=== PATIENT | female | born 1940 | race African-American/Black ===

== ENCOUNTER 2017-06-12 12:07 | Observation (INO) | payer OTHER ==
--- NOTE | 2017-06-12 12:40 | RAD REPORT ---
EXAM DESCRIPTION: RAD - Chest Single View - 06/12/2017 12:35 pm CLINICAL HISTORY: Difficulty breathing, shortness of breath COMPARISON: February 2017 TECHNIQUE: AP portable chest image was obtained 1224 hours . FINDINGS: Lung volumes are normal for portable imaging. Cardiac silhouette is enlarged since the bienvenido or study. Vasculature and lung markings have increased in prominence even when adjusting for differen kamaljit between AP and PA technique. Trachea is midline. No measurable pleural effusion and no pneumothor ax. No gross bony abnormality seen. No acute aortic findings suspected. IMPRESSION: Mild failure/ volume overload pattern.
[2017-06-12] MEDS ORDERED: FUROSEMIDE 40 MG/4 ML VIAL ONE (12:56)
[2017-06-12 12:57] LABS: Absolute Lymphocytes (CBC) 1.3 K/uL (0.7-4.9); Absolute Monocytes 1.2 K/uL (0.1-1.3); Absolute Neutrophil 6.7 K/uL (1.8-8.0); Basophils % 0.4 % (0-1.3); Eosinophils % 2.5 % (0-4.4); Hematocrit 31.5 % (36.0-45.0); Lymphocytes % 13.9 % (15.3-44.8); MCH 24.8 pg (27.0-35.0); MCV 80.3 fL (80-100); MPV 8.1 fL (7.6-11.3); Monocytes % 12.3 % (3.3-12.3); RBC Red Blood Cell Count 3.92 M/uL (3.86-4.86)
[2017-06-12 13:07] LABS: Protime INR 1.15
[2017-06-12 13:11] LABS: Potassium 4.2 mEq/L (3.6-5.0)
[2017-06-12 13:17] LABS: Albumin 3.6 g/dL (3.2-5.5); Bilirubin Direct 0.2 mg/dL (0-0.2); Bilirubin Total 0.5 mg/dL (0.3-1.2); Protein, Total 7.8 g/dL (6.0-8.3)
[2017-06-12 13:46] LABS: Urine Blood NEGATIVE (NEG); Urine Glucose NEGATIVE (NEG); Urine Protein NEGATIVE (NEG)
--- NOTE | 2017-06-12 14:50 | ER ---
Nurse's Notes [facility] Name: Gloria Longoria Age: 76 yrs Sex: Female : 1940 Arrival Date: 06/12/2017 Time: 12:10 Bed 4 Private MD: Diagnosis: Systolic (congestive) heart failure;Non-ST elevation (NSTEMI) myocardial infarction Presentation: 06/12 12:03 Presenting complaint: EMS states: dyspnea that started today. Diminished lung sounds to sv lower lobes. 93% RA, pt given A\T\A treatment, O2 sat up to 100%. waveform capnography-40. BP 149/70 HR 70s, RR-16 they were 20 on arrival. EKG-1st AVB. BS-159. 12:12 Transition of care: patient was not received from another setting of care. Onset of sv symptoms was June 12, 2017. Care prior to arrival: 1 IV attempted by EMS but unsuccessful. 12:12 Method Of Arrival: EMS: [facility] sv 12:12 Acuity: MALAIKA 2 sv Historical: - Allergies: 12:14 Sulfa (Sulfonamide Antibiotics); sv - PMHx: 12:14 CHF; colon cancer; Diabetes - IDDM; Hypertension; Pneumonia; sv - PSHx: 12:14 eye sx; Cholecystectomy; removed colon due to cancer; R eye; Hysterectomy; Appendectomy;sv - Immunization history:: Adult Immunizations up to date. - Social history:: The patient lives at home, Smoking status: Patient/guardian denies using tobacco. Screenin:15 Abuse screen: Denies threats or abuse. Denies injuries from another. Nutritional hb screening: No deficits noted. Tuberculosis screening: No symptoms or risk factors identified. Fall Risk Total Tinsley Fall Scale indicates Low Risk Score (25-44 pts). Fall prevention measures have been instituted. Side Rails Up X 2 Frequent Obs/Assesments occuring Family Present and informed to notify staff if they need to leave bedside As available Patient and Family Educated on Fall Prevention Program and strategies. Assessment: 12:10 General: Appears in no apparent distress. distressed, Behavior is cooperative, anxious. hb Pain: Denies pain. Neuro: Level of Consciousness is awake, alert, obeys commands, Oriented to person, place, time, situation. Cardiovascular: Heart tones S1 S2 present Capillary refill < 3 seconds Patient's skin is warm and dry. Rhythm is regular. Respiratory: Airway is patent Trachea midline Respiratory effort is even, labored, Respiratory pattern is regular, symmetrical, Breath sounds with crackles bilaterally. GI: No signs and/or symptoms were reported involving the gastrointestinal system. : No signs and/or symptoms were reported regarding the genitourinary system. EENT: No signs and/or symptoms were reported regarding the EENT system. Derm: No signs and/or symptoms reported regarding the dermatologic system. Skin is intact, is healthy with good turgor, Skin is pink, warm \T\ dry. Musculoskeletal: No signs and/or symptoms reported regarding the musculoskeletal system. 13:00 Reassessment: Patient appears in no apparent distress at this time. Patient and/or hb family updated on plan of care and expected duration. Pain level reassessed. Patient is alert, oriented x 3, equal unlabored respirations, skin warm/dry/pink. Patient denies pain at this time. Patient states symptoms have improved. 13:45 Reassessment: trop 0.77, Dr. Barry notified. Pt resting comfortably, denies pain. hb Family at bedside. 14:40 Reassessment: Patient appears in no apparent distress at this time. Patient and/or hb family updated on plan of care and expected duration. Pain level reassessed. Patient is alert, oriented x 3, equal unlabored respirations, skin warm/dry/pink. Patient denies pain at this time. 15:00 Reassessment: Patient appears in no apparent distress at this time. Patient and/or sv family updated on plan of care and expected duration. Pain level reassessed. Patient is alert, oriented x 3, equal unlabored respirations, skin warm/dry/pink. Pt up to the bedside commode. 15:21 Reassessment: Patient appears in no apparent distress at this time. Patient and/or sv family updated on plan of care and expected duration. Pain level reassessed. Patient is alert, oriented x 3, equal unlabored respirations, skin warm/dry/pink. Vital Signs: 12:14 BP 145 / 66; Pulse 75; Resp 20; Temp 98.7; Pulse Ox 87% on R/A; sv 13:00 BP 146 / 64; Pulse 72; Resp 19; Pulse Ox 96% on 2 lpm NC; hb 13:52 BP 149 / 61; Pulse 69; Resp 15; Pulse Ox 98% on 2 lpm NC; hb 14:41 BP 133 / 92; Pulse 72; Resp 17; Pulse Ox 96% on 2 lpm NC; hb 15:00 BP 134 / 51; Pulse 71; Resp 16; Pulse Ox 100% on 2 lpm NC; sv 12:14 Pt placed on O2 \T\ 2L per NC. O2 sat up to 94%. sv ED Course: 12:10 Patient arrived in ED. sv 12:10 Adan Barry MD is Attending Physician. gs 12:10 Esperanza Saenz, TEAGAN is Primary Nurse. sv 12:13 Triage completed. sv 12:15 Patient has correct armband on for positive identification. Placed in gown. Bed in low sv position. Call light in reach. Side rails up X2. piper helper on. Pulse ox on. NIBP on. Door closed. Head of bed elevated. 12:15 Arm band placed on right wrist. hb 12:16 Initial lab(s) drawn, by ED staff, sent to lab. Inserted saline lock: 20 gauge in left sv antecubital area, using aseptic technique. Blood collected. 12:34 X-ray completed. Portable x-ray completed in exam room. Patient tolerated procedure kp1 well. 13:33 Urine Dipstick--Ancillary (enter results) Sent. hb 14:25 Basic Metabolic Panel Sent. sv 14:25 BNP Sent. sv 14:25 CBC with Diff Sent. sv 14:25 LFT's Sent. sv 14:25 Magnesium Sent. sv 14:25 PT-INR Sent. sv 14:25 Troponin (emerg Dept Use Only) Sent. sv 14:25 XRAY Chest (1 view) Sent. sv 14:49 Rosas Singleton DO is Hospitalizing Provider. gs 15:35 No provider procedures requiring assistance completed. Patient admitted, IV remains in sv place. intact. 15:39 EKG done, by ED staff, reviewed by Adan Barry MD. ag Administered Medications: 12:40 Drug: Lasix 40 mg Route: IVP; Site: left antecubital; hb 14:25 Follow up: Response: No adverse reaction sv Point of Care Testing: Blood Glucose: 12:15 Blood Glucose: 141 mg/dL; sv Ranges: Output: 13:00 Urine: 1000ml (Voided); Total: 1000ml. sv Outcome: 14:50 Decision to Hospitalize by Provider. gs 15:38 Admitted to Tele accompanied by tech, family with patient, via stretcher, room 211, sv with oxygen, with chart, Report called to Margo CANDELARIA 15:38 Condition: stable 15:38 Instructed on the need for admit. 15:50 Patient left the ED. sv Signatures: Esperanza Saenz RN RN sv Maria Elena Harper Heather, RN RN Mireya Bates 1 Adan Barry MD MD gs Corrections: (The following items were deleted from the chart) 12:13 12:03 Presenting complaint: EMS states: dyspnea that started today. Diminished lung sv sounds to lower lobes. 93% RA, pt given A\T\A treatment, O2 sat up to 100%. waveform capnography-40. BP 149/70 HR 70s, RR-16 sv 12:16 12:03 Presenting complaint: EMS states: dyspnea that started today. Diminished lung sv sounds to lower lobes. 93% RA, pt given A\T\A treatment, O2 sat up to 100%. waveform capnography-40. BP 149/70 HR 70s, RR-16 they were 20 on arrival. EKG-1st AVB. sv
--- NOTE | 2017-06-12 14:50 | EDPHYS ---
Physician Documentation [facility] Name: Gloria Longoria Age: 76 yrs Sex: Female : 1940 Arrival Date: 06/12/2017 Time: 12:10 Bed 4 Private MD: ED Physician Adan Barry HPI: 06/12 14:41 This 76 yrs old Black Female presents to ER via EMS with complaints of Breathing gs Difficulty. 14:41 The patient has shortness of breath at rest. Onset: The symptoms/episode began/occurred gs yesterday, and became worse and became persistent. Duration: The symptoms are continuous. The patient's shortness of breath is aggravated by exertion. Associated signs and symptoms: Pertinent negatives: chest pain. Severity of symptoms: At their worst the symptoms were moderate in the emergency department the symptoms are unchanged. The patient has experienced similar episodes in the past, a few times. The patient has not recently seen a physician. Historical: - Allergies: 12:14 Sulfa (Sulfonamide Antibiotics); sv - PMHx: 12:14 CHF; colon cancer; Diabetes - IDDM; Hypertension; Pneumonia; sv - PSHx: 12:14 eye sx; Cholecystectomy; removed colon due to cancer; R eye; Hysterectomy; Appendectomy;sv - Immunization history:: Adult Immunizations up to date. - Social history:: The patient lives at home, Smoking status: Patient/guardian denies using tobacco. ROS: 14:41 All other systems are negative. gs Exam: 14:41 Head/Face: Normocephalic, atraumatic. Eyes: Pupils equal round and reactive to light, gs extra-ocular motions intact. Lids and lashes normal. Conjunctiva and sclera are non-icteric and not injected. Cornea within normal limits. Periorbital areas with no swelling, redness, or edema. ENT: Nares patent. No nasal discharge, no septal abnormalities noted. Tympanic membranes are normal and external auditory canals are clear. Oropharynx with no redness, swelling, or masses, exudates, or evidence of obstruction, uvula midline. Mucous membranes moist. Neck: Trachea midline, no thyromegaly or masses palpated, and no cervical lymphadenopathy. Supple, full range of motion without nuchal rigidity, or vertebral point tenderness. No Meningismus. Chest/axilla: Normal chest wall appearance and motion. Nontender with no deformity. No lesions are appreciated. 14:41 Abdomen/GI: Soft, non-tender, with normal bowel sounds. No distension or tympany. No guarding or rebound. No evidence of tenderness throughout. Back: No spinal tenderness. No costovertebral tenderness. Full range of motion. Skin: Warm, dry with normal turgor. Normal color with no rashes, no lesions, and no evidence of cellulitis. 14:41 Constitutional: The patient appears alert, awake. 14:41 Cardiovascular: Rate: normal, Rhythm: regular, Pulses: no pulse deficits are appreciated. 14:41 ECG was reviewed by the Attending Physician. 14:41 Respiratory: moderate respiratory distress is noted, Respirations: labored breathing, Breath sounds: rales, are located in both bases, decreased breath sounds, are located in both bases. 14:41 Musculoskeletal/extremity: Circulation is intact in all extremities. Edema, 1+ to the left midcalf and right midcalf is noted. 14:41 Skin: Exam negative for acute changes. 14:41 Neuro: Exam negative for acute changes, focal neuro deficits, motor deficits, sensory deficits. Vital Signs: 12:14 BP 145 / 66; Pulse 75; Resp 20; Temp 98.7; Pulse Ox 87% on R/A; sv 13:00 BP 146 / 64; Pulse 72; Resp 19; Pulse Ox 96% on 2 lpm NC; hb 13:52 BP 149 / 61; Pulse 69; Resp 15; Pulse Ox 98% on 2 lpm NC; hb 14:41 BP 133 / 92; Pulse 72; Resp 17; Pulse Ox 96% on 2 lpm NC; hb 15:00 BP 134 / 51; Pulse 71; Resp 16; Pulse Ox 100% on 2 lpm NC; sv 12:14 Pt placed on O2 \T\ 2L per NC. O2 sat up to 94%. sv MDM: 12:21 Patient medically screened. 14:41 Differential diagnosis: CHF exacerbation, Chronic Obstructive Pulmonary Disease gs Myocardial Infarction pneumonia. Data reviewed: vital signs, nurses notes, and as a result, I will admit patient. 14:53 ED course: prezas wants obs. 06/12 12:19 Order name: Glucose, Ancillary Testing; Complete Time: 12:20 EDAR 06/12 12:21 Order name: Basic Metabolic Panel 06/12 12:21 Order name: BNP 06/12 12:21 Order name: CBC with Diff 06/12 12:21 Order name: LFT's 06/12 12:21 Order name: Magnesium 06/12 12:21 Order name: PT-INR 06/12 12:21 Order name: Troponin (emerg Dept Use Only) 06/12 12:59 Order name: CBC with Automated Diff; Complete Time: 13:06 EDMS 06/12 13:11 Order name: Basic Metabolic Panel; Complete Time: 14:02 EDMS 06/12 13:14 Order name: Protime (+INR); Complete Time: 14:02 EDMS 06/12 13:17 Order name: Liver (Hepatic) Function; Complete Time: 14:02 EDMS 06/12 13:17 Order name: Magnesium; Complete Time: 14:02 EDMS 06/12 13:22 Order name: Urine Dipstick--Ancillary (enter results) 06/12 12:21 Order name: XRAY Chest (1 view) 06/12 12:21 Order name: EKG; Complete Time: 12:22 06/12 12:21 Order name: Cardiac monitoring; Complete Time: 12:27 06/12 12:21 Order name: EKG - Nurse/Tech; Complete Time: 13:33 06/12 12:21 Order name: IV Saline Lock; Complete Time: 12:27 06/12 12:21 Order name: Labs collected and sent; Complete Time: 12:27 06/12 12:21 Order name: O2 Per Protocol; Complete Time: 12:27 06/12 12:21 Order name: O2 Sat Monitoring; Complete Time: 12:27 06/12 12:21 Order name: Urine Dipstick-Ancillary (obtain specimen); Complete Time: 13:33 06/12 12:41 Order name: RAD; Complete Time: 13:06 EDAR 06/12 13:25 Order name: BNP B-Type Natriuretic Peptide; Complete Time: 14:02 EDAR 06/12 13:36 Order name: Troponin (Emerg Dept Use Only); Complete Time: 14:02 EDMS 06/12 13:46 Order name: Urine Dipstick-Ancillary; Complete Time: 14:02 EDMS EC:41 Rate is 75 beats/min. Rhythm is regular. MT interval is prolonged. QRS interval is gs normal. T waves are Normal. No ST changes noted. Clinical impression: NSR w/ Non-specific ST/T Changes. Interpreted by me. Administered Medications: 12:40 Drug: Lasix 40 mg Route: IVP; Site: left antecubital; 14:25 Follow up: Response: No adverse reaction sv Point of Care Testing: Blood Glucose: 12:15 Blood Glucose: 141 mg/dL; sv Ranges: Critical Glucose Levels:Adult <50 mg/dl or >400 mg/dl <40 mg/dl or >180 mg/dl Disposition: 14:41 Critical Care:. gs Disposition: 06/12/17 14:50 Hospitalization ordered by Rosas Singleton for Observation. Preliminary diagnosis are Systolic (congestive) heart failure, Non-ST elevation (NSTEMI) myocardial infarction. - Bed requested for Telemetry/MedSurg (observation). - Status is Observation. sv - Condition is Stable. - Problem is an acute exacerbation. - Symptoms have improved. UTI on Admission? No Critical care time excluding procedures: :41 Critical care time: Bedside Care: 10 minutes, Consultation: 10 minutes, Family gs Intervention: 10 minutes. Total time: 30 minutes Signatures: Dispatcher [employer] EDPaola Mireles Stephanie, RN RN sv Page, Corey, PA PA cp Baxter, Heather, TEAGAN CANDELARIA Adan Barry MD MD
[2017-06-12] MEDS ORDERED: D50W 25 GM/50 ML SYRINGE IV PRN (14:55)
[2017-06-12] MEDS ORDERED: ONDANSETRON 4 MG/2 ML VIAL IV PRN (14:55)
[2017-06-12] MEDS ORDERED: GLUCAGON 1 MG/VIAL IM PRN (14:55)
--- NOTE | 2017-06-12 15:09 | P.HP ---
Certification for Inpatient Patient admitted to: Observation With expected LOS: <2 Midnights Patient will require the following post-hospital care: Home Health Services Practitioner: I am a practitioner with admitting privileges, knowledge of patient current condition, hospital course, and medical plan of care. Services: Services provided to patient in accordance with Admission requirements found in Title 42 Section 412.3 of the Code of Federal Regulations Patient History Date of Service: 06/12/17 Primary Care Provider: Dr. Chaudhari; Cardiology-Dr. Murphy Reason for admission: Shortness of breath History of Present Illness: 76-year-old female presented with shortness of breath. Patient with past medical history of CHF, diastolic dysfunction, diabetes, hypertension, hyperlipidemia, and depression. Patient presented to the ER with shortness of breath. This started early this morning. She reported a mild cough with this. The shortness of breath persisted. Her daughter left to go to [employer]. When she got up to go to the bathroom her shortness of breath worsened. She denied any significant chest pain. No headaches, dizziness or syncope noted. Patient reports that she is taking her diuretic therapy. She is not on a fluid restriction at home. Patient came to the ER for further evaluation. In the ER the patient was evaluated. Blood pressure stable. She was slightly tachypneic. Room-air saturations were about 87%. On lab white count 9.5, hemoglobin 9.7. Sodium 140, potassium 4.2, creatinine 0.9 with a GFR 72. Magnesium 2.0. Initial troponin was elevated at 0.77. BNP slightly elevated at 239. Chest x-ray showed mild to moderate pulmonary edema. Previous lab and radiology reviewed. Her last echocardiogram done January showed his ejection fraction of 61%. She was treated for diastolic CHF at that time. In July of 2016 she had a stress test which showed no stress-induced ischemia. Due and findings the patient was admitted for further evaluation and treatment. When I saw the patient in the ER, she was resting comfortably. She denied any significant shortness of breath or chest pain at that time. She was on a nasal cannula. She does not smoke or drink. Allergies Sulfa (Sulfonamide Antibiotics) Allergy (Intermediate, Verified 11/21/15 00:47) Shortness of breath Home medications list reviewed: Yes Home Medications: Bimatoprost [Lumigan] 1 gtt LEFT EYE BID 12/29/12 Brimonidine Tartrate/Timolol [Combigan 0.2%-0.5% Eye Drops] 1 gtt LEFT EYE DAILY 12/29/12 Carvedilol 25 mg PO BID 12/29/12 Fluoxetine HCl [Prozac] 40 mg PO BEDTIME 12/29/12 Gabapentin [Neurontin*] 400 mg PO TID 12/29/12 Insulin Detemir [Levemir] 66 units SQ BEDTIME 12/29/12 Magnesium Oxide [Magnesium] 400 mg PO DAILY 12/29/12 Metformin HCl [Glucophage*] 1,000 mg PO BID 12/29/12 Omeprazole [Prilosec] 20 mg PO BID 12/29/12 Potassium Chloride [Micro-K] 10 meq PO Q12H 12/29/12 Simvastatin 20 mg PO BEDTIME 12/29/12 traMADol HCL [Ultram*] 50 mg PO TID PRN #90 tab 07/26/16 Aspirin [Aspirin EC 81 MG] 81 mg PO DAILY #30 tablet.dr 02/18/17 Furosemide [Lasix] 40 mg PO BIDL #60 tab 02/18/17 Guaifenesin [Mucinex] 600 mg PO BIDP PRN #20 tablet.er 02/18/17 Losartan Potassium 50 mg PO DAILY #30 tablet 02/18/17 - Past Medical/Surgical History Diabetic: Yes -: Glaucoma -: CHF, diastolic dysfunction -: HTN -: GERD -: DM Neuropathy -: History of Colon CA -: Diabetes mellitus type 2 -: Fatty liver with Morbid Obesity -: Cholecystectomy -: Colon resection -: Appendectomy -: Hysterectomy -: Right Rotator Cuff Repair -: Colectomy Psychosocial/ Personal History: She lives at home. Her daughter helps her at home. - Family History Mother -: Cancer Notes: colon - Social History Smoking Status: Never smoker Alcohol use: No CD- Drugs: No Caffeine use: Yes Place of Residence: Home Review of Systems General: Weakness, As per HPI Eyes: Unremarkable ENT: Unremarkable Respiratory: Shortness of Breath, SOB with Excertion, As per HPI Cardiovascular: Edema, Unremarkable Gastrointestinal: Unremarkable Genitourinary: Unremarkable Musculoskeletal: Unremarkable Integumentary: As per HPI Neurological: Weakness, As per HPI Lymphatics: Unremarkable Physical Examination - Physical Exam General: Alert, In no apparent distress, Oriented x3, Cooperative HEENT: Atraumatic, Normocephalic, Mucous membr. 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) Neck: Supple, No Thyromegaly Respiratory: Crackles/rales (To the bases bilateral) Cardiovascular: Normal pulses, Regular rate/rhythm Gastrointestinal: Normal bowel sounds, Soft and benign, Non-distended, No tenderness, No masses, No rebound, No guarding Musculoskeletal: No contractures, No erythema, No tenderness, No warmth Integumentary: No erythema, No warmth, No cyanosis, Tenderness/swelling (1+ pitting edema to the lower extremities bilateral below the knees) Neurological: Normal speech, Normal strength at 5/5 x4 extr, Normal tone, Normal affect Lymphatics: No axilla or inguinal lymphadenopathy - Studies Laboratory Data (last 24 hrs) 06/12/17 12:12: PT 13.6 H, INR 1.15 06/12/17 12:12: WBC 9.5, Hgb 9.7 L, Hct 31.5 L, Plt Count 292 06/12/17 12:12: B-Natriuretic Peptide 239 H 06/12/17 12:12: Sodium 140, Potassium 4.2, BUN 21 H, Creatinine 0.92, Glucose 144 H, Magnesium 2.0, Total Bilirubin 0.5, AST 27, ALT 20, Alkaline Phosphatase 124 H Assessment and Plan - Problems (Diagnosis) (1) CHF (congestive heart failure) Current Visit: Yes Status: Acute Plan: Acute on chronic diastolic CHF exacerbation noted. Previous echocardiogram done January showed ejection fraction of 61%. Pulmonary edema noted on chest x -ray. Will continue with Lasix and fluid restriction. Education on fluid restriction will be provided. Will recheck echocardiogram. Troponin elevated, suspect non ST wave MD. Cardiology has been consulted to further address. Will start Lovenox at 1 milligram/kilograms subcu twice daily. Will continue with aspirin. Will continue with her other medications for hypertension, diabetes, GERD and diabetic neuropathy. Will keep the patient NPO after midnight as cardiology may want to have in evaluation. I will turn the service over to Dr. Ojeda tomorrow. I will go over the plan of care with him. Qualifiers: Heart failure type: diastolic Heart failure chronicity: acute on chronic Qualified Code(s): I50.33 - Acute on chronic diastolic (congestive) heart failure (2) Elevated troponin Current Visit: Yes Status: Acute Plan: Will start Lovenox at 1 milligram/kilogram subcu twice daily. Will continue with aspirin. Will provide medication for blood pressure. Will monitor closely. Cardiology has been consulted. Will continue to monitor cardiac enzymes. Echo pending. (3) NSTEMI (non-ST elevated myocardial infarction) Current Visit: Yes Status: Suspected Plan: Troponin elevated. Cardiology consulted. Will continue with above plan of care. Patient medically stable at this time. (4) SOB (shortness of breath) Onset Date: 07/26/16 Current Visit: No Status: Acute Plan: Continue with above plan of care. (5) Anemia Current Visit: No Status: Chronic Plan: This is likely chronic disease. Will monitor closely. Qualifiers: Anemia type: other cause Other causes of anemia: chronic disease, other Qualified Code(s): D63.8 - Anemia in other chronic diseases classified elsewhere (6) Depression Current Visit: No Status: Chronic Plan: Will need to review and restart home medication Qualifiers: Depression Type: unspecified (7) Diabetes mellitus Current Visit: No Status: Chronic Plan: Will continue with basal insulin. Sliding scale started. Qualifiers: Diabetes mellitus type: type 2 Diabetes mellitus shelter insulin use: with ripsaw grader use Diabetes mellitus complication status: with other specified complication Qualified Code(s): E11.69 - Type 2 diabetes mellitus with other specified complication; Z79.4 - custodial (current) use of insulin; Z79.4 - doctor of veterinary medicine (current) use of insulin; Z79.4 - doctor of veterinary medicine (current) use of insulin; Z79.4 - custodial (current) use of insulin (8) Diabetic neuropathy Current Visit: No Status: Chronic Plan: Will continue with her medication Qualifiers: Diabetes mellitus type: type 2 Diabetes mellitus complication detail: diabetic polyneuropathy Qualified Code(s): E11.42 - Type 2 diabetes mellitus with diabetic polyneuropathy (9) GERD (gastroesophageal reflux disease) Current Visit: No Status: Chronic Plan: Will provide PPI. Qualifiers: (10) HTN (hypertension) Onset Date: 02/18/17 Current Visit: No Status: Chronic Plan: Will continue with carvedilol and losartan. Will monitor closely. Medications may need to be adjusted Qualifiers: Hypertension type: essential hypertension (11) Hyperlipidemia Current Visit: No Status: Chronic Plan: Will check fasting lipid panel. Will continue with statin medication Qualifiers: Hyperlipidemia type: unspecified Discharge Plan: Home Plan to discharge in: 48 Hours - Advance Directives Does patient have a Living Will: No Does patient have a Durable POA for Healthcare: No - Code Status/Comfort Care Code Status Assessed: Yes Time Spent Managing Pts Care (In Minutes): 55
[2017-06-12] MEDS ORDERED: MORPHINE 4 MG/ML SYR IV PRN (16:01)
[2017-06-12] MEDS ORDERED: NITROGLYCERIN 0.4 MG/TAB SL PRN (16:01)
[2017-06-12] MEDS ORDERED: HYDRALAZINE HCL 20 MG/ML VIAL IV PRN (16:23)
[2017-06-12] MEDS: INSULIN -REGULAR HUMAN 50 UNIT/0.5 ML ML SQ SCH ×2 (16:30→20:28)
[2017-06-12 17:20] VITALS: BMI 45.8
[2017-06-12] MEDS: CARVEDILOL 25 MG TAB PO SCH (17:33)
[2017-06-12] MEDS: FUROSEMIDE 40 MG/4 ML VIAL IV SCH (17:34)
[2017-06-12] MEDS: LOSARTAN POTASSIUM 50 MG TABLET PO SCH ×2 (17:34→20:19)
[2017-06-12] MEDS ORDERED: TRAMADOL HCL 50 MG TAB PO PRN (20:00)
[2017-06-12 20:08] LABS: CKMB Creatine Kinase MB 5.1 ng/ml (0.3-4.0)
[2017-06-12] MEDS: GABAPENTIN 300 MG CAP PO SCH (20:16)
[2017-06-12] MEDS: INSULIN DETEMIR 100 UNIT/1 ML INSULIN SQ SCH (20:18)
[2017-06-12] MEDS: ACETAMINOPHEN 500 MG TAB PO PRN (20:24)
[2017-06-12] MEDS: HOME MED 1 EA UNK (Fluticasone/Salmeterol [Advair 250-50 Diskus] 1 EACH) IH SCH (20:30)
[2017-06-12] MEDS: FLUOXETINE 20 MG CAP PO SCH (20:33)
[2017-06-12] MEDS ORDERED: GABAPENTIN 300 MG CAP PO SCH (21:00)
[2017-06-12] MEDS ORDERED: HOME MED 1 EA UNK (Potassium Chloride [Micro-K] 10 MEQ) PO SCH (21:00)
[2017-06-12] MEDS ORDERED: PNEUMOCOCCAL VACCINE 0.5 ML IMVAC ONE (21:00)
[2017-06-12] MEDS ORDERED: ATORVASTATIN 10 MG TAB PO SCH (21:00)
[2017-06-12] MEDS ORDERED: ATORVASTATIN 40 MG TAB PO SCH (21:00)
[2017-06-12] MEDS ORDERED: Enoxaparin 120 MG/0.8 ML SYR SQ SCH (21:00)
[2017-06-12] MEDS ORDERED: CARVEDILOL 25 MG TAB PO SCH (21:00)
--- NOTE | 2017-06-12 21:01 | CON ---
Chief Complaint: Tightness, pressure in the chest, shortness of breath. Reason For Cardiology Consult: Acute coronary syndrome. History Of Present Illness: Ms. Longoria is 76. She has obesity, hypertension, diabetes, dyslipidemi a. She does not use tobacco. She has had normal stress tests in the past. Never had a cardiac cath or coronary intervention or bypass surgery. She was coughing all night and this morning she suddenl y felt extremely weak, tired, heavy in the chest, very out of breath. It resolved after about 30 min utes. Came to the emergency room and since being here, has been found to have anemia with normal MCV , elevated troponins, blood sugars are 144 and 141, creatinine is 0.92. Ms. Longoria has all the risk factors for CAD except smoking. Many of her family members including her son have had coronary hear t disease with interventions. Medications: Outpatient medications are insulin, Prozac, metformin, gabapentin, carvedilol, potassiu m chloride, omeprazole, magnesium, oxide, simvastatin, tramadol, furosemide, losartan, Victoza, sever al different forms of insulin, Advair, Zetia, Flonase, flexeril, cetirizine, Tessalon Perles, azelast ine, amlodipine, albuterol, and promethazine. Allergies: SHE REPORTS DRUG INTOLERANCE TO SULFA ANTIBIOTICS. Social History: She uses no tobacco, no alcohol, no illegal drugs. Physical Examination: Vital Signs: Blood pressure is 187/85, pulse 78, temperature 97.2. Lungs: Clear. Heart: Reveals distant heart tones. No significant murmur. No rub. General: She is 5 feet 2 inches, 250 pounds. Extremities: Reveal palpable distal pulses. She has a normal Evgeny's test on both wrists. Diagnostic Data: Her electrocardiogram from today is not available for viewing. Old EKGs show an ol d anterolateral infarct, nonspecific ST abnormality. Impression: The patient has an unstable acute coronary syndrome. I have recommended cardiac cath to her. We will do that tomorrow. She will be n.p.o. We will withhold metformin, make sure we get he r blood pressure better before doing the test. She seems to understand the procedure, potential bene fits, indications, and risks, and agrees to proceed. EVELYN Voice ID: [id number] Report ID: [id number]
[2017-06-13 00:15] LABS: CKMB Creatine Kinase MB 2.6 ng/ml (0.3-4.0)
[2017-06-13 05:12] LABS: Absolute Lymphocytes (CBC) 1.3 K/uL (0.7-4.9); Absolute Monocytes 1.5 K/uL (0.1-1.3); Absolute Neutrophil 6.9 K/uL (1.8-8.0); Basophils % 0.4 % (0-1.3); Eosinophils % 1.8 % (0-4.4); Hematocrit 29.1 % (36.0-45.0); Lymphocytes % 13.6 % (15.3-44.8); MCH 24.9 pg (27.0-35.0); MCV 79.6 fL (80-100); MPV 8.2 fL (7.6-11.3); Monocytes % 14.8 % (3.3-12.3); RBC Red Blood Cell Count 3.65 M/uL (3.86-4.86)
[2017-06-13] MEDS: CARVEDILOL 25 MG TAB PO SCH ×2 (05:17→17:05)
[2017-06-13 05:42] LABS: Magnesium 1.9 mg/dL (1.8-2.5)
[2017-06-13] MEDS ORDERED: NA CHLORIDE 0.9% 1,000 ML ONE (05:46)
[2017-06-13] MEDS: PANTOPRAZOLE 40MG TABLET PO SCH (07:30)
[2017-06-13] MEDS: INSULIN -REGULAR HUMAN 50 UNIT/0.5 ML ML SQ SCH ×4 (08:37→20:17)
[2017-06-13] MEDS: LOSARTAN POTASSIUM 50 MG TABLET PO SCH ×2 (08:42→20:15)
[2017-06-13] MEDS: ASPIRIN EC 81 MG TAB PO SCH (08:42)
[2017-06-13] MEDS: HOME MED 1 EA UNK (Fluticasone/Salmeterol [Advair 250-50 Diskus] 1 EACH) IH SCH ×2 (08:42→20:24)
[2017-06-13] MEDS: FUROSEMIDE 40 MG TABLET PO SCH ×2 (08:43→17:17)
[2017-06-13] MEDS: POTASSIUM CL SA 10 MEQ TAB PO SCH ×2 (08:43→20:13)
[2017-06-13] MEDS: FUROSEMIDE 40 MG/4 ML VIAL IV SCH (08:43)
[2017-06-13] MEDS: AMLODIPINE 5 MG TAB PO SCH (08:44)
[2017-06-13] MEDS: HOME MED 1 EA UNK (Liraglutide [Victoza 2-Pak] 1.8 MG) SQ SCH (08:44)
[2017-06-13] MEDS: EZETIMIBE 10 MG TAB PO SCH (08:44)
[2017-06-13] MEDS: MAGNESIUM OXIDE 400 MG TAB PO SCH (08:44)
[2017-06-13] MEDS: GABAPENTIN 300 MG CAP PO SCH ×2 (08:44→20:14)
[2017-06-13] MEDS ORDERED: LOSARTAN POTASSIUM 50 MG TABLET PO SCH ×2 (09:00)
[2017-06-13] MEDS ORDERED: HEPARIN 5000 UNIT/ML 1 ML VIAL ONE (09:21)
[2017-06-13] MEDS ORDERED: MIDAZOLAM HCL 2 MG/2 ML INJ ONE (09:21)
[2017-06-13] MEDS ORDERED: NITROGLYCERIN/D5W 25 MG/250 ML BTL IV ONE (09:22)
[2017-06-13] MEDS ORDERED: NA CHLORIDE 0.9% 50 ML ONE (09:22)
[2017-06-13] MEDS ORDERED: NICARDIPINE HCL 25 MG/10 ML IV ONE (09:22)
[2017-06-13] MEDS ORDERED: ATROPINE SULF 1 MG/10 ML SYR IV ONE (09:22)
[2017-06-13] MEDS ORDERED: FENTANYL CITR 100 MCG/2 ML ONE (09:22)
[2017-06-13] MEDS ORDERED: NA CHLORIDE 0.9% 500 ML ONE (09:41)
[2017-06-13] MEDS ORDERED: PRASUGREL (EFFIENT) 10 MG TAB ONE (10:53)
--- NOTE | 2017-06-13 11:11 | EKG ---
Test Date: 2017-06-12 Test Time: 14:08:44 Vp Scientific Affairs: ESTEPHANIA MEASUREMENT RESULTS: Intervals: Rate: 75 NV: 208 QRSD: 78 QT: 418 QTc: 466 [place]: P: 35 NV: 208 QRS: 13 T: 143 INTERPRETIVE STATEMENTS: Normal sinus rhythm ST & T wave abnormality, consider lateral ischemia Abnormal ECG Compared to ECG 02/17/2017 19:35:52 ST (T wave) deviation now present Possible ischemia now present Myocardial infarct finding no longer present T-wave abnormality no longer present Electronically Signed On 06-13-17 11:10:11 CDT by Antonio Murphy
[2017-06-13] MEDS ORDERED: INSULIN -REGULAR HUMAN 50 UNIT/0.5 ML ML ONE (12:44)
[2017-06-13] MEDS: ACETAMINOPHEN 500 MG TAB PO PRN (13:43)
--- NOTE | 2017-06-13 14:52 | P.PN ---
Subjective Date of Service: 06/13/17 Primary Care Provider: Dr. Chaudhari; Cardiology-Dr. Murphy Chief Complaint: Shortness of breath The patient underwent a stent placement without complication and she is free from chest pain today Physical Examination - Vital Signs Temperature: 98.4 F Blood Pressure: 143/65 Pulse: 69 Respirations: 22 Pulse Ox (%): 97 - Physical Exam General: Alert, In no apparent distress HEENT: Atraumatic, PERRLA, EOMI Neck: Supple, JVD not distended Respiratory: Clear to auscultation bilaterally, Normal air movement Cardiovascular: Regular rate/rhythm, Normal S1 S2 Gastrointestinal: Normal bowel sounds, No tenderness Musculoskeletal: No tenderness Integumentary: No rashes Neurological: Normal speech, Normal tone, Normal affect Lymphatics: No axilla or inguinal lymphadenopathy - Studies Medications List Reviewed: Yes Assessment And Plan - Current Problems (Diagnosis) (1) NSTEMI (non-ST elevated myocardial infarction) Onset Date: 06/13/17 Current Visit: Yes Status: Acute (2) CHF (congestive heart failure) Onset Date: 06/13/17 Current Visit: Yes Status: Acute Qualifiers: Heart failure type: diastolic Heart failure chronicity: acute on chronic Qualified Code(s): I50.33 - Acute on chronic diastolic (congestive) heart failure (3) SOB (shortness of breath) Onset Date: 06/13/17 Current Visit: Yes Status: Acute (4) Anemia Onset Date: 06/13/17 Current Visit: Yes Status: Chronic Qualifiers: Anemia type: other cause Other causes of anemia: chronic disease, other Qualified Code(s): D63.8 - Anemia in other chronic diseases classified elsewhere (5) Depression Onset Date: 06/13/17 Current Visit: Yes Status: Chronic Qualifiers: Depression Type: unspecified (6) Diabetes mellitus Onset Date: 06/13/17 Current Visit: Yes Status: Chronic Qualifiers: Diabetes mellitus type: type 2 Diabetes mellitus [facility] insulin use: with intermodal dispatcher use Diabetes mellitus complication status: with other specified complication Qualified Code(s): E11.69 - Type 2 diabetes mellitus with other specified complication; Z79.4 - watermaster (current) use of insulin; Z79.4 - watermaster (current) use of insulin; Z79.4 - watermaster (current) use of insulin; Z79.4 - watermaster (current) use of insulin (7) Diabetic neuropathy Onset Date: 06/13/17 Current Visit: Yes Status: Chronic Qualifiers: Diabetes mellitus type: type 2 Diabetes mellitus complication detail: diabetic polyneuropathy Qualified Code(s): E11.42 - Type 2 diabetes mellitus with diabetic polyneuropathy (8) GERD (gastroesophageal reflux disease) Onset Date: 06/13/17 Current Visit: Yes Status: Chronic Qualifiers: (9) HTN (hypertension) Onset Date: 02/18/17 Current Visit: Yes Status: Chronic Qualifiers: Hypertension type: essential hypertension (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
[2017-06-13] MEDS: FLUOXETINE 20 MG CAP PO SCH (20:14)
[2017-06-13] MEDS: INSULIN DETEMIR 100 UNIT/1 ML INSULIN SQ SCH (20:17)
[2017-06-13] MEDS ORDERED: ATORVASTATIN 80 MG TAB PO SCH (21:00)
[2017-06-13 21:14] VITALS: O2SAT 98
--- NOTE | 2017-06-13 21:25 | OP ---
Surgeon: Antonio Murphy MD Procedures: Left heart catheterization, coronary left ventricular angiography, and percutaneous john nary intervention. The stent placed in the mid LAD. Successful stenting for unstable angina. Findings: The patient has normal ejection fraction, mildly elevated left ventricular end-diastolic p ressure. She has a 70-80% mid RCA lesion. The circumflex is free of any significant disease. The L AD has mild diffuse distal disease, but a mid 99% stenosis. Left ventricular end-diastolic pressure 15. After we stented, the 99% stenosis had no residual stenosis, with ZAINA grade 3 flow, successful PCI, and our plan is to administer high dose statin with Lipitor 80 mg and Zetia, 81 mg of aspirin an d 10 mg of Effient daily along with losartan and beta blockers. We will do a stress test before we d ecide to initiate a stent on the right coronary lesion and that is an option for the future. Procedure In Detail: The patient had a non-ST elevation ND. Troponins went up almost to 1. I think the highest was 0.77. Her EKG showed no ST elevation. Diffuse repolarization changes that were nons pecific. She was brought to the cardiac hatchery laborer in a fasting state, sedated with Versed and fentany l. Right radial approach was used. She was prepared and draped in the usual sterile fashion. Right radial artery area was anesthetized with 1% lidocaine. The artery was entered using a 21-gauge need le. We used a needle to advance a 0.021 inch radial guidewire. We used a guidewire to place a 6-[facility] Terumo radial sheath in place. As soon as it was in place, we flushed the sheath and gave the ra dial cocktail containing nicardipine, heparin, and nitroglycerin. We were able to use a TIG catheter , guided to the ascending aorta using a Glidewire with a short radius J-tip. We angiogram left ventr icle, right coronary, left coronary with this catheter. Decision was made to angioplasty the mid LAD, so we took the TIG catheter out over an exchange length J-wire. We administered Angiomax, demonstra clemente an adequate activated clotting time, was out of range. We used the exchange length J-wire to hel p guide a Ikari left 4.0 with side holes into the ascending aorta, engaged the left main. We used e Anish coronary guidewire to cross the lesion. We pre-dilated the lesion with a 2.5 x 15 emerge ba lloon up to 6 atmospheres. We then placed a 2.75 x 16 Synergy stent, inflated to 10 atmospheres, deep throating was required at the guide to get adequate support. At the end of the procedure, angiogram s were excellent, ZAINA grade 3 flow, 0% residual stenosis. The guide catheter was removed over a J-w chris. A TR band was flushed and removed and as for the sheath was flushed and removed and the arterio kristal was closed with a TR band. Estimated Blood Loss: 10 cc. Complications: None. DONTE/MODStephen Voice ID: [id number] Report ID: [id number]
[2017-06-14] MEDS: ACETAMINOPHEN 500 MG TAB PO PRN (04:13)
[2017-06-14 05:16] LABS: Absolute Lymphocytes (CBC) 1.2 K/uL (0.7-4.9); Absolute Monocytes 1.2 K/uL (0.1-1.3); Absolute Neutrophil 5.6 K/uL (1.8-8.0); Basophils % 0.4 % (0-1.3); Eosinophils % 2.4 % (0-4.4); Hematocrit 27.8 % (36.0-45.0); Lymphocytes % 14.8 % (15.3-44.8); MCH 25.4 pg (27.0-35.0); MCV 79.5 fL (80-100); Monocytes % 14.9 % (3.3-12.3); RBC Red Blood Cell Count 3.49 M/uL (3.86-4.86)
[2017-06-14] MEDS: CARVEDILOL 25 MG TAB PO SCH (05:44)
[2017-06-14 06:01] LABS: Magnesium 1.9 mg/dL (1.8-2.5); Potassium 4.3 mEq/L (3.6-5.0); Protein, Total 6.3 g/dL (6.0-8.3)
[2017-06-14] MEDS: HOME MED 1 EA UNK (Fluticasone/Salmeterol [Advair 250-50 Diskus] 1 EACH) IH SCH (08:22)
[2017-06-14] MEDS: HOME MED 1 EA UNK (Liraglutide [Victoza 2-Pak] 1.8 MG) SQ SCH (08:23)
[2017-06-14] MEDS: LOSARTAN POTASSIUM 50 MG TABLET PO SCH (09:00)
[2017-06-14] MEDS ORDERED: PRASUGREL (EFFIENT) 10 MG TAB PO SCH (09:00)
[2017-06-14] MEDS: POTASSIUM CL SA 10 MEQ TAB PO SCH (09:09)
[2017-06-14] MEDS: PANTOPRAZOLE 40MG TABLET PO SCH (09:10)
[2017-06-14] MEDS: MAGNESIUM OXIDE 400 MG TAB PO SCH (09:10)
[2017-06-14] MEDS: GABAPENTIN 300 MG CAP PO SCH (09:10)
[2017-06-14] MEDS: ASPIRIN EC 81 MG TAB PO SCH (09:10)
[2017-06-14] MEDS: EZETIMIBE 10 MG TAB PO SCH (09:10)
[2017-06-14] MEDS: AMLODIPINE 5 MG TAB PO SCH (09:10)
[2017-06-14] MEDS: FUROSEMIDE 40 MG TABLET PO SCH (09:11)
[2017-06-14] MEDS: INSULIN -REGULAR HUMAN 50 UNIT/0.5 ML ML SQ SCH ×2 (09:11→11:29)
[2017-06-14 12:12] VITALS: BP 136/63; TEMP 99.1
--- NOTE | 2017-06-14 15:21 | P.DS ---
Admission Date: 06/14/17 Discharge Date: 06/14/17 Primary Care Provider: Dr. Chaudhari; Cardiology-Dr. Murphy Disposition: ROUTINE DISCHARGE Discharge Condition: FAIR Reason for Admission: Shortness of breath - Problems (1) NSTEMI (non-ST elevated myocardial infarction) Onset Date: 06/13/17 Current Visit: Yes Status: Acute (2) CHF (congestive heart failure) Onset Date: 06/13/17 Current Visit: Yes Status: Acute Qualifiers: Heart failure type: diastolic Heart failure chronicity: acute on chronic Qualified Code(s): I50.33 - Acute on chronic diastolic (congestive) heart failure (3) SOB (shortness of breath) Onset Date: 06/13/17 Current Visit: Yes Status: Acute (4) Anemia Onset Date: 06/13/17 Current Visit: Yes Status: Chronic Qualifiers: Anemia type: other cause Other causes of anemia: chronic disease, other Qualified Code(s): D63.8 - Anemia in other chronic diseases classified elsewhere (5) Depression Onset Date: 06/13/17 Current Visit: Yes Status: Chronic Qualifiers: Depression Type: unspecified (6) Diabetes mellitus Onset Date: 06/13/17 Current Visit: Yes Status: Chronic Qualifiers: Diabetes mellitus type: type 2 Diabetes mellitus regulatory compliance specialist insulin use: with regulatory compliance specialist use Diabetes mellitus complication status: with other specified complication Qualified Code(s): E11.69 - Type 2 diabetes mellitus with other specified complication; Z79.4 - solar business developer (current) use of insulin; Z79.4 - residential (current) use of insulin; Z79.4 - residential (current) use of insulin; Z79.4 - solar business developer (current) use of insulin (7) Diabetic neuropathy Onset Date: 06/13/17 Current Visit: Yes Status: Chronic Qualifiers: Diabetes mellitus type: type 2 Diabetes mellitus complication detail: diabetic polyneuropathy Qualified Code(s): E11.42 - Type 2 diabetes mellitus with diabetic polyneuropathy (8) GERD (gastroesophageal reflux disease) Onset Date: 06/13/17 Current Visit: Yes Status: Chronic Qualifiers: (9) HTN (hypertension) Onset Date: 02/18/17 Current Visit: Yes Status: Chronic Qualifiers: Hypertension type: essential hypertension (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 Patient with past medical history of CHF, diastolic dysfunction, diabetes, hypertension, hyperlipidemia, and depression. Patient presented to the ER with shortness of breath. This started early this morning. She reported a mild cough with this. The shortness of breath persisted. Her daughter left to go to rastafarian. When she got up to go to the bathroom her shortness of breath worsened. She denied any significant chest pain. No headaches, dizziness or syncope noted. Patient reports that she is taking her diuretic therapy. She is not on a fluid restriction at home. Patient came to the ER for further evaluation. In the ER the patient was evaluated. Blood pressure stable. She was slightly tachypneic. Room-air saturations were about 87%. On lab white count 9.5, hemoglobin 9.7. Sodium 140, potassium 4.2, creatinine 0.9 with a GFR 72. Magnesium 2.0. Initial troponin was elevated at 0.77. BNP slightly elevated at 239. Chest x-ray showed mild to moderate pulmonary edema. Previous lab and radiology reviewed. Her last echocardiogram done January showed his ejection fraction of 61%. She was treated for diastolic CHF at that time. In July of 2016 she had a stress test which showed no stress-induced ischemia. Due and findings the patient was admitted for further evaluation and treatment. When I saw the patient in the ER, she was resting comfortably. She denied any significant shortness of breath or chest pain at that time. She was on a nasal cannula. She does not smoke or drink. Hospital Course: The patient with admitted hospital and she underwent cardiac catheterization which demonstrate coronary artery disease and she underwent stent placement without complication. She had no more chest pain after procedure and she is discharged home in stable condition Vital Signs/Physical Exam: Temp Pulse Resp BP Pulse Ox 99.1 F 77 18 136/63 95 06/14/17 12:00 06/14/17 12:06/14/17 12:06/14/17 12:00 06/14/17 12:00 General: Alert, In no apparent distress HEENT: Atraumatic, PERRLA, EOMI Neck: Supple, JVD not distended Respiratory: Clear to auscultation bilaterally, Normal air movement Cardiovascular: Regular rate/rhythm, Normal S1 S2 Gastrointestinal: Normal bowel sounds, No tenderness Musculoskeletal: No tenderness Integumentary: No rashes Neurological: Normal speech, Normal tone, Normal affect Lymphatics: No axilla or inguinal lymphadenopathy Laboratory Data at Discharge: WBC 8.4 K/uL (4.3-10.9) D 06/14/17 04:43 Hgb 8.9 g/dL (12.0-15.0) L 06/14/17 04:43 Hct 27.8 % (36.0-45.0) L 06/14/17 04:43 Plt Count 254 K/uL (152-406) 06/14/17 04:43 PT 13.6 SECONDS (9.5-12.5) H 06/12/17 12:12 INR 1.15 06/12/17 12:12 Sodium 136 mEq/L (135-145) 06/14/17 04:43 Potassium 4.3 mEq/L (3.6-5.0) 06/14/17 04:43 BUN 17 mg/dL (6-20) 06/14/17 04:43 Creatinine 0.93 mg/dL (0.44-1.00) 06/14/17 04:43 Glucose 271 mg/dL (65-120) H 06/14/17 04:43 Magnesium 1.9 mg/dL (1.8-2.5) 06/14/17 04:43 Total Bilirubin 1.0 mg/dL (0.3-1.2) 06/14/17 04:43 AST 16 IU/L (10-42) 06/14/17 04:43 ALT 14 IU/L (10-60) 06/14/17 04:43 Alkaline Phosphatase 117 IU/L (42-121) 06/14/17 04:43 Troponin I 0.45 ng/mL (<0.03) H* 06/13/17 04:43 B-Natriuretic Peptide 239 pg/ml (<=100) H 06/12/17 12:12 Triglycerides 154 mg/dL (35-160) 06/13/17 04:43 Cholesterol 77 mg/dL (<200) 06/13/17 04:43 HDL Cholesterol 22 mg/dL (29-89) L 06/13/17 04:43 Cholesterol/HDL Ratio 3.50 06/13/17 04:43 Home Medications: Carvedilol 25 mg PO BID 12/29/12 Fluoxetine HCl [Prozac] 40 mg PO BEDTIME 12/29/12 Gabapentin [Neurontin*] 600 mg PO TID 12/29/12 Insulin Detemir [Levemir] 66 units SQ BEDTIME 12/29/12 Magnesium Oxide [Magnesium] 400 mg PO DAILY 12/29/12 Metformin HCl [Glucophage*] 1,000 mg PO BID 12/29/12 Potassium Chloride [Micro-K] 10 meq PO BID 12/29/12 Simvastatin 20 mg PO BEDTIME 12/29/12 traMADol HCL [Ultram*] 50 mg PO TID PRN #90 tab 07/26/16 Furosemide [Lasix*] 40 mg PO BIDL #60 tab 02/18/17 Albuterol Sulfate [Proair Respiclick] 90 mcg IH Q4H PRN 06/12/17 Amlodipine Besylate [Norvasc] 5 mg PO DAILY 06/12/17 Azelastine [Astelin 137MCG/Metered [place]*] 2 sprays NS BID 06/12/17 Benzonatate [Tessalon Perle*] 200 mg PO TID 06/12/17 Cetirizine HCl [Zyrtec*] 10 mg PO DAILY 06/12/17 Cyclobenzaprine [Flexeril*] 5 mg PO TID PRN 06/12/17 Ezetimibe [Zetia*] 10 mg PO DAILY 06/12/17 Fluticasone [Flonase 50MCG Nasal [place]*] 2 sprays NS DAILY 06/12/17 Fluticasone/Salmeterol [Advair 250-50 Diskus] 1 each IH BID 06/12/17 Insulin Aspart Protam & Aspart [Novolog Mix 70-30 Flexpen Syrn] 50 unit SQ DAILY AT SUPPER 06/12/17 Insulin Aspart Protam & Aspart [Novolog Mix 70-30 Flexpen Syrn] 80 unit SQ BREAKFAST 06/12/17 Liraglutide [Victoza 2-Ken] 1.8 mg SQ DAILY 06/12/17 Promethazine HCl 12.5 mg PO Q8H PRN 06/12/17 Bimatoprost [Lumigan] 0.01 drop LEFT EYE BID 06/14/17 Brimonidine Tartrate/Timolol [Combigan 0.2%-0.5% Eye Drops] 5 drop LEFT EYE DAILY 06/14/17 Carvedilol [Coreg] 25 mg PO BID 6AM 6PM #60 tablet 06/14/17 Losartan Potassium [Cozaar] 50 mg PO BID #60 tablet 06/14/17 Nitroglycerin 0.4 mg SL PRN #60 tab.subl 06/14/17 Pantoprazole [Protonix Tab*] 40 mg PO ACB #30 tab 06/14/17 Prasugrel Hydrochloride [Effient] 10 mg PO DAILY #30 tab 06/14/17 New Medications: Carvedilol [Coreg] 25 mg PO BID 6AM 6PM #60 tablet Losartan Potassium [Cozaar] 50 mg PO BID #60 tablet Nitroglycerin 0.4 mg SL PRN #60 tab.subl Pantoprazole [Protonix Tab*] 40 mg PO ACB #30 tab Prasugrel Hydrochloride [Effient] 10 mg PO DAILY #30 tab Activity: Ad emma Followup: Antonio Murphy MD [ACTIVE - CAN ADMIT] - 1 Week (Call for appointment) Time spent managing pt's care (in minutes): 35
--- NOTE | 2017-06-14 22:03 | PN ---
Date of Progress Note: 06/14/2017 Subjective: The patient was seen in followup on 06/14/2017. The patient is status post LAD stent by Dr. Murphy on 06/13/2017 with right wrist access. The patient has no issues with the right wrist. No hematoma. Good distal pulses in the radial artery. Has no complaint overnight. Objective: Vital Signs: Stable. She was afebrile. She had normal sinus rhythm on telemetry. Assessment And Plan: She can go home on her home medications to include Effient 10 mg daily and Lipi tor 80 mg daily. She will see Dr. Murphy in the office in 2 weeks. ALYSHA/GEORGETTE Voice ID: [id number] Report ID: [id number]
== END 2017-06-14 15:44 | disposition home or self-care (01) ==
LOC: ER 12:07 → ERHOLD 14:55 → 2ND 15:39 → INTOOBSV 06-14 08:11 → OBSVTOIN 06-14 08:11
PROVIDERS: ADMIT Family Medicine; ATTEND Family Medicine
PROC: 4A023N7 Measurement of Cardiac Sampling and Pressure, Left Heart, Percutaneous Approach (ICD-10-PCS; principal; 2017-06-13)
PROC: B201YZZ Plain Radiography of Multiple Coronary Arteries using Other Contrast (ICD-10-PCS; 2017-06-13)
PROC: B205YZZ Plain Radiography of Left Heart using Other Contrast (ICD-10-PCS; 2017-06-13)
PROC: 027034Z Dilation of Coronary Artery, One Artery with Drug-eluting Intraluminal Device, Percutaneous Approach (ICD-10-PCS; 2017-06-13)
DX: I21.4 Non-ST elevation (NSTEMI) myocardial infarction (principal); I25.110 Atherosclerotic heart disease of native coronary artery with unstable angina pectoris; I11.0 Hypertensive heart disease with heart failure; I50.33 Acute on chronic diastolic (congestive) heart failure; K21.9 Gastro-esophageal reflux disease without esophagitis; H44.519 Absolute glaucoma, unspecified eye; Z79.4 Long term (current) use of insulin; E11.42 Type 2 diabetes mellitus with diabetic polyneuropathy; F32.9 Major depressive disorder, single episode, unspecified; D64.9 Anemia, unspecified; J96.11 Chronic respiratory failure with hypoxia; Z88.2 Allergy status to sulfonamides
CPT/HCPCS: 36415 ×2; 71045; 80048 ×2; 80053; 80061; 80076; 81003; 82550 ×3; 82553 ×3; 82962 ×9; 83735 ×3; 83880; 84484 ×4; 85025 ×3; 85347; 85610; 93005; 93458; 96374; 99285; C1725; C1893; C9600; G0378 ×2; J0583; J1644; J1650; J2250; J3010; J7030

== ENCOUNTER 2017-06-15 13:22 | Observation (INO) | payer OTHER ==
[2017-06-15 15:13] LABS: Absolute Lymphocytes (CBC) 1.2 K/uL (0.7-4.9); Absolute Monocytes 1.3 K/uL (0.1-1.3); Absolute Neutrophil 6.6 K/uL (1.8-8.0); Basophils % 0.4 % (0-1.3); Eosinophils % 2.3 % (0-4.4); Hematocrit 29.1 % (36.0-45.0); MCH 24.2 pg (27.0-35.0); MPV 8.1 fL (7.6-11.3); RBC Red Blood Cell Count 3.64 M/uL (3.86-4.86)
[2017-06-15] MEDS ORDERED: NA CHLORIDE 0.9% 1,000 ML ONE (15:20)
--- NOTE | 2017-06-15 15:21 | EKG ---
Test Date: 2017-06-15 Test Time: 14:30:07 Administrative Assistant Receptionist: KAN MEASUREMENT RESULTS: Intervals: Rate: 69 MA: 224 QRSD: 84 QT: 422 QTc: 452 [place]: P: 47 MA: 224 QRS: 14 T: 159 INTERPRETIVE STATEMENTS: Sinus rhythm with 1st degree AV block T wave abnormality, consider lateral ischemia Abnormal ECG Compared to ECG 06/12/2017 14:08:44 no significant change from previous ECG Electronically Signed On 06-15-17 15:20:28 CDT by Antonio Murphy
[2017-06-15 15:26] LABS: Protime INR 1.17
[2017-06-15 15:30] LABS: Potassium 4.4 mEq/L (3.6-5.0)
[2017-06-15 15:38] LABS: Albumin 3.3 g/dL (3.2-5.5); Bilirubin Direct 0.2 mg/dL (0-0.2); Bilirubin Total 0.6 mg/dL (0.3-1.2); Magnesium 2.1 mg/dL (1.8-2.5); Protein, Total 7.4 g/dL (6.0-8.3)
[2017-06-15 15:41] LABS: CKMB Creatine Kinase MB 1.4 ng/ml (0.3-4.0)
--- NOTE | 2017-06-15 16:26 | ER ---
Nurse's Notes [facility] Name: Gloria Longoria Age: 76 yrs Sex: Female : 1940 Arrival Date: 06/15/2017 Time: 13:22 Bed 16 Private MD: Diagnosis: Other chest pain;Essential (primary) hypertension;Type 1 diabetes mellitus;Anemia, unspecified;Obesity, unspecified;Unspecified combined systolic (congestive) and diastolic (congestive) heart failure Presentation: 06/15 13:28 Presenting complaint: EMS states: Pt called for breathing difficulty, pt recently ph placed on home oxygen at 2L and EMS found that tank was out of oxygen, Spo2 94% RA., pt requested to come to ED because she was afraid to go all weekend w/out o2. Fingerstick BGL 564, pt hx of cardiac stent placement on Tuesday for 99% blockage. Transition of care: patient was not received from another setting of care. Onset of symptoms was June 15, 2017. Care prior to arrival: Glucose check: 564 Oxygen administered. via nasal cannula. 13:28 Method Of Arrival: EMS: [facility] ph 13:28 Acuity: MALAIKA 3 ph Historical: - Allergies: 13:37 Sulfa (Sulfonamide Antibiotics); ph - Home Meds: 13:37 amlodipine 5 mg tab 1 tab once daily [Active]; azelastine 137 mcg (0.1 %) nasal spra ph [Active]; carvedilol 25 mg Oral tab [Active]; Combigan 0.2-0.5 % ophthalmic drop [Active]; ezetimibe Oral [Active]; fluoxetine 40 mg Oral cap [Active]; furosemide 40 mg Oral tab [Active]; gabapentin Oral [Active]; Klor-Con 10 Oral [Active]; Levemir FlexTouch 100 unit/mL (3 mL) subcutaneous inpn [Active]; losartan-hydrochlorothiazide 100-12.5 mg Oral tab [Active]; Lumigan 0.01 % ophthalmic drop [Active]; metformin 1,000 mg Oral tab [Active]; Novolog Sub-Q [Active]; omeprazole 40 mg Oral cpDR 1 cap once daily [Active]; Simvastatin Oral [Active]; tramadol 50 mg Oral tab [Active]; - PMHx: 13:37 CHF; colon cancer; Diabetes - IDDM; Hypertension; Pneumonia; ph - PSHx: 13:37 eye sx; Cholecystectomy; removed colon due to cancer; R eye; Hysterectomy; ph Appendectomy; cardiac stent; - Immunization history:: Adult Immunizations up to date. - Social history:: Smoking status: Patient/guardian denies using tobacco. - Family history:: not pertinent. Screenin:37 Abuse screen: Denies threats or abuse. Denies injuries from another. Nutritional ph screening: No deficits noted. Tuberculosis screening: No symptoms or risk factors identified. Fall Risk No fall in past 12 months (0 pts). No secondary diagnosis (0 pts). IV access (20 points). Ambulatory Aid- None/Bed Rest/Nurse Assist (0 pts). Gait- Normal/Bed Rest/Wheelchair (0 pts) Mental Status- Oriented to own ability (0 pts). Total Tinsley Fall Scale indicates No Risk (0-24 pts). Assessment: 13:30 General: Appears in no apparent distress. comfortable, obese, well groomed, Behavior is ph calm, cooperative, appropriate for age, Denies fever. Pain: Denies pain. Neuro: Level of Consciousness is awake, alert, obeys commands, Oriented to person, place, time, situation. Cardiovascular: Reports shortness of breath, since [employer] Denies chest pain, nausea, palpitations, vomiting, Capillary refill < 3 seconds Patient's skin is warm and dry. Respiratory: Reports shortness of breath [employer], reports that oxygen tank was empty Airway is patent Respiratory effort is even, unlabored, Respiratory pattern is regular, symmetrical, Breath sounds are clear bilaterally. GI: No signs and/or symptoms were reported involving the gastrointestinal system. Derm: Skin is healthy with good turgor, Skin is pink, warm \\T\\ dry. Musculoskeletal: Circulation, motion, and sensation intact. Range of motion: intact in all extremities. 15:19 Reassessment: Patient appears in no apparent distress at this time. Patient and/or ph family updated on plan of care and expected duration. Pain level reassessed. Patient is alert, oriented x 3, equal unlabored respirations, skin warm/dry/pink. Pt resting quietly, awaiting lab results, family at bedside. 16:30 Reassessment: Patient appears in no apparent distress at this time. Patient and/or ph family updated on plan of care and expected duration. Pain level reassessed. Patient is alert, oriented x 3, equal unlabored respirations, skin warm/dry/pink. Pt resting quietly, denies pain at this time, awaiting room assignment. 17:06 Reassessment: Patient appears in no apparent distress at this time. Patient and/or ph family updated on plan of care and expected duration. Pain level reassessed. Patient is alert, oriented x 3, equal unlabored respirations, skin warm/dry/pink. Pt up to bedside commode to urinate, pt refused Valle, explained to pt that she would be up and down frequently to urinate because she would be receiving a diuretic, pt states," I had that same medicine last time I was here and I just got up to the bedside commode down here and then I used the restroom in my room when I went upstairs." Urine sample obtained, pt resting quietly at this time, awaiting room assignment, family at bedside. 18:00 Reassessment: Patient appears in no apparent distress at this time. Patient and/or ph family updated on plan of care and expected duration. Pain level reassessed. Patient is alert, oriented x 3, equal unlabored respirations, skin warm/dry/pink. Report called to TEAGAN Mckenzie, pt waiting to be taken to inpatient room. Vital Signs: 13:32 BP 140 / 56; Pulse 69; Resp 20; Temp 97.7(TE); Pulse Ox 94% on 2 lpm NC; Weight 106.59 ph kg; Height 5 ft. 2 in. (157.48 cm); Pain 0/10; 15:15 BP 131 / 53; Pulse 68; Resp 18; Pulse Ox 99% on 2 lpm NC; ph 16:49 BP 145 / 70; Pulse 64; Resp 18; Pulse Ox 98% on 2 lpm NC; Pain 0/10; ph 17:44 BP 147 / 64; Pulse 67; Resp 18; Temp 97.8(TE); Pulse Ox 98% on 2 lpm NC; Pain 0/10; ph 13:32 Body Mass Index 42.98 (106.59 kg, 157.48 cm) ph ED Course: 13:22 Patient arrived in ED. ph 13:22 Dionne Barnett, TEAGAN is Primary Nurse. ph 13:32 Triage completed. ph 13:33 Arm band placed on. ph 13:38 Patient has correct armband on for positive identification. Bed in low position. Call ph light in reach. Side rails up X 1. Pulse ox on. NIBP on. Warm blanket given. 14:24 Initial lab(s) drawn, by me, held in ED. Inserted saline lock: 22 gauge in right mh5 antecubital area, using aseptic technique. Blood collected. 14:26 infiltrated line d"cd. mh5 14:29 Harris Black MD is Attending Physician. gino 14:35 EKG done, by heating and cooling technician. reviewed by Harris Black MD. vh 15:16 Missed attempt(s): 22 gauge in left antecubital area. Bleeding controlled, band aid ph applied, catheter tip intact. 15:34 Notified ED physician of a critical lab result(s). Glucose 409. ss 16:15 X-ray completed. Portable x-ray completed in exam room. Patient tolerated procedure kc2 well. 16:16 XRAY Chest (1 view) In Process Unspecified. EDMS 16:20 Inserted saline lock: 24 gauge in right upper arm, using aseptic technique. ph 16:24 Harvey Ojeda MD is Hospitalizing Provider. gino 16:35 First set of blood cultures drawn Second set of blood cultures drawn by me. [facility] 16:45 Inserted saline lock: 22 gauge in right antecubital area, using aseptic technique. ph 17:09 No provider procedures requiring assistance completed. Patient admitted, IV remains in ph place. 17:18 Urine collected: clean catch specimen, clear. [facility] 17:19 Blood Culture Adult (2) Sent. 5 Administered Medications: 16:36 Not Given (Duplicate Order): NS 0.9% 1000 ml IV at 75 ml/hr continuous gino 16:47 Drug: Insulin Regular Human 10 units {Co-Signature: [email or web address] (Kandy Huerta RN).} Route: ph IVP; Site: left antecubital; 17:30 Follow up: Response: No adverse reaction; Blood sugar is lowered ph 16:48 Drug: Insulin Regular Human 10 units {Co-Signature: aj1 (Kandy Huerta RN).} Route: ph Sub-Q; Site: left upper arm; 17:30 Follow up: Response: No adverse reaction; Blood sugar is lowered ph 17:32 Drug: Lasix 40 mg Route: IVP; Site: left antecubital; ph 17:45 Follow up: Response: No adverse reaction ph Point of Care Testing: Blood Glucose: 14:25 Blood Glucose: 401 mg/dL; mh5 15:15 Blood Glucose: 361 mg/dL; ph Ranges: Outcome: 16:26 Decision to Hospitalize by Provider. gino 18:25 Admitted to Tele accompanied by tech, family with patient, via stretcher, with oxygen, ph with chart. 18:25 Condition: stable 18:25 Instructed on the need for admit. 18:49 Patient left the ED. ph Signatures: Dispatcher [employer] Harris Nelson MD MD cha Smirch, Shelby, RN RN Kim Day Patricia, RN RN ph Carr, Kelsie kc2 Martinez, Maria [facility] Kandy Huerta RN aj1
--- NOTE | 2017-06-15 16:26 | EDPHYS ---
Physician Documentation [facility] Name: Gloria Longoria Age: 76 yrs Sex: Female : 1940 Arrival Date: 06/15/2017 Time: 13:22 Bed 16 Private MD: ED Physician Harris Black HPI: 06/15 16:04 This 76 yrs old Black Female presents to ER via EMS with complaints of sob and out of gino oxygen at home. 16:04 The patient has shortness of breath at rest. Onset: The symptoms/episode began/occurred gino today. Duration: The symptoms are continuous, and are unchanged since they started. The patient's shortness of breath has no apparent modifying factors. on home o2. Associated signs and symptoms: The patient has no apparent associated signs or symptoms. Severity of symptoms: At their worst the symptoms were mild in the emergency department the symptoms are unchanged. The patient has experienced similar episodes in the past, a few times. Historical: - Allergies: 13:37 Sulfa (Sulfonamide Antibiotics); ph - Home Meds: 13:37 amlodipine 5 mg tab 1 tab once daily [Active]; azelastine 137 mcg (0.1 %) nasal spra ph [Active]; carvedilol 25 mg Oral tab [Active]; Combigan 0.2-0.5 % ophthalmic drop [Active]; ezetimibe Oral [Active]; fluoxetine 40 mg Oral cap [Active]; furosemide 40 mg Oral tab [Active]; gabapentin Oral [Active]; Klor-Con 10 Oral [Active]; Levemir FlexTouch 100 unit/mL (3 mL) subcutaneous inpn [Active]; losartan-hydrochlorothiazide 100-12.5 mg Oral tab [Active]; Lumigan 0.01 % ophthalmic drop [Active]; metformin 1,000 mg Oral tab [Active]; Novolog Sub-Q [Active]; omeprazole 40 mg Oral cpDR 1 cap once daily [Active]; Simvastatin Oral [Active]; tramadol 50 mg Oral tab [Active]; - PMHx: 13:37 CHF; colon cancer; Diabetes - IDDM; Hypertension; Pneumonia; ph - PSHx: 13:37 eye sx; Cholecystectomy; removed colon due to cancer; R eye; Hysterectomy; ph Appendectomy; cardiac stent; - Immunization history:: Adult Immunizations up to date. - Social history:: Smoking status: Patient/guardian denies using tobacco. - Family history:: not pertinent. ROS: 16:04 Constitutional: Negative for fever, chills, and weight loss, Eyes: Negative for injury, gino pain, redness, and discharge, ENT: Negative for injury, pain, and discharge, Neck: Negative for injury, pain, and swelling, Cardiovascular: Negative for chest pain, palpitations, and edema, Abdomen/GI: Negative for abdominal pain, nausea, vomiting, diarrhea, and constipation, Back: Negative for injury and pain, : Negative for injury, bleeding, discharge, and swelling, MS/Extremity: Negative for injury and deformity, Skin: Negative for injury, rash, and discoloration, Neuro: Negative for headache, weakness, numbness, tingling, and seizure, Psych: Negative for depression, anxiety, suicide ideation, homicidal ideation, and hallucinations, Allergy/Immunology: Negative for hives, rash, and allergies, Endocrine: Negative for neck swelling, polydipsia, polyuria, polyphagia, and marked weight changes, Hematologic/Lymphatic: Negative for swollen nodes, abnormal bleeding, and unusual bruising. 16:04 Respiratory: Positive for cough, with no reported sputum. Exam: 16:04 Constitutional: This is a well developed, well nourished patient who is awake, alert, gino and in no acute distress. Head/Face: Normocephalic, atraumatic. Eyes: Pupils equal round and reactive to light, extra-ocular motions intact. Lids and lashes normal. Conjunctiva and sclera are non-icteric and not injected. Cornea within normal limits. Periorbital areas with no swelling, redness, or edema. ENT: Nares patent. No nasal discharge, no septal abnormalities noted. Tympanic membranes are normal and external auditory canals are clear. Oropharynx with no redness, swelling, or masses, exudates, or evidence of obstruction, uvula midline. Mucous membranes moist. Neck: Trachea midline, no thyromegaly or masses palpated, and no cervical lymphadenopathy. Supple, full range of motion without nuchal rigidity, or vertebral point tenderness. No Meningismus. Chest/axilla: Normal chest wall appearance and motion. Nontender with no deformity. No lesions are appreciated. Cardiovascular: Regular rate and rhythm with a normal S1 and S2. No gallops, murmurs, or rubs. Normal PMI, no JVD. No pulse deficits. Abdomen/GI: Soft, non-tender, with normal bowel sounds. No distension or tympany. No guarding or rebound. No evidence of tenderness throughout. Back: No spinal tenderness. No costovertebral tenderness. Full range of motion. Female : Normal external genitalia. Skin: Warm, dry with normal turgor. Normal color with no rashes, no lesions, and no evidence of cellulitis. MS/ Extremity: Pulses equal, no cyanosis. Neurovascular intact. Full, normal range of motion. Neuro: Awake and alert, GCS 15, oriented to person, place, time, and situation. Cranial nerves II-XII grossly intact. Motor strength 5/5 in all extremities. Sensory grossly intact. Cerebellar exam normal. Normal gait. Psych: Awake, alert, with orientation to person, place and time. Behavior, mood, and affect are within normal limits. 16:04 Respiratory: mild respiratory distress is noted, Respirations: normal, Breath sounds: are clear throughout, no bronchial sounds, no decreased breath sounds, no rales, rhonchi, no stridor, no wheezing. Vital Signs: 13:32 BP 140 / 56; Pulse 69; Resp 20; Temp 97.7(TE); Pulse Ox 94% on 2 lpm NC; Weight 106.59 ph kg; Height 5 ft. 2 in. (157.48 cm); Pain 0/10; 15:15 BP 131 / 53; Pulse 68; Resp 18; Pulse Ox 99% on 2 lpm NC; ph 16:49 BP 145 / 70; Pulse 64; Resp 18; Pulse Ox 98% on 2 lpm NC; Pain 0/10; ph 17:44 BP 147 / 64; Pulse 67; Resp 18; Temp 97.8(TE); Pulse Ox 98% on 2 lpm NC; Pain 0/10; ph 13:32 Body Mass Index 42.98 (106.59 kg, 157.48 cm) ph MDM: 14:29 Patient medically screened. [facility] 16:27 Data reviewed: vital signs, nurses notes, lab test result(s), EKG, radiologic studies, gino plain films. 06/15 14:31 Order name: Basic Metabolic Panel; Complete Time: 16:08 [facility]TN 06/15 14:31 Order name: BNP B-Type Natriuretic Peptide; Complete Time: 16:08 [facility] 06/15 14:31 Order name: CBC with Automated Diff; Complete Time: 16:08 [facility] 06/15 14:31 Order name: CKMB Creatine Kinase MB; Complete Time: 16:08 [facility] 06/15 14:31 Order name: Creatine Phosphokinase; Complete Time: 16:08 [facility] 06/15 14:31 Order name: Liver (Hepatic) Function; Complete Time: 16:08 [facility] 06/15 14:31 Order name: Magnesium; Complete Time: 16:08 [facility] 06/15 14:31 Order name: Protime (+INR); Complete Time: 16:08 [facility] 06/15 14:31 Order name: PTT, Activated Partial Thromb; Complete Time: 16:08 [facility] 06/15 14:31 Order name: Troponin (Emerg Dept Use Only); Complete Time: 16:08 [facility] 06/15 14:35 Order name: Blood Culture Adult (2) [facility] 06/15 14:35 Order name: Urine Culture [facility] 06/15 14:55 Order name: XRAY Chest (1 view); Complete Time: 16:35 ph 06/15 16:13 Order name: Type And Screen [facility] 06/15 17:39 Order name: Urine Dipstick--Ancillary (enter results) 06/15 17:45 Order name: Urine Dipstick-Ancillary [facility] 06/15 14:19 Order name: EKG; Complete Time: 16:04 ph 06/15 14:19 Order name: Cardiac monitoring; Complete Time: 14:47 ph 06/15 14:19 Order name: IV Saline Lock; Complete Time: 16:46 ph 06/15 14:19 Order name: Labs collected and sent; Complete Time: 14:55 ph 06/15 14:19 Order name: O2 Per Protocol; Complete Time: 14:47 ph 06/15 14:19 Order name: O2 Sat Monitoring; Complete Time: 14:47 ph 06/15 14:31 Order name: EKG Electrocardiogram [facility] 06/15 14:55 Order name: EKG - Nurse/Tech; Complete Time: 16:48 ph 06/15 16:36 Order name: CONS Physician Consult [facility] 06/15 17:05 Order name: Labs - recollect needed; Complete Time: 17:32 bd Administered Medications: 16:36 Not Given (Duplicate Order): NS 0.9% 1000 ml IV at 75 ml/hr continuous gino 16:47 Drug: Insulin Regular Human 10 units {Co-Signature: [email or web address] (Kandy Huerta RN).} Route: ph IVP; Site: left antecubital; 17:30 Follow up: Response: No adverse reaction; Blood sugar is lowered ph 16:48 Drug: Insulin Regular Human 10 units {Co-Signature: aj1 (Kandy Huerta RN).} Route: ph Sub-Q; Site: left upper arm; 17:30 Follow up: Response: No adverse reaction; Blood sugar is lowered ph 17:32 Drug: Lasix 40 mg Route: IVP; Site: left antecubital; ph 17:45 Follow up: Response: No adverse reaction ph Point of Care Testing: Blood Glucose: 14:25 Blood Glucose: 401 mg/dL; mh5 15:15 Blood Glucose: 361 mg/dL; ph Ranges: Critical Glucose Levels:Adult <50 mg/dl or >400 mg/dl <40 mg/dl or >180 mg/dl Disposition: 06/15/17 16:26 Hospitalization ordered by Harvey Ojeda for Inpatient Admission. Preliminary diagnosis are Other chest pain, Essential (primary) hypertension, Type 1 diabetes mellitus, Anemia, unspecified, Obesity, unspecified, Unspecified combined systolic (congestive) and diastolic (congestive) heart failure. - Bed requested for Telemetry/MedSurg (Inpatient). - Status is Inpatient Admission. ph - Condition is Fair. - Problem is new. - Symptoms have improved. UTI on Admission? No Signatures: Dispatcher [employer] EDPaola Mireles Diana, RN RN dw Anderson, Corey, MD MD cha Hall, Patricia, RN RN Kandy Huerta RN aj1 Corrections: (The following items were deleted from the chart) 16:15 16:04 PROTIME (+INR)+COAG.LAB.BRZ ordered. EDMS EDMS 16:15 16:04 PTT, ACTIVATED+COAG.LAB.BRZ ordered. EDMS EDMS 16:15 16:04 TROPONIN (EMERG DEPT USE ONLY)+C.LAB.BRZ ordered. EDMS EDMS 16:16 16:04 BASIC METABOLIC PANEL+C.LAB.BRZ ordered. EDMS EDMS 16:16 16:04 CBC+H.LAB.BRZ ordered. EDMS EDMS 16:16 16:04 CKMB+C.LAB.BRZ ordered. EDMS EDMS 16:16 16:04 CREATINE PHOSPHOKINASE+C.LAB.BRZ ordered. EDMS EDMS 16:16 16:04 HEPATIC FUNCTION+C.LAB.BRZ ordered. EDMS EDMS 16:16 16:04 MAGNESIUM+C.LAB.BRZ ordered. EDMS EDMS 16:16 16:04 LIPASE+C.LAB.BRZ ordered. EDMS EDMS 16:17 16:04 BNP+C.LAB.BRZ ordered. EDMS EDMS
--- NOTE | 2017-06-15 16:30 | RAD REPORT ---
EXAM DESCRIPTION: RAD - Chest Single View - 06/15/2017 4:17 pm CLINICAL HISTORY: Difficulty breathing. COMPARISON: 06/12/2017, 02/18/2017 FINDINGS: Portable technique limits examination quality. Moderate bilateral pulmonary opacities are present likely representing pulmonary edema or less likely pneumonia. The heart is mildly enlarged size. No displaced fractures. IMPRESSION: Moderate CHF/ volume overload pattern is suspected.
[2017-06-15] MEDS ORDERED: SODIUM CHLORIDE 0.9% 10ML INJ IV PRN (16:31)
[2017-06-15] MEDS ORDERED: GLUCAGON 1 MG/VIAL IM PRN ×2 (16:34)
[2017-06-15] MEDS ORDERED: D50W 25 GM/50 ML SYRINGE IV PRN ×2 (16:34)
[2017-06-15] MEDS ORDERED: INSULIN -REGULAR HUMAN 50 UNIT/0.5 ML ML ONE (16:55)
[2017-06-15] MEDS ORDERED: NA CHLORIDE 0.9% 1,000 ML IV SCH (17:00)
[2017-06-15] MEDS ORDERED: FUROSEMIDE 40 MG/4 ML VIAL ONE (17:21)
[2017-06-15 17:45] LABS: Urine Blood NEGATIVE (NEG); Urine Glucose 2+ (NEG); Urine Protein 1+ (NEG); Urine Specific Gravity 1.015 (1.005-1.030); Urine pH 5.5 (5.0-7.0)
[2017-06-15] MEDS ORDERED: FUROSEMIDE 20 MG/ 2ML VIAL ONE (17:59)
--- NOTE | 2017-06-15 18:17 | P.HP ---
Certification for Inpatient Patient admitted to: Observation With expected LOS: <2 Midnights Patient will require the following post-hospital care: None Practitioner: I am a practitioner with admitting privileges, knowledge of patient current condition, hospital course, and medical plan of care. Services: Services provided to patient in accordance with Admission requirements found in Title 42 Section 412.3 of the Code of Federal Regulations Patient History Date of Service: 06/15/17 Reason for admission: SOB History of Present Illness: 76 y/o female with HTN CHF diastolic and CDA s/p stent placement 4 days ago and she was discharged yesterday in stable condition. However she developed more SOB and went back to ER. She has no chest pain. No fever. Allergies Sulfa (Sulfonamide Antibiotics) Allergy (Intermediate, Verified 11/21/15 00:47) Shortness of breath Home Medications: Gabapentin [Neurontin*] 600 mg PO TID 12/29/12 Insulin Detemir [Levemir] 66 units SQ BEDTIME 12/29/12 Magnesium Oxide [Magnesium] 400 mg PO DAILY 12/29/12 Metformin HCl [Glucophage*] 1,000 mg PO BID 12/29/12 Potassium Chloride [Micro-K] 10 meq PO BID 12/29/12 Simvastatin 20 mg PO BEDTIME 12/29/12 traMADol HCL [Ultram*] 50 mg PO TID PRN #90 tab 07/26/16 Furosemide [Lasix*] 40 mg PO BIDL #60 tab 02/18/17 Albuterol Sulfate [Proair Respiclick] 90 mcg IH Q4H PRN 06/12/17 Amlodipine Besylate [Norvasc] 5 mg PO DAILY 06/12/17 Azelastine [Astelin 137MCG/Metered [place]*] 2 sprays NS BID 06/12/17 Benzonatate [Tessalon Perle*] 200 mg PO TID 06/12/17 Cetirizine HCl [Zyrtec*] 10 mg PO DAILY 06/12/17 Cyclobenzaprine [Flexeril*] 5 mg PO TID PRN 06/12/17 Ezetimibe [Zetia*] 10 mg PO DAILY 06/12/17 Fluticasone [Flonase 50MCG Nasal [place]*] 1 sprays NS BID 06/12/17 Fluticasone/Salmeterol [Advair 250-50 Diskus] 1 each IH BID 06/12/17 Insulin Aspart Protam & Aspart [Novolog Mix 70-30 Flexpen Syrn] 50 unit SQ DAILY AT SUPPER 06/12/17 Insulin Aspart Protam & Aspart [Novolog Mix 70-30 Flexpen Syrn] 80 unit SQ BREAKFAST 06/12/17 Liraglutide [Victoza 2-Ken] 1.8 mg SQ DAILY 06/12/17 Promethazine HCl 12.5 mg PO Q8H PRN 06/12/17 Bimatoprost [Lumigan] 0.01 drop LEFT EYE BID 06/14/17 Brimonidine Tartrate/Timolol [Combigan 0.2%-0.5% Eye Drops] 5 drop LEFT EYE DAILY 06/14/17 Carvedilol [Coreg] 25 mg PO BID 6AM 6PM #60 tablet 06/14/17 Losartan Potassium [Cozaar] 50 mg PO BID #60 tablet 06/14/17 Nitroglycerin 0.4 mg SL PRN #60 tab.subl 06/14/17 Pantoprazole [Protonix Tab*] 40 mg PO ACB #30 tab 06/14/17 Prasugrel Hydrochloride [Effient] 10 mg PO DAILY #30 tab 06/14/17 Fluoxetine HCl [Prozac] 1 tab PO BEDTIME 06/15/17 - Past Medical/Surgical History Diabetic: Yes -: Glaucoma -: CHF, diastolic dysfunction -: HTN -: GERD -: DM Neuropathy -: History of Colon CA -: Diabetes mellitus type 2 -: Fatty liver with Morbid Obesity -: Cholecystectomy -: Colon resection -: Appendectomy -: Hysterectomy -: Right Rotator Cuff Repair -: Colectomy Psychosocial/ Personal History: She lives at home. Her daughter helps her at home. - Family History Mother -: Cancer Notes: colon Brother -: Hypertension Sister -: Hypertension - Social History Alcohol use: No CD- Drugs: No Caffeine use: Yes Review of Systems 10-point ROS is otherwise unremarkable Physical Examination - Physical Exam General: Alert, In no apparent distress HEENT: Atraumatic, PERRLA, Mucous membr. moist/pink, EOMI, Sclerae nonicteric Neck: Supple, 2+ carotid pulse no bruit, No LAD, Without JVD or thyroid abnormality Respiratory: Clear to auscultation bilaterally, Normal air movement Cardiovascular: Regular rate/rhythm, Normal S1 S2 Gastrointestinal: Normal bowel sounds, No tenderness Musculoskeletal: No tenderness Integumentary: No rashes Neurological: Normal gait, Normal speech, Normal strength at 5/5 x4 extr, Normal tone, Normal affect Lymphatics: No axilla or inguinal lymphadenopathy - Studies Laboratory Data (last 24 hrs) 06/15/17 14:19: PT Cancelled, INR Cancelled, APTT Cancelled 06/15/17 14:19: WBC Cancelled, Hgb Cancelled, Hct Cancelled, Plt Count Cancelled 06/15/17 14:19: B-Natriuretic Peptide Cancelled 06/15/17 14:19: Sodium Cancelled, Potassium Cancelled, BUN Cancelled, Creatinine Cancelled, Glucose Cancelled, Magnesium Cancelled, Total Bilirubin Cancelled, AST Cancelled, ALT Cancelled, Alkaline Phosphatase Cancelled, Lipase Cancelled 06/15/17 14:15: B-Natriuretic Peptide 395 H 06/15/17 14:15: Sodium 133 L, Potassium 4.4, BUN 20, Creatinine 1.13 H, Glucose 409 H* 06/15/17 14:15: Magnesium 2.1, Total Bilirubin 0.6, AST 22, ALT 16, Alkaline Phosphatase 122 H 06/15/17 14:15: PT 13.8 H, INR 1.17, APTT 25.1 06/15/17 14:15: WBC 9.4, Hgb 8.8 L, Hct 29.1 L, Plt Count 293 Assessment and Plan - Problems (Diagnosis) (1) Acute on chronic diastolic (congestive) heart failure Onset Date: 02/18/17 Current Visit: No Status: Acute (2) CHF (congestive heart failure) Onset Date: 06/13/17 Current Visit: No Status: Acute Qualifiers: (3) Diabetes Current Visit: No Status: Acute Qualifiers: Diabetes mellitus type: type 2 Diabetes mellitus watermaster insulin use: with watermaster use Diabetes mellitus complication status: with ophthalmic complications Diabetes mellitus complication detail: with diabetic retinopathy Diabetic retinopathy severity: with mild nonproliferative retinopathy Diabetes mellitus macular edema: with macular edema Laterality: bilateral Qualified Code(s): 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, bilateral; Z79.4 - long-term (current) use of insulin; Z79.4 - assistant terminal manager (current) use of insulin; Z79.4 - long-term (current) use of insulin; Z79.4 - long-term (current) use of insulin (4) Elevated troponin Onset Date: 06/13/17 Current Visit: Yes Status: Chronic (5) SOB (shortness of breath) Onset Date: 07/26/16 Current Visit: Yes Status: Acute (6) GERD (gastroesophageal reflux disease) Onset Date: 06/13/17 Current Visit: Yes Status: Chronic Qualifiers: (7) HTN (hypertension) Onset Date: 02/18/17 Current Visit: Yes Status: Chronic Qualifiers: Hypertension type: essential hypertension (8) Hyperlipidemia Onset Date: 06/13/17 Current Visit: Yes Status: Chronic Qualifiers: Hyperlipidemia type: unspecified (9) COPD (chronic obstructive pulmonary disease) Current Visit: Yes Status: Chronic Qualifiers: COPD type: unspecified COPD Qualified Code(s): J44.9 - Chronic obstructive pulmonary disease, unspecified - Plan --Nebs --IV Lasix --Resume Home meds --O2 - Advance Directives Does patient have a Living Will: No Does patient have a Durable POA for Healthcare: No
[2017-06-15 18:48] VITALS: BMI 43.9
[2017-06-15] MEDS: ENOXAPARIN 40 MG/0.4 ML SQ SCH (19:30)
[2017-06-15] MEDS: CARVEDILOL 25 MG TAB PO SCH (19:30)
[2017-06-15] MEDS: ALBUTEROL 2.5 MG/3 ML NEB SOL NEB SCH (19:47)
[2017-06-15] MEDS: IPRATROPIUM BROM 0.5MG/2.5ML NEB SCH (19:47)
[2017-06-15] MEDS: POTASSIUM CL SA 10 MEQ TAB PO SCH (20:45)
[2017-06-15] MEDS: INSULIN -REGULAR HUMAN 50 UNIT/0.5 ML ML SQ SCH ×2 (20:52→21:44)
[2017-06-15] MEDS: FUROSEMIDE 20 MG/ 2ML VIAL IV SCH (21:45)
[2017-06-15] MEDS: GABAPENTIN 300 MG CAP PO SCH (23:20)
[2017-06-16] MEDS: IPRATROPIUM BROM 0.5MG/2.5ML NEB SCH ×4 (01:31→20:44)
[2017-06-16] MEDS: ALBUTEROL 2.5 MG/3 ML NEB SOL NEB SCH ×4 (01:31→20:44)
[2017-06-16] MEDS: CARVEDILOL 25 MG TAB PO SCH ×2 (05:08→17:30)
[2017-06-16] MEDS ORDERED: PNEUMOCOCCAL VACCINE 0.5 ML IMVAC ONE (08:00)
[2017-06-16] MEDS: INSULIN -REGULAR HUMAN 50 UNIT/0.5 ML ML SQ SCH ×4 (08:22→21:06)
[2017-06-16] MEDS: INSULIN DETEMIR 100 UNIT/1 ML INSULIN SQ SCH (08:23)
[2017-06-16] MEDS: POTASSIUM CL SA 10 MEQ TAB PO SCH ×2 (08:24→21:03)
[2017-06-16] MEDS: PANTOPRAZOLE 40 MG INJ IVP SCH (08:25)
[2017-06-16] MEDS: FUROSEMIDE 20 MG/ 2ML VIAL IV SCH ×3 (08:25→21:05)
[2017-06-16] MEDS: ENOXAPARIN 40 MG/0.4 ML SQ SCH (08:25)
[2017-06-16] MEDS: ASPIRIN 81 MG CHEWABLE TABLET PO SCH (08:25)
--- NOTE | 2017-06-16 11:46 | CON ---
Date of Consultation: 06/16/2017 Reason For Consultation: Congestive heart failure. History Of Present Illness: Ms. Longoria is a 76-year-old black woman. She was just discharged the d ay before for recent episode of CHF, CAD status post LAD stent by Dr. Murphy. She comes back with sh ortness of breath. No chest pain. Denied any nausea or vomiting or diaphoresis, but had PND orthopn ea and some mild pedal edema. Chest x-ray showed congestive heart failure. She was admitted for fur ther evaluation and treatment. The patient was supposed to go home on oxygen according to her, but s he does not have any home oxygen. She has a history of severe COPD. Past Medical History: Also includes history of hypertension, diabetes, dyslipidemia, colon cancer, p revious pneumonia as well as chronic diastolic congestive heart failure. Allergies: SHE IS ALLERGIC TO SULFA. Review of Systems: Negative. Social History: Negative. Family History: Negative. Medications At Home: Include Norvasc, Coreg, Zetia, Effient, Lasix, insulin, Zocor, and metformin. Physical Examination: General: When I saw her, she was in no acute distress. She has diuresed significantly since I saw h er. She is obese. HEENT: Negative. Neck: Supple without any lymphadenopathy, JVD, or thyromegaly. Chest: Reveals rales bilateral bilaterally. Cardiac: Reveals a regular rhythm and rate with an S4 gallop, but no murmurs or rubs. Abdomen: Obese, but benign. Extremities: Revealed 1+ edema. Diagnostic Data: Chest x-ray shows congestive heart failure. EKG showed nonspecific changes. Echoc ardiogram recently showed normal ejection fraction with decreased left ventricular compliance. Her h emoglobin was 8.8, creatinine is 1.13,. Glucose was 409. Impression: 1.Acute exacerbation of chronic diastolic congestive heart failure. 2.Chronic obstructive pulmonary disease. 3.Recent coronary artery disease, status post left anterior descending artery stent. 4.Diabetes, poorly controlled. 5.Hypertension, poorly controlled. 6.Dyslipidemia. 7.History of colon cancer, cured. 8.History of pneumonia. 9.Renal insufficiency. 10.Mild anemia. Plan: I think the patient needs to have aggressive diuresis,, aggressive blood pressure control, and aggressive diabetes control. She does not need to have any repeat cardiac testing. This is not rel ated to her coronary artery disease. I think it is mostly her pulmonary status or diastolic dysfunct ion, may be some noncompliance with her regimen. She should definitely be able to go home in the nex t day or two after aggressive blood pressure and sugar control as well as diuresis. She is definitel y on appropriate therapy with Norvasc, Coreg, and Lasix from a cardiovascular standpoint. She is als o on aspirin and Effient. We may have to send her home on a higher dose of Lasix. Considering her r enal insufficiency, we should avoid HIRA inhibitors and ARBs as well as Aldactone, especially consider ing she has diastolic dysfunction. ALYSHA/GEORGETTE Voice ID: [id number] Report ID: [id number]
[2017-06-16] MEDS: PRASUGREL (EFFIENT) 10 MG TAB PO SCH (12:04)
[2017-06-16] MEDS: GUAIFENESIN/DM 5 ML UCUP PO PRN (13:50)
--- NOTE | 2017-06-16 17:32 | P.PN ---
Subjective Date of Service: 06/16/17 Chief Complaint: SOB The patient feel better today and with better breathing and no chest pain Physical Examination - Vital Signs Temperature: 97.6 F Blood Pressure: 132/55 Pulse: 71 Respirations: 18 Pulse Ox (%): 99 - Physical Exam General: Alert, In no apparent distress HEENT: Atraumatic, PERRLA, EOMI Neck: Supple, JVD not distended Respiratory: Clear to auscultation bilaterally, Normal air movement Cardiovascular: Regular rate/rhythm, Normal S1 S2 Gastrointestinal: Normal bowel sounds, No tenderness Musculoskeletal: No tenderness Integumentary: No rashes Neurological: Normal speech, Normal tone, Normal affect Lymphatics: No axilla or inguinal lymphadenopathy - Studies Medications List Reviewed: Yes Assessment And Plan - Current Problems (Diagnosis) (1) Acute on chronic diastolic (congestive) heart failure Onset Date: 02/18/17 Current Visit: No Status: Acute (2) CHF (congestive heart failure) Onset Date: 06/13/17 Current Visit: Yes Status: Acute Qualifiers: (3) Diabetes Current Visit: No Status: Acute Qualifiers: Diabetes mellitus type: type 2 Diabetes mellitus care home insulin use: with oysterman use Diabetes mellitus complication status: with ophthalmic complications Diabetes mellitus complication detail: with diabetic retinopathy Diabetic retinopathy severity: with mild nonproliferative retinopathy Diabetes mellitus macular edema: with macular edema Laterality: bilateral Qualified Code(s): 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, bilateral; Z79.4 - custodial (current) use of insulin; Z79.4 - ad terminal makeup operator (current) use of insulin; Z79.4 - ad terminal makeup operator (current) use of insulin; Z79.4 - custodial (current) use of insulin (4) Elevated troponin Onset Date: 06/13/17 Current Visit: Yes Status: Chronic (5) SOB (shortness of breath) Onset Date: 07/26/16 Current Visit: Yes Status: Acute (6) GERD (gastroesophageal reflux disease) Onset Date: 06/13/17 Current Visit: Yes Status: Chronic Qualifiers: (7) HTN (hypertension) Onset Date: 02/18/17 Current Visit: Yes Status: Chronic Qualifiers: Hypertension type: essential hypertension (8) Hyperlipidemia Onset Date: 06/13/17 Current Visit: Yes Status: Chronic Qualifiers: Hyperlipidemia type: unspecified (9) COPD (chronic obstructive pulmonary disease) Onset Date: 06/16/17 Current Visit: Yes Status: Chronic Qualifiers: COPD type: unspecified COPD Qualified Code(s): J44.9 - Chronic obstructive pulmonary disease, unspecified - Plan --continue Nebs --continue IV Lasix --Resume Home meds --O2 --discharge patient home tomorrow
[2017-06-16] MEDS: GABAPENTIN 300 MG CAP PO SCH (22:20)
[2017-06-17] MEDS: IPRATROPIUM BROM 0.5MG/2.5ML NEB SCH ×2 (01:51→07:41)
[2017-06-17] MEDS: ALBUTEROL 2.5 MG/3 ML NEB SOL NEB SCH ×2 (01:51→07:41)
[2017-06-17] MEDS: CARVEDILOL 25 MG TAB PO SCH (05:13)
[2017-06-17] MEDS: GUAIFENESIN/DM 5 ML UCUP PO PRN ×2 (05:13→11:13)
[2017-06-17] MEDS: INSULIN -REGULAR HUMAN 50 UNIT/0.5 ML ML SQ SCH ×2 (08:44→13:25)
[2017-06-17] MEDS: INSULIN DETEMIR 100 UNIT/1 ML INSULIN SQ SCH (08:46)
[2017-06-17 08:55] VITALS: O2SAT 93
[2017-06-17 09:30] VITALS: BP 131/58; TEMP 97.5
[2017-06-17] MEDS: ENOXAPARIN 40 MG/0.4 ML SQ SCH (11:03)
[2017-06-17] MEDS: PANTOPRAZOLE 40 MG INJ IVP SCH (11:03)
[2017-06-17] MEDS: GABAPENTIN 300 MG CAP PO SCH ×2 (11:04→13:27)
[2017-06-17] MEDS: FUROSEMIDE 20 MG/ 2ML VIAL IV SCH ×2 (11:04→13:27)
[2017-06-17] MEDS: POTASSIUM CL SA 10 MEQ TAB PO SCH (11:04)
[2017-06-17] MEDS: PRASUGREL (EFFIENT) 10 MG TAB PO SCH (11:04)
[2017-06-17] MEDS: ASPIRIN 81 MG CHEWABLE TABLET PO SCH (11:05)
--- NOTE | 2017-06-17 18:11 | P.DS ---
Admission Date: 06/15/17 Discharge Date: 06/17/17 Disposition: ROUTINE DISCHARGE Discharge Condition: FAIR Reason for Admission: SOB - Problems (1) Acute on chronic diastolic (congestive) heart failure Onset Date: 02/18/17 Status: Acute (2) CHF (congestive heart failure) Onset Date: 06/13/17 Status: Acute Qualifiers: (3) Diabetes Status: Acute Qualifiers: Diabetes mellitus type: type 2 Diabetes mellitus adjunct faculty for medical terminology insulin use: with usp use Diabetes mellitus complication status: with ophthalmic complications Diabetes mellitus complication detail: with diabetic retinopathy Diabetic retinopathy severity: with mild nonproliferative retinopathy Diabetes mellitus macular edema: with macular edema Laterality: bilateral Qualified Code(s): 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, bilateral; Z79.4 - superintendent marine oil terminal (current) use of insulin; Z79.4 - nursing home (current) use of insulin; Z79.4 - nursing home (current) use of insulin; Z79.4 - nursing home (current) use of insulin (4) Elevated troponin Onset Date: 06/13/17 Status: Chronic (5) SOB (shortness of breath) Onset Date: 07/26/16 Status: Acute (6) GERD (gastroesophageal reflux disease) Onset Date: 06/13/17 Status: Chronic Qualifiers: (7) HTN (hypertension) Onset Date: 02/18/17 Status: Chronic Qualifiers: Hypertension type: essential hypertension (8) Hyperlipidemia Onset Date: 06/13/17 Status: Chronic Qualifiers: Hyperlipidemia type: unspecified (9) COPD (chronic obstructive pulmonary disease) Onset Date: 06/16/17 Status: Chronic Qualifiers: COPD type: unspecified COPD Qualified Code(s): J44.9 - Chronic obstructive pulmonary disease, unspecified Brief History of Present Illness: 76 y/o female with HTN CHF diastolic and CDA s/p stent placement 4 days ago and she was discharged yesterday in stable condition. However she developed more SOB and went back to ER. She has no chest pain. No fever. Hospital Course: The patient admitted hospital because of desaturation and increasing short-of- breath. She was treated with the intravenous Lasix with clinical improvement. Urinalysis shows a urine tract infection sensitive to Bactrim. The patient overall condition has been improved. Home oxygen has been set up. The patient is discharged home today in stable condition on aspirin and Efficient. She has a follow with Cardiology in an clinic. The patient developed no complication during this hospitalization here Vital Signs/Physical Exam: Temp Pulse Resp BP Pulse Ox 97.5 F 63 18 131/58 L 97 06/17/17 08:00 06/17/17 13:27 06/17/17 08:00 06/17/17 13:27 06/17/17 08:00 General: Alert, In no apparent distress HEENT: Atraumatic, PERRLA, EOMI Neck: Supple, JVD not distended Respiratory: Clear to auscultation bilaterally, Normal air movement Cardiovascular: Regular rate/rhythm, Normal S1 S2 Gastrointestinal: Normal bowel sounds, No tenderness Musculoskeletal: No tenderness Integumentary: No rashes Neurological: Normal speech, Normal tone, Normal affect Lymphatics: No axilla or inguinal lymphadenopathy Laboratory Data at Discharge: WBC 9.4 K/uL (4.3-10.9) 06/15/17 14:15 Hgb 8.8 g/dL (12.0-15.0) L 06/15/17 14:15 Hct 29.1 % (36.0-45.0) L 06/15/17 14:15 Plt Count 293 K/uL (152-406) 06/15/17 14:15 PT 13.8 SECONDS (9.5-12.5) H 06/15/17 14:15 INR 1.17 06/15/17 14:15 APTT 25.1 SECONDS (24.3-36.9) 06/15/17 14:15 Sodium 133 mEq/L (135-145) L 06/15/17 14:15 Potassium 4.4 mEq/L (3.6-5.0) 06/15/17 14:15 BUN 20 mg/dL (6-20) 06/15/17 14:15 Creatinine 1.13 mg/dL (0.44-1.00) H 06/15/17 14:15 Glucose 409 mg/dL (65-120) H* 06/15/17 14:15 Magnesium 2.1 mg/dL (1.8-2.5) 06/15/17 14:15 Total Bilirubin 0.6 mg/dL (0.3-1.2) 06/15/17 14:15 AST 22 IU/L (10-42) 06/15/17 14:15 ALT 16 IU/L (10-60) 06/15/17 14:15 Alkaline Phosphatase 122 IU/L (42-121) H 06/15/17 14:15 B-Natriuretic Peptide 395 pg/ml (<=100) H 06/15/17 14:15 Lipase Cancelled 06/15/17 14:19 Home Medications: Gabapentin [Neurontin*] 600 mg PO TID 12/29/12 Insulin Detemir [Levemir] 66 units SQ BEDTIME 12/29/12 Magnesium Oxide [Magnesium] 400 mg PO DAILY 12/29/12 Metformin HCl [Glucophage*] 1,000 mg PO BID 12/29/12 Simvastatin 20 mg PO BEDTIME 12/29/12 traMADol HCL [Ultram*] 50 mg PO TID PRN #90 tab 07/26/16 Albuterol Sulfate [Proair Respiclick] 90 mcg IH Q4H PRN 06/12/17 Azelastine [Astelin 137MCG/Metered [place]*] 2 sprays NS BID 06/12/17 Benzonatate [Tessalon Perle*] 200 mg PO TID 06/12/17 Fluticasone [Flonase 50MCG Nasal [place]*] 1 sprays NS BID 06/12/17 Fluticasone/Salmeterol [Advair 250-50 Diskus] 1 each IH BID 06/12/17 Insulin Aspart Protam & Aspart [Novolog Mix 70-30 Flexpen Syrn] 50 unit SQ DAILY AT SUPPER 06/12/17 Insulin Aspart Protam & Aspart [Novolog Mix 70-30 Flexpen Syrn] 80 unit SQ BREAKFAST 06/12/17 Liraglutide [Victoza 2-Ken] 1.8 mg SQ DAILY 06/12/17 Promethazine HCl 12.5 mg PO Q8H PRN 06/12/17 Bimatoprost [Lumigan] 0.01 drop LEFT EYE BID 06/14/17 Brimonidine Tartrate/Timolol [Combigan 0.2%-0.5% Eye Drops] 5 drop LEFT EYE DAILY 06/14/17 Nitroglycerin 0.4 mg SL PRN #60 tab.subl 06/14/17 Pantoprazole [Protonix Tab*] 40 mg PO ACB #30 tab 06/14/17 Prasugrel Hydrochloride [Effient*] 10 mg PO DAILY #30 tab 06/14/17 Fluoxetine HCl [Prozac] 1 tab PO BEDTIME 06/15/17 Aspirin Chewable [Aspirin Chewable*] 162 mg PO DAILY #30 tab.chew 06/17/17 Carvedilol [Coreg*] 25 mg PO BID 6AM 6PM #60 tab 06/17/17 Furosemide [Lasix*] 40 mg PO BIDL #60 tab 06/17/17 Insulin Detemir [Levemir*] 40 units SQ DAILY WITH BREAKFAST #10 ml 06/17/17 Potassium Oral Tab [Klor-Con 10 mEq Tab*] 20 meq PO BID #60 tab 06/17/17 Prasugrel Hydrochloride [Effient*] 10 mg PO DAILY #30 tab 06/17/17 Smz./Tmp. [Bactrim Ds 800 MG/160 MG*] 1 tab PO BID #14 tab 06/17/17 Thiamine Mononitrate [Vitamin B-1] 100 mg PO DAILY #30 tablet 06/17/17 New Medications: Aspirin Chewable [Aspirin Chewable*] 162 mg PO DAILY #30 tab.chew Carvedilol [Coreg*] 25 mg PO BID 6AM 6PM #60 tab Furosemide [Lasix*] 40 mg PO BIDL #60 tab Insulin Detemir [Levemir*] 40 units SQ DAILY WITH BREAKFAST #10 ml Potassium Oral Tab [Klor-Con 10 mEq Tab*] 20 meq PO BID #60 tab Prasugrel Hydrochloride [Effient*] 10 mg PO DAILY #30 tab Smz./Tmp. [Bactrim Ds 800 MG/160 MG*] 1 tab PO BID #14 tab Thiamine Mononitrate [Vitamin B-1] 100 mg PO DAILY #30 tablet Activity: Ad emma Followup: Alex Manuel MD [ACTIVE - CAN ADMIT] - Time spent managing pt's care (in minutes): 15
[2017-06-17] MEDS ORDERED: GABAPENTIN 300 MG CAP PO ONE (22:06)
--- NOTE | 2017-06-18 07:22 | PN ---
Date of Progress Note: 06/17/2017 Ms. Longoria had a stent of her LAD on Tuesday of this week, went home on Tuesday, came back Tuesday for congestive heart failure, had been diuresing well since then. She has a history of severe COPD. She is on home oxygen. This is being arranged. Apparently at her last discharge when she went home , she did not have any oxygen which caused her to come back to the hospital. She is to continue her aspirin, Effient, Lipitor 80 mg, beta-blockers, HIRA inhibitors, Lasix, and she can go home whenever i t is okay with Dr. Ojeda. We will see her in the office as an outpatient very soon. ALYSHA/GEORGETTE Voice ID: [id number] Report ID: [id number]
== END 2017-06-17 14:02 | disposition home or self-care (01) ==
LOC: ER 13:22 → ERHOLD 16:28 → 4TH 18:02
PROVIDERS: ADMIT Internal Medicine Hematology & Oncology; ATTEND Internal Medicine Hematology & Oncology
DX: I11.0 Hypertensive heart disease with heart failure (principal); I50.33 Acute on chronic diastolic (congestive) heart failure; N39.0 Urinary tract infection, site not specified; E11.3213 Type 2 diabetes mellitus with mild nonproliferative diabetic retinopathy with macular edema, bilateral; Z79.4 Long term (current) use of insulin; R79.89 Other specified abnormal findings of blood chemistry; K21.9 Gastro-esophageal reflux disease without esophagitis; E78.5 Hyperlipidemia, unspecified; J44.9 Chronic obstructive pulmonary disease, unspecified; I25.10 Atherosclerotic heart disease of native coronary artery without angina pectoris; Z95.5 Presence of coronary angioplasty implant and graft; Z88.2 Allergy status to sulfonamides; Z85.038 Personal history of other malignant neoplasm of large intestine; E66.9 Obesity, unspecified; Z68.41 Body mass index [BMI] 40.0-44.9, adult
CPT/HCPCS: 36415; 71045; 80048; 80076; 81003; 82550; 82553; 82962 ×10; 83735; 83880; 84484; 85025; 85610; 85730; 86850; 86900; 86901; 87040 ×2; 87077; 87086; 87088; 87186; 93005; 94640 ×2; 96372; 96374; 96375; 99285; C9113 ×2; G0378 ×2; J1650 ×3; J1940 ×7; J7030

== ENCOUNTER 2018-01-12 18:10 | Observation (INO) | payer OTHER ==
[2018-01-12] MEDS ORDERED: ASPIRIN 81 MG CHEWABLE TABLET ONE (19:50)
[2018-01-12] MEDS ORDERED: FAMOTIDINE 20 MG/2 ML VIAL IV ONE (19:50)
[2018-01-12 19:55] LABS: Absolute Lymphocytes (CBC) 1.8 K/uL (0.7-4.9); Absolute Monocytes 1.3 K/uL (0.1-1.3); Absolute Neutrophil 4.9 K/uL (1.8-8.0); Basophils % 0.5 % (0-1.3); Hematocrit 33.5 % (36.0-45.0); Lymphocytes % 21.5 % (15.3-44.8); MCH 26.9 pg (27.0-35.0); MCV 83.3 fL (80-100); MPV 8.7 fL (7.6-11.3); Monocytes % 15.8 % (3.3-12.3); RBC Red Blood Cell Count 4.03 M/uL (3.86-4.86)
[2018-01-12 19:57] LABS: Protime INR 1.04
[2018-01-12 20:11] LABS: ALT/SGPT 26 U/L (12-78); AST/SGOT 24 U/L (15-37); Albumin 2.9 g/dL (3.4-5.0); Alkaline Phosphatase 146 U/L (45-117); BUN Blood Urea Nitrogen 16 mg/dL (7-18); Bicarbonate 29 mmol/L (21-32); Bilirubin Direct 0.1 mg/dL (0-0.2); Bilirubin Total 0.3 mg/dL (0.2-1.0); Glucose Level 167 mg/dL (74-106); Lipase 172 U/L (73-393); Magnesium 1.9 mg/dL (1.8-2.4); NT PRO-BNP 598 pg/mL (<450); Protein, Total 7.6 g/dL (6.4-8.2); Sodium Level 140 mmol/L (136-145); Troponin (Emerg Dept Use Only) < 0.02 ng/mL (0.0-0.045)
[2018-01-12 20:24] LABS: Urine Blood TRACE (NEG); Urine Glucose NEGATIVE (NEG); Urine Protein 2+ (NEG); Urine Specific Gravity 1.015 (1.005-1.030)
[2018-01-12 20:44] LABS: Blood Morphology Comment NOT SEEN (NOT SEEN); Platelet Estimate ADEQ; Urine White Blood Cell Casts OK
--- NOTE | 2018-01-12 20:45 | ER ---
Nurse's Notes [facility] Name: Gloria Longoria Age: 77 yrs Sex: Female : 1940 Arrival Date: 01/12/2018 Time: 18:12 Bed 16 Private MD: Babar Wang Diagnosis: Chest pain, unspecified;Unspecified combined systolic (congestive) and diastolic (congestive) heart failure;Type 2 diabetes mellitus;Anemia, unspecified Presentation: 01/12 18:36 Presenting complaint: Patient states: "I'm coughing a lot and I'm having some pains in aj1 my chest." Reports productive coug for the past 2 days. Denies chills. Transition of care: patient was not received from another setting of care. Resp Distress? No respiratory distress is noted at this time. Onset of symptoms was January 10, 2018. Risk Assessment: Do you want to hurt yourself or someone else? Patient reports no desire to harm self or others. Initial Sepsis Screen: Does the patient meet any 2 criteria? No. Patient's initial sepsis screen is negative. Does the patient have a suspected source of infection? Yes: Productive cough/pneumonia. Care prior to arrival: None. 18:36 Method Of Arrival: Wheelchair aj1 18:36 Acuity: MALAIKA 3 aj1 Triage Assessment: 18:40 General: Appears in no apparent distress. comfortable, Behavior is calm, cooperative, aj1 appropriate for age. Pain: Complains of pain in mid-sternal area Pain currently is 8 out of 10 on a pain scale. Neuro: Level of Consciousness is awake, alert, obeys commands. Cardiovascular: Patient's skin is warm and dry. Respiratory: Airway is patent Respiratory effort is even, unlabored, Respiratory pattern is regular, symmetrical. Historical: - Allergies: 18:40 Sulfa (Sulfonamide Antibiotics); aj1 - Home Meds: 18:40 Klor-Con 10 Oral [Active]; gabapentin Oral [Active]; Magnesium Oxide Oral [Active]; aj1 atorvastatin oral oral [Active]; metformin 1,000 mg Oral tab [Active]; fluoxetine 40 mg Oral cap [Active]; nitroglycerine [Active]; losartan-hydrochlorothiazide 100-12.5 mg Oral tab [Active]; pantoprazole oral oral [Active]; Novolog Sub-Q [Active]; Levemir FlexTouch 100 unit/mL (3 mL) subcutaneous inpn [Active]; - PMHx: 18:40 CHF; colon cancer; Diabetes - IDDM; Hypertension; Pneumonia; aj1 - Immunization history:: Flu vaccine is up to date. - Social history:: Smoking status: Patient/guardian denies using tobacco. - Ebola Screening: : Patient denies travel to an Ebola-affected area in the 21 days before illness onset. - Family history:: not pertinent. Screenin:30 Abuse screen: Denies threats or abuse. Nutritional screening: No deficits noted. jb4 Tuberculosis screening: No symptoms or risk factors identified. Fall Risk None identified. Assessment: 19:30 General: Appears in no apparent distress. uncomfortable, Behavior is calm, cooperative, jb4 appropriate for age. Pain: Complains of pain in chest Pain does not radiate. Pain currently is 4 out of 10 on a pain scale. at worst was 8 out of 10 on a pain scale. Neuro: Level of Consciousness is awake, alert, obeys commands, Oriented to person, place, time, situation. Cardiovascular: Heart tones S1 S2 Patient's skin is warm and dry. Respiratory: Airway is patent Respiratory effort is even, unlabored, Respiratory pattern is regular, symmetrical, Breath sounds are clear bilaterally. GI: No signs and/or symptoms were reported involving the gastrointestinal system. : No signs and/or symptoms were reported regarding the genitourinary system. EENT: No signs and/or symptoms were reported regarding the EENT system. Derm: Skin is intact, Skin is dry, Skin is normal, Skin temperature is warm. Musculoskeletal: Circulation, motion, and sensation intact. 20:30 Reassessment: Patient appears in no apparent distress at this time. Patient and/or lp1 family updated on plan of care and expected duration. Pain level reassessed. Patient is alert, oriented x 3, equal unlabored respirations, skin warm/dry/pink. 21:30 Reassessment: Patient appears in no apparent distress at this time. Patient and/or lp1 family updated on plan of care and expected duration. Pain level reassessed. Patient is alert, oriented x 3, equal unlabored respirations, skin warm/dry/pink. 22:30 Reassessment: Patient appears in no apparent distress at this time. Patient and/or lp1 family updated on plan of care and expected duration. Pain level reassessed. Patient is alert, oriented x 3, equal unlabored respirations, skin warm/dry/pink. Vital Signs: 18:40 BP 135 / 43; Pulse 79; Resp 20; Temp 97.2; Pulse Ox 96% on R/A; Weight 108.86 kg (R); aj1 Height 5 ft. 2 in. (157.48 cm); Pain 8/10; 20:00 BP 146 / 85; Pulse 78; Resp 20; Pulse Ox 97% on R/A; lp1 22:00 BP 163 / 71; Pulse 75; Resp 18; Pulse Ox 95% on R/A; lp1 18:40 Body Mass Index 43.90 (108.86 kg, 157.48 cm) aj1 ED Course: 18:12 Patient arrived in ED. as 18:12 Babar Wang MD is Private Physician. as 18:38 Triage completed. aj1 18:40 Arm band placed on Patient placed in an exam room. aj1 18:46 Hraris Black MD is Attending Physician. gino 19:13 Zia Rodrigues RN is Primary Nurse. jb4 19:30 Patient has correct armband on for positive identification. Bed in low position. Call jb4 light in reach. Side rails up X 1. threat monitoring analyst on. Pulse ox on. NIBP on. 19:59 Urine Culture Sent. ds4 20:02 X-ray completed. Portable x-ray completed in exam room. Patient tolerated procedure sg4 well. 20:25 XRAY Chest (1 view) In Process Unspecified. EDMS 20:25 Missed attempt(s): 22 gauge in right forearm. Inserted saline lock: 22 gauge in left lp1 forearm, using aseptic technique. 20:42 Thea Ga MD is Hospitalizing Provider. gino 22:25 No provider procedures requiring assistance completed. Patient admitted, IV remains in lp1 place. Administered Medications: 20:27 Drug: Aspirin 162 mg Route: PO; jb4 21:00 Follow up: Response: No adverse reaction jb4 20:32 Drug: Pepcid 20 mg Route: IVP; Site: left forearm; jb4 21:00 Follow up: Response: No adverse reaction jb4 21:53 Drug: Lasix 20 mg Route: IVP; Site: left forearm; jb4 22:30 Follow up: Response: No adverse reaction jb4 21:53 Drug: Lovenox 100 mg Route: Sub-Q; Site: left lower abdomen; jb4 01/13 03:00 Follow up: Response: No adverse reaction jb4 Outcome: 01/12 20:45 Decision to Hospitalize by Provider. gino 22:27 Admitted to Med/surg via wheelchair, room 205, with chart, Report called to Marci Romero RN 22:27 Condition: stable 22:27 Instructed on the need for admit. 22:45 Patient left the ED. [email or web address] Signatures: Dispatcher [employer] EDKandy Palumbo RN RN Harris Mays MD MD cha Martinez, Amelia as Pena, Laura, RN RN lp1 Laurent Drummond ds4 Zia Rodrigues RN RN jb4 Iliana Tobin sg4
--- NOTE | 2018-01-12 20:46 | EDPHYS ---
Physician Documentation [facility] Name: Gloria Longoria Age: 77 yrs Sex: Female : 1940 Arrival Date: 01/12/2018 Time: 18:12 Bed 16 Private MD: Babar Wang ED Physician Harris Black HPI: 01/12 19:11 This 77 yrs old Black Female presents to ER via Wheelchair with complaints of Cough, gino Congestion. 19:11 The patient or guardian reports cough. gino 19:12 The patient or guardian reports chest pain that is located primarily in the anterior gino chest wall, bilaterally. Onset: 2 day(s) ago. The pain does not radiate. Onset: The symptoms/episode began/occurred 2 day(s) ago. Severity of symptoms: At their worst the symptoms were mild, moderate, in the emergency department the symptoms have improved, moderately. Modifying factors: The symptoms are alleviated by nothing, the symptoms are aggravated by animal dander. Associated signs and symptoms: The patient has no apparent associated signs or symptoms. Historical: - Allergies: 18:40 Sulfa (Sulfonamide Antibiotics); aj1 - Home Meds: 18:40 Klor-Con 10 Oral [Active]; gabapentin Oral [Active]; Magnesium Oxide Oral [Active]; aj1 atorvastatin oral oral [Active]; metformin 1,000 mg Oral tab [Active]; fluoxetine 40 mg Oral cap [Active]; nitroglycerine [Active]; losartan-hydrochlorothiazide 100-12.5 mg Oral tab [Active]; pantoprazole oral oral [Active]; Novolog Sub-Q [Active]; Levemir FlexTouch 100 unit/mL (3 mL) subcutaneous inpn [Active]; - PMHx: 18:40 CHF; colon cancer; Diabetes - IDDM; Hypertension; Pneumonia; aj1 - Immunization history:: Flu vaccine is up to date. - Social history:: Smoking status: Patient/guardian denies using tobacco. - Ebola Screening: : Patient denies travel to an Ebola-affected area in the 21 days before illness onset. - Family history:: not pertinent. ROS: 19:12 Constitutional: Negative for fever, chills, and weight loss, Eyes: Negative for injury, gino pain, redness, and discharge, ENT: Negative for injury, pain, and discharge, Neck: Negative for injury, pain, and swelling, Abdomen/GI: Negative for abdominal pain, nausea, vomiting, diarrhea, and constipation, Back: Negative for injury and pain, : Negative for injury, bleeding, discharge, and swelling, MS/Extremity: Negative for injury and deformity, Skin: Negative for injury, rash, and discoloration, Neuro: Negative for headache, weakness, numbness, tingling, and seizure, Psych: Negative for depression, anxiety, suicide ideation, homicidal ideation, and hallucinations, Allergy/Immunology: Negative for hives, rash, and allergies, Endocrine: Negative for neck swelling, polydipsia, polyuria, polyphagia, and marked weight changes, Hematologic/Lymphatic: Negative for swollen nodes, abnormal bleeding, and unusual bruising. 19:12 Cardiovascular: Positive for chest pain. 19:12 Respiratory: Positive for cough, shortness of breath. Exam: 19:12 Constitutional: This is a well developed, well nourished patient who is awake, alert, gino and in no acute distress. Head/Face: Normocephalic, atraumatic. Eyes: Pupils equal round and reactive to light, extra-ocular motions intact. Lids and lashes normal. Conjunctiva and sclera are non-icteric and not injected. Cornea within normal limits. Periorbital areas with no swelling, redness, or edema. ENT: Nares patent. No nasal discharge, no septal abnormalities noted. Tympanic membranes are normal and external auditory canals are clear. Oropharynx with no redness, swelling, or masses, exudates, or evidence of obstruction, uvula midline. Mucous membranes moist. Neck: Trachea midline, no thyromegaly or masses palpated, and no cervical lymphadenopathy. Supple, full range of motion without nuchal rigidity, or vertebral point tenderness. No Meningismus. Chest/axilla: Normal chest wall appearance and motion. Nontender with no deformity. No lesions are appreciated. Cardiovascular: Regular rate and rhythm with a normal S1 and S2. No gallops, murmurs, or rubs. Normal PMI, no JVD. No pulse deficits. Respiratory: Lungs have equal breath sounds bilaterally, clear to auscultation and percussion. No rales, rhonchi or wheezes noted. No increased work of breathing, no retractions or nasal flaring. Abdomen/GI: Soft, non-tender, with normal bowel sounds. No distension or tympany. No guarding or rebound. No evidence of tenderness throughout. Back: No spinal tenderness. No costovertebral tenderness. Full range of motion. Skin: Warm, dry with normal turgor. Normal color with no rashes, no lesions, and no evidence of cellulitis. MS/ Extremity: Pulses equal, no cyanosis. Neurovascular intact. Full, normal range of motion. Neuro: Awake and alert, GCS 15, oriented to person, place, time, and situation. Cranial nerves II-XII grossly intact. Motor strength 5/5 in all extremities. Sensory grossly intact. Cerebellar exam normal. Normal gait. Psych: Awake, alert, with orientation to person, place and time. Behavior, mood, and affect are within normal limits. 19:12 Musculoskeletal/extremity: DVT Exam: No signs of deep vein thrombosis. no pain, no swelling, no tenderness, negative Homans' sign noted on exam, no appreciated bluish discoloration, no erythema, no increased warmth. Vital Signs: 18:40 BP 135 / 43; Pulse 79; Resp 20; Temp 97.2; Pulse Ox 96% on R/A; Weight 108.86 kg (R); aj1 Height 5 ft. 2 in. (157.48 cm); Pain 8/10; 20:00 BP 146 / 85; Pulse 78; Resp 20; Pulse Ox 97% on R/A; lp1 22:00 BP 163 / 71; Pulse 75; Resp 18; Pulse Ox 95% on R/A; lp1 18:40 Body Mass Index 43.90 (108.86 kg, 157.48 cm) aj1 MDM: 18:46 Patient medically screened. [facility] 19:14 Data reviewed: vital signs, nurses notes, lab test result(s), EKG, radiologic studies, [facility] plain films. 01/12 19:11 Order name: Basic Metabolic Panel [facility] 01/12 19:11 Order name: CBC with Diff [facility] 01/12 19:11 Order name: LFT's [facility] 01/12 19:11 Order name: Magnesium; Complete Time: 20:40 [facility] 01/12 19:11 Order name: NT PRO-BNP; Complete Time: 20:40 [facility] 01/12 19:11 Order name: PT-INR; Complete Time: 20:40 [facility] 01/12 19:11 Order name: Troponin (emerg Dept Use Only); Complete Time: 20:40 [facility] 01/12 19:11 Order name: Lipase; Complete Time: 20:40 [facility] 01/12 19:11 Order name: Urine Culture [facility] 01/12 19:12 Order name: Basic Metabolic Panel; Complete Time: 20:40 [facility] 01/12 19:12 Order name: CBC with Automated Diff [facility] 01/12 19:12 Order name: Liver (Hepatic) Function; Complete Time: 20:40 [facility] 01/12 20:00 Order name: Urine Dipstick--Ancillary (enter results) [facility] 01/12 20:01 Order name: Urine Dipstick-Ancillary; Complete Time: 20:40 [facility] 01/12 19:11 Order name: XRAY Chest (1 view) [facility] 01/12 19:11 Order name: EKG; Complete Time: 19:13 [facility] 01/12 19:11 Order name: Cardiac monitoring; Complete Time: 19:29 [facility] 01/12 19:11 Order name: EKG - Nurse/Tech; Complete Time: 19:29 [facility] 01/12 19:11 Order name: IV Saline Lock; Complete Time: 19:30 [facility] 01/12 19:11 Order name: Labs collected and sent; Complete Time: 19:29 [facility] 01/12 19:11 Order name: O2 Per Protocol; Complete Time: 19:30 [facility] 01/12 19:11 Order name: O2 Sat Monitoring; Complete Time: 19:30 [facility] 01/12 19:11 Order name: Urine Dipstick-Ancillary (obtain specimen); Complete Time: 21:08 [facility] 01/12 20:45 Order name: CBC Smear Scan [facility] 01/12 20:50 Order name: CONS Physician Consult [facility] 01/12 20:50 Order name: Echo with Doppler EDND Administered Medications: 20:27 Drug: Aspirin 162 mg Route: PO; jb4 21:00 Follow up: Response: No adverse reaction jb4 20:32 Drug: Pepcid 20 mg Route: IVP; Site: left forearm; jb4 21:00 Follow up: Response: No adverse reaction jb4 21:53 Drug: Lasix 20 mg Route: IVP; Site: left forearm; jb4 22:30 Follow up: Response: No adverse reaction jb4 21:53 Drug: Lovenox 100 mg Route: Sub-Q; Site: left lower abdomen; jb4 01/13 03:00 Follow up: Response: No adverse reaction jb4 Disposition: 01/12/18 20:45 Hospitalization ordered by Thea Ga for Observation. Preliminary diagnosis are Chest pain, unspecified, Unspecified combined systolic (congestive) and diastolic (congestive) heart failure, Type 2 diabetes mellitus, Anemia, unspecified. - Bed requested for Telemetry/MedSurg (observation). - Status is Observation. lp1 - Condition is Fair. - Problem is new. - Symptoms have improved. UTI on Admission? No Signatures: Dispatcher [employer] EDMS Kandy Huerta, RN RN aj1 Harris Black MD MD cha Pena, Laura RN RN lp1 Zia Rodrigues RN RN jb4 Giselle Samaniego mw2 Corrections: (The following items were deleted from the chart) 01/12 21:22 20:45 Hospitalization Ordered by Thea Ga MD for Observation. Preliminary mw2 diagnosis is Chest pain, unspecified; Unspecified combined systolic (congestive) and diastolic (congestive) heart failure; Type 2 diabetes mellitus; Anemia, unspecified. Bed requested for Telemetry/MedSurg (observation). Status is Observation. Condition is Fair. Problem is new. Symptoms have improved. UTI on Admission? No. [facility] 22:45 21:22 01/12/2018 20:45 Hospitalization Ordered by Thea Ga MD for Observation. lp1 Preliminary diagnosis is Chest pain, unspecified; Unspecified combined systolic (congestive) and diastolic (congestive) heart failure; Type 2 diabetes mellitus; Anemia, unspecified. Bed requested for Telemetry/MedSurg (observation). Status is Observation. Condition is Fair. Problem is new. Symptoms have improved. UTI on Admission? No. mw2
--- NOTE | 2018-01-12 21:19 | RAD REPORT ---
EXAM DESCRIPTION: RAD - Chest Single View - 01/12/2018 8:25 pm CLINICAL HISTORY: Chest pain;Cough COMPARISON: June 15 TECHNIQUE: AP portable chest image was obtained 1959 hours . FINDINGS: No peripheral mass or consolidation. Heart size is upper normal. Vasculature normal as wel l. Lung markings are mildly prominent but diminished compared to the May study. No measurable pleur al effusion and no pneumothorax. No acute bony abnormality seen. No acute aortic findings suspected. IMPRESSION: No focal mass or consolidation. Heart, vasculature and lung markings have diminished in prominence from the moderate appearing failure pattern seen in May. Patient likely has a minimal failure or volume overload.
--- NOTE | 2018-01-12 22:23 | P.HP ---
Certification for Inpatient Patient admitted to: Observation With expected LOS: <2 Midnights Practitioner: I am a practitioner with admitting privileges, knowledge of patient current condition, hospital course, and medical plan of care. Services: Services provided to patient in accordance with Admission requirements found in Title 42 Section 412.3 of the Code of Federal Regulations Patient History Date of Service: 01/12/18 Reason for admission: Chest pain History of Present Illness: Ms Longoria is a 77-year-old woman with history of insulin-dependent diabetes mellitus, hypertension, CHF on p.r.n. oxygen at home, obesity, who about 3 or 4 days ago she received flu vaccine. After that she gravelly start feeling more weak, having dry cough, associated with on and off chest pain. She described the pain substernal, without radiation, and getting worse with movements or coughing, without nausea, vomiting, or shortness of breath associated. Lab work shows normal WBC count, troponin I normal, EKG without acute changes. Allergies Sulfa (Sulfonamide Antibiotics) Allergy (Intermediate, Verified 11/21/15 00:47) Shortness of breath Home Medications: Gabapentin [Neurontin*] 600 mg PO TID 12/29/12 Insulin Detemir [Levemir] 66 units SQ BEDTIME 12/29/12 Magnesium Oxide [Magnesium] 400 mg PO DAILY 12/29/12 Metformin HCl [Glucophage*] 1,000 mg PO BID 12/29/12 Simvastatin 20 mg PO BEDTIME 12/29/12 traMADol HCL [Ultram*] 50 mg PO TID PRN #90 tab 07/26/16 Albuterol Sulfate [Proair Respiclick] 90 mcg IH Q4H PRN 06/12/17 Azelastine [Astelin 137MCG/Metered [place]*] 2 sprays NS BID 06/12/17 Benzonatate [Tessalon Perle*] 200 mg PO TID 06/12/17 Fluticasone [Flonase 50MCG Nasal [place]*] 1 sprays NS BID 06/12/17 Fluticasone/Salmeterol [Advair 250-50 Diskus] 1 each IH BID 06/12/17 Insulin Aspart Protam & Aspart [Novolog Mix 70-30 Flexpen Syrn] 50 unit SQ DAILY AT SUPPER 06/12/17 Insulin Aspart Protam & Aspart [Novolog Mix 70-30 Flexpen Syrn] 80 unit SQ BREAKFAST 06/12/17 Liraglutide [Victoza 2-Ken] 1.8 mg SQ DAILY 06/12/17 Promethazine HCl 12.5 mg PO Q8H PRN 06/12/17 Bimatoprost [Lumigan] 0.01 drop LEFT EYE BID 06/14/17 Brimonidine Tartrate/Timolol [Combigan 0.2%-0.5% Eye Drops] 5 drop LEFT EYE DAILY 06/14/17 Nitroglycerin 0.4 mg SL PRN #60 tab.subl 06/14/17 Pantoprazole [Protonix Tab*] 40 mg PO ACB #30 tab 06/14/17 Prasugrel Hydrochloride [Effient*] 10 mg PO DAILY #30 tab 06/14/17 Fluoxetine HCl [Prozac] 1 tab PO BEDTIME 06/15/17 Aspirin Chewable [Aspirin Chewable*] 162 mg PO DAILY #30 tab.chew 06/17/17 Carvedilol [Coreg*] 25 mg PO BID 6AM 6PM #60 tab 06/17/17 Furosemide [Lasix*] 40 mg PO BIDL #60 tab 06/17/17 Insulin Detemir [Levemir*] 40 units SQ DAILY WITH BREAKFAST #10 ml 06/17/17 Potassium Oral Tab [Klor-Con 10 mEq Tab*] 20 meq PO BID #60 tab 06/17/17 Prasugrel Hydrochloride [Effient*] 10 mg PO DAILY #30 tab 06/17/17 Smz./Tmp. [Bactrim Ds 800 MG/160 MG*] 1 tab PO BID #14 tab 06/17/17 Thiamine Mononitrate [Vitamin B-1] 100 mg PO DAILY #30 tablet 06/17/17 - Past Medical/Surgical History Diabetic: Yes -: Glaucoma -: CHF, diastolic dysfunction -: HTN -: GERD -: DM Neuropathy -: History of Colon CA -: Diabetes mellitus type 2 -: Fatty liver with Morbid Obesity -: Cholecystectomy -: Colon resection -: Appendectomy -: Hysterectomy -: Right Rotator Cuff Repair -: Colectomy Psychosocial/ Personal History: She lives at home. Her daughter helps her at home. - Family History Family History: Reviewed- Non-Contributory - Family History Mother -: Cancer Notes: colon Brother -: Hypertension Sister -: Hypertension - Social History Smoking Status: Never smoker Alcohol use: No CD- Drugs: No Caffeine use: Yes Place of Residence: Home Review of Systems 10-point ROS is otherwise unremarkable Physical Examination - Physical Exam General: Alert, In no apparent distress HEENT: Atraumatic, PERRLA, Mucous membr. moist/pink, EOMI, Sclerae nonicteric Neck: Supple, 2+ carotid pulse no bruit, No LAD, Without JVD or thyroid abnormality Respiratory: Normal air movement, Crackles/rales (Bibasilar rales) Cardiovascular: Regular rate/rhythm, Normal S1 S2 Gastrointestinal: Normal bowel sounds, No tenderness Musculoskeletal: No tenderness Integumentary: No rashes Neurological: Normal speech, Normal strength at 5/5 x4 extr, Normal tone, Normal affect Lymphatics: No axilla or inguinal lymphadenopathy - Studies Laboratory Data (last 24 hrs) 01/12/18 19:25: PT 12.3, INR 1.04 01/12/18 19:25: WBC 8.5, Hgb 10.8 L, Hct 33.5 L, Plt Count 265 01/12/18 19:25: Sodium 140, Potassium 4.0, BUN 16, Creatinine 1.10, Glucose 167 H, Magnesium 1.9, Total Bilirubin 0.3, AST 24, ALT 26, Alkaline Phosphatase 146 H, Lipase 172 Assessment and Plan - Problems (Diagnosis) (1) Cough Current Visit: No Status: Active (2) Acute on chronic diastolic (congestive) heart failure Onset Date: 02/18/17 Current Visit: No Status: Acute (3) Chest pain Onset Date: 07/26/16 Current Visit: No Status: Acute Qualifiers: Chest pain type: chest pain on breathing Qualified Code(s): R07.1 - Chest pain on breathing; R07.81 - Pleurodynia (4) Diabetes mellitus Onset Date: 06/13/17 Current Visit: No Status: Chronic Qualifiers: Diabetes mellitus type: type 2 Diabetes mellitus half-way insulin use: with support service tech use Diabetes mellitus complication status: with unspecified complications Qualified Code(s): E11.8 - Type 2 diabetes mellitus with unspecified complications; 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 Will admit the patient for observation, will order serial cardiac enzymes and EKG. Consult plate inspector, order echocardiogram. - Advance Directives Does patient have a Living Will: No Does patient have a Durable POA for Healthcare: No - Code Status/Comfort Care Code Status Assessed: Yes Code Status: Full Code
[2018-01-12] MEDS ORDERED: GLUCAGON 1 MG/VIAL IM PRN (22:44)
[2018-01-12] MEDS ORDERED: ONDANSETRON 4 MG/2 ML VIAL IV PRN (22:44)
[2018-01-12] MEDS ORDERED: D50W 25 GM/50 ML SYRINGE IV PRN (22:44)
[2018-01-13] MEDS ORDERED: guaiFENesin 100 MG/5 ML UCUP PO PRN (00:59)
[2018-01-13] MEDS: ACETAMINOPHEN 500 MG TAB PO PRN ×2 (02:11→13:35)
[2018-01-13 06:41] LABS: Absolute Monocytes 1.3 K/uL (0.1-1.3); Absolute Neutrophil 5.2 K/uL (1.8-8.0); Basophils % 0.4 % (0-1.3); Eosinophils % 4.1 % (0-4.4); Hematocrit 31.7 % (36.0-45.0); Lymphocytes % 22.3 % (15.3-44.8); MCH 26.8 pg (27.0-35.0); MCV 82.1 fL (80-100); MPV 8.9 fL (7.6-11.3); Monocytes % 14.6 % (3.3-12.3); RBC Red Blood Cell Count 3.86 M/uL (3.86-4.86)
--- NOTE | 2018-01-13 07:29 | EKG ---
Test Date: 2018-01-12 Test Time: 19:24:13 Rubber Heel And Sole Press Tender: SHENG MEASUREMENT RESULTS: Intervals: Rate: 79 GA: 212 QRSD: 80 QT: 386 QTc: 442 [place]: P: 46 GA: 212 QRS: 37 T: 254 INTERPRETIVE STATEMENTS: Sinus rhythm with 1st degree AV block Cannot rule out Inferior infarct, age undetermined Cannot rule out Anterior infarct, age undetermined Abnormal ECG Compared to ECG 06/15/2017 14:30:07 Myocardial infarct finding now present T-wave abnormality no longer present Possible ischemia no longer present Electronically Signed On 01-13-18 07:27:37 CDT by Alex Manuel
[2018-01-13] MEDS: INSULIN -REGULAR HUMAN 50 UNIT/0.5 ML ML SQ SCH ×4 (07:30→22:03)
[2018-01-13] MEDS ORDERED: NITROGLYCERIN 0.4 MG/TAB SL PRN (12:16)
[2018-01-13] MEDS: GABAPENTIN 300 MG CAP PO SCH ×2 (13:04→22:04)
--- NOTE | 2018-01-13 13:33 | P.PN ---
Subjective Date of Service: 01/13/18 Chief Complaint: Chest pain Patient seen and examined at bedside with RN. Chart reviewed. Case discussed with cardiology at this time. Patient continues to have intermittent chest pain at this time. Denies having any shortness of breath or any other associated symptoms. Does state that she feels better than before Review of Systems 10-point ROS is otherwise unremarkable Physical Examination - Vital Signs Temperature: 97.5 F Blood Pressure: 152/70 Pulse: 77 Respirations: 18 Pulse Ox (%): 93 - Physical Exam General: Alert, In no apparent distress HEENT: Atraumatic, PERRLA, EOMI Neck: Supple, JVD not distended Respiratory: Clear to auscultation bilaterally, Normal air movement Cardiovascular: Regular rate/rhythm, Normal S1 S2 Gastrointestinal: Normal bowel sounds, No tenderness Musculoskeletal: No tenderness Integumentary: No rashes Neurological: Normal speech, Normal tone, Normal affect Lymphatics: No axilla or inguinal lymphadenopathy - Studies Laboratory Data (last 24 hrs) 01/12/18 19:25: PT 12.3, INR 1.04 01/12/18 19:25: WBC 8.5, Hgb 10.8 L, Hct 33.5 L, Plt Count 265 01/12/18 19:25: Sodium 140, Potassium 4.0, BUN 16, Creatinine 1.10, Glucose 167 H, Magnesium 1.9, Total Bilirubin 0.3, AST 24, ALT 26, Alkaline Phosphatase 146 H, Lipase 172 Medications List Reviewed: Yes Assessment And Plan - Current Problems (Diagnosis) (1) Chest pain Onset Date: 01/13/18 Current Visit: Yes Status: Acute Plan: Most likely atypical chest pain. Patient had a stent placement in her LAD in 2018. -troponin x2 negative here in the hospital. EKG is negative as well. -cardiology consulted at this time. Appreciated recommendations at this time -echocardiogram is pending at this time -cardiology recommends patient be increased on her Lasix dose. Will increase it to 60 mg daily. Also recommended to put patient on a beta-josy. Patient started on metoprolol 12.5 mg b.i.d. at this time. -will monitor patient for 24 hr with a new changes if there is no chest pain, will consider discharge at this time Qualifiers: Chest pain type: other chest pain Qualified Code(s): R07.89 - Other chest pain; R07.8 - Other chest pain (2) CHF (congestive heart failure) Onset Date: 06/13/17 Current Visit: No Status: Chronic Qualifiers: Heart failure type: diastolic Heart failure chronicity: chronic Qualified Code(s): I50.32 - Chronic diastolic (congestive) heart failure (3) Diabetes Current Visit: No Status: Chronic Qualifiers: Diabetes mellitus type: type 2 Diabetes mellitus carton and can supply supervisor insulin use: with care home use Diabetes mellitus complication status: with ophthalmic complications Diabetes mellitus complication detail: with diabetic retinopathy Diabetic retinopathy severity: with mild nonproliferative retinopathy Diabetes mellitus macular edema: with macular edema Laterality: bilateral Qualified Code(s): 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, bilateral; Z79.4 - relief pharmacist (current) use of insulin; Z79.4 - retirement (current) use of insulin; Z79.4 - retirement (current) use of insulin; Z79.4 - retirement (current) use of insulin (4) COPD (chronic obstructive pulmonary disease) Onset Date: 06/16/17 Current Visit: No Status: Chronic Qualifiers: COPD type: unspecified COPD Qualified Code(s): J44.9 - Chronic obstructive pulmonary disease, unspecified (5) Depression Onset Date: 06/13/17 Current Visit: No Status: Chronic Qualifiers: Depression Type: unspecified (6) GERD (gastroesophageal reflux disease) Onset Date: 06/13/17 Current Visit: No Status: Chronic Qualifiers: Esophagitis presence: without esophagitis Qualified Code(s): K21.9 - Gastro -esophageal reflux disease without esophagitis (7) HTN (hypertension) Onset Date: 02/18/17 Current Visit: No Status: Chronic Plan: Uncontrolled high blood pressure. -will make changes to her Lasix and metoprolol as mentioned in 1. Qualifiers: Hypertension type: essential hypertension Qualified Code(s): I10 - Essential (primary) hypertension (8) Hyperlipidemia Onset Date: 06/13/17 Current Visit: No Status: Chronic Qualifiers: Hyperlipidemia type: unspecified Qualified Code(s): E78.5 - Hyperlipidemia , unspecified Discharge Plan: Home Plan to discharge in: 48 Hours - Code Status/Comfort Care Code Status Assessed: Yes Critical Care: No
[2018-01-13] MEDS: METOPROLOL TAR 25 MG TAB PO SCH (17:05)
[2018-01-13] MEDS ORDERED: GLUCERNA SHAKE 237 ML CAN PO SCH (18:00)
[2018-01-13] MEDS ORDERED: ATORVASTATIN 80 MG TAB PO SCH (21:00)
[2018-01-13] MEDS ORDERED: FLUOXETINE 20 MG CAP PO SCH (21:00)
[2018-01-14] MEDS: METOPROLOL TAR 25 MG TAB PO SCH (06:26)
[2018-01-14] MEDS ORDERED: PANTOPRAZOLE 40MG TABLET PO SCH (07:30)
[2018-01-14 07:33] VITALS: BMI 46.2
[2018-01-14] MEDS: INSULIN -REGULAR HUMAN 50 UNIT/0.5 ML ML SQ SCH ×2 (08:30→11:52)
[2018-01-14] MEDS ORDERED: THIAMINE HCL 100 MG TABLET PO SCH (09:00)
[2018-01-14] MEDS ORDERED: MULTIVITAMIN TAB PO SCH (09:00)
[2018-01-14] MEDS ORDERED: LOSARTAN POTASSIUM 50 MG TABLET PO SCH (09:00)
[2018-01-14] MEDS ORDERED: FUROSEMIDE 40 MG TABLET PO SCH (09:00)
[2018-01-14] MEDS ORDERED: ASPIRIN 81 MG CHEWABLE TABLET PO SCH (09:00)
[2018-01-14] MEDS: GABAPENTIN 300 MG CAP PO SCH (09:34)
[2018-01-14 11:00] VITALS: BP 135/63; TEMP 97.7
[2018-01-14] MEDS: ACETAMINOPHEN 500 MG TAB PO PRN (12:03)
[2018-01-14 12:44] VITALS: O2SAT 97
--- NOTE | 2018-01-14 12:53 | P.SSS ---
Patient History Date of Service: 01/14/18 Reason for admission: Chest pain History of Present Illness: Ms Longoria is a 77-year-old woman with history of insulin-dependent diabetes mellitus, hypertension, CHF on p.r.n. oxygen at home, obesity, who about 3 or 4 days ago she received flu vaccine. After that she gravelly start feeling more weak, having dry cough, associated with on and off chest pain. She described the pain substernal, without radiation, and getting worse with movements or coughing, without nausea, vomiting, or shortness of breath associated. Lab work shows normal WBC count, troponin I normal, EKG without acute changes. Allergies Sulfa (Sulfonamide Antibiotics) Allergy (Intermediate, Verified 01/13/18 00:08) Shortness of breath Home Medications: Gabapentin [Neurontin*] 600 mg PO TID 12/29/12 Insulin Detemir [Levemir] 66 units SQ BEDTIME 12/29/12 Magnesium Oxide [Magnesium] 400 mg PO DAILY 12/29/12 Metformin HCl [Glucophage*] 1,000 mg PO BID 12/29/12 Insulin Aspart Protam & Aspart [Novolog Mix 70-30 Flexpen Syrn] 50 unit SQ DAILY AT SUPPER 06/12/17 Bimatoprost [Lumigan] 0.01 drop LEFT EYE BID 06/14/17 Brimonidine Tartrate/Timolol [Combigan 0.2%-0.5% Eye Drops] 5 drop LEFT EYE BEDTIME 06/14/17 Pantoprazole [Protonix Tab*] 40 mg PO ACB #30 tab 06/14/17 Thiamine Mononitrate [Vitamin B-1] 100 mg PO DAILY #30 tablet 06/17/17 Aspirin Chewable [Aspirin Chewable*] 81 mg PO DAILY 01/13/18 Atorvastatin Calcium [Lipitor] 80 mg PO BEDTIME 01/13/18 Fluoxetine HCl [Prozac] 40 mg PO BEDTIME 01/13/18 Losartan Potassium 50 mg PO DAILY 01/13/18 Multivits,Ca,Minerals/Iron/FA [One Daily Women's Health Tab] 1 tab PO DAILY Nitroglycerin 0.4 mg SL PRN PRN 01/13/18 Potassium Chloride 20 meq PO BID 01/13/18 Furosemide [Lasix*] 60 mg PO DAILY #30 tab 10/27/18 Metoprolol Tartrate [Lopressor*] 12.5 mg PO BID 6AM 6PM #60 tab 01/14/18 - Past Medical/Surgical History Has patient received pneumonia vaccine in the past: Yes Diabetic: Yes -: Glaucoma -: CHF, diastolic dysfunction -: HTN -: GERD -: DM Neuropathy -: History of Colon CA -: Diabetes mellitus type 2 -: Fatty liver with Morbid Obesity -: Cholecystectomy -: Colon resection -: Appendectomy -: Hysterectomy -: Right Rotator Cuff Repair -: Colectomy Psychosocial/ Personal History: She lives at home. Her daughter helps her at home. - Family History Family History: Reviewed- Non-Contributory - Family History Mother -: Cancer Notes: colon Brother -: Hypertension Sister -: Hypertension - Social History Smoking Status: Never smoker Alcohol use: No CD- Drugs: No Caffeine use: Yes Place of Residence: Home Review of Systems 10-point ROS is otherwise unremarkable Physical Examination - Vital Signs Temperature: 97.7 F Blood Pressure: 135/63 Pulse: 68 Respirations: 16 Pulse Ox (%): 97 - Physical Exam General: Alert, In no apparent distress HEENT: Atraumatic, PERRLA, Mucous membr. moist/pink, EOMI, Sclerae nonicteric Neck: Supple, 2+ carotid pulse no bruit, No LAD, Without JVD or thyroid abnormality Respiratory: Clear to auscultation bilaterally, Normal air movement Cardiovascular: Regular rate/rhythm, Normal S1 S2 Gastrointestinal: Normal bowel sounds, No tenderness Musculoskeletal: No tenderness Integumentary: No rashes Neurological: Normal gait, Normal speech, Normal strength at 5/5 x4 extr, Normal tone, Normal affect Lymphatics: No axilla or inguinal lymphadenopathy - Diagnosis (Problem(s)) (1) Chest pain Onset Date: 01/13/18 Current Visit: Yes Status: Acute Plan: Resolved. -cardiology had been consulted. Recommendation appreciated at this time -echocardiogram within normal limits -increase Lasix and added metoprolol to the medication regimen -no further workup needed. -outpatient follow up in 2 weeks with cardiology Qualifiers: Chest pain type: other chest pain Qualified Code(s): R07.89 - Other chest pain; R07.8 - Other chest pain (2) CHF (congestive heart failure) Onset Date: 06/13/17 Current Visit: No Status: Chronic Qualifiers: Heart failure type: diastolic Heart failure chronicity: chronic Qualified Code(s): I50.32 - Chronic diastolic (congestive) heart failure (3) Diabetes Current Visit: No Status: Chronic Qualifiers: Diabetes mellitus type: type 2 Diabetes mellitus long term care pharmacist insulin use: with halfway use Diabetes mellitus complication status: with ophthalmic complications Diabetes mellitus complication detail: with diabetic retinopathy Diabetic retinopathy severity: with mild nonproliferative retinopathy Diabetes mellitus macular edema: with macular edema Laterality: bilateral Qualified Code(s): 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, bilateral; Z79.4 - buttermaker helper (current) use of insulin; Z79.4 - detention (current) use of insulin; Z79.4 - detention (current) use of insulin; Z79.4 - buttermaker helper (current) use of insulin (4) COPD (chronic obstructive pulmonary disease) Onset Date: 06/16/17 Current Visit: No Status: Chronic Qualifiers: COPD type: unspecified COPD Qualified Code(s): J44.9 - Chronic obstructive pulmonary disease, unspecified (5) Depression Onset Date: 06/13/17 Current Visit: No Status: Chronic Qualifiers: Depression Type: unspecified (6) GERD (gastroesophageal reflux disease) Onset Date: 06/13/17 Current Visit: No Status: Chronic Qualifiers: Esophagitis presence: without esophagitis Qualified Code(s): K21.9 - Gastro -esophageal reflux disease without esophagitis (7) HTN (hypertension) Onset Date: 02/18/17 Current Visit: No Status: Chronic Qualifiers: Hypertension type: essential hypertension Qualified Code(s): I10 - Essential (primary) hypertension (8) Hyperlipidemia Onset Date: 06/13/17 Current Visit: No Status: Chronic Qualifiers: Hyperlipidemia type: unspecified Qualified Code(s): E78.5 - Hyperlipidemia , unspecified Treatment Summary: Overall and remained stable while here in the hospital Admitted for chest pain. Was consulted to be seen by cardiology. Cardiology recommended to increase the Lasix and added metoprolol to the home medication regimen. Basic increase to 60 mg daily along with metoprolol 12.5 b.i.d.. Echocardiogram with no acute abnormalities. Follow up with cardiology outpatient about 1-2 weeks. Chest pain did resolve while here in the hospital - Disposition Disposition: ROUTINE DISCHARGE Condition: GOOD Patient Discharge Instructions: Please f.u with Dr Manuel in 1 to 2 week post discharge. New medication. Metoprolol 12.5mg BID. Increase Lasix to 60mg Daily Diet: Regular Activity: Ad emma
--- NOTE | 2018-01-16 02:19 | PN ---
Date of Progress Note: 01/14/2018 Ms. Longoria had come in with chest pain. I saw her on 01/13/2018. She was admitted to Dr. Kothari. She had come in with atypical chest pain, cough and congestion, mild congestive heart failure. [place], she is asymptomatic, remains in sinus rhythm. Echocardiogram which was done was normal without a ny wall motion abnormalities. I think she can go home on her home medication, but she needs a higher dose of Lasix. She has had a stent in May of 2017, and because of her chest pain, I will do an an outpatient stress test on her in the near future and see her in the office. ALYSHA/GEORGETTE Voice ID: [id number] Report ID: [id number]
--- NOTE | 2018-01-16 02:35 | CON ---
Date of Consultation: 01/13/2018 The patient admitted on 01/12/[address] Kothari's service, I saw the patient on 01/13/2018. Reason For Consultation: CHF and chest pain. History Of Present Illness: Ms. Longoria is a 77-year-old black woman has a history of coronary arter y disease status post LAD stent in May of 2017. At that time, she had a normal echocardiogram. Sh e basically really came in with cough, congestion, pleuritic chest pain. Chest x-ray showed mild CHF . Denied any PND, orthopnea, pedal edema, palpitations, or syncope. Denied any fever or chills. He r cough was nonproductive. She was pain free this morning. Her troponin was negative. Allergies: INCLUDE SULFA. Review of Systems: Negative. Social History: Negative. Family History: Negative. Medications: At home include Aspirin, Lipitor, multiple inhalers, Lasix, insulin, Neurontin, losarta n, magnesium, metformin, Protonix and potassium. Physical Examination: Vital signs: She weighed 250 pounds. Blood pressure is 197/98. HEENT: Negative. Neck: Supple with no bruit. Chest: Chest reveals some rales at the bases. Cardiac: Revealed a regular rhythm and rate with an S4 gallops. Abdomen: Benign. Extremities: Revealed no clubbing, cyanosis, or edema. Diagnostic Data: Her hemoglobin was 10.8, BNP was 598. The rest of it was normal. Impression And Plan: 1.Atypical chest pain, I think it is pleuritic secondary to bronchitis. She is having cough and con gestion. 2.Mild congestive heart failure on chest x-ray being treated with Lasix. The patient is clear of ra les this morning and having no shortness of breath. 3.History of coronary artery disease, status post stent in May of 2017. I think I can make arrang ements for her to have an outpatient stress test in the near future. There is an another echocardiog moose pending. Her other problems include COPD, diabetes, neuropathy, hypertension, and gastroesophage al reflux, as well as dyslipidemia. All of those are stable at this point. Her blood pressure defin itely is better controlled and I would probably increase the dose of losartan when she goes home and consider calcium channel josy in addition as well. ALYSHA/KALLIL Voice ID: [id number] Report ID: [id number]
--- NOTE | 2018-01-16 08:15 | ECHO ---
HEIGHT: 5 ft 2 in WEIGHT: 252 lb 12.8 oz DATE OF STUDY: 01/13/[address]: 2-DIMENSIONAL: YES M.MODE: YES DOPPLER: YES COLOR FLOW: YES TDS: NO PORTABLE: NO DEFINITY: NO BUBBLE STUDY: NO DIAGNOSIS: CHEST PAIN, CONGESTIVE HEART FAILURE CARDIAC HISTORY: CATHERIZATION: YES SURGERY: NO PROSTHETIC VALVE: NO PACEMAKER: NO MEASUREMENTS (cm) DIASTOLIC (NORMALS) SYSTOLIC (NORMALS) IVSd 1.0 (0.6-1.2) LA Diam 4.3 (1.9-4.0) LVEF 57% LVIDd 4.3 (3.5-5.7) LVIDs 3.0 (2.0-3.5) %FS 30% LVPWd 1.0 (0.6-1.2) Ao Diam 2.4 (2.0-3.7) 2 DIMENSIONAL ASSESSMENT: RIGHT ATRIUM: NORMAL LEFT ATRIUM: DILATED RIGHT VENTRICLE: NORMAL LEFT VENTRICLE: NORMAL TRICUSPID VALVE: NORMAL MITRAL VALVE: MITRAL ANNULAR CALCIFICATION PULMONIC VALVE: NORMAL AORTIC VALVE: SCLEROTIC PERICARDIAL EFFUSION: NONE AORTIC ROOT: NORMAL LEFT VENTRICULAR WALL MOTION: NORMAL DOPPLER/COLOR FLOW: MILD TRICUSPID REGURGITATION. COMMENTS: MILD TRICUSPID REGURGITATION. SEVERE PULMONARY HYPERTENSION. RIGHT VENTRICULAR SYSTOLIC PRESSURE 62 MMHG. NORMAL LEFT VENTRICULAR SIZE AND FUNCTION. MITRAL ANNULAR CALCIFICATION. AORTIC SCLEROSIS. TECHNOLOGIST: MICHAEL JEONG
== END 2018-01-14 13:46 | disposition home or self-care (01) ==
LOC: ER 18:10 → ERHOLD 20:46 → 2ND 22:30
PROVIDERS: ADMIT Internal Medicine; ATTEND Internal Medicine
DX: I11.0 Hypertensive heart disease with heart failure (principal); I50.33 Acute on chronic diastolic (congestive) heart failure; E11.9 Type 2 diabetes mellitus without complications; E78.5 Hyperlipidemia, unspecified; E66.9 Obesity, unspecified; Z68.42 Body mass index [BMI] 45.0-49.9, adult; J44.9 Chronic obstructive pulmonary disease, unspecified; F32.9 Major depressive disorder, single episode, unspecified; I25.10 Atherosclerotic heart disease of native coronary artery without angina pectoris; Z95.5 Presence of coronary angioplasty implant and graft; Z85.038 Personal history of other malignant neoplasm of large intestine; Z88.2 Allergy status to sulfonamides
CPT/HCPCS: 36415; 71045; 80048 ×2; 80076; 81003; 82962 ×6; 83690; 83735; 83880; 84484 ×4; 85025 ×2; 85610; 87086; 87088; 93005; 93306; 96372; 96374; 96375; 99285; J2405; G0378

== ENCOUNTER 2019-02-19 18:24 | Inpatient (IN) | payer OTHER ==
[2019-02-19 19:52] LABS: Basophils % 0.6 % (0-1.3); Lymphocytes % 19.9 % (15.3-44.8); MPV 8.8 fL (7.6-11.3); RBC Red Blood Cell Count 3.97 M/uL (3.86-4.86)
[2019-02-19 19:53] LABS: Protime INR 1.04
--- NOTE | 2019-02-19 19:53 | RAD REPORT ---
EXAM DESCRIPTION: RAD - Chest Single View - 02/19/2019 7:21 pm CLINICAL HISTORY: CHEST PAIN Chest pain. COMPARISON: Chest Single View dated 01/12/2018; Chest Single View dated 06/15/2017; Chest Single View dated 06/12/2017; Chest Pa And Lat (2 Views) dated 02/18/2017 FINDINGS: Portable technique limits examination quality. The lungs are grossly clear. The heart is mildly enlarged in size. No displaced fractures. IMPRESSION: No acute intrathoracic process suspected.
[2019-02-19 20:07] LABS: ALT/SGPT 25 U/L (12-78); AST/SGOT 20 U/L (15-37); Albumin 3.2 g/dL (3.4-5.0); Alkaline Phosphatase 139 U/L (45-117); BUN Blood Urea Nitrogen 11 mg/dL (7-18); Bicarbonate 27 mmol/L (21-32); Bilirubin Direct 0.1 mg/dL (0-0.2); Bilirubin Total 0.3 mg/dL (0.2-1.0); Glucose Level 146 mg/dL (74-106); Magnesium 1.8 mg/dL (1.8-2.4); NT PRO-BNP 420 pg/mL (<450); Potassium 3.7 mmol/L (3.5-5.1); Protein, Total 7.7 g/dL (6.4-8.2); Sodium Level 139 mmol/L (136-145); Troponin (Emerg Dept Use Only) < 0.02 ng/mL (0.0-0.045)
--- NOTE | 2019-02-19 21:32 | EDPHYS ---
Physician Documentation [facility] Name: Gloria Longoria Age: 78 yrs Sex: Female : 1940 Arrival Date: 02/19/2019 Time: 18:26 Bed 26 Private MD: Babar Wang ED Physician Tony Horta HPI: 02/20 03:19 This 78 yrs old Black Female presents to ER via Wheelchair with complaints of Chest tw4 Pain, High Blood Pressure. 03:19 The patient or guardian reports chest pain that is located primarily in the anterior tw4 chest wall, left. Onset: today. The pain does not radiate. Associated signs and symptoms: The patient has no apparent associated signs or symptoms. The chest pain is described as dull. Duration: The patient or guardian reports a single episode. Modifying factors: The symptoms are alleviated by nothing. the symptoms are aggravated by nothing. Severity of pain: At its worst the pain was moderate in the emergency department the pain is unchanged. The patient has not experienced similar symptoms in the past. Historical: - Allergies: 02/19 18:35 Sulfa (Sulfonamide Antibiotics); aa5 - PMHx: 18:35 CHF; colon cancer; Diabetes - IDDM; Hypertension; Pneumonia; aa5 - Immunization history:: Flu vaccine is not up to date. - Social history:: Smoking status: Patient/guardian denies using tobacco. - Ebola Screening: : No symptoms or risks identified at this time. ROS: 02/20 03:19 Constitutional: Negative for fever, chills, and weight loss, Eyes: Negative for injury, tw4 pain, redness, and discharge. Respiratory: Negative for shortness of breath, cough, wheezing, and pleuritic chest pain, Abdomen/GI: Negative for abdominal pain, nausea, vomiting, diarrhea, and constipation, Back: Negative for injury and pain, MS/Extremity: Negative for injury and deformity, Skin: Negative for injury, rash, and discoloration, Neuro: Negative for headache, weakness, numbness, tingling, and seizure. Cardiovascular: Positive for chest pain, Negative for edema, orthopnea. Exam: 03:17 Constitutional: This is a well developed, well nourished patient who is awake, alert, tw4 and in no acute distress. Head/Face: Normocephalic, atraumatic. Chest/axilla: Normal chest wall appearance and motion. Nontender with no deformity. No lesions are appreciated. Cardiovascular: Regular rate and rhythm with a normal S1 and S2. No gallops, murmurs, or rubs. Normal PMI, no JVD. No pulse deficits. Respiratory: Lungs have equal breath sounds bilaterally, clear to auscultation and percussion. No rales, rhonchi or wheezes noted. No increased work of breathing, no retractions or nasal flaring. Abdomen/GI: Soft, non-tender, with normal bowel sounds. No distension or tympany. No guarding or rebound. No evidence of tenderness throughout. Back: No spinal tenderness. No costovertebral tenderness. Full range of motion. MS/ Extremity: Pulses equal, no cyanosis. Neurovascular intact. Full, normal range of motion. Neuro: Awake and alert, GCS 15, oriented to person, place, time, and situation. Cranial nerves II-XII grossly intact. Motor strength 5/5 in all extremities. Sensory grossly intact. Cerebellar exam normal. Normal gait. Vital Signs: 02/19 18:35 BP 159 / 57; Pulse 73; Resp 16 S; Temp 97.9(TE); Pulse Ox 97% on R/A; Weight 104.33 kg aa5 (R); Height 5 ft. 2 in. (157.48 cm) (R); Pain 7/10; 19:30 BP 167 / 89; Pulse 81; Resp 22 S; Temp 97.8(O); Pulse Ox 97% on R/A; cc3 20:15 BP 175 / 80; Pulse 73; Resp 20 S; Pulse Ox 98% on R/A; cc3 21:30 BP 169 / 68; Pulse 75; Resp 19 S; Pulse Ox 97% on R/A; cc3 22:00 BP 175 / 81; Pulse 72; Resp 19 S; Pulse Ox 97% on R/A; cc3 18:35 Body Mass Index 42.07 (104.33 kg, 157.48 cm) aa5 MDM: 18:40 Patient medically screened. tw4 02/20 03:19 Differential diagnosis: cholecystitis, Cholelithiasis costochondritis, esophagitis, tw4 gastritis, pulmonary embolus, stable angina, thoracic aortic disection. Data reviewed: vital signs, nurses notes. Data interpreted: Pulse oximetry: Interpretation: normal. Test interpretation: by ED physician or midlevel provider: ECG. Counseling: I had a detailed discussion with the patient and/or guardian regarding: the historical points, exam findings, and any diagnostic results supporting the discharge/admit diagnosis. Physician consultation: Ramiro Hicks MD regarding admission, to the telemetry unit. patient's condition, and will see patient in ED. Special discussion: I discussed with the patient/guardian in detail that at this point there is no indication for admission to the hospital. It is understood, however, that if the symptoms persist or worsen the patient needs to return immediately for re-evaluation. 02/19 18:39 Order name: Basic Metabolic Panel; Complete Time: 21:18 tw4 02/19 21:21 Interpretation: Normal except: GLUC 146; GFR 75. tw4 02/19 18:39 Order name: CBC with Diff; Complete Time: 21:19 tw4 02/19 21:21 Interpretation: Normal except: HGB 11.3; HCT 34.0; RDW 17.0. tw4 02/19 18:39 Order name: LFT's; Complete Time: 21:19 tw4 02/19 21:21 Interpretation: Normal except: ALB 3.2; GLOB 4.5; A/G 0.7; ALK 139. tw4 02/19 18:39 Order name: Magnesium; Complete Time: 21:19 tw4 02/19 21:21 Interpretation: Within normal limits: MG 1.8. tw4 02/19 18:39 Order name: NT PRO-BNP; Complete Time: 21:19 tw4 02/19 21:21 Interpretation: Within normal limits: NT PRO-BNP 420. tw4 02/19 18:39 Order name: PT-INR; Complete Time: 21:20 tw4 02/19 21:22 Interpretation: Within normal limits: PT 12.3. tw4 02/19 18:39 Order name: Troponin (emerg Dept Use Only); Complete Time: 21:20 tw4 02/19 21:22 Interpretation: Within normal limits: TROPED < 0.02. tw4 02/19 21:51 Order name: CBC with Automated Diff EDMS 02/19 21:51 Order name: CBC with Automated Diff EDMS 02/19 21:51 Order name: Lipid Profile EDMS 02/19 21:51 Order name: Lipid Profile EDIN 02/19 21:51 Order name: Troponin I EDIN 02/19 21:51 Order name: Troponin I EDIN 02/19 21:51 Order name: Troponin I EDIN 02/19 18:39 Order name: XRAY Chest (1 view); Complete Time: 21:20 tw4 02/19 21:22 Interpretation: No acute disease. tw4 02/19 18:39 Order name: EKG; Complete Time: 18:42 tw4 02/19 18:39 Order name: Cardiac monitoring; Complete Time: 19:05 tw4 02/19 18:39 Order name: EKG - Nurse/Tech; Complete Time: 19:37 tw4 02/19 18:39 Order name: IV Saline Lock; Complete Time: 01:10 tw4 02/19 18:39 Order name: Labs collected and sent; Complete Time: 19:37 tw4 02/19 18:39 Order name: O2 Per Protocol; Complete Time: 19:06 tw4 02/19 18:39 Order name: O2 Sat Monitoring; Complete Time: 19:06 tw4 02/19 21:51 Order name: CONS Physician Consult EDIN 02/19 21:51 Order name: Echo with Doppler EDIN 02/19 21:51 Order name: EKG Electrocardiogram EDIN 02/19 21:51 Order name: EKG Electrocardiogram EDIN EC:17 Rate is 76 beats/min. Rhythm is regular, 1st Degree Block with No ectopy. QRS [place] is tw4 Normal. CA interval is prolonged. QRS interval is normal. QT interval is normal. No Q waves. T waves are Normal. No ST changes noted. Clinical impression: NSR w/ Non-specific ST/T Changes and 1st degree heart block. Interpreted by me. Reviewed by me. Administered Medications: No medications were administered Disposition: 02/19/19 21:31 Hospitalization ordered by Ramiro Hicks for Inpatient Admission. Preliminary diagnosis is Chest pain, unspecified. - Bed requested for Telemetry/MedSurg (Inpatient). - Status is Inpatient Admission. aa5 - Condition is Stable. - Problem is new. - Symptoms have improved. UTI on Admission? No Signatures: Dispatcher [employer] [facility] Jessica Roche RN RN aa5 Vandana Tobin RN RN Tony Horta MD MD tw4 Corrections: (The following items were deleted from the chart) 02/19 21:59 21:31 Hospitalization Ordered by Ramiro Hicks MD for Inpatient Admission. Preliminary cg diagnosis is Chest pain, unspecified. Bed requested for Telemetry/MedSurg (Inpatient). Status is Inpatient Admission. Condition is Stable. Problem is new. Symptoms have improved. UTI on Admission? No. tw4 02/20 05:23 12 21:59 02/19/2019 21:31 Hospitalization Ordered by Ramiro Hicks MD for Inpatient cg Admission. Preliminary diagnosis is Chest pain, unspecified. Bed requested for [facility] ER HOLD. Status is Inpatient Admission. Condition is Stable. Problem is new. Symptoms have improved. UTI on Admission? No. cg 02/20 06:09 05:23 02/19/2019 21:31 Hospitalization Ordered by Ramiro Hicks MD for Inpatient cg Admission. Preliminary diagnosis is Chest pain, unspecified. Bed requested for Telemetry/MedSurg (Inpatient). Status is Inpatient Admission. Condition is Stable. Problem is new. Symptoms have improved. UTI on Admission? No. cg 08:24 06:09 02/19/2019 21:31 Hospitalization Ordered by Ramiro Hicks MD for Inpatient aa5 Admission. Preliminary diagnosis is Chest pain, unspecified. Bed requested for Telemetry/MedSurg (Inpatient). Status is Inpatient Admission. Condition is Stable. Problem is new. Symptoms have improved. UTI on Admission? No. cg
--- NOTE | 2019-02-19 21:32 | ER ---
Nurse's Notes [facility] Name: Gloria Longoria Age: 78 yrs Sex: Female : 1940 Arrival Date: 02/19/2019 Time: 18:26 Bed 26 Private MD: Babar Wang Diagnosis: Chest pain, unspecified Presentation: 02/19 18:34 Presenting complaint: Patient states: chest pain/left scapular pain and productive aa5 cough. Pt states "it's been going on for a while now". Transition of care: patient was not received from another setting of care. Onset of symptoms was 2018. Risk Assessment: Do you want to hurt yourself or someone else? Patient reports no desire to harm self or others. Care prior to arrival: None. 18:34 Acuity: MALAIKA 3 aa5 18:34 Method Of Arrival: Wheelchair aa5 18:45 Initial Sepsis Screen: Does the patient meet any 2 criteria? No. Patient's initial ca1 sepsis screen is negative. Does the patient have a suspected source of infection? No. Patient's initial sepsis screen is negative. Historical: - Allergies: 18:35 Sulfa (Sulfonamide Antibiotics); aa5 - PMHx: 18:35 CHF; colon cancer; Diabetes - IDDM; Hypertension; Pneumonia; aa5 - Immunization history:: Flu vaccine is not up to date. - Social history:: Smoking status: Patient/guardian denies using tobacco. - Ebola Screening: : No symptoms or risks identified at this time. Screenin:40 Abuse screen: Denies threats or abuse. Denies injuries from another. Nutritional ca1 screening: No deficits noted. Tuberculosis screening: No symptoms or risk factors identified. Fall Risk IV access (20 points). Gait- Impaired (20 pts.). Total Tinsley Fall Scale indicates Low Risk Score (25-44 pts). Fall prevention measures have been instituted. Side Rails Up X 2 Frequent Obs/Assesments occuring Family Present and informed to notify staff if they need to leave bedside As available Patient and Family Educated on Fall Prevention Program and strategies. Assessment: 19:30 General: Appears in no apparent distress. comfortable, Behavior is calm, cooperative, cc3 appropriate for age. Pain: Complains of pain in chest Pain does not radiate. Pain began 1 day ago. Neuro: Level of Consciousness is awake, alert, obeys commands, Oriented to person, place, time, situation, Appropriate for age. Cardiovascular: Heart tones S1 S2 present Capillary refill < 3 seconds in bilateral fingers Patient's skin is warm and dry. Respiratory: Airway is patent Respiratory effort is even, unlabored, Respiratory pattern is regular, symmetrical, Breath sounds are clear bilaterally. GI: Abdomen is round obese, Bowel sounds present X 4 quads. : No signs and/or symptoms were reported regarding the genitourinary system. 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 Derm: Skin is fragile, is thin, Skin is normal, black. Musculoskeletal: Circulation, motion, and sensation intact. Range of motion: intact in all extremities. 20:18 Reassessment: Patient appears in no apparent distress at this time. Patient and/or cc3 family updated on plan of care and expected duration. Pain level reassessed. Patient is alert, oriented x 3, equal unlabored respirations, skin warm/dry/pink. 21:41 Reassessment: Patient appears in no apparent distress at this time. Patient and/or cc3 family updated on plan of care and expected duration. Pain level reassessed. Patient is alert, oriented x 3, equal unlabored respirations, skin warm/dry/pink. 22:00 Reassessment: Patient appears in no apparent distress at this time. Patient and/or cc3 family updated on plan of care and expected duration. Pain level reassessed. Patient is alert, oriented x 3, equal unlabored respirations, skin warm/dry/pink. Patient is ER Hold, charting continued in [facility]. Patient denies pain at this time. Vital Signs: 18:35 BP 159 / 57; Pulse 73; Resp 16 S; Temp 97.9(TE); Pulse Ox 97% on R/A; Weight 104.33 kg aa5 (R); Height 5 ft. 2 in. (157.48 cm) (R); Pain 7/10; 19:30 BP 167 / 89; Pulse 81; Resp 22 S; Temp 97.8(O); Pulse Ox 97% on R/A; cc3 20:15 BP 175 / 80; Pulse 73; Resp 20 S; Pulse Ox 98% on R/A; cc3 21:30 BP 169 / 68; Pulse 75; Resp 19 S; Pulse Ox 97% on R/A; cc3 22:00 BP 175 / 81; Pulse 72; Resp 19 S; Pulse Ox 97% on R/A; cc3 18:35 Body Mass Index 42.07 (104.33 kg, 157.48 cm) aa5 ED Course: 18:26 Patient arrived in ED. rg4 18:26 Babar Wang MD is Private Physician. rg4 18:34 Arm band placed on. aa5 18:35 Triage completed. aa5 18:40 Tony Horta MD is Attending Physician. tw4 18:40 Shala Clancy RN is Primary Nurse. ca1 18:40 Patient has correct armband on for positive identification. Bed in low position. Call ca1 light in reach. Side rails up X2. director foundation on. Pulse ox on. NIBP on. Warm blanket given. 18:40 EKG done, by ED staff, reviewed by Tony Horta MD. ca1 18:50 Missed attempt(s): 22 gauge in right antecubital area. Bleeding controlled, band aid ca1 applied, catheter tip intact. Patient maintains SpO2 saturation greater than 95% on room air. 19:00 Missed attempt(s): 22 gauge in left antecubital area. Bleeding controlled, band aid ca1 applied, catheter tip intact. 19:21 XRAY Chest (1 view) In Process Unspecified. EDMS 19:30 Missed attempt(s): 22 gauge in right hand. Bleeding controlled, band aid applied, cc3 catheter tip intact. 21:23 Francy Miller is Primary Nurse. cc3 21:31 Ramiro Hicks MD is Hospitalizing Provider. tw4 22:00 No provider procedures requiring assistance completed. Patient admitted, IV remains in cc3 place. 02/20 01:10 Inserted saline lock: 22 gauge in right hand, using aseptic technique. rr5 08:23 EKG done, by environmental test technician. at1 Administered Medications: No medications were administered Outcome: 12 21:31 Decision to Hospitalize by Provider. tw4 22:00 Admitted to ER Hold. [facility] for further documentation. cc3 22:00 Condition: stable 22:00 Instructed on the need for admit, Demonstrated understanding of instructions. 02/20 08:10 Admitted to Tele accompanied by tech, via stretcher, with chart, Report called to aa5 Sonia, RN Condition: stable 08:24 Patient left the ED. aa5 Signatures: Dispatcher [employer] EDMS Jessica Roche, RN RN aa5 Suzanne Monet, certified fraud examiner EKG Tat1 Imani Tobin rg4 Tony Horta MD MD tw4 Francy Miller cc3 Quoc Chavez RN RN rr5 Shala Clancy RN RN ca1 Corrections: (The following items were deleted from the chart) 02/19 18:37 18:34 Presenting complaint: Patient states: chest pain and productive cough. Pt states aa5 "it's been going on for a while now" aa5
[2019-02-19] MEDS ORDERED: ALPRAZOLAM 0.25 MG TABLET PO PRN (21:47)
[2019-02-20] MEDS ORDERED: ACETAMINOPHEN 500 MG TAB ONE (01:17)
[2019-02-20] MEDS: ACETAMINOPHEN 500 MG TAB PO PRN (01:25)
[2019-02-20 05:45] LABS: Absolute Lymphocytes (CBC) 1.7 K/uL (0.7-4.9); Basophils % 0.2 % (0-1.3); Hematocrit 30.7 % (36.0-45.0); Lymphocytes % 19.3 % (15.3-44.8); MPV 8.7 fL (7.6-11.3); RBC Red Blood Cell Count 3.63 M/uL (3.86-4.86)
[2019-02-20] MEDS: PANTOPRAZOLE 40MG TABLET PO SCH (07:30)
[2019-02-20] MEDS ORDERED: PANTOPRAZOLE 40MG TABLET PO ONE (07:42)
--- NOTE | 2019-02-20 08:02 | EKG ---
Test Date: 2019-02-19 Test Time: 18:51:51 Sex Offender Treatment Professional: FLOR MEASUREMENT RESULTS: Intervals: Rate: 76 KS: 216 QRSD: 80 QT: 420 QTc: 472 [place]: P: 37 KS: 216 QRS: 0 T: 103 INTERPRETIVE STATEMENTS: Sinus rhythm with 1st degree AV block Possible Anterior infarct, age undetermined Abnormal ECG Compared to ECG 01/12/2018 19:24:13 No significant changes Electronically Signed On 02-20-19 08:01:20 COMMERCIAL DEVELOPMENT MANAGER by Antonio Murphy
[2019-02-20] MEDS ORDERED: ENOXAPARIN 40 MG/0.4 ML SQ SCH (09:00)
[2019-02-20] MEDS ORDERED: REGADENOSON 0.4 MG/5 ML SYR IV ONE (09:00)
[2019-02-20] MEDS: METOPROLOL TAR 50 MG TAB PO SCH ×2 (09:00→21:28)
[2019-02-20] MEDS ORDERED: BIMATOPROST LEFT EYE SCH (09:00)
--- NOTE | 2019-02-20 10:04 | P.HP ---
Certification for Inpatient Patient admitted to: Observation With expected LOS: <2 Midnights Patient will require the following post-hospital care: None Practitioner: I am a practitioner with admitting privileges, knowledge of patient current condition, hospital course, and medical plan of care. Services: Services provided to patient in accordance with Admission requirements found in Title 42 Section 412.3 of the Code of Federal Regulations Patient History Date of Service: 02/19/19 Reason for admission: CHEST PAIN RULE OUT ACUTE CORONARY SYNDROME History of Present Illness: PATIENT IS A 78-YEAR-OLD FEMALE CAME TO THE HOSPITAL WITH CHEST DISCOMFORT. PAIN WAS MAINLY IN THE STERNAL REGION. IT RADIATED DOWN HER LEFT ARM. SHE SAYS SHE WAS FEELING WEAK AND LIGHTHEADED. SHE HAS HAD A RECENT CARDIAC CATHETERIZATION WITH LAD STENTING. SHE ALSO HAD A RIGHT CORONARY ARTERY LESION. PATIENT HAS BEEN ON MEDICAL THERAPY AND HAS BEEN TAKING HER MEDICATION PRESCRIBED. SHE DENIES ANY OTHER COMPLAINTS. SHE IS FEELING BETTER. NO NAUSEA NO SHORTNESS OF BREATH. PATIENT WILL BE ADMITTED TO THE HOSPITAL FOR FURTHER CARDIAC WORKUP. PATIENT WILL GET AN ECHOCARDIOGRAM WITH SERIAL TROPONINS WELL ANOTHER EKG. PATIENT WILL BE ADMITTED TO THE HOSPITAL TO BE RULED OUT FOR ACUTE CORONARY SYNDROME. Allergies Sulfa (Sulfonamide Antibiotics) Allergy (Intermediate, Verified 01/13/18 00:08) Shortness of breath Home Medications: Gabapentin [Neurontin*] 600 mg PO TID 12/29/12 Insulin Detemir [Levemir] 66 units SQ BEDTIME 12/29/12 Magnesium Oxide [Magnesium] 400 mg PO DAILY 12/29/12 Metformin HCl [Glucophage*] 1,000 mg PO BID 12/29/12 Insulin Aspart Protam & Aspart [Novolog Mix 70-30 Flexpen Syrn] 50 unit SQ DAILY AT SUPPER 06/12/17 Bimatoprost [Lumigan] 0.01 drop LEFT EYE BID 06/14/17 Brimonidine Tartrate/Timolol [Combigan 0.2%-0.5% Eye Drops] 5 drop LEFT EYE BEDTIME 06/14/17 Pantoprazole [Protonix Tab*] 40 mg PO ACB #30 tab 06/14/17 Thiamine Mononitrate (Vit B1) [Vitamin B-1] 100 mg PO DAILY #30 tablet 06/17/17 Aspirin Chewable [Aspirin Chewable*] 81 mg PO DAILY 01/13/18 Atorvastatin Calcium [Lipitor] 80 mg PO BEDTIME 01/13/18 Fluoxetine HCl [Prozac] 40 mg PO BEDTIME 01/13/18 Losartan Potassium 50 mg PO DAILY 01/13/18 Multivit,Calc,Mins/Iron/Folic [One Daily Women's Health Tab] 1 tab PO DAILY Nitroglycerin 0.4 mg SL PRN PRN 01/13/18 Potassium Chloride 20 meq PO BID 01/13/18 Furosemide [Lasix*] 60 mg PO DAILY #30 tab 01/14/18 Metoprolol Tartrate [Lopressor*] 12.5 mg PO BID 6AM 6PM #60 tab 01/14/18 - Past Medical/Surgical History Has patient received pneumonia vaccine in the past: Yes Diabetic: Yes -: Glaucoma -: CHF, diastolic dysfunction -: HTN -: GERD -: DM Neuropathy -: History of Colon CA -: Diabetes mellitus type 2 -: Fatty liver with Morbid Obesity -: Cholecystectomy -: Colon resection -: Appendectomy -: Hysterectomy -: Right Rotator Cuff Repair -: Colectomy Psychosocial/ Personal History: She lives at home. Her daughter helps her at home. - Family History Mother Medical History: Cancer Notes: colon Brother Medical History: Hypertension Sister Medical History: Heart disease, Hypertension, Lung disease, Cancer - Social History Smoking Status: Never smoker Alcohol use: No CD- Drugs: No Caffeine use: Yes Place of Residence: Home Review of Systems 10-point ROS is otherwise unremarkable Physical Examination - Vital Signs Temperature: 97.9 F Blood Pressure: 172/74 Pulse: 80 Respirations: 16 Pulse Ox (%): 95 - Physical Exam General: Alert, In no apparent distress, Oriented x3 HEENT: Atraumatic, PERRLA, Mucous membr. moist/pink, EOMI, Sclerae nonicteric Neck: Supple, 2+ carotid pulse no bruit, No LAD, Without JVD or thyroid abnormality Respiratory: Clear to auscultation bilaterally, Normal air movement Cardiovascular: Regular rate/rhythm, Normal S1 S2, Systolic murmur Capillary refill: <2 Seconds Gastrointestinal: Normal bowel sounds, Soft and benign, Non-distended, No tenderness Musculoskeletal: No clubbing, No swelling, No tenderness Integumentary: No rashes Neurological: Normal gait, Normal speech, Normal strength at 5/5 x4 extr, Normal tone, Sensation intact, Cranial nerves 3-12 intact, Normal affect Lymphatics: No axilla or inguinal lymphadenopathy - Studies Laboratory Data (last 24 hrs) 02/19/19 19:30: PT 12.3, INR 1.04 02/19/19 19:30: WBC 10.1, Hgb 11.3 L, Hct 34.0 L, Plt Count 274 02/19/19 19:30: Sodium 139, Potassium 3.7, BUN 11, Creatinine 0.89, Glucose 146 H, Magnesium 1.8, Total Bilirubin 0.3, AST 20, ALT 25, Alkaline Phosphatase 139 H Assessment & Plan - Problems (Diagnosis) (1) Chest pain Onset Date: 07/26/16 Current Visit: No Status: Acute Qualifiers: Chest pain type: chest pain on breathing Qualified Code(s): R07.1 - Chest pain on breathing; R07.81 - Pleurodynia (2) CHF (congestive heart failure) Onset Date: 06/13/17 Current Visit: No Status: Chronic Qualifiers: Heart failure type: diastolic Heart failure chronicity: chronic Qualified Code(s): I50.32 - Chronic diastolic (congestive) heart failure (3) COPD (chronic obstructive pulmonary disease) Onset Date: 06/16/17 Current Visit: No Status: Chronic Qualifiers: COPD type: unspecified COPD Qualified Code(s): J44.9 - Chronic obstructive pulmonary disease, unspecified (4) Depression Onset Date: 06/13/17 Current Visit: No Status: Chronic Qualifiers: Depression Type: unspecified (5) Diabetes mellitus Onset Date: 06/13/17 Current Visit: No Status: Chronic Qualifiers: Diabetes mellitus type: type 2 Diabetes mellitus nursing home insulin use: with exterminator termite use Diabetes mellitus complication status: with unspecified complications (6) Diabetic neuropathy Onset Date: 06/13/17 Current Visit: No Status: Chronic Qualifiers: Diabetes mellitus type: type 2 Diabetes mellitus complication detail: diabetic polyneuropathy Qualified Code(s): E11.42 - Type 2 diabetes mellitus with diabetic polyneuropathy (7) GERD (gastroesophageal reflux disease) Onset Date: 06/13/17 Current Visit: No Status: Chronic Qualifiers: Esophagitis presence: without esophagitis Qualified Code(s): K21.9 - Gastro -esophageal reflux disease without esophagitis (8) Hyperlipidemia Onset Date: 06/13/17 Current Visit: No Status: Chronic Qualifiers: Hyperlipidemia type: unspecified Qualified Code(s): E78.5 - Hyperlipidemia , unspecified - Plan 1. SERIAL TROPONINS AND EKG 2. CARDIOLOGY CONSULTATION 3. ECHOCARDIOGRAM AND INPATIENT STRESS TEST(PENDING CARDIOLOGY EVALUATION) 4. ANTI-PLATELET THERAPY, ANTI COAGULATION, BETA-ACE, STATIN, AND O2 NEEDED 5. IV MORPHINE FOR PAIN 6. NITRO P.R.N. Discharge Plan: Home Plan to discharge in: 24 Hours - Advance Directives Does patient have a Living Will: No Does patient have a Durable POA for Healthcare: No - Code Status/Comfort Care Code Status Assessed: Yes Code Status: Full Code Critical Care: No Time Spent Managing PTS Care (In Minutes): 45
[2019-02-20] MEDS: ASPIRIN EC 81 MG TAB PO SCH (10:27)
[2019-02-20] MEDS: GABAPENTIN 300 MG CAP PO SCH ×3 (10:27→21:28)
[2019-02-20] MEDS: MAGNESIUM OXIDE 400 MG TAB PO SCH (10:27)
[2019-02-20] MEDS: LOSARTAN POTASSIUM 50 MG TABLET PO SCH (10:28)
[2019-02-20] MEDS: FUROSEMIDE 40 MG TABLET PO SCH (10:28)
[2019-02-20] MEDS: POTASSIUM CL SA 10 MEQ TAB PO SCH ×2 (10:28→21:29)
[2019-02-20 10:36] LABS: Urine Appearance CLEAR; Urine Bilirubin NEGATIVE (NEG); Urine Blood NEGATIVE (NEG); Urine Color YELLOW; Urine Glucose NEGATIVE (NEG); Urine Protein 3+ (NEG); Urine Specific Gravity 1.015 (1.005-1.030)
[2019-02-20 10:38] LABS: Urine Microscopic Reflex ORDER UMIC
[2019-02-20 10:48] LABS: Urine Bacteria >50 /HPF (<20); Urine Culture Reflex Order REFLEXED; Urine RBC <5 /HPF (NONE SEEN)
--- NOTE | 2019-02-20 11:01 | CON ---
History Of Present Illness: Mrs. Longoria came in the hospital with chest pain. She has a history of a stent in her mid LAD in May 2017. Since then, she has had a normal stress test. The pain she h as is pleuritic, occurs mostly with cough, not so much with a deep breath. Since she has been here i n the hospital, she has had electrocardiogram that does not show infarction, injury, or ischemia. 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 The patient has a very low cholesterol. She has underlying diabetes, hypertension, dy slipidemia. Outpatient Medications: Insulin, metformin, gabapentin, Lumigan eye drops, Combigan eye drops, Ana nix, thiamine, losartan, nitroglycerin, potassium chloride, Prozac, atorvastatin 80, aspirin 81, furo semide 60, metoprolol 12.5 b.i.d. Impression: This is probably not unstable angina. She certainly has coronary artery disease. May h ave progressed and have restenosed in her stents. So, we should do a stress test. DONTE/GEORGETTE Voice ID: [id number] Report ID: [id number]
--- NOTE | 2019-02-20 11:30 | EKG ---
Test Date: 2019-02-20 Test Time: 08:15:09 [employer]: HILARY MEASUREMENT RESULTS: Intervals: Rate: 84 SD: 196 QRSD: 82 QT: 406 QTc: 479 [place]: P: 80 SD: 196 QRS: 21 T: 102 INTERPRETIVE STATEMENTS: Sinus rhythm with occasional premature supraventricular complexes Cannot rule out Anterior infarct, age undetermined Abnormal ECG Compared to ECG 02/19/2019 18:51:51 supraventricular premature complex(es) now present First degree AV block no longer present Myocardial infarct finding still present Electronically Signed On 02-20-19 11:29:36 NEUROLOGICAL SURGEON by Antonoi Murphy
--- NOTE | 2019-02-20 11:46 | ECHO ---
HEIGHT: 5 ft 2 in WEIGHT: 104 lb 0 oz DATE OF STUDY: 02/20/[address]: Ramiro Hicks MD 2-DIMENSIONAL: YES M.MODE: YES DOPPLER: YES COLOR FLOW: YES TDS: NO PORTABLE: NO DEFINITY: NO BUBBLE STUDY: NO DIAGNOSIS: CHEST PAIN CARDIAC HISTORY: CATHERIZATION: YES SURGERY: NO PROSTHETIC VALVE: NO PACEMAKER: NO MEASUREMENTS (cm) DIASTOLIC (NORMALS) SYSTOLIC (NORMALS) IVSd 1.0 (0.6-1.2) LA Diam 3.9 (1.9-4.0) LVEF 68% LVIDd 4.2 (3.5-5.7) LVIDs 2.6 (2.0-3.5) %FS 37% LVPWd 1.1 (0.6-1.2) Ao Diam 2.6 (2.0-3.7) 2 DIMENSIONAL ASSESSMENT: RIGHT ATRIUM: NORMAL LEFT ATRIUM: NORMAL RIGHT VENTRICLE: NORMAL LEFT VENTRICLE: NORMAL TRICUSPID VALVE: NORMAL MITRAL VALVE: MITRAL ANNULAR CALCIFICATION PULMONIC VALVE: NORMAL AORTIC VALVE: NORMAL PERICARDIAL EFFUSION: NONE AORTIC ROOT: NORMAL LEFT VENTRICULAR WALL MOTION: NORMAL. DOPPLER/COLOR FLOW: INADEQUATE TRICUSPID REGURGITATION JET TO MEASURE RIGHT VENTRICULAR SYSTOLIC PRESSURE. NORMAL STUDY. COMMENTS: NORMAL LEFT VENTRCICULAR EJECTION FRACTION. MITRAL ANNULAR CALCIFICATION TECHNOLOGIST: MICHAEL JEONG
--- NOTE | 2019-02-20 12:39 | TREADPHA ---
DX: CHEST PAIN Date of Study: 02/20/19 Ht: 5 2 Wt: 104 lb 0 oz Consulting Physician: TACO MEDICATIONS: TYLENOL, ASPIRIN, LIPITOR, PROZAC, LOVENOX, COZAAR, LOPRESSOR, KLOR-CON HISTORY: 78 YEAR OLD FEMALE WITH COMPLAINTS OF CHEST PAIN. MEDICAL HISTORY OF DIABETES MELLITUS, HYPERTENSION, DYSLIPIDEMIA, CONGESTIVE HEART FAILURE PHYSICIAL EXAMINATION: RESTING B.P.: 182/87 RESTING H.R.: 83 RESTING EKG: SINUS, FIRST DEGREE AV BLOCK, LONG QT PROTOCOL: LEXISCAN EXERCISE TIME: 3:30 B.P. AT PEAK STRESS: 162/72 IMPRESSION: LEXISCAN INJECTED, CARDIOLITE INJECTED PER PROTOCOL, SEE NUCLEAR MEDICINE REPORT. NO SUPRA VENTRICULAR TACHYCARDIA, NO VENTRICULAR TACHYCARDIA, ONE PREMATURE VENTRICULAR COMPLEX POST, DENIED CHEST PAIN. NON DIAGNOSTIC EKG WITH LEXISCAN STRESS.
--- NOTE | 2019-02-20 12:52 | RAD REPORT ---
EXAM DESCRIPTION: NM - Rest Stress Cardiac Imaging - 02/20/2019 12:35 pm CLINICAL HISTORY: CP Chest pain. COMPARISON: Rest Stress Cardiac Imaging dated 07/26/2016 TECHNIQUE: The patient was administered approximately 10mCi of Tc 99m Sestamibi prior to resting SPE CT imaging of the heart. The patient was then administered approximately 30 mCi of Tc 99m Sestamibi f ollowing exercise or pharmacologic stress. Multiplanar SPECT images were reviewed. FINDINGS: Mild diminished radiopharmaceutical accumulation is noted in the LV apex and inferior wall with stress. No fixed defect is seen to suggest hibernating myocardium or scarred myocardium. The end diastolic volume is 92 ml, the end systolic volume is 40 ml, and the ejection fraction is 57 %. IMPRESSION: Mild stress-induced ischemia suspected involving the LV apex and inferior wall.
--- NOTE | 2019-02-20 14:42 | P.SSS ---
Patient History Date of Service: 02/20/19 Reason for admission: CHEST PAIN RULE OUT ACUTE CORONARY SYNDROME History of Present Illness: PATIENT IS A 78-YEAR-OLD FEMALE CAME TO THE HOSPITAL WITH CHEST DISCOMFORT. PAIN WAS MAINLY IN THE STERNAL REGION. IT RADIATED DOWN HER LEFT ARM. SHE SAYS SHE WAS FEELING WEAK AND LIGHTHEADED. SHE HAS HAD A RECENT CARDIAC CATHETERIZATION WITH LAD STENTING. SHE ALSO HAD A RIGHT CORONARY ARTERY LESION. PATIENT HAS BEEN ON MEDICAL THERAPY AND HAS BEEN TAKING HER MEDICATION PRESCRIBED. SHE DENIES ANY OTHER COMPLAINTS. SHE IS FEELING BETTER. NO NAUSEA NO SHORTNESS OF BREATH. PATIENT WILL BE ADMITTED TO THE HOSPITAL FOR FURTHER CARDIAC WORKUP. PATIENT WILL GET AN ECHOCARDIOGRAM WITH SERIAL TROPONINS WELL ANOTHER EKG. PATIENT WILL BE ADMITTED TO THE HOSPITAL TO BE RULED OUT FOR ACUTE CORONARY SYNDROME. Allergies Sulfa (Sulfonamide Antibiotics) Allergy (Intermediate, Verified 01/13/18 00:08) Shortness of breath Home Medications: Gabapentin [Neurontin*] 600 mg PO TID 12/29/12 Insulin Detemir [Levemir] 66 units SQ BEDTIME 12/29/12 Magnesium Oxide [Magnesium] 400 mg PO DAILY 12/29/12 Metformin HCl [Glucophage*] 1,000 mg PO BID 12/29/12 Insulin Aspart Protam & Aspart [Novolog Mix 70-30 Flexpen Syrn] 50 unit SQ DAILY AT SUPPER 06/12/17 Bimatoprost [Lumigan] 0.01 drop LEFT EYE BID 06/14/17 Brimonidine Tartrate/Timolol [Combigan 0.2%-0.5% Eye Drops] 5 drop LEFT EYE BEDTIME 06/14/17 Pantoprazole [Protonix Tab*] 40 mg PO ACB #30 tab 06/14/17 Thiamine Mononitrate (Vit B1) [Vitamin B-1] 100 mg PO DAILY #30 tablet 06/17/17 Aspirin Chewable [Aspirin Chewable*] 81 mg PO DAILY 01/13/18 Atorvastatin Calcium [Lipitor] 80 mg PO BEDTIME 01/13/18 Fluoxetine HCl [Prozac*] 40 mg PO BEDTIME 01/13/18 Losartan Potassium 50 mg PO DAILY 01/13/18 Multivit,Calc,Mins/Iron/Folic [One Daily Women's Health Tab] 1 tab PO DAILY Nitroglycerin 0.4 mg SL PRN PRN 01/13/18 Potassium Chloride 20 meq PO BID 01/13/18 Furosemide [Lasix*] 60 mg PO DAILY #30 tab 01/14/18 Metoprolol Tartrate [Lopressor*] 12.5 mg PO BID 6AM 6PM #60 tab 01/14/18 - Past Medical/Surgical History Has patient received pneumonia vaccine in the past: Yes Diabetic: Yes -: Glaucoma -: CHF, diastolic dysfunction -: HTN -: GERD -: DM Neuropathy -: History of Colon CA -: Diabetes mellitus type 2 -: Fatty liver with Morbid Obesity -: Cholecystectomy -: Colon resection -: Appendectomy -: Hysterectomy -: Right Rotator Cuff Repair -: Colectomy Psychosocial/ Personal History: She lives at home. Her daughter helps her at home. - Family History Mother -: Cancer Notes: colon Brother -: Hypertension Sister -: Heart disease, Hypertension, Lung disease, Cancer - Social History Smoking Status: Never smoker Alcohol use: No CD- Drugs: No Caffeine use: Yes Place of Residence: Home Review of Systems 10-point ROS is otherwise unremarkable Physical Examination - Vital Signs Temperature: 97.0 F Blood Pressure: 168/79 Pulse: 89 Respirations: 19 Pulse Ox (%): 96 - Physical Exam General: Alert, In no apparent distress HEENT: Atraumatic, PERRLA, Mucous membr. moist/pink, EOMI, Sclerae nonicteric Neck: Supple, 2+ carotid pulse no bruit, No LAD, Without JVD or thyroid abnormality Respiratory: Clear to auscultation bilaterally, Normal air movement Cardiovascular: Regular rate/rhythm, Normal S1 S2 Gastrointestinal: Normal bowel sounds, No tenderness Musculoskeletal: No tenderness Integumentary: No rashes Neurological: Normal gait, Normal speech, Normal strength at 5/5 x4 extr, Normal tone, Normal affect Lymphatics: No axilla or inguinal lymphadenopathy - Studies Laboratory Data (last 24 hrs) 02/19/19 19:30: PT 12.3, INR 1.04 02/19/19 19:30: WBC 10.1, Hgb 11.3 L, Hct 34.0 L, Plt Count 274 02/19/19 19:30: Sodium 139, Potassium 3.7, BUN 11, Creatinine 0.89, Glucose 146 H, Magnesium 1.8, Total Bilirubin 0.3, AST 20, ALT 25, Alkaline Phosphatase 139 H - Diagnosis (Problem(s)) (1) Chest pain Onset Date: 07/26/16 Current Visit: No Status: Acute Qualifiers: Chest pain type: chest pain on breathing Qualified Code(s): R07.1 - Chest pain on breathing; R07.81 - Pleurodynia (2) CHF (congestive heart failure) Onset Date: 06/13/17 Current Visit: No Status: Chronic Qualifiers: Heart failure type: diastolic Heart failure chronicity: chronic Qualified Code(s): I50.32 - Chronic diastolic (congestive) heart failure (3) COPD (chronic obstructive pulmonary disease) Onset Date: 06/16/17 Current Visit: No Status: Chronic Qualifiers: COPD type: unspecified COPD Qualified Code(s): J44.9 - Chronic obstructive pulmonary disease, unspecified (4) Depression Onset Date: 06/13/17 Current Visit: No Status: Chronic Qualifiers: Depression Type: unspecified (5) Diabetes mellitus Onset Date: 06/13/17 Current Visit: No Status: Chronic Qualifiers: Diabetes mellitus type: type 2 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: with highway maintenance technician use Diabetes mellitus complication status: with unspecified complications (6) GERD (gastroesophageal reflux disease) Onset Date: 06/13/17 Current Visit: No Status: Chronic Qualifiers: Esophagitis presence: without esophagitis Qualified Code(s): K21.9 - Gastro -esophageal reflux disease without esophagitis (7) HTN (hypertension) Onset Date: 02/18/17 Current Visit: No Status: Chronic Qualifiers: Hypertension type: essential hypertension Qualified Code(s): I10 - Essential (primary) hypertension (8) Hyperlipidemia Onset Date: 06/13/17 Current Visit: No Status: Chronic Qualifiers: Hyperlipidemia type: unspecified Qualified Code(s): E78.5 - Hyperlipidemia , unspecified Treatment Summary: Overall during the hospital stay patient remained stable Patient was initially admitted to the hospital for chest pain ACS rule out cardiology was consulted. Patient had echocardiogram and stress test done here in the hospital. Echocardiogram and stress test was negative for any acute abnormality. Patient at that time was discharged home under stable condition was asked to resume all her home medication as prescribed by primary care provider. Patient demonstrate understanding and thus was discharged home under stable condition - Disposition Disposition: ROUTINE DISCHARGE Condition: GOOD Diet: Regular Activity: Ad emma
[2019-02-20] MEDS: [UNRECOGNIZED DRUG - OTHER] SQ SCH (17:00)
[2019-02-20] MEDS: ASPART SQ SCH (17:00)
[2019-02-20] MEDS: INSULIN ASPART PROTAM SQ SCH (17:00)
[2019-02-20 18:47] VITALS: BMI 44.6
[2019-02-20] MEDS: INSULIN GLARGINE 100 UNITS/ML SQ SCH (21:00)
[2019-02-20] MEDS ORDERED: TIMOLOL LEFT EYE SCH (21:00)
[2019-02-20] MEDS ORDERED: BRIMONIDINE TARTRATE LEFT EYE SCH (21:00)
[2019-02-20] MEDS: ATORVASTATIN 80 MG TAB PO SCH (21:28)
[2019-02-20] MEDS: FLUOXETINE 10 MG CAP PO SCH (21:29)
[2019-02-21] MEDS ORDERED: ENOXAPARIN 40 MG/0.4 ML SQ ONE (07:26)
[2019-02-21] MEDS: PANTOPRAZOLE 40MG TABLET PO SCH (08:43)
[2019-02-21] MEDS: GABAPENTIN 300 MG CAP PO SCH ×3 (08:44→21:25)
[2019-02-21] MEDS: POTASSIUM CL SA 10 MEQ TAB PO SCH ×2 (08:44→21:25)
[2019-02-21] MEDS: LOSARTAN POTASSIUM 50 MG TABLET PO SCH (08:44)
[2019-02-21] MEDS: FUROSEMIDE 40 MG TABLET PO SCH (08:44)
[2019-02-21] MEDS: ASPIRIN EC 81 MG TAB PO SCH (08:44)
[2019-02-21] MEDS: METOPROLOL TAR 50 MG TAB PO SCH ×2 (08:45→21:24)
[2019-02-21] MEDS: MAGNESIUM OXIDE 400 MG TAB PO SCH (08:49)
--- NOTE | 2019-02-21 11:00 | PN ---
Mrs. Longoria is not having chest pain now. Our plan is to do a cardiac cath on February 22, 2019. Th e patient seems to understand the procedure, potential benefits, indications, risks, and agrees to pr oceed. DONTE/GEORGETTE Voice ID: [id number] Report ID: [id number]
[2019-02-21] MEDS: [UNRECOGNIZED DRUG - OTHER] SQ SCH (17:00)
[2019-02-21] MEDS: ASPART SQ SCH (17:00)
[2019-02-21] MEDS: INSULIN ASPART PROTAM SQ SCH (17:00)
--- NOTE | 2019-02-21 17:14 | P.PN ---
Subjective Date of Service: 02/21/19 Patient had a positive stress test. We for cardiac catheterization in the morning. Clinically doing better with no chest pain at this time. Continue with cardiac meds Review of Systems 10-point ROS is otherwise unremarkable Physical Examination - Vital Signs Temperature: 97.0 F Blood Pressure: 145/62 Pulse: 75 Respirations: 18 Pulse Ox (%): 92 - Physical Exam General: Alert, In no apparent distress, Oriented x3 Respiratory: Clear to auscultation bilaterally, Normal air movement Cardiovascular: Regular rate/rhythm, Normal S1 S2 Gastrointestinal: Normal bowel sounds, Soft and benign, Non-distended, No tenderness Musculoskeletal: No clubbing, No swelling, No tenderness Neurological: Normal speech, Normal tone, Sensation intact, Cranial nerves 3-12 intact, Normal affect - Studies Medications List Reviewed: Yes Assessment & Plan - Problems (Diagnosis) (1) Unstable angina Current Visit: Yes Status: Acute (2) Chest pain Onset Date: 07/26/16 Current Visit: No Status: Acute Qualifiers: Chest pain type: chest pain on breathing Qualified Code(s): R07.1 - Chest pain on breathing; R07.81 - Pleurodynia (3) CHF (congestive heart failure) Onset Date: 06/13/17 Current Visit: No Status: Chronic Qualifiers: Heart failure type: diastolic Heart failure chronicity: chronic Qualified Code(s): I50.32 - Chronic diastolic (congestive) heart failure (4) COPD (chronic obstructive pulmonary disease) Onset Date: 06/16/17 Current Visit: No Status: Chronic Qualifiers: COPD type: unspecified COPD Qualified Code(s): J44.9 - Chronic obstructive pulmonary disease, unspecified (5) Depression Onset Date: 06/13/17 Current Visit: No Status: Chronic Qualifiers: Depression Type: unspecified (6) Diabetes mellitus Onset Date: 06/13/17 Current Visit: No Status: Chronic Qualifiers: Diabetes mellitus type: type 2 Diabetes mellitus 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 terminal 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 insulin use: with fdc use Diabetes mellitus complication status: with unspecified complications (7) Diabetic neuropathy Onset Date: 06/13/17 Current Visit: No Status: Chronic Qualifiers: Diabetes mellitus type: type 2 Diabetes mellitus complication detail: diabetic polyneuropathy Qualified Code(s): E11.42 - Type 2 diabetes mellitus with diabetic polyneuropathy (8) GERD (gastroesophageal reflux disease) Onset Date: 06/13/17 Current Visit: No Status: Chronic Qualifiers: Esophagitis presence: without esophagitis Qualified Code(s): K21.9 - Gastro -esophageal reflux disease without esophagitis (9) Hyperlipidemia Onset Date: 06/13/17 Current Visit: No Status: Chronic Qualifiers: Hyperlipidemia type: unspecified Qualified Code(s): E78.5 - Hyperlipidemia , unspecified - Plan Plan: 1. Cardiac catheterization in the morning 2. Continue with cardiac meds including anti-platelet therapy, statin therapy, beta-josy therapy, anti coagulation 3. Strict blood pressure and blood sugar control 4. Pain control as needed 5. GI and DVT prophylax - Advance Directives Does patient have a Living Will: No Does patient have a Durable POA for Healthcare: No - Code Status/Comfort Care Code Status: Full Code
[2019-02-21] MEDS: ACETAMINOPHEN 500 MG TAB PO PRN (21:23)
[2019-02-21] MEDS: INSULIN GLARGINE 100 UNITS/ML SQ SCH (21:25)
[2019-02-21] MEDS: ATORVASTATIN 80 MG TAB PO SCH (21:25)
[2019-02-21] MEDS: FLUOXETINE 10 MG CAP PO SCH (21:30)
[2019-02-22] MEDS: LOSARTAN POTASSIUM 50 MG TABLET PO SCH (05:41)
[2019-02-22] MEDS: ACETAMINOPHEN 500 MG TAB PO PRN ×2 (05:41→22:14)
[2019-02-22] MEDS: ASPIRIN EC 81 MG TAB PO SCH (05:42)
[2019-02-22] MEDS: METOPROLOL TAR 50 MG TAB PO SCH ×2 (05:42→22:13)
[2019-02-22] MEDS ORDERED: HEPA 1000U/500MLS 2,000 UNIT/1,000 ML BAG IV ONE (06:03)
[2019-02-22] MEDS ORDERED: LIDOCAINE 1% 20 ML MDV ONE (06:03)
[2019-02-22] MEDS ORDERED: HEPARIN 5000 UNIT/ML 1 ML VIAL ONE (06:08)
[2019-02-22] MEDS ORDERED: NA CHLORIDE 0.9% 100 ML IV ONE (06:09)
[2019-02-22] MEDS ORDERED: FENTANYL CITR 100 MCG/2 ML ONE (06:09)
[2019-02-22] MEDS ORDERED: NICARDIPINE HCL 25 MG/10 ML IV ONE (06:09)
[2019-02-22] MEDS ORDERED: ATROPINE SULF 1 MG/10 ML SYR IV ONE (06:09)
[2019-02-22] MEDS ORDERED: MIDAZOLAM HCL 2 MG/2 ML INJ ONE ×2 (06:09→07:00)
[2019-02-22] MEDS ORDERED: NA CHLORIDE 0.9% 500 ML ONE (06:40)
[2019-02-22] MEDS: PANTOPRAZOLE 40MG TABLET PO SCH ×2 (07:30→22:13)
[2019-02-22] MEDS ORDERED: HYDRALAZINE HCL 20 MG/ML VIAL ONE (07:34)
[2019-02-22] MEDS ORDERED: PRASUGREL (EFFIENT) 10 MG TAB ONE (07:49)
[2019-02-22] MEDS ORDERED: FENTANYL CITR 100 MCG/2 ML IV ONE (08:42)
[2019-02-22] MEDS: FUROSEMIDE 40 MG TABLET PO SCH (09:00)
[2019-02-22] MEDS: MAGNESIUM OXIDE 400 MG TAB PO SCH (09:00)
[2019-02-22] MEDS: CLOPIDOGREL 75 MG TABLET PO SCH (09:00)
[2019-02-22] MEDS: POTASSIUM CL SA 10 MEQ TAB PO SCH ×2 (09:00→22:12)
[2019-02-22] MEDS: GABAPENTIN 300 MG CAP PO SCH ×3 (09:00→22:13)
[2019-02-22] MEDS ORDERED: NITROGLYCERIN 0.4 MG/TAB SL PRN (13:47)
[2019-02-22] MEDS ORDERED: [UNRECOGNIZED DRUG - OTHER] SQ SCH (17:00)
[2019-02-22] MEDS ORDERED: INSULIN ASPART PROTAMINE SQ SCH (17:00)
--- NOTE | 2019-02-22 19:28 | OP ---
Surgeon: Antonio Murphy MD Identification: 78-year-old woman. Procedure: Left heart catheterization, coronary left ventricular angiography, percutaneous coronary intervention of the right coronary artery, 99% long tubular stenosis in the mid RCA was treated with a 3.0 x 16 Synergy stent and post-stent stenosis was 0% ZAINA-3 flow. Procedure Findings: Patient had a 99% RCA stenosis, 70% OM stenosis. Her LAD was diffusely plaqued. There was a mid LAD stent, that had a 50% in-stent stenosis in its proximal portion, was not felt t o be flow limiting and 99% RCA stenosis was stented successfully. Her left ventricular ejection frac tion was normal. The left ventricular end-diastolic pressure was 19 mmHg, slightly elevated. Procedure In Detail: The patient was brought to the cardiac mason tender restoration labor in a fasting state. She had gi luke informed consent. She was sedated with Versed and fentanyl. Prepared and draped in usual steril e fashion. Right radial approach was used. Right radial artery was entered using a 21-gauge needle, cannulated with a 0.021 inch diameter guidewire. A 6-Armenian Terumo sheath was placed using the rosendo fied Seldinger technique, flushed, and a radial cocktail was given consisting of nicardipine, heparin , and nitroglycerin. We guided the TIG catheter into the ascending aorta using fluoroscopy and a tonja rt radius J-tip glidewire. We were able to angiogram right and left coronaries, left ventricle using the TIG. Decision was then made to do a stent on the right coronary. Angiomax was given a bolus an d a drip. Activated clotting time was demonstrated to be more than 400 seconds. The TIG catheter wa s taken out over an exchange with J-wire. The same J-wire was used to place a [facility] coronary guide ca theter with side holes into the ascending aorta. It engaged the right coronary artery and gave adequ ate support. The lesion was crossed with a [place] 0.014 inch diameter coronary guidewire. We then p re-dilated the lesion with a 2.5 x 20 Emerge balloon up to 12 atmospheres. The balloon was withdrawn and taken off the wire and a 3.0 x 16 Synergy monorail type stent was advanced across the lesion inf lated to 14 atmospheres after deflation removal of the balloon part of the stent device. The stent r emained well in position and an angiogram showed excellent results. No residual stenosis and ZAINA gr jas 3 flow. Orthogonal pictures were taken after removal of the guidewire and then the coronary guid e catheter was removed over a wire. The sheath was flushed, removed, and the arteriotomy closed with a TR band. DONTE/GEORGETTE Voice ID: [id number] Report ID: [id number]
[2019-02-22] MEDS ORDERED: FLUOXETINE 20 MG CAP PO SCH (21:00)
[2019-02-22] MEDS: INSULIN GLARGINE 100 UNITS/ML SQ SCH (21:00)
[2019-02-22] MEDS: ATORVASTATIN 80 MG TAB PO SCH (22:14)
[2019-02-23 05:17] LABS: Hematocrit 30.1 % (36.0-45.0); MPV 8.5 fL (7.6-11.3); RBC Red Blood Cell Count 3.51 M/uL (3.86-4.86)
[2019-02-23 05:30] LABS: BUN Blood Urea Nitrogen 14 mg/dL (7-18); Bicarbonate 28 mmol/L (21-32); Glucose Level 157 mg/dL (74-106); Potassium 4.2 mmol/L (3.5-5.1); Sodium Level 142 mmol/L (136-145)
--- NOTE | 2019-02-23 06:57 | P.PN ---
Subjective Date of Service: 02/22/19 patient evaluated after cardiac catheterization. She is doing well with no new complaints. Chest pain is resolved. Will advance diet and possible discharge tomorrow pending Cardiology recommendations Review of Systems 10-point ROS is otherwise unremarkable Physical Examination - Vital Signs Temperature: 98.1 F Blood Pressure: 162/74 Pulse: 60 Respirations: 18 Pulse Ox (%): 95 - Physical Exam General: Alert, In no apparent distress, Oriented x3 Respiratory: Clear to auscultation bilaterally, Normal air movement Cardiovascular: Regular rate/rhythm, Normal S1 S2, No murmurs Gastrointestinal: Normal bowel sounds, Soft and benign, Non-distended Musculoskeletal: No clubbing, No swelling Neurological: Cranial nerves 3-12 intact - Studies Microbiology Data (last 24 hrs): 02/20/19 09:56 Clean Catch Urine [place] Count - Final >100,000 CFU/ML. 02/20/19 09:56 Clean Catch Urine - Final MIXED SANDY. Medications List Reviewed: Yes Assessment & Plan - Problems (Diagnosis) (1) Unstable angina Current Visit: Yes Status: Acute (2) Chest pain Onset Date: 07/26/16 Current Visit: No Status: Acute Qualifiers: Chest pain type: chest pain on breathing Qualified Code(s): R07.1 - Chest pain on breathing; R07.81 - Pleurodynia (3) CHF (congestive heart failure) Onset Date: 06/13/17 Current Visit: No Status: Chronic Qualifiers: Heart failure type: diastolic Heart failure chronicity: chronic Qualified Code(s): I50.32 - Chronic diastolic (congestive) heart failure (4) COPD (chronic obstructive pulmonary disease) Onset Date: 06/16/17 Current Visit: No Status: Chronic Qualifiers: COPD type: unspecified COPD Qualified Code(s): J44.9 - Chronic obstructive pulmonary disease, unspecified (5) Depression Onset Date: 06/13/17 Current Visit: No Status: Chronic Qualifiers: Depression Type: unspecified (6) Diabetes mellitus Onset Date: 06/13/17 Current Visit: No Status: Chronic Qualifiers: Diabetes mellitus type: type 2 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 mellitus 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 terminal 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 insulin use: with joint terminal 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 use Diabetes mellitus complication status: with unspecified complications (7) Diabetic neuropathy Onset Date: 06/13/17 Current Visit: No Status: Chronic Qualifiers: Diabetes mellitus type: type 2 Diabetes mellitus complication detail: diabetic polyneuropathy Qualified Code(s): E11.42 - Type 2 diabetes mellitus with diabetic polyneuropathy (8) GERD (gastroesophageal reflux disease) Onset Date: 06/13/17 Current Visit: No Status: Chronic Qualifiers: Esophagitis presence: without esophagitis Qualified Code(s): K21.9 - Gastro -esophageal reflux disease without esophagitis (9) Hyperlipidemia Onset Date: 06/13/17 Current Visit: No Status: Chronic Qualifiers: Hyperlipidemia type: unspecified Qualified Code(s): E78.5 - Hyperlipidemia , unspecified - Plan Plan: 1. Cardiac catheterization reveals stenosis of the right coronary artery. This was stented. Evaluate overnight and possible discharge tomorrow pending Cardiology recommendations 2. Continue with cardiac meds including anti-platelet therapy, statin therapy, beta-josy therapy, anti coagulation 3. Strict blood pressure and blood sugar control 4. Pain control as needed 5. GI and DVT prophylax Discharge Plan: Home Plan to discharge in: 48 Hours - Advance Directives Does patient have a Living Will: No Does patient have a Durable POA for Healthcare: No - Code Status/Comfort Care Code Status: Full Code Critical Care: No Time Spent Managing PTS Care (In Minutes): 30
[2019-02-23] MEDS: PANTOPRAZOLE 40MG TABLET PO SCH (07:56)
[2019-02-23] MEDS: ASPIRIN EC 81 MG TAB PO SCH (08:00)
[2019-02-23] MEDS: MAGNESIUM OXIDE 400 MG TAB PO SCH (08:00)
[2019-02-23] MEDS: POTASSIUM CL SA 10 MEQ TAB PO SCH (08:00)
[2019-02-23] MEDS: CLOPIDOGREL 75 MG TABLET PO SCH (08:00)
[2019-02-23] MEDS: GABAPENTIN 300 MG CAP PO SCH (08:00)
[2019-02-23] MEDS: METOPROLOL TAR 50 MG TAB PO SCH (08:01)
[2019-02-23] MEDS: FUROSEMIDE 40 MG TABLET PO SCH (08:01)
[2019-02-23 08:04] VITALS: BP 149/69
[2019-02-23 08:24] VITALS: TEMP 97.7
[2019-02-23] MEDS ORDERED: VALSARTAN 160 MG TAB PO SCH (09:00)
--- NOTE | 2019-02-23 09:58 | P.DS ---
Admission Date: 02/21/19 Discharge Date: 02/23/19 Disposition: ROUTINE DISCHARGE Discharge Condition: GOOD Reason for Admission: CHEST PAIN RULE OUT ACUTE CORONARY SYNDROME Consultations: cardiology - Dr MURPHY Brief History of Present Illness: patient with hx of HTN , DM , CAD admitted for chest pain in setting of uncontrolled HTN Hospital Course: patient underwent cardiac cath after cardiology consult with debbie angioplasty and stent placement in th RCA . Post procedure , she remained chest pain free . Her BP was controlled with added meds . She will be discharge home to continue on asa and plavix combo for now . She will follow with Dr Murphy in 1 month Vital Signs/Physical Exam: Temp Pulse Resp BP Pulse Ox 97.7 F 64 17 149/69 H 93 02/23/19 08:00 02/23/19 08:01 02/23/19 08:00 02/23/19 08:01 02/23/19 08:00 General: Alert, In no apparent distress HEENT: Atraumatic, Normocephalic, Other (poor vision , legally blind) Neck: Supple, 2+ carotid pulse no bruit Respiratory: Clear to auscultation bilaterally, Normal air movement Cardiovascular: No edema, Normal pulses, Regular rate/rhythm, Normal S1 S2 Gastrointestinal: Normal bowel sounds, No tenderness Musculoskeletal: No clubbing, No contractures, Swelling (trace b/l ) Neurological: Normal gait, Normal speech Laboratory Data at Discharge: WBC 8.4 K/uL (4.3-10.9) 02/23/19 04:41 Hgb 9.9 g/dL (12.0-15.0) L 02/23/19 04:41 Hct 30.1 % (36.0-45.0) L 02/23/19 04:41 Plt Count 231 K/uL (152-406) 02/23/19 04:41 PT 12.3 SECONDS (9.5-12.5) 02/19/19 19:30 INR 1.04 02/19/19 19:30 Sodium 142 mmol/L (136-145) 02/23/19 04:41 Potassium 4.2 mmol/L (3.5-5.1) 02/23/19 04:41 BUN 14 mg/dL (7-18) 02/23/19 04:41 Creatinine 0.75 mg/dL (0.55-1.3) 02/23/19 04:41 Glucose 157 mg/dL (74-106) H 02/23/19 04:41 Magnesium 1.8 mg/dL (1.8-2.4) 02/19/19 19:30 Total Bilirubin 0.3 mg/dL (0.2-1.0) 02/19/19 19:30 AST 20 U/L (15-37) 02/19/19 19:30 ALT 25 U/L (12-78) 02/19/19 19:30 Alkaline Phosphatase 139 U/L (45-117) H 02/19/19 19:30 Troponin I < 0.02 ng/mL (0.0-0.045) 02/20/19 05:20 Triglycerides 148 mg/dL (<150) 02/20/19 05:20 Cholesterol 122 mg/dL (<200) 02/20/19 05:20 HDL Cholesterol 40 mg/dL (40-60) 02/20/19 05:20 Cholesterol/HDL Ratio 3.05 02/20/19 05:20 Home Medications: Gabapentin [Neurontin*] 600 mg PO TID 12/29/12 Insulin Detemir [Levemir] 66 units SQ BEDTIME 12/29/12 Magnesium Oxide [Magnesium] 400 mg PO DAILY 12/29/12 Metformin HCl [Glucophage*] 1,000 mg PO BID 12/29/12 Insulin Aspart Protam & Aspart [Novolog Mix 70-30 Flexpen Syrn] 50 unit SQ DAILY AT SUPPER 06/12/17 Bimatoprost [Lumigan] 0.01 drop LEFT EYE BID 06/14/17 Brimonidine Tartrate/Timolol [Combigan 0.2%-0.5% Eye Drops] 5 drop LEFT EYE BEDTIME 06/14/17 Pantoprazole [Protonix Tab*] 40 mg PO ACB #30 tab 06/14/17 Thiamine Mononitrate (Vit B1) [Vitamin B-1] 100 mg PO DAILY #30 tablet 06/17/17 Aspirin Chewable [Aspirin Chewable*] 81 mg PO DAILY 01/13/18 Atorvastatin Calcium [Lipitor] 80 mg PO BEDTIME 01/13/18 Fluoxetine HCl [Prozac*] 40 mg PO BEDTIME 01/13/18 Multivit,Calc,Mins/Iron/Folic [One Daily Women's Health Tab] 1 tab PO DAILY Nitroglycerin 0.4 mg SL PRN PRN 01/13/18 Potassium Chloride 20 meq PO BID 01/13/18 Furosemide [Lasix*] 60 mg PO DAILY #30 tab 01/14/18 ALPRAZolam [Xanax*] 0.25 mg PO TID PRN tab 02/23/19 Clopidogrel Bisulfate [Plavix*] 75 mg PO DAILY #30 tablet 02/23/19 Metoprolol Tartrate [Lopressor*] 50 mg PO BID #60 tab 02/23/19 Valsartan [Diovan*] 160 mg PO DAILY #30 tab 02/23/19 New Medications: Clopidogrel Bisulfate [Plavix*] 75 mg PO DAILY #30 tablet Metoprolol Tartrate [Lopressor*] 50 mg PO BID #60 tab Valsartan [Diovan*] 160 mg PO DAILY #30 tab Diet: ADA Activity: Ad emma Followup: Babar Wang MD [Primary Care Provider] - 1 Week Time spent managing pt's care (in minutes): 35
[2019-02-23 11:55] VITALS: O2SAT 93
== END 2019-02-23 12:12 | disposition home or self-care (01) | DRG 247 ==
LOC: ER 18:24 → ERHOLD 21:47 → 4TH 02-20 07:20 → OBSVTOIN 02-21 15:17
PROVIDERS: ADMIT Hospitalist; ATTEND Hospitalist
PROC: 4A023N7 Measurement of Cardiac Sampling and Pressure, Left Heart, Percutaneous Approach (ICD-10-PCS; principal; 2019-02-22)
PROC: 027034Z Dilation of Coronary Artery, One Artery with Drug-eluting Intraluminal Device, Percutaneous Approach (ICD-10-PCS; 2019-02-22)
PROC: B211YZZ Fluoroscopy of Multiple Coronary Arteries using Other Contrast (ICD-10-PCS; 2019-02-22)
DX: I24.9 Acute ischemic heart disease, unspecified (principal); I50.32 Chronic diastolic (congestive) heart failure; I25.10 Atherosclerotic heart disease of native coronary artery without angina pectoris; I11.0 Hypertensive heart disease with heart failure; J44.9 Chronic obstructive pulmonary disease, unspecified; E11.40 Type 2 diabetes mellitus with diabetic neuropathy, unspecified; K21.9 Gastro-esophageal reflux disease without esophagitis; E78.5 Hyperlipidemia, unspecified; F32.9 Major depressive disorder, single episode, unspecified; Z79.4 Long term (current) use of insulin
CPT/HCPCS: 36415; 71045; 78452; 80048; 80061; 80076; 81003; 81015; 82947; 83735; 83880; 84484; 85025; 85027; 85610; 87086; 87088; 93005; 93017; 93306; 93458; 99285; A9500; C1725; C1893; C9600; G0378; J0360; J0583; J1644; J1650; J1815; J2250; J2785; J3010; J7040

== ENCOUNTER 2019-05-19 15:48 | Inpatient (IN) | payer OTHER ==
--- OUTSIDE RECORDS SUMMARY | 2019-05-19 15:51 | XMS REPORT ---
:1940 Author Organization [facility] Address [address] [place] [address] [address]. [address] [place] [address] Care Team Providers Name Role Phone Unavailable Unavailable Unavailable Payers Payer Name Policy Type Policy Number Effective Date Expiration Date Problems This patient has no known problems. Allergies, Adverse Reactions, Alerts Allergy Allergy Status Severity Reaction(s) Onset Inactive Treating Comments Name Type Date Date Clinician Skip MAC Active MO 2018-09 (Sulfonami -25 de 00:00:0 Antibiotic 0 s) Medications This patient has no known medications. Results Test Description Test Time Test Comments Text Results Atomic Results Result Comments SURG 2018-10-19 RUN DATE: 16:34:00 10/19/18 [facility] - LAB *LIVE* PAGE 1 RUN TIME: 1634 Specimen Inquiry RUN USER: INTERFACE PATIENT: MEGHNA BIRD LOC: MAGGIE U #: [id number] AGE/SX: 77/F ROOM: FLAKITA RE10/12/18REG DR: Alfredo Cantu MD : 41 BED: 1 DIS: 10/13/18 STATUS: DIS Marcela TLOC: SPEC #: [id number] RECD: 10/16/18 STATUS: SOUT REQ # : [id number] JNENA: 10/13/[address]: Alfredo Cantu MD ENTERED: 10/16/18 SP TYPE: SURG OTHR DR: Thao Crooks MD, Nizam Mohammad MD [place], Frank E MDORDERED: AB/PAS MAUREEN, SURG PATH LVL 4, PATH STAIN GROU COPIES TO: Thao Crooks MD [address] [place] [address] [place] [phone] [address] Baldemar Simeon MD [address] [place] [address] [phone] Babar Wang MD [address] [address] HISTOLOGY: TISSUE ID BLK PCS ALFREDO LEV PROCEDURE DISPOSITION ____ ____ __ ___ ___ ___ STOMACH, NOS A 1 1 AB/PAS MAUREEN STOMACH, NOS A 1 2 PATH STAIN GROU PROCEDURES: ALBLUE (10/16/18-1303) PAS (10/16/18) SURG PATH LVL 4 (10/16/18) PATH STAIN GROU (10/16/18 ) TISSUES: A. STOMACH, NOS - GASTRIC POLYP ADENO MASS CONTINUED ON NEXT PAGE RUN DATE: 10/19/18 [facility] - LAB *LIVE* PAGE 2 RUN TIME: 1634 Specimen Inquiry RUN USER: INTERFACE SPEC #: [id number] PATIENT: MARGEMEGHNA Wylie #[id number] (Continued) CLINICAL HISTORY HX CA LG INTESTINE -Z85.038; DYSPEPSIA -K30; PAIN -R10.9 CPT CODES CPT CODE(S): 45037 , 42828 , 34158 , , , , FINAL DIAGNOSIS Stomach, polypectomy: CHRONIC GASTRITIS WITH INTESTINAL METAPLASIA NEGATIVE FOR DYSPLASIA OR MALIGNANCY NEGATIVE FOR HELICOBACTER PYLORI ORGANISMS GROSS DESCRIPTION Gastric polyp. Received in formalin are two mendiola tissue fragments, 0.2 cm each, all as A. ba/nr Grossing performed at [facility] Pathology, [address], [address], [place], [place] [address]. Processing Tech: Carlos Sargent M.D. MICROSCOPIC DESCRIPTION Gastric polyp. Sections demonstrate gastric mucosa with chronic inflammation. No dysplasia or malignancy is seen. Alcian blue-PAS confirms the presence of focal intestinal metaplasia. No dysplasia or malignancy is identified. The Diff Quik stain demonstrates no evidence of Helicobacter pylori organisms. Signed SIGNATURE ON FILE Nain Lott 1634 END OF REPORT GLUCOSE BEDSIDE TESTING 2018-10-13 16:38:00 Test Item Value Reference Range Comments GLUCOSE BEDSIDE TESTING (test code=GLUBED) 174 mg/dL 70-110 GLUCOSE BEDSIDE [id number] 15:01:00 Test Item Value Reference Range Comments GLUCOSE BEDSIDE TESTING (test code=GLUBED) 193 mg/dL 70-110 GLUCOSE BEDSIDE [id number] 12:01:00 Test Item Value Reference Range Comments GLUCOSE BEDSIDE TESTING (test code=GLUBED) 178 mg/dL 70-110 GLUCOSE BEDSIDE [id number] 07:56:00 Test Item Value Reference Range Comments GLUCOSE BEDSIDE TESTING (test code=GLUBED) 191 mg/dL 70-110 BASIC METABOLIC [id number] 03:36:00 Test Item Value Reference Range Comments SODIUM (test code=NA) 140 mmol/L 134-147 POTASSIUM (test code=K) 3.4 mmol/L 3.4-5.0 CHLORIDE (test code=CL) 106 mmol/L 100-108 CARBON DIOXIDE (test code=CO2) 27 mmol/L 21-32 ANION GAP (test code=GAP) 7.0 GAP calc 4.0-15.0 GLUCOSE (test code=GLU) 187 MG/DL 70-110 BLOOD UREA NITROGEN (test code=BUN) 7 MG/DL 7-18 GLOMERULAR FILTRATION RATE (test >=60 max estimate estGFR >60 code=GFR) CREATININE (test code=CREAT) 0.6 MG/DL 0.6-1.0 CALCIUM (test code=CA) 8.5 MG/DL 8.5-10.1 CBC W/AUTO [id number] 03:27:00 Test Item Value Reference Range Comments WHITE BLOOD CELL (test code=WBC) 8.4 K/mm3 3.5-11.0 RED BLOOD CELL (test code=RBC) 3.56 M/mm3 4.70-6.10 HEMOGLOBIN (test code=HGB) 10.1 G/DL 10.4-14.9 HEMATOCRIT (test code=HCT) 31.2 % 31.5-44.1 MEAN CELL VOLUME (test code=MCV) 87.6 Fl 84.5-98.6 MEAN CELL HGB (test code=MCH) 28.4 pg 27.0-34.2 MEAN CELL HGB CONCETRATION (test code=MCHC) 32.4 G/DL 31.5-34.0 RED CELL DISTRIBUTION WIDTH (test code=RDW) 16.3 SD 11.5-14.5 PLATELET COUNT (test code=PLT) 275.0 K/mm3 150-450 MEAN PLATELET VOLUME (test code=MPV) 10.00 fL 7.0-10.5 NEUTROPHIL % (test code=NT%) 60.5 % 40-76 LYMPHOCYTE % (test code=LY%) 21.6 % 20.5-51.1 MONOCYTE % (test code=MO%) 15.8 % 1.7-9.3 EOSINOPHIL % (test code=EO%) 1.7 % 0.0-6.0 BASOPHIL % (test code=BA%) 0.4 % 0.0-2.0 NEUTROPHIL # (test code=NT#) 5.06 K/mm3 1.8-7.6 LYMPHOCYTE # (test code=LY#) 1.8 K/mm3 0.6-3.2 MONOCYTE # (test code=MO#) 1.3 K/mm3 0.3-1.1 EOSINOPHIL # (test code=EO#) 0.1 K/mm3 0.0-0.4 BASOPHIL # (test code=BA#) 0.0 K/mm3 0.0-0.1 MANUAL DIFF REQUIRED (test code=MDIFF) NO DIFF/SCN CRITERIA GLUCOSE BEDSIDE [id number] 21:07:00 Test Item Value Reference Range Comments GLUCOSE BEDSIDE TESTING (test code=GLUBED) 186 mg/dL 70-110 GLYCOSYLATED HEMOGLOBIN [id number] 17:49:00 Test Item Value Reference Range Comments GLYCOSYLATED HEMOGLOBIN (HA1C) (test 8.2 % A1C 4.2-6.3 code=GLYHGB) ESTIMATED AVERAGE GLUCOSE (test code=EAG) 189 MG/DLest COMPREHENSIVE METABOLIC [id number] 17:45:00 Test Item Value Reference Range Comments SODIUM (test code=NA) 139 mmol/L 134-147 POTASSIUM (test code=K) 3.3 mmol/L 3.4-5.0 CHLORIDE (test code=CL) 104 mmol/L 100-108 CARBON DIOXIDE (test code=CO2) 28 mmol/L 21-32 ANION GAP (test code=GAP) 7.0 GAP calc 4.0-15.0 GLUCOSE (test code=GLU) 146 MG/DL 70-110 BLOOD UREA NITROGEN (test code=BUN) 10 MG/DL 7-18 GLOMERULAR FILTRATION RATE (test >=60 max estimate estGFR >60 code=GFR) CREATININE (test code=CREAT) 0.8 MG/DL 0.6-1.0 TOTAL PROTEIN (test code=PROT) 7.3 G/DL 6.4-8.2 ALBUMIN (test code=ALB) 3.1 G/DL 3.4-5.0 GLOBULIN (test code=GLOB) 4.2 GM/dL ALBUMIN/GLOBULIN RATIO (test 0.7 RATIO 1.2-2.2 code=A/G) CALCIUM (test code=CA) 8.5 MG/DL 8.5-10.1 BILIRUBIN TOTAL (test code=BILT) 0.60 MG/DL 0.2-1.2 SGOT/AST (test code=AST) 20 Unit/L 15-37 SGPT/ALT (test code=ALT) 18 Unit/L 12-78 ALKALINE PHOSPHATASE TOTAL (test 137 Unit/L 45-117 code=ALKP) LIPID PROFILE (CORONARY RISK)2018-10-12 17:45:00 Test Item Value Reference Range Comments TRIGLYCERIDES (test code=TRIG) 153 MG/DL 0-150 CHOLESTEROL (test code=CHOL) 104 MG/DL 133-200 CHOLESTEROL/HDL RATIO (test code=CHOLHDL) 3.06 RATIO >0 HDL CHOLESTEROL (test code=HDL) 34 MG/DL 40-59 NON-HDL CHOLESTEROL (test code=NHDL) 70 mg/dL <130 LIPOPROTEIN LDL (test code=LDL) 55 MG/DL 0-129 LDL/HDL (test code=LDL/HDL) 1.61 Ratio 1.48-3.22 Avg [id number] 17:45:00 Test Item Value Reference Range Comments PHOSPHOROUS (test code=PHOS) 2.7 MG/DL 2.5-4.9 RULE OUT KS [id number] 17:45:00 Test Item Value Reference Range Comments CREATINE KINASE (CK) 175 Unit/L 26-192 (test code=CK) TROPONIN-I (test < 0.015 NG/ML 0.000-0.045 Negative: </=0.045 Positive: code=TROPI) >/=0.046 Correlation with serial results, other cardiac markers, and clinical findings is necessary to determine the clinical significance of this result. Quantitative results using different methodologies should not be compared to one another as numerical results may varyby method. [id number] 17:45:00 Test Item Value Reference Range Comments MAGNESIUM (test code=MAG) 2.0 MG/DL 1.8-2.4 THROMBOPLASTIN TIME [id number] 17:37:00 Test Item Value Reference Range Comments THROMBOPLASTIN TIME PARTIAL (test code=PTT) 30.9 SECONDS 26-35 PROTHROMBIN [id number] 17:36:00 Test Item Value Reference Range Comments PT PATIENT (test code=PTP) 13.3 SECONDS 9.3-12.9 INTERNATIONAL NORMAL RATIO (test code=INR) 1.15 INR Unit 0.8-1.2 CBC W/AUTO [id number] 17:34:00 Test Item Value Reference Range Comments WHITE BLOOD CELL (test code=WBC) 9.0 K/mm3 3.5-11.0 RED BLOOD CELL (test code=RBC) 3.98 M/mm3 4.70-6.10 HEMOGLOBIN (test code=HGB) 11.2 G/DL 10.4-14.9 HEMATOCRIT (test code=HCT) 34.6 % 31.5-44.1 MEAN CELL VOLUME (test code=MCV) 86.9 Fl 84.5-98.6 MEAN CELL HGB (test code=MCH) 28.1 pg 27.0-34.2 MEAN CELL HGB CONCETRATION (test code=MCHC) 32.4 G/DL 31.5-34.0 RED CELL DISTRIBUTION WIDTH (test code=RDW) 16.4 SD 11.5-14.5 PLATELET COUNT (test code=PLT) 293.0 K/mm3 150-450 MEAN PLATELET VOLUME (test code=MPV) 10.10 fL 7.0-10.5 NEUTROPHIL % (test code=NT%) 64.1 % 40-76 LYMPHOCYTE % (test code=LY%) 21.7 % 20.5-51.1 MONOCYTE % (test code=MO%) 12.9 % 1.7-9.3 EOSINOPHIL % (test code=EO%) 1.1 % 0.0-6.0 BASOPHIL % (test code=BA%) 0.2 % 0.0-2.0 NEUTROPHIL # (test code=NT#) 5.78 K/mm3 1.8-7.6 LYMPHOCYTE # (test code=LY#) 2.0 K/mm3 0.6-3.2 MONOCYTE # (test code=MO#) 1.2 K/mm3 0.3-1.1 EOSINOPHIL # (test code=EO#) 0.1 K/mm3 0.0-0.4 BASOPHIL # (test code=BA#) 0.0 K/mm3 0.0-0.1 MANUAL DIFF REQUIRED (test code=MDIFF) NO DIFF/SCN CRITERIA - XR CHEST 1 [id number] 17:02:00 Name: MEGHNA BIRD [place] : 1940 Age/S: 77 / F [address] Unit #: [id number] Loc: [place] [address] Phys: Alfredo Cantu MD Acct: [id number] Dis Date: Status: ADM IN PHONE #: [phone] Exam Date: 10/12/2018 1640 FAX #: Reason: CAD EXAMS: CPT: [id number] XR CHEST 1 V 45246 Fluoro Time: DAP (Gy m2): Air Kerma (mGy): EXAMINATION: - XR CHEST 1 V. LOCATION: S 17. HISTORY: CAD. COMPARISON: None. TECHNIQUE: Single AP view of the chest was obtained. FINDINGS: The heart is normal in size.There is mild blunting of the right costophrenic angle. The left lung is clear. No acute osseous abnormality is identified. IMPRESSION: Small right pleural effusion and/or atelectasis. at 1702 * * Reported and signed by: Jorge Rosenberg M.D. CC: Alana Cantu MD; Baldemar Simeon MD; Babar Wang MD PAGE 1 Signed Report Name: MEGHNA BIRD [place] : [birth year] Age/S:77 / F [address] Unit #: [id number] Loc: [place] [address] Phys: Alfredo Cantu MD Acct: [id number] Dis Date : Status: ADM IN PHONE #: [phone] Exam Date: 10/12/2018 1640 FAX #: Reason: CAD EXAMS: CPT: [id number] XR CHEST 1 V 96466 Fluoro Time: DAP (Gy m2): Air Kerma (mGy): <Continued> Technologist: Harsha Carr RT(R) (CT)(MRI) Trnscb Date/Time: 10/12/2018 (1702) [id number] Orig Print D/T: S: 10/12/2018 (9036) PAGE 2 Signed ReportGLUCOSE BEDSIDE [id number] 15:59:00 Test Item Value Reference Range Comments GLUCOSE BEDSIDE TESTING (test code=GLUBED) 114 mg/dL 70-110
[2019-05-19] MEDS ORDERED: METHYLPREDNISOLONE 125 MG INJ ONE (16:28)
[2019-05-19] MEDS ORDERED: IPRATROPIUM BROM 0.5MG/2.5ML ONE (16:28)
[2019-05-19] MEDS ORDERED: FAMOTIDINE 20 MG/2 ML VIAL IV ONE (16:29)
[2019-05-19] MEDS ORDERED: ALBUTEROL 2.5 MG/3 ML NEB SOL ONE (16:29)
--- NOTE | 2019-05-19 16:34 | RAD REPORT ---
EXAM DESCRIPTION: RAD - Chest Single View - 05/19/2019 4:28 pm CLINICAL HISTORY: Cough;COPD Chest pain. COMPARISON: Chest Single View dated 02/19/2019; Chest Single View dated 01/12/2018; Chest Single View dated 06/15/2017; Chest Single View dated 06/12/2017 FINDINGS: Portable technique limits examination quality. Mild pulmonary edema is seen. The heart is moderately enlarged. No displaced fractures. IMPRESSION: Mild CHF.
[2019-05-19 16:47] LABS: Arterial Blood Carboxyhemoglob 1.6 % (0-1.5); Blood O2 Saturation 92.2 % (92-98.5)
--- NOTE | 2019-05-19 16:58 | EDPHYS ---
Physician Documentation [facility] Name: Gloria Longoria Age: 78 yrs Sex: Female : 1940 Arrival Date: 05/19/2019 Time: 15:52 Bed 4 Private MD: ED Physician Harris Black HPI: 16:04 This 78 yrs old Black Female presents to ER via Unassigned with complaints of Low O2. gino 16:04 The patient has shortness of breath at rest, with light activity. Onset: The gino symptoms/episode began/occurred 2 day(s) ago. Duration: The symptoms are continuous, and are steadily getting worse. The patient's shortness of breath is aggravated by nothing, is alleviated by nothing. Associated signs and symptoms: The patient has no apparent associated signs or symptoms. Severity of symptoms: At their worst the symptoms were. Historical: - Allergies: 16:20 Sulfa (Sulfonamide Antibiotics); iw - PMHx: 16:20 CHF; colon cancer; Diabetes - IDDM; Hypertension; Pneumonia; ADD/ADHD; iw - Immunization history:: Adult Immunizations up to date. - Social history:: Smoking status: Patient denies any tobacco usage or history of. - Family history:: not pertinent. ROS: 16:04 Constitutional: Negative for fever, chills, and weight loss, Eyes: Negative for injury, gino pain, redness, and discharge, ENT: Negative for injury, pain, and discharge, Neck: Negative for injury, pain, and swelling, Cardiovascular: Negative for chest pain, palpitations, and edema, Abdomen/GI: Negative for abdominal pain, nausea, vomiting, diarrhea, and constipation, Back: Negative for injury and pain, : Negative for injury, bleeding, discharge, and swelling, MS/Extremity: Negative for injury and deformity, Skin: Negative for injury, rash, and discoloration, Neuro: Negative for headache, weakness, numbness, tingling, and seizure, Psych: Negative for depression, anxiety, suicide ideation, homicidal ideation, and hallucinations, Allergy/Immunology: Negative for hives, rash, and allergies, Endocrine: Negative for neck swelling, polydipsia, polyuria, polyphagia, and marked weight changes, Hematologic/Lymphatic: Negative for swollen nodes, abnormal bleeding, and unusual bruising. 16:04 Respiratory: Positive for cough, shortness of breath. Exam: 16:04 Constitutional: This is a well developed, well nourished patient who is awake, alert, gino and in no acute distress. Head/Face: Normocephalic, atraumatic. Eyes: Pupils equal round and reactive to light, extra-ocular motions intact. Lids and lashes normal. Conjunctiva and sclera are non-icteric and not injected. Cornea within normal limits. Periorbital areas with no swelling, redness, or edema. ENT: Nares patent. No nasal discharge, no septal abnormalities noted. Tympanic membranes are normal and external auditory canals are clear. Oropharynx with no redness, swelling, or masses, exudates, or evidence of obstruction, uvula midline. Mucous membranes moist. Neck: Trachea midline, no thyromegaly or masses palpated, and no cervical lymphadenopathy. Supple, full range of motion without nuchal rigidity, or vertebral point tenderness. No Meningismus. Chest/axilla: Normal chest wall appearance and motion. Nontender with no deformity. No lesions are appreciated. Cardiovascular: Regular rate and rhythm with a normal S1 and S2. No gallops, murmurs, or rubs. Normal PMI, no JVD. No pulse deficits. Abdomen/GI: Soft, non-tender, with normal bowel sounds. No distension or tympany. No guarding or rebound. No evidence of tenderness throughout. Back: No spinal tenderness. No costovertebral tenderness. Full range of motion. Female : Normal external genitalia. Skin: Warm, dry with normal turgor. Normal color with no rashes, no lesions, and no evidence of cellulitis. MS/ Extremity: Pulses equal, no cyanosis. Neurovascular intact. Full, normal range of motion. Neuro: Awake and alert, GCS 15, oriented to person, place, time, and situation. Cranial nerves II-XII grossly intact. Motor strength 5/5 in all extremities. Sensory grossly intact. Cerebellar exam normal. Normal gait. Psych: Awake, alert, with orientation to person, place and time. Behavior, mood, and affect are within normal limits. 16:04 Respiratory: the patient does not display signs of respiratory distress, Respirations: normal, Breath sounds: decreased breath sounds, rhonchi. Vital Signs: 16:20 BP 159 / 62; Pulse 76; Resp 20 S; Temp 98.7(O); Pulse Ox 94% on R/A; Pain 5/10; aa5 17:30 BP 166 / 66; Pulse 77; Resp 18 S; Pulse Ox 99% on 2 lpm NC; aa5 18:00 BP 160 / 68; Pulse 78; Resp 18 S; Temp 98.8(O); Pulse Ox 100% on 2 lpm NC; aa5 MDM: 15:[address] [facility] 16:55 Data reviewed: vital signs, nurses notes, lab test result(s), EKG, radiologic studies, gino plain films. 16:04 Order name: Basic Metabolic Panel; Complete Time: 17:[address] [facility] 16:04 Order name: CBC with Diff; Complete Time: 17:[address] [facility] 16:04 Order name: LFT's; Complete Time: 17:[address] [facility] 16:04 Order name: Magnesium; Complete Time: 17:[address] [facility] 16:04 Order name: NT PRO-BNP; Complete Time: 17:[address] [facility] 16:04 Order name: PT-INR; Complete Time: 17:[address] [facility] 16:04 Order name: Troponin (emerg Dept Use Only); Complete Time: 17:[address] [facility] 16:04 Order name: Lipase; Complete Time: 17:[address] [facility] 16:04 Order name: Blood Culture Adult (2) [facility] 16:04 Order name: Urine Culture [facility] 16:04 Order name: ABG; Complete Time: 17:[address] [facility] 17:25 Order name: Urine Dipstick--Ancillary (enter results) [facility] 17:49 Order name: Influenza Screen (A [facility] 17:57 Order name: Urinalysis [facility] 16:04 Order name: XRAY Chest (1 view); Complete Time: 17:[address] [facility] 17:57 Order name: CBC with Automated Diff [facility] 17:58 Order name: CBC with Automated Diff [facility] 17:58 Order name: CKMB Creatine Kinase MB [facility] 17:58 Order name: CKMB Creatine Kinase MB [facility] 17:58 Order name: CKMB Creatine Kinase MB [facility] 17:58 Order name: CKMB Creatine Kinase MB [facility] 17:58 Order name: Comprehensive Metabolic Panel [facility] 17:58 Order name: Comprehensive Metabolic Panel [facility] 17:58 Order name: Troponin I [facility] 17:58 Order name: Troponin I [facility] 17:58 Order name: Troponin I [facility] 17:58 Order name: Troponin I [facility] 18:17 Order name: Type And Screen [facility] 16:04 Order name: EKG; Complete Time: 16:[address] [facility] 16:04 Order name: Cardiac monitoring; Complete Time: 16:[address] [facility] 16:04 Order name: EKG - Nurse/Tech; Complete Time: 18:[address] [facility] 16:04 Order name: IV Saline Lock; Complete Time: 18:[address] [facility] 16:04 Order name: Labs collected and sent; Complete Time: 18:[address] [facility] 16:04 Order name: O2 Per Protocol; Complete Time: 16:[address] [facility] 16:04 Order name: O2 Sat Monitoring; Complete Time: 16:[address] [facility] 16:04 Order name: Urine Dipstick-Ancillary (obtain specimen); Complete Time: 17:[address] [facility] 17:41 Order name: Straight Cath - Urine: VO received at 1700; Complete Time: 17:41 [facility] 17:57 Order name: Consistent Carb (ADA) [address] [facility] Administered Medications: 16:52 Drug: Albuterol - atroVENT (3:1) (2.5 mg - 0.5 mg) 3 ml Route: Nebulizer; aa5 17:05 Follow up: Response: No adverse reaction aa5 17:00 Drug: Pepcid 20 mg Route: IVP; Site: right upper arm; aa5 17:10 Follow up: Response: No adverse reaction aa5 17:01 Drug: SOLU-Medrol 125 mg Route: IVP; Site: right upper arm; aa5 17:10 Follow up: Response: No adverse reaction aa5 18:32 Drug: Lasix 40 mg Route: IVP; Site: right upper arm; aa5 18:45 Follow up: Response: No adverse reaction aa5 Point of Care Testing: Guaiac: 18:30 Stool Guaiac: Negative; Stool Hemoccult Control: Pass; aa5 18:[address] Black aa5 Disposition: 05/19/19 16:57 Hospitalization ordered by Everardo Cantu for Inpatient Admission. Preliminary diagnosis are Hypoxemia, Unspecified combined systolic (congestive) and diastolic (congestive) heart failure, Chronic obstructive pulmonary disease, unspecified, Obesity, unspecified, Type 1 diabetes mellitus, Anemia, unspecified, Elevated white blood cell count. - Bed requested for Telemetry/MedSurg (Inpatient). - Status is Inpatient Admission. aa5 - Condition is Fair. - Problem is new. - Symptoms have improved. Signatures: Dispatcher [employer] EDLA Harris Black MD MD cha Williams, Irene, RN RN Jessica Roche RN RN aa5 Aguilar, Jose, RN RN ja1 Corrections: (The following items were deleted from the chart) 18:10 16:57 Hospitalization Ordered by Everardo Cantu MD for Inpatient Admission. Preliminary ja1 diagnosis is Hypoxemia; Unspecified combined systolic (congestive) and diastolic (congestive) heart failure; Chronic obstructive pulmonary disease, unspecified; Obesity, unspecified. Bed requested for Telemetry/MedSurg (Inpatient). Status is Inpatient Admission. Condition is Fair. Problem is new. Symptoms have improved. gino 18:18 18:10 05/19/2019 16:57 Hospitalization Ordered by Everardo Cantu MD for Inpatient gino Admission. Preliminary diagnosis is Hypoxemia; Unspecified combined systolic (congestive) and diastolic (congestive) heart failure; Chronic obstructive pulmonary disease, unspecified; Obesity, unspecified. Bed requested for Telemetry/MedSurg (Inpatient). Status is Inpatient Admission. Condition is Fair. Problem is new. Symptoms have improved. ja1 18:46 18:18 05/19/2019 16:57 Hospitalization Ordered by Everardo Cantu MD for Inpatient aa5 Admission. Preliminary diagnosis is Hypoxemia; Unspecified combined systolic (congestive) and diastolic (congestive) heart failure; Chronic obstructive pulmonary disease, unspecified; Obesity, unspecified; Type 1 diabetes mellitus; Anemia, unspecified; Elevated white blood cell count. Bed requested for Telemetry/MedSurg (Inpatient). Status is Inpatient Admission. Condition is Fair. Problem is new. Symptoms have improved. gino
--- NOTE | 2019-05-19 16:58 | ER ---
Nurse's Notes [facility] Name: Gloria Longoria Age: 78 yrs Sex: Female : 1940 Arrival Date: 05/19/2019 Time: 15:52 Bed 4 Private MD: Diagnosis: Hypoxemia;Unspecified combined systolic (congestive) and diastolic (congestive) heart failure;Chronic obstructive pulmonary disease, unspecified;Obesity, unspecified;Type 1 diabetes mellitus;Anemia, unspecified;Elevated white blood cell count Presentation: 16:18 Chief complaint: Patient states: has been light headed and having light chest pains all iw day, had a fall yesterday , uses home O2 as needed, noticed her O2 was fluctuating today. Coronavirus screen: The patient has NOT traveled to [place] in the past 14 days. Proceed with normal triage procedures. Ebola Screen: Patient negative for fever greater than or equal to 101.5 degrees Fahrenheit, and additional compatible Ebola Virus Disease symptoms Patient denies exposure to infectious person. Patient denies travel to an Ebola-affected area in the 21 days before illness onset. No symptoms or risks identified at this time. Initial Sepsis Screen: Does the patient meet any 2 criteria? No. Patient's initial sepsis screen is negative. Does the patient have a suspected source of infection? No. Patient's initial sepsis screen is negative. Risk Assessment: Do you want to hurt yourself or someone else? Patient reports no desire to harm self or others. 16:18 Method Of Arrival: Wheelchair iw 16:18 Acuity: MALAIKA 2 iw Historical: - Allergies: 16:20 Sulfa (Sulfonamide Antibiotics); iw - PMHx: 16:20 CHF; colon cancer; Diabetes - IDDM; Hypertension; Pneumonia; ADD/ADHD; iw - Immunization history:: Adult Immunizations up to date. - Social history:: Smoking status: Patient denies any tobacco usage or history of. - Family history:: not pertinent. Screenin:00 Abuse screen: Denies threats or abuse. Nutritional screening: No deficits noted. aa5 Tuberculosis screening: No symptoms or risk factors identified. Fall Risk Fall in past 12 months (25 points). Secondary diagnosis (15 points) Blind . IV access (20 points). Total Tinsley Fall Scale indicates High Risk Score (45 or more points). Fall prevention measures have been instituted. Side Rails Up X 2 Placed Close to Nursing Station Family Present and informed to notify staff if the need to leave the bedside. Assessment: 16:20 General: Appears comfortable, Behavior is calm, cooperative. Pain: Complains of pain in aa5 mid-sternal area Pain does not radiate. Pain currently is 5 out of 10 on a pain scale. Quality of pain is described as aching, Pain began today Is intermittent, lasting a few seconds. Neuro: Level of Consciousness is awake, alert, obeys commands, Oriented to person, place, time, situation. Cardiovascular: Heart tones S1 S2 present Rhythm is regular. Respiratory: Reports shortness of breath Airway is patent Respiratory effort is even, unlabored, Respiratory pattern is regular, symmetrical, Breath sounds are diminished bilaterally. GI: Abdomen is round non-distended, Bowel sounds present X 4 quads. Abd is soft and non tender X 4 quads. Patient currently denies nausea, vomiting. : No signs and/or symptoms were reported regarding the genitourinary system. EENT: Pt is blind . Derm: Skin is dry, Skin is pale, Skin temperature is warm. Musculoskeletal: Range of motion: intact in all extremities. 16:40 Reassessment: RT having difficulty obtaining ABG's . aa5 16:49 Reassessment: ABG obtained by RT . aa5 17:30 Neuro: Level of Consciousness is awake, alert, obeys commands, Oriented to person, aa5 place, time, situation. Respiratory: Airway is patent Respiratory effort is even, unlabored, Respiratory pattern is regular, symmetrical. Derm: Skin is dry, Skin is pale, Skin temperature is warm. 17:30 Reassessment: Patient denies pain at this time. aa5 18:45 Neuro: Level of Consciousness is awake, alert, obeys commands, Oriented to person, aa5 place, time, situation. Respiratory: Airway is patent Respiratory effort is even, unlabored, Respiratory pattern is regular, symmetrical. Derm: Skin is dry, Skin is pale, Skin temperature is warm. Vital Signs: 16:20 BP 159 / 62; Pulse 76; Resp 20 S; Temp 98.7(O); Pulse Ox 94% on R/A; Pain 5/10; aa5 17:30 BP 166 / 66; Pulse 77; Resp 18 S; Pulse Ox 99% on 2 lpm NC; aa5 18:00 BP 160 / 68; Pulse 78; Resp 18 S; Temp 98.8(O); Pulse Ox 100% on 2 lpm NC; aa5 ED Course: 15:52 Patient arrived in ED. mr 15:57 Harris Black MD is Attending Physician. [facility] 16:19 Triage completed. iw 16:20 Patient has correct armband on for positive identification. Placed in gown. Bed in low aa5 position. Call light in reach. Side rails up X2. Adult w/ patient. laboratory monitor on. Pulse ox on. NIBP on. 16:20 Arm band placed on. aa5 16:21 Jessica Roche, TEAGAN is Primary Nurse. aa5 16:33 XRAY Chest (1 view) In Process Unspecified. EDMS 16:49 Missed attempt(s): 22 gauge in left upper arm. Bleeding controlled, band aid applied, aa5 catheter tip intact. 16:49 First set of blood cultures drawn by me. aa5 16:49 Initial lab(s) drawn, by oh, sent to lab. aa5 16:57 Everardo Cantu MD is Hospitalizing Provider. [facility] 17:00 Inserted saline lock: 20 gauge in right upper arm, using aseptic technique. Blood aa5 collected. 17:00 Second set of blood cultures drawn by me. aa5 18:45 No provider procedures requiring assistance completed. Patient admitted, IV remains in aa5 place. Administered Medications: 16:52 Drug: Albuterol - atroVENT (3:1) (2.5 mg - 0.5 mg) 3 ml Route: Nebulizer; aa5 17:05 Follow up: Response: No adverse reaction aa5 17:00 Drug: Pepcid 20 mg Route: IVP; Site: right upper arm; aa5 17:10 Follow up: Response: No adverse reaction aa5 17:01 Drug: SOLU-Medrol 125 mg Route: IVP; Site: right upper arm; aa5 17:10 Follow up: Response: No adverse reaction aa5 18:32 Drug: Lasix 40 mg Route: IVP; Site: right upper arm; aa5 18:45 Follow up: Response: No adverse reaction aa5 Point of Care Testing: Guaiac: 18:30 Stool Guaiac: Negative; Stool Hemoccult Control: Pass; aa5 18:[address] Black aa5 Outcome: 16:57 Decision to Hospitalize by Provider. gino 18:45 Admitted to Tele accompanied by tech, family with patient, via stretcher, with oxygen, aa5 with chart, Report called to TEAGAN Campoverde 18:45 Condition: stable aa5 18:45 Discharge instructions given to patient, family, Instructed on the need for admit, Demonstrated understanding of instructions. 18:46 Patient left the ED. aa5 Signatures: Dispatcher [employer] Harris Nelson MD MD cha Rivera, Jeniffer Harris, RN Jessica Hernandes RN RN aa5 Corrections: (The following items were deleted from the chart) 17:43 16:00 BP 159 / 62; Pulse 76bpm; Resp 20bpm; Spontaneous; Pulse Ox 94% RA; Temp 98.7F aa5 Oral; Pain 5/10; aa5 18:48 18:00 BP 160 / 68; Pulse 78bpm; Resp 18bpm; Spontaneous; Pulse Ox 100% 2 lpm Nasal aa5 Cannula; aa5
[2019-05-19 17:09] LABS: Protime INR 1.21
[2019-05-19 17:12] LABS: Absolute Lymphocytes (CBC) 1.6 K/uL (0.7-4.9); Basophils % 0.2 % (0-1.3); Hematocrit 27.2 % (36.0-45.0); Lymphocytes % 10.9 % (15.3-44.8); RBC Red Blood Cell Count 3.23 M/uL (3.86-4.86)
[2019-05-19 17:34] LABS: ALT/SGPT 22 U/L (12-78); AST/SGOT 15 U/L (15-37); Albumin 2.5 g/dL (3.4-5.0); Alkaline Phosphatase 163 U/L (45-117); BUN Blood Urea Nitrogen 14 mg/dL (7-18); Bicarbonate 29 mmol/L (21-32); Bilirubin Direct 0.2 mg/dL (0-0.2); Bilirubin Total 0.5 mg/dL (0.2-1.0); Glucose Level 127 mg/dL (74-106); Lipase 77 U/L (73-393); Magnesium 1.9 mg/dL (1.8-2.4); NT PRO-BNP 1173 pg/mL (<450); Potassium 4.3 mmol/L (3.5-5.1); Protein, Total 7.2 g/dL (6.4-8.2); Sodium Level 142 mmol/L (136-145); Troponin (Emerg Dept Use Only) < 0.02 ng/mL (0.0-0.045)
[2019-05-19] MEDS ORDERED: ONDANSETRON 4 MG/2 ML VIAL IV PRN (17:53)
--- NOTE | 2019-05-19 17:53 | P.HP ---
Certification for Inpatient Patient admitted to: Inpatient With expected LOS: >2 Midnights Practitioner: I am a practitioner with admitting privileges, knowledge of patient current condition, hospital course, and medical plan of care. Services: Services provided to patient in accordance with Admission requirements found in Title 42 Section 412.3 of the Code of Federal Regulations Patient History Date of Service: 05/19/19 Reason for admission: Shortness of breath History of Present Illness: 78 yrs old Female with past medical history of diabetes mellitus, hypertension , COPD, hyperlipidemia, CAD, history of diastolic heart failure, admitted with shortness of breath which has been going on for the last 2 days and was progressively worsening . she was also found to be hypoxic on minimal ambulation Denies any chest pain. No sick contacts. has cough without any production. Shortness of breath worsens with ambulation. No fever no chills no nausea vomiting or diarrhea Patient was tough seen in the ER and workup was consistent with hypoxic hypercapnic respiratory failure and CHF exacerbation The patient is being admitted for further management of the same Allergies Sulfa (Sulfonamide Antibiotics) Allergy (Intermediate, Verified 01/13/18 00:08) Shortness of breath Home medications list reviewed: Yes Home Medications: Gabapentin [Neurontin*] 600 mg PO TID 12/29/12 Insulin Detemir [Levemir] 66 units SQ BEDTIME 12/29/12 Magnesium Oxide [Magnesium] 400 mg PO DAILY 12/29/12 Metformin HCl [Glucophage*] 1,000 mg PO BID 12/29/12 Insulin Aspart Prot/Insuln Asp [Novolog Mix 70-30 Flexpen] 50 unit SQ DAILY AT SUPPER 06/12/17 Bimatoprost [Lumigan] 0.01 drop LEFT EYE BID 06/14/17 Brimonidine Tartrate/Timolol [Combigan 0.2%-0.5% Eye Drops] 5 drop LEFT EYE BEDTIME 06/14/17 Pantoprazole [Protonix Tab*] 40 mg PO ACB #30 tab 06/14/17 Thiamine Mononitrate (Vit B1) [Vitamin B-1] 100 mg PO DAILY #30 tablet 06/17/17 Aspirin Chewable [Aspirin Chewable*] 81 mg PO DAILY 01/13/18 Atorvastatin Calcium [Lipitor] 80 mg PO BEDTIME 01/13/18 Fluoxetine HCl [Prozac*] 40 mg PO BEDTIME 01/13/18 Multivit,Calc,Mins/Iron/Folic [One Daily Women's Health Tab] 1 tab PO DAILY Nitroglycerin 0.4 mg SL PRN PRN 01/13/18 Potassium Chloride 20 meq PO BID 01/13/18 Furosemide [Lasix*] 60 mg PO DAILY #30 tab 01/14/18 ALPRAZolam [Xanax*] 0.25 mg PO TID PRN tab 02/23/19 Aspirin 81 mg PO DAILY #30 tab.chew 02/23/19 Clopidogrel Bisulfate [Plavix*] 75 mg PO DAILY #30 tablet 02/23/19 Metoprolol Tartrate [Lopressor*] 50 mg PO BID #60 tab 02/23/19 Valsartan [Diovan*] 160 mg PO DAILY #30 tab 02/23/19 - Past Medical/Surgical History Diabetic: Yes Past Medical History: Reviewed- Non-Contributory -: Glaucoma -: CHF, diastolic dysfunction -: HTN -: GERD -: DM Neuropathy -: History of Colon CA -: Diabetes mellitus type 2 -: Fatty liver with Morbid Obesity Past Surgical History: Reviewed- Non-Contributory -: Cholecystectomy -: Colon resection -: Appendectomy -: Hysterectomy -: Right Rotator Cuff Repair -: Colectomy Psychosocial/ Personal History: She lives at home. Her daughter helps her at home. - Family History Family History: Reviewed- Non-Contributory - Family History Mother -: Cancer Notes: colon Brother -: Hypertension Sister -: Heart disease, Hypertension, Lung disease, Cancer - Social History Smoking Status: Never smoker Alcohol use: No CD- Drugs: No Caffeine use: Yes Review of Systems 10-point ROS is otherwise unremarkable Physical Examination - Vital Signs Temperature: 96.2 F Blood Pressure: 148/94 Pulse: 84 Respirations: 20 - Physical Exam General: Alert, In no apparent distress, Obese HEENT: Atraumatic, Normocephalic Neck: Supple Respiratory: Diminished, Crackles/rales, Expiratory wheezes Cardiovascular: Normal pulses, Regular rate/rhythm, Edema Capillary refill: <2 Seconds Gastrointestinal: Soft and benign, W/out hepatosplenomegaly Musculoskeletal: No clubbing, Swelling Integumentary: No rashes Neurological: Normal speech, Normal strength at 5/5 x4 extr Lymphatics: No axilla or inguinal lymphadenopathy External genitalia: Deferred Rectal: Deferred - Studies Laboratory Data (last 24 hrs) 05/19/19 17:01: WBC 14.7 H, Hgb 8.6 L, Hct 27.2 L, Plt Count 317 05/19/19 16:49: PT 14.2 H, INR 1.21 05/19/19 16:49: Sodium 142, Potassium 4.3, BUN 14, Creatinine 0.93, Glucose 127 H, Magnesium 1.9, Total Bilirubin 0.5, AST 15, ALT 22, Alkaline Phosphatase 163 H, Lipase 77 Laboratory Last Values WBC 14.7 K/uL (4.3-10.9) H 05/19/19 17:01 RBC 3.23 M/uL (3.86-4.86) L 05/19/19 17:01 Hgb 8.6 g/dL (12.0-15.0) L 05/19/19 17:01 Hct 27.2 % (36.0-45.0) L 05/19/19 17:01 MCV 84.2 fL (80-100) 05/19/19 17:01 MCH 26.6 pg (27.0-35.0) L 05/19/19 17:01 MCHC 31.6 g/dL (32.0-36.0) L 05/19/19 17:01 RDW 16.4 % (12.1-15.2) H 05/19/19 17:01 Plt Count 317 K/uL (152-406) 05/19/19 17:01 MPV 8.0 fL (7.6-11.3) 05/19/19 17:01 Neutrophils % 75.6 % (41.7-73.7) H 05/19/19 17:01 Lymphocytes % 10.9 % (15.3-44.8) L 05/19/19 17:01 Monocytes % 11.3 % (3.3-12.3) 05/19/19 17:01 Eosinophils % 2.0 % (0-4.4) 05/19/19 17:01 Basophils % 0.2 % (0-1.3) 05/19/19 17:01 Absolute Neutrophils 11.1 K/uL (1.8-8.0) H 05/19/19 17:01 Absolute Lymphocytes 1.6 K/uL (0.7-4.9) 05/19/19 17:01 Absolute Monocytes 1.7 K/uL (0.1-1.3) H 05/19/19 17:01 Absolute Eosinophils 0.3 K/uL (0-0.5) 05/19/19 17:01 Absolute Basophils 0.0 K/uL (0-0.5) 05/19/19 17:01 PT 14.2 SECONDS (9.5-12.5) H 05/19/19 16:49 INR 1.21 05/19/19 16:49 pH 7.41 (7.35-7.45) 05/19/19 16:40 pCO2 48.0 mmHG (35-45) H 05/19/19 16:40 pO2 68.8 mmHG (75-100) L 05/19/19 16:40 HCO3 29.7 mmol/L (22-28) H 05/19/19 16:40 Base Excess 5.2 mmol/L 05/19/19 16:40 Oxyhemoglobin 90.0 % (94-97) L 05/19/19 16:40 ABG O2 Sat (Measured) 92.2 % (92-98.5) 05/19/19 16:40 ABG Carboxyhemoglobin 1.6 % (0-1.5) H 05/19/19 16:40 ABG Methemoglobin 0.8 % (0-1.5) 05/19/19 16:40 Other Total Hgb 8.8 g/dl (12-18) L 05/19/19 16:40 Inspired O2 28.0 % 05/19/19 16:40 Sodium 142 mmol/L (136-145) 05/19/19 16:49 Potassium 4.3 mmol/L (3.5-5.1) 05/19/19 16:49 Chloride 104 mmol/L (98-107) 05/19/19 16:49 Carbon Dioxide 29 mmol/L (21-32) 05/19/19 16:49 BUN 14 mg/dL (7-18) 05/19/19 16:49 Creatinine 0.93 mg/dL (0.55-1.3) 05/19/19 16:49 Estimated GFR 71 mL/min (=/>90) L 05/19/19 16:49 Glucose 127 mg/dL (74-106) H 05/19/19 16:49 Calcium 8.8 mg/dL (8.5-10.1) 05/19/19 16:49 Magnesium 1.9 mg/dL (1.8-2.4) 05/19/19 16:49 Total Bilirubin 0.5 mg/dL (0.2-1.0) 05/19/19 16:49 Direct Bilirubin 0.2 mg/dL (0-0.2) 05/19/19 16:49 AST 15 U/L (15-37) 05/19/19 16:49 ALT 22 U/L (12-78) 05/19/19 16:49 Alkaline Phosphatase 163 U/L (45-117) H 05/19/19 16:49 Rapid Troponin I < 0.02 ng/mL (0.0-0.045) 05/19/19 16:49 NT-Pro-B Natriuret Pep 1173 pg/mL (<450) H 05/19/19 16:49 Serum Total Protein 7.2 g/dL (6.4-8.2) 05/19/19 16:49 Albumin 2.5 g/dL (3.4-5.0) L 05/19/19 16:49 Globulin 4.7 g/dL (2.3-3.5) H 05/19/19 16:49 Albumin/Globulin Ratio 0.5 (1.1-1.8) L 05/19/19 16:49 Lipase 77 U/L (73-393) 05/19/19 16:49 Assessment and Plan - Problems (Diagnosis) (1) Acute on chronic diastolic (congestive) heart failure Onset Date: 02/18/17 Current Visit: No Status: Acute (2) Acute respiratory failure with hypoxia Onset Date: 11/21/15 Current Visit: No Status: Acute (3) Respiratory failure with hypoxia and hypercapnia Current Visit: No Status: Acute Qualifiers: (4) Anemia Onset Date: 06/13/17 Current Visit: No Status: Chronic Qualifiers: (5) COPD (chronic obstructive pulmonary disease) Onset Date: 06/16/17 Current Visit: No Status: Chronic Qualifiers: (6) Depression Onset Date: 06/13/17 Current Visit: No Status: Chronic Qualifiers: (7) Diabetes Current Visit: No Status: Chronic Qualifiers: (8) GERD (gastroesophageal reflux disease) Onset Date: 06/13/17 Current Visit: No Status: Chronic Qualifiers: (9) HTN (hypertension) Onset Date: 02/18/17 Current Visit: No Status: Chronic Qualifiers: (10) Hyperlipidemia Onset Date: 06/13/17 Current Visit: No Status: Chronic Qualifiers: - Plan Acute on chronic and diastolic CHF Acute respiratory failure combined hypoxic/hypercapnic Diabetes hypertension Hyperlipidemia Depression COPD with mild exacerbation Plan Monitor under telemetry Trend cardiac enzymes Aggressive diuresis bronchodilators Insulin sliding scale and basal insulin continue home medications and titrate as needed antihypertensives titrated Monitor renal parameters GI/DVT prophylaxis - Advance Directives Does patient have a Living Will: No Does patient have a Durable POA for Healthcare: No Time Spent Managing Pts Care (In Minutes): 46
[2019-05-19] MEDS ORDERED: ALPRAZOLAM 0.25 MG TABLET PO PRN (17:56)
[2019-05-19 18:20] LABS: Urine Blood NEGATIVE (NEG); Urine Glucose NEGATIVE (NEG); Urine Protein 3+ (NEG)
[2019-05-19] MEDS ORDERED: FUROSEMIDE 40 MG/4 ML VIAL ONE (18:29)
[2019-05-19] MEDS: INSULIN -REGULAR HUMAN 50 UNIT/0.5 ML ML SQ SCH (20:15)
[2019-05-19] MEDS: ENOXAPARIN 40 MG/0.4 ML SQ SCH (20:16)
[2019-05-19] MEDS: GABAPENTIN 300 MG CAP PO SCH (20:16)
[2019-05-19] MEDS: METOPROLOL TAR 50 MG TAB PO SCH (20:17)
[2019-05-19] MEDS: ACETAMINOPHEN 500 MG TAB PO PRN (20:17)
[2019-05-19] MEDS: ALBUTEROL 2.5 MG/3 ML NEB SOL NEB SCH (20:20)
[2019-05-19] MEDS: IPRATROPIUM BROM 0.5MG/2.5ML NEB SCH (20:20)
[2019-05-19 20:54] LABS: CKMB Creatine Kinase MB 1.4 ng/mL (0.3-3.6); Troponin I < 0.02 ng/mL (0.0-0.045)
[2019-05-19] MEDS: FLUOXETINE 20 MG CAP PO SCH (21:00)
[2019-05-19] MEDS: BRIMONIDINE TARTRATE LEFT EYE SCH (21:00)
[2019-05-19] MEDS: TIMOLOL LEFT EYE SCH (21:00)
[2019-05-19] MEDS ORDERED: FLUOXETINE 10 MG CAP PO SCH (21:00)
[2019-05-19] MEDS ORDERED: ATORVASTATIN 80 MG TAB PO SCH (21:00)
[2019-05-19] MEDS ORDERED: INSULIN DETEMIR SQ SCH (21:00)
[2019-05-19] MEDS ORDERED: INSULIN GLARGINE 100 UNITS/ML SQ SCH (21:00)
[2019-05-20] MEDS: FUROSEMIDE 40 MG/4 ML VIAL IV SCH ×3 (01:30→22:06)
[2019-05-20] MEDS: ALBUTEROL 2.5 MG/3 ML NEB SOL NEB SCH ×4 (02:18→19:35)
[2019-05-20] MEDS: IPRATROPIUM BROM 0.5MG/2.5ML NEB SCH ×4 (02:18→19:35)
[2019-05-20 02:40] LABS: CKMB Creatine Kinase MB 1.5 ng/mL (0.3-3.6); Troponin I < 0.02 ng/mL (0.0-0.045)
[2019-05-20 05:57] LABS: Basophils % 0.2 % (0-1.3); Hematocrit 27.6 % (36.0-45.0); Lymphocytes % 6.7 % (15.3-44.8); MPV 8.1 fL (7.6-11.3); RBC Red Blood Cell Count 3.29 M/uL (3.86-4.86)
[2019-05-20 06:15] LABS: Albumin 2.6 g/dL (3.4-5.0); Bilirubin Total 0.6 mg/dL (0.2-1.0); Protein, Total 7.3 g/dL (6.4-8.2)
[2019-05-20] MEDS ORDERED: PANTOPRAZOLE 40MG TABLET PO SCH (07:30)
[2019-05-20] MEDS: GABAPENTIN 300 MG CAP PO SCH ×6 (08:08→22:04)
[2019-05-20] MEDS: INSULIN -REGULAR HUMAN 50 UNIT/0.5 ML ML SQ SCH ×4 (08:08→22:09)
[2019-05-20] MEDS: THIAMINE HCL 100 MG TABLET PO SCH (08:09)
[2019-05-20] MEDS: MULTIVIT W/ MINERAL TAB PO SCH (08:09)
[2019-05-20] MEDS: CLOPIDOGREL 75 MG TABLET PO SCH (08:09)
[2019-05-20] MEDS: VALSARTAN 160 MG TAB PO SCH (08:09)
[2019-05-20] MEDS: MAGNESIUM OXIDE 400 MG TAB PO SCH (08:10)
[2019-05-20] MEDS: METOPROLOL TAR 50 MG TAB PO SCH ×2 (08:10→22:04)
[2019-05-20] MEDS: ENOXAPARIN 40 MG/0.4 ML SQ SCH (08:11)
[2019-05-20] MEDS: ASPIRIN 81 MG CHEWABLE TABLET PO SCH (08:11)
[2019-05-20 08:39] LABS: Blood Morphology Comment NOT SEEN (NOT SEEN); Platelet Estimate ADEQ
[2019-05-20] MEDS ORDERED: NITROGLYCERIN 0.4 MG/TAB SL PRN (08:39)
[2019-05-20] MEDS ORDERED: TRAMADOL HCL 50 MG TAB PO PRN (08:39)
[2019-05-20] MEDS ORDERED: IRON PO SCH (09:00)
[2019-05-20] MEDS ORDERED: HOME MED 1 EA UNK (Magnesium Oxide [Magnesium] 400 MG) PO SCH (09:00)
[2019-05-20] MEDS ORDERED: HOME MED 1 EA UNK (Gabapentin [Gabapentin] 600 MG) PO SCH (09:00)
[2019-05-20] MEDS ORDERED: MULTIVIT CALC MINS PO SCH (09:00)
[2019-05-20] MEDS ORDERED: HOME MED 1 EA UNK (Buspirone Hcl [Buspar] 10 MG) PO SCH (09:00)
[2019-05-20] MEDS ORDERED: THIAMINE MONONITRATE 100 MG PO SCH (09:00)
[2019-05-20] MEDS ORDERED: FOLIC PO SCH (09:00)
[2019-05-20] MEDS: BUSPIRONE HCL 5 MG TABLET PO SCH ×2 (10:11→22:02)
[2019-05-20] MEDS: POTASSIUM CL SA 10 MEQ TAB PO SCH ×2 (10:11→22:02)
[2019-05-20] MEDS: SERTRALINE HCL 50 MG TAB PO SCH (10:11)
[2019-05-20] MEDS: ACETAMINOPHEN 500 MG TAB PO PRN (10:21)
[2019-05-20 11:09] LABS: CKMB Creatine Kinase MB 1.7 ng/mL (0.3-3.6); Troponin I < 0.02 ng/mL (0.0-0.045)
--- NOTE | 2019-05-20 12:12 | P.PN ---
Subjective Date of Service: 05/20/19 Chief Complaint: Shortness of breath Patient states he feels much better today and wants to go home. She is complaining of headache. No recorded fever. 1 blood culture bottle is growing Gram positive cocci in clusters. Physical Examination - Vital Signs Temperature: 97.3 F Blood Pressure: 186/74 Pulse: 79 Respirations: 16 Pulse Ox (%): 92 - Physical Exam General: Alert, In no apparent distress HEENT: Mucous membr. moist/pink, Sclerae nonicteric Neck: Supple, JVD not distended Respiratory: Clear to auscultation bilaterally, Normal air movement Cardiovascular: Regular rate/rhythm, Normal S1 S2, Edema (Lower extremities) Capillary refill: <2 Seconds Gastrointestinal: Normal bowel sounds, Soft and benign, Non-distended, No tenderness Musculoskeletal: No erythema Integumentary: No rashes Neurological: Normal strength at 5/5 x4 extr - Studies Laboratory Data (last 24 hrs) 05/19/19 17:01: WBC 14.7 H, Hgb 8.6 L, Hct 27.2 L, Plt Count 317 05/19/19 16:49: PT 14.2 H, INR 1.21 05/19/19 16:49: Sodium 142, Potassium 4.3, BUN 14, Creatinine 0.93, Glucose 127 H, Magnesium 1.9, Total Bilirubin 0.5, AST 15, ALT 22, Alkaline Phosphatase 163 H, Lipase 77 Microbiology Data (last 24 hrs): 05/19/19 17:01 Blood - Blood Gram Stain - Final 05/19/19 16:49 Blood - Blood Anaerobic Blood Culture - Final Assessment And Plan - Current Problems (Diagnosis) (1) Acute on chronic diastolic (congestive) heart failure Onset Date: 02/18/17 Current Visit: No Status: Acute (2) Acute respiratory failure with hypoxia Onset Date: 11/21/15 Current Visit: No Status: Acute (3) Respiratory failure with hypoxia and hypercapnia Current Visit: No Status: Acute Qualifiers: (4) COPD (chronic obstructive pulmonary disease) Onset Date: 06/16/17 Current Visit: No Status: Chronic Qualifiers: (5) Diabetes mellitus Onset Date: 06/13/17 Current Visit: No Status: Chronic Qualifiers: Diabetes mellitus type: type 2 Diabetes mellitus mcc insulin use: with supervisor intermediates use Diabetes mellitus complication status: with unspecified complications - Plan Patient overall has improved clinically. She states her respiratory condition is back to baseline. She states she uses 2 L of oxygen at home. Will continue current treatment. Continue bronchodilators. Reduce IV Lasix dose to 40 mg b.i.d. for 1 more day. Start IV vancomycin Repeat blood cultures. Titrate oxygen Increase activity as tolerated.
[2019-05-20] MEDS ORDERED: VANCOMYCIN 1 GM in NA CHLORIDE 0.9% 250 ML IVPB SCH (13:00)
[2019-05-20] MEDS ORDERED: D50W 25 GM/50 ML SYRINGE/VIAL IV PRN (13:44)
[2019-05-20] MEDS ORDERED: GLUCAGON 1 MG/VIAL IM PRN (13:44)
[2019-05-20] MEDS: VANCOMYCIN 2 GM in NA CHLORIDE 0.9% 500 ML IVPB SCH (13:51)
[2019-05-20] MEDS ORDERED: INSULIN GLARGINE 100 UNITS/ML SQ ONE (15:00)
[2019-05-20] MEDS ORDERED: INSULIN DETEMIR SQ SCH (21:00)
[2019-05-20] MEDS: TIMOLOL LEFT EYE SCH (21:00)
[2019-05-20] MEDS: BRIMONIDINE TARTRATE LEFT EYE SCH (21:00)
[2019-05-20] MEDS: ATORVASTATIN 80 MG TAB PO SCH (22:01)
[2019-05-20] MEDS: FLUOXETINE 20 MG CAP PO SCH (22:03)
[2019-05-20] MEDS: INSULIN GLARGINE 100 UNITS/ML SQ SCH (22:07)
[2019-05-21] MEDS: ALBUTEROL 2.5 MG/3 ML NEB SOL NEB SCH ×4 (01:55→20:00)
[2019-05-21] MEDS: IPRATROPIUM BROM 0.5MG/2.5ML NEB SCH ×4 (01:55→20:00)
[2019-05-21 05:59] VITALS: BMI 45.5
[2019-05-21 06:25] LABS: Phosphorus 3.1 mg/dL (2.5-4.9)
[2019-05-21 06:28] LABS: Absolute Lymphocytes (CBC) 1.7 K/uL (0.7-4.9); Basophils % 0.2 % (0-1.3); Hematocrit 27.4 % (36.0-45.0); Lymphocytes % 11.3 % (15.3-44.8); MPV 7.9 fL (7.6-11.3); RBC Red Blood Cell Count 3.26 M/uL (3.86-4.86)
[2019-05-21] MEDS: FUROSEMIDE 40 MG/4 ML VIAL IV SCH ×2 (08:35→21:26)
[2019-05-21] MEDS: POTASSIUM CL SA 10 MEQ TAB PO SCH ×2 (08:35→21:23)
[2019-05-21] MEDS: ENOXAPARIN 40 MG/0.4 ML SQ SCH (08:36)
[2019-05-21] MEDS: BUSPIRONE HCL 5 MG TABLET PO SCH ×2 (08:36→21:24)
[2019-05-21] MEDS: ASPIRIN 81 MG CHEWABLE TABLET PO SCH (08:36)
[2019-05-21] MEDS: PANTOPRAZOLE 40MG TABLET PO SCH (08:36)
[2019-05-21] MEDS: MAGNESIUM OXIDE 400 MG TAB PO SCH (08:36)
[2019-05-21] MEDS: MULTIVIT W/ MINERAL TAB PO SCH (08:36)
[2019-05-21] MEDS: THIAMINE HCL 100 MG TABLET PO SCH (08:36)
[2019-05-21] MEDS: METOPROLOL TAR 50 MG TAB PO SCH ×2 (08:36→21:24)
[2019-05-21] MEDS: SERTRALINE HCL 50 MG TAB PO SCH (08:36)
[2019-05-21] MEDS: CLOPIDOGREL 75 MG TABLET PO SCH (08:36)
[2019-05-21] MEDS: GABAPENTIN 300 MG CAP PO SCH ×3 (08:36→21:24)
[2019-05-21] MEDS: VALSARTAN 160 MG TAB PO SCH (08:36)
[2019-05-21] MEDS: INSULIN -REGULAR HUMAN 50 UNIT/0.5 ML ML SQ SCH ×4 (08:37→21:25)
--- NOTE | 2019-05-21 15:38 | EKG ---
Test Date: 2019-05-19 Test Time: 16:03:15 Power Builder Developer: FRIDA MEASUREMENT RESULTS: Intervals: Rate: 79 ID: [id number] QRSD: 80 QT: 416 QTc: 477 [place]: P: 48 ID: [id number] QRS: 23 T: 69 INTERPRETIVE STATEMENTS: Normal sinus rhythm Cannot rule out Anterior infarct, age undetermined T wave abnormality, consider lateral ischemia Abnormal ECG Compared to ECG 02/20/2019 08:15:09 T-wave abnormality now present Possible ischemia now present Atrial premature complex(es) no longer present Myocardial infarct finding still present Electronically Signed On 05-21-19 15:38:03 BROACHING MACHINE OPERATOR by Antonio Murphy
--- NOTE | 2019-05-21 16:41 | PN ---
Date of Progress Note: 05/21/2019 Subjective: Patient seen and examined. Chart reviewed and case discussed with RN. Patient denies a ny specific complaints. No acute events overnight. Blood sugar levels have been running on the high side. Medications: List reviewed. Code Status: Full. Physical Examination: Vital Signs: Temperature 97.6, heart rate 85, blood pressure 151/66, respirations 18, O2 sat 97% on 2 L via nasal cannula. General: Awake, alert, oriented x3. Elderly female, morbidly obese, somewhat ill-appearing. CV: S1, S2. Regular rate and rhythm. Peripheral pulses present. Respiratory: Moving air well bilaterally. No wheezing or stridor. Gastrointestinal: Abdomen is soft, nontender, nondistended. Positive bowel sounds. Extremities: No clubbing, cyanosis. Patient has minimal pedal edema. Neuro: No focal neurological deficit. Patient is blind in both eyes. Laboratory Data: WBC 14.7, H and H 9.3 and 27.4, platelets 326, neutrophils 74%. Sodium 140, potass ium 4, chloride 103, CO2 of 28, BUN 20, creatinine 1.14, glucose 271, calcium 8.8, phosphorus 3.1. B lood cultures, no growth to date, 1 bottle showing gram-positive cocci in clusters. Urine culture gr eater than 100,000 colony-forming units of mixed beka. Influenza screen is negative. Assessment And Plan: 1.Acute on chronic diastolic heart failure. We will continue with congestive heart failure guidelin es. Continue diuretics. Monitor I's and O's, daily weights. 2.Acute respiratory failure with hypoxia, improving. Patient is on 2 L via nasal cannula and 95% sa turation. We will continue to wean off as tolerated. 3.Hypercapnia. 4.Chronic obstructive pulmonary disease, chronic bronchitis. Continue nebulizer treatments as neede d. 5.Diabetes mellitus type 2 with long-term use of insulin with hyperglycemia, uncontrolled. Check he moglobin A1c. Insulin dose has been adjusted. Continue sliding scale insulin. Monitor blood glucos e levels closely. 6.Morbid obesity. BMI of 45. 7.Blindness. 8.Glaucoma. 9.Gastroesophageal reflux disease. Continue with proton pump inhibitor. 10.History of colon cancer, stable. 11.Deep venous thrombosis prophylaxis with Lovenox. 12.Disposition: Continue IV antibiotics. Patient is on vancomycin for possible bacteremia. Follow up on blood cultures likely contaminant and is as it is 1 bottle out of 4. Adjust insulin dose as n ecessary, currently on moderate scale, we will switch to aggressive. 13.Likely discharge once cultures have returned negative and clinically improved with her heart fail ure. SA/MODL Voice ID: [id number] Report ID: [id number]
[2019-05-21] MEDS: BRIMONIDINE TARTRATE LEFT EYE SCH (21:00)
[2019-05-21] MEDS: FLUOXETINE 20 MG CAP PO SCH (21:00)
[2019-05-21] MEDS: TIMOLOL LEFT EYE SCH (21:00)
[2019-05-21] MEDS: ATORVASTATIN 80 MG TAB PO SCH (21:24)
[2019-05-21] MEDS: INSULIN GLARGINE 100 UNITS/ML SQ SCH (21:25)
[2019-05-22] MEDS: ALBUTEROL 2.5 MG/3 ML NEB SOL NEB SCH ×2 (01:15→09:25)
[2019-05-22] MEDS: IPRATROPIUM BROM 0.5MG/2.5ML NEB SCH ×2 (01:15→09:25)
[2019-05-22] MEDS: VANCOMYCIN 2 GM in NA CHLORIDE 0.9% 500 ML IVPB SCH (01:22)
[2019-05-22 05:26] LABS: Absolute Lymphocytes (CBC) 1.5 K/uL (0.7-4.9); Basophils % 0.3 % (0-1.3); Hematocrit 26.8 % (36.0-45.0); Lymphocytes % 15.2 % (15.3-44.8); MPV 7.7 fL (7.6-11.3); RBC Red Blood Cell Count 3.18 M/uL (3.86-4.86)
[2019-05-22 05:44] LABS: Albumin 2.6 g/dL (3.4-5.0); Bilirubin Total 0.4 mg/dL (0.2-1.0); Potassium 4.1 mmol/L (3.5-5.1); Protein, Total 6.8 g/dL (6.4-8.2)
[2019-05-22] MEDS: INSULIN -REGULAR HUMAN 50 UNIT/0.5 ML ML SQ SCH ×2 (08:59→11:54)
[2019-05-22] MEDS: MAGNESIUM OXIDE 400 MG TAB PO SCH (09:00)
[2019-05-22] MEDS: ASPIRIN 81 MG CHEWABLE TABLET PO SCH (09:04)
[2019-05-22] MEDS: CLOPIDOGREL 75 MG TABLET PO SCH (09:04)
[2019-05-22] MEDS: BUSPIRONE HCL 5 MG TABLET PO SCH (09:05)
[2019-05-22] MEDS: SERTRALINE HCL 50 MG TAB PO SCH (09:05)
[2019-05-22] MEDS: GABAPENTIN 300 MG CAP PO SCH (09:05)
[2019-05-22] MEDS: METOPROLOL TAR 50 MG TAB PO SCH (09:05)
[2019-05-22] MEDS: POTASSIUM CL SA 10 MEQ TAB PO SCH (09:06)
[2019-05-22] MEDS: FUROSEMIDE 40 MG/4 ML VIAL IV SCH (09:06)
[2019-05-22] MEDS: THIAMINE HCL 100 MG TABLET PO SCH (09:06)
[2019-05-22] MEDS: MULTIVIT W/ MINERAL TAB PO SCH (09:07)
[2019-05-22] MEDS: PANTOPRAZOLE 40MG TABLET PO SCH (09:07)
[2019-05-22] MEDS: ENOXAPARIN 40 MG/0.4 ML SQ SCH (09:07)
[2019-05-22] MEDS: VALSARTAN 160 MG TAB PO SCH (09:07)
[2019-05-22 10:53] VITALS: O2SAT 95
[2019-05-22 12:26] VITALS: BP 158/68; TEMP 97.6
--- NOTE | 2019-05-23 03:42 | DS ---
Date of Discharge: 05/22/2019 Consultants: None. Admitting Diagnoses: 1.Acute on chronic diastolic heart failure. 2.Acute respiratory failure with hypoxia and hypercapnia. 3.Anemia. 4.Chronic obstructive pulmonary disease, chronic bronchitis. 5.Major depressive disorder, in remission. 6.Diabetes mellitus type 2 with hyperglycemia insulin requiring. 7.Gastroesophageal reflux disease without esophagitis. 8.Essential hypertension. 9.Mixed hyperlipidemia. Discharge Diagnoses: 1.Acute respiratory failure with hypoxia and hypercapnia, improved. 2.Acute on chronic diastolic heart failure, improving. 3.Chronic obstructive pulmonary disease, chronic bronchitis. 4.Diabetes mellitus type 2 with hyperglycemia, insulin requiring. 5.Morbid obesity, BMI 45. 6.Blindness. 7.Glaucoma. 8.Gastroesophageal reflux disease without esophagitis. 9.History of colon cancer. 10.Essential hypertension. 11.Mixed hyperlipidemia. 12.Fatty liver disease. Hospital Course: Patient is a 78-year-old female with complicated past medical history including bli ndness from a glaucoma, diabetes, hypertension, COPD, hyperlipidemia, heart disease, diastolic heart failure, who was on 2 L of oxygen at home, comes in with shortness of breath. Patient did not have a ny signs of pneumonia. Workup revealed hypoxic hypercapnic respiratory failure due to congestive hea rt failure. Patient was started on diuretics, she was on supplemental oxygen. Patient improved. He r O2 saturations improved, her breathing remained stable. She did have uncontrolled blood glucose le vels in the 400, which improved with her home dose of insulin. Patient's white blood cell count also improved. Her ABG showed hypoxia and hypercapnia. Patient was then back to her baseline. Her flui d balance was negative. She was counseled regarding her fluid restriction and sodium restriction reg arding her CHF. She voiced understanding. She lives with her daughter. She is not interested in go ing to rehab. She is doing well, ambulating. Patient was then discharged home in a stable condition . Activity: Fall precautions. Medications: As per medication reconciliation list. Diet: Diabetic, low-sodium, free-fluid restricted diet. Followup: Follow up with primary care physician in 2-3 days. Return to ER for worsening condition. Follow up with primary television cameraman in 2-4 weeks. Physical Examination: General: Awake, alert, and oriented x3. Elderly female, morbidly obese. CV: S1, S2. Respiratory: Aeration is improved. No wheezing or stridor. Gastrointestinal: Abdomen is soft. Nontender, nondistended. Positive bowel sounds. Extremities: No clubbing, cyanosis. Minimal pedal edema. Neuro: No focal neurological deficit. Total time spent discharging patient was 38 minutes. /MODStephen Voice ID: [id number] Report ID: [id number]
== END 2019-05-22 12:57 | disposition home or self-care (01) | DRG 291 ==
LOC: ER 15:48 → ERHOLD 17:54 → 2ND 18:33
PROVIDERS: ADMIT Family Medicine; ATTEND Family Medicine
DX: I11.0 Hypertensive heart disease with heart failure (principal); J96.22 Acute and chronic respiratory failure with hypercapnia; J96.21 Acute and chronic respiratory failure with hypoxia; Z68.42 Body mass index [BMI] 45.0-49.9, adult; I50.33 Acute on chronic diastolic (congestive) heart failure; Z99.81 Dependence on supplemental oxygen; J44.9 Chronic obstructive pulmonary disease, unspecified; E11.65 Type 2 diabetes mellitus with hyperglycemia; E66.01 Morbid (severe) obesity due to excess calories; H54.7 Unspecified visual loss; H40.9 Unspecified glaucoma; K21.9 Gastro-esophageal reflux disease without esophagitis; Z85.038 Personal history of other malignant neoplasm of large intestine; E78.2 Mixed hyperlipidemia; K76.0 Fatty (change of) liver, not elsewhere classified; I25.10 Atherosclerotic heart disease of native coronary artery without angina pectoris; Z88.2 Allergy status to sulfonamides
CPT/HCPCS: 36415; 71045; 80048; 80053; 80076; 80202; 81003; 82553; 82805; 82947; 83690; 83735; 83880; 84100; 84484; 85025; 85610; 86850; 86900; 86901; 87040; 87077; 87086; 87088; 87186; 87205; 87804; 93005; 94640; 94760; 96374; 96375; 99285; J1650; J1815; J1940; J2930; J7040

== ENCOUNTER 2019-08-20 14:26 | Inpatient (IN) | payer OTHER ==
[2019-08-20] MEDS ORDERED: ASPIRIN EC 81 MG TAB PO ONE (15:33)
[2019-08-20] MEDS ORDERED: ASPIRIN 81 MG CHEWABLE TABLET ONE (15:35)
--- NOTE | 2019-08-20 15:41 | RAD REPORT ---
EXAM DESCRIPTION: RAD - Chest Single View - 08/20/2019 3:31 pm CLINICAL HISTORY: CHEST PAIN Chest pain. COMPARISON: Chest Single View dated 05/19/2019; Chest Single View dated 02/19/2019; Chest Single View dated 01/12/2018; Chest Single View dated 06/15/2017 FINDINGS: Portable technique limits examination quality. Mild to moderate bilateral pulmonary opacities are present suggesting pulmonary edema. The heart is e nlarged in size. Prominent degenerative changes right shoulder. IMPRESSION: Mild to moderate CHF.
[2019-08-20 16:11] LABS: Absolute Lymphocytes (CBC) 1.1 K/uL (0.7-4.9); Basophils % 0.4 % (0-1.3); Hematocrit 27.6 % (36.0-45.0); Lymphocytes % 7.1 % (15.3-44.8); MPV 8.1 fL (7.6-11.3); RBC Red Blood Cell Count 3.41 M/uL (3.86-4.86)
[2019-08-20] MEDS ORDERED: IPRATROPIUM BROM 0.5MG/2.5ML ONE (16:11)
[2019-08-20] MEDS ORDERED: ALBUTEROL 2.5 MG/3 ML NEB SOL ONE ×2 (16:12→18:17)
[2019-08-20 16:47] LABS: Protime INR 1.23
[2019-08-20 16:49] LABS: ALT/SGPT 23 U/L (12-78); AST/SGOT 24 U/L (15-37); Alkaline Phosphatase 188 U/L (45-117); BUN Blood Urea Nitrogen 31 mg/dL (7-18); Bicarbonate 22 mmol/L (21-32); Bilirubin Direct 0.4 mg/dL (0-0.2); Bilirubin Total 0.8 mg/dL (0.2-1.0); Glucose Level 246 mg/dL (74-106); Magnesium 2.7 mg/dL (1.8-2.4); NT PRO-BNP 1802 pg/mL (<450); Sodium Level 138 mmol/L (136-145); Troponin (Emerg Dept Use Only) < 0.02 ng/mL (0.0-0.045)
[2019-08-20 16:51] LABS: Potassium 6.1 mmol/L (3.5-5.1)
--- OUTSIDE RECORDS SUMMARY | 2019-08-20 17:31 | XMS REPORT | Continuity of Care Document ---
:1940 Author Organization [facility] t Address [address] [place] [address] Care Team Providers Name Role Phone Unavailable Unavailable Unavailable Payers Payer Name Policy Type Policy Number Effective Date Expiration Date S ource Problems Condition Condition Condition Status Onset Resolution Last Treating Co mments Source Name Details Category Date Date Treatment Clinician Date Current Current Problem Active [facility] mild mild [facility] - episode of episode of Me moria major major l depressive depressive Ou tpati disorder, disorder, ent unspecifie unspecifie Cl inics d whether d whether recurrent recurrent 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 Clinics failure failure Glaucoma Glaucoma Problem Active [facility] of both of both [facility] - eyes, eyes, Memoria unspecifie unspecifie l d glaucoma d glaucoma Ou tpati type type ent Clinics Mixed Mixed Diagnosis Active [facility] hyperlipid hyperlipid Susu kes - emia emia Memoria l Outpati ent Clinics Type 2 Type [address] [facility] diabetes diabetes [facility] - mellitus mellitus Memori a without without l complicati complicati Ou tpati ons ons ent Clinics Essential Essential Diagnosis Active [facility] hypertensi hypertensi Susu kes - on on Memoria l Outpati ent Clinics Chronic Chronic Diagnosis Active [facility] bronchitis bronchitis Susu kes - , , Memoria unspecifie unspecifie l d chronic d chronic Outp ati bronchitis bronchitis en t type type Clinics Diabetic Diabetic Diagnosis Active [facility] autonomic autonomic Luke s - neuropathy neuropathy Me moria associated associated l with type with type Outp ati 2 diabetes 2 diabetes en t mellitus mellitus Clinic s custodial intermediate card tender Problem Active [facility] (current) (current) Luke s - use of use of Memoria insulin insulin l [facility] ent Clinics Gastroesop Gastroesop Problem Active [facility] hageal hageal Lukes - reflux reflux Memoria disease, disease, l esophagiti esophagiti Ou tpati s presence s presence en t not not Clinics specified specified 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 tribe [place] tribe [facility]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 Clinics without without angina angina pectoris pectoris Dysuria Dysuria Diagnosis Active [facility] - Memoria l [facility] ent Clinics On On Diagnosis Active [facility] supplement supplement Susu kes - al oxygen al oxygen Lance jeff by nasal by nasal l cannula cannula [facility] ent Clinics Bilateral Bilateral Diagnosis Active [facility] - extremity extremity Lance jeff edema edema l [facility] ent [facility] Allergies, Adverse Reactions, Alerts Allergy Allergy Status Severity Reaction(s) Onset Inactive Treating Comm ents Source Name Type Date Date Clinician Sulfa DA Active [facility] (Sulfona 7-25 [place] mide 00:00: d Antibiot 00 Medical ics) [facility] Medications Ordered Filled Start Stop Current Ordering Indication Dosage Frequency Signature Comments Components Source Medication Medication Date Date Medication? Clinician (SIG) Name Name Furosemide Furosemide Yes Na Cormier [address] [facility] - Memoria l [facility] ent Clinics Pantoprazol Pantoprazol Yes Na Cormier [address] [facility] e Sodium e Sodium [facility] - Memoria l [facility] ent [facility] Magnesium Magnesium Yes Na Cormier [address] [facility] with a [facility]ukes - meal Memoria l [facility] ent Clinics Combmisael Combmisael Yes Na Cormier [address] [facility] - affected Memoria eye l [facility] ent Clinics Amlodipine Amlodipine Yes Na Cormier [address] [facility] [address] Besylate Besylate kes - [facility] l [facility] ent Clinics Gabapentin Gabapentin Yes Na Cormier [address] [facility] - Memoria l [facility] ent [facility] Clopidogrel Clopidogrel Yes Na Cormier [address] [facility] [address] Bisulfate Bisulfate [facility] - [facility] Lummisael Lummisael Yes Na Cormier [address] [facility] into [facility] - affected Memoria eye in the l evening [facility] ent Clinics Valsartan Valsartan Yes Na Cormier [address] [facility] - [facility]oria l [facility] Potassium Potassium Yes Na Cormier [address] Chloride Chloride [facility] Clinics Trazodone Trazodone Yes Na Cormier [address] [facility] [address] HCl HCl at bedtime [facility] - as needed [facility] Metformin Metformin Yes Na Cormier [address] HCl HCl with a Lukes - meal [facility] ent [facility] Aspirin Aspirin Yes Na Cormier [address] [facility] l [facility] ent Clinics Levemir Levemir Yes Na Cormier as [facility] FlexTouch FlexTouch directed L [facility] ent Clinics BusPIRone BusPIRone Yes Na Cormier [address] HCl HCl [facility] Clinics Sertraline Sertraline Yes Na Cormier [address] HCl HCl [facility] NovoLog Mix NovoLog Mix Yes Na Cormier as [facility] 70/30 70/30 directed [facility] - Flexpen Flexpen [facility] ent Clinics Tramadol Tramadol Yes Na Cormier [address] [facility] [address] HCl HCl as needed [facility]ics Atorvastati Atorvastati Yes Na Cormier [address] [facility] n Calcium n Calcium [facility] ent [facility] Metoprolol Metoprolol Yes Na Cormier [address] Tartrate Tartrate with food Susu [facility] ent [facility] Nitroglycer Nitroglycer Yes Na Cormier as [facility] in in directed [facility] ent Clinics Procedures This patient has no known procedures. Encounters Start End Encounter Admission Attending Care Care Encounter Source Date/Time Date/Time Type Type Clinicians Facility Department ID 2019-08-07 2019-08-07 Outpatient Tereza Olvera [id number] [address] 09:40:00 09:40:00 [employer] [facility] 2019-07-24 2019-07-24 Outpatient Tereza Olvera [id number] 16:54:00 16:54:00 t [employer] [facility] 2019-07-17 2019-07-17 Outpatient Tereza Starkst [id number] 16:20:00 16:20:00 [address] [employer] [facility] 2019-07-13 2019-07-13 Outpatient Rosalindatrish Rosalindatrishsydni [id number] [facility] 09:00:00 09:00:00 t [employer] [facility] Results Test Description Test Time Test Comments Results Result Comments Source SURG 2018-10-19 16:34:00 RUN DATE: 10/19/18 [facility] - LAB *LIVE* PAGE 1 RUN TIME: 1634 Specimen Inquiry RUN USER: INTERFACE PATIENT: MEGHNA BIRD Dejan LOC: MAGGIE U #: [id number] AGE/SX: 77/F ROOM: FLAKITA RE10/12/18DIOGO DR: Alfredo Cantu MD : 41 BED: 1 DIS: 10/13/18 STATUS: DIS Marcela TLOC: SPEC #: [id number] RECD: 10/16/18 STATUS: GARDENIA LONGORIA #: [id number] JENNA: 10/13/[address]: Alfredo Cantu MD ENTERED: 10/16/18 SP TYPE: SURG OTHR DR: Thao Crooks MD, Nizam Mohammad MD [place], Frank E MDORDERED: AB/PAS MAUREEN, SURG PATH LVL 4, PATH STAIN GROU COPIES TO: Thao Crooks MD [address] [place] [address] [place] [address] [place] [address] [email or web address] Baldemar Simeon MD [address] [place], [place] [id number] Babar Wang MD [address] [address] HISTOLOGY: TISSUE ID BLK PCS ALFREDO LEV PROCEDURE DISPOSITION ____ ___ ___ ___ STOMACH, NOS A 1 1 AB/PAS MAUREEN STOMACH, NOS A 1 2 PATH STAIN GROU PROCEDURES: ALBLUE (10/16/18) PAS (10/16/18) SURG PATH LVL 4 (10/16/18) PATH STAIN GROU (10/16/18) TISSUES: A. STOMACH, NOS - GASTRIC POLYP ADENO MASS CONTINUED ON NEXT PAGE RUN DATE: 10/19/18 [facility] - LAB *LIVE* PAGE 2 RUN TIME: 1634 Specimen Inquiry RUN USER: INTERFACE SPEC #: [facility]:[id number] PATIENT: MEGHNA BIRD #[id number] (Continued)--------- --- CLINICAL HISTORY HX CA LG INTESTINE -Z85.038; DYSPEPSIA -K30; PAIN -R10.9 CPT CODES CPT CODE(S): 16733 , 52283 , 67959 , , , , FINAL DIAGNOSIS Stomach, polypectomy: CHRONIC GASTRITIS WITH INTESTINAL METAPLASIA NEGATIVE FOR DYSPLASIA OR MALIGNANCY NEGATIVE FOR HELICOBACTER PYLORI ORGANISMS GROSS DESCRIPTION Gastric polyp. Received in formalin are two mendiola tissue fragments, 0.2 cm each, all as A. ba/nr Grossing performed at [facility] Pathology, [facility], [address], [place] [address]. Solid Plasterer: Carlos Sargent M.D. MICROSCOPIC DESCRIPTION Gastric polyp. Sections demonstrate gastric mucosa with chronic inflammation. No dysplasia or malignancy is seen. Alcian blue-PAS confirms the presence of focal intestinal metaplasia. No dysplasia or malignancy is identified. The Diff Quik stain demonstrates no evidence of Helicobacter pylori organisms. -- Signed SIGNATURE ON FILE Nain Lott 10/19/18 1634 END OF REPORT GLUCOSE BEDSIDE TESTING 2018-10-13 16:38:00 Test Item Value Reference Range Interpretation Comme nts GLUCOSE BEDSIDE TESTING (test code = GLUBED) 174 mg/dL 70-110 H GLUCOSE BEDSIDE [id number] 15:01:00 Test Item Value Reference Range Interpretation Comments GLUCOSE BEDSIDE TESTING (test code 193 mg/dL 70-110 H = GLUBED) GLUCOSE BEDSIDE [id number] 12:01:00 Test Item Value Reference Range Interpretation Comments GLUCOSE BEDSIDE TESTING (test code 178 mg/dL 70-110 H = GLUBED) GLUCOSE BEDSIDE [id number] 07:56:00 Test Item Value Reference Range Interpretation Comments GLUCOSE BEDSIDE TESTING (test code 191 mg/dL 70-110 H = GLUBED) BASIC METABOLIC [id number] 03:36:00 Test Item Value Reference Range Interpretation Comments SODIUM (test code = NA) 140 mmol/L 134-147 N POTASSIUM (test code = 3.4 mmol/L 3.4-5.0 N K) CHLORIDE (test code = 106 mmol/L 100-108 N CL) CARBON DIOXIDE (test 27 mmol/L 21-32 N code = CO2) ANION GAP (test code = 7.0 GAP calc 4.0-15.0 N GAP) GLUCOSE (test code = 187 MG/DL 70-110 H GLU) BLOOD UREA NITROGEN 7 MG/DL 7-18 N (test code = BUN) GLOMERULAR FILTRATION >=60 max estimate >60 RATE (test code = GFR) estGFR CREATININE (test code = 0.6 MG/DL 0.6-1.0 N CREAT) CALCIUM (test code = CA) 8.5 MG/DL 8.5-10.1 N CBC W/AUTO [id number] 03:27:00 Test Item Value Reference Range Interpretation Comments WHITE BLOOD CELL (test code = 8.4 K/mm3 3.5-11.0 N WBC) RED BLOOD CELL (test code = RBC) 3.56 M/mm3 4.70-6.10 L HEMOGLOBIN (test code = HGB) 10.1 G/DL 10.4-14.9 L HEMATOCRIT (test code = HCT) 31.2 % 31.5-44.1 L MEAN CELL VOLUME (test code = 87.6 Fl 84.5-98.6 N MCV) MEAN CELL HGB (test code = MCH) 28.4 pg 27.0-34.2 N MEAN CELL HGB CONCETRATION (test 32.4 G/DL 31.5-34.0 N code = MCHC) RED CELL DISTRIBUTION WIDTH (test 16.3 SD 11.5-14.5 H code = RDW) PLATELET COUNT (test code = PLT) 275.0 K/mm3 150-450 N MEAN PLATELET VOLUME (test code = 10.00 fL 7.0-10.5 N MPV) NEUTROPHIL % (test code = NT%) 60.5 % 40-76 N LYMPHOCYTE % (test code = LY%) 21.6 % 20.5-51.1 N MONOCYTE % (test code = MO%) 15.8 % 1.7-9.3 H EOSINOPHIL % (test code = EO%) 1.7 % 0.0-6.0 N BASOPHIL % (test code = BA%) 0.4 % 0.0-2.0 N NEUTROPHIL # (test code = NT#) 5.06 K/mm3 1.8-7.6 N LYMPHOCYTE # (test code = LY#) 1.8 K/mm3 0.6-3.2 N MONOCYTE # (test code = MO#) 1.3 K/mm3 0.3-1.1 H EOSINOPHIL # (test code = EO#) 0.1 K/mm3 0.0-0.4 N BASOPHIL # (test code = BA#) 0.0 K/mm3 0.0-0.1 N MANUAL DIFF REQUIRED (test code = NO DIFF/SCN CRITERIA MDIFF) GLUCOSE BEDSIDE [id number] 21:07:00 Test Item Value Reference Range Interpretation Comments GLUCOSE BEDSIDE TESTING (test code 186 mg/dL 70-110 H = GLUBED) GLYCOSYLATED HEMOGLOBIN [id number] 17:49:00 Test Item Value Reference Range Interpretation Comments GLYCOSYLATED HEMOGLOBIN (HA1C) 8.2 % A1C 4.2-6.3 H (test code = GLYHGB) ESTIMATED AVERAGE GLUCOSE (test 189 MG/DLest code = EAG) COMPREHENSIVE METABOLIC [id number] 17:45:00 Test Item Value Reference Range Interpretation Comments SODIUM (test code = NA) 139 mmol/L 134-147 N POTASSIUM (test code = 3.3 mmol/L 3.4-5.0 L K) CHLORIDE (test code = 104 mmol/L 100-108 N CL) CARBON DIOXIDE (test 28 mmol/L 21-32 N code = CO2) ANION GAP (test code = 7.0 GAP calc 4.0-15.0 N GAP) GLUCOSE (test code = 146 MG/DL 70-110 H GLU) BLOOD UREA NITROGEN 10 MG/DL 7-18 N (test code = BUN) GLOMERULAR FILTRATION >=60 max estimate >60 RATE (test code = GFR) estGFR CREATININE (test code = 0.8 MG/DL 0.6-1.0 N CREAT) TOTAL PROTEIN (test code 7.3 G/DL 6.4-8.2 N = PROT) ALBUMIN (test code = 3.1 G/DL 3.4-5.0 L ALB) GLOBULIN (test code = 4.2 GM/dL GLOB) ALBUMIN/GLOBULIN RATIO 0.7 RATIO 1.2-2.2 L (test code = A/G) CALCIUM (test code = CA) 8.5 MG/DL 8.5-10.1 N BILIRUBIN TOTAL (test 0.60 MG/DL 0.2-1.2 N code = BILT) SGOT/AST (test code = 20 Unit/L 15-37 N AST) SGPT/ALT (test code = 18 Unit/L 12-78 N ALT) ALKALINE PHOSPHATASE 137 Unit/L 45-117 H TOTAL (test code = ALKP) LIPID PROFILE (CORONARY RISK)2018-10-12 17:45:00 Test Item Value Reference Range Interpretation Comments TRIGLYCERIDES (test code = TRIG) 153 MG/DL 0-150 H CHOLESTEROL (test code = CHOL) 104 MG/DL 133-200 L CHOLESTEROL/HDL RATIO (test code = 3.06 RATIO >0 CHOLHDL) HDL CHOLESTEROL (test code = HDL) 34 MG/DL 40-59 L NON-HDL CHOLESTEROL (test code = 70 mg/dL <130 NHDL) LIPOPROTEIN LDL (test code = LDL) 55 MG/DL 0-129 N LDL/HDL (test code = LDL/HDL) 1.61 Ratio 1.48-3.22 Avg N [id number] 17:45:00 Test Item Value Reference Range Interpretation Comments PHOSPHOROUS (test code = PHOS) 2.7 MG/DL 2.5-4.9 N RULE OUT IN [id number] 17:45:00 Test Item Value Reference Range Interpretation Comments CREATINE KINASE 175 Unit/L 26-192 N (CK) (test code = CK) TROPONIN-I (test < 0.015 NG/ML 0.000-0.045 N Negative: </= 0.045 code = TROPI) Positive: >/= 0.046 Correlation wit h serial results, other cardiac markers , and clinical findin gs is necessary to de termine the clinical significance of this result. Quantit ative results using different methodologies s hould not be compared to one another as nume rical results may timothy yby method. [id number] 17:45:00 Test Item Value Reference Range Interpretation Comments MAGNESIUM (test code = MAG) 2.0 MG/DL 1.8-2.4 N THROMBOPLASTIN TIME [id number] 17:37:00 Test Item Value Reference Range Interpretation Comments THROMBOPLASTIN TIME PARTIAL 30.9 SECONDS 26-35 N (test code = PTT) PROTHROMBIN [id number] 17:36:00 Test Item Value Reference Range Interpretation Comments PT PATIENT (test code = PTP) 13.3 SECONDS 9.3-12.9 H INTERNATIONAL NORMAL RATIO 1.15 INR Unit 0.8-1.2 N (test code = INR) CBC W/AUTO [id number] 17:34:00 Test Item Value Reference Range Interpretation Comments WHITE BLOOD CELL (test code = 9.0 K/mm3 3.5-11.0 N WBC) RED BLOOD CELL (test code = RBC) 3.98 M/mm3 4.70-6.10 L HEMOGLOBIN (test code = HGB) 11.2 G/DL 10.4-14.9 N HEMATOCRIT (test code = HCT) 34.6 % 31.5-44.1 N MEAN CELL VOLUME (test code = 86.9 Fl 84.5-98.6 N MCV) MEAN CELL HGB (test code = MCH) 28.1 pg 27.0-34.2 N MEAN CELL HGB CONCETRATION (test 32.4 G/DL 31.5-34.0 N code = MCHC) RED CELL DISTRIBUTION WIDTH (test 16.4 SD 11.5-14.5 H code = RDW) PLATELET COUNT (test code = PLT) 293.0 K/mm3 150-450 N MEAN PLATELET VOLUME (test code = 10.10 fL 7.0-10.5 N MPV) NEUTROPHIL % (test code = NT%) 64.1 % 40-76 N LYMPHOCYTE % (test code = LY%) 21.7 % 20.5-51.1 N MONOCYTE % (test code = MO%) 12.9 % 1.7-9.3 H EOSINOPHIL % (test code = EO%) 1.1 % 0.0-6.0 N BASOPHIL % (test code = BA%) 0.2 % 0.0-2.0 N NEUTROPHIL # (test code = NT#) 5.78 K/mm3 1.8-7.6 N LYMPHOCYTE # (test code = LY#) 2.0 K/mm3 0.6-3.2 N MONOCYTE # (test code = MO#) 1.2 K/mm3 0.3-1.1 H EOSINOPHIL # (test code = EO#) 0.1 K/mm3 0.0-0.4 N BASOPHIL # (test code = BA#) 0.0 K/mm3 0.0-0.1 N MANUAL DIFF REQUIRED (test code = NO DIFF/SCN CRITERIA MDIFF) - XR CHEST 1 [id number] 17:02:00 Name: MEGHNA BIRD [facility] : 1940 Age/S: 77 / F [id number] [address] [place] Unit #: [id number] Loc: [place] [address] Phys: Alfredo Cantu MD Acct: [id number] Dis Date: Status: ADM IN PHONE #: [phone] Exam Date: 10/12/2018 1640 FAX #: Reason: CAD EXAMS: CPT: [id number] XR CHEST 1 V 61984 Fluoro Time: DAP (Gy m2): Air Kerma [...] right pleural effusion and/or atelectasis. at 1702 Reported and signed by: Jorge Rosenberg M.D. CC: Alana Cantu MD; Baldemar Simeon MD; Babar Wang MD PAGE 1 Signed Report Name: MEGHNA BIRD : 1940 Age/S:77 / F [id number] [address] [place] Unit #: [id number] Loc: [place] [address] Phys: Alfredo Cantu MD Acct: [id number] Dis Date: Status: ADM IN PHONE #: [phone] Exam Date: 10/12/2018 1640 FAX #: Reason: CAD EXAMS: CPT: [id number] XR CHEST 1 V 22389 Fluoro Time: DAP (Gy m2): Air Kerma (mGy): <Continued> Technologist: Harsha Carr RT(R)(CT)(MRI) Trncab Date/Time: 10/12/2018 (1702) [email or web address] Orig Print D/T: S: 10/12/2018 (3327) PAGE 2 Signed Report GLUCOSE BEDSIDE [id number] 15:59:00 Test Item Value Reference Range Interpretation Comments GLUCOSE BEDSIDE TESTING (test code 114 mg/dL 70-110 H = GLUBED)
--- OUTSIDE RECORDS SUMMARY | 2019-08-20 17:31 | XMS REPORT ---
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 Problem Glaucoma of both eyes, unspecified H40.9 Active glaucoma type Problem Mixed hyperlipidemia E78.2 Active Problem Type 2 diabetes mellitus without E11.9 Active complications Problem Essential hypertension I10 Activ e Problem Chronic bronchitis, unspecified J42 Active chronic bronchitis type Problem 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
--- OUTSIDE RECORDS SUMMARY | 2019-08-20 17:31 | XMS REPORT ---
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 Problem 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, unspecified whether recurrent Problem Mixed hyperlipidemia E78.2 Active Problem Type 2 diabetes mellitus without E11.9 Active complications Problem Essential hypertension I10 Activ e Problem Gastroesophageal reflux disease, K21.9 Active esophagitis presence not specified Problem Chronic bronchitis, unspecified J42 Active chronic bronchitis type Problem Atherosclerotic heart disease of I25.10 Active [place] coronary artery without angina pectoris Problem alf (current) use of insulin Z79.4 Active Medications Medication Code System Code Instructions Start Date End Date Status Dosage Furosemide [facility] [id number] 40 MG Orally Once Active 1 tablet a day Results No Known Results Summary Purpose [employer]ClinicalWorks Submission
--- OUTSIDE RECORDS SUMMARY | 2019-08-20 17:31 | XMS REPORT ---
:1940 Author Organization eClinicalWorks Care Team Providers Name Role Phone Cormier, Addie Provider Role Unavailable Allergies, Adverse Reactions, Alerts Substance Reaction Event Type N.K.D.A. 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 Problem Mixed hyperlipidemia E78.2 Active Assessment 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, unspecified whether recurrent Problem Type 2 diabetes mellitus without E11.9 Active complications Assessment Glaucoma of both eyes, unspecified H40.9 Active glaucoma type Assessment Atherosclerotic heart disease of I25.10 Active [place] coronary artery without angina pectoris Problem Essential hypertension I10 Activ e Problem Gastroesophageal reflux disease, K21.9 Active esophagitis presence not specified Problem Chronic bronchitis, unspecified J42 Active chronic bronchitis type Problem Atherosclerotic heart disease of I25.10 Active [place] coronary artery without angina pectoris Problem intermediate card tender (current) use of insulin Z79.4 Active Assessment Gastroesophageal reflux disease, K21.9 Active esophagitis presence not specified Assessment skilled nursing (current) use of insulin Z79.4 Active Assessment On supplemental oxygen by nasal Z78.9 Active cannula Assessment Chronic bronchitis, unspecified J42 Active chronic bronchitis type Assessment Essential hypertension I10 Activ e Assessment Diabetic autonomic neuropathy E11.43 Active associated with type 2 diabetes mellitus Assessment 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 Assessment 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 implant and graft Assessment Mixed hyperlipidemia E78.2 Active Problem 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, unspecified whether recurrent Medications Medication Code Code Instructions Start End Status Dosage System Date Date Pantoprazole [facility] 06963346647 40 MG Orally Active 1 tablet Sodium Once a day Levemir ND 74870856927 100 UNIT/ML Active as FlexTouch Subcutaneous directed NovoLog Mix [facility] 06371473936 (70-30) 100 Active as 70/30 Flexpen UNIT/ML directed Subcutaneous Gabapentin [facility] 60900133142 600 MG Orally Active 1 t ablet three times a day Valsartan [facility] 54636415860 160 MG Orally Active 1 ta blet Once a day Furosemide ND 53250049780 40 MG Orally Active 1 ta blet Once a day Sertraline HCl [facility] 83560966387 50 MG Orally Active 1 tablet Once a day Clopidogrel ND 82483244951 75 MG Orally Active 1 t ablet Bisulfate Once a day Trazodone HCl [facility] 10914786127 50 MG Orally Active 1 tablet Once a day at bedtime as needed BusPIRone HCl [facility] 00180794548 10 MG Orally Active 1 tablet Twice a day Atorvastatin [facility] 46545817495 80 MG Orally Active 1 tablet Calcium Once a day Metoprolol [facility] 17749540163 50 MG Orally Active 1 ta blet Tartrate once a day with food Magnesium [facility] [address]-31 400 MG Orally Active 1 capsule Once a day with a meal Combigan [facility] 29056215275 0.2-0.5 % Active 1 drop Ophthalmic into Twice a day affected eye Nitroglycerin [facility] 30377487527 0.4 MG Active as Sublingual directed Potassium [facility] 73892428414 20 MEQ Orally Active 1 ca psule Chloride Twice a day Tramadol HCl [facility] 90288002370 50 MG Orally Active 1 tablet Once a day as needed Amlodipine [facility] 67763128453 10 MG Orally Active 1 ta blet Besylate Once a day Metformin HCl [facility] 50619406558 500 MG Orally Active 2 tablet twice a day with a meal Aspirin [facility] 09099148931 81 MG Orally Active 1 table t Once a day Lumigan [facility] 78233202021 0.01 % Active 1 drop Ophthalmic Once into a day affected eye in the evening Results No Known Results Summary Purpose eClinicalWorks Submission
--- OUTSIDE RECORDS SUMMARY | 2019-08-20 17:32 | XMS REPORT ---
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 Problem Essential hypertension I10 Activ e Problem Gastroesophageal reflux disease, K21.9 Active esophagitis presence not specified Problem Chronic bronchitis, unspecified J42 Active chronic bronchitis type Problem Atherosclerotic heart disease of I25.10 Active [place] coronary artery without angina pectoris Problem 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 Assessment Dysuria R30.0 Active Assessment Mixed hyperlipidemia E78.2 Active Assessment On supplemental oxygen by nasal Z78.9 Active cannula Assessment Chronic bronchitis, unspecified J42 Active chronic bronchitis type Assessment Essential hypertension I10 Activ e Assessment Bilateral lower extremity edema R60.0 Active Assessment 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 Assessment Diabetic autonomic neuropathy E11.43 Active associated with type 2 diabetes mellitus Problem 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, unspecified whether recurrent Medications Medication Code Code Instructions Start End Status Dosage System Date Date Pantoprazole ND 45757089673 40 MG Orally Active 1 tablet Sodium Once a day Magnesium [facility] [address]-79 400 MG Orally Active 1 capsule Once a day with a meal Combigan [facility] 57403227095 0.2-0.5 % Active 1 drop Ophthalmic into Twice a day affected eye Amlodipine ND 53153817485 5 MG Orally Active 1 tab let Besylate Once a day Furosemide ND 34040422858 40 MG Orally Active 1 ta blet Once a day Gabapentin [facility] 46310889192 800 MG Orally Active 1 t ablet three times a day Clopidogrel [facility] 25205919407 75 MG Orally Active 1 t ablet Bisulfate Once a day Lumigan [facility] 71882071694 0.01 % Active 1 drop Ophthalmic Once into a day affected eye in the evening Valsartan [facility] 04878389373 160 MG Orally Active 1 ta blet Once a day Potassium [facility] 32566726394 20 MEQ Orally Active 1 ca psule Chloride Twice a day Trazodone HCl [facility] 36621690567 50 MG Orally Active 1 tablet Once a day at bedtime as needed Metformin HCl [facility] 86966396039 500 MG Orally Active 2 tablet twice a day with a meal Aspirin [facility] 00059616123 81 MG Orally Active 1 table t Once a day Levemir [facility] 86291940243 100 UNIT/ML Active as FlexTouch Subcutaneous directed BusPIRone HCl [facility] 36263831667 10 MG Orally Active 1 tablet Twice a day Sertraline HCl [facility] 97429816982 50 MG Orally Active 1 tablet Once a day NovoLog Mix [facility] 76927208448 (70-30) 100 Active as 70/30 Flexpen UNIT/ML directed Subcutaneous Tramadol HCl [facility] 74346856471 50 MG Orally Active 1 tablet Once a day as needed Atorvastatin [facility] 93558049156 80 MG Orally Active 1 tablet Calcium Once a day Metoprolol [facility] 77949898137 100 MG Orally Active 1 t ablet Tartrate Twice a day with food Nitroglycerin [facility] 52905120355 0.4 MG Active as Sublingual directed Results No Known Results Summary Purpose eClinicalWorks Submission
[2019-08-20] MEDS ORDERED: FUROSEMIDE 40 MG/4 ML VIAL ONE (18:17)
[2019-08-20] MEDS ORDERED: INSULIN -REGULAR HUMAN 50 UNIT/0.5 ML ML ONE (18:18)
[2019-08-20] MEDS ORDERED: SOD POLYSTYREN SUL 15 GM/60 ML UCUP ONE (18:19)
[2019-08-20] MEDS ORDERED: ONDANSETRON 4 MG/2 ML VIAL IV PRN (19:37)
--- NOTE | 2019-08-20 20:21 | ER ---
Nurse's Notes [facility] Name: Gloria Longoria Age: 78 yrs Sex: Female : 1940 Arrival Date: 08/20/2019 Time: 14:31 Bed 17 Private MD: Diagnosis: Hyperkalemia;Unspecified combined systolic (congestive) and diastolic (congestive) heart failure Presentation: 08/19 14:33 Chief complaint: Patient states: SOB for 1 week, wears O2 2L NC at home. No known ll1 fever. Chest pain started today, took 1 nitro at home then called EMS. EMS states: Gave 2 nitro's en route. O2 4L NC en route. Coronavirus screen: Patient reports a cough. Patient reports shortness of breath or difficulty breathing. Patient denies measured and/or subjective temperature greater than 100.4F prior to today's visit. Patient denies travel on a cruise ship or to a country the [facility] currently lists as an affected area. Patient denies contact with known and/or suspected case of COVID-19. Ebola Screen: Patient denies travel to an Ebola-affected area in the 21 days before illness onset. Initial Sepsis Screen: Does the patient meet any 2 criteria? No. Patient's initial sepsis screen is negative. Does the patient have a suspected source of infection? Yes: Productive cough/pneumonia. Risk Assessment: Do you want to hurt yourself or someone else? Patient reports no desire to harm self or others. Onset of symptoms was August 12, 2019. 14:33 Method Of Arrival: EMS ll1 14:33 Acuity: MALAIKA 3 ll1 Historical: - Allergies: 14:38 Sulfa (Sulfonamide Antibiotics); ll1 - PMHx: 14:38 Pneumonia; Diabetes - IDDM; colon cancer; CHF; ADD/ADHD; Hypertension; ll1 - Immunization history:: Adult Immunizations up to date. - Social history:: Patient/guardian denies using street drugs. Screenin:15 Abuse screen: Denies threats or abuse. Nutritional screening: No deficits noted. Tuberculosis screening: No symptoms or risk factors identified. Fall Risk None identified. Assessment: 15:00 General: Appears in no apparent distress. Behavior is cooperative. Pain: Denies pain. Neuro: Level of Consciousness is awake, alert, Oriented to person, place, time. Cardiovascular: Denies chest pain, Heart tones S1 S2 present Capillary refill < 3 seconds Rhythm is sinus rhythm. Respiratory: Reports shortness of breath at rest Airway is patent Respiratory effort is even, labored, Respiratory pattern is regular, symmetrical, Breath sounds with wheezes bilaterally. the patient has moderate shortness of breath Denies cough. GI: Bowel sounds present X 4 quads. : No signs and/or symptoms were reported regarding the genitourinary system. Derm: Skin is intact, is healthy with good turgor. 16:00 Reassessment: Patient and/or family updated on plan of care and expected duration. Pain ah level reassessed. 16:20 Reassessment: Breathing treatment given at this time. No other needs voiced at this ah time. 17:20 Reassessment: Pt tolerated neb treatment well. Pt with resp even and unlabored at this ah time on O2 via NC. No needs vocied. 18:25 Reassessment: Patient and/or family updated on plan of care and expected duration. Pain ah level reassessed. Medications given as ordered. Pt tolerated well. No other needs voiced at this time. Resp even and unlabored on 2.5LPM via NC. 19:30 Reassessment: Patient and/or family updated on plan of care and expected duration. Pain ah level reassessed. No needs voiced. 20:30 Reassessment: No BM noted at this time. Pt with no needs voiced. 21:00 Reassessment: Pt eating sandwich at this time. No other needs voiced at this time. 21:55 Reassessment: Report called to TEAGAN Daniel. Vital Signs: 14:33 BP 145 / 53; Pulse 73; Resp 20; Temp 99.5; Pulse Ox 94% 4 lpm ; Pain 7/10; ll1 17:00 BP 125 / 62; Pulse 73; Resp 21; Pulse Ox 90% 3 lpm ; ah 17:45 BP 145 / 68; Pulse 70; Resp 20; Pulse Ox 93% 3 lpm ; ah 18:30 BP 141 / 70; Pulse 71; Resp 18; Pulse Ox 95% 2.5 lpm ; ah 19:15 BP 153 / 69; Pulse 73; Resp 18; Pulse Ox 95% 3 lpm ; ah 20:00 BP 134 / 66; Pulse 73; Resp 16; Pulse Ox 96% 3 lpm ; ah 21:25 BP 157 / 75; Pulse 76; Resp 20; Pulse Ox 92% on 2.5 lpm NC; ED Course: 14:31 Patient arrived in ED. ll1 14:36 Triage completed. ll1 14:39 Arm band placed on Patient placed in an exam room, on a stretcher. ll1 14:49 Magaly Murphy, RN is Primary Nurse. 14:57 Harris Ramsey PA is PHCP. cp 14:57 Harris Black MD is Attending Physician. cp 15:32 XRAY Chest (1 view) In Process Unspecified. EDMS 16:51 Notified Nurse Practitioner and/or Physician Traffic Administrator of a critical lab result(s), ss Potassium 6.1, reported to Pepe PEGUERO. 18:24 Rosas Singleton DO is Hospitalizing Provider. cp 22:16 Patient has correct armband on for positive identification. youth nutritional monitor on. Pulse ah ox on. NIBP on. 22:16 No provider procedures requiring assistance completed. Maintain EMS IV. Dressing ah intact. Good blood return noted. Site clean \T\ dry. Gauge \T\ site: 20g LFA. Patient admitted, IV remains in place. Administered Medications: 15:59 Drug: Aspirin Chewable Tablet 324 mg Route: PO; ah 19:46 Follow up: Response: No adverse reaction ah 16:20 Drug: Albuterol 2.5 mg Route: Inhalation; ah 16:20 Drug: AtroVENT Aerosol 0.5 mg Route: Inhalation; ah 18:25 Drug: Lasix 40 mg Route: IVP; Site: left femoral; ah 21:36 Follow up: Response: No adverse reaction ah 18:27 Drug: Insulin Regular Human 5 units {Co-Signature: vc (Princess Biggs RN).} Route: ah IVP; Site: left forearm; 21:16 Follow up: Response: No adverse reaction ah 18:27 Drug: Albuterol 2.5 mg Route: Inhalation; ah 19:01 Drug: Albuterol 2.5 mg Route: Inhalation; ah 19:30 Drug: Kayexalate 30 grams Route: PO; ah 21:36 Follow up: Response: No adverse reaction 19:30 Drug: Albuterol 2.5 mg Route: Inhalation; Outcome: 18:25 Decision to Hospitalize by Provider. cp 22:16 Admitted to Med/surg accompanied by tech, via stretcher, room 404, with chart, Report called to TEAGAN Daniel 22:16 Condition: stable 22:16 Instructed on the need for admit. 22:39 Patient left the ED. mg2 Signatures: Dispatcher [employer] EDMS Nayla Song RN RN Harris Ramsey PA PA cp Franck Bettencourt RN RN mg2 Magaly Murphy RN RN ah Lewis, Lynsay, RN RN ll1 Princess Biggs RN
--- NOTE | 2019-08-20 20:21 | EDPHYS ---
Physician Documentation [facility] Name: Gloria Longoria Age: 78 yrs Sex: Female : 1940 Arrival Date: 08/20/2019 Time: 14:31 Bed 17 Private MD: ED Physician Harris Black HPI: 08/19 15:20 This 78 yrs old Black Female presents to ER via EMS with complaints of Shortness Of cp Breath. 15:20 The patient has shortness of breath at rest. cp Historical: - Allergies: 14:38 Sulfa (Sulfonamide Antibiotics); ll1 - PMHx: 14:38 Pneumonia; Diabetes - IDDM; colon cancer; CHF; ADD/ADHD; Hypertension; ll1 - Immunization history:: Adult Immunizations up to date. - Social history:: Patient/guardian denies using street drugs. ROS: 15:25 Constitutional: Negative for body aches, chills, fever, poor PO intake. cp 15:25 Eyes: Negative for injury, pain, redness, and discharge. cp Exam: 15:26 ECG was reviewed by the Attending Physician. cp 15:30 Constitutional: The patient appears in no acute distress, alert, awake, cp non-diaphoretic, non-toxic, well developed, well nourished, obese. 15:30 Head/Face: Normocephalic, atraumatic. cp 15:30 Eyes: Periorbital structures: appear normal. 15:30 ENT: External ear(s): are unremarkable, Ear canal(s): are normal, clear, TM's: bulging, is not appreciated, bilaterally, dullness, bilaterally, erythema, is not appreciated, bilaterally, Nose: is normal, Mouth: Lips: moist, Oral mucosa: pink and intact, moist, Posterior pharynx: Airway: no evidence of obstruction, patent, Tonsils: no enlargement, no exudate, swelling, is not appreciated, erythema, is not appreciated, exudate, is not appreciated. 15:30 Neck: ROM/movement: is normal, is supple, without pain, no range of motions limitations. 15:30 Chest/axilla: Inspection: normal, Palpation: is normal, no crepitus, no tenderness. 15:30 Cardiovascular: Rate: normal, Rhythm: regular, Edema: ankle edema, that is mild, JVD: is not appreciated. 15:30 Respiratory: mild respiratory distress is noted, Respirations: labored breathing, that is mild, intercostal retractions, are absent, Breath sounds: stridor, is not appreciated, wheezing: is not appreciated. 15:30 Abdomen/GI: Inspection: obese Palpation: abdomen is soft and non-tender, in all quadrants, rebound tenderness, is not appreciated, voluntary guarding, is not appreciated, involuntary guarding, is not appreciated. 15:30 Back: pain, is absent. 15:30 Skin: no rash present. 15:30 Neuro: Orientation: to person, place \T\ time. Mentation: is normal. Vital Signs: 14:33 BP 145 / 53; Pulse 73; Resp 20; Temp 99.5; Pulse Ox 94% 4 lpm ; Pain 7/10; ll1 17:00 BP 125 / 62; Pulse 73; Resp 21; Pulse Ox 90% 3 lpm ; ah 17:45 BP 145 / 68; Pulse 70; Resp 20; Pulse Ox 93% 3 lpm ; ah 18:30 BP 141 / 70; Pulse 71; Resp 18; Pulse Ox 95% 2.5 lpm ; ah 19:15 BP 153 / 69; Pulse 73; Resp 18; Pulse Ox 95% 3 lpm ; ah 20:00 BP 134 / 66; Pulse 73; Resp 16; Pulse Ox 96% 3 lpm ; ah 21:25 BP 157 / 75; Pulse 76; Resp 20; Pulse Ox 92% on 2.5 lpm NC; ah MDM: 14:58 Patient medically screened. [facility] 18:35 Data reviewed: vital signs, nurses notes, lab test result(s), EKG, radiologic studies, cp plain films. 18:35 Antibiotic administration: Not indicated, the patient does not have an appreciated cp infiltrate. Test interpretation: by ED physician or midlevel provider: ECG. Physician consultation: Rosas Singleton DO was called at 18:30, was contacted at 18:30, regarding admission, to the telemetry unit. patient's condition. 08/19 14:58 Order name: Basic Metabolic Panel; Complete Time: 17:53 cp 08/19 17:53 Interpretation: Abnormal: K 6.1; CL 112; GLUC 246; BUN 31; CRE 1.41; GFR 44. cp 08/19 14:58 Order name: CBC with Diff cp 08/19 16:51 Interpretation: Normal except: WBC 15.2; RBC 3.41; HGB 8.1; HCT 27.6; MCV 80.9; MCH cp 23.7; MCHC 29.3; RDW 20.7; ALBERTINA% 79.9; LYM% 7.1; NEUT A 12.1; MNA 1.7. 08/19 14:58 Order name: LFT's; Complete Time: 17:53 cp / 17:53 Interpretation: Normal except: ALK 188; BILID 0.4; ALB 3.0; GLOB 5.0; A/G 0.6. cp 08/19 14:58 Order name: Magnesium; Complete Time: 17:53 cp 08/19 17:53 Interpretation: Abnormal: MG 2.7. cp 08/19 14:58 Order name: NT PRO-BNP; Complete Time: 17:53 cp 08/19 17:53 Interpretation: Abnormal: NT PRO-BNP 1802. cp 08/19 14:58 Order name: PT-INR; Complete Time: 17:53 cp 08/19 14:58 Order name: Troponin (emerg Dept Use Only); Complete Time: 17:53 cp / 15:06 Order name: Influenza Screen (a \T\ B); Complete Time: 16:51 cp 08/19 15:06 Order name: Strep; Complete Time: 16:51 cp 08/19 16:18 Order name: CBC Smear Scan EDAZ 08/19 16:38 Order name: Throat Culture EDAZ 08/19 18:15 Order name: Glucose, Ancillary Testing EDAZ 08/19 19:41 Order name: Basic Metabolic Panel EDAZ 08/19 19:41 Order name: Comprehensive Metabolic Panel EDAZ 08/19 14:58 Order name: XRAY Chest (1 view) 08/19 19:41 Order name: Comprehensive Metabolic Panel EDAZ 08/19 19:41 Order name: Creatine Phosphokinase EDAZ 08/19 19:41 Order name: Creatine Phosphokinase EDAZ 08/19 19:41 Order name: Lipid Profile EDAZ 08/19 19:41 Order name: Lipid Profile EDAZ 08/19 19:41 Order name: Magnesium EDAZ 08/19 19:41 Order name: Magnesium EDAZ 08/19 19:41 Order name: NT PRO-BNP EDAZ 08/19 19:41 Order name: NT PRO-BNP EDAZ 08/19 19:41 Order name: Phosphorus EDAZ 08/19 19:41 Order name: Phosphorus EDAZ 08/19 19:41 Order name: Troponin I EDAZ 08/19 19:41 Order name: Troponin I EDAZ 08/19 19:43 Order name: Echo with Doppler EDAZ 08/19 14:58 Order name: EKG; Complete Time: 14:59 cp 08/19 14:58 Order name: Cardiac monitoring; Complete Time: 22:06 cp 08/19 14:58 Order name: EKG - Nurse/Tech; Complete Time: 22:06 cp 08/19 14:58 Order name: IV Saline Lock; Complete Time: 22:06 cp 08/19 14:58 Order name: Labs collected and sent; Complete Time: 22:06 cp 08/19 14:58 Order name: O2 Per Protocol; Complete Time: 22:06 cp 08/19 14:58 Order name: O2 Sat Monitoring; Complete Time: 22:06 cp 08/19 15:29 Order name: Accucheck Blood Glucose; Complete Time: 19:46 cp 08/19 18:14 Order name: Diet Renal; Complete Time: 18:14 08/19 19:43 Order name: CONS Physician Consult EDAZ 08/19 19:43 Order name: EKG Electrocardiogram EDAZ 08/19 19:43 Order name: EKG Electrocardiogram EDAZ EC:26 Rate is 70 beats/min. Rhythm is regular. MA interval is prolonged at 220 msec. QRS cp interval is normal. QT interval is normal. T waves are Flattened in lead aVL. Interpreted by me. Reviewed by me. Administered Medications: 15:59 Drug: Aspirin Chewable Tablet 324 mg Route: PO; ah 19:46 Follow up: Response: No adverse reaction 16:20 Drug: Albuterol 2.5 mg Route: Inhalation; ah 16:20 Drug: AtroVENT Aerosol 0.5 mg Route: Inhalation; ah 18:25 Drug: Lasix 40 mg Route: IVP; Site: left femoral; ah 21:36 Follow up: Response: No adverse reaction 18:27 Drug: Insulin Regular Human 5 units {Co-Signature: vc (Princess Biggs RN).} Route: ah IVP; Site: left forearm; 21:16 Follow up: Response: No adverse reaction 18:27 Drug: Albuterol 2.5 mg Route: Inhalation; 19:01 Drug: Albuterol 2.5 mg Route: Inhalation; 19:30 Drug: Kayexalate 30 grams Route: PO; 21:36 Follow up: Response: No adverse reaction 19:30 Drug: Albuterol 2.5 mg Route: Inhalation; Disposition: 08/20 12:55 Co-signature as Attending Physician, Harris Black MD I agree with the assessment and [facility] plan of care. Disposition: 08/20/19 18:25 Hospitalization ordered by Rosas Singleton for Observation. Preliminary diagnosis are Hyperkalemia, Unspecified combined systolic (congestive) and diastolic (congestive) heart failure. - Bed requested for Telemetry/MedSurg (observation). - Status is Observation. mg2 - Condition is Stable. - Problem is an acute exacerbation. - Symptoms have improved. Signatures: Dispatcher [employer] EDMS Harris Black MD MD cha Page, Corey, PA PA cp Thompson, Rosana nm Franck Bettencourt RN RN mg2 Magaly Murphy RN RN Colten Aleman RN RN [facility] Princess Biggs RN Corrections: (The following items were deleted from the chart) 08/19 20:27 18:25 Hospitalization Ordered by Rosas Singleton DO for Observation. Preliminary mt diagnosis is Hyperkalemia; Unspecified combined systolic (congestive) and diastolic (congestive) heart failure. Bed requested for Telemetry/MedSurg (observation). Status is Observation. Condition is Stable. Problem is an acute exacerbation. Symptoms have improved. cp 22:39 20:27 08/20/2019 18:25 Hospitalization Ordered by Rosas Singleton DO for Observation. mg2 Preliminary diagnosis is Hyperkalemia; Unspecified combined systolic (congestive) and diastolic (congestive) heart failure. Bed requested for Telemetry/MedSurg (observation). Status is Observation. Condition is Stable. Problem is an acute exacerbation. Symptoms have improved. mt
[2019-08-20 20:37] LABS: Blood Morphology Comment NOTED (NOT SEEN); Platelet Estimate ADEQ; Poikilocytosis 2+; Urine White Blood Cell Casts OK
[2019-08-21 00:47] LABS: Potassium 6.2 mmol/L (3.5-5.1)
[2019-08-21] MEDS: FUROSEMIDE 40 MG/4 ML VIAL IV SCH ×3 (01:13→16:26)
[2019-08-21] MEDS ORDERED: GLUCAGON 1 MG/VIAL IM PRN ×2 (04:52→07:53)
[2019-08-21] MEDS ORDERED: D50W 25 GM/50 ML SYRINGE/VIAL IV ONE (04:52)
[2019-08-21] MEDS ORDERED: D50W 25 GM/50 ML SYRINGE/VIAL IV PRN ×2 (04:52→07:53)
[2019-08-21] MEDS ORDERED: FUROSEMIDE 40 MG/4 ML VIAL IV ONE (04:52)
[2019-08-21] MEDS ORDERED: INSULIN -REGULAR HUMAN 50 UNIT/0.5 ML ML IV ONE (04:53)
[2019-08-21] MEDS ORDERED: SODIUM BICARB 50 MEQ/50ML VIAL ONE (05:39)
[2019-08-21 06:48] LABS: Absolute Lymphocytes (CBC) 0.8 K/uL (0.7-4.9); Basophils % 0.5 % (0-1.3); Hematocrit 24.1 % (36.0-45.0); Lymphocytes % 8.5 % (15.3-44.8); MPV 8.1 fL (7.6-11.3); RBC Red Blood Cell Count 3.01 M/uL (3.86-4.86)
[2019-08-21 06:49] LABS: Urine Appearance CLOUDY; Urine Bilirubin NEGATIVE (NEG); Urine Blood TRACE (NEG); Urine Color YELLOW; Urine Glucose TRACE (NEG); Urine Protein NEGATIVE (NEG); Urine pH 6.5 (5.0-7.0)
[2019-08-21 07:06] LABS: Urine Microscopic Reflex ORDER UMIC
[2019-08-21 07:07] LABS: Urine Bacteria >50 /HPF (<20); Urine Culture Reflex Order REFLEXED
[2019-08-21 07:09] LABS: ALT/SGPT 19 U/L (12-78); AST/SGOT 15 U/L (15-37); Albumin 2.7 g/dL (3.4-5.0); Alkaline Phosphatase 171 U/L (45-117); BUN Blood Urea Nitrogen 30 mg/dL (7-18); Bicarbonate 28 mmol/L (21-32); Bilirubin Total 0.7 mg/dL (0.2-1.0); Creatine Phosphokinase 64 U/L (26-192); Glucose Level 353 mg/dL (74-106); HDL Cholesterol 27 mg/dL (40-60); LDL Cholesterol, Calculated 26 (<130); Magnesium 2.4 mg/dL (1.8-2.4); NT PRO-BNP 1786 pg/mL (<450); Phosphorus 3.8 mg/dL (2.5-4.9); Potassium 5.1 mmol/L (3.5-5.1); Protein, Total 7.4 g/dL (6.4-8.2); Sodium Level 141 mmol/L (136-145); Troponin I < 0.02 ng/mL (0.0-0.045)
[2019-08-21] MEDS: ENOXAPARIN 40 MG/0.4 ML SQ SCH (08:23)
[2019-08-21] MEDS: INSULIN -REGULAR HUMAN 50 UNIT/0.5 ML ML SQ SCH ×4 (08:24→20:21)
[2019-08-21] MEDS: ACETAMINOPHEN 500 MG TAB PO PRN ×2 (08:31→20:24)
[2019-08-21] MEDS ORDERED: TRAMADOL HCL 50 MG TAB PO PRN (08:50)
[2019-08-21] MEDS ORDERED: HOME MED 1 EA UNK (Bimatoprost [Lumigan Opthalmic Drops*] 1 DROP) EACH EYE SCH (09:00)
[2019-08-21] MEDS ORDERED: POTASSIUM CL SA 10 MEQ TAB PO SCH (09:00)
[2019-08-21] MEDS: ALBUTEROL 2.5 MG/3 ML NEB SOL NEB SCH ×3 (09:14→19:48)
[2019-08-21] MEDS: IPRATROPIUM BROM 0.5MG/2.5ML NEB SCH ×3 (09:14→19:48)
[2019-08-21] MEDS: METOPROLOL TAR 50 MG TAB PO SCH ×2 (09:42→20:21)
[2019-08-21] MEDS: BUSPIRONE HCL 5 MG TABLET PO SCH ×2 (09:42→20:21)
[2019-08-21] MEDS: GABAPENTIN 400 MG CAP PO SCH ×3 (09:42→20:20)
[2019-08-21] MEDS: CLOPIDOGREL 75 MG TABLET PO SCH (09:42)
[2019-08-21] MEDS: PANTOPRAZOLE 40MG TABLET PO SCH (09:42)
[2019-08-21] MEDS: METHYLPREDNISOLONE 40 MG INJ IV SCH ×2 (09:42→16:27)
[2019-08-21] MEDS: ASPIRIN 81 MG CHEWABLE TABLET PO SCH (09:42)
[2019-08-21] MEDS: SERTRALINE HCL 50 MG TAB PO SCH (09:42)
[2019-08-21 11:09] LABS: Absolute Lymphocytes (CBC) 1.1 K/uL (0.7-4.9); Basophils % 0.4 % (0-1.3); Hematocrit 24.7 % (36.0-45.0); Lymphocytes % 8.6 % (15.3-44.8); MPV 8.1 fL (7.6-11.3); RBC Red Blood Cell Count 3.08 M/uL (3.86-4.86)
--- NOTE | 2019-08-21 14:51 | RAD REPORT ---
EXAM DESCRIPTION: US - Renal Ultrasound-Complete - 08/21/2019 11:49 am CLINICAL HISTORY: LONG/CHF Flank pain COMPARISON: No comparisons FINDINGS: Body habitus limits quality of the study. Both kidneys are normal in size, shape and echot exture. The right kidney measures 11.1 x 5.4 x 4.9 cm. No hydronephrosis, focal mass or perinephric fluid. The left kidney measures 11.4 x 5.6 x 3.5 cm. No hydronephrosis, focal mass or perinephric fluid. The urinary bladder is incompletely distended without gross abnormality seen. IMPRESSION: Unremarkable renal sonogram.
[2019-08-21] MEDS ORDERED: INSULN ASP SQ SCH (17:00)
[2019-08-21] MEDS ORDERED: INSULIN ASPART PROT SQ SCH (17:00)
[2019-08-21] MEDS: HUMALOG MIX 75/25 100 UNITS/ML SQ SCH (17:28)
[2019-08-21] MEDS: ENSURE HIGH PROTEIN 237 ML CAN PO SCH (17:31)
--- NOTE | 2019-08-21 18:58 | P.HP ---
Certification for Inpatient Patient admitted to: Inpatient With expected LOS: >2 Midnights Patient will require the following post-hospital care: None Practitioner: I am a practitioner with admitting privileges, knowledge of patient current condition, hospital course, and medical plan of care. Services: Services provided to patient in accordance with Admission requirements found in Title 42 Section 412.3 of the Code of Federal Regulations Patient History Date of Service: 08/20/19 Reason for admission: Shortness of breath/acute renal insufficiency History of Present Illness: Patient is a 78-year-old female who came the hospital with difficulty breathing. Patient has also had some lower extremity edema. Patient has history of COPD and she would get nebulizer and adult home oxygen. She came into the emergency room for further evaluation. In the emergency room she was started on nebs, steroids, and given diuresing. Chest x-ray revealed pulmonary edema. She will be admitted to the hospital for further evaluation. Allergies Sulfa (Sulfonamide Antibiotics) Allergy (Intermediate, Verified 05/19/19 19:37) Shortness of breath Home Medications: Aspirin 81 mg PO DAILY 05/19/19 Atorvastatin Calcium [Lipitor] 80 mg PO BEDTIME 05/19/19 Buspirone HCl [Buspar] 10 mg PO BID 05/19/19 Furosemide 40 mg PO DAILY 05/19/19 Gabapentin 800 mg PO TID 05/19/19 Insulin Aspart Prot/Insuln Asp [Novolog Mix 70-30 Flexpen] 50 units SQ DAILY AT SUPPER 05/19/19 Insulin Aspart Protam & Aspart [Novolog Mix 70-30 Vial] 80 units SQ BREAKFAST 05/19/19 Insulin Detemir [Levemir] 66 units SQ BEDTIME 05/19/19 Metformin HCl [Glucophage Xr] 500 mg PO BID 05/19/19 Nitroglycerin [Nitrostat*] 0.4 mg PO PRN PRN MDD 3 tab 05/19/19 Pantoprazole [Protonix Tab*] 40 mg PO DAILY 05/19/19 Potassium Chloride 20 meq PO BID 05/19/19 Sertraline HCl 50 mg PO DAILY 05/19/19 Tramadol HCl [Ultram] 50 mg PO TID PRN 05/19/19 Trazodone [Desyrel*] 50 mg PO BEDTIME 05/19/19 Brimonidine Tartrate/Timolol [Combigan 0.2%-0.5% Eye Drops] 5 drop LEFT EYE BEDTIME 05/22/19 Clopidogrel Bisulfate [Plavix*] 75 mg PO DAILY tablet 05/22/19 Fluticasone/Salmeterol [Advair 250-50 Diskus] 1 each IH Q12HR #60 blst.w.dev 05/22/19 Metoprolol Tartrate [Lopressor*] 50 mg PO BID #60 tab 05/22/19 Valsartan [Diovan*] 160 mg PO DAILY #30 tab 05/22/19 Amlodipine [Norvasc*] 5 mg PO DAILY 08/21/19 Bimatoprost [Lumigan Opthalmic Drops*] 1 drop EACH EYE BID 08/21/19 - Past Medical/Surgical History Has patient received pneumonia vaccine in the past: Yes Diabetic: Yes -: Glaucoma -: CHF, diastolic dysfunction -: HTN -: GERD -: DM Neuropathy -: History of Colon CA -: Diabetes mellitus type 2 -: Fatty liver with Morbid Obesity -: Heart Attack -: Cholecystectomy -: Colon resection -: Appendectomy -: Hysterectomy -: Right Rotator Cuff Repair -: Colectomy Psychosocial/ Personal History: She lives at home. Her daughter helps her at home. - Family History Mother Medical History: Cancer Notes: colon Brother Medical History: Hypertension Sister Medical History: Heart disease, Hypertension, Lung disease, Cancer - Social History Smoking Status: Never smoker Alcohol use: No CD- Drugs: No Caffeine use: Yes Place of Residence: Home Review of Systems 10-point ROS is otherwise unremarkable Physical Examination - Vital Signs Temperature: 98.0 F Blood Pressure: 139/62 Pulse: 81 Respirations: 20 Pulse Ox (%): 97 - Physical Exam General: Alert, In no apparent distress, Oriented x3 HEENT: Atraumatic, PERRLA, Mucous membr. moist/pink, EOMI, Sclerae nonicteric Neck: Supple, 2+ carotid pulse no bruit, No LAD, Without JVD or thyroid abnormality Respiratory: Diminished, Crackles/rales Cardiovascular: Regular rate/rhythm, Normal S1 S2, Systolic murmur Gastrointestinal: Normal bowel sounds, Soft and benign, Non-distended, No t enderness Musculoskeletal: No clubbing, Swelling, Warmth Integumentary: No rashes Neurological: Normal gait, Normal speech, Normal strength at 5/5 x4 extr, Normal tone, Sensation intact, Cranial nerves 3-12 intact, Normal affect Lymphatics: No axilla or inguinal lymphadenopathy - Studies Microbiology Data (last 24 hrs): 08/20/19 15:43 Nasopharnyx Influenza Type A Antigen Screen - Final 08/20/19 15:43 Nasopharnyx Influenza Type B Antigen Screen - Final 08/20/19 15:43 Throat Group A Streptococcus Rapid Screen - Final Assessment & Plan - Problems (Diagnosis) (1) Acute exacerbation of COPD with asthma Current Visit: Yes Status: Acute (2) Acute on chronic diastolic (congestive) heart failure Onset Date: 02/18/17 Current Visit: No Status: Acute (3) Acute respiratory failure with hypoxia Onset Date: 11/21/15 Current Visit: No Status: Acute (4) Diabetes mellitus Onset Date: 06/13/17 Current Visit: No Status: Chronic Qualifiers: Diabetes mellitus type: type 2 Diabetes mellitus 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 Echocardiogram 2. Continue with nebs, steroids, and antibiotics 3. Continue with Beta josy 4. Cardiology consultation 5. Aggressive diuresis 6. Strict I's and O's 7. Repeat CXR 8. Daily weights 9. Physical therapy evaluation 10. Education regarding diet and treatment of congestive heart failure Discharge Plan: Home Plan to discharge in: Greater than 2 days - Advance Directives Does patient have a Living Will: No Does patient have a Durable POA for Healthcare: No - Code Status/Comfort Care Code Status Assessed: Yes Code Status: Full Code Critical Care: No Time Spent Managing PTS Care (In Minutes): 40
--- NOTE | 2019-08-21 19:25 | EKG ---
Test Date: 2019-08-21 Test Time: 08:13:57 Break Off Worker: HILARY MEASUREMENT RESULTS: Intervals: Rate: 88 TX: 194 QRSD: 80 QT: 362 QTc: 438 [place]: P: 43 TX: 194 QRS: -3 T: 115 INTERPRETIVE STATEMENTS: Normal sinus rhythm Anterolateral infarct, age undetermined Abnormal ECG Compared to ECG 08/20/2019 15:20:18 Sinus arrhythmia no longer present First degree AV block no longer present Myocardial infarct finding still present Electronically Signed On 08-21-19 19:23:58 CDT by Alex Manuel
--- NOTE | 2019-08-21 19:28 | EKG ---
Test Date: 2019-08-20 Test Time: 15:20:18 Dietary Aide Cook: JAIDA MEASUREMENT RESULTS: Intervals: Rate: 70 AR: 220 QRSD: 68 QT: 396 QTc: 427 [place]: P: 68 AR: 220 QRS: 38 T: 47 INTERPRETIVE STATEMENTS: Sinus rhythm with sinus arrhythmia with 1st degree AV block Possible Anterior infarct, age undetermined Abnormal ECG Compared to ECG 05/19/2019 16:03:15 First degree AV block now present T-wave abnormality no longer present Possible ischemia no longer present Myocardial infarct finding still present Electronically Signed On 08-21-19 19:24:22 CDT by Alex Manuel
[2019-08-21] MEDS: TRAZODONE 50 MG TABLET PO SCH (20:20)
[2019-08-21] MEDS: ATORVASTATIN 80 MG TAB PO SCH (20:21)
[2019-08-21] MEDS: INSULIN GLARGINE 100 UNITS/ML SQ SCH (20:22)
[2019-08-21] MEDS ORDERED: BRIMONIDINE TARTRATE LEFT EYE SCH (21:00)
[2019-08-21] MEDS ORDERED: TIMOLOL LEFT EYE SCH (21:00)
[2019-08-21] MEDS ORDERED: INSULIN DETEMIR SQ SCH (21:00)
--- NOTE | 2019-08-22 | CON ---
History Of Present Illness: Ms. Longoria is a 78-year-old black woman. She was admitted on 0 with acute congestive heart failure and hypertension. She does have a history of congestive heart failure in the past, has a history of diabetes, attention deficit disorder, pneumonia, hypertension, dyslipidemia, colon cancer, gastroesophageal reflux disease, and COPD. She denied any chest pain, bu t came in with PND, orthopnea, pedal edema, and shortness of breath. She has already diuresed well, but needs more aggressive diuresis. In February 2019, she underwent an RCA stent. She had a 50% LAD then. Allergies: SHE IS ALLERGIC TO SULFA. Review of Systems: Negative. Social History: Negative. Family History: Noncontributory. Medications: At home include, aspirin, Plavix, Lipitor, Norvasc, inhalers, insulin, Neurontin, Lasix , potassium, metformin, metoprolol, Protonix, Diovan, and sertraline. Physical Examination: General: She was in no acute distress. She was breathing better. She was in sinus rhythm. Vital Signs: Stable. She was afebrile. HEENT: Negative. Neck: Supple without any bruit, lymphadenopathy, JVD, or thyromegaly. Chest: Revealed rales both bases. Cardiac: Revealed a regular rhythm and rate with an S4 gallops. No murmurs or rubs. Abdomen: Obese, but benign. Extremities: Revealed 2+ edema to the knee. Skin: Dry and intact. Neurological: She was nonfocal. Pulses were present distally bilaterally. Diagnostic Data: EKG showed LVH, creatinine of 1.41. White count was 15,000, hemoglobin is 8.1. Ch est x-ray showed CHF. Potassium was 6.2. Her glucose was 282. Her BNP was 1802. Impression And Plan: 1.Acute on chronic diastolic congestive heart failure. Echocardiogram pending. She needs much more aggressive diuresis with higher doses of IV Lasix. 2.Diabetes, well controlled. 3.History of pneumonia. 4.Hypertension, well controlled. 5.Dyslipidemia. 6.History of colon cancer. 7.Chronic obstructive pulmonary disease. 8.Gastroesophageal reflux disease. 9.Hyperkalemia. 10.Anemia. 11.Elevated white count. 12.Renal insufficiency. 13.History of coronary artery disease status post stent of the right coronary artery with 50% left a nterior descending in February 2019. We will see what the echocardiogram shows. Continue diuresis. Watch her I's and O's, weight, and creatinine. She needs her potassium elevation treated. We will keep an eye on that. Nephrology should be involved in her case. I will continue to follow. ALYSHA/GEORGETTE Voice ID: [id number] Report ID: [id number]
[2019-08-22] MEDS: ALBUTEROL 2.5 MG/3 ML NEB SOL NEB SCH ×4 (00:40→19:43)
[2019-08-22] MEDS: IPRATROPIUM BROM 0.5MG/2.5ML NEB SCH ×4 (00:40→19:43)
[2019-08-22] MEDS: METHYLPREDNISOLONE 40 MG INJ IV SCH ×2 (01:29→07:55)
[2019-08-22] MEDS: FUROSEMIDE 40 MG/4 ML VIAL IV SCH ×3 (01:30→17:45)
--- NOTE | 2019-08-22 03:44 | P.PN ---
Subjective Date of Service: 08/21/19 Patient is improving. Lower extremity edema has improved. Will start again patient work with physical therapy. Continue with current plan of care as mentioned below. Review of Systems 10-point ROS is otherwise unremarkable Physical Examination - Vital Signs Temperature: 98.4 F Blood Pressure: 158/73 Pulse: 76 Respirations: 17 Pulse Ox (%): 100 - Physical Exam General: Alert, In no apparent distress, Oriented x3 Respiratory: Diminished, Crackles/rales Cardiovascular: Regular rate/rhythm, Normal S1 S2, Systolic murmur Gastrointestinal: Normal bowel sounds, Soft and benign, Non-distended, No ten derness Musculoskeletal: No clubbing, No tenderness, Swelling Integumentary: No rashes Neurological: Normal speech, Normal tone, Sensation intact, Cranial nerves 3-12 intact, Abnormal strength - Studies Medications List Reviewed: Yes Assessment & Plan - Problems (Diagnosis) (1) Acute exacerbation of COPD with asthma Current Visit: Yes Status: Acute (2) Acute on chronic diastolic (congestive) heart failure Onset Date: 02/18/17 Current Visit: No Status: Acute (3) Acute respiratory failure with hypoxia Onset Date: 11/21/15 Current Visit: No Status: Acute (4) Chest pain Onset Date: 07/26/16 Current Visit: No Status: Acute Qualifiers: Chest pain type: chest pain on breathing Qualified Code(s): R07.1 - Chest pain on breathing; R07.81 - Pleurodynia (5) SOB (shortness of breath) Onset Date: 07/26/16 Current Visit: No Status: Acute (6) CHF (congestive heart failure) Onset Date: 06/13/17 Current Visit: No Status: Chronic Qualifiers: Heart failure type: diastolic Heart failure chronicity: chronic Qualified Code(s): I50.32 - Chronic diastolic (congestive) heart failure (7) Depression Onset Date: 06/13/17 Current Visit: No Status: Chronic Qualifiers: (8) Diabetes mellitus Onset Date: 06/13/17 Current Visit: No Status: Chronic Qualifiers: Diabetes mellitus type: type 2 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 Echocardiogram a few months ago showed diastolic dysfunction; continue with diuresing 2. Continue with nebs, steroids, and antibiotics; wean off of IV steroids 3. Continue with cardiac medications 4. Cardiology consultation appreciated 5. Gentle diuresing monitor renal function 6. Strict I's and O's 7. Repeat CXR 8. Daily weights 9. Physical therapy evaluation 10. Education regarding diet and treatment of congestive heart failure Discharge Plan: Home Plan to discharge in: 48 Hours - Advance Directives Does patient have a Living Will: No Does patient have a Durable POA for Healthcare: No - Code Status/Comfort Care Code Status Assessed: Yes Code Status: Full Code Critical Care: No Time Spent Managing PTS Care (In Minutes): 30
[2019-08-22 05:41] LABS: Absolute Lymphocytes (CBC) 0.6 K/uL (0.7-4.9); Hematocrit 23.5 % (36.0-45.0); Lymphocytes % 6.8 % (15.3-44.8); MPV 8.2 fL (7.6-11.3); RBC Red Blood Cell Count 2.92 M/uL (3.86-4.86)
[2019-08-22] MEDS ORDERED: NA CHLORIDE 0.9% 250 ML ONE (07:39)
[2019-08-22] MEDS: CLOPIDOGREL 75 MG TABLET PO SCH (07:56)
[2019-08-22] MEDS: SERTRALINE HCL 50 MG TAB PO SCH (07:59)
[2019-08-22] MEDS: METOPROLOL TAR 50 MG TAB PO SCH ×2 (07:59→20:35)
[2019-08-22] MEDS: GABAPENTIN 400 MG CAP PO SCH ×3 (07:59→20:35)
[2019-08-22] MEDS ORDERED: ASPART SQ SCH (08:00)
[2019-08-22] MEDS: BUSPIRONE HCL 5 MG TABLET PO SCH ×2 (08:00→20:34)
[2019-08-22] MEDS: PANTOPRAZOLE 40MG TABLET PO SCH (08:00)
[2019-08-22] MEDS ORDERED: INSULIN ASPART PROTAM SQ SCH (08:00)
[2019-08-22] MEDS: ENOXAPARIN 40 MG/0.4 ML SQ SCH (08:00)
[2019-08-22] MEDS: INSULIN -REGULAR HUMAN 50 UNIT/0.5 ML ML SQ SCH ×5 (08:00→20:48)
[2019-08-22] MEDS: ASPIRIN 81 MG CHEWABLE TABLET PO SCH (08:00)
[2019-08-22] MEDS: HUMALOG MIX 75/25 100 UNITS/ML SQ SCH ×2 (08:00→17:00)
[2019-08-22] MEDS: ENSURE HIGH PROTEIN 237 ML CAN PO SCH (09:00)
--- NOTE | 2019-08-22 09:22 | RAD REPORT ---
EXAM DESCRIPTION: Maria Esther Single View08/22/2019 6:08 am CLINICAL HISTORY: Shortness of breath COMPARISON: August 20, 2019 FINDINGS: No change in mild bilateral pulmonary opacities. The heart remains enlarged IMPRESSION: No change in mild bilateral pulmonary opacities which may represent pulmonary edema
--- NOTE | 2019-08-22 09:50 | P.PN ---
Subjective Date of Service: 08/22/19 Patient doing well. Worked with physical therapy. Recommending outpatient home health. Review of Systems 10-point ROS is otherwise unremarkable Physical Examination - Vital Signs Temperature: 97.4 F Blood Pressure: 155/66 Pulse: 85 Respirations: 20 Pulse Ox (%): 96 - Physical Exam General: Alert, In no apparent distress, Oriented x3 Respiratory: Diminished, Crackles/rales Cardiovascular: Regular rate/rhythm, Normal S1 S2, Systolic murmur Gastrointestinal: Normal bowel sounds, Soft and benign, Non-distended, No tenderness Musculoskeletal: No clubbing, Swelling Neurological: Sensation intact, Cranial nerves 3-12 intact - Studies Microbiology Data (last 24 hrs): 08/20/19 15:43 Throat Culture & Sensitivity - Final NORMAL UPPER RESPIRATORY SANDY GROWN. Medications List Reviewed: Yes Assessment & Plan - Problems (Diagnosis) (1) Acute exacerbation of COPD with asthma Status: Acute (2) Acute on chronic diastolic (congestive) heart failure Onset Date: 02/18/17 Status: Acute (3) Acute respiratory failure with hypoxia Onset Date: 11/21/15 Status: Acute (4) Depression Onset Date: 06/13/17 Status: Chronic Qualifiers: (5) Diabetes mellitus Onset Date: 06/13/17 Status: Chronic Qualifiers: Diabetes mellitus type: type 2 Diabetes mellitus exterminator insulin use: with exterminator use Diabetes mellitus complication status: with unspecified complications (6) HTN (hypertension) Onset Date: 02/18/17 Status: Chronic Qualifiers: (7) Hyperlipidemia Onset Date: 06/13/17 Status: Chronic Qualifiers: - Plan Plan: 1. Continue with nebs, steroids, and antibiotics 2. Continue with diuresing 3. Physical therapy 4. Monitor labs closely 5. Arrange for outpatient home health 6. GI and DVT prophylaxis Discharge Plan: Home Plan to discharge in: 24 Hours - Advance Directives Does patient have a Living Will: No Does patient have a Durable POA for Healthcare: No - Code Status/Comfort Care Code Status Assessed: Yes Code Status: Full Code Critical Care: No Time Spent Managing PTS Care (In Minutes): 30
[2019-08-22 09:54] LABS: Folic Acid, (Folate) 17.5 ng/mL (3.1-17.5); Magnesium 2.3 mg/dL (1.8-2.4); Potassium 5.2 mmol/L (3.5-5.1)
[2019-08-22] MEDS ORDERED: D50W 25 GM/50 ML SYRINGE/VIAL IV PRN (11:54)
[2019-08-22] MEDS ORDERED: GLUCAGON 1 MG/VIAL IM PRN (11:54)
[2019-08-22] MEDS ORDERED: FUROSEMIDE 20 MG/ 2ML VIAL IV ONE (12:32)
[2019-08-22 15:03] LABS: Hematocrit 27.3 % (36.0-45.0)
--- NOTE | 2019-08-22 18:07 | PN ---
Date of Progress Note: 08/22/2019 Subjective: Ms. Longoria has been followed for acute congestive heart failure, hypertension, diabetes , dyslipidemia, coronary artery disease status post stent of the RCA in February 2019 with 50% LAD. She has diuresed very well. She has been here today. She has no complaint. She is in sinus rhythm. Objective: Chest: Clear. Cardiac: Revealed a regular rhythm and rate without any murmurs, gallops, or rubs. Abdomen: Benign. Extremities: Revealed trace edema. Laboratory Data: Blood work was still pending this morning including hemoglobin, creatinine, and pot assium. Assessment And Plan: I think Ms. Longoria can go home whenever it is okay with primary care physician . It would be nice to have her ambulate before we decide on discharge. When she goes home because o f her new onset of CHF, I think an outpatient Lexiscan may be reasonable considering her CAD, but I w ill make arrangements for that as an outpatient. ALYSHA/GEORGETTE Voice ID: [id number] Report ID: [id number]
[2019-08-22] MEDS: ATORVASTATIN 80 MG TAB PO SCH (20:33)
[2019-08-22] MEDS: TRAZODONE 50 MG TABLET PO SCH (20:35)
[2019-08-22] MEDS: INSULIN GLARGINE 100 UNITS/ML SQ SCH (20:49)
[2019-08-22] MEDS ORDERED: BISACODYL E.C. 5 MG TAB PO ONE (20:56)
[2019-08-22] MEDS ORDERED: predniSONE 10 MG TAB PO SCH (21:00)
[2019-08-23 00:21] VITALS: O2SAT 100
[2019-08-23] MEDS: FUROSEMIDE 40 MG/4 ML VIAL IV SCH (00:43)
[2019-08-23] MEDS: IPRATROPIUM BROM 0.5MG/2.5ML NEB SCH ×3 (01:04→13:42)
[2019-08-23] MEDS: ALBUTEROL 2.5 MG/3 ML NEB SOL NEB SCH ×3 (01:04→13:42)
[2019-08-23 05:02] VITALS: BMI 47.9
[2019-08-23 05:51] LABS: Absolute Lymphocytes (CBC) 0.8 K/uL (0.7-4.9); Basophils % 0.1 % (0-1.3); Hematocrit 26.4 % (36.0-45.0); Lymphocytes % 6.5 % (15.3-44.8); MPV 8.2 fL (7.6-11.3); Potassium 4.6 mmol/L (3.5-5.1); RBC Red Blood Cell Count 3.32 M/uL (3.86-4.86)
[2019-08-23 05:52] LABS: Magnesium 2.3 mg/dL (1.8-2.4)
[2019-08-23] MEDS: INSULIN -REGULAR HUMAN 50 UNIT/0.5 ML ML SQ SCH ×2 (07:30→12:39)
[2019-08-23] MEDS ORDERED: SOD FERRIC GLUC COMPLX/SUCROSE 125 MG in NA CHLORIDE 0.9% 100 ML IV ONE (07:30)
[2019-08-23] MEDS ORDERED: ALBUMIN HUMAN 25% 50 ML IV ONE (07:30)
[2019-08-23] MEDS ORDERED: FUROSEMIDE 40 MG/4 ML VIAL IV ONE (08:00)
[2019-08-23] MEDS: HUMALOG MIX 75/25 100 UNITS/ML SQ SCH (08:00)
[2019-08-23] MEDS: ENSURE HIGH PROTEIN 237 ML CAN PO SCH (08:28)
[2019-08-23] MEDS: CLOPIDOGREL 75 MG TABLET PO SCH (08:30)
[2019-08-23] MEDS: PANTOPRAZOLE 40MG TABLET PO SCH (08:30)
[2019-08-23] MEDS: ASPIRIN 81 MG CHEWABLE TABLET PO SCH (08:30)
[2019-08-23] MEDS: SERTRALINE HCL 50 MG TAB PO SCH (08:30)
[2019-08-23] MEDS: BUSPIRONE HCL 5 MG TABLET PO SCH (08:30)
[2019-08-23] MEDS: METOPROLOL TAR 50 MG TAB PO SCH (08:30)
[2019-08-23] MEDS: ENOXAPARIN 40 MG/0.4 ML SQ SCH (08:31)
[2019-08-23] MEDS: GABAPENTIN 400 MG CAP PO SCH ×2 (08:31→14:00)
--- NOTE | 2019-08-23 08:57 | ECHO ---
HEIGHT: 5 ft 2 in WEIGHT: 262 lb 3.2 oz DATE OF STUDY: 08/22/[address]: Ramiro Hicks MD 2-DIMENSIONAL: YES M.MODE: YES DOPPLER: YES COLOR FLOW: YES TDS: YES PORTABLE: NO DEFINITY: NO BUBBLE STUDY: NO DIAGNOSIS: CONGESTIVE HEART FAILURE CARDIAC HISTORY: CATHERIZATION: YES SURGERY: NO PROSTHETIC VALVE: NO PACEMAKER: NO MEASUREMENTS (cm) DIASTOLIC (NORMALS) SYSTOLIC (NORMALS) IVSd 0.9 (0.6-1.2) LA Diam 2.7 (1.9-4.0) LVEF 63% LVIDd 3.4 (3.5-5.7) LVIDs 2.3 (2.0-3.5) %FS 33% LVPWd 1.0 (0.6-1.2) Ao Diam 2.4 (2.0-3.7) 2 DIMENSIONAL ASSESSMENT: RIGHT ATRIUM: NORMAL LEFT ATRIUM: NORMAL RIGHT VENTRICLE: NORMAL LEFT VENTRICLE: NORMAL TRICUSPID VALVE: NORMAL MITRAL VALVE: MITRAL ANNULAR CALCIFICATION PULMONIC VALVE: NORMAL AORTIC VALVE: SCLEROSIS PERICARDIAL EFFUSION: NONE AORTIC ROOT: NORMAL LEFT VENTRICULAR WALL MOTION: NORMAL DOPPLER/COLOR FLOW: NORMAL COMMENTS: TECHNICALLY DIFFICULT STUDY. GROSSLY NORMAL LEFT VENTRICULAR SIZE AND FUNCTION. MITRAL ANNULAR CALCIFICATION. AORTIC SCLEROSIS. TECHNOLOGIST: Janes JEONG
[2019-08-23] MEDS ORDERED: predniSONE 10 MG TAB PO SCH (09:00)
--- NOTE | 2019-08-23 15:43 | PN ---
Date of Progress Note: 08/23/2019 Ms. Longoria is being seen today on 08/23/2019 for acute on chronic diastolic congestive heart failure . She has diuresed and improved significantly from that standpoint. Her glucose remains poorly cont rolled at 420, hemoglobin of 7.2, creatinine 1.3. She remains in the hospital because of the above. She has diabetes, hypertension, and dyslipidemia. Her diabetes is poorly controlled. She has renal insufficiency that is stable. She has COPD. She has a history of coronary artery disease, status p ost RCA stent with a 50% LAD in February 2019. Renal Doppler is negative. Echocardiogram that was d one yesterday showed normal ejection fraction with decreased left ventricular compliance. Patient is on aspirin, Lipitor, Lasix, Plavix, Lovenox, insulin, Protonix, and steroid. I agree with the prese nt regimen. I will sign off her case. I will be available for questions if the need arise. She can go home whenever it is okay with Dr. Singleton. ALYSHA/GEORGETTE Voice ID: [id number] Report ID: [id number]
--- NOTE | 2019-08-24 03:09 | P.DS ---
Discharge Date: 08/23/19 Disposition: ROUTINE DISCHARGE Discharge Condition: GOOD Reason for Admission: Shortness of breath/acute renal insufficiency Consultations: Cardiology Nephrology Brief History of Present Illness: Patient is a 78-year-old female who came the hospital with difficulty breathing. Patient has also had some lower extremity edema. Patient has history of COPD and she would get nebulizer and adult home oxygen. She came into the emergency room for further evaluation. In the emergency room she was started on nebs, steroids, and given diuresing. Chest x-ray revealed pulmonary edema. She will be admitted to the hospital for further evaluation. Hospital Course: Patient doing well. Patient was diuresed and her respiratory status is improving. Continue with nebs as an outpatient. Wean off the steroids. Monitor renal function closely. Outpatient follow with Pulmonary and Cardiology. Also follow with Nephrology as an outpatient. Arrange for outpatient home health with physical therapy and nursing care. Vital Signs/Physical Exam: Temp Pulse Resp BP Pulse Ox 97.5 F 71 20 149/74 H 99 08/23/19 12:00 08/23/19 12:00 08/23/19 12:00 08/23/19 12:00 08/23/19 12:00 General: Alert, In no apparent distress, Oriented x3 Laboratory Data at Discharge: WBC 11.8 K/uL (4.3-10.9) H D 08/23/19 05:23 Hgb 8.3 g/dL (12.0-15.0) L 08/23/19 05:23 Hct 26.4 % (36.0-45.0) L 08/23/19 05:23 Plt Count 310 K/uL (152-406) 08/23/19 05:23 PT 14.5 SECONDS (9.5-12.5) H 08/20/19 15:38 INR 1.23 08/20/19 15:38 Sodium 142 mmol/L (136-145) 08/23/19 05:23 Potassium 4.6 mmol/L (3.5-5.1) 08/23/19 05:23 BUN 31 mg/dL (7-18) H 08/23/19 05:23 Creatinine 1.21 mg/dL (0.55-1.3) 08/23/19 05:23 Glucose 148 mg/dL (74-106) H 08/23/19 05:23 Phosphorus 3.8 mg/dL (2.5-4.9) 08/21/19 06:07 Magnesium 2.3 mg/dL (1.8-2.4) 08/23/19 05:23 Total Bilirubin 0.7 mg/dL (0.2-1.0) 08/21/19 06:07 AST 15 U/L (15-37) 08/21/19 06:07 ALT 19 U/L (12-78) 08/21/19 06:07 Alkaline Phosphatase 171 U/L (45-117) H 08/21/19 06:07 Troponin I < 0.02 ng/mL (0.0-0.045) 08/21/19 06:07 Triglycerides 120 mg/dL (<150) 08/21/19 06:07 Cholesterol 77 mg/dL (<200) 08/21/19 06:07 HDL Cholesterol 27 mg/dL (40-60) L 08/21/19 06:07 Cholesterol/HDL Ratio 2.85 08/21/19 06:07 Home Medications: Aspirin 81 mg PO DAILY 05/19/19 Atorvastatin Calcium [Lipitor] 80 mg PO BEDTIME 05/19/19 Buspirone HCl [Buspar] 10 mg PO BID 05/19/19 Furosemide 40 mg PO DAILY 05/19/19 Gabapentin 800 mg PO TID 05/19/19 Insulin Aspart Prot/Insuln Asp [Novolog Mix 70-30 Flexpen] 50 units SQ DAILY AT SUPPER 05/19/19 Insulin Aspart Protam & Aspart [Novolog Mix 70-30 Vial] 80 units SQ BREAKFAST 05/19/19 Insulin Detemir [Levemir] 66 units SQ BEDTIME 05/19/19 Metformin HCl [Glucophage Xr] 500 mg PO BID 05/19/19 Nitroglycerin [Nitrostat*] 0.4 mg PO PRN PRN MDD 3 tab 05/19/19 Pantoprazole [Protonix Tab*] 40 mg PO DAILY 05/19/19 Sertraline HCl 50 mg PO DAILY 05/19/19 Tramadol HCl [Ultram] 50 mg PO TID PRN 05/19/19 Trazodone [Desyrel*] 50 mg PO BEDTIME 05/19/19 Brimonidine Tartrate/Timolol [Combigan 0.2%-0.5% Eye Drops] 5 drop LEFT EYE BEDTIME 05/22/19 Clopidogrel Bisulfate [Plavix*] 75 mg PO DAILY tablet 05/22/19 Fluticasone/Salmeterol [Advair 250-50 Diskus] 1 each IH Q12HR #60 blst.w.dev 05/22/19 Metoprolol Tartrate [Lopressor*] 50 mg PO BID #60 tab 05/22/19 Amlodipine [Norvasc*] 5 mg PO DAILY 08/21/19 Bimatoprost [Lumigan Opthalmic Drops*] 1 drop EACH EYE BID 08/21/19 Cefdinir [Omnicef] 300 mg PO BID #14 capsule 08/23/19 Ferrous Fumarate [Hemocyte] 324 mg PO DAILY #30 tablet 08/23/19 Potassium Chloride 10 meq PO DAILY #30 tablet.er 08/23/19 predniSONE [Deltasone*] 10 mg PO DAILY #7 tab 08/23/19 New Medications: predniSONE [Deltasone*] 10 mg PO DAILY #7 tab Ferrous Fumarate [Hemocyte] 324 mg PO DAILY #30 tablet Cefdinir [Omnicef] 300 mg PO BID #14 capsule Potassium Chloride 10 meq PO DAILY #30 tablet.er Patient Discharge Instructions: OK TO DC IV AND DC HOME. FOLLOW-UP WITH PRIMARY CARE PROVIDER IN 1-2 WEEKS. FOLLOW-UP WITH CARDIOLOGY IN 1-2 WEEKS. FOLLOW-UP WITH NEPHROLOGY IN 1-2 WEEK. FOLLOW-UP WITH PULMONARY IN 1-2 WEEK. RETURN TO THE ER IF SYMPTOMS WORSEN. PLEASE MAKE SURE PATIENT HAS HOME HEALTH ARRANGE WITH PHYSICAL THERAPY AND NURSING CARE PRIOR TO DISCHARGE. CALL or TEXT DR. MENARD AT [phone] IF ANY QUESTIONS REGARDING HOSPITAL STAY. PLEASE CALL THE FLOOR AT [phone] IF ANY MEDICATION OR NURSING QUESTIONS. Diet: AHA Activity: Fall precautions Followup: Alex Manuel MD [ACTIVE - CAN ADMIT] - (call to schedule appointment) Addie Cormier DO [Primary Care Provider] - (call to schedule appointment) Time spent managing pt's care (in minutes): 25
[2019-08-24 03:11] VITALS: BP 155/66; TEMP 97.4
== END 2019-08-23 15:54 | disposition home health service (06) | DRG 291 ==
LOC: ER 14:26 → ERHOLD 19:37 → 4TH 21:56
PROVIDERS: ADMIT Hospitalist; ATTEND Hospitalist
PROC: 30233N1 Transfusion of Nonautologous Red Blood Cells into Peripheral Vein, Percutaneous Approach (ICD-10-PCS; principal; 2019-08-22)
DX: I11.0 Hypertensive heart disease with heart failure (principal); J96.01 Acute respiratory failure with hypoxia; J44.1 Chronic obstructive pulmonary disease with (acute) exacerbation; E11.40 Type 2 diabetes mellitus with diabetic neuropathy, unspecified; I50.33 Acute on chronic diastolic (congestive) heart failure; Z88.1 Allergy status to other antibiotic agents; Z79.82 Long term (current) use of aspirin; Z79.4 Long term (current) use of insulin; Z79.02 Long term (current) use of antithrombotics/antiplatelets; Z79.899 Other long term (current) drug therapy; K21.9 Gastro-esophageal reflux disease without esophagitis; Z85.038 Personal history of other malignant neoplasm of large intestine; Z90.49 Acquired absence of other specified parts of digestive tract; Z90.710 Acquired absence of both cervix and uterus; E78.5 Hyperlipidemia, unspecified; Z95.5 Presence of coronary angioplasty implant and graft; E87.5 Hyperkalemia; D64.9 Anemia, unspecified; D72.829 Elevated white blood cell count, unspecified; F32.9 Major depressive disorder, single episode, unspecified; N28.9 Disorder of kidney and ureter, unspecified; Z79.52 Long term (current) use of systemic steroids
CPT/HCPCS: 36415; 71045; 76770; 80048; 80053; 80061; 80076; 81003; 81015; 82550; 82607; 82746; 82947; 83540; 83605; 83735; 83880; 84100; 84145; 84484; 85014; 85018; 85025; 85044; 85610; 86850; 86900; 86901; 87070; 87077; 87081; 87086; 87088; 87186; 87804; 93005; 93306; 94640; 97116; 97161; 97530; 99285; J1650; J1815; J1940; J2916; J2920; J7030; J7512; P9016; P9047

== ENCOUNTER 2020-07-03 10:21 | Day surgery (SDC) | payer OTHER ==
[2020-06-30 16:01] LABS: Absolute Lymphocytes (CBC) 1.3 K/uL (0.7-4.9); Basophils % 0.4 % (0-1.3); Hematocrit 30.9 % (36.0-45.0); Lymphocytes % 16.8 % (15.3-44.8); MPV 8.4 fL (7.6-11.3); RBC Red Blood Cell Count 3.65 M/uL (3.86-4.86)
[2020-06-30 16:10] LABS: Protime INR 1.02
[2020-06-30 16:17] LABS: Potassium 4.1 mmol/L (3.5-5.1)
--- NOTE | 2020-06-30 16:29 | RAD REPORT ---
EXAM DESCRIPTION: RAD - Chest Pa And Lat (2 Views) - 06/30/2020 3:57 pm CLINICAL HISTORY: preoppending cardiac catheterization COMPARISON: Portable August 2000 TECHNIQUE: Frontal and lateral views of the chest were obtained. FINDINGS: The lungs are fibrotic but clear of an acute lung parenchymal process. Prominence of each suprahilar region is similar to comparison. No acute failure or volume overload. Heart size is upper normal, diminished from comparison. No pleural effusion or pneumothorax seen. No acute bony finding noted. No aortic abnormality. IMPRESSION: No acute cardiopulmonary process.
[2020-07-03] MEDS ORDERED: NA CHLORIDE 0.9% 500 ML ONE (10:57)
[2020-07-03] MEDS ORDERED: LIDOCAINE 1% 20 ML MDV ONE (11:03)
[2020-07-03] MEDS ORDERED: HEPA 1000U/500MLS 2,000 UNIT/1,000 ML BAG IV ONE (11:04)
[2020-07-03] MEDS ORDERED: MIDAZOLAM HCL 2 MG/2 ML INJ ONE (11:52)
[2020-07-03] MEDS ORDERED: HEPARIN 5000 UNIT/ML 1 ML VIAL ONE (11:52)
[2020-07-03] MEDS ORDERED: HEPARIN 10,000 UNIT/10 ML VIAL IV ONE (11:53)
[2020-07-03] MEDS ORDERED: NITROGLYCERIN 100 MCG/ML SYR (for cath lab use only) IV ONE (11:53)
[2020-07-03] MEDS ORDERED: VERAPAMIL HCL 10 MG/4 ML VIAL IV ONE (11:53)
[2020-07-03] MEDS ORDERED: ATROPINE SULF 1 MG/10 ML SYR IV ONE (11:53)
[2020-07-03] MEDS ORDERED: FENTANYL CITR 100 MCG/2 ML ONE (11:53)
[2020-07-03] MEDS ORDERED: NITROGLYCERIN/D5W 25 MG/250 ML BTL IV ONE (11:54)
--- NOTE | 2020-07-03 13:20 | OP ---
Date of Procedure: 07/03/2020 Surgeon: IGOR FORREST Procedure Performed: Selective coronary angiogram. Access: Right radial artery 6-Swazi closed with TR band. Indication: Unstable angina with no coronary artery disease. Description Of Procedure: After risks, benefits, and alternatives were explained, the patient agreed to the procedure and signed for consent. The patient was brought into the cardiac catheterization l aboratory, prepped and draped in usual sterile fashion. Then, we accessed right radial artery using pediatric micropuncture kit and placed a 6-Swazi slender sheath and then we took a 5-Swazi Gut[place] 4, 0 catheter into the aortic root over a J-wire, engaged the left main and right coronary artery, and t ook standard views. Then, we removed the catheter and the sheath and placed TR band. Findings: 1.Left main; large, distal 30% stenosis. 2.LAD; mid LAD stent has 80% ISR and then distal to the stent 80% to 90% stenosis and distal LAD has 60% stenosis. 3.Left circumflex; the OM 1 branch has severe long proximal 90% in the proximal portion. 4.RCA; large vessel, dominant circulation. There is 80% stenosis before the stent and the mid RCA s tent has 90% to 95% ISR. Conclusion: Severe multivessel disease as outlined above with recurrent restenosis requiring interve ntion. Recommendations: Transfer for CABG evaluation. If the patient is not a candidate for surgery, then multivessel PCI will be done. SR/MODL Voice ID: [id number] Report ID: [id number]
[2020-07-03 14:39] VITALS: O2SAT 96
[2020-07-03 16:27] VITALS: BP 170/72; TEMP 97
== END 2020-07-03 13:35 | disposition short-term general hospital (02) ==
LOC: CCL 10:21
PROVIDERS: ATTEND Internal Medicine
DX: I25.110 Atherosclerotic heart disease of native coronary artery with unstable angina pectoris (principal); T82.855A Stenosis of coronary artery stent, initial encounter; I11.0 Hypertensive heart disease with heart failure; I50.33 Acute on chronic diastolic (congestive) heart failure; E78.2 Mixed hyperlipidemia; E11.9 Type 2 diabetes mellitus without complications; G62.9 Polyneuropathy, unspecified; J44.1 Chronic obstructive pulmonary disease with (acute) exacerbation; K21.9 Gastro-esophageal reflux disease without esophagitis; H54.7 Unspecified visual loss; E66.9 Obesity, unspecified; Z68.41 Body mass index [BMI] 40.0-44.9, adult; Z95.5 Presence of coronary angioplasty implant and graft; Z88.2 Allergy status to sulfonamides; Z20.822 Contact with and (suspected) exposure to COVID-19
CPT/HCPCS: 93005; 85025; 80048; 36415; 85610; 82947; 85730; 71046; 93454; U0003; C1893; J1644 ×2; J2250; J3010; J7040

== ENCOUNTER 2020-12-04 12:41 | Day surgery (SDC) | payer OTHER ==
[2020-12-01 17:07] LABS: Absolute Lymphocytes (CBC) 1.6 K/uL (0.7-4.9); Basophils % 0.4 % (0-1.3); Hematocrit 32.3 % (36.0-45.0); Lymphocytes % 19.7 % (15.3-44.8); MPV 7.7 fL (7.6-11.3); RBC Red Blood Cell Count 3.89 M/uL (3.86-4.86)
[2020-12-01 17:11] LABS: Protime INR 0.99
[2020-12-01 17:34] LABS: Potassium 4.1 mmol/L (3.5-5.1)
--- NOTE | 2020-12-02 10:06 | EKG ---
Test Date: 2020-12-01 Test Time: 15:40:14 Angle Shear Set Up Operator: GILES MEASUREMENT RESULTS: Intervals: Rate: 73 [place]: 284 QRSD: 82 QT: 398 QTc: 438 [place]: P: 87 [place]: 284 QRS: -6 T: 108 INTERPRETIVE STATEMENTS: Sinus rhythm with 1st degree AV block Cannot rule out Anterior infarct, age undetermined Abnormal ECG Compared to ECG 07/03/2020 12:18:25 No significant changes Electronically Signed On 12-02-20 10:04:45 CDT by Alex Manuel
[2020-12-04] MEDS ORDERED: NA CHLORIDE 0.9% 500 ML ONE (13:45)
[2020-12-04] MEDS ORDERED: FENTANYL CITR 100 MCG/2 ML ONE (14:45)
[2020-12-04] MEDS ORDERED: VERAPAMIL HCL 10 MG/4 ML VIAL IV ONE (14:45)
[2020-12-04] MEDS ORDERED: MIDAZOLAM HCL 2 MG/2 ML INJ ONE (14:45)
[2020-12-04] MEDS ORDERED: ATROPINE SULF 1 MG/10 ML SYR IV ONE (14:46)
[2020-12-04] MEDS ORDERED: CLOPIDOGREL 75 MG TABLET ONE (15:06)
[2020-12-04] MEDS ORDERED: HEPARIN 5000 UNIT/ML 1 ML VIAL ONE (16:31)
[2020-12-04] MEDS ORDERED: HEPA 1000U/500MLS 2,000 UNIT/1,000 ML BAG IV ONE (16:31)
[2020-12-04 17:09] VITALS: TEMP 98
[2020-12-04 20:29] VITALS: BP 145/73; O2SAT 93
--- NOTE | 2020-12-05 00:16 | OP ---
Date of Procedure: 12/04/2020 Surgeon: IGOR FORREST Procedures Performed: 1.Selective coronary angiogram. 2.PCI of severe mid LAD stenosis using 2.5 x 60 mm in the distal portion and then 3.0 x 60 mm in the proximal portion of the LAD. 3.IVUS of left main LAD, luminal area of the area of stenosis, left main is 6.2 sq mm. Access: Right radial artery 6-Egyptian closed with TR band. Indication: Unstable angina. Complications: None. Bleeding: Less than 10 mL. Description Of Procedure: After risks, benefits, and alternatives were explained, the patient agreed to the procedure and signed informed consent. The patient was brought into cardiac catheterization laboratory, prepped and draped in usual sterile fashion. Then, I accessed right radial artery using pediatric micropuncture kit, placed 6-Egyptian slender sheath and took a 5-Egyptian [place] 4.0 catheter in to the aortic root, engaged the left main and right coronary, took standard views and then exchanged for 6-Egyptian EBU 3.5 guide into the aortic root, engaged the left main. We gave systemic heparin to assure level above 250 and then took run-through wire into the left middle and the LAD and placed a w chris distally and then we did IVUS, determined the need for intervention on the LAD. In the distal le saige of the mid and deep segment and then placed a 2.5 x 60 mm Synergy drug-eluting stent overlapped with the previous stent and then approximately also there was significant stenosis proximal to the st ent. We used a cutting balloon 2.75 x 10 mm and then 3.0 x 50 mm NC balloon to high pressure and the n placed a 3.0 x 60 mm Synergy drug-eluting stent with good expansion. ZAINA-3 flow. Then repeated I VUS showed a significant improvement and we removed the catheter and wires and sheath was removed. P laced TR band with good hemostasis. Findings: 1.Left main, distal 40% with luminal area of 6.2 sq mm per IVUS. 2.LAD: Proximal LAD is diffusely calcified about 20% to 30% stenosis, but with normal luminal area per IVUS. 3.Mid LAD, severe 80% to 90% heavily calcified status post cutting balloon angioplasty and PCI using 3.0 x 60 mm Synergy drug-eluting stent and patent mid LAD stent and distal to the stent there is 90% stenosis, calcified status post PCI using 2.5 x 60 mm Synergy drug-eluting stent. 4.Left circumflex has ostial 30% stenosis and the mid left circumflex stent is patent with no ISR. 5.RCA: Proximal to mid RCA stents were patent. The ely shoshone RCA is with luminal irregularities. Tot al amount of contrast used was 35 cc. Conclusion: 1.Severe mid LAD stenosis at 2 different locations status post successful PCI as above. 2.Moderate left main stenosis by IVUS to be monitored and if the patient continues to be symptomatic , we might consider to do elective CSI atherectomy plus PCI in the near future. SR/MODL Voice ID: [id number] Report ID: [id number]
== END 2020-12-04 20:34 | disposition home or self-care (01) ==
LOC: PRE 12:41 → CCL 20:34
PROVIDERS: ATTEND Internal Medicine
DX: I25.110 Atherosclerotic heart disease of native coronary artery with unstable angina pectoris (principal); I11.0 Hypertensive heart disease with heart failure; I50.33 Acute on chronic diastolic (congestive) heart failure; E78.5 Hyperlipidemia, unspecified; H54.7 Unspecified visual loss; Z95.5 Presence of coronary angioplasty implant and graft; Z88.2 Allergy status to sulfonamides; Z20.822 Contact with and (suspected) exposure to COVID-19
CPT/HCPCS: 93005; 85025; 80048; 36415; 85610; 82947; 85347; 85730; 92928; 92978; 93454; U0003; C1893; C1725; J1644 ×2; J2250; J3010; J7040

== ENCOUNTER 2021-09-22 13:01 | Observation (INO) | payer MEDICARE ==
--- NOTE | 2021-09-22 13:47 | RAD REPORT ---
EXAM DESCRIPTION: RAD - Chest Single View - 09/22/2021 1:39 pm CLINICAL HISTORY: CHEST PAIN Chest pain. COMPARISON: Chest Pa And Lat (2 Views) dated 06/30/2020; Chest Single View dated 08/22/2019; Chest Sing le View dated 08/20/2019; Chest Single View dated 05/19/2019; Chest Pa And Lat (2 Views) dated 07/25/2016 FINDINGS: Portable technique limits examination quality. Mild interstitial pulmonary edema. The heart is upper limit normal size. No displaced fractures. IMPRESSION: Mild CHF.
[2021-09-22 14:00] LABS: Absolute Lymphocytes (CBC) 1.4 K/uL (0.7-4.9); Hematocrit 36.4 % (36.0-45.0); Lymphocytes % 13.7 % (15.3-44.8); MCV 87.4 fL (80-100); MPV 8.7 fL (7.6-11.3); RBC Red Blood Cell Count 4.16 M/uL (3.86-4.86)
[2021-09-22 14:01] LABS: Protime INR 1.08
[2021-09-22 14:32] LABS: Potassium 4.5 mmol/L (3.5-5.1)
[2021-09-22 14:33] LABS: Troponin High Sensitivity 9.4 pg/mL (<58.9)
--- NOTE | 2021-09-22 16:00 | EDPHYS ---
Physician Documentation [facility] Name: Gloria Longoria Age: 80 yrs Sex: Female : 1940 Arrival Date: 09/22/2021 Time: 13:02 Bed 2 Private MD: ED Physician Jonatan Jacinto HPI: 09/22 17:25 This 80 yrs old Black Female presents to ER via Wheelchair with complaints of Chest kb Pain. 17:25 The patient or guardian reports chest pain that is located primarily in the substernal kb area, anterior chest wall, left. Onset: 3 day(s) ago. The pain does not radiate. Associated signs and symptoms: Pertinent positives: nausea, shortness of breath. The chest pain is described as aching. Duration: The patient or guardian reports multiple episodes, that are intermittent, with no pattern. Modifying factors: The symptoms are alleviated by nothing. the symptoms are aggravated by nothing. Severity of pain: At its worst the pain was moderate in the emergency department the pain is unchanged. The patient has not experienced similar symptoms in the past. The patient has not recently seen a physician. Historical: - Allergies: 13:17 Sulfa (Sulfonamide Antibiotics); ld1 13:17 Sulfa (Sulfonamide Antibiotics); ld1 - PMHx: 13:17 ADD/ADHD; CHF; Pneumonia; Hypertension; Diabetes - IDDM; colon cancer; ADD/ADHD; CHF; ld1 Pneumonia; Hypertension; Diabetes - IDDM; colon cancer; - Immunization history:: Adult Immunizations up to date, Client reports receiving the 2nd dose of the Covid vaccine. - Social history:: Smoking status: Patient denies any tobacco usage or history of. Patient/guardian denies using alcohol. ROS: 17:24 Constitutional: Negative for fever, chills, and weight loss. kb 17:24 Cardiovascular: Positive for chest pain, Negative for edema, orthopnea, palpitations, paroxysmal nocturnal dyspnea. 17:24 Respiratory: Positive for dyspnea on exertion, shortness of breath, Negative for cough, hemoptysis, orthopnea, pleurisy, sputum production, wheezing. 17:24 All other systems are negative. Exam: 13:14 ECG was reviewed by the Attending Physician. ms3 17:24 Constitutional: This is a well developed, well nourished patient who is awake, alert, kb and in no acute distress. Head/Face: Normocephalic, atraumatic. ENT: Moist Mucous membranes Cardiovascular: Regular rate and rhythm with a normal S1 and S2. No gallops, murmurs, or rubs. No pulse deficits. Respiratory: Respirations even and unlabored. No increased work of breathing. Talking in full sentences Abdomen/GI: Soft, non-tender. No distention Skin: Warm, dry with normal turgor. Normal color. MS/ Extremity: Pulses equal, no cyanosis. Neurovascular intact. Full, normal range of motion. Neuro: Awake and alert, GCS 15, oriented to person, place, time, and situation. Moves all extremities. Normal gait. Psych: Awake, alert, with orientation to person, place and time. Behavior, mood, and affect are within normal limits. Vital Signs: 13:15 Pulse 82; Resp 18; Temp 98.3(TE); Pulse Ox 100% on R/A; Weight 101.6 kg; Height 5 ft. 3 ld1 in. (160.02 cm); Pain 6/10; 14:57 BP 115 / 62; Pulse 81; Resp 25; Pulse Ox 96% ; bp 17:52 BP 138 / 61; Pulse 74; Resp 21 S; Pulse Ox 97% on R/A; iw 18:31 BP 135 / 54; Pulse 75; Resp 16 S; aa9 20:01 BP 138 / 61; Pulse 75; Resp 16; Pulse Ox 98% on R/A; Pain 0/10; kl 13:15 Body Mass Index 39.68 (101.60 kg, 160.02 cm) ld1 MDM: 13:19 Patient medically screened. 17:24 Data reviewed: vital signs, nurses notes. Data interpreted: Pulse oximetry: on room air kb is 96 %. Interpretation: normal. Counseling: I had a detailed discussion with the patient and/or guardian regarding: the historical points, exam findings, and any diagnostic results supporting the discharge/admit diagnosis, lab results, radiology results, the need for further work-up and treatment in the hospital. 17:24 Physician consultation: Kristopher Ayon MD was contacted at 16:00, regarding admission, to the telemetry unit. 09/22 13:11 Order name: Basic Metabolic Panel; Complete Time: 14:38 bp 09/22 13:11 Order name: CBC with Diff; Complete Time: 14:27 bp 09/22 13:11 Order name: NT PRO-BNP; Complete Time: 14:38 bp 09/22 13:11 Order name: PT-INR; Complete Time: 14:27 bp 05 13:11 Order name: Troponin HS; Complete Time: 14:38 bp 05 13:15 Order name: SARS-COV-2 RT PCR (Document "Date of Onset" if Symptomatic); Complete Time: eb 14:54 07/05 13:11 Order name: XRAY Chest (1 view); Complete Time: 13:51 bp 05 13:11 Order name: EKG; Complete Time: 13:12 bp 09/22 13:11 Order name: Cardiac monitoring; Complete Time: 13:12 bp 09/22 13:11 Order name: EKG - Nurse/Tech; Complete Time: 13:12 bp 05 18:28 Order name: Diet Heart Healthy; Complete Time: 18:29 bp 05 13:11 Order name: IV Saline Lock; Complete Time: 13:25 bp 09/22 13:11 Order name: Labs collected and sent; Complete Time: 13:24 bp 05 13:11 Order name: O2 Per Protocol; Complete Time: 13:12 bp 09/22 13:11 Order name: O2 Sat Monitoring; Complete Time: 13:12 bp EC:14 Rate is 89 beats/min. Rhythm is regular. QRS [place] is Normal. MA interval is prolonged. ms3 Clinical impression: 1st degree heart block. Administered Medications: 16:21 Drug: ProTONIX (pantoprazole) 40 mg Route: IVP; Site: right forearm; iw 20:41 Follow up: Response: No adverse reaction as6 Disposition: 22:42 Co-signature as Attending Physician, Jonatan AQUINO was immediately available on-site ms3 in the Emergency Department for consultation in the care of the patient. . Disposition Summary: 09/22/21 15:59 Hospitalization Ordered Hospitalization Status: Observation kb Provider: Kristopher Ayon Location: Telemetry/MedSurg (observation) kb Condition: Stable kb Problem: new kb Symptoms: are unchanged kb Bed/Room Type: Standard Room Assignment: 210(09/22/21 19:35) Diagnosis - Chest pain, unspecified kb Forms: - Medication Reconciliation Form kb - SBAR form kb Signatures: Dispatcher [employer] EDMS Rosa M Thurman, SONALI-C LEGAL RECEPTIONIST-Ginger Fuchs RN RN Jeniffer Xie RN Chaz Gore RN RN bp Sims, Marcus, DO MERCEDES ms3 Miley Vera RN RN ld1 Brian Dewitt RN as6 Corrections: (The following items were deleted from the chart) 19:35 15:59 kb kimo
--- NOTE | 2021-09-22 16:00 | ER ---
Nurse's Notes [facility] Name: Gloria Longoria Age: 80 yrs Sex: Female : 1940 Arrival Date: 09/22/2021 Time: 13:02 Bed 2 Private MD: Diagnosis: Chest pain, unspecified Presentation: 09/22 13:15 Chief complaint: Patient states: Intermittent chest pain for 1 week. Coronavirus ld1 screen: At this time, the client does not indicate any symptoms associated with coronavirus-19. Ebola Screen: No symptoms or risks identified at this time. Initial Sepsis Screen: Does the patient meet any 2 criteria? No. Patient's initial sepsis screen is negative. Does the patient have a suspected source of infection? No. Patient's initial sepsis screen is negative. Risk Assessment: Do you want to hurt yourself or someone else? Patient reports no desire to harm self or others. Onset of symptoms was September 22, 2021. 13:15 Method Of Arrival: Wheelchair ld1 13:15 Acuity: MALAIKA 3 ld1 Triage Assessment: 13:17 General: Appears in no apparent distress. comfortable, Behavior is calm, cooperative, ld1 appropriate for age. Pain: Complains of pain in left breast Pain does not radiate. Pain currently is 6 out of 10 on a pain scale. EENT: No signs and/or symptoms were reported regarding the EENT system. Neuro: Level of Consciousness is awake, alert, obeys commands, Oriented to person, place, time, situation. Cardiovascular: Capillary refill < 3 seconds Patient's skin is warm and dry. Respiratory: Airway is patent Respiratory effort is even, unlabored. GI: Abdomen is flat, non-distended. : No signs and/or symptoms were reported regarding the genitourinary system. Derm: No signs and/or symptoms reported regarding the dermatologic system. Musculoskeletal: No signs and/or symptoms reported regarding the musculoskeletal system. Historical: - Allergies: 13:17 Sulfa (Sulfonamide Antibiotics); ld1 13:17 Sulfa (Sulfonamide Antibiotics); ld1 - PMHx: 13:17 ADD/ADHD; CHF; Pneumonia; Hypertension; Diabetes - IDDM; colon cancer; ADD/ADHD; CHF; ld1 Pneumonia; Hypertension; Diabetes - IDDM; colon cancer; - Immunization history:: Adult Immunizations up to date, Client reports receiving the 2nd dose of the Covid vaccine. - Social history:: Smoking status: Patient denies any tobacco usage or history of. Patient/guardian denies using alcohol. Screenin:15 Abuse screen: Denies threats or abuse. Denies injuries from another. Nutritional bp screening: No deficits noted. Tuberculosis screening: No symptoms or risk factors identified. Fall Risk None identified. Assessment: 13:15 General: SEE TRIAGE NOTE. bp 14:58 Reassessment: No changes from previously documented assessment. Patient and/or family bp updated on plan of care and expected duration. Pain level reassessed. 18:27 Reassessment: ADRIANA Hall Hospitalist at bedside assessing pt and discussing POC. jl7 20:02 Pain: Pain began off and on x 1 week. kl Vital Signs: 13:15 Pulse 82; Resp 18; Temp 98.3(TE); Pulse Ox 100% on R/A; Weight 101.6 kg; Height 5 ft. 3 ld1 in. (160.02 cm); Pain 6/10; 14:57 BP 115 / 62; Pulse 81; Resp 25; Pulse Ox 96% ; bp 17:52 BP 138 / 61; Pulse 74; Resp 21 S; Pulse Ox 97% on R/A; iw 18:31 BP 135 / 54; Pulse 75; Resp 16 S; aa9 20:01 BP 138 / 61; Pulse 75; Resp 16; Pulse Ox 98% on R/A; Pain 0/10; kl 13:15 Body Mass Index 39.68 (101.60 kg, 160.02 cm) ld1 ED Course: 13:02 Patient arrived in ED. rg4 13:05 Chaz Grant, RN is Primary Nurse. bp 13:15 Patient has correct armband on for positive identification. Bed in low position. Call bp light in reach. Side rails up X2. Adult w/ patient. Client placed on continuous cardiac and pulse oximetry monitoring. NIBP monitoring applied. 13:17 Triage completed. ld1 13:17 Arm band placed on right wrist. ld1 13:19 Rosa M Thurman FNP-C [facility]. kb 13:19 Jonatan Jacinto DO is Attending Physician. kb 13:25 Inserted saline lock: 22 gauge in right forearm, using aseptic technique. Blood bp collected. 13:41 XRAY Chest (1 view) In Process Unspecified. EDMS 15:59 Kristopher Ayon MD is Hospitalizing Provider. kb 19:24 Primary Nurse role handed off by Chaz Grant, RN mw2 20:01 No provider procedures requiring assistance completed. Patient admitted, IV remains in kl place. Patient maintains SpO2 saturation greater than 95% on room air. Administered Medications: 16:21 Drug: ProTONIX (pantoprazole) 40 mg Route: IVP; Site: right forearm; iw 20:41 Follow up: Response: No adverse reaction as6 Medication: 20:02 VIS not applicable for this client. Outcome: 15:59 Decision to Hospitalize by Provider. kb 20:01 Admitted to Med/surg accompanied by nurse, room 210, with chart, Report called to sarina Briones RN 20:01 Condition: stable 20:01 Instructed on the need for admit, Demonstrated understanding of instructions. 20:41 Patient left the ED. as6 Signatures: Dispatcher [employer] EDMO Rosa M Thurman, CAREER TECHNICAL SUPERVISOR-C CAREER TECHNICAL SUPERVISOR-Ckb Cherie Aleman, RN Jeniffer Meneses, RN Imani Martin rg4 Lavell Luis RN RN jl7 Chaz Grant, RN RN Giselle Solis mw2 Miley Vera RN RN ld1 Brian Dewitt RN RN as6 Hallie Lucero, RN RN aa9 Corrections: (The following items were deleted from the chart) 17:52 17:52 BP 138 / 61; Pulse 74bpm; Resp 16bpm; Pulse Ox 97% RA; iw iw
[2021-09-22] MEDS ORDERED: PANTOPRAZOLE 40 MG INJ ONE (16:15)
[2021-09-22] MEDS ORDERED: ONDANSETRON 4 MG/2 ML VIAL IV PRN (20:00)
[2021-09-22] MEDS ORDERED: SODIUM CHLORIDE 0.9% 10ML INJ IV PRN (20:00)
--- NOTE | 2021-09-22 20:52 | P.HP ---
Certification for Inpatient Patient admitted to: Observation With expected LOS: <2 Midnights Patient will require the following post-hospital care: None Practitioner: I am a practitioner with admitting privileges, knowledge of patient current condition, hospital course, and medical plan of care. Services: Services provided to patient in accordance with Admission requirements found in Title 42 Section 412.3 of the Code of Federal Regulations Patient History Date of Service: 09/22/21 Reason for admission: Chest pain History of Present Illness: 80-year-old female with history of chronic diastolic congestive heart failure, CAD, insulin-dependent diabetes, hypertension and COPD presents the emergency department for chest pain. She reports intermittent chest/epigastric pain over the course of the last 1 week or so. She describes the pain primarily as burning/aching nonradiating. She was evaluated in the emergency department her labs were significant for mild worsening of CKD 3 initial troponin high- sensitivity negative EKG without ST elevations chest x-ray was significant for mild CHF pattern. On exam she has very mild lower extremity edema she reports about her normal level. She had a heart catheterization on 12/05/2020 with severe mid LAD stenosis at 2 different locations status post PCI, moderate left main stenosis by IVUS to be monitored with consideration for elective CSI atherectomy plus PCI in the future. Her most recent echocardiogram 08/21/2019 with grossly normal left ventricular size and function. ED provider wishes to admit under observation for ACS rule out. Allergies Sulfa (Sulfonamide Antibiotics) Allergy (Intermediate, Verified 12/01/20 16:18) Rash Home Medications: Aspirin 81 mg PO DAILY 05/19/19 Atorvastatin Calcium [Lipitor] 80 mg PO BEDTIME 05/19/19 Buspirone HCl [Buspar] 10 mg PO BID 05/19/19 Furosemide 40 mg PO DAILY 05/19/19 Gabapentin 800 mg PO TID 05/19/19 Insulin Aspart Prot/Insuln Asp [Novolog Mix 70-30 Flexpen] 50 units SQ DAILY AT SUPPER 05/19/19 Insulin Aspart Protam & Aspart [Novolog Mix 70-30 Vial] 80 units SQ BREAKFAST 05/19/19 Insulin Detemir [Levemir] 66 units SQ BEDTIME 05/19/19 Metformin HCl [Glucophage Xr] 500 mg PO BID 05/19/19 Nitroglycerin [Nitrostat*] 0.4 mg PO PRN PRN MDD 3 tab 05/19/19 Pantoprazole [Protonix Tab*] 40 mg PO DAILY 05/19/19 Sertraline HCl 50 mg PO DAILY 05/19/19 Tramadol HCl [Ultram] 50 mg PO TID PRN 05/19/19 Trazodone [Desyrel*] 50 mg PO BEDTIME 05/19/19 Brimonidine Tartrate/Timolol [Combigan 0.2%-0.5% Eye Drops] 5 drop LEFT EYE BEDTIME 05/22/19 Clopidogrel Bisulfate [Plavix*] 75 mg PO DAILY tablet 05/22/19 Fluticasone/Salmeterol [Advair 250-50 Diskus] 1 each IH Q12HR #60 blst.w.dev 05/22/19 Metoprolol Tartrate [Lopressor*] 50 mg PO BID #60 tab 05/22/19 Amlodipine [Norvasc*] 5 mg PO DAILY 08/21/19 Bimatoprost [Lumigan Opthalmic Drops*] 1 drop EACH EYE BID 08/21/19 Cefdinir [Omnicef] 300 mg PO BID #14 capsule 08/23/19 Ferrous Fumarate [Hemocyte] 324 mg PO DAILY #30 tablet 08/23/19 Potassium Chloride 10 meq PO DAILY #30 tablet.er 08/23/19 predniSONE [Deltasone*] 10 mg PO DAILY #7 tab 08/23/19 - Past Medical/Surgical History Diabetic: Yes -: Glaucoma -: CHF, diastolic dysfunction -: HTN -: GERD -: DM Neuropathy -: History of Colon CA -: Diabetes mellitus type 2 -: Fatty liver with Morbid Obesity -: CAD -: Cholecystectomy -: Colon resection -: Appendectomy -: Hysterectomy -: Right Rotator Cuff Repair -: Colectomy Psychosocial/ Personal History: She lives at home. Her daughter helps her at home. - Family History Mother -: Cancer Notes: colon Brother -: Hypertension Sister -: Heart disease, Hypertension, Lung disease, Cancer - Social History Smoking Status: Never smoker Alcohol use: No CD- Drugs: No Caffeine use: Yes Place of Residence: Home Review of Systems 10-point ROS is otherwise unremarkable Respiratory: SOB with Excertion Cardiovascular: Chest Pain Gastrointestinal: Abdominal Pain (Epigastric pain) Physical Examination - Physical Exam General: Alert, In no apparent distress, Oriented x3, Obese HEENT: Atraumatic, PERRLA, Mucous membr. moist/pink, EOMI, Sclerae nonicteric Neck: Supple, 2+ carotid pulse no bruit, No LAD, Without JVD or thyroid abnormality Respiratory: Clear to auscultation bilaterally, Normal air movement Cardiovascular: Regular rate/rhythm, Normal S1 S2 Gastrointestinal: Normal bowel sounds, Tenderness (Mild left upper quadrant/epigastric tenderness) Musculoskeletal: No tenderness Integumentary: No rashes Neurological: Normal speech, Normal strength at 5/5 x4 extr, Normal tone, Normal affect - Studies Laboratory Data (last 24 hrs) 09/22/21 13:25: PT 11.9, INR 1.08 09/22/21 13:25: WBC 10.0, Hgb 11.6 L, Hct 36.4, Plt Count 236 09/22/21 13:25: Sodium 135 L, Potassium 4.5, BUN 23 H, Creatinine 1.48 H, Glucose 221 H Assessment and Plan - Plan Assessment: Chest pain rule out ACS history CAD Chronic diastolic congestive heart failure Diabetes type 2insulin-dependent Hypertension CKD 3 COPD Plan: Chest pain rule out ACS history CAD: Monitor on telemetry, trend troponins, cardiology consult in place. Patient unsure of her medications but is for sure taking aspirin, Plavix these medications have been continued. Continue other medications as appropriate. Appreciate further input from cardiology. Pain possibly related to GERD she reports she does take medication at home but is unsure what it is we will treat with daily Protonix for the time being. Chronic diastolic congestive heart failure: Continue patient's home dose of Lasix at this time does not appear to be significantly overloaded. Appreciate further input from cardiology. Diabetes type 2insulin-dependent: Patient reports that she takes Levemir between 75 and 80 units in the morning will provide with long-acting insulin daily start at 50 units increase as necessary with sliding scale. Await med rec. Hypertension: Obtain and continue home medications as appropriate CKD 3: Mild worsening in GFR, baseline GFR appears to be between 45 and 50 currently 36. Will monitor with daily labs consult nephrology for worsening. Otherwise patient need to follow-up outpatient with her PCP/nephrology. COPD: As needed inhaler. DVT PPX: Lovenox Code status: Full Discharge Plan: Home Plan to discharge in: 24 Hours - Advance Directives Does patient have a Living Will: No Does patient have a Durable POA for Healthcare: No - Code Status/Comfort Care Code Status Assessed: Yes (Full code) Critical Care: No Time Spent Managing Pts Care (In Minutes): 70
[2021-09-22 21:56] VITALS: BMI 39.6
[2021-09-22] MEDS: INSULIN -REGULAR HUMAN 50 UNIT/0.5 ML ML SQ SCH (22:02)
[2021-09-23 01:16] VITALS: O2SAT 93
[2021-09-23] MEDS ORDERED: NITROGLYCERIN 0.4 MG/TAB SL PRN (04:24)
[2021-09-23] MEDS ORDERED: TRAMADOL HCL 50 MG TAB PO PRN (04:24)
[2021-09-23 05:50] LABS: Absolute Lymphocytes (CBC) 1.4 K/uL (0.7-4.9); MCV 85.4 fL (80-100); MPV 8.1 fL (7.6-11.3); RBC Red Blood Cell Count 3.87 M/uL (3.86-4.86)
[2021-09-23 06:11] LABS: Albumin 2.8 g/dL (3.4-5.0); Bilirubin Total 0.4 mg/dL (0.2-1.0); Protein, Total 6.8 g/dL (6.4-8.2); Troponin High Sensitivity 12.6 pg/mL (<58.9)
[2021-09-23] MEDS ORDERED: PANTOPRAZOLE 40MG TABLET PO SCH (06:30)
[2021-09-23] MEDS: INSULIN -REGULAR HUMAN 50 UNIT/0.5 ML ML SQ SCH ×2 (07:30→11:30)
[2021-09-23] MEDS ORDERED: ASPIRIN EC 81 MG TAB PO SCH (09:00)
[2021-09-23] MEDS ORDERED: GABAPENTIN 400 MG CAP PO SCH (09:00)
[2021-09-23] MEDS ORDERED: SPIRONOLACTONE 25 MG TABLET PO SCH (09:00)
[2021-09-23] MEDS ORDERED: INSULIN GLARGINE 100 UNIT/ML SQ SCH (09:00)
[2021-09-23] MEDS ORDERED: CLOPIDOGREL 75 MG TABLET PO SCH (09:00)
[2021-09-23] MEDS ORDERED: ENOXAPARIN 30 MG/0.3 ML SQ SCH (09:00)
[2021-09-23] MEDS ORDERED: FUROSEMIDE 40 MG TABLET PO SCH (09:00)
[2021-09-23] MEDS ORDERED: BIMATOPROST OPHTH DROPS/2.5 ML BTL OPTH SCH (09:00)
[2021-09-23] MEDS ORDERED: SERTRALINE HCL 50 MG TAB PO SCH (09:00)
[2021-09-23] MEDS ORDERED: PANTOPRAZOLE 40 MG INJ IVP SCH (09:00)
--- NOTE | 2021-09-23 11:09 | EKG ---
Test Date: 2021-09-22 Test Time: 13:14:27 Chainer: MITCHEL MEASUREMENT RESULTS: Intervals: Rate: 89 [place]: 258 QRSD: 94 QT: 370 QTc: 450 [place]: P: 12 [place]: 258 QRS: 23 T: 15 INTERPRETIVE STATEMENTS: Sinus rhythm with 1st degree AV block Nonspecific ST and T wave abnormality Abnormal ECG Compared to ECG 12/01/2020 15:40:14 ST (T wave) deviation now present Myocardial infarct finding no longer present Electronically Signed On 09-23-21 11:06:45 CDT by Ean Beavers
--- NOTE | 2021-09-23 12:09 | ECHO ---
HEIGHT: 5 ft 3 in WEIGHT: 223 lb 15.834 oz DATE OF STUDY: 09/23/[address]: Kristopher Ayon 2-DIMENSIONAL: YES M.MODE: YES DOPPLER: YES COLOR FLOW: YES TDS: NO PORTABLE: YES DEFINITY: NO BUBBLE STUDY: NO DIAGNOSIS: CONGESTIVE HEART FAILURE CARDIAC HISTORY: CATHERIZATION: YES SURGERY: NO PROSTHETIC VALVE: NO PACEMAKER: NO MEASUREMENTS (cm) DIASTOLIC (NORMALS) SYSTOLIC (NORMALS) IVSd 1.0 (0.6-1.2) LA Diam 3.2 (1.9-4.0) LVEF 57% LVIDd 3.0 (3.5-5.7) LVIDs 2.1 (2.0-3.5) %FS 29% LVPWd 1.1 (0.6-1.2) Ao Diam 2.2 (2.0-3.7) 2 DIMENSIONAL ASSESSMENT: RIGHT ATRIUM: NORMAL LEFT ATRIUM: NORMAL RIGHT VENTRICLE: NORMAL LEFT VENTRICLE: NORMAL TRICUSPID VALVE: NORMAL MITRAL VALVE: MILD MITRAL REGURGITATION PULMONIC VALVE: NORMAL AORTIC VALVE: NORMAL PERICARDIAL EFFUSION: NONE AORTIC ROOT: NORMAL LEFT VENTRICULAR WALL MOTION: NORMAL. DOPPLER/COLOR FLOW: MILD MITRAL REGURGITATION. COMMENTS: NORMAL LEFT VENTRICULAR EJECTION FRACTION 55-60%. NORMAL WALL MOTION. MODERATE DIASTOLIC DYSFUNCTION. TECHNOLOGIST: MICHAEL FELDER
[2021-09-23 13:12] VITALS: BP 135/50; TEMP 97.3
--- NOTE | 2021-09-23 13:30 | P.DS ---
Admission Date: 09/22/21 Discharge Date: 09/23/21 Primary Care Provider: Dr. Cormier Disposition: ROUTINE DISCHARGE Discharge Condition: GOOD Reason for Admission: Chest pain Consultations: 1. Cardiology - Problems (1) Acute on chronic diastolic (congestive) heart failure Onset Date: 02/18/17 Current Visit: No Status: Acute (2) Chest pain Onset Date: 07/26/16 Current Visit: No Status: Acute Qualifiers: Chest pain type: chest pain on breathing Qualified Code(s): R07.1 - Chest pain on breathing; R07.81 - Pleurodynia (3) COPD (chronic obstructive pulmonary disease) Onset Date: 06/16/17 Current Visit: No Status: Chronic Qualifiers: (4) Depression Onset Date: 06/13/17 Current Visit: No Status: Chronic Qualifiers: (5) Diabetes mellitus Onset Date: 06/13/17 Current Visit: No Status: Chronic Qualifiers: Diabetes mellitus type: type 2 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 Gloria Longoria is a pleasant 80 year old female with a past medical history significant for chronic diastolic congestive heart failure, coronary artery d isease, insulin-dependent diabetes, hypertension and chronic obstructive pulmonary disease who was admitted to the [facility] on 09/22/2021 for chest pain. Upon further evaluation, her vital signs were stable. Her HS troponin trend was 9.4 -> 10.8 -> 12.6. EKG revealed, nonspecific ST and T wave abnormality. Her chest x-ray revealed, "mild interstitial pulmonary edema." Her transthoracic echocardiogram revealed, "normal left ventricular ejection fraction 55-60%. Normal wall motion. Moderate diastolic dysfunction." Cardiology was consulted and Dr. Beavers (her outpatient butcher chicken and fish) saw her and cleared her for discharge with an outpatient stress test. She is currently chest pain free and is in agreement with this plan. On 09/23/2021, she was seen on morning rounds and deemed medically stable for discharge. She was discharged with instructions to schedule follow-up appointments with her PCP in 3-5 days and with Cardiology (Dr. Beavers) in 5-7 days. She and her family members were given the opportunity to ask questions and reported no further questions. Furthermore, all questions were answered to the best of my ability. Today, I personally spent 25 minutes with Ms. Longoria, of which greater than 50% of the time was spent in patient education, counseling, and coordination of care as described above. Vital Signs/Physical Exam: Temp Pulse Resp BP Pulse Ox 97.3 F 81 18 135/50 L 97 09/23/21 12:00 09/23/21 12:00 09/23/21 12:00 09/23/21 12:00 09/23/21 12:00 General: Alert, In no apparent distress, Oriented x3 HEENT: Atraumatic, Mucous membr. moist/pink Neck: Supple, Without JVD or thyroid abnormality Respiratory: Clear to auscultation bilaterally, Normal air movement Cardiovascular: Regular rate/rhythm, Normal S1 S2, No gallops, No rubs, No murmurs, Edema (trace-1+) Gastrointestinal: Normal bowel sounds, Soft and benign, No tenderness, No rebound, No guarding Musculoskeletal: No clubbing, No swelling Integumentary: No rashes Neurological: Normal speech, Normal tone, Normal affect Laboratory Data at Discharge: WBC 8.1 K/uL (4.3-10.9) D 09/23/21 05:41 Hgb 10.9 g/dL (12.0-15.0) L 09/23/21 05:41 Hct 33.0 % (36.0-45.0) L 09/23/21 05:41 Plt Count 209 K/uL (152-406) 09/23/21 05:41 PT 11.9 SECONDS (9.5-12.5) 09/22/21 13:25 INR 1.08 09/22/21 13:25 Sodium 139 mmol/L (136-145) 09/23/21 05:41 Potassium 4.0 mmol/L (3.5-5.1) 09/23/21 05:41 BUN 19 mg/dL (7-18) H 09/23/21 05:41 Creatinine 1.15 mg/dL (0.55-1.3) 09/23/21 05:41 Glucose 192 mg/dL (74-106) H 09/23/21 05:41 Total Bilirubin 0.4 mg/dL (0.2-1.0) 09/23/21 05:41 AST 13 U/L (15-37) L 09/23/21 05:41 ALT 15 U/L (12-78) 09/23/21 05:41 Alkaline Phosphatase 99 U/L (45-117) 09/23/21 05:41 Home Medications: Aspirin 81 mg PO DAILY 05/19/19 Furosemide 40 mg PO DAILY 05/19/19 Gabapentin 800 mg PO BID 05/19/19 Insulin Aspart Prot/Insuln Asp [Novolog Mix 70-30 Flexpen] 50 units SQ DAILY AT SUPPER 05/19/19 Insulin Aspart Protam & Aspart [Novolog Mix 70-30 Vial] 80 units SQ BREAKFAST 05/19/19 Insulin Detemir [Levemir] 66 units SQ BEDTIME 05/19/19 Metformin HCl [Glucophage Xr] 500 mg PO BID 05/19/19 Nitroglycerin [Nitrostat*] 0.4 mg SL PRN PRN MDD 3 tab 05/19/19 Pantoprazole [Protonix Tab*] 40 mg PO DAILY 05/19/19 Sertraline HCl 50 mg PO DAILY 05/19/19 Tramadol HCl [Ultram] 50 mg PO BID PRN 05/19/19 Trazodone [Desyrel*] 50 mg PO BEDTIME 05/19/19 Fluticasone/Salmeterol [Advair 250-50 Diskus] 1 each IH Q12HR #60 blst.w.dev 05/22/19 Amlodipine [Norvasc*] 5 mg PO BEDTIME 08/21/19 Bimatoprost [Lumigan Opthalmic Drops*] 1 drop EACH EYE BID 08/21/19 Ferrous Fumarate [Hemocyte] 324 mg PO DAILY #30 tablet 08/23/19 Magnesium Oxide 400 mg PO DAILY 09/22/21 Rosuvastatin Calcium [Crestor] 40 mg PO BEDTIME 09/22/21 Spironolactone [Aldactone] 25 mg PO BID 09/22/21 Diet: Low sodium Activity: Ad emma Followup: Addie Cormier DO [Primary Care Provider] - Ean Beavers MD [ACTIVE - CAN ADMIT] -
--- NOTE | 2021-09-23 16:02 | CON ---
Date of Consultation: 09/23/2021 Reason For Consultation: Chest pain. History Of Present Illness: A 80-year-old with history of diastolic heart failure, coronary artery d isease, diabetes, COPD, presented to the emergency room with chest pain and epigastric pain on and of f for the past week. Pain is aching and burning in sensation, not radiating, and not related to exer tion. The patient since hospitalization has been chest pain free. She apparently is status post PCI of mid LAD back in November 2020. At the present time, she is chest pain free. Past Medical History: As outlined above in the HPI. Medications: Refer to reconciliation sheet for detailed sheet. Allergies: SULFA. Family History: No premature coronary artery disease or cancer. Social History: She does not smoke or drink. Does not use any drugs. Review of Systems: All systems reviewed and they were negative except for what mentioned in HPI. Physical Examination: Vital Signs: Reviewed. Head and Neck: Pupils are equal, reactive to light. Intact eye movements. No JVD. No cervical lym phadenopathy. Neck is supple. Thyroid is not enlarged. Lungs: Clear to auscultation bilaterally. No rhonchi, wheezing, or crackles. No accessory muscle u se. Heart: Regular rate and rhythm. No extra sounds. Abdomen: Soft, nontender. Bowel sounds positive. No organomegaly. No masses or hernia. No rigidi ty or rebound. Extremities: No clubbing or cyanosis. Intact pulses. Skin: No rash. Neurologic: Alert, awake, oriented x3. No acute focal deficits appreciated. Investigations: Hemoglobin is 10.2, white blood cell count is 8.1. Troponins x3 are negative and cr eatinine is 1.15. Assessment And Recommendations: 1.Chest pain, atypical pain. Cardiac enzymes are negative. She has been chest pain free. From Car diovascular standpoint, okay to discharge the patient and I will set her up for an exercise nuclear s tress test early next week and we will obtain echocardiogram as well both as an outpatient. 2.Coronary artery disease, well known. Plan for outpatient stress test and echocardiogram as outlin ed above. /GEORGETTE Voice ID: [id number] Report ID: [id number]
[2021-09-23] MEDS ORDERED: TRAZODONE 50 MG TABLET PO SCH (21:00)
[2021-09-23] MEDS ORDERED: AMLODIPINE 5 MG TAB PO SCH (21:00)
[2021-09-23] MEDS ORDERED: ROSUVASTATIN 10 MG TAB PO SCH (21:00)
[2021-09-24] MEDS ORDERED: ENOXAPARIN 40 MG/0.4 ML SQ SCH (09:00)
== END 2021-09-23 14:20 | disposition home or self-care (01) ==
LOC: ER 13:01 → ERHOLD 18:36 → 2ND 19:43
PROVIDERS: ADMIT Internal Medicine; ATTEND Internal Medicine
DX: R07.89 Other chest pain (principal); I25.10 Atherosclerotic heart disease of native coronary artery without angina pectoris; I13.0 Hypertensive heart and chronic kidney disease with heart failure and stage 1 through stage 4 chronic kidney disease, or unspecified chronic kidney disease; I50.32 Chronic diastolic (congestive) heart failure; N18.30 Chronic kidney disease, stage 3 unspecified; E11.22 Type 2 diabetes mellitus with diabetic chronic kidney disease; J44.9 Chronic obstructive pulmonary disease, unspecified; E11.40 Type 2 diabetes mellitus with diabetic neuropathy, unspecified; K21.9 Gastro-esophageal reflux disease without esophagitis; H40.9 Unspecified glaucoma; K76.0 Fatty (change of) liver, not elsewhere classified; F32.A Depression, unspecified; E66.01 Morbid (severe) obesity due to excess calories; Z68.39 Body mass index [BMI] 39.0-39.9, adult; Z98.61 Coronary angioplasty status; Z79.4 Long term (current) use of insulin; Z79.84 Long term (current) use of oral hypoglycemic drugs; Z79.82 Long term (current) use of aspirin; Z79.899 Other long term (current) drug therapy; Z88.2 Allergy status to sulfonamides; Z90.49 Acquired absence of other specified parts of digestive tract; Z90.710 Acquired absence of both cervix and uterus; Z85.038 Personal history of other malignant neoplasm of large intestine; Z20.822 Contact with and (suspected) exposure to COVID-19; Z82.49 Family history of ischemic heart disease and other diseases of the circulatory system; Z80.0 Family history of malignant neoplasm of digestive organs
CPT/HCPCS: 93005; 93306; 85025 ×2; 80048; 36415; 85610; 82947 ×3; 84484 ×3; 80053; 83880; 71045; U0003; J1815 ×2; C9113; J1650; G0378 ×3; 96374; 99285

== ENCOUNTER 2022-01-05 10:52 | Observation (INO) | payer MEDICARE, OTHER ==
--- OUTSIDE RECORDS SUMMARY | 2022-01-05 10:59 | XMS REPORT | Continuity of Care Document ---
:1940 Author Organization [facility] t Address [address] [place] [address] Care Team Providers Name Role Phone Addie Cormier Attending Clinician Unavailable ASTRID WOODY Attending Clinician Unavailable Miller_S_AH Attending Clinician Unavailable Curly-Mbayo_A_AH Attending Clinician Unavailable ASTRID WOODY Admitting Clinician Unavailable Miller_S_AH Admitting Clinician Unavailable Gypsyayo_A_AH Admitting Clinician Unavailable Payers Payer Name Policy Type Policy Number Effective Date Expiration Date [facility] [id number] 2020 00:00:00 [facility] 53 [id number] 2021 [facility] ADVANTAGE 00:00:00 - 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 coronary and graft [facility] angioplast Center y [id number] Need for Problem Comm on assistance Spirit due to - [facility] unsteady [facility] [id number] Constipati Problem Com mon on, Spirit unspecifie - [facility] d [facility] constipati [facility] on [facility] [id number] Chronic Problem Common bronchitis Spirit , - [facility] unspecifie [facility] chronic [facility] bronchitis Medica l type Center [id number] Gastroesop Problem Co mmon hageal [facility] reflux [facility], [facility] Medica l not Center specified [id number] Essential Problem Comm on hypertensi Spirit on - [facility] [id number] Mixed Problem Common hyperlipid Spirit emia - [facility] [id number] Lymphedema Problem C ommon [id number] of both Spirit lower - [facility] extremitie [facility] [id number] Iron Problem Common deficiency Spirit anemia, - [facility] unspecifie [facility] iron 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 [id number] Severe Problem Common major [facility] depression - [facility] [id number] Depression Problem Co mmon with Spirit anxiety - [facility] [id number] Anxiety Problem Common [facility] [id number] Primary Problem Commo n osteoarthr Spirit itis of - [facility] both knees [facility] [id number] Obstructiv Problem Com mon e sleep [facility] apnea - [facility] syndrome [facility] [id number] Hypokalemi Problem Com mon a [facility] [id number] 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 insulin [facility] [id number] Type 2 Problem Common diabetes [facility] mellitus [facility] [id number] History of Problem Co mmon glaucoma [facility] Allergies, Adverse Reactions, Alerts Allergy Allergy Status Severity Reaction(s) Onset Inactive Treating Comm ents Source Name Type Date Date Clinician Sulfa DA Active [facility] (Sulfona 7-25 [place] mide 00:00: d Antibiot 00 Medical ics) Center NO KNOWN Allergy Active [facility] Social History Social Habit Start Date Stop Date Quantity Comments Source History of Tobacco Use Co mmon [facility] Sex Assigned At Com mon [facility] Smoking Status Start Date Stop Date Source Never Smoker Common [facility] Medications Ordered Filled Start Stop Current Ordering Indication Dosage Frequency Signature Comments Components Source Medication Medication Date Date Medication? Clinician (SIG) Name Name Novojudy Novofine No Novofine Pen Needle Pen Needle 9-22 Pen Needle 32G X 6 MM 32G X 6 MM 00:00: 32G X 6 MM 00 Pregabalin Pregabalin No 1{capsu BID Pregabalin 75 MG 75 MG 12-10 le} 75 MG 00:00: 00 Novofine Novofine 0 No Novofine Pen Needle Pen Needle 9-22 Pen Needle 32G X 6 MM 32G X 6 MM 00:00: 32G X 6 MM 00 Pregabalin Pregabalin No 1{capsu BID Pregabalin 75 MG 75 MG 12-10 le} 75 MG 00:00: 00 Novofine Novofine 0 No Novofine Pen Needle Pen Needle 9-22 Pen Needle 32G X 6 MM 32G X 6 MM 00:00: 32G X 6 MM 00 Pregabalin Pregabalin 0 No 1{capsu BID Pregabalin 75 MG 75 MG 12-10 le} 75 MG 00:00: 00 HumaLOG HumaLOG 2022-0 No HumaLOG KwikPen 200 KwikPen 200 2-04 KwikPen UNIT/ML UNIT/ML 00:00: 200 00 UNIT/ML HumaLOG HumaLOG 2022-0 No HumaLOG KwikPen 200 KwikPen 200 2-04 KwikPen UNIT/ML UNIT/ML 00:00: 200 00 UNIT/ML HumaLOG HumaLOG 2022-0 No HumaLOG KwikPen 200 KwikPen 200 2-04 KwikPen UNIT/ML UNIT/ML 00:00: 200 00 UNIT/ML HumaLOG HumaLOG 2022-0 No HumaLOG KwikPen 200 KwikPen 200 2-04 KwikPen UNIT/ML UNIT/ML 00:00: 200 00 UNIT/ML HumaLOG HumaLOG 2022-0 No HumaLOG KwikPen 200 KwikPen 200 2-04 KwikPen UNIT/ML UNIT/ML 00:00: 200 00 UNIT/ML HumaLOG HumaLOG 2022-0 No HumaLOG KwikPen 200 KwikPen 200 2-04 KwikPen UNIT/ML UNIT/ML 00:00: 200 00 UNIT/ML HumaLOG HumaLOG 2022-0 No HumaLOG KwikPen 200 KwikPen 200 2-04 KwikPen UNIT/ML UNIT/ML 00:00: 200 00 UNIT/ML HumaLOG HumaLOG 2022-0 No HumaLOG KwikPen 200 KwikPen 200 2-04 KwikPen UNIT/ML UNIT/ML 00:00: 200 00 UNIT/ML HumaLOG HumaLOG 2022-0 No HumaLOG KwikPen 200 KwikPen 200 2-04 KwikPen UNIT/ML UNIT/ML 00:00: 200 00 UNIT/ML HumaLOG HumaLOG 2022-0 No HumaLOG KwikPen 200 KwikPen 200 2-04 KwikPen UNIT/ML UNIT/ML 00:00: 200 00 UNIT/ML HumaLOG HumaLOG 2022-0 No HumaLOG KwikPen 200 KwikPen 200 2-04 KwikPen UNIT/ML UNIT/ML 00:00: 200 00 UNIT/ML HumaLOG HumaLOG 2022-0 No HumaLOG KwikPen 200 KwikPen 200 2-04 KwikPen UNIT/ML UNIT/ML 00:00: 200 00 UNIT/ML HumaLOG HumaLOG 2022-0 No HumaLOG KwikPen 200 KwikPen 200 2-04 KwikPen UNIT/ML UNIT/ML 00:00: 200 00 UNIT/ML NovoFine NovoFine 2020- No 6xD NovoFine Plus Pen Plus Pen 0-01 Plus Pen Needle 32G Needle 32G 00:00: Needle 32G X 4 MM X 4 MM 00 X 4 MM guaiFENesin guaiFENesin 2020-03 No 5{ml} QID guaiFENesi -Codeine -Codeine 0-01 n-Codeine 100-10 100-10 00:00: 100-10 MG/5ML MG/5ML 00 MG/5ML guaiFENesin guaiFENesin 2020- No 5{ml} QID guaiFENesi -Codeine -Codeine 0-01 n-Codeine 100-10 100-10 00:00: 100-10 MG/5ML MG/5ML 00 MG/5ML guaiFENesin guaiFENesin 2020- No 5{ml} QID guaiFENesi -Codeine -Codeine 0-01 n-Codeine 100-10 100-10 00:00: 100-10 MG/5ML MG/5ML 00 MG/5ML guaiFENesin guaiFENesin 2020- No 5{ml} QID guaiFENesi -Codeine -Codeine 0-01 n-Codeine 100-10 100-10 00:00: 100-10 MG/5ML MG/5ML 00 MG/5ML guaiFENesin guaiFENesin 2020- No 5{ml} QID guaiFENesi -Codeine -Codeine 0-01 n-Codeine 100-10 100-10 00:00: 100-10 MG/5ML MG/5ML 00 MG/5ML guaiFENesin guaiFENesin 2020-1 No 5{ml} QID guaiFENesi -Codeine -Codeine 0-01 n-Codeine 100-10 100-10 00:00: 100-10 MG/5ML MG/5ML 00 MG/5ML Lidocaine 5 Lidocaine 5 2020-0 No BID Lidocaine % % 7-09 5 % 00:00: 00 Lidocaine 5 Lidocaine 5 2020-0 No BID Lidocaine % % 7-09 5 % 00:00: 00 Lidocaine 5 Lidocaine 5 2020-0 No BID Lidocaine % % 7-09 5 % 00:00: 00 Lidocaine 5 Lidocaine 5 2020-0 No BID Lidocaine % % 7-09 5 % 00:00: 00 Lidocaine 5 Lidocaine 5 2020-0 No BID Lidocaine % % 7-09 5 % 00:00: 00 Lidocaine 5 Lidocaine 5 2020-0 No BID Lidocaine % % 7-09 5 % 00:00: 00 Combigan Combigan No Combigan 0.2-0.5 % 0.2-0.5 % 0.2-0.5 % Clopidogrel Clopidogrel No 1{table QD Clopidogre Bisulfate Bisulfate t} l 75 MG 75 MG Bisulfate 75 MG Metoclopram Metoclopram No 1{table TID Metoclopra mateus HCl 5 mateus HCl 5 t_befor mide HCl 5 MG MG e_meals MG } Nitroglycer Nitroglycer No Nitroglyce in 0.4 MG in 0.4 MG rin 0.4 MG Pantoprazol Pantoprazol No Pantoprazo e Sodium 40 e Sodium 40 le Sodium MG MG 40 MG Lumigan Lumigan No 1{drop_ QD Lumigan 0.01 % 0.01 % into_af 0.01 % fected_ eye_in_ the_eve daron} NovoFine NovoFine No 6xD NovoFine Plus Pen Plus Pen Plus Pen Needle 32G Needle 32G Needle 32G X 4 MM X 4 MM X 4 MM Spironolact Spironolact No 1{table BID Spironolac one 25 MG one 25 MG t} tone 25 MG Advair Advair No 1{puff} BID Advair Diskus Diskus Diskus 250-50 250-50 250-50 MCG/DOSE MCG/DOSE MCG/DOSE Levemir Levemir No Levemir FlexTouch FlexTouch FlexTouch 100 unit/mL 100 unit/mL 100 unit/mL Magnesium Magnesium No 1{capsu QD Magnesium 400 MG 400 MG le_with 400 MG _a_meal } amLODIPine amLODIPine No 1{table QD amLODIPine Besylate 10 Besylate 10 t} Besylate MG MG 10 MG Aspirin 81 Aspirin 81 No 1{table QD Aspirin 81 MG MG t} MG Gabapentin Gabapentin No 1{table TID Gabapentin 600 MG 600 MG t} 600 MG Furosemide Furosemide No 1{table QD Furosemide 40 MG 40 MG t} 40 MG Rosuvastati Rosuvastati No 1{table QD Rosuvastat n Calcium n Calcium t} in Calcium 40 MG 40 MG 40 MG Sertraline Sertraline No 1{table QD Sertraline HCl 100 MG HCl 100 MG t} HCl 100 MG Carvedilol Carvedilol No 1{table BID Carvedilol 25 MG 25 MG t_with_ 25 MG food} Sertraline Sertraline No 1{table QD Sertraline HCl 100 MG HCl 100 MG t} HCl 100 MG Levemir Levemir No Levemir FlexTouch FlexTouch FlexTouch 100 unit/mL 100 unit/mL 100 unit/mL Magnesium Magnesium No 1{capsu QD Magnesium 400 MG 400 MG le_with 400 MG _a_meal } Combigan Combigan No Combigan 0.2-0.5 % 0.2-0.5 % 0.2-0.5 % Pantoprazol Pantoprazol No Pantoprazo e Sodium 40 e Sodium 40 le Sodium MG MG 40 MG Metoclopram Metoclopram No 1{table TID Metoclopra mateus HCl 5 mateus HCl 5 t_befor mide HCl 5 MG MG e_meals MG } Nitroglycer Nitroglycer No Nitroglyce in 0.4 MG in 0.4 MG rin 0.4 MG traZODone traZODone No traZODone HCl 50 MG HCl 50 MG HCl 50 MG NovoFine NovoFine No 6xD NovoFine Plus Pen Plus Pen Plus Pen Needle 32G Needle 32G Needle 32G X 4 MM X 4 MM X 4 MM traMADol traMADol No 1{table traMADol HCl 50 MG HCl 50 MG t_as_ne HCl 50 MG eded} Clopidogrel Clopidogrel No 1{table QD Clopidogre Bisulfate Bisulfate t} l 75 MG 75 MG Bisulfate 75 MG amLODIPine amLODIPine No 1{table QD amLODIPine Besylate 10 Besylate 10 t} Besylate MG MG 10 MG Gabapentin Gabapentin No 1{table TID Gabapentin 600 MG 600 MG t} 600 MG Rosuvastati Rosuvastati No 1{table QD Rosuvastat n Calcium n Calcium t} in Calcium 40 MG 40 MG 40 MG Lumigan Lumigan No 1{drop_ QD Lumigan 0.01 % 0.01 % into_af 0.01 % fected_ eye_in_ the_eve daron} Aspirin 81 Aspirin 81 No 1{table QD Aspirin 81 MG MG t} MG metFORMIN metFORMIN No 2{table BID metFORMIN HCl 500 MG HCl 500 MG t_with_ HCl 500 MG a_meal} Furosemide Furosemide No 1{table QD Furosemide 40 MG 40 MG t} 40 MG Spironolact Spironolact No 1{table BID Spironolac one 25 MG one 25 MG t} tone 25 MG Advair Advair No 1{puff} BID Advair Diskus Diskus Diskus 250-50 250-50 250-50 MCG/DOSE MCG/DOSE MCG/DOSE Combigan Combigan No Combigan 0.2-0.5 % 0.2-0.5 % 0.2-0.5 % Carvedilol Carvedilol No 1{table BID Carvedilol 25 MG 25 MG t_with_ 25 MG food} Levemir Levemir No Levemir FlexTouch FlexTouch FlexTouch 100 unit/mL 100 unit/mL 100 unit/mL traMADol traMADol No 1{table traMADol HCl 50 MG HCl 50 MG t_as_ne HCl 50 MG eded} Spironolact Spironolact No Spironolac one 25 MG one 25 MG tone 25 MG Pantoprazol Pantoprazol No Pantoprazo e Sodium 40 e Sodium 40 le Sodium MG MG 40 MG Metoclopram Metoclopram No 1{table TID Metoclopra mateus HCl 5 mateus HCl 5 t_befor mide HCl 5 MG MG e_meals MG } Nitroglycer Nitroglycer No Nitroglyce in 0.4 MG in 0.4 MG rin 0.4 MG traZODone traZODone No traZODone HCl 50 MG HCl 50 MG HCl 50 MG Lumigan Lumigan No 1{drop_ QD Lumigan 0.01 % 0.01 % into_af 0.01 % fected_ eye_in_ the_eve daron} NovoFine NovoFine No 6xD NovoFine Plus Pen Plus Pen Plus Pen Needle 32G Needle 32G Needle 32G X 4 MM X 4 MM X 4 MM Clopidogrel Clopidogrel No 1{table QD Clopidogre Bisulfate Bisulfate t} l 75 MG 75 MG Bisulfate 75 MG Advair Advair No 1{puff} BID Advair Diskus Diskus Diskus 250-50 250-50 250-50 MCG/DOSE MCG/DOSE MCG/DOSE Gabapentin Gabapentin No 1{table TID Gabapentin 600 MG 600 MG t} 600 MG Magnesium Magnesium No 1{capsu QD Magnesium 400 MG 400 MG le_with 400 MG _a_meal } amLODIPine amLODIPine No 1{table QD amLODIPine Besylate 10 Besylate 10 t} Besylate MG MG 10 MG Aspirin 81 Aspirin 81 No 1{table QD Aspirin 81 MG MG t} MG metFORMIN metFORMIN No 2{table BID metFORMIN HCl 500 MG HCl 500 MG t_with_ HCl 500 MG a_meal} Furosemide Furosemide No 1{table QD Furosemide 40 MG 40 MG t} 40 MG Rosuvastati Rosuvastati No 1{table QD Rosuvastat n Calcium n Calcium t} in Calcium 40 MG 40 MG 40 MG Sertraline Sertraline No 1{table QD Sertraline HCl 100 MG HCl 100 MG t} HCl 100 MG Combigan Combigan No Combigan 0.2-0.5 % 0.2-0.5 % 0.2-0.5 % amLODIPine amLODIPine No 1{table QD amLODIPine Besylate 10 Besylate 10 t} Besylate MG MG 10 MG Magnesium Magnesium No 1{capsu QD Magnesium 400 MG 400 MG le_with 400 MG _a_meal } traZODone traZODone No 1{table QD traZODone HCl 50 MG HCl 50 MG t_at_be HCl 50 MG dtime_a s_neede d} Pantoprazol Pantoprazol No Pantoprazo e Sodium 40 e Sodium 40 le Sodium MG MG 40 MG Furosemide Furosemide No 1{table QD Furosemide 40 MG 40 MG t} 40 MG Levemir Levemir No Levemir FlexTouch FlexTouch FlexTouch 100 unit/mL 100 unit/mL 100 unit/mL Aspirin 81 Aspirin 81 No 1{table QD Aspirin 81 MG MG t} MG Spironolact Spironolact No Spironolac one 25 MG one 25 MG tone 25 MG Lumigan Lumigan No 1{drop_ QD Lumigan 0.01 % 0.01 % into_af 0.01 % fected_ eye_in_ the_eve daron} metFORMIN metFORMIN No 2{table BID metFORMIN HCl 500 MG HCl 500 MG t_with_ HCl 500 MG a_meal} traZODone traZODone No traZODone HCl 50 MG HCl 50 MG HCl 50 MG Advair Advair No 1{puff} BID Advair Diskus Diskus Diskus 250-50 250-50 250-50 MCG/DOSE MCG/DOSE MCG/DOSE Carvedilol Carvedilol No 1{table BID Carvedilol 25 MG 25 MG t_with_ 25 MG food} Levemir Levemir No BID Levemir FlexTouch FlexTouch FlexTouch 100 UNIT/ML 100 UNIT/ML 100 UNIT/ML Sertraline Sertraline No 1{table QD Sertraline HCl 100 MG HCl 100 MG t} HCl 100 MG Gabapentin Gabapentin No 1{table TID Gabapentin 600 MG 600 MG t} 600 MG Clopidogrel Clopidogrel No 1{table QD Clopidogre Bisulfate Bisulfate t} l 75 MG 75 MG Bisulfate 75 MG traMADol traMADol No 1{table traMADol HCl 50 MG HCl 50 MG t_as_ne HCl 50 MG eded} Nitroglycer Nitroglycer No Nitroglyce in 0.4 MG in 0.4 MG rin 0.4 MG Metoclopram Metoclopram No 1{table TID Metoclopra mateus HCl 5 mateus HCl 5 t_befor mide HCl 5 MG MG e_meals MG } Rosuvastati Rosuvastati No 1{table QD Rosuvastat n Calcium n Calcium t} in Calcium 40 MG 40 MG 40 MG Furosemide Furosemide No 1{table QD Furosemide 40 MG 40 MG t} 40 MG Pantoprazol Pantoprazol No Pantoprazo e Sodium 40 e Sodium 40 le Sodium MG MG 40 MG Magnesium Magnesium No 1{capsu QD Magnesium 400 MG 400 MG le_with 400 MG _a_meal } Lumigan Lumigan No 1{drop_ QD Lumigan 0.01 % 0.01 % into_af 0.01 % fected_ eye_in_ the_eve daron} Spironolact Spironolact No Spironolac one 25 MG one 25 MG tone 25 MG Advair Advair No 1{puff} BID Advair Diskus Diskus Diskus 250-50 250-50 250-50 MCG/DOSE MCG/DOSE MCG/DOSE metFORMIN metFORMIN No 2{table BID metFORMIN HCl 500 MG HCl 500 MG t_with_ HCl 500 MG a_meal} Metoclopram Metoclopram No 1{table TID Metoclopra mateus HCl 5 mateus HCl 5 t_befor mide HCl 5 MG MG e_meals MG } Aspirin 81 Aspirin 81 No 1{table QD Aspirin 81 MG MG t} MG Levemir Levemir No BID Levemir FlexTouch FlexTouch FlexTouch 100 UNIT/ML 100 UNIT/ML 100 UNIT/ML Clopidogrel Clopidogrel No 1{table QD Clopidogre Bisulfate Bisulfate t} l 75 MG 75 MG Bisulfate 75 MG amLODIPine amLODIPine No 1{table QD amLODIPine Besylate 10 Besylate 10 t} Besylate MG MG 10 MG Sertraline Sertraline No 1{table QD Sertraline HCl 100 MG HCl 100 MG t} HCl 100 MG Levemir Levemir No Levemir FlexTouch FlexTouch FlexTouch 100 unit/mL 100 unit/mL 100 unit/mL Combigan Combigan No Combigan 0.2-0.5 % 0.2-0.5 % 0.2-0.5 % traMADol traMADol No 1{table traMADol HCl 50 MG HCl 50 MG t_as_ne HCl 50 MG eded} traZODone traZODone No traZODone HCl 50 MG HCl 50 MG HCl 50 MG Rosuvastati Rosuvastati No 1{table QD Rosuvastat n Calcium n Calcium t} in Calcium 40 MG 40 MG 40 MG Carvedilol Carvedilol No 1{table BID Carvedilol 25 MG 25 MG t_with_ 25 MG food} Nitroglycer Nitroglycer No Nitroglyce in 0.4 MG in 0.4 MG rin 0.4 MG traZODone traZODone No 1{table QD traZODone HCl 50 MG HCl 50 MG t_at_be HCl 50 MG dtime_a s_neede d} Levemir Levemir Yes Na Cormier inject 66 C ommon FlexTouch FlexTouch units Spir it every - [facility] night as [facility] Combigan Combigan No Combigan 0.2-0.5 % 0.2-0.5 % 0.2-0.5 % amLODIPine amLODIPine No 1{table QD amLODIPine Besylate 10 Besylate 10 t} Besylate MG MG 10 MG Magnesium Magnesium No 1{capsu QD Magnesium 400 MG 400 MG le_with 400 MG _a_meal } traZODone traZODone No 1{table QD traZODone HCl 50 MG HCl 50 MG t_at_be HCl 50 MG dtime_a s_neede d} Pantoprazol Pantoprazol No Pantoprazo e Sodium 40 e Sodium 40 le Sodium MG MG 40 MG Furosemide Furosemide No 1{table QD Furosemide 40 MG 40 MG t} 40 MG Levemir Levemir No Levemir FlexTouch FlexTouch FlexTouch 100 unit/mL 100 unit/mL 100 unit/mL Aspirin 81 Aspirin 81 No 1{table QD Aspirin 81 MG MG t} MG Spironolact Spironolact No Spironolac one 25 MG one 25 MG tone 25 MG Lumigan Lumigan No 1{drop_ QD Lumigan 0.01 % 0.01 % into_af 0.01 % fected_ eye_in_ the_eve daron} metFORMIN metFORMIN No 2{table BID metFORMIN HCl 500 MG HCl 500 MG t_with_ HCl 500 MG a_meal} traZODone traZODone No traZODone HCl 50 MG HCl 50 MG HCl 50 MG Advair Advair No 1{puff} BID Advair Diskus Diskus Diskus 250-50 250-50 250-50 MCG/DOSE MCG/DOSE MCG/DOSE Carvedilol Carvedilol No 1{table BID Carvedilol 25 MG 25 MG t_with_ 25 MG food} Levemir Levemir No BID Levemir FlexTouch FlexTouch FlexTouch 100 UNIT/ML 100 UNIT/ML 100 UNIT/ML Sertraline Sertraline No 1{table QD Sertraline HCl 100 MG HCl 100 MG t} HCl 100 MG Gabapentin Gabapentin No 1{table TID Gabapentin 600 MG 600 MG t} 600 MG Clopidogrel Clopidogrel No 1{table QD Clopidogre Bisulfate Bisulfate t} l 75 MG 75 MG Bisulfate 75 MG traMADol traMADol No 1{table traMADol HCl 50 MG HCl 50 MG t_as_ne HCl 50 MG eded} Nitroglycer Nitroglycer No Nitroglyce in 0.4 MG in 0.4 MG rin 0.4 MG Metoclopram Metoclopram No 1{table TID Metoclopra mateus HCl 5 mateus HCl 5 t_befor mide HCl 5 MG MG e_meals MG } Rosuvastati Rosuvastati No 1{table QD Rosuvastat n Calcium n Calcium t} in Calcium 40 MG 40 MG 40 MG Magnesium Magnesium No 1{capsu QD Magnesium 400 MG 400 MG le_with 400 MG _a_meal } Sertraline Sertraline No Sertraline HCl 100 MG HCl 100 MG HCl 100 MG Levemir Levemir No BID Levemir FlexTouch FlexTouch FlexTouch 100 UNIT/ML 100 UNIT/ML 100 UNIT/ML Levemir Levemir No Levemir FlexTouch FlexTouch FlexTouch 100 UNIT/ML 100 UNIT/ML 100 UNIT/ML Metoprolol Metoprolol No Metoprolol Tartrate Tartrate Tartrate 100 MG 100 MG 100 MG Sertraline Sertraline No Sertraline HCl 100 MG HCl 100 MG HCl 100 MG Spironolact Spironolact No Spironolac one 25 MG one 25 MG tone 25 MG Gabapentin Gabapentin No 1{table TID Gabapentin 600 MG 600 MG t} 600 MG Pantoprazol Pantoprazol No Pantoprazo e Sodium 40 e Sodium 40 le Sodium MG MG 40 MG Fluticasone Fluticasone No 1{puff} BID Fluticason -Salmeterol -Salmeterol e-Salmeter 250-50 250-50 ol 250-50 MCG/DOSE MCG/DOSE MCG/DOSE Aspirin 81 Aspirin 81 No 1{table QD Aspirin 81 MG MG t} MG Metoclopram Metoclopram No 1{table TID Metoclopra mateus HCl 5 mateus HCl 5 t_befor mide HCl 5 MG MG e_meals MG } Brimonidine Brimonidine No 5{drop_ Brimonidin Tartrate-Ti Tartrate-Ti into_af e molol molol fected_ Tartrate-T 0.2-0.5 % 0.2-0.5 % eye} imolol 0.2-0.5 % Gabapentin Gabapentin No Gabapentin 800 MG 800 MG 800 MG metFORMIN metFORMIN No 2{table BID metFORMIN HCl 500 MG HCl 500 MG t_with_ HCl 500 MG a_meal} Nitroglycer Nitroglycer No Nitroglyce in 0.4 MG in 0.4 MG rin 0.4 MG traMADol traMADol No 1{table traMADol HCl 50 MG HCl 50 MG t_as_ne HCl 50 MG eded} FreeStyle FreeStyle No FreeStyle Jonna 14 Jonna 14 Jonna 14 Day Sensor Day Sensor Day Sensor - - - Pantoprazol Pantoprazol No 1{table QD Pantoprazo e Sodium 40 e Sodium 40 t} le Sodium MG MG 40 MG predniSONE predniSONE No 1{table QD predniSONE 10 MG 10 MG t} 10 MG Advair Advair No 1{puff} BID Advair Diskus Diskus Diskus 250-50 250-50 250-50 MCG/DOSE MCG/DOSE MCG/DOSE Potassium Potassium No 1{table BID Potassium Chloride ER Chloride ER t_with_ Chloride 10 MEQ 10 MEQ food} ER 10 MEQ Combigan Combigan No 1{drop_ BID Combigan 0.2-0.5 % 0.2-0.5 % into_af 0.2-0.5 % fected_ eye} Lumigan Lumigan No 1{drop_ QD Lumigan 0.01 % 0.01 % into_af 0.01 % fected_ eye_in_ the_eve daron} Clopidogrel Clopidogrel No 1{table QD Clopidogre Bisulfate Bisulfate t} l 75 MG 75 MG Bisulfate 75 MG Rosuvastati Rosuvastati No 1{table QD Rosuvastat n Calcium n Calcium t} in Calcium 40 MG 40 MG 40 MG busPIRone busPIRone No 1{table BID busPIRone HCl 10 MG HCl 10 MG t} HCl 10 MG traZODone traZODone No 1{table QD traZODone HCl 50 MG HCl 50 MG t_at_be HCl 50 MG dtime_a s_neede d} Furosemide Furosemide No 1{table QD Furosemide 40 MG 40 MG t} 40 MG Metoprolol Metoprolol No 1{table QD Metoprolol Tartrate 50 Tartrate 50 t_with_ Tartrate MG MG food} 50 MG amLODIPine amLODIPine No 1{table QD amLODIPine Besylate 10 Besylate 10 t} Besylate MG MG 10 MG FreeStyle FreeStyle No FreeStyle Jonna Jonna Jonna [place] - [place] - [place] - Lumigan Lumigan No 1{drop_ QD Lumigan 0.01 % 0.01 % into_af 0.01 % fected_ eye_in_ the_eve daron} Metoprolol Metoprolol No Metoprolol Tartrate Tartrate Tartrate 100 MG 100 MG 100 MG amLODIPine amLODIPine No 1{table QD amLODIPine Besylate 10 Besylate 10 t} Besylate MG MG 10 MG Combigan Combigan No Combigan 0.2-0.5 % 0.2-0.5 % 0.2-0.5 % Clopidogrel Clopidogrel No 1{table QD Clopidogre Bisulfate Bisulfate t} l 75 MG 75 MG Bisulfate 75 MG Metoprolol Metoprolol No 1{table QD Metoprolol Tartrate 50 Tartrate 50 t_with_ Tartrate MG MG food} 50 MG FreeStyle FreeStyle No FreeStyle Jonna 14 Jonna 14 Jonna 14 Day Sensor Day Sensor Day Sensor - - - Nitroglycer Nitroglycer No Nitroglyce in 0.4 MG in 0.4 MG rin 0.4 MG Potassium Potassium No 1{table BID Potassium Chloride ER Chloride ER t_with_ Chloride 10 MEQ 10 MEQ food} ER 10 MEQ Aspirin 81 Aspirin 81 No 1{table QD Aspirin 81 MG MG t} MG Carvedilol Carvedilol No Carvedilol 25 MG 25 MG 25 MG Pantoprazol Pantoprazol No Pantoprazo e Sodium 40 e Sodium 40 le Sodium MG MG 40 MG Advair Advair No Advair Diskus Diskus Diskus 250-50 250-50 250-50 MCG/DOSE MCG/DOSE MCG/DOSE Sertraline Sertraline No Sertraline HCl 100 MG HCl 100 MG HCl 100 MG Gabapentin Gabapentin No Gabapentin 800 MG 800 MG 800 MG busPIRone busPIRone No 1{table BID busPIRone HCl 10 MG HCl 10 MG t} HCl 10 MG Furosemide Furosemide No 1{table QD Furosemide 40 MG 40 MG t} 40 MG Fluticasone Fluticasone No 1{puff} BID Fluticason -Salmeterol -Salmeterol e-Salmeter 250-50 250-50 ol 250-50 MCG/DOSE MCG/DOSE MCG/DOSE NovoFine NovoFine No 6xD NovoFine Plus Pen Plus Pen Plus Pen Needle 32G Needle 32G Needle 32G X 4 MM X 4 MM X 4 MM Advair Advair No 1{puff} BID Advair Diskus Diskus Diskus 250-50 250-50 250-50 MCG/DOSE MCG/DOSE MCG/DOSE predniSONE predniSONE No 1{table QD predniSONE 10 MG 10 MG t} 10 MG Levemir Levemir No Levemir FlexTouch FlexTouch FlexTouch 100 UNIT/ML 100 UNIT/ML 100 UNIT/ML FreeStyle FreeStyle No FreeStyle Jonna Jonna Jonna [place] - traZODone traZODone No 1{table QD traZODone HCl 50 MG HCl 50 MG t_at_be HCl 50 MG dtime_a s_neede d} Pantoprazol Pantoprazol No 1{table QD Pantoprazo e Sodium 40 e Sodium 40 t} le Sodium MG MG 40 MG Levemir Levemir No BID Levemir FlexTouch FlexTouch FlexTouch 100 UNIT/ML 100 UNIT/ML 100 UNIT/ML Rosuvastati Rosuvastati No Rosuvastat n Calcium n Calcium in Calcium 40 MG 40 MG 40 MG Magnesium Magnesium No 1{capsu QD Magnesium 400 MG 400 MG le_with 400 MG _a_meal } Gabapentin Gabapentin No 1{table TID Gabapentin 600 MG 600 MG t} 600 MG traMADol traMADol No 1{table traMADol HCl 50 MG HCl 50 MG t_as_ne HCl 50 MG eded} Brimonidine Brimonidine No 5{drop_ Brimonidin Tartrate-Ti Tartrate-Ti into_af e molol molol fected_ Tartrate-T 0.2-0.5 % 0.2-0.5 % eye} imolol 0.2-0.5 % Metoclopram Metoclopram No 1{table TID Metoclopra mateus HCl 5 mateus HCl 5 t_befor mide HCl 5 MG MG e_meals MG } metFORMIN metFORMIN No 2{table BID metFORMIN HCl 500 MG HCl 500 MG t_with_ HCl 500 MG a_meal} Spironolact Spironolact No Spironolac one 25 MG one 25 MG tone 25 MG Rosuvastati Rosuvastati No 1{table QD Rosuvastat n Calcium n Calcium t} in Calcium 40 MG 40 MG 40 MG Gabapentin Gabapentin No 1{table TID Gabapentin 600 MG 600 MG t} 600 MG Clopidogrel Clopidogrel No 1{table QD Clopidogre Bisulfate Bisulfate t} l 75 MG 75 MG Bisulfate 75 MG Metoprolol Metoprolol No 1{table QD Metoprolol Tartrate 50 Tartrate 50 t_with_ Tartrate MG MG food} 50 MG Combigan Combigan No Combigan 0.2-0.5 % 0.2-0.5 % 0.2-0.5 % Rosuvastati Rosuvastati No Rosuvastat n Calcium n Calcium in Calcium 40 MG 40 MG 40 MG Magnesium Magnesium No 1{capsu QD Magnesium 400 MG 400 MG le_with 400 MG _a_meal } Aspirin 81 Aspirin 81 No 1{table QD Aspirin 81 MG MG t} MG Carvedilol Carvedilol No Carvedilol 25 MG 25 MG 25 MG Pantoprazol Pantoprazol No Pantoprazo e Sodium 40 e Sodium 40 le Sodium MG MG 40 MG Lumigan Lumigan No 1{drop_ QD Lumigan 0.01 % 0.01 % into_af 0.01 % fected_ eye_in_ the_eve [place]} Metoprolol Metoprolol No Metoprolol Tartrate Tartrate Tartrate 100 MG 100 MG 100 MG amLODIPine amLODIPine No 1{table QD amLODIPine Besylate 10 Besylate 10 t} Besylate MG MG 10 MG Gabapentin Gabapentin No Gabapentin 800 MG 800 MG 800 MG busPIRone busPIRone No 1{table BID busPIRone HCl 10 MG HCl 10 MG t} HCl 10 MG FreeStyle FreeStyle No FreeStyle Jonna 14 Jonna 14 Jonna 14 Day Sensor Day Sensor Day Sensor - - - Nitroglycer Nitroglycer No Nitroglyce in 0.4 MG in 0.4 MG rin 0.4 MG Potassium Potassium No 1{table BID Potassium Chloride ER Chloride ER t_with_ Chloride 10 MEQ 10 MEQ food} ER 10 MEQ Fluticasone Fluticasone No 1{puff} BID Fluticason -Salmeterol -Salmeterol e-Salmeter 250-50 250-50 ol 250-50 MCG/DOSE MCG/DOSE MCG/DOSE Advair Advair No Advair Diskus Diskus Diskus 250-50 250-50 250-50 MCG/DOSE MCG/DOSE MCG/DOSE Advair Advair No 1{puff} BID Advair Diskus Diskus Diskus 250-50 250-50 250-50 MCG/DOSE MCG/DOSE MCG/DOSE traMADol traMADol No 1{table traMADol HCl 50 MG HCl 50 MG t_as_ne HCl 50 MG eded} Brimonidine Brimonidine No 5{drop_ Brimonidin Tartrate-Ti Tartrate-Ti into_af e molol molol fected_ Tartrate-T 0.2-0.5 % 0.2-0.5 % eye} imolol 0.2-0.5 % Pantoprazol Pantoprazol No 1{table QD Pantoprazo e Sodium 40 e Sodium 40 t} le Sodium MG MG 40 MG Levemir Levemir No BID Levemir FlexTouch FlexTouch FlexTouch 100 UNIT/ML 100 UNIT/ML 100 UNIT/ML NovoFine NovoFine No 6xD NovoFine Plus Pen Plus Pen Plus Pen Needle 32G Needle 32G Needle 32G X 4 MM X 4 MM X 4 MM Sertraline Sertraline No Sertraline HCl 100 MG HCl 100 MG HCl 100 MG FreeStyle FreeStyle No FreeStyle Jonna Jonna Jonna [place] - Furosemide Furosemide No 1{table QD Furosemide 40 MG 40 MG t} 40 MG predniSONE predniSONE No 1{table QD predniSONE 10 MG 10 MG t} 10 MG Levemir Levemir No Levemir FlexTouch FlexTouch FlexTouch 100 UNIT/ML 100 UNIT/ML 100 UNIT/ML traZODone traZODone No 1{table QD traZODone HCl 50 MG HCl 50 MG t_at_be HCl 50 MG dtime_a s_neede d} Metoclopram Metoclopram No 1{table TID Metoclopra mateus HCl 5 mateus HCl 5 t_befor mide HCl 5 MG MG e_meals MG } metFORMIN metFORMIN No 2{table BID metFORMIN HCl 500 MG HCl 500 MG t_with_ HCl 500 MG a_meal} Spironolact Spironolact No Spironolac one 25 MG one 25 MG tone 25 MG Rosuvastati Rosuvastati No 1{table QD Rosuvastat n Calcium n Calcium t} in Calcium 40 MG 40 MG 40 MG Clopidogrel Clopidogrel No 1{table QD Clopidogre Bisulfate Bisulfate t} l 75 MG 75 MG Bisulfate 75 MG Aspirin 81 Aspirin 81 No 1{table QD Aspirin 81 MG MG t} MG Metoclopram Metoclopram No 1{table TID Metoclopra mateus HCl 5 mateus HCl 5 t_befor mide HCl 5 MG MG e_meals MG } Metoprolol Metoprolol No 1{table QD Metoprolol Tartrate 50 Tartrate 50 t_with_ Tartrate MG MG food} 50 MG Magnesium Magnesium No 1{capsu QD Magnesium 400 MG 400 MG le_with 400 MG _a_meal } traZODone traZODone No 1{table QD traZODone HCl 50 MG HCl 50 MG t_at_be HCl 50 MG dtime_a s_neede d} amLODIPine amLODIPine No 1{table QD amLODIPine Besylate 10 Besylate 10 t} Besylate MG MG 10 MG Brimonidine Brimonidine No 5{drop_ Brimonidin Tartrate-Ti Tartrate-Ti into_af e molol molol fected_ Tartrate-T 0.2-0.5 % 0.2-0.5 % eye} imolol 0.2-0.5 % metFORMIN metFORMIN No 2{table BID metFORMIN HCl 500 MG HCl 500 MG t_with_ HCl 500 MG a_meal} Nitroglycer Nitroglycer No Nitroglyce in 0.4 MG in 0.4 MG rin 0.4 MG Pantoprazol Pantoprazol No Pantoprazo e Sodium 40 e Sodium 40 le Sodium MG MG 40 MG Metoprolol Metoprolol No Metoprolol Tartrate Tartrate Tartrate 100 MG 100 MG 100 MG Fluticasone Fluticasone No 1{puff} BID Fluticason -Salmeterol -Salmeterol e-Salmeter 250-50 250-50 ol 250-50 MCG/DOSE MCG/DOSE MCG/DOSE NovoFine NovoFine No 6xD NovoFine Plus Pen Plus Pen Plus Pen Needle 32G Needle 32G Needle 32G X 4 MM X 4 MM X 4 MM Gabapentin Gabapentin No Gabapentin 800 MG 800 MG 800 MG FreeStyle FreeStyle No FreeStyle Jonna Jonna Jonna [place] - traMADol traMADol No 1{table traMADol HCl 50 MG HCl 50 MG t_as_ne HCl 50 MG eded} Rosuvastati Rosuvastati No 1{table QD Rosuvastat n Calcium n Calcium t} in Calcium 40 MG 40 MG 40 MG Pantoprazol Pantoprazol No 1{table QD Pantoprazo e Sodium 40 e Sodium 40 t} le Sodium MG MG 40 MG Lumigan Lumigan No 1{drop_ QD Lumigan 0.01 % 0.01 % into_af 0.01 % fected_ eye_in_ the_eve [place]} Combigan Combigan No Combigan 0.2-0.5 % 0.2-0.5 % 0.2-0.5 % busPIRone busPIRone No 1{table BID busPIRone HCl 10 MG HCl 10 MG t} HCl 10 MG predniSONE predniSONE No 1{table QD predniSONE 10 MG 10 MG t} 10 MG Levemir Levemir No Levemir FlexTouch FlexTouch FlexTouch 100 UNIT/ML 100 UNIT/ML 100 UNIT/ML Potassium Potassium No 1{table BID Potassium Chloride ER Chloride ER t_with_ Chloride 10 MEQ 10 MEQ food} ER 10 MEQ Gabapentin Gabapentin No 1{table TID Gabapentin 600 MG 600 MG t} 600 MG Advair Advair No 1{puff} BID Advair Diskus Diskus Diskus 250-50 250-50 250-50 MCG/DOSE MCG/DOSE MCG/DOSE Spironolact Spironolact No Spironolac one 25 MG one 25 MG tone 25 MG Furosemide Furosemide No 1{table QD Furosemide 40 MG 40 MG t} 40 MG FreeStyle FreeStyle No FreeStyle Jonna 14 Jonna 14 Jonna 14 Day Sensor Day Sensor Day Sensor - - - Rosuvastati Rosuvastati No Rosuvastat n Calcium n Calcium in Calcium 40 MG 40 MG 40 MG Advair Advair No Advair Diskus Diskus Diskus 250-50 250-50 250-50 MCG/DOSE MCG/DOSE MCG/DOSE Sertraline Sertraline No Sertraline HCl 100 MG HCl 100 MG HCl 100 MG Carvedilol Carvedilol No Carvedilol 25 MG 25 MG 25 MG Levemir Levemir No BID Levemir FlexTouch FlexTouch FlexTouch 100 UNIT/ML 100 UNIT/ML 100 UNIT/ML Clopidogrel Clopidogrel No 1{table QD Clopidogre Bisulfate Bisulfate t} l 75 MG 75 MG Bisulfate 75 MG Aspirin 81 Aspirin 81 No 1{table QD Aspirin 81 MG MG t} MG Metoclopram Metoclopram No 1{table TID Metoclopra mateus HCl 5 mateus HCl 5 t_befor mide HCl 5 MG MG e_meals MG } Metoprolol Metoprolol No 1{table QD Metoprolol Tartrate 50 Tartrate 50 t_with_ Tartrate MG MG food} 50 MG Magnesium Magnesium No 1{capsu QD Magnesium 400 MG 400 MG le_with 400 MG _a_meal } traZODone traZODone No 1{table QD traZODone HCl 50 MG HCl 50 MG t_at_be HCl 50 MG dtime_a s_neede d} amLODIPine amLODIPine No 1{table QD amLODIPine Besylate 10 Besylate 10 t} Besylate MG MG 10 MG Brimonidine Brimonidine No 5{drop_ Brimonidin Tartrate-Ti Tartrate-Ti into_af e molol molol fected_ Tartrate-T 0.2-0.5 % 0.2-0.5 % eye} imolol 0.2-0.5 % metFORMIN metFORMIN No 2{table BID metFORMIN HCl 500 MG HCl 500 MG t_with_ HCl 500 MG a_meal} Nitroglycer Nitroglycer No Nitroglyce in 0.4 MG in 0.4 MG rin 0.4 MG Pantoprazol Pantoprazol No Pantoprazo e Sodium 40 e Sodium 40 le Sodium MG MG 40 MG Metoprolol Metoprolol No Metoprolol Tartrate Tartrate Tartrate 100 MG 100 MG 100 MG Fluticasone Fluticasone No 1{puff} BID Fluticason -Salmeterol -Salmeterol e-Salmeter 250-50 250-50 ol 250-50 MCG/DOSE MCG/DOSE MCG/DOSE NovoFine NovoFine No 6xD NovoFine Plus Pen Plus Pen Plus Pen Needle 32G Needle 32G Needle 32G X 4 MM X 4 MM X 4 MM Gabapentin Gabapentin No Gabapentin 800 MG 800 MG 800 MG FreeStyle FreeStyle No FreeStyle Jonna Jonna Jonna [place] - traMADol traMADol No 1{table traMADol HCl 50 MG HCl 50 MG t_as_ne HCl 50 MG eded} Rosuvastati Rosuvastati No 1{table QD Rosuvastat n Calcium n Calcium t} in Calcium 40 MG 40 MG 40 MG Pantoprazol Pantoprazol No 1{table QD Pantoprazo e Sodium 40 e Sodium 40 t} le Sodium MG MG 40 MG Lumigan Lumigan No 1{drop_ QD Lumigan 0.01 % 0.01 % into_af 0.01 % fected_ eye_in_ the_eve [place]} Combigan Combigan No Combigan 0.2-0.5 % 0.2-0.5 % 0.2-0.5 % busPIRone busPIRone No 1{table BID busPIRone HCl 10 MG HCl 10 MG t} HCl 10 MG predniSONE predniSONE No 1{table QD predniSONE 10 MG 10 MG t} 10 MG Levemir Levemir No Levemir FlexTouch FlexTouch FlexTouch 100 UNIT/ML 100 UNIT/ML 100 UNIT/ML Potassium Potassium No 1{table BID Potassium Chloride ER Chloride ER t_with_ Chloride 10 MEQ 10 MEQ food} ER 10 MEQ Gabapentin Gabapentin No 1{table TID Gabapentin 600 MG 600 MG t} 600 MG Advair Advair No 1{puff} BID Advair Diskus Diskus Diskus 250-50 250-50 250-50 MCG/DOSE MCG/DOSE MCG/DOSE Spironolact Spironolact No Spironolac one 25 MG one 25 MG tone 25 MG Furosemide Furosemide No 1{table QD Furosemide 40 MG 40 MG t} 40 MG FreeStyle FreeStyle No FreeStyle Jonna 14 Jonna 14 Jonna 14 Day Sensor Day Sensor Day Sensor - - - Rosuvastati Rosuvastati No Rosuvastat n Calcium n Calcium in Calcium 40 MG 40 MG 40 MG Advair Advair No Advair Diskus Diskus Diskus 250-50 250-50 250-50 MCG/DOSE MCG/DOSE MCG/DOSE Sertraline Sertraline No Sertraline HCl 100 MG HCl 100 MG HCl 100 MG Carvedilol Carvedilol No Carvedilol 25 MG 25 MG 25 MG Levemir Levemir No BID Levemir FlexTouch FlexTouch FlexTouch 100 UNIT/ML 100 UNIT/ML 100 UNIT/ML Pantoprazol Pantoprazol No Pantoprazo e Sodium 40 e Sodium 40 le Sodium MG MG 40 MG Brimonidine Brimonidine No 5{drop_ Brimonidin Tartrate-Ti Tartrate-Ti into_af e molol molol fected_ Tartrate-T 0.2-0.5 % 0.2-0.5 % eye} imolol 0.2-0.5 % metFORMIN metFORMIN No 2{table BID metFORMIN HCl 500 MG HCl 500 MG t_with_ HCl 500 MG a_meal} Nitroglycer Nitroglycer No Nitroglyce in 0.4 MG in 0.4 MG rin 0.4 MG Aspirin 81 Aspirin 81 No 1{table QD Aspirin 81 MG MG t} MG Metoprolol Metoprolol No Metoprolol Tartrate Tartrate Tartrate 100 MG 100 MG 100 MG Fluticasone Fluticasone No 1{puff} BID Fluticason -Salmeterol -Salmeterol e-Salmeter 250-50 250-50 ol 250-50 MCG/DOSE MCG/DOSE MCG/DOSE Gabapentin Gabapentin No Gabapentin 800 MG 800 MG 800 MG amLODIPine amLODIPine No 1{table QD amLODIPine Besylate 10 Besylate 10 t} Besylate MG MG 10 MG Carvedilol Carvedilol No Carvedilol 25 MG 25 MG 25 MG Advair Advair No 1{puff} BID Advair Diskus Diskus Diskus 250-50 250-50 250-50 MCG/DOSE MCG/DOSE MCG/DOSE Rosuvastati Rosuvastati No 1{table QD Rosuvastat n Calcium n Calcium t} in Calcium 40 MG 40 MG 40 MG Potassium Potassium No 1{table BID Potassium Chloride ER Chloride ER t_with_ Chloride 10 MEQ 10 MEQ food} ER 10 MEQ traMADol traMADol No 1{table traMADol HCl 50 MG HCl 50 MG t_as_ne HCl 50 MG eded} NovoFine NovoFine No 6xD NovoFine Plus Pen Plus Pen Plus Pen Needle 32G Needle 32G Needle 32G X 4 MM X 4 MM X 4 MM traZODone traZODone No 1{table QD traZODone HCl 50 MG HCl 50 MG t_at_be HCl 50 MG dtime_a s_neede d} FreeStyle FreeStyle No FreeStyle Jonna Jonna Jonna [place] - Combigan Combigan No Combigan 0.2-0.5 % 0.2-0.5 % 0.2-0.5 % Levemir Levemir No Levemir FlexTouch FlexTouch FlexTouch 100 UNIT/ML 100 UNIT/ML 100 UNIT/ML Lumigan Lumigan No 1{drop_ QD Lumigan 0.01 % 0.01 % into_af 0.01 % fected_ eye_in_ the_[place]} Metoprolol Metoprolol No 1{table QD Metoprolol Tartrate 50 Tartrate 50 t_with_ Tartrate MG MG food} 50 MG Gabapentin Gabapentin No 1{table TID Gabapentin 600 MG 600 MG t} 600 MG FreeStyle FreeStyle No FreeStyle Jonna 14 Jonna 14 Jonna 14 Day Sensor Day Sensor Day Sensor - - - Furosemide Furosemide No 1{table QD Furosemide 40 MG 40 MG t} 40 MG busPIRone busPIRone No 1{table BID busPIRone HCl 10 MG HCl 10 MG t} HCl 10 MG Magnesium Magnesium No 1{capsu QD Magnesium 400 MG 400 MG le_with 400 MG _a_meal } Metoclopram Metoclopram No 1{table TID Metoclopra mateus HCl 5 mateus HCl 5 t_befor mide HCl 5 MG MG e_meals MG } predniSONE predniSONE No 1{table QD predniSONE 10 MG 10 MG t} 10 MG Clopidogrel Clopidogrel No 1{table QD Clopidogre Bisulfate Bisulfate t} l 75 MG 75 MG Bisulfate 75 MG Rosuvastati Rosuvastati No Rosuvastat n Calcium n Calcium in Calcium 40 MG 40 MG 40 MG Advair Advair No Advair Diskus Diskus Diskus 250-50 250-50 250-50 MCG/DOSE MCG/DOSE MCG/DOSE Sertraline Sertraline No Sertraline HCl 100 MG HCl 100 MG HCl 100 MG Spironolact Spironolact No Spironolac one 25 MG one 25 MG tone 25 MG Levemir Levemir No BID Levemir FlexTouch FlexTouch FlexTouch 100 UNIT/ML 100 UNIT/ML 100 UNIT/ML traMADol traMADol No 1{table traMADol HCl 50 MG HCl 50 MG t_as_ne HCl 50 MG eded} Spironolact Spironolact No 1{table BID Spironolac one 25 MG one 25 MG t} tone 25 MG Furosemide Furosemide No 1{table QD Furosemide 40 MG 40 MG t} 40 MG Carvedilol Carvedilol No 1{table BID Carvedilol 25 MG 25 MG t_with_ 25 MG food} traZODone traZODone No 1{table QD traZODone HCl 50 MG HCl 50 MG t_at_be HCl 50 MG dtime_a s_neede d} Magnesium Magnesium No 1{capsu QD Magnesium 400 MG 400 MG le_with 400 MG _a_meal } Nitroglycer Nitroglycer No Nitroglyce in 0.4 MG in 0.4 MG rin 0.4 MG NovoFine NovoFine No 6xD NovoFine Plus Pen Plus Pen Plus Pen Needle 32G Needle 32G Needle 32G X 4 MM X 4 MM X 4 MM Clopidogrel Clopidogrel No 1{table QD Clopidogre Bisulfate Bisulfate t} l 75 MG 75 MG Bisulfate 75 MG Rosuvastati Rosuvastati No 1{table QD Rosuvastat n Calcium n Calcium t} in Calcium 40 MG 40 MG 40 MG amLODIPine amLODIPine No 1{table QD amLODIPine Besylate 10 Besylate 10 t} Besylate MG MG 10 MG Metoclopram Metoclopram No 1{table TID Metoclopra mateus HCl 5 mateus HCl 5 t_befor mide HCl 5 MG MG e_meals MG } Combigan Combigan No Combigan 0.2-0.5 % 0.2-0.5 % 0.2-0.5 % Levemir Levemir No BID Levemir FlexTouch FlexTouch FlexTouch 100 UNIT/ML 100 UNIT/ML 100 UNIT/ML Advair Advair No 1{puff} BID Advair Diskus Diskus Diskus 250-50 250-50 250-50 MCG/DOSE MCG/DOSE MCG/DOSE Levemir Levemir No Levemir FlexTouch FlexTouch FlexTouch 100 unit/mL 100 unit/mL 100 unit/mL Gabapentin Gabapentin No 1{table TID Gabapentin 600 MG 600 MG t} 600 MG Metoprolol Metoprolol No 1{table QD Metoprolol Tartrate 50 Tartrate 50 t_with_ Tartrate MG MG food} 50 MG Sertraline Sertraline No 1{table QD Sertraline HCl 100 MG HCl 100 MG t} HCl 100 MG Pantoprazol Pantoprazol No Pantoprazo e Sodium 40 e Sodium 40 le Sodium MG MG 40 MG metFORMIN metFORMIN No 2{table BID metFORMIN HCl 500 MG HCl 500 MG t_with_ HCl 500 MG a_meal} Aspirin 81 Aspirin 81 No 1{table QD Aspirin 81 MG MG t} MG Lumigan Lumigan No 1{drop_ QD Lumigan 0.01 % 0.01 % into_af 0.01 % fected_ eye_in_ the_eve [place]} traMADol traMADol No 1{table traMADol HCl 50 MG HCl 50 MG t_as_ne HCl 50 MG eded} Spironolact Spironolact No 1{table BID Spironolac one 25 MG one 25 MG t} tone 25 MG Furosemide Furosemide No 1{table QD Furosemide 40 MG 40 MG t} 40 MG Carvedilol Carvedilol No 1{table BID Carvedilol 25 MG 25 MG t_with_ 25 MG food} traZODone traZODone No 1{table QD traZODone HCl 50 MG HCl 50 MG t_at_be HCl 50 MG dtime_a s_neede d} Magnesium Magnesium No 1{capsu QD Magnesium 400 MG 400 MG le_with 400 MG _a_meal } Nitroglycer Nitroglycer No Nitroglyce in 0.4 MG in 0.4 MG rin 0.4 MG NovoFine NovoFine No 6xD NovoFine Plus Pen Plus Pen Plus Pen Needle 32G Needle 32G Needle 32G X 4 MM X 4 MM X 4 MM Clopidogrel Clopidogrel No 1{table QD Clopidogre Bisulfate Bisulfate t} l 75 MG 75 MG Bisulfate 75 MG Rosuvastati Rosuvastati No 1{table QD Rosuvastat n Calcium n Calcium t} in Calcium 40 MG 40 MG 40 MG amLODIPine amLODIPine No 1{table QD amLODIPine Besylate 10 Besylate 10 t} Besylate MG MG 10 MG Metoclopram Metoclopram No 1{table TID Metoclopra mateus HCl 5 mateus HCl 5 t_befor mide HCl 5 MG MG e_meals MG } Combigan Combigan No Combigan 0.2-0.5 % 0.2-0.5 % 0.2-0.5 % Levemir Levemir No BID Levemir FlexTouch FlexTouch FlexTouch 100 UNIT/ML 100 UNIT/ML 100 UNIT/ML Advair Advair No 1{puff} BID Advair Diskus Diskus Diskus 250-50 250-50 250-50 MCG/DOSE MCG/DOSE MCG/DOSE Levemir Levemir No Levemir FlexTouch FlexTouch FlexTouch 100 unit/mL 100 unit/mL 100 unit/mL Gabapentin Gabapentin No 1{table TID Gabapentin 600 MG 600 MG t} 600 MG Metoprolol Metoprolol No 1{table QD Metoprolol Tartrate 50 Tartrate 50 t_with_ Tartrate MG MG food} 50 MG Sertraline Sertraline No 1{table QD Sertraline HCl 100 MG HCl 100 MG t} HCl 100 MG Pantoprazol Pantoprazol No Pantoprazo e Sodium 40 e Sodium 40 le Sodium MG MG 40 MG metFORMIN metFORMIN No 2{table BID metFORMIN HCl 500 MG HCl 500 MG t_with_ HCl 500 MG a_meal} Aspirin 81 Aspirin 81 No 1{table QD Aspirin 81 MG MG t} MG Lumigan Lumigan No 1{drop_ QD Lumigan 0.01 % 0.01 % into_af 0.01 % fected_ eye_in_ the_eve [place]} traMADol traMADol No 1{table traMADol HCl 50 MG HCl 50 MG t_as_ne HCl 50 MG eded} Spironolact Spironolact No 1{table BID Spironolac one 25 MG one 25 MG t} tone 25 MG Furosemide Furosemide No 1{table QD Furosemide 40 MG 40 MG t} 40 MG Carvedilol Carvedilol No 1{table BID Carvedilol 25 MG 25 MG t_with_ 25 MG food} traZODone traZODone No 1{table QD traZODone HCl 50 MG HCl 50 MG t_at_be HCl 50 MG dtime_a s_neede d} Magnesium Magnesium No 1{capsu QD Magnesium 400 MG 400 MG le_with 400 MG _a_meal } Nitroglycer Nitroglycer No Nitroglyce in 0.4 MG in 0.4 MG rin 0.4 MG NovoFine NovoFine No 6xD NovoFine Plus Pen Plus Pen Plus Pen Needle 32G Needle 32G Needle 32G X 4 MM X 4 MM X 4 MM Clopidogrel Clopidogrel No 1{table QD Clopidogre Bisulfate Bisulfate t} l 75 MG 75 MG Bisulfate 75 MG Rosuvastati Rosuvastati No 1{table QD Rosuvastat n Calcium n Calcium t} in Calcium 40 MG 40 MG 40 MG amLODIPine amLODIPine No 1{table QD amLODIPine Besylate 10 Besylate 10 t} Besylate MG MG 10 MG Metoclopram Metoclopram No 1{table TID Metoclopra mateus HCl 5 mateus HCl 5 t_befor mide HCl 5 MG MG e_meals MG } Combigan Combigan No Combigan 0.2-0.5 % 0.2-0.5 % 0.2-0.5 % Levemir Levemir No BID Levemir FlexTouch FlexTouch FlexTouch 100 UNIT/ML 100 UNIT/ML 100 UNIT/ML Advair Advair No 1{puff} BID Advair Diskus Diskus Diskus 250-50 250-50 250-50 MCG/DOSE MCG/DOSE MCG/DOSE Levemir Levemir No Levemir FlexTouch FlexTouch FlexTouch 100 unit/mL 100 unit/mL 100 unit/mL Gabapentin Gabapentin No 1{table TID Gabapentin 600 MG 600 MG t} 600 MG Metoprolol Metoprolol No 1{table QD Metoprolol Tartrate 50 Tartrate 50 t_with_ Tartrate MG MG food} 50 MG Sertraline Sertraline No 1{table QD Sertraline HCl 100 MG HCl 100 MG t} HCl 100 MG Pantoprazol Pantoprazol No Pantoprazo e Sodium 40 e Sodium 40 le Sodium MG MG 40 MG metFORMIN metFORMIN No 2{table BID metFORMIN HCl 500 MG HCl 500 MG t_with_ HCl 500 MG a_meal} Aspirin 81 Aspirin 81 No 1{table QD Aspirin 81 MG MG t} MG Lumigan Lumigan No 1{drop_ QD Lumigan 0.01 % 0.01 % into_af 0.01 % fected_ eye_in_ the_eve [place]} Carvedilol Carvedilol No 1{table BID Carvedilol 25 MG 25 MG t_with_ 25 MG food} traZODone traZODone No 1{table QD traZODone HCl 50 MG HCl 50 MG t_at_be HCl 50 MG dtime_a s_neede d} metFORMIN metFORMIN No 2{table BID metFORMIN HCl 500 MG HCl 500 MG t_with_ HCl 500 MG a_meal} Levemir Levemir No BID Levemir FlexTouch FlexTouch FlexTouch 100 UNIT/ML 100 UNIT/ML 100 UNIT/ML traMADol traMADol No 1{table traMADol HCl 50 MG HCl 50 MG t_as_ne HCl 50 MG eded} Vital Signs Vital Name Observation Time Observation Value Comments Source HEIGHT 2020-07-03 17:00:00 154.9 cm WEIGHT 2020-07-03 17:00:00 103.556 kg height 2021-12-10 11:40:00 62 [in_i] [facility] weight 2021-12-10 11:40:00 224 [lb_av] [facility] bmi 2021-12-10 11:40:00 40.97 kg/m2 [facility] height 2021-09-30 12:00:00 62 [in_i] [facility] weight 2021-09-30 12:00:00 224 [lb_av] [facility] bmi 2021-09-30 12:00:00 40.97 kg/m2 [facility] height 2021-09-08 13:00:00 62 [in_i] [facility] weight 2021-09-08 13:00:00 223 [lb_av] [facility] temperature 2021-09-08 13:00:00 97.5 [degF] [facility] bmi 2021-09-08 13:00:00 40.78 kg/m2 [facility] oximetry 2021-09-08 13:00:00 96 % [facility] respiratory rate 2021-09-08 13:00:00 20 /min [facility] blood pressure 2021-09-08 13:00:00 150 mm[Hg] [facility] - systolic [facility] blood pressure 2021-09-08 13:00:00 88 mm[Hg] [facility] diastolic [facility] height 2021-06-02 13:00:00 62 [in_i] [facility] weight 2021-06-02 13:00:00 242 [lb_av] [facility] temperature 2021-06-02 13:00:00 98.5 [degF] [facility] bmi 2021-06-02 13:00:00 44.26 kg/m2 [facility] oximetry 2021-06-02 13:00:00 91 % [facility] blood pressure 2021-06-02 13:00:00 120 mm[Hg] [facility] blood pressure 2021-06-02 13:00:00 70 mm[Hg] [facility] diastolic [facility] height 2021-06-02 13:40:00 62 [in_i] [facility] weight 2021-06-02 13:40:00 242 [lb_av] [facility] temperature 2021-06-02 13:40:00 98.5 [degF] [facility] bmi 2021-06-02 13:40:00 44.26 kg/m2 [facility] oximetry 2021-06-02 13:40:00 91 % [facility] respiratory rate 2021-06-02 13:40:00 18 /min [facility] blood pressure 2021-06-02 13:40:00 120 mm[Hg] [facility] - systolic [facility] blood pressure 2021-06-02 13:40:00 70 mm[Hg] [facility] - diastolic [facility] height 2021-03-04 11:00:00 62 [in_i] [facility] weight 2021-03-04 11:00:00 220 [lb_av] [facility] bmi 2021-03-04 11:00:00 40.23 kg/m2 [facility] height 2020-12-19 16:40:00 62 [in_i] [facility] weight 2020-12-19 16:40:00 220 [lb_av] [facility] bmi 2020-12-19 16:40:00 40.23 kg/m2 [facility] HEIGHT 2020-07-03 17:00:00 154.9 cm WEIGHT 2020-07-03 17:00:00 103.556 kg Procedures This patient has no known procedures. Encounters Start End Encounter Admission Attending Care Care Encounter Source Date/Time Date/Time Type Type Clinicians Facility Department ID 2021-12-08 Outpatient Cormier, Na [facility] [id number] Common 10:45:00 [facility] 2021-09-29 Outpatient Cormier, Na [facility] [id number] 2 Common 11:51:00 [facility] 2021-09-28 Outpatient Cormier, Na [facility] [id number] 2 Common 10:30:01 [facility] 2021-09-04 Outpatient Cormier, Na [facility] [id number] 2 [facility] 13:45:00 [place] [facility] 2021-06-02 Outpatient Cormier, Na STLMLC STLMLC [id number] 2 Common 13:14:01 [facility] 2021-06-01 Outpatient Cormier, Na STLMLC STLMLC [id number] 2 Common 14:17:00 [facility] 2021-05-29 Outpatient Cormier, Na STLMLC STLMLC [id number] 2 Common 09:59:01 [facility] 2021-05-06 Outpatient Cormier, Na STLMLC STLMLC [id number] 2 Common 16:04:00 [facility] 2021-04-15 Outpatient Cormier, Na STLMLC STLMLC [id number] 2 Common 14:24:29 [id number] [facility] 2021-04-15 Outpatient Cormier, Na STLMLC STLMLC [id number] 2 Common 14:24:14 [id number] [facility] 2021-04-15 Outpatient Cormier, Na STLMLC STLMLC [id number] 2 Common 14:19:03 [facility] 2021-04-15 Outpatient Cormier, Na STLMLC STLMLC [id number] 2 Common 14:06:54 [id number] [facility] 2021-04-15 Outpatient Cormier, Na STLMLC STLMLC [id number] 2 Common 13:02:26 [facility] 2021-04-15 Outpatient Cormier, Na STLMLC STLMLC [id number] 2 Common 13:01:50 [id number] [facility] 2021-04-15 Outpatient Cormier, Na STLMLC STLMLC [id number] 2 Common 13:01:22 [id number] [facility] 2021-04-15 Outpatient Cormier, Na STLMLC STLMLC [id number] 2 Common 12:57:37 [id number] [facility] 2021-04-15 Outpatient Cormier, Na STLMLC STLMLC [id number] 2 Common 12:33:49 [id number] [facility] 2021-04-15 Outpatient Cormier, Na STLMLC STLMLC [id number] 2 Common 12:32:45 [id number] [facility] 2021-04-15 Outpatient Cormier, Na STLMLC STLMLC [id number] 2 Common 12:31:08 [id number] [facility] 2021-04-15 Outpatient Cormier, Na STLMLC STLMLC [id number] 2 Common 12:26:24 [id number] [facility] 2021-04-15 Outpatient Cormier, Na STLMLC STLMLC [id number] 2 Common 12:26:03 [id number] [facility] 2021-04-15 Outpatient Cormier, Na STLMLC STLMLC [id number] 2 Common 12:24:50 [id number] [facility] 2021-04-15 Outpatient Cormier, Na STLMLC STLMLC [id number] 2 Common 11:59:32 [id number] [facility] 2021-04-15 Outpatient Cormier, Na STLMLC STLMLC [id number] 2 Common 11:26:16 [id number] [facility] 2021-04-15 Outpatient Cormier, Na STLMLC STLMLC [id number] 2 Common 11:19:17 [id number] [facility] 2021-04-15 Outpatient Cormier, Na STLMLC STLMLC [id number] 2 Common 11:18:55 [id number] [facility] 2020-07-03 Inpatient ER BONG, [facility] Cardiology [id number] SLE 16:58:00 [facility] 2021-12-14 2021-12-14 (TEL) STLMLC STLMLC [id number] Co mmon 00:00:00 00:00:00 [facility] 2021-12-10 2021-12-10 OFFICE STLMLC STLMLC [id number] Co mmon 00:00:00 00:00:00 VISIT [facility] PT - CHI LEVEL 4 [facility] 2021-12-04 2021-12-04 (TEL) STLMLC STLMLC [id number] Co mmon 00:00:00 00:00:00 [facility] 2021-10-29 2021-10-29 (TEL) STLMLC STLMLC [id number] Co mmon 00:00:00 00:00:00 [facility] 2021-09-30 2021-09-30 OFFICE STLMLC STLMLC [id number] Co mmon 00:00:00 00:00:00 VISIT [facility] PT LEVEL 3 [facility] 2021-09-24 2021-09-24 (TEL) STLMLC STLMLC [id number] Co mmon 00:00:00 00:00:00 [facility] 2021-09-14 2021-09-14 (TEL) STLMLC STLMLC [id number] Co mmon 00:00:00 00:00:00 [facility] 2021-09-08 2021-09-08 OFFICE STLMLC STLMLC [id number] Co mmon 00:00:00 00:00:00 VISIT [facility] PT - CHI LEVEL 4 [facility] 2021-06-23 2021-06-23 (TEL) STLMLC STLMLC [id number] Co mmon 00:00:00 00:00:00 [facility] 2021-06-02 2021-06-02 SUB ANNUAL STLMLC STLMLC [id number] Common 00:00:00 00:00:00 MCR [facility] VISIT [facility] 2021-06-02 2021-06-02 OFFICE STLMLC STLMLC [id number] Co mmon 00:00:00 00:00:00 VISIT EST [facility] PT LEVEL 3 [facility] 2021-04-23 2021-04-23 (TEL) STLMLC STLMLC [id number] Co mmon 00:00:00 00:00:00 [facility] 2021-03-04 2021-03-04 OFFICE STLMLC STLMLC [id number] Co mmon 00:00:00 00:00:00 VISIT [facility] PT - CHI LEVEL 4 [facility] 2020-12-19 2020-12-19 OFFICE STLMLC STLMLC [id number] Co mmon 00:00:00 00:00:00 VISIT [facility] ESTAB PT - CHI LEVEL 4 [facility] 2020-12-09 2020-12-09 Outpatient STLMLC STLMLC [id number] Common 00:00:00 00:00:00 [facility] 2020-09-26 2020-09-26 Outpatient STLMLC STLMLC [id number] Common 00:00:00 00:00:00 [facility] 2020-09-25 2020-09-25 Outpatient STLMLC STLMLC [id number] Common 00:00:00 00:00:00 [facility] 2020-09-08 2020-09-08 Outpatient STLMLC STLMLC [id number] Common 00:00:00 00:00:00 [facility] 2020-08-27 2020-08-27 Outpatient STLMLC STLMLC [id number] Common 00:00:00 00:00:00 [facility] 2020-08-19 2020-08-19 Outpatient Miller_S_AH VFP VFP [id number] [place] 05:09:00 05:09:00 [id number] [facility] 2020-07-30 2020-07-30 Outpatient STLMLC STLMLC [id number] Common 00:00:00 00:00:00 [facility] 2020-07-17 2020-07-17 Outpatient STLMLC STLMLC [id number] Common 00:00:00 00:00:00 [facility] 2020-07-16 2020-07-16 Outpatient Curly-Tashao VFP VFP [id number] [place] 02:54:00 02:54:00 _A_AH [id number] Family Practic [facility] 2020-07-16 2020-07-16 Outpatient Curly-Tashao VFP VFP [id number] [facility] 02:54:00 02:54:00 _A_AH 92538 Family Practic [facility] 2020-05-21 2020-05-21 Outpatient STLMLC STLMLC [id number] Common 00:00:00 00:00:00 [facility] 2020-05-20 2020-05-20 Outpatient STLMLC STLMLC [id number] Common 00:00:00 00:00:00 [facility] 2020-05-12 2020-05-12 Outpatient STLMLC STLMLC [id number] Common 00:00:00 00:00:00 [facility] 2020-04-30 2020-04-30 Outpatient STLMLC STLMLC [id number] Common 00:00:00 00:00:00 [facility] 2020-04-18 2020-04-18 Outpatient STLMLC STLMLC [id number] Common 00:00:00 00:00:00 [facility] 2020-02-06 2020-02-06 Outpatient STLMLC STLMLC [id number] Common 00:00:00 00:00:00 [facility] 2020-01-16 2020-01-16 Outpatient STLMLC STLMLC [id number] Common 00:00:00 00:00:00 [facility] 2020-01-15 2020-01-15 Outpatient STLMLC STLMLC [id number] Common 00:00:00 00:00:00 [facility] 2019-12-17 2019-12-17 Outpatient STLMLC STLMLC [id number] Common 00:00:00 00:00:00 [facility] 2019-11-21 2019-11-21 [facility] [id number] Common 15:40:00 15:40:00 [place] [address] [facility] 2019-10-22 2019-10-22 [facility] [id number] Common 10:38:00 10:38:00 [place] [address] [facility] 2019-10-02 2019-10-02 [facility] [id number] Common 11:02:00 11:02:00 [place] [address] [facility] 2019-09-26 2019-09-26 [facility] [id number] Common 14:15:00 14:15:00 [place] [address] [facility] 2019-09-20 2019-09-20 [facility] [id number] Common 16:10:00 16:10:00 [place] [address] [facility] 2019-09-13 2019-09-13 [facility] [id number] Common 15:19:00 15:19:00 [place] [address] [facility] 2019-09-06 2019-09-06 [facility] [id number] Common 16:13:00 16:13:00 [place] [address] [facility] 2019-09-04 2019-09-04 [facility] [id number] Common 11:20:00 11:20:00 [place] [address] [facility] 2019-08-28 2019-08-28 [facility] [id number] Common 09:58:00 09:58:[address] [facility] [address] [facility] 2019-08-07 2019-08-07 [facility] [id number] Common 09:40:00 09:40:00 [place] [address] [facility] 2019-07-24 2019-07-24 [facility] [id number] Common 16:54:00 16:54:00 [place] [address] [facility] 2019-07-17 2019-07-17 [facility] [id number] Common 16:20:00 16:20:[address] [place] [address] [facility] 2019-07-13 2019-07-13 [facility] [id number] Common 09:00:00 09:00:[address] [facility] 2019-05-09 2019-05-09 Outpatient Curly-Mbayo VFP VF [id number] [facility] 07:15:00 07:15:00 _A_AH [id number] Family Practic e 2019-05-09 2019-05-09 Outpatient Curly-Mbayo VFP VF [id number] [facility] 07:15:00 07:15:00 _A_AH 67713 Family Practic e 2019-05-09 2019-05-09 Outpatient Curly-Mbayo VFP VF 793 [facility]202 [facility] 07:15:00 07:15:00 _A_AH [id number] Family Practic e Results Test Description Test Time Test Comments Results Result Comments Source Microalbumin/Creat Ratio, Random Ur 2021-03-04 00:00:00 Test Item Value Reference Range Interpretation Comme nts Creatinine, Urine (test code = 2161-8) 62.3 Not Estab. Albumin, Urine (test code = 72437-2) 472.6 Not Estab. Alb/Creat Ratio (test code = 20521-6) 759 0-29 [facility] [id number] 11:31:00 Test Item Value Reference Range Interpretation Comments POC-GLUCOSE METER 193 mg/dL 70-110 H : TESTED A T [facility] 6720 ([employer]) (test code = [employer] [facility], 1538) 477[address]: Tile Grinder/Techni daisy ID = [id number] for CR JANI SHARMA A POCT-GLUCOSE [id number] 08:31:00 Test Item Value Reference Range Interpretation Comments POC-GLUCOSE METER 230 mg/dL 70-110 H : TESTED A T [facility] 6720 ([employer]) (test code = [facility], 1538) 49726: Tile Grinder/Techni daisy ID = [id number] for CR UJANI SALGADO BASIC METABOLIC [id number] 05:55:00 Test Item Value Reference Range Interpretation Comments SODIUM (BEAKER) 138 meq/L 136-145 (test code = 381) POTASSIUM (BEAKER) 4.4 meq/L 3.5-5.1 (test code = 379) CHLORIDE (BEAKER) 103 meq/L 98-107 (test code = 382) CO2 (BEAKER) (test 27 meq/L 22-29 code = 355) BLOOD UREA NITROGEN 13 mg/dL 7-21 (BEAKER) (test code = 354) CREATININE (BEAKER) 1.07 mg/dL 0.57-1.25 (test code = 358) GLUCOSE RANDOM 271 mg/dL 70-105 H (BEAKER) (test code = 652) CALCIUM (BEAKER) 9.1 mg/dL 8.4-10.2 (test code = 697) EGFR (BEAKER) (test 60 mL/min/1.73 ESTIMA MYRANDA GFR IS code = 1092) sq m NOT ACCURATE CREATININE CLEARANCE IN PREDICTING GLOMERULAR FILTRATION RATE . ESTIMATED GFR I S NOT APPLICABLE FOR DIALYSIS PATIEN TS. Tile Grinder ID - PETER MCBC W/PLT COUNT & AUTO [id number] 05:31:00 Test Item Value Reference Range Interpretation Comments WHITE BLOOD CELL COUNT (BEAKER) 7.2 K/ L 3.5-10.5 (test code = 775) RED BLOOD CELL COUNT (BEAKER) 3.72 M/ L 3.93-5.22 L (test code = 761) HEMOGLOBIN (BEAKER) (test code = 10.0 GM/DL 11.2-15.7 L 410) HEMATOCRIT (BEAKER) (test code = 31.7 % 34.1-44.9 L 411) MEAN CORPUSCULAR VOLUME (BEAKER) 85.2 fL 79.4-94.8 (test code = 753) MEAN CORPUSCULAR HEMOGLOBIN 26.9 pg 25.6-32.2 (BEAKER) (test code = 751) MEAN CORPUSCULAR HEMOGLOBIN CONC 31.5 GM/DL 32.2-35.5 L (BEAKER) (test code = 752) RED CELL DISTRIBUTION WIDTH 17.2 % 11.7-14.4 H (BEAKER) (test code = 412) PLATELET COUNT (BEAKER) (test 227 K/CU MM 150-450 code = 756) MEAN PLATELET VOLUME (BEAKER) 9.8 fL 9.4-12.3 (test code = 754) NUCLEATED RED BLOOD CELLS 0 /100 WBC 0-0 (BEAKER) (test code = 413) NEUTROPHILS RELATIVE PERCENT 69 % (BEAKER) (test code = 429) LYMPHOCYTES RELATIVE PERCENT 15 % (BEAKER) (test code = 430) MONOCYTES RELATIVE PERCENT 13 % (BEAKER) (test code = 431) EOSINOPHILS RELATIVE PERCENT 3 % (BEAKER) (test code = 432) BASOPHILS RELATIVE PERCENT 0 % (BEAKER) (test code = 437) NEUTROPHILS ABSOLUTE COUNT 4.95 K/ L 1.56-6.13 (BEAKER) (test code = 670) LYMPHOCYTES ABSOLUTE COUNT 1.07 K/ L 1.18-3.74 L (BEAKER) (test code = 414) MONOCYTES ABSOLUTE COUNT (BEAKER) 0.90 K/ L 0.24-0.36 H (test code = 415) EOSINOPHILS ABSOLUTE COUNT 0.23 K/ L 0.04-0.36 (BEAKER) (test code = 416) BASOPHILS ABSOLUTE COUNT (BEAKER) 0.03 K/ L 0.01-0.08 (test code = 417) IMMATURE GRANULOCYTES-RELATIVE 0 % 0-1 PERCENT (BEAKER) (test code = 2801) POCT-GLUCOSE [id number] 21:21:00 Test Item Value Reference Range Interpretation Comments POC-GLUCOSE METER 137 mg/dL 70-110 H : Notified RN/MD: ([facility]) (test code = TESTED AT [place] [address] 1538) [facility], [address]: Tile Grinder/Techni daisy ID = [id number] for SA ONDINA GEORGE [id number] 17:06:00 Test Item Value Reference Range Interpretation Comments ACTIVATED CLOTTING TIME 164 sec : 74 -137 seconds, ([facility]) (test code = Baseli ne: TESTED AT 441) [facility] [address] [place] [address], 7[address] 30: Tile Grinder/Techni daisy ID = [id number] for CLAUDE HOLDER [id number] 16:53:00 Test Item Value Reference Range Interpretation Comments ACTIVATED CLOTTING TIME 175 sec : 74 -137 seconds, (BEAKER) (test code = Ryan ne: TESTED AT 441) [facility] 67[address] [facility], 7[address] 30: Tile Grinder/Techni daisy ID = [id number] for CLAUDE HOLDER [id number] 16:53:00 Test Item Value Reference Range Interpretation Comments ACTIVATED CLOTTING TIME 208 sec : 74 -137 seconds, (BEAKER) (test code = Pandai ne: TESTED AT 441) [facility] 67[address] [facility], 770 30: Tile Grinder/Techni daisy ID = [id number] for VICTORINA HOLDERICA [id number] 16:06:00 Test Item Value Reference Range Interpretation Comments ACTIVATED CLOTTING TIME 296 sec : 74 -137 seconds, (BEAKER) (test code = Ryan ne: TESTED AT 441) [facility] 67[address] [facility], 770 30: Tile Grinder/Techni daisy ID = [id number] for CLAUDE HOLDER POCT-GLUCOSE [id number] 12:21:00 Test Item Value Reference Range Interpretation Comments POC-GLUCOSE METER 127 mg/dL 70-110 H : TESTED A T [facility] 6720 (BEAKER) (test code = [facility], 1538) [address]: Tile Grinder/Techni daisy ID = [id number] for IgConstance alvarenga basim POCT-GLUCOSE [id number] 08:51:00 Test Item Value Reference Range Interpretation Comments POC-GLUCOSE METER 163 mg/dL 70-110 H : TESTED A T [facility] 6720 (BEAKER) (test code = [facility], 1538) 67[address]: Tile Grinder/Techni daisy ID = [id number] for Igbalakat, She basim BASIC METABOLIC [id number] 06:38:00 Test Item Value Reference Range Interpretation Comments SODIUM (BEAKER) 139 meq/L 136-145 (test code = 381) POTASSIUM (BEAKER) 4.4 meq/L 3.5-5.1 (test code = 379) CHLORIDE (BEAKER) 104 meq/L 98-107 (test code = 382) CO2 (BEAKER) (test 28 meq/L 22-29 code = 355) BLOOD UREA NITROGEN 14 mg/dL 7-21 (BEAKER) (test code = 354) CREATININE (BEAKER) 1.02 mg/dL 0.57-1.25 (test code = 358) GLUCOSE RANDOM 226 mg/dL 70-105 H (BEAKER) (test code = 652) CALCIUM (BEAKER) 8.9 mg/dL 8.4-10.2 (test code = 697) EGFR (BEAKER) (test 64 mL/min/1.73 ESTIMA MYRANDA GFR IS code = 1092) sq m NOT ACCURATE CREATININE CLEARANCE IN PREDICTING GLOMERULAR FILTRATION RATE . ESTIMATED GFR I S NOT APPLICABLE FOR DIALYSIS PATIEN TS. Tile Grinder ID - BHUMIKA WCBC W/PLT COUNT & AUTO [id number] 05:45:00 Test Item Value Reference Range Interpretation Comments WHITE BLOOD CELL COUNT (BEAKER) 6.4 K/ L 3.5-10.5 (test code = 775) RED BLOOD CELL COUNT (BEAKER) 3.64 M/ L 3.93-5.22 L (test code = 761) HEMOGLOBIN (BEAKER) (test code = 9.6 GM/DL 11.2-15.7 L 410) HEMATOCRIT (BEAKER) (test code = 31.8 % 34.1-44.9 L 411) MEAN CORPUSCULAR VOLUME (BEAKER) 87.4 fL 79.4-94.8 (test code = 753) MEAN CORPUSCULAR HEMOGLOBIN 26.4 pg 25.6-32.2 (BEAKER) (test code = 751) MEAN CORPUSCULAR HEMOGLOBIN CONC 30.2 GM/DL 32.2-35.5 L (BEAKER) (test code = 752) RED CELL DISTRIBUTION WIDTH 17.4 % 11.7-14.4 H (BEAKER) (test code = 412) PLATELET COUNT (BEAKER) (test 231 K/CU MM 150-450 code = 756) MEAN PLATELET VOLUME (BEAKER) 10.3 fL 9.4-12.3 (test code = 754) NUCLEATED RED BLOOD CELLS 0 /100 WBC 0-0 (BEAKER) (test code = 413) NEUTROPHILS RELATIVE PERCENT 63 % (BEAKER) (test code = 429) LYMPHOCYTES RELATIVE PERCENT 18 % (BEAKER) (test code = 430) MONOCYTES RELATIVE PERCENT 14 % (BEAKER) (test code = 431) EOSINOPHILS RELATIVE PERCENT 4 % (BEAKER) (test code = 432) BASOPHILS RELATIVE PERCENT 1 % (BEAKER) (test code = 437) NEUTROPHILS ABSOLUTE COUNT 4.01 K/ L 1.56-6.13 (BEAKER) (test code = 670) LYMPHOCYTES ABSOLUTE COUNT 1.15 K/ L 1.18-3.74 L (BEAKER) (test code = 414) MONOCYTES ABSOLUTE COUNT (BEAKER) 0.90 K/ L 0.24-0.36 H (test code = 415) EOSINOPHILS ABSOLUTE COUNT 0.26 K/ L 0.04-0.36 (BEAKER) (test code = 416) BASOPHILS ABSOLUTE COUNT (BEAKER) 0.03 K/ L 0.01-0.08 (test code = 417) IMMATURE GRANULOCYTES-RELATIVE 0 % 0-1 PERCENT (BEAKER) (test code = 2801) POCT-GLUCOSE [id number] 22:11:00 Test Item Value Reference Range Interpretation Comments POC-GLUCOSE METER 210 mg/dL 70-110 H : TESTED A T [facility] 6720 (BEAKER) (test code = [facility], [facility]) 8[address]: Tile Grinder/Techni daisy ID = [id number] for Gertrude Waldrop POCT-GLUCOSE [id number] 18:24:00 Test Item Value Reference Range Interpretation Comments POC-GLUCOSE METER 157 mg/dL 70-110 H : TESTED A T [facility] 6720 (BEAKER) (test code = [facility], 1538) [address]: Tile Grinder/Techni daisy ID = [id number] for Fa ircloth, Wanda POCT-GLUCOSE [id number] 12:10:00 Test Item Value Reference Range Interpretation Comments POC-GLUCOSE METER 146 mg/dL 70-110 H : TESTED A T [facility] 6720 (BEAKER) (test code = [facility], 1538) 882[address]: Tile Grinder/Techni daisy ID = [id number] for Fa ircloth, Wanda POCT-GLUCOSE [id number] 08:39:00 Test Item Value Reference Range Interpretation Comments POC-GLUCOSE METER 113 mg/dL 70-110 H : TESTED A T [facility] 6720 (BEAKER) (test code = [facility], 1538) 13024: Tile Grinder/Techni daisy ID = [id number] for Fa ircloth, Wanda BASIC METABOLIC [id number] 06:06:00 Test Item Value Reference Range Interpretation Comments SODIUM (BEAKER) 139 meq/L 136-145 (test code = 381) POTASSIUM (BEAKER) 4.5 meq/L 3.5-5.1 (test code = 379) CHLORIDE (BEAKER) 104 meq/L 98-107 (test code = 382) CO2 (BEAKER) (test 26 meq/L 22-29 code = 355) BLOOD UREA NITROGEN 16 mg/dL 7-21 (BEAKER) (test code = 354) CREATININE (BEAKER) 0.96 mg/dL 0.57-1.25 (test code = 358) GLUCOSE RANDOM 151 mg/dL 70-105 H (BEAKER) (test code = 652) CALCIUM (BEAKER) 9.0 mg/dL 8.4-10.2 (test code = 697) EGFR (BEAKER) (test 68 mL/min/1.73 ESTIMA MYRANDA GFR IS code = 1092) sq m NOT ACCURATE CREATININE CLEARANCE IN PREDICTING GLOMERULAR FILTRATION RATE . ESTIMATED GFR I S NOT APPLICABLE FOR DIALYSIS PATIEN TS. Tile Grinder ID - PIAYA LCBC W/PLT COUNT & AUTO [id number] 05:24:00 Test Item Value Reference Range Interpretation Comments WHITE BLOOD CELL COUNT (BEAKER) 8.0 K/ L 3.5-10.5 (test code = 775) RED BLOOD CELL COUNT (BEAKER) 3.66 M/ L 3.93-5.22 L (test code = 761) HEMOGLOBIN (BEAKER) (test code = 9.7 GM/DL 11.2-15.7 L 410) HEMATOCRIT (BEAKER) (test code = 31.5 % 34.1-44.9 L 411) MEAN CORPUSCULAR VOLUME (BEAKER) 86.1 fL 79.4-94.8 (test code = 753) MEAN CORPUSCULAR HEMOGLOBIN 26.5 pg 25.6-32.2 (BEAKER) (test code = 751) MEAN CORPUSCULAR HEMOGLOBIN CONC 30.8 GM/DL 32.2-35.5 L (BEAKER) (test code = 752) RED CELL DISTRIBUTION WIDTH 17.3 % 11.7-14.4 H (BEAKER) (test code = 412) PLATELET COUNT (BEAKER) (test 229 K/CU MM 150-450 code = 756) MEAN PLATELET VOLUME (BEAKER) 9.8 fL 9.4-12.3 (test code = 754) NUCLEATED RED BLOOD CELLS 0 /100 WBC 0-0 (BEAKER) (test code = 413) NEUTROPHILS RELATIVE PERCENT 66 % (BEAKER) (test code = 429) LYMPHOCYTES RELATIVE PERCENT 17 % (BEAKER) (test code = 430) MONOCYTES RELATIVE PERCENT 13 % (BEAKER) (test code = 431) EOSINOPHILS RELATIVE PERCENT 3 % (BEAKER) (test code = 432) BASOPHILS RELATIVE PERCENT 1 % (BEAKER) (test code = 437) NEUTROPHILS ABSOLUTE COUNT 5.28 K/ L 1.56-6.13 (BEAKER) (test code = 670) LYMPHOCYTES ABSOLUTE COUNT 1.37 K/ L 1.18-3.74 (BEAKER) (test code = 414) MONOCYTES ABSOLUTE COUNT (BEAKER) 1.02 K/ L 0.24-0.36 H (test code = 415) EOSINOPHILS ABSOLUTE COUNT 0.25 K/ L 0.04-0.36 (BEAKER) (test code = 416) BASOPHILS ABSOLUTE COUNT (BEAKER) 0.04 K/ L 0.01-0.08 (test code = 417) IMMATURE GRANULOCYTES-RELATIVE 0 % 0-1 PERCENT (BEAKER) (test code = 2801) POCT-GLUCOSE [id number] 21:49:00 Test Item Value Reference Range Interpretation Comments POC-GLUCOSE METER 158 mg/dL 70-110 H : TESTED A T [facility] 6720 (BEAKER) (test code = [facility], 153) 810[address]: Tile Grinder/Techni daisy ID = [id number] for Manuel Marcelino POCT-GLUCOSE [id number] 18:10:00 Test Item Value Reference Range Interpretation Comments POC-GLUCOSE METER 152 mg/dL 70-110 H : TESTED A T [facility] 6720 (BEAKER) (test code = [facility], 153) [id number]: Tile Grinder/Techni daisy ID = [id number] for Constance David POCT-GLUCOSE [id number] 12:52:00 Test Item Value Reference Range Interpretation Comments POC-GLUCOSE METER 149 mg/dL 70-110 H : TESTED A T [facility] 6720 (BEAKER) (test code = [facility] [place], 1538) [id number]: Tile Grinder/Techni daisy ID = [id number] for Constance David basim POCT-GLUCOSE [id number] 09:18:00 Test Item Value Reference Range Interpretation Comments POC-GLUCOSE METER 141 mg/dL 70-110 H : TESTED A T [facility] 6720 (BEAKER) (test code = [facility] [place], 1538) [id number]: Tile Grinder/Techni daisy ID = [id number] for Constance David basim BASIC METABOLIC [id number] 07:12:00 Test Item Value Reference Range Interpretation Comments SODIUM (BEAKER) 136 meq/L 136-145 (test code = 381) POTASSIUM (BEAKER) 4.5 meq/L 3.5-5.1 Specimen slightly (test code = 379) hemolyzed CHLORIDE (BEAKER) 102 meq/L 98-107 (test code = 382) CO2 (BEAKER) (test 25 meq/L 22-29 code = 355) BLOOD UREA NITROGEN 17 mg/dL 7-21 (BEAKER) (test code = 354) CREATININE (BEAKER) 1.07 mg/dL 0.57-1.25 Specimen slightly (test code = 358) hemolyzed GLUCOSE RANDOM 172 mg/dL 70-105 H (BEAKER) (test code = 652) CALCIUM (BEAKER) 9.0 mg/dL 8.4-10.2 (test code = 697) EGFR (BEAKER) (test 60 mL/min/1.73 ESTIMA MYRANDA GFR IS code = 1092) sq m NOT ACCURATE CREATININE CLEARANCE IN PREDICTING GLOMERULAR FILTRATION RATE . ESTIMATED GFR I S NOT APPLICABLE FOR DIALYSIS PATIEN TS. Tile Grinder ID - [id number] W/PLT COUNT & AUTO [id number] 06:50:00 Test Item Value Reference Range Interpretation Comments WHITE BLOOD CELL COUNT (BEAKER) 7.5 K/ L 3.5-10.5 (test code = 775) RED BLOOD CELL COUNT (BEAKER) 3.84 M/ L 3.93-5.22 L (test code = 761) HEMOGLOBIN (BEAKER) (test code = 10.0 GM/DL 11.2-15.7 L 410) HEMATOCRIT (BEAKER) (test code = 33.5 % 34.1-44.9 L 411) MEAN CORPUSCULAR VOLUME (BEAKER) 87.2 fL 79.4-94.8 (test code = 753) MEAN CORPUSCULAR HEMOGLOBIN 26.0 pg 25.6-32.2 (BEAKER) (test code = 751) MEAN CORPUSCULAR HEMOGLOBIN CONC 29.9 GM/DL 32.2-35.5 L (BEAKER) (test code = 752) RED CELL DISTRIBUTION WIDTH 17.0 % 11.7-14.4 H (BEAKER) (test code = 412) PLATELET COUNT (BEAKER) (test 236 K/CU MM 150-450 code = 756) MEAN PLATELET VOLUME (BEAKER) 9.9 fL 9.4-12.3 (test code = 754) NUCLEATED RED BLOOD CELLS 0 /100 WBC 0-0 (BEAKER) (test code = 413) NEUTROPHILS RELATIVE PERCENT 66 % (BEAKER) (test code = 429) LYMPHOCYTES RELATIVE PERCENT 18 % (BEAKER) (test code = 430) MONOCYTES RELATIVE PERCENT 12 % (BEAKER) (test code = 431) EOSINOPHILS RELATIVE PERCENT 4 % (BEAKER) (test code = 432) BASOPHILS RELATIVE PERCENT 0 % (BEAKER) (test code = 437) NEUTROPHILS ABSOLUTE COUNT 4.94 K/ L 1.56-6.13 (BEAKER) (test code = 670) LYMPHOCYTES ABSOLUTE COUNT 1.32 K/ L 1.18-3.74 (BEAKER) (test code = 414) MONOCYTES ABSOLUTE COUNT (BEAKER) 0.90 K/ L 0.24-0.36 H (test code = 415) EOSINOPHILS ABSOLUTE COUNT 0.32 K/ L 0.04-0.36 (BEAKER) (test code = 416) BASOPHILS ABSOLUTE COUNT (BEAKER) 0.02 K/ L 0.01-0.08 (test code = 417) IMMATURE GRANULOCYTES-RELATIVE 0 % 0-1 PERCENT (BEAKER) (test code = 2801) POCT-GLUCOSE [id number] 23:42:00 Test Item Value Reference Range Interpretation Comments POC-GLUCOSE METER 245 mg/dL 70-110 H : TESTED A T [facility] 6720 (BEAKER) (test code = [place], 1538) 99082: Tile Grinder/Techni daisy ID = [id number] for Manuel Marcelino POCT-GLUCOSE [id number] 17:40:00 Test Item Value Reference Range Interpretation Comments POC-GLUCOSE METER 225 mg/dL 70-110 H : TESTED A T [facility] 6720 (BEAKER) (test code = [facility], 1538) 12094: Tile Grinder/Techni daisy ID = [id number] for IgcaridadajoConstance mas basim POCT-GLUCOSE [id number] 13:07:00 Test Item Value Reference Range Interpretation Comments POC-GLUCOSE METER 224 mg/dL 70-110 H : TESTED A T [facility] 6720 (BEAKER) (test code = [facility], 1538) 52319: Tile Grinder/Techni daisy ID = [id number] for Igbalajochace, She basim POCT-GLUCOSE [id number] 09:47:00 Test Item Value Reference Range Interpretation Comments POC-GLUCOSE METER 162 mg/dL 70-110 H : TESTED A T [facility] 6720 (BEAKER) (test code = [facility], 1538) 87350: Tile Grinder/Techni daisy ID = [id number] for Igbalajobi, She basim PLATELET AGGREGATION: FUNCTION [id number] 09:33:00 Test Item Value Reference Range Interpretation Comments [id number] Jw Garcia M.D. (BEAKER) (test code = (electonic signature) 4545) PLATELET COUNT AGG 246 K/CU MM 150-450 (BEAKER) (test code = 2656) ADP (BEAKER) (test code 25 % 62-100 L = 4654) PLATELET RICH 271 k/cu mm 200-300 PLASMA(BEAKER) (test code = 2134) PLATELET FUNCTION SCREEN Decreased aggregation INTERPRETATION (BEAKER) with ADP which (test code = 4655) indicates platelet dysfunction that may be due to medication effect, uremia, or other platelet function disorders. Clinical correlation is required. Platelet Function Screen results may be falsely low with platelet counts<75,000/cu mm.Tile Grinder ID- [id number] METABOLIC [id number] 04:41:00 Test Item Value Reference Range Interpretation Comments SODIUM (BEAKER) 140 meq/L 136-145 (test code = 381) POTASSIUM (BEAKER) 4.5 meq/L 3.5-5.1 (test code = 379) CHLORIDE (BEAKER) 106 meq/L 98-107 (test code = 382) CO2 (BEAKER) (test 27 meq/L 22-29 code = 355) BLOOD UREA NITROGEN 18 mg/dL 7-21 (BEAKER) (test code = 354) CREATININE (BEAKER) 1.00 mg/dL 0.57-1.25 (test code = 358) GLUCOSE RANDOM 237 mg/dL 70-105 H (BEAKER) (test code = 652) CALCIUM (BEAKER) 8.6 mg/dL 8.4-10.2 (test code = 697) EGFR (BEAKER) (test 65 mL/min/1.73 ESTIMA MYRANDA GFR IS code = 1092) sq m NOT ACCURATE CREATININE CLEARANCE IN PREDICTING GLOMERULAR FILTRATION RATE . ESTIMATED GFR I S NOT APPLICABLE FOR DIALYSIS PATIEN TS. Tile Grinder ID - EDASICBC W/PLT COUNT & AUTO [id number] 04:24:00 Test Item Value Reference Range Interpretation Comments WHITE BLOOD CELL COUNT (BEAKER) 6.6 K/ L 3.5-10.5 (test code = 775) RED BLOOD CELL COUNT (BEAKER) 3.57 M/ L 3.93-5.22 L (test code = 761) HEMOGLOBIN (BEAKER) (test code = 9.5 GM/DL 11.2-15.7 L 410) HEMATOCRIT (BEAKER) (test code = 31.4 % 34.1-44.9 L 411) MEAN CORPUSCULAR VOLUME (BEAKER) 88.0 fL 79.4-94.8 (test code = 753) MEAN CORPUSCULAR HEMOGLOBIN 26.6 pg 25.6-32.2 (BEAKER) (test code = 751) MEAN CORPUSCULAR HEMOGLOBIN CONC 30.3 GM/DL 32.2-35.5 L (BEAKER) (test code = 752) RED CELL DISTRIBUTION WIDTH 16.8 % 11.7-14.4 H (BEAKER) (test code = 412) PLATELET COUNT (BEAKER) (test 215 K/CU MM 150-450 code = 756) MEAN PLATELET VOLUME (BEAKER) 9.7 fL 9.4-12.3 (test code = 754) NUCLEATED RED BLOOD CELLS 0 /100 WBC 0-0 (BEAKER) (test code = 413) NEUTROPHILS RELATIVE PERCENT 61 % (BEAKER) (test code = 429) LYMPHOCYTES RELATIVE PERCENT 21 % (BEAKER) (test code = 430) MONOCYTES RELATIVE PERCENT 13 % (BEAKER) (test code = 431) EOSINOPHILS RELATIVE PERCENT 4 % (BEAKER) (test code = 432) BASOPHILS RELATIVE PERCENT 0 % (BEAKER) (test code = 437) NEUTROPHILS ABSOLUTE COUNT 4.00 K/ L 1.56-6.13 (BEAKER) (test code = 670) LYMPHOCYTES ABSOLUTE COUNT 1.36 K/ L 1.18-3.74 (BEAKER) (test code = 414) MONOCYTES ABSOLUTE COUNT (BEAKER) 0.88 K/ L 0.24-0.36 H (test code = 415) EOSINOPHILS ABSOLUTE COUNT 0.28 K/ L 0.04-0.36 (BEAKER) (test code = 416) BASOPHILS ABSOLUTE COUNT (BEAKER) 0.02 K/ L 0.01-0.08 (test code = 417) IMMATURE GRANULOCYTES-RELATIVE 1 % 0-1 PERCENT (BEAKER) (test code = 2801) POCT-GLUCOSE [id number] 21:48:00 Test Item Value Reference Range Interpretation Comments POC-GLUCOSE METER 236 mg/dL 70-110 H : TESTED A T [facility] 6720 (BEAKER) (test code = [facility], 153) 92250: Tile Grinder/Techni daisy ID = [id number] for Cassie Abdi POCT-GLUCOSE [id number] 17:47:00 Test Item Value Reference Range Interpretation Comments POC-GLUCOSE METER 224 mg/dL 70-110 H : TESTED A T [facility] 6720 (BEAKER) (test code = [facility], 153) 41479: Tile Grinder/Techni daisy ID = [id number] for KEIRY LOZANO CAITLIN POCT-GLUCOSE [id number] 13:24:00 Test Item Value Reference Range Interpretation Comments POC-GLUCOSE METER 245 mg/dL 70-110 H : TESTED A T [facility] 6720 (BEAKER) (test code = [facility], 153) 91826: Tile Grinder/Techni daisy ID = [id number] for Alanna Garces RAD, CHEST, 1 VIEW, NON [id number] 11:21:00Reason for exam:->preop evalShould this be performed at the bedside?->Yes [facility] 1940 Sex: FFINAL REPORT EXAMINATION: RAD, CHEST, 1 VIEW, NON DEPT. INDICATION: 79-year-old female, preoperative examination. COMPARISON: None. FINDINGS:Mild to moderate cardiomegaly. Pulmonary dasha and vasculature are within normal limits. No evidence of consolidation. No pleural effusion. No pneumothorax. Ocay-qt-ojerhfnw degenerative changes of the bilateral shoulders. Visualized soft tissues are unremarkable. IMPRESSION:No evidence of pneumonia or other acute cardiopulmonary abnormality. Mild to moderate cardiomegaly. Signed: More Bullard Verified Date/Time: 07/05/2020 11:21:30 Reading Location: [address] Body Reading Room POCT-GLUCOSE [id number] 08:59:00 Test Item Value Reference Range Interpretation Comments POC-GLUCOSE METER 195 mg/dL 70-110 H : TESTED A T [facility] 6720 (BEAKER) (test code = [place], 1538) 53273: Tile Grinder/Techni daisy ID = [id number] for CAITLIN KENNEY BASIC METABOLIC [id number] 06:20:00 Test Item Value Reference Range Interpretation Comments SODIUM (BEAKER) 138 meq/L 136-145 (test code = 381) POTASSIUM (BEAKER) 4.7 meq/L 3.5-5.1 Specimen slightly (test code = 379) hemolyzed CHLORIDE (BEAKER) 104 meq/L 98-107 (test code = 382) CO2 (BEAKER) (test 25 meq/L 22-29 code = 355) BLOOD UREA NITROGEN 17 mg/dL 7-21 (BEAKER) (test code = 354) CREATININE (BEAKER) 1.04 mg/dL 0.57-1.25 Specimen slightly (test code = 358) hemolyzed GLUCOSE RANDOM 251 mg/dL 70-105 H (BEAKER) (test code = 652) CALCIUM (BEAKER) 8.8 mg/dL 8.4-10.2 (test code = 697) EGFR (BEAKER) (test 62 mL/min/1.73 ESTIMA MYRANDA GFR IS code = 1092) sq m NOT ACCURATE CREATININE CLEARANCE IN PREDICTING GLOMERULAR FILTRATION RATE . ESTIMATED GFR I S NOT APPLICABLE FOR DIALYSIS PATIEN TS. Tile Grinder ID - EDASICBC W/PLT COUNT & AUTO [id number] 05:33:00 Test Item Value Reference Range Interpretation Comments WHITE BLOOD CELL COUNT (BEAKER) 6.6 K/ L 3.5-10.5 (test code = 775) RED BLOOD CELL COUNT (BEAKER) 3.56 M/ L 3.93-5.22 L (test code = 761) HEMOGLOBIN (BEAKER) (test code = 9.4 GM/DL 11.2-15.7 L 410) HEMATOCRIT (BEAKER) (test code = 31.5 % 34.1-44.9 L 411) MEAN CORPUSCULAR VOLUME (BEAKER) 88.5 fL 79.4-94.8 (test code = 753) MEAN CORPUSCULAR HEMOGLOBIN 26.4 pg 25.6-32.2 (BEAKER) (test code = 751) MEAN CORPUSCULAR HEMOGLOBIN CONC 29.8 GM/DL 32.2-35.5 L (BEAKER) (test code = 752) RED CELL DISTRIBUTION WIDTH 17.1 % 11.7-14.4 H (BEAKER) (test code = 412) PLATELET COUNT (BEAKER) (test 221 K/CU MM 150-450 code = 756) MEAN PLATELET VOLUME (BEAKER) 10.0 fL 9.4-12.3 (test code = 754) NUCLEATED RED BLOOD CELLS 0 /100 WBC 0-0 (BEAKER) (test code = 413) NEUTROPHILS RELATIVE PERCENT 62 % (BEAKER) (test code = 429) LYMPHOCYTES RELATIVE PERCENT 20 % (BEAKER) (test code = 430) MONOCYTES RELATIVE PERCENT 15 % (BEAKER) (test code = 431) EOSINOPHILS RELATIVE PERCENT 3 % (BEAKER) (test code = 432) BASOPHILS RELATIVE PERCENT 0 % (BEAKER) (test code = 437) NEUTROPHILS ABSOLUTE COUNT 4.09 K/ L 1.56-6.13 (BEAKER) (test code = 670) LYMPHOCYTES ABSOLUTE COUNT 1.31 K/ L 1.18-3.74 (BEAKER) (test code = 414) MONOCYTES ABSOLUTE COUNT (BEAKER) 0.96 K/ L 0.24-0.36 H (test code = 415) EOSINOPHILS ABSOLUTE COUNT 0.21 K/ L 0.04-0.36 (BEAKER) (test code = 416) BASOPHILS ABSOLUTE COUNT (BEAKER) 0.02 K/ L 0.01-0.08 (test code = 417) IMMATURE GRANULOCYTES-RELATIVE 0 % 0-1 PERCENT (BEAKER) (test code = 2801) POCT-GLUCOSE [id number] 20:52:00 Test Item Value Reference Range Interpretation Comments POC-GLUCOSE METER 292 mg/dL 70-110 H : TESTED A T [facility] 6720 (BEAKER) (test code = [facility], 1538) 95473: Tile Grinder/Techni daisy ID = [id number] for Cassie Abdi POCT-GLUCOSE [id number] 19:01:00 Test Item Value Reference Range Interpretation Comments POC-GLUCOSE METER 294 mg/dL 70-110 H : TESTED A T [facility] 6720 (BEAKER) (test code = [facility], 1538) 13949: Tile Grinder/Techni daisy ID = [id number] for Igbalajobi, She basim POCT-GLUCOSE [id number] 12:40:00 Test Item Value Reference Range Interpretation Comments POC-GLUCOSE METER 159 mg/dL 70-110 H : TESTED A T [facility] 6720 (BEAKER) (test code = [facility], 1538) 20250: Tile Grinder/Techni daisy ID = [id number] for Igbalajobi, She basim POCT-GLUCOSE [id number] 09:34:00 Test Item Value Reference Range Interpretation Comments POC-GLUCOSE METER 101 mg/dL 70-110 : TESTED A T [facility] 6720 (BEAKER) (test code = [place]AM[place], 1538) 08343: Tile Grinder/Techni daisy ID = [id number] for Constance David basim HEMOGLOBIN [id number] 08:28:00 Test Item Value Reference Range Interpretation Comments HEMOGLOBIN A1C (BEAKER) (test code = 9.6 % 4.3-6.1 H 368) TSH/FREE T4 IF [id number] 06:08:00 Test Item Value Reference Range Interpretation Comments THYROID STIMULATING HORMONE 0.972 uIU/mL 0.350-4.940 (BEAKER) (test code = 772) Tile Grinder ID - EDASIBASIC METABOLIC [id number] 05:44:00 Test Item Value Reference Range Interpretation Comments SODIUM (BEAKER) 140 meq/L 136-145 (test code = 381) POTASSIUM (BEAKER) 4.2 meq/L 3.5-5.1 Specimen slightly (test code = 379) hemolyzed CHLORIDE (BEAKER) 104 meq/L 98-107 (test code = 382) CO2 (BEAKER) (test 26 meq/L 22-29 code = 355) BLOOD UREA NITROGEN 15 mg/dL 7-21 (BEAKER) (test code = 354) CREATININE (BEAKER) 1.07 mg/dL 0.57-1.25 Specimen slightly (test code = 358) hemolyzed GLUCOSE RANDOM 194 mg/dL 70-105 H (BEAKER) (test code = 652) CALCIUM (BEAKER) 9.1 mg/dL 8.4-10.2 (test code = 697) EGFR (BEAKER) (test 60 mL/min/1.73 ESTIMA MYRANDA GFR IS code = 1092) sq m NOT ACCURATE CREATININE CLEARANCE IN PREDICTING GLOMERULAR FILTRATION RATE . ESTIMATED GFR I S NOT APPLICABLE FOR DIALYSIS PATIEN TS. Tile Grinder ID - EDASICBC W/PLT COUNT & AUTO [id number] 05:22:00 Test Item Value Reference Range Interpretation Comments WHITE BLOOD CELL COUNT (BEAKER) 7.3 K/ L 3.5-10.5 (test code = 775) RED BLOOD CELL COUNT (BEAKER) 3.78 M/ L 3.93-5.22 L (test code = 761) HEMOGLOBIN (BEAKER) (test code = 10.0 GM/DL 11.2-15.7 L 410) HEMATOCRIT (BEAKER) (test code = 32.6 % 34.1-44.9 L 411) MEAN CORPUSCULAR VOLUME (BEAKER) 86.2 fL 79.4-94.8 (test code = 753) MEAN CORPUSCULAR HEMOGLOBIN 26.5 pg 25.6-32.2 (BEAKER) (test code = 751) MEAN CORPUSCULAR HEMOGLOBIN CONC 30.7 GM/DL 32.2-35.5 L (BEAKER) (test code = 752) RED CELL DISTRIBUTION WIDTH 17.3 % 11.7-14.4 H (BEAKER) (test code = 412) PLATELET COUNT (BEAKER) (test 243 K/CU MM 150-450 code = 756) MEAN PLATELET VOLUME (BEAKER) 10.1 fL 9.4-12.3 (test code = 754) NUCLEATED RED BLOOD CELLS 0 /100 WBC 0-0 (BEAKER) (test code = 413) NEUTROPHILS RELATIVE PERCENT 66 % (BEAKER) (test code = 429) LYMPHOCYTES RELATIVE PERCENT 16 % (BEAKER) (test code = 430) MONOCYTES RELATIVE PERCENT 15 % (BEAKER) (test code = 431) EOSINOPHILS RELATIVE PERCENT 2 % (BEAKER) (test code = 432) BASOPHILS RELATIVE PERCENT 0 % (BEAKER) (test code = 437) NEUTROPHILS ABSOLUTE COUNT 4.82 K/ L 1.56-6.13 (BEAKER) (test code = 670) LYMPHOCYTES ABSOLUTE COUNT 1.20 K/ L 1.18-3.74 (BEAKER) (test code = 414) MONOCYTES ABSOLUTE COUNT (BEAKER) 1.12 K/ L 0.24-0.36 H (test code = 415) EOSINOPHILS ABSOLUTE COUNT 0.16 K/ L 0.04-0.36 (BEAKER) (test code = 416) BASOPHILS ABSOLUTE COUNT (BEAKER) 0.02 K/ L 0.01-0.08 (test code = 417) IMMATURE GRANULOCYTES-RELATIVE 0 % 0-1 PERCENT (BEAKER) (test code = 2801) SARS-COV2/RT-PCR ([facility])2020-07-04 03:49:00 Test Item Value Reference Range Interpretation Comments SARS-COV2/RT-PCR (test Negative Not Detected, Negative, code = 4336350) See external report for linked test SARS-COV-[address] [facility] JONAS (test code = 8343665) Negative result for this test determines that SARS-CoV-2 RNA was not present in the specimen above the Limit of Detection (LOD). However, Negative results do not preclude SARS-CoV-2 infection and should not be used as the sole basis for treatment or patient management decisions. Negative results must be combined with clinical observations, patient history, and epidemiological information. A false negative result may occur if a specimen is improperly collected, transported or handled. A false negative result should be considered if patient's recent exposures or clinical presentation indicate that COVID-19 (SARS-CoV-2) is likely and diagnostic tests for other causes of illness are negative. Re-testing should be considered in cases of suspected false negatives.The limit of detection for this assay is 100 copies/mL.This SARS CoV-2 test is a real-time RT-PCR test intended for the qualitative detection of nucleic acid from SARS-CoV-2 in a nasopharyngeal swab specimen collected from individuals suspected of COVID-19 by their healthcare provider.This test has not been Food and Drug Administration (FDA) cleared or approved. This is a modified version of an approved Emergency Use Authorization (EUA) and is in the process of review by the FDA. Once authorized by the FDA, the issued EUA will be effective until the declaration that circumstances exist justifying the authorization of the emergency use ofin vitro diagnostic tests for detection and/or diagnosis of COVID-19 is terminated under Section 564(b)(2) of the Act or the EUA is revoked under Section 564(g) of the Act.Testing was performed using the [employer] SARS-CoV-2 assay.Fact Sheet for Healthcare Providers:https://www.VPIsystems.hughes/jaylene/RT_SAR Z-PlP-5_AAE_Jpgz_Ktdgz_44-488227.pdfFact Sheet for Healthcare Patients:https://www.molecular.hughes/s al/IL_PQUN-MaF-5_Zulwwyg_Kbpo_Kwvnp_UG_42-036899D7.pdfPerforming Laboratory:[address] [address] POCT-GLUCOSE [id number] 23:10:00 Test Item Value Reference Range Interpretation Comments POC-GLUCOSE METER 302 mg/dL 70-110 H : TESTED Yifan T [facility] 6720 (BEAKER) (test code = MAMTA Seth [facility], 1538) 20912: Tile Grinder/Techni daisy ID = [id number] for Manuel Marcelino BASIC METABOLIC [id number] 18:18:00 Test Item Value Reference Range Interpretation Comments SODIUM (BEAKER) 138 meq/L 136-145 (test code = 381) POTASSIUM (BEAKER) 4.0 meq/L 3.5-5.1 (test code = 379) CHLORIDE (BEAKER) 104 meq/L 98-107 (test code = 382) CO2 (BEAKER) (test 25 meq/L 22-29 code = 355) BLOOD UREA NITROGEN 13 mg/dL 7-21 (BEAKER) (test code = 354) CREATININE (BEAKER) 0.87 mg/dL 0.57-1.25 (test code = 358) GLUCOSE RANDOM 207 mg/dL 70-105 H (BEAKER) (test code = 652) CALCIUM (BEAKER) 9.3 mg/dL 8.4-10.2 (test code = 697) EGFR (BEAKER) (test 76 mL/min/1.73 ESTIMA MYRANDA GFR IS code = 1092) sq m NOT ACCURATE CREATININE CLEARANCE IN PREDICTING GLOMERULAR FILTRATION RATE . ESTIMATED GFR I S NOT APPLICABLE FOR DIALYSIS PATIEN TS. Tile Grinder ID - ADMINHEPATIC FUNCTION [id number] 18:18:00 Test Item Value Reference Range Interpretation Comments TOTAL PROTEIN (BEAKER) (test code = 7.2 gm/dL 6.0-8.3 770) ALBUMIN (BEAKER) (test code = 1145) 3.4 g/dL 3.5-5.0 L BILIRUBIN TOTAL (BEAKER) (test code 0.6 mg/dL 0.2-1.2 = 377) BILIRUBIN DIRECT (BEAKER) (test 0.2 mg/dL 0.1-0.5 code = 706) ALKALINE PHOSPHATASE (BEAKER) (test 123 U/L 40-150 code = 346) AST (SGOT) (BEAKER) (test code = 29 U/L 5-34 353) ALT (SGPT) (BEAKER) (test code = 28 U/L 6-55 347) Tile Grinder ID - ADMINPROTHROMBIN [id number] 18:15:00 Test Item Value Reference Range Interpretation Comments PROTIME (BEAKER) 14.0 seconds 11.9-14.2 (test code = 759) INR (BEAKER) (test 1.11 See_Comment [Automat ed message] code = 370) The system [employer] generated this result transmitted ref erence range: <=5.90. The reference range was not used to int erpret this result as normal/abnormal . Effective 08/16/2018: PT Reference Range ChangeNew: 11.9-14.2 Previous: 11.7- 14.7RECOMMENDED COUMADIN/WARFARIN INR THERAPY RANGESSTANDARD DOSE: 2.0-3.0 Includes: PROPHYLAXIS for venous thrombosis, systemic embolization; TREATMENT for venous thrombosis and/or pulmonary embolus.HIGH RISK: Target INR is 2.5-3.5 for patients wiht mechanical heart valves.CBC W/PLT COUNT & AUTO [id number] 18:00:00 Test Item Value Reference Range Interpretation Comments WHITE BLOOD CELL COUNT (BEAKER) 7.6 K/ L 3.5-10.5 (test code = 775) RED BLOOD CELL COUNT (BEAKER) 3.74 M/ L 3.93-5.22 L (test code = 761) HEMOGLOBIN (BEAKER) (test code = 10.0 GM/DL 11.2-15.7 L 410) HEMATOCRIT (BEAKER) (test code = 32.0 % 34.1-44.9 L 411) MEAN CORPUSCULAR VOLUME (BEAKER) 85.6 fL 79.4-94.8 (test code = 753) MEAN CORPUSCULAR HEMOGLOBIN 26.7 pg 25.6-32.2 (BEAKER) (test code = 751) MEAN CORPUSCULAR HEMOGLOBIN CONC 31.3 GM/DL 32.2-35.5 L (BEAKER) (test code = 752) RED CELL DISTRIBUTION WIDTH 17.2 % 11.7-14.4 H (BEAKER) (test code = 412) PLATELET COUNT (BEAKER) (test 223 K/CU MM 150-450 code = 756) MEAN PLATELET VOLUME (BEAKER) 9.6 fL 9.4-12.3 (test code = 754) NUCLEATED RED BLOOD CELLS 0 /100 WBC 0-0 (BEAKER) (test code = 413) NEUTROPHILS RELATIVE PERCENT 66 % (BEAKER) (test code = 429) LYMPHOCYTES RELATIVE PERCENT 18 % (BEAKER) (test code = 430) MONOCYTES RELATIVE PERCENT 13 % (BEAKER) (test code = 431) EOSINOPHILS RELATIVE PERCENT 2 % (BEAKER) (test code = 432) BASOPHILS RELATIVE PERCENT 0 % (BEAKER) (test code = 437) NEUTROPHILS ABSOLUTE COUNT 4.97 K/ L 1.56-6.13 (BEAKER) (test code = 670) LYMPHOCYTES ABSOLUTE COUNT 1.40 K/ L 1.18-3.74 (BEAKER) (test code = 414) MONOCYTES ABSOLUTE COUNT (BEAKER) 1.00 K/ L 0.24-0.36 H (test code = 415) EOSINOPHILS ABSOLUTE COUNT 0.17 K/ L 0.04-0.36 (BEAKER) (test code = 416) BASOPHILS ABSOLUTE COUNT (BEAKER) 0.03 K/ L 0.01-0.08 (test code = 417) IMMATURE GRANULOCYTES-RELATIVE 0 % 0-1 PERCENT (BEAKER) (test code = 2801) POCT-GLUCOSE [id number] 17:50:00 Test Item Value Reference Range Interpretation Comments POC-GLUCOSE METER 187 mg/dL 70-110 H : TESTED A T [facility] 6720 (BEAKER) (test code = MAMTA Seth [facility], 1538) [address]: Tile Grinder/Techni daisy ID = [id number] for Constance David [id number] 16:34:00 RUN DATE: 10/19/18 [facility] - LAB *LIVE* PAGE 1 RUN TIME: 1634 Specimen Inquiry RUN USER: INTERFACE PATIENT: MEGHNA BIRD LOC: MAGGIE U #: [id number] AGE/SX: 77/F ROOM: FLAKITA RE10/12/18REG DR: Alfredo Cantu MD : 41 BED: 1 DIS: 10/13/18 STATUS: DIS Marcela TLOC: - SPEC #: [id number] RECD: 10/16/18 STATUS: GARDENIA REQ #: [id number] JENNA: 10/13/[address] [facility] DR: Alfredo Cantu MD ENTERED: 10/16/18 SP TYPE: SURG OTHR DR: Thao Crooks MD, Nizam Mohammad MD [place], Frank E MDORDERED: /GADIEL MAUREEN, SURG PATH LVL 4, PATH STAIN GROU COPIES TO: Thao Crooks MD [address] [place], [place] [address] [place] [address] [address] [email or web address] Baldemar Simeon MD [address] [place], [place] Babar Wang MD [address] [place] [address] HISTOLOGY: TISSUE ID BLK PCS ALFREDO LEV PROCEDURE DISPOSITION ____ ___ ___ ___ STOMACH, NOS A 1 1 AB/PAS MAUREEN STOMACH, NOS A 1 2 PATH STAIN GROU PROCEDURES:ALBLUE (10/16/18) PAS (10/16/18) SURG PATH LVL 4 (10/16/18) PATH STAIN GROU (10/16/18) TISSUES: A. STOMACH, NOS - GASTRIC POLYP ADENO MASS CONTINUED ON NEXT PAGE WILBUR Cantu DATE: 10/19/18 [facility] - LAB *LIVE* PAGE 2 RUN TIME: 1634 Specimen Inquiry RUN USER: INTERFACE ------- -----SPEC #: [id number] PATIENT: MEGHNA BIRD #[id number] (Continued) CLINICAL HISTORY HX CA LG INTESTINE -Z85.038; DYSPEPSIA-K30; PAIN -R10.9 CPT CODES CPT CODE(S): 86355 , 87367 , 52289 , , , , FINAL DIAGNOSIS Stomach, polypectomy: CHRONIC GASTRITIS WITH INTESTINAL METAPLASIA NEGATIVE FOR DYSPLASIA OR MALIGNANCY NEGATIVE FOR HELICOBACTER PYLORI ORGANISMS GROSS DESCRIPTION Gastric polyp. Received in formalin are two mendiola tissue fragments, 0.2 cm each, all as A. ba/nr Grossing performed at [facility] Pathology, [address] [place] [address], [address], [place] [address]. [employer]over [employer] Striper Operator: Carlos Sargent M.D. MICROSCOPIC DESCRIPTION Gastric polyp. Sections demonstrate gastric mucosa with chronic inflammation. No dysplasia or malignancy is seen. Alcian blue-PAS confirms the presence of focal intestinal metaplasia. No dysplasia or malignancy is identified. The Diff Quik stain demonstrates no evidence of Helicobacter pylori organ isms. Signed SIGNATURE ON FILE Nain Lott Jamal 10/19/18 1634 END OF REPORT GLUCOSE BEDSIDE [id number] 16:38:00 Test Item Value Reference Range Interpretation Comments GLUCOSE BEDSIDE TESTING (test code 174 mg/dL 70-110 H = GLUBED) GLUCOSE BEDSIDE [id number] 15:01:00 Test Item Value Reference Range Interpretation Comments GLUCOSE BEDSIDE TESTING (test code 193 mg/dL 70-110 H = GLUBED) GLUCOSE BEDSIDE [id number] 12:01:00 Test Item Value Reference Range Interpretation Comments GLUCOSE BEDSIDE TESTING (test code 178 mg/dL 70-110 H = GLUBED) GLUCOSE BEDSIDE [id number] 07:56:00 Test Item Value Reference Range Interpretation Comments GLUCOSE BEDSIDE TESTING (test code 191 mg/dL 70-110 H = GLUBED) BASIC METABOLIC [id number] 03:36:00 Test Item Value Reference Range Interpretation [...] CA) 8.5 MG/DL 8.5-10.1 N CBC W/AUTO [id number] 03:27:00 Test Item Value Reference Range Interpretation [...] = NO DIFF/SCN CRITERIA MDIFF) GLUCOSE BEDSIDE [id number] 21:07:00 Test Item Value Reference Range Interpretation Comments GLUCOSE BEDSIDE TESTING (test code 186 mg/dL 70-110 H = GLUBED) GLYCOSYLATED HEMOGLOBIN [id number] 17:49:00 Test Item Value Reference Range Interpretation Comments GLYCOSYLATED HEMOGLOBIN (HA1C) 8.2 % A1C 4.2-6.3 H (test code = GLYHGB) ESTIMATED AVERAGE GLUCOSE (test 189 MG/DLest code = EAG) COMPREHENSIVE METABOLIC [id number] 17:45:00 Test Item Value Reference Range Interpretation [...] = LDL/HDL) 1.61 Ratio 1.48-3.22 Avg N [id number] 17:45:00 Test Item Value Reference Range Interpretation Comments PHOSPHOROUS (test code = PHOS) 2.7 MG/DL 2.5-4.9 N RULE OUT [place] [id number] 17:45:00 Test Item Value Reference Range Interpretation [...] nume rical results may timothy yby method. [id number] 17:45:00 Test Item Value Reference Range Interpretation Comments MAGNESIUM (test code = MAG) 2.0 MG/DL 1.8-2.4 N THROMBOPLASTIN TIME [id number] 17:37:00 Test Item Value Reference Range Interpretation Comments THROMBOPLASTIN TIME PARTIAL 30.9 SECONDS 26-35 N (test code = PTT) PROTHROMBIN [id number] 17:36:00 Test Item Value Reference Range Interpretation Comments PT PATIENT (test code = PTP) 13.3 SECONDS 9.3-12.9 H INTERNATIONAL NORMAL RATIO 1.15 INR Unit 0.8-1.2 N (test code = INR) CBC W/AUTO [id number] 17:34:00 Test Item Value Reference Range Interpretation [...] DIFF/SCN CRITERIA MDIFF) - XR CHEST 1 [id number] 17:02:00 Name: MEGHNA BIRD [place] : 1940 Age/S: 77 / F [place] Unit #: [id number] Loc: [place] [address] Phys: Alfredo Cantu MD Acct: [id number] Dis Date: Status: ADM IN PHONE #: [phone] Exam Date: 10/12/2018 1640 FAX #: Reason: CAD EXAMS: CPT: [id number] XR CHEST 1 V 81920 Fluoro Time: DAP (Gy m2): Air Kerma (mGy): EXAMINATION: - XR CHEST 1 V. LOCATION: S 17. HISTORY: CAD. COMPARISON: None. TECHNIQUE: Single AP view of the chest was obtained. FINDINGS: The heart is n ormal in size. There is mild blunting of the right costophrenic angle. The left lung is clear. No acute osseous abnormality is identified. IMPRESSION: Small right pleural effusion and/or atelectasis. at 1702 Reported and signed by: Jorge Rosenberg M.D. CC: Alfredo Cantu MD; Baldemar Simeon MD; Babar Wang MD PAGE 1 Signed Report Name: MEGHNA BIRD [place] : 1940 Age/S: 77 / F [address] [address] [place] Unit #: [id number]: [place] [address] Phys: Alfredo Cantu MD Acct: [id number] Dis Date: Status: ADM IN PHONE #: [phone] Exam Date: 10/12/2018 1640 FAX #: Reason: CAD EXAMS: CPT: [id number] XR CHEST 1 V 42060 Fluoro Time: DAP (Gy m2): Air Kerma (mGy): (Continued) Technologist: Harsha Carr, RT(R)(CT)(MRI)Trnscb Date/Time: 10/12/2018 (7762) AnglePR7 Orig Print D/T: S: 10/12/2018 (6751) PAGE 2 Signed ReportGLUCOSE BEDSIDE [id number] 15:59:00 Test Item Value Reference Range Interpretation Comments GLUCOSE BEDSIDE TESTING (test code 114 mg/dL 70-110 H = GLUBED)
[2022-01-05 12:02] LABS: Absolute Lymphocytes (CBC) 1.2 K/uL (0.7-4.9); Hematocrit 34.1 % (36.0-45.0); Lymphocytes % 15.7 % (15.3-44.8); MCV 86.6 fL (80-100); MPV 7.9 fL (7.6-11.3); RBC Red Blood Cell Count 3.94 M/uL (3.86-4.86)
[2022-01-05 12:03] LABS: Protime INR 1.16
[2022-01-05 12:10] LABS: SARS-CoV-2 Antigen Rapid Res Negative (Negative)
[2022-01-05 12:22] LABS: Urine Blood Trace-intact (Negative); Urine Glucose Negative (Negative); Urine Protein 2+ (Negative)
[2022-01-05 12:32] LABS: Albumin 3.2 g/dL (3.4-5.0); Bilirubin Direct 0.2 mg/dL (0-0.2); Bilirubin Total 0.4 mg/dL (0.2-1.0); Magnesium 1.9 mg/dL (1.8-2.4); Potassium 3.9 mmol/L (3.5-5.1)
--- NOTE | 2022-01-05 13:22 | RAD REPORT ---
EXAM DESCRIPTION: CT - Chest Abdomen Pelvis W Cont - 01/05/2022 1:06 pm CLINICAL HISTORY: Shortness of breath and abdominal pain COMPARISON: CT chest 2017 TECHNIQUE: Computed axial tomography of the chest, abdomen and pelvis was obtained. 100 cc Isovue-30 0 was administered intravenously. Oral contrast was not requested. This limits evaluation of bowel. All CT scans are performed using dose optimization technique as appropriate and may include automated exposure control or mA/KV adjustment according to patient size. FINDINGS: Tiny right lung nodules unchanged. Small ill-defined left lower lobe opacity unchanged. Randolph th are benign. A pleural effusion is not present. No pericardial effusion No mediastinal or hilar lymphadenopathy A The liver, spleen, pancreas, adrenals and kidneys appear unremarkable. Hysterectomy. No adnexal mass No evidence of diverticulitis IMPRESSION: No acute abnormality involving the chest, abdomen or pelvis seen
--- NOTE | 2022-01-05 13:30 | RAD REPORT ---
EXAM DESCRIPTION: Maria Esther Single View01/05/2022 12:49 pm CLINICAL HISTORY: Shortness of breath COMPARISON: 2020 FINDINGS: The lungs appear clear of acute infiltrate. The heart is mildly enlarged IMPRESSION: No acute abnormalities displayed
--- NOTE | 2022-01-05 13:52 | EDPHYS ---
Physician Documentation [facility] Name: Gloria Longoria Age: 81 yrs Sex: Female : 1940 Arrival Date: 01/05/2022 Time: 11:03 Bed 8 Private MD: ED Physician Harris Black HPI: 01/05 11:08 This 81 yrs old Black Female presents to ER via EMS with complaints of Shortness Of jmm Breath. 11:08 The patient has shortness of breath at rest. Onset: The symptoms/episode began/occurred jmm acutely, this morning. Duration: The symptoms are continuous. The patient's shortness of breath has no apparent modifying factors. Associated signs and symptoms: Pertinent positives: non-productive cough, Pertinent negatives: fever. This is an 81 year old female with a history of chf, copd, dm, htn that presents to the ED with cough, shortness of breath beginning acutely this morning. Nebs administered prior to arrival. . Historical: - Allergies: 11:07 Sulfa (Sulfonamide Antibiotics); ph - PMHx: 11:07 ADD/ADHD; CHF; colon cancer; Diabetes - IDDM; Hypertension; Pneumonia; ph - Immunization history:: Adult Immunizations up to date. - Social history:: Smoking status: Patient denies any tobacco usage or history of. ROS: 11:08 Constitutional: Positive for body aches. jmm 11:08 Respiratory: Positive for cough, wheezing. 11:08 All other systems are negative. Exam: 11:08 Constitutional: This is a well developed, well nourished patient who is awake, alert, jmm and in no acute distress. Head/Face: atraumatic. Eyes: EOMI, no conjunctival erythema appreciated ENT: Moist Mucus Membranes Neck: Trachea midline, Supple Chest/axilla: Normal chest wall appearance and motion. Cardiovascular: Regular rate and rhythm. No edema appreciated 11:08 Back: Normal ROM Skin: General appearance color normal MS/ Extremity: Moves all extremities, no obvious deformities appreciated, no edema noted to the lower extremities Neuro: Awake and alert Psych: Behavior is normal, Mood is normal, Patient is cooperative and pleasant 11:08 Respiratory: mild left sided wheezing on auscultation. Vital Signs: 11:04 BP 169 / 64; Pulse 76; Resp 20; Temp 97.8; Pulse Ox 95% on R/A; Weight 101.6 kg; Height ph 5 ft. 2 in. (157.48 cm); Pain 0/10; 12:32 BP 156 / 55; Pulse 79; Resp 18; Pulse Ox 97% on 2 lpm NC; ph 13:30 BP 156 / 55; Pulse 78; Resp 18; Pulse Ox 99% on 2 lpm NC; ph 14:30 BP 143 / 106; Pulse 75; Resp 18; Pulse Ox 98% on 2 lpm NC; ph 15:30 BP 151 / 97; Pulse 76; Resp 18; Pulse Ox 98% on 2 lpm NC; ph 16:22 BP 152 / 89; Pulse 78; Resp 18; Temp 97.4; Pulse Ox 100% on 2 lpm NC; ph 11:04 Body Mass Index 40.97 (101.60 kg, 157.48 cm) ph MDM: 11:08 Patient medically screened. [facility] 13:48 Data reviewed: vital signs, nurses notes. Counseling: I had a detailed discussion with steph the patient and/or guardian regarding: the historical points, exam findings, and any diagnostic results supporting the discharge/admit diagnosis, lab results, radiology results, the need for further work-up and treatment in the hospital. ED course: I discussed the patient with ADRIANA Sorto whom accepted the patient to Dr. Greene's service. 01/05 11:09 Order name: Basic Metabolic Panel; Complete Time: 12:33 [facility] 01/05 11:09 Order name: CBC with Diff; Complete Time: 12:08 [facility] 01/05 11:09 Order name: LFT's; Complete Time: 12:33 [facility] 01/05 11:09 Order name: Magnesium; Complete Time: 12:33 [facility] 01/05 11:09 Order name: NT PRO-BNP; Complete Time: 12:33 [facility] 01/05 11:09 Order name: PT-INR; Complete Time: 12:08 [facility] 01/05 11:09 Order name: Troponin HS; Complete Time: 12:33 [facility] 01/05 11:09 Order name: XRAY Chest (1 view); Complete Time: 13:33 [facility] 01/05 11:09 Order name: EKG; Complete Time: 11:10 [facility] 01/05 11:20 Order name: SARS RAPID; Complete Time: 12:12 [facility] 01/05 12:22 Order name: Urine Dipstick-Ancillary; Complete Time: 12:23 EDFL 01/05 12:29 Order name: CT Chest, Abdomen, Pelvis - W/Contrast [facility] 01/05 12:54 Order name: Chest Abdomen Pelvis W Cont; Complete Time: 13:27 EDFL 01/05 11:09 Order name: Cardiac monitoring; Complete Time: 11:13 [facility] 01/05 11:09 Order name: EKG - Nurse/Tech; Complete Time: 11:13 [facility] 01/05 11:09 Order name: IV Saline Lock; Complete Time: 11:56 [facility] 01/05 11:09 Order name: Labs collected and sent; Complete Time: 11:56 [facility] 01/05 11:09 Order name: O2 Per Protocol; Complete Time: 11:13 [facility] 01/05 11:09 Order name: O2 Sat Monitoring; Complete Time: 11:12 [facility] 01/05 12:16 Order name: Urine Dipstick-Ancillary (obtain specimen); Complete Time: 12:29 [facility] Administered Medications: 16:06 Drug: SOLU-Medrol (methylPrednisoLONE) 125 mg Route: IVP; Site: right forearm; ph 16:22 Follow up: Response: No adverse reaction ph Disposition Summary: 01/05/22 13:52 Hospitalization Ordered Hospitalization Status: Observation [facility] Provider: oRsalio Greene Location: Telemetry/MedSurg (observation) [facility] Condition: Stable [facility] Problem: an acute exacerbation [facility] Symptoms: have improved [facility] Bed/Room Type: Standard [facility] Room Assignment: 414(01/05/22 15:38) jaHeber Diagnosis - COPD/ Chronic obstructive pulmonary disease with (acute) exacerbation [facility] Forms: - Medication Reconciliation Form [facility] - SBAR form [facility] Signatures: Dispatcher [employer] EDMS Abdon Troy PA PA Dionne Cotton, RN RN Bo Akins RN RN ja1 Corrections: (The following items were deleted from the chart) 13:52 13:48 ED course: I discussed the patient with ADRIANA Sorto whom accepted the patient to [facility] Dr. Piper service. . [facility] 15:38 13:52 [facility] antonina
--- NOTE | 2022-01-05 13:52 | ER ---
Nurse's Notes [facility] Name: Gloria Longoria Age: 81 yrs Sex: Female : 1940 Arrival Date: 01/05/2022 Time: 11:03 Bed 8 Private MD: Diagnosis: COPD/ Chronic obstructive pulmonary disease with (acute) exacerbation Presentation: 01/05 11:04 Chief complaint: EMS states: Shortness of breath that began at approx 0930 this morning. Hx of CHF and COPD, Spo2 99-100% RA, neb tx given, pt reports some improvement of symptoms, other VSS. Family states that pt had colonoscopy last then began having nausea and "not feeling good" on Tuesday. Coronavirus screen: Vaccine status: Patient reports receiving the 2nd dose of the covid vaccine. Ebola Screen: No symptoms or risks identified at this time. Initial Sepsis Screen: Does the patient meet any 2 criteria? No. Patient's initial sepsis screen is negative. Does the patient have a suspected source of infection? No. Patient's initial sepsis screen is negative. Risk Assessment: Do you want to hurt yourself or someone else? Patient reports no desire to harm self or others. Onset of symptoms was January 05, 2022. 11:04 Method Of Arrival: EMS: [facility] 11:04 Acuity: MALAIKA 3 ph Triage Assessment: 11:08 General: Appears in no apparent distress. Behavior is calm, cooperative, appropriate ph for age, Reports chills for fatigue for >3 days, Denies fever. Pain: Denies pain. Neuro: Level of Consciousness is awake, alert, obeys commands, Oriented to person, place, time, situation. Cardiovascular: Reports fatigue, shortness of breath, Denies chest pain, palpitations, Capillary refill < 3 seconds in bilateral fingers Patient's skin is warm and dry. Respiratory: Reports shortness of breath at rest Onset: The symptoms/episode began/occurred this morning, the patient has mild shortness of breath. GI: Reports nausea. : No signs and/or symptoms were reported regarding the genitourinary system. Derm: Skin is pink, warm \\T\\ dry. Musculoskeletal: Circulation, motion, and sensation intact. Range of motion: intact in all extremities. Historical: - Allergies: 11:07 Sulfa (Sulfonamide Antibiotics); ph - PMHx: 11:07 ADD/ADHD; CHF; colon cancer; Diabetes - IDDM; Hypertension; Pneumonia; ph - Immunization history:: Adult Immunizations up to date. - Social history:: Smoking status: Patient denies any tobacco usage or history of. Screenin:11 Abuse screen: Denies threats or abuse. Denies injuries from another. Nutritional ph screening: No deficits noted. Tuberculosis screening: No symptoms or risk factors identified. Fall Risk No fall in past 12 months (0 pts). IV access (20 points). Ambulatory Aid- Crutches/Cane/Walker (15 pts). Gait- Impaired (20 pts.). Mental Status- Oriented to own ability (0 pts). Total Tinsley Fall Scale indicates Low Risk Score (25-44 pts). Fall prevention measures have been instituted. Side Rails Up X 2 Frequent Obs/Assesments occuring Family Present and informed to notify staff if they need to leave bedside As available Patient and Family Educated on Fall Prevention Program and strategies. Assessment: 11:30 General: SEE TRIAGE ASSESSMENT. ph 12:32 Reassessment: Patient appears in no apparent distress at this time. Patient and/or ph family updated on plan of care and expected duration. Pain level reassessed. Patient is alert, oriented x 3, equal unlabored respirations, skin warm/dry/pink. 14:00 Reassessment: Patient appears in no apparent distress at this time. Patient and/or ph family updated on plan of care and expected duration. Pain level reassessed. Patient is alert, oriented x 3, equal unlabored respirations, skin warm/dry/pink. 15:00 Reassessment: Patient appears in no apparent distress at this time. Patient and/or ph family updated on plan of care and expected duration. Pain level reassessed. Patient is alert, oriented x 3, equal unlabored respirations, skin warm/dry/pink. 16:24 Cardiovascular: Rhythm is sinus rhythm. ph 16:56 Reassessment: Patient appears in no apparent distress at this time. Patient and/or ph family updated on plan of care and expected duration. Pain level reassessed. Patient is alert, oriented x 3, equal unlabored respirations, skin warm/dry/pink. Vital Signs: 11:04 BP 169 / 64; Pulse 76; Resp 20; Temp 97.8; Pulse Ox 95% on R/A; Weight 101.6 kg; Height ph 5 ft. 2 in. (157.48 cm); Pain 0/10; 12:32 BP 156 / 55; Pulse 79; Resp 18; Pulse Ox 97% on 2 lpm NC; ph 13:30 BP 156 / 55; Pulse 78; Resp 18; Pulse Ox 99% on 2 lpm NC; ph 14:30 BP 143 / 106; Pulse 75; Resp 18; Pulse Ox 98% on 2 lpm NC; ph 15:30 BP 151 / 97; Pulse 76; Resp 18; Pulse Ox 98% on 2 lpm NC; ph 16:22 BP 152 / 89; Pulse 78; Resp 18; Temp 97.4; Pulse Ox 100% on 2 lpm NC; ph 11:04 Body Mass Index 40.97 (101.60 kg, 157.48 cm) ph Vitals: 16:22 Cardiac Rhythm Assessment Sinus rhythm. ph ED Course: 11:03 Patient arrived in ED. ph 11:07 Triage completed. ph 11:07 Abdon Troy PA is PHCP. jmm 11:07 Harris Black MD is Attending Physician. jmm 11:10 Arm band placed on Patient placed in an exam room. ph 11:12 Patient has correct armband on for positive identification. Placed in gown. Bed in low ph position. Call light in reach. Side rails up X2. Client placed on continuous cardiac and pulse oximetry monitoring. NIBP monitoring applied. Door closed. Noise minimized. Warm blanket given. Pillow given. 11:55 Dionne Barnett, RN is Primary Nurse. ph 11:56 SARS RAPID Sent. ph 12:51 XRAY Chest (1 view) In Process Unspecified. EDMS 13:08 Chest Abdomen Pelvis W Cont In Process Unspecified. EDMS 13:51 Rosalio Greene is Hospitalizing Provider. jmm 16:24 No provider procedures requiring assistance completed. Patient admitted, IV remains in ph place. Administered Medications: 16:06 Drug: SOLU-Medrol (methylPrednisoLONE) 125 mg Route: IVP; Site: right forearm; ph 16:22 Follow up: Response: No adverse reaction ph Medication: 11:12 VIS not applicable for this client. ph Outcome: 13:52 Decision to Hospitalize by Provider. jmm 16:58 Admitted to Tele accompanied by tech, family with patient, room 414. ph 16:58 Condition: stable 16:58 Instructed on the need for admit. 17:34 Patient left the ED. vg1 Signatures: Dispatcher [employer] EDMS Abdon Troy PA PA jmm Hall, Patricia, RN RN Jaqui Tobin RN RN vg1
[2022-01-05] MEDS ORDERED: NITROGLYCERIN 0.4 MG/TAB SL PRN (14:53)
[2022-01-05] MEDS ORDERED: HYDROCODONE/APAP 5/325 MG TAB PO PRN (14:55)
[2022-01-05] MEDS ORDERED: ONDANSETRON 4 MG/2 ML VIAL IV PRN (14:55)
--- NOTE | 2022-01-05 15:04 | P.HP ---
Certification for Inpatient Patient admitted to: Observation With expected LOS: <2 Midnights Patient will require the following post-hospital care: None Practitioner: I am a practitioner with admitting privileges, knowledge of patient current condition, hospital course, and medical plan of care. Services: Services provided to patient in accordance with Admission requirements found in Title 42 Section 412.3 of the Code of Federal Regulations Patient History Date of Service: 01/05/22 Reason for admission: Shortness of breath History of Present Illness: Patient is an 81-year-old female with a past medical history significant for CHF, colon cancer, DM2, hypertension, ADD/ADHD, blindness who presents with complaint of shortness of breath that has been ongoing for a while. Patient is a poor historian and unable to provide accurate history. Patient indicated that she was at the [employer] office today when shortness of breath became worse. Patient reported that her home inhaler was ineffective. Patient reported associated signs and symptoms of chest tightness, cough, headache, dizziness and generalized malaise. Patient denies any other signs and symptoms. Symptoms are aggravated or relieved by nothing. Patient was referred to come to the ER for further management. Allergies Sulfa (Sulfonamide Antibiotics) Allergy (Intermediate, Verified 09/22/21 21:30) Rash Home Medications: Aspirin 81 mg PO DAILY 05/19/19 Furosemide 40 mg PO DAILY PRN 05/19/19 Insulin Detemir [Levemir] 80 units SQ BID 05/19/19 Metformin HCl [Glucophage Xr] 500 mg PO BID 05/19/19 Nitroglycerin [Nitrostat*] 0.4 mg SL PRN PRN MDD 3 tab 05/19/19 Pantoprazole [Protonix Tab*] 40 mg PO DAILY 05/19/19 Sertraline HCl 100 mg PO DAILY 05/19/19 Tramadol HCl [Ultram] 50 mg PO BID PRN 05/19/19 Trazodone [Desyrel*] 50 mg PO BEDTIME 05/19/19 Fluticasone/Salmeterol [Advair 250-50 Diskus] 1 each IH Q12HR #60 blst.w.dev 05/22/19 Amlodipine [Norvasc*] 5 mg PO BEDTIME 08/21/19 Bimatoprost [Lumigan Opthalmic Drops*] 1 drop EACH EYE BID 06/02/20 Ferrous Fumarate [Hemocyte] 324 mg PO DAILY #30 tablet 08/23/19 Rosuvastatin Calcium [Crestor] 40 mg PO BEDTIME 09/22/21 Spironolactone [Aldactone] 25 mg PO BID 09/22/21 Carvedilol [Coreg] 25 mg PO BID 01/05/22 Fluticasone/Salmeterol [Advair 250-50 Diskus] 2 inh IH DAILY 01/05/22 Insulin Lispro [Humalog] 10 units SQ TID 01/05/22 Pregabalin [Lyrica*] 75 mg PO BID 01/05/22 - Past Medical/Surgical History Diabetic: Yes -: Glaucoma -: CHF, diastolic dysfunction -: HTN -: GERD -: DM Neuropathy -: History of Colon CA -: Diabetes mellitus type 2 -: Fatty liver with Morbid Obesity -: CAD -: Cholecystectomy -: Colon resection -: Appendectomy -: Hysterectomy -: Right Rotator Cuff Repair -: Colectomy Psychosocial/ Personal History: She lives at home. Her daughter helps her at home. - Family History Mother -: Cancer Notes: colon Brother -: Hypertension Sister -: Heart disease, Hypertension, Lung disease, Cancer - Social History Smoking Status: Never smoker Alcohol use: No CD- Drugs: No Caffeine use: Yes Place of Residence: Home Review of Systems General: Malaise Eyes: Unremarkable ENT: Unremarkable Respiratory: Cough, Shortness of Breath, SOB with Excertion, Other (Chest tighness ) Gastrointestinal: Unremarkable Genitourinary: Unremarkable Musculoskeletal: Unremarkable Integumentary: Unremarkable Neurological: Other (Dizziness, headache ) Lymphatics: Unremarkable Physical Examination - Physical Exam General: Alert, Oriented x3, Mild distress HEENT: Atraumatic, PERRLA, Mucous membr. moist/pink, EOMI, Sclerae nonicteric Neck: Supple, 2+ carotid pulse no bruit, No LAD, Without JVD or thyroid abnormality Respiratory: Diminished Cardiovascular: No edema, Regular rate/rhythm, Normal S1 S2 Capillary refill: <2 Seconds Gastrointestinal: Normal bowel sounds, Soft and benign, No tenderness Musculoskeletal: No clubbing, No contractures, No erythema, No tenderness Integumentary: No rashes, No breakdown, No significant lesion Neurological: Normal speech, Normal tone, Normal affect Lymphatics: No axilla or inguinal lymphadenopathy - Studies Laboratory Data (last 24 hrs) 01/05/22 11:51: PT 12.8 H, INR 1.16 01/05/22 11:51: WBC 7.80, Hgb 11.1 L, Hct 34.1 L, Plt Count 228 01/05/22 11:51: Sodium 139, Potassium 3.9, BUN 14, Creatinine 1.18, Glucose 238 H, Magnesium 1.9, Total Bilirubin 0.4, AST 10 L, ALT 17, Alkaline Phosphatase 102 Assessment and Plan - Plan --Acute on chronic COPD exacerbation. Patient placed on steroids, neb treatment with Atrovent\albuterol and O2 therapy. Continue supportive care. --History of colon cancer. Patient recently had a colonoscopy\EGD last week. Continue supportive care. --DM2. BS monitoring with sliding scale insulin, Premeal insulin and insulin glargine. --Hypertension. Poorly controlled. Continue home medications and hydralazine as needed. 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 Continue home medications. -- Headache. Tylenol as needed. --Chronic diastolic CHF. Stable. Daily weight and strict I/O. Continue home m edications. --Diabetic neuropathy. Continue gabapentin. -- GERD. Continue Protonix. --Hyperlipidemia. Continue statin. --Hypomagnesemia. Patient given a one-time dose of mag oxide. Will reassess in am. -- Depression. Continue home medication. --Morbid obesity. Likely secondary to sedentary lifestyle and excess calories intake. Patient counseled on weight reduction, diet and excise therapy. --DVT prophylaxis with heparin subQ. Discharge Plan: Home Plan to discharge in: 48 Hours - Advance Directives Does patient have a Living Will: No Does patient have a Durable POA for Healthcare: No - Code Status/Comfort Care Code Status Assessed: Yes Code Status: Full Code Physician Review: Patient Assessed, Agree with Above Assessment and Plan Critical Care: No
[2022-01-05] MEDS ORDERED: METHYLPREDNISOLONE 125 MG INJ ONE (15:25)
[2022-01-05 17:48] LABS: Protime INR 1.19
[2022-01-05 17:58] LABS: Magnesium 1.7 mg/dL (1.8-2.4); Phosphorus 2.8 mg/dL (2.5-4.9)
[2022-01-05] MEDS: INSULIN -REGULAR HUMAN 50 UNIT/0.5 ML ML SQ SCH ×2 (18:34→22:06)
[2022-01-05] MEDS: METHYLPREDNISOLONE 40 MG INJ IV SCH (18:35)
[2022-01-05] MEDS ORDERED: D50W 25 GM/50 ML SYRINGE IV PRN (18:58)
[2022-01-05] MEDS ORDERED: GLUCAGON 1 MG/VIAL IM PRN (18:58)
[2022-01-05] MEDS ORDERED: MAGNESIUM OXIDE 400 MG TAB PO ONE (19:00)
[2022-01-05] MEDS ORDERED: HYDRALAZINE HCL 20 MG/ML VIAL IV PRN (19:01)
[2022-01-05] MEDS ORDERED: D10W 125 ML IV PRN (19:08)
[2022-01-05] MEDS ORDERED: INSULIN -REGULAR HUMAN 50 UNIT/0.5 ML ML SQ SCH (20:00)
[2022-01-05] MEDS: ARFORMOTEROL TARTRATE 15 MCG/2 ML VIAL.NEB NEB SCH ×2 (20:00→20:26)
[2022-01-05] MEDS: ALBUTEROL 2.5 MG/3 ML NEB SOL NEB SCH (20:26)
[2022-01-05] MEDS: IPRATROPIUM BROM 0.5MG/2.5ML NEB SCH (20:26)
[2022-01-05 20:30] LABS: Specific Gravity 1.024 (1.005-1.030); Urine Bilirubin NEGATIVE (Negative); Urine Blood 1+ (Negative); Urine Clarity Clear (Clear); Urine Color Light-Yellow (Yellow); Urine Glucose 4+ (Over) (Negative); Urine Mucus Slight /HPF (None Seen); Urine Protein 2+ (Negative); Urine RBC <5 /HPF (None Seen); Urine Urobilinogen Normal (Normal); Urine pH 6.5 (5.0-7.0)
[2022-01-05] MEDS ORDERED: ALBUTEROL 2.5 MG/3 ML NEB SOL ONE (20:41)
[2022-01-05] MEDS ORDERED: HOME MED 1 EA UNK (Insulin Detemir [Levemir] 100 UNIT/ML Vial) SQ SCH (21:00)
[2022-01-05] MEDS ORDERED: GABAPENTIN 400 MG CAP PO SCH (21:00)
[2022-01-05] MEDS: HOME MED 1 EA UNK [BIMATOPROST OPHTH DROPS/2.5 ML BTL] OPTH SCH (21:00)
[2022-01-05] MEDS ORDERED: HOME MED 1 EA UNK (Gabapentin [Gabapentin] 600 MG Tablet) PO SCH (21:00)
[2022-01-05] MEDS ORDERED: HOME MED 1 EA UNK (Rosuvastatin Calcium [Crestor] 40 MG Tablet) PO SCH (21:00)
[2022-01-05] MEDS: HOME MED 1 EA UNK (Fluticasone/Salmeterol [Advair 250-50 Diskus] Blst.W.Dev) IH SCH (21:00)
[2022-01-05] MEDS: SPIRONOLACTONE 25 MG TABLET PO SCH (22:04)
[2022-01-05] MEDS: AMLODIPINE 5 MG TAB PO SCH (22:04)
[2022-01-05] MEDS: TRAZODONE 50 MG TABLET PO SCH (22:05)
[2022-01-05] MEDS: ROSUVASTATIN 10 MG TAB PO SCH (22:05)
[2022-01-05] MEDS: INSULIN GLARGINE 100 UNIT/ML SQ SCH (22:06)
[2022-01-05] MEDS: ACETAMINOPHEN 325 MG TABLET PO PRN (22:07)
[2022-01-05] MEDS: HEPARIN 5000 UNIT/ML 1 ML VIAL SQ SCH (22:08)
[2022-01-06] MEDS: METHYLPREDNISOLONE 40 MG INJ IV SCH ×2 (00:30→09:28)
[2022-01-06] MEDS: ALBUTEROL 2.5 MG/3 ML NEB SOL NEB SCH ×4 (01:46→20:45)
[2022-01-06] MEDS: IPRATROPIUM BROM 0.5MG/2.5ML NEB SCH ×4 (01:46→20:45)
[2022-01-06 03:49] LABS: Absolute Lymphocytes (CBC) 0.8 K/uL (0.7-4.9); Hematocrit 34.1 % (36.0-45.0); Lymphocytes % 7.8 % (15.3-44.8); MCV 86.4 fL (80-100); MPV 8.4 fL (7.6-11.3); RBC Red Blood Cell Count 3.95 M/uL (3.86-4.86)
[2022-01-06 03:55] LABS: Magnesium 1.9 mg/dL (1.8-2.4); Potassium 4.3 mmol/L (3.5-5.1)
[2022-01-06] MEDS: INSULIN -REGULAR HUMAN 50 UNIT/0.5 ML ML SQ SCH ×4 (07:30→21:37)
[2022-01-06] MEDS ORDERED: INFLUENZA VACCINE (for 6+ mo) 0.5 ML DOSE IMVAC ONE (08:00)
[2022-01-06] MEDS: ARFORMOTEROL TARTRATE 15 MCG/2 ML VIAL.NEB NEB SCH ×2 (08:30→20:45)
[2022-01-06] MEDS ORDERED: FERROUS FUMARATE 324 MG PO SCH (09:00)
[2022-01-06] MEDS ORDERED: carvediloL 25 MG TAB PO SCH (09:00)
[2022-01-06] MEDS: HOME MED 1 EA UNK [BIMATOPROST OPHTH DROPS/2.5 ML BTL] OPTH SCH ×2 (09:00→21:00)
[2022-01-06] MEDS ORDERED: HOME MED 1 EA UNK (Magnesium Oxide [Magnesium Oxide] 400 MG Tablet) PO SCH (09:00)
[2022-01-06] MEDS: HOME MED 1 EA UNK (Fluticasone/Salmeterol [Advair 250-50 Diskus] Blst.W.Dev) IH SCH ×2 (09:00→21:00)
[2022-01-06] MEDS: INSULIN LISPRO 100 UNIT/1 ML SQ SCH ×3 (09:27→21:38)
[2022-01-06] MEDS: HEPARIN 5000 UNIT/ML 1 ML VIAL SQ SCH ×2 (09:30→21:36)
[2022-01-06] MEDS: PREGABALIN 75 MG CAP PO SCH ×2 (09:32→21:36)
[2022-01-06] MEDS: PANTOPRAZOLE 40MG TABLET PO SCH (09:32)
[2022-01-06] MEDS: MAGNESIUM OXIDE 400 MG TAB PO SCH (09:33)
[2022-01-06] MEDS: FUROSEMIDE 40 MG TABLET PO SCH (09:34)
[2022-01-06] MEDS: FE SULF/FA/VIT B COMP & C TAB PO SCH (09:34)
[2022-01-06] MEDS: ASPIRIN 81 MG CHEWABLE TABLET PO SCH (09:34)
[2022-01-06] MEDS: SPIRONOLACTONE 25 MG TABLET PO SCH ×2 (10:20→21:35)
[2022-01-06] MEDS: SERTRALINE HCL 50 MG TAB PO SCH (10:20)
[2022-01-06] MEDS: carvediloL 25 MG TAB PO SCH ×2 (10:21→21:36)
[2022-01-06] MEDS: ACETAMINOPHEN 325 MG TABLET PO PRN (10:21)
[2022-01-06] MEDS: INSULIN GLARGINE 100 UNIT/ML SQ ONE ×2 (15:24→16:00)
[2022-01-06] MEDS: GUAIFENESIN/DM 5 ML UCUP PO PRN (16:02)
--- NOTE | 2022-01-06 16:35 | EKG ---
Test Date: 2022-01-05 Test Time: 11:20:59 [employer] Helper: CELE MEASUREMENT RESULTS: Intervals: Rate: 77 GA: 256 QRSD: 80 QT: 392 QTc: 443 [place]: P: 41 GA: 256 QRS: -3 T: 121 INTERPRETIVE STATEMENTS: Sinus rhythm with 1st degree AV block Anterior infarct, age undetermined ST & T wave abnormality, consider lateral ischemia Abnormal ECG Compared to ECG 09/22/2021 13:14:27 Myocardial infarct finding now present Possible ischemia now present ST (T wave) deviation still present Electronically Signed On 01-06-22 16:34:35 CDT by Ean Beavers
--- NOTE | 2022-01-06 17:58 | P.PN ---
Subjective Date of Service: 01/06/22 Chief Complaint: Shortness of breath She feels much better today. She currently denies shortness of breath. She reports intermittent cough. Physical Examination - Vital Signs Temperature: 97.5 F Blood Pressure: 144/74 Pulse: 81 Respirations: 14 Pulse Ox (%): 93 Assessment And Plan - Current Problems (Diagnosis) (1) Acute exacerbation of COPD with asthma Current Visit: No Status: Acute (2) Diabetes mellitus Onset Date: 06/13/17 Current Visit: No Status: Chronic Qualifiers: Diabetes mellitus type: type 2 Diabetes mellitus residential insulin use: with middle or intermediate school principal use Diabetes mellitus complication status: with unspecified complications (3) Morbid obesity due to excess calories Current Visit: Yes Status: Acute (4) HTN (hypertension) Onset Date: 02/18/17 Current Visit: No Status: Chronic - Plan Physical Exam General: Alert, NAD Neck: Supple, no elevated JVD. Respiratory: Diminished Cardiovascular: No edema, Regular rate/rhythm, Normal S1 S2 Gastrointestinal: Normal bowel sounds, Soft and benign, No tenderness Musculoskeletal: No clubbing, No contractures, No erythema, No tenderness Integumentary: No rashes. Neurological: No focal motor deficit Plan: Continue scheduled bronchodilators. Transition IV steroids to p.o. prednisone. Patient with steroid-induced hyperglycemia. Blood sugar management with Lantus insulin and insulin sliding scale. Cough suppressant as needed. Continue other home medications. Physician Review: Patient Assessed, Agree with Above Assessment and Plan
[2022-01-06] MEDS: ROSUVASTATIN 10 MG TAB PO SCH (21:35)
[2022-01-06] MEDS: predniSONE 20 MG TAB PO SCH (21:36)
[2022-01-06] MEDS: AMLODIPINE 5 MG TAB PO SCH (21:36)
[2022-01-06] MEDS: INSULIN GLARGINE 100 UNIT/ML SQ SCH (21:37)
[2022-01-06] MEDS: TRAZODONE 50 MG TABLET PO SCH (21:40)
[2022-01-07] MEDS ORDERED: INSULIN -REGULAR HUMAN 50 UNIT/0.5 ML ML IV ONE (01:25)
[2022-01-07] MEDS: IPRATROPIUM BROM 0.5MG/2.5ML NEB SCH ×2 (02:00→08:45)
[2022-01-07] MEDS: ALBUTEROL 2.5 MG/3 ML NEB SOL NEB SCH ×2 (02:00→08:45)
[2022-01-07] MEDS: GUAIFENESIN/DM 5 ML UCUP PO PRN (06:14)
[2022-01-07 06:23] VITALS: BMI 41.8
[2022-01-07] MEDS: INSULIN -REGULAR HUMAN 50 UNIT/0.5 ML ML SQ SCH (07:30)
[2022-01-07 08:29] VITALS: BP 150/74; TEMP 98.1
[2022-01-07] MEDS: ARFORMOTEROL TARTRATE 15 MCG/2 ML VIAL.NEB NEB SCH (08:45)
[2022-01-07] MEDS: MAGNESIUM OXIDE 400 MG TAB PO SCH (09:00)
[2022-01-07] MEDS ORDERED: INSULIN LISPRO 100 UNIT/1 ML SQ SCH (09:00)
[2022-01-07] MEDS: HOME MED 1 EA UNK (Fluticasone/Salmeterol [Advair 250-50 Diskus] Blst.W.Dev) IH SCH (09:00)
[2022-01-07] MEDS: HOME MED 1 EA UNK [BIMATOPROST OPHTH DROPS/2.5 ML BTL] OPTH SCH (09:00)
[2022-01-07] MEDS: ASPIRIN 81 MG CHEWABLE TABLET PO SCH (09:43)
[2022-01-07] MEDS: PANTOPRAZOLE 40MG TABLET PO SCH (09:44)
[2022-01-07] MEDS: FUROSEMIDE 40 MG TABLET PO SCH (09:44)
[2022-01-07] MEDS: PREGABALIN 75 MG CAP PO SCH (09:44)
[2022-01-07] MEDS: predniSONE 20 MG TAB PO SCH (09:44)
[2022-01-07] MEDS: SERTRALINE HCL 50 MG TAB PO SCH (09:44)
[2022-01-07] MEDS: carvediloL 25 MG TAB PO SCH (09:45)
[2022-01-07] MEDS: FE SULF/FA/VIT B COMP & C TAB PO SCH (09:45)
[2022-01-07] MEDS: SPIRONOLACTONE 25 MG TABLET PO SCH (09:45)
[2022-01-07] MEDS: HEPARIN 5000 UNIT/ML 1 ML VIAL SQ SCH (09:51)
[2022-01-07 09:56] VITALS: O2SAT 95
--- NOTE | 2022-01-07 10:31 | P.DS ---
Admission Date: 01/05/22 Discharge Date: 01/07/22 Discharge Condition: FAIR Reason for Admission: Shortness of breath - Problems (1) Acute exacerbation of COPD with asthma Current Visit: No Status: Acute (2) Diabetes mellitus Onset Date: 06/13/17 Current Visit: No Status: Chronic Qualifiers: Diabetes mellitus type: type 2 Diabetes mellitus ad terminal makeup operator insulin use: with ad terminal makeup operator use Diabetes mellitus complication status: with unspecified complications (3) Morbid obesity due to excess calories Current Visit: Yes Status: Acute (4) HTN (hypertension) Onset Date: 02/18/17 Current Visit: No Status: Chronic Brief History of Present Illness: Patient is an 81-year-old female with a past medical history significant for CHF, colon cancer, DM2, hypertension, ADD/ADHD, blindness who presents with complaint of shortness of breath that has been ongoing for a while. Patient is a poor historian and was unable to provide accurate history. 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 Beto chowdary reported that her home inhaler was ineffective. Patient reported associated signs and symptoms of chest tightness, cough, headache, dizziness and generalized malaise. Chest x-ray done in the ED did not show any infiltrate. Chest abdomen and pelvis did not show any acute disease. Patient diagnosis COPD exacerbation with asthma and hospitalized for further management. Hospital Course: Patient treated with scheduled bronchodilators and IV steroid. She was not hypoxic. Her respiratory condition improved with treatment. IV steroid transition to oral prednisone. Her blood sugar readings were elevated this was managed with her home insulin regimen in addition to insulin sliding scale. Overall patient has clinically improved and deemed stable for discharge. She is prescribed nebulizers, albuterol and ipratropium for use at home. Vital Signs/Physical Exam: Temp Pulse Resp BP Pulse Ox 98.1 F 74 14 150/74 H 94 01/07/22 08:00 01/07/22 09:45 01/07/22 08:00 01/07/22 09:45 01/07/22 08:00 General: Alert, In no apparent distress, Oriented x3 HEENT: Mucous membr. moist/pink Neck: JVD not distended Respiratory: Clear to auscultation bilaterally, Normal air movement Cardiovascular: No edema, Regular rate/rhythm, Normal S1 S2 Gastrointestinal: Soft and benign, Non-distended, No tenderness Musculoskeletal: No swelling Integumentary: No rashes, No cyanosis Neurological: Normal strength at 5/5 x4 extr Laboratory Data at Discharge: WBC 10.10 K/uL (4.3-10.9) 01/06/22 03:16 Hgb 11.1 g/dL (12.0-15.0) L 01/06/22 03:16 Hct 34.1 % (36.0-45.0) L 01/06/22 03:16 Plt Count 234 K/uL (152-406) 01/06/22 03:16 PT 13.1 SECONDS (9.5-12.5) H 01/05/22 17:30 INR 1.19 01/05/22 17:30 Sodium 136 mmol/L (136-145) 01/06/22 03:16 Potassium 4.3 mmol/L (3.5-5.1) 01/06/22 03:16 BUN 17 mg/dL (7-18) 01/06/22 03:16 Creatinine 1.31 mg/dL (0.55-1.3) H 01/06/22 03:16 Glucose 392 mg/dL (74-106) H 01/06/22 03:16 Phosphorus 2.8 mg/dL (2.5-4.9) 01/05/22 17:30 Magnesium 1.9 mg/dL (1.8-2.4) 01/06/22 03:16 Total Bilirubin 0.4 mg/dL (0.2-1.0) 01/05/22 11:51 AST 10 U/L (15-37) L 01/05/22 11:51 ALT 17 U/L (12-78) 01/05/22 11:51 Alkaline Phosphatase 102 U/L (45-117) 01/05/22 11:51 Home Medications: Aspirin 81 mg PO DAILY 05/19/19 Furosemide 40 mg PO DAILY PRN 05/19/19 Insulin Detemir [Levemir] 80 units SQ BID 05/19/19 Metformin HCl [Glucophage Xr] 500 mg PO BID 05/19/19 Nitroglycerin [Nitrostat*] 0.4 mg SL PRN PRN MDD 3 tab 05/19/19 Pantoprazole [Protonix Tab*] 40 mg PO DAILY 05/19/19 Sertraline HCl 100 mg PO DAILY 05/19/19 Tramadol HCl [Ultram] 50 mg PO BID PRN 05/19/19 Trazodone [Desyrel*] 50 mg PO BEDTIME 05/19/19 Fluticasone/Salmeterol [Advair 250-50 Diskus] 1 each IH Q12HR #60 blst.w.dev 05/22/19 Amlodipine [Norvasc*] 5 mg PO BEDTIME 08/21/19 Bimatoprost [Lumigan Opthalmic Drops*] 1 drop EACH EYE BID 08/21/19 Ferrous Fumarate [Hemocyte] 324 mg PO DAILY #30 tablet 08/23/19 Rosuvastatin Calcium [Crestor] 40 mg PO BEDTIME 09/22/21 Spironolactone [Aldactone] 25 mg PO BID 09/22/21 Carvedilol [Coreg] 25 mg PO BID 01/05/22 Insulin Lispro [Humalog] 10 units SQ TID 01/05/22 Pregabalin [Lyrica*] 75 mg PO BID 01/05/22 Albuterol Neb [Proventil 0.083% Neb Soln] 2.5 mg NEB [id number] #120 amp 01/07/22 Guaif/Dm [Robitussin Dm*] 10 ml PO Q6H PRN #118 ml 01/07/22 Ipratropium Neb [Atrovent*] 0.5 mg NEB [id number] #120 amp 01/07/22 Magnesium Oxide [Mag 0X*] 400 mg PO DAILY #10 tab 01/07/22 Nebulizer 1 each QID #1 kit 01/07/22 predniSONE [Prednisone*] 20 mg PO BID #6 tab 01/07/22 New Medications: Ipratropium Neb [Atrovent*] 0.5 mg NEB [id number] #120 amp Albuterol Neb [Proventil 0.083% Neb Soln] 2.5 mg NEB [id number] #120 amp Magnesium Oxide [Mag 0X*] 400 mg PO DAILY #10 tab Nebulizer 1 each QID #1 kit predniSONE [Prednisone*] 20 mg PO BID #6 tab Guaif/Dm [Robitussin Dm*] 10 ml PO Q6H PRN #118 ml PRN Reason: Cough Followup: NONE,NONE [Primary Care Provider] -
== END 2022-01-07 12:42 | disposition home or self-care (01) ==
LOC: ER 10:52 → ERHOLD 14:47 → 4TH 16:55
PROVIDERS: ADMIT Internal Medicine; ATTEND Internal Medicine
DX: J44.1 Chronic obstructive pulmonary disease with (acute) exacerbation (principal); J45.909 Unspecified asthma, uncomplicated; E11.9 Type 2 diabetes mellitus without complications; I10 Essential (primary) hypertension; F90.9 Attention-deficit hyperactivity disorder, unspecified type; Z85.038 Personal history of other malignant neoplasm of large intestine; Z88.2 Allergy status to sulfonamides; H54.7 Unspecified visual loss; I50.32 Chronic diastolic (congestive) heart failure; K21.9 Gastro-esophageal reflux disease without esophagitis; E78.5 Hyperlipidemia, unspecified; E83.42 Hypomagnesemia; F32.A Depression, unspecified; E66.01 Morbid (severe) obesity due to excess calories; Z71.3 Dietary counseling and surveillance; Z79.4 Long term (current) use of insulin; Z20.822 Contact with and (suspected) exposure to COVID-19
CPT/HCPCS: 93005; 87040; 85025 ×2; 81001; 80048 ×2; 36415 ×2; 83735 ×3; 84100; 85610 ×2; 82947 ×10; 80076; 81003; 84484; 83880; 71260; 74177; 71045; 94640; 96374; 99285; 87811; Q9967; J1815 ×11; J1644 ×4; J7512 ×2; J7605 ×3; J2930; J2405; J2920 ×3; G0378 ×4

== ENCOUNTER 2022-02-06 18:18 | Inpatient (IN) | payer OTHER ==
--- OUTSIDE RECORDS SUMMARY | 2022-02-06 18:31 | XMS REPORT | Continuity of Care Document ---
:1940 Author Organization [facility] t Address [address] [place] [address] Care Team Providers Name Role Phone ADDIE SLAUGHTER Primary Care Physician Unavailable RAMIRO WU I. Attending Clinician Unavailable Ramiro Wu MD, I. Attending Clinician [phone] Addie Slaughter Attending Clinician Unavailable ASTRID WOODY Attending Clinician Unavailable Harvey Jackman MD Attending Clinician Joann Gorman MD Attending Clinician JOANN GORMAN Attending Clinician Unavailable HARVEY JACKMAN Attending Clinician Unavailable Harjit_S_SIM Attending Clinician Unavailable OrtegaA_SIM Attending Clinician Unavailable RAMIRO WU I. Admitting Clinician Unavailable ASTRID WOODY Admitting Clinician Unavailable JOANN GORMAN Admitting Clinician Unavailable SergioS_SIM Admitting Clinician Unavailable Thongo_A_AH Admitting Clinician Unavailable Payers Payer Name Policy Type Policy Number Effective Date Expiration Date Carmen LYNNE [id number] 2021 MEDICARE 00:00:00 [facility] [id number] 2020 00:00:00 AARP MCR [id number] 2021 [facility] ADVANTAGE 00:00:00 - [facility] WellCare MCR C1 [id number] 2019 [facility] t 00:00:00 - [facility] WELLCARE OF [place] [id number] 2019 - [place] 00:00:00 (MEDICARE REPLACEMENT/ADV ANTAGE - HMO) Problems Condition Condition Condition Status Onset Resolution Last Treating Co mments Source Name Details Category Date Date Treatment Clinician Date Speech Speech Disease Active 2021-[address] [facility] abnormalit abnormalit 1-04 Susu kes y y 00:00: Medical 00 Center CAD CAD Disease Active [facility] (coronary (coronary 4-15 [facility] artery artery 00:00: Medical disease) disease) 00 Center [id number] Left eye Problem Com mon [id number] pain [facility] 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 Medic al angioplast Center y [id number] Need for Problem Comm on assistance Spirit due to - CHI unsteady [facility] [id number] Constipati Problem Com mon on, Spirit unspecifie - CHI d constipati [facility] [id number] Chronic Problem Common bronchitis Spirit , - [facility] unspecifie [facility] d chronic [facility] bronchitis Medica l type Center [id number] Gastroesop Problem Co mmon hageal Spirit reflux - [facility], [facility] Med[facility] l not Center specified [id number] Essential Problem Comm on hypertensi Spirit on [facility] [id number] Mixed Problem Common hyperlipid [facility] emia [facility] [id number] Lymphedema Problem C ommon [id number] of both Spirit lower - extremitie [facility] [id number] Iron Problem Common deficiency Spirit anemia, - [facility] unspecifie [facility] d iron [facility] deficiency [facility] type [id number] Glaucoma Problem Commo n of both Spirit eyes, - CH[facility] unspecifie [facility] d glaucoma [facility] [address] [id number] Diabetic Problem Comm on autonomic Spirit neuropathy - [facility] associated [facility] with type [facility] 2 diabetes Medica l mellitus Center [id number] Current Problem Common mild Spirit episode of - [facility] major [facility] depressive [facility] disorder, Medical unspecifie Center d whether recurrent [id number] 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 [id number] 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 [id number] Severe Problem Common major Spirit depression - CHI [facility] [id number] Depression Problem Co mmon with Spirit anxiety - CHI [facility] [id number] Anxiety Problem Common Spirit - CH[facility] [id number] Primary Problem Commo n osteoarthr Spirit itis of - CHI both knees [facility] [id number] Obstructiv Problem Com mon e sleep Spirit apnea - CHI syndrome [facility] [id number] Hypokalemi Problem Com mon a Spirit - CHI [facility] [id number] 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 of this Medical note Center might be different from the original. bilateral , loss of right eye HTN HTN Disease Active [facility] (hypertens (hypertens Susu kes ion) ion) Medical Center HLD HLD Disease Active [facility] (hyperlipi (hyperlipi Susu kes demia) demia) Medical Center Allergies, Adverse Reactions, Alerts Allergy Allergy Status Severity Reaction(s) Onset Inactive Treating Comm ents Source Name Type Date Date Clinician Sulfa Propensi Active 2021-[address] [facility] (Sulfona ty to 1-04 [facility] m[facility] adverse 00:00: Medical Antibiot reaction 00 Center ics) s SULFA Allergy Active 2021-03 [facility] (SULFONA 1-04 MIDE 00:00: ANTIBIOT 00 ICS) Sulfa DA Active [facility] (Sulfona 7-25 [place] mide 00:00: d Antibiot 00 Medical ics) Center NO KNOWN Allergy Active [facility] [facility] Family History Family Member Diagnosis Comments Start Date Stop Date Source Natural mother Cancer [facility] Social History Social Habit Start Date Stop Date Quantity Comments Source History of Tobacco [facility] - Use [facility] History SDOH [facility] Alcohol Std Drinks Medica l Center History SDOH [facility] Alcohol Binge Medical [facility] History SDHI [facility] Alcohol Comment Medical C enter History SDHI [facility] Transport Non-Med Medical Center History SDOH [facility] Housing Places Medical Ce nter Lived History [facility] 2022-01-23 2022-01-[address] [facility] Transport Med 00:00:00 00:00:[address] History [facility] 2022-01-23 2022-01-[address] [facility] Housing Unable to 00:00:00 00:00:00 Medical Center Pay History [facility] 2022-01-23 2022-01-[address] [facility] Housing Homeless 00:00:00 00:00:00 Medical Center Last Year Alcohol intake 2022-01-23 2022-01-[address] [facility] 00:00:00 00:00:00 non-drinker Medical Cente r (finding) Exposure to 2022-01-12 2022-01-[address] [facility] SARS-CoV-2 (event) 00:00:00 13:40:00 Medica l Center History [facility] 2020-07-04 2020-07-[address] [facility] Alcohol Frequency 00:00:00 00:00:00 Medical Center Tobacco use and 2020-07-03 2020-07-[address] Susu kes exposure 00:00:00 00:00:00 Medical Center Sex Assigned At [address] Susu kes 00:00:00 00:00:00 Medical Center Smoking Status Start Date Stop Date Source Never smoker [facility] Medications Ordered Filled Start Stop Current Ordering Indication Dosage Frequency Signature Comments Components Source Medication Medication Date Date Medication? Clinician (SIG) Name Name Benzonatate Benzonatate 2021-03- TID Benzonatat 200 MG 200 MG 04-07 e 200 MG 00:00: 00:00 00 :00 FreeStyle FreeStyle 2021-03 No FreeStyle Jonna 2 Jonna 2 1-14 Jonna 2 [place] 00:[place]: [place] - 00 FreeStyle FreeStyle 2021-03 No FreeStyle Jonna Jonna 1-14 Jonna [place] 00:[place]: [place] - 00 aspirin 81 2021-03 Yes 81mg QD Take [address] MG EC 1-07 by mouth [facility] tablet 18:06: daily. Medical Center fluticasone 2021-03 Yes 2{puff} QD Inhale [address] propion-jaylene 1-07 puffs by Luke s meteroL 18:06: mouth via Medic al (ADVAIR) 48 inhaler Center 250-50 daily . mcg/dose diskus inhaler amLODIPine 2021-03 Yes 5mg QD Take [address] (NORVASC) 5 1-07 by mouth Luke s MG tablet 18:06: daily. Medica l [address] [place] [address] dorzolamide 2021-03 Yes 1[drp] Q.[id number] [address] (TRUSOPT) 2 -07 [id number] (three) [facility]ukes % 18:06: 3D times Medical ophthalmic [address] solution insulin 2021-03 Yes 70U Q.5D Inject 70 [facility] t detemir 1-07 Units [facility]ukes U-100 18:06: subcutaneo Medica l (LEVEMIR) 48 usly 2 Center 100 unit/mL (two) (3 mL) InPn times injection daily . rosuvastati 2021-03 Yes 40mg QD Take [address] n (CRESTOR) 1-07 by mouth Luke s 40 MG 18:06: nightly . Medical tablet [address] bimatoprost 2021-03 Yes 1[drp] QD Place [address] (LUMIGAN) 1-07 drop into [facility]ukes 0.01 % Drop 18:06: both eyes M edical ophthalmic 48 nightly. Cente r solution magnesium 2021-03 Yes 400mg QD Take [address] oxide 1-07 mg by Lukes (MAG-OX) 18:06: mouth Medical 400 mg 48 daily. Center (241.3 mg magnesium) tablet metFORMIN 2021-03 Yes 500mg Take [address] (GLUCOPHAGE 1-07 mg by Lukes ) 500 MG 18:06: mouth 2 Medica l tablet 48 (two) Center times daily with breakfast and dinner. nitroglycer 2021-[address] 0[address] in 1-07 mg under [facility]ukes (NITROSTAT) 18:06: the tongue Medical 0.4 MG SL 48 every 5 Center tablet (five) minutes as needed for Chest pain Put 1 pill under tongue every 5min as needed for chest pain.No more than 3 doses in 15min.Call 911 if pain unrelieved 5min after 1st dose . pantoprazol 2021-03 Yes 40mg QD Take [address] e 1-07 by mouth [facility]ukes (PROTONIX) 18:06: daily. Medic al 40 MG 48 Center tablet insulin 2021-03 Yes 12U Inject 12 [facility] t lispro 1-07 Units Lukes (HumaLOG) 18:06: subcutaneo Me dical 100 unit/mL 48 usly 3 Center injection (three) times daily before meals . furosemide 2021-03 Yes 40mg Take [address] (LASIX) 40 1-07 by mouth [facility]ukes MG tablet 18:06: as needed Med ical 48 (swelling) Center . carvediloL 2021-03 Yes 25mg Q.5D Take [address] (COREG) 25 1-07 by mouth 2 Leah es MG tablet 18:06: (two) Medical 48 times Center daily. traZODone 2021-03 Yes 50mg QD Take [address] (DESYREL) 1-07 by mouth [facility]ukes 50 MG 18:06: nightly. Medical tablet 48 Center sertraline 2021-03 Yes 100mg QD Take [address] (ZOLOFT) 1-07 mg by [facility]ukes 100 MG 18:06: mouth Medical tablet 48 daily. Center cyanocobala 2021-03 Yes 5000ug QD Take 5,[address] min 1-07 mcg by Lukes (vitamin 18:06: mouth Medical B-12) 1000 48 daily. Center MCG tablet gabapentin 2021-03 800mg Q.[id number] Take [address] (NEURONTIN) 03-27 [id number] mg by [facility]ukes 800 MG 16:45: 00:00 3D mouth 3 Medical tablet 56 :00 (three) Center times daily. metoprolol 2021-03 No 100mg Q.5D Take [address] tartrate 03-2707 mg by Lukes (LOPRESSOR) 16:45: 00:00 mouth 2 Me dical 100 MG 56 :00 (two) Center tablet times daily. insulin 2021-[address] aspart 03-27 subcutaneo Lukes U-100 16:45: 00:00 usly 3 Medical (NovoLOG) 56 :00 (three) Center 100 unit/mL times (3 mL) InPn daily before meals. clopidogreL 2021-03 No 75mg QD Take [address] (PLAVIX) 75 03-27 by mouth Leah es mg tablet 16:45: 00:00 daily. Medic al 56 :00 Center pregabalin 2021-03 No 150mg Q.5D Take [address] (LYRICA) 03-27 mg by Lukes 150 MG 16:45: 00:00 mouth 2 Medical capsule 56 :00 (two) Center times daily. clopidogreL 2021-03 No 75mg QD Take [address] (PLAVIX) 75 03-27 by mouth Leah es mg tablet 16:45: 00:00 daily Ran Me dical 56 :00 out . Center spironolact 2021-03 No 25mg Q.5D Take [address] one 03-27 by mouth 2 Lukes (ALDACTONE) 16:45: 00:00 (two) Medi ashley 25 MG 56 :00 times Center tablet daily. traMADoL 2021-03 No 50mg Take [address] (ULTRAM) 50 03-27 by mouth Leah es mg tablet 16:45: 00:00 every 6 Medi ashley 56 :00 (six) Center hours as needed for Pain. traMADoL 2021-03 Yes 50mg Take [address] (ULTRAM) 50 03-27 tablet (50 Susu kes mg tablet 00:00: mg total) Med ical 00 by mouth Center every 12 (twelve) hours as needed for Pain You already have this at home. Max Daily Amount: 100 mg pregabalin 2021-03 Yes 150mg QD Take [address] (LYRICA) 03-27 capsule Lukes 150 MG 00:00: (150 mg Medical capsule 00 total) by Center mouth daily Reduce to once daily due to her kidney function. Max Daily Amount: 150 mg clopidogreL 2021-03 Yes 75mg QD Take [address] (PLAVIX) 75 03-27 tablet (75 Susu kes mg tablet 00:00: mg total) Med ical 00 by mouth Center daily. cefdinir 2021-03 No 300mg Q.5D Take 1 [facility] t (OMNICEF) 03-27 capsule Lukes 300 MG 00:00: 23:59 (300 mg Medical capsule 00 :00 total) by Center mouth 2 (two) times daily for 3 days. metroNIDAZO 2021-03 No 500mg Q.[id number] Take [address] LE (FLAGYL) 03-27 [id number] tablet Lukes 500 MG 00:00: 23:59 3D (500 mg Medical tablet 00 :00 total) by Center mouth 3 (three) times daily for 3 days. Pregabalin Pregabalin 2021-03 No 1{capsu BID Pregabalin 150 MG 150 MG 0-27 le} 150 MG 00:00: 00 Zofran 4 MG Zofran 4 MG 2021-03 No 1{table Zofran 4 0-27 t} MG 00:00: 00 Pregabalin Pregabalin 2021-03 No 1{capsu BID Pregabalin 150 MG 150 MG 0-27 le} 150 MG 00:00: 00 Zofran 4 MG Zofran 4 MG 2021-03 No 1{table Zofran 4 0-27 t} MG 00:00: 00 Zofran 4 MG Zofran 4 MG 2021-03 No 1{table Zofran 4 0-27 t} MG 00:00: 00 Novofine Novofine No Novofine Pen Needle Pen Needle 9-22 Pen Needle 32G X 6 MM 32G X 6 MM 00:00: 32G X 6 MM 00 Pregabalin Pregabalin 2022-0 No 1{capsu BID Pregabalin 75 MG 75 MG 12-10 le} 75 MG 00:00: 00 Novofine Novofine 2022-0 No Novofine Pen Needle Pen Needle 9-22 Pen Needle 32G X 6 MM 32G X 6 MM 00:00: 32G X 6 MM 00 Pregabalin Pregabalin 2022-0 No 1{capsu BID Pregabalin 75 MG 75 MG 12-10 le} 75 MG 00:00: 00 Novofine Novofine 2022-0 No Novofine Pen Needle Pen Needle 9-22 Pen Needle 32G X 6 MM 32G X 6 MM 00:00: 32G X 6 MM 00 Pregabalin Pregabalin 2022-0 No 1{capsu BID Pregabalin 75 MG 75 MG 12-10 le} 75 MG 00:00: 00 Novofine Novofine 2022-0 No Novofine Pen Needle Pen Needle 9-22 Pen Needle 32G X 6 MM 32G X 6 MM 00:00: 32G X 6 MM 00 Pregabalin Pregabalin 2022-0 No 1{capsu BID Pregabalin 75 MG 75 MG 12-10 le} 75 MG 00:00: 00 Novofine Novofine 2-0 No Novofine Pen Needle Pen Needle 9-22 Pen Needle 32G X 6 MM 32G X 6 MM 00:00: 32G X 6 MM 00 Pregabalin Pregabalin 2022-0 No 1{capsu BID Pregabalin 75 MG 75 [...] UNIT/ML 00:00: 200 00 UNIT/ML HumaLOG HumaLOG 2-0 No HumaLOG KwikPen 200 KwikPen 200 2-04 KwikPen UNIT/ML UNIT/ML 00:00: 200 00 UNIT/ML HumaLOG HumaLOG 2022-0 No HumaLOG KwikPen 200 KwikPen 200 2-04 KwikPen UNIT/ML UNIT/ML 00:00: 200 00 UNIT/ML NovoFine NovoFine 2020-1 No 6xD NovoFine Plus Pen Plus Pen [...] 100-10 00:00: 100-10 MG/5ML MG/5ML 00 MG/5ML lisinopriL 2021- No 5mg QD Take [address] (PRINIVIL,Z -11 07-23 tablet (5 Susu kes ESTRIL) 5 00:00: 23:59 mg total) Me dical MG tablet 00 :00 by mouth Center daily. lisinopriL 2021- No 5mg QD Take [address] (PRINIVIL,Z -11 07-23 tablet (5 Susu kes ESTRIL) 5 00:00: 23:59 mg total) Me dical MG tablet 00 :00 by mouth Center daily. nitroglycer Yes .4mg Place 0.[address] in 4-22 mg under Lukes (NITROSTAT) 12:18: the tongue Medical 0.4 MG SL 39 every 5 Center tablet (five) minutes as needed for Chest pain Put 1 pill under tongue every 5min as needed for chest pain.No more than 3 doses in 15min.Call 911 if pain unrelieved 5min after 1st dose . insulin Yes Inject [facility] aspart 4-22 subcutaneo Lukes U-100 12:18: usly 3 Medical (NovoLOG) 39 (three) Center 100 unit/mL times (3 mL) InPn daily before meals. pantoprazol Yes 40mg QD Take [address] e 4-22 by mouth Lukes (PROTONIX) 12:18: daily. Medic al 40 MG 39 Center tablet clopidogreL Yes 75mg QD Take [address] (PLAVIX) 75 4-22 by mouth Luke s mg tablet 12:18: daily. Medica l 39 Center aspirin 81 Yes 81mg QD Take [address] MG EC 4-22 by mouth Lukes tablet 12:18: daily. Medical 39 Center fluticasone Yes 1{puff} Inhale [address] propion-jaylene 4-22 puff by Lukes meteroL 12:18: mouth via Medic al (ADVAIR) 39 inhaler Center 250-50 every 12 mcg/dose (twelve) diskus hours. inhaler amLODIPine Yes 5mg QD Take [address] (NORVASC) 5 4-22 by mouth Luke s MG tablet 12:18: daily. Medica l 39 Center dorzolamide Yes 1[drp] Q.23700799 [address] (TRUSOPT) 2 4-22 [id number] (three) Lukes % 12:18: 3D times Medical ophthalmic 39 daily. Center solution gabapentin Yes 800mg Q.[id number] Take [address] (NEURONTIN) 4-22 [id number] mg by L ukes 800 MG 12:18: 3D mouth 3 Medical tablet 39 (three) Center times daily. insulin Yes 60U QD Inject 60 [facility] t detemir 4-22 Units [facility]ukes U-100 12:18: subcutaneo Medica l (LEVEMIR) 39 usly Center 100 unit/mL nightly. (3 mL) InPn injection rosuvastati Yes 40mg QD Take [address] n (CRESTOR) 4-22 by mouth Luke s 40 MG 12:18: daily . Medical tablet 39 Center metoprolol Yes 100mg Q.5D Take [address] tartrate 4-22 mg by Lukes (LOPRESSOR) 12:18: mouth 2 Med ical 100 MG 39 (two) Center tablet times daily. bimatoprost Yes 1[drp] QD Place [address] (LUMIGAN) 4-22 drop into [facility]ukes 0.01 % Drop 12:18: both eyes M edical ophthalmic 39 nightly. Cente r solution magnesium Yes 400mg QD Take [address] oxide 4-22 mg by Lukes (MAG-OX) 12:18: mouth Medical 400 mg 39 daily. Center (241.3 mg magnesium) tablet metFORMIN Yes 500mg Take [address] (GLUCOPHAGE 4-22 mg by Lukes ) 500 MG 12:18: mouth 2 Medica l tablet 39 (two) Center times daily with breakfast and dinner. Lidocaine 5 Lidocaine 5 2019-0 No BID Lidocaine % % 7-09 5 % 00:00: 00 Lidocaine 5 Lidocaine 5 2019-0 No BID Lidocaine % % 7-09 5 % 00:00: 00 Lidocaine 5 Lidocaine 5 2019-0 No BID Lidocaine % % 7-09 5 % 00:00: 00 Lidocaine 5 Lidocaine 5 2019-0 No BID Lidocaine % % 7-09 5 % 00:00: 00 Lidocaine 5 Lidocaine 5 2020-0 No BID Lidocaine % % 7-09 5 % 00:00: 00 Lidocaine 5 Lidocaine 5 2020-0 No BID Lidocaine % % 7-09 5 % 00:00: 00 Sertraline Sertraline No Sertraline HCl 100 MG [...] FreeStyle FreeStyle No FreeStyle Jonna Jonna Jonna [place] - traMADol traMADol No 1{table traMADol HCl [...] FreeStyle FreeStyle No FreeStyle Jonna Jonna Jonna [place] - Combigan Combigan No Combigan 0.2-0.5 % [...] 50 MG t_as_ne HCl 50 MG eded} Combigan Combigan No Combigan 0.2-0.5 % 0.2-0.5 [...] 0.01 % into_af 0.01 % fected_ eye_in_ the_brianne neri} Spironolact Spironolact No Spironolac one 25 MG [...] t_at_be HCl 50 MG dtime_a s_neede d} Albuterol Albuterol No 3{ml_as QID Albuterol Sulfate Sulfate _needed Sulfate (2.5 (2.5 } (2.5 MG/3ML) MG/3ML) MG/3ML) 0.083% 0.083% 0.083% Advair Advair No 1{puff} BID Advair Diskus Diskus Diskus 250-50 250-50 250-50 MCG/DOSE MCG/DOSE MCG/DOSE metFORMIN metFORMIN No 2{table BID metFORMIN HCl 500 MG HCl 500 MG t_with_ HCl 500 MG a_meal} Carvedilol Carvedilol No 1{table BID Carvedilol 25 MG 25 MG t_with_ 25 MG food} Aspirin 81 Aspirin 81 No 1{table QD Aspirin 81 MG MG t} MG Clopidogrel Clopidogrel No 1{table QD Clopidogre Bisulfate Bisulfate t} l 75 MG 75 MG Bisulfate 75 MG Spironolact Spironolact No Spironolac one 25 MG one 25 MG tone 25 MG Nitroglycer Nitroglycer No Nitroglyce in 0.4 MG in 0.4 MG rin 0.4 MG Nebulizer - Nebulizer - No Nebulizer - Novofine Novofine No Novofine Pen Needle Pen Needle Pen Needle 32G X 6 MM 32G X 6 MM 32G X 6 MM traMADol traMADol No 1{table traMADol HCl 50 MG HCl 50 MG t_as_ne HCl 50 MG eded} predniSONE predniSONE No 1{table BID predniSONE 20 MG 20 MG t} 20 MG amLODIPine amLODIPine No 1{table QD amLODIPine Besylate 10 Besylate 10 t} Besylate MG MG 10 MG guaiFENesin guaiFENesin No 10{ml_a QID guaiFENesi -DM 100-10 -DM 100-10 s_neede n-DM MG/5ML MG/5ML d} 100-10 MG/5ML Furosemide Furosemide No 1{table QD Furosemide 40 MG 40 MG t} 40 MG Ipratropium Ipratropium No 3{ml_as QID Ipratropiu -Albuterol -Albuterol _needed m-Albutero 0.5-2.5 (3) 0.5-2.5 (3) } l 0.5-2.5 MG/3ML MG/3ML (3) MG/3ML Rosuvastati Rosuvastati No 1{table QD Rosuvastat n Calcium n Calcium t} in Calcium 40 MG 40 MG 40 MG Pantoprazol Pantoprazol No Pantoprazo e Sodium 40 e Sodium 40 le Sodium MG MG 40 MG Metoclopram Metoclopram No 1{table TID Metoclopra mateus HCl 5 mateus HCl 5 t_befor mide HCl 5 MG MG e_meals MG } Levemir Levemir No BID Levemir FlexTouch FlexTouch FlexTouch 100 UNIT/ML 100 UNIT/ML 100 UNIT/ML Sertraline Sertraline No 1{table QD Sertraline HCl 100 MG HCl 100 MG t} HCl 100 MG Magnesium Magnesium No 1{capsu QD Magnesium 400 MG 400 MG le_with 400 MG _a_meal } Combigan Combigan No Combigan 0.2-0.5 % 0.2-0.5 % 0.2-0.5 % Lumigan Lumigan No 1{drop_ QD Lumigan 0.01 % 0.01 % into_af 0.01 % fected_ eye_in_ the_eve daron} traZODone traZODone No 1{table QD traZODone HCl 50 MG HCl 50 MG t_at_be HCl 50 MG dtime_a s_neede d} Albuterol Albuterol No 3{ml_as QID Albuterol Sulfate Sulfate _needed Sulfate (2.5 (2.5 } (2.5 MG/3ML) MG/3ML) MG/3ML) 0.083% 0.083% 0.083% Advair Advair No 1{puff} BID Advair Diskus Diskus Diskus 250-50 250-50 250-50 MCG/DOSE MCG/DOSE MCG/DOSE metFORMIN metFORMIN No 2{table BID metFORMIN HCl 500 MG HCl 500 MG t_with_ HCl 500 MG a_meal} Carvedilol Carvedilol No 1{table BID Carvedilol 25 MG 25 MG t_with_ 25 MG food} Aspirin 81 Aspirin 81 No 1{table QD Aspirin 81 MG MG t} MG Clopidogrel Clopidogrel No 1{table QD Clopidogre Bisulfate Bisulfate t} l 75 MG 75 MG Bisulfate 75 MG Spironolact Spironolact No Spironolac one 25 MG one 25 MG tone 25 MG Nitroglycer Nitroglycer No Nitroglyce in 0.4 MG in 0.4 MG rin 0.4 MG Nebulizer - Nebulizer - No Nebulizer - Novofine Novofine No Novofine Pen Needle Pen Needle Pen Needle 32G X 6 MM 32G X 6 MM 32G X 6 MM traMADol traMADol No 1{table traMADol HCl 50 MG HCl 50 MG t_as_ne HCl 50 MG eded} predniSONE predniSONE No 1{table BID predniSONE 20 MG 20 MG t} 20 MG amLODIPine amLODIPine No 1{table QD amLODIPine Besylate 10 Besylate 10 t} Besylate MG MG 10 MG guaiFENesin guaiFENesin No 10{ml_a QID guaiFENesi -DM 100-10 -DM 100-10 s_neede n-DM MG/5ML MG/5ML d} 100-10 MG/5ML Furosemide Furosemide No 1{table QD Furosemide 40 MG 40 MG t} 40 MG Ipratropium Ipratropium No 3{ml_as QID Ipratropiu -Albuterol -Albuterol _needed m-Albutero 0.5-2.5 (3) 0.5-2.5 (3) } l 0.5-2.5 MG/3ML MG/3ML (3) MG/3ML Rosuvastati Rosuvastati No 1{table QD Rosuvastat n Calcium n Calcium t} in Calcium 40 MG 40 MG 40 MG Pantoprazol Pantoprazol No Pantoprazo e Sodium 40 e Sodium 40 le Sodium MG MG 40 MG Metoclopram Metoclopram No 1{table TID Metoclopra mateus HCl 5 mateus HCl 5 t_befor mide HCl 5 MG MG e_meals MG } Levemir Levemir No BID Levemir FlexTouch FlexTouch FlexTouch 100 UNIT/ML 100 UNIT/ML 100 UNIT/ML Sertraline Sertraline No 1{table QD Sertraline HCl 100 MG HCl 100 MG t} HCl 100 MG Magnesium Magnesium No 1{capsu QD Magnesium 400 MG 400 MG le_with 400 MG _a_meal } Combigan Combigan No Combigan 0.2-0.5 % 0.2-0.5 % 0.2-0.5 % Lumigan Lumigan No 1{drop_ QD Lumigan 0.01 % 0.01 % into_af 0.01 % fected_ eye_in_ the_eve daron} traZODone traZODone No 1{table QD traZODone HCl 50 MG HCl 50 MG t_at_be HCl 50 MG dtime_a s_neede d} Magnesium Magnesium No 1{capsu QD Magnesium 400 MG 400 MG le_with 400 MG _a_meal } Spironolact Spironolact No Spironolac one 25 MG one 25 MG tone 25 MG Advair Advair No 1{puff} BID Advair Diskus Diskus Diskus 250-50 250-50 250-50 MCG/DOSE MCG/DOSE MCG/DOSE Pregabalin Pregabalin No 1{capsu BID Pregabalin 150 MG 150 MG le} 150 MG Lumigan Lumigan No 1{drop_ QD Lumigan 0.01 % 0.01 % into_af 0.01 % fected_ eye_in_ the_eve daron} Combigan Combigan No Combigan 0.2-0.5 % 0.2-0.5 % 0.2-0.5 % traZODone traZODone No 1{table QD traZODone HCl 50 MG HCl 50 MG t_at_be HCl 50 MG dtime_a s_neede d} Clopidogrel Clopidogrel No 1{table QD Clopidogre Bisulfate Bisulfate t} l 75 MG 75 MG Bisulfate 75 MG Pantoprazol Pantoprazol No Pantoprazo e Sodium 40 e Sodium 40 le Sodium MG MG 40 MG Sertraline Sertraline No Sertraline HCl 100 MG HCl 100 MG HCl 100 MG Metoclopram Metoclopram No 1{table TID Metoclopra mateus HCl 5 mateus HCl 5 t_befor mide HCl 5 MG MG e_meals MG } Levemir Levemir No BID Levemir FlexTouch FlexTouch FlexTouch 100 UNIT/ML 100 UNIT/ML 100 UNIT/ML amLODIPine amLODIPine No 1{table QD amLODIPine Besylate 10 Besylate 10 t} Besylate MG MG 10 MG Novofine Novofine No Novofine Pen Needle Pen Needle Pen Needle 32G X 6 MM 32G X 6 MM 32G X 6 MM Nebulizer - Nebulizer - No Nebulizer - Furosemide Furosemide No 1{table QD Furosemide 40 MG 40 MG t} 40 MG Ipratropium Ipratropium No 3{ml_as QID Ipratropiu -Albuterol -Albuterol _needed m-Albutero 0.5-2.5 (3) 0.5-2.5 (3) } l 0.5-2.5 MG/3ML MG/3ML (3) MG/3ML Carvedilol Carvedilol No 1{table BID Carvedilol 25 MG 25 MG t_with_ 25 MG food} Nitroglycer Nitroglycer No Nitroglyce in 0.4 MG in 0.4 MG rin 0.4 MG Albuterol Albuterol No 3{ml_as QID Albuterol Sulfate Sulfate _needed Sulfate (2.5 (2.5 } (2.5 MG/3ML) MG/3ML) MG/3ML) 0.083% 0.083% 0.083% traMADol traMADol No 1{table traMADol HCl 50 MG HCl 50 MG t_as_ne HCl 50 MG eded} Aspirin 81 Aspirin 81 No 1{table QD Aspirin 81 MG MG t} MG guaiFENesin guaiFENesin No 10{ml_a QID guaiFENesi -DM 100-10 -DM 100-10 s_neede n-DM MG/5ML MG/5ML d} 100-10 MG/5ML metFORMIN metFORMIN No 2{table BID metFORMIN HCl 500 MG HCl 500 MG t_with_ HCl 500 MG a_meal} Rosuvastati Rosuvastati No 1{table QD Rosuvastat n Calcium n Calcium t} in Calcium 40 MG 40 MG 40 MG predniSONE predniSONE No 1{table BID predniSONE 20 MG 20 MG t} 20 MG Levemir Levemir Yes Na Slaughter inject 66 C ommon FlexTouch FlexTouch units Spir it every - [facility] night as [facility] Combigan Combigan No Combigan 0.2-0.5 % 0.2-0.5 [...] FreeStyle FreeStyle No FreeStyle Jonna Jonna Jonna [place] Lumigan Lumigan No 1{drop_ QD Lumigan [...] FreeStyle FreeStyle No FreeStyle Jonna Jonna Jonna [place] - traZODone traZODone No 1{table QD traZODone [...] FreeStyle FreeStyle No FreeStyle Jonna Jonna Jonna [place] - Furosemide Furosemide No 1{table QD Furosemide [...] FreeStyle FreeStyle No FreeStyle Jonna Jonna Jonna [place] - traMADol traMADol No 1{table traMADol HCl [...] Diskus 250-50 250-50 250-50 MCG/DOSE MCG/DOSE MCG/DOSE Immunizations Ordered Immunization Filled Immunization Date Status Commen ts Source Name Name FLUZONE HIGH DOSE FLUZONE HIGH DOSE 2022-01-14 [facility] OVER [facility] OVER 65 11:55:00 [facility] FLUZONE HIGH DOSE FLUZONE HIGH DOSE 2022-01-14 Completed [facility] OVER 65 OVER 65 11:55:00 [facility] FLUZONE HIGH DOSE FLUZONE HIGH DOSE 2022-01-14 Completed [facility] OVER 65 OVER 65 11:55:00 [facility] Vital Signs Vital Name Observation Time Observation Value Comments Source HEIGHT 2020-07-03 17:00:00 154.9 cm WEIGHT 2020-07-03 17:00:00 103.556 kg HEIGHT 2022-01-22 13:56:00 157.5 cm WEIGHT 2022-01-22 13:56:00 90.719 kg HEIGHT 2022-01-22 13:56:00 157.5 cm WEIGHT 2022-01-22 13:56:00 90.719 kg HEIGHT 2022-01-22 13:56:00 157.5 cm WEIGHT 2022-01-22 13:56:00 90.719 kg height 2022-01-14 10:20:00 62 [in_i] [facility] weight 2022-01-14 10:20:00 230.0 [lb_av] [facility] temperature 2022-01-14 10:20:00 97.3 [degF] [facility] bmi 2022-01-14 10:20:00 42.06 kg/m2 [facility] oximetry 2022-01-14 10:20:00 95 % [facility] respiratory rate 2022-01-14 10:20:00 16 /min Comm on [facility] blood pressure 2022-01-14 10:20:00 136 mm[Hg] [facility] - systolic [facility] blood pressure 2022-01-14 10:20:00 78 mm[Hg] [facility] - diastolic [facility] height 2021-12-10 11:40:00 62 [in_i] [facility] weight 2021-12-10 11:40:00 224 [lb_av] [facility] bmi 2021-12-10 11:40:00 40.97 kg/m2 [facility] height 2021-09-30 12:00:00 62 [in_i] [facility] weight 2021-09-30 12:00:00 224 [lb_av] [facility] bmi 2021-09-30 12:00:00 40.97 kg/m2 [facility] height 2021-09-08 13:00:00 62 [in_i] [facility] weight 2021-09-08 13:00:00 223 [lb_av] [facility] temperature 2021-09-08 13:00:00 97.5 [degF] [facility] bmi 2021-09-08 13:00:00 40.78 kg/m2 [facility] oximetry 2021-09-08 13:00:00 96 % [facility] respiratory rate 2021-09-08 13:00:00 20 /min [facility] blood pressure 2021-09-08 13:00:00 150 mm[Hg] [facility] - systolic [facility] blood pressure 2021-09-08 13:00:00 88 mm[Hg] [facility] - diastolic [facility] height 2021-06-02 13:00:00 62 [in_i] [facility] weight 2021-06-02 13:00:00 242 [lb_av] [facility] temperature 2021-06-02 13:00:00 98.5 [degF] [facility] bmi 2021-06-02 13:00:00 44.26 kg/m2 [facility] oximetry 2021-06-02 13:00:00 91 % [facility] blood pressure 2021-06-02 13:00:00 120 mm[Hg] [facility] - systolic [facility] blood pressure 2021-06-02 13:00:00 70 mm[Hg] [facility] - diastolic [facility] height 2021-06-02 13:40:00 62 [in_i] [facility] weight 2021-06-02 13:40:00 242 [lb_av] [facility] temperature 2021-06-02 13:40:00 98.5 [degF] [facility] bmi 2021-06-02 13:40:00 44.26 kg/m2 [facility] oximetry 2021-06-02 13:40:00 91 % [facility] respiratory rate 2021-06-02 13:40:00 18 /min [facility] on [facility] blood pressure 2021-06-02 13:40:00 120 mm[Hg] [facility] systolic [facility] blood pressure 2021-06-02 13:40:00 70 mm[Hg] [facility] diastolic [facility] height 2021-03-04 11:00:00 62 [in_i] [facility] weight 2021-03-04 11:00:00 220 [lb_av] [facility] bmi 2021-03-04 11:00:00 40.23 kg/m2 [facility] height 2020-12-19 16:40:00 62 [in_i] [facility] weight 2020-12-19 16:40:00 220 [lb_av] [facility] bmi 2020-12-19 16:40:00 40.23 kg/m2 [facility] HEIGHT 2020-07-03 17:00:00 154.9 cm WEIGHT 2020-07-03 17:00:00 103.556 kg Systolic blood 2022-01-25 16:00:00 120 mm[Hg] [facility] Diastolic blood 2022-01-25 16:00:00 56 mm[Hg] [facility] Heart rate 2022-01-25 16:00:00 76 /min [facility] Body temperature 2022-01-25 16:00:00 36.78 Leonor [facility] Respiratory rate 2022-01-25 16:00:00 18 /min [facility] Oxygen saturation in 2022-01-25 16:00:00 91 /min [facility] Arterial blood by Medical Ce nter Pulse oximetry Body height 2022-01-23 01:22:00 157.5 cm [facility] Body weight 2022-01-23 01:22:00 104.327 kg [facility] BMI 2022-01-23 01:22:00 42.07 kg/m2 [facility] Procedures Procedure Date / Time Performed Performing Clinician Sour e POCT-GLUCOSE METER 2022-01-25 12:45:00 Vita [facility] POCT-GLUCOSE METER 2022-01-25 07:38:00 Vita, [facility] CBC (HEMOGRAM ONLY) 2022-01-25 04:46:00 [facility] BASIC METABOLIC PANEL 2022-01-25 04:46:00 Vita Joann Hyalyx I [facility] MAGNESIUM 2022-01-25 04:46:00 Vita [facility] ECG 12-LEAD 2022-01-25 01:14:58 Unknown, Hl7 [facility] ECG 12-LEAD 2022-01-25 01:14:58 Unknown, Hl7 [facility] ECG 12-LEAD 2022-01-25 01:14:09 Unknown, Hl7 [facility] ECG 12-LEAD 2022-01-25 01:14:09 Unknown, Hl7 [facility] ECG 12-LEAD 2022-01-25 01:09:07 Unknown, Hl7 [facility] POCT-GLUCOSE METER 2022-01-24 22:02:00 Vita [facility] POCT-GLUCOSE METER 2022-01-24 16:38:00 [facility] W/ DOPPLER 2022-01-24 12:58:06 Alison Pope [facility] (CW/PW/COLOR) [facility] POCT-GLUCOSE METER 2022-01-24 12:36:00 Vita, [facility] POCT-GLUCOSE METER 2022-01-24 08:08:00 Vita, [facility] CBC (HEMOGRAM ONLY) 2022-01-24 04:40:00 Vita, [facility] BASIC METABOLIC PANEL 2022-01-24 04:40:00 Vita, [facility] MAGNESIUM 2022-01-24 04:40:00 Vita, [facility] POCT-GLUCOSE METER 2022-01-23 21:53:00 Vita, [facility] POCT-GLUCOSE METER 2022-01-23 17:16:00 Vita, [facility] XR CHEST 1 VIEW PORTABLE 2022-01-23 15:02:00 [facility] B-TYPE NATRIURETIC FACTOR 2022-01-23 13:57:00 [facility] ([facility] VENOUS DOPPLER LEG, RIGHT 2022-01-23 12:00:00 Vita, [facility] POCT-GLUCOSE METER 2022-01-23 11:55:00 Vita, [facility] POCT-GLUCOSE METER 2022-01-23 08:42:00 Vita, [facility] MRA HEAD WITHOUT IV 2022-01-23 08:18:00 Vita, [facility] CONTRAST [facility] MRA NECK WITHOUT IV 2022-01-23 08:18:00 Vita, [facility] CONTRAST [facility] MR BRAIN WITHOUT IV 2022-01-23 08:18:00 Vita, [facility] POCT-GLUCOSE METER 2022-01-23 06:25:00 Vita, Joann Hymary loua [facility] HEMOGLOBIN A1C 2022-01-23 05:59:00 Vita, Joannsa Anna [facility] CBC (HEMOGRAM ONLY) 2022-01-23 05:59:00 Vita, Joann Setha [facility] BASIC METABOLIC PANEL 2022-01-23 05:59:00 Vita, Joann Setha I [facility] MAGNESIUM 2022-01-23 05:59:00 Vita, [facility] VITAMIN B12 2022-01-23 05:59:00 Vita, [facility] RPR 2022-01-23 05:59:00 Vita, [facility] HC LAB HIV-1 AG W/HIV-1&2 2022-01-23 05:59:00 Vita, Joann pastrana [facility] LIPID PANEL 2022-01-23 05:59:00 Alison Pope [facility] SODIUM, RANDOM URINE 2022-01-23 01:28:00 Vita, [facility] CREATININE, RANDOM URINE 2022-01-23 01:28:00 Vita, [facility] UREA NITROGEN, RANDOM 2022-01-23 01:28:00 Vita, Joann mary loua I [facility] URINE [facility] POCT-GLUCOSE METER 2022-01-22 23:10:00 Vita, Joann mary loua [facility] US RENAL COMPLETE 2022-01-22 21:35:00 Vita, [facility] SARS-COV2/RT-PCR ([facility] & 2022-01-22 19:22:00 Vita, [facility] 2022-01-22 14:57:00 Harvey Jackman [facility] CBC W/PLT COUNT & AUTO 2022-01-22 14:57:00 Harvey Jackman [facility] I [facility] COMPREHENSIVE METABOLIC 2022-01-22 14:57:00 Harvey Jackman [facility] URINALYSIS W/ REFLEX 2022-01-22 14:57:00 Harvey Jackman [facility] URINE CULTURE Medical Center MAGNESIUM 2022-01-22 14:57:00 Harvey Jackman [facility] CBC W/PLT COUNT & AUTO 2022-01-22 14:57:00 Harvey Jackman CH, I [facility] CTA BRAIN 2022-01-22 14:19:00 [facility] CTA CAROTID 2022-01-22 14:19:00 [facility] CT BRAIN CEREBRAL 2022-01-22 14:19:00 [facility] PERFUSION ANALYSIS Medical Cente r CT BRAIN/STROKE TEST 2022-01-22 13:42:00 Harvey Jackman [facility] Plan of Care Planned Activity Planned Date Details Comments Source Future Scheduled 2021-11-19 INFLUENZA VACCINE (#1) [facility]00 [code = INFLUENZA Medical Ce nter VACCINE (#1)] Future Scheduled 2021-11-19 INFLUENZA VACCINE (#1) [facility] 00:00:00 [code = INFLUENZA Medical Ce nter VACCINE (#1)] Future Scheduled 2021-03-[address] [facility] [facility] 00:00:00 WELLNESS (YEAR 2 or Medical Center FIRST YEAR if no IPPE) [code = MEDICARE ANNUAL WELLNESS (YEAR 2 or FIRST YEAR if no IPPE)] Future Scheduled 2021-03-[address] [facility] 00:00:00 WELLNESS (YEAR 2 or Medical Center FIRST YEAR if no IPPE) [code = MEDICARE ANNUAL WELLNESS (YEAR 2 or FIRST YEAR if no IPPE)] Future Scheduled 2021-03-[address] [facility] 00:00:00 (12+) [code = Medical Center DEPRESSION SCREENING (12+)] Future Scheduled 2021-03-21 FALLS RISK SCREENING [facility] 00:00:00 [code = FALLS RISK Medical C enter SCREENING] Future Scheduled 2021-03-[address] [facility] 00:00:00 (12+) [code = Medical Center DEPRESSION SCREENING (12+)] Future Scheduled 2021-03-21 FALLS RISK SCREENING [facility] 00:00:00 [code = FALLS RISK Medical C enter SCREENING] Future Scheduled 2020-10-[address] [facility] 00:00:00 measurement Medical Center (procedure) [code = 83962916] Future Scheduled 2020-10-[address] [facility] 00:00:00 measurement Medical Center (procedure) [code = 68178851] Future Scheduled 1991-12-12 SHINGLES VACCINES ([address] [facility] 00:00:00 of 2) [code = SHINGLES Medic al Center VACCINES (1 of 2)] Future Scheduled 1991-12-12 SHINGLES VACCINES ([address] [facility] 00:00:00 of 2) [code = SHINGLES Medic al Center VACCINES (1 of 2)] Future Scheduled 1960 DTAP/TDAP/TD VACCINES [facility] 00:00:00 (1 - Tdap) [code = Medical C enter DTAP/TDAP/TD VACCINES (1 - Tdap)] Future Scheduled 1960 DTAP/TDAP/TD VACCINES [facility] 00:00[facility]00 (1 - Tdap) [code = Medical C enter DTAP/TDAP/TD VACCINES (1 - Tdap)] Future Scheduled [address] [facility] 00:00:00 Counseling and Medical Cente r Screening (12+) [code = Tobacco Cessation Counseling and Screening (12+)] Future Scheduled 1951-12-[address] EXAM [facility] 00:00:00 [code = DIABETIC EYE Medical Center EXAM] Future Scheduled 1951-12-[address] [facility] 00:[facility]:00 examination Medical Center (regime/therapy) [code = 003998945] Future Scheduled 1951-12-12 Urine screening for [facility] 00:00:00 protein (procedure) Medical Center [code = 494297054] Future Scheduled 1951-12-[address] DI[address]YE EXAM [facility] 00:00:00 [code = DIABETIC EYE Medical Center EXAM] Future Scheduled 1951-12-[address] [facility] 00:00:00 examination Medical Center (regime/therapy) [code = 790258124] Future Scheduled 1951-12-12 Urine screening for [facility] 00:00:00 protein (procedure) [facility] Center [code = 743251728] Future Scheduled 1947-12-12 PNEUMOCOCCAL 65+ YRS [facility] 00:00:00 (1 - PCV) [code = Medical Ce nter PNEUMOCOCCAL 65+ YRS (1 - PCV)] Future Scheduled 1947-12-12 PNEUMOCOCCAL 65+ Y[facility] 00:00:00 (1 - PCV) [code = Medical Ce nter PNEUMOCOCCAL 65+ YRS (1 - PCV)] Future Scheduled 1942-06-10 COVID-19 VACCINE (#1) [facility]00 [code = COVID-[address] VACCINE (#1)] Future Scheduled 1942-06-10 COVID-19 VACCINE (#1) [facility] 00:00:00 [code = COVID-[address] VACCINE (#1)] Future Scheduled 1941 DXA SCAN [code = DXA [facility] 00:[facility]00 SCAN] [facility] Future Scheduled 1941 DXA SCAN [code = DXA [facility] SCAN] [facility] Encounters Start End Encounter Admission Attending Care Care Encounter Source Date/Time Date/Time Type Type Clinicians Facility Department ID 2022-01-22 Inpatient ER BRYCE [facility] Neurology [id number] 11:02:17 [facility] 2022-01-22 Hospital Bryce [facility] [id number] 00:00:00 Encounter [facility] Sridhar Mitchell [facility] 2022-01-12 Outpatient Addie Slaughter [facility] [id number] 2 Common 14:58:01 [facility] 2021-12-08 [facility] [id number] 2 Common 10:45:00 [facility] 2021-09-29 Outpatient Slaughter, Na STLMLC STLMLC [id number] 2 Common 11:51:00 [facility] 2021-09-28 Outpatient Slaughter, Na STLMLC STLMLC [id number] 2 Common 10:30:01 [facility] 2021-09-04 Outpatient Slaughter, Na STLMLC STLMLC [id number] 2 Common 13:45:00 [facility] 2021-06-02 Outpatient Slaughter, Na STLMLC STLMLC [id number] 2 Common 13:14:01 [facility] 2021-06-01 Outpatient Slaughter, Na STLMLC STLMLC [id number] 2 Common 14:17:00 [facility] 2021-05-29 Outpatient Slaughter, Na STLMLC STLMLC [id number] 2 Common 09:59:01 [facility] 2021-05-06 Outpatient Slaughter, Na STLMLC STLMLC [id number] 2 Common 16:04:00 [facility] 2021-04-15 Outpatient Slaughter, Na STLMLC STLMLC [id number] 2 Common 14:24:29 [id number] [facility] 2021-04-15 Outpatient Slaughter, Na STLMLC STLMLC [id number] 2 Common 14:24:14 [id number] [facility] 2021-04-15 Outpatient Slaughter, Na STLMLC STLMLC [id number] 2 Common 14:19:03 [id number] [facility] 2021-04-15 Outpatient Slaughter, Na STLMLC STLMLC [id number] 2 Common 14:06:54 [id number] [facility] 2021-04-15 Outpatient Slaughter, Na STLMLC STLMLC [id number] 2 Common 13:02:26 [id number] [facility] 2021-04-15 Outpatient Slaughter, Na STLMLC STLMLC [id number] 2 Common 13:01:50 [id number] [facility] 2021-04-15 Outpatient Slaughter, Na STLMLC STLMLC [id number] 2 Common 13:01:22 [id number] [facility] 2021-04-15 Outpatient Slaughter, Na STLMLC STLMLC [id number] 2 Common 12:57:37 [id number] [facility] 2021-04-15 Outpatient Slaughter, Na STLMLC STLMLC [id number] 2 Common 12:33:49 [id number] [facility] 2021-04-15 Outpatient Slaughter, Na STLMLC STLMLC [id number] 2 Common 12:32:45 [id number] [facility] 2021-04-15 Outpatient Slaughter, Na STLMLC STLMLC [id number] 2 Common 12:31:08 [id number] [facility] 2021-04-15 Outpatient Slaughter, Na STLMLC STLMLC [id number] 2 Common 12:26:24 [id number] [facility] 2021-04-15 Outpatient Slaughter, Na STLMLC STLMLC [id number] 2 Common 12:26:03 [id number] [facility] 2021-04-15 Outpatient Slaughter, Na STLMLC STLMLC [id number] 2 Common 12:24:50 [id number] [facility] 2021-04-15 Outpatient Slaughter, Na STLMLC STLMLC [id number] 2 Common 11:59:32 [id number] [facility] 2021-04-15 Outpatient Slaughter, Na STLMLC STLMLC [id number] 2 Common 11:26:16 [id number] [facility] 2021-04-15 Outpatient Slaughter, Na STLMLC STLMLC [id number] 2 Common 11:19:17 [id number] [facility] 2021-04-15 Outpatient Slaughter, Na STLMLC STLMLC [id number] 2 Common 11:18:55 [facility] 2020-07-03 [facility] Cardiology [id number] [facility] 16:58:00 ASTRID 2022-02-05 2022-02-05 (TEL) STLMLC STLMLC [id number] Co mmon 00:00:00 00:00:00 [facility] 2022-01-26 2022-01-26 (TEL) STLMLC STLMLC [id number] Co mmon 00:00:00 00:00:00 [facility] 2022-01-25 2022-01-25 Outpatient [facility] [id number] [facility] 00:00:00 23:59:00 Sean Medicin e 2022-01-22 2022-01-25 [facility] Harvey Jackman [facility] [id number] 13:28:00 17:48:00 Encounter Joann Gorman [facility] 2022-01-22 2022-01-25 Inpatient ER VITA, [facility] Emergency [id number] SLE 13:28:00 17:48:00 JOANN 2022-01-25 2022-01-25 Orders [facility] [id number] 00:00:00 00:00:00 [facility] 2022-01-22 2022-01-22 Travel [facility] [id number] [facility] 00:[facility] 00:00:00 [facility] 2022-01-14 2022-01-14 OFFICE STLMLC STLC [id number] Co mmon 00:00:00 00:00:00 VISIT [facility] LEVEL 4 [facility] 2022-01-11 2022-01-11 (TEL) STLMLC STLMLC [id number] Co mmon 00:00:00 00:00:00 [facility] 2022-01-08 2022-01-08 (TEL) STLMLC STLMLC [id number] Co mmon 00:00:00 00:00:00 [facility] 2021-12-14 2021-12-14 (TEL) STLMLC STLMLC [id number] Co mmon 00:00:00 00:00:00 [facility] 2021-12-10 2021-12-10 OFFICE STLMLC STLMLC [id number] Co mmon 00:00:00 00:00:00 VISIT [facility] PT - CHI LEVEL 4 [facility] 2021-12-04 2021-12-04 (TEL) STLMLC STLMLC [id number] Co mmon 00:00:00 00:00:00 [facility] 2021-10-29 2021-10-29 (TEL) STLMLC STLMLC [id number] Co mmon 00:00:00 00:00:00 [facility] 2021-09-30 2021-09-30 OFFICE STLMLC STLMLC [id number] Co mmon 00:00:00 00:00:00 VISIT EST Spir it PT LEVEL 3 [facility] 2021-09-24 2021-09-24 (TEL) STLMLC STLMLC [id number] Co mmon 00:00:00 00:00:00 [facility] 2021-09-14 2021-09-14 (TEL) STLMLC STLMLC [id number] Co mmon 00:00:00 00:00:00 [facility] 2021-09-08 2021-09-08 OFFICE STLMLC STLMLC [id number] Co mmon 00:00:00 00:00:00 VISIT [facility] PT - CHI LEVEL 4 [facility] 2021-06-23 2021-06-23 (TEL) STLMLC STLMLC [id number] Co mmon 00:00:00 00:00:00 [facility] 2021-06-02 2021-06-02 SUB ANNUAL STLMLC STLMLC [id number] Common 00:00:00 00:00:00 MCR [facility] WELLNESS - CHI VISIT [facility] 2021-06-02 2021-06-02 OFFICE STLMLC STLMLC [id number] Co mmon 00:00:00 00:00:00 VISIT EST Spir it PT LEVEL 3 [facility] 2021-04-23 2021-04-23 (TEL) STLMLC STLMLC [id number] Co mmon 00:00:00 00:00:00 [facility] 2021-03-04 2021-03-04 OFFICE STLMLC STLMLC [id number] Co mmon 00:00:00 00:00:00 VISIT [facility] ESTAB PT - CHI LEVEL 4 [facility] 2020-12-19 2020-12-19 OFFICE STLMLC STLMLC [id number] Co mmon 00:00:00 00:00:00 VISIT [facility] PT - CHI LEVEL 4 [facility] 2020-12-09 2020-12-09 Outpatient STLMLC STLMLC [id number] Common 00:00:00 00:00:00 [facility] 2020-09-26 2020-09-26 Outpatient STLMLC STLMLC [id number] Common 00:00:00 00:00:00 [facility] 2020-09-25 2020-09-25 Outpatient STLMLC STLMLC [id number] Common 00:00:00 00:00:00 [facility] 2020-09-08 2020-09-08 Outpatient STLMLC STLMLC [id number] Common 00:00:00 00:00:00 [facility] 2020-08-27 2020-08-27 Outpatient STLMLC STLMLC [id number] Common 00:00:00 00:00:00 [facility] 2020-08-19 2020-08-19 Outpatient Miller_S_AH VFP VFP [id number] Village 05:09:00 05:09:00 [id number] [facility] 2020-07-30 2020-07-30 Outpatient STLMLC STLMLC [id number] Common 00:00:00 00:00:00 [facility] 2020-07-17 2020-07-17 Outpatient STLMLC STLMLC [id number] Common 00:00:00 00:00:00 [facility] 2020-07-16 2020-07-16 Outpatient Curly-Mbayo VFP VFP [id number] Village 02:54:00 02:54:00 _A_AH [id number] Family Practic e 2020-07-16 2020-07-16 Outpatient Curly-Mbayo VFP VFP [id number] [facility] 02:54:00 02:54:00 _A_ [id number] Family Practic e 2020-05-21 2020-05-21 Outpatient STLMLC STLMLC [id number] Common 00:00:00 00:00:00 [facility] 2020-05-20 2020-05-20 Outpatient STLMLC STLMLC [id number] Common 00:00:00 00:00:00 [facility] 2020-05-12 2020-05-12 Outpatient STLMLC STLMLC [id number] Common 00:00:00 00:00:00 [facility] 2020-04-30 2020-04-30 Outpatient STLMLC STLMLC [id number] Common 00:00:00 00:00:00 [facility] 2020-04-18 2020-04-18 Outpatient STLMLC STLMLC [id number] Common 00:00:00 00:00:00 [facility] 2020-02-06 2020-02-06 Outpatient STLMLC STLMLC [id number] Common 00:00:00 00:00:00 [facility] 2020-01-16 2020-01-16 Outpatient STLMLC STLMLC [id number] Common 00:00:00 00:00:00 [facility] 2020-01-15 2020-01-15 Outpatient STLMLC STLMLC [id number] Common 00:00:00 00:00:00 [facility] 2019-12-17 2019-12-17 Outpatient STLMLC STLMLC [id number] Common 00:00:00 00:00:00 [facility] 2019-11-21 2019-11-21 [facility] [id number] Common 15:40:00 15:40:[address] [employer] [address] [facility] 2019-10-22 2019-10-22 [facility] [id number] Common 10:38:00 10:38:[address] [facility] 2019-10-02 2019-10-02 [facility] [id number] Common 11:02:00 11:02:00 [place] [address] [facility] 2019-09-26 2019-09-26 [facility] [id number] Common 14:15:00 14:15:00 [address] [place] [address] [facility] 2019-09-20 2019-09-20 [facility] [id number] Common 16:10:00 16:10:00 [address] [place] [address] [facility] 2019-09-13 2019-09-13 [facility] [id number] Common 15:19:00 15:19:00 [address] [place] [address] [facility] 2019-09-06 2019-09-06 [facility] [id number] Common 16:13:00 16:13:00 [address] [place] [address] [facility] 2019-09-04 2019-09-04 [facility] [id number] Common 11:20:00 11:20:00 [address] [place] [address] [facility] 2019-08-28 2019-08-28 [facility] [id number] Common 09:58:00 09:58:00 t [facility] [address] [facility] 2019-08-07 2019-08-07 [facility] [id number] Common 09:40:00 09:40:00 [address] [place] [address] [facility] 2019-07-24 2019-07-24 [facility] 30 [id number] Common 16:54:00 16:54:00 t [place] [address] [facility] 2019-07-17 2019-07-17 [facility] [id number] Common 16:20:00 16:20:00 t [place] [address] [facility] 2019-07-13 2019-07-13 [facility] [id number] Common 09:00:00 09:00:00 [address] [place] [address] Spir it [facility] 2019-05-09 2019-05-09 Outpatient Curly-Mbjacko VFP VFP [phone] [place] 07:15:00 07:15:00 _A_AH [id number] Family Practic e 2019-05-09 2019-05-09 Outpatient Curly-Mbayo VFP VFP [phone] [place] 07:15:00 07:15:00 _A_AH 44476 Family Practic e 2019-05-09 2019-05-09 Outpatient Curly-Mbayo VFP VFP [phone] [facility] 07:15:00 07:15:00 _A_AH 30228 Family Practic e Results Test Description Test Time Test Comments Results Result Comments Source RPR 2022-01-25 14:38:51 Test Item Value Reference Range Interpretation Comme nts RPR SCREEN (MASTER) (test code = 420) Nonreactive Nonreactive POC-Glucose [id number] 12:58:04 Test Item Value Reference Range Interpretation Comments POC-Glucose Meter (test 154 mg/dL 70-110 H : TE STED AT [facility] code = 1538) [address] [facility], 770 30: Incinerator Plant General Supervisor/Techni daisy ID = [id number] for QIAN HOOD Lab Interpretation (test Abnormal code = 13664-4) [facility] [id number] 12:58:04 Test Item Value Reference Range Interpretation Comments POC-GLUCOSE METER 154 mg/dL 70-110 H : TESTED A T [facility] 6720 (BEAKER) (test code = [facility], 1538) [address]: Incinerator Plant General Supervisor/Techni daisy ID = [id number] for MA RTINEZ, LIVIER POCT-GLUCOSE [id number] 07:53:47 Test Item Value Reference Range Interpretation Comments POC-GLUCOSE METER 132 mg/dL 70-110 H : TESTED A T [facility] 6720 (BEAKER) (test code = [facility], 1538) [address]: Incinerator Plant General Supervisor/Techni daisy ID = [id number] for MA RTINEZ, LIVIER BASIC METABOLIC [id number] 06:28:27 Test Item Value Reference Range Interpretation Comments SODIUM (BEAKER) 138 meq/L 136-145 (test code = 381) POTASSIUM 4.0 meq/L 3.5-5.1 (BEAKER) (test code = 379) CHLORIDE (BEAKER) 103 meq/L 98-107 (test code = 382) CO2 (BEAKER) 28 meq/L 22-29 (test code = 355) BLOOD UREA 17 mg/dL 7-21 NITROGEN (BEAKER) (test code = 354) CREATININE 1.15 mg/dL 0.57-1.25 (BEAKER) (test code = 358) GLUCOSE RANDOM 141 mg/dL 70-105 H (BEAKER) (test code = 652) CALCIUM (BEAKER) 9.2 mg/dL 8.4-10.2 (test code = 697) EGFR (BEAKER) 48 Interpretatio n of eGFR (test code = mL/min/1.73 values Stage De scription 1092) sq m Result G1 Wendy l or high >=90 G2 Mildly decreased 60-89 G3a Mildl y to moderately 45-5 9 G3b Moderately to s everely 30-44 G4 Severl y decreased 15-29 G5 Kidney failure <15Reported eGF R is based on the CKD-EPI 2020 equation that d oes not use a race coefficientEsti mated GFR is not as accur ate as Creatinine Malika hernández in predicting glom erular filtration rate . Estimated GFR is not appl icable for dialysis patien ts [employer]inerator Plant General Supervisor ID - LAYTON [id number] 06:28:27 Test Item Value Reference Range Interpretation Comments MAGNESIUM (BEAKER) (test code = 1.9 mg/dL 1.6-2.6 627) [employer] General Supervisor ID Manny TRAYLOR LCBC (HEMOGRAM ONLY)2022-01-25 05:24:35 Test Item Value Reference Range Interpretation Comments WHITE BLOOD CELL COUNT (BEAKER) 7.1 K/ L 3.5-10.5 (test code = 775) RED BLOOD CELL COUNT (BEAKER) 3.64 M/ L 3.93-5.22 L (test code = 761) HEMOGLOBIN (BEAKER) (test code = 10.1 GM/DL 11.2-15.7 L 410) HEMATOCRIT (BEAKER) (test code = 32.0 % 34.1-44.9 L 411) MEAN CORPUSCULAR VOLUME (BEAKER) 88 fL 79-95 (test code = 753) MEAN CORPUSCULAR HEMOGLOBIN 27.7 pg 25.6-32.2 (BEAKER) (test code = 751) MEAN CORPUSCULAR HEMOGLOBIN CONC 31.6 GM/DL 32.2-35.5 L (BEAKER) (test code = 752) RED CELL DISTRIBUTION WIDTH 14.1 % 11.7-14.4 (BEAKER) (test code = 412) PLATELET COUNT (BEAKER) (test 177 K/CU MM 150-450 code = 756) MEAN PLATELET VOLUME (BEAKER) 10.2 fL 9.4-12.3 (test code = 754) NUCLEATED RED BLOOD CELLS 0 /100 WBC 0-0 (BEAKER) (test code = 413) POCT-GLUCOSE [id number] 22:37:28 Test Item Value Reference Range Interpretation Comments POC-GLUCOSE METER 211 mg/dL 70-110 H : TESTED A T [facility] 6720 (Pumodo) (test code = [facility], 153) [address]12[address]: Incinerator Plant General Supervisor/Techni daisy ID = [id number] for FLOR SHIRLENE CRYSTAL 2D Echo W/Doppler(CW/PW/Color)2022-01-24 17:35:48Ejection FractionSLE ECHO HEARTLAB MKCKESSON [facility] [id number] 16:50:38 Test Item Value Reference Range Interpretation Comments POC-GLUCOSE METER 289 mg/dL 70-110 H : TESTED A T [facility] 6720 (Pumodo) (test code = [facility], 153) [address]: Incinerator Plant General Supervisor/Techni daisy ID = [id number] for An derson, Radha POCT-GLUCOSE [id number] 12:48:56 Test Item Value Reference Range Interpretation Comments POC-GLUCOSE METER 297 mg/dL 70-110 H : TESTED A T [facility] 6720 (BEAKER) (test code = [facility], 1538) 52684: Incinerator Plant General Supervisor/Techni daisy ID = [id number] for An derson, Radha POCT-GLUCOSE [id number] 08:20:48 Test Item Value Reference Range Interpretation Comments POC-GLUCOSE METER 294 mg/dL 70-110 H : TESTED A T [facility] 6720 (BEAKER) (test code = [place], 1538) [address]: Incinerator Plant General Supervisor/Techni daisy ID = [id number] for An Radha perez POCT-GLUCOSE [id number] 07:53:11 Test Item Value Reference Range Interpretation Comments POC-GLUCOSE METER 347 mg/dL 70-110 H : TESTED A T [facility] 6720 (BEAKER) (test code = MAMTA Seth [facility], 1538) [address]: Incinerator Plant General Supervisor/Techni daisy ID = [id number] for Ra mos, May Venous doppler leg, [id number] 06:50:36Ejection FractionSLEH ECHO HEARTLAB MKCKESSON CPACHI [id number] 05:32:04 Test Item Value Reference Range Interpretation Comments MAGNESIUM (BEAKER) (test code = 2.0 mg/dL 1.6-2.6 627) Incinerator Plant General Supervisor ID - BHUMIKA WBASIC METABOLIC [id number] 05:32:03 Test Item Value Reference Range Interpretation Comments SODIUM (BEAKER) 138 meq/L 136-145 (test code = 381) POTASSIUM 4.8 meq/L 3.5-5.1 (BEAKER) (test code = 379) CHLORIDE (BEAKER) 103 meq/L 98-107 (test code = 382) CO2 (BEAKER) 27 meq/L 22-29 (test code = 355) BLOOD UREA 21 mg/dL 7-21 NITROGEN (BEAKER) (test code = 354) CREATININE 1.49 mg/dL 0.57-1.25 H (BEAKER) (test code = 358) GLUCOSE RANDOM 292 mg/dL 70-105 H (BEAKER) (test code = 652) CALCIUM (BEAKER) 9.1 mg/dL 8.4-10.2 (test code = 697) EGFR (BEAKER) 35 Interpretatio n of eGFR (test code = mL/min/1.73 values Stage De scription 1092) sq m Result G1 Wendy l or high >=90 G2 Mildly decreased 60-89 G3a Mild ly to moderately 45-5 9 G3b Moderately to s everely 30-44 G4 Severl y decreased 15-29 G5 Kidney failure <15Reported eGF R is based on the CKD-EPI 2020 equation that d oes not use a race coefficientEsti mated GFR is not as accur ate as Creatinine Malika hernández in predicting glom erular filtration rate . Estimated GFR is not appl icable for dialysis patien ts Incinerator Plant General Supervisor ID - BHUMIKA WCBC (HEMOGRAM ONLY)2022-01-24 04:47:08 Test Item Value Reference Range Interpretation Comments WHITE BLOOD CELL COUNT (BEAKER) 6.9 K/ L 3.5-10.5 (test code = 775) RED BLOOD CELL COUNT (BEAKER) 3.55 M/ L 3.93-5.22 L (test code = 761) HEMOGLOBIN (BEAKER) (test code = 9.9 GM/DL 11.2-15.7 L 410) HEMATOCRIT (BEAKER) (test code = 31.1 % 34.1-44.9 L 411) MEAN CORPUSCULAR VOLUME (BEAKER) 88 fL 79-95 (test code = 753) MEAN CORPUSCULAR HEMOGLOBIN 27.9 pg 25.6-32.2 (BEAKER) (test code = 751) MEAN CORPUSCULAR HEMOGLOBIN CONC 31.8 GM/DL 32.2-35.5 L (BEAKER) (test code = 752) RED CELL DISTRIBUTION WIDTH 13.9 % 11.7-14.4 (BEAKER) (test code = 412) PLATELET COUNT (BEAKER) (test 181 K/CU MM 150-450 code = 756) MEAN PLATELET VOLUME (BEAKER) 9.8 fL 9.4-12.3 (test code = 754) NUCLEATED RED BLOOD CELLS 0 /100 WBC 0-0 (BEAKER) (test code = 413) POCT-GLUCOSE [id number] 17:28:54 Test Item Value Reference Range Interpretation Comments POC-GLUCOSE METER 334 mg/dL 70-110 H : TESTED A T [facility] 6720 (BEAKER) (test code = [place], 1538) [address]: Incinerator Plant General Supervisor/Techni daisy ID = [id number] for Wi lson, Aviance RAD, CHEST, 1 VIEW, NON [id number] 15:32:00Reason for exam:->evaluate for edema, effusions, currently on [id number] this be performed [facility] the [facility]?->YesCH[facility] : 1940 Sex: FFINALREPORT Exam: RAD, CHEST, 1 VIEW, NON DEPTDate: 01/23/2022 3:32 PM Indication: Shortness of breath Comparison: CXR 07/05/2020 FINDINGS: Lines/Tubes:None Lungs:The lungs are well inflated. No focal consolidation or airspace edema. Pleura:No pleural effusion. No pneumothorax. Heart/Medi astinum:The cardiomediastinal silhouette is normal in size and contour. Bones/Soft Tissues: No acuteosseous injury. Abdomen: No free air below the diaphragm. IMPRESSION:No focal pneumonia or pulmonaryedema. Signed: [place] Bey MDReport Verified Date/Time: 01/23/2022 15:32:45 B-TYPE NATRIURETIC FACTOR (BNP)2022-01-23 14:27:37 Test Item Value Reference Range Interpretation Comments B-TYPE NATRIURETIC PEPTIDE (AlverixRAULITO) 130 pg/mL 0-100 H (test code = 700) Incinerator Plant General Supervisor ID - ADMINPOCT-GLUCOSE [id number] 12:07:10 Test Item Value Reference Range Interpretation Comments POC-GLUCOSE METER 260 mg/dL 70-110 H : TESTED A T [facility] 6720 (Pumodo) (test code = [place], 1538) [address]: Incinerator Plant General Supervisor/Techni daisy ID = [id number] for Lamberto Puente HIV-1 ANTIGEN WITH HIV-1/2 [id number] 11:29:35 Test Item Value Reference Range Interpretation Comments HIV-1 ANTIGEN WITH HIV 1\\T\\2 Nonreactive Nonreactive ANTIBODY (2) (Pumodo) (test code = 2586) Incinerator Plant General Supervisor ID - ADMINHEMOGLOBIN [id number] 10:24:05 Test Item Value Reference Range Interpretation Comments HEMOGLOBIN A1C 10.4 % See_Comment H [Automated m essage] ELECTROPHORESIS (RAULITO) The system which (test code = 3811) generated this result transmitted ref erence range: <=5.6%. The reference range was not used to int erpret this result as normal/abnormal . "The A1c is measured using a NGS-certified method. HbA1c value equal to or greater than 6.5% as thediagnosis cutoff for diabetes. An HbA1c value of 5.7- 6.4% indicates increased risk for diabetes (prediabetes)."Incinerator Plant General Supervisor ID - ADMPOCT- GLUCOSE [id number] 09:48:11 Test Item Value Reference Range Interpretation Comments POC-GLUCOSE METER 370 mg/dL 70-110 H : TESTED A T [facility] 6720 ([facility]) (test code = [facility], 1538) [address]: Incinerator Plant General Supervisor/Techni daisy ID = [id number] for Sumeet leungrománLamberto POCT-GLUCOSE [id number] 09:48:10 Test Item Value Reference Range Interpretation Comments POC-GLUCOSE METER 335 mg/dL 70-110 H : Notified RN/MD: ([facility]) (test code = TESTED AT [facility] 6720 1538) [facility], [address]: Incinerator Plant General Supervisor/Techni daisy ID = [id number] for Ra baker Pamela LIPID [id number] 08:46:58 Test Item Value Reference Range Interpretation Comments TRIGLYCERIDES ([facility]) 316 mg/dL Speci men slightly (test code = 540) hemolyzed CHOLESTEROL ([facility]) 80 mg/dL Specime n slightly (test code = 631) hemolyzed HDL CHOLESTEROL ([facility]) 16 mg/dL (test code = 976) LDL CHOLESTEROL 1 mg/dL CALCULATED ([facility]) (test code = 633) Triglyceride Reference Range: Low Risk <150 Borderline 150-199 High Risk 200- 499 Very High Risk >=500Cholesterol Reference Range: Low Risk <200 Borderline 200-239 High Risk >240HDL Cholesterol Reference Range: Low Risk >=60 High Risk <40LDL Cholesterol Reference Range: Optimal <100 Near Optimal 100-129 Borderline 130-159 High 160-189 Very High >=190 Incinerator Plant General Supervisor ID - SARA WMR, MRA, BRAIN, WITHOUT [id number] 08:25:00Reason for exam:- >Ischemic Stroke Evaluation, dysarthria [facility] 1940 Sex: FFINALREPORT MR, MRA, BRAIN, WITHOUT CONTRAST, MR, MRA, NECK, WITHOUT IV CONTRAST INDICATION: Neuro deficit, acute, stroke suspectedIschemic Stroke Evaluation, dysarthria TECHNIQUE: Multiplanar, multisequence MR images of the brain. 3-D time of flight MRA of the cranial and cervical circulation. 2-D time of flight MRA of the neck. 3D MIP angiographic post-processing was performed. Stenosis evaluation utilized NASCET criteria. COMPARISON: Noncontrast brain CT of the same date FINDINGS:MRA BRAIN:Internal carotid arteries: Normal flow related enhancement without flow-limiting stenosisMiddle cerebral arteries: Normal flow related enhancement within the bilateral MCA M1-M2 segments Anterior cerebral arteries: Normal flow-related enhancement within the bilateral JL A1- A2 segments without flow limiting stenosisBasilar system: Normal flow-related enhancement within the bilateral V4 segments and the basilar artery Posterior cerebral arteries: Normal flow-related enhancement within the bilateral SALESPERSON CORSETS P1- P2 segments Additional findings: None. MRA NECK:Common carotid arteries: Unremarkable. Bifurcations: No flow-limiting stenosis. Cervical internal carotid arteries: No flow limiting stenosis.Vertebral arteries: Origins are not well- seen. No flow limiting stenosis within the visualized cervical vertebral arterial segments. Limited assessment of the V3 segment secondary to noncontrast technique. IMPRESSION: No proximal vessel occlusion within the head or neck. Signed: Siena Pires MDReport Verified Date/Time: 01/23/2022 08:25:45 MR, MRA, NECK, WITHOUT IV [id number] 08:25:00Reason for exam:->Ischemic Stroke EvaluationCH[facility] : 1940 Sex: FFINALREPORT MR, MRA, BRAIN, WITHOUT CONTRAST, MR, MRA, NECK, WITHOUT IV CONTRAST INDICATION: Neuro deficit, acute, stroke suspectedIschemic Stroke Evaluation, dysarthria TECHNIQUE: Multiplanar, multisequence MR images of the brain. 3-D time of flight MRA of the cranial and cervical circulation. 2-D time of flight MRA of the neck. 3D MIP angiographic post-processing was performed. Stenosis evaluation utilized NASCET criteria. COMPARISON: Noncontrast brain CT of the same date FINDINGS:MRA BRAIN:Internal carotid arteries: Normal flow related enhancement without flow-limiting stenosisMiddle cerebral arteries: Normal flow related enhancement within the bilateral MCA M1-M2 segments Anterior cerebral arteries: Normal flow-related enhancement within the bilateral JL A1- A2 segments without flow limiting stenosisBasilar system: Normal flow-related enhancement within the bilateral V4 segments and the basilar artery Posterior cerebral arteries: Normal flow-related enhancement within the bilateral SALESPERSON CORSETS P1- P2 segments Additional findings: None. MRA NECK:Common carotid arteries: Unremarkable. Bifurcations: No flow-limiting stenosis. Cervical internal carotid arteries: No flow limiting stenosis.Vertebral arteries: Origins are not well- seen. No flow limiting stenosis within the visualized cervical vertebral arterial segments. Limited assessment of the V3 segment secondary to noncontrast technique. IMPRESSION: No proximal vessel occlusion within the head or neck. Signed: Siena Pires Verified Date/Time: 01/23/2022 08:25:45 MR, BRAIN, WITHOUT [id number] 08:20:00Reason for exam:->Ischemic Stroke EvaluationMISS[facility]ARKName: [facility] : 1940 Sex: FFINALREPORT MR, BRAIN, WITHOUT CONTRAST INDICATION: Neuro deficit, acute, stroke suspectedIschemic Stroke Evaluation TECHNIQUE: Multiplanar, multisequence MR imaging of the brain was obtained. COMPARISON: None FINDINGS:Brain parenchyma is normal in morphology. Midline structures are normally developed. No restricted diffusion to suggest recent ischemic insult. No abnormal susceptibility. Scattered T2/FLAIR hyperintense foci within the periventricular and subcortical white matter are nonspecific, however, statistically represent chronic microvascular ischemic changes. No hydrocephalus. Orbits are within normal limits. No obstructive paranasal sinus disease. IMPRESSION: No acute intracranial findings Signed: Siena Pires Verified Date/Time: 01/23/2022 08:20:35 VITAMIN [id number] 07:14:04 Test Item Value Reference Range Interpretation Comments VITAMIN B12 (BEAKER) (test code = 909 pg/mL 213-816 H 774) Incinerator Plant General Supervisor ID - BHUMIKA [id number] 07:02:19 Test Item Value Reference Range Interpretation Comments MAGNESIUM (BEAKER) 2.1 mg/dL 1.6-2.6 Specimen slightly (test code = 627) hemolyzed Incinerator Plant General Supervisor ID Manny BAI WBASIC METABOLIC [id number] 07:02:19 Test Item Value Reference Range Interpretation Comments SODIUM (BEAKER) 136 meq/L 136-145 (test code = 381) POTASSIUM 5.2 meq/L 3.5-5.1 H Specimen slight ly (BEAKER) (test hemolyzed code = 379) CHLORIDE (BEAKER) 104 meq/L 98-107 (test code = 382) CO2 (BEAKER) 25 meq/L 22-29 (test code = 355) BLOOD UREA 26 mg/dL 7-21 H NITROGEN (BEAKER) (test code = 354) CREATININE 1.69 mg/dL 0.57-1.25 H Specimen slight ly (BEAKER) (test hemolyzed code = 358) GLUCOSE RANDOM 395 mg/dL 70-105 H (BEAKER) (test code = 652) CALCIUM (BEAKER) 8.8 mg/dL 8.4-10.2 (test code = 697) EGFR (BEAKER) 30 Interpretatio n of eGFR (test code = mL/min/1.73 values Stage De scription 1092) sq m Result G1 Wendy l or high >=90 G2 Mildly decreased 60-89 G3a Mildl y to moderately 45-5 9 G3b Moderately to s everely 30-44 G4 Severl y decreased 15-29 G5 Kidney failure <15Reported eGF R is based on the CKD-EPI 2020 equation that d oes not use a race coefficientEsti mated GFR is not as accur ate as Creatinine Malika hernández in predicting glom erular filtration rate . Estimated GFR is not appl icable for dialysis patien ts Incinerator Plant General Supervisor ID Manny BAI WCBC (HEMOGRAM ONLY)2022-01-23 06:11:42 Test Item Value Reference Range Interpretation Comments WHITE BLOOD CELL COUNT (BEAKER) 7.2 K/ L 3.5-10.5 (test code = 775) RED BLOOD CELL COUNT (BEAKER) 3.25 M/ L 3.93-5.22 L (test code = 761) HEMOGLOBIN (BEAKER) (test code = 9.1 GM/DL 11.2-15.7 L 410) HEMATOCRIT (BEAKER) (test code = 29.1 % 34.1-44.9 L 411) MEAN CORPUSCULAR VOLUME (BEAKER) 90 fL 79-95 (test code = 753) MEAN CORPUSCULAR HEMOGLOBIN 28.0 pg 25.6-32.2 (BEAKER) (test code = 751) MEAN CORPUSCULAR HEMOGLOBIN CONC 31.3 GM/DL 32.2-35.5 L (BEAKER) (test code = 752) RED CELL DISTRIBUTION WIDTH 14.1 % 11.7-14.4 (BEAKER) (test code = 412) PLATELET COUNT (BEAKER) (test 186 K/CU MM 150-450 code = 756) MEAN PLATELET VOLUME (BEAKER) 10.5 fL 9.4-12.3 (test code = 754) NUCLEATED RED BLOOD CELLS 0 /100 WBC 0-0 (BEAKER) (test code = 413) Urea Nitrogen, random [id number] 03:04:34 Test Item Value Reference Range Interpretation Comments Urea Nitrogen, Ur 325 mg/dL (test code = 3095-7) TORO (test code = Reference Range: No TROO) NormalsOperator ID - ADMIN [facility] [id number] 03:04:34 Test Item Value Reference Range Interpretation Comments Sodium Urine (test 81 meq/L code = 2955-3) TORO (test code = Reference Range: No TORO) NormalsOperator ID - ADMIN [facility] HospitalODIUM, RANDOM [id number] 03:04:34 Test Item Value Reference Range Interpretation Comments SODIUM URINE (BEAKER) (test code = 81 meq/L 243) Reference Range: No NormalsOperator ID - ADMINUREA NITROGEN, RANDOM URINE 2022-01-23 03:04:34 Test Item Value Reference Range Interpretation Comments UREA NITROGEN URINE (BEAKER) (test 325 mg/dL code = 538) Reference Range: No NormalsOperator ID - ADMINCreatinine, random [id number] 03:04:33 Test Item Value Reference Range Interpretation Comments Creatinine, Ur 41.0 mg/dL (test code = 2161-8) TORO (test code = Reference Range: No TORO) NormalsOperator ID - ADMIN [facility] CenterCREATININE, RANDOM [id number] 03:04:33 Test Item Value Reference Range Interpretation Comments CREATININE URINE (BEAKER) (test 41.0 mg/dL code = 375) Reference Range: No NormalsOperator ID - ADMINPOCT-GLUCOSE [id number] 00:09:08 Test Item Value Reference Range Interpretation Comments POC-GLUCOSE METER 408 mg/dL 70-110 HH : Notified RN/MD: (MASTER) (test code = TESTED AT [facility] 6720 1538) KEYSHA [facility], [address]: Incinerator Plant General Supervisor/Techni daisy ID = [id number] for Ra Pamela baker U/S, RENAL, [id number] 22:42:00Reason for exam:->acute kidney injury [facility] 1940 Sex: FFINALREPORT EXAM/TECHNIQUE: Retroperitoneal ultrasound. INDICATION: Acute kidney injury. COMPARISON: None. FINDINGS: Right kidney: The right kidney measures 11.8 x 6.0 x 6.0 cm. No hydronephrosis. Normal echotexture.Left kidney: The left kidney measures 10.7 x 6.5 x 6.2 cm. No hydronephrosis. Normal echotexture. Bladder: Unremarkable. Impression: No hydronephrosis. Signed: Kar Bernabe MDReport Verified Date/Time: 01/22/2022 22:42:12 Electronically signed by: KAR BERNABE MD on01/22/2022 10:42 PMSARS-CoV2/RT-PCR (Asymptomatic ONLY)2022-01-22 20:55:56 Test Item Value Reference Interpretation Comments Range SARS-COV2/RT-PCR Negative Negative The SARS-Co V-2 (test code = target nucleic 73930-2) acids are not detected in thi s specimen. Negat errol results do not preclude SARS-C oV-2 infection and should not be u sed as the sole bas is for patient management decisions. Nega tive results must be combined with clinical observations, patient history , and epidemiolog ical information. A false negative result may occu r if a specimen is improperly collected, transported or handled. This S ARS CoV-2 test is a rapid, real-dash e RT-PCR test intended for th e qualitative detection of nucleic acid fr om SARS-CoV-2 in a nasopharyngeal swab specimen colle clemente from individual s suspected of COVID-19 by the ir healthcare provider. OTRO (test code = This test has been TORO) authorized by FDA under an EUA for use by authorized laboratories. This test is only authorized for the duration of the declaration that circumstances exist justifying the authorization of emergency use of in vitro diagnostic tests for detection and/or diagnosis of COVID-19 under Section 564(b)(1) of the Federal Food, Drug and Cosmetic Act, 21 U.S.C. 360bbb-3(b)(1), unless the authorization is terminated or revoked sooner. Fact Sheet for Healthcare Providers: https://www.[employer]/Documents/Xp ert%20Xpress%20SAR S%20CoV-2/Fact%20S heets/302-3802%20S ARS-COV-2%20HEALTH CARE%20PROVIDERS%2 0FACT%20SHEET.pdf Fact Sheet for Healthcare Patients: https://www.[employer]/Documents/Xp ert%20Xpress%20SAR S%20CoV-2/Fact%20S heets/302-3801%20S ARS-COV-2%20PATIEN T%20FACT%20SHEET.p df Lab Interpretation Normal (test code = 74981-3) [facility]2022-01-22 20:55:56 Test Item Value Reference Range Interpretation Comments SARS-COV2/RT-PCR Negative Negative The SARS-Co V-2 target (test code = nucleic acids a re not 6927846) detected in thi s specimen. Negative result s do not preclude SARS-C oV-2 infection and s hould not be used as the harinder e basis for patient managem ent decisions. Nega tive results must be combine d with clinical observ ations, patient history , and epidemiological information. A false negativ e result may occur if a spec imen is improperly jenna ected, transported or handled. This SARS CoV-2 test is a rapid, real-time RT-PC R test intended for th e qualitative detection of nu cleic acid from SARS-CoV-2 in a nasopharyngeal swab specimen collected from individuals suspected of CO VID-19 by their healthcar e provider. This test has been authorized by FDA under an EUA for use by authorized laboratories. This test is only authorized for the duration of the declaration that circumstances exist justifying the authorization of emergency use of in vitro diagnostic tests for detection and/or diagnosis of COVID-19 under Section 564(b)(1) of the Federal Food, Drug and Cosmetic Act, 21 U.S.C. 360bbb-3(b)(1), unless the authorization is terminated or revoked sooner. Fact Sheet for Healthcare Providers: https://www.[employer]/Documents/Xpert%20Xpress%20SARS%20CoV-2/Fact%20Sheets/302-3802%06DUCT-HAZ-9%20 HEALTHCARE%20PROVIDERS%20FACT%20SHEET.pdf Fact Sheet for Healthcare Patients: https://www.[employer]/Documents/Xpert%20Xp ress%20SARS%20CoV-2/Fact%20Sheets/302-3801%45XODD-SIR-4%20PATIENT%20FACT%20SHEET .pdfUrinalysis w/Microscopic + Reflex to [id number] 15:58:03 Test Item Value Reference Range Interpretation Comments Color, UA (test code Yellow = 5778-6) Clarity, UA (test Hazy code = 5767-9) Specific [place], UA 1.012 1.001-1.035 (test code = 5811-5) pH, UA (test code = 6.0 5.0-8.0 5803-2) Protein, UA (test 30 mg/dL Negative A code = 38406-1) Glucose, UA (test Negative Negative code = 365) Ketones, UA (test Negative Negative code = 2514-8) Bilirubin, UA (test Negative Negative code = 03085-9) Blood, UA (test code Negative Negative = 87884-3) Nitrite, UA (test Negative Negative code = 5802-4) Leukocytes, UA (test Large Negative A code = 5799-2) Urobilinogen, UA 0.2 0.2-1.0 (test code = 41466-3) RBC, UA (test code = 1 See_Comment [Autom ated 37779-8) message] The system which generated this result transmit clemente reference range : /HPF. The reference range was not used to interpret this result as normal/abnormal . WBC, UA (test code = 176 See_Comment [Autom ated 5821-4) message] The system which generated this result transmit clemente reference range : /HPF. The reference range was not used to interpret this result as normal/abnormal . Squam Epithel, UA 1 See_Comment [Automate d (test code = 14039-3) messag e] The system which generated this result transmit clemente reference range : /HPF. The reference range was not used to interpret this result as normal/abnormal . Specimen Source (test code = 2795) TORO (test code = TORO) [employer] General Supervisor ID - [auto]Incinerator Plant General Supervisor ID - tech Lab Interpretation Abnormal (test code = 24154-0) [facility] [id number] 15:58:03 Test Item Value Reference Range Interpretation Comments COLOR (BEAKER) (test code = 470) Yellow CLARITY (BEAKER) (test code = 469) Hazy SPECIFIC GRAVITY UA (BEAKER) (test 1.012 1.001-1.035 code = 468) PH UA (BEAKER) (test code = 467) 6.0 5.0-8.0 PROTEIN UA (BEAKER) (test code = 30 mg/dL Negative A 464) GLUCOSE UA (BEAKER) (test code = Negative Negative 365) KETONES UA (BEAKER) (test code = Negative Negative 371) BILIRUBIN UA (BEAKER) (test code = Negative Negative 462) BLOOD UA (BEAKER) (test code = 461) Negative Negative NITRITE UA (BEAKER) (test code = Negative Negative 465) LEUKOCYTE ESTERASE UA (BEAKER) (test Large Negative A code = 466) UROBILINOGEN UA (BEAKER) (test code 0.2 0.2-1.0 = 463) RBC UA (BEAKER) (test code = 519) 1 /HPF WBC UA (BEAKER) (test code = 520) 176 /HPF SQUAMOUS EPITHELIAL (BEAKER) (test 1 /HPF code = 516) SOURCE(BEAKER) (test code = 2795) [employer] General Supervisor ID - [auto]In[employer] Plant General Supervisor ID - techCOMPREHENSIVE METABOLIC [id number] 15:35:37 Test Item Value Reference Range Interpretation Comments TOTAL PROTEIN 6.4 gm/dL 6.0-8.3 (BEAKER) (test code = 770) ALBUMIN (BEAKER) 3.3 g/dL 3.5-5.0 L (test code = 1145) ALKALINE 86 U/L 40-150 PHOSPHATASE (BEAKER) (test code = 346) BILIRUBIN TOTAL 0.4 mg/dL 0.2-1.2 (BEAKER) (test code = 377) SODIUM (BEAKER) 136 meq/L 136-145 (test code = 381) POTASSIUM (BEAKER) 4.5 meq/L 3.5-5.1 (test code = 379) CHLORIDE (BEAKER) 102 meq/L 98-107 (test code = 382) CO2 (BEAKER) (test 24 meq/L 22-29 code = 355) BLOOD UREA 34 mg/dL 7-21 H NITROGEN (BEAKER) (test code = 354) CREATININE 1.80 mg/dL 0.57-1.25 H (BEAKER) (test code = 358) GLUCOSE RANDOM 182 mg/dL 70-105 H (BEAKER) (test code = 652) CALCIUM (BEAKER) 8.8 mg/dL 8.4-10.2 (test code = 697) AST (SGOT) 14 U/L 5-34 (BEAKER) (test code = 353) ALT (SGPT) 14 U/L 6-55 (BEAKER) (test code = 347) EGFR (BEAKER) 28 Interpretatio n of eGFR (test code = 1092) mL/min/1.[address] age Description sq m Result G1 Wendy l or high >=90 G2 Mildly decreased 60-89 G3a Mildl y to moderately 45-5 9 G3b Moderately to s everely 30-44 G4 Severl y decreased 15-29 G5 Kidney failure <15Reported eGF R is based on the CKD-EPI 1 equation that d oes not use a race coefficientEsti mated GFR is not as accur ate as Creatinine Malika hernández in predicting glom erular filtration rate . Estimated GFR is not appl icable for dialysis patien ts [employer] General Supervisor ID - [id number] 15:31:08 Test Item Value Reference Range Interpretation Comments MAGNESIUM (BEAKER) (test code = 2.0 mg/dL 1.6-2.6 627) [employer] General Supervisor ID - BSCBC W/PLT COUNT & AUTO [id number] 15:07:18 Test Item Value Reference Range Interpretation Comments WHITE BLOOD CELL COUNT (BEAKER) 9.3 K/ L 3.5-10.5 (test code = 775) RED BLOOD CELL COUNT (BEAKER) 3.52 M/ L 3.93-5.22 L (test code = 761) HEMOGLOBIN (BEAKER) (test code = 9.9 GM/DL 11.2-15.7 L 410) HEMATOCRIT (BEAKER) (test code = 31.5 % 34.1-44.9 L 411) MEAN CORPUSCULAR VOLUME (BEAKER) 90 fL 79-95 (test code = 753) MEAN CORPUSCULAR HEMOGLOBIN 28.1 pg 25.6-32.2 (BEAKER) (test code = 751) MEAN CORPUSCULAR HEMOGLOBIN CONC 31.4 GM/DL 32.2-35.5 L (BEAKER) (test code = 752) RED CELL DISTRIBUTION WIDTH 14.2 % 11.7-14.4 (BEAKER) (test code = 412) PLATELET COUNT (BEAKER) (test 202 K/CU MM 150-450 code = 756) MEAN PLATELET VOLUME (BEAKER) 10.1 fL 9.4-12.3 (test code = 754) NUCLEATED RED BLOOD CELLS 0 /100 WBC 0-0 (BEAKER) (test code = 413) NEUTROPHILS RELATIVE PERCENT 67 % (BEAKER) (test code = 429) LYMPHOCYTES RELATIVE PERCENT 21 % (BEAKER) (test code = 430) MONOCYTES RELATIVE PERCENT 10 % (BEAKER) (test code = 431) EOSINOPHILS RELATIVE PERCENT 2 % (BEAKER) (test code = 432) BASOPHILS RELATIVE PERCENT 0 % (BEAKER) (test code = 437) NEUTROPHILS ABSOLUTE COUNT 6.20 K/ L 1.56-6.13 H (BEAKER) (test code = 670) LYMPHOCYTES ABSOLUTE COUNT 1.96 K/ L 1.18-3.74 (BEAKER) (test code = 414) MONOCYTES ABSOLUTE COUNT (BEAKER) 0.90 K/ L 0.24-0.36 H (test code = 415) EOSINOPHILS ABSOLUTE COUNT 0.16 K/ L 0.04-0.36 (BEAKER) (test code = 416) BASOPHILS ABSOLUTE COUNT (BEAKER) 0.04 K/ L 0.01-0.08 (test code = 417) IMMATURE GRANULOCYTES-RELATIVE 0.30 % 0.00-1.00 PERCENT (BEAKER) (test code = 2801) CT, CTANGIO [id number] 14:59:00Reason for exam:->Symptoms onset less than 6 hours and NIHSS 6 or greater [facility] 1940 Sex: FFINALREPORT CLINICAL HISTORY: Neuro deficit, acute, stroke suspectedSymptoms onset less than 6 hours and NIHSS 6 or greater TECHNIQUE: Contiguous contrast- enhanced axial images through the neck followed by axial images through the head with coronal and sagittal reformations to assess the arterial circulation. 3-D reconstructions were performed using a volume rendered technique separately on a workstation. CT perfusion was performed with data post processing on a workstation. This exam was performed according to the departmental dose optimization program which includes automated exposure control, adjustment of the mA and/or kV according to the patient size, and/or use of an iterative reconstruction technique. COMPARISON: Head CT 01/22/2022 FINDINGS: CT PerfusionCore infarct: Using the threshold of cerebral blood flow less than 30%, there is no evidence for acute ischemic core infarct. Total hypoperfusion: Using the threshold of Tmax greater than 6 seconds, there is no evidence for territorial hypoperfusion. Penumbra: The mismatch volume is 0 cc. The mismatch ratio is N/A. CT Angiogram There is no evidence for a [place] large vessel occlusion. There is no critical branchvessel stenosis or aneurysm. The major intradural venous sinuses are patent. There is no hemodynamically significant stenosis in either cervical internal carotid artery by NASCET criteria. The vertebral arteries in the neck are patent including their origins. There are dorsal spondylitic changes in the cervical spine. There are scattered subcentimeter lymph nodes in the neck. The visualized lung apices are clear. 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 IMPRESSION: No CT perfusion evidence for acute infarct or territorial hypoperfusion. No evidence for a [place] large vessel occlusion. No evidence of hemodynamically significant stenosis in the cervical carotid or vertebral arteries by NASCET criteria. Signed: Tima Nunn MDReport Verified Date/Time: 01/22/2022 14:59:39 CT, CAROTID, [id number] 14:59:00 Reason for exam:->Symptoms onset less than 6 hours and NIHSS 6 or greater [facility] : 1940 Sex: FFINALREPORT CLINICAL HISTORY: Neuro deficit, acute, stroke suspectedSymptoms onset less than 6 hours and NIHSS 6 or greater TECHNIQUE: Contiguous contrast- enhanced axial images through the neck followed by axial images through the head with coronal and sagittal reformations to assess the arterial circulation. 3-D reconstructions were performed using a volume rendered technique separately on a workstation. CT perfusion was performed with data post processing on a workstation. This exam was performed according to the departmental dose optimization program which includes automated exposure control, adjustment of the mA and/or kV according to the patient size, and/or use of an iterative reconstruction technique. COMPARISON: Head CT 01/22/2022 FINDINGS: CT PerfusionCore infarct: Using the threshold of cerebral blood flow less than 30%, there is no evidence for acute ischemic core infarct. Total hypoperfusion: Using the threshold of Tmax greater than 6 seconds, there is no evidence for territorial hypoperfusion. Penumbra: The mismatch volume is 0 cc. The mismatch ratio is N/A. CT Angiogram There is no evidence for a [place] large vessel occlusion. There is no critical branchvessel stenosis or aneurysm. The major intradural venous sinuses are patent. There is no hemodynamically significant stenosis in either cervical internal carotid artery by NASCET criteria. The vertebral arteries in the neck are patent including their origins. There are dorsal spondylitic changes in the cervical spine. There are scattered subcentimeter lymph nodes in the neck. The visualized lung apices are clear. 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 IMPRESSION: No CT perfusion evidence for acute infarct or territorial hypoperfusion. No evidence for a [place] large vessel occlusion. No evidence of hemodynamically significant stenosis in the cervical carotid or vertebral arteries by NASCET criteria. Signed: Tima Nunn MDReport Verified Date/Time: 01/22/2022 14:59:39 [facility] 2022-01-22 14:59:00Reason for exam:->Symptom onset less than 6 hours and NIHSS 6 or greater [facility] 1940 Sex: FFINALREPORT CLINICAL HISTORY: Neuro deficit, acute, stroke suspectedSymptoms onset less than 6 hours and NIHSS 6 or greater TECHNIQUE: Contiguous contrast- enhanced axial images through the neck followed by axial images through the head with coronal and sagittal reformations to assess the arterial circulation. 3-D reconstructions were performed using a volume rendered technique separately on a workstation. CT perfusion was performed with data post processing on a workstation. This exam was performed according to the departmental dose optimization program which includes automated exposure control, adjustment of the mA and/or kV according to the patient size, and/or use of an iterative reconstruction technique. COMPARISON: Head CT 01/22/2022 FINDINGS: CT PerfusionCore infarct: Using the threshold of cerebral blood flow less than 30%, there is no evidence for acute ischemic core infarct. Total hypoperfusion: Using the threshold of Tmax greater than 6 seconds, there is no evidence for territorial hypoperfusion. Penumbra: The mismatch volume is 0 cc. The mismatch ratio is N/A. CT Angiogram There is no evidence for a [place] large vessel occlusion. There is no critical branchvessel stenosis or aneurysm. The major intradural venous sinuses are patent. There is no hemodynamically significant stenosis in either cervical internal carotid artery by NASCET criteria. The vertebral arteries in the neck are patent including their origins. There are dorsal spondylitic changes in the cervical spine. There are scattered subcentimeter lymph nodes in the neck. The visualized lung apices are clear. 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 IMPRESSION: No CT perfusion evidence for acute infarct or territorial hypoperfusion. No evidence for a [place] large vessel occlusion. No evidence of hemodynamically significant stenosis in the cervical carotid or vertebral arteries by NASCET criteria. Signed: Tima Nunn MDReport Verified Date/Time: 01/22/2022 14:59:39 [facility], BRAIN/STROKE [id number] 13:51:00[facility] : 1940 Sex: FFINALREPORT CT, BRAIN/STROKE PROTOCOL CLINICAL INDICATION: Neuro deficit, acute, stroke suspected COMPARISON: None TECHNIQUE: Noncontrast axial CT imaging of the brain and skull. DOSE REDUCTION: Dose modulation, iterative reconstruction, and/or weight-based adjustment of the mA/kV was utilized to reduce the radiation dose to as low as reasonably achievable. FINDINGS:No intracranial hemorrhage, midline shift or mass effect. Dense mineralization of the basal ganglia. Scattered foci of hypoattenuation are present throughout the periventricular and subcortical white matter, and, although nonspecific by imaging, statistically represent mild chronic microvascular ischemic changes in thisage group. No hydrocephalus. Orbits are within normal limits. Prior right vitreous injection. No obstructive paranasal sinus disease. IMPRESSION:1.No definite CT evidence of infarct.2.No acute intracranial hemorrhage.3.No acute intracranial findings If there is persistent clinical concern for intracranial pathology, MR examination is recommended for further characterization. Signed: Siena Pires Verified Date/Time: 01/22/2022 13:51:06 Microalbumin/Creat Ratio, Random [id number] 00:00:00 Test Item Value Reference Range Interpretation Comments Creatinine, Urine (test code = 2161-8) 62.3 Not Estab. Albumin, Urine (test code = 02625-1) 472.6 Not Estab. Alb/Creat Ratio (test code = 97312-5) 759 0-29 POCT-GLUCOSE [id number] 11:31:00 Test Item Value Reference Range Interpretation Comments POC-GLUCOSE METER 193 mg/dL 70-110 H : TESTED A T [facility] 6720 (BEAKER) (test code = [facility], 1538) [address]: Incinerator Plant General Supervisor/Techni daisy ID = [id number] for CR UZ ARPAN, WINTERILI A POCT-GLUCOSE [id number] 08:31:00 Test Item Value Reference Range Interpretation Comments POC-GLUCOSE METER 230 mg/dL 70-110 H : TESTED A T [facility] 6720 (BEAKER) (test code = [facility], 1538) [address]: Incinerator Plant General Supervisor/Techni daisy ID = [id number] for CR UZ ARPAN, ODILI A BASIC METABOLIC [id number] 05:55:00 Test Item Value Reference Range Interpretation [...] 697) EGFR (BEAKER) (test 60 mL/min/1.73 ESTIMA CLEMENTE GFR IS code = 1092) sq m NOT ACCURATE CREATININE CLEARANCE IN PREDICTING GLOMERULAR FILTRATION RATE . ESTIMATED GFR I S NOT APPLICABLE FOR DIALYSIS PATIEN TS. Incinerator Plant General Supervisor ID - PETER MCBC W/PLT COUNT & AUTO [id number] 05:31:00 Test Item Value Reference Range Interpretation [...] PERCENT (BEAKER) (test code = 2801) POCT-GLUCOSE [id number] 21:21:00 Test Item Value Reference Range Interpretation Comments POC-GLUCOSE METER 137 mg/dL 70-110 H : Notified RN/MD: (MASTER) (test code = TESTED AT [place] [address] 1538) [facility], [address]: Incinerator Plant General Supervisor/Techni daisy ID = [id number] for ONDINA BROWNLEE [id number] 17:06:00 Test Item Value Reference Range Interpretation Comments ACTIVATED CLOTTING TIME 164 sec : 74 -137 seconds, (BEAKER) (test code = Baseli ne: TESTED AT 441) [address], [address]: Incinerator Plant General Supervisor/Techni daisy ID = [id number] for FE RRARI JACKIE, CLAUDE [id number] 16:53:00 Test Item Value Reference Range Interpretation Comments ACTIVATED CLOTTING TIME 175 sec : 74 -137 seconds, (BEAKER) (test code = Baseli ne: TESTED AT 441) [address], [address]: [employer] General Supervisor/Techni daisy ID = [id number] for FE RRASHWIN KUMARA, CLAUDE [id number] 16:53:00 Test Item Value Reference Range Interpretation Comments ACTIVATED CLOTTING TIME 208 sec : 74 -137 seconds, (BEAKER) (test code = Baseli ne: TESTED AT 441) [address], [address]: Incinerator Plant General Supervisor/Techni daisy ID = [id number] for FE RRARI JACKIE, CLAUDE [id number] 16:06:00 Test Item Value Reference Range Interpretation Comments ACTIVATED CLOTTING TIME 296 sec : 74 -137 seconds, (BEAKER) (test code = Baseli ne: TESTED AT 441) [address], [address]: Inciner[employer] Plant General Supervisor/Techni daisy ID = [id number] for FE RRARI JACKIE, CLAUDE POCT-GLUCOSE [id number] 12:21:00 Test Item Value Reference Range Interpretation Comments POC-GLUCOSE METER 127 mg/dL 70-110 H : TESTED A T [facility] 6720 (BEAKER) (test code = [facility], 1538) [address]: Incinerator Plant General Supervisor/Techni daisy ID = [id number] for Constance David POCT-GLUCOSE [id number] 08:51:00 Test Item Value Reference Range Interpretation Comments POC-GLUCOSE METER 163 mg/dL 70-110 H : TESTED A T [facility] 6720 (BEAKER) (test code = [facility] [place], 1538) [address]: Incinerator Plant General Supervisor/Techni daisy ID = [id number] for Constance David BASIC METABOLIC [id number] 06:38:00 Test Item Value Reference Range Interpretation [...] 697) EGFR (BEAKER) (test 64 mL/min/1.73 ESTIMA CLEMENTE GFR IS code = 1092) sq m NOT ACCURATE CREATININE CLEARANCE IN PREDICTING GLOMERULAR FILTRATION RATE . ESTIMATED GFR I S NOT APPLICABLE FOR DIALYSIS PATIEN TS. Incinerator Plant General Supervisor ID - BHUMIKA WCBC W/PLT COUNT & AUTO [id number] 05:45:00 Test Item Value Reference Range Interpretation [...] PERCENT (BEAKER) (test code = 2801) POCT-GLUCOSE [id number] 22:11:00 Test Item Value Reference Range Interpretation Comments POC-GLUCOSE METER 210 mg/dL 70-110 H : TESTED A T [facility] 6720 (BEAKER) (test code = [facility], 153) [address]: Incinerator Plant General Supervisor/Techni daisy ID = [id number] for Balaji mccord Gertrude POCT-GLUCOSE [id number] 18:24:00 Test Item Value Reference Range Interpretation Comments POC-GLUCOSE METER 157 mg/dL 70-110 H : TESTED A T [facility] 6720 (BEAKER) (test code = [facility], 1538) [address]: Incinerator Plant General Supervisor/Techni daisy ID = [id number] for Wanda Wakefield POCT-GLUCOSE [id number] 12:10:00 Test Item Value Reference Range Interpretation Comments POC-GLUCOSE METER 146 mg/dL 70-110 H : TESTED A T [facility] 6720 (BEAKER) (test code = [facility], 1538) [address]: Incinerator Plant General Supervisor/Techni daisy ID = [id number] for Wanda Wakefield POCT-GLUCOSE [id number] 08:39:00 Test Item Value Reference Range Interpretation Comments POC-GLUCOSE METER 113 mg/dL 70-110 H : TESTED A T [facility] 6720 (BEAKER) (test code = [facility], 1538) [address]: Incinerator Plant General Supervisor/Techni daisy ID = [id number] for Wanda Wakefield BASIC METABOLIC [id number] 06:06:00 Test Item Value Reference Range Interpretation [...] 697) EGFR (BEAKER) (test 68 mL/min/1.73 ESTIMA CLEMENTE GFR IS code = 1092) sq m NOT ACCURATE CREATININE CLEARANCE IN PREDICTING GLOMERULAR FILTRATION RATE . ESTIMATED GFR I S NOT APPLICABLE FOR DIALYSIS PATIEN TS. Incinerator Plant General Supervisor ID - PIAYA LCBC W/PLT COUNT & AUTO [id number] 05:24:00 Test Item Value Reference Range Interpretation [...] PERCENT (BEAKER) (test code = 2801) POCT-GLUCOSE [id number] 21:49:00 Test Item Value Reference Range Interpretation Comments POC-GLUCOSE METER 158 mg/dL 70-110 H : TESTED A T [facility] 6720 (BEAKER) (test code = [place], 1538) [address]: Incinerator Plant General Supervisor/Techni daisy ID = [id number] for Manuel Marcelino POCT-GLUCOSE [id number] 18:10:00 Test Item Value Reference Range Interpretation Comments POC-GLUCOSE METER 152 mg/dL 70-110 H : TESTED A T [facility] 6720 (BEAKER) (test code = [facility], 1538) [address]: Incinerator Plant General Supervisor/Techni daisy ID = [id number] for IgConstance alvarenga basim POCT-GLUCOSE [id number] 12:52:00 Test Item Value Reference Range Interpretation Comments POC-GLUCOSE METER 149 mg/dL 70-110 H : TESTED A T [facility] 6720 (BEAKER) (test code = [facility], 1538) [address]: Incinerator Plant General Supervisor/Techni daisy ID = [id number] for IgConstance alvarenga basim POCT-GLUCOSE [id number] 09:18:00 Test Item Value Reference Range Interpretation Comments POC-GLUCOSE METER 141 mg/dL 70-110 H : TESTED A T [facility] 6720 (BEAKER) (test code = [facility], 1538) [address]: Incinerator Plant General Supervisor/Techni daisy ID = [id number] for IgbalajobiConstance basim BASIC METABOLIC [id number] 07:12:00 Test Item Value Reference Range Interpretation [...] 697) EGFR (BEAKER) (test 60 mL/min/1.73 ESTIMA CLEMENTE GFR IS code = 1092) sq m NOT ACCURATE CREATININE CLEARANCE IN PREDICTING GLOMERULAR FILTRATION RATE . ESTIMATED GFR I S NOT APPLICABLE FOR DIALYSIS PATIEN TS. Incinerator Plant General Supervisor ID - DBCBC W/PLT COUNT & AUTO [id number] 06:50:00 Test Item Value Reference Range Interpretation [...] PERCENT (BEAKER) (test code = 2801) POCT-GLUCOSE [id number] 23:42:00 Test Item Value Reference Range Interpretation Comments POC-GLUCOSE METER 245 mg/dL 70-110 H : TESTED A T [facility] 6720 ([facility]) (test code = [facility], 1538) 82502: Incinerator Plant General Supervisor/Techni daisy ID = [id number] for Manuel Marcelino POCT-GLUCOSE [id number] 17:40:00 Test Item Value Reference Range Interpretation Comments POC-GLUCOSE METER 225 mg/dL 70-110 H : TESTED A T [facility] 6720 ([facility]) (test code = [facility], [facility]8) 39391: Incinerator Plant General Supervisor/Techni daisy ID = [id number] for Igbalajobi, She basim POCT-GLUCOSE [id number] 13:07:00 Test Item Value Reference Range Interpretation Comments POC-GLUCOSE METER 224 mg/dL 70-110 H : TESTED A T [facility] 6720 ([facility]) (test code = [facility], 1538) 56689: Incinerator Plant General Supervisor/Techni daisy ID = [id number] for Igbalajobi, She basim POCT-GLUCOSE [id number] 09:47:00 Test Item Value Reference Range Interpretation Comments POC-GLUCOSE METER 162 mg/dL 70-110 H : TESTED A T [facility] 6720 ([facility]) (test code = [facility], 1538) 97070: Incinerator Plant General Supervisor/Techni daisy ID = [id number] for Igbalajobi, She basim PLATELET AGGREGATION: FUNCTION [id number] 09:33:00 Test Item Value Reference Range Interpretation Comments [id number] Jw Garcia M.D. ([facility]) (test code = (electonic signature) 0011) PLATELET COUNT AGG 246 K/CU MM 150-450 (BEAKER) (test code = 9166) ADP (BEAKER) (test code 25 % 62-100 [...] may be falsely low with platelet counts<75,000/cu mm.Incinerator Plant General Supervisor ID- [id number] METABOLIC [id number] 04:41:00 Test Item Value Reference Range Interpretation [...] 697) EGFR (BEAKER) (test 65 mL/min/1.73 ESTIMA CLEMENTE GFR IS code = 1092) sq m NOT ACCURATE CREATININE CLEARANCE IN PREDICTING GLOMERULAR FILTRATION RATE . ESTIMATED GFR I S NOT APPLICABLE FOR DIALYSIS PATIEN TS. Incinerator Plant General Supervisor ID - EDASICBC W/PLT COUNT & AUTO [id number] 04:24:00 Test Item Value Reference Range Interpretation [...] PERCENT (BEAKER) (test code = 2801) POCT-GLUCOSE [id number] 21:48:00 Test Item Value Reference Range Interpretation Comments POC-GLUCOSE METER 236 mg/dL 70-110 H : TESTED Yifan Linder [facility] 6720 (BEAKER) (test code = [place], 1538) 32597: Incinerator Plant General Supervisor/Techni daisy ID = [id number] for Cassie Abdi POCT-GLUCOSE [id number] 17:47:00 Test Item Value Reference Range Interpretation Comments POC-GLUCOSE METER 224 mg/dL 70-110 H : [facility] (test code = [facility] Seth [facility], 1538) 42845: Incinerator Plant General Supervisor/Techni daisy ID = [id number] for CAITLIN KENNEY POCT-GLUCOSE [id number] 13:24:00 Test Item Value Reference Range Interpretation Comments POC-GLUCOSE METER 245 mg/dL 70-110 H : TESTED A T [facility] 6720 (MASTER) (test code = [facility] Seth [facility], 1538) 28605: Incinerator Plant General Supervisor/Techni daisy ID = [id number] for Alanna Garces RAD, CHEST, 1 VIEW, NON [id number] 11:21:00Reason for exam:->preop evalShould this be performed at the bedside?->Yes [facility] 1940 Sex: FFINAL REPORT EXAMINATION: RAD, CHEST, 1 VIEW, NON DEPT. INDICATION: 79-year-old female, preoperative examination. COMPARISON: None. FINDINGS:Mild to moderate cardiomegaly. Pulmonary dasha and vasculature are within normal limits. No evidence of consolidation. No pleural effusion. No pneumothorax. Povg-wa-zzbsxoka degenerative changes of the bilateral shoulders. Visualized soft tissues are unremarkable. IMPRESSION:No evidence of pneumonia or other acute cardiopulmonary abnormality. Mild to moderate cardiomegaly. Signed: More Bullard Verified Date/Time: 07/05/2020 11:21:30 Reading Location: [address] Body Reading Room POCT-GLUCOSE [id number] 08:59:00 Test Item Value Reference Range Interpretation Comments POC-GLUCOSE METER 195 mg/dL 70-110 H : TESTED A T [facility] 6720 (BEAKER) (test code = [place], 1538) 88650: Incinerator Plant General Supervisor/Techni daisy ID = [id number] for CAITLIN KENNEY BASIC METABOLIC [id number] 06:20:00 Test Item Value Reference Range Interpretation [...] 697) EGFR (BEAKER) (test 62 mL/min/1.73 ESTIMA CLEMENTE GFR IS code = 1092) sq m NOT ACCURATE CREATININE CLEARANCE IN PREDICTING GLOMERULAR FILTRATION RATE . ESTIMATED GFR I S NOT APPLICABLE FOR DIALYSIS PATIEN TS. Incinerator Plant General Supervisor ID - EDASICBC W/PLT COUNT & AUTO [id number] 05:33:00 Test Item Value Reference Range Interpretation [...] PERCENT (BEAKER) (test code = 2801) POCT-GLUCOSE [id number] 20:52:00 Test Item Value Reference Range Interpretation Comments POC-GLUCOSE METER 292 mg/dL 70-110 H : TESTED A T [facility] 6720 (BEAKER) (test code = [facility] [place], 1538) 42214: Incinerator Plant General Supervisor/Techni daisy ID = [id number] for Cassie Abdi POCT-GLUCOSE [id number] 19:01:00 Test Item Value Reference Range Interpretation Comments POC-GLUCOSE METER 294 mg/dL 70-110 H : TESTED A T [facility] 6720 (BEAKER) (test code = [facility] Rolo [facility], 1538) 21477: Incinerator Plant General Supervisor/Techni daisy ID = [id number] for Constance David basim POCT-GLUCOSE [id number] 12:40:00 Test Item Value Reference Range Interpretation Comments POC-GLUCOSE METER 159 mg/dL 70-110 H : TESTED A T [facility] 6720 (BEAKER) (test code = [facility], 1538) 73237: Incinerator Plant General Supervisor/Techni daisy ID = [id number] for Constance David basim POCT-GLUCOSE [id number] 09:34:00 Test Item Value Reference Range Interpretation Comments POC-GLUCOSE METER 101 mg/dL 70-110 : TESTED A T [facility] 6720 (BEAKER) (test code = [facility], 1538) 23160: Incinerator Plant General Supervisor/Techni daisy ID = [id number] for Constance David basim HEMOGLOBIN [id number] 08:28:00 Test Item Value Reference Range Interpretation Comments HEMOGLOBIN A1C (BEAKER) (test code = 9.6 % 4.3-6.1 H 368) TSH/FREE T4 IF [id number] 06:08:00 Test Item Value Reference Range Interpretation Comments THYROID STIMULATING HORMONE 0.972 uIU/mL 0.350-4.940 (BEAKER) (test code = 772) Incinerator Plant General Supervisor ID - EDASIBASIC METABOLIC [id number] 05:44:00 Test Item Value Reference Range Interpretation [...] 697) EGFR (BEAKER) (test 60 mL/min/1.73 ESTIMA CLEMENTE GFR IS code = 1092) sq m NOT ACCURATE CREATININE CLEARANCE IN PREDICTING GLOMERULAR FILTRATION RATE . ESTIMATED GFR I S NOT APPLICABLE FOR DIALYSIS PATIEN TS. Incinerator Plant General Supervisor ID - EDASICBC W/PLT COUNT & AUTO [id number] 05:22:00 Test Item Value Reference Range Interpretation [...] PERCENT (BEAKER) (test code = 2801) SARS-COV2/RT-PCR ([facility])2020-07-04 03:49:00 Test Item Value Reference Range Interpretation Comments SARS-COV2/RT-PCR (test Negative Not Detected, Negative, code = 8358440) See external report for linked test SARS-COV-2 PERFORMING LAB [facility] (test code = 1691940) Negative result for this test determines that [...] the Hughes SARS-CoV-2 assay.Fact Sheet for Healthcare Providers:https://www.[employer]/jaylene/RT_SAR O-JmA-0_TZP_Fhvi_Fscal_03-098274.pdfFact Sheet for Healthcare Patients:https://www.[employer].hughes/s al/FH_VEWA-BfF-6_Mskqjma_Scal_Hwnun_PX_53-499762S5.pdfPerforming Laboratory:[facility] [place] [address] POCT-GLUCOSE [id number] 23:10:00 Test Item Value Reference Range Interpretation Comments POC-GLUCOSE METER 302 mg/dL 70-110 H : TESTED A T [facility] 6720 (BEAKER) (test code = [facility] Seth [facility], 1538) 30734: Incinerator Plant General Supervisor/Techni daisy ID = [id number] for Richard Marcelinodom BASIC METABOLIC [id number] 18:18:00 Test Item Value Reference Range Interpretation [...] 697) EGFR (BEAKER) (test 76 mL/min/1.73 ESTIMA CLEMENTE GFR IS code = 1092) sq m NOT ACCURATE CREATININE CLEARANCE IN PREDICTING GLOMERULAR FILTRATION RATE . ESTIMATED GFR I S NOT APPLICABLE FOR DIALYSIS PATIEN TS. Incinerator Plant General Supervisor ID - ADMINHEPATIC FUNCTION [id number] 18:18:00 Test Item Value Reference Range Interpretation [...] (test code = 28 U/L 6-55 347) Incinerator Plant General Supervisor ID - ADMINPROTHROMBIN [id number] 18:15:00 Test Item Value Reference Range Interpretation Comments PROTIME (BEAKER) 14.0 seconds 11.9-14.2 (test code = 759) INR (BEAKER) (test 1.11 See_Comment [Automat ed message] code = 370) The system [employer] generated this result transmitted ref erence range: [...] mechanical heart valves.CBC W/PLT COUNT & AUTO [id number] 18:00:00 Test Item Value Reference Range Interpretation [...] PERCENT (BEAKER) (test code = 2801) POCT-GLUCOSE [id number] 17:50:00 Test Item Value Reference Range Interpretation Comments POC-GLUCOSE METER 187 mg/dL 70-110 H : TESTED Yifan Linder [facility] 6720 (BEAKER) (test code = [place], 1538) 29298: Incinerator Plant General Supervisor/Techni daisy ID = [id number] for Constance David basim [id number] 16:34:00 RUN DATE: 10/19/18 [facility] - LAB *LIVE* PAGE 1 RUN TIME: 1634 Specimen Inquiry RUN USER: INTERFACE PATIENT: MEGHNA BIRD LOC: MAGGIE U #: [id number] AGE/SX: 77/F ROOM: FLAKITA RE10/12/18REG DR: Alfredo Cantu MD : 41 BED: 1 DIS: 10/13/18 STATUS: DIS Marcela TLOC: - SPEC #: [id number] RECD: 10/16/18 STATUS: GARDENIA REXimena #: [id number] JENNA: 10/13/[address]: Alfredo Cantu MD ENTERED: 10/16/18 SP TYPE: SURG OTHR DR: Thao Crooks MD, Nizam Mohammad MD [place], Frank E MDORDERED: /PAS MAUREEN, SURG PATH LVL 4, PATH STAIN GROU COPIES TO: Thao Crooks MD [address] [place], [place] [address] [place] [address] [place] [address] [email or web address] Baldemar Simeon MD [address] [place], [place] Babar Wang MD 201 [facility] [address] [place] [address] HISTOLOGY: TISSUE ID BLK PCS ALFREDO LEV PROCEDURE DISPOSITION ____ ___ ___ ___ STOMACH, NOS A 1 1 AB/PAS MAUREEN STOMACH, NOS A 1 2 PATH STAIN GROU PROCEDURES:ALBLUE (10/16/18) PAS (10/16/18) SURG PATH LVL 4 (10/16/18) PATH STAIN GROU (10/16/18) TISSUES: A. STOMACH, NOS - GASTRIC POLYP ADENO MASS CONTINUED ON NEXT PAGE RU N DATE: 10/19/18 [facility] - LAB *LIVE* PAGE 2 RUN TIME: 1634 Specimen Inquiry RUN USER: INTERFACE -------- ----SPEC #: [id number] PATIENT: MEGHNA BIRD #[id number] (Continued) CLINICAL HISTORY HX CA LG INTESTINE -Z85.038; DYSPEPSIA-K30; PAIN -R10.9 CPT CODES CPT CODE(S): 29821 , 13858 , 24733 , , , , FINAL DIAGNOSIS Stomach, polypectomy: CHRONIC GASTRITIS WITH INTESTINAL METAPLASIA NEGATIVE FOR DYSPLASIA OR MALIGNANCY NEGATIVE FOR HELICOBACTER PYLORI ORGANISMS GROSS DESCRIPTION Gastric polyp. Received in formalin are two mendiola tissue fragments, 0.2 cm each, all as A. ba/nr Grossing performed at [facility] Pathology, [address] [place] [address], [address], [place] [address]. Roofing Foreman: Carlos Sargent M.D. MICROSCOPIC DESCRIPTION Gastric polyp. Sections demonstrate gastric mucosa with chronic inflammation. No dysplasia or malignancy is seen. Alcian blue-PAS confirms the presence of focal intestinal metaplasia. No dysplasia or malignancy is identified. The Diff Quik stain demonstrates no evidence of Helicobacter pylori organi sms. Signed SIGNATURE ON FILE Nain Lott 10/19/18 9564 END OF REPORT GLUCOSE BEDSIDE [id number] 16:38:00 Test Item Value Reference Range Interpretation Comments GLUCOSE BEDSIDE TESTING (test code 174 mg/dL 70-110 H = GLUBED) GLUCOSE BEDSIDE [id number] 15:01:00 Test Item Value Reference Range Interpretation Comments GLUCOSE BEDSIDE TESTING (test code 193 mg/dL 70-110 H = GLUBED) GLUCOSE BEDSIDE [id number] 12:01:00 Test Item Value Reference Range Interpretation Comments GLUCOSE BEDSIDE TESTING (test code 178 mg/dL 70-110 H = GLUBED) GLUCOSE BEDSIDE [id number] 07:56:00 Test Item Value Reference Range Interpretation Comments GLUCOSE BEDSIDE TESTING (test code 191 mg/dL 70-110 H = GLUBED) BASIC METABOLIC [id number] 03:36:00 Test Item Value Reference Range Interpretation [...] CA) 8.5 MG/DL 8.5-10.1 N CBC W/AUTO [id number] 03:27:00 Test Item Value Reference Range Interpretation [...] = NO DIFF/SCN CRITERIA MDIFF) GLUCOSE BEDSIDE [id number] 21:07:00 Test Item Value Reference Range Interpretation Comments GLUCOSE BEDSIDE TESTING (test code 186 mg/dL 70-110 H = GLUBED) GLYCOSYLATED HEMOGLOBIN [id number] 17:49:00 Test Item Value Reference Range Interpretation Comments GLYCOSYLATED HEMOGLOBIN (HA1C) 8.2 % A1C 4.2-6.3 H (test code = GLYHGB) ESTIMATED AVERAGE GLUCOSE (test 189 MG/DLest code = EAG) COMPREHENSIVE METABOLIC [id number] 17:45:00 Test Item Value Reference Range Interpretation [...] = LDL/HDL) 1.61 Ratio 1.48-3.22 Avg N [id number] 17:45:00 Test Item Value Reference Range Interpretation Comments PHOSPHOROUS (test code = PHOS) 2.7 MG/DL 2.5-4.9 N RULE OUT [place] [id number] 17:45:00 Test Item Value Reference Range Interpretation [...] nume rical results may timothy yby method. [id number] 17:45:00 Test Item Value Reference Range Interpretation Comments MAGNESIUM (test code = MAG) 2.0 MG/DL 1.8-2.4 N THROMBOPLASTIN TIME [id number] 17:37:00 Test Item Value Reference Range Interpretation Comments THROMBOPLASTIN TIME PARTIAL 30.9 SECONDS 26-35 N (test code = PTT) PROTHROMBIN [id number] 17:36:00 Test Item Value Reference Range Interpretation Comments PT PATIENT (test code = PTP) 13.3 SECONDS 9.3-12.9 H INTERNATIONAL NORMAL RATIO 1.15 INR Unit 0.8-1.2 N (test code = INR) CBC W/AUTO [id number] 17:34:00 Test Item Value Reference Range Interpretation [...] DIFF/SCN CRITERIA MDIFF) - XR CHEST 1 [id number] 17:02:00 [facility] 1940 Age/S: 77 / F [address] [address] [place] Unit #: [id number] Loc: [place] [address] Phys: Alfredo Cantu MD Acct: [id number] Dis Date: Status: ADM IN PHONE #: [phone] Exam Date: 10/12/2018 1640 FAX #: Reason: CAD EXAMS: CPT: [id number] XR CHEST 1 [id number] Fluoro Time: DAP (Gy m2): Air Kerma (mGy): EXAMINATION: - XR CHEST 1 V. LOCATION: S 17. HISTORY: CAD. COMPARISON: None. TECHNIQUE: Single AP view of the chest was obtained. FINDINGS: The heart is normal in size. There is mild blunting of the right costophrenic angle. The left lung is clear. No acute osseous abnormality is identified. IMPRESSION: Small right pleural effusion and/or atelectasis. at 1702 Reported and signed by: Sofía Adorno CC: Alfredo Cantu MD; Baldemar Simeon MD; Babar Wang MD PAGE 1 Signed Report Name: MEGHNA BIRD [place] : 1940 Age/S: 77 / F [address] [place] Unit #: [id number] Loc: [place] [address] Phys: Alfredo Cantu MD Acct: [id number] Dis Date: Status: ADM IN PHONE #: [phone] Exam Date: 10/12/2018 1640 FAX #: Reason: CAD EXAMS: CPT: [id number] XR CHEST 1 V 50749 Fluoro Time: DAP (Gy m2): Air Kerma (mGy): (Continued) Technologist: Harsha Carr, RT(R)(CT)(MRI) Trnscb Date/Time: 10/12/2018 (1702) AnglePR7 Orig Print D/T: S: 10/12/2018 (2488) PAGE 2 Signed ReportGLUCOSE BEDSIDE [id number] 15:59:00 Test Item Value Reference Range Interpretation Comments GLUCOSE BEDSIDE TESTING (test code 114 mg/dL 70-110 H = GLUBED)
--- NOTE | 2022-02-06 19:15 | RAD REPORT ---
EXAM DESCRIPTION: Maria Esther Single View02/06/2022 6:56 pm CLINICAL HISTORY: sob COMPARISON: January 22, 2022 FINDINGS: Upper lobe vessels are prominent indicative of pulmonary venous hypertension. Lungs appear clear of acute infiltrate. Heart is mildly to moderately enlarged
[2022-02-06] MEDS ORDERED: METHYLPREDNISOLONE 125 MG INJ ONE (19:45)
[2022-02-06] MEDS ORDERED: LEVALBUTEROL 1.25 MG/3 ML NEB ONE (19:46)
[2022-02-06 20:18] LABS: Protime INR 1.24
[2022-02-06 20:20] LABS: Absolute Lymphocytes (CBC) 1.1 K/uL (0.7-4.9); Hematocrit 30.9 % (36.0-45.0); Lymphocytes % 9.6 % (15.3-44.8); MPV 8.8 fL (7.6-11.3); RBC Red Blood Cell Count 3.55 M/uL (3.86-4.86)
[2022-02-06 20:45] LABS: Albumin 3.1 g/dL (3.4-5.0); Bilirubin Direct 0.2 mg/dL (0-0.2); Bilirubin Total 0.7 mg/dL (0.2-1.0); Magnesium 2.1 mg/dL (1.8-2.4); Potassium 4.6 mmol/L (3.5-5.1); Protein, Total 8.3 g/dL (6.4-8.2)
[2022-02-06 20:46] LABS: Troponin High Sensitivity 22.5 pg/mL (<58.9)
[2022-02-06 20:47] LABS: SARS-COV-2 RT PCR NEGATIVE (NEGATIVE)
[2022-02-06 22:14] LABS: Urine Blood Trace-intact (Negative); Urine Glucose Negative (Negative); Urine Protein 2+ (Negative)
--- NOTE | 2022-02-06 22:24 | ER ---
Nurse's Notes [facility] Name: Gloria Longoria Age: 81 yrs Sex: Female : 1940 Arrival Date: 02/06/2022 Time: 18:20 Bed 2 Private MD: Diagnosis: COPD/ Chronic obstructive pulmonary disease with (acute) exacerbation;Hypoxemia Presentation: 02/06 18:27 Chief complaint: EMS states: "81 year old female from home who family was reporting she jd3 was having low O2 saturation. the daughter had her hooked up to a pulse ox and her room air saturation was at 85%. we put her on 4 L NC and her saturation came up to 95-100%. pt does have a history of COPD, CHF, HTN, DM.". Coronavirus screen: difficulty breathing, shortness of breath, Client presents with at least one sign or symptom that may indicate coronavirus-19. Standard/surgical mask placed on the client. Provider contacted for isolation considerations. Ebola Screen: No symptoms or risks identified at this time. Initial Sepsis Screen: Does the patient meet any 2 criteria? No. Patient's initial sepsis screen is negative. Does the patient have a suspected source of infection? No. Patient's initial sepsis screen is negative. Risk Assessment: Do you want to hurt yourself or someone else? Patient reports no desire to harm self or others. Onset of symptoms was February 06, 2022. 18:27 Method Of Arrival: EMS: [facility] jd3 18:27 Acuity: MALAIKA 3 jd3 19:59 Initial Sepsis Screen: Does the patient meet any 2 criteria? Yes. tw5 02/07 01:17 Initial Sepsis Screen: Does the patient have a suspected source of infection?. tw5 Historical: - Allergies: 02/06 18:30 Sulfa (Sulfonamide Antibiotics); jd3 - PMHx: 18:30 ADD/ADHD; CHF; colon cancer; Diabetes - IDDM; Hypertension; Pneumonia; jd3 - Immunization history:: Adult Immunizations up to date, Client reports receiving the 2nd dose of the Covid vaccine, Pneumococcal vaccine is up to date, Flu vaccine is up to date. - Social history:: Smoking status: Patient denies any tobacco usage or history of. Screenin:32 Abuse screen: Denies threats or abuse. Nutritional screening: No deficits noted. jd3 Tuberculosis screening: No symptoms or risk factors identified. Fall Risk Ambulatory Aid- None/Bed Rest/Nurse Assist (0 pts). Gait- Normal/Bed Rest/Wheelchair (0 pts) Mental Status- Oriented to own ability (0 pts). Total Tinsley Fall Scale indicates No Risk (0-24 pts). Assessment: 18:31 General: Appears in no apparent distress. comfortable, Behavior is calm, cooperative, jd3 appropriate for age. Pain: Complains of pain in left mid back Quality of pain is described as aching, crampy. Neuro: Small Agitation-Sedation Scale (RASS): 0 - Alert and Calm Level of Consciousness is awake, alert, obeys commands, Oriented to person, place, time, situation. Cardiovascular: Denies chest pain, Capillary refill < 3 seconds Patient's skin is warm and dry. Respiratory: Reports shortness of breath at rest Airway is patent Respiratory effort is even, unlabored, Respiratory pattern is regular, symmetrical, Breath sounds are clear bilaterally. GI: No signs and/or symptoms were reported involving the gastrointestinal system. : No signs and/or symptoms were reported regarding the genitourinary system. EENT: No signs and/or symptoms were reported regarding the EENT system. Derm: Skin is intact, Skin is dry, Skin is normal, Skin temperature is warm. Musculoskeletal: Circulation, motion, and sensation intact. Range of motion: intact in all extremities. 19:00 Reassessment: Patient appears in no apparent distress at this time. Patient and/or jb4 family updated on plan of care and expected duration. Pain level reassessed. Patient is alert, oriented x 3, equal unlabored respirations, skin warm/dry/pink. 19:36 Reassessment: Inside lab called for blood cultures. jb4 20:09 Reassessment: Patient appears in no apparent distress at this time. Patient and/or jb4 family updated on plan of care and expected duration. Pain level reassessed. Patient is alert, oriented x 3, equal unlabored respirations, skin warm/dry/pink. 20:09 Respiratory: Airway is patent Respiratory effort is even, unlabored, Respiratory jb4 pattern is regular, symmetrical, Breath sounds are clear bilaterally. Denies shortness of breath at rest. 20:46 Reassessment: attempted to wean pt of O2 after breathing treatment, pt desat to 88% on jb4 RA, placed on 2L NC, now maintaining O2 sat of 95-97%, provider notified. 22:00 Reassessment: Patient appears in no apparent distress at this time. Patient and/or jb4 family updated on plan of care and expected duration. Pain level reassessed. Patient is alert, oriented x 3, equal unlabored respirations, skin warm/dry/pink. 23:00 Reassessment: Patient appears in no apparent distress at this time. Patient and/or jb4 family updated on plan of care and expected duration. Pain level reassessed. Patient is alert, oriented x 3, equal unlabored respirations, skin warm/dry/pink. 02/07 00:00 Reassessment: Patient appears in no apparent distress at this time. Patient and/or jb4 family updated on plan of care and expected duration. Pain level reassessed. Patient is alert, oriented x 3, equal unlabored respirations, skin warm/dry/pink. Vital Signs: 02/06 18:30 BP 134 / 54; Pulse 90; Resp 20 S; Temp 98.9(O); Pulse Ox 100% on 4 lpm NC; Weight 90.72 jd3 kg (R); Height 5 ft. 2 in. (157.48 cm) (R); Pain 5/10; 20:00 BP 122 / 62; Pulse 86; Resp 20; Pulse Ox 98% on 4 lpm NC; jb4 21:00 BP 128 / 58; Pulse 88; Resp 21; Pulse Ox 92% on 2 lpm NC; jb4 22:30 BP 122 / 66; Pulse 85; Resp 23; Pulse Ox 96% on 2 lpm NC; jb4 18:30 Body Mass Index 36.58 (90.72 kg, 157.48 cm) jd3 ED Course: 18:20 Patient arrived in ED. eb 18:27 Bruno Torres, RN is Primary Nurse. jd3 18:30 Triage completed. jd3 18:30 Arm band placed on. jd3 18:31 Harris Ramsey PA is PHCP. cp 18:31 Tenzin Schuster MD is Attending Physician. cp 18:32 Patient has correct armband on for positive identification. Bed in low position. Call jd3 light in reach. Side rails up X2. Pulse ox on. NIBP on. 18:33 Warm blanket given. jd3 18:58 XRAY Chest (1 view) In Process Unspecified. EDMS 19:39 COVID-19/FLU A+B Sent. jb4 19:46 Primary Nurse role handed off by Bruno Torres RN eb 19:46 Zia Rodrigues, RN is Primary Nurse. jb4 19:48 Esperanza Hernandez MD is Attending Physician. cp 19:56 Inserted saline lock: 20 gauge in left antecubital area, using aseptic technique. Blood tw5 collected. Ultrasound guided IV. 22:13 Urine Microscopic Only Sent. ha1 22:14 CT Chest Wo Con In Process Unspecified. EDMS 22:23 Kristopher Ayon MD is Hospitalizing Provider. cp Administered Medications: 20:10 Drug: SOLU-Medrol (methylPrednisoLONE) 125 mg Route: IVP; Site: left antecubital; jb4 20:37 Follow up: Response: No adverse reaction jb4 20:14 Drug: Xopenex (levalbuterol) (3) 1.25 mg Route: Inhalation; jb4 20:37 Follow up: Response: No adverse reaction jb4 Medication: 18:32 VIS not applicable for this client. jd3 Outcome: 22:24 Decision to Hospitalize by Provider. cp 02/07 01:49 Patient left the ED. tw5 Signatures: Dispatcher [employer] EDWV Harris Ramsey PA PA cp Zia Rodrigues, RN RN jb4 Bruno Torres RN RN jd3 Yolis Borges Tiffany tw5 Evelyn Chow RN RN 1 Corrections: (The following items were deleted from the chart) 02/06 18:43 18:31 Neuro: Small Agitation-Sedation Scale (RASS): 0 - Alert and Calm Level of jd3 Consciousness is awake, alert, obeys commands, Oriented to person, place, time, situation, jd3 18:43 18:31 Respiratory: Reports shortness of breath at rest Airway is patent Respiratory jd3 effort is even, unlabored, Respiratory pattern is regular, symmetrical, jd3
--- NOTE | 2022-02-06 22:24 | EDPHYS ---
Physician Documentation [facility] Name: Gloria Longoria Age: 81 yrs Sex: Female : 1940 Arrival Date: 02/06/2022 Time: 18:20 Bed 2 Private MD: ED Physician Esperanza Hernandez HPI: 02/06 19:00 This 81 yrs old Black Female presents to ER via EMS with complaints of Shortness of cp Breath. 19:00 The patient has shortness of breath at rest. cp 19:00 Onset: The symptoms/episode began/occurred gradually, and became worse today. cp 19:00 Duration: The symptoms are continuous, and are steadily getting worse. Associated signs cp and symptoms: Pertinent negatives: chest pain, productive cough, fever, vomiting. Severity of symptoms: in the emergency department the symptoms are unchanged despite home interventions. Historical: - Allergies: 18:30 Sulfa (Sulfonamide Antibiotics); jd3 - PMHx: 18:30 ADD/ADHD; CHF; colon cancer; Diabetes - IDDM; Hypertension; Pneumonia; jd3 - Immunization history:: Adult Immunizations up to date, Client reports receiving the 2nd dose of the Covid vaccine, Pneumococcal vaccine is up to date, Flu vaccine is up to date. - Social history:: Smoking status: Patient denies any tobacco usage or history of. ROS: 19:05 Constitutional: Negative for body aches, chills, fever, poor PO intake. cp 19:05 Eyes: Negative for injury, pain, redness, and discharge. cp Exam: 19:02 ECG was reviewed by the Attending Physician. cp 19:08 Constitutional: The patient appears in no acute distress, alert, awake, cp non-diaphoretic, non-toxic, well developed, well nourished, obese. 19:08 Head/Face: Normocephalic, atraumatic. cp 19:08 Eyes: Periorbital structures: appear normal, Pupils: equal, round, and reactive to light and accomodation, Extraocular movements: intact throughout, Conjunctiva: normal, no exudate, no injection, Sclera: no appreciated abnormality, Lids and lashes: appear normal, bilaterally. 19:08 ENT: External ear(s): are unremarkable, Nose: is normal, Mouth: Lips: moist, Oral mucosa: pink and intact, moist, Posterior pharynx: Airway: no evidence of obstruction, patent, swelling, is not appreciated, erythema, is not appreciated, exudate, is not appreciated. 19:08 Neck: ROM/movement: is normal, is supple, without pain, no range of motions limitations, no meningismus. 19:08 Chest/axilla: Inspection: normal. 19:08 Cardiovascular: Rate: normal, Rhythm: regular, Edema: ankle edema, that is very mild, JVD: is not appreciated. 19:08 Respiratory: the patient does not display signs of respiratory distress, Respirations: labored breathing, is not present, Breath sounds: decreased breath sounds, that are mild, throughout, stridor, is not appreciated, wheezing: is not appreciated. 19:08 Abdomen/GI: Inspection: obese Palpation: abdomen is soft and non-tender, in all quadrants. 19:08 Back: pain, is absent, ROM is normal. 19:08 Skin: no rash present. 19:08 Neuro: Orientation: to person, place \T\ time. Mentation: is normal, Motor: moves all fours, strength is normal, Sensation: is normal. Vital Signs: 18:30 BP 134 / 54; Pulse 90; Resp 20 S; Temp 98.9(O); Pulse Ox 100% on 4 lpm NC; Weight 90.72 jd3 kg (R); Height 5 ft. 2 in. (157.48 cm) (R); Pain 5/10; 20:00 BP 122 / 62; Pulse 86; Resp 20; Pulse Ox 98% on 4 lpm NC; jb4 21:00 BP 128 / 58; Pulse 88; Resp 21; Pulse Ox 92% on 2 lpm NC; jb4 22:30 BP 122 / 66; Pulse 85; Resp 23; Pulse Ox 96% on 2 lpm NC; jb4 18:30 Body Mass Index 36.58 (90.72 kg, 157.48 cm) jd3 MDM: 18:33 Patient medically screened. cp 02/06 18:47 Order name: Basic Metabolic Panel; Complete Time: 21:26 cp 02/06 21:27 Interpretation: Normal except: GLUC 192; BUN 31; CRE 1.63; GFR 32. cp 02/06 18:47 Order name: CBC with Diff; Complete Time: 20:37 cp 02/06 20:37 Interpretation: Normal except: WBC 11.40; RBC 3.55; HGB 9.7; HCT 30.9; MCHC 31.5; RDW cp 16.7; LYM% 9.6; MN% 14.9; NEUT A 8.3; MNA 1.7. 02/06 18:47 Order name: LFT's; Complete Time: 21:26 cp 02/06 18:47 Order name: Magnesium; Complete Time: 21:26 cp 02/06 18:47 Order name: NT PRO-BNP; Complete Time: 21:26 cp 02/06 21:27 Interpretation: Abnormal: NT PRO-BNP 1202. cp 02/06 18:47 Order name: PT-INR; Complete Time: 20:37 02/06 18:47 Order name: Troponin HS; Complete Time: 21:26 cp 02/06 18:47 Order name: COVID-19/FLU A+B; Complete Time: 21:26 02/06 18:47 Order name: Urine Microscopic Only 02/06 18:47 Order name: Lactate w/ 2H reflex if indic.; Complete Time: 20:37 02/06 20:37 Interpretation: LAC 1.0; Reviewed. 02/06 18:47 Order name: Procalcitonin; Complete Time: 22:13 02/06 18:47 Order name: Blood Culture Adult (2) 02/06 22:14 Order name: Urine Dipstick-Ancillary; Complete Time: 22:24 EDMS 02/06 22:25 Order name: DD; Complete Time: 22:46 la1 02/06 22:47 Interpretation: D-DIMER 689; Reviewed. 02/06 18:47 Order name: XRAY Chest (1 view); Complete Time: 19:25 cp 02/06 18:47 Order name: EKG; Complete Time: 18:48 cp 02/06 18:47 Order name: Cardiac monitoring; Complete Time: 18:48 cp 02/06 18:47 Order name: EKG - Nurse/Tech; Complete Time: 19:00 02/06 18:47 Order name: IV Saline Lock; Complete Time: 19:00 02/06 18:47 Order name: Labs collected and sent; Complete Time: 00:17 cp 02/06 18:47 Order name: O2 Per Protocol; Complete Time: 18:48 cp 02/06 18:47 Order name: O2 Sat Monitoring; Complete Time: 18:48 cp 02/06 18:47 Order name: Urine Dipstick-Ancillary (obtain specimen); Complete Time: 22:13 02/06 21:29 Order name: CT Chest Wo Con; Complete Time: 22:30 02/06 22:46 Interpretation: Report reviewed. cp EC:02 Rate is 88 beats/min. Rhythm is regular. CT interval is prolonged at 272 msec. QRS cp interval is normal. QT interval is normal. T waves are Inverted in leads I, aVL. Interpreted by me. Reviewed by me. Administered Medications: 20:10 Drug: SOLU-Medrol (methylPrednisoLONE) 125 mg Route: IVP; Site: left antecubital; 4 20:37 Follow up: Response: No adverse reaction jb4 20:14 Drug: Xopenex (levalbuterol) (3) 1.25 mg Route: Inhalation; jb4 20:37 Follow up: Response: No adverse reaction jb4 Disposition: 02/07 19:23 STAFF ATTESTATION STATEMENT: I was immediately available onsite in the emergency sd2 department for consultation in the care of this patient. I did not see or examine this patient. Esperanza Hernandez MD. Disposition Summary: 02/06/22 22:24 Hospitalization Ordered Hospitalization Status: Inpatient Admission cp Provider: Kristopher Ayon cp [facility] cp Condition: Stable cp Problem: an acute exacerbation cp Symptoms: have improved cp Bed/Room Type: Standard cp Room Assignment: 408(02/07/22 00:53) cg Diagnosis - COPD/ Chronic obstructive pulmonary disease with (acute) exacerbation cp - Hypoxemia cp Forms: - Medication Reconciliation Form cp - SBAR form cp Signatures: Dispatcher [employer] EDMS Rafael Chavez FNP-C [employer] TECHNICIAN-Cla1 Harris Ramsey PA PA cp Vandana Tobin RN RN cg Bryson, James, RN RN jbBruno Narvaez RN RN jd3 Esperanza Hernandez MD MD sd2 Corrections: (The following items were deleted from the chart) 02/06 19:38 19:37 This 81 yrs old Black Female presents to ER via EMS with complaints of Shortness cp of Breath. cp 02/07 00:53 02/06 22:24 cp cg
--- NOTE | 2022-02-06 22:26 | RAD REPORT ---
EXAM DESCRIPTION: CT - Thorax Wo Con - 02/06/2022 10:13 pm CLINICAL HISTORY: sob COMPARISON: December 2021 TECHNIQUE: Computed axial tomography of the chest was obtained. Contrast was not requested. All CT scans are performed using dose optimization technique as appropriate and may include automated exposure control or mA/KV adjustment according to patient size. FINDINGS: The evaluation of mediastinum, dasha and vessels is limited secondary to lack of IV contras t administration. Tiny lung nodules are unchanged. A few areas of subsegmental atelectasis within the lung bases. No mediastinal or hilar lymphadenopathy is seen. A pleural effusion is not present. IMPRESSION: No significant abnormality is displayed
[2022-02-06 22:50] LABS: Urine Bacteria <20 /HPF (<20); Urine Mucus Slight /HPF (None Seen)
--- NOTE | 2022-02-07 00:29 | P.HP ---
Certification for Inpatient Patient admitted to: Observation With expected LOS: <2 Midnights Patient will require the following post-hospital care: None Practitioner: I am a practitioner with admitting privileges, knowledge of patient current condition, hospital course, and medical plan of care. Services: Services provided to patient in accordance with Admission requirements found in Title 42 Section 412.3 of the Code of Federal Regulations <Rafael Chavez - Last Filed: 02/07/22 00:25> Patient History Date of Service: 02/07/22 Reason for admission: Dyspnea, COPD exacerbation History of Present Illness: 81-year-old female with history of chronic diastolic congestive heart failure, COPD, diabetes mellitus type 2insulin-dependent, hypertension, CAD presents to the emergency department for dyspnea. She reports that her shortness of breath began today she was brought in by EMS who reported her sats were 85% on room air. She was treated with IV Solu-Medrol, Xopenex in the emergency department and had improvement in her symptoms although she was still requiring nasal cannula oxygen. Her evaluation in the emergency department revealed labs significant for leukocytosis with white blood cell count 11.4, creatinine 1.63 baseline appears to be around 1.4, glucose 192 BNP 1202 procalcitonin 0.06 chest x-ray and CT chest without contrast negative for acute findings patient denies any chest pain reports she is feeling better after nebulizer treatment, steroids. D-dimer was obtained which was moderately elevated 689 but age- adjusted D-dimer would be considered negative. ED provider wishes to admit for further evaluation and management of suspected COPD exacerbation, hypoxia. - Past Medical/Surgical History Diabetic: Yes -: Glaucoma -: CHF, diastolic dysfunction -: HTN -: GERD -: DM Neuropathy -: History of Colon CA -: Diabetes mellitus type 2 -: Fatty liver with Morbid Obesity -: CAD -: Cholecystectomy -: Colon resection -: Appendectomy -: Hysterectomy -: Right Rotator Cuff Repair -: Colectomy Psychosocial/ Personal History: She lives at home. Her daughter helps her at home. - Family History Mother -: Cancer Notes: colon Brother -: Hypertension Sister -: Heart disease, Hypertension, Lung disease, Cancer - Social History Smoking Status: Never smoker Alcohol use: No CD- Drugs: No Caffeine use: Yes Place of Residence: Home <Rafael Chavez - Last Filed: 02/07/22 00:25> Date of Service: 02/07/22 <Kristopher Ayon - Last Filed: 02/07/22 12:36> Allergies Sulfa (Sulfonamide Antibiotics) Allergy (Intermediate, Verified 09/22/21 21:30) Rash Home Medications: Bimatoprost [Lumigan Opthalmic Drops*] 1 gtt OPTH BEDTIME 02/07/22 Brimonidine Tartrate/Timolol [Combigan 0.2%-0.5% Eye Drops] 1 gtt OPTH BID 02/07/22 Cholecalciferol (Vitamin D3) [Vitamin D3] 1 cap PO DAILY 02/07/22 Cyanocobalamin (Vitamin B-12) [Vitamin B12] 5,000 mcg PO DAILY 02/07/22 Ferrous Sulfate [Iron] 325 mg PO DAILY 02/07/22 Insulin Detemir [Levemir] 60 units SQ BID 02/07/22 Insulin Lispro [Humalog] See Rx Instructions .ROUTE .COMPLEX 02/07/22 RX: Amlodipine Besylate 10 mg PO DAILY 02/07/22 RX: Aspirin [Aspirin EC 81 MG] 81 mg PO DAILY 02/07/22 RX: Carvedilol [Coreg] 25 mg PO BID 02/07/22 RX: Furosemide 40 mg PO DAILY 02/07/22 RX: Magnesium Oxide [Mag 0X*] 400 mg PO DAILY 02/07/22 RX: Metformin HCl 500 mg PO BID 02/07/22 RX: Pantoprazole [Protonix Tab*] 40 mg PO DAILY 02/07/22 RX: Pregabalin [Lyrica*] 75 mg PO DAILY 02/07/22 RX: Rosuvastatin Calcium 40 mg PO BEDTIME 02/07/22 RX: Sertraline HCl 100 mg PO DAILY 02/07/22 RX: Trazodone [Desyrel*] 50 mg PO BEDTIME 02/07/22 Review of Systems 10-point ROS is otherwise unremarkable Respiratory: Cough, Shortness of Breath <Rafael Chaevz - Last Filed: 02/07/22 00:25> Physical Examination - Physical Exam General: Alert, In no apparent distress, Oriented x3 HEENT: Atraumatic, PERRLA, Mucous membr. moist/pink, EOMI, Sclerae nonicteric Neck: Supple, 2+ carotid pulse no bruit, No LAD, Without JVD or thyroid abnormality Respiratory: Normal air movement, Diminished Cardiovascular: Regular rate/rhythm, Normal S1 S2 Capillary refill: <2 Seconds Gastrointestinal: Normal bowel sounds, No tenderness Musculoskeletal: No tenderness Integumentary: No rashes Neurological: Normal speech, Normal strength at 5/5 x4 extr, Normal tone, Normal affect - Studies Laboratory Data (last 24 hrs) 02/06/22 19:45: PT 13.6 H, INR 1.24 02/06/22 19:45: WBC 11.40 H, Hgb 9.7 L, Hct 30.9 L, Plt Count 227 02/06/22 19:45: Sodium 136, Potassium 4.6, BUN 31 H, Creatinine 1.63 H, Glucose 192 H, Magnesium 2.1, Total Bilirubin 0.7, AST 19, ALT 19, Alkaline Phosphatase 88 <Rafael Chavez - Last Filed: 02/07/22 00:25> - Studies Laboratory Data (last 24 hrs) 02/06/22 19:45: PT 13.6 H, INR 1.24 02/06/22 19:45: WBC 11.40 H, Hgb 9.7 L, Hct 30.9 L, Plt Count 227 02/06/22 19:45: Sodium 136, Potassium 4.6, BUN 31 H, Creatinine 1.63 H, Glucose 192 H, Magnesium 2.1, Total Bilirubin 0.7, AST 19, ALT 19, Alkaline Phosphatase 88 Microbiology Data (last 24 hrs): 02/06/22 20:13 Blood - Blood Anaerobic Blood Culture - Final 02/06/22 20:18 Blood - Blood Anaerobic Blood Culture - Final <Kristopher Ayon - Last Filed: 02/07/22 12:36> Assessment and Plan - Plan Assessment: Dyspnea, acute hypoxic respiratory failure secondary to COPD exacerbation Chronic diastolic congestive heart failure Diabetes mellitus type 2insulin-dependent with hyperglycemia Hypertension Hyperlipidemia GERD History of CAD Plan: Dyspnea, acute hypoxic respiratory failure secondary to COPD exacerbation: Continue p.o. steroids,. Nebulizer treatments, ICS. She has improved after initial treatment, daily room air saturations. Chronic diastolic congestive heart failure: Continue Lasix p.o. at home dose 40 mg daily. Diabetes mellitus type 2insulin-dependent with hyperglycemia: Patient takes Levemir 60 units twice daily in addition to sliding scale. Will provide long- acting insulin at 50 units twice daily for time being, may need to be increased as patient will be on p.o. steroids. A1c in the morning. Hypertension: Home medications have been continued. Hyperlipidemia:Home medications have been continued. GERD:Home medications have been continued. History of CAD:Home medications have been continued. Also trending troponins. DVT PPX: Lovenox Code status: Full Discharge Plan: Home Plan to discharge in: 24 Hours - Advance Directives Does patient have a Living Will: No Does patient have a Durable POA for Healthcare: No - Code Status/Comfort Care Code Status Assessed: Yes (Full code) Critical Care: No Time Spent Managing Pts Care (In Minutes): 70 <Rafael Chavez - Last Filed: 02/07/22 00:25> Physician Review: Patient Assessed, Agree with Above Assessment and Plan <Kristopher Ayon - Last Filed: 02/07/22 12:36>
[2022-02-07] MEDS ORDERED: ONDANSETRON 4 MG/2 ML VIAL IV PRN (02:04)
[2022-02-07] MEDS ORDERED: IPRATROPIUM BROM 0.5MG/2.5ML NEB PRN (02:04)
[2022-02-07] MEDS ORDERED: ALBUTEROL 2.5 MG/3 ML NEB SOL NEB PRN (02:04)
[2022-02-07 05:40] LABS: Absolute Lymphocytes (CBC) 0.5 K/uL (0.7-4.9); Hematocrit 27.2 % (36.0-45.0); Lymphocytes % 5.5 % (15.3-44.8); MCV 88.1 fL (80-100); MPV 8.8 fL (7.6-11.3); RBC Red Blood Cell Count 3.09 M/uL (3.86-4.86)
[2022-02-07 05:58] LABS: Albumin 2.6 g/dL (3.4-5.0); Bilirubin Total 0.8 mg/dL (0.2-1.0); Potassium 5.4 mmol/L (3.5-5.1); Troponin High Sensitivity 19.3 pg/mL (<58.9)
[2022-02-07] MEDS: PANTOPRAZOLE 40MG TABLET PO SCH (06:01)
[2022-02-07] MEDS: carvediloL 25 MG TAB PO SCH ×2 (06:02→16:51)
[2022-02-07] MEDS: INSULIN GLARGINE 100 UNIT/ML SQ SCH ×2 (06:31→20:05)
[2022-02-07] MEDS: INSULIN -REGULAR HUMAN 50 UNIT/0.5 ML ML SQ SCH ×5 (06:32→23:36)
[2022-02-07 09:00] LABS: Blood Morphology Comment NOT SEEN (NOT SEEN); Platelet Estimate ADEQ; Platelets, Giant FEW PRESENT; White Blood Cell Scan OK (OK)
[2022-02-07] MEDS ORDERED: FUROSEMIDE 40 MG TABLET PO SCH (09:00)
[2022-02-07 09:24] LABS: Potassium 5.5 mmol/L (3.5-5.1)
[2022-02-07] MEDS ORDERED: GLUCAGON 1 MG/VIAL IM PRN ×4 (09:29→23:30)
[2022-02-07] MEDS ORDERED: D50W 25 GM/50 ML SYRINGE IV PRN ×4 (09:29→23:30)
[2022-02-07] MEDS ORDERED: INSULIN -REGULAR HUMAN 50 UNIT/0.5 ML ML IV ONE ×4 (09:30→23:31)
[2022-02-07] MEDS ORDERED: NA CHLORIDE 0.9% 500 ML IV ONE (09:32)
[2022-02-07] MEDS ORDERED: DEXTROSE 10%-WATER 125 ML IV PRN (09:35)
[2022-02-07] MEDS: predniSONE 20 MG TAB PO SCH ×2 (09:53→20:05)
[2022-02-07] MEDS: ASPIRIN EC 81 MG TAB PO SCH (09:53)
[2022-02-07] MEDS: ENOXAPARIN 30 MG/0.3 ML SQ SCH (09:53)
[2022-02-07] MEDS: DULERA 200/5 (MOMETASONE/FORMOTEROL) INHALER IH SCH ×2 (09:53→20:05)
[2022-02-07] MEDS: AMLODIPINE 10 MG TAB PO SCH (09:53)
[2022-02-07] MEDS ORDERED: SOD POLYSTYREN SUL 15 GM/60 ML UCUP PO ONE (10:15)
--- NOTE | 2022-02-07 17:09 | P.CNS ---
Date of Consult: 02/07/22 Reason for Consult: LONG , hyperkalemia, Hyponatremia Chief Complaint: Dyspnea, COPD exacerbation History of Present Illness: 81-year-old female with history of DM CKD III baseline cr 1.2, chronic diastolic congestive heart failure, COPD, diabetes mellitus type 2insulin- dependent, hypertension, CAD Pt presented to ER with SOB, pt on was recently admitted to [facility] for COPD exacerbation, as per daughter pt had LONG and uncontrolled BS there , she also reported that pt was on lasix and aldactone, and aldactone was stopped , pt was discharge on 01/27 as per daughter renal function improved on discharge this admission pt was hypoxic creatinine 1.63 baseline appears to be around 1.4, glucose 192 BNP 1202 procalcitonin 0.06 chest x-ray and CT chest without contrast negative for acute findings , today cr up to 2.1, no IV contrast or NSAID intake , also BS >500 ROS General : denies fever, chills, WT change weakness, insomnia HEENT:tooth aches, poor visual acuty Resp: SOB, cough Cardiovascular: denied chest pain, palpitation , GI: denies abdominal pain, diarrhea or constipation : denies dysuria, urgency, foamy urine or blood tinged urine Musculoskeletal: denies muscle aches, joint pain Endo: denies polyuria and and polydipsia Extre: denies pain numbness and swelling Physical exam General: AAOx3, NAD, obese HEENT PERRLA, moist mucose membrane neck: supple, no elevated JVD CHEST; CTAB, no wheezes or rales HEART : RRR. Normal S1,2 no murmur or rub Abd: soft, Nt Ext: no edema Skin : No rash A/P #LONG possibly due to overdiuresis wt looks euvolemic now UA: proteinuria , with trace hematuria will hold lasix will order renal US renal diet renal dose emdications #pseudohyponatremia BS control #Hyperkalemia due to LONG and potassium shift BS control S/P kayexalate #CODP exacerbation cont inhlaers and steroids #poorly controlled DM SSI Total time spent 65 minutes including documentation, reviewing labs , placing orders and discussing with medical team Allergies Sulfa (Sulfonamide Antibiotics) Allergy (Intermediate, Verified 09/22/21 21:30) Rash Home Medications: Amlodipine Besylate 10 mg PO DAILY 02/07/22 Aspirin [Aspirin EC 81 MG] 81 mg PO DAILY 02/07/22 Bimatoprost [Lumigan Opthalmic Drops*] 1 gtt OPTH BEDTIME 02/07/22 Brimonidine Tartrate/Timolol [Combigan 0.2%-0.5% Eye Drops] 1 gtt OPTH BID 02/07/22 Carvedilol [Coreg] 25 mg PO BID 02/07/22 Cholecalciferol (Vitamin D3) [Vitamin D3] 1 cap PO DAILY 02/07/22 Cyanocobalamin (Vitamin B-12) [Vitamin B12] 5,000 mcg PO DAILY 02/07/22 Ferrous Sulfate [Iron] 325 mg PO DAILY 02/07/22 Furosemide 40 mg PO DAILY 02/07/22 Insulin Detemir [Levemir] 60 units SQ BID 02/07/22 Insulin Lispro [Humalog] See Rx Instructions .ROUTE .COMPLEX 02/07/22 Magnesium Oxide [Mag 0X*] 400 mg PO DAILY 02/07/22 Metformin HCl 500 mg PO BID 02/07/22 Pantoprazole [Protonix Tab*] 40 mg PO DAILY 02/07/22 Pregabalin [Lyrica*] 75 mg PO DAILY 02/07/22 Rosuvastatin Calcium 40 mg PO BEDTIME 02/07/22 Sertraline HCl 100 mg PO DAILY 02/07/22 Trazodone [Desyrel*] 50 mg PO BEDTIME 02/07/22 - Past Medical/Surgical History Diabetic: Yes -: Glaucoma -: CHF, diastolic dysfunction -: HTN -: GERD -: DM Neuropathy -: History of Colon CA -: Diabetes mellitus type 2 -: Fatty liver with Morbid Obesity -: CAD -: COPD -: Cholecystectomy -: Colon resection -: Appendectomy -: Hysterectomy -: Right Rotator Cuff Repair -: Colectomy Psychosocial/ Personal History: She lives at home. Her daughter helps her at home. - Family History Mother Medical History: Cancer Notes: colon Brother Medical History: Hypertension Sister Medical History: Heart disease, Hypertension, Lung disease, Cancer - Social History Smoking Status: Never smoker Alcohol use: No CD- Drugs: No Caffeine use: Yes Place of Residence: Home Physical Examination Temp Pulse Resp BP Pulse Ox 98.1 F 81 18 128/64 97 02/07/22 16:00 02/07/22 16:00 02/07/22 16:00 02/07/22 16:00 02/07/22 16:00 Laboratory Data (last 24 hrs) 02/07/22 08:31: Sodium 132 L, Potassium 5.5 H, BUN 42 H, Creatinine 2.11 H, Glucose 646 H* 02/07/22 07:39: Glucose Cancelled 02/07/22 05:04: Sodium 131 L D, Potassium 5.4 H D, BUN 39 H, Creatinine 1.93 H, Glucose 568 H*, Total Bilirubin 0.8, AST 12 L, ALT 18, Alkaline Phosphatase 82 02/07/22 05:04: WBC 8.30, Hgb 8.7 L D, Hct 27.2 L, Plt Count 203 02/06/22 19:45: PT 13.6 H, INR 1.24 02/06/22 19:45: WBC 11.40 H, Hgb 9.7 L, Hct 30.9 L, Plt Count 227 02/06/22 19:45: Sodium 136, Potassium 4.6, BUN 31 H, Creatinine 1.63 H, Glucose 192 H, Magnesium 2.1, Total Bilirubin 0.7, AST 19, ALT 19, Alkaline Phosphatase 88
[2022-02-07] MEDS: ROSUVASTATIN 10 MG TAB PO SCH (20:05)
[2022-02-07 21:51] LABS: UR PROTEIN 65.4 mg/dL (<11.9); Urine Protein/Creatinine Ratio 1.04 ratio (<0.15)
[2022-02-07] MEDS ORDERED: FAMOTIDINE 20 MG/2 ML VIAL IV ONE (23:43)
[2022-02-07] MEDS: ACETAMINOPHEN 325 MG TABLET PO PRN (23:55)
[2022-02-08] MEDS ORDERED: INSULIN -REGULAR HUMAN 50 UNIT/0.5 ML ML SQ SCH (02:15)
[2022-02-08] MEDS: INSULIN -REGULAR HUMAN 50 UNIT/0.5 ML ML SQ SCH ×5 (03:33→21:02)
[2022-02-08 04:08] LABS: Absolute Lymphocytes (CBC) 0.6 K/uL (0.7-4.9); Hematocrit 25.8 % (36.0-45.0); Lymphocytes % 5.8 % (15.3-44.8); MCV 86.7 fL (80-100); MPV 8.7 fL (7.6-11.3); RBC Red Blood Cell Count 2.98 M/uL (3.86-4.86)
[2022-02-08 04:56] LABS: Albumin 2.7 g/dL (3.4-5.0); Bilirubin Total 0.5 mg/dL (0.2-1.0); Phosphorus 3.5 mg/dL (2.5-4.9); Potassium 4.2 mmol/L (3.5-5.1); Thyroid Stimulating Hormone 0.639 uIU/mL (0.360-3.740)
[2022-02-08] MEDS: PANTOPRAZOLE 40MG TABLET PO SCH ×2 (05:59→08:41)
[2022-02-08] MEDS: carvediloL 25 MG TAB PO SCH ×2 (06:00→16:36)
--- NOTE | 2022-02-08 07:00 | RAD REPORT ---
EXAM DESCRIPTION: US - Renal Ultrasound-Complete - 02/08/2022 12:23 am CLINICAL HISTORY: LONG COMPARISON: Renal Ultrasound-Complete dated 08/21/2019 FINDINGS: The right kidney measures 13.2 x 5.6 x 5.1 cm. The left kidney measures 12.1 x 6.0 x 4 7 cm. Cortical thickness is normal. There is increase in cortical echogenicity consistent with underlyi ng medical renal disease. No hydronephrosis or suspicious renal mass. No bladder wall thickening or mass. No intraluminal stone or mass. IMPRESSION: No hydronephrosis or suspicious renal mass. Mild increased cortical echogenicity consistent with underlying medical renal disease.
[2022-02-08] MEDS: AMLODIPINE 10 MG TAB PO SCH (08:41)
[2022-02-08] MEDS: INSULIN GLARGINE 100 UNIT/ML SQ SCH ×2 (08:41→21:00)
[2022-02-08] MEDS: ENOXAPARIN 30 MG/0.3 ML SQ SCH (08:42)
[2022-02-08] MEDS: predniSONE 20 MG TAB PO SCH ×2 (08:42→21:06)
[2022-02-08] MEDS: ASPIRIN EC 81 MG TAB PO SCH (08:42)
[2022-02-08] MEDS: DULERA 200/5 (MOMETASONE/FORMOTEROL) INHALER IH SCH ×2 (09:00→21:09)
--- NOTE | 2022-02-08 09:47 | RAD REPORT ---
EXAM DESCRIPTION: NM - Vent Perfusion VQ Scan - 02/08/2022 9:41 am CLINICAL HISTORY: R/O PE, chest pain, shortness of breath COMPARISON: CT chest February 06, portable chest February 06 TECHNIQUE: The patient was administered 21.4 mCi Xenon 133 gas with posterior projection inspiration , equilibrium, and washout views obtained. The patient was then administered 6.5 mCi Tc-99m MAA label ed RBCs followed by standard 8 view protocol. FINDINGS: There is good distribution of the Xenon with no ventilation defects identified. No signifi cant air-trapping seen. Perfusion images show no defects suspicious for pulmonary emboli. IMPRESSION: No evidence for pulmonary emboli. No ventilation defects seen and no significant air trapping identifiable.
--- NOTE | 2022-02-08 09:55 | RAD REPORT ---
EXAM DESCRIPTION: RAD - Chest Single View - 02/08/2022 9:43 am CLINICAL HISTORY: POST VQ SCAN COMPARISON: Portable February 06 TECHNIQUE: AP portable chest image was obtained 02/08/2022 9:43 am . FINDINGS: No focal consolidation or mass. Interstitial markings are increased, left greater than rig ht. Pattern is not clearly different. Prominent heart size remains. Central vasculature is prominent. No measurable pleural effusion and no pneumothorax. No acute bony abnormality seen. No acute aortic findings suspected. IMPRESSION: No peripheral mass or consolidation. Prominent heart, vasculature and lung markings could indicate an underlying failure or volume overloa d process.
[2022-02-08] MEDS: ACETAMINOPHEN 325 MG TABLET PO PRN (10:37)
[2022-02-08] MEDS: GABAPENTIN 100 MG CAP PO SCH ×2 (13:12→21:07)
--- NOTE | 2022-02-08 15:33 | EKG ---
Test Date: 2022-02-06 Test Time: 18:56:30 [employer]er[employer] Supervisor: CELE MEASUREMENT RESULTS: Intervals: Rate: 88 VT: 272 QRSD: 80 QT: 372 QTc: 450 [place]: P: 64 VT: 272 QRS: 0 T: 128 INTERPRETIVE STATEMENTS: Sinus rhythm with 1st degree AV block Anterolateral infarct, age undetermined Abnormal ECG Compared to ECG 01/22/2022 10:19:55 T-wave abnormality no longer present Possible ischemia no longer present Myocardial infarct finding still present Electronically Signed On 02-08-22 15:29:57 DEVELOPMENT TRAINER by Ean Beavers
--- NOTE | 2022-02-08 17:27 | P.PN ---
Subjective Date of Service: 02/08/22 Chief Complaint: Dyspnea, COPD exacerbation No acute events overnight. She reports that her breathing has improved. She states that she still has some mild shortness of breath with exertion. Review of Systems 10-point ROS is otherwise unremarkable Respiratory: Cough, Shortness of Breath, Wheezing Physical Examination - Vital Signs Temperature: 98.5 F Blood Pressure: 154/70 Pulse: 78 Respirations: 20 Pulse Ox (%): 99 - Physical Exam General: Alert, In no apparent distress, Oriented x3 HEENT: Atraumatic, PERRLA, Mucous membr. moist/pink, EOMI, Sclerae nonicteric Neck: Supple, JVD not distended Respiratory: Expiratory wheezes (faint) Cardiovascular: No edema, Regular rate/rhythm, Normal S1 S2, No gallops, No rubs, No murmurs Gastrointestinal: Normal bowel sounds, Soft and benign, No tenderness, No rebound, No guarding Musculoskeletal: No clubbing Integumentary: No rashes Neurological: Normal speech, Cranial nerves 3-12 intact, Normal affect - Studies Microbiology Data (last 24 hrs): 02/06/22 20:18 Blood - Blood Anaerobic Blood Culture - Final 02/06/22 20:13 Blood - Blood Anaerobic Blood Culture - Final Assessment And Plan - Plan # Acute Hypoxic Respiratory Failure - likely secondary to Chronic Obstructive Pulmonary Disease Exacerbation - Evaluation thus far: - D-Dimer = 689 - Procalcitonin = 0.06 - Chest x-ray = "No peripheral mass or consolidation. Prominent heart, vasculature and lung markings could indicate an underlying failure or volume overload process." - CT chest = "No significant abnormality is displayed" - V/Q scan = "No evidence for pulmonary emboli. No ventilation defects seen and no significant air trapping identifiable" - Management plan: - Consulted Pulmonary Medicine - recommendations appreciated - Bronchodilators + steroids per Pulm - Consulted Respiratory Therapy - Supplemental oxygen to maintain SpO2 > 92% - Encouraged incentive spirometry - Home oxygen evaluation today # KDIGO Stage I Acute Kidney Injury on Chronic Kidney Disease Stage III - Nephrology consulted - recommendations appreciated - Creatinine = 1.63 -> 1.93 -> 2.11 -> 2.08 ->2.02 (baseline creatinine ~1.1- 1.2) - Urinalysis = trace blood, 2+ protein - Renal ultrasound = "No hydronephrosis or suspicious renal mass. Mild increased cortical echogenicity consistent with underlying medical renal disease." - Monitor creatinine and urine output - Renally dose medications # Steroid-Induced Hyperglycemia in Type 2 Diabetes Mellitus with Diabetic Neuropathy - Continue insulin glargine 60 units + correction scale insulin - Continue home gabapentin # Chronic Compensated Diastolic Congestive Heart Failure with Preserved Ejection Fraction - Does not appear to be in acute CHF exacerbation - Continue home carvedilol, furosemide - Daily weights - Strict I/O - Cardiac diet, 2 L fluid restriction, 2 g Na restriction # Coronary Artery Disease # Hypertension # Hyperlipidemia - Continue home amodipine, carvedilol, aspirin, rosuvastatin # Gastroesophageal Reflux Disease - Continue home pantoprazole Kristopher Ayon M.D.
[2022-02-08] MEDS: ROSUVASTATIN 10 MG TAB PO SCH (21:07)
--- NOTE | 2022-02-08 22:33 | PN ---
Date of Progress Note: 02/08/2022 Chief Complaint: Acute kidney injury, hyperkalemia, hyponatremia, COPD exacerbation, and shortness o f breath. Subjective: The patient was admitted to the hospital because of shortness of breath. She has histor y of diabetes mellitus and chronic kidney disease stage 3. Baseline creatinine level is 1.2. The susan chowdary has chronic diastolic congestive heart failure and COPD. She was admitted for COPD exacerbatio n. She was found to have acute kidney injury. The patient was taking Lasix and Aldactone, but diure tics were stopped because of acute kidney injury. Review of Systems: Denies new complaints. Denies fever or chills. Physical Examination: Lungs: Coarse breath sounds bilaterally. Few wheezes. Heart: S1, S2. Abdomen: Soft. Extremities: No edema. Impression And Plan: 1.Acute kidney injury due to overdiuresis. The patient was taken off diuretics because of acute kid karis injury. Continue steroids for chronic obstructive pulmonary disease exacerbation. 2.Proteinuria. The patient will have further workup when renal function is at baseline. 3.Hyperkalemia. Potassium level has improved. Potassium level is fluctuating due to uncontrolled d iabetes. Continue Kayexalate as needed. 4.Chronic obstructive pulmonary disease exacerbation. Continue inhalers and steroids as needed. 5.Diabetes mellitus, poorly controlled. Continue SSI. EB/MODL Voice ID: [id number] Report ID: [id number]
[2022-02-08 23:56] VITALS: O2SAT 99
[2022-02-09] MEDS: INSULIN -REGULAR HUMAN 50 UNIT/0.5 ML ML SQ SCH ×4 (00:02→12:10)
[2022-02-09 04:06] LABS: Absolute Lymphocytes (CBC) 0.6 K/uL (0.7-4.9); Hematocrit 26.3 % (36.0-45.0); Lymphocytes % 6.4 % (15.3-44.8); MCV 86.4 fL (80-100); MPV 8.5 fL (7.6-11.3); RBC Red Blood Cell Count 3.04 M/uL (3.86-4.86)
[2022-02-09] MEDS: carvediloL 25 MG TAB PO SCH (06:08)
[2022-02-09] MEDS: PANTOPRAZOLE 40MG TABLET PO SCH (06:09)
[2022-02-09 06:18] VITALS: BMI 43.1
--- NOTE | 2022-02-09 06:51 | P.PN ---
Subjective Date of Service: 02/09/22 Chief Complaint: Dyspnea, COPD exacerbation 81-year-old female with history of DM CKD III baseline cr 1.2, chronic diastolic congestive heart failure, COPD, diabetes mellitus type 2insulin- dependent, hypertension, CAD Pt presented to ER with SOB, pt on was recently admitted to [facility] for COPD exacerbation, as per daughter pt had LONG and uncontrolled BS there , she also reported that pt was on lasix and aldactone, and aldactone was stopped , pt was discharge on 01/27 as per daughter renal function improved on discharge this admission pt was hypoxic creatinine 1.63 baseline appears to be around 1.4, glucose 192 BNP 1202 procalcitonin 0.06 chest x-ray and CT chest without contrast negative for acute findings , today cr up to 2.1, no IV contrast or NSAID intake , also BS >500 Today Cr down to 1.6 BS bettert controlled Physical exam General: AAOx3, NAD, obese HEENT PERRLA, moist mucose membrane neck: supple, no elevated JVD CHEST; CTAB, no wheezes or rales HEART : RRR. Normal S1,2 no murmur or rub Abd: soft, Nt Ext: no edema Skin : No rash A/P #LONG possibly due to ATN +/- overdiuresis UA: proteinuria , with trace hematuria cont current dose lasix renal US : no hydronephrosis renal diet renal dose emdications #pseudohyponatremia BS control #Hyperkalemia resolved due to LONG and potassium shift BS control S/P kayexalate #CODP exacerbation cont inhlaers and steroids #poorly controlled DM SSI #HTN BP controlled now low salt diet cont current meds Total time spent 45 minutes including documentation, reviewing labs , placing orders and discussing with medical team Physical Examination - Vital Signs Temperature: 97.4 F Blood Pressure: 143/54 Pulse: 70 Respirations: 18 Pulse Ox (%): 99 Assessment And Plan Physician Review: Patient Assessed, Agree with Above Assessment and Plan
[2022-02-09] MEDS: INSULIN GLARGINE 100 UNIT/ML SQ SCH (08:38)
[2022-02-09] MEDS: ASPIRIN EC 81 MG TAB PO SCH (08:40)
[2022-02-09] MEDS: GABAPENTIN 100 MG CAP PO SCH (08:40)
[2022-02-09] MEDS: AMLODIPINE 10 MG TAB PO SCH (08:40)
[2022-02-09] MEDS: DULERA 200/5 (MOMETASONE/FORMOTEROL) INHALER IH SCH (08:41)
[2022-02-09] MEDS: ENOXAPARIN 30 MG/0.3 ML SQ SCH (08:41)
--- NOTE | 2022-02-09 08:50 | P.DS ---
Admission Date: 02/07/22 Discharge Date: 02/09/22 Disposition: ROUTINE DISCHARGE Discharge Condition: GOOD Reason for Admission: Dyspnea, COPD exacerbation Consultations: 1. Nephrology 2. Pulmonary Medicine Hospital Course: DIAGNOSES: # Acute Hypoxic Respiratory Failure - likely secondary to Chronic Obstructive Pulmonary Disease Exacerbation # KDIGO Stage I Acute Kidney Injury on Chronic Kidney Disease Stage III # Steroid-Induced Hyperglycemia in Type 2 Diabetes Mellitus with Diabetic Neuropathy # Chronic Compensated Diastolic Congestive Heart Failure with Preserved Ejection Fraction # Coronary Artery Disease # Hypertension # Hyperlipidemia # Gastroesophageal Reflux Disease # Microscopic Hematuria HOSPITAL COURSE: Ms. Gloria Longoria is a pleasant 81-year-old female with a past medical history significant for chronic obstructive pulmonary disease, coronary artery disease, type 2 diabetes mellitus, chronic diastolic congestive heart failure, chronic kidney disease stage III, hypertension, hyperlipidemia, and gastroesophageal reflux disease who was admitted to the [facility] on 02/07/2022 for shortness of breath. She was admitted to the Medicine service. Upon further evaluation, she was found to have an acute COPD exacerbation. Her chest x-ray revealed, "no peripheral mass or consolidation. Prominent heart, vasculature and lung markings could indicate an underlying failure or volume overload process." Her CT chest revealed, "no significant abnormality is displayed." Her V/Q scan revealed, "no evidence for pulmonary emboli. No ventilation defects seen and no significant air trapping identifiable." She was treated with bronchodilators and steroids, with significant improvement in her respiratory status. She was evaluated for home oxygen, and qualified. With the assistance of case management, this was arranged for her. In addition to her respiratory symptoms, she was also found to have an acute kidney injury and hyperkalemia. Nephrology was consulted and she was evaluated by Dr. Leahy. He felt that her acute kidney injury was secondary to overdiuresis. Her medications were adjusted and she demonstrated improvement in her creatinine and resolution of her hyperkalemia. Her hospital course was also complicated by steroidinduced hyperglycemia, which was controlled with subcutaneous insulin. Of note, she mentions that she has followed with Dr. Alvarez for years and will follow-up with him regarding her acute kidney injury. On 02/09/2022, she was seen on morning rounds and deemed medically stable for discharge. She was discharged with instructions to schedule follow-up appointments with her PCP (Dr. Cormier), her patient assessment coordinator (Dr. Villa), and her operations specialists (Dr. Alvarez). She was provided a prescription for prednisone. She and her daughter were given the opportunity to ask questions and reported no further questions. Furthermore, all questions were answered to the best of my ability. A copy of this discharge summary will be sent to the above providers to facilitate continuity of care. Today, I personally spent 25 minutes on her case, of which greater than 50% of the time was spent in patient education, counseling, and coordination of care as described above. - Physical Exam General: Alert, In no apparent distress, Oriented x3 HEENT: Atraumatic, PERRLA, Mucous membr. moist/pink, EOMI, Sclerae nonicteric Neck: Supple, JVD not distended Respiratory: Clear to auscultation bilaterally, without wheezes, rhonchi, or rales Cardiovascular: No edema, Regular rate/rhythm, Normal S1 S2, No gallops, No rubs, No murmurs Gastrointestinal: Normal bowel sounds, Soft and benign, No tenderness, No rebound, No guarding Musculoskeletal: No clubbing Integumentary: No rashes Neurological: Normal speech, Cranial nerves 3-12 intact, Normal affect Vital Signs/Physical Exam: Temp Pulse Resp BP Pulse Ox 97.8 F 79 18 153/68 H 93 02/09/22 07:49 02/09/22 07:49 02/09/22 07:49 02/09/22 07:49 02/09/22 07:49 Laboratory Data at Discharge: WBC 9.30 K/uL (4.3-10.9) 02/09/22 02:56 Hgb 8.5 g/dL (12.0-15.0) L 02/09/22 02:56 Hct 26.3 % (36.0-45.0) L 02/09/22 02:56 Plt Count 234 K/uL (152-406) 02/09/22 02:56 PT 13.6 SECONDS (9.5-12.5) H 02/06/22 19:45 INR 1.24 02/06/22 19:45 Sodium 138 mmol/L (136-145) 02/09/22 02:56 Potassium 4.0 mmol/L (3.5-5.1) 02/09/22 02:56 BUN 52 mg/dL (7-18) H 02/09/22 02:56 Creatinine 1.63 mg/dL (0.55-1.3) H 02/09/22 02:56 Glucose 303 mg/dL (74-106) H 02/09/22 02:56 Phosphorus Cancelled 02/08/22 07:00 Magnesium 2.1 mg/dL (1.8-2.4) 02/06/22 19:45 Total Bilirubin 0.5 mg/dL (0.2-1.0) 02/08/22 03:21 AST 13 U/L (15-37) L 02/08/22 03:21 ALT 20 U/L (12-78) 02/08/22 03:21 Alkaline Phosphatase 79 U/L (45-117) 02/08/22 03:21 Home Medications: Amlodipine Besylate 10 mg PO DAILY 02/07/22 Aspirin [Aspirin EC 81 MG] 81 mg PO DAILY 02/07/22 Bimatoprost [Lumigan Opthalmic Drops*] 1 gtt OPTH BEDTIME 02/07/22 Brimonidine Tartrate/Timolol [Combigan 0.2%-0.5% Eye Drops] 1 gtt OPTH BID 02/07/22 Carvedilol [Coreg] 25 mg PO BID 02/07/22 Cholecalciferol (Vitamin D3) [Vitamin D3] 1 cap PO DAILY 02/07/22 Cyanocobalamin (Vitamin B-12) [Vitamin B12] 5,000 mcg PO DAILY 02/07/22 Ferrous Sulfate [Iron] 325 mg PO DAILY 02/07/22 Furosemide 40 mg PO DAILY 02/07/22 Insulin Detemir [Levemir] 60 units SQ BID 02/07/22 Insulin Lispro [Humalog] See Rx Instructions .ROUTE .COMPLEX 02/07/22 Magnesium Oxide [Mag 0X*] 400 mg PO DAILY 02/07/22 Pantoprazole [Protonix Tab*] 40 mg PO DAILY 02/07/22 Pregabalin [Lyrica*] 75 mg PO DAILY 02/07/22 Rosuvastatin Calcium 40 mg PO BEDTIME 02/07/22 Sertraline HCl 100 mg PO DAILY 02/07/22 Trazodone [Desyrel*] 50 mg PO BEDTIME 02/07/22 predniSONE [Deltasone*] 10 mg PO BID 3 Days #6 tab 02/09/22 New Medications: predniSONE [Deltasone*] 10 mg PO BID 3 Days #6 tab Physician Discharge Instructions: 1. Please call and schedule an appointment with your PCP (Dr. Cormier) in 3-5 days - Your sugar levels may be elevated for the next few days while on prednisone - Please monitor your sugar levels closely and use the sliding scale insulin as we discussed - Please closely monitor your sugar/carbohydrate intake 2. Please call and schedule an appointment with your Insole Stiffener (Dr. Alvarez) in 5-7 days - There is a small amount of blood in your urine sample. Please repeat your urine study at your next Nephrology appointment. 3. Please call and schedule an appointment with your Rn Complex [facility] (Dr. Villa) in 5-7 days Diet: ADA Activity: Fall precautions Followup: Destin Villa MD [ACTIVE - CAN ADMIT] - Bird Alvarez DO [ACTIVE - CAN ADMIT] - Addie Cormier DO [ACTIVE - CAN ADMIT] - Time spent managing pt's care (in minutes): 25
[2022-02-09] MEDS ORDERED: predniSONE 10 MG TAB PO SCH (09:00)
[2022-02-09 11:46] VITALS: BP 149/66; TEMP 98.1
== END 2022-02-09 13:17 | disposition home or self-care (01) | DRG 190 ==
LOC: ER 18:18 → ERHOLD 02-07 00:06 → 4TH 02-07 01:04 → OBSVTOIN 02-07 13:04
PROVIDERS: ADMIT Internal Medicine; ATTEND Internal Medicine
DX: J44.1 Chronic obstructive pulmonary disease with (acute) exacerbation (principal); J96.01 Acute respiratory failure with hypoxia; I50.32 Chronic diastolic (congestive) heart failure; N17.9 Acute kidney failure, unspecified; I13.0 Hypertensive heart and chronic kidney disease with heart failure and stage 1 through stage 4 chronic kidney disease, or unspecified chronic kidney disease; Z68.41 Body mass index [BMI] 40.0-44.9, adult; E87.1 Hypo-osmolality and hyponatremia; N18.30 Chronic kidney disease, stage 3 unspecified; E11.22 Type 2 diabetes mellitus with diabetic chronic kidney disease; E11.40 Type 2 diabetes mellitus with diabetic neuropathy, unspecified; E11.65 Type 2 diabetes mellitus with hyperglycemia; K21.9 Gastro-esophageal reflux disease without esophagitis; E78.5 Hyperlipidemia, unspecified; E87.5 Hyperkalemia; E66.9 Obesity, unspecified; I25.10 Atherosclerotic heart disease of native coronary artery without angina pectoris; T50.2X5A Adverse effect of carbonic-anhydrase inhibitors, benzothiadiazides and other diuretics, initial encounter; T38.0X5A Adverse effect of glucocorticoids and synthetic analogues, initial encounter; R31.29 Other microscopic hematuria; Z88.1 Allergy status to other antibiotic agents; Z79.4 Long term (current) use of insulin; Z79.52 Long term (current) use of systemic steroids; Z90.49 Acquired absence of other specified parts of digestive tract; Z79.82 Long term (current) use of aspirin; Z79.84 Long term (current) use of oral hypoglycemic drugs; Z90.710 Acquired absence of both cervix and uterus; Z79.899 Other long term (current) drug therapy; Z85.038 Personal history of other malignant neoplasm of large intestine; Z20.822 Contact with and (suspected) exposure to COVID-19
CPT/HCPCS: 0240U; 36415; 71045; 71250; 76770; 78582; 80048; 80053; 80076; 81003; 81015; 82550; 82570; 82947; 83036; 83605; 83735; 83880; 83935; 83970; 84100; 84132; 84145; 84156; 84300; 84443; 84484; 85025; 85379; 85610; 87040; 93005; 96374; 99284; A9540; A9558; G0378; J1650; J1815; J2930; J3535; J7040; J7512; J7614

== ENCOUNTER 2022-03-04 15:45 | Observation (INO) | payer OTHER ==
--- OUTSIDE RECORDS SUMMARY | 2022-03-04 15:56 | XMS REPORT | Continuity of Care Document ---
:1940 Author Organization [facility] t Address [address] [place] [address] Care Team Providers Name Role Phone ADDIE SLAUGHTER Primary Care Physician Unavailable Addie Slaughter Attending Clinician Unavailable Ramiro Wu MD, I. Attending Clinician [phone] ASTRID WOODY Attending Clinician Unavailable Harvey Jackman MD Attending Clinician Joann Gorman MD Attending Clinician JOANN GORMAN Attending Clinician Unavailable Miller_S_AH Attending Clinician Unavailable Gypsyayo_A_AH Attending Clinician Unavailable RAMIRO WU I. Admitting Clinician Unavailable ASTRID WOODY Admitting Clinician Unavailable JOANN GORMAN Admitting Clinician Unavailable Miller_S_AH Admitting Clinician Unavailable Curly-Mbayo_A_AH Admitting Clinician Unavailable Payers Payer Name Policy Type Policy Number Effective Date Expiration Date Carmen meredith [facility] [id number] 2020 00:00:00 AARP MCR [id number] 2021 [facility] ADVANTAGE 00:00:00 [facility] C1 [id number] 2019 [facility] 00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 coronary and graft Medic al angioplast Center y [id number] Need for Problem Comm on assistance Spirit due to - CHI unsteady [facility] [id number] Constipati Problem Com mon on, Spirit unspecifie - CHI d constipati [facility] on type Medical [place] [id number] Chronic Problem Common bronchitis [facility] , - CHI unspecifie [facility] chronic [facility] bronchitis Medica l type Center [id number] Gastroesop Problem Co mmon hageal [facility] reflux - [facility], [facility] Med[facility] not Center specified [id number] Essential Problem Comm on hypertensi [facility] on [facility] [id number] Mixed Problem Common hyperlipid [facility] emia [facility] [id number] Lymphedema Problem C ommon [id number] of both Spirit lower - [facility] extremitie [facility] [id number] Iron Problem Common deficiency [facility] anemia, - CHI unspecifie [facility] iron 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 [id number] Severe Problem Common major Spirit depression - CHI [facility] [id number] Depression Problem Co mmon with Spirit anxiety - CHI [facility] [id number] Anxiety Problem [facility] - [facility] [id number] Primary Problem Commo n osteoarthr Spirit itis of - CHI both knees [facility] [id number] Obstructiv Problem Com mon e sleep Spirit apnea - CHI syndrome [facility] [id number] Hypokalemi Problem Com mon a Spirit - CHI [facility] [id number] 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 [facility] coronary Medical artery Center without angina pectoris [id number] residential Problem Com mon (current) Spirit use of - CHI insulin [facility] [id number] Type 2 Problem Common diabetes Spirit mellitus - CHI without St complicati [facility] [id number] History of Problem Co mmon glaucoma Spirit - CHI [facility] 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 g of this Medical note Center might [...] Active 2021-[address] [facility] (Sulfona ty to 03-24 [facility] mide adverse 00:00: Medical Antibiot reaction 00 Center ics) s Sulfa Propensi Active 2021-[address] (Sulfona ty to 1-04 [facility] mide adverse 00:00: Medical Antibiot reaction 00 Center ics) s SULFA Allergy Active 2021-03 [facility] (SULFONA 1-04 MIDE 00:00: ANTIBIOT 00 ICS) Sulfa DA Active [place] [facility] (Sulfona 7-25 [place] mide 00:00: d Antibiot 00 Medical ics) Center NO KNOWN Allergy Active [facility] Family History Family Member Diagnosis Comments Start Date Stop Date Source Natural mother Cancer [facility] Social History Social Habit Start Date Stop Date Quantity Comments Source History of Tobacco [facility] - Use [facility] History SDOH [facility] Alcohol Std Drinks Medica l Center History SDOH [facility] Alcohol Binge Medical [facility] History SDOH [facility] Alcohol Comment Medical C enter History SDOH [facility] Transport Non-Med Medical Center History SDOH [facility] Housing Places Medical Ce nter Lived History [facility] 2022-01-23 2022-01-[address] [facility] Transport Med 00:00:00 00:00:[address] History [facility] 2022-01-23 2022-01-[address] [facility] Housing Unable to 00:00:00 00:00:00 Medical Center Pay History [facility] 2022-01-23 2022-01-[address] [facility] Housing Homeless 00:00:00 00:00:00 Medical Center Last Year Alcohol intake 2022-01-23 2022-01-[address] [facility] 00:00:00 00:00:00 non-drinker Medical Cente r (finding) Exposure to 2022-01-12 2022-01-[address] [facility] SARS-CoV-2 (event) 00:00:00 13:40:00 Medica l Center History [facility] 2020-07-04 2020-07-[address] [facility] Alcohol Frequency 00:00:00 00:00:00 Medical Center Tobacco use and 2020-07-03 2020-07-[address] [facility] exposure 00:00:00 00:00:00 Medical Center Sex Assigned At [address] [facility] 00:00:00 00:00:00 Medical Center Smoking Status Start Date Stop Date Source Never smoker [facility] Medications Ordered Filled Start Stop Current Ordering Indication Dosage Frequency Signature Comments Components Source Medication Medication Date Date Medication? Clinician (SIG) Name Name Continuous Continuous 2021-03 No Continuous Glucose Glucose -21 Glucose Monitor Sup Monitor Sup 00:00: Monitor - - 00 Sup - Benzonatate Benzonatate 2021-03- No TID Benzonatat 200 MG 200 MG 04-07 e 200 MG 00:00: 00:00 00 :00 Benzonatate Benzonatate 2021-03- No TID Benzonatat 200 MG 200 MG 04-07 e 200 MG 00:00: 00:00 00 :00 FreeStyle FreeStyle 2021-03 No FreeStyle Jonna 2 Jonna 2 1-14 Jonna 2 [place] 00:00: [place] - 00 FreeStyle FreeStyle 2021-03 No FreeStyle Jonna Jonna 1-14 Jonna [place] - 00:00: [place] - 00 FreeStyle FreeStyle 2021-03 No FreeStyle Jonna 2 Jonna 2 1-14 Jonna 2 [place] - 00:00: [place] - 00 FreeStyle FreeStyle 2021-03 No FreeStyle Jonna Jonna 1-14 Jonna [place] - 00:00: [place] - 00 aspirin 81 2021-03 Yes 81mg QD Take [address] MG EC 07 by mouth [facility]ukes tablet 18:06: daily. [address] fluticasone 2021-03 Yes 2{puff} QD Inhale [address] propion-jaylene 1-07 puffs by Luke s meteroL 18:06: mouth via Medic al (ADVAIR) 48 inhaler Center 250-50 daily . mcg/dose diskus inhaler amLODIPine 2021-03 Yes 5mg QD Take [address] (NORVASC) 5 1-07 by mouth Luke s MG tablet 18:06: daily. Medica l 48 Center dorzolamide 2021-03 Yes 1[drp] Q.[id number] [address] (TRUSOPT) 2 -07 [id number] (three) Lukes % 18:06: 3D times Medical ophthalmic 48 daily. [place] solution insulin 2021-03 Yes 70U Q.5D Inject 70 CHI S t detemir 1-07 Units Lukes U-100 18:06: subcutaneo Medica l (LEVEMIR) 48 usly 2 Center 100 unit/mL (two) (3 mL) InPn times injection daily . rosuvastati 2021-03 Yes 40mg QD Take [address] n (CRESTOR) 1-07 by mouth Luke s 40 MG 18:06: nightly . Medical tablet 48 Center bimatoprost 2021-03 Yes 1[drp] QD Place 1 [...] Med ical 48 (swelling) Center . carvediloL 2022-1 Yes 25mg Q.5D Take [address] (COREG) 25 1-07 by mouth 2 Leah es MG tablet 18:06: (two) Medical 48 times Center daily. traZODone 2021-03 Yes 50mg QD Take [address] (DESYREL) 1-07 by mouth Lukes 50 MG 18:06: nightly. Medical tablet 48 [place] sertraline 2021-03 Yes 100mg QD Take [address] (ZOLOFT) 1-07 mg by [facility]ukes 100 MG 18:06: mouth Medical tablet 48 daily. [place] cyanocobala 2021-03 Yes 5000ug QD Take 5,[address] min 1-07 mcg by Lukes (vitamin 18:06: mouth Medical B-12) 1000 48 daily. [place] MCG tablet aspirin 81 2021-03 Yes 81mg QD Take [address] MG EC 1-07 by mouth [facility]ukes tablet 18:06: daily. Medical 48 Center fluticasone 2021-03 Yes 2{puff} QD Inhale [address] propion-jaylene 1-07 puffs by Luke s meteroL 18:06: mouth via Medic al (ADVAIR) 48 inhaler Center 250-50 daily . mcg/dose diskus inhaler amLODIPine 2021-03 Yes 5mg QD Take [address] (NORVASC) 5 1-07 by mouth Luke s MG tablet 18:06: daily. Medica l 48 [place] dorzolamide 2021-03 Yes 1[drp] Q.[id number] [address] (TRUSOPT) 2 1-07 [id number] (three) Lukes % 18:06: 3D times Medical ophthalmic 48 daily. [place] solution insulin 2021-03 Yes 70U Q.5D Inject 70 CHI S t detemir 1-07 Units [facility]ukes U-100 18:06: subcutaneo Medica l (LEVEMIR) 48 usly 2 Center 100 unit/mL (two) (3 mL) InPn times injection daily . rosuvastati 2021-03 Yes 40mg QD Take [address] n (CRESTOR) 1-07 by mouth Luke s 40 MG 18:06: nightly . Medical tablet 48 [place] bimatoprost 2021-03 Yes 1[drp] QD Place 1 [...] daily. Center MCG tablet gabapentin 2021-03 800mg Q.[id number] Take [address] (NEURONTIN) 03-27 [id number] mg by Lukes 800 MG 16:45: 00:00 3D mouth 3 Medical tablet 56 :00 (three) Center times daily. metoprolol 2021-03 No 100mg Q.5D Take [address] tartrate 03-27 mg by Lukes (LOPRESSOR) 16:45: 00:00 mouth [...] :00 times Center tablet daily. traMADoL 2021-03 50mg Take [address] (ULTRAM) 50 03-27 by mouth Leah es mg tablet 16:45: 00:00 every 6 Medi ashley 56 :00 (six) Center hours as needed for Pain. gabapentin 2021-03 No 800mg Q.[id number] Take [address] (NEURONTIN) 03-27 [id number] mg by Lukes 800 MG 16:45: 00:00 3D mouth 3 Medical tablet 56 :00 (three) Center times daily. metoprolol 2021-03 No 100mg Q.5D Take [address] tartrate 03-27 mg by Lukes (LOPRESSOR) 16:45: 00:00 mouth [...] 56 :00 times Center tablet daily. traMADoL 2021-03- No 50mg Take 50 mg CH I [...] 150mg QD Take [address] (LYRICA) 1-07 capsule Lukes 150 MG 00:00: (150 mg Medical capsule 00 total) by Center mouth daily Reduce to once daily due to her kidney function. Max Daily Amount: 150 mg clopidogreL 2021-03 Yes 75mg QD Take [address] (PLAVIX) 75 1-07 tablet (75 Susu kes mg tablet 00:00: mg total) Med ical 00 by mouth Center daily. traMADoL 2021-03 Yes 50mg Take [address] (ULTRAM) 50 1-07 tablet (50 Susu kes mg tablet 00:00: [...] QD Take [address] (PLAVIX) 75 -07 tablet (75 Susu kes mg tablet 00:00: mg total) Med ical 00 by mouth Center daily. cefdinir 2021-03- No 300mg Q.5D Take 1 CHI S t (OMNICEF) 03-27 capsule Lukes 300 MG 00:00: 23:59 (300 mg Medical capsule 00 :00 total) by Center mouth 2 (two) times daily for 3 days. metroNIDAZO 2021-03- No 500mg Q.[id number] Take [address] LE (FLAGYL) 03-27- [id number] tablet Lukes 500 MG 00:00: 23:59 3D (500 mg Medical tablet 00 :00 total) by Center mouth 3 (three) times daily for 3 days. cefdinir 2021-03- No 300mg Q.5D Take 1 CHI S t (OMNICEF) 03-27 capsule [facility]ukes 300 MG 00:00: 23:59 (300 mg Medical capsule 00 :00 total) by Center mouth 2 (two) times daily for 3 days. metroNIDAZO 2021-03 No 500mg Q.[id number] Take [address] LE (FLAGYL) 03-27 11-10 [id number] tablet Lukes 500 MG 00:00: 23:59 3D [...] 0-27 t} MG 00:00: 00 Novofine Novofine 2021-0 No Novofine Pen Needle Pen Needle 9-22 Pen Needle 32G X 6 MM 32G X 6 MM 00:00: 32G X 6 MM 00 Pregabalin Pregabalin 2021-0 No 1{capsu BID Pregabalin 75 MG 75 MG 9-22 le} 75 MG 00:00: 00 Novofine Novofine 2021-0 No Novofine Pen Needle Pen Needle 9-22 Pen Needle 32G X 6 MM 32G X 6 MM 00:00: 32G X 6 MM 00 Pregabalin Pregabalin 2021-0 No 1{capsu BID Pregabalin 75 MG 75 MG 9-22 le} 75 MG 00:00: 00 Novofine Novofine 2022-0 No Novofine Pen Needle Pen Needle 9-22 Pen Needle 32G X 6 MM 32G X 6 MM 00:00: 32G X 6 MM 00 Pregabalin Pregabalin 2022-0 No 1{capsu BID Pregabalin 75 MG 75 MG 9 le} 75 MG 00:00: 00 Novofine Novofine [...] 100-10 MG/5ML MG/5ML 00 MG/5ML guaiFENesin guaiFENesin 2020-03 No 5{ml} QID guaiFENesi -Codeine -Codeine 0-01 n-Codeine 100-10 100-10 00:00: 100-10 MG/5ML MG/5ML 00 MG/5ML guaiFENesin guaiFENesin 2020-03 No 5{ml} QID guaiFENesi -Codeine -Codeine 0-01 n-Codeine 100-10 100-10 00:00: 100-10 MG/5ML MG/5ML 00 MG/5ML guaiFENesin guaiFENesin 2020-03 No 5{ml} QID guaiFENesi -Codeine -Codeine 0-01 n-Codeine 100-10 100-10 00:00: 100-10 MG/5ML MG/5ML 00 MG/5ML guaiFENesin guaiFENesin 2020-03 No 5{ml} QID guaiFENesi -Codeine -Codeine 0-01 n-Codeine 100-10 100-10 00:00: 100-10 MG/5ML MG/5ML 00 MG/5ML guaiFENesin guaiFENesin 2020-03 No 5{ml} QID guaiFENesi -Codeine -Codeine 0-01 n-Codeine 100-10 100-10 00:00: 100-10 MG/5ML MG/5ML 00 MG/5ML lisinopriL 1-0 2- No 5mg QD Take [address] (PRINIVIL,Z 4-23 04-23 tablet (5 Susu kes ESTRIL) 5 00:00: 23:59 mg total) Me dical MG tablet 00 :00 by mouth Center daily. lisinopriL 2021- No 5mg QD Take [address] (PRINIVIL,Z 4-23 04-23 tablet (5 Susu kes ESTRIL) 5 00:00: 23:59 mg total) Me dical MG tablet 00 :00 by mouth Center daily. lisinopriL 2021- No 5mg QD Take [address] (PRINIVIL,Z 4-23 -23 tablet (5 Susu kes ESTRIL) 5 00:00: [...] daily. Medica l 39 Center aspirin 81 0 Yes 81mg QD Take 81 mg C [...] Medica l 39 Center dorzolamide Yes 1[drp] Q.[id number] (TRUSOPT) 2 4-22 [id number] (three) Lukes % 12:18: 3D times Medical ophthalmic 39 daily. Center solution gabapentin Yes 800mg Q.[id number] Take [address] (NEURONTIN) 4-22 [id number] mg by L ukes 800 MG 12:18: [...] % % 7-09 5 % 00:00: 00 Levemir Levemir Yes Na Slaughter inject 66 C ommon FlexTouch FlexTouch units Spir it every - CHI night as [facility] Combigan Combigan No Combigan 0.2-0.5 % [...] FreeStyle FreeStyle No FreeStyle Jonna Jonna Jonna [place] - Lumigan Lumigan No 1{drop_ QD Lumigan [...] FreeStyle FreeStyle No FreeStyle Jonna Jonna Jonna [place] - traZODone traZODone No 1{table QD traZODone [...] FreeStyle FreeStyle No FreeStyle Jonna Jonna Jonna [place] - Furosemide Furosemide No 1{table QD Furosemide [...] FreeStyle FreeStyle No FreeStyle Jonna Jonna Jonna [place] - traMADol traMADol No 1{table traMADol HCl [...] FreeStyle FreeStyle No FreeStyle Jonna Jonna Jonna [place] - traMADol traMADol No 1{table traMADol HCl [...] FreeStyle FreeStyle No FreeStyle Jonna Jonna Jonna [place] - Combigan Combigan No Combigan 0.2-0.5 % [...] MG le_with 400 MG _a_meal } Lumigan Palmiraigan No 1{drop_ QD Lumigan 0.01 % 0.01 [...] 0.01 % into_af 0.01 % fected_ eye_in_ the_evrudy neri} Spironolact Spironolact No Spironolac one 25 [...] 20 MG 20 MG t} 20 MG Advair Advair No 1{puff} BID Advair Diskus Diskus Diskus 250-50 250-50 250-50 MCG/DOSE MCG/DOSE MCG/DOSE Pregabalin Pregabalin No 1{capsu BID Pregabalin 150 MG 150 MG le} 150 MG Spironolact Spironolact No Spironolac one 25 MG one 25 MG tone 25 MG Carvedilol Carvedilol No 1{table BID Carvedilol 25 MG 25 MG t_with_ 25 MG food} Nitroglycer Nitroglycer No Nitroglyce in 0.4 MG in 0.4 MG rin 0.4 MG Combigan Combigan No Combigan 0.2-0.5 % 0.2-0.5 % 0.2-0.5 % traZODone traZODone No 1{table QD traZODone HCl 50 MG HCl 50 MG t_at_be HCl 50 MG dtime_a s_neede d} Magnesium Magnesium No 1{capsu QD Magnesium 400 MG 400 MG le_with 400 MG _a_meal } Sertraline Sertraline No Sertraline HCl 100 MG HCl 100 MG HCl 100 MG Lumigan Lumigan No 1{drop_ QD Lumigan [...] 10 t} Besylate MG MG 10 MG Ipratropium Ipratropium No 3{ml_as QID Ipratropiu -Albuterol -Albuterol _needed m-Albutero 0.5-2.5 (3) 0.5-2.5 (3) } l 0.5-2.5 MG/3ML MG/3ML (3) MG/3ML Nebulizer - Nebulizer - No Nebulizer - Furosemide Furosemide No 1{table QD Furosemide 40 MG 40 MG t} 40 MG Pantoprazol Pantoprazol No Pantoprazo e Sodium 40 e Sodium 40 le Sodium MG MG 40 MG Novofine Novofine No Novofine Pen Needle Pen Needle Pen Needle 32G X 6 MM 32G X 6 MM 32G X 6 MM Albuterol Albuterol No 3{ml_as QID Albuterol Sulfate [...] 20 MG 20 MG t} 20 MG Rosuvastati Rosuvastati No 1{table QD Rosuvastat n Calcium n Calcium t} in Calcium 40 MG 40 MG 40 MG Clopidogrel Clopidogrel No 1{table QD Clopidogre Bisulfate Bisulfate t} l 75 MG 75 MG Bisulfate 75 MG Metoclopram Metoclopram No 1{table TID Metoclopra mateus HCl 5 mateus HCl 5 t_befor mide HCl 5 MG MG e_meals MG } Lumigan Lumigan No 1{drop_ QD Lumigan 0.01 % 0.01 % into_af 0.01 % fected_ eye_in_ the_eve daron} Spironolact Spironolact No Spironolac one 25 MG one 25 MG tone 25 MG Advair Advair No 1{puff} BID Advair Diskus Diskus Diskus 250-50 250-50 250-50 MCG/DOSE MCG/DOSE MCG/DOSE traZODone traZODone No 1{table QD traZODone HCl 50 MG HCl 50 MG t_at_be HCl 50 MG dtime_a s_neede d} Combigan Combigan No Combigan 0.2-0.5 % 0.2-0.5 % 0.2-0.5 % Levemir Levemir No BID Levemir FlexTouch FlexTouch FlexTouch 100 UNIT/ML 100 UNIT/ML 100 UNIT/ML Pregabalin Pregabalin No 1{capsu BID Pregabalin 150 MG 150 MG le} 150 MG FreeStyle FreeStyle No FreeStyle Jonna 2 Jonna 2 Jonna 2 [place] - traMADol traMADol No 1{table traMADol HCl 50 MG HCl 50 MG t_as_ne HCl 50 MG eded} Ipratropium Ipratropium No 3{ml_as QID Ipratropiu -Albuterol -Albuterol _needed m-Albutero 0.5-2.5 (3) 0.5-2.5 (3) } l 0.5-2.5 MG/3ML MG/3ML (3) MG/3ML Nitroglycer Nitroglycer No Nitroglyce in 0.4 MG in 0.4 MG rin 0.4 MG Pantoprazol Pantoprazol No Pantoprazo e Sodium 40 e Sodium 40 le Sodium MG MG 40 MG Magnesium Magnesium No 1{capsu QD Magnesium 400 MG 400 MG le_with 400 MG _a_meal } Albuterol Albuterol No 3{ml_as QID Albuterol Sulfate Sulfate _needed Sulfate (2.5 (2.5 } (2.5 MG/3ML) MG/3ML) MG/3ML) 0.083% 0.083% 0.083% Carvedilol Carvedilol No 1{table BID Carvedilol 25 MG 25 MG t_with_ 25 MG food} Aspirin 81 Aspirin 81 No 1{table QD Aspirin 81 MG MG t} MG metFORMIN metFORMIN No 2{table BID metFORMIN HCl 500 MG HCl 500 MG t_with_ HCl 500 MG a_meal} FreeStyle FreeStyle No FreeStyle Jonna Jonna Jonna [place] - Furosemide Furosemide No 1{table QD Furosemide 40 MG 40 MG t} 40 MG Novofine Novofine No Novofine Pen Needle Pen Needle Pen Needle 32G X 6 MM 32G X 6 MM 32G X 6 MM Continuous Continuous No Continuous Glucose Glucose Glucose Monitor Sup Monitor Sup Monitor - - Sup - amLODIPine amLODIPine No 1{table QD amLODIPine Besylate 10 Besylate 10 t} Besylate MG MG 10 MG Sertraline Sertraline No Sertraline HCl 100 MG HCl 100 MG HCl 100 MG guaiFENesin guaiFENesin No 10{ml_a QID guaiFENesi -DM 100-10 -DM 100-10 s_neede n-DM MG/5ML MG/5ML d} 100-10 MG/5ML Nebulizer - Nebulizer - No Nebulizer - predniSONE predniSONE No 1{table BID predniSONE 20 MG 20 MG t} 20 MG Immunizations Ordered Immunization Filled Immunization Date Status Commen ts Source Name Name FLUZONE HIGH DOSE FLUZONE HIGH DOSE 2022-01-14 Completed [facility] OVER 65 OVER 65 11:55:00 - [facility] FLUZONE HIGH DOSE FLUZONE HIGH DOSE 2022-01-14 Completed [facility] OVER 65 OVER 65 11:55:00 - [facility] FLUZONE HIGH DOSE FLUZONE HIGH DOSE 2022-01-14 Completed [facility] OVER 65 OVER 65 11:55:00 - [facility] FLUZONE HIGH DOSE FLUZONE HIGH DOSE 2022-01-14 Completed [facility] OVER 65 OVER 65 11:55:00 - [facility] FLUZONE HIGH DOSE FLUZONE HIGH DOSE 2022-01-14 Completed [facility] OVER 65 OVER 65 11:55:00 - [facility] Vital Signs Vital Name Observation Time Observation Value Comments Source HEIGHT 2020-07-03 17:00:00 154.9 cm WEIGHT 2020-07-03 17:00:00 103.556 kg HEIGHT 2022-01-22 13:56:00 157.5 cm WEIGHT 2022-01-22 13:56:00 90.719 kg HEIGHT 2022-01-22 13:56:00 157.5 cm WEIGHT 2022-01-22 13:56:00 90.719 kg HEIGHT 2022-01-22 13:56:00 157.5 cm WEIGHT 2022-01-22 13:56:00 90.719 kg height 2022-01-14 10:20:00 62 [in_i] [facility] weight 2022-01-14 10:20:00 230.0 [lb_av] [facility] temperature 2022-01-14 10:20:00 97.3 [degF] [facility] bmi 2022-01-14 10:20:00 42.06 kg/m2 [facility] oximetry 2022-01-14 10:20:00 95 % [facility] respiratory rate 2022-01-14 10:20:00 16 /min Comm on [facility] blood pressure 2022-01-14 10:20:00 136 mm[Hg] Common [facility] - systolic [facility] blood pressure 2022-01-14 10:20:00 78 mm[Hg] Common [facility] diastolic [facility] height 2021-12-10 11:40:00 62 [in_i] Common [facility] weight 2021-12-10 11:40:00 224 [lb_av] [facility] bmi 2021-12-10 11:40:00 40.97 kg/m2 [facility] height 2021-09-30 12:00:00 62 [in_i] [facility] weight 2021-09-30 12:00:00 224 [lb_av] [facility] bmi 2021-09-30 12:00:00 40.97 kg/m2 [facility] height 2021-09-08 13:00:00 62 [in_i] [facility] weight 2021-09-08 13:00:00 223 [lb_av] [facility] temperature 2021-09-08 13:00:00 97.5 [degF] [facility] bmi 2021-09-08 13:00:00 40.78 kg/m2 [facility] oximetry 2021-09-08 13:00:00 96 % [facility] respiratory rate 2021-09-08 13:00:00 20 /min Comm on [facility] blood pressure 2021-09-08 13:00:00 150 mm[Hg] Common [facility] systolic [facility] blood pressure 2021-09-08 13:00:00 88 mm[Hg] [facility] - diastolic [facility] height 2021-06-02 13:00:00 62 [in_i] Common S pirit - [facility] weight 2021-06-02 13:00:00 242 [lb_av] Common [facility] temperature 2021-06-02 13:00:00 98.5 [degF] Common S [facility]irit - [facility] bmi 2021-06-02 13:00:00 44.26 kg/m2 [facility] oximetry 2021-06-02 13:00:00 91 % Common [facility] blood pressure 2021-06-02 13:00:00 120 mm[Hg] Common [facility] - systolic [facility] blood pressure 2021-06-02 13:00:00 70 mm[Hg] [facility] - diastolic [facility] height 2021-06-02 13:40:00 62 [in_i] Common [facility] weight 2021-06-02 13:40:00 242 [lb_av] Common [facility] temperature 2021-06-02 13:40:00 98.5 [degF] Common [facility] bmi 2021-06-02 13:40:00 44.26 kg/m2 Common [facility] oximetry 2021-06-02 13:40:00 91 % Common [facility] respiratory rate 2021-06-02 13:40:00 18 /min Comm on [facility] - [facility] blood pressure 2021-06-02 13:40:00 120 mm[Hg] [facility] - systolic [facility] blood pressure 2021-06-02 13:40:00 70 mm[Hg] [facility] - diastolic [facility] height 2021-03-04 11:00:00 62 [in_i] Common S [facility] weight 2021-03-04 11:00:00 220 [lb_av] Common S [facility] bmi 2021-03-04 11:00:00 40.23 kg/m2 [facility] height 2020-12-19 16:40:00 62 [in_i] [facility] weight 2020-12-19 16:40:00 220 [lb_av] [facility] bmi 2020-12-19 16:40:00 40.23 kg/m2 [facility] HEIGHT 2020-07-03 17:00:00 154.9 cm WEIGHT 2020-07-03 17:00:00 103.556 kg Systolic blood 2022-01-25 16:00:00 120 mm[Hg] [facility] Diastolic blood 2022-01-25 16:00:00 56 mm[Hg] [facility] Heart rate 2022-01-25 16:00:00 76 /min [facility] Body temperature 2022-01-25 16:00:00 36.78 Leonor [facility] Respiratory rate 2022-01-25 16:00:00 18 /min [facility] Oxygen saturation in 2022-01-25 16:00:00 91 /min [facility] Arterial blood by Medical Ce nter Pulse oximetry Body height 2022-01-23 01:22:00 157.5 cm [facility] Body weight 2022-01-23 01:22:00 104.327 kg [facility] BMI 2022-01-23 01:22:00 42.07 kg/m2 [facility] Procedures Procedure Date / Time Performed Performing Clinician Sourwilner e POCT-GLUCOSE METER 2022-01-25 12:45:00 [facility]SE [facility] 2022-01-25 07:38:00 Vita Joann alyx [facility] CBC (HEMOGRAM ONLY) 2022-01-25 04:46:00 Joann Gorman [facility] BASIC METABOLIC PANEL 2022-01-25 04:46:00 Joann Gorman Alcon [facility] MAGNESIUM 2022-01-25 04:46:00 [facility]ita[facility] 12-[facility]AD 2022-01-25 01:14:58 Unknown, 7 [facility] ECG 12-LEAD 2022-01-25 01:14:58 Unknown, 7 [facility] ECG 12-LEAD 2022-01-25 01:14:58 Unknown, 7 [facility] ECG 12-LEAD 2022-01-25 01:14:09 Unknown, 7 [facility] ECG 12-LEAD 2022-01-25 01:14:09 Unknown, 7 [facility] ECG 12-LEAD 2022-01-25 01:14:09 Unknown, 7 [facility] ECG 12-LEAD 2022-01-25 01:09:07 Unknown, 7 [facility] ECG 12-LEAD 2022-01-25 01:09:07 Unknown, 7 [facility] POCT-GLUCOSE METER 2022-01-24 22:02:00 Vita, [facility] POCT-GLUCOSE METER 2022-01-24 16:38:00 Vita, [facility] 2D ECHO W/ DOPPLER 2022-01-24 12:58:06 Alison Pope [facility] (CW/PW/COLOR) [facility] POCT-GLUCOSE METER 2022-01-24 12:36:00 Vita, [facility] POCT-GLUCOSE METER 2022-01-24 08:08:00 Vita, [facility] CBC (HEMOGRAM ONLY) 2022-01-24 04:40:00 Vita, [facility] BASIC METABOLIC PANEL 2022-01-24 04:40:00 Vita, Joann Yunielmary loua I [facility] MAGNESIUM 2022-01-24 04:40:00 [facility] POCT-GLUCOSE METER 2022-01-23 21:53:00 Vita, [facility] POCT-GLUCOSE METER 2022-01-23 17:16:00 Vita, [facility] XR CHEST 1 VIEW PORTABLE 2022-01-23 15:02:00 [facility] B-TYPE NATRIURETIC FACTOR 2022-01-23 13:57:00 Rosa Rockwell [facility] (BNP) [facility] VENOUS DOPPLER LEG, RIGHT 2022-01-23 12:00:00 Vita, [facility] yifan [facility] POCT-GLUCOSE METER 2022-01-23 11:55:00 Vita, [facility] POCT-GLUCOSE METER 2022-01-23 08:42:00 Vita, [facility] MRA HEAD WITHOUT IV 2022-01-23 08:18:00 Vita, [facility] MRA NECK WITHOUT IV 2022-01-23 08:18:00 Vita, [facility] MR BRAIN WITHOUT IV 2022-01-23 08:18:00 Vita, [facility] POCT-GLUCOSE METER 2022-01-23 06:25:00 Vita, [facility] HEMOGLOBIN A1C 2022-01-23 05:59:00 Vita, [facility] CBC (HEMOGRAM ONLY) 2022-01-23 05:59:00 Vita, [facility] BASIC METABOLIC PANEL 2022-01-23 05:59:00 Vita, [facility] MAGNESIUM 2022-01-23 05:59:00 Vita, [facility] VITAMIN B12 2022-01-23 05:59:00 Vita, [facility] RPR 2022-01-23 05:59:00 Vita, Joann Rondon [facility] HC LAB HIV-1 AG W/HIV-1&2 2022-01-23 05:59:00 Vita, Joann pastrana [facility] LIPID PANEL 2022-01-23 05:59:00 TscAlison lim [facility] SODIUM, RANDOM URINE 2022-01-23 01:28:00 Vita, Joann Hymary loua [facility] CREATININE, RANDOM URINE 2022-01-23 01:28:00 Vita, Joann Hymary loua [facility] UREA NITROGEN, RANDOM 2022-01-23 01:28:00 Vita, [facility] POCT-GLUCOSE METER 2022-01-22 23:10:00 Vita, Joann Bricemary loua [facility] US RENAL COMPLETE 2022-01-22 21:35:00 Vita, Joann Hymary loua [facility] SARS-COV2/RT-PCR ([facility] & 2022-01-22 19:22:00 [facility] [place] URINE CULTURE 2022-01-22 14:57:00 Harvey Jackman [facility] CBC W/PLT COUNT & AUTO 2022-01-22 14:57:00 Harvey Jackman CH, I [facility] COMPREHENSIVE METABOLIC 2022-01-22 14:57:00 Harvey Jackman [facility] URINALYSIS W/ REFLEX 2022-01-22 14:57:00 Harvey Jackman [facility] URINE CULTURE [facility] MAGNESIUM 2022-01-22 14:57:00 Harvey Jackman [facility] CBC W/PLT COUNT & AUTO 2022-01-22 14:57:00 Harvey Jackman CH, I [facility] CTA BRAIN 2022-01-22 14:19:00 Alison Pope [facility] CTA CAROTID 2022-01-22 14:19:[address] [facility] BRAIN CEREBRAL 2022-01-22 14:19:[address] [facility] PERFUSION ANALYSIS Medical Cente r CT BRAIN/STROKE TEST 2022-01-22 13:42:[address] [facility] Plan of Care Planned Activity Planned Date Details Comments Source Future Scheduled 2023-01-[address] [facility] Test 00:00:00 [facility]ing [facility] Cent[facility] r Screening (12+) [code = Tobacco Cessation Counseling and Screening (12+)] Future Scheduled 2021-11-19 INFLUENZA VACCINE (#1) C [...] 00:00:00 measurement Medical Center (procedure) [code = 01227532] Future Scheduled 2020-10-[address] [facility] 00[facility]00 measurement Medical Center (procedure) [code = 44078817] Future Scheduled 2020-10-[address] [facility] 00:00:00 measurement Medical Center (procedure) [code = 42024088] Future Scheduled 1991-12-12 SHINGLES VACCINES (1 [facility] [...] 00:00:00 examination Medical Center (regime/therapy) [code = 022231293] Future Scheduled 1951-[birth year]-12 Urine screening for [facility] Test 00:00:00 protein (procedure) Medical Center [code = 583590356] Future Scheduled 1950-12-[address] DIAB[address] EYE EXAM [facility] Test 00:00:00 [code = DIABETIC EYE Medical Center EXAM] Future Scheduled 1950-12-[address] [facility] Test 00:00:00 examination Medical Center (regime/therapy) [code = 091489581] Future Scheduled 1950-12-12 Urine screening for [facility] Test 00:00:00 protein (procedure) Medical Center [code = 497733373] Future Scheduled 1950-12-[address] DIABETIC EYE EXAM [facility] Test 00:00:00 [code = DIABETIC EYE Medical Center EXAM] Future Scheduled 1950-12-[address] [facility] Test 00:00:00 examination Medical Center (regime/therapy) [code = 326001435] Future Scheduled 1951-12-12 Urine screening for [facility] Test 00:00:00 protein (procedure) Medical Center [code = 608604475] Future Scheduled 1947-12-12 PNEUMOCOCCAL 65+ YRS CH[facility] [...] DXA [facility] Test 00:00:00 SCAN] [facility] Future Scheduled 1941 DXA SCAN [code = DXA [facility] Test 00:00:00 SCAN] [facility] Future Scheduled 1941 DXA SCAN [code = DXA [facility] Test 00:00:00 SCAN] [facility] Encounters Start End Encounter Admission Attending Care Care Encounter Source Date/Time Date/Time Type Type Clinicians Facility Department ID 2022-03-01 Outpatient Slaughter, Na STLMLC STLMLC [id number] Common 09:54:02 [facility] 2022-02-15 Outpatient Slaughter, Na STLMLC STLMLC [id number] 2 Common 16:33:01 [facility] 2022-01-22 [facility][note 3] [id number] 00:[facility]:00 Encounter [facility] 2022-01-22 [facility] [id number] 00:00:00 Encounter [facility] 2022-01-12 Outpatient Slaughter, Na STLMLC STLMLC [id number] 2 Common 14:58:01 [facility] 2021-12-08 Outpatient Slaughter, Na STLMLC STLMLC [id number] 2 Common 10:45:00 [facility] 2021-09-29 Outpatient Slaughter, Na STLMLC STLMLC [id number] 2 Common 11:51:00 [facility] 2021-09-28 Outpatient Slaughter, Na STLMLC STLMLC [id number] 2 Common 10:30:01 [facility] 2021-09-04 Outpatient Slaughter, Na STLMLC STLMLC [id number] 2 Common 13:45:00 [facility] 2021-06-02 Outpatient Slaughter, Na STLMLC STLMLC [id number] 2 Common 13:14:01 [facility] 2021-06-01 Outpatient Slaughter, Na STLMLC STLMLC [id number] 2 Common 14:17:00 [facility] 2021-05-29 Outpatient Slaughter, Na STLMLC STLMLC [id number] 2 Common 09:59:01 [facility] 2021-05-06 Outpatient Slaughter, Na STLMLC STLMLC [id number] 2 Common 16:04:00 [facility] 2021-04-15 Outpatient Slaughter, Na STLMLC STLMLC [id number] 2 Common 14:24:29 [id number] [facility] 2021-04-15 Outpatient Slaughter, Na STLMLC STLMLC [id number] 2 Common 14:24:14 [id number] [facility] 2021-04-15 Outpatient Slaughter, Na STLMLC STLMLC [id number] 2 Common 14:19:03 [id number] [facility] 2021-04-15 Outpatient Slaughter, Na STLMLC STLMLC [id number] 2 Common 14:06:54 [id number] [facility] 2021-04-15 Outpatient Slaughter, Na STLMLC STLMLC [id number] 2 Common 13:02:26 52942 [facility] 2021-04-15 Outpatient Slaughter, Na STLMLC STLMLC [id number] 2 Common 13:01:50 [id number] [facility] 2021-04-15 Outpatient Slaughter, Na STLMLC STLMLC [id number] 2 Common 13:01:22 [id number] [facility] 2021-04-15 Outpatient Slaughter, Na STLMLC STLMLC [id number] 2 Common 12:57:37 [id number] [facility] 2021-04-15 Outpatient Slaughter, Na STLMLC STLMLC [id number] 2 Common 12:33:49 [id number] [facility] 2021-04-15 Outpatient Slaughter, Na STLMLC STLMLC [id number] 2 Common 12:32:45 [id number] [facility] 2021-04-15 Outpatient Slaughter, Na STLMLC STLMLC [id number] 2 Common 12:31:08 [id number] [facility] 2021-04-15 Outpatient Slaughter, Na STLMLC STLMLC [id number] 2 Common 12:26:24 [id number] [facility] 2021-04-15 Outpatient Slaughter, Na STLMLC STLMLC [id number] 2 Common 12:26:03 [id number] [facility] 2021-04-15 Outpatient Slaughter, Na STLMLC STLMLC [id number] 2 Common 12:24:50 [id number] [facility] 2021-04-15 Outpatient Slaughter, Na STLMLC STLMLC [id number] 2 Common 11:59:32 [id number] [facility] 2021-04-15 Outpatient Slaughter, Na STLMLC STLMLC [id number] 2 Common 11:26:16 [id number] [facility] 2021-04-15 Outpatient Slaughter, Na STLMLC STLMLC [id number] 2 Common 11:19:17 [id number] [facility] 2021-04-15 Outpatient Slaughter, Na STLMLC STLMLC [id number] 2 Common 11:18:55 [facility] 2020-07-03 Inpatient ER BONG, [facility] Cardiology [id number] [facility] 16:58:00 ASTRID 2022-02-09 2022-02-09 (TEL) STLMLC STLMLC [id number] Co mmon 00:00:00 00:00:00 [facility] 2022-02-05 2022-02-05 (TEL) STLMLC STLC [id number] Co mmon 00:00:00 00:00:00 [facility] 2022-02-02 2022-02-02 (TEL) STLMLC STLMLC [id number] Co mmon 00:00:00 00:00:00 [facility] 2022-01-26 2022-01-26 (TEL) STLMLC STLC [id number] Co mmon 00:00:00 00:00:00 [facility] 2022-01-25 2022-01-25 Outpatient [facility] [id number] [facility] 00:00:00 23:59:00 Arik 2022-01-22 2022-01-25 [facility] Harvey [facility] [id number] 13:28:00 17:48:00 [facility]22-01-22 2022-01-25 [facility] Harvey [facility] [id number] 13:28:00 17:48:00 Encounter Vita [facility] 2022-01-22 2022-01-25 [facility] [id number] [facility] 13:28:00 17:48:00 [facility] 2022-01-25 2022-01-25 Orders [facility] [id number] 00:00:00 00:00:00 [facility] 2022-01-25 2022-01-25 Orders [facility] [id number] 00:00:00 00:00:00 Only [facility] 2022-01-22 2022-01-22 Travel [facility] [id number] [facility] 00:[facility]00 00:00:00 [facility] 2022-01-22 2022-01-22 Travel [facility] [id number] [facility] 00:[facility] 00:00:00 [facility] 2022-01-14 2022-01-14 OFFICE STLMLC STLMLC [id number] Co mmon 00:00:00 00:00:00 VISIT [facility] PT - CHI LEVEL 4 [facility] 2022-01-11 2022-01-11 (TEL) STLMLC STLMLC [id number] Co mmon 00:00:00 00:00:00 [facility] 2022-01-08 2022-01-08 (TEL) STLMLC STLMLC [id number] Co mmon 00:00:00 00:00:00 [facility] 2021-12-14 2021-12-14 (TEL) STLMLC STLMLC [id number] Co mmon 00:00:00 00:00:00 [facility] 2021-12-10 2021-12-10 OFFICE STLMLC STLMLC [id number] Co mmon 00:00:00 00:00:00 VISIT [facility] PT - CHI LEVEL 4 [facility] 2021-12-04 2021-12-04 (TEL) STLMLC STLMLC [id number] Co mmon 00:00:00 00:00:00 [facility] 2021-10-29 2021-10-29 (TEL) STLMLC STLMLC [id number] Co mmon 00:00:00 00:00:00 [facility] 2021-09-30 2021-09-30 OFFICE STLMLC STLMLC [id number] Co mmon 00:00:00 00:00:00 VISIT EST Spir it PT LEVEL 3 - [facility] 2021-09-24 2021-09-24 (TEL) STLMLC STLMLC [id number] Co mmon 00:00:00 00:00:00 [facility] 2021-09-14 2021-09-14 (TEL) STLMLC STLMLC [id number] Co mmon 00:00:00 00:00:00 [facility] 2021-09-08 2021-09-08 OFFICE STLMLC STLMLC [id number] Co mmon 00:00:00 00:00:00 VISIT [facility] PT - CHI LEVEL 4 [facility] 2021-06-23 2021-06-23 (TEL) STLMLC STLMLC [id number] Co mmon 00:00:00 00:00:00 [facility] 2021-06-02 2021-06-02 SUB ANNUAL STLMLC STLMLC [id number] Common 00:00:00 00:00:00 MCR [facility] VISIT [facility] 2021-06-02 2021-06-02 OFFICE STLMLC STLMLC [id number] Co mmon 00:00:00 00:00:00 VISIT EST Spir it PT LEVEL 3 - [facility] 2021-04-23 2021-04-23 (TEL) STLMLC STLMLC [id number] Co mmon 00:00:00 00:00:00 [facility] 2021-03-04 2021-03-04 OFFICE STLMLC STLMLC [id number] Co mmon 00:00:00 00:00:00 VISIT [facility] PT - CHI LEVEL 4 [facility] 2020-12-19 2020-12-19 OFFICE STLMLC STLMLC [id number] Co mmon 00:00:00 00:00:00 VISIT [facility] ESTAB PT - CHI LEVEL 4 [facility] 2020-12-09 2020-12-09 Outpatient STLMLC STLMLC [id number] Common 00:00:00 00:00:00 [facility] 2020-09-26 2020-09-26 Outpatient STLMLC STLMLC [id number] Common 00:00:00 00:00:00 [facility] 2020-09-25 2020-09-25 Outpatient STLMLC STLMLC [id number] Common 00:00:00 00:00:00 [facility] 2020-09-08 2020-09-08 Outpatient STLMLC STLMLC [id number] Common 00:00:00 00:00:00 [facility] 2020-08-27 2020-08-27 Outpatient STLMLC STLMLC [id number] Common 00:00:00 00:00:00 [facility] 2020-08-19 2020-08-19 Outpatient Miller_S_AH VFP VFP [id number] Village 05:09:00 05:09:00 [id number] [facility] 2020-07-30 2020-07-30 Outpatient STLMLC STLMLC [id number] Common 00:00:00 00:00:00 [facility] 2020-07-17 2020-07-17 Outpatient STLMLC STLMLC [id number] Common 00:00:00 00:00:00 [facility] 2020-07-16 2020-07-16 Outpatient Curly-Mbayo VFP VFP [id number] [place] 02:54:00 02:54:00 _A_AH [id number] Family Practic e 2020-07-16 2020-07-16 Outpatient Curly-Mbayo VFP VFP [id number] Village 02:54:00 02:54:00 _A_AH [id number] Family Practic e 2020-05-21 2020-05-21 Outpatient STLMLC STLMLC [id number] Common 00:00:00 00:00:00 [facility] 2020-05-20 2020-05-20 Outpatient STLMLC STLMLC [id number] Common 00:00:00 00:00:00 [facility] 2020-05-12 2020-05-12 Outpatient STLMLC STLMLC [id number] Common 00:00:00 00:00:00 [facility] 2020-04-30 2020-04-30 Outpatient STLMLC STLMLC [id number] Common 00:00:00 00:00:00 [facility] 2020-04-18 2020-04-18 Outpatient STLMLC STLMLC [id number] Common 00:00:00 00:00:00 [facility] 2020-02-06 2020-02-06 Outpatient STLMLC STLMLC [id number] Common 00:00:00 00:00:00 [facility] 2020-01-16 2020-01-16 Outpatient STLMLC STLMLC [id number] Common 00:00:00 00:00:00 [facility] 2020-01-15 2020-01-15 Outpatient STLMLC STLMLC [id number] Common 00:00:00 00:00:00 [facility] 2019-12-17 2019-12-17 Outpatient STLMLC STLMLC [id number] Common 00:00:00 00:00:00 [facility] 2019-11-21 2019-11-21 [facility] [id number] Common 15:40:00 15:40:[address] [place] [address] [facility] 2019-10-22 2019-10-22 [facility] [id number] Common 10:38:00 10:38:[address] [place] [facility] 2019-10-02 2019-10-02 [facility] [id number] Common 11:02:00 11:02:[address] [place] [address] [facility] 2019-09-26 2019-09-26 Out[facility] [id number] Common 14:15:00 14:15:[address] [place] [address] [facility] 2019-09-20 2019-09-20 [facility] [id number] Common 16:10:00 16:10:[address] [place] [address] [facility] 2019-09-13 2019-09-13 [facility] [id number] Common 15:19:00 15:19:[address] [place] [address] [facility] 2019-09-06 2019-09-06 Out[facility] [id number] Common 16:13:00 16:13:00 [address] [place] [address] [facility] 2019-09-04 2019-09-04 [facility] [id number] Common 11:20:00 11:20:00 [address] [place] [address] [facility] 2019-08-28 2019-08-28 Out[facility] [id number] Common 09:58:00 09:58:[address] [facility] [address] [facility] 2019-08-07 2019-08-07 [facility] [id number] Common 09:40:00 09:40:[address] [place] [address] [facility] 2019-07-24 2019-07-24 Out[facility] [id number] Common 16:54:00 16:54:[address] [place] [address] [facility] 2019-07-17 2019-07-17 Out[facility] [id number] Common 16:20:00 16:20:[address] [place] [address] [facility] 2019-07-13 2019-07-13 [facility] [id number] Common 09:00:00 09:00:00 [address] [place] [address] [facility] 2019-05-09 2019-05-09 Outpatient Curly-Mbayo VFP VFP [id number] [facility] 07:15:00 07:15:00 _A_AH [id number] Family Practic e 2019-05-09 2019-05-09 Outpatient Curly-Mbayo VFP VFP [id number] [facility] 07:15:00 07:15:00 _A_AH [id number] Family Practic e 2019-05-09 2019-05-09 Outpatient Curly-Mbayo VFP VFP [id number] [facility] 07:15:00 07:15:00 _A_AH [id number] Family Practic e Results Test Description Test Time Test Comments Results Result Comments Source RPR 2022-01-25 14:38:51 Test Item Value Reference Range Interpretation Comme nts R SCREEN (MASTER) (test code = 420) Nonreactive Nonreactive POC-Glucose [id number] 12:58:04 Test Item Value Reference Range Interpretation Comments POC-Glucose Meter (test 154 mg/dL 70-110 H : TE STED AT [facility] code = 1538) 6720 [facility], 770 30: Capacity Analyst/Techni daisy ID = [id number] for QIAN HOOD Lab Interpretation (test Abnormal code = 16646-8) [facility] [id number] 12:58:04 Test Item Value Reference Range Interpretation Comments POC-Glucose Meter (test 154 mg/dL 70-110 H : TE STED AT [facility] code = 1538) 6720 [facility] [place], 770 30: Capacity Analyst/Techni daisy ID = [id number] for QIAN HOOD Lab Interpretation (test Abnormal code = 83864-4) [facility] [id number] 12:58:04 Test Item Value Reference Range Interpretation Comments POC-GLUCOSE METER 154 mg/dL 70-110 H : TESTED A T [facility] 6720 (BEAKER) (test code = [facility], 1538) 80121: Capacity Analyst/Techni daisy ID = [id number] for LIVIER GUIDRY POCT-GLUCOSE [id number] 07:53:47 Test Item Value Reference Range Interpretation Comments POC-GLUCOSE METER 132 mg/dL 70-110 H : TESTED A T [facility] 6720 (BEAKER) (test code = [facility], 1538) 93782: Capacity Analyst/Techni daisy ID = [id number] for LIVIER GUIDRY BASIC METABOLIC [id number] 06:28:27 Test Item Value Reference Range Interpretation [...] G3b Moderately to s everely 30-44 G4 Sever ly decreased 15-29 G5 Kidney failure <15Repo rted eGFR is based on the CKD-EPI 2020 equation t hat does not use a race coefficientEsti mated GFR is not as accur ate as Creatinine Malika hernández in predicting glom erular filtration rate . Estimated GFR is not appl icable for dialysis patien ts Capacity Analyst ID - LAYTON [id number] 06:28:27 Test Item Value Reference Range Interpretation Comments MAGNESIUM (BEAKER) (test code = 1.9 mg/dL 1.6-2.6 627) Capacity Analyst ID - LAYTON [id number] (HEMOGRAM ONLY)2022-01-25 05:24:35 Test Item Value [...] 0-0 (BEAKER) (test code = 413) POCT-GLUCOSE [id number] 22:37:28 Test Item Value Reference Range Interpretation Comments POC-GLUCOSE METER 211 mg/dL 70-110 H : TESTED A T [facility] 6720 (BEAKER) (test code = [facility], 1538) 93854: Capacity Analyst/Techni daisy ID = [id number] for CA MFIELD, CRYSTAL 2D Echo W/Doppler(CW/PW/Color)2022-01-24 17:35:48Ejection FractionSLEH ECHO HEARTLAB [facility] W/Doppler(CW/PW/Color)2022-01-24 17:35:48Ejection FractionSLEH ECHO HEARTLAB [facility]University [facility] HospitalPO[facility]SE [id number] 16:50:38 Test Item Value Reference Range Interpretation Comments POC-GLUCOSE METER 289 mg/dL 70-110 H : TESTED A T [facility] 6720 (BEAKER) (test code = [facility], 1538) 13648: Capacity Analyst/Techni daisy ID = [id number] for An derson, Radha POCT-GLUCOSE [id number] 12:48:56 Test Item Value Reference Range Interpretation Comments POC-GLUCOSE METER 297 mg/dL 70-110 H : TESTED A T [facility] 6720 (BEAKER) (test code = [facility], 1538) 57121: Capacity Analyst/Techni daisy ID = [id number] for An derson, Radha POCT-GLUCOSE [id number] 08:20:48 Test Item Value Reference Range Interpretation Comments POC-GLUCOSE METER 294 mg/dL 70-110 H : TESTED A T [facility] 6720 (BEAKER) (test code = [facility], 1538) 17723: Capacity Analyst/Techni daisy ID = [id number] for An derson, Radha POCT-GLUCOSE [id number] 07:53:11 Test Item Value Reference Range Interpretation Comments POC-GLUCOSE METER 347 mg/dL 70-110 H : TESTED A T [facility] 6720 (BEAKER) (test code = [facility], 1538) 79859: Capacity Analyst/Techni daisy ID = [id number] for Ra mos, May Venous doppler leg, [id number] 06:50:36Ejection FractionSLEH ECHO HEARTLAB MKUniversity [facility] Children's HospitalVenous doppler leg, [id number] 06:50:36Ejection FractionSLEH ECHO HEARTLAB MKCKESSON [facility]-06 05:32:04 Test Item Value Reference Range Interpretation Comments MAGNESIUM (BEAKER) (test code = 2.0 mg/dL 1.6-2.6 627) Capacity Analyst ID Manny BAI WBASIC METABOLIC [id number] 05:32:03 Test Item Value Reference Range Interpretation [...] not appl icable for dialysis patien ts Capacity Analyst ID Manny BAI WCBC (HEMOGRAM ONLY)2022-01-24 04:47:08 Test Item Value [...] 0-0 (BEAKER) (test code = 413) POCT-GLUCOSE [id number] 17:28:54 Test Item Value Reference Range Interpretation Comments POC-GLUCOSE METER 334 mg/dL 70-110 H : TESTED A T [facility] 6720 ([facility]) (test code = MAMTA Seth [facility], 1538) [address]: Capacity Analyst/Techni daisy ID = [id number] for Wi lson, [facility] RAD, CHEST, 1 VIEW, NON [id number] 15:32:00Reason for exam:->evaluate for edema, effusions, currently on V4Nqhrqm this be performed at the [facility]?->[facility] : 1940 Sex: FFINALREPORT Exam: [...] Reference Range Interpretation Comments B-TYPE NATRIURETIC PEPTIDE ([facility]) 130 pg/mL 0-100 H (test code = 700) Capacity Analyst ID - ADMINPOCT-GLUCOSE [id number] 12:07:10 Test Item Value Reference Range Interpretation Comments POC-GLUCOSE METER 260 mg/dL 70-110 H : TESTED A T [facility] 67[address] ([facility]) (test code = MAMTA Seth [facility], 1538) [address]: Capacity Analyst/Techni daisy ID = [id number] for Lamberto Puente HIV-1 ANTIGEN WITH HIV-1/2 [id number] 11:29:35 Test Item Value Reference Range Interpretation Comments HIV-1 ANTIGEN WITH HIV 1\\T\\2 Nonreactive Nonreactive ANTIBODY (2) ([facility]) (test code = 2586) Capacity Analyst ID - ADMINHEMOGLOBIN [id number] 10:24:05 Test Item Value Reference Range Interpretation Comments HEMOGLOBIN A1C 10.4 % See_Comment H [Automated m essage] ELECTROPHORESIS ([facility]) The system which (test code = 3811) generated this result transmitted ref erence range: <=5.6%. The reference range was not used to int erpret this result as normal/abnormal . "The A1c is measured using a NGSP-certified method. HbA1c value equal to or greater than 6.5% as thediagnosis cutoff for diabetes. An HbA1c value of 5.7- 6.4% indicates increased risk for diabetes (prediabetes)."Capacity Analyst ID - ADMPOCT- GLUCOSE [id number] 09:48:11 Test Item Value Reference Range Interpretation Comments POC-GLUCOSE METER 370 mg/dL 70-110 H : TESTED A T [facility] 6720 (MASTER) (test code = MAMTA Seth [facility], 1538) [address]: Capacity Analyst/Techni daisy ID = [id number] for Lamberto Puente POCT-GLUCOSE [id number] 09:48:10 Test Item Value Reference Range Interpretation Comments POC-GLUCOSE METER 335 mg/dL 70-110 H : Notified RN/MD: (MASTER) (test code = TESTED AT [facility] 6720 1538) KEYSHA [facility], [address]: Capacity Analyst/Techni daisy ID = [id number] for Pamela Marks LIPID [id number] 08:46:58 Test Item Value Reference Range Interpretation Comments TRIGLYCERIDES (BEAKER) 316 mg/dL Speci men slightly (test code = 540) hemolyzed CHOLESTEROL (BEAKER) 80 mg/dL Specime n slightly (test code = 631) hemolyzed HDL CHOLESTEROL (BEAKER) 16 mg/dL (test code = 976) LDL CHOLESTEROL 1 mg/dL CALCULATED (BEAKER) (test code = 633) Triglyceride Reference Range: Low Risk <150 Borderline 150-199 High Risk 200-499 Very High Risk >=500Cholesterol Reference Range: Low Risk <200 Borderline 200-239 High Risk >240HDL Cholesterol Reference Range: Low Risk >=60 High Risk <40LDL Cholesterol Reference Range: Optimal <100 Near Optimal 100-129 Borderline 130-159 High 160-189 Very High >=190 Capacity Analyst ID - SARA WMR, MRA, BRAIN, WITHOUT [id number] 08:25:00Reason for exam:- >Ischemic Stroke Evaluation, dysarthria [facility] : 1940 Sex: FFINALREPORT MR, [...] arteries: Normal flow-related enhancement within the bilateral HANDS PARTER P1- P2 segments Additional findings: None. MRA NECK:Common carotid arteries: Unremarkable. Bifurcations: No flow-limiting stenosis. Cervical internal carotid arteries: No flow limiting stenosis.Vertebral arteries: Origins are not well- seen. No flow limiting stenosis within the visualized cervical vertebral arterial segments. Limited assessment of the V3 segment secondary to noncontrast technique. IMPRESSION: No proximal vessel occlusion within the head or neck. Signed: Siena Pires [facility] Verified Date/Time: 01/23/2022 08:25:45 MR, MRA, NECK, WITHOUT IV [id number] 08:25:00Reason for exam:->Ischemic Stroke EvaluationS[facility]: [facility] : 1940 Sex: FFINALREPORT MR, [...] arteries: Normal flow-related enhancement within the bilateral [place] P1- P2 segments Additional findings: None. MRA NECK:Common carotid arteries: Unremarkable. Bifurcations: No flow-limiting stenosis. Cervical internal carotid arteries: No flow limiting stenosis.Vertebral arteries: Origins are not well- seen. No flow limiting stenosis within the visualized cervical vertebral arterial segments. Limited assessment of the V3 segment secondary to noncontrast technique. IMPRESSION: No proximal vessel occlusion within the head or neck. Signed: [facility]iena [facility]ires [facility] Verified Date/Time: 01/23/2022 08:25:45 MR, BRAIN, WITHOUT [id number] 08:20:00Reason for exam:->Ischemic Stroke EvaluationCH[facility] : 1940 Sex: FFINAL REPORT MR, BRAIN, WITHOUT CONTRAST INDICATION: Neuro deficit, acute, stroke suspectedIschemic Stroke Evaluation TECHNIQUE: Multiplanar, multisequence MR imaging of the brain was obtained. COMPARISON: None FINDINGS:Brain parenchyma is normal in morphology. Midline structures are no rmally developed. No restricted diffusion to suggest recent ischemic insult. No abnormal susceptibility. Scattered T2/FLAIR hyperintense foci within the periventricular and subcortical white matter arenonspecific, however, statistically represent chronic microvascular ischemic changes. No hydrocephalu s. Orbits are within normal limits. No obstructive paranasal sinus disease. IMPRESSION: No acute intracranial findings Signed: Siena Pires [facility] Verified Date/Time: 01/23/2022 08:20:35 VITAMIN [id number] 07:14:04 Test Item Value Reference Range Interpretation Comments VITAMIN B12 (BEAKER) (test code = 909 pg/mL 213-816 H 774) Capacity Analyst ID - BHUMIKA [id number] 07:02:19 Test Item Value Reference Range Interpretation Comments MAGNESIUM (BEAKER) 2.1 mg/dL 1.6-2.6 Specimen slightly (test code = 627) hemolyzed Capacity Analyst ID - BHUMIKA WBASIC METABOLIC [id number] 07:02:19 Test Item Value Reference Range Interpretation [...] G3b Moderately to s everely 30-44 G4 Sever ly decreased 15-29 G5 Kidney failure <15Repo rted eGFR is based on the CKD-EPI 2020 equation t hat does not use a race coefficientEsti mated GFR is not as accur ate as Creatinine Malika edgar in predicting glom erular filtration rate . Estimated GFR is not appl icable for dialysis patien ts Capacity Analyst MARY BAI [facility] (HEMOGRAM ONLY)2022-01-23 06:11:42 Test Item Value Reference [...] WBC 0-0 (BEAKER) (test code = 413) Sodium, random [id number] 03:04:34 Test Item Value Reference Range Interpretation Comments Sodium Urine (test 81 meq/L code = 2955-3) TORO (test code = Reference Range: No TORO) NormalsOperator ID - [facility] CenterU[facility] Nitrogen, random [id number] 03:04:34 Test Item Value Reference Range Interpretation Comments Urea Nitrogen, Ur 325 mg/dL (test code = 3095-7) TORO (test code = Reference Range: No TORO) NormalsOperator ID - [facility] Hospitalodium[facility] [id number] 03:04:34 Test Item Value Reference Range Interpretation Comments Sodium Urine (test 81 meq/L code = 2955-3) TORO (test code = Reference Range: No TORO) NormalsOperator ID - [facility] CenterUrea Nitrogen, random [id number] 03:04:34 Test Item Value Reference Range Interpretation Comments Urea Nitrogen, Ur 325 mg/dL (test code = 3095-7) TORO (test code = Reference Range: No TORO) NormalsOperator ID - [facility] HospitalODIUM, RANDOM [id number] 03:04:34 Test Item Value Reference Range Interpretation Comments SODIUM URINE (BEAKER) (test code = 81 meq/L 243) Reference Range: No NormalsOperator ID - ADMINUREA NITROGEN, RANDOM URINE 2022-01-23 03:04:34 Test Item Value Reference Range Interpretation Comments UREA NITROGEN URINE (BEAKER) (test 325 mg/dL code = 538) Reference Range: No NormalsOperator ID - ADMINCreatinine, random [id number] 03:04:33 Test Item Value Reference Range Interpretation Comments Creatinine, Ur 41.0 mg/dL (test code = 2161-8) TORO (test code = Reference Range: No TORO) NormalsOperator ID - [facility] CenterCreatinine, random [id number] 03:04:33 Test Item Value Reference Range Interpretation Comments Creatinine, Ur 41.0 mg/dL (test code = 2161-8) TORO (test code = Reference Range: No TORO) NormalsOperator ID - ADMIN [facility]CREAT[facility]INE[facility] RANDOM [id number] 03:04:33 Test Item Value Reference Range Interpretation Comments CREATININE URINE (MASTER) (test 41.0 mg/dL code = 375) Reference Range: No NormalsOperator ID - ADMINPOCT-GLUCOSE [id number] 00:09:08 Test Item Value Reference Range Interpretation Comments POC-GLUCOSE METER 408 mg/dL 70-110 HH : Notified RN/MD: (MASTER) (test code = TESTED AT [facility] 6720 1538) [facility], [address]: Capacity Analyst/Techni daisy ID = [id number] for Pamela Marks U/S, RENAL, [id number] 22:42:00Reason for exam:->acute kidney injury [facility] : 1940 Sex: FFINALREPORT EXAM/TECHNIQUE: Retroperitoneal ultrasound. INDICATION: Acute kidney injury. COMPARISON: None. FINDINGS: Right kidney: The right kidney measures 11.8 x 6.0 x 6.0 cm. No hydronephrosis. Normal echotexture.Left kidney: The left kidney measures 10.7 x 6.5 x 6.2 cm. No hydronephrosis. Normal echotexture. Bladder: Unremarkable. Impression: No hydronephrosis. Signed: Kar Bernabe Verified Date/Time: 01/22/2022 22:42:12 Electronically signed by: KAR BERNABE MD on01/22/2022 10:42 PMSARS-CoV2/RT-PCR (Asymptomatic ONLY)2022-01-22 20:55:56 Test Item Value Reference Interpretation Comments Range SARS-COV2/RT-PCR Negative Negative The SARS-Co V-2 (test code = target nucleic 80821-6) acids are not detected in thi s [...] om SARS-CoV-2 in a nasopharyngeal swab specimen collec clemente from individual s suspected of COVID-19 by the ir healthcare provider. TORO (test code = This test has been [...] revoked sooner. Fact Sheet for Healthcare Providers: https://www.[employer]/Documents/Xp ert%20Xpress%20SAR S%20CoV-2/Fact%20S heets/302-3802%20S ARS-COV-2%20HEALTH CARE%20PROVIDERS%2 0FACT%20SHEET.pdf Fact Sheet for Healthcare Patients: https://www.[employer]/Documents/Xp ert%20Xpress%20SAR S%20CoV-2/Fact%20S heets/302-3801%20S ARS-COV-2%20PATIEN T%20FACT%20SHEET.p df Lab Interpretation Normal (test code = 72997-5) [facility]2022-01-22 20:55:56 Test Item Value Reference Interpretation Comments Range SARS-COV2/RT-PCR Negative Negative The SARS-Co V-2 (test code = target nucleic 63823-2) acids are not detected in thi s [...] rapid, real-dash e RT-PCR test intended for e qualitative detection of nucleic acid fr om SARS-CoV-2 in a nasopharyngeal swab specimen collec clemente from individual s suspected of COVID-19 by the ir healthcare provider. TORO (test code = This test has been [...] revoked sooner. Fact Sheet for Healthcare Providers: https://www.[employer]/Documents/Xp ert%20Xpress%20SAR S%20CoV-2/Fact%20S heets/302-3802%20S ARS-COV-2%20HEALTH CARE%20PROVIDERS%2 0FACT%20SHEET.pdf Fact Sheet for Healthcare Patients: https://www.[employer]/Documents/Xp ert%20Xpress%20SAR S%20CoV-2/Fact%20S heets/302-3801%20S ARS-COV-2%20PATIEN T%20FACT%20SHEET.p df Lab Interpretation Normal (test code = 55121-3) [facility])2022-01-22 20:55:56 Test Item Value Reference Range Interpretation Comments SARS-COV2/RT-PCR Negative Negative The SARS-Co V-2 target (test code = nucleic acids a re not 7898399) detected in thi s specimen. Negative result [...] individuals suspected of CO VID-19 by their [facility] provider. This test has been authorized [...] revoked sooner. Fact Sheet for Healthcare Providers: https://www.[employer]/Documents/Xpert%20Xpress%20SARS%20CoV-2/Fact%20Sheets/302-3802%91HULE-NNX-1%20 HEALTHCARE%20PROVIDERS%20FACT%20SHEET.pdf Fact Sheet for Healthcare Patients: https://www.[employer]/Documents/Xpert%20Xp ress%20SARS%20CoV-2/Fact%20Sheets/302-3801%10ZRFC-XDO-6%20PATIENT%20FACT%20SHEET .pdfUrinalysis w/Microscopic + Reflex to [id number] 15:58:03 Test Item Value Reference Range Interpretation Comments Color, UA (test code Yellow = 5778-6) Clarity, UA (test Hazy code = 5767-9) Specific [place], UA 1.012 1.001-1.035 (test code = 5811-5) pH, UA (test code = 6.0 5.0-8.0 5803-2) Protein, UA (test 30 mg/dL Negative A code = 49210-3) Glucose, UA (test Negative Negative code = 365) Ketones, UA (test Negative Negative code = 2514-8) Bilirubin, UA (test Negative Negative code = 40345-4) Blood, UA (test code Negative Negative = 20266-2) Nitrite, UA (test Negative Negative code = 5802-4) Leukocytes, UA (test Large Negative A code = 5799-2) Urobilinogen, UA 0.2 0.2-1.0 (test code = 66854-0) RBC, UA (test code = 1 See_Comment [Autom ated 97256-3) message] The system which generated this result [...] 1 See_Comment [Automate d (test code = 70690-0) messag e] The system which generated this result transmit clemente reference range : /HPF. The reference range was not used to interpret this result as normal/abnormal . Specimen Source (test code = 2795) TORO (test code = TORO) Capacity Analyst ID - [auto]Capacity Analyst ID - tech Lab Interpretation Abnormal (test code = 14574-6) [facility]/Micro[facility] + Reflex to Culture 2022-01-22 15:58:03 Test Item Value Reference Range Interpretation Comments Color, UA (test code Yellow = 5778-6) Clarity, UA (test Hazy code = 5767-9) Specific [place], UA 1.012 1.001-1.035 (test code = 5811-5) pH, UA (test code = 6.0 5.0-8.0 5803-2) Protein, UA (test 30 mg/dL Negative A code = 91761-3) Glucose, UA (test Negative Negative code = 365) Ketones, UA (test Negative Negative code = 2514-8) Bilirubin, UA (test Negative Negative code = 08446-9) Blood, UA (test code Negative Negative = 97470-2) Nitrite, UA (test Negative Negative code = 5802-4) Leukocytes, UA (test Large Negative A code = 5799-2) Urobilinogen, UA 0.2 0.2-1.0 (test code = 76633-4) RBC, UA (test code = 1 See_Comment [Autom ated 10468-3) message] The system which generated this result [...] 1 See_Comment [Automate d (test code = 41993-9) messag e] The system which generated this result transmit clemente reference range : /HPF. The reference range was not used to interpret this result as normal/abnormal . Specimen Source (test code = 2795) TORO (test code = TORO) Capacity Analyst ID - [auto]Capacity Analyst ID - tech Lab Interpretation Abnormal (test code = 06122-5) [facility]/ REFLEX URINE [id number] 15:58:03 Test Item Value Reference Range Interpretation [...] = 516) SOURCE(BEAKER) (test code = 2795) Capacity Analyst ID - [auto]Capacity Analyst ID - techCOMPREHENSIVE METABOLIC [id number] 15:35:37 Test Item Value Reference Range Interpretation [...] 30-44 G4 Severl y decreased 15-29 G5 Kidne y failure <15Reported eGF R is based on the CKD-EPI 2020 equation that d oes not use a race coefficientEsti mated GFR is not as accur ate as Creatinine Malika hernández in predicting glom erular filtration rate . Estimated GFR is not appl icable for dialysis patien ts Capacity Analyst ID - [id number] 15:31:08 Test Item Value Reference Range Interpretation Comments MAGNESIUM (BEAKER) (test code = 2.0 mg/dL 1.6-2.6 627) Capacity Analyst ID - BSCBC W/PLT COUNT & AUTO [id number] 15:07:18 Test Item Value Reference Range Interpretation [...] (BEAKER) (test code = 2801) CT, CTANGIO [id number] 14:59:00Reason for exam:->Symptoms onset less than 6 hours and NIHSS 6 or greater [facility] : 1940 Sex: FFINALREPORT [...] Angiogram There is no evidence for a [place] large vessel occlusion. There is [...] or territorial hypoperfusion. No evidence for a [place] large vessel occlusion. No evidence of hemodynamically significant stenosis in the cervical carotid or vertebral arteries by NASCET criteria. Signed: Tima Nunn MDReport Verified Date/Time: 01/22/2022 14:59:39 CT, CAROTID, [id number] 14:59:00 Reason for exam:->Symptoms onset less than 6 hours and NIHSS 6 or greater [facility] : 1940 Sex: FFINALREPORT [...] Angiogram There is no evidence for a [place] large vessel occlusion. There is [...] or territorial hypoperfusion. No evidence for a [place] large vessel occlusion. No evidence of hemodynamically significant stenosis in the cervical carotid or vertebral arteries by NASCET criteria. Signed: Tima Nunn MDReport Verified Date/Time: 01/22/2022 14:59:39 CT, CEREBRAL PERFUSION ANALYSIS 2022-01-22 14:59:00Reason for exam:->Symptom onset less than 6 hours and NIHSS 6 or greater [facility] : 1940 Sex: FFINALREPORT [...] Angiogram There is no evidence for a [place] large vessel occlusion. There is [...] or territorial hypoperfusion. No evidence for a [place] large vessel occlusion. No evidence of hemodynamically significant stenosis in the cervical carotid or vertebral arteries by NASCET criteria. Signed: Tima Nunn MDReport Verified Date/Time: 01/22/2022 14:59:39 [facility]/STROKE [id number] 13:51:00[facility] : 1940 Sex: FFINALREPORT CT, [...] Verified Date/Time: 01/22/2022 13:51:06 Microalbumin/Creat Ratio, Random [id number] 00:00:00 Test Item Value Reference Range Interpretation Comments Creatinine, Urine (test code = 2161-8) 62.3 Not Estab. Albumin, Urine (test code = 21209-5) 472.6 Not Estab. Alb/Creat Ratio (test code = 06115-9) 759 0-29 POCT-GLUCOSE [id number] 11:31:00 Test Item Value Reference Range Interpretation Comments POC-GLUCOSE METER 193 mg/dL 70-110 H : TESTED A T [facility] 6720 (BEAKER) (test code = [place], 1538) [address]: Capacity Analyst/Techni daisy ID = [id number] for CR UZ WINTER ANTONYILI A POCT-GLUCOSE [id number] 08:31:00 Test Item Value Reference Range Interpretation Comments POC-GLUCOSE METER 230 mg/dL 70-110 H : TESTED A T [facility] 6720 (BEAKER) (test code = SIDRAMN Rolo [facility], 1538) [address]: Capacity Analyst/Techni daisy ID = [id number] for CR UZ ARPAN, ODILI A BASIC METABOLIC [id number] 05:55:00 Test Item Value Reference Range Interpretation [...] S NOT APPLICABLE FOR DIALYSIS PATIEN TS. Capacity Analyst ID - PETER MCBC W/PLT COUNT & AUTO [id number] 05:31:00 Test Item Value Reference Range Interpretation [...] PERCENT (BEAKER) (test code = 2801) POCT-GLUCOSE [id number] 21:21:00 Test Item Value Reference Range Interpretation Comments POC-GLUCOSE METER 137 mg/dL 70-110 H : Notified RN/MD: (MASTER) (test code = TESTED AT [facility] 6720 1538) [facility], [address]: Capacity Analyst/Techni daisy ID = [id number] for ONDINA BROWNLEE [id number] 17:06:00 Test Item Value Reference Range Interpretation Comments ACTIVATED CLOTTING TIME 164 sec : 74 -137 seconds, (BEAKER) (test code = Ryan ne: TESTED AT 441) [address], [facility] 30: Capacity Analyst/Techni daisy ID = [id number] for NENA MEJIA, CLAUDE [id number] 16:53:00 Test Item Value Reference Range Interpretation Comments ACTIVATED CLOTTING TIME 175 sec : 74 -137 seconds, (BEAKER) (test code = Pandai ne: TESTED AT 441) [address], [facility] 30: Capacity Analyst/Techni daisy ID = [id number] for NENA MEJIA, CLAUDE [id number] 16:53:00 Test Item Value Reference Range Interpretation Comments ACTIVATED CLOTTING TIME 208 sec : 74 -137 seconds, (BEAKER) (test code = Ryan ne: TESTED AT [facility]) [address], [facility] 30: Capacity Analyst/Techni daisy ID = [id number] for NENA MEJIA, CLAUDE [id number] 16:06:00 Test Item Value Reference Range Interpretation Comments ACTIVATED CLOTTING TIME 296 sec : 74 -137 seconds, (BEAKER) (test code = Ryan ne: TESTED AT [facility]) [address], [facility] 30: Capacity Analyst/Techni daisy ID = [id number] for VICTORINA HOLDERICA POCT-GLUCOSE [id number] 12:21:00 Test Item Value Reference Range Interpretation Comments POC-GLUCOSE METER 127 mg/dL 70-110 H : TESTED A T [facility] 6720 (BEAKER) (test code = [facility], 1538) [address]: Capacity Analyst/Techni daisy ID = [id number] for Igbalajobi, She basim POCT-GLUCOSE [id number] 08:51:00 Test Item Value Reference Range Interpretation Comments POC-GLUCOSE METER 163 mg/dL 70-110 H : TESTED A T [facility] 6720 (BEAKER) (test code = [facility], 1538) [address]: Capacity Analyst/Techni daisy ID = [id number] for Igbalajobi, She basim BASIC METABOLIC [id number] 06:38:00 Test Item Value Reference Range Interpretation [...] S NOT APPLICABLE FOR DIALYSIS PATIEN TS. Capacity Analyst ID - BHUMIKA WCBC W/PLT COUNT & AUTO [id number] 05:45:00 Test Item Value Reference Range Interpretation [...] % 0-1 PERCENT (BEAKER) (test code = 2802) POCT-GLUCOSE [id number] 22:11:00 Test Item Value Reference Range Interpretation Comments POC-GLUCOSE METER 210 mg/dL 70-110 H : TESTED A T [facility] 6720 (BEAKER) (test code = [facility], 153) [address]: Capacity Analyst/Techni daisy ID = [id number] for Gertrude Waldrop POCT-GLUCOSE [id number] 18:24:00 Test Item Value Reference Range Interpretation Comments POC-GLUCOSE METER 157 mg/dL 70-110 H : TESTED A T [facility] 6720 (BEAKER) (test code = [facility], 153) [address]: Capacity Analyst/Techni daisy ID = [id number] for Wanda Wakefield POCT-GLUCOSE [id number] 12:10:00 Test Item Value Reference Range Interpretation Comments POC-GLUCOSE METER 146 mg/dL 70-110 H : TESTED A T [facility] 6720 (BEAKER) (test code = [place], 1538) [address]: Capacity Analyst/Techni daisy ID = [id number] for Wanda Wakefield POCT-GLUCOSE [id number] 08:39:00 Test Item Value Reference Range Interpretation Comments POC-GLUCOSE METER 113 mg/dL 70-110 H : TESTED A T [facility] 6720 (BEAKER) (test code = [place], 1538) [address]: Capacity Analyst/Techni daisy ID = [id number] for Wanda [place] BASIC METABOLIC [id number] 06:06:00 Test Item Value Reference Range Interpretation [...] S NOT APPLICABLE FOR DIALYSIS PATIEN TS. Capacity Analyst ID - PIAYA LCBC W/PLT COUNT & AUTO [id number] 05:24:00 Test Item Value Reference Range Interpretation [...] PERCENT (BEAKER) (test code = 2801) POCT-GLUCOSE [id number] 21:49:00 Test Item Value Reference Range Interpretation Comments POC-GLUCOSE METER 158 mg/dL 70-110 H : TESTED Yifan Linder [facility] 6720 (BEAKER) (test code = [place], 1538) [address]: Capacity Analyst/Techni daisy ID = [id number] for Manuel Marcelino POCT-GLUCOSE [id number] 18:10:00 Test Item Value Reference Range Interpretation Comments POC-GLUCOSE METER 152 mg/dL 70-110 H : TESTED A T [facility] 6720 (BEAKER) (test code = [facility], 1538) [address]: Capacity Analyst/Techni daisy ID = [id number] for Constance David basim POCT-GLUCOSE [id number] 12:52:00 Test Item Value Reference Range Interpretation Comments POC-GLUCOSE METER 149 mg/dL 70-110 H : TESTED A T [facility] 6720 (BEAKER) (test code = [facility], 1538) [address]: Capacity Analyst/Techni daisy ID = [id number] for Constance David basim POCT-GLUCOSE [id number] 09:18:00 Test Item Value Reference Range Interpretation Comments POC-GLUCOSE METER 141 mg/dL 70-110 H : TESTED A T [facility] 6720 (BEAKER) (test code = [facility], 1538) 53609: Capacity Analyst/Techni daisy ID = [id number] for Constance David basim BASIC METABOLIC [id number] 07:12:00 Test Item Value Reference Range Interpretation [...] S NOT APPLICABLE FOR DIALYSIS PATIEN TS. Capacity Analyst ID - DBCBC W/PLT COUNT & AUTO [id number] 06:50:00 Test Item Value Reference Range Interpretation [...] PERCENT (BEAKER) (test code = 2801) POCT-GLUCOSE [id number] 23:42:00 Test Item Value Reference Range Interpretation Comments POC-GLUCOSE METER 245 mg/dL 70-110 H : TESTED A T [facility] 6720 (BEAKER) (test code = [facility], 1538) 14794: Capacity Analyst/Techni daisy ID = [id number] for Manuel Marcelino POCT-GLUCOSE [id number] 17:40:00 Test Item Value Reference Range Interpretation Comments POC-GLUCOSE METER 225 mg/dL 70-110 H : TESTED A T [facility] 6720 (BEAKER) (test code = [facility], 1538) 93778: Capacity Analyst/Techni daisy ID = [id number] for IgbalaConstance stephens basim POCT-GLUCOSE [id number] 13:07:00 Test Item Value Reference Range Interpretation Comments POC-GLUCOSE METER 224 mg/dL 70-110 H : TESTED A T [facility] 6720 (BEAKER) (test code = [facility], 1538) 37473: Capacity Analyst/Techni daisy ID = [id number] for Igbalajobi, She basim POCT-GLUCOSE [id number] 09:47:00 Test Item Value Reference Range Interpretation Comments POC-GLUCOSE METER 162 mg/dL 70-110 H : TESTED A T [facility] 6720 (BEAKER) (test code = [facility], [facility]8) 24825: Capacity Analyst/Techni daisy ID = [id number] for Igbalajobi, She basim PLATELET AGGREGATION: FUNCTION [id number] 09:33:00 Test Item Value Reference Range Interpretation Comments [id number] Jw Garcia M.D. (BEAKER) (test code = (electonic signature) 9775) PLATELET COUNT AGG 246 K/CU MM 150-450 [...] may be falsely low with platelet counts<75,000/cu mm.Capacity Analyst ID- [id number] METABOLIC [id number] 04:41:00 Test Item Value Reference Range Interpretation [...] S NOT APPLICABLE FOR DIALYSIS PATIEN TS. Capacity Analyst ID - EDASICBC W/PLT COUNT & AUTO [id number] 04:24:00 Test Item Value Reference Range Interpretation [...] PERCENT (BEAKER) (test code = 2801) POCT-GLUCOSE [id number] 21:48:00 Test Item Value Reference Range Interpretation Comments POC-GLUCOSE METER 236 mg/dL 70-110 H : TESTED A T [facility] 6720 (BEAKER) (test code = [facility], 1538) 45886: Capacity Analyst/Techni daisy ID = [id number] for Cassie Abdi POCT-GLUCOSE [id number] 17:47:00 Test Item Value Reference Range Interpretation Comments POC-GLUCOSE METER 224 mg/dL 70-110 H : TESTED A T [facility] 6720 (BEAKER) (test code = [facility], 1538) 70295: Capacity Analyst/Techni daisy ID = [id number] for CAITLIN KENNEY POCT-GLUCOSE [id number] 13:24:00 Test Item Value Reference Range Interpretation Comments POC-GLUCOSE METER 245 mg/dL 70-110 H : TESTED A T [facility] 6720 (MASTER) (test code = [facility] [place], 1538) 47727: Capacity Analyst/Techni daisy ID = [id number] for Alanna Garces RAD, CHEST, 1 VIEW, NON [id number] 11:21:00Reason for exam:->preop evalShould this be performed at the bedside?->Yes [facility] 1940 Sex: FFINAL REPORT EXAMINATION: RAD, CHEST, 1 VIEW, NON DEPT. INDICATION: 79-year-old female, preoperative examination. COMPARISON: None. FINDINGS:Mild to moderate cardiomegaly. Pulmonary dasha and vasculature are within normal limits. No evidence of consolidation. No pleural effusion. No pneumothorax. Irek-yf-kgcrluir degenerative changes of the bilateral shoulders. Visualized soft tissues are unremarkable. IMPRESSION:No evidence of pneumonia or other acute cardiopulmonary abnormality. Mild to moderate cardiomegaly. Signed: More Bullard Verified Date/Time: 07/05/2020 11:21:30 Reading Location: [facility] C013Y CT Body Reading Room POCT-GLUCOSE [id number] 08:59:00 Test Item Value Reference Range Interpretation Comments POC-GLUCOSE METER 195 mg/dL 70-110 H : TESTED A T [facility] 6720 (MASTER) (test code = [facility], 1538) 61519: Capacity Analyst/Techni daisy ID = [id number] for CAITLIN KENNEY BASIC METABOLIC [id number] 06:20:00 Test Item Value Reference Range Interpretation [...] S NOT APPLICABLE FOR DIALYSIS PATIEN TS. Capacity Analyst ID - EDASICBC W/PLT COUNT & AUTO [id number] 05:33:00 Test Item Value Reference Range Interpretation [...] PERCENT (BEAKER) (test code = 2801) POCT-GLUCOSE [id number] 20:52:00 Test Item Value Reference Range Interpretation Comments POC-GLUCOSE METER 292 mg/dL 70-110 H : TESTED A T [facility] 6720 (BEAKER) (test code = [facility], 1538) 26913: Capacity Analyst/Techni daisy ID = [id number] for Cassie Abdi POCT-GLUCOSE [id number] 19:01:00 Test Item Value Reference Range Interpretation Comments POC-GLUCOSE METER 294 mg/dL 70-110 H : TESTED A T [facility] 6720 (BEAKER) (test code = [facility], 1538) 06889: Capacity Analyst/Techni daisy ID = [id number] for Constance David POCT-GLUCOSE [id number] 12:40:00 Test Item Value Reference Range Interpretation Comments POC-GLUCOSE METER 159 mg/dL 70-110 H : TESTED A T [facility] 6720 (BEAKER) (test code = [facility], 1538) 14291: Capacity Analyst/Techni daisy ID = [id number] for Constance David POCT-GLUCOSE [id number] 09:34:00 Test Item Value Reference Range Interpretation Comments POC-GLUCOSE METER 101 mg/dL 70-110 : TESTED A T [facility] 6720 (BEAKER) (test code = [facility], 1538) 83340: Capacity Analyst/Techni daisy ID = [id number] for Constance David basim HEMOGLOBIN [id number] 08:28:00 Test Item Value Reference Range Interpretation Comments HEMOGLOBIN A1C (BEAKER) (test code = 9.6 % 4.3-6.1 H 368) TSH/FREE T4 IF [id number] 06:08:00 Test Item Value Reference Range Interpretation Comments THYROID STIMULATING HORMONE 0.972 uIU/mL 0.350-4.940 (BEAKER) (test code = 772) Capacity Analyst ID - EDASIBASIC METABOLIC [id number] 05:44:00 Test Item Value Reference Range Interpretation [...] S NOT APPLICABLE FOR DIALYSIS PATIEN TS. Capacity Analyst ID - EDASICBC W/PLT COUNT & AUTO [id number] 05:22:00 Test Item Value Reference Range Interpretation [...] PERCENT (BEAKER) (test code = 2801) SARS-COV2/RT-PCR ([facility])2020-07-04 03:49:00 Test Item Value Reference Range Interpretation Comments SARS-COV2/RT-PCR (test Negative Not Detected, Negative, code = 6340311) See external report for linked test SARS-COV-2 PERFORMING LAB [facility] JONAS (test code = 1396556) Negative result for this test determines that [...] of the Act.Testing was performed using the HerBabyShower SARS-CoV-2 assay.Fact Sheet for Healthcare Providers:https://www.SonicLiving.Santech/jaylene/RT_SAR S-CeM-2_XFZ_Kzxe_Dmboe_10-484285.pdfFact Sheet for Healthcare Patients:https://www.SonicLiving.nash/s al/EW_PRWL-QqG-9_Fmyfnsf_Rpwp_Sihni_GR_22-702113T3.pdfPerforming Laboratory:[facility] [place] [address] POCT-GLUCOSE [id number] 23:10:00 Test Item Value Reference Range Interpretation Comments POC-GLUCOSE METER 302 mg/dL 70-110 H : TESTED A T [facility] 6720 (BEAKER) (test code = [facility], 1538) 45530: Capacity Analyst/Techni daisy ID = [id number] for Manuel Marcelino BASIC METABOLIC [id number] 18:18:00 Test Item Value Reference Range Interpretation [...] S NOT APPLICABLE FOR DIALYSIS PATIEN TS. Capacity Analyst ID - ADMINHEPATIC FUNCTION [id number] 18:18:00 Test Item Value Reference Range Interpretation [...] (test code = 28 U/L 6-55 347) Capacity Analyst ID - ADMINPROTHROMBIN [id number] 18:15:00 Test Item Value Reference Range Interpretation Comments PROTIME (BEAKER) 14.0 seconds 11.9-14.2 (test code = 759) INR (BEAKER) (test 1.11 See_Comment [Automat ed message] code = 370) The system [employer] generated this result transmitted ref erence range: [...] mechanical heart valves.CBC W/PLT COUNT & AUTO [id number] 18:00:00 Test Item Value Reference Range Interpretation [...] PERCENT (BEAKER) (test code = 2801) POCT-GLUCOSE [id number] 17:50:00 Test Item Value Reference Range Interpretation Comments POC-GLUCOSE METER 187 mg/dL 70-110 H : TESTED A T [facility] 6720 (BEAKER) (test code = [facility], 1538) 53364: Capacity Analyst/Techni daisy ID = [id number] for Constance David [id number] 16:34:00 RUN DATE: 10/19/18 [facility] - LAB *LIVE* PAGE 1 RUN TIME: 1634 Specimen Inquiry RUN USER: INTERFACE PATIENT: MEGHNA BIRD LOC: [facility] U #: [id number] AGE/SX: 77/F ROOM: [facility] RE10/12/18REG DR: Alfredo Cantu MD : 41 BED: 1 DIS: 10/13/18 STATUS: DIS Marcela TLOC: - SPEC #: [id number] RECD: 10/16/18 STATUS: GARDENIA REQ #: [id number] JENNA: 10/13/[address]: Alfredo Cantu MDENTERED: 10/16/18 SP TYPE: SURG OTHR DR: Thao Crooks MD, Nizam Mohammad MD [place], FrankE MDORDERED: /GADIEL ARVIZUO, SURG PATH LVL 4, PATH STAIN GROU COPIES TO: Thao Crooks MD [address] [place] [address] [place] [address] [place] [address] [email or web address] Baldemar Simeon MD [address] [place] [address] Babar Wang MD [address] [address] HISTOLOGY: TISSUE ID BLK PCS ALFREDO LEV PROCEDURE DISPOSITION ____ ___ ___ ___ STOMACH, NOS A 1 1 AB/PAS MAUREEN STOMACH, NOS A 1 2 PATH STAIN GROU PROCEDURES:ALBLUE (10/16/18) PAS (10/16/18) SURG PATH LVL 4 (10/16/18) PATH STAIN GROU (10/16/18) TISSUES: A. STOMACH, NOS - GASTRIC POLYP ADENO MASS CONTINUED ON NEXT PAGE WILBUR Cantu DATE: 10/19/18 [facility] - LAB *LIVE* PAGE 2 RUN TIME: 1634 Specimen Inquiry RUN USER: INTERFACE --------- ---SPEC #: [id number] PATIENT: MEGHNA BIRD #[id number] (Continued) CLINICAL HISTORY HX CA LG INTESTINE - Z85.038; DYSPEPSIA -K30; PAIN -R10.9 CPT CODES CPT CODE(S): 46384 , 79811 , 99355 , , , , FINAL DIAGNOSIS Stomach, polypectomy: CHRONIC GASTRITIS WITH INTESTINAL METAPLASIA NEGATIVE FOR DYSPLASIA OR MALIGNANCY NEGATIVE FOR HELICOBACTER PYLORI ORGANISMS GROSS DESCRIPTION Gastric polyp. Received in formalin are two mendiola tissue fragments, 0.2 cm each, all as A. ba/nr Grossing performed at [facility] Pathology, [address] [place] [address], [address], [place] [address]. Federal Appellate Clerk: Carlos Sargent M.D. MICROSCOPIC DESCRIPTION Gastric polyp. Sections demonstrate gastric mucosa with chronic inflammation. No dysplasia or malignancy is seen. Alcian blue-PAS confirms the presence of focal intestinal metaplasia. No dysplasia or malignancy is identified. The Diff Quik stain demonstrates no evidence of Helicobacter pylori organism s. Signed SIGNATURE ON FILE Nain Lott Jamal 10/19/18 1634 END OF REPORT GLUCOSE BEDSIDE [id number] 16:38:00 Test Item Value Reference Range Interpretation Comments GLUCOSE BEDSIDE TESTING (test code 174 mg/dL 70-110 H = GLUBED) GLUCOSE BEDSIDE [id number] 15:01:00 Test Item Value Reference Range Interpretation Comments GLUCOSE BEDSIDE TESTING (test code 193 mg/dL 70-110 H = GLUBED) GLUCOSE BEDSIDE [id number] 12:01:00 Test Item Value Reference Range Interpretation Comments GLUCOSE BEDSIDE TESTING (test code 178 mg/dL 70-110 H = GLUBED) GLUCOSE BEDSIDE [id number] 07:56:00 Test Item Value Reference Range Interpretation Comments GLUCOSE BEDSIDE TESTING (test code 191 mg/dL 70-110 H = GLUBED) BASIC METABOLIC [id number] 03:36:00 Test Item Value Reference Range Interpretation [...] CA) 8.5 MG/DL 8.5-10.1 N CBC W/AUTO [id number] 03:27:00 Test Item Value Reference Range Interpretation [...] = NO DIFF/SCN CRITERIA MDIFF) GLUCOSE BEDSIDE [id number] 21:07:00 Test Item Value Reference Range Interpretation Comments GLUCOSE BEDSIDE TESTING (test code 186 mg/dL 70-110 H = GLUBED) GLYCOSYLATED HEMOGLOBIN [id number] 17:49:00 Test Item Value Reference Range Interpretation Comments GLYCOSYLATED HEMOGLOBIN (HA1C) 8.2 % A1C 4.2-6.3 H (test code = GLYHGB) ESTIMATED AVERAGE GLUCOSE (test 189 MG/DLest code = EAG) COMPREHENSIVE METABOLIC [id number] 17:45:00 Test Item Value Reference Range Interpretation [...] = LDL/HDL) 1.61 Ratio 1.48-3.22 Avg N [id number] 17:45:00 Test Item Value Reference Range Interpretation Comments PHOSPHOROUS (test code = PHOS) 2.7 MG/DL 2.5-4.9 N RULE OUT IN [id number] 17:45:00 Test Item Value Reference Range Interpretation [...] nume rical results may timothy yby method. [id number] 17:45:00 Test Item Value Reference Range Interpretation Comments MAGNESIUM (test code = MAG) 2.0 MG/DL 1.8-2.4 N THROMBOPLASTIN TIME [id number] 17:37:00 Test Item Value Reference Range Interpretation Comments THROMBOPLASTIN TIME PARTIAL 30.9 SECONDS 26-35 N (test code = PTT) PROTHROMBIN [id number] 17:36:00 Test Item Value Reference Range Interpretation Comments PT PATIENT (test code = PTP) 13.3 SECONDS 9.3-12.9 H INTERNATIONAL NORMAL RATIO 1.15 INR Unit 0.8-1.2 N (test code = INR) CBC W/AUTO [id number] 17:34:00 Test Item Value Reference Range Interpretation [...] DIFF/SCN CRITERIA MDIFF) - XR CHEST 1 [id number] 17:02:00 Name: MEGHNA BIRD [facility] : 1940 Age/S: 77 / F [address] Unit #: [id number] Loc: [place] [address] Phys: Alfredo Cantu MD Acct: [id number] Dis Date: Status: ADM IN PHONE #: [phone] Exam Date: 10/12/2018 1640 FAX #: Reason: CAD EXAMS: CPT: [id number] XR CHEST 1 [id number] Fluoro Time: DAP (Gy m2): Air Kerma [...] Jorge Rosenberg M.D. CC: Alfredo Cantu MD; Baldeamr Simeon MD; Babar Wang MD PAGE 1 Signed Report Name: MEGHNA BIRD : 1940 Age/S: 77 / F [address] Unit #: [id number] Loc: [place] [address] Phys: Alfredo Cantu MD Acct: [id number] Dis Date: Status: ADM IN PHONE #: [phone] Exam Date: 10/12/2018 1640 FAX #: Reason: CAD EXAMS: CPT: [id number] XR CHEST 1 V 49337 Fluoro Time: DAP (Gy m2): Air Kerma (mGy): (Continued) Technologist: Harsha Carr, RT(R)(CT)(MRI) Trnkyb Date/Time: 10/12/2018 (170) AnglePR7 Orig Print D/T: S: 10/12/2018 (1706) PAGE 2 Signed ReportGLUCOSE BEDSIDE [id number] 15:59:00 Test Item Value Reference Range Interpretation Comments GLUCOSE BEDSIDE TESTING (test code 114 mg/dL 70-110 H = GLUBED)
--- NOTE | 2022-03-04 16:37 | RAD REPORT ---
EXAM DESCRIPTION: CT - Ct Stroke Brain Wo Cont - 03/04/2022 4:24 pm CLINICAL HISTORY: Expressive Aphasia COMPARISON: No comparisonsHead Brain Wo Cont dated 01/22/2022; HEAD BRAIN W O CONTRAST dated 01/11/20 08 TECHNIQUE: All CT scans are performed using dose optimization technique as appropriate and may inclu de automated exposure control or mA/KV adjustment according to patient size. FINDINGS: No intracranial hemorrhage, hydrocephalus or extra-axial fluid collection.No areas of brai n edema or evidence of midline shift. Residual changes at the right orbit. Mild chronic small vessel ischemic changes. The paranasal sinuses and mastoids are clear. The calvarium is intact. IMPRESSION: No acute intracranial abnormality.
[2022-03-04 17:37] LABS: Protime INR 1.05
[2022-03-04 17:39] LABS: Absolute Lymphocytes (CBC) 1.1 K/uL (0.7-4.9); Hematocrit 28.8 % (36.0-45.0); Lymphocytes % 17.2 % (15.3-44.8); MCV 85.9 fL (80-100); MPV 8.5 fL (7.6-11.3); RBC Red Blood Cell Count 3.35 M/uL (3.86-4.86)
[2022-03-04 17:54] LABS: ALT/SGPT 18 U/L (13-56); AST/SGOT 12 U/L (15-37); Albumin 2.9 g/dL (3.4-5.0); Alkaline Phosphatase 96 U/L (45-117); BUN Blood Urea Nitrogen 34 mg/dL (7-18); Bicarbonate 27 mmol/L (21-32); Bilirubin Total 0.3 mg/dL (0.2-1.0); Glomerular Filtration Rate 34 ml/min (=/>90); Glucose Level 217 mg/dL (74-106); Magnesium 2.2 mg/dL (1.6-2.4); Potassium 4.3 mmol/L (3.5-5.1); Protein, Total 7.1 g/dL (6.4-8.2); Sodium Level 138 mmol/L (136-145)
[2022-03-04 17:55] LABS: Bilirubin Direct < 0.1 mg/dL (0-0.2)
--- NOTE | 2022-03-04 18:30 | ER ---
Nurse's Notes [facility] Name: Gloria Longoria Age: 81 yrs Sex: Female : 1940 Arrival Date: 03/04/2022 Time: 15:46 Bed 17 Private MD: Addie Cormier Diagnosis: Expressive Aphasia Presentation: 03/04 15:58 Chief complaint: Patient states: she started having left sided weakness yesterday, ap3 along with headache and feeling like she can't get her words out. Coronavirus screen: At this time, the client does not indicate any symptoms associated with coronavirus-19. Ebola Screen: No symptoms or risks identified at this time. Initial Sepsis Screen: Does the patient meet any 2 criteria? No. Patient's initial sepsis screen is negative. Does the patient have a suspected source of infection? No. Patient's initial sepsis screen is negative. Risk Assessment: Do you want to hurt yourself or someone else? Patient reports no desire to harm self or others. Onset of symptoms was March 03, 2022. 15:58 Method Of Arrival: Wheelchair ap3 15:58 Acuity: MALAIKA 3 ap3 16:03 The patients blood glucose was checked before arriving to the hospital and was found to em6 be normal. 16:09 No acute neurological deficit is noted. em6 Triage Assessment: 16:00 The onset of the patients symptoms was more than six hours ago. General: Appears ap3 distressed, Behavior is cooperative, anxious. Pain: Complains of pain in frontal headache. Neuro: Level of Consciousness is awake, alert, obeys commands, Oriented to person, place, time, situation, Reports headache weakness. Cardiovascular: Patient's skin is warm and dry. Respiratory: Airway is patent Respiratory effort is even, unlabored, Respiratory pattern is regular, symmetrical. 16:03 The onset of the patients symptoms was. em6 16:03 The onset of the patients symptoms was March 03, 2022 at 12:00. em6 17:59 The onset of the patients symptoms was. em6 Stroke Activation: Symptom onset > 6 hours Physician: Stroke Attending; Name: ; Notified At: ; Arrived At: Physician: Chief Stroke Resident; Name: ; Notified At: ; Arrived At: Physician: Stroke Resident; Name: ; Notified At: ; Arrived At: Physician: ED Attending; Name: ; Notified At: ; Arrived At: Physician: ED Resident; Name: ; Notified At: ; Arrived At: Historical: - Allergies: 16:00 Sulfa (Sulfonamide Antibiotics); ap3 - PMHx: 16:00 ADD/ADHD; CHF; colon cancer; Diabetes - IDDM; Hypertension; Pneumonia; ap3 - Immunization history:: Client reports receiving the 2nd dose of the Covid vaccine. - Social history:: Smoking status: Patient denies any tobacco usage or history of. Screenin:03 Abuse screen: Denies threats or abuse. Nutritional screening: No deficits noted. em6 Tuberculosis screening: No symptoms or risk factors identified. Fall Risk Ambulatory Aid- None/Bed Rest/Nurse Assist (0 pts). Gait- Impaired (20 pts.). Mental Status- Oriented to own ability (0 pts). Total Tisnley Fall Scale indicates No Risk (0-24 pts). 16:09 [facility] ED Fall Risk Assessment (Adult) History of falling in the last 3 months, em6 including since admission No falls in past 3 months (0 pts) Confusion or Disorientation No (0 pts) Intoxicated or Sedated No (0 pts) Impaired Gait Yes (1 pt) Mobility Assist Device Used Yes (1 pt) Altered Elimination No (0 pt) Score/Fall Risk Level 0 - 2 = Low Risk Oriented to surroundings, Maintained a safe environment, Educated pt \T\ family on fall prevention, incl call for assistance when getting out of bed, Assessed \T\ reinforced patient's understanding of fall precautions, Provided non-skid footwear, Hourly rounding (assess needs \T\ fall precautionary measures) done, Used ambulatory aids as needed (educated on \T\ assisted with), Used gait belt as appropriate. 17:27 Humpty Dumpty Scale Fall Assessment Tool (age< 18yrs) Environmental Factors Patient jl7 placed in bed (2 pts). Assessment: 16:03 VAN Scoring: Arm Drift: Patients demonstrates NO arm weakness. Patient is VAN Negative. em6 Visual Disturbance: No visual disturbance noted. Aphasia: No aphasia noted. Neglect: No neglect noted. The patient has not been NPO before screening. The patient is currently on the following diet: regular diet The patient is alert, and able to follow commands. The patient does not exhibit slurred or garbled speech. The patient is not exhibiting difficulty speaking. The patient does not exhibit difficulty understanding words. The patient is able to swallow own secretions with no drooling or need for suction. Patient tolerated one teaspoon of water. No drooling, immediate coughing, gurgling, or clearing of the throat was noted. The patient tolerated 90mL of water. No drooling, immediate coughing, gurgling, or clearing of the throat was noted. The patient passed the bedside swallow screening. Oral medications may be given as ordered. Contact Physician for further diet orders. Provider notified of bedside swallow screening results: Corrie Appiah MD. General: Appears in no apparent distress. Behavior is cooperative. Pain: Denies pain. Neuro: Level of Consciousness is awake, alert, obeys commands, Oriented to person, place, time, situation, Kilnman are weak on left Moves all extremities. Reports headache frontal area. Cardiovascular: Patient's skin is warm and dry. Respiratory: Airway is patent Respiratory effort is even, unlabored, Respiratory pattern is regular, symmetrical, Breath sounds are clear bilaterally. GI: Abdomen is non-distended, Bowel sounds present X 4 quads. Abd is soft and non tender X 4 quads. : No signs and/or symptoms were reported regarding the genitourinary system. 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 Derm: No signs and/or symptoms reported regarding the dermatologic system. Musculoskeletal: Circulation, motion, and sensation intact. 16:03 TNKase (Tenecteplase) Screening: Contraindications: Other: does not meet parameter. em6 17:00 VAN Scoring: Arm Drift: Patients demonstrates NO arm weakness. Patient is VAN Negative. em6 Visual Disturbance: No visual disturbance noted. Aphasia: No aphasia noted. Neglect: No neglect noted. Reassessment: Patient appears in no apparent distress at this time. No changes from previously documented assessment. Patient and/or family updated on plan of care and expected duration. Pain level reassessed. Patient is alert, oriented x 3, equal unlabored respirations, skin warm/dry/pink. 18:00 Reassessment: Patient appears in no apparent distress at this time. No changes from em6 previously documented assessment. Patient and/or family updated on plan of care and expected duration. Pain level reassessed. Patient is alert, oriented x 3, equal unlabored respirations, skin warm/dry/pink. 18:51 Reassessment: [phone] VAN daughter. em6 18:56 Reassessment: Patient appears in no apparent distress at this time. No changes from em6 previously documented assessment. Patient and/or family updated on plan of care and expected duration. Pain level reassessed. Patient is alert, oriented x 3, equal unlabored respirations, skin warm/dry/pink. 19:59 Reassessment: No changes from previously documented assessment. Patient and/or family em6 updated on plan of care and expected duration. Pain level reassessed. Patient is alert, oriented x 3, equal unlabored respirations, skin warm/dry/pink. patient left to MRI by stretcher with tech. 20:58 Reassessment: back from MRI. em6 Vital Signs: 15:58 BP 115 / 47; Pulse 74; Resp 18; Pulse Ox 94% on R/A; Weight 104.33 kg; Height 5 ft. 2 ap3 in. (157.48 cm); 17:32 BP 135 / 64; Pulse 75; Resp 17; Pulse Ox 97% on 2 lpm NC; em6 18:15 BP 111 / 78; Pulse 68; Resp 15; Pulse Ox 98% on 2 lpm NC; em6 21:00 BP 126 / 62; Pulse 71; Resp 18; Pulse Ox 96% on 2 lpm NC; em6 22:00 BP 116 / 50; Pulse 62; Resp 18; Pulse Ox 98% on 2 lpm NC; em6 15:58 Body Mass Index 42.07 (104.33 kg, 157.48 cm) ap3 NIH Stroke Scale Scores: 16:04 NIHSS Score: 3 em6 ED Course: 15:46 Patient arrived in ED. am2 15:47 Addie Cormier MD is Private Physician. am2 15:58 Corrie Appiah MD is Attending Physician. sp3 16:00 Triage completed. ap3 16:01 Arm band placed on right wrist. ap3 16:01 Bed in low position. Call light in reach. Side rails up X2. Adult w/ patient. ap3 16:02 Maria Guadalupe Velázquez, RN is Primary Nurse. em6 16:26 CT Stroke Brain w/o Contrast In Process Unspecified. EDMS 16:45 EKG done, by ED staff, reviewed by Corrie Appiah MD. jl7 17:10 Missed attempt(s): 22 gauge in left antecubital area. em6 17:12 Missed attempt(s): 22 gauge in right hand. em6 17:15 Missed attempt(s): 22 gauge in left forearm. Bleeding controlled, band aid applied, jl7 catheter tip intact. 17:25 Initial lab(s) drawn, by me, sent to lab. Inserted saline lock: 22 gauge in left hand, jl7 using aseptic technique. Blood collected. 18:28 Rosalio Greene is Hospitalizing Provider. sp3 19:08 SARS RAPID Sent. em6 03/05 14:39 No provider procedures requiring assistance completed. db 14:50 IV discontinued, intact, bleeding controlled, No redness/swelling at site. Pressure kc6 dressing applied. Administered Medications: No medications were administered Medication: 14:39 VIS not applicable for this client. db Point of Care Testing: Blood Glucose: 03/04 17:11 Blood Glucose: 207 mg/dL; em6 Ranges: Outcome: 18:29 Decision to Hospitalize by Provider. sp3 03/05 14:50 Discharged to home via wheelchair, with family. kc6 Condition: stable Discharge instructions given to patient, family, Instructed on discharge instructions, follow up and referral plans. medication usage, Demonstrated understanding of instructions, follow-up care, medications, Prescriptions given X 2. 14:50 Patient left the ED. kc6 NIH Stroke Scale - NIH Stroke Score Date: 03/04/2022 Time: 16:04 Total Score = 3 1a. Level of Consciousness (LOC) - 0(Alert) 1b. Level of Consciousness (LOC) (Month \T\ Age) - 0(Both) 1c. LOC Commands (Open \T\ Closes Eyes/Cardiopulmonary Technologist Chief) - 0(Both) 2. Best Gaze (Lateral Gaze Paresis) - 0(Normal) 3. Visual Field Loss - 0(No visual loss) 4. Facial Palsy - 0(Normal) 5a. Left Arm: Motor (10-second hold) - 1(Drift) 5b. Right Arm: Motor (10-second hold) - 0(No drift) 6a. Left Leg: Motor (5-second hold - always test supine) - 1(Drift) 6b. Right Leg: Motor (5-second hold - always test supine) - 0(No drift) 7. Limb Ataxia (finger/nose \T\ heel/adkins - test with eyes open) - 0(Absent) 8. Sensory Loss (pinprick arms/legs/face) - 0(Normal) 9. Best Language: Aphasia (description/naming/reading) - 1(Mild to moderate aphasia) 10. Dysarthria (speech clarity - read or repeat words) - 0(Normal) 11. Extinction and Inattention (visual/tactile/auditory/spatial/personal) - 0(No abnormality) Initials: em6 Signatures: Dispatcher [employer] EDLavell Mendoza RN RN jl7 Suzanen Dill am2 Suzanne Riley RN RN ap3 Corrie Appiah MD MD sp3 Claire Andres RN RN kc6 Maria Guadalupe Velázquez RN RN em6 Kinga Mayberry RN RN db Corrections: (The following items were deleted from the chart) 03/04 17:29 16:03 VAN Scoring: Arm Drift: Minor drift Visual Disturbance: No visual em6 disturbance noted. Aphasia: No aphasia noted. Neglect: No neglect noted. em6 18:01 16:03 Neuro: Level of Consciousness is awake, alert, obeys commands, Oriented em6 to person, place, time, situation, Kilnman are weak on left Moves all extremities. em6 18:25 16:03 EENT: No signs and/or symptoms were reported regarding the EENT system. em6 em6 19:51 16:03 NIHSS Score: 2 em6 em6 19:51 16:03 NIHSS Score: 1 em6 em6 19:51 16:04 NIHSS Score: 2 em6 em6
--- NOTE | 2022-03-04 18:30 | EDPHYS ---
Physician Documentation [facility] Name: Gloria Long[facility] Age: 81 yrs Sex: Female : 1940 Arrival Date: 03/04/2022 Time: 15:46 Bed 17 Private MD: Addie Cormier ED Physician Corrie Appiah HPI: 03/04 16:07 This 81 yrs old Black Female presents to ER via Wheelchair with complaints of Slurred sp3 Speech, left sided weakness, S/S of Possible Stroke - onset this AM. 16:07 81-year-old female with history of CHF, colon cancer, diabetes, hypertension presents sp3 to the ED with chief complaint expressive aphasia and not able to speak clearly since waking up this morning. Patient went to bed without any symptoms but this started this morning. Patient has had multiple recent admissions including 1 for a CVA work-up for which she was transferred to [facility] and had a complete neurological work-up with no significant findings per patient's daughter. They patient had recurrence of the symptoms and she called her PCP who then referred her here for further evaluation. Patient denies any facial pain, neck pain, shortness of breath, chest pain, neck pain, abdominal pain, nausea, vomiting, diarrhea, fall, rash, extremity injuries, changes in senses (patient has baseline blindness), or any other concerning or critical findings on ROS at this time.. Historical: - Allergies: 16:00 Sulfa (Sulfonamide Antibiotics); ap3 - PMHx: 16:00 ADD/ADHD; CHF; colon cancer; Diabetes - IDDM; Hypertension; Pneumonia; ap3 - Immunization history:: Client reports receiving the 2nd dose of the Covid vaccine. - Social history:: Smoking status: Patient denies any tobacco usage or history of. ROS: 16:09 Constitutional: Negative for fever, chills, and weight loss, ENT: Negative for injury, sp3 pain, and discharge, Neck: Negative for injury, pain, and swelling, Cardiovascular: Negative for chest pain, palpitations, and edema, Respiratory: Negative for shortness of breath, cough, wheezing, and pleuritic chest pain, Abdomen/GI: Negative for abdominal pain, nausea, vomiting, diarrhea, and constipation, MS/Extremity: Negative for injury and deformity, Skin: Negative for injury, rash, and discoloration, Psych: Negative for depression, anxiety, suicide ideation, homicidal ideation, and hallucinations, Allergy/Immunology: Negative for hives, rash, and allergies, Endocrine: Negative for neck swelling, polydipsia, polyuria, polyphagia, and marked weight changes. 16:09 All other systems are negative. Exam: 16:10 Constitutional: This is a well developed, well nourished patient who is awake, alert, sp3 and in no acute distress. Head/Face: Normocephalic, atraumatic. ENT: Nares patent. No nasal discharge, no septal abnormalities noted. External auditory canals are clear. Oropharynx with no redness, swelling, or masses, exudates, or evidence of obstruction, uvula midline. Mucous membranes moist. Neck: Trachea midline, no thyromegaly or masses palpated, and no cervical lymphadenopathy. Supple, full range of motion without nuchal rigidity, or vertebral point tenderness. No Meningismus. Chest/axilla: Normal chest wall appearance and motion. Nontender with no deformity. No lesions are appreciated. Cardiovascular: Regular rate and rhythm with a normal S1 and S2. No gallops, murmurs, or rubs. Normal PMI, no JVD. No pulse deficits. Respiratory: Lungs have equal breath sounds bilaterally, clear to auscultation and percussion. No rales, rhonchi or wheezes noted. No increased work of breathing, no retractions or nasal flaring. Abdomen/GI: Soft, non-tender, with normal bowel sounds. No distension or tympany. No guarding or rebound. No evidence of tenderness throughout. Skin: Warm, dry with normal turgor. Normal color with no rashes, no lesions, and no evidence of cellulitis. MS/ Extremity: Pulses equal, no cyanosis. Neurovascular intact. Full, normal range of motion. Psych: Awake, alert, with orientation to person, place and time. Behavior, mood, and affect are within normal limits. 16:10 Neuro: Limited neurological exam however patient can move all extremities and lining inserter and sensitivity exams were normal in her extremities. Patient's patient is abnormal at baseline and therefore limits that exam however remainder of her cranial nerves are grossly normal. Patient does have expressive aphasia where she can get some words out but is having problems with garbled speech on others. This is a marked change from yesterday evening. She also has a mild headache.. 16:50 ECG was reviewed by the Attending Physician. EKG demonstrates normal sinus rhythm at 72 sp3 bpm with a first-degree AV block with a MI interval of 300, normal axis, normal QRS with mild poor R wave progression in the precordial leads with nonspecific diffuse ST/T changes without evidence of acute ischemia. Vital Signs: 15:58 BP 115 / 47; Pulse 74; Resp 18; Pulse Ox 94% on R/A; Weight 104.33 kg; Height 5 ft. 2 ap3 in. (157.48 cm); 17:32 BP 135 / 64; Pulse 75; Resp 17; Pulse Ox 97% on 2 lpm NC; em6 18:15 BP 111 / 78; Pulse 68; Resp 15; Pulse Ox 98% on 2 lpm NC; em6 21:00 BP 126 / 62; Pulse 71; Resp 18; Pulse Ox 96% on 2 lpm NC; em6 22:00 BP 116 / 50; Pulse 62; Resp 18; Pulse Ox 98% on 2 lpm NC; em6 15:58 Body Mass Index 42.07 (104.33 kg, 157.48 cm) ap3 NIH Stroke Scale Scores: 16:04 NIHSS Score: 3 em6 MDM: 16:05 Patient medically screened. sp3 16:11 Data reviewed: vital signs, nurses notes, lab test result(s), EKG, radiologic studies. sp3 ED course: 81-year-old female with multiple medical problems now presents with new onset expressive aphasia. We will obtain CVA/neurological work-up including CT scan of the head, EKG, laboratory values. Patient likely will need admission for MRI and neurological consultation. Disposition to be based on patient course and objective data from the work-up. Clinically have ruled out ACS, sepsis, shock, or any other critical or concerning findings at this time.. 18:27 ED course: CT scan is negative and laboratory values demonstrate no significant sp3 abnormality. Patient still has symptoms are mildly improved. Will admit patient to the hospital under the hospitalist service, consult neurology, and order MRI/MRA. Further evaluation by inpatient team. Patient is at history of this but has not had a positive CVA on any of her visits. Suspecting dystonic reaction or any other similar etiology. Will defer to neurology for further diagnosis and management.. 03/04 16:06 Order name: Basic Metabolic Panel; Complete Time: 18:18 sp3 03/04 16:06 Order name: CBC with Diff; Complete Time: 18:18 3 03/04 16:06 Order name: Hepatic Function; Complete Time: 18:18 sp3 03/04 16:06 Order name: High Sensitivity Troponin; Complete Time: 18:18 sp3 03/04 16:06 Order name: Magnesium; Complete Time: 18:18 3 03/04 16:06 Order name: Protime (+inr); Complete Time: 17:45 sp3 03/04 16:06 Order name: Ptt, Activated; Complete Time: 17:45 sp3 03/04 17:21 Order name: Glucose, Ancillary Testing; Complete Time: 17:29 EDMS 03/04 19:01 Order name: SARS RAPID; Complete Time: 19:36 em1 03/04 21:38 Order name: Glucose, Ancillary Testing; Complete Time: 21:46 EDMS 03/05 03:24 Order name: CBC with Automated Diff; Complete Time: 03:31 EDMS 03/05 03:58 Order name: Hemoglobin A1c; Complete Time: 05:28 EDMS 03/05 04:00 Order name: Basic Metabolic Panel; Complete Time: 05:28 EDMS 03/05 04:00 Order name: Phosphorus; Complete Time: 05:28 EDMS 03/04 16:06 Order name: CT Stroke Brain w/o Contrast; Complete Time: 17:29 sp3 03/04 16:06 Order name: EKG; Complete Time: 16:07 3 03/04 16:06 Order name: Accucheck; Complete Time: 17:09 3 03/04 16:06 Order name: Cardiac monitoring; Complete Time: 16:55 sp3 03/04 16:06 Order name: EKG - Nurse/Tech; Complete Time: 16:18 sp3 03/04 18:49 Order name: MRA Head Wo Cont; Complete Time: 21:37 EDMS 03/04 18:50 Order name: Brain Wo Cont; Complete Time: 21:37 EDMS 03/04 21:04 Order name: RAD; Complete Time: 21:37 EDMS 03/05 04:00 Order name: Lipid Profile; Complete Time: 05:28 EDMS 03/05 04:00 Order name: Magnesium; Complete Time: 05:28 EDMS 03/05 04:00 Order name: Thyroid Stimulating Hormone; Complete Time: 05:28 EDMS 03/05 04:11 Order name: LDL, Direct; Complete Time: 05:28 EDMS 03/05 07:38 Order name: Glucose, Ancillary Testing EDMS 03/05 11:16 Order name: Urinalysis W/Microscopic EDMS 03/05 11:48 Order name: Glucose, Ancillary Testing EDMS 03/04 16:06 Order name: IV Saline Lock; Complete Time: 16:55 sp3 03/04 16:06 Order name: Labs collected and sent; Complete Time: 17:27 sp3 03/04 16:06 Order name: NPO; Complete Time: 17:09 sp3 03/04 16:06 Order name: O2 Per Protocol; Complete Time: 17:00 sp3 03/04 16:06 Order name: O2 Sat Monitoring; Complete Time: 17:00 sp3 03/04 16:06 Order name: Stroke Swallow Screen; Complete Time: 17:09 sp3 Administered Medications: No medications were administered Point of Care Testing: Blood Glucose: 17:11 Blood Glucose: 207 mg/dL; em6 Ranges: Critical Glucose Levels:Adult <50 mg/dl or >400 mg/dl <40 mg/dl or >180 mg/dl Disposition Summary: 03/04/22 18:29 Hospitalization Ordered Hospitalization Status: Inpatient Admission sp3 Provider: Rosalio Greene sp3 Condition: Stable sp3 Problem: an acute exacerbation sp3 Symptoms: are unchanged sp3 Bed/Room Type: Standard sp3 Location: [facility] ER HOLD(03/04/22 19:35) Room Assignment: ERHOLD-(03/04/22 19:35) Diagnosis - Expressive Aphasia sp3 Forms: - Medication Reconciliation Form sp3 - SBAR form sp3 NIH Stroke Scale - NIH Stroke Score Date: 03/04/2022 Time: 16:04 Total Score = 3 1a. Level of Consciousness (LOC) - 0(Alert) 1b. Level of Consciousness (LOC) (Month \T\ Age) - 0(Both) 1c. LOC Commands (Open \T\ Closes Eyes/Undercollar Baster) - 0(Both) 2. Best Gaze (Lateral Gaze Paresis) - 0(Normal) 3. Visual Field Loss - 0(No visual loss) 4. Facial Palsy - 0(Normal) 5a. Left Arm: Motor (10-second hold) - 1(Drift) 5b. Right Arm: Motor (10-second hold) - 0(No drift) 6a. Left Leg: Motor (5-second hold - always test supine) - 1(Drift) 6b. Right Leg: Motor (5-second hold - always test supine) - 0(No drift) 7. Limb Ataxia (finger/nose \T\ heel/adkins - test with eyes open) - 0(Absent) 8. Sensory Loss (pinprick arms/legs/face) - 0(Normal) 9. Best Language: Aphasia (description/naming/reading) - 1(Mild to moderate aphasia) 10. Dysarthria (speech clarity - read or repeat words) - 0(Normal) 11. Extinction and Inattention (visual/tactile/auditory/spatial/personal) - 0(No abnormality) Initials: em6 Signatures: Dispatcher [employer] EDMS Ginger Diego RN RN mw Suzanne Riley RN RN ap3 Corrie Appiah MD MD sp3 Nazanin Sue PA-C PA-C sb4 Corrections: (The following items were deleted from the chart) 18:49 18:37 Stroke Protocol ordered. EDMS EDMS 19:35 18:29 Telemetry/MedSurg (Inpatient) sp3 mw 19:35 18:29 sp3 mw
--- NOTE | 2022-03-04 19:18 | P.HP ---
Certification for Inpatient Patient admitted to: Observation With expected LOS: <2 Midnights Patient will require the following post-hospital care: None Practitioner: I am a practitioner with admitting privileges, knowledge of patient current condition, hospital course, and medical plan of care. Services: Services provided to patient in accordance with Admission requirements found in Title 42 Section 412.3 of the Code of Federal Regulations Patient History Date of Service: 03/04/22 Primary Care Provider: Casa Reason for admission: CVA Rule Out History of Present Illness: Patient is an 81 year old female with past medical history of chronic diastolic CHF, colon cancer, insulin dependent type 2 diabetes, and hypertension who presented to the ED with complaints of expressive aphasia and left sided weakness. She reports that she went to bed as normal and woke up this morning with these symptoms. She was transferred to another facility about 1 month ago with concern for CVA and had a negative neurologic work up. Her head CT and MRI/MRA today are negative. No other significant lab abnormalities. She is blind at baseline and is still experiencing expressive aphasia and left sided weakness during my exam. No other physical/neurologic exam findings. ED provider wishes to admit patient for observation, CVA rule out. Allergies Sulfa (Sulfonamide Antibiotics) Allergy (Intermediate, Verified 09/22/21 21:30) Rash Home medications list reviewed: Yes Home Medications: Amlodipine Besylate 10 mg PO DAILY 02/07/22 Aspirin [Aspirin EC 81 MG] 81 mg PO DAILY 02/07/22 Bimatoprost [Lumigan Opthalmic Drops*] 1 gtt OPTH BEDTIME 02/07/22 Brimonidine Tartrate/Timolol [Combigan 0.2%-0.5% Eye Drops] 1 gtt OPTH BID 02/07/22 Carvedilol [Coreg] 25 mg PO BID 02/07/22 Cholecalciferol (Vitamin D3) [Vitamin D3] 1 cap PO DAILY 02/07/22 Cyanocobalamin (Vitamin B-12) [Vitamin B12] 5,000 mcg PO DAILY 02/07/22 Ferrous Sulfate [Iron] 325 mg PO DAILY 02/07/22 Furosemide 40 mg PO DAILY 02/07/22 Insulin Detemir [Levemir] 60 units SQ BID 02/07/22 Insulin Lispro [Humalog] See Rx Instructions .ROUTE .COMPLEX 02/07/22 Magnesium Oxide [Mag 0X*] 400 mg PO DAILY 02/07/22 Pantoprazole [Protonix Tab*] 40 mg PO DAILY 02/07/22 Pregabalin [Lyrica*] 75 mg PO DAILY 02/07/22 Rosuvastatin Calcium 40 mg PO BEDTIME 02/07/22 Sertraline HCl 100 mg PO DAILY 02/07/22 Trazodone [Desyrel*] 50 mg PO BEDTIME 02/07/22 predniSONE [Deltasone*] 10 mg PO BID 3 Days #6 tab 02/09/22 - Past Medical/Surgical History Diabetic: Yes -: Glaucoma -: CHF, diastolic dysfunction -: HTN -: GERD -: DM Neuropathy -: History of Colon CA -: Diabetes mellitus type 2 -: Fatty liver with Morbid Obesity -: CAD -: COPD -: Cholecystectomy -: Colon resection -: Appendectomy -: Hysterectomy -: Right Rotator Cuff Repair -: Colectomy Psychosocial/ Personal History: She lives at home. Her daughter helps her at home. - Family History Mother -: Cancer Notes: colon Brother -: Hypertension Sister -: Heart disease, Hypertension, Lung disease, Cancer - Social History Smoking Status: Former smoker Alcohol use: No CD- Drugs: No Caffeine use: Yes Place of Residence: Home Review of Systems Neurological: Weakness, Incoordination, Change in Speech Physical Examination - Vital Signs Blood Pressure: 111/78 Pulse: 68 Respirations: 15 Pulse Ox (%): 98 (2L NC) - Physical Exam General: Alert, In no apparent distress, Oriented x3 HEENT: Atraumatic, Sclerae nonicteric Neck: Supple, 2+ carotid pulse no bruit Respiratory: Clear to auscultation bilaterally, Normal air movement Cardiovascular: Regular rate/rhythm, Normal S1 S2 Gastrointestinal: Normal bowel sounds, No tenderness Musculoskeletal: No tenderness Integumentary: No rashes Neurological: Sensation intact, Normal affect, Abnormal speech - Studies Laboratory Data (last 24 hrs) 03/04/22 17:16: PT 11.6, INR 1.05, APTT 31.8 03/04/22 17:16: WBC 6.50, Hgb 9.3 L, Hct 28.8 L, Plt Count 193 03/04/22 17:16: Sodium 138, Potassium 4.3, BUN 34 H, Creatinine 1.55 H, Glucose 217 H, Magnesium 2.2, Total Bilirubin 0.3, AST 12 L, ALT 18, Alkaline Phosphatase 96 Assessment and Plan - Problems (Diagnosis) (1) TIA (transient ischemic attack) Current Visit: Yes Status: Acute (2) Anemia Current Visit: Yes Status: Chronic Qualifiers: Anemia type: due to chronic kidney disease Chronic kidney disease stage: stage 3 (moderate) Chronic kidney disease stage 3 subtype: stage 3b (GFR 30- 44) Qualified Code(s): N18.32 - Chronic kidney disease, stage 3b; D63.1 - Anemia in chronic kidney disease (3) CHF (congestive heart failure) Current Visit: Yes Status: Chronic Qualifiers: Heart failure type: diastolic Heart failure chronicity: chronic Qualified Code(s): I50.32 - Chronic diastolic (congestive) heart failure (4) COPD (chronic obstructive pulmonary disease) Current Visit: Yes Status: Chronic Qualifiers: COPD type: unspecified COPD Qualified Code(s): J44.9 - Chronic obstructive pulmonary disease, unspecified (5) Diabetes mellitus Current Visit: Yes Status: Chronic Qualifiers: Diabetes mellitus type: type 2 Diabetes mellitus custodial insulin use: with custodial use Diabetes mellitus complication status: with hyperglycemia Qualified Code(s): E11.65 - Type 2 diabetes mellitus with hyperglycemia; Z79.4 - intermediate designer (current) use of insulin (6) GERD (gastroesophageal reflux disease) Current Visit: Yes Status: Chronic Qualifiers: Esophagitis presence: without esophagitis Qualified Code(s): K21.9 - Gastro-esophageal reflux disease without esophagitis (7) HTN (hypertension) Current Visit: Yes Status: Chronic Qualifiers: Hypertension type: primary hypertension Qualified Code(s): I10 - Essential (primary) hypertension (8) Hyperlipidemia Current Visit: Yes Status: Chronic Qualifiers: Hyperlipidemia type: unspecified Qualified Code(s): E78.5 - Hyperlipidemia, unspecified - Plan Patient is admitted for CVA rule out. Head CT, head/neck CT angio negative. Labs unremarkable. MRI stroke protocol pending. Echo ordered for the morning as well as lipid panel and TSH. Physical therapy and speech therapy consult. Neurology consulted. Echocardiogram from September showed normal EF, normal wall motion, moderate diastolic dysfunction. Aspirin, atorvastatin, folic acid daily. Monitor and replete electrolytes per protocol. Reconcile and continue home medications. Lovenox for VTE prophylaxis. Full code. Discharge Plan: Home Plan to discharge in: 24 Hours - Advance Directives Does patient have a Living Will: No Does patient have a Durable POA for Healthcare: Yes - Code Status/Comfort Care Code Status Assessed: Yes Code Status: Full Code Physician Review: Patient Assessed, Agree with Above Assessment and Plan Critical Care: No Time Spent Managing Pts Care (In Minutes): 50
[2022-03-04 19:27] LABS: SARS-CoV-2 Antigen Rapid Res Negative (Negative)
[2022-03-04] MEDS ORDERED: ACETAMINOPHEN 500 MG TAB PO PRN (20:01)
[2022-03-04] MEDS ORDERED: ONDANSETRON 4 MG/2 ML VIAL IV PRN (20:01)
[2022-03-04] MEDS ORDERED: ATORVASTATIN 20 MG TAB PO SCH (21:00)
[2022-03-04] MEDS: INSULIN -REGULAR HUMAN 50 UNIT/0.5 ML ML SQ SCH (21:00)
--- NOTE | 2022-03-04 21:04 | RAD REPORT ---
EXAM DESCRIPTION: RAD - Chest Single View - 03/04/2022 8:58 pm CLINICAL HISTORY: Stroke COMPARISON: Chest Single View dated 02/08/2022; Chest Single View dated 02/06/2022; Chest Single Vie w dated 01/22/2022; Chest Single View dated 01/05/2022 FINDINGS: Lines: None. Lungs: Pulmonary vascular congestion but no alveolar edema. Pleural: No significant pleural effusions or pneumothorax. Cardiac: Cardiomegaly. Mediastinum: Within normal limits. Bones: No acute fractures. Other: None IMPRESSION: Pulmonary vascular congestion.
--- NOTE | 2022-03-04 21:05 | RAD REPORT ---
EXAM DESCRIPTION: MRI - MRA Head Wo Cont - 03/04/2022 8:57 pm CLINICAL HISTORY: slurred speech CVA COMPARISON: MRI BRAIN W WO CONTRAST dated 01/25/2008; MRA HEAD W O CONTRAST dated 01/25/2008; MRI BRAI N W WO CONTRAST dated 01/12/2008; MRA HEAD W O CONTRAST dated 03/20/2007 FINDINGS: 3D noncontrast [id number] MR angiography of the iliamna of [place] was performed. No aneurysm, flow-limiting stenosis or vascular malformation is seen. Forward flow seen in codominant vertebral arteries. The visualized dural venous sinuses appear patent. IMPRESSION: No significant flow abnormality of the iliamna of [place] is identified.
[2022-03-04 21:21] VITALS: BMI 42.0
[2022-03-04] MEDS ORDERED: ATORVASTATIN 20 MG TAB ONE (21:29)
--- NOTE | 2022-03-04 21:30 | RAD REPORT ---
EXAM DESCRIPTION: MRI - Brain Wo Cont - 03/04/2022 8:58 pm CLINICAL HISTORY: slurred speech COMPARISON: MRA Head Wo Cont dated 03/04/2022; MRI BRAIN W WO CONTRAST dated 01/25/2008; MRA HEAD W O CONTRAST dated 01/25/2008; MRI BRAIN W WO CONTRAST dated 01/12/2008 TECHNIQUE: Sagittal T1-weighted images were obtained along with PD/heavily T2-weighted and T2-FLAIR images. Axial DWI and ADC mapping sequences were also obtained along with coronal heavily T2-weighted images were obtained. FINDINGS: No intracranial hemorrhage, mass or acute infarction. There is no edema or shift of midlin e structures. No extra-axial fluid collections. Signal voids are seen as a normal finding in the radha r intracranial vessels. Mild chronic small vessel ischemic changes. Partially empty sella. Ethmoid air cell thickening. IMPRESSION: No acute intracranial abnormality. Specifically, no evidence of acute infarct.
[2022-03-05 03:23] LABS: Hematocrit 28.4 % (36.0-45.0); Lymphocytes % 15.5 % (15.3-44.8); MCV 85.8 fL (80-100); MPV 8.8 fL (7.6-11.3); RBC Red Blood Cell Count 3.31 M/uL (3.86-4.86)
[2022-03-05 03:51] LABS: BUN Blood Urea Nitrogen 33 mg/dL (7-18); Bicarbonate 28 mmol/L (21-32); Glomerular Filtration Rate 41 ml/min (=/>90); Glucose Level 377 mg/dL (74-106); HDL Cholesterol 24 mg/dL (40-60); Magnesium 2.3 mg/dL (1.6-2.4); Phosphorus 3.3 mg/dL (2.5-4.9); Potassium 4.9 mmol/L (3.5-5.1); Sodium Level 138 mmol/L (136-145); Thyroid Stimulating Hormone 0.661 uIU/mL (0.358-3.740)
[2022-03-05 04:11] LABS: LDL, Direct 34 mg/dL (100-129)
[2022-03-05 04:46] VITALS: TEMP 97.7
[2022-03-05] MEDS: INSULIN -REGULAR HUMAN 50 UNIT/0.5 ML ML SQ SCH ×2 (07:30→11:30)
[2022-03-05] MEDS ORDERED: FOLIC ACID 1 MG TABLET ONE (08:00)
[2022-03-05] MEDS ORDERED: ACETAMINOPHEN 500 MG TAB ONE (08:00)
[2022-03-05] MEDS ORDERED: ASPIRIN EC 81 MG TAB PO ONE (08:00)
[2022-03-05] MEDS ORDERED: ENOXAPARIN 30 MG/0.3 ML SQ ONE (08:01)
[2022-03-05] MEDS ORDERED: INSULIN -REGULAR HUMAN 50 UNIT/0.5 ML ML ONE ×2 (08:01→11:47)
[2022-03-05] MEDS ORDERED: ASPIRIN EC 81 MG TAB PO SCH (09:00)
[2022-03-05] MEDS ORDERED: FOLIC ACID 1 MG TABLET PO SCH (09:00)
[2022-03-05] MEDS ORDERED: ENOXAPARIN 30 MG/0.3 ML SQ SCH (09:00)
[2022-03-05 11:16] LABS: Specific Gravity 1.013 (1.005-1.030); Urine Bacteria <20 /HPF (<20); Urine Bilirubin NEGATIVE (Negative); Urine Blood Negative (Negative); Urine Clarity Clear (Clear); Urine Color Light-Yellow (Yellow); Urine Glucose 2+ (Negative); Urine Protein 1+ (Negative); Urine RBC <5 /HPF (None Seen); Urine Urobilinogen Normal (Normal); Urine WBC Clump Rare /HPF (None Seen); Urine pH 5.5 (5.0-7.0)
[2022-03-05 12:28] VITALS: BP 132/38
--- NOTE | 2022-03-05 12:52 | EKG ---
Test Date: 2022-03-04 Test Time: 16:37:39 Grease Maker: ANGELO MEASUREMENT RESULTS: Intervals: Rate: 72 MS: 300 QRSD: 88 QT: 404 QTc: 442 [place]: P: 43 MS: 300 QRS: 16 T: 113 INTERPRETIVE STATEMENTS: Sinus rhythm with 1st degree AV block Cannot rule out Inferior infarct, age undetermined Cannot rule out Anterior infarct, age undetermined ST & T wave abnormality, consider lateral ischemia Abnormal ECG Compared to ECG 03/04/2022 16:16:35 ST (T wave) deviation now present T-wave abnormality no longer present Myocardial infarct finding still present Possible ischemia still present Electronically Signed On 03-05-22 12:51:26 PURCHASING DEPARTMENT CLERK by Ean Beavers
--- NOTE | 2022-03-05 12:52 | EKG ---
Test Date: 2022-03-04 Test Time: 16:16:35 Bed Rubber: LISA MEASUREMENT RESULTS: Intervals: Rate: 71 GA: 296 QRSD: 76 QT: 374 QTc: 406 [place]: P: 94 GA: 296 QRS: 13 T: 138 INTERPRETIVE STATEMENTS: Sinus rhythm with 1st degree AV block Possible Inferior infarct, age undetermined Possible Anterior infarct, age undetermined T wave abnormality, consider lateral ischemia Abnormal ECG Compared to ECG 02/06/2022 18:56:30 T-wave abnormality now present Possible ischemia now present Myocardial infarct finding still present Electronically Signed On 03-05-22 12:51:35 SOFTWARE TRAINER by Ean Beavers
[2022-03-05 12:53] VITALS: O2SAT 96
--- NOTE | 2022-03-05 13:17 | P.DS ---
Admission Date: 03/04/22 Discharge Date: 03/05/22 Primary Care Provider: Casa Disposition: ROUTINE DISCHARGE Discharge Condition: FAIR Reason for Admission: CVA Rule Out - Problems (1) Expressive aphasia Current Visit: Yes Status: Acute (2) Chronic respiratory failure with hypoxia Current Visit: Yes Status: Acute (3) Hypertriglyceridemia Current Visit: Yes Status: Acute (4) TIA (transient ischemic attack) Current Visit: Yes Status: Acute (5) COPD (chronic obstructive pulmonary disease) Current Visit: Yes Status: Chronic Qualifiers: COPD type: unspecified COPD Qualified Code(s): J44.9 - Chronic obstructive pulmonary disease, unspecified Brief History of Present Illness: Patient is an 81 year old female with past medical history of chronic diastolic CHF, colon cancer, insulin dependent type 2 diabetes, and hypertension who presented to the ED with complaints of expressive aphasia and left sided weakness. She reports that she went to bed as normal and woke up with difficulty forming words. She was transferred to another facility about 1 month ago with concern for CVA and had a negative neurologic work up. Her head CT and MRI/MRA done in the ED were negative for acute CVA, no other significant lab abnormalities. She is blind at baseline and was still experiencing expressive aphasia and left sided weakness during examination in the ED. Patient placed in observation for acute CVA work-up. Hospital Course: MRI of the brain did not show acute disease. MRA head and neck did not show any significant vessel occlusion. Patient was seen and evaluated by neurology Dr. Luis and noted patient did not exhibit expressive aphasia during his examination. UA negative for UTI. Patient's symptoms resolved and deemed stable for discharge. Noted her diastolic blood pressure is very low, down to 38. She is on Coreg and amlodipine for hypertension. Amlodipine discontinued on discharge. Also noted she has hypertriglyceridemia but low LDL. Continue her home dose Crestor and added Zetia for hypertriglyceridemia. Patient will follow with Dr. Luis as an outpatient for further work-up for intermittent aphasia. Vital Signs/Physical Exam: Temp Pulse Resp BP Pulse Ox 97.7 F 86 18 132/38 L 94 03/05/22 04:00 03/05/22 12:00 03/05/22 12:00 03/05/22 12:00 03/05/22 12:00 General: Alert, In no apparent distress, Oriented x3 HEENT: Mucous membr. moist/pink Neck: JVD not distended Respiratory: Clear to auscultation bilaterally, Normal air movement Cardiovascular: No edema, Regular rate/rhythm, Normal S1 S2 Gastrointestinal: Normal bowel sounds, Soft and benign, Non-distended, No tenderness Musculoskeletal: No swelling Integumentary: No rashes Neurological: Normal strength at 5/5 x4 extr Laboratory Data at Discharge: WBC 6.70 K/uL (4.3-10.9) 03/05/22 03:04 Hgb 9.1 g/dL (12.0-15.0) L 03/05/22 03:04 Hct 28.4 % (36.0-45.0) L 03/05/22 03:04 Plt Count 179 K/uL (152-406) 03/05/22 03:04 PT 11.6 SECONDS (9.5-12.5) 03/04/22 17:16 INR 1.05 03/04/22 17:16 APTT 31.8 SECONDS (24.3-36.9) 03/04/22 17:16 Sodium 138 mmol/L (136-145) 03/05/22 03:04 Potassium 4.9 mmol/L (3.5-5.1) D 03/05/22 03:04 BUN 33 mg/dL (7-18) H 03/05/22 03:04 Creatinine 1.31 mg/dL (0.55-1.02) H 03/05/22 03:04 Glucose 377 mg/dL (74-106) H 03/05/22 03:04 Phosphorus 3.3 mg/dL (2.5-4.9) 03/05/22 03:04 Magnesium 2.3 mg/dL (1.6-2.4) 03/05/22 03:04 Total Bilirubin 0.3 mg/dL (0.2-1.0) 03/04/22 17:16 AST 12 U/L (15-37) L 03/04/22 17:16 ALT 18 U/L (13-56) 03/04/22 17:16 Alkaline Phosphatase 96 U/L (45-117) 03/04/22 17:16 Triglycerides 379 mg/dL (<150) H 03/05/22 03:04 Cholesterol 86 mg/dL (<200) 03/05/22 03:04 LDL Cholesterol Direct 34 mg/dL (100-129) L 03/05/22 03:04 HDL Cholesterol 24 mg/dL (40-60) L 03/05/22 03:04 Cholesterol/HDL Ratio 3.58 03/05/22 03:04 Home Medications: Aspirin [Aspirin EC 81 MG] 81 mg PO DAILY 02/07/22 Carvedilol [Coreg] 25 mg PO BID 02/07/22 Furosemide 40 mg PO DAILY 02/07/22 Insulin Lispro [Humalog] See Rx Instructions .ROUTE .COMPLEX 02/07/22 Magnesium Oxide [Mag 0X*] 400 mg PO DAILY 02/07/22 Rosuvastatin Calcium 40 mg PO BEDTIME 02/07/22 Trazodone [Desyrel*] 50 mg PO BEDTIME 02/07/22 Clopidogrel Bisulfate [Plavix] 75 mg PO DAILY 03/04/22 Insulin Detemir [Levemir] 60 units SQ BID 03/04/22 Pregabalin 75 mg PO BID 03/04/22 Ezetimibe [Zetia] 10 mg PO DAILY #30 tab 03/05/22 Folic Acid 1 mg PO DAILY #30 tab 03/05/22 New Medications: Folic Acid 1 mg PO DAILY #30 tab Ezetimibe [Zetia] 10 mg PO DAILY #30 tab Diet: ADA Activity: Fall precautions Followup: Viktor Luis MD [ASSOCIATE-ACTIVE - CAN ADMIT] - 1-2 Weeks Addie Cormier DO [Primary Care Provider] -
--- NOTE | 2022-03-05 13:58 | ECHO ---
HEIGHT: 5 ft 2 in WEIGHT: 230 lb 0 oz DATE OF STUDY: 03/05/[address]: Nazanin Sue 2-DIMENSIONAL: YES M.MODE: YES DOPPLER: YES COLOR FLOW: YES TDS: PORTABLE: YES DEFINITY: BUBBLE STUDY: DIAGNOSIS: STROKE CARDIAC HISTORY: CATHERIZATION: SURGERY: PROSTHETIC VALVE: PACEMAKER: MEASUREMENTS (cm) DIASTOLIC (NORMALS) SYSTOLIC (NORMALS) IVSd 1.3 (0.6-1.2) LA Diam 4.7 (1.9-4.0) LVEF 66% LVIDd 4.5 (3.5-5.7) LVIDs 2.9 (2.0-3.5) %FS 37% LVPWd 1.4 (0.6-1.2) Ao Diam 2.6 (2.0-3.7) 2 DIMENSIONAL ASSESSMENT: RIGHT ATRIUM: NORMAL LEFT ATRIUM: ENLARGED RIGHT VENTRICLE: NORMAL LEFT VENTRICLE: NORMAL TRICUSPID VALVE: MILD TRICUSPID REGURGITATION MITRAL VALVE: MITRAL ANNULAR CALCIFICATION WITH MILD REGURGITATION PULMONIC VALVE: NORMAL AORTIC VALVE: NORMAL PERICARDIAL EFFUSION: NONE AORTIC ROOT: NORMAL LEFT VENTRICULAR WALL MOTION: NORMAL DOPPLER/COLOR FLOW: SEE BELOW COMMENTS: 1. NORMAL LEFT VENTRICULAR EJECTION FRACTION 60-65% WITH NORMAL WALL MOTION 2. MODERATE DIASTOLIC DYSFUNCTION 3. MILD MITRAL REGURGITATION/ MILD TRICUSPID REGURGITATION 4. SEVERE PULMONARY HYPERTENSION WITH RIGHT VENTRICULAR SYSTOLIC PRESSURE GREATER THAN 60 mmHg 5. LEFT ATRIAL ENLARGEMENT TECHNOLOGIST: PIERRE VALENCIA
== END 2022-03-05 14:51 | disposition home or self-care (01) ==
LOC: ER 15:45 → ERHOLD 19:10
PROVIDERS: ADMIT Internal Medicine; ATTEND Internal Medicine
DX: G45.9 Transient cerebral ischemic attack, unspecified (principal); J96.11 Chronic respiratory failure with hypoxia; R29.703 NIHSS score 3; R47.01 Aphasia; N18.32 Chronic kidney disease, stage 3b; D63.1 Anemia in chronic kidney disease; I50.32 Chronic diastolic (congestive) heart failure; J44.9 Chronic obstructive pulmonary disease, unspecified; E11.65 Type 2 diabetes mellitus with hyperglycemia; K21.9 Gastro-esophageal reflux disease without esophagitis; I10 Essential (primary) hypertension; E78.5 Hyperlipidemia, unspecified; E78.1 Pure hyperglyceridemia; Z88.2 Allergy status to sulfonamides; Z79.4 Long term (current) use of insulin; Z82.49 Family history of ischemic heart disease and other diseases of the circulatory system; Z20.822 Contact with and (suspected) exposure to COVID-19
CPT/HCPCS: 93005 ×2; 93306; 95819; 85025 ×2; 81001; 80048 ×2; 36415; 83721; 83735 ×2; 84100; 85610; 80061; 82947 ×4; 80076; 85730; 84443; 83036; 84484; 70450; 71045; 70551; 70544; 92523; 97116; 97161; 97530; 94760 ×2; 99284; 87811; J1815 ×2; J1650

== ENCOUNTER 2022-03-22 13:15 | Inpatient (IN) | payer OTHER ==
--- OUTSIDE RECORDS SUMMARY | 2022-03-22 13:28 | XMS REPORT | Continuity of Care Document ---
:1940 Author Organization [facility] t Address [address] [place] [address] Care Team Providers Name Role Phone ADDIE SLAUGHTER Primary Care Physician Unavailable Addie Slaughter Attending Clinician Unavailable Ramiro Wu MD, I. Attending Clinician [phone] ASTRID WOODY Attending Clinician Unavailable JOANN SPRING Attending Clinician Unavailable Harvey Jackman MD Attending Clinician Joann Sprign MD Attending Clinician Harjit_S_AH Attending Clinician Unavailable Thongo_A_AH Attending Clinician Unavailable RAMIRO WU I. Admitting Clinician Unavailable ASTRID WOODY Admitting Clinician Unavailable JOANN SPRING Admitting Clinician Unavailable Miller_S_AH Admitting Clinician Unavailable Gypsyayo_A_AH Admitting Clinician Unavailable Payers Payer Name Policy Type Policy Number Effective Date Expiration Date Carmen meredith [facility] [id number] 2020 00:00:00 AARP MCR 53 [id number] 2021 [facility] ADVANTAGE 00:00:00 [facility] M[facility] C1 [id number] 2019 [facility] t 00:00:00 [facility] [place]LL[place]ARE OF [place] [id number] 2019 - [place] 00:00:00 (MEDICARE REPLACEMENT/ADV ANTAGE [...] artery 00:00: Medical disease) disease) 00 Center [id number] Left eye Problem Com tue pain [facility] G[facility]ropare Gastropare Problem C ommon sis sis [facility] 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 - [facility] translumin angioplast St al y implant [facility] coronary and graft Medic al angioplast Center y [id number] Need for Problem Comm on assistance Spirit due to - [facility]I unsteady [facility] [id number] Constipati Problem Com mon on, Spirit unspecifie - CHI d constipati [facility] on type Medical [place] [id number] Chronic Problem Common bronchitis [facility] , - CHI unspecifie [facility] chronic [facility] bronchitis Medica l type Center [id number] Gastroesop Problem Co mmon hageal [facility] reflux - [facility], [facility] presence Medica l not Center specified [id number] Essential Problem Comm on hypertensi [facility] on [facility] [id number] Mixed Problem Common hyperlipid [facility] emia [facility] [id number] Lymphedema Problem C ommon [id number] of both Spirit lower - [facility] extremitie [facility] [id number] Iron Problem Common deficiency [facility] anemia, - CHI unspecifie [facility] iron [facility] deficiency Medica l anemia Center type [id number] Glaucoma Problem Commo n of both Spirit eyes, - CHI unspecifie St glaucoma [facility] [id number] 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 Center [id number] Current Problem Common mild Spirit episode of - CHI major St depressive [facility] disorder, Medical unspecifie Center d whether recurrent [id number] 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 [id number] 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 [id number] Severe Problem Common major Spirit depression - [facility] [id number] Depression Problem Co mmon with Spirit anxiety - [facility] [id number] Anxiety Problem [facility] - [facility] [id number] Primary Problem Commo n osteoarthr Spirit itis of - CHI both knees [facility] [id number] Obstructiv Problem Com mon e sleep Spirit apnea - CHI syndrome [facility] [id number] Hypokalemi Problem Com mon a Spirit - [facility] [id number] 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 [facility] coronary Medical artery Center without angina pectoris [id number] [employer]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 - CHI insulin [facility] [id number] Type 2 Problem Common diabetes Spirit mellitus - CHI without St complicati [facility] [id number] History of Problem Co mmon glaucoma Spirit - [facility] Insulin Insulin Disease Active [facility] [place] [facility] 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 Overview: [facility] Formattin [facility] g of this Medical note [...] ents Source Name Type Date Date Clinician SULFA Allergy Active 2021-03 [facility] (SULFONA 03-24 [facility]IDE 00:00: ANTIBIOT 00 ICS) Sulfa Propensi Active 2021-[address] [facility]Sulfona ty to 03[facility] adverse 00:00: Medical Antibiot reaction 00 Center ics) s Sulfa Propensi Active 2021-[address] (Sulfona ty to 1 [facility] adverse 00:00: Medical Antibiot reaction 00 Center ics) s Sulfa DA Active [place] [facility] (Sulfona 7-25 [place] [facility] 00:00: d Antibiot 00 Medical ics) Center NO KNOWN Allergy Active [facility] Family History Family Member Diagnosis Comments Start Date Stop Date Source Natural mother Cancer [facility] Social History Social Habit Start Date Stop Date Quantity Comments Source History of Tobacco [facility] - Use [facility] History SDOH [facility] Alcohol Std Drinks Medica l Center History SDOH [facility] Alcohol Binge [facility] History SDOH [facility] Alcohol Comment Medical C enter History SDOH [facility] Transport Non-Med Medical Center History SDOH [facility] Housing Places Medical Ce nter Lived History [facility] 2022-01-23 2022-01-[address] [facility] Transport Med 00:00:00 00:00:[address] History [facility] 2022-01-23 2022-01-[address] [facility] Housing Unable to 00:00:00 00:00:00 Medical Center Pay History [facility] 2022-01-23 2022-01-[address] [facility] Housing Homeless 00:00:00 00:00:00 Medical Center Last Year Alcohol intake 2022-01-23 2022-01-[address] [facility] 00:[facility] 00:00:00 non-drinker Medical Cente r (finding) Exposure to 2022-01-12 2022-01-[address] [facility] SARS-CoV-2 (event) 00:00:00 13:40:00 Medica l Center History [facility] 2020-07-04 2020-07-[address] [facility] Alcohol Frequency 00:00:00 00:00:00 Medical Center Tobacco use and 2020-07-03 2020-07-[address] [facility] exposure 00:00:00 00:00:00 Medical Center Sex Assigned At [address] [facility] 00:00:00 00:00:00 Medical Center Smoking Status Start Date Stop Date Source Never smoker [facility] Medications Ordered Filled Start Stop Current Ordering Indication Dosage Frequency Signature Comments Components Source Medication Medication Date Date Medication? Clinician (SIG) Name Name Pregabalin Pregabalin 2021-03 No Pregabalin 75 MG 75 MG 2-15 75 MG 00:00: 00 Pregabalin Pregabalin 2021-03 No Pregabalin 75 MG 75 MG 2-15 75 MG 00:00: 00 Pregabalin Pregabalin 2021-03 No Pregabalin 75 MG 75 MG 2-15 75 MG 00:00: 00 Pregabalin Pregabalin 2021-03 No Pregabalin 75 MG 75 MG 2-15 75 MG 00:00: 00 Continuous Continuous 2021-03 No Continuous Glucose Glucose 1-21 Glucose Monitor Sup Monitor Sup 00:00: Monitor - - 00 Sup - Benzonatate Benzonatate 2021-03- No TID Benzonatat 200 MG 200 MG 18 - e 200 MG 00:00: 00:00 00 :00 Benzonatate Benzonatate 2021-03- No TID Benzonatat 200 MG 200 MG 18 -28 e 200 MG 00:00: 00:00 00 :00 FreeStyle FreeStyle 2021-03 No FreeStyle Jonna 2 Jonna 2 1-14 [place] 2 [place] 00 FreeStyle FreeStyle 2021-03 No FreeStyle Jonna Jonna 1-14 [place] 00 FreeStyle FreeStyle 2021-03 No FreeStyle Jonna 2 Jonna 2 1-14 Jonna 2 [place] 00 FreeStyle FreeStyle 2021-03 No FreeStyle Jonna Jonna 1-14 Jonna [place] - 00 aspirin 81 2021-03 Yes 81mg QD Take [address] MG EC 1-07 by mouth [facility] tablet 18:06: daily. [address] fluticasone 2021-03 Yes 2{puff} QD Inhale [address] propion-jaylene 1-07 puffs by Luke s meteroL 18:06: mouth via Medic al (ADVAIR) inhaler Center 250-50 daily . mcg/dose diskus inhaler amLODIPine 2021-03 Yes 5mg QD Take [address] (NORVASC) 5 1-07 by mouth Luke s MG tablet 18:06: daily. Medica l 48 Center dorzolamide 2021-03 Yes 1[drp] Q.[id number] [address] (TRUSOPT) 2 1-07 [id number] (three) [facility]ukes % 18:06: 3D times Medical ophthalmic 48 daily. Center solution insulin 2021-03 Yes 70U Q.5D Inject [...] MG 18:06: mouth Medical tablet 48 daily. [place] cyanocobala 2021-03 Yes 5000ug QD Take 5,[address] min 1-07 mcg by [facility]ukes (vitamin 18:06: mouth Medical B-12) 1000 48 daily. [place] MCG tablet aspirin 81 2021-03 Yes 81mg [...] MG tablet 18:06: daily. Medica l 48 [place] dorzolamide 2021-03 Yes 1[drp] Q.[id number] [address] (TRUSOPT) 2 1-07 [id number] (three) [facility]ukes % 18:06: 3D times Medical ophthalmic 48 daily. [place] solution insulin 2021-03 Yes 70U Q.5D Inject [...] MG 18:06: mouth Medical tablet 48 daily. [place] cyanocobala 2021-03 Yes 5000ug QD Take 5,[address] min 1-07 mcg by [facility]ukes (vitamin 18:06: mouth Medical B-12) 1000 48 daily. [place] MCG tablet aspirin 81 2021-03 Yes 81mg [...] MG tablet 18:06: daily. Medica l 48 [place] dorzolamide 2021-03 Yes 1[drp] Q.[id number] [address] (TRUSOPT) 2 1-07 [id number] (three) [facility]ukes % 18:06: 3D times Medical ophthalmic 48 daily. [place] solution insulin 2021-03 Yes 70U Q.5D Inject [...] 48 daily. Center MCG tablet gabapentin 2021-03 No 800mg Q.[id number] Take [address] (NEURONTIN) 03-27 [id number] mg by [facility]ukes 800 MG 16:45: 00:00 [...] dical 56 :00 out . Center spironolact 2021-03- No 25mg Q.5D Take 25 mg CHI [...] needed for Pain. gabapentin 2021-03 No 800mg Q.[id number] Take [address] (NEURONTIN) 03-27 [id number] mg by [facility]ukes 800 MG 16:45: 00:00 [...] needed for Pain. gabapentin 2021-03 No 800mg Q.[id number] Take [address] (NEURONTIN) 03-27 [id number] mg by [facility] 800 MG 16:45: 00:00 3D mouth 3 Medical tablet 56 :00 (three) Center times daily. metoprolol 2021-03 No 100mg Q.5D Take [address] tartrate 03-27 mg by [facility]ukes (LOPRESSOR) 16:45: 00:00 mouth 2 Me dical 100 MG 56 :00 (two) Center tablet times daily. insulin 2021-03- No Inject [facility] aspart 03-27 subcutaneo [facility]ukes [...] dical 56 :00 out . Center spironolact 2021-03- No 25mg Q.5D Take 25 mg CHI [...] 00 by mouth Center daily. cefdinir 2021-03 300mg Q.5D Take 1 [facility] t (OMNICEF) 03-27 11-10 capsule [facility] 300 MG 00:00: 23:59 (300 mg Medical capsule 00 :00 total) by Center mouth 2 (two) times daily for 3 days. metroNIDAZO 2021-03- No 500mg Q.[id number] Take [address] LE (FLAGYL) 03-27 [id number] tablet [facility] 500 MG 00:00: 23:59 3D (500 mg Medical tablet 00 :00 total) by Center mouth 3 (three) times daily for 3 days. cefdinir 2021-03- No 300mg Q.5D Take 1 [facility] t (OMNICEF) 03-27 capsule [facility] 300 MG 00:00: 23:59 (300 mg Medical capsule 00 :00 total) by Center mouth 2 (two) times daily for 3 days. metroNIDAZO 2021-03- No 500mg Q.[id number] Take [address] LE (FLAGYL) 03-27 [id number] tablet [facility] 500 MG 00:00: 23:59 3D (500 mg Medical tablet 00 :00 total) by Center mouth 3 (three) times daily for 3 days. cefdinir 2021-03 No 300mg Q.5D Take 1 [facility] t (OMNICEF) 03-27 capsule [facility] 300 MG 00:00: 23:59 (300 mg Medical capsule 00 :00 total) by Center mouth 2 (two) times daily for 3 days. metroNIDAZO 2021-03- No 500mg Q.[id number] Take [address] LE (FLAGYL) 03-27 [id number] tablet [facility] 500 MG 00:00: 23:59 3D (500 mg Medical tablet 00 :00 total) by Center mouth 3 (three) times daily for 3 days. Zofran 4 MG Zofran 4 MG 2021-03 [...] 00 Zofran 4 MG Zofran 4 MG 2021- No 1{table Zofran 4 0-27 t} MG 00:00: 00 Zofran 4 MG Zofran 4 MG 2021- No 1{table Zofran 4 0-27 t} MG [...] 0-27 t} MG 00:00: 00 Novofine Novofine 2-0 No Novofine Pen Needle Pen Needle 9-22 Pen Needle 32G X 6 MM 32G X 6 MM 00:00: 32G X 6 MM 00 Pregabalin Pregabalin 2-0 No 1{capsu BID Pregabalin 75 MG 75 MG 9-22 le} 75 MG 00:00: 00 Novofine Novofine 2-0 No Novofine Pen Needle Pen Needle 9-22 Pen Needle 32G X 6 MM 32G X 6 MM 00:00: 32G X 6 MM 00 Pregabalin Pregabalin 2-0 No 1{capsu BID Pregabalin 75 MG 75 MG 9-22 le} 75 MG 00:00: 00 Novofine Novofine 2-0 No Novofine Pen Needle Pen Needle 9-22 Pen Needle 32G X 6 MM 32G X 6 MM 00:00: 32G X 6 MM 00 Pregabalin Pregabalin 2-0 No 1{capsu BID Pregabalin 75 MG 75 [...] 2022-0 No Novofine Pen Needle Pen Needle 12-10 Pen Needle 32G X 6 MM 32G [...] 00 :00 by mouth Center daily. lisinopriL 2020-2- No 5mg QD Take [address] [...] Medica l 39 Center dorzolamide Yes 1[drp] Q.[id number] [address] (TRUSOPT) 2 4-22 [id number] (three) [facility]ukes % 12:18: 3D times Medical ophthalmic 39 daily. Center solution gabapentin Yes 800mg Q.[id number] Take [address] (NEURONTIN) 4-22 [id number] mg by L ukes 800 MG 12:18: [...] daily. Center (241.3 mg magnesium) tablet metFORMIN 2021-0 Yes 500mg Take [address] (GLUCOPHAGE 4-22 mg by [facility] ) 500 MG 12:18: mouth 2 Medica l tablet 39 (two) Center times daily with breakfast and dinner. Lidocaine 5 Lidocaine 5 2020-0 No BID [...] Spir it every - CHI night as St directed [facility] Levemir Levemir No BID Levemir FlexTouch FlexTouch FlexTouch 100 UNIT/ML 100 UNIT/ML 100 UNIT/ML FreeStyle FreeStyle No FreeStyle Jonna 2 Jonna 2 J[place] 2 [place] Continuous Continuous No Continuous Glucose Glucose Glucose Monitor Sup Monitor Sup Monitor - - Sup - Albuterol Albuterol No 3{ml_as QID Albuterol Sulfate Sulfate _needed Sulfate (2.5 (2.5 } (2.5 MG/3ML) MG/3ML) MG/3ML) 0.083% 0.083% 0.083% guaiFENesin guaiFENesin No 10{ml_a QID guaiFENesi -DM 100-10 -DM 100-10 s_neede n-DM MG/5ML MG/5ML d} 100-10 MG/5ML Ondansetron Ondansetron No Ondansetro HCl 4 MG HCl 4 MG n HCl 4 MG Advair Advair No 1{puff} BID Advair Diskus Diskus Diskus 250-50 250-50 250-50 MCG/DOSE MCG/DOSE MCG/DOSE Nitroglycer Nitroglycer No Nitroglyce in 0.4 MG in 0.4 MG rin 0.4 MG Ipratropium Ipratropium No 3{ml_as QID Ipratropiu -Albuterol -Albuterol _needed m-Albutero 0.5-2.5 (3) 0.5-2.5 (3) } l 0.5-2.5 MG/3ML MG/3ML (3) MG/3ML Combigan Combigan No Combigan 0.2-0.5 % 0.2-0.5 % 0.2-0.5 % traMADol traMADol No 1{table traMADol HCl 50 MG HCl 50 MG t_as_ne HCl 50 MG eded} amLODIPine amLODIPine No 1{table QD amLODIPine Besylate 10 Besylate 10 t} Besylate MG MG 10 MG Furosemide Furosemide No 1{table QD Furosemide 40 MG 40 MG t} 40 MG Sertraline Sertraline No Sertraline HCl 100 MG HCl 100 MG HCl 100 MG predniSONE predniSONE No 1{table BID predniSONE 20 MG 20 MG t} 20 MG Nebulizer - Nebulizer - No Nebulizer - Clopidogrel Clopidogrel No 1{table QD Clopidogre Bisulfate Bisulfate t} l 75 MG 75 MG Bisulfate 75 MG Combigan Combigan No Combigan 0.2-0.5 % [...] QD Aspirin 81 MG MG t} MG FreeStyle FreeStyle No FreeStyle Jonna Jonna Jonna [place] Metoclopram Metoclopram No 1{table TID Metoclopra mateus HCl 5 mateus HCl 5 t_befor mide HCl 5 MG MG e_meals MG } Lumigan Lumigan No 1{drop_ QD [place] 0.01 % 0.01 % into_af 0.01 % fected_ eye_in_ the_eve daron} Novofine Novofine No Novofine Pen Needle Pen Needle Pen Needle 32G X 6 MM 32G X 6 MM 32G X 6 MM metFORMIN metFORMIN No 2{table BID metFORMIN HCl 500 MG HCl 500 MG t_with_ HCl 500 MG a_meal} traZODone traZODone No 1{table QD traZODone HCl 50 MG HCl 50 MG t_at_be HCl 50 MG dtime_a s_neede d} Rosuvastati Rosuvastati No 1{table QD Rosuvastat n Calcium n Calcium t} in Calcium 40 MG 40 MG 40 MG Levemir Levemir No BID Levemir FlexTouch FlexTouch FlexTouch 100 UNIT/ML 100 UNIT/ML 100 UNIT/ML FreeStyle FreeStyle No FreeStyle Jonna 2 Jonna 2 Jonna 2 [place] - Continuous Continuous No Continuous Glucose Glucose Glucose Monitor Sup Monitor Sup Monitor - - Sup - Albuterol Albuterol No 3{ml_as QID Albuterol Sulfate Sulfate _needed Sulfate (2.5 (2.5 } (2.5 MG/3ML) MG/3ML) MG/3ML) 0.083% 0.083% 0.083% guaiFENesin guaiFENesin No 10{ml_a QID guaiFENesi -DM 100-10 -DM 100-10 s_neede n-DM MG/5ML MG/5ML d} 100-10 MG/5ML Ondansetron Ondansetron No Ondansetro HCl 4 MG HCl 4 MG n HCl 4 MG Advair Advair No 1{puff} BID Advair Diskus Diskus Diskus 250-50 250-50 250-50 MCG/DOSE MCG/DOSE MCG/DOSE Nitroglycer Nitroglycer No Nitroglyce in 0.4 MG in 0.4 MG rin 0.4 MG amLODIPine amLODIPine No 1{table QD amLODIPine Besylate 10 Besylate 10 t} Besylate MG MG 10 MG Ipratropium Ipratropium No 3{ml_as QID Ipratropiu -Albuterol -Albuterol _needed m-Albutero 0.5-2.5 (3) 0.5-2.5 (3) } l 0.5-2.5 MG/3ML MG/3ML (3) MG/3ML Combigan Combigan No Combigan 0.2-0.5 % 0.2-0.5 % 0.2-0.5 % traMADol traMADol No 1{table traMADol HCl 50 MG HCl 50 MG t_as_ne HCl 50 MG eded} amLODIPine amLODIPine No 1{table QD amLODIPine Besylate 10 Besylate 10 t} Besylate MG MG 10 MG Furosemide Furosemide No 1{table QD Furosemide 40 MG 40 MG t} 40 MG Sertraline Sertraline No Sertraline HCl 100 MG HCl 100 MG HCl 100 MG predniSONE predniSONE No 1{table BID predniSONE 20 MG 20 MG t} 20 MG Nebulizer - Nebulizer - No Nebulizer - Clopidogrel Clopidogrel No 1{table QD Clopidogre Bisulfate Bisulfate t} l 75 MG 75 MG Bisulfate 75 MG Magnesium Magnesium No 1{capsu QD Magnesium [...] FreeStyle FreeStyle No FreeStyle Jonna Jonna Jonna [place] Lumigan Lumigan No 1{drop_ QD Lumigan [...] FreeStyle FreeStyle No FreeStyle Jonna Jonna Jonna [place] - traZODone traZODone No 1{table QD traZODone [...] FreeStyle FreeStyle No FreeStyle Jonna Jonna Jonna [place] - Furosemide Furosemide No 1{table QD Furosemide [...] FreeStyle FreeStyle No FreeStyle Jonna Jonna Jonna [place] - traMADol traMADol No 1{table traMADol HCl [...] FreeStyle FreeStyle No FreeStyle Jonna Jonna Jonna [place] - traMADol traMADol No 1{table traMADol HCl [...] FreeStyle FreeStyle No FreeStyle Jonna Jonna Jonna [place] - Combigan Combigan No Combigan 0.2-0.5 % [...] FreeStyle Jonna 2 Jonna 2 Jonna 2 [place] - traMADol traMADol No 1{table traMADol HCl [...] FreeStyle FreeStyle No FreeStyle Jonna Jonna Jonna [place] - Furosemide Furosemide No 1{table QD Furosemide [...] 20 MG 20 MG t} 20 MG Metoclopram Metoclopram No 1{table TID Metoclopra mateus HCl 5 mateus HCl 5 t_befor mide HCl 5 MG MG e_meals MG } Lumigan Lumigan No 1{drop_ QD [place] 0.01 % 0.01 % into_af 0.01 % fected_ eye_in_ the_eve daron} Novofine Novofine No Novofine Pen Needle Pen Needle Pen Needle 32G X 6 MM 32G X 6 MM 32G X 6 MM metFORMIN metFORMIN No 2{table BID metFORMIN HCl 500 MG HCl 500 MG t_with_ HCl 500 MG a_meal} Spironolact Spironolact No Spironolac one 25 MG one 25 MG tone 25 MG Combigan Combigan No Combigan 0.2-0.5 % 0.2-0.5 % 0.2-0.5 % Levemir Levemir No BID [place] FlexTouch FlexTouch FlexTouch 100 UNIT/ML 100 UNIT/ML 100 UNIT/ML Rosuvastati Rosuvastati No 1{table QD Rosuvastat n Calcium n Calcium t} in Calcium 40 MG 40 MG 40 MG Clopidogrel Clopidogrel No 1{table QD Clopidogre Bisulfate Bisulfate t} l 75 MG 75 MG Bisulfate 75 MG FreeStyle FreeStyle No FreeStyle Jonna 2 Jonna 2 Jonna 2 [place] Advair Advair No 1{puff} BID Advair Diskus Diskus Diskus 250-50 250-50 250-50 MCG/DOSE MCG/DOSE MCG/DOSE traZODone traZODone No 1{table QD traZODone HCl 50 MG HCl 50 MG t_at_be HCl 50 MG dtime_a s_neede d} traMADol traMADol No 1{table traMADol HCl 50 MG HCl 50 MG t_as_ne HCl 50 MG eded} Ipratropium Ipratropium No 3{ml_as QID Ipratropiu -Albuterol -Albuterol _needed m-Albutero 0.5-2.5 (3) 0.5-2.5 (3) } l 0.5-2.5 MG/3ML MG/3ML (3) MG/3ML Continuous Continuous No Continuous Glucose Glucose Glucose Monitor Sup Monitor Sup Monitor - - Sup - amLODIPine amLODIPine No 1{table QD amLODIPine Besylate 10 Besylate 10 t} Besylate MG MG 10 MG Carvedilol Carvedilol No 1{table BID Carvedilol 25 MG 25 MG t_with_ 25 MG food} Aspirin 81 Aspirin 81 No 1{table QD Aspirin 81 MG MG t} MG Furosemide Furosemide No 1{table QD Furosemide 40 MG 40 MG t} 40 MG Magnesium Magnesium No 1{capsu QD Magnesium 400 MG 400 MG le_with 400 MG _a_meal } FreeStyle FreeStyle No FreeStyle Jonna Jonna Jonna [place] - Nitroglycer Nitroglycer No Nitroglyce in 0.4 MG in 0.4 MG rin 0.4 MG Pantoprazol Pantoprazol No Pantoprazo e Sodium 40 e Sodium 40 le Sodium MG MG 40 MG Albuterol Albuterol No 3{ml_as QID Albuterol Sulfate Sulfate _needed Sulfate (2.5 (2.5 } (2.5 MG/3ML) MG/3ML) MG/3ML) 0.083% 0.083% 0.083% guaiFENesin guaiFENesin No 10{ml_a QID guaiFENesi -DM 100-10 -DM 100-10 s_neede n-DM MG/5ML MG/5ML d} 100-10 MG/5ML Nebulizer - Nebulizer - No Nebulizer - Sertraline Sertraline No Sertraline HCl 100 MG HCl 100 MG HCl 100 MG predniSONE predniSONE No 1{table BID predniSONE 20 MG 20 MG t} 20 MG Pantoprazol Pantoprazol No Pantoprazo e Sodium [...] QD Aspirin 81 MG MG t} MG FreeStyle FreeStyle No FreeStyle Jonna Jonna Jonna [place] - Metoclopram Metoclopram No 1{table TID Metoclopra mateus HCl 5 mateus HCl 5 t_befor mide HCl 5 MG MG e_meals MG } Lumigan Lumigan No 1{drop_ QD [place] 0.01 % 0.01 % into_af 0.01 % fected_ eye_in_ the_eve daron} Novofine Novofine No Novofine Pen Needle Pen Needle Pen Needle 32G X 6 MM 32G X 6 MM 32G X 6 MM metFORMIN metFORMIN No 2{table BID metFORMIN HCl 500 MG HCl 500 MG t_with_ HCl 500 MG a_meal} traZODone traZODone No 1{table QD traZODone HCl 50 MG HCl 50 MG t_at_be HCl 50 MG dtime_a s_neede d} Rosuvastati Rosuvastati No 1{table QD Rosuvastat n Calcium n Calcium t} in Calcium 40 MG 40 MG 40 MG Levemir Levemir No BID Levemir FlexTouch FlexTouch FlexTouch 100 UNIT/ML 100 UNIT/ML 100 UNIT/ML FreeStyle FreeStyle No FreeStyle Jonna 2 Jonna 2 Jonna 2 [place] - Continuous Continuous No Continuous Glucose Glucose Glucose Monitor Sup Monitor Sup Monitor - - Sup - Albuterol Albuterol No 3{ml_as QID Albuterol Sulfate Sulfate _needed Sulfate (2.5 (2.5 } (2.5 MG/3ML) MG/3ML) MG/3ML) 0.083% 0.083% 0.083% guaiFENesin guaiFENesin No 10{ml_a QID guaiFENesi -DM 100-10 -DM 100-10 s_neede n-DM MG/5ML MG/5ML d} 100-10 MG/5ML Ondansetron Ondansetron No Ondansetro HCl 4 MG HCl 4 MG n HCl 4 MG Advair Advair No 1{puff} BID Advair Diskus Diskus Diskus 250-50 250-50 250-50 MCG/DOSE MCG/DOSE MCG/DOSE Nitroglycer Nitroglycer No Nitroglyce in 0.4 MG in 0.4 MG rin 0.4 MG Ipratropium Ipratropium No 3{ml_as QID Ipratropiu -Albuterol -Albuterol _needed m-Albutero 0.5-2.5 (3) 0.5-2.5 (3) } l 0.5-2.5 MG/3ML MG/3ML (3) MG/3ML Combigan Combigan No Combigan 0.2-0.5 % 0.2-0.5 % 0.2-0.5 % traMADol traMADol No 1{table traMADol HCl 50 MG HCl 50 MG t_as_ne HCl 50 MG eded} amLODIPine amLODIPine No 1{table QD amLODIPine Besylate 10 Besylate 10 t} Besylate MG MG 10 MG Furosemide Furosemide No 1{table QD Furosemide 40 MG 40 MG t} 40 MG Sertraline Sertraline No Sertraline HCl 100 MG HCl 100 MG HCl 100 MG predniSONE predniSONE No 1{table BID predniSONE 20 MG 20 MG t} 20 MG Nebulizer - Nebulizer - No Nebulizer - Clopidogrel Clopidogrel No 1{table QD Clopidogre Bisulfate [...] QD Aspirin 81 MG MG t} MG FreeStyle FreeStyle No FreeStyle Jonna Jonna Jonna [place] - Metoclopram Metoclopram No 1{table TID Metoclopra mateus HCl 5 mateus HCl 5 t_befor mide HCl 5 MG MG e_meals MG } Lumigan Lumigan No 1{drop_ QD [place] 0.01 % 0.01 % into_af 0.01 % fected_ eye_in_ the_eve daron} Novofine Novofine No Novofine Pen Needle Pen Needle Pen Needle 32G X 6 MM 32G X 6 MM 32G X 6 MM metFORMIN metFORMIN No 2{table BID metFORMIN HCl 500 MG HCl 500 MG t_with_ HCl 500 MG a_meal} traZODone traZODone No 1{table QD traZODone HCl 50 MG HCl 50 MG t_at_be HCl 50 MG dtime_a s_neede d} Rosuvastati Rosuvastati No 1{table QD Rosuvastat n Calcium n Calcium t} in Calcium 40 MG 40 MG 40 MG Immunizations Ordered Immunization Filled Immunization Date Status Commen ts Source Name Name FLUZONE HIGH DOSE FLUZONE HIGH DOSE 2022-01-14 [facility] OVER [facility] OVER 65 11:55:00 - [facility] FLUZONE HIGH DOSE FLUZONE HIGH DOSE 2022-01-14 Completed [facility] OVER 65 OVER 65 11:55:00 [facility] FLUZONE HIGH DOSE FLUZONE HIGH DOSE 2022-01-14 Completed [facility] OVER 65 OVER 65 11:55:00 - [facility] FLUZONE HIGH DOSE FLUZONE HIGH DOSE 2022-01-14 Completed [facility] OVER 65 OVER 65 11:55:00 - [facility] FLUZONE HIGH DOSE FLUZONE HIGH DOSE 2022-01-14 Completed [facility] OVER 65 OVER 65 11:55:00 [facility] FLUZONE HIGH DOSE FLUZONE HIGH DOSE 2022-01-14 Completed [facility] OVER 65 OVER 65 11:55:00 [facility] FLUZONE HIGH DOSE FLUZONE HIGH DOSE 2022-01-14 Completed [facility] OVER 65 OVER 65 11:55:00 - [facility] FLUZONE HIGH DOSE FLUZONE HIGH DOSE 2022-01-14 Completed [facility] OVER 65 OVER 65 11:55:00 [facility] FLUZONE HIGH DOSE FLUZONE HIGH DOSE 2022-01-14 Completed [facility] OVER 65 OVER 65 11:55:00 [facility] Vital Signs Vital Name Observation Time Observation Value Comments Source HEIGHT 2020-07-03 17:00:00 154.9 cm WEIGHT 2020-07-03 17:00:00 103.556 kg HEIGHT 2022-01-22 13:56:00 157.5 cm WEIGHT 2022-01-22 13:56:00 90.719 kg HEIGHT 2022-01-22 13:56:00 157.5 cm WEIGHT 2022-01-22 13:56:00 90.719 kg HEIGHT 2022-01-22 13:56:00 157.5 cm WEIGHT 2022-01-22 13:56:00 90.719 kg height 2022-01-14 10:20:00 62 [in_i] [facility] weight 2022-01-14 10:20:00 230.0 [lb_av] [facility] temperature 2022-01-14 10:20:00 97.3 [degF] [facility] bmi 2022-01-14 10:20:00 42.06 kg/m2 [facility] oximetry 2022-01-14 10:20:00 95 % [facility] respiratory rate 2022-01-14 10:20:00 16 /min [facility] blood pressure 2022-01-14 10:20:00 136 mm[Hg] [facility] - systolic [facility] blood pressure 2022-01-14 10:20:00 78 mm[Hg] [facility] - diastolic [facility] height 2021-12-10 11:40:00 62 [in_i] [facility] weight 2021-12-10 11:40:00 224 [lb_av] [facility] bmi 2021-12-10 11:40:00 40.97 kg/m2 [facility] height 2021-09-30 12:00:00 62 [in_i] [facility] weight 2021-09-30 12:00:00 224 [lb_av] [facility] bmi 2021-09-30 12:00:00 40.97 kg/m2 [facility] height 2021-09-08 13:00:00 62 [in_i] [facility] weight 2021-09-08 13:00:00 223 [lb_av] [facility] temperature 2021-09-08 13:00:00 97.5 [degF] [facility] bmi 2021-09-08 13:00:00 40.78 kg/m2 [facility] oximetry 2021-09-08 13:00:00 96 % [facility] respiratory rate 2021-09-08 13:00:00 20 /min [facility] blood pressure 2021-09-08 13:00:00 150 mm[Hg] [facility] - systolic [facility] blood pressure 2021-09-08 13:00:00 88 mm[Hg] [facility] - diastolic [facility] height 2021-06-02 13:00:00 62 [in_i] [facility] weight 2021-06-02 13:00:00 242 [lb_av] [facility] temperature 2021-06-02 13:00:00 98.5 [degF] [facility] bmi 2021-06-02 13:00:00 44.26 kg/m2 [facility] oximetry 2021-06-02 13:00:00 91 % [facility] blood pressure 2021-06-02 13:00:00 120 mm[Hg] [facility] - systolic [facility] blood pressure 2021-06-02 13:00:00 70 mm[Hg] [facility] - diastolic [facility] height 2021-06-02 13:40:00 62 [in_i] [facility] weight 2021-06-02 13:40:00 242 [lb_av] [facility] temperature 2021-06-02 13:40:00 98.5 [degF] [facility] bmi 2021-06-02 13:40:00 44.26 kg/m2 [facility] oximetry 2021-06-02 13:40:00 91 % [facility] respiratory rate 2021-06-02 13:40:00 18 /min Comm on [facility] - [facility] blood pressure 2021-06-02 13:40:00 120 mm[Hg] [facility] - systolic [facility] blood pressure 2021-06-02 13:40:00 70 mm[Hg] [facility] - diastolic [facility] height 2021-03-04 11:00:00 62 [in_i] [facility] weight 2021-03-04 11:00:00 220 [lb_av] [facility] bmi 2021-03-04 11:00:00 40.23 kg/m2 [facility] height 2020-12-19 16:40:00 62 [in_i] [facility] weight 2020-12-19 16:40:00 220 [lb_av] [facility] bmi 2020-12-19 16:40:00 40.23 kg/m2 [facility] HEIGHT 2020-07-03 17:00:00 154.9 cm WEIGHT 2020-07-03 17:00:00 103.556 kg Systolic blood 2022-01-25 16:00:00 120 mm[Hg] [facility] Diastolic blood 2022-01-25 16:00:00 56 mm[Hg] [facility] rate 2022-01-25 16:00:00 76 /min [facility] Body temperature 2022-01-25 16:00:00 36.78 Leonor [facility] Respiratory rate 2022-01-25 16:00:00 18 /min [facility] Oxygen saturation in 2022-01-25 16:00:00 91 /min [facility] Arterial blood by Medical Ce [facility]teron Pulse oximetry Body height 2022-01-23 01:22:00 157.5 cm [facility] Body weight 2022-01-23 01:22:00 104.327 kg [facility] BMI 2022-01-23 01:22:00 42.07 kg/m2 [facility] Procedures Procedure Date / Time Performed Performing Clinician Jessenia rudy POCT-GLUCOSE METER 2022-01-25 12:45:00 Vita, Joann [facility] POCT-GLUCOSE METER 2022-01-25 07:38:00 Vita, [facility] CBC (HEMOGRAM ONLY) 2022-01-25 04:46:00 Vita, [facility] BASIC METABOLIC PANEL 2022-01-25 04:46:00 Vita, Joann Yunielalyx I [facility] MAGNESIUM 2022-01-25 04:46:00 Vita, [facility] ECG 12-LEAD 2022-01-25 01:14:58 Unknown, 7 [facility] ECG 12-LEAD 2022-01-25 01:14:58 Unknown, 7 [facility] ECG 12-LEAD 2022-01-25 01:14:58 Unknown, 7 [facility] ECG 12-LEAD 2022-01-25 01:14:09 Unknown, 7 [facility] ECG 12-LEAD 2022-01-25 01:14:09 Unknown, 7 [facility] ECG 12-LEAD 2022-01-25 01:14:09 Unknown, 7 [facility] ECG 12-LEAD 2022-01-25 01:09:07 Unknown, 7 [facility] ECG 12-LEAD 2022-01-25 01:09:07 Unknown, 7 [facility] POCT-GLUCOSE METER 2022-01-24 22:02:00 [facility] 2022-01-24 16:38:00 Viat, [facility] 2D ECHO W/ DOPPLER 2022-01-24 12:58:06 Alison Pope [facility] (CW/PW/COLOR) [facility] POCT-GLUCOSE METER 2022-01-24 12:36:00 Vita, [facility] POCT-GLUCOSE METER 2022-01-24 08:08:00 Vita, [facility] CBC (HEMOGRAM ONLY) 2022-01-24 04:40:00 Vita, [facility] BASIC METABOLIC PANEL 2022-01-24 04:40:00 Vita, [facility] MAGNESIUM 2022-01-24 04:40:00 Vita, [facility] POCT-GLUCOSE METER 2022-01-23 21:53:00 Vita, [facility] POCT-GLUCOSE METER 2022-01-23 17:16:00 Vita, [facility] XR CHEST 1 VIEW PORTABLE 2022-01-23 15:02:00 [facility] B-TYPE NATRIURETIC FACTOR 2022-01-23 13:57:00 [facility] VENOUS DOPPLER LEG, RIGHT 2022-01-23 12:00:00 Vita, Joann Yunielmary lou victoriano [facility] POCT-GLUCOSE METER 2022-01-23 11:55:00 Vita, [facility] POCT-GLUCOSE METER 2022-01-23 08:42:00 Vita, [facility] MRA HEAD WITHOUT IV 2022-01-23 08:18:00 Vita, [facility] CONTRAST [facility] MRA NECK WITHOUT IV 2022-01-23 08:18:00 Vita, [facility] MR BRAIN WITHOUT IV 2022-01-23 08:18:00 Vita, Joann Anna [facility] POCT-GLUCOSE METER 2022-01-23 06:25:00 Vita, Joann Anna [facility] HEMOGLOBIN A1C 2022-01-23 05:59:00 Vita, Joann Hyunna [facility] CBC (HEMOGRAM ONLY) 2022-01-23 05:59:00 Vita, Joann Briceunna [facility] BASIC METABOLIC PANEL 2022-01-23 05:59:00 Vita, Joann Anna [facility] I [facility] MAGNESIUM 2022-01-23 05:59:00 [facility] VITAMIN B12 2022-01-23 05:59:00 Vita, Joann mary loua [facility] RPR 2022-01-23 05:59:00 [facility]-1 AG W/HIV-1&2 2022-01-23 05:59:00 Vita, Joann Ann a [facility] LIPID PANEL 2022-01-23 05:59:00 Alison Pope [facility] SODIUM, RANDOM URINE 2022-01-23 01:28:00 Vita, Joann Hymary loua [facility] CREATININE, RANDOM URINE 2022-01-23 01:28:00 [facility] UREA NITROGEN, RANDOM 2022-01-23 01:28:00 Vita, Joann Anna I [facility] URINE [facility] POCT-GLUCOSE METER 2022-01-22 23:10:00 Vita, Joann Hymary loua [facility] US RENAL COMPLETE 2022-01-22 21:35:00 Vita, Joannrosa elena Briceunna [facility] SARS-COV2/RT-PCR ([facility] & 2022-01-22 19:22:00 Vita, Joann Anna [facility] REF [facility] URINE CULTURE 2022-01-22 14:57:00 Harvey Jackman [facility] CBC W/PLT COUNT & AUTO 2022-01-22 14:57:[address] [facility] COMPREHENSIVE METABOLIC 2022-01-22 14:57:00 Harvey Jackman [facility] URINALYSIS W/ REFLEX 2022-01-22 14:57:00 Harvey Jakcman [facility] URINE CULTURE [facility] MAGNESIUM 2022-01-22 14:57:00 Harvey Jackman [facility] CBC W/PLT COUNT & AUTO 2022-01-22 14:57:[address] I [facility] CTA BRAIN 2022-01-22 14:19:00 [facility] CTA CAROTID 2022-01-22 14:19:[address] [facility] [address] BRAIN CEREBRAL 2022-01-22 14:19:00 [facility] PERFUSION ANALYSIS Medical Cente r CT BRAIN/STROKE TEST 2022-01-22 13:42:00 Harvey Jackman [facility] Plan of Care Planned Activity Planned Date Details Comments Source Future Scheduled 2023-01-[address] [facility] Test 00:00:00 [facility] Screening (12+) [code = Tobacco Cessation Counseling and Screening (12+)] Future Scheduled 2023-01-[address] [...] 00:00:00 measurement Medical Center (procedure) [code = 04073624] Future Scheduled 2020-10-[address] [facility] (procedure) [code = 64388118] Future Scheduled 2020-10-[address] [facility] (procedure) [code = 27105398] Future Scheduled 2020-10-[address] [facility] 00[facility]00 measurement [facility] Center (procedure) [code = 34820995] Future Scheduled 1991-12-12 SHINGLES VACCINES (1 [facility] [...] 00:00:00 examination Medical Center (regime/therapy) [code = 124452139] Future Scheduled 1951-12-12 Urine screening for [facility] Test 00:00:00 protein (procedure) Medical Center [code = 995854470] Future Scheduled 1951-12-[address] DIAB[address] EYE EXAM [facility] Test 00:00:00 [code = DIABETIC EYE Medical Center EXAM] Future Scheduled 1951-12-[address] [facility] 00:[facility]00 examination Medical Center (regime/therapy) [code = 996442063] Future Scheduled 1951-12-12 Urine screening for [facility] Test 00:00:00 protein (procedure) Medical Center [code = 194797042] Future Scheduled 1951-12-[address] DIABETIC EYE EXAM [facility] Test 00:00:00 [code = DIABETIC EYE Medical Center EXAM] Future Scheduled 1951-12-[address] [facility] Test 00:00:00 examination Medical Center (regime/therapy) [code = 750811720] Future Scheduled 1951-12-12 Urine screening for [facility] Test 00:00:00 protein (procedure) Medical Center [code = 886060050] Future Scheduled 1951-12-[address] DIABETIC EYE EXAM [facility] Test 00:00:00 [code = DIABETIC EYE Medical Center EXAM] Future Scheduled 1951-12-[address] [facility] 00:00:00 examination Medical Center (regime/therapy) [code = 983387278] Future Scheduled 1951-12-12 Urine screening for [facility] Test 00:00:00 protein (procedure) Medical Center [code = 024198029] Future Scheduled 1947-12-12 PNEUMOCOCCAL 65+ YRS [facility] [...] DXA [facility] 00:00:00 SCAN] [facility] Future Scheduled 1941 DXA SCAN [code = DXA [facility] Test 00:00:00 SCAN] [facility] Future Scheduled 1941 DXA SCAN [code = DXA [facility] Test 00:00:00 SCAN] [facility] Future Scheduled 1941 DXA SCAN [code = DXA [facility] Test 00:00:00 SCAN] [facility] Encounters Start End Encounter Admission Attending Care Care Encounter Source Date/Time Date/Time Type Type Clinicians Facility Department ID 2022-03-17 Outpatient Addie Slaughter [facility] [id number] 2 Common 09:54:02 [id number] [facility] 2022-03-01 Outpatient Slaughter, Na STLMLC STLMLC [id number] 2 Common 09:54:02 [facility] 2022-02-15 Outpatient Slaughter, Na STLMLC STLMLC [id number] 2 Common 16:33:01 [facility] 2022-01-22 [facility] [id number] 00:[facility]:00 Encounter [facility] 2022-01-22 [facility], [facility] [id number] 00:00:00 Encounter [facility] 2022-01-12 Outpatient Slaughter, Na STLMLC STLMLC [id number] 2 Common 14:58:01 [facility] 2021-12-08 Outpatient Slaughter, Na STLMLC STLMLC [id number] 2 Common 10:45:00 [facility] 2021-09-29 Outpatient Slaughter, Na STLMLC STLMLC [id number] 2 Common 11:51:00 [facility] 2021-09-28 Outpatient Slaughter, Na STLMLC STLMLC [id number] 2 Common 10:30:01 [facility] 2021-09-04 Outpatient Slaughter, Na STLMLC STLMLC [id number] 2 Common 13:45:00 [facility] 2021-06-02 Outpatient Slaughter, Na STLMLC STLMLC [id number] 2 Common 13:14:01 [facility] 2021-06-01 Outpatient Slaughter, Na STLMLC STLMLC [id number] 2 Common 14:17:00 [facility] 2021-05-29 Outpatient Slaughter, Na STLMLC STLMLC [id number] 2 Common 09:59:01 [facility] 2021-05-06 Outpatient Slaughter, Na STLMLC STLMLC [id number] 2 Common 16:04:00 [facility] 2021-04-15 Outpatient Slaughter, Na STLMLC STLMLC [id number] 2 Common 14:24:29 [id number] [facility] 2021-04-15 Outpatient Slaughter, Na STLMLC STLMLC [id number] 2 Common 14:24:14 [id number] [facility] 2021-04-15 Outpatient Slaughter, Na STLMLC STLMLC [id number] 2 Common 14:19:03 [id number] [facility] 2021-04-15 Outpatient Slaughter, Na STLMLC STLMLC [id number] 2 Common 14:06:54 79086 [facility] 2021-04-15 Outpatient Slaughter, Na STLMLC STLMLC [id number] 2 Common 13:02:26 93557 [facility] 2021-04-15 Outpatient Slaughter, Na STLMLC STLMLC [id number] 2 Common 13:01:50 96930 [facility] 2021-04-15 Outpatient Slaughter, Na STLMLC STLMLC [id number] 2 Common 13:01:22 20153 [facility] 2021-04-15 Outpatient Slaughter, Na STLMLC STLMLC [id number] 2 Common 12:57:37 [id number] [facility] 2021-04-15 Outpatient Slaughter, Na STLMLC STLMLC [id number] 2 Common 12:33:49 03599 [facility] 2021-04-15 Outpatient Slaughter, Na STLMLC STLMLC [id number] 2 Common 12:32:45 [id number] [facility] 2021-04-15 Outpatient Slaughter, Na STLMLC STLMLC [id number] 2 Common 12:31:08 [id number] [facility] 2021-04-15 Outpatient Slaughter, Na STLMLC STLMLC [id number] 2 Common 12:26:24 [id number] [facility] 2021-04-15 Outpatient Slaughter, Na STLMLC STLMLC [id number] 2 Common 12:26:03 [id number] [facility] 2021-04-15 Outpatient Slaughter, Na STLMLC STLMLC [id number] 2 Common 12:24:50 [id number] [facility] 2021-04-15 Outpatient Slaughter, Na STLMLC STLMLC [id number] 2 Common 11:59:32 [id number] [facility] 2021-04-15 Outpatient Slaughter, Na STLMLC STLMLC [id number] 2 Common 11:26:16 [id number] [facility] 2021-04-15 Outpatient Slaughter, Na STLMLC STLMLC [id number] 2 Common 11:19:17 [id number] [facility] 2021-04-15 Outpatient Slaughter, Na STLMLC STLMLC [id number] 2 Common 11:18:55 [id number] [facility] 2020-07-03 Inpatient ER [facility] Cardiology [id number] [facility] 16:58:00 ASTRID 2022-03-16 2022-03-16 (TEL) STLMLC STLMLC [id number] Co mmon 00:00:00 00:00:00 [facility] 2022-03-04 2022-03-04 (TEL) STLMLC STLMLC [id number] Co mmon 00:00:00 00:00:00 [facility] 2022-02-16 2022-02-16 OFFICE STLMLC STLMLC [id number] Co mmon 00:00:00 00:00:00 VISIT [facility] LEVEL 4 [facility] 2022-02-09 2022-02-09 (TEL) STLMLC STLMLC [id number] Co mmon 00:00:00 00:00:00 [facility] 2022-02-05 2022-02-05 (TEL) STLMLC STLMLC [id number] Co mmon 00:00:00 00:00:00 [facility] 2022-02-02 2022-02-02 (TEL) STLMLC STLMLC [id number] Co mmon 00:00:00 00:00:00 [facility] 2022-02-01 2022-02-01 OFFICE STLMLC STLMLC [id number] Co mmon 00:00:00 00:00:00 VISIT EST Spir it PT LEVEL 3 - [facility] 2022-01-26 2022-01-26 (TEL) STLMLC STLMLC [id number] Co mmon 00:00:00 00:00:00 [facility] 2022-01-25 2022-01-25 Outpatient [facility] [id number] [facility] 00:00:00 23:59:00 Sean Medicin e 2022-01-22 2022-01-25 Inpatient ER VITA [facility] Emergency [id number] SLE 13:28:00 17:48:00 JOANN 2022-01-22 2022-01-25 [facility] [id number] 13:28:00 17:48:00 Encounter [facility] 2022-01-22 [facility]22[facility]01-[address] [facility] [id number] 13:28:00 17:48:00 [facility] 2022-01-25 Orders [facility] [id number] 00:00:00 00:00:00 Only [facility] 2022-01-25 2022-01-25 Orders [facility] [id number] 00:00:00 00:00:00 Only [facility] 2022-01-22 2022-01-22 Travel [facility] [id number] [facility] 00:[facility]00 00:00:00 [facility] 2022-01-22 2022-01-22 [id number] 00:[facility]00 00:00:00 [facility] 2022-01-14 2022-01-14 OFFICE STLMLC STLMLC [id number] Co mmon 00:00:00 00:00:00 VISIT [facility] ESTAB PT - CHI LEVEL 4 [facility] 2022-01-11 2022-01-11 (TEL) STLMLC STLMLC [id number] Co mmon 00:00:00 00:00:00 [facility] 2022-01-08 2022-01-08 (TEL) STLMLC STLMLC [id number] Co mmon 00:00:00 00:00:00 [facility] 2021-12-14 2021-12-14 (TEL) STLMLC STLMLC [id number] Co mmon 00:00:00 00:00:00 [facility] 2021-12-10 2021-12-10 OFFICE STLMLC STLMLC [id number] Co mmon 00:00:00 00:00:00 VISIT [facility] PT - CHI LEVEL 4 [facility] 2021-12-04 2021-12-04 (TEL) STLMLC STLMLC [id number] Co mmon 00:00:00 00:00:00 [facility] 2021-10-29 2021-10-29 (TEL) STLMLC STLMLC [id number] Co mmon 00:00:00 00:00:00 [facility] 2021-09-30 2021-09-30 OFFICE STLMLC STLMLC [id number] Co mmon 00:00:00 00:00:00 VISIT EST Spir it PT LEVEL 3 [facility] 2021-09-24 2021-09-24 (TEL) STLMLC STLMLC [id number] Co mmon 00:00:00 00:00:00 [facility] 2021-09-14 2021-09-14 (TEL) STLMLC STLMLC [id number] Co mmon 00:00:00 00:00:00 [facility] 2021-09-08 2021-09-08 OFFICE STLMLC STLMLC [id number] Co mmon 00:00:00 00:00:00 VISIT [facility] PT - CHI LEVEL 4 [facility] 2021-06-23 2021-06-23 (TEL) STLMLC STLMLC [id number] Co mmon 00:00:00 00:00:00 [facility] 2021-06-02 2021-06-02 SUB ANNUAL STLMLC STLMLC [id number] Common 00:00:00 00:00:00 [facility] VISIT [facility] 2021-06-02 2021-06-02 OFFICE STLMLC STLMLC [id number] Co mmon 00:00:00 00:00:00 VISIT EST Spir it PT LEVEL 3 [facility] 2021-04-23 2021-04-23 (TEL) STLMLC STLMLC [id number] Co mmon 00:00:00 00:00:00 [facility] 2021-03-04 2021-03-04 OFFICE STLMLC STLMLC [id number] Co mmon 00:00:00 00:00:00 VISIT [facility] PT - CHI LEVEL 4 [facility] 2020-12-19 2020-12-19 OFFICE STLMLC STLMLC [id number] Co mmon 00:00:00 00:00:00 VISIT [facility] PT - CHI LEVEL 4 [facility] 2020-12-09 2020-12-09 Outpatient STLMLC STLMLC [id number] Common 00:00:00 00:00:00 [facility] 2020-09-26 2020-09-26 Outpatient STLMLC STLMLC [id number] Common 00:00:00 00:00:00 [facility] 2020-09-25 2020-09-25 Outpatient STLMLC STLMLC [id number] Common 00:00:00 00:00:00 [facility] 2020-09-08 2020-09-08 Outpatient STLMLC STLMLC [id number] Common 00:00:00 00:00:00 [facility] 2020-08-27 2020-08-27 Outpatient STLMLC STLMLC [id number] Common 00:00:00 00:00:00 [facility] 2020-08-19 2020-08-19 Outpatient Miller_S_AH VFP VFP [id number] [place] 05:09:00 05:09:00 [id number] [facility] 2020-07-30 2020-07-30 Outpatient STLMLC STLMLC [id number] Common 00:00:00 00:00:00 [facility] 2020-07-17 2020-07-17 Outpatient STLMLC STLMLC [id number] Common 00:00:00 00:00:00 [facility] 2020-07-16 2020-07-16 Outpatient Curly-Tashao VFP VFP [id number] [facility] 02:54:00 02:54:00 _A_AH [id number] Family Practic e 2020-07-16 2020-07-16 Outpatient Curly-Mbayo VFP VFP [id number] [facility] 02:54:00 02:54:00 _A_AH [id number] Family Practic e 2020-05-21 2020-05-21 Outpatient STLMLC STLMLC [id number] Common 00:00:00 00:00:00 [facility] 2020-05-20 2020-05-20 Outpatient STLMLC STLMLC [id number] Common 00:00:00 00:00:00 [facility] 2020-05-12 2020-05-12 Outpatient STLMLC STLMLC [id number] Common 00:00:00 00:00:00 [facility] 2020-04-30 2020-04-30 Outpatient STLMLC STLMLC [id number] Common 00:00:00 00:00:00 [facility] 2020-04-18 2020-04-18 Outpatient STLMLC STLMLC [id number] Common 00:00:00 00:00:00 [facility] 2020-02-06 2020-02-06 Outpatient STLMLC STLMLC [id number] Common 00:00:00 00:00:00 [facility] 2020-01-16 2020-01-16 Outpatient STLMLC STLMLC [id number] Common 00:00:00 00:00:00 [facility] 2020-01-15 2020-01-15 Outpatient [facility] ST[facility] [id number] Common 00:00:00 00:00:00 [facility] 2019-12-17 2019-12-17 Outpatient [facility] ST[facility] [id number] Common 00:00:00 00:00:00 [facility] 2019-11-21 2019-11-21 [facility] [id number] Common 15:40:00 15:40:[address] [facility] 2019-10-22 2019-10-22 [facility] [id number] Common 10:38:00 10:38:[address] [facility] 2019-10-02 2019-10-02 [facility] [id number] Common 11:02:00 11:02:[address] [facility] 2019-09-26 2019-09-26 [facility] [id number] Common 14:15:00 14:15:[address] [facility] 2019-09-20 2019-09-20 [facility] [id number] Common 16:10:00 16:10:[address] [facility] 2019-09-13 2019-09-13 [facility] [id number] Common 15:19:00 15:19:[address] [facility] 2019-09-06 2019-09-06 [facility] [id number] Common 16:13:00 16:13:[address] [facility] 2019-09-04 2019-09-04 [facility] 30 [id number] Common 11:20:00 11:20:[address] [facility] 2019-08-28 2019-08-28 [facility] [id number] Common 09:58:00 09:58:[address] [facility] [address] [facility] 2019-08-07 2019-08-07 [facility] 30 [id number] Common 09:40:00 09:40:[address] [facility] 2019-07-24 2019-07-24 [facility] 30 [id number] Common 16:54:00 16:54:[address] [facility] 2019-07-17 2019-07-17 [facility] 30 [id number] Common 16:20:00 16:20:[address] [facility] 2019-07-13 2019-07-13 [facility] 30 [id number] Common 09:00:00 09:00:[address] [facility] 2019-05-09 2019-05-09 Outpatient Curly-Mbayo VFP VFP [id number] [id number] [facility] 07:15:00 07:15:00 _A_AH 43060 [facility] 2019-05-09 2019-05-09 Outpatient Curly[facility]Mbayo VFP VFP [id number] 07:15:00 07:15:00 _A_AH 66736 Family Practic e 2019-05-09 2019-05-09 Outpatient Curly-Mbayo VFP VFP [id number] [id number] [facility] 07:15:00 07:15:00 _A_AH 25028 Family Practic e Results Test Description Test Time Test Comments Results Result Comments Source R 2022-01-25 14:38:51 Test Item Value Reference Range [facility]ation [facility] (test code = 420) Nonreactive Nonreactive POC-Glucose [id number] 12:58:04 Test Item Value Reference Range Interpretation Comments POC-Glucose Meter (test 154 mg/dL 70-110 H : TE STED AT [facility] code = 1538) [address] [place] [address], 770 30: Fuel Storage Technician/Techni daisy ID = [id number] for QIAN HOOD Lab Interpretation (test Abnormal code = 73696-4) [facility] [id number] 12:58:04 Test Item Value Reference Range Interpretation Comments POC-Glucose Meter (test 154 mg/dL 70-110 H : TE STED AT [facility] code = 1538) [address] [facility], 770 30: Fuel Storage Technician/Techni daisy ID = [id number] for NYLA HOODIL [place] Lab Interpretation (test Abnormal code = 97215-6) [facility] [id number] 12:58:04 Test Item Value Reference Range Interpretation Comments POC-Glucose Meter (test 154 mg/dL 70-110 H : TE STED AT [facility] code = 1538) [address] [facility], 770 30: Fuel Storage Technician/Techni daisy ID = [id number] for QIAN HOOD [place] Lab Interpretation (test Abnormal code = 45077-1) [facility] [id number] 12:58:04 Test Item Value Reference Range Interpretation Comments POC-GLUCOSE METER 154 mg/dL 70-110 H : [facility] 6720 (BEAKER) (test code = [facility], 1538) 81338: Fuel Storage Technician/Techni daisy ID = [id number] for ZEN BELLAFRANCESLIVIER Silver POCT-GLUCOSE [id number] 07:53:47 Test Item Value Reference Range Interpretation Comments POC-GLUCOSE METER 132 mg/dL 70-110 H : [facility] 6720 (BEAKER) (test code = [facility], 1538) 92897: Fuel Storage Technician/Techni daisy ID = [id number] for NYLA GUIDRYILIA BASIC METABOLIC [id number] 06:28:27 Test Item Value Reference Range Interpretation [...] not appl icable for dialysis patien ts Fuel Storage Technician ID - LAYTON [id number] 06:28:27 Test Item Value Reference Range Interpretation Comments MAGNESIUM (BEAKER) (test code = 1.9 mg/dL 1.6-2.6 627) Fuel Storage Technician ID - LAYTON LCBC (HEMOGRAM ONLY)2022-01-25 05:24:35 [...] 0-0 (BEAKER) (test code = 413) POCT-GLUCOSE [id number] 22:37:28 Test Item Value Reference Range Interpretation Comments POC-GLUCOSE METER 211 mg/dL 70-110 H : TESTED A T [facility] 6720 (BEAKER) (test code = [facility], 1538) 16684: Fuel Storage Technician/Techni daisy ID = [id number] for CA MFIELD, CRYSTAL 2D Echo W/Doppler(CW/PW/Color)2022-01-24 17:35:48Ejection FractionSLEH ECHO HEARTLAB [facility]CK[facility] W/Doppler(CW/PW/Color)2022-01-24 17:35:48Ejection FractionSLEH ECHO HEARTLAB [facility]2D Echo W/Doppler(CW/PW/Color) 2022-01-24 17:35:48Ejection FractionSLEH ECHO HEARTLAB MKHarl[facility] HospitalPOCT-GLUCOSE [id number] 16:50:38 Test Item Value Reference Range Interpretation Comments POC-GLUCOSE METER 289 mg/dL 70-110 H : TESTED A T [facility] 6720 (BEAKER) (test code = [facility], 1538) 50059: Fuel Storage Technician/Techni adisy ID = [id number] for An derson, Radha POCT-GLUCOSE [id number] 12:48:56 Test Item Value Reference Range Interpretation Comments POC-GLUCOSE METER 297 mg/dL 70-110 H : TESTED A T [facility] 6720 (BEAKER) (test code = [facility], 1538) 45607: Fuel Storage Technician/Techni daisy ID = [id number] for An derson, Radha POCT-GLUCOSE [id number] 08:20:48 Test Item Value Reference Range Interpretation Comments POC-GLUCOSE METER 294 mg/dL 70-110 H : TESTED A T [facility] 6720 (BEAKER) (test code = [facility], 1538) 10521: Fuel Storage Technician/Techni daisy ID = [id number] for An derson, Radha POCT-GLUCOSE [id number] 07:53:11 Test Item Value Reference Range Interpretation Comments POC-GLUCOSE METER 347 mg/dL 70-110 H : TESTED A T [facility] 6720 (BEAKER) (test code = [facility], 1538) 94535: Fuel Storage Technician/Techni daisy ID = [id number] for Ra mos, May Venous doppler leg, [id number] 06:50:36Ejection FractionSLEH ECHO HEARTLAB [facility] [facility] Hospital[facility] do[facility] leg, [id number] 06:50:36Ejection FractionSLEH ECHO HEARTLAB [facility] HospitalVenous doppler leg, [id number] 06:50:36Ejection FractionSLEH ECHO HEARTLAB MKHarl[facility] HospitalMAGNESIUM2022-11-06 05:32:04 Test Item Value Reference Range Interpretation Comments MAGNESIUM (BEAKER) (test code = 2.0 mg/dL 1.6-2.6 627) Fuel Storage Technician ID - BHUMIKA WBASIC METABOLIC [id number] 05:32:03 Test Item Value Reference Range Interpretation [...] not appl icable for dialysis patien ts Fuel Storage Technician ID - BHUMIKA WCBC (HEMOGRAM ONLY)2022-01-24 04:47:08 [...] 0-0 (BEAKER) (test code = 413) POCT-GLUCOSE [id number] 17:28:54 Test Item Value Reference Range Interpretation Comments POC-GLUCOSE METER 334 mg/dL 70-110 H : TESTED A T [facility] 6720 (BEAKER) (test code = [place], 1538) 67522: Fuel Storage Technician/Techni daisy ID = [id number] for Wi lson, [employer]iance RAD, CHEST, 1 VIEW, NON [id number] 15:32:00Reason for exam:->evaluate for edema, effusions, currently on S9Zeveik this be performed at the medical center [place]?->YesCH[facility] : 1940 Sex: FFINALREPORT [...] Reference Range Interpretation Comments B-TYPE NATRIURETIC PEPTIDE ([facility]RAUL[facility]) 130 pg/mL 0-100 H (test code = 700) Fuel Storage Technician ID - ADMINPOCT-GLUCOSE [id number] 12:07:10 Test Item Value Reference Range Interpretation Comments POC-GLUCOSE METER 260 mg/dL 70-110 H : TESTED A T [facility] 6720 (eCircle) (test code = [place], 1538) 61[address]: Fuel Storage Technician/Techni daisy ID = [id number] for Lamberto Puente HIV-1 ANTIGEN WITH HIV-1/2 [id number] 11:29:35 Test Item Value Reference Range Interpretation Comments HIV-1 ANTIGEN WITH HIV 1\\T\\2 Nonreactive Nonreactive ANTIBODY (2) (eCircle) (test code = 2586) Fuel Storage Technician ID - ADMINHEMOGLOBIN [id number] 10:24:05 Test Item Value Reference Range Interpretation Comments HEMOGLOBIN A1C 10.4 % See_Comment H [Automated m essage] ELECTROPHORESIS ([facility]) The system which (test code = 3811) generated this result transmitted ref erence range: <=5.6%. The reference range was not used to int erpret this result as normal/abnormal . "The A1c is measured using a NGS-certified method. HbA1c value equal to or greater than 6.5% as thediagnosis cutoff for diabetes. An HbA1c value of 5.7- 6.4% indicates increased risk for diabetes (prediabetes)."Fuel Storage Technician ID - ADMPOCT- GLUCOSE [id number] 09:48:11 Test Item Value Reference Range Interpretation Comments POC-GLUCOSE METER 370 mg/dL 70-110 H : TESTED A T [facility] 6720 ([facility]) (test code = [facility], 1538) 75106: Fuel Storage Technician/Techni daisy ID = [id number] for Sumeet xochitlromán Lamberto POCT-GLUCOSE [id number] 09:48:10 Test Item Value Reference Range Interpretation Comments POC-GLUCOSE METER 335 mg/dL 70-110 H : Notified RN/MD: ([facility]) (test code = TESTED AT [facility] 6720 1538) [facility], [address]: Fuel Storage Technician/Techni daisy ID = [id number] for Pamela baker LIPID [id number] 08:46:58 Test Item Value Reference Range Interpretation Comments TRIGLYCERIDES ([facility]) 316 mg/dL Speci men slightly (test code = 540) hemolyzed CHOLESTEROL (eCircle) 80 mg/dL Specime n slightly (test code = 631) hemolyzed HDL CHOLESTEROL ([facility]) 16 mg/dL (test code = 976) LDL CHOLESTEROL 1 mg/dL CALCULATED ([facility]) (test code = 633) Triglyceride Reference Range: Low Risk <150 Borderline 150-199 High Risk 200- 499 Very High Risk >=500Cholesterol Reference Range: Low Risk <200 Borderline 200-239 High Risk >240HDL Cholesterol Reference Range: Low Risk >=60 High Risk <40LDL Cholesterol Reference Range: Optimal <100 Near Optimal 100-129 Borderline 130-159 High 160-189 Very High >=190 Fuel Storage Technician ID - SARA WMR, MRA, BRAIN, WITHOUT [id number] 08:25:00Reason for exam:- >Ischemic Stroke Evaluation, dysarthria [facility] : 1940 Sex: FFINALREPORT [...] arteries: Normal flow-related enhancement within the 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 MRA [...] Verified Date/Time: 01/23/2022 08:25:45 MR, BRAIN, WITHOUT [id number] 08:20:00Reason for exam:->Ischemic Stroke EvaluationL[facility] : 1940 Sex: FFINALREPORT [...] Siena Pires Verified Date/Time: 01/23/2022 08:20:35 VITAMIN [id number] 07:14:04 Test Item Value Reference Range Interpretation Comments VITAMIN B12 (BEAKER) (test code = 909 pg/mL 213-816 H 774) Fuel Storage Technician ID - BHUMIKA [id number] 07:02:19 Test Item Value Reference Range Interpretation Comments MAGNESIUM (BEAKER) 2.1 mg/dL 1.6-2.6 Specimen slightly (test code = 627) hemolyzed Fuel Storage Technician MARY BAI WBASIC METABOLIC [id number] 07:02:19 Test Item Value Reference Range Interpretation [...] not appl icable for dialysis patien ts Fuel Storage Technician MARY BAI WCBC (HEMOGRAM ONLY)2022-01-23 06:11:42 Test Item [...] (BEAKER) (test code = 413) Sodium, random [id number] 03:04:34 Test Item Value Reference Range Interpretation Comments Sodium Urine (test 81 meq/L code = 2955-3) TORO (test code = Reference Range: No TORO) NormalsOperator [facility] N[facility], random [id number] 03:04:34 Test Item Value Reference Range Interpretation Comments Urea Nitrogen, Ur 325 mg/dL (test code = 3095-7) TORO (test code = Reference Range: No TORO) NormalsOperator [facility] Hospitalodium, random [id number] 03:04:34 Test Item Value Reference Range Interpretation Comments Sodium Urine (test 81 meq/L code = 2955-3) TORO (test code = Reference Range: No TORO) NormalsOperator [facility] HospitalU[facility] Nitrogen, random [id number] 03:04:34 Test Item Value Reference Range Interpretation Comments Urea Nitrogen, Ur 325 mg/dL (test code = 3095-7) TORO (test code = Reference Range: No TORO) NormalsOperator [facility] Hospitalodium, random [id number] 03:04:34 Test Item Value Reference Range Interpretation Comments Sodium Urine (test 81 meq/L code = 2955-3) TORO (test code = Reference Range: No TORO) NormalsOperator [facility] HospitalU[facility] Nitrogen, random [id number] 03:04:34 Test Item Value Reference Range Interpretation Comments Urea Nitrogen, Ur 325 mg/dL (test code = 3095-7) TORO (test code = Reference Range: No TORO) NormalsOperator ID - ADMIN [facility] ValleyODIUM, RANDOM [id number] 03:04:34 Test Item Value Reference Range Interpretation Comments SODIUM URINE (BEAKER) (test code = 81 meq/L 243) Reference Range: No NormalsOperator ID - ADMINUREA NITROGEN, RANDOM URINE 2022-01-23 03:04:34 Test Item Value Reference Range Interpretation Comments UREA NITROGEN URINE (BEAKER) (test 325 mg/dL code = 538) Reference Range: No NormalsOperator ID - ADMINCreatinine, random [id number] 03:04:33 Test Item Value Reference Range Interpretation Comments Creatinine, Ur 41.0 mg/dL (test code = 2161-8) TORO (test code = Reference Range: No TORO) NormalsOperator ID - ADMIN [facility] random [id number] 03:04:33 Test Item Value Reference Range Interpretation Comments Creatinine, Ur 41.0 mg/dL (test code = 2161-8) TORO (test code = Reference Range: No TORO) NormalsOperator ID - ADMIN [facility], random [id number] 03:04:33 Test Item Value Reference Range Interpretation Comments Creatinine, Ur 41.0 mg/dL (test code = 2161-8) TORO (test code = Reference Range: No TORO) NormalsOperator ID - ADMIN [facility]isCREATININE, RANDOM [id number] 03:04:33 Test Item Value Reference Range Interpretation Comments CREATININE URINE (BEAKER) (test 41.0 mg/dL code = 375) Reference Range: No NormalsOperator ID - ADMINPOCT-GLUCOSE [id number] 00:09:08 Test Item Value Reference Range Interpretation Comments POC-GLUCOSE METER 408 mg/dL 70-110 HH : Notified RN/MD: (MASTER) (test code = TESTED AT [facility] 6720 1538) [facility], [address]: Fuel Storage Technician/Techni daisy ID = [id number] for Ra , July U/S, RENAL, [id number] 22:42:00Reason for exam:->acute kidney injury [facility] : 1940 Sex: FFINALREPORT [...] SARS-Co V-2 (test code = target nucleic 26754-4) acids are not detected in [facility] s specimen. Negat errol results do not [...] revoked sooner. Fact Sheet for Healthcare Providers: https://www.[employer]/Documents/Xp ert%20Xpress%20SAR S%20CoV-2/Fact%20S heets/302-3802%20S ARS-COV-2%20HEALTH CARE%20PROVIDERS%2 0FACT%20SHEET.pdf Fact Sheet for Healthcare Patients: https://wwwMixer Labs/Documents/Xp ert%20Xpress%20SAR S%20CoV-2/Fact%20S heets/302-3801%20S ARS-COV-2%20PATIEN T%20FACT%20SHEET.p df Lab Interpretation Normal (test code = 34404-6) [facility]-CoV[facility]/RT-PCR (Asymptomatic ONLY)2022-01-22 20:55:56 Test Item Value Reference Interpretation Comments Range SARS-COV2/RT-PCR Negative Negative The SARS-Co V-2 (test code = target nucleic 06342-7) acids are not detected in thi s [...] revoked sooner. Fact Sheet for Healthcare Providers: https://www.[employer]/Documents/Xp ert%20Xpress%20SAR S%20CoV-2/Fact%20S heets/302-3802%20S ARS-COV-2%20HEALTH CARE%20PROVIDERS%2 0FACT%20SHEET.pdf Fact Sheet for Healthcare Patients: https://wwwMixer Labs/Documents/Xp ert%20Xpress%20SAR S%20CoV-2/Fact%20S heets/302-3801%20S ARS-COV-2%20PATIEN T%20FACT%20SHEET.p df Lab Interpretation Normal (test code = 93186-5) [facility] (Asymptomatic ONLY)2022-01-22 20:55:56 Test Item Value Reference Interpretation Comments Range SARS-COV2/RT-PCR Negative Negative The SARS-Co V-2 (test code = target nucleic 43830-0) acids are not detected in thi s [...] revoked sooner. Fact Sheet for Healthcare Providers: https://www.[employer]/Documents/Xp ert%20Xpress%20SAR S%20CoV-2/Fact%20S heets/302-3802%20S ARS-COV-2%20HEALTH CARE%20PROVIDERS%2 0FACT%20SHEET.pdf Fact Sheet for Healthcare Patients: https://www.[employer]/Documents/Xp ert%20Xpress%20SAR S%20CoV-2/Fact%20S heets/302-3801%20S ARS-COV-2%20PATIEN T%20FACT%20SHEET.p df Lab Interpretation Normal (test code = 54184-9) [facility]OV2/[facility])2022-01-22 20:55:56 Test Item Value Reference Range Interpretation Comments SARS-COV2/RT-PCR Negative Negative The SARS-Co V-2 target (test code = nucleic acids a re not 5546059) detected in thi s specimen. Negative result [...] revoked sooner. Fact Sheet for Healthcare Providers: https://www.[employer]/Documents/Xpert%20Xpress%20SARS%20CoV-2/Fact%20Sheets/302-3802%62UTCS-DGC-6%20 HEALTHCARE%20PROVIDERS%20FACT%20SHEET.pdf Fact Sheet for Healthcare Patients: https://www.[employer]/Documents/Xpert%20Xp ress%20SARS%20CoV-2/Fact%20Sheets/302-3801%06QCKH-GFW-0%20PATIENT%20FACT%20SHEET .pdfUrinalysis w/Microscopic + Reflex to [id number] 15:58:03 Test Item Value Reference Range Interpretation Comments Color, UA (test code Yellow = 5778-6) Clarity, UA (test Hazy code = 5767-9) Specific [place], UA 1.012 1.001-1.035 (test code = 5811-5) pH, UA (test code = 6.0 5.0-8.0 5803-2) Protein, UA (test 30 mg/dL Negative A code = 86591-5) Glucose, UA (test Negative Negative code = 365) Ketones, UA (test Negative Negative code = 2514-8) Bilirubin, UA (test Negative Negative code = 81084-6) Blood, UA (test code Negative Negative = 27188-1) Nitrite, UA (test Negative Negative code = 5802-4) Leukocytes, UA (test Large Negative A code = 5799-2) Urobilinogen, UA 0.2 0.2-1.0 (test code = 32103-7) RBC, UA (test code = 1 See_Comment [Autom ated 26629-4) message] The system which generated this result transmit clemente reference range : /HPF. The reference range was not used to interpret this result as normal/abnormal . WBC, UA (test code = 176 See_Comment [Autom ated 5821-4) message] The system which generated this result transmit clemente reference range : /HPF. The reference range was not used to interpret this result as normal/abnormal . Sj Epithel, UA 1 See_Comment [Automate d (test code = 00145-1) messag e] The system which generated this result transmit clemente reference range : /HPF. The reference range was not used to interpret this result as normal/abnormal . Specimen Source (test code = 2795) TORO (test code = TORO) Fuel Storage Technician ID - [auto]Fuel Storage Technician ID - tech Lab Interpretation Abnormal (test code = 77174-0) [facility]/Microscopic + Reflex to Culture 2022-01-22 15:58:03 Test Item Value Reference Range Interpretation Comments Color, UA (test code Yellow = 5778-6) Clarity, UA (test Hazy code = 5767-9) Specific [place], UA 1.012 1.001-1.035 (test code = 5811-5) pH, UA (test code = 6.0 5.0-8.0 5803-2) Protein, UA (test 30 mg/dL Negative A code = 34135-4) Glucose, UA (test Negative Negative code = 365) Ketones, UA (test Negative Negative code = 2514-8) Bilirubin, UA (test Negative Negative code = 47557-7) Blood, UA (test code Negative Negative = 36180-1) Nitrite, UA (test Negative Negative code = 5802-4) Leukocytes, UA (test Large Negative A code = 5799-2) Urobilinogen, UA 0.2 0.2-1.0 (test code = 83719-1) RBC, UA (test code = 1 See_Comment [Autom ated 65266-8) message] The system which generated this result transmit clemente reference range : /HPF. The reference range was not used to interpret this result as normal/abnormal . WBC, UA (test code = 176 See_Comment [Autom ated 5821-4) message] The system which generated this result transmit clemente reference range : /HPF. The reference range was not used to interpret this result as normal/abnormal . Sj Epithel, UA 1 See_Comment [Automate d (test code = 17936-6) messag e] The system which generated this result transmit clemente reference range : /HPF. The reference range was not used to interpret this result as normal/abnormal . Specimen Source (test code = 2795) TORO (test code = TORO) Fuel Storage Technician ID - [auto]Fuel Storage Technician ID - tech Lab Interpretation Abnormal (test code = 01283-1) [facility]/Microscopic + Reflex to Culture 2022-01-22 15:58:03 Test Item Value Reference Range Interpretation Comments Color, UA (test code Yellow = 5778-6) Clarity, UA (test Hazy code = 5767-9) Specific [place], UA 1.012 1.001-1.035 (test code = 5811-5) pH, UA (test code = 6.0 5.0-8.0 5803-2) Protein, UA (test 30 mg/dL Negative A code = 49459-2) Glucose, UA (test Negative Negative code = 365) Ketones, UA (test Negative Negative code = 2514-8) Bilirubin, UA (test Negative Negative code = 06253-4) Blood, UA (test code Negative Negative = 98714-3) Nitrite, UA (test Negative Negative code = 5802-4) Leukocytes, UA (test Large Negative A code = 5799-2) Urobilinogen, UA 0.2 0.2-1.0 (test code = 63562-9) RBC, UA (test code = 1 See_Comment [Autom ated 53275-6) message] The system which generated this result [...] 1 See_Comment [Automate d (test code = 33684-3) messag e] The system which generated this result transmit clemente reference range : /HPF. The reference range was not used to interpret this result as normal/abnormal . Specimen Source (test code = 2795) TORO (test code = TORO) Fuel Storage Technician ID - [auto]Fuel Storage Technician ID - tech Lab Interpretation Abnormal (test code = 53049-7) [facility] REFLEX URINE [id number] 15:58:03 Test Item Value Reference Range Interpretation [...] = 516) SOURCE(BEAKER) (test code = 2795) Fuel Storage Technician ID - [auto]Fuel Storage Technician ID - techCOMPREHENSIVE METABOLIC [id number] 15:35:37 Test Item Value Reference Range Interpretation [...] not appl icable for dialysis patien ts Fuel Storage Technician ID - [id number] 15:31:08 Test Item Value Reference Range Interpretation Comments MAGNESIUM (BEAKER) (test code = 2.0 mg/dL 1.6-2.6 627) Fuel Storage Technician ID - BSCBC W/PLT COUNT & AUTO [id number] 15:07:18 Test Item Value Reference Range Interpretation [...] (BEAKER) (test code = 2801) CT, CTANGIO [id number] 14:59:00Reason for exam:->Symptoms onset less than 6 hours and NIHSS 6 or greater [facility] : 1940 Sex: FFINALREPORT CLINICAL [...] Angiogram There is no evidence for a [place] of [place] large vessel occlusion. There is [...] or territorial hypoperfusion. No evidence for a tan[place] of [place] large vessel occlusion. No evidence of hemodynamically significant stenosis in the cervical carotid or vertebral arteries by NASCET criteria. Signed: Tima Nunn MDReport Verified Date/Time: 01/22/2022 14:59:39 CT, CAROTID, [id number] 14:59:00 Reason for exam:->Symptoms onset less than 6 hours and NIHSS 6 or greater [facility] : 1940 Sex: FFINALREPORT [...] Angiogram There is no evidence for a tanana of Ivy large vessel occlusion. There is [...] or territorial hypoperfusion. No evidence for a tanana of Ivy large vessel occlusion. No evidence of hemodynamically significant stenosis in the cervical carotid or vertebral arteries by NASCET criteria. Signed: Tima Nunn MDReport Verified Date/Time: 01/22/2022 14:59:39 CT, CEREBRAL PERFUSION ANALYSIS 2022-01-22 14:59:00Reason for exam:->Symptom onset less than 6 hours and NIHSS 6 or greater [facility] 1940 Sex: FFINALREPORT [...] Angiogram There is no evidence for a tanana of Ivy large vessel occlusion. There is [...] or territorial hypoperfusion. No evidence for a tanana of Ivy large vessel occlusion. No evidence of hemodynamically significant stenosis in the cervical carotid or vertebral arteries by NASCET criteria. Signed: Tima Nunn MDReport Verified Date/Time: 01/22/2022 14:59:39 [facility], [facility]RAIN/STROKE [id number] 13:51:00[facility] : 1940 Sex: FFINALREPORT [...] Verified Date/Time: 01/22/2022 13:51:06 Microalbumin/Creat Ratio, Random [id number] 00:00:00 Test Item Value Reference Range Interpretation Comments Creatinine, Urine (test code = 2161-8) 62.3 Not Estab. Albumin, Urine (test code = 15747-0) 472.6 Not Estab. Alb/Creat Ratio (test code = 25909-7) 759 0-29 POCT-GLUCOSE [id number] 11:31:00 Test Item Value Reference Range Interpretation Comments POC-GLUCOSE METER 193 mg/dL 70-110 H : TESTED A T [facility] 6720 (BEAKER) (test code = [facility], 1538) 19098: Fuel Storage Technician/Techni daisy ID = [id number] for CR UZ ARPAN, ODILI A POCT-GLUCOSE [id number] 08:31:00 Test Item Value Reference Range Interpretation Comments POC-GLUCOSE METER 230 mg/dL 70-110 H : TESTED A T [facility] 6720 (BEAKER) (test code = [facility], 1538) 00034: Fuel Storage Technician/Techni daisy ID = [id number] for CR UZ ARPAN, ODILI A BASIC METABOLIC [id number] 05:55:00 Test Item Value Reference Range Interpretation [...] S NOT APPLICABLE FOR DIALYSIS PATIEN TS. Fuel Storage Technician ID - PETER MCBC W/PLT COUNT & AUTO [id number] 05:31:00 Test Item Value Reference Range Interpretation [...] PERCENT (BEAKER) (test code = 2801) POCT-GLUCOSE [id number] 21:21:00 Test Item Value Reference Range Interpretation Comments POC-GLUCOSE METER 137 mg/dL 70-110 H : Notified RN/MD: (BEAKER) (test code = TESTED AT [place] [address] 1538) [facility], [address]: Fuel Storage Technician/Techni daisy ID = [id number] for SA ONDINA GEORGE [id number] 17:06:00 Test Item Value Reference Range Interpretation Comments ACTIVATED CLOTTING TIME 164 sec : 74 -137 seconds, (BEAKER) (test code = Baseli ne: TESTED AT [facility]) [address], [facility] 30: Fuel Storage Technician/Techni daisy ID = [id number] for FE RRARI JACKIE, CLAUDE [id number] 16:53:00 Test Item Value Reference Range Interpretation Comments ACTIVATED CLOTTING TIME 175 sec : 74 -137 seconds, (BEAKER) (test code = Baseli ne: TESTED AT [facility]) [address], 770 30: Fuel Storage Technician/Techni daisy ID = [id number] for FE RRARI JACKIE, CLAUDE [id number] 16:53:00 Test Item Value Reference Range Interpretation Comments ACTIVATED CLOTTING TIME 208 sec : 74 -137 seconds, (BEAKER) (test code = Baseli ne: TESTED AT [facility]) [address], [facility] 30: Fuel Storage Technician/Techni daisy ID = [id number] for FE RRARI JACKIE, CLAUDE [id number] 16:06:00 Test Item Value Reference Range Interpretation Comments ACTIVATED CLOTTING TIME 296 sec : 74 -137 seconds, (BEAKER) (test code = Baseli ne: TESTED AT 441) [facility] [address] [facility], 770 30: Fuel Storage Technician/Techni daisy ID = [id number] for CLAUDE HOLDER POCT-GLUCOSE [id number] 12:21:00 Test Item Value Reference Range Interpretation Comments POC-GLUCOSE METER 127 mg/dL 70-110 H : TESTED A T [facility] 6720 (BEAKER) (test code = [facility], 1538) 64899: Fuel Storage Technician/Techni daisy ID = [id number] for Constance David basim POCT-GLUCOSE [id number] 08:51:00 Test Item Value Reference Range Interpretation Comments POC-GLUCOSE METER 163 mg/dL 70-110 H : TESTED A T [facility] 6720 (BEAKER) (test code = [facility], 1538) 30454: Fuel Storage Technician/Techni daisy ID = [id number] for Igcolette She basim BASIC METABOLIC [id number] 06:38:00 Test Item Value Reference Range Interpretation [...] S NOT APPLICABLE FOR DIALYSIS PATIEN TS. Fuel Storage Technician ID - BHUMIKA WCBC W/PLT COUNT & AUTO [id number] 05:45:00 Test Item Value Reference Range Interpretation [...] PERCENT (BEAKER) (test code = 2801) POCT-GLUCOSE [id number] 22:11:00 Test Item Value Reference Range Interpretation Comments POC-GLUCOSE METER 210 mg/dL 70-110 H : TESTED A T [facility] 6720 (BEAKER) (test code = [facility], 153) 01888: Fuel Storage Technician/Techni daisy ID = [id number] for Gertrude Waldrop POCT-GLUCOSE [id number] 18:24:00 Test Item Value Reference Range Interpretation Comments POC-GLUCOSE METER 157 mg/dL 70-110 H : TESTED A T [facility] 6720 (BEAKER) (test code = [facility], 1538) 32136: Fuel Storage Technician/Techni daisy ID = [id number] for Wanda Wakefield POCT-GLUCOSE [id number] 12:10:00 Test Item Value Reference Range Interpretation Comments POC-GLUCOSE METER 146 mg/dL 70-110 H : TESTED A T [facility] 6720 (BEAKER) (test code = [facility], 1538) 01801: Fuel Storage Technician/Techni daisy ID = [id number] for Wanda Wakefield POCT-GLUCOSE [id number] 08:39:00 Test Item Value Reference Range Interpretation Comments POC-GLUCOSE METER 113 mg/dL 70-110 H : TESTED A T [facility] 6720 (BEAKER) (test code = [facility], 1538) 96532: Fuel Storage Technician/Techni daisy ID = [id number] for Wanda Wakefield BASIC METABOLIC [id number] 06:06:00 Test Item Value Reference Range Interpretation [...] S NOT APPLICABLE FOR DIALYSIS PATIEN TS. Fuel Storage Technician ID - PIAYA LCBC W/PLT COUNT & AUTO [id number] 05:24:00 Test Item Value Reference Range Interpretation [...] PERCENT (BEAKER) (test code = 2801) POCT-GLUCOSE [id number] 21:49:00 Test Item Value Reference Range Interpretation Comments POC-GLUCOSE METER 158 mg/dL 70-110 H : TESTED A T [facility] 6720 (BEAKER) (test code = [facility], 153) 32665: Fuel Storage Technician/Techni daisy ID = [id number] for Manuel Marcelino POCT-GLUCOSE [id number] 18:10:00 Test Item Value Reference Range Interpretation Comments POC-GLUCOSE METER 152 mg/dL 70-110 H : TESTED A T [facility] 6720 (BEAKER) (test code = [facility], 1538) 54794: Fuel Storage Technician/Techni daisy ID = [id number] for Igbalajochace, She basim POCT-GLUCOSE [id number] 12:52:00 Test Item Value Reference Range Interpretation Comments POC-GLUCOSE METER 149 mg/dL 70-110 H : TESTED A T [facility] 6720 (BEAKER) (test code = [facility], 1538) 04869: Fuel Storage Technician/Techni daisy ID = [id number] for Igbalajobi, She basim POCT-GLUCOSE [id number] 09:18:00 Test Item Value Reference Range Interpretation Comments POC-GLUCOSE METER 141 mg/dL 70-110 H : TESTED A T [facility] 6720 (BEAKER) (test code = [facility], 1538) 20949: Fuel Storage Technician/Techni daisy ID = [id number] for Igbalajobi, She basim BASIC METABOLIC [id number] 07:12:00 Test Item Value Reference Range Interpretation [...] S NOT APPLICABLE FOR DIALYSIS PATIEN TS. Fuel Storage Technician ID - DBCBC W/PLT COUNT & AUTO [id number] 06:50:00 Test Item Value Reference Range Interpretation [...] PERCENT (BEAKER) (test code = 2801) POCT-GLUCOSE [id number] 23:42:00 Test Item Value Reference Range Interpretation Comments POC-GLUCOSE METER 245 mg/dL 70-110 H : TESTED A T [facility] 6720 (BEAKER) (test code = [facility], [facility]) 78256: Fuel Storage Technician/Techni daisy ID = [id number] for Manuel Marcelino POCT-GLUCOSE [id number] 17:40:00 Test Item Value Reference Range Interpretation Comments POC-GLUCOSE METER 225 mg/dL 70-110 H : TESTED A T [facility] 6720 (BEAKER) (test code = [facility], 153) 03591: Fuel Storage Technician/Techni daisy ID = [id number] for Igbalajobi, She basim POCT-GLUCOSE [id number] 13:07:00 Test Item Value Reference Range Interpretation Comments POC-GLUCOSE METER 224 mg/dL 70-110 H : TESTED A T [facility] 6720 (BEAKER) (test code = [facility], 1538) 05635: Fuel Storage Technician/Techni daisy ID = [id number] for Igbalajobi, She basim POCT-GLUCOSE [id number] 09:47:00 Test Item Value Reference Range Interpretation Comments POC-GLUCOSE METER 162 mg/dL 70-110 H : TESTED A T [facility] 6720 (BEAKER) (test code = [place], 1538) 92386: Fuel Storage Technician/Techni daisy ID = [id number] for Constance David basim PLATELET AGGREGATION: FUNCTION [id number] 09:33:00 Test Item Value Reference Range Interpretation Comments [id number] Jw Garcia M.D. (BEAKER) (test code = (electonic signature) 5518) PLATELET COUNT AGG 246 K/CU MM 150-450 (BEAKER) (test code = 2656) ADP (BEAKER) (test code 25 % 62-100 L = 4654) PLATELET RICH 271 k/cu mm 200-300 PLASMA(BEAKER) (test code = 2134) PLATELET FUNCTION SCREEN Decreased aggregation INTERPRETATION (BEAKER) with ADP which (test code = 7595) indicates platelet dysfunction that may be due to medication effect, uremia, or other platelet function disorders. Clinical correlation is required. Platelet Function Screen results may be falsely low with platelet counts<75,000/cu mm.Fuel Storage Technician ID- [id number] METABOLIC [id number] 04:41:00 Test Item Value Reference Range Interpretation [...] S NOT APPLICABLE FOR DIALYSIS PATIEN TS. Fuel Storage Technician ID - EDASICBC W/PLT COUNT & AUTO [id number] 04:24:00 Test Item Value Reference Range Interpretation [...] PERCENT (BEAKER) (test code = 2801) POCT-GLUCOSE [id number] 21:48:00 Test Item Value Reference Range Interpretation Comments POC-GLUCOSE METER 236 mg/dL 70-110 H : TESTED A T [facility] 6720 (BEAKER) (test code = [facility], 1538) 60976: Fuel Storage Technician/Techni daisy ID = [id number] for Cassie Abdi POCT-GLUCOSE [id number] 17:47:00 Test Item Value Reference Range Interpretation Comments POC-GLUCOSE METER 224 mg/dL 70-110 H : TESTED A T [facility] 6720 (BEAKER) (test code = [facility], 153) 51327: Fuel Storage Technician/Techni daisy ID = [id number] for KEIRY LOZANOCAITLIN POCT-GLUCOSE [id number] 13:24:00 Test Item Value Reference Range Interpretation Comments POC-GLUCOSE METER 245 mg/dL 70-110 H : TESTED A T [facility] 6720 (BEAKER) (test code = [facility], 153) 19809: Fuel Storage Technician/Techni daisy ID = [id number] for Alanna Garces RAD, CHEST, 1 VIEW, NON [id number] 11:21:00Reason for exam:->preop evalShould this be performed at the bedside?->Yes [facility] : 1940 Sex: FFINAL REPORT EXAMINATION: RAD, CHEST, 1 VIEW, NON DEPT. INDICATION: 79-year-old female, preoperative examination. COMPARISON: None. FINDINGS:Mild to moderate cardiomegaly. Pulmonary dasha and vasculature are within normal limits. No evidence of consolidation. No pleural effusion. No pneumothorax. Abyr-zd-dnnhkzjg degenerative changes of the bilateral shoulders. Visualized soft tissues are unremarkable. IMPRESSION:No evidence of pneumonia or other acute cardiopulmonary abnormality. Mild to moderate cardiomegaly. Signed: More Bullardeport Verified Date/Time: 07/05/2020 11:21:30 Reading Location: [facility] C013Y CT Body Reading Room POCT-GLUCOSE [id number] 08:59:00 Test Item Value Reference Range Interpretation Comments POC-GLUCOSE METER 195 mg/dL 70-110 H : TESTED A T [facility] 6720 (BEAKER) (test code = [facility], 1538) 30213: Fuel Storage Technician/Techni daisy ID = [id number] for CAITLIN KENNEY BASIC METABOLIC [id number] 06:20:00 Test Item Value Reference Range Interpretation [...] S NOT APPLICABLE FOR DIALYSIS PATIEN TS. Fuel Storage Technician ID - EDASICBC W/PLT COUNT & AUTO [id number] 05:33:00 Test Item Value Reference Range Interpretation [...] (test code = 416) BASOPHILS ABSOLUTE COUNT ([facility]) 0.02 K/ L 0.01-0.08 (test code = 417) IMMATURE GRANULOCYTES-RELATIVE 0 % 0-1 PERCENT (AKER) (test code = 2801) POCT-GLUCOSE [id number] 20:52:00 Test Item Value Reference Range Interpretation Comments POC-GLUCOSE METER 292 mg/dL 70-110 H : TESTED A T [facility] 6720 ([facility]) (test code = [facility], 153) 65136: Fuel Storage Technician/Techni daisy ID = [id number] for Cassie Abdi POCT-GLUCOSE [id number] 19:01:00 Test Item Value Reference Range Interpretation Comments POC-GLUCOSE METER 294 mg/dL 70-110 H : TESTED A T [facility] 6720 ([facility]) (test code = [facility], 1538) 07419: Fuel Storage Technician/Techni daisy ID = [id number] for IgConstance alvarenga basim POCT-GLUCOSE [id number] 12:40:00 Test Item Value Reference Range Interpretation Comments POC-GLUCOSE METER 159 mg/dL 70-110 H : TESTED A T [facility] 6720 ([facility]) (test code = [facility], 1538) 19729: Fuel Storage Technician/Techni daisy ID = [id number] for IgbalaConstance stephens basim POCT-GLUCOSE [id number] 09:34:00 Test Item Value Reference Range Interpretation Comments POC-GLUCOSE METER 101 mg/dL 70-110 : TESTED A T [facility] 6720 ([place]) (test code = [facility], 153) 37691: Fuel Storage Technician/Techni daisy ID = [id number] for Igbalajobi She basim HEMOGLOBIN [id number] 08:28:00 Test Item Value Reference Range Interpretation Comments HEMOGLOBIN A1C (AKER) (test code = 9.6 % 4.3-6.1 H 368) TSH/FREE T4 IF [id number] 06:08:00 Test Item Value Reference Range Interpretation Comments THYROID STIMULATING HORMONE 0.972 uIU/mL 0.350-4.940 ([facility]) (test code = 772) Fuel Storage Technician ID - EDASIBASIC METABOLIC [id number] 05:44:00 Test Item Value Reference Range Interpretation [...] S NOT APPLICABLE FOR DIALYSIS PATIEN TS. Fuel Storage Technician ID - EDASICBC W/PLT COUNT & AUTO [id number] 05:22:00 Test Item Value Reference Range Interpretation [...] PERCENT (BEAKER) (test code = 2801) SARS-COV2/RT-PCR ([facility])2020-07-04 03:49:00 Test Item Value Reference Range Interpretation Comments SARS-COV2/RT-PCR (test Negative Not Detected, Negative, code = 2090340) See external report for linked test SARS-COV-2 PERFORMING LAB [facility] (test code = 0421335) Negative result for this test determines that [...] the Hughes SARS-CoV-2 assay.Fact Sheet for Healthcare Providers:https://www.[employer].hughes/jaylene/RT_SAR K-OvU-0_FGD_Bwxg_Bzfvk_53-764674.pdfFact Sheet for Healthcare Patients:https://www.[employer].hughes/s al/LY_JXOD-FrN-4_Vyvfxey_Luez_Rqshf_OO_68-773272Y1.pdfPerforming Laboratory:[facility] [place] [address] POCT-GLUCOSE [id number] 23:10:00 Test Item Value Reference Range Interpretation Comments POC-GLUCOSE METER 302 mg/dL 70-110 H : TESTED A T [facility] 6720 (BEAKER) (test code = M[facility] Seth [facility], 1538) 09907: Fuel Storage Technician/Techni daisy ID = [id number] for [facility] BASIC METABOLIC [id number] 18:18:00 Test Item Value Reference Range Interpretation [...] S NOT APPLICABLE FOR DIALYSIS PATIEN TS. Fuel Storage Technician ID - ADMINHEPATIC FUNCTION [id number] 18:18:00 Test Item Value Reference Range Interpretation [...] (test code = 28 U/L 6-55 347) Fuel Storage Technician ID - ADMINPROTHROMBIN TIME/[id number] 18:15:00 Test Item Value Reference Range Interpretation Comments PROTIME (BEAKER) 14.0 seconds 11.9-14.2 (test code = 759) INR (BEAKER) (test 1.11 See_Comment [Automat ed message] code = 370) The system LIFT12 generated this result transmitted ref erence range: [...] mechanical heart valves.CBC W/PLT COUNT & AUTO [id number] 18:00:00 Test Item Value Reference Range Interpretation [...] PERCENT (BEAKER) (test code = 2801) POCT-GLUCOSE [id number] 17:50:00 Test Item Value Reference Range Interpretation Comments POC-GLUCOSE METER 187 mg/dL 70-110 H : TESTED A T [facility] 6720 (BEAKER) (test code = [facility] [place], 1538) 77469: Fuel Storage Technician/Techni daisy ID = [id number] for Constance David [id number] 16:34:00 RUN DATE: 10/19/18 [facility] - LAB *LIVE* PAGE 1 RUN TIME: 1634 Specimen Inquiry RUN USER: INTERFACE PATIENT: MEGHNA BIRD LOC: MAGGIE Berman #: [id number] AGE/SX: 77/F ROOM: [facility] RE10/12/18REG DR: Alfredo Cantu MD : 41 BED: 1 DIS: 10/13/18 STATUS: DIS Marcela TLOC: SPEC #: [id number] RECD: 10/16/18 STATUS: GARDENIA LONGORIA #: [id number] JENNA: 10/13/[address]: Alfredo Cantu MD ENTERED: 10/16/18 SP TYPE: SURG OTHR DR: Thao Crooks MD, Nizam Mohammad MD [place], Frank EMDORDERED: AB/PAS MAUREEN, SURG PATH LVL 4, PATH STAIN GROU COPIES TO: Thao Crooks MD [address] [place] [address] [place] [address] [address] [email or web address] Baldemar Simeon MD [address] [place] [address] Babar Wang MD [address] [address] HISTOLOGY: TISSUE ID BLK PCS ALFREDO LEV PROCEDURE DISPOSITION ____ ___ ___ ___ STOMACH, NOS A 1 1 AB/PAS MAUREEN STOMACH, NOS A 1 2 PATH STAIN GROU PROCEDURES: ALBLUE (10/16/18) PAS (10/16/18) SURG PATH LVL 4 (10/16/18) PATH STAIN GROU (10/16/18) TISSUES: A. STOMACH, NOS - GASTRIC POLYP ADENO MASS CONTINUED ON NEXT PAGE RU N DATE: 10/19/18 [facility] - LAB *LIVE* PAGE 2 RUN TIME: 1634 Specimen Inquiry RUN USER: INTERFACE --------- ---SPEC #: [id number] PATIENT: MEGHNA BIRD #[id number] (Continued) CLINICAL HISTORY HX CA LG INTESTINE - Z85.038; DYSPEPSIA -K30; PAIN -R10.9 CPT CODES CPT CODE(S): 64518 , 55622 , 44226 , , , , FINAL DIAGNOSIS Stomach, polypectomy: CHRONIC GASTRITIS WITH INTESTINAL METAPLASIA NEGATIVE FOR DYSPLASIA OR MALIGNANCY NEGATIVE FOR HELICOBACTER PYLORI ORGANISMS GROSS DESCRIPTION Gastric polyp. Received in formalin are two mendiola tissue fragments, 0.2 cm each, all as A. ba/nr Grossing performed at [facility] Pathology, [facility], [address], [place], [place] [address]. Fast Food Server: Carlos Sargent M.D. MICROSCOPIC DESCRIPTION Gastric polyp. Sections demonstrate gastric mucosa with chronic inflammation. No dysplasia or malignancy is seen. Alcian blue-PAS confirms the presence of focal intestinal metaplasia. No dysplasia or malignancy is identified. The Diff Quik stain demonstrates no evidence of Helicobacter pylori organism s. Signed SIGNATURE ON FILE Nain Lott 10/19/18 1634 END OF REPORT GLUCOSE BEDSIDE [id number] 16:38:00 Test Item Value Reference Range Interpretation Comments GLUCOSE BEDSIDE TESTING (test code 174 mg/dL 70-110 H = GLUBED) GLUCOSE BEDSIDE [id number] 15:01:00 Test Item Value Reference Range Interpretation Comments GLUCOSE BEDSIDE TESTING (test code 193 mg/dL 70-110 H = GLUBED) GLUCOSE BEDSIDE [id number] 12:01:00 Test Item Value Reference Range Interpretation Comments GLUCOSE BEDSIDE TESTING (test code 178 mg/dL 70-110 H = GLUBED) GLUCOSE BEDSIDE [id number] 07:56:00 Test Item Value Reference Range Interpretation Comments GLUCOSE BEDSIDE TESTING (test code 191 mg/dL 70-110 H = GLUBED) BASIC METABOLIC [id number] 03:36:00 Test Item Value Reference Range Interpretation [...] CA) 8.5 MG/DL 8.5-10.1 N CBC W/AUTO [id number] 03:27:00 Test Item Value Reference Range Interpretation [...] = NO DIFF/SCN CRITERIA MDIFF) GLUCOSE BEDSIDE [id number] 21:07:00 Test Item Value Reference Range Interpretation Comments GLUCOSE BEDSIDE TESTING (test code 186 mg/dL 70-110 H = GLUBED) GLYCOSYLATED HEMOGLOBIN [id number] 17:49:00 Test Item Value Reference Range Interpretation Comments GLYCOSYLATED HEMOGLOBIN (HA1C) 8.2 % A1C 4.2-6.3 H (test code = GLYHGB) ESTIMATED AVERAGE GLUCOSE (test 189 MG/DLest code = EAG) COMPREHENSIVE METABOLIC [id number] 17:45:00 Test Item Value Reference Range Interpretation [...] = LDL/HDL) 1.61 Ratio 1.48-3.22 Avg N [id number] 17:45:00 Test Item Value Reference Range Interpretation Comments PHOSPHOROUS (test code = PHOS) 2.7 MG/DL 2.5-4.9 N RULE OUT IA [id number] 17:45:00 Test Item Value Reference Range Interpretation [...] nume rical results may timothy yby method. [id number] 17:45:00 Test Item Value Reference Range Interpretation Comments MAGNESIUM (test code = MAG) 2.0 MG/DL 1.8-2.4 N THROMBOPLASTIN TIME [id number] 17:37:00 Test Item Value Reference Range Interpretation Comments THROMBOPLASTIN TIME PARTIAL 30.9 SECONDS 26-35 N (test code = PTT) PROTHROMBIN [id number] 17:36:00 Test Item Value Reference Range Interpretation Comments PT PATIENT (test code = PTP) 13.3 SECONDS 9.3-12.9 H INTERNATIONAL NORMAL RATIO 1.15 INR Unit 0.8-1.2 N (test code = INR) CBC W/AUTO [id number] 17:34:00 Test Item Value Reference Range Interpretation [...] DIFF/SCN CRITERIA MDIFF) - XR CHEST 1 [id number] 17:02:00 Name: MEGHNA BIRD [facility] : 1940 Age/S: 77 / F [address] [facility] [place] Unit #: [id number] Loc: [place] [address] Phys: Alfredo Cantu MD Acct: [id number] Dis Date: Status: ADM IN PHONE #: [phone] Exam Date: 10/12/2018 1640 FAX #: Reason: CAD EXAMS: CPT: [id number] XR CHEST 1 V 38918 Fluoro Time: DAP (Gy m2): Air Kerma (mGy): EXAMINATION: - XR CHEST 1 V. LOCATION: S 17. HISTORY:CAD. COMPARISON: None. TECHNIQUE: Single AP view of the chest was obtained. FINDINGS: The heart is no rmal in size. There is mild blunting of the right costophrenic angle. The left lung is clear. No acute osseous abnormality is identified. IMPRESSION: Small right pleural effusion and/or atelectasis. at 1702 Reported and signed by: Jorge Rosenberg M.D. CC: Alfredo Cantu MD; Baldemar Simeon MD; Babar Wang MD PAGE 1 Signed Report Name: MEGHNA BIRD [place] : 1940 Age/S: 77 / F [address] [address] [place] Unit #: [id number] Loc: [place] [address] Phys: Alfredo Cantu MD Acct: [id number] Dis Date: Status: ADM IN PHONE #: [phone] Exam Date: 10/12/2018 1640 FAX #: Reason: CAD EXAMS: CPT: [id number] XR CHEST 1 V 59560 Fluoro Time: DAP (Gy m2): Air Kerma (mGy): (Continued) Technologist: Harsha Carr RT(R)(CT)(MRI) Trnscb Date/Time: 10/12/2018 (1702) AnglePR7 Orig Print D/T: S: 10/12/2018 (6756) PAGE 2 Signed ReportGLUCOSE BEDSIDE [id number] 15:59:00 Test Item Value Reference Range Interpretation Comments GLUCOSE BEDSIDE TESTING (test code 114 mg/dL 70-110 H = GLUBED)
[2022-03-22] MEDS ORDERED: IPRATROPIUM BROM 0.5MG/2.5ML ONE (14:02)
[2022-03-22] MEDS ORDERED: METHYLPREDNISOLONE 125 MG INJ ONE (14:02)
[2022-03-22] MEDS ORDERED: ALBUTEROL 2.5 MG/3 ML NEB SOL ONE (14:11)
--- NOTE | 2022-03-22 14:34 | RAD REPORT ---
EXAM DESCRIPTION: Maria Esther Single View03/22/2022 2:08 pm CLINICAL HISTORY: Chest pain COMPARISON: March 04, 2020 FINDINGS: Upper lobe vessels are prominent indicative of pulmonary venous hypertension. The lungs appear clear of acute infiltrate. The heart is normal size
[2022-03-22 14:50] LABS: Absolute Lymphocytes (CBC) 1.2 K/uL (0.7-4.9); Hematocrit 25.5 % (36.0-45.0); Lymphocytes % 9.4 % (15.3-44.8); MCV 83.4 fL (80-100); MPV 8.5 fL (7.6-11.3); RBC Red Blood Cell Count 3.06 M/uL (3.86-4.86)
[2022-03-22 15:09] LABS: Albumin 2.8 g/dL (3.4-5.0); Bilirubin Total 0.6 mg/dL (0.2-1.0); Magnesium 2.7 mg/dL (1.6-2.4); Potassium 4.3 mmol/L (3.5-5.1); Protein, Total 7.3 g/dL (6.4-8.2)
[2022-03-22 15:26] LABS: SARS-COV-2 RT PCR NEGATIVE (NEGATIVE)
--- NOTE | 2022-03-22 15:33 | ER ---
Nurse's Notes [facility] Name: Gloria Longoria Age: 81 yrs Sex: Female : 1940 Arrival Date: 03/22/2022 Time: 13:17 Bed 15 Private MD: Diagnosis: Acute respiratory failure with hypoxia;CHF Exacerbation Presentation: 03/22 13:30 Chief complaint: Patient states: weakness and pain to bilateral knees since yesterday ss and weakness all over since this morning. Cough x 2 days. Denies fever. Coronavirus screen: Client presents with at least one sign or symptom that may indicate coronavirus-19. Standard/surgical mask placed on the client. Ebola Screen: Patient denies exposure to infectious person. Patient denies travel to an Ebola-affected area in the 21 days before illness onset. Initial Sepsis Screen: Does the patient meet any 2 criteria? No. Patient's initial sepsis screen is negative. Does the patient have a suspected source of infection? No. Patient's initial sepsis screen is negative. Risk Assessment: Do you want to hurt yourself or someone else? Patient reports no desire to harm self or others. Onset of symptoms was March 20, 2022. 13:30 Method Of Arrival: Wheelchair ss 13:30 Acuity: MALAIKA 2 ss Historical: - Allergies: 13:32 Sulfa (Sulfonamide Antibiotics); ss - PMHx: 13:32 ADD/ADHD; CHF; colon cancer; Diabetes - IDDM; Hypertension; Pneumonia; COPD; Myocardial ss infarction; - Immunization history:: Client reports receiving the 2nd dose of the Covid vaccine. - Social history:: Smoking status: Patient denies any tobacco usage or history of. Screenin:04 [facility] ED Fall Risk Assessment (Adult) History of falling in the last 3 months, db including since admission No falls in past 3 months (0 pts) Confusion or Disorientation No (0 pts) Intoxicated or Sedated No (0 pts) Impaired Gait Yes (1 pt) Mobility Assist Device Used Yes (1 pt) Altered Elimination No (0 pt) Score/Fall Risk Level 0 - 2 = Low Risk Oriented to surroundings, Maintained a safe environment. 15:04 Abuse screen: Denies threats or abuse. Denies injuries from another. Nutritional db screening: No deficits noted. Tuberculosis screening: No symptoms or risk factors identified. Assessment: 14:30 Reassessment: Patient and/or family updated on plan of care and expected duration. Pain db level reassessed. General: Appears distressed, Behavior is calm, cooperative. Pain: Complains of pain in right leg and left leg. Neuro: No deficits noted. Level of Consciousness is awake, alert, obeys commands, Oriented to person, place, time, situation, Appropriate for age Speech is normal. Cardiovascular: No deficits noted. Capillary refill < 3 seconds Rhythm is regular. Respiratory: Reports shortness of breath at rest Airway is patent Respiratory effort is even, labored, Respiratory pattern is regular, symmetrical, the patient has severe shortness of breath. GI: No deficits noted. No signs and/or symptoms were reported involving the gastrointestinal system. : No deficits noted. No signs and/or symptoms were reported regarding the genitourinary system. EENT: No deficits noted. No signs and/or symptoms were reported regarding the EENT system. Derm: No deficits noted. No signs and/or symptoms reported regarding the dermatologic system. 15:04 Reassessment: Patient appears in no apparent distress at this time. Patient and/or db family updated on plan of care and expected duration. Pain level reassessed. Patient is alert, oriented x 3, equal unlabored respirations, skin warm/dry/pink. Patient states feeling better. Patient states symptoms have improved. 16:14 Reassessment: Patient appears in no apparent distress at this time. Patient and/or db family updated on plan of care and expected duration. Pain level reassessed. Patient is alert, oriented x 3, equal unlabored respirations, skin warm/dry/pink. Dr. Ayon at patient bedside. 18:00 Reassessment: patient used bedside commode. db 18:30 Reassessment: Patient appears in no apparent distress at this time. Patient and/or db family updated on plan of care and expected duration. Pain level reassessed. Patient is alert, oriented x 3, equal unlabored respirations, skin warm/dry/pink. Patient states feeling better. Vital Signs: 13:30 BP 118 / 44; Pulse 79; Resp 16; Temp 99.2(O); Pulse Ox 73% on R/A; Weight 104.33 kg; ss Height 5 ft. 2 in. (157.48 cm); Pain 7/10; 13:36 BP 135 / 58; Pulse 79; Resp 28; Pulse Ox 88% on 5 lpm NC; db 14:00 BP 134 / 58; Pulse 80; Resp 20; Pulse Ox 94% on 5 lpm NC; db 14:33 BP 123 / 56; Pulse 80; Resp 18; Pulse Ox 100% on Nebulizer Mask; db 16:03 BP 125 / 55; Pulse 76; Resp 20; Pulse Ox 95% on 4 lpm NC; db 17:08 BP 108 / 61; Pulse 79; Resp 20; Pulse Ox 94% on 4 lpm NC; db 18:00 BP 123 / 68; Pulse 76; Resp 20; Pulse Ox 96% on 4 lpm NC; db 13:30 Body Mass Index 42.07 (104.33 kg, 157.48 cm) ss ED Course: 13:17 Patient arrived in ED. mr 13:32 Triage completed. ss 13:32 Arm band placed on right wrist. ss 13:34 Esperanza Hernandez MD is Attending Physician. sd2 13:46 Kinga Mayberry, RN is Primary Nurse. db 14:00 Oxygen administration via non-rebreather mask \T\ 15L/min Response to oxygen therapy: db symptoms improved. 14:09 XRAY Chest (1 view) In Process Unspecified. EDMS 14:34 Inserted saline lock: 22 gauge in left antecubital area, using aseptic technique. Blood db collected. 15:32 Esperanza Hernandez MD is Hospitalizing Provider. sd2 15:32 Kristopher Ayon MD is Hospitalizing Provider. sd2 16:15 Patient has correct armband on for positive identification. Bed in low position. Call db light in reach. Side rails up X2. Client placed on continuous cardiac and pulse oximetry monitoring. NIBP monitoring applied. Warm blanket given. 19:10 First set of blood cultures drawn by me. bc6 19:15 Blood Culture Sent. bc6 Administered Medications: 14:34 Drug: Albuterol 5 mg Route: Inhalation; db 19:14 Follow up: Response: No adverse reaction db 14:34 Drug: AtroVENT (ipratropium) Aerosol 0.5 mg Route: Inhalation; db 19:14 Follow up: Response: No adverse reaction db 14:34 Drug: SOLU-Medrol (methylPrednisoLONE) 125 mg Route: IVP; Site: left antecubital; db 16:09 Drug: Lasix (furosemide) 80 mg Route: IVP; Site: left antecubital; db 19:14 Follow up: Response: No adverse reaction db Medication: 19:14 VIS not applicable for this client. db Outcome: 15:33 Decision to Hospitalize by Provider. sd2 21:38 Patient left the ED. mw2 Signatures: Dispatcher [employer] [facility] Dory Humphries mr Nayla Sogn RN RN Giselle Jensen mw2 Esperanza Hernandez MD MD sd2 Kinga Mayberry RN RN db Allyson Lawler bc6
--- NOTE | 2022-03-22 15:34 | EDPHYS ---
Physician Documentation [facility] Name: Gloria Longoria Age: 81 yrs Sex: Female : 1940 Arrival Date: 03/22/2022 Time: 13:17 Bed 15 Private MD: ED Physician Esperanza Hernandez HPI: 03/22 13:49 This 81 yrs old Black Female presents to ER via Wheelchair with complaints of Weakness, sd2 Low O2-73. 13:49 81-year-old female presents with chief complaint of generalized weakness and hypoxia at sd2 home. They report that the patient started with bilateral knee pain and arm pain yesterday and then progressed to having generalized weakness today with shortness of breath and was found to have an O2 saturation of 73% on room air at home. The patient does have a history of COPD and CHF and has had more leg swelling recently despite being on spironolactone and furosemide. The patient is on oxygen at home as needed only. She denies any fever or recent cough. Denies any chest pain, vomiting or diarrhea or urinary symptoms.. Historical: - Allergies: 13:32 Sulfa (Sulfonamide Antibiotics); ss - PMHx: 13:32 ADD/ADHD; CHF; colon cancer; Diabetes - IDDM; Hypertension; Pneumonia; COPD; Myocardial ss infarction; - Immunization history:: Client reports receiving the 2nd dose of the Covid vaccine. - Social history:: Smoking status: Patient denies any tobacco usage or history of. ROS: 13:49 Constitutional: Negative for fever, chills, and weight loss, Eyes: Negative for injury, sd2 pain, redness, and discharge, Cardiovascular: Negative for chest pain, palpitations, and edema. 13:49 Abdomen/GI: Negative for abdominal pain, nausea, vomiting, diarrhea. : Negative for dysuria, urinary frequency, hesitancy, urgency and hematuria. MS/Extremity: Negative for injury and deformity, Skin: Negative for injury, rash, and discoloration, Neuro: Negative for headache, numbness and tingling. 13:49 Respiratory: Positive for dyspnea on exertion, shortness of breath, Negative for cough. Exam: 13:49 Constitutional: This is a well developed, well nourished patient who is awake, alert, sd2 and in no acute distress. chronically ill appearing. Head/Face: Normocephalic, atraumatic. Eyes: EOMI, normal conjunctiva bilaterally Chest/axilla: Normal chest wall appearance and motion. Nontender with no deformity. Cardiovascular: Regular rate and rhythm with a normal S1 and S2. No gallops, murmurs, or rubs. 2+ distal pulses. Respiratory: Lungs have equal breath sounds bilaterally, diminished BS bilaterally. No rales, rhonchi or wheezes noted. Tachypnea noted with no retractions or nasal flaring. Abdomen/GI: Soft, non-tender, with normal bowel sounds. No guarding or rebound. No evidence of tenderness throughout. Skin: Warm, dry with normal turgor. Normal color with no rashes, no lesions, and no evidence of cellulitis. MS/ Extremity: Pulses equal, no cyanosis. Neurovascular intact. Full, normal range of motion. Able to take a few steps to transition from wheelchair to stretcher and bear weight on both legs. Psych: Awake, alert, with orientation to person, place and time. Behavior, mood, and affect are within normal limits. 15:31 ECG was reviewed by the Attending Physician. NSR, rate 79, no STEMI criteria, 1st sd2 degree AV block, TWI in aVL Vital Signs: 13:30 BP 118 / 44; Pulse 79; Resp 16; Temp 99.2(O); Pulse Ox 73% on R/A; Weight 104.33 kg; ss Height 5 ft. 2 in. (157.48 cm); Pain 7/10; 13:36 BP 135 / 58; Pulse 79; Resp 28; Pulse Ox 88% on 5 lpm NC; db 14:00 BP 134 / 58; Pulse 80; Resp 20; Pulse Ox 94% on 5 lpm NC; db 14:33 BP 123 / 56; Pulse 80; Resp 18; Pulse Ox 100% on Nebulizer Mask; db 16:03 BP 125 / 55; Pulse 76; Resp 20; Pulse Ox 95% on 4 lpm NC; db 17:08 BP 108 / 61; Pulse 79; Resp 20; Pulse Ox 94% on 4 lpm NC; db 18:00 BP 123 / 68; Pulse 76; Resp 20; Pulse Ox 96% on 4 lpm NC; db 13:30 Body Mass Index 42.07 (104.33 kg, 157.48 cm) ss MDM: 13:34 Patient medically screened. sd2 13:49 Data reviewed: vital signs, nurses notes. sd2 13:52 ED course: Differential diagnosis includes but is not limited to: Dehydration, sd2 electrolyte abnormality, UTI, PNA, anemia among others. 15:31 Data reviewed: lab test result(s), EKG, radiologic studies. Counseling: I had a sd2 detailed discussion with the patient and/or guardian regarding: the historical points, exam findings, and any diagnostic results supporting the discharge/admit diagnosis, lab results, radiology results, the need for further work-up and treatment in the hospital. ED course: Labs and imaging reviewed. Consistent with CHF exacerbation. Urine and procalcitonin pending. No evidence of infection at this time. Pt saturating well on NC. IV Lasix given. Pt to be admitted for further management at this time. . 03/22 13:43 Order name: CBC with Diff; Complete Time: 15:14 03/22 13:43 Order name: CMP; Complete Time: 15:14 or03/22 13:43 Order name: Magnesium; Complete Time: 15:14 03/22 13:43 Order name: Troponin High Sensitivity; Complete Time: 15:14 03/22 13:43 Order name: BNP; Complete Time: 15:14 sd03/22 13:43 Order name: COVID-19/FLU A+B; Complete Time: 15:39 sd03/22 13:43 Order name: Lactate w/ 2H reflex if indic.; Complete Time: 15:14 03/22 13:43 Order name: Procalcitonin 2 03/22 13:43 Order name: Urine Microscopic Only sd2 03/22 16:55 Order name: Urinalysis EDID 03/22 16:55 Order name: Basic Metabolic Panel EDID 03/22 16:55 Order name: Basic Metabolic Panel EDID 03/22 16:55 Order name: CBC with Automated Diff EDID 03/22 16:55 Order name: CBC with Automated Diff [facility] 03/22 13:43 Order name: EKG - Nurse/Tech sd2 03/22 13:43 Order name: XRAY Chest (1 view); Complete Time: 14:35 sd2 03/22 13:43 Order name: Urine Dipstick-Ancillary (obtain specimen) sd2 03/22 16:50 Order name: CONS Physician Consult EDID 03/22 16:55 Order name: 60g Consistent Carbohydrate (ADA 1800/2000) EDMS 03/22 16:55 Order name: NT PRO-BNP EDMS 03/22 16:55 Order name: NT PRO-BNP EDMS 03/22 16:55 Order name: Blood Culture EDMS 03/22 18:57 Order name: Urine Dipstick-Ancillary EDMS Administered Medications: 14:34 Drug: Albuterol 5 mg Route: Inhalation; db 19:14 Follow up: Response: No adverse reaction db 14:34 Drug: AtroVENT (ipratropium) Aerosol 0.5 mg Route: Inhalation; db 19:14 Follow up: Response: No adverse reaction db 14:34 Drug: SOLU-Medrol (methylPrednisoLONE) 125 mg Route: IVP; Site: left antecubital; db 16:09 Drug: Lasix (furosemide) 80 mg Route: IVP; Site: left antecubital; db 19:14 Follow up: Response: No adverse reaction db Disposition Summary: 03/22/22 15:33 Hospitalization Ordered Hospitalization Status: Inpatient Admission sd2 Provider: Kristopher Ayon sd2 Location: Telemetry/MedSurg (Inpatient) sd2 Condition: Stable sd2 Problem: an acute exacerbation sd2 Symptoms: have improved sd2 Bed/Room [facility]: [facility] Room Assignment: 401(03/22/22 19:02) dw Diagnosis - Acute respiratory failure with hypoxia sd2 - CHF Exacerbation sd2 Forms: - Medication Reconciliation Form sd2 - SBAR form sd2 Signatures: Dispatcher [employer] [facility] Trish Guidry RN RN dw Nayla Song RN RN Esperanza Hernandez MD MD sd2 Kinga Mayberry RN RN db Corrections: (The following items were deleted from the chart) : 15:33 sd2 dw
[2022-03-22] MEDS ORDERED: FUROSEMIDE 40 MG/4 ML VIAL ONE (16:03)
[2022-03-22] MEDS ORDERED: HYDROCODONE/APAP 5/325 MG TAB PO PRN (16:47)
[2022-03-22] MEDS ORDERED: ACETAMINOPHEN 325 MG TABLET PO PRN (16:47)
[2022-03-22] MEDS ORDERED: ONDANSETRON 4 MG/2 ML VIAL IV PRN (16:53)
--- NOTE | 2022-03-22 16:55 | P.HP ---
Certification for Inpatient Patient admitted to: Inpatient With expected LOS: >2 Midnights Patient will require the following post-hospital care: None Practitioner: I am a practitioner with admitting privileges, knowledge of patient current condition, hospital course, and medical plan of care. Services: Services provided to patient in accordance with Admission requirements found in Title 42 Section 412.3 of the Code of Federal Regulations <FelicianojusticeCarl grantjonah Grant - Last Filed: 03/23/22 05:49> Patient History Date of Service: 03/22/22 Reason for admission: Generalized weakness and SOB History of Present Illness: Patient is an 81-year-old female with a past medical history significant for CHF, colon cancer, DM2, hypertension, blindness who presents with complaint of generalized weakness and shortness of breath onset yesterday. Family reported that patient is on home O2 therapy at 2L\min prn and her 02 sat dropped to 73% on O2 therapy. Patient reported associated signs and symptoms of generalized swelling, headache and generalized malaise. Patient denies any other signs and symptoms. Symptoms are aggravated or relieved by nothing. Family decided to call EMS who brought patient to the ER for medical evaluation. - Past Medical/Surgical History Diabetic: Yes -: Glaucoma -: CHF, diastolic dysfunction -: HTN -: GERD -: DM Neuropathy -: History of Colon CA -: Diabetes mellitus type 2 -: Fatty liver with Morbid Obesity -: CAD -: COPD -: Cholecystectomy -: Colon resection -: Appendectomy -: Hysterectomy -: Right Rotator Cuff Repair -: Colectomy Psychosocial/ Personal History: She lives at home. Her daughter helps her at home. - Family History Mother -: Cancer Notes: colon Brother -: Hypertension Sister -: Heart disease, Hypertension, Lung disease, Cancer - Social History Smoking Status: Never smoker Alcohol use: No CD- Drugs: No Caffeine use: Yes Place of Residence: Home <Shaq Martinez - Last Filed: 03/23/22 05:49> Date of Service: 03/23/22 <Kristopher Ayon - Last Filed: 03/23/22 19:24> Allergies Sulfa (Sulfonamide Antibiotics) Allergy (Intermediate, Verified 09/22/21 21:30) Rash Home Medications: RX: Aspirin [Aspirin EC 81 MG] 81 mg PO DAILY 02/07/22 RX: Carvedilol [Coreg] 25 mg PO BID 02/07/22 RX: Furosemide 40 mg PO DAILY 02/07/22 RX: Insulin Lispro [Humalog] See Rx Instructions .ROUTE .COMPLEX 02/07/22 RX: Magnesium Oxide [Mag 0X*] 400 mg PO DAILY 02/07/22 RX: Rosuvastatin Calcium 40 mg PO BEDTIME 02/07/22 RX: Trazodone [Desyrel*] 50 mg PO BEDTIME 02/07/22 RX: Clopidogrel Bisulfate [Plavix] 75 mg PO DAILY 03/04/22 RX: Insulin Detemir [Levemir] 60 units SQ BEDTIME 03/04/22 RX: Pregabalin 75 mg PO BID 03/04/22 Ezetimibe [Zetia] 10 mg PO DAILY #30 tab 03/05/22 RX: Folic Acid 1 mg PO DAILY #30 tab 03/05/22 Amlodipine [Norvasc*] 5 mg PO BID 03/22/22 Cholecalciferol (Vitamin D3) [Vitamin D3] 1 tab PO DAILY 03/22/22 Cyanocobalamin/Cobamamide [Vitamin B-12 5,000 Mcg Tab Sl] 1 tab PO DAILY 03/22/22 Dulaglutide [Trulicity] 0.75 mg SQ MO 03/22/22 Ferrous Sulfate [Ferrous Sulfate*] 325 mg PO DAILY 03/22/22 RX: Metformin ER [Glucophage ER*] 500 mg PO BIDWM 03/22/22 RX: Sertraline [Zoloft*] 100 mg PO DAILY 03/22/22 RX: Spironolactone [Aldactone*] 25 mg PO BID 03/22/22 Review of Systems General: Weakness, Malaise Eyes: Other (Blind) ENT: Unremarkable Respiratory: Shortness of Breath Cardiovascular: Edema Gastrointestinal: Unremarkable Genitourinary: Unremarkable Musculoskeletal: Pedal edema, Other (Genenalized swelling ) Integumentary: Unremarkable Neurological: Weakness, Other (SERRATO) Lymphatics: Unremarkable <Shaq Martinez - Last Filed: 03/23/22 05:49> Physical Examination - Physical Exam General: Alert, Oriented x3, Cooperative, Mild distress HEENT: Atraumatic, PERRLA, Mucous membr. moist/pink, EOMI, Sclerae nonicteric Neck: Supple, 2+ carotid pulse no bruit, JVD not distended, No LAD, Without JVD or thyroid abnormality Respiratory: Clear to auscultation bilaterally, Diminished Cardiovascular: Regular rate/rhythm, Normal S1 S2, Edema Capillary refill: <2 Seconds Gastrointestinal: Normal bowel sounds, Soft and benign, No tenderness Musculoskeletal: No clubbing, No contractures, No tenderness, Swelling Integumentary: No rashes, No breakdown, No significant lesion Neurological: Normal speech, Normal tone, Normal affect Lymphatics: No axilla or inguinal lymphadenopathy - Studies Laboratory Data (last 24 hrs) 03/22/22 14:34: Sodium 138, Potassium 4.3, BUN 34 H, Creatinine 1.83 H, Glucose 164 H, Magnesium 2.7 H, Total Bilirubin 0.6, AST 28, ALT 24, Alkaline Phosphatase 105 03/22/22 14:34: WBC 13.20 H, Hgb 8.2 L, Hct 25.5 L, Plt Count 238 <Shaq Martinez - Last Filed: 03/23/22 05:49> Assessment and Plan - Plan --Acute on chronic diastolic CHF exacerbation. Continue diuresis with Lasix IV. Daily weight and strict I\O. --Acute on chronic COPD exacerbation. Patient placed on neb treatment with Atrovent\albuterol and O2 therapy. Continue supportive care. --Acute respiratory failure with Hypoxia. Secondary to COPD and CHF exacerbation. Continue current treatment regimen. --LONG on CKD 3B. Surgical Scrub Tech consulted. Recommendations appreciated. --History of colon cancer. S/P colonoscopy\EGD 3 months agoresults unknown. Patient follows up with O/P GI MD. Continue supportive care. --DM2 with Neuropathy. BS monitoring with sliding scale insulin and insulin glargine. Continue Lyrica for her neuropathy. --Hypertension. Stable. Continue home medications. 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 Continue home medications. -- Headache. Tylenol as needed. --Hx of CAD. Continue aspirin, Plavix and statin -- GERD. Continue Protonix. --Hyperlipidemia. Continue statin. --UTI POA. Placed on antibiotics. Urine cultures pending. -- Depression. Continue home medication. --Class III obesity. Likely secondary to sedentary lifestyle and excess calories intake. Patient counseled on weight reduction, diet and excise therapy. --DVT prophylaxis with heparin subQ. Discharge Plan: Home Plan to discharge in: Greater than 2 days - Advance Directives Does patient have a Living Will: No Does patient have a Durable POA for Healthcare: Yes - Code Status/Comfort Care Code Status Assessed: Yes Physician Review: Patient Assessed, Agree with Above Assessment and Plan Critical Care: No <Shaq Martinez - Last Filed: 03/23/22 05:49> Physician Review: Patient Assessed, Agree with Above Assessment and Plan <Kristopher Ayon - Last Filed: 03/23/22 19:24>
[2022-03-22] MEDS: FUROSEMIDE 40 MG/4 ML VIAL IV SCH (18:47)
[2022-03-22 18:57] LABS: Urine Blood Negative (Negative); Urine Glucose Negative (Negative); Urine Protein 2+ (Negative); Urine Specific Gravity 1.015 (1.005-1.030); Urine pH 5.5 (5.0-7.0)
[2022-03-22 19:05] LABS: Urine Bacteria <20 /HPF (<20); Urine Mucus Slight /HPF (None Seen); Urine RBC <5 /HPF (None Seen)
[2022-03-22] MEDS: ALBUTEROL 2.5 MG/3 ML NEB SOL NEB SCH (20:00)
[2022-03-22] MEDS: IPRATROPIUM BROM 0.5MG/2.5ML NEB SCH (20:00)
[2022-03-22] MEDS: ASPIRIN 81 MG CHEWABLE TABLET PO SCH (22:57)
[2022-03-22] MEDS: PREGABALIN 75 MG CAP PO SCH (22:57)
[2022-03-22] MEDS: carvediloL 25 MG TAB PO SCH (22:58)
[2022-03-22] MEDS: ROSUVASTATIN 10 MG TAB PO SCH (22:58)
[2022-03-22] MEDS: TRAZODONE 50 MG TABLET PO SCH (22:58)
[2022-03-22] MEDS: INSULIN -REGULAR HUMAN 50 UNIT/0.5 ML ML SQ SCH (22:59)
[2022-03-22] MEDS: HEPARIN 5000 UNIT/ML 1 ML VIAL SQ SCH (22:59)
[2022-03-22] MEDS: INSULIN GLARGINE 100 UNIT/ML SQ SCH (23:00)
[2022-03-23 01:09] VITALS: BMI 42.0
[2022-03-23] MEDS: IPRATROPIUM BROM 0.5MG/2.5ML NEB SCH ×4 (01:55→21:20)
[2022-03-23] MEDS: ALBUTEROL 2.5 MG/3 ML NEB SOL NEB SCH ×4 (01:55→21:20)
[2022-03-23 04:47] LABS: Absolute Lymphocytes (CBC) 0.5 K/uL (0.7-4.9); Hematocrit 24.1 % (36.0-45.0); Lymphocytes % 4.8 % (15.3-44.8); MCV 84.4 fL (80-100); MPV 8.9 fL (7.6-11.3); RBC Red Blood Cell Count 2.85 M/uL (3.86-4.86)
[2022-03-23 05:35] LABS: Phosphorus 4.6 mg/dL (2.5-4.9); Potassium 4.5 mmol/L (3.5-5.1); Uric Acid 9.1 mg/dL (2.6-6.0)
[2022-03-23] MEDS: PANTOPRAZOLE 40MG TABLET PO SCH (06:26)
[2022-03-23] MEDS: INSULIN -REGULAR HUMAN 50 UNIT/0.5 ML ML SQ SCH ×4 (06:26→21:32)
[2022-03-23 06:27] LABS: Basophilic Stippling 1+; Blood Morphology Comment NOTED (NOT SEEN); Platelet Estimate ADEQ; Polychromasia SLIGHT
[2022-03-23] MEDS: INSULIN GLARGINE 100 UNIT/ML SQ SCH ×2 (09:00→21:32)
[2022-03-23] MEDS ORDERED: DRISDOL (VITAMIN D=ERGOCALCIFEROL) 50000 UNIT CAP PO SCH (09:00)
[2022-03-23] MEDS: CEFTRIAXONE 1,000 MG in NA CHLORIDE 0.9% 50 ML IVPB SCH (09:50)
[2022-03-23] MEDS: carvediloL 25 MG TAB PO SCH ×2 (09:52→21:23)
[2022-03-23] MEDS: CLOPIDOGREL 75 MG TABLET PO SCH (09:53)
[2022-03-23] MEDS: EZETIMIBE 10 MG TAB PO SCH (09:53)
[2022-03-23] MEDS: FOLIC ACID 1 MG TABLET PO SCH (09:53)
[2022-03-23] MEDS: HEPARIN 5000 UNIT/ML 1 ML VIAL SQ SCH ×2 (09:54→22:06)
[2022-03-23] MEDS: PREGABALIN 75 MG CAP PO SCH ×2 (09:54→21:23)
[2022-03-23] MEDS: ASPIRIN 81 MG CHEWABLE TABLET PO SCH (09:54)
[2022-03-23] MEDS: FUROSEMIDE 40 MG/4 ML VIAL IV SCH (09:54)
[2022-03-23] MEDS: MAGNESIUM OXIDE 400 MG TAB PO SCH (09:54)
[2022-03-23] MEDS ORDERED: NA CHLORIDE 0.9% 1,000 ML IV SCH (14:00)
--- NOTE | 2022-03-23 14:19 | CON ---
Date of Consultation: 03/23/2022 Reason For Consultation: Elevated BUN and creatinine, fluid management. History Of Present Illness: This is a pleasant 81-year-old female with significant past medical hist ory of: 1.CAD complicated with congestive heart failure, glaucoma. 2. . 3.Diabetes complicated with neuropathy and nephropathy. 4.COPD. Patient was in her regular state of health. Patient came to the hospital complaining from weakness, fatigue, and shortness of breath with hypoxemia. Her saturation was down to 73. For that reason, susan epi was brought to the hospital. Upon arrival to the hospital, patient was found to have elevation in BUN and creatinine. For that reason, we have been consulted. Creatinine up to 1.8. Reviewing t he record for the patient back in February, creatinine around 1.5 to 1.3 with GFR around 50. Patient at home being on Lasix and metformin. Patient denied taking any nonsteroidal. Upon arrival to the hospital, patient was started on diuresis. Kidney function stayed the same. Past Medical History: Includes: 1.CAD complicated with congestive heart failure. Echocardiogram back in February, preserved ejectio n fraction with moderate diastolic dysfunction with pulmonary hypertension, severe. 2.Diabetes complicated with neuropathy, retinopathy. 3.Hyperlipidemia. 4.Hypertension. Past Surgical History: Includes cholecystectomy, colon resection, appendectomy, hysterectomy, rotato r cuff repair. Family History: Positive for cancer and CAD. Social History: Denies smoking. Denies drinking. Denies drugs abuse. Review of Systems: Head and Neck: No red eye. No ear pain. GI: No nausea, no vomiting. : No polyuria, no dysuria, no hematuria. DIRECTOR OF CASEWORK SERVICES: No vaginal discharge. Respiratory: Has shortness of breath. Cardiovascular: No chest pain. Endocrine: No polydipsia. Skin: No rash. Neuro: Has neuropathy. No focality. Current Medications: The patient is on medications include: 1.Aspirin. 2.Periactin. 3.Albuterol. 4.Carvedilol. 5.Atorvastatin. 6.Trazodone. 7.Lyrica. 8.Lasix. 9.Insulin. 10.Hydrocodone. Assessment And Plan: 1.Acute kidney injury on chronic kidney disease, possible secondary to overdiuresis. Looks to me, t he patient is on the normal volume/dry side. Has shortness of breath secondary to her pulmonary hype rtension. a.I am going to go ahead and discontinue Lasix. I will start the patient on gentle hydration and we will follow up the patient closely. 2.Hypertension with the presence of acute kidney injury. Discontinue Lasix. 3.Congestive heart failure, diastolic dysfunction. Currently, normal volume to the dry side. Hold t he Lasix. 4.Continue calcium channel josy and we will follow up. 5.Deconditioning. Continue physical therapy, occupational therapy. 6.Anemia with the presence of acute kidney injury to rule out any light chain disease. We will send for anemia workup. We will send for a protein electrophoresis. TAMICA Voice ID: [id number] Report ID: [id number]
--- NOTE | 2022-03-23 14:49 | RAD REPORT ---
EXAM DESCRIPTION: US - Renal Ultrasound-Complete - 03/23/2022 2:08 pm CLINICAL HISTORY: LONG COMPARISON: Renal Ultrasound-Complete dated 02/08/2022 FINDINGS: Both kidneys are normal in size, shape and echotexture. The right kidney measures 11.5 cm. No hydronephrosis, focal mass or perinephric fluid. The left kidney measures 11.6 cm. No hydronephrosis, focal mass or perinephric fluid. The urinary bladder is incompletely distended without gross abnormality seen. IMPRESSION: Unremarkable renal sonogram. No hydronephrosis.
--- NOTE | 2022-03-23 16:30 | P.CNS ---
Date of Consult: 03/23/22 Reason for Consult: LONG/ CKD Requesting Physician: Kristopher Ayon Chief Complaint: Generalized weakness and SOB History of Present Illness: Patient is an 81-year-old female with a past medical history significant for CHF, colon cancer, DM2, hypertension, blindness who presents with complaint of generalized weakness and shortness of breath onset yesterday. Family reported that patient is on home O2 therapy at 2L\min prn and her 02 sat dropped to 73% on O2 therapy. Patient reported associated signs and symptoms of generalized swelling, headache and generalized malaise. Patient denies any other signs and symptoms. Symptoms are aggravated or relieved by nothing. Family decided to call EMS who brought patient to the ER for medical evaluation. 13:49 This 81 yrs old Black Female presents to ER via Wheelchair with complaints of Weakness, sd2 Low O2-73. 13:49 81-year-old female presents with chief complaint of generalized weakness and hypoxia at sd2 home. They report that the patient started with bilateral knee pain and arm pain yesterday and then progressed to having generalized weakness today with shortness of breath and was found to have an O2 saturation of 73% on room air at home. The patient does have a history of COPD and CHF and has had more leg swelling recently despite being on spironolactone and furosemide. The patient is on oxygen at home as needed only. She denies any fever or recent cough. Denies any chest pain, vomiting or diarrhea or urinary symptoms. Allergies Sulfa (Sulfonamide Antibiotics) Allergy (Intermediate, Verified 09/22/21 21:30) Rash Home medications list reviewed: Yes Home Medications: Aspirin [Aspirin EC 81 MG] 81 mg PO DAILY 02/07/22 Carvedilol [Coreg] 25 mg PO BID 02/07/22 Furosemide 40 mg PO DAILY 02/07/22 Insulin Lispro [Humalog] See Rx Instructions .ROUTE .COMPLEX 02/07/22 Magnesium Oxide [Mag 0X*] 400 mg PO DAILY 02/07/22 Rosuvastatin Calcium 40 mg PO BEDTIME 02/07/22 Trazodone [Desyrel*] 50 mg PO BEDTIME 02/07/22 Clopidogrel Bisulfate [Plavix] 75 mg PO DAILY 03/04/22 Insulin Detemir [Levemir] 60 units SQ BEDTIME 03/04/22 Pregabalin 75 mg PO BID 03/04/22 Ezetimibe [Zetia] 10 mg PO DAILY #30 tab 03/05/22 Folic Acid 1 mg PO DAILY #30 tab 03/05/22 Amlodipine [Norvasc*] 5 mg PO BID 03/22/22 Cholecalciferol (Vitamin D3) [Vitamin D3] 1 tab PO DAILY 03/22/22 Cyanocobalamin/Cobamamide [Vitamin B-12 5,000 Mcg Tab Sl] 1 tab PO DAILY 03/22/22 Dulaglutide [Trulicity] 0.75 mg SQ MO 03/22/22 Ferrous Sulfate [Ferrous Sulfate*] 325 mg PO DAILY 03/22/22 Metformin ER [Glucophage ER*] 500 mg PO BIDWM 03/22/22 Sertraline [Zoloft*] 100 mg PO DAILY 03/22/22 Spironolactone [Aldactone*] 25 mg PO BID 03/22/22 - Past Medical/Surgical History Diabetic: Yes -: Glaucoma -: CHF, diastolic dysfunction -: HTN -: GERD -: DM II with PolyNeuropathy -: CKD III (Dr. Alvarez) -: CAD -: Fatty liver with Morbid Obesity -: COPD -: History of Colon CA -: Cholecystectomy -: Colon resection -: Appendectomy -: Hysterectomy -: Right Rotator Cuff Repair -: Colectomy Psychosocial/ Personal History: She lives at home. Her daughter helps her at home. - Family History Mother Medical History: Cancer Notes: colon Brother Medical History: Hypertension Sister Medical History: Heart disease, Hypertension, Lung disease, Cancer - Social History Smoking Status: Never smoker Alcohol use: No CD- Drugs: No Caffeine use: Yes Place of Residence: Home Review of Systems 10-point ROS is otherwise unremarkable General: Weakness, Malaise Respiratory: Cough Physical Examination Temp Pulse Resp BP Pulse Ox 97.5 F 88 16 145/63 H 95 03/23/22 11:50 03/23/22 11:50 03/23/22 11:50 03/23/22 11:50 03/23/22 11:50 General: Oriented x3, Cooperative HEENT: Atraumatic Neck: Supple Respiratory: Diminished (Coarse and diminished right base) Cardiovascular: No edema, Regular rate/rhythm Gastrointestinal: Soft and benign, Non-distended Musculoskeletal: No clubbing, No contractures Integumentary: No rashes, No cyanosis Neurological: Normal speech Blood work reviewed in the chart. Imagings Data: EXAM DESCRIPTION: US - Renal Ultrasound-Complete - 03/23/2022 2:08 pm CLINICAL HISTORY: LONG COMPARISON: Renal Ultrasound-Complete dated 02/08/2022 FINDINGS: Both kidneys are normal in size, shape and echotexture. The right kidney measures 11.5 cm. No hydronephrosis, focal mass or perinephric fluid. The left kidney measures 11.6 cm. No hydronephrosis, focal mass or perinephric fluid. The urinary bladder is incompletely distended without gross abnormality seen. IMPRESSION: Unremarkable renal sonogram. No hydronephrosis. [facility] 2:08 pm CLINICAL HISTORY: Chest pain COMPARISON: March 04, 2020 FINDINGS: Upper lobe vessels are prominent indicative of pulmonary venous hypertension. The lungs appear clear of acute infiltrate. The heart is normal size LEFT VENTRICULAR WALL MOTION: NORMAL DOPPLER/COLOR FLOW: SEE BELOW COMMENTS: 1. NORMAL LEFT VENTRICULAR EJECTION FRACTION 60-65% WITH NORMAL WALL MOTION 2. MODERATE DIASTOLIC DYSFUNCTION 3. MILD MITRAL REGURGITATION/ MILD TRICUSPID REGURGITATION 4. SEVERE PULMONARY HYPERTENSION WITH RIGHT VENTRICULAR SYSTOLIC PRESSURE GREATER THAN 60 mmHg 5. LEFT ATRIAL ENLARGEMENT Conclusions/Impression: Stage I LONG likely due to hypovolemia in the setting of Pulmonary HTN CKD III with proteinuria -No NSAIDs -Continue IVF HTN with CKD/ CHF -Continue Coreg Diastolic CHF, chronic Pulmonary HTN, Severe -Continue Coreg DM II with CKD & Polyneuropathy & Hyperglycemia -Continue Lantus -RISS Hypoalbuminemia -Start Nepro Anemia in chronic illness Hx iron deficiency -Check iron status -Consider Retacrit CKD MBD Hx Vitamin D3 Deficiency -Start Ergo Case reviewed with Dr. Ayon Thank you kindly for the consultation
[2022-03-23] MEDS ORDERED: BENZONATATE 100 MG CAP PO PRN (17:20)
--- NOTE | 2022-03-23 19:25 | P.PN ---
Subjective Date of Service: 03/23/22 Chief Complaint: Generalized weakness and SOB No acute events since admission. She reports that her shortness of breath is gradually improving. She also complains of a dry cough this morning. She denies any chest pain or palpitations. Review of Systems 10-point ROS is otherwise unremarkable Respiratory: Cough, Dry, Shortness of Breath Physical Examination - Vital Signs Temperature: 97.3 F Blood Pressure: 129/50 Pulse: 75 Respirations: 16 Pulse Ox (%): 99 Assessment And Plan - Plan - Physical Exam General: Alert, In no apparent distress, Oriented x3 HEENT: Atraumatic, Mucous membr. moist/pink, EOMI, Sclerae nonicteric Neck: Supple, JVD not distended Respiratory: Expiratory wheezes (faint end-expiratory) Cardiovascular: No edema, Regular rate/rhythm, Normal S1 S2, No gallops, No rubs, No murmurs Gastrointestinal: Normal bowel sounds, Soft and benign, No tenderness, No rebound, No guarding Musculoskeletal: No clubbing Integumentary: No rashes Neurological: Normal speech, Cranial nerves 3-12 intact, Normal affect - Plan # Acute Hypoxic Respiratory Failure - likely secondary to Chronic Obstructive Pulmonary Disease Exacerbation # Pulmonary Venous Hypertension Her SPO2 was 73% on room air upon presentation. Currently, her SPO2 is 95% on 2 L of nasal cannula. - Evaluation thus far: - Procalcitonin = 0.10 - Chest x-ray = "Upper lobe vessels are prominent indicative of pulmonary venous hypertension. The lungs appear clear of acute infiltrate. The heart is normal size" - V/Q scan = pending - Management plan: - Consulted Pulmonary Medicine - recommendations appreciated - Bronchodilators + steroids per Pulm - Consulted Respiratory Therapy - Supplemental oxygen to maintain SpO2 > 92% - Encouraged incentive spirometry # KDIGO Stage I Acute Kidney Injury on Chronic Kidney Disease Stage III - Nephrology consulted and spoke with Dr. Alvarez - recommendations appreciated - Creatinine = 1.83 -> 1.89 (baseline creatinine ~1.1-1.2) - Urinalysis = 2+ leukocyte esterase, >50 WBCs, 2+ protein - Renal ultrasound = "unremarkable renal sonogram. 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 - Continue insulin glargine 60 units + correction scale insulin - Continue home pregabalin # Chronic Compensated Diastolic Congestive Heart Failure with Preserved Ejection Fraction - Does not appear to be in acute CHF exacerbation - Continue home carvedilol - Hold furosemide given LONG - Daily weights - Strict I/O - Cardiac diet, 2 L fluid restriction, 2 g Na restriction # Coronary Artery Disease # Hypertension # Hyperlipidemia - Continue home amodipine, carvedilol, aspirin, rosuvastatin, clopidogrel, ezetimibe # Gastroesophageal Reflux Disease - Continue home pantoprazole # Morbid Obesity - BMI 42.1 kg/m2 - Lifestyle modifications # History of Colon Cancer - Follow-up with PCP/Oncologist as previously scheduled Kristopher Ayon M.D.
[2022-03-23] MEDS: NEPRO SHAKE 237 ML CAN PO SCH (21:00)
[2022-03-23] MEDS: ROSUVASTATIN 10 MG TAB PO SCH (21:22)
[2022-03-23] MEDS: TRAZODONE 50 MG TABLET PO SCH (21:23)
[2022-03-23] MEDS: DOCUSATE NA 100 MG CAP PO SCH (21:23)
[2022-03-23] MEDS: predniSONE 20 MG TAB PO SCH (21:32)
[2022-03-23] MEDS ORDERED: FAMOTIDINE 20 MG/2 ML VIAL IV ONE (22:31)
[2022-03-24] MEDS: IPRATROPIUM BROM 0.5MG/2.5ML NEB SCH ×3 (01:55→14:38)
[2022-03-24] MEDS: ALBUTEROL 2.5 MG/3 ML NEB SOL NEB SCH ×3 (01:55→14:38)
[2022-03-24 04:05] LABS: Absolute Lymphocytes (CBC) 0.7 K/uL (0.7-4.9); Hematocrit 24.1 % (36.0-45.0); Lymphocytes % 5.4 % (15.3-44.8); MCV 83.3 fL (80-100); MPV 8.7 fL (7.6-11.3)
[2022-03-24 04:16] LABS: Albumin 2.7 g/dL (3.4-5.0); Bilirubin Total 0.4 mg/dL (0.2-1.0); Magnesium 2.4 mg/dL (1.6-2.4); Phosphorus 3.3 mg/dL (2.5-4.9); Potassium 4.4 mmol/L (3.5-5.1); Protein, Total 6.9 g/dL (6.4-8.2); Uric Acid 8.9 mg/dL (2.6-6.0)
[2022-03-24] MEDS: PANTOPRAZOLE 40MG TABLET PO SCH (06:25)
[2022-03-24] MEDS: INSULIN -REGULAR HUMAN 50 UNIT/0.5 ML ML SQ SCH ×2 (08:23→12:13)
[2022-03-24] MEDS: CEFTRIAXONE 1,000 MG in NA CHLORIDE 0.9% 50 ML IVPB SCH (08:24)
[2022-03-24] MEDS: HEPARIN 5000 UNIT/ML 1 ML VIAL SQ SCH (08:24)
[2022-03-24] MEDS: FOLIC ACID 1 MG TABLET PO SCH (08:26)
[2022-03-24] MEDS: DOCUSATE NA 100 MG CAP PO SCH (08:26)
[2022-03-24] MEDS: PREGABALIN 75 MG CAP PO SCH (08:26)
[2022-03-24] MEDS: carvediloL 25 MG TAB PO SCH (08:26)
[2022-03-24] MEDS: CLOPIDOGREL 75 MG TABLET PO SCH (08:26)
[2022-03-24] MEDS: ASPIRIN 81 MG CHEWABLE TABLET PO SCH (08:26)
[2022-03-24] MEDS: MAGNESIUM OXIDE 400 MG TAB PO SCH (08:26)
[2022-03-24] MEDS: predniSONE 20 MG TAB PO SCH (08:27)
[2022-03-24] MEDS: EZETIMIBE 10 MG TAB PO SCH (08:27)
[2022-03-24] MEDS: INSULIN GLARGINE 100 UNIT/ML SQ SCH (08:28)
[2022-03-24] MEDS ORDERED: DRISDOL (VITAMIN D=ERGOCALCIFEROL) 50000 UNIT CAP PO SCH (09:00)
--- NOTE | 2022-03-24 09:33 | RAD REPORT ---
EXAM DESCRIPTION: NM - Vent Perfusion VQ Scan - 03/24/2022 9:25 am CLINICAL HISTORY: rule out PE, shortness of breath COMPARISON: Portable chest 03/24/2022, V/Q scan 02/08/2022 TECHNIQUE: The ventilation portion examination could not be performed due to unavailability of the X enon gas. The patient was administered 6.9 mCi Tc-99m MAA labeled RBCs followed by standard 8 view pr otocol. FINDINGS: There is good distribution of the perfusion agent throughout the lung mak. No new perfu saige defects are identifiable. Exam is not significantly different from the February 08, 2022 examina tion. Pulmonary embolism is not suspected. IMPRESSION: Perfusion only examination showing no findings suspicious for pulmonary embolism. No significant change from January 2022 imaging.
--- NOTE | 2022-03-24 09:34 | RAD REPORT ---
EXAM DESCRIPTION: RAD - Chest Single View - 03/24/2022 9:27 am CLINICAL HISTORY: Post VQ scan, shortness of breath COMPARISON: Portable 03/22/2022 TECHNIQUE: AP portable chest image was obtained 03/24/2022 9:27 am . FINDINGS: No focal mass or consolidation. Interstitial pattern overall is prominent. Heart size is u pper normal. Central vasculature is prominent. No measurable pleural effusion and no pneumothorax. No acute bony abnormality seen. No acute aortic findings suspected. IMPRESSION: Heart, vasculature and lung markings are all more prominent. Pattern is not substantially different from prior imaging but could indicate an underlying failure or volume overload.
[2022-03-24 10:07] LABS: Specific Gravity 1.012 (1.005-1.030); Urine Bacteria None Seen /HPF (<20); Urine Bilirubin NEGATIVE (Negative); Urine Blood Negative (Negative); Urine Clarity Clear (Clear); Urine Color Light-Yellow (Yellow); Urine Glucose NEGATIVE (Negative); Urine Protein 1+ (Negative); Urine RBC <5 /HPF (None Seen); Urine Urobilinogen 1+ (Normal); Urine WBC Clump Rare /HPF (None Seen); Urine pH 5.5 (5.0-7.0)
[2022-03-24 10:17] LABS: UR PROTEIN 62.7 mg/dL (<11.9); Urine Protein/Creatinine Ratio 1.23 ratio (<0.15)
[2022-03-24] MEDS: NEPRO SHAKE 237 ML CAN PO SCH ×2 (10:18→13:54)
[2022-03-24] MEDS ORDERED: guaiFENesin 100 MG/5 ML UCUP PO PRN (11:22)
--- NOTE | 2022-03-24 12:14 | P.CNS ---
Date of Consult: 03/24/22 Reason for Consult: Cough shortness of breath Chief Complaint: Generalized weakness and SOB History of Present Illness: Patient is 81 years of age with a history of CHF colon cancer metabolic syndrome admitted with acute onset of cough shortness of breath initiated dropping her sats she still complaining of some cough and shortness of breath overall is better Allergies Sulfa (Sulfonamide Antibiotics) Allergy (Intermediate, Verified 09/22/21 21:30) Rash Home Medications: Aspirin [Aspirin EC 81 MG] 81 mg PO DAILY 02/07/22 Carvedilol [Coreg] 25 mg PO BID 02/07/22 Furosemide 40 mg PO DAILY 02/07/22 Insulin Lispro [Humalog] See Rx Instructions .ROUTE .COMPLEX 02/07/22 Magnesium Oxide [Mag 0X*] 400 mg PO DAILY 02/07/22 Rosuvastatin Calcium 40 mg PO BEDTIME 02/07/22 Trazodone [Desyrel*] 50 mg PO BEDTIME 02/07/22 Clopidogrel Bisulfate [Plavix] 75 mg PO DAILY 03/04/22 Insulin Detemir [Levemir] 60 units SQ BEDTIME 03/04/22 Pregabalin 75 mg PO BID 03/04/22 Ezetimibe [Zetia] 10 mg PO DAILY #30 tab 03/05/22 Folic Acid 1 mg PO DAILY #30 tab 03/05/22 Amlodipine [Norvasc*] 5 mg PO BID 03/22/22 Cholecalciferol (Vitamin D3) [Vitamin D3] 1 tab PO DAILY 03/22/22 Cyanocobalamin/Cobamamide [Vitamin B-12 5,000 Mcg Tab Sl] 1 tab PO DAILY 03/22/22 Dulaglutide [Trulicity] 0.75 mg SQ MO 03/22/22 Ferrous Sulfate [Ferrous Sulfate*] 325 mg PO DAILY 03/22/22 Metformin ER [Glucophage ER*] 500 mg PO BIDWM 03/22/22 Sertraline [Zoloft*] 100 mg PO DAILY 03/22/22 Spironolactone [Aldactone*] 25 mg PO BID 03/22/22 - Past Medical/Surgical History Diabetic: Yes -: Glaucoma -: CHF, diastolic dysfunction -: HTN -: GERD -: DM II with PolyNeuropathy -: CKD III (Dr. Alvarez) -: CAD -: Fatty liver with Morbid Obesity -: CAD -: COPD -: History of Colon CA -: Cholecystectomy -: Colon resection -: Appendectomy -: Hysterectomy -: Right Rotator Cuff Repair -: Colectomy Psychosocial/ Personal History: She lives at home. Her daughter helps her at home. - Family History Mother Medical History: Cancer Notes: colon Brother Medical History: Hypertension Sister Medical History: Heart disease, Hypertension, Lung disease, Cancer - Social History Smoking Status: Never smoker Alcohol use: No CD- Drugs: No Caffeine use: Yes Place of Residence: Home Review of Systems 10-point ROS is otherwise unremarkable General: Weakness Respiratory: Cough, Shortness of Breath Physical Examination Temp Pulse Resp BP Pulse Ox 97.8 F 79 18 152/68 H 96 03/24/22 12:00 03/24/22 12:00 03/24/22 12:00 03/24/22 12:00 03/24/22 12:00 General: Alert, In no apparent distress, Oriented x3 Neck: No Thyromegaly Cardiovascular: No edema, Regular rate/rhythm, Normal S1 S2 Gastrointestinal: Normal bowel sounds, Soft and benign - Problems (1) Acute on chronic diastolic (congestive) heart failure Onset Date: 02/18/17 Current Visit: No Status: Acute Plan: Patient is 81 years of age admitted with worsening dyspnea most likely acute on chronic diastolic heart failure with secondary severe pulmonary hypertension patient has mild normocytic anemia history of colon cancer transferrin saturation is low most likely iron deficiency patient has oxygen at home chronic renal failure is improving patient is on spironolactone and Lasix at home recommend increasing Lasix to 80 mg once a day continue with spironolactone perfusion scan does not indicate pulmonary embolism will follow-up as an outpatient avoid steroid patient is not taking any bronchodilators at home
--- NOTE | 2022-03-24 15:32 | P.DS ---
Admission Date: 03/22/22 Discharge Date: 03/24/22 Disposition: DC HOME/HOME HEALTH CARE Discharge Condition: GOOD Reason for Admission: Generalized weakness and SOB Consultations: 1. Pulmonary Medicine 2. Nephrology Hospital Course: - Plan DIAGNOSES: # Acute Hypoxic Respiratory Failure - likely secondary to Chronic Obstructive Pulmonary Disease Exacerbation # Pulmonary Venous Hypertension # KDIGO Stage I Acute Kidney Injury on Chronic Kidney Disease Stage III # Possible Klebsiella Pneumoniae Urinary Tract Infection # Steroid-Induced Hyperglycemia in Type 2 Diabetes Mellitus with Diabetic Neuropathy # Chronic Compensated Diastolic Congestive Heart Failure with Preserved Ejection Fraction # Coronary Artery Disease # Hypertension # Hyperlipidemia # Gastroesophageal Reflux Disease # Morbid Obesity - BMI 42.1 kg/m2 # History of Colon Cancer HOSPITAL COURSE: Ms. Gloria Longoria is a pleasant 81-year-old female with a past medical history significant for chronic obstructive pulmonary disease, coronary artery disease, type 2 diabetes mellitus, chronic diastolic congestive heart failure, chronic kidney disease stage III, hypertension, hyperlipidemia, and gastroesophageal reflux disease who was admitted to the [facility] on 03/22/2022 for shortness of breath. She was admitted to the Medicine service. Upon further evaluation, she was found to have an acute hypoxic respiratory failure secondary to an acute COPD exacerbation. Her chest x-ray revealed, "upper lobe vessels are prominent i ndicative of pulmonary venous hypertension. The lungs appear clear of acute infiltrate. The heart is normal size." Her V/Q scan revealed, "perfusion only examination showing no findings suspicious for pulmonary embolism. No significant change from January 2022 imaging." She was treated with bronchodilators and steroids, with significant improvement in her respiratory status. In addition to her respiratory symptoms, she was also found to have an acute kidney injury. Nephrology was consulted and she was evaluated by Dr. Alvarez. He felt that her acute kidney injury was secondary to overdiuresis. Her medications were adjusted and she demonstrated improvement in her creatinine. Her hospital course was also complicated by steroidinduced hyperglycemia, which was controlled with subcutaneous insulin. On 03/24/2022, she was seen on morning rounds and deemed medically stable for discharge. She was discharged with instructions to schedule follow-up appointments with her PCP (Dr. Cormier), her fishing reel assembler (Dr. Villa), and her mail opener (Dr. Alvarez). She was provided a prescription for prednisone, benzonatate, and cefdinir. She and her daughter were given the opportunity to ask questions and reported no further questions. Furthermore, all questions were answered to the best of my ability. A copy of this discharge summary will be sent to the above providers to facilitate continuity of care. Today, I personally spent 25 minutes on her case, of which greater than 50% of the time was spent in patient education, counseling, and coordination of care as described above. - Physical Exam General: Alert, In no apparent distress, Oriented x3 HEENT: Atraumatic, Mucous membr. moist/pink, Sclerae nonicteric Neck: Supple, JVD not distended Respiratory: Clear to auscultation bilaterally without wheezes, rhonchi, or rales Cardiovascular: No edema, Regular rate/rhythm, Normal S1 S2, No gallops, No rubs, No murmurs Gastrointestinal: Normal bowel sounds, Soft and benign, No tenderness, No rebound, No guarding Musculoskeletal: No clubbing Integumentary: No rashes Neurological: Normal speech, Normal affect Vital Signs/Physical Exam: Temp Pulse Resp BP Pulse Ox 97.8 F 79 18 152/68 H 96 03/24/22 12:00 03/24/22 12:00 03/24/22 12:00 03/24/22 12:00 03/24/22 12:00 Laboratory Data at Discharge: WBC 12.70 K/uL (4.3-10.9) H 03/24/22 03:20 Hgb 7.7 g/dL (12.0-15.0) L 03/24/22 03:20 Hct 24.1 % (36.0-45.0) L 03/24/22 03:20 Plt Count 238 K/uL (152-406) 03/24/22 03:20 Sodium 141 mmol/L (136-145) 03/24/22 03:20 Potassium 4.4 mmol/L (3.5-5.1) 03/24/22 03:20 BUN 45 mg/dL (7-18) H 03/24/22 03:20 Creatinine 1.59 mg/dL (0.55-1.02) H 03/24/22 03:20 Glucose 239 mg/dL (74-106) H 03/24/22 03:20 Uric Acid 8.9 mg/dL (2.6-6.0) H 03/24/22 03:20 Phosphorus 3.3 mg/dL (2.5-4.9) 03/24/22 03:20 Magnesium 2.4 mg/dL (1.6-2.4) 03/24/22 03:20 Total Bilirubin 0.4 mg/dL (0.2-1.0) 03/24/22 03:20 AST 31 U/L (15-37) 03/24/22 03:20 ALT 37 U/L (13-56) 03/24/22 03:20 Alkaline Phosphatase 103 U/L (45-117) 03/24/22 03:20 Home Medications: Aspirin [Aspirin EC 81 MG] 81 mg PO DAILY 02/07/22 Carvedilol [Coreg] 25 mg PO BID 02/07/22 Insulin Lispro [Humalog] See Rx Instructions .ROUTE .COMPLEX 02/07/22 Magnesium Oxide [Mag 0X*] 400 mg PO DAILY 02/07/22 Rosuvastatin Calcium 40 mg PO BEDTIME 02/07/22 Trazodone [Desyrel*] 50 mg PO BEDTIME 02/07/22 Clopidogrel Bisulfate [Plavix] 75 mg PO DAILY 03/04/22 Insulin Detemir [Levemir] 60 units SQ BEDTIME 03/04/22 Pregabalin 75 mg PO BID 03/04/22 Ezetimibe [Zetia*] 10 mg PO DAILY #30 tab 03/05/22 Folic Acid 1 mg PO DAILY #30 tab 03/05/22 Amlodipine [Norvasc*] 5 mg PO BID 03/22/22 Cholecalciferol (Vitamin D3) [Vitamin D3] 1 tab PO DAILY 03/22/22 Cyanocobalamin/Cobamamide [Vitamin B-12 5,000 Mcg Tab Sl] 1 tab PO DAILY 03/22/22 Dulaglutide [Trulicity] 0.75 mg SQ MO 03/22/22 Ferrous Sulfate [Ferrous Sulfate*] 325 mg PO DAILY 03/22/22 Metformin ER [Glucophage ER*] 500 mg PO BIDWM 03/22/22 Sertraline [Zoloft*] 100 mg PO DAILY 03/22/22 Spironolactone [Aldactone*] 25 mg PO BID 03/22/22 Benzonatate [Tessalon Perle*] 100 mg PO TID PRN 7 Days #20 cap 03/24/22 Cefdinir [Cefdinir*] 300 mg PO BID 5 Days #10 cap 03/24/22 Furosemide 40 mg PO DAILY #30 03/24/22 predniSONE [Prednisone*] 20 mg PO BID 5 Days #10 tab 03/24/22 New Medications: Cefdinir [Cefdinir*] 300 mg PO BID 5 Days #10 cap Furosemide 40 mg PO DAILY #30 predniSONE [Prednisone*] 20 mg PO BID 5 Days #10 tab Benzonatate [Tessalon Perle*] 100 mg PO TID PRN 7 Days #20 cap PRN Reason: COUGH - 2ND LINE Physician Discharge Instructions: 1. Please call and schedule a follow-up appointment with your PCP (Dr. Cormier) in 3-5 days 2. Please call and schedule a follow-up appointment with Pulmonary Medicine (Dr. Villa) in 5-7 days 3. Please call and schedule a follow-up appointment with Nephrology (Dr. Alvarez) in 5-7 days Diet: AHA Activity: Fall precautions Followup: Destin Villa MD [ACTIVE - CAN ADMIT] - Bird Alvarez DO [ACTIVE - CAN ADMIT] - Addie Cormier DO [ACTIVE - CAN ADMIT] - Time spent managing pt's care (in minutes): 25
--- NOTE | 2022-03-24 16:07 | EKG ---
Test Date: 2022-03-22 Test Time: 15:21:53 Pharmacy Technology Instructor: CHELA MEASUREMENT RESULTS: Intervals: Rate: 79 SC: 274 QRSD: 84 QT: 402 QTc: 460 [place]: P: 11 SC: 274 QRS: -5 T: 93 INTERPRETIVE STATEMENTS: Sinus rhythm with 1st degree AV block Possible Anterior infarct, age undetermined T wave abnormality, consider lateral ischemia Abnormal ECG Compared to ECG 03/04/2022 16:37:39 T-wave abnormality now present ST (T wave) deviation no longer present Myocardial infarct finding still present Possible ischemia still present Electronically Signed On 03-24-22 16:04:47 STRATEGIC ADVISOR by Ean Beavers
[2022-03-24 16:33] VITALS: BP 169/72; TEMP 97.7
[2022-03-24 16:49] VITALS: O2SAT 95
--- NOTE | 2022-03-24 21:53 | P.PN ---
Date of Service: 03/24/22 Vital Signs Temp Pulse Resp BP Pulse Ox 97.7 F 83 18 169/72 H 95 03/24/22 16:00 03/24/22 16:00 03/24/22 16:00 03/24/22 16:00 03/24/22 16:00 Assessment/ Plan: Nephrology No dyspnea No chest pain Feeling better No acute events overnight Vitals, medications, blood work and imaging reviewed in the chart. General: Oriented x3, Cooperative HEENT: Atraumatic Neck: Supple Respiratory: Diminished (Coarse and diminished right base) Cardiovascular: No edema, Regular rate/rhythm Gastrointestinal: Soft and benign, Non-distended Musculoskeletal: No clubbing, No contractures Integumentary: No rashes, No cyanosis Neurological: Normal speech Blood work reviewed in the chart. Imagings Data: EXAM DESCRIPTION: US - Renal Ultrasound-Complete - 03/23/2022 2:08 pm CLINICAL HISTORY: LONG COMPARISON: Renal Ultrasound-Complete dated 02/08/2022 FINDINGS: Both kidneys are normal in size, shape and echotexture. The right kidney measures 11.5 cm. No hydronephrosis, focal mass or perinephric fluid. The left kidney measures 11.6 cm. No hydronephrosis, focal mass or perinephric fluid. The urinary bladder is incompletely distended without gross abnormality seen. IMPRESSION: Unremarkable renal sonogram. No hydronephrosis. EXAM DESCRIPTION: [facility] Single View03/22/2022 2:08 pm CLINICAL HISTORY: Chest pain COMPARISON: March 04, 2020 FINDINGS: Upper lobe vessels are prominent indicative of pulmonary venous hypertension. The lungs appear clear of acute infiltrate. The heart is normal size LEFT VENTRICULAR WALL MOTION: NORMAL DOPPLER/COLOR FLOW: SEE BELOW COMMENTS: 1. NORMAL LEFT VENTRICULAR EJECTION FRACTION 60-65% WITH NORMAL WALL MOTION 2. MODERATE DIASTOLIC DYSFUNCTION 3. MILD MITRAL REGURGITATION/ MILD TRICUSPID REGURGITATION 4. SEVERE PULMONARY HYPERTENSION WITH RIGHT VENTRICULAR SYSTOLIC PRESSURE GREATER THAN 60 mmHg 5. LEFT ATRIAL ENLARGEMENT Conclusions/Impression: Stage I LONG likely due to hypovolemia in the setting of Pulmonary HTN CKD III with proteinuria -No NSAIDs HTN with CKD/ CHF -Continue Coreg Diastolic CHF, chronic Pulmonary HTN, Severe -Continue Coreg DM II with CKD & Polyneuropathy & Hyperglycemia -Continue Lantus -RISS Hypoalbuminemia -Continue Nepro Anemia in chronic illness Iron deficiency 11% -Consider Retacrit CKD MBD Hx Vitamin D3 Deficiency -Continue Ergo Case reviewed with Dr. Ayon
[2022-03-28 05:54] LABS: Alpha-1-Globulins 0.5 g/dL (0.2-0.3); Alpha-2-Globulins 1.2 g/dL (0.5-0.9); Gamma Globulins 1.1 g/dL (0.8-1.7); INTERPRETATION REPORT
== END 2022-03-24 16:40 | disposition home health service (06) | DRG 190 ==
LOC: ER 13:15 → ERHOLD 16:45 → 4TH 20:54
PROVIDERS: ADMIT Internal Medicine; ATTEND Internal Medicine
DX: J44.1 Chronic obstructive pulmonary disease with (acute) exacerbation (principal); J96.01 Acute respiratory failure with hypoxia; I13.0 Hypertensive heart and chronic kidney disease with heart failure and stage 1 through stage 4 chronic kidney disease, or unspecified chronic kidney disease; Z68.41 Body mass index [BMI] 40.0-44.9, adult; N17.9 Acute kidney failure, unspecified; N39.0 Urinary tract infection, site not specified; I50.32 Chronic diastolic (congestive) heart failure; N18.32 Chronic kidney disease, stage 3b; E11.22 Type 2 diabetes mellitus with diabetic chronic kidney disease; E11.42 Type 2 diabetes mellitus with diabetic polyneuropathy; E11.65 Type 2 diabetes mellitus with hyperglycemia; E11.39 Type 2 diabetes mellitus with other diabetic ophthalmic complication; H42 Glaucoma in diseases classified elsewhere; E66.01 Morbid (severe) obesity due to excess calories; H54.7 Unspecified visual loss; E78.5 Hyperlipidemia, unspecified; F32.A Depression, unspecified; I27.20 Pulmonary hypertension, unspecified; K21.9 Gastro-esophageal reflux disease without esophagitis; E88.09 Other disorders of plasma-protein metabolism, not elsewhere classified; I25.10 Atherosclerotic heart disease of native coronary artery without angina pectoris; I25.2 Old myocardial infarction; B96.1 Klebsiella pneumoniae [K. pneumoniae] as the cause of diseases classified elsewhere; R51.9 Headache, unspecified; Z88.1 Allergy status to other antibiotic agents; Z79.4 Long term (current) use of insulin; Z99.81 Dependence on supplemental oxygen; Z79.52 Long term (current) use of systemic steroids; Z90.49 Acquired absence of other specified parts of digestive tract; Z79.82 Long term (current) use of aspirin; Z79.02 Long term (current) use of antithrombotics/antiplatelets; Z79.84 Long term (current) use of oral hypoglycemic drugs; Z79.899 Other long term (current) drug therapy; Z90.710 Acquired absence of both cervix and uterus; Z85.038 Personal history of other malignant neoplasm of large intestine; Z20.822 Contact with and (suspected) exposure to COVID-19
CPT/HCPCS: 0240U; 36415; 71045; 76770; 78582; 80048; 80053; 81001; 81003; 81015; 82570; 82947; 83540; 83605; 83735; 83880; 84100; 84145; 84156; 84165; 84466; 84484; 84550; 85025; 86160; 87040; 87077; 87086; 87088; 87186; 93005; 96374; 96375; 97116; 97161; 97530; 99285; A9540; J1644; J1815; J1940; J2930; J7030; J7512; J7613; J7644

== ENCOUNTER 2022-04-17 11:35 | Emergency (ER) | payer OTHER ==
--- OUTSIDE RECORDS SUMMARY | 2022-04-17 11:47 | XMS REPORT | Continuity of Care Document ---
:1940 Author Organization [facility] t Address [address] [place] [address] Care Team Providers Name Role Phone ADDIE SLAUGHTER Primary Care Physician Unavailable Addie SLAUGHTER Attending Clinician Unavailable Bryce GARNETT, Ramiro Waller Attending Clinician [phone] ASTRID WOODY Attending Clinician Unavailable MARIO PLATA Attending Clinician Unavailable MARIO PLATA Attending Clinician Unavailable Luís Attending Clinician Unavailable Mario Plata DO Attending Clinician [facility] Attending Clinician Unavailable Senthil Schmidt MD Attending Clinician SENTHIL SCHMIDT Attending Clinician Unavailable SENTHIL SCHMIDT Attending Clinician Unavailable JOANN GORMAN Attending Clinician Unavailable Harvey Jackman MD Attending Clinician Vita GARNETT, Joann Rondon Attending Clinician SergioS_SIM Attending Clinician Unavailable OrtegaA_AH Attending Clinician Unavailable RAMIRO JIMÉNEZ I. Admitting Clinician Unavailable ASTRID WOODY Admitting Clinician Unavailable Enoc_T Admitting Clinician Unavailable JOANN GORMAN Admitting Clinician Unavailable Eliseo_ISM Admitting Clinician Unavailable Duncan_SIM Admitting Clinician Unavailable Payers Payer Name Policy Type Policy Number Effective Date Expiration Date S masoud [facility] [id number] 2020 00:00:00 [employer]LL[employer]ARP [id number] 2021 MCARE ADV CHOICE 00:00:00 PPO [place] [id number] HEALTHCARE (MEDICARE REPLACEMENT/ADVA NTAGE - PPO) [id number] 2021 Common ADVANTAGE 00:00:00 [facility] C1 [id number] 2019 Common 00:00:00 [facility] [place] - [id number] 2019 [place] 00:00:00 (MEDICARE REPLACEMENT/ADVA NTAGE - HMO) Problems Condition Condition Condition Status Onset Resolution Last Treating Co mments Source Name Details Category Date Date Treatment Clinician Date Speech Speech Disease Active 2021-[address] [facility] abnormalit abnormalit 1-04 Susu kes y y 00:00: Medical 00 Center CAD CAD Disease Active [facility] (coronary (coronary 4-15 [facility] s artery artery 00:00: Medical disease) disease) 00 Center No known No known Disease Unive rs active active ity of problems problems [place] [facility] [id number] Left eye Problem Com mon 10612 pain [facility] G[facility]ropare Gastropare Problem C ommon sis sis [facility] 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 - [facility]I translumin angioplast St al y implant [facility] coronary and graft Medic al angioplast Center y [id number] Transient Problem Com mon ischemic [facility] attack - [facility] [id number] Stage 3 Problem Commo n chronic Spirit kidney - CHI disease, St unspecifie [facility] d whether Medical stage 3a Center or 3b CKD [id number] Chronic Problem Common obstructiv Spirit e - [facility] pulmonary [facility] disease, [facility] unspecifie Medica l d COPD Center type [id number] Need for Problem Comm on assistance Spirit due to - CHI unsteady [facility] [id number] Constipati Problem Com mon on, Spirit unspecifie - [facility] d St constipati [facility] on [facility] Medical Asher [id number] Chronic Problem Common bronchitis Spirit , - CHI unspecifie St d chronic [facility] bronchitis Medica type Center [id number] Gastroesop Problem Co mmon hageal Spirit reflux - [facility], [facility] presence Medica l not Center specified [id number] Essential Problem Comm on hypertensi Spirit on - [facility] [id number] Mixed Problem Common hyperlipid Spirit emia - CH[facility] [id number] Lymphedema Problem C ommon [id number] of both Spirit lower - [facility] extremitie [facility] [id number] Iron Problem Common deficiency Spirit anemia, - CHI unspecifie St d iron [facility] deficiency Medica anemia Center type [id number] Glaucoma Problem Commo n of both Spirit eyes, - CHI unspecifie d glaucoma [facility] [id number] Diabetic Problem Comm on autonomic Spirit neuropathy - [facility] associated [facility] with [facility] 2 diabetes Medica mellitus Center [id number] Current Problem Common mild Spirit episode of - [facility] major [facility] depressive 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 [id number] Severe Problem Common major Spirit depression - [facility] [id number] Depression Problem Co mmon with Spirit anxiety - [facility] [id number] Anxiety Problem Common Spirit - [facility] [id number] Primary Problem Commo n osteoarthr Spirit itis of - CHI both knees [facility] [id number] Obstructiv Problem Com mon e sleep Spirit apnea - CHI syndrome [facility] [id number] Hypokalemi Problem Com mon a Spirit - [facility] [id number] 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 [facility] coronary Medical artery Center without angina pectoris [id number] shelter Problem Com mon (current) Spirit use of - CHI insulin [facility] [id number] Type 2 Problem Common diabetes Spirit mellitus - [facility] without St complicati [facility] [id number] History of Problem Co mmon glaucoma Spirit - [facility] Insulin Insulin Disease Active [facility] dependent dependent [facility] diabetes diabetes Medica l mellitus mellitus Center 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 Overview: [facility] Formattin kes g of this Medical note Center might [...] Clinician SULFA Allergy Active 2021-03 [facility] (SULFONA 1-04 MIDE 00:00: ANTIBIOT 00 ICS) Sulfa Propensi Active 2021-[address] (Sulfona ty to 04 [facility] mide adverse 00:00: Medical Antibiot reaction 00 Center ics) s Sulfa Propensi Active 2021-[address] (Sulfona ty to 1-04 [facility] mide adverse 00:00: Medical Antibiot reaction 00 Center ics) s Sulfa DA Active [facility] (Sulfona 7-25 [place] mide 00:00: d Antibiot 00 Medical ics) Center NO KNOWN Drug Active Univers DRUG Class 4- ity of ALLERGIE 00:00: [place] S 00 Medical Branch No Known Propensi Active Univer s Drug ty to 06-19 ity of Allergie adverse 00:00: [place] s reaction 00 Medical s Branch NO KNOWN Allergy Active [facility] Family [facility] Family Member Diagnosis Comments Start Date Stop Date Source Natural mother Cancer [facility] Social History Social Habit Start Date Stop Date Quantity Comments Source History of Common Spirit - Tobacco Use [facility] History SDOH [facility] Alcohol Std Medical Cente r Drinks History SDOH [facility] Alcohol Binge [facility] History SDOH [facility] Alcohol Comment Medical C enter History SDOH [facility] Transport Non-Med Medical Center History SDOH [facility] Housing Places Medical Ce nter Lived Exposure to 2022-02-13 2022-02-23 Not sure [facility] 00:00:00 10:23:00 [place] [facility] (event) Branch History SDOH 2022-01-23 2022-01-[address] [facility] Transport Med 00:00:00 00:00:[address] History SDOH 2022-01-23 2022-01-[address] [facility] Housing Unable to 00:00:00 00:00:00 Medical Center Pay History SDPA 2022-01-23 2022-01-[address] [facility] Housing Homeless 00:00:00 00:00:00 Medical Center Last Year Alcohol intake 2022-01-23 2022-01-[address] [facility] 00:00:00 00:00:00 non-drinker Medical Cente r (finding) History [facility] 2020-07-04 2020-07-[address] [facility] Alcohol Frequency 00:00:00 00:00:00 Medical Center Tobacco use and 2020-07-03 2020-07-[address] Susu kes exposure 00:00:00 00:00:00 [facility] Sex Assigned At [address] Susu kes 00:00:00 00:00:00 Medical Center Smoking Status Start Date Stop Date Source Tobacco smoking consumption [facility] Medical unknown Branch Never smoker [facility] Medications Ordered Filled Start Stop Current [...] 75 MG 2-15 75 MG 00:00: 00 aspirin 2021-03 Yes 81mg Take 81 mg U nivers mg EC 2-06 by mouth ity of tablet 10:44: in the [place] morning. Medical Branch fluticasone 2021-03 Yes 1 puff Univ ers propion-jaylene 2-06 ity of meteroL 10:44: [place] (ADVAIR 05 Medical DISKUS) Branch 250-50 mcg/dose inhalation disk Insulin 2021-03 Yes inject 60 Unive rs Detemir 2-06 units in ity of (LEVEMIR 10:44: AM and 60 [place] FLEXTOUCH 05 units in Medica l U-100 PM and Branch INSULN) 100 titrate up unit/mL (3 2 units mL) every 2 injection days until FBG less 120, ( max 160 units/day) aspirin 2021-03 Yes 81mg Take 81 mg U nivers mg EC 2-06 by mouth ity of tablet 10:44: in the [place] morning. Medical Branch fluticasone 2021-03 Yes 1 puff Univ ers propion-jaylene 2-06 ity of meteroL 10:44: [place] (ADVAIR 05 Medical DISKUS) Branch 250-50 mcg/dose inhalation disk Insulin 2021-03 Yes inject 60 Unive rs Detemir 2-06 units in ity of (LEVEMIR 10:44: AM and 60 [place] FLEXTOUCH 05 units in Medica l U-100 PM and Branch INSULN) 100 titrate up unit/mL (3 2 units mL) every 2 injection days until FBG less 120, ( max 160 units/day) aspirin 2021-03 Yes 81mg Take 81 mg U nivers mg EC 2-06 by mouth ity of tablet 10:44: in the [place] morning. Medical Branch fluticasone 2021-03 Yes 1 puff Univ ers propion-jaylene 2-06 ity of meteroL 10:44: [place] (ADVAIR 05 Medical DISKUS) Branch 250-50 mcg/dose inhalation disk Insulin 2021-03 Yes inject 60 Unive rs Detemir 2-06 units in ity of (LEVEMIR 10:44: AM and 60 [place] FLEXTOUCH 05 units in Medica l U-100 PM and Branch INSULN) 100 titrate up unit/mL (3 2 units mL) every 2 injection days until FBG less 120, ( max 160 units/day) aspirin 81 2021-03 Yes 81mg Take 81 mg U nivers mg EC 2-06 by mouth ity of tablet 10:44: in the [place] 05 morning. Medical Branch fluticasone 2021-03 Yes 1 puff Univ ers propion-jaylene 2-06 ity of meteroL 10:44: [place] (ADVAIR 05 Medical DISKUS) Branch 250-50 mcg/dose inhalation disk Insulin 2021-03 Yes inject 60 Unive rs Detemir 2-06 units in ity of (LEVEMIR 10:44: AM and 60 [place] FLEXTOUCH 05 units in Medica l U-100 PM and Branch INSULN) 100 titrate up unit/mL (3 2 units mL) every 2 injection days until FBG less 120, ( max 160 units/day) Continuous Continuous 2021-03 No Continuous Glucose Glucose 1-21 Glucose Monitor Sup Monitor Sup 00:00: Monitor - - 00 Sup - LEVEMIR 2021-03 Yes Univers FLEXTOUCH 1-21 ity of U-100 00:00: [place] INSULN 100 00 Medical unit/mL (3 Branch mL) injection LEVEMIR 2021-03 Yes Univers FLEXTOUCH 1-21 ity of U-100 00:00: [place] INSULN 100 00 Medical unit/mL (3 Branch mL) injection LEVEMIR 2021-03 Yes Univers FLEXTOUCH 1-21 ity of U-100 00:00: [place] INSULN 100 00 Medical unit/mL (3 Branch mL) injection LEVEMIR 2021-03 Yes Univers FLEXTOUCH 1-21 ity of U-100 00:00: [place] INSULN 100 00 Medical unit/mL (3 Branch mL) injection magnesium 2021-03 Yes 400mg Take 400 Uni vers oxide 400 1-20 mg by ity of mg (241.3 00:00: mouth in [facility] mg 00 the Medical magnesium) morning. Bran h tablet traZODone 2021-03 Yes 50mg Take 50 mg Un radha 50 mg 1-20 by mouth ity of tablet 00:00: every [place] 00 evening. Medical Branch cyanocobala 2021-03 Yes 5000ug Take 5,000 Univers min, 1-20 mcg by ity of vitamin 00:00: mouth [place] B-12, 5,000 00 daily. Medica l mcg TbDL Branch magnesium 2021-03 Yes 400mg Take 400 Uni vers oxide 400 1-20 mg by ity of mg (241.3 00:00: [place] mg 00 the Medical magnesium) morning. Branc h tablet traZODone 2021-03 Yes 50mg Take 50 mg Un radha 50 mg 1-20 by mouth ity of tablet 00:00: every [place] 00 evening. Medical Branch cyanocobala 2021-03 Yes 5000ug Take 5,000 Univers min, 1-20 mcg by ity of vitamin 00:00: mouth [place] B-12, 5,000 00 daily. Medica l mcg TbDL Branch magnesium 2021-03 Yes 400mg Take 400 Uni vers oxide 400 1-20 mg by ity of mg (241.3 00:00: mouth [place] mg 00 the Medical magnesium) morning. Branc h tablet traZODone 2021-03 Yes 50mg Take 50 mg Un radha 50 mg 1-20 by mouth ity of tablet 00:00: every [place] 00 evening. Medical Branch cyanocobala 2021-03 Yes 5000ug Take 5,000 Univers min, 1-20 mcg by ity of vitamin 00:00: mouth [place] B-12, 5,000 00 daily. Medica l mcg TbDL Branch magnesium 2021-03 Yes 400mg Take 400 Uni vers oxide 400 1-20 mg by ity of mg (241.3 00:00: mouth [place] mg 00 the Medical magnesium) morning. Branc h tablet traZODone 2021-03 Yes 50mg Take 50 mg Un radha 50 mg 1-20 by mouth ity of tablet 00:00: every [place] 00 evening. Medical Branch cyanocobala 2021-03 Yes 5000ug Take 5,000 Univers min, 1-20 mcg by ity of vitamin 00:00: mouth [place] B-12, 5,000 00 daily. Medica l mcg TbDL Branch rosuvastati 2021-03 Yes 40mg Take 40 mg Univers n 40 mg 1-18 by mouth ity of tablet 00:00: in the [place] 00 morning. Medical Branch rosuvastati 2021-03 Yes 40mg Take 40 mg Univers n 40 mg 1-18 by mouth ity of tablet 00:00: in the [place] morning. Medical Branch rosuvastati 2021-03 Yes 40mg Take 40 mg Univers n 40 mg 1-18 by mouth ity of tablet 00:00: in the [place] morning. Medical Branch rosuvastati 2021-03 Yes 40mg Take 40 mg Univers n 40 mg 1-18 by mouth ity of tablet 00:00: in the [place] 00 morning. Medical Branch Benzonatate Benzonatate 2021-03- No TID Benzonatat 200 MG 200 MG 18 -28 e 200 MG 00:00: 00:00 00 :00 Benzonatate Benzonatate 2021-03- No TID Benzonatat 200 MG 200 MG 18 - e 200 MG 00:00: 00:00 00 :00 FreeStyle FreeStyle 2021-03 No FreeStyle Jonna 2 Jonna 2 1-14 Jonna 2 Woodman - Woodman - 00:00: Woodman - 00 FreeStyle FreeStyle 2021-03 No FreeStyle Jonna Jnona 1-14 Jonna Woodman - Woodman - 00:00: [place] - 00 FreeStyle FreeStyle 2021-03 No FreeStyle Jonna 2 Jonna 2 1-14 Jonna 2 Woodman - Woodman - 00:00: Woodman - 00 FreeStyle FreeStyle 2021-03 No FreeStyle Jonna Jonna 1-14 Jonna Woodman - Woodman - 00:00: Woodman - 00 LUMIGAN 2021-03 Yes Univers 0.01 % 1-10 ity of ophthalmic 00:00: [place] drops 00 Medical Branch LUMIGAN 2021-03 Yes Univers 0.01 % 1-10 ity of ophthalmic 00:00: [place] drops 00 Medical Branch [facility]-03 Yes Univers 0.01 % 1-10 ity of ophthalmic 00:00: [place] drops 00 Medical Branch LUMIGAN 2021-03 Yes Univers 0.01 % 1-10 ity of ophthalmic 00:00: [place] drops 00 Medical Branch aspirin 81 2021-03 Yes 81mg QD Take [...] l 48 Center dorzolamide 2021-03 Yes 1[drp] Q.29304916 [address] [facility] (TRUSOPT) 2 1-07 [id number] (three) [facility]ukes % 18:06: 3D times Medical [...] MG 18:06: mouth Medical tablet 48 daily. Asher cyanocobala 2021-03 Yes 5000ug QD Take 5,[address] min 1-07 mcg by Lukes (vitamin 18:06: mouth Medical B-12) 1000 48 daily. Asher MCG tablet aspirin 81 2021-03 Yes 81mg [...] l 48 Center dorzolamide 2021-03 Yes 1[drp] Q.38547864 [address] [facility] (TRUSOPT) 2 1-07 [id number] (three) Lukes % 18:06: 3D times Medical [...] MG 18:06: mouth Medical tablet 48 daily. Asher cyanocobala 2021-03 Yes 5000ug QD Take 5,[address] min 1-07 mcg by Lukes (vitamin 18:06: mouth Medical B-12) 1000 48 daily. Asher MCG tablet aspirin 81 2021-03 Yes 81mg [...] l 48 Center dorzolamide 2021-03 Yes 1[drp] Q.05121879 [address] (TRUSOPT) 2 1-07 [id number] (three) Lukes % 18:06: 3D times Medical ophthalmic 48 daily. Asher solution insulin 2021-03 Yes 70U Q.5D Inject [...] MG 18:06: mouth Medical tablet 48 daily. Asher cyanocobala 2021-03 Yes 5000ug QD Take 5,[address] min 1-07 mcg by Lukes (vitamin 18:06: mouth Medical B-12) 1000 48 daily. Asher MCG tablet aspirin 81 2021-03 Yes 81mg QD Take [address] MG EC 1-07 by mouth Lukes tablet 18:06: daily. Medical 48 Center fluticasone 2021-03 Yes 2{puff} QD Inhale [address] propion-jaylene 1-07 puffs by Luke s meteroL 18:06: mouth via Medic al (ADVAIR) 48 inhaler Asher 250-50 daily . mcg/dose diskus inhaler amLODIPine 2021-03 Yes 5mg QD Take [address] (NORVASC) 5 1-07 by mouth Luke s MG tablet 18:06: daily. Medica l 48 Asher dorzolamide 2021-03 Yes 1[drp] Q.35264987 [address] [facility] (TRUSOPT) 2 1-07 [id number] (three) Lukes % 18:06: 3D times Medical ophthalmic 48 daily. Asher solution insulin 2021-03 Yes 70U Q.5D Inject [...] 18:06: mouth Medical 400 mg 48 daily. Asher (241.3 mg magnesium) tablet metFORMIN 2021-03 Yes [...] daily. Center MCG tablet gabapentin 2021-03 800mg Q.36644260 Take [address] (NEURONTIN) 1-07 11-07 [id number] mg by Lukes 800 MG 16:45: 00:00 [...] (3 mL) InPn daily before meals. clopidogreL 2021-03- No 75mg QD Take 75 mg CHI [...] Center hours as needed for Pain. gabapentin 2021-03- No 800mg Q.29642192 Take [address] (NEURONTIN) 03-27 [id number] mg by Lukes 800 MG 16:45: 00:00 3D mouth 3 Medical tablet 56 :00 (three) Center times daily. metoprolol 2021-03- No 100mg Q.5D Take 100 C HI [...] Center hours as needed for Pain. gabapentin 2021-03- No 800mg Q.93626436 Take [address] (NEURONTIN) 03-27 [id number] mg by Lukes 800 MG 16:45: 00:00 3D mouth 3 Medical tablet 56 :00 (three) Center times daily. metoprolol 2021-03- No 100mg Q.5D Take [address] tartrate 03-27 mg by Lukes (LOPRESSOR) 16:45: 00:00 mouth 2 Me dical 100 MG 56 :00 (two) Center tablet times daily. insulin 2021-03- No Inject [facility] aspart 03-27 subcutaneo Lukes U-100 16:45: 00:00 usly 3 Medical (NovoLOG) 56 :00 (three) Center 100 unit/mL times (3 mL) InPn daily before meals. clopidogreL 2021-03- No 75mg QD Take 75 mg CHI [...] Center hours as needed for Pain. gabapentin 2021-03- No 800mg Q.92210599 Take [address] (NEURONTIN) 03-27 [id number] mg by Lukes 800 MG 16:45: 00:00 3D mouth 3 Medical tablet 56 :00 (three) Center times daily. metoprolol 2021-03- No 100mg Q.5D Take [address] tartrate 03-27 mg by Lukes (LOPRESSOR) 16:45: 00:00 mouth 2 Me dical 100 MG 56 :00 (two) Center tablet times daily. insulin 2021-03- No Inject [facility] aspart 03-27 subcutaneo Lukes U-100 16:45: 00:00 usly 3 Medical (NovoLOG) 56 :00 (three) Center 100 unit/mL times (3 mL) InPn daily before meals. clopidogreL 2021-03 75mg QD Take [address] (PLAVIX) 75 03-27 by mouth Leah es mg tablet 16:45: 00:00 daily. Medic al 56 :00 Center pregabalin 2021-03 No 150mg Q.5D Take [address] (LYRICA) 03-27 mg by Lukes 150 MG 16:45: 00:00 mouth 2 Medical capsule 56 :00 (two) Center times daily. clopidogreL 2021-03 75mg QD Take [address] [...] for 3 days. metroNIDAZO 2021-03- No 500mg Q.56405911 Take [address] LE (FLAGYL) 03-27 [id number] tablet [facility]ukes 500 MG 00:00: 23:59 3D (500 mg Medical tablet 00 :00 total) by Center mouth 3 (three) times daily for 3 days. cefdinir 2021-03- No 300mg Q.5D Take 1 [facility]I S t (OMNICEF) 03-27 capsule [facility]ukes 300 MG 00:00: 23:59 (300 mg Medical capsule 00 :00 total) by Center mouth 2 (two) times daily for 3 days. metroNIDAZO 2021-03- No 500mg Q.[id number] Take [address] LE (FLAGYL) 03-27 [id number] tablet [facility]ukes 500 MG 00:00: 23:59 3D (500 mg Medical tablet 00 :00 total) by Center mouth 3 (three) times daily for 3 days. cefdinir 2021-03- No 300mg Q.5D Take 1 [facility]I S t (OMNICEF) 03-27 capsule [facility]ukes 300 MG 00:00: 23:59 (300 mg Medical capsule 00 :00 total) by Center mouth 2 (two) times daily for 3 days. metroNIDAZO 2021-03- No 500mg Q.[id number] Take [address] LE (FLAGYL) 03-27 [id number] tablet [facility]ukes 500 MG 00:00: 23:59 3D (500 mg Medical tablet 00 :00 total) by Center mouth 3 (three) times daily for 3 days. cefdinir 2021-03- No 300mg Q.5D Take 1 [facility]I S t (OMNICEF) 03-2710 capsule [facility]ukes 300 MG 00:00: 23:59 (300 mg Medical capsule 00 :00 total) by Center mouth 2 (two) times daily for 3 days. metroNIDAZO 2021-03 500mg Q.[id number] Take [address] LE (FLAGYL) 03-27 [id number] tablet [facility]ukes 500 MG 00:00: 23:59 3D [...] Zofran 4 0-27 t} MG 00:00: 00 carvediloL 2021-03 Yes 25mg Take 25 mg U nivers 25 mg 0-27 by mouth ity of tablet 00:00: in the [place] morning. Medical Branch carvediloL 2021-03 Yes 25mg Take 25 mg U nivers 25 mg 0-27 by mouth ity of tablet 00:00: in the [place] morning. Medical Branch carvediloL 2021-03 Yes 25mg Take 25 mg U nivers 25 mg 0-27 by mouth ity of tablet 00:00: in the [place] morning. Medical Branch carvediloL 2021-03 Yes 25mg Take 25 mg U nivers 25 mg 0-27 by mouth ity of tablet 00:00: in the [place] morning. Medical Branch pregabalin 2021-03 Yes 75mg Take 75 mg U nivers 75 mg 0-01 by mouth ity of capsule 00:00: in the [place] morning. Medical Branch pregabalin 2021-03 Yes 75mg Take 75 mg U nivers 75 mg 0-01 by mouth ity of capsule 00:00: in the [place] morning. Medical Branch pregabalin 2021-03 Yes 75mg Take 75 mg U nivers 75 mg 0-01 by mouth ity of capsule 00:00: in the [place] 00 morning. Medical Branch pregabalin 2021-03 Yes 75mg Take 75 mg U nivers 75 mg 0-01 by mouth ity of capsule 00:00: in the [place] 00 morning. Medical Branch Novofine Novofine No Novofine Pen Needle Pen Needle 9-22 Pen Needle 32G X 6 MM 32G X 6 MM 00:00: 32G X 6 MM 00 Pregabalin Pregabalin No 1{capsu BID Pregabalin 75 MG 75 MG 9-22 le} 75 MG 00:00: 00 Novofine Novofine No Novofine [...] MG 9-22 le} 75 MG 00:00: 00 amLODIPine 2-0 Yes 10mg Take 10 mg U nivers 10 mg 9-22 by mouth ity of tablet 00:00: in the [place] morning. Medical Branch amLODIPine 2-0 Yes 10mg Take 10 mg U nivers 10 mg 9-22 by mouth ity of tablet 00:00: in the [place] morning. Medical Branch amLODIPine 2-0 Yes 10mg Take 10 mg U nivers 10 mg 9-22 by mouth ity of tablet 00:00: in the [place] morning. Medical Branch amLODIPine 2-0 Yes 10mg Take 10 mg U nivers 10 mg 9-22 by mouth ity of tablet 00:00: in the [place] morning. Medical Branch furosemide 2-0 Yes 40mg Take 40 mg U nivers 40 mg 4-24 by mouth ity of tablet 00:00: in the [place] morning. Medical Branch furosemide 2022-0 Yes 40mg Take 40 mg U nivers 40 mg 4-24 by mouth ity of tablet 00:00: in the [place] 00 morning. Medical Branch furosemide 2022-0 Yes 40mg Take 40 mg U nivers 40 mg 4-24 by mouth ity of tablet 00:00: in the [place] 00 morning. Medical Branch furosemide 2022-0 Yes 40mg Take 40 mg U nivers 40 mg 4-24 by mouth ity of tablet 00:00: in the [place] 00 morning. Medical Branch HumaLOG HumaLOG 2022-0 No HumaLOG KwikPen 200 [...] UNIT/ML 00:00: 200 00 UNIT/ML NovoFine NovoFine 1-1 No 6xD NovoFine Plus Pen Plus Pen 0-01 Plus Pen Needle 32G Needle 32G 00:00: Needle 32G X 4 MM X 4 MM 00 X 4 MM guaiFENesin guaiFENesin 2020-1 No 5{ml} QID guaiFENesi [...] 100-10 MG/5ML MG/5ML 00 MG/5ML guaiFENesin guaiFENesin 2021-1 No 5{ml} QID guaiFENesi -Codeine -Codeine 0-01 n-Codeine 100-10 100-10 00:00: 100-10 MG/5ML MG/5ML 00 MG/5ML lisinopriL 2- No 5mg QD Take 1 CHI [...] tablet 00 :00 by mouth Center daily. amLODIPine Yes 5mg QD Take [address] (NORVASC) 5 4-22 by mouth Luke s MG tablet 12:18: daily. Medica l 39 Asher dorzolamide Yes 1[drp] Q.60935[address] (TRUSOPT) 2 4- [id number] (three) Lukes % 12:18: 3D times Medical ophthalmic 39 daily. Asher solution gabapentin Yes 800mg Q.[id number] Take [address] (NEURONTIN) 4- [id number] mg by L ukes 800 MG 12:18: [...] times daily with breakfast and dinner. nitroglycer Yes .4mg Place 0.4 C HI [...] Take [address] (PLAVIX) 75 -22 by mouth Luke s mg tablet 12:18: daily. Medica l 39 Center aspirin 81 Yes 81mg QD Take [address] MG EC -22 by mouth [facility]ukes tablet 12:18: daily. Medical 39 Center fluticasone Yes 1{puff} Inhale [address] propion-jaylene - puff by Lukes meteroL 12:18: mouth via Medic al (ADVAIR) 39 inhaler Center 250-50 every 12 mcg/dose (twelve) diskus hours. inhaler Lidocaine 5 Lidocaine 5 2020-0 No BID [...] every - CHI night as St directed [facility] Levemir Levemir No BID Levemir FlexTouch FlexTouch FlexTouch 100 UNIT/ML 100 UNIT/ML 100 UNIT/ML FreeStyle FreeStyle No FreeStyle Jonna 2 Jonna 2 Jonna 2 Woodman - Woodman - Woodman - Continuous Continuous No Continuous Glucose Glucose [...] FreeStyle FreeStyle No FreeStyle Jonna Jonna Jonna Woodman - Woodman - Woodman - Metoclopram Metoclopram No 1{table TID Metoclopra [...] FreeStyle Jonna 2 Jonna 2 Jonna 2 Woodman - Woodman - Woodman - Continuous Continuous No Continuous Glucose Glucose [...] MG 25 MG t_with_ 25 MG food} Magnesium Magnesium No 1{capsu QD Magnesium 400 MG 400 MG le_with 400 MG _a_meal } Aspirin 81 Aspirin 81 No 1{table QD Aspirin 81 MG MG t} MG FreeStyle FreeStyle No FreeStyle Jonna Jonna Jonna Woodman - Woodman - Woodman - Metoclopram Metoclopram No 1{table TID Metoclopra [...] FreeStyle Jonna 2 Jonna 2 Jonna 2 Woodman - Woodman - Woodman - traZODone traZODone No 1{table QD traZODone HCl 50 MG HCl 50 MG t_at_be HCl 50 MG dtime_a s_neede d} Continuous Continuous No Continuous Glucose Glucose Glucose [...] 50 MG t_as_ne HCl 50 MG eded} Pantoprazol Pantoprazol No Pantoprazo e Sodium 40 e Sodium 40 le Sodium MG MG 40 MG amLODIPine amLODIPine No 1{table [...] 75 MG 75 MG Bisulfate 75 MG Furosemide Furosemide No 1{table QD Furosemide [...] FreeStyle FreeStyle No FreeStyle Jonna Jonna Jonna Woodman - Woodman - Woodman - Metoclopram Metoclopram No 1{table TID Metoclopra [...] FreeStyle Jonna 2 Jonna 2 Jonna 2 Woodman - Woodman - Woodman - Continuous Continuous No Continuous Glucose Glucose [...] FlexTouch 100 unit/mL 100 unit/mL 100 unit/mL Nitroglycer Nitroglycer No Nitroglyce in 0.4 MG [...] 20 MG 20 MG t} 20 MG Aspirin 81 Aspirin 81 No 1{table QD Aspirin 81 MG MG t} MG Nebulizer - Nebulizer - No Nebulizer - Clopidogrel Clopidogrel No 1{table QD Clopidogre Bisulfate Bisulfate t} l 75 MG 75 MG Bisulfate 75 MG Pantoprazol Pantoprazol No Pantoprazo e Sodium 40 e Sodium 40 le Sodium MG MG 40 MG Spironolact Spironolact No Spironolac one 25 MG one 25 MG tone 25 MG Magnesium Magnesium No 1{capsu QD Magnesium 400 MG 400 MG le_with 400 MG _a_meal } Spironolact Spironolact No Spironolac one 25 MG one 25 MG tone 25 MG Carvedilol Carvedilol No 1{table BID Carvedilol 25 MG 25 MG t_with_ 25 MG food} Aspirin 81 Aspirin 81 No 1{table QD Aspirin 81 MG MG t} MG FreeStyle FreeStyle No FreeStyle Jonna Jonna Jonna Woodman - Woodman - Woodman - Metoclopram Metoclopram No 1{table TID Metoclopra [...] t_at_be HCl 50 MG dtime_a s_neede d} Lumigan Lumigan No 1{drop_ QD Lumigan 0.01 % 0.01 % into_af 0.01 % fected_ eye_in_ the_eve daron} Rosuvastati Rosuvastati No 1{table QD Rosuvastat n Calcium n Calcium t} in Calcium 40 MG 40 MG 40 MG Levemir Levemir No BID Levemir FlexTouch FlexTouch FlexTouch 100 UNIT/ML 100 UNIT/ML 100 UNIT/ML FreeStyle FreeStyle No FreeStyle Jonna 2 Jonna 2 Jonna 2 Woodman - Woodman - Woodman - Continuous Continuous No Continuous Glucose Glucose [...] } l 0.5-2.5 MG/3ML MG/3ML (3) MG/3ML metFORMIN metFORMIN No 2{table BID metFORMIN HCl 500 MG HCl 500 MG t_with_ HCl 500 MG a_meal} Combigan Combigan No Combigan 0.2-0.5 % 0.2-0.5 [...] 75 MG 75 MG Bisulfate 75 MG traZODone traZODone No traZODone HCl 50 [...] FreeStyle FreeStyle No FreeStyle Jonna Jonna Jonna Woodman - Woodman - Woodman - Mike Mckeon No 1{drop_ QD Lumigan 0.01 % 0.01 [...] FreeStyle FreeStyle No FreeStyle Jonna Jonna Jonna Woodman - Woodman - Woodman - traZODone traZODone No 1{table QD traZODone [...] FreeStyle FreeStyle No FreeStyle Jonna Jonna Jonna Woodman - Woodman - Woodman - Furosemide Furosemide No 1{table QD Furosemide [...] MG 800 MG FreeStyle FreeStyle No FreeStyle Ojnna Jonna Jonna Woodman - Woodman - Woodman - traMADol traMADol No 1{table traMADol HCl [...] FreeStyle FreeStyle No FreeStyle Jonna Jonna Jonna Woodman - Woodman - Woodman - traMADol traMADol No 1{table traMADol HCl [...] MG FreeStyle FreeStyle No FreeStyle Jonna 14 Jonan 14 Jonna 14 Day Sensor Day Sensor [...] FreeStyle FreeStyle No FreeStyle Jonna Jonna Jonna Woodman - Woodman - Woodman - Combigan Combigan No Combigan 0.2-0.5 % [...] FreeStyle Jonna 2 Jonna 2 Jonna 2 Woodman - Woodman - Woodman - traMADol traMADol No 1{table traMADol HCl [...] FreeStyle FreeStyle No FreeStyle Jonna Jonna Jonna Woodman - Woodman - Woodman - Furosemide Furosemide No 1{table QD Furosemide [...] FreeStyle Jonna 2 Jonna 2 Jonna 2 Woodman - Woodman - Woodman - Advair Advair No 1{puff} BID Advair [...] FreeStyle FreeStyle No FreeStyle Jonna Jonna Jonna Woodman - Woodman - Woodman - Nitroglycer Nitroglycer No Nitroglyce in 0.4 [...] FreeStyle FreeStyle No FreeStyle Jonna Jonna Jonna Woodman - Woodman - Woodman - Metoclopram Metoclopram No 1{table TID Metoclopra [...] FreeStyle Jonna 2 Jonna 2 Jonna 2 Woodman - Woodman - Woodman - Continuous Continuous No Continuous Glucose Glucose [...] FreeStyle FreeStyle No FreeStyle Jonna Jonna Jonna Woodman - Woodman - Woodman - Metoclopram Metoclopram No 1{table TID Metoclopra [...] Spirit OVER 65 OVER 65 11:55:00 - [facility] FLUZONE HIGH DOSE FLUZONE HIGH DOSE 2022-01-14 Completed [facility] OVER 65 OVER 65 11:55:00 [facility] FLUZONE HIGH DOSE FLUZONE HIGH DOSE 2022-01-14 Completed [facility] OVER 65 OVER 65 11:55:00 [facility] FLUZONE HIGH DOSE FLUZONE HIGH DOSE 2022-01-14 Completed [facility] OVER 65 OVER 65 11:55:00 [facility] FLUZONE HIGH DOSE FLUZONE HIGH DOSE 2022-01-14 Completed [facility] OVER 65 OVER 65 11:55:00 - [facility] FLUZONE HIGH DOSE FLUZONE HIGH DOSE 2022-01-14 Completed [facility] OVER 65 OVER 65 11:55:00 - [facility] FLUZONE HIGH DOSE FLUZONE HIGH DOSE 2022-01-14 Completed [facility] OVER 65 OVER 65 11:55:00 - [facility] FLUZONE HIGH DOSE FLUZONE HIGH DOSE 2022-01-14 Completed [facility] OVER 65 OVER 65 11:55:00 - [facility] FLUZONE HIGH DOSE FLUZONE HIGH DOSE 2022-01-14 Completed [facility] OVER 65 OVER 65 11:55:00 - [facility] FLUZONE HIGH DOSE FLUZONE HIGH DOSE 2022-01-14 Completed [facility] OVER 65 OVER 65 11:55:00 - [facility] FLUZONE HIGH DOSE FLUZONE HIGH DOSE 2022-01-14 Completed [facility] OVER 65 OVER 65 11:55:00 - [facility] FLUZONE HIGH DOSE FLUZONE HIGH DOSE 2022-01-14 Completed [facility] OVER 65 OVER 65 11:55:00 - [facility] Vital Signs Vital Name Observation Time Observation Value Comments Source HEIGHT 2020-07-03 17:00:00 154.9 cm WEIGHT 2020-07-03 17:00:00 103.556 kg Systolic blood 2022-02-23 16:44:00 114 mm[Hg] Univer sity of pressure [facility] Diastolic blood 2022-02-23 16:44:00 72 mm[Hg] Unive rsity of pressure [facility] Heart rate 2022-02-23 16:44:00 76 /min [facility] Body height 2022-02-23 16:44:00 157.5 cm [facility] Body weight 2022-02-23 16:44:00 104.327 kg [facility] BMI 2022-02-23 16:44:00 42.07 kg/m2 [facility] Oxygen saturation in 2022-02-23 16:44:00 92 /min [facility] blood by [facility] Pulse oximetry [facility] HEIGHT 2022-01-22 13:56:00 157.5 cm WEIGHT 2022-01-22 13:56:00 90.719 kg HEIGHT 2022-01-22 13:56:00 157.5 cm WEIGHT 2022-01-22 13:56:00 90.719 kg HEIGHT 2022-01-22 13:56:00 157.5 cm WEIGHT 2022-01-22 13:56:00 90.719 kg height 2022-01-14 10:20:00 62 [in_i] [facility] weight 2022-01-14 10:20:00 230.0 [lb_av] [facility] temperature 2022-01-14 10:20:00 97.3 [degF] [facility] bmi 2022-01-14 10:20:00 42.06 kg/m2 [facility] oximetry 2022-01-14 10:20:00 95 % [facility] respiratory rate 2022-01-14 10:20:00 16 /min [facility] blood pressure 2022-01-14 10:20:00 136 mm[Hg] Common [facility] - systolic [facility] blood pressure 2022-01-14 10:20:00 78 mm[Hg] [facility] - diastolic [facility] height 2021-12-10 11:40:00 62 [in_i] [facility] weight 2021-12-10 11:40:00 224 [lb_av] [facility] bmi 2021-12-10 11:40:00 40.97 kg/m2 [facility] S [facility] height 2021-09-30 12:00:00 62 [in_i] [facility] weight 2021-09-30 12:00:00 224 [lb_av] [facility] bmi 2021-09-30 12:00:00 40.97 kg/m2 [facility] height 2021-09-08 13:00:00 62 [in_i] Common S [facility] weight 2021-09-08 13:00:00 223 [lb_av] Common S [facility] temperature 2021-09-08 13:00:00 97.5 [degF] [facility] 2021-09-08 13:00:00 40.78 kg/m2 [facility] S [facility] oximetry 2021-09-08 13:00:00 96 % Common [facility] respiratory rate 2021-09-08 13:00:00 20 /min Comm on [facility] blood pressure 2021-09-08 13:00:00 150 mm[Hg] Common [facility] - systolic [facility] blood pressure 2021-09-08 13:00:00 88 mm[Hg] [facility] - diastolic [facility] height 2021-06-02 13:00:00 62 [in_i] [facility] weight 2021-06-02 13:00:00 242 [lb_av] [facility] temperature 2021-06-02 13:00:00 98.5 [degF] [facility] bmi 2021-06-02 13:00:00 44.26 kg/m2 [facility] oximetry 2021-06-02 13:00:00 91 % [facility] 2021-06-02 13:00:00 120 mm[Hg] [facility] - systolic [facility] blood pressure 2021-06-02 13:00:00 70 mm[Hg] [facility] - diastolic [facility] height 2021-06-02 13:40:00 62 [in_i] [facility] weight 2021-06-02 13:40:00 242 [lb_av] [facility] temperature 2021-06-02 13:40:00 98.5 [degF] Common S pirit [facility] bmi 2021-06-02 13:40:00 44.26 kg/m2 [facility] oximetry 2021-06-02 13:40:00 91 % [facility] S [facility] respiratory rate 2021-06-02 13:40:00 18 /min Comm on [facility] - [facility] blood pressure 2021-06-02 13:40:00 120 mm[Hg] [facility] - systolic [facility] blood pressure 2021-06-02 13:40:00 70 mm[Hg] [facility] - diastolic [facility] height 2021-03-04 11:00:00 62 [in_i] [facility] weight 2021-03-04 11:00:00 220 [lb_av] [facility] bmi 2021-03-04 11:00:00 40.23 kg/m2 [facility] S [facility] height 2020-12-19 16:40:00 62 [in_i] Common S [facility] weight 2020-12-19 16:40:00 220 [lb_av] [facility] bmi 2020-12-19 16:40:00 40.23 kg/m2 [facility] S [facility] HEIGHT 2020-07-03 17:00:00 154.9 cm WEIGHT 2020-07-03 17:00:00 103.556 kg Systolic blood 2022-01-25 16:00:00 120 mm[Hg] [facility] Diastolic blood 2022-01-25 16:00:00 56 mm[Hg] [facility] Heart rate 2022-01-25 16:00:00 76 /min [facility] Body temperature 2022-01-25 16:00:00 36.78 Leonor [facility] Respiratory rate 2022-01-25 16:00:00 18 /min [facility] Oxygen saturation in 2022-01-25 16:00:00 91 /min [facility] Arterial blood by Medical [facility]on Pulse oximetry Body height 2022-01-23 01:22:00 157.5 cm [facility] Body weight 2022-01-23 01:22:00 104.327 kg [facility] BMI 2022-01-23 01:22:00 42.07 kg/m2 [facility] Procedures Procedure Date / Time Performed Performing Clinician Jessenia dejan POCT-GLUCOSE METER 2022-01-25 12:45:00 [facility] 2022-01-25 07:38:00 Vita, [facility] CBC (HEMOGRAM ONLY) 2022-01-25 04:46:00 Vita, [facility] BASIC METABOLIC PANEL 2022-01-25 04:46:00 Vita, Joann alyx CH I [facility] MAGNESIUM 2022-01-25 04:46:00 Vita, [facility] ECG 12-LEAD 2022-01-25 01:14:58 Unknown, Hl7 [facility] ECG 12-LEAD 2022-01-25 01:14:58 Unknown, 7 [facility] ECG 12-LEAD 2022-01-25 01:14:58 Unknown, 7 [facility] ECG 12-LEAD 2022-01-25 01:14:09 Unknown, 7 [facility] ECG 12-LEAD 2022-01-25 01:14:09 Unknown, 7 [facility] ECG 12-LEAD 2022-01-25 01:14:09 Unknown, 7 [facility] ECG 12-LEAD 2022-01-25 01:09:07 Unknown, 7 [facility] ECG 12-LEAD 2022-01-25 01:09:07 Unknown, 7 [facility] POCT-GLUCOSE METER 2022-01-24 22:02:00 [facility] 2022-01-24 16:38:00 [facility] ECHO W/ DOPPLER 2022-01-24 12:58:06 Alison Pope [facility] (CW/PW/COLOR) [facility] POCT-GLUCOSE METER 2022-01-24 12:36:00 Vita, [facility] POCT-GLUCOSE METER 2022-01-24 08:08:00 Vita, [facility] CBC (HEMOGRAM ONLY) 2022-01-24 04:40:00 Vita, [facility] BASIC METABOLIC PANEL 2022-01-24 04:40:00 [facility] 2022-01-24 04:40:00 [facility] 2022-01-23 21:53:00 Vita, [facility] POCT-GLUCOSE METER 2022-01-23 17:16:00 Vita, [facility] XR CHEST 1 VIEW PORTABLE 2022-01-23 15:02:00 [facility] B-TYPE NATRIURETIC FACTOR 2022-01-23 13:57:00 [facility] ([facility] VENOUS DOPPLER LEG, RIGHT 2022-01-23 12:00:00 Vita, Joann Yunielmary lou pastrana [facility] POCT-GLUCOSE METER 2022-01-23 11:55:00 [facility]ER 2022-01-23 08:42:00 Vita, [facility] MRA HEAD WITHOUT IV 2022-01-23 08:18:00 Vita, [facility] CONTRAST [facility] MRA NECK WITHOUT IV 2022-01-23 08:18:00 Vita, [facility] CONTRAST [facility] MR BRAIN WITHOUT IV 2022-01-23 08:18:00 Vita, Joann Anna [facility] POCT-GLUCOSE METER 2022-01-23 06:25:00 Vita, Joann Anna [facility] HEMOGLOBIN A1C 2022-01-23 05:59:00 Vita, Joann Hyunna [facility] CBC (HEMOGRAM ONLY) 2022-01-23 05:59:00 Vita, Joann Hyunna [facility] BASIC METABOLIC PANEL 2022-01-23 05:59:00 Vita, Joann Anna I [facility] MAGNESIUM 2022-01-23 05:59:00 Vita, Joann Anna [facility] VITAMIN B12 2022-01-23 05:59:00 Vita, Joann Anna [facility] RPR 2022-01-23 05:59:00 Vita, Joann Hymary loua [facility] HC LAB HIV-1 AG W/HIV-1&2 2022-01-23 05:59:00 Vita, Joann Ann a [facility] LIPID PANEL 2022-01-23 05:59:00 Alison Pope [facility] SODIUM, RANDOM URINE 2022-01-23 01:28:00 Vita, Joann mary loua [facility] CREATININE, RANDOM URINE 2022-01-23 01:28:00 [facility] UREA NITROGEN, RANDOM 2022-01-23 01:28:00 Vita, Joann Anna I [facility] URINE [facility] POCT-GLUCOSE METER 2022-01-22 23:10:00 Vita, Joann Anna [facility] US RENAL COMPLETE 2022-01-22 21:35:00 Vita, Joannrosa elena Briceunna [facility] SARS-COV2/RT-PCR ([facility] & 2022-01-22 19:22:00 Vita, Joann Anna [facility] REF [facility] URINE CULTURE 2022-01-22 14:57:00 Harvey Jackman [facility] CBC W/PLT COUNT & AUTO 2022-01-22 14:57:00 Harvey Jackman CH I [facility] COMPREHENSIVE METABOLIC 2022-01-22 14:57:00 Harvey Jackman HI [facility] URINALYSIS W/ REFLEX 2022-01-22 14:57:00 Harvey Jackman [facility] URINE CULTURE [facility] MAGNESIUM 2022-01-22 14:57:00 Harvey Jackman [facility] CBC W/PLT COUNT & AUTO 2022-01-22 14:57:00 GasperHarvey grant CH I [facility] CTA BRAIN 2022-01-22 14:19:00 [facility] CTA CAROTID 2022-01-22 14:19:[address] [facility] [address] BRAIN CEREBRAL 2022-01-22 14:19:00 [facility] PERFUSION ANALYSIS Medical Cent[facility] r [facility] BRAIN/STROKE TEST 2022-01-22 13:42:00 Harvey Jackman [facility] Plan of Care Planned Activity [...] Cessation Counseling and Screening (12+)] Future Scheduled 2022-03-[address] [facility] Test 00:00:00 (12+) [code = Medical Center DEPRESSION SCREENING (12+)] Future Scheduled 2022-03-21 FALLS RISK SCREENING [facility] Test 00:00:00 [code = FALLS RISK Medical C enter SCREENING] Future Scheduled 2021-11-19 INFLUENZA VACCINE (#1) C [...] 00:00:00 measurement Medical Center (procedure) [code = 89236704] Future Scheduled 2020-10-[address] [facility] (procedure) [code = 57727726] Future Scheduled 2020-10-[address] [facility] 00[facility]00 measurement [facility] (procedure) [code = 34457989] Future Scheduled 2020-10-[address] [facility] 00[facility]00 measurement [facility] (procedure) [code = 83178362] Future Scheduled 2020-10-[address] [facility] 00[facility]00 measurement Medical Center (procedure) [code = 94175047] Future Scheduled 1991-12-12 SHINGLES VACCINES (1 [facility] [...] 00:00:00 examination Medical Center (regime/therapy) [code = 164210003] Future Scheduled 1951-12-12 Urine screening for [facility] Test 00:00:00 protein (procedure) Medical Center [code = 722173331] Future Scheduled 1951-12-[address] EYE EXAM [facility] Test 00:00:00 [code = DIABETIC EYE Medical Center EXAM] Future Scheduled 1951-12-[address] [facility] 00:[facility] examination Medical Center (regime/therapy) [code = 970627551] Future Scheduled 1951-12-12 Urine screening for [facility] Test 00:00:00 protein (procedure) Medical Center [code = 234410785] Future Scheduled 1951-12-[address] DIABETIC EYE EXAM [facility] Test 00:00:00 [code = DIABETIC EYE Medical Center EXAM] Future Scheduled 1951-12-[address] [facility] 00:00:00 examination Medical Center (regime/therapy) [code = 482128855] Future Scheduled 1951-12-12 Urine screening for [facility] Test 00:00:00 protein (procedure) Medical Center [code = 031399138] Future Scheduled 1951-12-[address] DIABETIC EYE EXAM [facility] Test 00:00:00 [code = DIABETIC EYE Medical Center EXAM] Future Scheduled 1951-12-[address] [facility] 00:00:00 examination Medical Center (regime/therapy) [code = 313593419] Future Scheduled 1951-12-12 Urine screening for [facility] Test 00:00:00 protein (procedure) Medical Center [code = 530397874] Future Scheduled 1951-12-12 DIABETIC EYE EXAM [facility] Test 00:00:00 [code = DIABETIC EYE Medical Center EXAM] Future Scheduled 1951-12-[address] [facility] 00:00:00 examination Medical Center (regime/therapy) [code = 040291827] Future Scheduled 1951-12-12 Urine screening for [facility] Test 00:00:00 protein (procedure) Medical Center [code = 094160018] Future Scheduled 1947-12-12 PNEUMOCOCCAL 65+ YRS [facility] Test 00:00:00 [code = COVID-[address] VACCINE (#1)] Future Scheduled 1942-06-10 COVID-19 [...] DXA [facility] Test 00:00:00 SCAN] Medical Center Future Scheduled 1941 DXA SCAN [code = DXA [facility] Test 00:00:00 SCAN] Medical Center Future Scheduled 1941 DXA SCAN [code = DXA [facility] Test 00:00:00 SCAN] [facility] Future Scheduled 1941 DXA SCAN [code = DXA [facility] Test 00:00:00 SCAN] [facility] Future Scheduled 1941 DXA SCAN [code = DXA [facility] Test 00:00:00 SCAN] Medical Center Encounters Start End Encounter Admission Attending Care Care Encounter Source Date/Time Date/Time Type Type Clinicians Facility Department ID 2022-04-06 Outpatient SLAUGHTER, Na STLMLC STLMLC [id number] 2 Common 11:59:00 [id number] [facility] 2022-03-30 Outpatient SLAUGHTER, Na STLMLC STLMLC [id number] 2 Common 09:39:01 [id number] [facility] 2022-03-23 Outpatient SLAUGHTER, Na STLMLC STLMLC [id number] 2 Common 13:35:01 [id number] [facility] 2022-03-17 Outpatient Slaughter, Na STLMLC STLMLC [id number] 2 Common 09:54:02 [facility] 2022-03-01 Outpatient Slaughter, Na STLMLC STLMLC [id number] 2 Common 09:54:02 [facility] 2022-02-15 Outpatient Slaughter, Na STLMLC STLMLC [id number] 2 Common 16:33:01 [id number] [facility] 2022-01-22 [facility] [id number] 00[facility]00 Encounter [facility] 2022-01-22 [facility] [id number] 00:00:00 Encounter [facility] 2022-01-12 Outpatient Slaughter, Na STLMLC STLMLC [id number] 2 Common 14:58:01 [facility] 2021-12-08 Outpatient Slaughter, Na STLMLC STLMLC [id number] 2 Common 10:45:00 [facility] 2021-09-29 Outpatient Slaughter, Na STLMLC STLMLC [id number] 2 Common 11:51:00 [facility] 2021-09-28 Outpatient Slaughter, Na STLMLC STLMLC [id number] 2 Common 10:30:01 [facility] 2021-09-04 Outpatient Slaughter, Na STLMLC STLMLC [id number] 2 Common 13:45:00 [facility] 2021-06-02 Outpatient Slaughter, Na STLMLC STLMLC [id number] 2 Common 13:14:01 [facility] 2021-06-01 Outpatient Slaughter, Na STLMLC STLMLC [id number] 2 Common 14:17:00 [facility] 2021-05-29 Outpatient Slaughter, Na STLMLC STLMLC [id number] 2 Common 09:59:01 [facility] 2021-05-06 Outpatient Slaughter, Na STLMLC STLMLC [id number] 2 Common 16:04:00 [facility] 2021-04-15 Outpatient Slaughter, Na STLMLC STLMLC [id number] 2 Common 14:24:29 [id number] [facility] 2021-04-15 Outpatient Slaughter, Na STLMLC STLMLC [id number] 2 Common 14:24:14 [id number] [facility] 2021-04-15 Outpatient Slaughter, Na STLMLC STLMLC [id number] 2 Common 14:19:03 [id number] [facility] 2021-04-15 Outpatient Slaughter, Na STLMLC STLMLC [id number] 2 Common 14:06:54 [id number] [facility] 2021-04-15 Outpatient Slaughter, Na STLMLC STLMLC [id number] 2 Common 13:02:26 [id number] [facility] 2021-04-15 Outpatient Slaughter, Na STLMLC STLMLC [id number] 2 Common 13:01:50 [id number] [facility] 2021-04-15 Outpatient Slaughter, Na STLMLC STLMLC [id number] 2 Common 13:01:22 [id number] [facility] 2021-04-15 Outpatient Slaughter, Na STLMLC STLMLC [id number] 2 Common 12:57:37 [id number] [facility] 2021-04-15 Outpatient Slaughter, Na STLMLC STLMLC [id number] 2 Common 12:33:49 97623 [facility] 2021-04-15 Outpatient Slaughter, Na STLMLC STLMLC [id number] 2 Common 12:32:45 [id number] [facility] 2021-04-15 Outpatient Slaughter, Na STLMLC STLMLC [id number] 2 Common 12:31:08 [id number] [facility] 2021-04-15 Outpatient Slaughter, Na STLMLC STLMLC [id number] 2 Common 12:26:24 [id number] [facility] 2021-04-15 Outpatient Slaughter, Na STLMLC STLMLC [id number] 2 Common 12:26:03 [id number] [facility] 2021-04-15 Outpatient Slaughter, Na STLMLC STLMLC [id number] 2 Common 12:24:50 [id number] [facility] 2021-04-15 Outpatient Slaughter, Na STLMLC STLMLC [id number] 2 Common 11:59:32 05890 [facility] 2021-04-15 Outpatient Slaughter, Na STLMLC STLMLC [id number] 2 Common 11:26:16 [id number] [facility] 2021-04-15 Outpatient Slaughter, Na STLMLC STLMLC [id number] 2 Common 11:19:17 [id number] [facility] 2021-04-15 Outpatient Slaughter, Na STLMLC STLMLC [id number] 2 Common 11:18:55 [id number] [facility] 2020-07-03 Inpatient ER BONG, [facility] [id number] [facility] 16:58:00 ASTRID 2022-04-22 2022-04-22 Outpatient MARIO HENNING [facility] 10 [id number] [facility] 10:30:00 10:30:00 MARIO PLATA i [facility] 2022-04-13 2022-04-13 Outpatient Daniel_T VFP VFP [id number] [facility] 00:00:00 00:00:00 [id number] [facility] 2022-04-06 2022-04-06 Outpatient Enoc_T VFP VFP [id number] [facility] 00:00:00 00:00:00 [id number] Family Practic e 2022-03-25 2022-03-25 (TEL) STLMLC STLMLC [id number] [facility] 00:00:00 00:00:00 [facility] 2022-03-23 2022-03-23 (TEL) STLC STLMLC [id number] Co [facility] 00:00:00 00:00:00 [facility] 2022-03-16 2022-03-16 (TEL) STLC STLMLC [id number] Co mmon 00:00:00 00:00:00 [facility] 2022-03-16 2022-03-16 [facility] [id number] Co mmon 00:00:00 00:00:00 [facility] 2022-03-12 2022-03-12 [facility] [id number] [facility] 00:00:00 00:00:00 Mario PAEZ 350.1.13.10 i ty [facility] 4.2.7.2.686 [facility] [phone] [address] 2022-03-04 2022-03-04 (TEL) STLC STLC [id number] Co mmon 00:00:00 00:00:00 [facility] 2022-02-25 2022-02-25 Employment Programs Analyst Lakshmi Angela [facility] [id number] [facility] 12:00:00 12:15:00 Visit Senthil Schmidt 350.1.13. 10 ity [facility] 4.2.7.2.686 [facility] [phone] [address] 2022-02-25 2022-02-25 Outpatient R SENTHIL SCHMIDT [facility] [id number] [facility] 12:00:00 12:00:00 SENTHIL SCHMIDT ity [facility] 2022-02-23 2022-02-23 Office Luli [facility] [id number] [facility] 10:30:00 11:00:00 Visit Mario PAEZ 350.1.13.10 i ty [facility] 4.2.7.2.686 Jennifer CHRISTOPHER [id number] [place] [id number] [facility] 2022-02-23 2022-02-23 Outpatient R MARIO PLATA [facility] [id number] [facility] 10:30:00 10:30:00 MARIO PLATA i ty of [facility] 2022-02-16 2022-02-16 OFFICE STLMLC STLMLC [id number] Co mmon 00:00:00 00:00:00 VISIT Spirit ESTAB PT - CHI LEVEL 4 [facility] 2022-02-09 2022-02-09 (TEL) STLMLC STLMLC [id number] Co mmon 00:00:00 00:00:00 [facility] 2022-02-05 2022-02-05 (TEL) STLMLC STLMLC [id number] Co mmon 00:00:00 00:00:00 [facility] 2022-02-02 2022-02-02 (TEL) STLMLC STLMLC [id number] Co mmon 00:00:00 00:00:00 [facility] 2022-02-01 2022-02-01 OFFICE STLMLC STLMLC [id number] Co mmon 00:00:00 00:00:00 VISIT EST Spir it PT LEVEL 3 - CH[facility] 2022-01-26 2022-01-26 (TEL) STLMLC STLMLC [id number] Co mmon 00:00:00 00:00:00 [facility] 2022-01-25 2022-01-25 Outpatient [facility] [id number] [facility] 00:00:00 23:59:00 Arik 2022-01-22 2022-01-25 Inpatient ER IVTA, SLE Emergency [id number] [facility] 13:28:00 17:48:00 JOANN 2022-01-22 2022-01-25 Hospital Harvey Jackman [facility] [id number] 13:28:00 17:48:00 Encounter [facility] 2022-01-22 2022-01-25 [facility] Harvey Jackman [facility] [id number] 13:28:00 17:48:00 Encounter [facility] 2022-01-25 2022-01-25 Orders [facility] [id number] 00:00:00 00:00:00 [facility] 2022-01-25 2022-01-25 Orders [facility] [id number] 00:00:00 00:00:00 [facility] 2022-01-22 2022-01-22 Travel [facility] [id number] [facility] 00:00:00 [facility] 2022-01-22 2022-01-22 Travel [facility] [id number] [facility] 00:[facility] 00:00:00 [facility] 2022-01-14 2022-01-14 OFFICE STLMLC STLMLC [id number] Co mmon 00:00:00 00:00:00 VISIT [facility] PT - CHI LEVEL 4 [facility] 2022-01-11 2022-01-11 (TEL) STLMLC STLMLC [id number] Co mmon 00:00:00 00:00:00 [facility] 2022-01-08 2022-01-08 (TEL) STLMLC STLMLC [id number] Co mmon 00:00:00 00:00:00 [facility] 2021-12-14 2021-12-14 (TEL) STLMLC STLMLC [id number] Co mmon 00:00:00 00:00:00 [facility] 2021-12-10 2021-12-10 OFFICE STLMLC STLMLC [id number] Co mmon 00:00:00 00:00:00 VISIT [facility] PT - CHI LEVEL 4 [facility] 2021-12-04 2021-12-04 (TEL) STLMLC STLMLC [id number] Co mmon 00:00:00 00:00:00 [facility] 2021-10-29 2021-10-29 (TEL) STLMLC STLMLC [id number] Co mmon 00:00:00 00:00:00 [facility] 2021-09-30 2021-09-30 OFFICE STLMLC STLMLC [id number] Co mmon 00:00:00 00:00:00 VISIT EST Spir it PT LEVEL 3 - [facility] 2021-09-24 2021-09-24 (TEL) STLMLC STLMLC [id number] Co mmon 00:00:00 00:00:00 [facility] 2021-09-14 2021-09-14 (TEL) STLMLC STLMLC [id number] Co mmon 00:00:00 00:00:00 [facility] 2021-09-08 2021-09-08 OFFICE STLMLC STLMLC [id number] Co mmon 00:00:00 00:00:00 VISIT [facility] PT - CHI LEVEL 4 [facility] 2021-06-23 2021-06-23 (TEL) STLMLC STLMLC [id number] Co mmon 00:00:00 00:00:00 [facility] 2021-06-02 2021-06-02 SUB ANNUAL STLMLC STLMLC [id number] Common 00:00:00 00:00:[address] [facility] VISIT [facility] 2021-06-02 2021-06-02 OFFICE STLMLC STLMLC [id number] Co mmon 00:00:00 00:00:00 VISIT EST Spir it PT LEVEL 3 - [facility] 2021-04-23 2021-04-23 (TEL) STLMLC STLMLC [id number] Co mmon 00:00:00 00:00:00 [facility] 2021-03-04 2021-03-04 OFFICE STLMLC STLMLC [id number] Co mmon 00:00:00 00:00:00 VISIT [facility] PT - CHI LEVEL 4 [facility] 2020-12-19 2020-12-19 OFFICE STLMLC STLMLC [id number] Co mmon 00:00:00 00:00:[address] 2020-12-09 2020-12-09 Outpatient STLMLC STLMLC [id number] Common 00:00:00 00:00:00 [facility] 2020-09-26 2020-09-26 Outpatient STLMLC STLMLC [id number] Common 00:00:00 00:00:00 [facility] 2020-09-25 2020-09-25 Outpatient STLMLC STLMLC [id number] Common 00:00:00 00:00:00 [facility] 2020-09-08 2020-09-08 Outpatient STLMLC STLMLC [id number] Common 00:00:00 00:00:00 [facility] 2020-08-27 2020-08-27 Outpatient STLMLC STLMLC [id number] Common 00:00:00 00:00:00 [facility] 2020-08-19 2020-08-19 Outpatient Miller_S_AH VFP VFP [id number] [place] 05:09:00 05:09:00 [id number] [facility] 2020-07-30 2020-07-30 Outpatient STLMLC STLMLC [id number] Common 00:00:00 00:00:00 [facility] 2020-07-17 2020-07-17 Outpatient STLMLC STLMLC [id number] Common 00:00:00 00:00:00 [facility] 2020-07-16 2020-07-16 Outpatient Curly-Mbayo VFP VFP [id number] [place] 02:54:00 02:54:00 _A_AH [id number] Family Practic e 2020-07-16 2020-07-16 Outpatient Curly-Mbayo VFP VFP [id number] [place] 02:54:00 02:54:00 _A_AH 61179 Family Practic e 2020-05-21 2020-05-21 Outpatient STLMLC STLMLC [id number] Common 00:00:00 00:00:00 [facility] 2020-05-20 2020-05-20 Outpatient STLMLC STLMLC [id number] Common 00:00:00 00:00:00 [facility] 2020-05-12 2020-05-12 Outpatient STLMLC STLMLC [id number] Common 00:00:00 00:00:00 [facility] 2020-04-30 2020-04-30 Outpatient STLMLC STLMLC [id number] Common 00:00:00 00:00:00 [facility] 2020-04-18 2020-04-18 Outpatient STLMLC STLMLC [id number] Common 00:00:00 00:00:00 [facility] 2020-02-06 2020-02-06 Outpatient STLMLC STLMLC [id number] Common 00:00:00 00:00:00 [facility] 2020-01-16 2020-01-16 Outpatient STLMLC STLMLC [id number] Common 00:00:00 00:00:00 [facility] 2020-01-15 2020-01-15 Outpatient STLMLC STLMLC [id number] Common 00:00:00 00:00:00 [facility] 2019-12-17 2019-12-17 Outpatient STLMLC STLMLC [id number] Common 00:00:00 00:00:00 [facility] 2019-11-21 2019-11-21 [facility] [id number] Common 15:40:00 15:40:[address] [facility] 2019-10-22 2019-10-22 [facility] [id number] Common 10:38:00 10:38:[address] [facility] 2019-10-02 2019-10-02 [facility] [id number] Common 11:02:00 11:02:[address] [facility] 2019-09-26 2019-09-26 Out[facility] [id number] Common 14:15:00 14:15:[address] [facility] 2019-09-20 2019-09-20 Out[facility] [id number] Common 16:10:00 16:10:[address] [facility] 2019-09-13 2019-09-13 Out[facility] [id number] Common 15:19:00 15:19:[address] [facility] 2019-09-06 2019-09-06 Out[facility] [id number] Common 16:13:00 16:13:[address] [facility] 2019-09-04 2019-09-04 Outpatient [facility] [id number] Common 11:20:00 11:20:[address] [facility] 2019-08-28 2019-08-28 Out[facility] [id number] Common 09:58:00 09:58:[address] [facility] [address] [facility] 2019-08-07 2019-08-07 Out[facility] [id number] Common 09:40:00 09:40:[address] [facility] 2019-07-24 2019-07-24 Outpatient [facility] [id number] Common 16:54:00 16:54:[address] [facility] 2019-07-17 2019-07-17 Out[facility] [id number] Common 16:20:00 16:20:[address] [facility] 2019-07-13 2019-07-13 Outpatient [facility] [id number] Common 09:00:00 09:00:[address] [facility] 2019-05-09 2019-05-09 [id number] [facility] 07:15:00 07:15:00 _A_AH 21761 Family Practic e 2019-05-09 2019-05-09 Outpatient Curly-Tashao VFP VFP [id number] [facility] 07:15:00 07:15:00 _A_AH 31710 Family Practic e 2019-05-09 2019-05-09 Outpatient Curly-Tashao VFP VFP [id number] [facility]202 [facility] 07:15:00 07:15:00 _A_AH 07423 Family Practic e Results Test Description Test Time Test Comments Results Result Comments Source RPR 2022-01-25 14:38:51 Test Item Value Reference Range Interpretation Comme nts R SCREEN (BEAKER) (test code = 420) Nonreactive Nonreactive POC-Glucose [id number] 12:58:04 Test Item Value Reference Range Interpretation Comments POC-Glucose Meter (test 154 mg/dL 70-110 H : TE STED AT [facility] code = 1538) [address] [place] [address], 770 30: Medical Staff Physician/Techni daisy ID = [id number] for ERWIN QIAN [place] Lab Interpretation (test Abnormal code = 54872-7) [facility]-Glucose [id number] 12:58:04 Test Item Value Reference Range Interpretation Comments POC-Glucose Meter (test 154 mg/dL 70-110 H : TE STED AT [facility] code = 1538) [address] [place] [address], 770 30: Medical Staff Physician/Techni daisy ID = [id number] for ERWIN QIAN IA Lab Interpretation (test Abnormal code = 51816-9) [facility]-Glucose [id number] 12:58:04 Test Item Value Reference Range Interpretation Comments POC-Glucose Meter (test 154 mg/dL 70-110 H : TE STED AT [facility] code = 1538) [address] [place] [address], 770 30: Medical Staff Physician/Techni daisy ID = [id number] for ERWIN QIAN IA Lab Interpretation (test Abnormal code = 61453-6) [facility]-Glucose [id number] 12:58:04 Test Item Value Reference Range Interpretation Comments POC-Glucose Meter (test 154 mg/dL 70-110 H : TE STED AT [facility] code = 1538) [address] [place] [address], 770 30: Medical Staff Physician/Techni daisy ID = [id number] for QIAN HOOD Lab Interpretation (test Abnormal code = 65953-4) [facility] [id number] 12:58:04 Test Item Value Reference Range Interpretation Comments POC-GLUCOSE METER 154 mg/dL 70-110 H : TESTED A T [facility] 6720 (BEAKER) (test code = MAMTA Seth [place], 1538) [address]: Medical Staff Physician/Techni daisy ID = [id number] for LIVIER GUIDRY POCT-GLUCOSE [id number] 07:53:47 Test Item Value Reference Range Interpretation Comments POC-GLUCOSE METER 132 mg/dL 70-110 H : TESTED A T [facility] 6720 (BEAKER) (test code = SIDRANM Rolo [facility], 1538) 53962: Medical Staff Physician/Techni daisy ID = [id number] for LIVIER GUIDRY BASIC METABOLIC [id number] 06:28:27 Test Item Value Reference Range Interpretation [...] eGFR (test code = mL/min/1.73 values Stage D escription 1092) sq m Result G1 Wendy l or high >=90 G2 Mildly decreased 60-89 G3a Mildl y to moderately 45-5 9 G3b Moderately to s everely 30-44 G4 Severl y decreased 15-29 G5 Kidney failure <15Reported eGF R is based on the CKD-EPI 202 equation that d oes not use a race coefficientEsti mated GFR is not as accur ate as Creatinine Malika hernández in predicting glom erular filtration rate . Estimated GFR is not appl icable for dialysis patien ts Medical Staff Physician ID - LAYTON [id number] 06:28:27 Test Item Value Reference Range Interpretation Comments MAGNESIUM (BEAKER) (test code = 1.9 mg/dL 1.6-2.6 627) Medical Staff Physician ID - LAYTON LCBC (HEMOGRAM ONLY)2022-01-25 05:24:35 [...] 0-0 (BEAKER) (test code = 413) POCT-GLUCOSE [id number] 22:37:28 Test Item Value Reference Range Interpretation Comments POC-GLUCOSE METER 211 mg/dL 70-110 H : TESTED A T [facility] 6720 (BEAKER) (test code = [place], 1538) [address]: Medical Staff Physician/Techni daisy ID = [id number] for CA MFIELD, CRYSTAL 2D Echo W/Doppler(CW/PW/Color)2022-01-24 17:35:48Ejection FractionSLEH ECHO HEARTLAB [facility]Do[facility](CW/PW/Color)2022-01-24 17:35:48Ejection FractionSLEH [facility]CHO [facility] W/Doppler(CW/PW/Color) 2022-01-24 17:35:48Ejection FractionSLEH ECHO HEARTLAB [facility] W/Doppler(CW/PW/Color)2022-01-24 17:35:48Ejection FractionSLEH ECHO HEARTLAB [facility] [id number] 16:50:38 Test Item Value Reference Range Interpretation Comments POC-GLUCOSE METER 289 mg/dL 70-110 H : TESTED A T [facility] 6720 (BEAKER) (test code = [facility], 1538) 17686: Medical Staff Physician/Techni daisy ID = [id number] for An derson, Radha POCT-GLUCOSE [id number] 12:48:56 Test Item Value Reference Range Interpretation Comments POC-GLUCOSE METER 297 mg/dL 70-110 H : TESTED A T [facility] 6720 (BEAKER) (test code = [facility], 1538) 55523: Medical Staff Physician/Techni daisy ID = [id number] for An derson, Radha POCT-GLUCOSE [id number] 08:20:48 Test Item Value Reference Range Interpretation Comments POC-GLUCOSE METER 294 mg/dL 70-110 H : TESTED A T [facility] 6720 (BEAKER) (test code = [facility], 1538) 56791: Medical Staff Physician/Techni daisy ID = [id number] for An derson, Radha POCT-GLUCOSE [id number] 07:53:11 Test Item Value Reference Range Interpretation Comments POC-GLUCOSE METER 347 mg/dL 70-110 H : TESTED A T [facility] 6720 (BEAKER) (test code = [facility], 1538) 41946: Medical Staff Physician/Techni daisy ID = [id number] for Ra mos, May Venous doppler leg, [id number] 06:50:36Ejection FractionSLEH ECHO HEARTLAB MKCKESSON [facility], [id number] 06:50:36Ejection FractionSLEH ECHO HEARTLAB [facility], [id number] 06:50:36Ejection FractionSLEH ECHO HEARTLAB [facility], right 2022-01-24 06:50:36Ejection FractionSLEH ECHO HEARTLAB [facility]2022-11-06 05:32:04 Test Item Value Reference Range Interpretation Comments MAGNESIUM (BEAKER) (test code = 2.0 mg/dL 1.6-2.6 627) Medical Staff Physician MARY BAI WBASIC METABOLIC [id number] 05:32:03 Test Item Value Reference Range Interpretation [...] not appl icable for dialysis patien ts Medical Staff Physician ID - BHUMIKA WCBC (HEMOGRAM ONLY)2022-01-24 04:47:08 [...] 0-0 (BEAKER) (test code = 413) POCT-GLUCOSE [id number] 17:28:54 Test Item Value Reference Range Interpretation Comments POC-GLUCOSE METER 334 mg/dL 70-110 H : TESTED A T [facility] 6720 (BEAKER) (test code = [place], 1538) [address]: Medical Staff Physician/Techni daisy ID = [id number] for Wi lson, [employer] RAD, CHEST, 1 VIEW, NON [id number] 15:32:00Reason for exam:->evaluate for edema, effusions, currently on N8Ugvaop this [facility]?->YesCH[facility] : 1940 Sex: FFINALREPORT [...] Reference Range Interpretation Comments B-TYPE NATRIURETIC PEPTIDE (MASTER) 130 pg/mL 0-100 H (test code = 700) Medical Staff Physician ID - ADMINPOCT-GLUCOSE [id number] 12:07:10 Test Item Value Reference Range Interpretation Comments POC-GLUCOSE METER 260 mg/dL 70-110 H : TESTED A T [facility] 6720 (TweetMemeRAULITO) (test code = [place]RACH[place], 1538) [address]: Medical Staff Physician/Techni daisy ID = [id number] for Lamberto Puente HIV-1 ANTIGEN WITH HIV-1/2 [id number] 11:29:35 Test Item Value Reference Range Interpretation Comments HIV-1 ANTIGEN WITH HIV 1\\T\\2 Nonreactive Nonreactive ANTIBODY (2) ([employer]) (test code = 2586) Medical Staff Physician ID - ADMINHEMOGLOBIN [id number] 10:24:05 Test Item Value Reference Range Interpretation Comments HEMOGLOBIN A1C 10.4 % See_Comment H [Automated m essage] ELECTROPHORESIS ([facility]) The system which (test code = 3811) generated this result transmitted ref erence range: <=5.6%. The reference range was not used to int erpret this result as normal/abnormal . "The A1c is measured using a NGSP-certified method. HbA1c value equal to or greater than 6.5% as thediagnosis cutoff for diabetes. An HbA1c value of 5.7- 6.4% indicates increased risk for diabetes (prediabetes)."Medical Staff Physician ID - ADMPOCT- GLUCOSE [id number] 09:48:11 Test Item Value Reference Range Interpretation Comments POC-GLUCOSE METER 370 mg/dL 70-110 H : TESTED A T [facility] 6720 ([facility]) (test code = SIDRACHAD Seth [facility], 1538) [address]10: Medical Staff Physician/Techni daisy ID = [id number] for Lamberto Puente POCT-GLUCOSE [id number] 09:48:10 Test Item Value Reference Range Interpretation Comments POC-GLUCOSE METER 335 mg/dL 70-110 H : Notified RN/MD: ([facility]) (test code = TESTED AT [facility] 6720 1538) [facility], [address]: Medical Staff Physician/Techni daisy ID = [id number] for Pamela Marks LIPID [id number] 08:46:58 Test Item Value Reference Range Interpretation Comments TRIGLYCERIDES ([employer]) 316 mg/dL Speci men slightly (test code = 540) hemolyzed CHOLESTEROL ([employer]) 80 mg/dL Specime n slightly (test code = 631) hemolyzed HDL CHOLESTEROL ([employer]) 16 mg/dL (test code = 976) LDL CHOLESTEROL 1 mg/dL CALCULATED ([facility]) (test code = 633) Triglyceride Reference Range: Low Risk <150 Borderline 150-199 High Risk 200-499 Very High Risk >=500Cholesterol Reference Range: Low Risk <200 Borderline 200-239 High Risk >240HDL Cholesterol Reference Range: Low Risk >=60 High Risk <40LDL Cholesterol Reference Range: Optimal <100 Near Optimal 100-129 Borderline 130-159 High 160-189 Very High >=190 Medical Staff Physician ID - SARA WMR, MRA, BRAIN, WITHOUT [id number] 08:25:00Reason for exam:- >Ischemic Stroke Evaluation, dysarthria [facility] : 1940 Sex: FFINALREPORT [...] arteries: Normal flow-related enhancement within the bilateral JUNIOR MEDIA BUYER P1- P2 segments Additional findings: None. MRA NECK:Common carotid arteries: Unremarkable. Bifurcations: No flow-limiting stenosis. Cervical internal carotid arteries: No flow limiting stenosis.Vertebral arteries: Origins are not well- seen. No flow limiting stenosis within the visualized cervical vertebral arterial segments. Limited assessment of the V3 segment secondary to noncontrast technique. IMPRESSION: No proximal vessel occlusion within the head or neck. Signed: Siena Shaver MDReport Verified Date/Time: 01/23/2022 08:25:45 MR, MRA, NECK, WITHOUT IV [id number] 08:25:00Reason for exam:->Ischemic Stroke EvaluationD[facility] : 1940 Sex: FFINALREPORT [...] arteries: Normal flow-related enhancement within the bilateral JUNIOR MEDIA BUYER P1- P2 segments Additional findings: None. MRA NECK:Common carotid arteries: Unremarkable. Bifurcations: No flow-limiting stenosis. Cervical internal carotid arteries: No flow limiting stenosis.Vertebral arteries: Origins are not well- seen. No flow limiting stenosis within the visualized cervical vertebral arterial segments. Limited assessment of the V3 segment secondary to noncontrast technique. IMPRESSION: No proximal vessel occlusion within the head or neck. Signed: Seina Shaver MDReport Verified Date/Time: 01/23/2022 08:25:45 MR, BRAIN, WITHOUT [id number] 08:20:00Reason for exam:->Ischemic Stroke EvaluationD[facility] : 1940 Sex: [...] IMPRESSION: No acute intracranial findings Signed: Siena Shaver MDReport Verified Date/Time: 01/23/2022 08:20:35 VITAMIN [id number] 07:14:04 Test Item Value Reference Range Interpretation Comments VITAMIN B12 (BEAKER) (test code = 909 pg/mL 213-816 H 774) Medical Staff Physician ID - BHUMIKA [id number] 07:02:19 Test Item Value Reference Range Interpretation Comments MAGNESIUM (BEAKER) 2.1 mg/dL 1.6-2.6 Specimen slightly (test code = 627) hemolyzed Medical Staff Physician ID - BHUMIKA WBASIC METABOLIC [id number] 07:02:19 Test Item Value Reference Range Interpretation [...] not appl icable for dialysis patien ts Medical Staff Physician MARY BAI WCBC (HEMOGRAM ONLY)2022-01-23 06:11:42 Test [...] (BEAKER) (test code = 413) Sodium, random [id number] 03:04:34 Test Item Value Reference Range Interpretation Comments Sodium Urine (test 81 meq/L code = 2955-3) TORO (test code = Reference Range: No TORO) NormalsOperator ID - [facility] random [id number] 03:04:34 Test Item Value Reference Range Interpretation Comments Urea Nitrogen, Ur 325 mg/dL (test code = 3095-7) TORO (test code = Reference Range: No TORO) NormalsOperator [facility] [id number] 03:04:34 Test Item Value Reference Range Interpretation Comments Sodium Urine (test 81 meq/L code = 2955-3) TORO (test code = Reference Range: No TORO) NormalsOperator ID - [facility] N[facility], random [id number] 03:04:34 Test Item Value Reference Range Interpretation Comments Urea Nitrogen, Ur 325 mg/dL (test code = 3095-7) TORO (test code = Reference Range: No TORO) NormalsOperator ID - [facility] [id number] 03:04:34 Test Item Value Reference Range Interpretation Comments Sodium Urine (test 81 meq/L code = 2955-3) TORO (test code = Reference Range: No TORO) NormalsOperator ID [facility] N[facility], random [id number] 03:04:34 Test Item Value Reference Range Interpretation Comments Urea Nitrogen, Ur 325 mg/dL (test code = 3095-7) TORO (test code = Reference Range: No TORO) NormalsOperator ID - ADMIN [facility] [id number] 03:04:34 Test Item Value Reference Range Interpretation Comments Sodium Urine (test 81 meq/L code = 2955-3) TORO (test code = Reference Range: No TORO) NormalsOperator ID - ADMIN [facility], random [id number] 03:04:34 Test Item Value Reference Range Interpretation Comments Urea Nitrogen, Ur 325 mg/dL (test code = 3095-7) TORO (test code = Reference Range: No TORO) NormalsOperator ID - ADMIN [facility] CenterODIUM, RANDOM [id number] 03:04:34 Test Item Value Reference Range Interpretation Comments SODIUM URINE (BEAKER) (test code = 81 meq/L 243) Reference Range: No NormalsOperator ID - ADMINUREA NITROGEN, RANDOM URINE 2022-01-23 03:04:34 Test Item Value Reference Range Interpretation Comments UREA NITROGEN URINE (BEAKER) (test 325 mg/dL code = 538) Reference Range: No NormalsOperator ID - ADMINCreatinine, random [id number] 03:04:33 Test Item Value Reference Range Interpretation Comments Creatinine, Ur 41.0 mg/dL (test code = 2161-8) TORO (test code = Reference Range: No TORO) NormalsOperator ID - ADMIN [place] [facility] HospitalCreatinine, [facility] [id number] 03:04:33 Test Item Value Reference Range Interpretation Comments Creatinine, Ur 41.0 mg/dL (test code = 2161-8) TORO (test code = Reference Range: No TORO) NormalsOperator ID - ADMIN [facility] [id number] 03:04:33 Test Item Value Reference Range Interpretation Comments Creatinine, Ur 41.0 mg/dL (test code = 2161-8) TORO (test code = Reference Range: No TORO) NormalsOperator ID - ADMIN [facility] HospitalCreat[facility], random [id number] 03:04:33 Test Item Value Reference Range Interpretation Comments Creatinine, Ur 41.0 mg/dL (test code = 2161-8) TORO (test code = Reference Range: No TORO) NormalsOperator ID - ADMIN [facility] HospitalCREATININE, RANDOM [id number] 03:04:33 Test Item Value Reference Range Interpretation Comments CREATININE URINE (MASTER) (test 41.0 mg/dL code = 375) Reference Range: No NormalsOperator ID - ADMINPOCT-GLUCOSE [id number] 00:09:08 Test Item Value Reference Range Interpretation Comments POC-GLUCOSE METER 408 mg/dL 70-110 HH : Notified RN/MD: (MASTER) (test code = TESTED AT [facility] 6720 1538) [facility], [address]: Medical Staff Physician/Techni daisy ID = [id number] for Ra Pamela baker U/S, RENAL, [id number] 22:42:00Reason for exam:->acute kidney injury [facility] 1940 Sex: FFINALREPORT [...] SARS-Co V-2 (test code = target nucleic 20406-9) acids are not detected in thi s [...] revoked sooner. Fact Sheet for Healthcare Providers: https://www.SciAps/Documents/Xp ert%20Xpress%20SAR S%20CoV-2/Fact%20S heets/302-3802%20S ARS-COV-2%20HEALTH CARE%20PROVIDERS%2 0FACT%20SHEET.pdf Fact Sheet for Healthcare Patients: https://www.SciAps/Documents/Xp ert%20Xpress%20SAR S%20CoV-2/Fact%20S heets/302-3801%20S ARS-COV-2%20PATIEN T%20FACT%20SHEET.p df Lab Interpretation Normal (test code = 31248-3) [facility]2022-01-22 20:55:56 Test Item Value Reference Interpretation Comments Range SARS-COV2/RT-PCR Negative Negative The SARS-Co V-2 (test code = target nucleic 54438-8) acids are not detected in thi s [...] revoked sooner. Fact Sheet for Healthcare Providers: https://www.SciAps/Documents/Xp ert%20Xpress%20SAR S%20CoV-2/Fact%20S heets/302-3802%20S ARS-COV-2%20HEALTH CARE%20PROVIDERS%2 0FACT%20SHEET.pdf Fact Sheet for Healthcare Patients: https://www.SciAps/Documents/Xp ert%20Xpress%20SAR S%20CoV-2/Fact%20S heets/302-3801%20S ARS-COV-2%20PATIEN T%20FACT%20SHEET.p df Lab Interpretation Normal (test code = 76598-7) [facility]Asymptomatic ONLY)2022-01-22 20:55:56 Test Item Value Reference Interpretation Comments Range SARS-COV2/RT-PCR Negative Negative The SARS-Co V-2 (test code = target nucleic 79595-2) acids are not detected in thi s [...] revoked sooner. Fact Sheet for Healthcare Providers: https://www.SciAps/Documents/Xp ert%20Xpress%20SAR S%20CoV-2/Fact%20S heets/302-3802%20S ARS-COV-2%20HEALTH CARE%20PROVIDERS%2 0FACT%20SHEET.pdf Fact Sheet for Healthcare Patients: https://www.SciAps/Documents/Xp ert%20Xpress%20SAR S%20CoV-2/Fact%20S heets/302-3801%20S ARS-COV-2%20PATIEN T%20FACT%20SHEET.p df Lab Interpretation Normal (test code = 63594-7) [facility]Asymptomatic ONLY)2022-01-22 20:55:56 Test Item Value Reference Interpretation Comments Range SARS-COV2/RT-PCR Negative Negative The SARS-Co V-2 (test code = target nucleic 47958-7) acids are not detected in thi s [...] revoked sooner. Fact Sheet for Healthcare Providers: https://www.SciAps/Documents/Xp ert%20Xpress%20SAR S%20CoV-2/Fact%20S heets/302-3802%20S ARS-COV-2%20HEALTH CARE%20PROVIDERS%2 0FACT%20SHEET.pdf Fact Sheet for Healthcare Patients: https://www.SciAps/Documents/Xp ert%20Xpress%20SAR S%20CoV-2/Fact%20S heets/302-3801%20S ARS-COV-2%20PATIEN T%20FACT%20SHEET.p df Lab Interpretation Normal (test code = 45366-1) [facility] ([facility])2022-01-22 20:55:56 Test Item Value Reference Range Interpretation Comments SARS-COV2/RT-PCR Negative Negative The SARS-Co V-2 target (test code = nucleic acids a re not 7270000) detected in thi s specimen. Negative result [...] revoked sooner. Fact Sheet for Healthcare Providers: https://www.in2apps m/Documents/Xpert%20Xpress%20SARS%20CoV-2/Fact%20Sheets/302-3802%23QYUS-CEE-0%20 HEALTHCARE%20PROVIDERS%20FACT%20SHEET.pdf Fact Sheet for Healthcare Patients: https://www.PlayCanvas/Documents/Xpert%20Xp ress%20SARS%20CoV-2/Fact%20Sheets/302-3801%76RSQT-TDZ-5%20PATIENT%20FACT%20SHEET .pdfUrinalysis w/Microscopic + Reflex to [id number] 15:58:03 Test Item Value Reference Range Interpretation Comments Color, UA (test code Yellow = 5778-6) Clarity, UA (test Hazy code = 5767-9) Specific Wing, UA 1.012 1.001-1.035 (test code = 5811-5) pH, UA (test code = 6.0 5.0-8.0 5803-2) Protein, UA (test 30 mg/dL Negative A code = 85842-0) Glucose, UA (test Negative Negative code = 365) Ketones, UA (test Negative Negative code = 2514-8) Bilirubin, UA (test Negative Negative code = 34061-7) Blood, UA (test code Negative Negative = 48927-2) Nitrite, UA (test Negative Negative code = 5802-4) Leukocytes, UA (test Large Negative A code = 5799-2) Urobilinogen, UA 0.2 0.2-1.0 (test code = 45825-1) RBC, UA (test code = 1 See_Comment [Autom ated 89509-5) message] The system which generated this result [...] 1 See_Comment [Automate d (test code = 56009-4) messag e] The system which generated this result transmit clemente reference range : /HPF. The reference range was not used to interpret this result as normal/abnormal . Specimen Source (test code = 2795) TORO (test code = TORO) Medical Staff Physician ID - [auto]Medical Staff Physician ID - tech Lab Interpretation Abnormal (test code = 92812-2) [facility] + Reflex to Culture 2022-01-22 15:58:03 Test Item Value Reference Range Interpretation Comments Color, UA (test code Yellow = 5778-6) Clarity, UA (test Hazy code = 5767-9) Specific Wing, UA 1.012 1.001-1.035 (test code = 5811-5) pH, UA (test code = 6.0 5.0-8.0 5803-2) Protein, UA (test 30 mg/dL Negative A code = 56750-6) Glucose, UA (test Negative Negative code = 365) Ketones, UA (test Negative Negative code = 2514-8) Bilirubin, UA (test Negative Negative code = 46130-8) Blood, UA (test code Negative Negative = 69364-9) Nitrite, UA (test Negative Negative code = 5802-4) Leukocytes, UA (test Large Negative A code = 5799-2) Urobilinogen, UA 0.2 0.2-1.0 (test code = 22236-1) RBC, UA (test code = 1 See_Comment [Autom ated 06820-1) message] The system which generated this result [...] 1 See_Comment [Automate d (test code = 35121-3) messag e] The system which generated this result transmit clemente reference range : /HPF. The reference range was not used to interpret this result as normal/abnormal . Specimen Source (test code = 2795) TORO (test code = TORO) Medical Staff Physician ID - [auto]Medical Staff Physician ID - tech Lab Interpretation Abnormal (test code = 03305-4) [facility] + Reflex to Culture 2022-01-22 15:58:03 Test Item Value Reference Range Interpretation Comments Color, UA (test code Yellow = 5778-6) Clarity, UA (test Hazy code = 5767-9) Specific Wing, UA 1.012 1.001-1.035 (test code = 5811-5) pH, UA (test code = 6.0 5.0-8.0 5803-2) Protein, UA (test 30 mg/dL Negative A code = 85790-8) Glucose, UA (test Negative Negative code = 365) Ketones, UA (test Negative Negative code = 2514-8) Bilirubin, UA (test Negative Negative code = 82847-2) Blood, UA (test code Negative Negative = 28235-4) Nitrite, UA (test Negative Negative code = 5802-4) Leukocytes, UA (test Large Negative A code = 5799-2) Urobilinogen, UA 0.2 0.2-1.0 (test code = 34497-1) RBC, UA (test code = 1 See_Comment [Autom ated 57423-0) message] The system which generated this result transmit clemente reference range : /HPF. The reference range was not used to interpret this result as normal/abnormal . WBC, UA (test code = 176 See_Comment [Autom ated 5821-4) message] The system which generated this result transmit clemente reference range : /HPF. The reference range was not used to interpret this result as normal/abnormal . [place] Epithel, UA 1 See_Comment [Automate d (test code = 11887-0) messag e] The system which generated this result transmit clemente reference range : /HPF. The reference range was not used to interpret this result as normal/abnormal . Specimen Source (test code = 2795) TORO (test code = TORO) Medical Staff Physician ID - [auto]Medical Staff Physician ID - tech Lab Interpretation Abnormal (test code = 54859-0) [facility]/Micro[facility]opic + Reflex to Culture 2022-01-22 15:58:03 Test Item Value Reference Range Interpretation Comments Color, UA (test code Yellow = 5778-6) Clarity, UA (test Hazy code = 5767-9) Specific Wing, UA 1.012 1.001-1.035 (test code = 5811-5) pH, UA (test code = 6.0 5.0-8.0 5803-2) Protein, UA (test 30 mg/dL Negative A code = 81957-8) Glucose, UA (test Negative Negative code = 365) Ketones, UA (test Negative Negative code = 2514-8) Bilirubin, UA (test Negative Negative code = 42944-1) Blood, UA (test code Negative Negative = 73772-1) Nitrite, UA (test Negative Negative code = 5802-4) Leukocytes, UA (test Large Negative A code = 5799-2) Urobilinogen, UA 0.2 0.2-1.0 (test code = 41892-7) RBC, UA (test code = 1 See_Comment [Autom ated 80004-6) message] The system which generated this result transmit clemente reference range : /HPF. The reference range was not used to interpret this result as normal/abnormal . WBC, UA (test code = 176 See_Comment [Autom ated 5821-4) message] The system which generated this result transmit clemente reference range : /HPF. The reference range was not used to interpret this result as normal/abnormal . [place] Epithel, UA 1 See_Comment [Automate d (test code = 69659-7) messag e] The system which generated this result transmit clemente reference range : /HPF. The reference range was not used to interpret this result as normal/abnormal . Specimen Source (test code = 2795) TORO (test code = TORO) Medical Staff Physician ID - [auto]Medical Staff Physician ID - tech Lab Interpretation Abnormal (test code = 69695-0) [facility] REFLEX URINE [id number] 15:58:03 Test Item Value Reference Range Interpretation [...] = 516) SOURCE(BEAKER) (test code = 2795) Medical Staff Physician ID - [auto]Medical Staff Physician ID - techCOMPREHENSIVE METABOLIC [id number] 15:35:37 Test Item Value Reference Range Interpretation [...] decreased 60-89 G3a Mildl y to moderately 45- 59 G3b Moderately to s everely 30-44 G4 Severl y decreased 15-29 G5 Kidney failure <15Reported eGF R is based on the CKD-EPI 2020 equation that d oes not use a race coefficientEsti mated GFR is not as accur ate as Creatinine Malika hernández in predicting glom erular filtration rate . Estimated GFR is not appl icable for dialysis patien ts Medical Staff Physician ID - [id number] 15:31:08 Test Item Value Reference Range Interpretation Comments MAGNESIUM (BEAKER) (test code = 2.0 mg/dL 1.6-2.6 627) Medical Staff Physician ID - BSCBC W/PLT COUNT & AUTO [id number] 15:07:18 Test Item Value Reference Range Interpretation [...] (BEAKER) (test code = 2801) CT, CTANGIO [id number] 14:59:00Reason for exam:->Symptoms onset less than 6 hours and NIHSS 6 or greater [facility] 1940 Sex: FFINALREPORT [...] Angiogram There is no evidence for a [place] large vessel occlusion. There is [...] or territorial hypoperfusion. No evidence for a [place] large vessel occlusion. No evidence of hemodynamically significant stenosis in the cervical carotid or vertebral arteries by NASCET criteria. Signed: Tima Rosa MDReport Verified Date/Time: 01/22/2022 14:59:39 CT, CAROTID, [id number] 14:59:00 Reason for exam:->Symptoms onset less than 6 hours and NIHSS 6 or greater [facility] : 1940 Sex: FFINALREPORT [...] Angiogram There is no evidence for a [place] large vessel occlusion. There is [...] or territorial hypoperfusion. No evidence for a [place] large vessel occlusion. No evidence of hemodynamically significant stenosis in the cervical carotid or vertebral arteries by NASCET criteria. Signed: Tima Rosa MDReport Verified Date/Time: 01/22/2022 14:59:39 CT, CEREBRAL PERFUSION ANALYSIS 2022-01-22 14:59:00Reason for exam:->Symptom onset less than 6 hours and NIHSS 6 or greater [facility] : 1940 Sex: FFINALREPORT [...] Angiogram There is no evidence for a [place] large vessel occlusion. There is [...] or territorial hypoperfusion. No evidence for a [place] large vessel occlusion. No evidence of hemodynamically significant stenosis in the cervical carotid or vertebral arteries by NASCET criteria. Signed: Tima Rosa MDReport Verified Date/Time: 01/22/2022 14:59:[address] [facility], [facility]RA[facility]/STROKE [id number] 13:51:00[facility] : 1940 Sex: FFINALREPORT [...] is recommended for further characterization. Signed: Siena Shaver Verified Date/Time: 01/22/2022 13:51:06 Microalbumin/Creat Ratio, Random [id number] 00:00:00 Test Item Value Reference Range Interpretation Comments Creatinine, Urine (test code = 2161-8) 62.3 Not Estab. Albumin, Urine (test code = 12997-5) 472.6 Not Estab. Alb/Creat Ratio (test code = 34719-8) 759 0-29 POCT-GLUCOSE [id number] 11:31:00 Test Item Value Reference Range Interpretation Comments POC-GLUCOSE METER 193 mg/dL 70-110 H : TESTED A T [facility] 6720 (BEAKER) (test code = [facility], 1538) [address]: Medical Staff Physician/Techni daisy ID = [id number] for CR UZ ARPAN, ODILI A POCT-GLUCOSE [id number] 08:31:00 Test Item Value Reference Range Interpretation Comments POC-GLUCOSE METER 230 mg/dL 70-110 H : TESTED A T [facility] 6720 (BEAKER) (test code = [facility], 1538) [address]: Medical Staff Physician/Techni daisy ID = [id number] for CR UZ ARPAN, ODILI A BASIC METABOLIC [id number] 05:55:00 Test Item Value Reference Range Interpretation [...] S NOT APPLICABLE FOR DIALYSIS PATIEN TS. Medical Staff Physician ID - PETER MCBC W/PLT COUNT & AUTO [id number] 05:31:00 Test Item Value Reference Range Interpretation [...] PERCENT (BEAKER) (test code = 2801) POCT-GLUCOSE [id number] 21:21:00 Test Item Value Reference Range Interpretation Comments POC-GLUCOSE METER 137 mg/dL 70-110 H : Notified RN/MD: (BEAKER) (test code = TESTED AT [place] [address] 1538) [facility], [address]: Medical Staff Physician/Techni daisy ID = [id number] for SA DORIS, ONDINA [id number] 17:06:00 Test Item Value Reference Range Interpretation Comments ACTIVATED CLOTTING TIME 164 sec : 74 -137 seconds, (BEAKER) (test code = Baseli ne: TESTED AT 441) [address], [address]: Medical Staff Physician/Techni daisy ID = [id number] for FE RRASHWIN KUMARA, CLAUDE [id number] 16:53:00 Test Item Value Reference Range Interpretation Comments ACTIVATED CLOTTING TIME 175 sec : 74 -137 seconds, (BEAKER) (test code = Baseli ne: TESTED AT 441) [address], [address]: Medical Staff Physician/Techni daisy ID = [id number] for FE RRARI JACKIE, CLAUDE [id number] 16:53:00 Test Item Value Reference Range Interpretation Comments ACTIVATED CLOTTING TIME 208 sec : 74 -137 seconds, (BEAKER) (test code = Baseli ne: TESTED AT 441) [facility] [address] [facility], [address]: Medical Staff Physician/Techni daisy ID = [id number] for CLAUDE HOLDER [id number] 16:06:00 Test Item Value Reference Range Interpretation Comments ACTIVATED CLOTTING TIME 296 sec : 74 -137 seconds, (BEAKER) (test code = Ryan ne: TESTED AT 441) [facility] [address] [facility], [address]: Medical Staff Physician/Techni daisy ID = [id number] for CLAUDE HOLDER POCT-GLUCOSE [id number] 12:21:00 Test Item Value Reference Range Interpretation Comments POC-GLUCOSE METER 127 mg/dL 70-110 H : TESTED A T [facility] 6720 (BEAKER) (test code = [facility], 1538) [address]: Medical Staff Physician/Techni daisy ID = [id number] for Constance David basim POCT-GLUCOSE [id number] 08:51:00 Test Item Value Reference Range Interpretation Comments POC-GLUCOSE METER 163 mg/dL 70-110 H : TESTED A T [facility] 6720 (BEAKER) (test code = [facility], 1538) [address]: Medical Staff Physician/Techni daisy ID = [id number] for Igbalajobi, She basim BASIC METABOLIC [id number] 06:38:00 Test Item Value Reference Range Interpretation [...] S NOT APPLICABLE FOR DIALYSIS PATIEN TS. Medical Staff Physician ID - BHUMIKA WCBC W/PLT COUNT & AUTO [id number] 05:45:00 Test Item Value Reference Range Interpretation [...] PERCENT (BEAKER) (test code = 2801) POCT-GLUCOSE [id number] 22:11:00 Test Item Value Reference Range Interpretation Comments POC-GLUCOSE METER 210 mg/dL 70-110 H : TESTED A T [facility] 6720 (BEAKER) (test code = [facility], 1538) [address]: Medical Staff Physician/Techni daisy ID = [id number] for Gertrude Waldrop POCT-GLUCOSE [id number] 18:24:00 Test Item Value Reference Range Interpretation Comments POC-GLUCOSE METER 157 mg/dL 70-110 H : TESTED A T [facility] 6720 (BEAKER) (test code = [facility], 1538) [address]: Medical Staff Physician/Techni daisy ID = [id number] for Wanda Wakefield POCT-GLUCOSE [id number] 12:10:00 Test Item Value Reference Range Interpretation Comments POC-GLUCOSE METER 146 mg/dL 70-110 H : TESTED A T [facility] 6720 (BEAKER) (test code = [facility], 1538) [address]: Medical Staff Physician/Techni daisy ID = [id number] for Wanda Wakefield POCT-GLUCOSE [id number] 08:39:00 Test Item Value Reference Range Interpretation Comments POC-GLUCOSE METER 113 mg/dL 70-110 H : TESTED A T [facility] 6720 (BEAKER) (test code = [facility], 1538) [address]: Medical Staff Physician/Techni daisy ID = [id number] for Wanda Wakefield BASIC METABOLIC [id number] 06:06:00 Test Item Value Reference Range Interpretation [...] S NOT APPLICABLE FOR DIALYSIS PATIEN TS. Medical Staff Physician ID - PIAYA LCBC W/PLT COUNT & AUTO [id number] 05:24:00 Test Item Value Reference Range Interpretation [...] PERCENT (BEAKER) (test code = 2801) POCT-GLUCOSE [id number] 21:49:00 Test Item Value Reference Range Interpretation Comments POC-GLUCOSE METER 158 mg/dL 70-110 H : TESTED A T [facility] 6720 (BEAKER) (test code = [facility], 153) [address]: Medical Staff Physician/Techni daisy ID = [id number] for Manuel Marcelino POCT-GLUCOSE [id number] 18:10:00 Test Item Value Reference Range Interpretation Comments POC-GLUCOSE METER 152 mg/dL 70-110 H : TESTED A T [facility] 6720 (BEAKER) (test code = [facility], 1538) [address]: Medical Staff Physician/Techni daisy ID = [id number] for Igbalajochace, She basim POCT-GLUCOSE [id number] 12:52:00 Test Item Value Reference Range Interpretation Comments POC-GLUCOSE METER 149 mg/dL 70-110 H : TESTED A T [facility] 6720 (BEAKER) (test code = [facility], 1538) [address]: Medical Staff Physician/Techni daisy ID = [id number] for Igbalajobi, She basim POCT-GLUCOSE [id number] 09:18:00 Test Item Value Reference Range Interpretation Comments POC-GLUCOSE METER 141 mg/dL 70-110 H : TESTED A T [facility] 6720 (BEAKER) (test code = [facility], 1538) [address]: Medical Staff Physician/Techni daisy ID = [id number] for Constance David BASIC METABOLIC [id number] 07:12:00 Test Item Value Reference Range Interpretation [...] S NOT APPLICABLE FOR DIALYSIS PATIEN TS. Medical Staff Physician ID - DBCBC W/PLT COUNT & AUTO [id number] 06:50:00 Test Item Value Reference Range Interpretation [...] PERCENT (BEAKER) (test code = 2801) POCT-GLUCOSE [id number] 23:42:00 Test Item Value Reference Range Interpretation Comments POC-GLUCOSE METER 245 mg/dL 70-110 H : TESTED A T [facility] 6720 (BEAKER) (test code = [facility], 1538) [address]: Medical Staff Physician/Techni daisy ID = [id number] for Manuel Marcelino POCT-GLUCOSE [id number] 17:40:00 Test Item Value Reference Range Interpretation Comments POC-GLUCOSE METER 225 mg/dL 70-110 H : TESTED A T [facility] 6720 (BEAKER) (test code = [facility], 1538) [address]: Medical Staff Physician/Techni daisy ID = [id number] for NatyyifanConstance stephens POCT-GLUCOSE [id number] 13:07:00 Test Item Value Reference Range Interpretation Comments POC-GLUCOSE METER 224 mg/dL 70-110 H : TESTED A T [facility] 6720 (BEAKER) (test code = MAMTA Seth [place], 1538) [address]: Medical Staff Physician/Techni daisy ID = [id number] for Constance David POCT-GLUCOSE [id number] 09:47:00 Test Item Value Reference Range Interpretation Comments POC-GLUCOSE METER 162 mg/dL 70-110 H : TESTED A T [facility] 6720 (BEAKER) (test code = MAMTA Seth [facility], 1538) [address]: Medical Staff Physician/Techni daisy ID = [id number] for Constance David basim PLATELET AGGREGATION: FUNCTION [id number] 09:33:00 Test Item Value Reference Range Interpretation Comments [id number] Jw Garcia M.D. (BEAKER) (test code = (electonic signature) 7626) PLATELET COUNT AGG 246 K/CU MM 150-450 [...] may be falsely low with platelet counts<75,000/cu mm.Medical Staff Physician ID- [id number] METABOLIC [id number] 04:41:00 Test Item Value Reference Range Interpretation [...] S NOT APPLICABLE FOR DIALYSIS PATIEN TS. Medical Staff Physician ID - EDASICBC W/PLT COUNT & AUTO [id number] 04:24:00 Test Item Value Reference Range Interpretation [...] PERCENT (BEAKER) (test code = 2801) POCT-GLUCOSE [id number] 21:48:00 Test Item Value Reference Range Interpretation Comments POC-GLUCOSE METER 236 mg/dL 70-110 H : TESTED A T [facility] 6720 (BEAKER) (test code = [facility], 153) [address]: Medical Staff Physician/Techni daisy ID = [id number] for Cassie Abdi POCT-GLUCOSE [id number] 17:47:00 Test Item Value Reference Range Interpretation Comments POC-GLUCOSE METER 224 mg/dL 70-110 H : TESTED A T [facility] 6720 (BEAKER) (test code = [facility], 153) [address]: Medical Staff Physician/Techni daisy ID = [id number] for KEIRY LOZANO CAITLIN POCT-GLUCOSE [id number] 13:24:00 Test Item Value Reference Range Interpretation Comments POC-GLUCOSE METER 245 mg/dL 70-110 H : TESTED A T [facility] 6720 (BEAKER) (test code = [facility], 153) [address]: Medical Staff Physician/Techni daisy ID = [id number] for Alanna Garces RAD, CHEST, 1 VIEW, NON [id number] 11:21:00Reason for exam:->preop evalShould this be performed at the bedside?->Yes [facility] 1940 Sex: FFINAL REPORT EXAMINATION: RAD, CHEST, 1 VIEW, NON DEPT. INDICATION: 79-year-old female, preoperative examination. COMPARISON: None. FINDINGS:Mild to moderate cardiomegaly. Pulmonary dasha and vasculature are within normal limits. No evidence of consolidation. No pleural effusion. No pneumothorax. Kwwb-bw-ecghxfpu degenerative changes of the bilateral shoulders. Visualized soft tissues are unremarkable. IMPRESSION:No evidence of pneumonia or other acute cardiopulmonary abnormality. Mild to moderate cardiomegaly. Signed: More Santiago Verified Date/Time: 07/05/2020 11:21:30 Reading Location: [address] Body Reading Room POCT-GLUCOSE [id number] 08:59:00 Test Item Value Reference Range Interpretation Comments POC-GLUCOSE METER 195 mg/dL 70-110 H : TESTED A T [facility] 6720 (BEAKER) (test code = M[facility] Rolo [facility], 1538) [address]: Medical Staff Physician/Techni daisy ID = [id number] for CAITLIN KENNEY BASIC METABOLIC [id number] 06:20:00 Test Item Value Reference Range Interpretation [...] S NOT APPLICABLE FOR DIALYSIS PATIEN TS. Medical Staff Physician ID - EDASICBC W/PLT COUNT & AUTO [id number] 05:33:00 Test Item Value Reference Range Interpretation [...] PERCENT (BEAKER) (test code = 2801) POCT-GLUCOSE [id number] 20:52:00 Test Item Value Reference Range Interpretation Comments POC-GLUCOSE METER 292 mg/dL 70-110 H : TESTED A T [facility] 6720 (BEAKER) (test code = [facility] HOSPITAL, [facility]) [address]: Medical Staff Physician/Techni daisy ID = [id number] for Cassie Abdi POCT-GLUCOSE [id number] 19:01:00 Test Item Value Reference Range Interpretation Comments POC-GLUCOSE METER 294 mg/dL 70-110 H : TESTED A T [facility] 6720 (BEAKER) (test code = [facility], 153) 01591: Medical Staff Physician/Techni daisy ID = [id number] for Igbalajobi, She basim POCT-GLUCOSE [id number] 12:40:00 Test Item Value Reference Range Interpretation Comments POC-GLUCOSE METER 159 mg/dL 70-110 H : TESTED A T [facility] 6720 (BEAKER) (test code = [facility], 1538) 41815: Medical Staff Physician/Techni daisy ID = [id number] for Igbalajobi, She basim POCT-GLUCOSE [id number] 09:34:00 Test Item Value Reference Range Interpretation Comments POC-GLUCOSE METER 101 mg/dL 70-110 : TESTED A T [facility] 6720 (BEAKER) (test code = [facility], 153) 66247: Medical Staff Physician/Techni daisy ID = [id number] for Igbalajobi, She basim HEMOGLOBIN [id number] 08:28:00 Test Item Value Reference Range Interpretation Comments HEMOGLOBIN A1C (BEAKER) (test code = 9.6 % 4.3-6.1 H 368) TSH/FREE T4 IF [id number] 06:08:00 Test Item Value Reference Range Interpretation Comments THYROID STIMULATING HORMONE 0.972 uIU/mL 0.350-4.940 (BEAKER) (test code = 772) Medical Staff Physician ID - EDASIBASIC METABOLIC [id number] 05:44:00 Test Item Value Reference Range Interpretation [...] S NOT APPLICABLE FOR DIALYSIS PATIEN TS. Medical Staff Physician ID - EDASICBC W/PLT COUNT & AUTO [id number] 05:22:00 Test Item Value Reference Range Interpretation [...] PERCENT (BEAKER) (test code = 2801) SARS-COV2/RT-PCR ([facility])2020-07-04 03:49:00 Test Item Value Reference Range Interpretation Comments SARS-COV2/RT-PCR (test Negative Not Detected, Negative, code = 7359908) See external report for linked test SARS-COV-2 PERFORMING LAB [facility] (test code = 4269405) Negative result for this test determines that [...] the Hughes SARS-CoV-2 assay.Fact Sheet for Healthcare Providers:https://www.molecular.hughes/jaylene/RT_SAR R-NrY-8_WNF_Yuvy_Kggsx_61-755721.pdfFact Sheet for Healthcare Patients:https://www.molecular.hughes/s al/RC_CVQS-HyM-4_Bwlztff_Qasa_Ullpj_NA_43-521181D7.pdfPerforming Laboratory:[facility] [place] [address] POCT-GLUCOSE [id number] 23:10:00 Test Item Value Reference Range Interpretation Comments POC-GLUCOSE METER 302 mg/dL 70-110 H : TESTED Yifan Linder [facility] 6720 (MASTER) (test code = [facility], 1538) 17401: Medical Staff Physician/Techni daisy ID = [id number] for Manuel Marcelino BASIC METABOLIC [id number] 18:18:00 Test Item Value Reference Range Interpretation [...] S NOT APPLICABLE FOR DIALYSIS PATIEN TS. Medical Staff Physician ID - ADMINHEPATIC FUNCTION [id number] 18:18:00 Test Item Value Reference Range Interpretation [...] (test code = 28 U/L 6-55 347) Medical Staff Physician ID - ADMINPROTHROMBIN [id number] 18:15:00 Test Item Value Reference Range Interpretation Comments PROTIME (BEAKER) 14.0 seconds 11.9-14.2 (test code = 759) INR (BEAKER) (test 1.11 See_Comment [Automat ed message] code = 370) The system whic h generated this result transmitted ref erence range: [...] mechanical heart valves.CBC W/PLT COUNT & AUTO [id number] 18:00:00 Test Item Value Reference Range Interpretation [...] PERCENT (BEAKER) (test code = 2801) POCT-GLUCOSE [id number] 17:50:00 Test Item Value Reference Range Interpretation Comments POC-GLUCOSE METER 187 mg/dL 70-110 H : TESTED A T [facility] 6720 (BEAKER) (test code = [place], 1538) [address]: Medical Staff Physician/Techni daisy ID = [id number] for Constance David [id number] 16:34:00 RUN DATE: 10/19/18 [facility] - LAB *LIVE* PAGE 1 RUN TIME: 1634 Specimen Inquiry RUN USER: INTERFACE PATIENT: MEGHNA BIRD #: [id number] LOC: MAGGIE Berman #: [id number] AGE/SX: 77/F ROOM: FLAKITA RE10/12/18REG DR: Alfredo Cantu MD : 41 BED: 1 DIS: 10/13/18 STATUS: DIS Marcela TLOC: SPEC #: [id number]: 10/16/18 STATUS: SOUKailash REQ #: [id number] JENNA: 10/13/[address]: Alfredo Cantu MD ENTERED: 10/16/18 SP TYPE: SURG OTHR DR: Thao Crooks MD, Nizam Mohammad MD [place], Frank E MDORDERED: AB/PAS MAUREEN, SURG PATH LVL 4, PATH STAIN GROU COPIES TO: Thao Crooks MD [address] [place] [address] [place] [address] [address] [email or web address] Baldemar Simeon MD [address] [place] [address] Babar Wang MD [address] [address] HISTOLOGY: TISSUE ID BLK PCS ALFREDO LEV PROCEDURE DISPOSITION ____ ___ ___ ___ STOMACH, NOS A 1 1 AB/PAS MAUREEN STOMACH, NOS A 1 2 PATH STAIN GROU PROCEDURES: ALBLUE (10/16/18-1303) PAS (10/16/18-1303) SURG PATH LVL 4 (10/16/18-1302) PATH STAIN GROU (10/16/18) TISSUES: A. 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 Received in formalin are two mendiola tissue fragments, 0.2 cm each, all as A. ba/nr Grossing performed at [facility] Pathology, [address] [place] [address], [address], [place] [address]. Research Greenhouse Supervisor: Carlos Sargent M.D. MICROSCOPIC DESCRIPTION Gastric polyp. Sections demonstrate gastric mucosa with chronic inflammation. No dysplasia or malignancy is seen. Alcian blue-PAS confirms the presence of focal intestinal metaplasia. No dysplasia or malignancy is identified. The Diff Quik stain demonstrates no evidence of Helicobacter pylori organisms.- Signed SIGNATURE ON FILE Nain Lott Jamal 10/19/18 1634 END OF REPORT GLUCOSE BEDSIDE [id number] 16:38:00 Test Item Value Reference Range Interpretation Comments GLUCOSE BEDSIDE TESTING (test code 174 mg/dL 70-110 H = GLUBED) GLUCOSE BEDSIDE [id number] 15:01:00 Test Item Value Reference Range Interpretation Comments GLUCOSE BEDSIDE TESTING (test code 193 mg/dL 70-110 H = GLUBED) GLUCOSE BEDSIDE [id number] 12:01:00 Test Item Value Reference Range Interpretation Comments GLUCOSE BEDSIDE TESTING (test code 178 mg/dL 70-110 H = GLUBED) GLUCOSE BEDSIDE [id number] 07:56:00 Test Item Value Reference Range Interpretation Comments GLUCOSE BEDSIDE TESTING (test code 191 mg/dL 70-110 H = GLUBED) BASIC METABOLIC [id number] 03:36:00 Test Item Value Reference Range Interpretation [...] CA) 8.5 MG/DL 8.5-10.1 N CBC W/AUTO [id number] 03:27:00 Test Item Value Reference Range Interpretation [...] = NO DIFF/SCN CRITERIA MDIFF) GLUCOSE BEDSIDE [id number] 21:07:00 Test Item Value Reference Range Interpretation Comments GLUCOSE BEDSIDE TESTING (test code 186 mg/dL 70-110 H = GLUBED) GLYCOSYLATED HEMOGLOBIN [id number] 17:49:00 Test Item Value Reference Range Interpretation Comments GLYCOSYLATED HEMOGLOBIN (HA1C) 8.2 % A1C 4.2-6.3 H (test code = GLYHGB) ESTIMATED AVERAGE GLUCOSE (test 189 MG/DLest code = EAG) COMPREHENSIVE METABOLIC [id number] 17:45:00 Test Item Value Reference Range Interpretation [...] = LDL/HDL) 1.61 Ratio 1.48-3.22 Avg N [id number] 17:45:00 Test Item Value Reference Range Interpretation Comments PHOSPHOROUS (test code = PHOS) 2.7 MG/DL 2.5-4.9 N RULE OUT IL [id number] 17:45:00 Test Item Value Reference Range Interpretation [...] nume rical results may timothy yby method. [id number] 17:45:00 Test Item Value Reference Range Interpretation Comments MAGNESIUM (test code = MAG) 2.0 MG/DL 1.8-2.4 N THROMBOPLASTIN TIME [id number] 17:37:00 Test Item Value Reference Range Interpretation Comments THROMBOPLASTIN TIME PARTIAL 30.9 SECONDS 26-35 N (test code = PTT) PROTHROMBIN [id number] 17:36:00 Test Item Value Reference Range Interpretation Comments PT PATIENT (test code = PTP) 13.3 SECONDS 9.3-12.9 H INTERNATIONAL NORMAL RATIO 1.15 INR Unit 0.8-1.2 N (test code = INR) CBC W/AUTO [id number] 17:34:00 Test Item Value Reference Range Interpretation [...] DIFF/SCN CRITERIA MDIFF) - XR CHEST 1 [id number] 17:02:00 Name: MEGHNA BIRD [place] : 1940 Age/S: 77 / F [address] [address] Unit #: [id number] Loc: [place] [address] Phys: Alfredo Cantu MD Acct: [id number] Dis Date: Status: ADM IN PHONE #: [phone] Exam Date: 10/12/2018 1640 FAX #: Reason: CAD EXAMS: CPT: [id number] XR CHEST 1 V 54245 Fluoro Time: DAP (Gy m2): Air Kerma [...] MD; Babar Wang MD PAGE 1 Signed ReportName: MEGHNA BIRD [place] : 1940 Age/S: 77 / F [address] Unit #: [id number] Loc: [place] [address] Phys: Alfredo Cantu MD Acct: [id number] Dis Date: Status: ADM IN PHONE #: [phone] Exam Date: 10/12/2018 1640 FAX #: Reason: CAD EXAMS: CPT: [id number] XR CHEST 1 V 89721 Fluoro Time: DAP (Gy m2): Air Kerma (mGy): (Continued) Technologist: Harsha Carr, RT(R)(CT)(MRI) Trnscb Date/Time: 10/12/2018 (1702) AnglePR7 Orig Print D/T: S: 10/12/2018 (1750) PAGE 2 Signed ReportGLUCOSE BEDSIDE TESTING 2018-10-12 15:59:00 Test Item Value Reference Range Interpretation Comments GLUCOSE BEDSIDE TESTING (test code 114 mg/dL 70-110 H = GLUBED)
[2022-04-17 12:36] LABS: Absolute Lymphocytes (CBC) 1.1 K/uL (0.7-4.9); MCV 81.7 fL (80-100); MPV 8.7 fL (7.6-11.3); RBC Red Blood Cell Count 3.79 M/uL (3.86-4.86)
--- NOTE | 2022-04-17 12:47 | RAD REPORT ---
EXAM DESCRIPTION: CT - Head Brain Wo Cont - 04/17/2022 12:37 pm CLINICAL HISTORY: Slurred speech COMPARISON: February 2022 TECHNIQUE: Computed axial tomography of the head was obtained. IV contrast was not requested. All CT scans are performed using dose optimization technique as appropriate and may include automated exposure control or mA/KV adjustment according to patient size. FINDINGS: An intracranial bleed is not seen . The ventricles are normal in caliber. No extra-axial fluid collection is noted. No significant hypodensity within the brain Fluid within the sinuses/ mastoids is not seen. IMPRESSION: No acute intracranial abnormality is seen. If patient's symptoms persist MRI of the bra in would be recommended.
[2022-04-17 12:53] LABS: Potassium 4.8 mmol/L (3.5-5.1); Troponin High Sensitivity 14.4 pg/mL (<58.9)
[2022-04-17 13:13] LABS: Blood Morphology Comment NOT SEEN (NOT SEEN); Platelet Estimate ADEQ; White Blood Cell Scan OK (OK)
[2022-04-17 13:14] LABS: Anisocytosis 1+
[2022-04-17 13:15] LABS: Urine Blood Trace-lysed (Negative); Urine Glucose Negative (Negative); Urine Protein 2+ (Negative); Urine pH 5.5 (5.0-7.0)
--- NOTE | 2022-04-17 13:31 | RAD REPORT ---
EXAM DESCRIPTION: Maria Esther Single View04/17/2022 12:55 pm CLINICAL HISTORY: Chest pain COMPARISON: March 24, 2022 FINDINGS: Upper lobe vessels are prominent indicative of pulmonary venous hypertension. The lungs appear clear of acute infiltrate. The heart is mildly enlarged
--- NOTE | 2022-04-17 13:32 | RAD REPORT ---
EXAM DESCRIPTION: RAD - Knee Right 3 View - 04/17/2022 12:55 pm CLINICAL HISTORY: Right knee pain FINDINGS: No fracture or dislocation is seen. Mild to moderate osteoarthritis involves the knee
--- NOTE | 2022-04-17 15:10 | EDPHYS ---
Physician Documentation [facility] Name: Gloria Longoria Age: 81 yrs Sex: Female : 1940 Arrival Date: 04/17/2022 Time: 11:36 Bed 3 Private MD: ED Physician Freddy Roblero HPI: 04/17 15:38 This 81 yrs old Black Female presents to ER via EMS with complaints of General Weakness.kdr 15:38 Patient daughter reports that she has become increasingly weak over the last few weeks. kdr Specifically she has had upper extremity weakness and difficulty speaking. She has had a similar episode back in December and was seen here at this facility and subsequently transferred to [facility]. Daughter relates that after extensive work-up and further evaluation, they were able to identify a specific etiology or pathology for her symptoms. Over the course of her admission there which was on the order of 3 to 4 days, the patient was slowly returning to her baseline and was discharged in good condition back home. Since then she has had intermittent but mild symptoms without significant leading to return to the ED. Over the last few days the daughter feels that she become increasingly weak with inability to hold upper extremities for an extended period of time. She also feels that the patient has had increasing difficulty with her speech. Patient herself states that she just does not feel well. Previously she had had a UTI associated with the similar symptoms. Patient otherwise appears in stable condition and does not require immediate emergent intervention. Onset: The symptoms/episode began/occurred gradually, at an unknown time. Severity of symptoms: At their worst the symptoms were mild just prior to arrival, in the emergency department the symptoms are unchanged. The patient has experienced similar episodes in the past, chronically. The patient has been recently seen by a physician: Patient has had monthly ED visits since last December. Historical: - Allergies: 11:38 Sulfa (Sulfonamide Antibiotics); ph - PMHx: 11:38 ADD/ADHD; CHF; colon cancer; COPD; Diabetes - IDDM; Hypertension; Myocardial ph infarction; Pneumonia; - Immunization history:: Adult Immunizations unknown. - Social history:: Smoking status: unknown. ROS: 15:38 Constitutional: Negative for fever, chills, and weight loss, patient states she kdr generally feels ill but without focal cause Eyes: Negative for injury, pain, redness, and discharge, ENT: Negative for injury, pain, and discharge, Neck: Negative for injury, pain, and swelling, Cardiovascular: Negative for chest pain, palpitations, and edema, Respiratory: Negative for shortness of breath, cough, wheezing, and pleuritic chest pain, Abdomen/GI: Negative for abdominal pain, nausea, vomiting, diarrhea, and constipation, Back: Negative for injury and pain, : Negative for injury, bleeding, discharge, and swelling, Skin: Negative for injury, rash, and discoloration, Psych: Negative for depression, anxiety, suicide ideation, homicidal ideation, and hallucinations, Allergy/Immunology: Negative for hives, rash, and allergies, Endocrine: Negative for neck swelling, polydipsia, polyuria, polyphagia, and marked weight changes, Hematologic/Lymphatic: Negative for swollen nodes, abnormal bleeding, and unusual bruising. 15:38 MS/extremity: Positive for of the right arm and left arm, Weakness, Negative for injury or acute deformity, pain, paresthesias. 15:38 Neuro: Positive for speech changes, visual changes, weakness, of the right arm and left arm, Negative for headache, loss of consciousness, numbness, seizure activity, tinnitus, tremor. Exam: 15:38 Constitutional: This is a well developed, well nourished patient who is awake but kdr poorly responsive. She is easily arousable and responds seemingly appropriately to questions when prompted Head/Face: Normocephalic, atraumatic. Eyes: Pupils equal round and reactive to light, extra-ocular motions intact. Lids and lashes normal. Conjunctiva and sclera are non-icteric and not injected. Cornea within normal limits. Periorbital areas with no swelling, redness, or edema. ENT: Nares patent. No nasal discharge, no septal abnormalities noted. Tympanic membranes are normal and external auditory canals are clear. Oropharynx with no redness, swelling, or masses, exudates, or evidence of obstruction, uvula midline. Mucous membranes moist. Neck: Trachea midline, no thyromegaly or masses palpated, and no cervical lymphadenopathy. Supple, full range of motion without nuchal rigidity, or vertebral point tenderness. No Meningismus. Chest/axilla: Normal chest wall appearance and motion. Nontender with no deformity. No lesions are appreciated. Cardiovascular: Regular rate and rhythm with a normal S1 and S2. No gallops, murmurs, or rubs. Normal PMI, no JVD. No pulse deficits. Respiratory: Lungs have equal breath sounds bilaterally, clear to auscultation and percussion. No rales, rhonchi or wheezes noted. No increased work of breathing, no retractions or nasal flaring. Abdomen/GI: Soft, non-tender, with normal bowel sounds. No distension or tympany. No guarding or rebound. No evidence of tenderness throughout. Back: No spinal tenderness. No costovertebral tenderness. Full range of motion. Skin: Warm, dry with normal turgor. Normal color with no rashes, no lesions, and no evidence of cellulitis. MS/ Extremity: Pulses equal, no cyanosis. Neurovascular intact. Full, normal range of motion. Neuro: Awake and alert, GCS 15, oriented to person, place, time, and situation. Cranial nerves II-XII grossly intact. Motor strength 5/5 in all extremities. Sensory grossly intact. Cerebellar exam normal. Normal gait. Psych: Awake, alert, with orientation to person, place and time. Behavior, mood, and affect are within normal limits. Vital Signs: 11:37 BP 125 / 56; Pulse 78; Resp 17; Temp 98.2; Pulse Ox 95% on R/A; Weight 106.59 kg; hb Height 5 ft. 6 in. (167.64 cm); Pain 0/10; 12:43 BP 115 / 54; Pulse 79; Resp 16; Pulse Ox 96% on R/A; Pain 0/10; mb9 14:11 BP 125 / 61; Pulse 76; Resp 18; Pulse Ox 95% on R/A; Pain 0/10; mb9 15:32 BP 123 / 52; Pulse 74; Resp 18; Pulse Ox 100% ; Pain 0/10; mb9 11:37 Body Mass Index 37.93 (106.59 kg, 167.64 cm) hb MDM: 15:09 Patient medically screened. kdr 15:14 ED course: I had extensive discussion with the patient especially the daughter with kdr regard to the options of either a transfer to [facility] in the [facility], staying here at this facility for further evaluation or being discharged home. The symptoms that presented today with this patient were similar to what she had in December. At that time she was transferred to [facility] and had extensive evaluation and diagnostic studies performed. According to the patient and daughter, after that extensive evaluation and admission, no obvious contributing pathology was identified. Today's symptoms are similar to what she experienced in December. There is no definitive onset of the current symptoms. Symptoms may have been present for 2 or more days prior to arrival. Patient was appropriately interactive with her daughter and with me. She answered questions appropriately. She was very adamant about not being transferred or admitted to the hospital. In addition the daughter expressed her frustration with not being able to get some of her prescriptions filled. We reviewed those needs and I rectified that problem. The patient and family were discharged in stable condition and without further incident. Patient family were happy with the care provided the plan for discharge and follow-up. 15:38 Data reviewed: vital signs, nurses notes. [facility] 16:00 ED course: Discussed with Dr. Luis who indicated that patient could call the office [facility] on Tuesday morning and they would work Induction Manager at an earlier appointment date. 04/17 11:44 Order name: Basic Metabolic Panel; Complete Time: 13:07 [facility] 04/17 11:44 Order name: CBC with Diff; Complete Time: 13:58 [facility] 04/17 11:44 Order name: Troponin HS; Complete Time: 13:07 [facility] 04/17 12:13 Order name: Urine Culture [facility] 04/17 13:14 Order name: CBC Smear Scan; Complete Time: 13:58 [facility] 04/17 13:15 Order name: Urine Dipstick-Ancillary; Complete Time: 13:58 [facility] 04/17 11:44 Order name: XRAY Chest (1 view); Complete Time: 13:58 [facility] 04/17 11:44 Order name: EKG; Complete Time: 11:45 [facility] 04/17 11:44 Order name: Cardiac monitoring; Complete Time: 11:52 [facility] 04/17 11:44 Order name: EKG - Nurse/Tech; Complete Time: 11:52 [facility] 04/17 11:44 Order name: Labs collected and sent; Complete Time: 12:30 [facility] 04/17 12:13 Order name: CT Head Brain wo Cont; Complete Time: 13:07 [facility] 04/17 12:13 Order name: Knee Right 3 View XRAY; Complete Time: 13:58 [facility] 04/17 11:44 Order name: O2 Per Protocol; Complete Time: 11:52 kdr 04/17 11:44 Order name: O2 Sat Monitoring; Complete Time: 52 kdr 04/17 12:13 Order name: Urine Dipstick-Ancillary (obtain specimen); Complete Time: 13:15 kdr 04/17 13:16 Order name: Straight Cath - Urine; Complete Time: 13:16 mb9 Administered Medications: No medications were administered Disposition Summary: 04/17/22 15:09 Discharge Ordered Location: Home kdr Problem: an ongoing problem kdr Symptoms: have improved kdr Condition: Stable kdr Diagnosis - Weakness kdr - Aphasia kdr - Dysphasia and aphasia kdr - Other specified arthritis, right knee kdr Followup: kdr - With: Private Physician - When: 2 - 3 days - Reason: If symptoms return, Further diagnostic work-up, Recheck today's complaints, Continuance of care, Re-evaluation by your physician Discharge Instructions: - Discharge Summary Sheet kdr - Aphasia kdr - Fatigue kdr - Arthritis, Lbdv-yt-Apnp kdr - Weakness, Wxqo-qy-Dbjs kdr Forms: - Medication Reconciliation Form kdr - Thank You Letter kdr Prescriptions: - ezetimibe 10 mg Oral tablet - take 1 tablet by ORAL route once daily; 30 tablet; Refills: 0, Product kdr Selection Permitted - Lasix 40 mg Oral Tablet - take 1 tablet by ORAL route once daily for 30 days; 30 tablet; Refills: 0, kdr Product Selection Permitted - Folic Acid 1 mg Oral Tablet - take 1 tablet by ORAL route once daily; 30 tablet; Refills: 0, Product kdr Selection Permitted Signatures: Dispatcher [employer] Freddy Powers MD MD kdr Hall, Patricia RN RN Dory Garcia, RN RN mb9
--- NOTE | 2022-04-17 15:10 | ER ---
Nurse's Notes [facility] Name: Gloria Longoria Age: 81 yrs Sex: Female : 1940 Arrival Date: 04/17/2022 Time: 11:36 Bed 3 Private MD: Diagnosis: Weakness;Aphasia;Dysphasia and aphasia;Other specified arthritis, right knee Presentation: 04/17 11:37 Chief complaint: EMS states: Son reports worsening generalized weakness x 4 weeks. BGL hb 289. Coronavirus screen: At this time, the client does not indicate any symptoms associated with coronavirus-19. Ebola Screen: No symptoms or risks identified at this time. Initial Sepsis Screen: Does the patient meet any 2 criteria? No. Patient's initial sepsis screen is negative. Does the patient have a suspected source of infection? No. Patient's initial sepsis screen is negative. Risk Assessment: Do you want to hurt yourself or someone else? Patient reports no desire to harm self or others. Onset of symptoms is unknown. 11:37 Method Of Arrival: EMS: [facility] hb 11:37 Acuity: MALAIKA 3 hb Historical: - Allergies: 11:38 Sulfa (Sulfonamide Antibiotics); ph - PMHx: 11:38 ADD/ADHD; CHF; colon cancer; COPD; Diabetes - IDDM; Hypertension; Myocardial ph infarction; Pneumonia; - Immunization history:: Adult Immunizations unknown. - Social history:: Smoking status: unknown. Screenin:38 [facility] ED Fall Risk Assessment (Adult) History of falling in the last 3 months, ph including since admission No falls in past 3 months (0 pts) Confusion or Disorientation No (0 pts) Intoxicated or Sedated No (0 pts) Impaired Gait Yes (1 pt) Mobility Assist Device Used Yes (1 pt) Altered Elimination Yes (1 pt) Score/Fall Risk Level 0 - 2 = Low Risk Oriented to surroundings, Maintained a safe environment, Hourly rounding (assess needs \\T\\ fall precautionary measures) done. Abuse screen: Denies threats or abuse. Denies injuries from another. Nutritional screening: No deficits noted. Tuberculosis screening: No symptoms or risk factors identified. Assessment: 12:00 Reassessment: Received report from TEAGAN Taylor. devon 12:31 Reassessment: pt taken to CT via stretcher. devon 12:31 General: Appears in no apparent distress. comfortable, Behavior is calm, cooperative, mb9 appropriate for age. Pain: Denies pain. Neuro: Small Agitation-Sedation Scale (RASS): 0 - Alert and Calm Level of Consciousness is awake, alert, obeys commands, Oriented to person, place, time, situation, Appropriate for age. Cardiovascular: Heart tones S1 S2 present Capillary refill is > 3 seconds is sluggish Patient's skin is warm and dry. Rhythm is regular. Respiratory: Airway is patent Respiratory effort is even, unlabored, Respiratory pattern is regular, symmetrical, Breath sounds are clear bilaterally. GI: Abdomen is round non-distended, Bowel sounds present X 4 quads. Abd is soft and non tender X 4 quads. : Parent/caregiver report the patient having "she holds her pee a lot because she's scared that she's going to fall when she goes to the bathroom". Derm: Derm: Skin is normal, Skin temperature is warm. Musculoskeletal: Range of motion: limited in bilateral upper and lower extremities. 13:30 Reassessment: No changes from previously documented assessment. Patient and/or family mb9 updated on plan of care and expected duration. Pain level reassessed. Patient is alert, oriented x 3, equal unlabored respirations, skin warm/dry/pink. 14:27 Reassessment: Dr. Roblero at bedside speaking to daughter and pt about results. mb9 14:59 Reassessment: No changes from previously documented assessment. Patient and/or family mb9 updated on plan of care and expected duration. Pain level reassessed. Patient is alert, oriented x 3, equal unlabored respirations, skin warm/dry/pink. Vital Signs: 11:37 BP 125 / 56; Pulse 78; Resp 17; Temp 98.2; Pulse Ox 95% on R/A; Weight 106.59 kg; hb Height 5 ft. 6 in. (167.64 cm); Pain 0/10; 12:43 BP 115 / 54; Pulse 79; Resp 16; Pulse Ox 96% on R/A; Pain 0/10; mb9 14:11 BP 125 / 61; Pulse 76; Resp 18; Pulse Ox 95% on R/A; Pain 0/10; mb9 15:32 BP 123 / 52; Pulse 74; Resp 18; Pulse Ox 100% ; Pain 0/10; mb9 11:37 Body Mass Index 37.93 (106.59 kg, 167.64 cm) ED Course: 11:36 Patient arrived in ED. hb 11:38 Arm band placed on Patient placed in an exam room. ph 11:39 Freddy Roblero MD is Attending Physician. kdr 11:40 Triage completed. hb 11:40 Patient has correct armband on for positive identification. Placed in gown. Bed in low ph position. Call light in reach. Side rails up X2. Client placed on continuous cardiac and pulse oximetry monitoring. NIBP monitoring applied. Door closed. Noise minimized. Warm blanket given. 12:13 Dory Garcia, RN is Primary Nurse. mb9 12:30 Basic Metabolic Panel Sent. mb9 12:30 CBC with Diff Sent. mb9 12:30 Troponin HS Sent. mb9 12:34 No provider procedures requiring assistance completed. Missed attempt(s): 22 gauge in mb9 right hand. Bleeding controlled, band aid applied, catheter tip intact. 12:38 CT Head Brain wo Cont In Process Unspecified. EDMS 12:57 XRAY Chest (1 view) In Process Unspecified. EDMS 12:57 Knee Right 3 View XRAY In Process Unspecified. EDMS 13:05 Straight cath inserted, using sterile technique, 18 Fr. Specimen obtained. Returned mb9 clear yellow urine. Patient tolerated well. 13:14 Urine Culture Sent. mb9 15:32 Patient did not have IV access during this emergency room visit. mb9 Administered Medications: No medications were administered Medication: 11:39 VIS not applicable for this client. ph Output: 13:15 Urine: 600ml (Straight Cath); Total: 600ml. mb9 Outcome: 15:09 Discharge ordered by . kdr 15:33 Discharged to home via wheelchair. mb9 15:33 Condition: stable 15:33 Discharge instructions given to patient, family, Instructed on discharge instructions, follow up and referral plans. Demonstrated understanding of instructions, follow-up care, medications, Prescriptions given X 3. 15:33 Patient left the ED. mb9 Signatures: Dispatcher [employer] EDMS Freddy Roblero MD MD [facility] Dionne Barnett RN RN Claudia Diaz RN RN Dory Garcia, TEAGAN RN mb9 Corrections: (The following items were deleted from the chart) 11:45 11:37 BP 102 / 46; Pulse 78bpm; Resp 17bpm; Pulse Ox 95% RA; Temp 98.2F; 106.59 kg; hb Height 5 ft. 6 in.; BMI: 37.9; Pain 0/10; hb
[2022-04-17 15:38] VITALS: TEMP 98.2
[2022-04-17 15:42] VITALS: BP 123/52; O2SAT 100
--- NOTE | 2022-04-20 17:07 | EKG ---
Test Date: 2022-04-17 Test Time: 11:53:08 Nuisance [employer] Control Agent: PH MEASUREMENT RESULTS: Intervals: Rate: 78 VT: 290 QRSD: 78 QT: 380 QTc: 433 [facility]: P: 59 VT: 290 QRS: -1 T: 102 INTERPRETIVE STATEMENTS: Sinus rhythm with sinus arrhythmia with 1st degree AV block Cannot rule out Anterior infarct, age undetermined Abnormal ECG Compared to ECG 03/22/2022 15:21:53 T-wave abnormality no longer present Possible ischemia no longer present Myocardial infarct finding still present Electronically Signed On 04-20-22 16:59:33 SSIS ARCHITECT by Ean Beavers
== END 2022-04-17 15:33 | disposition home or self-care (01) ==
LOC: ER 11:35
DX: R53.1 Weakness (principal); R47.01 Aphasia; R13.10 Dysphagia, unspecified; M13.861 Other specified arthritis, right knee; I10 Essential (primary) hypertension; Z88.2 Allergy status to sulfonamides
CPT/HCPCS: 36415; 51702; 70450; 71045; 80048; 81003; 84484; 85025; 87086; 87088; 93005; 99284

== ENCOUNTER 2022-04-19 10:35 | Day surgery (SDC) | payer OTHER ==
[2022-04-19] MEDS ORDERED: SOD FERRIC GLUC COMPLX/SUCROSE 250 MG in NA CHLORIDE 0.9% 250 ML IV ONE (11:30)
[2022-04-19 12:36] VITALS: TEMP 97.3
[2022-04-19 12:37] VITALS: BMI 36.0
[2022-04-19 14:13] VITALS: BP 137/52; O2SAT 96
== END 2022-04-19 13:50 | disposition home or self-care (01) ==
LOC: DS 10:35
PROVIDERS: ATTEND Internal Medicine
DX: D50.8 Other iron deficiency anemias (principal); N18.30 Chronic kidney disease, stage 3 unspecified; I50.32 Chronic diastolic (congestive) heart failure; R06.02 Shortness of breath; I27.20 Pulmonary hypertension, unspecified; I12.9 Hypertensive chronic kidney disease with stage 1 through stage 4 chronic kidney disease, or unspecified chronic kidney disease
CPT/HCPCS: 96365; 96366; J2916; J7050

== ENCOUNTER 2022-05-17 07:18 | Emergency (ER) | payer OTHER ==
--- OUTSIDE RECORDS SUMMARY | 2022-05-17 07:36 | XMS REPORT | Continuity of Care Document ---
:1940 Author Organization [facility] t Address [address] [place] [address] Care Team Providers Name Role Phone ADDIE SLAUGHTER Primary Care Physician Unavailable Marie Esqueda Attending Clinician Unavailable Addie SLAUGHTER Attending Clinician Unavailable Bryce GARNETT, Ramiro Waller Attending Clinician [phone] ASTRID WOODY Attending Clinician Unavailable Luís Attending Clinician Unavailable Toñito Attending Clinician Unavailable MARIO PLATA Attending Clinician Unavailable MARIO PLATA Attending Clinician Unavailable Mario Plata DO Attending Clinician [facility] Attending Clinician Unavailable Senthil Schmidt MD Attending Clinician SETNHIL SCHMIDT Attending Clinician Unavailable SENTHIL SCHMIDT Attending Clinician Unavailable Harvey Jackman MD Attending Clinician Joann Gorman MD Attending Clinician JOANN GORMAN Attending Clinician Unavailable Alicia_A_AH Attending Clinician Unavailable RAMIRO JIMÉNEZ I. Admitting Clinician Unavailable ASTRID WOODY Admitting Clinician Unavailable Enoc_T Admitting Clinician Unavailable Harjit_S_AH Admitting Clinician Unavailable JOANN GORMAN Admitting Clinician Unavailable Alicia_A_AH Admitting Clinician Unavailable Payers Payer Name Policy Type Policy Number Effective Date Expiration Date S masoud [facility] [id number] 2020 00:00:00 HAYTI [id number] HEALTHCARE (MEDICARE REPLACEMENT/ADVA NTAGE - PPO) [facility] [id number] 2019 [place] 00:00:00 (MEDICARE REPLACEMENT/ADVA NTAGE - HMO) [employer]LL[employer]/AARP [id number] 2021 MCARE ADV CHOICE 00:00:00 PPO AARP [facility] 53 [id number] 2021 Common ADVANTAGE 00:00:00 [facility] [place] [facility] [id number] 2019 Common 00:00:00 [facility] Problems Condition Condition Condition Status Onset Resolution Last Treating Co mments Source Name Details Category Date Date Treatment Clinician Date Body mass Body Mass Problem Active Zayda merino index 30+ Index 30+ 2-09 Fami ly - obesity - Obesity 00:00: Prac tic 00 e Neuropathy Neuropathy Problem Active [facility] due to Due to 2 Family diabetes Diabetes 00:00: Practi c mellitus Mellitus 00 e Long-term Long-term Problem Active Zayda merino current Current 04-29 Family use of Use of 00:00: Practic insulin Insulin 00 e Tinea Tinea Problem Active [place] pedis Pedis 2- Family 00:00: Practic 00 e 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 2-09 Family mellitus Mellitus 00:00: Practi c 00 e Speech Speech Disease Active 2021-[address] [facility] abnormalit abnormalit 1-04 Susu kes y y 00:00: Medical 00 Center CAD CAD Disease Active [facility] (coronary (coronary 4-15 [place] s artery artery 00:00: Medical disease) disease) 00 Center No known No known Disease Unive rs active active ity of problems problems [facility] [id number] Left eye Problem Com mon 33584 pain [facility] Gastropare Gastropare Problem C ommon sis sis [facility] 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 - [facility] translumin angioplast St al y implant [facility] coronary and graft Medic al angioplast Center y [id number] Transient Problem Com mon ischemic Spirit attack [facility] [id number] Stage 3 Problem Commo n chronic Spirit kidney - [facility], [facility] whether Medical stage 3a Center or 3b CKD [id number] Chronic Problem Common obstructiv [facility] e - [facility] pulmonary [facility] Medica l d COPD Center type [id number] Pain, [place] Commo n 37528 joint, [facility] knee, - [facility] right [facility] [id number] Pain, Problem Commo n 11733 joint, [facility] knee, left [facility] Arthritis Arthritis Problem Com mon of right of knee, [facility] knee right [facility] Arthritis Arthritis Problem Com mon of left of knee, [facility] knee left [facility] [id number] Need for Problem Comm on assistance Spirit due to - CHI unsteady [facility] [id number] Constipati Problem Com mon on, Spirit unspecifie - [facility] [id number] Chronic Problem Common bronchitis Spirit , - CHI unspecifie [facility] chronic [facility] bronchitis Medica l type Center [id number] Gastroesop Problem Co mmon hageal Spirit reflux - [facility], [facility] s presence Medica l not Center specified [id number] Essential Problem Comm on hypertensi Spirit on [facility] [id number] Mixed Problem Common hyperlipid Spirit emia [facility] [id number] Lymphedema Problem C ommon [id number] of both Spirit lower [facility] extremitie [facility] [id number] Iron Problem Common deficiency Spirit anemia, - CHI unspecifie d iron [facility] deficiency [facility] type [id number] Glaucoma Problem Commo n of both Spirit eyes, - CHI unspecifie St d glaucoma [facility] [place] [id number] Diabetic Problem Comm on autonomic Spirit neuropathy - CHI associated St with type [facility] 2 diabetes [facility] [id number] Current Problem Common mild Spirit episode of - [facility] major St depressive [facility] disorder, Medical unspecifie Center d whether recurrent [id number] 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 [facility]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 [id number] 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 [facility] autonomic Medical (poly)neur Center opathy [id number] Severe Problem Common major Spirit depression - CHI [facility] [id number] Depression Problem Co mmon with Spirit anxiety - CHI [facility] [id number] Anxiety Problem Common Spirit - CHI [facility] [id number] Primary Problem Commo n osteoarthr Spirit itis of - CHI both knees [facility] [id number] Obstructiv Problem Com mon e sleep Spirit apnea - CHI syndrome [facility] [id number] Hypokalemi Problem Com mon a Spirit - CHI [facility] [id number] 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 [facility] coronary Medical artery Center without angina pectoris [id number] Type 2 Problem Common diabetes Spirit mellitus - CHI without St complicati [facility] [id number] History of Problem Co mmon glaucoma Spirit - [facility] CAD CAD Disease Active [facility] (coronary (coronary [facility] artery artery Medical disease) disease) Center Insulin Insulin Disease Active [facility] dependent dependent [facility] diabetes diabetes [facility] Center 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 Overview: [facility] Formattin [facility] g of this Medical note Center might [...] s Sulfa DA Active [facility] (Sulfona 7- [place] mide 00:00: d Antibiot 00 Medical ics) Center NO KNOWN Drug Active Univers DRUG Class 4- ity of ALLERGIE 00:00: [place] S 00 Medical Branch No Known Propensi Active Univer s Drug ty to 06-19 ity of Allergie adverse 00:00: [place] s reaction 00 Medical s Branch NO KNOWN Allergy [facility] Substanc Substanc Active Unknown Commo n e with e with Spirit sulfonam sulfonam - CHI mateus mateus St structur [facility] e and e and Medical antibact antibact Center erial erial mechanis mechanis m of m of action action (substan (substan ce) ce) Family History Family Member Diagnosis Comments Start Date Stop Date Source Natural mother Cancer [facility] Social History Social Habit Start Date Stop Date Quantity Comments Source History of Common Spirit - Tobacco Use [facility] History SDOH [facility] Alcohol Std Medical Cente r Drinks History SDOH [facility] Alcohol [facility]inge Medical [facility] History SDOH [facility] Alcohol Comment Medical C enter History SDOH [facility] Transport Non-Med Medical Center History SDOH [facility] Housing Places Medical Ce nter Lived Exposure to 2022-02-13 2022-02-23 Not sure [facility] SARS-CoV-2 00:00:00 10:23:00 [place] [facility] (event) Branch History SDOH 2022-01-23 2022-01-[address] [facility] Transport Med 00:00:00 00:00:[address] History SDOH 2022-01-23 2022-01-[address] [facility] Housing Unable to 00:00:00 00:00:00 Medical Center Pay History SDOH 2022-01-23 2022-01-[address] [facility] Housing Homeless 00:00:00 00:00:00 [facility] Last Year Alcohol intake 2022-01-23 2022-01-[address] Leah es 00:00:00 00:00:00 non-drinker Medical Kwasi seth (finding) History SDOH 2020-07-04 2020-07-[address] [facility] Alcohol Frequency 00:00:00 00:00:00 [facility] Tobacco use and 2020-07-03 2020-07-[address] Susu kes exposure 00:00:00 00:00:00 [facility] Sex Assigned At [address] Cristobal kes 00:00:00 00:00:00 [facility] Smoking Status Start Date Stop Date Source Tobacco smoking consumption [facility] Branch Never smoker [facility] Medications Ordered Filled Start Stop Current Ordering Indication Dosage Frequency Signature Comments Components Source Medication Medication Date Date Medication? Clinician (SIG) Name Name Lidocaine Lidocaine No 10mL Com mon 1-30 Spirit 00:00: - [facility] Kenalog Kenalog No 40mg Common (Triamcinol (Triamcinol 1-30 S pirit one) one) 00:00: - [facility] Pregabalin Pregabalin 2021-03 No Pregabalin 75 MG [...] mouth ity of tablet 10:44: in the [place] morning. Medical Branch fluticasone 2021-03 Yes 1 puff Univ ers propion-jaylene 2-06 ity of meteroL 10:44: [place] (ADVAIR 05 Medical DISKUS) Branch 250-50 mcg/dose [...] mouth ity of tablet 10:44: in the [place] morning. Medical Branch fluticasone 2021-03 Yes 1 puff Univ ers propion-jaylene 2-06 ity of meteroL 10:44: [place] (ADVAIR 05 Medical DISKUS) Branch 250-50 mcg/dose [...] mouth ity of tablet 10:44: in the [place] morning. Medical Branch fluticasone 2021-03 Yes 1 puff Univ ers propion-jaylene 2-06 ity of meteroL 10:44: [place] (ADVAIR 05 Medical DISKUS) Branch 250-50 mcg/dose [...] mouth ity of tablet 10:44: in the morning. Medical Branch fluticasone 2021-03 Yes 1 [...] 00 Medical unit/mL (3 Branch mL) injection cyanocobala 2021-03 Yes 5000ug Take 5,000 Univers [...] by mouth ity of tablet 00:00: every 00 evening. Medical Branch cyanocobala 2021-03 Yes [...] 00:00: every [place] 00 evening. Medical Branch rosuvastati 2021-03 Yes 40mg Take 40 mg Univers n 40 mg 1-18 by mouth ity of tablet 00:00: in the 00 morning. Medical Branch rosuvastati 2021-03 Yes 40mg Take 40 mg Univers n 40 mg 1-18 by mouth ity of tablet 00:00: in the 00 morning. Medical Branch rosuvastati 2021-03 Yes 40mg Take 40 mg Univers n 40 mg 1-18 by mouth ity of tablet 00:00: in the [place] 00 morning. [facility] Branch rosuvastati 2021-03 Yes 40mg Take 40 mg Univers n 40 mg 1-18 by mouth ity of tablet 00:00: in the [place] 00 morning. [facility] Branch Benzonatate Benzonatate 2021-03- No TID Benzonatat 200 MG 200 MG 04-07 e 200 MG 00:00: 00:00 00 :00 Benzonatate Benzonatate 2021-03- No TID Benzonatat 200 MG 200 MG 04-07 e 200 MG 00:00: 00:00 00 :00 FreeStyle FreeStyle 2021-03 No FreeStyle Jonna 2 Jonna 2 1-14 [place] 2 [place] 00 FreeStyle FreeStyle 2021-03 No FreeStyle Jonna Jonna 1-14 Jonna [place] - 00 FreeStyle FreeStyle 2021-03 No FreeStyle Jonna 2 Jonna 2 1-14 [place]onna 2 [place] 00:[place] - 00 FreeStyle FreeStyle 2021- No FreeStyle Jonna Jonna 1-14 Jonna [place] - 00:[place]: [place] - 00 [facility] 2021-03 Yes Univers 0.01 % 1-10 ity of ophthalmic 00:00: [place] drops 00 [facility] 2021-03 Yes Univers 0.01 % 1-10 ity of ophthalmic 00:00: [place] drops 00 [facility] 2021-03 Yes Univers 0.01 % 1-10 ity of ophthalmic 00:00: [place] drops 00 [facility] 2021-03 Yes Univers 0.01 % 1-10 ity of ophthalmic 00:00: [place] drops 00 [facility] aspirin 81 2021-03 Yes 81mg QD Take [address] MG EC 1-07 by mouth Lukes tablet 18:06: daily. [address] fluticasone 2021-03 Yes 2{puff} QD Inhale [address] propion-jaylene 1-07 puffs by Luke s meteroL 18:06: mouth via Medic al (ADVAIR) inhaler Center 250-50 daily . mcg/dose diskus inhaler amLODIPine 2021-03 Yes 5mg QD Take [address] (NORVASC) 5 1-07 by mouth Luke s MG tablet 18:06: daily. Medica l 48 Center dorzolamide 2021-03 Yes 1[drp] Q.[id number] [address] (TRUSOPT) 2 1-07 [id number] (three) Lukes % 18:06: 3D times Medical [...] MG 18:06: mouth Medical tablet 48 daily. [place] cyanocobala 2021-03 Yes 5000ug QD Take 5,[address] min 1-07 mcg by Lukes (vitamin 18:06: mouth Medical B-12) 1000 48 daily. [place] MCG tablet aspirin 81 2021-03 Yes 81mg [...] MG tablet 18:06: daily. Medica l 48 [place] dorzolamide 2021-03 Yes 1[drp] Q.05667231 [address] (TRUSOPT) 2 1-07 [id number] (three) Lukes % 18:06: 3D times Medical ophthalmic 48 daily. [place] solution insulin 2021-03 Yes 70U Q.5D Inject [...] MG 18:06: mouth Medical tablet 48 daily. [place] cyanocobala 2021-03 Yes 5000ug QD Take 5,[address] min 1-07 mcg by Lukes (vitamin 18:06: mouth Medical B-12) 1000 48 daily. [place] MCG tablet aspirin 81 2021-03 Yes 81mg [...] MG tablet 18:06: daily. Medica l 48 [place] dorzolamide 2021-03 Yes 1[drp] Q.14873556 [address] (TRUSOPT) 2 1-07 [id number] (three) Lukes % 18:06: 3D times Medical ophthalmic 48 daily. [place] solution insulin 2021-03 Yes 70U Q.5D Inject [...] B-12) 1000 48 daily. Center MCG tablet aspirin 81 2021-03 Yes 81mg [...] l 48 Center dorzolamide 2021-03 Yes 1[drp] Q.72388302 [address] (TRUSOPT) 2 -07 [id number] (three) Lukes % 18:06: 3D times Medical [...] MG 18:06: mouth Medical tablet 48 daily. [place] cyanocobala 2021-03 Yes 5000ug QD Take 5,[address] min 1-07 mcg by Lukes (vitamin 18:06: mouth Medical B-12) 1000 48 daily. [place] MCG tablet aspirin 81 2021-03 Yes 81mg [...] l 48 Center dorzolamide 2021-03 Yes 1[drp] Q.87140621 [address] (TRUSOPT) 2 1-07 [id number] (three) Lukes % 18:06: 3D times Medical [...] [address] (LASIX) 40 07 by mouth Lukes MG tablet 18:06: as needed Med ical 48 (swelling) Center . carvediloL 2021-03 Yes 25mg Q.5D Take [address] (COREG) 25 07 by mouth 2 Leah es MG tablet 18:06: (two) Medical 48 times Center daily. traZODone 2021-03 Yes 50mg QD Take [address] (DESYREL) 07 by mouth Lukes 50 MG 18:06: nightly. Medical tablet 48 Center sertraline 2021-03 Yes 100mg QD Take [address] (ZOLOFT) -07 mg by Lukes 100 MG 18:06: mouth Medical tablet 48 daily. [place] cyanocobala 2021-03 Yes 5000ug QD Take 5,[address] min -07 mcg by Lukes (vitamin 18:06: mouth Medical B-12) 1000 48 daily. [place] MCG tablet gabapentin 2021-03- No 800mg Q.[id number] Take [address] (NEURONTIN) 03-27 [id number] mg by Lukes 800 MG 16:45: 00:00 [...] daily. Medic al 56 :00 Center pregabalin 2021-03- No 150mg Q.5D Take [address] (LYRICA) 101-25 mg by Lukes 150 MG 16:45: 00:00 [...] hours as needed for Pain. gabapentin 2021-03 800mg Q.[id number] Take [address] (NEURONTIN) 03-27 [id number] mg by Lukes 800 MG 16:45: 00:00 [...] [facility] (PLAVIX) 75 03-27 by mouth Leha es mg tablet 16:45: 00:00 daily Ran [...] needed for Pain. gabapentin 2021-03 No 800mg Q.[id number] Take [address] (NEURONTIN) 03-27 [id number] mg by Lukes 800 MG 16:45: 00:00 [...] hours as needed for Pain. gabapentin 2021-03 800mg Q.[id number] Take [address] (NEURONTIN) 03-27 [id number] mg by Lukes 800 MG 16:45: 00:00 3D mouth 3 Medical tablet 56 :00 (three) Center times daily. metoprolol 2021-03 100mg Q.5D Take [address] [...] needed for Pain. gabapentin 2021-03 No 800mg Q.[id number] Take [address] (NEURONTIN) 03-27 [id number] mg by Lukes 800 MG 16:45: 00:00 [...] 56 :00 (two) Center times daily. clopidogreL 2021-03- No 75mg QD Take 75 [...] 50mg Take [address] (ULTRAM) 50 -07 tablet (50 Susu kes mg tablet 00:00: [...] for 3 days. metroNIDAZO 2021-03- No 500mg Q.[id number] Take [address] LE (FLAGYL) 03-27 [id number] tablet Lukes 500 MG 00:00: 23:59 3D (500 mg Medical tablet 00 :00 total) by Center mouth 3 (three) times daily for 3 days. cefdinir 2021-03- No 300mg Q.5D Take 1 [facility]I S t (OMNICEF) 03-27 capsule Lukes 300 MG 00:00: 23:59 (300 mg Medical capsule 00 :00 total) by Center mouth 2 (two) times daily for 3 days. metroNIDAZO 2021-03- No 500mg Q.[id number] Take [address] LE (FLAGYL) 03-27 [id number] tablet Lukes 500 MG 00:00: 23:59 3D (500 mg Medical tablet 00 :00 total) by Center mouth 3 (three) times daily for 3 days. cefdinir 2021-03- No 300mg Q.5D Take 1 [facility] t (OMNICEF) 03-27 capsule Lukes 300 MG 00:00: 23:59 (300 mg Medical capsule 00 :00 total) by Center mouth 2 (two) times daily for 3 days. metroNIDAZO 2021-03- No 500mg Q.[id number] Take [address] LE (FLAGYL) 03-27 [id number] tablet Lukes 500 MG 00:00: 23:59 3D (500 mg Medical tablet 00 :00 total) by Center mouth 3 (three) times daily for 3 days. cefdinir 2021-03- No 300mg Q.5D Take 1 [facility] t (OMNICEF) 03-2710 capsule Lukes 300 MG 00:00: 23:59 (300 mg Medical capsule 00 :00 total) by Center mouth 2 (two) times daily for 3 days. metroNIDAZO 2021-03- No 500mg Q.[id number] Take [address] LE (FLAGYL) 03-27 [id number] tablet Lukes 500 MG 00:00: 23:59 3D (500 mg Medical tablet 00 :00 total) by Center mouth 3 (three) times daily for 3 days. cefdinir 2021-03 No 300mg Q.5D Take 1 [facility] t (OMNICEF) 03-27 capsule Lukes 300 MG 00:00: 23:59 (300 mg Medical capsule 00 :00 total) by Center mouth 2 (two) times daily for 3 days. metroNIDAZO 2021-03- No 500mg Q.[id number] Take [address] LE (FLAGYL) 03-27 [id number] tablet Lukes 500 MG 00:00: 23:59 3D [...] mouth ity of tablet 00:00: in the [place] morning. Medical Branch carvediloL 2021-03 Yes 25mg Take 25 mg U nivers 25 mg 0-27 by mouth ity of tablet 00:00: in the [place] morning. Medical Branch carvediloL 2021-03 Yes 25mg Take 25 mg U nivers 25 mg 0-27 by mouth ity of tablet 00:00: in the [place] morning. Medical Branch carvediloL 2021-03 Yes 25mg Take 25 mg U nivers 25 mg 0-27 by mouth ity of tablet 00:00: in the [place] morning. Medical Branch pregabalin 2021-03 Yes 75mg Take 75 mg U nivers 75 mg 0-01 by mouth ity of capsule 00:00: in the [place] morning. Medical Branch pregabalin 2021-03 Yes 75mg Take 75 mg U nivers 75 mg 0-01 by mouth ity of capsule 00:00: in the [place] morning. Medical Branch pregabalin 2021-03 Yes 75mg Take 75 mg U nivers 75 mg 0-01 by mouth ity of capsule 00:00: in the [place] morning. Medical Branch pregabalin 2021-03 Yes 75mg Take 75 mg U nivers 75 mg 0-01 by mouth ity of capsule 00:00: in the [place] 00 morning. Medical Branch Novofine Novofine No Novofine Pen Needle Pen Needle 9-22 Pen Needle 32G X 6 MM 32G X 6 MM 00:00: 32G X 6 MM 00 Pregabalin Pregabalin 2-0 No 1{capsu BID Pregabalin 75 MG 75 MG 9- le} 75 MG 00:00: 00 Novofine Novofine [...] MG 9 le} 75 MG 00:00: 00 amLODIPine 2021-0 Yes 10mg Take 10 mg U nivers 10 mg 9-22 by mouth ity of tablet 00:00: in the [place] 00 morning. Medical Branch amLODIPine 2021-0 Yes 10mg Take 10 mg U nivers 10 mg 9-22 by mouth ity of tablet 00:00: in the [place] 00 morning. Medical Branch amLODIPine 2-0 Yes 10mg Take 10 mg U nivers 10 mg 9-22 by mouth ity of tablet 00:00: in the [place] 00 morning. Medical Branch amLODIPine 2-0 Yes 10mg Take 10 mg U nivers 10 mg 9-22 by mouth ity of tablet 00:00: in the [place] 00 morning. Medical Branch furosemide 2022-0 Yes 40mg Take 40 mg U nivers 40 mg 4-24 by mouth ity of tablet 00:00: in the [place] 00 morning. Medical Branch furosemide 2022-0 Yes 40mg Take 40 mg U nivers 40 mg 4-24 by mouth ity of tablet 00:00: in the [place] 00 morning. Medical Branch furosemide 2022-0 Yes 40mg Take 40 mg U nivers 40 mg 4-24 by mouth ity of tablet 00:00: in the [place] 00 morning. Medical Branch furosemide 2022-0 Yes 40mg Take 40 mg U nivers 40 mg 4-24 by mouth ity of tablet 00:00: in the [place] 00 morning. Medical Branch HumaLOG HumaLOG 2-0 No HumaLOG KwikPen 200 [...] 5mg QD Take [address] (PRINIVIL,Z 07-11 tablet (5 Susu kes ESTRIL) 5 00:00: 23:59 mg total) Me dical MG tablet 00 :00 by mouth Center daily. lisinopriL 2021- No 5mg QD Take [address] (PRINIVIL,Z 07-11 tablet (5 Susu kes ESTRIL) 5 00:00: 23:59 mg total) Me dical MG tablet 00 :00 by mouth Center daily. lisinopriL 2021- No 5mg QD Take [address] (PRINIVIL,Z 07-11- tablet (5 Susu kes ESTRIL) 5 00:00: 23:59 mg total) Me dical MG tablet 00 :00 by mouth Center daily. lisinopriL 2021- No 5mg QD Take [address] (PRINIVIL,Z 07-11-23 tablet (5 Susu kes ESTRIL) 5 00:00: 23:59 mg total) Me dical MG tablet 00 :00 by mouth Center daily. lisinopriL 2021- No 5mg QD Take [address] (PRINIVIL,Z 07-11-23 tablet (5 Susu kes ESTRIL) 5 00:00: 23:59 mg total) Me dical MG tablet 00 :00 by mouth Center daily. lisinopriL 2021- No 5mg QD Take [address] (PRINIVIL,Z 07-11-23 tablet (5 Susu kes ESTRIL) 5 00:00: [...] Medica l 39 Center dorzolamide Yes 1[drp] Q.[id number] [address] (TRUSOPT) 2 4-22 [id number] (three) Lukes % 12:18: 3D times Medical ophthalmic 39 daily. Center solution gabapentin Yes 800mg Q.[id number] Take [address] (NEURONTIN) 4-22 [id number] mg by L ukes 800 MG 12:18: [...] Spir it every - CHI night as [facility] Levemir Levemir No BID Levemir FlexTouch FlexTouch FlexTouch 100 UNIT/ML 100 UNIT/ML 100 UNIT/ML FreeStyle FreeStyle No FreeStyle Jonna 2 Jonna 2 [place] 2 [place] - Continuous Continuous No Continuous Glucose Glucose [...] FreeStyle FreeStyle No FreeStyle Jonna Jonna Jonna [place] - Metoclopram Metoclopram No 1{table TID Metoclopra [...] FreeStyle Jonna 2 Jonna 2 [place] 2 [place] - Continuous Continuous No Continuous Glucose Glucose [...] FreeStyle FreeStyle No FreeStyle Jonna Jonna Jonna [place] - Metoclopram Metoclopram No 1{table TID Metoclopra [...] FreeStyle Jonna 2 Jonna 2 [place] 2 [place] - traZODone traZODone No 1{table QD traZODone [...] FreeStyle FreeStyle No FreeStyle Jonna Jonna Jonna [place] - Metoclopram Metoclopram No 1{table TID Metoclopra [...] FreeStyle Jonna 2 Jonna 2 Jonna 2 [place] - Continuous Continuous No Continuous Glucose Glucose [...] FreeStyle FreeStyle No FreeStyle Jonna Jonna Jonna [place] - Metoclopram Metoclopram No 1{table TID Metoclopra [...] FreeStyle Jonna 2 Jonna 2 [place]onna 2 [place] - Continuous Continuous No Continuous Glucose Glucose [...] Diskus 250-50 250-50 250-50 MCG/DOSE MCG/DOSE MCG/DOSE Furosemide Furosemide No 1{table QD Furosemide 40 MG 40 MG t} 40 MG FreeStyle FreeStyle No FreeStyle Jonna 2 Jonna 2 [place] 2 [place] - Advair Advair No 1{puff} BID Advair Diskus Diskus Diskus 250-50 250-50 250-50 MCG/DOSE MCG/DOSE MCG/DOSE Carvedilol Carvedilol No 1{table BID Carvedilol 25 MG 25 MG t_with_ 25 MG food} Metoclopram Metoclopram No 1{table TID Metoclopra mateus HCl 5 mateus HCl 5 t_befor mide HCl 5 MG MG e_meals MG } amLODIPine amLODIPine No 1{table QD amLODIPine Besylate 10 Besylate 10 t} Besylate MG MG 10 MG Combigan Combigan No Combigan 0.2-0.5 % 0.2-0.5 % 0.2-0.5 % Ondansetron Ondansetron No Ondansetro HCl 4 MG HCl 4 MG n HCl 4 MG Clopidogrel Clopidogrel No 1{table QD Clopidogre Bisulfate Bisulfate t} l 75 MG 75 MG Bisulfate 75 MG Pantoprazol Pantoprazol No Pantoprazo e Sodium 40 e Sodium 40 le Sodium MG MG 40 MG Sertraline Sertraline No Sertraline HCl 100 MG HCl 100 MG HCl 100 MG FreeStyle FreeStyle No FreeStyle Jonna Jonna Jonna [place] - Levemir Levemir No BID Levemir FlexTouch FlexTouch FlexTouch 100 UNIT/ML 100 UNIT/ML 100 UNIT/ML Levemir Levemir No BID Levemir FlexTouch FlexTouch FlexTouch 100 UNIT/ML 100 UNIT/ML 100 UNIT/ML Lumigan Lumigan No 1{drop_ QD Lumigan 0.01 % 0.01 % into_af 0.01 % fected_ eye_in_ the_eve daron} Ipratropium Ipratropium No 3{ml_as QID Ipratropiu -Albuterol -Albuterol _needed m-Albutero 0.5-2.5 (3) 0.5-2.5 (3) } l 0.5-2.5 MG/3ML MG/3ML (3) MG/3ML metFORMIN metFORMIN No 2{table BID metFORMIN HCl 500 MG HCl 500 MG t_with_ HCl 500 MG a_meal} traMADol traMADol No 1{table traMADol HCl 50 MG HCl 50 MG t_as_ne HCl 50 MG eded} traZODone traZODone No 1{table QD traZODone HCl 50 MG HCl 50 MG t_at_be HCl 50 MG dtime_a s_neede d} Rosuvastati Rosuvastati No 1{table QD Rosuvastat n Calcium n Calcium t} in Calcium 40 MG 40 MG 40 MG Spironolact Spironolact No Spironolac one 25 MG one 25 MG tone 25 MG Continuous Continuous No Continuous Glucose Glucose Glucose Monitor Sup Monitor Sup Monitor - - Sup - Novofine Novofine No Novofine Pen Needle Pen Needle Pen Needle 32G X 6 MM 32G X 6 MM 32G X 6 MM Sertraline Sertraline No 1{table QD Sertraline HCl 100 MG HCl 100 MG t} HCl 100 MG Magnesium Magnesium No 1{capsu QD Magnesium 400 MG 400 MG le_with 400 MG _a_meal } Carvedilol Carvedilol No 1{table BID Carvedilol 25 MG 25 MG t_with_ 25 MG food} Aspirin 81 Aspirin 81 No 1{table QD Aspirin 81 MG MG t} MG Nitroglycer Nitroglycer No Nitroglyce in 0.4 MG in 0.4 MG rin 0.4 MG Albuterol Albuterol No 3{ml_as QID Albuterol Sulfate Sulfate _needed Sulfate (2.5 (2.5 } (2.5 MG/3ML) MG/3ML) MG/3ML) 0.083% 0.083% 0.083% Nebulizer - Nebulizer - No Nebulizer - guaiFENesin guaiFENesin No 10{ml_a QID guaiFENesi -DM 100-10 -DM 100-10 s_neede n-DM MG/5ML MG/5ML d} 100-10 MG/5ML predniSONE predniSONE No 1{table BID predniSONE 20 MG 20 MG t} 20 MG Gabapentin Gabapentin No 1{table TID Gabapentin [...] FreeStyle FreeStyle No FreeStyle Jonna Jonna Jonna [place] - Lumigan Lumigan No 1{drop_ QD Lumigan [...] FreeStyle FreeStyle No FreeStyle Jonna Jonna Jonna [place] - traZODone traZODone No 1{table QD traZODone [...] FreeStyle FreeStyle No FreeStyle Jonna Jonna Jonna [place] - Furosemide Furosemide No 1{table QD Furosemide [...] FreeStyle FreeStyle No FreeStyle Jonna Jonna Jonna [place] - traMADol traMADol No 1{table traMADol HCl [...] FreeStyle FreeStyle No FreeStyle Jonna Jonna Jonna [place] - traMADol traMADol No 1{table traMADol HCl [...] FreeStyle FreeStyle No FreeStyle Jonna Jonna Jonna [place] - Combigan Combigan No Combigan 0.2-0.5 % [...] 400 MG le_with 400 MG _a_meal } Mike Chavisigan No 1{drop_ QD Lumigan 0.01 % 0.01 [...] FreeStyle Jonna 2 Jonna 2 Jonna 2 [place] - traMADol traMADol No 1{table traMADol HCl [...] FreeStyle FreeStyle No FreeStyle Jonna Jonna Jonna [place] - Furosemide Furosemide No 1{table QD Furosemide [...] FreeStyle Jonna 2 Jonna 2 Jonna 2 [place] - Advair Advair No 1{puff} BID Advair [...] FreeStyle FreeStyle No FreeStyle Jonna Jonna Jonna [place] - Nitroglycer Nitroglycer No Nitroglyce in 0.4 [...] MG FreeStyle FreeStyle No FreeStyle Jonna Jonna Jnona [place] - Metoclopram Metoclopram No 1{table TID Metoclopra [...] FreeStyle Jonna 2 Jonna 2 Jonna 2 [place] - Continuous Continuous No Continuous Glucose Glucose [...] FreeStyle FreeStyle No FreeStyle Jonna Jonna Jonna [place] - Metoclopram Metoclopram No 1{table TID Metoclopra [...] Calcium 40 MG 40 MG 40 MG amlodipine amlodipine No 1 Q1D amlodipine [place] 10 mg 10 mg 10 mg Family tablet Take tablet Take tablet Practic 1 tablet 1 tablet Take 1 e every day every day tablet by oral by oral every day route. route. by oral route. aspirin 81 aspirin 81 No 1 Q1D aspirin 81 [place] mg mg mg Family tablet,armani tablet,armani tablet,del Practic yed release yed release ayed e Take 1 Take 1 release tablet tablet Take 1 every day every day tablet by oral by oral every day route. route. by oral route. carvedilol carvedilol No 1 BID carvedilol [place] 25 mg 25 mg 25 mg Family tablet Take tablet Take tablet Practic 1 tablet 1 tablet Take 1 e twice a day twice a day tablet by oral by oral twice a route. route. day by oral route. Ferrocite Ferrocite No 1 Q1D Ferrocite [place] 324 mg (106 324 mg (106 324 mg Family mg iron) mg iron) (106 mg Prac tic tablet Take tablet Take iron) e 1 tablet 1 tablet tablet every day every day Take 1 by oral by oral tablet route. route. every day by oral route. furosemide furosemide No [address] [facility] 40 mg 40 mg 40 mg Family tablet Take tablet Take tablet Practic 1 tablet 1 tablet Take 1 e every day every day tablet by oral by oral every day route. route. by oral route. Humalog Humalog No 12slidi TID Humalog Zayda calderone Fransico Fransico Fransico Family KwikPen KwikPen scale KwikPen Pract ic (U-100) 100 (U-100) 100 dose(s) (U-100) e unit/mL unit/mL 100 subcutaneou subcutaneou unit/mL s half-unit s half-unit subcutaneo pen Inject pen Inject us 12 sliding 12 sliding half-unit scale doses scale doses pen Inject 3 times a 3 times a 12 sliding day by day by scale subcutaneou subcutaneou doses 3 s route. s route. times a day by subcutaneo us route. Humalog Humalog No Humalog Villag e KwikPen KwikPen KwikPen Family (U-100) (U-100) (U-100) Practi c Insulin 100 Insulin 100 Insulin e unit/mL unit/mL 100 subcutaneou subcutaneou unit/mL s GIve 12 s GIve 12 subcutaneo units units us GIve 12 before before units meals plus meals plus before CF 1:30: CF 1:30: meals plus TDD 50 TDD 50 CF 1:30: TDD 50 Levemir Levemir No 60unit( BID Levemir Zayda wilber FlexTouch FlexTouch s) FlexTouch Family U-100 U-100 U-100 Practic Insulin 100 Insulin 100 Insulin e unit/mL (3 unit/mL (3 100 mL) mL) unit/mL (3 subcutaneou subcutaneou mL) s pen s pen subcutaneo Inject 60 Inject 60 us pen units twice units twice Inject 60 a day by a day by units subcutaneou subcutaneou twice a s route. s route. day by subcutaneo us route. magnesium magnesium No magnesium [place] oxide 400 oxide 400 oxide 400 Family mg (241.3 mg (241.3 mg (241.3 Practic mg mg mg e magnesium) magnesium) magnesium) tablet Take tablet Take tablet by oral by oral Take by route. route. oral route. metformin metformin No 1 BID metformin [place] 500 mg 500 mg 500 mg Family tablet Take tablet Take tablet Practic 1 tablet 1 tablet Take 1 e twice a day twice a day tablet by oral by oral twice a route with route with day by meals for meals for oral route 90 days. 90 days. with meals for 90 days. Plavix 75 Plavix 75 No 1 Q1D Plavix 75 [place] mg tablet mg tablet mg tablet Family Take 1 Take 1 Take 1 Practic tablet tablet tablet e every day every day every day by oral by oral by oral route. route. route. pregabalin pregabalin No 1capsul BID pregabalin [facility] 75 mg 75 mg e(s) 75 mg Family capsule capsule capsule Practi c Take 1 Take 1 Take 1 e capsule capsule capsule twice a day twice a day twice a by oral by oral day by route. route. oral route. rosuvastati rosuvastati No 1capsul Q1D rosuvastat [facility] n 40 mg n 40 mg e(s) in 40 mg Famil y sprinkle sprinkle sprinkle Pra ctic capsule capsule capsule e Take 1 Take 1 Take 1 capsule capsule capsule every day every day every day by oral by oral by oral route. route. route. sertraline sertraline No 1 Q1D sertraline [place] 100 mg 100 mg 100 mg Family tablet Take tablet Take tablet Practic 1 tablet 1 tablet Take 1 e every day every day tablet by oral by oral every day route. route. by oral route. spironolact spironolact No 1 BID spironolac [place] one 25 mg one 25 mg tone 25 mg Family tablet Take tablet Take tablet Practic 1 tablet 1 tablet Take 1 e twice a day twice a day tablet by oral by oral twice a route. route. day by oral route. An Nolan No An [facility] SoloStar SoloStar SoloStar Fam catalina U-300 U-300 U-300 Practic Insulin 300 Insulin 300 Insulin e unit/mL unit/mL 300 (1.5 mL) (1.5 mL) unit/mL subcutaneou subcutaneou (1.5 mL) s pen GIve s pen GIve subcutaneo 60 units in 60 units in us pen AM and AM and GIve 60 increase as increase as units in directed: directed: AM and TDD 100 TDD 100 increase as directed: TDD 100 trazodone trazodone No [address] [facility] 50 mg 50 mg 50 mg Family tablet Take tablet Take tablet Practic 1 tablet 1 tablet Take 1 e every day every day tablet by oral by oral every day route. route. by oral route. Trelegy Trelegy No 2puff(s Q1D Trelegy Zayda wilber Ellipta 100 Ellipta 100 ) Ellipta Family mcg-62.5 mcg-62.5 100 Practic mcg-25 mcg mcg-25 mcg mcg-62.5 e powder for powder for mcg-25 mcg inhalation inhalation powder for Inhale 2 Inhale 2 inhalation puffs every puffs every Inhale 2 day by day by puffs inhalation inhalation every day route. route. by inhalation route. Trulicity Trulicity No 1.5mg Q1W Trulicity [facility] 1.5 mg/0.5 1.5 mg/0.5 1.5 mg/0.5 Family mL mL mL Practic subcutaneou subcutaneou subcutaneo e s pen s pen us pen injector injector injector Inject 1.5 Inject 1.5 Inject 1.5 mg every mg every mg every week by week by week by subcutaneou subcutaneou subcutaneo s route for s route for us route 30 days. 30 days. for 30 days. Vitamin B12 Vitamin B12 No [address] [facility] 500 mcg 500 mcg B12 500 Family tablet Take tablet Take mcg tablet Practic 1 tablet 1 tablet Take 1 e every day every day tablet by oral by oral every day route. route. by oral route. Vitamin D3 Vitamin D3 No 1capsul Q1D Vitamin D3 [facility] 50 mcg 50 mcg e(s) 50 mcg Family (2,000 (2,000 (2,000 Practic unit) unit) unit) e capsule capsule capsule Take 1 Take 1 Take 1 capsule capsule capsule every day every day every day by oral by oral by oral route. route. route. Immunizations Ordered Immunization Filled Immunization Date Status Commen ts Source Name Name FLUZONE HIGH DOSE FLUZONE HIGH DOSE 2022-01-14 Completed [facility] OVER 65 OVER 65 11:55:00 - [facility] FLUZONE HIGH DOSE FLUZONE HIGH DOSE 2022-01-14 Completed [facility] OVER 65 OVER 65 11:55:00 - [facility] FLUZONE HIGH DOSE FLUZONE HIGH DOSE 2022-01-14 Completed [facility] OVER 65 OVER 65 11:55:00 [facility] FLUZONE HIGH DOSE FLUZONE HIGH DOSE 2022-01-14 Completed [facility] OVER 65 OVER 65 11:55:00 - [facility] FLUZONE HIGH DOSE FLUZONE HIGH DOSE 2022-01-14 Completed [facility] OVER 65 OVER 65 11:55:00 - [facility] FLUZONE HIGH DOSE FLUZONE HIGH DOSE 2022-01-14 Completed [facility] OVER 65 OVER 65 11:55:00 - [facility] FLUZONE HIGH DOSE FLUZONE HIGH DOSE 2022-01-14 Completed [facility] OVER 65 OVER 65 11:55:00 - [facility] FLUZONE HIGH DOSE FLUZONE HIGH DOSE 2022-01-14 Completed [facility] OVER 65 OVER 65 11:55:00 [facility] FLUZONE HIGH DOSE FLUZONE HIGH DOSE 2022-01-14 Completed [facility] OVER 65 OVER 65 11:55:00 - [facility] FLUZONE HIGH DOSE FLUZONE HIGH DOSE 2022-01-14 Completed [facility] OVER 65 OVER 65 11:55:00 [facility] FLUZONE HIGH DOSE FLUZONE HIGH DOSE 2022-01-14 Completed [facility] OVER 65 OVER 65 11:55:00 [facility] FLUZONE HIGH DOSE FLUZONE HIGH DOSE 2022-01-14 Completed [facility] OVER 65 OVER 65 11:55:00 [facility] FLUZONE HIGH DOSE FLUZONE HIGH DOSE 2022-01-14 Completed [facility] OVER 65 OVER 65 11:55:00 - [facility] Vital Signs Vital Name Observation Time Observation Value Comments Source HEIGHT 2020-07-03 17:00:00 154.9 cm WEIGHT 2020-07-03 17:00:00 103.556 kg Height 2022-04-29 00:00:00 62 [in_i] [facility] BMI (Body Mass 2022-04-29 00:00:00 36 kg/m2 [facility] e Family Index) Practice BP Systolic 2022-04-29 00:00:00 104 mm[Hg] [facility] Body Weight 2022-04-29 00:00:00 197 [lb_av] [facility] BP Diastolic 2022-04-29 00:00:00 49 mm[Hg] [facility] height 2022-04-19 14:30:00 62 [in_i] [facility] weight 2022-04-19 14:30:00 231 [lb_av] [facility] temperature 2022-04-19 14:30:00 96.8 [degF] [facility] bmi 2022-04-19 14:30:00 42.25 kg/m2 [facility] blood pressure 2022-04-19 14:30:00 132 mm[Hg] [facility] - systolic [facility] blood pressure 2022-04-19 14:30:00 80 mm[Hg] [facility] - diastolic [facility] Systolic blood 2022-02-23 16:44:00 114 mm[Hg] [facility] pressure [facility] Diastolic blood 2022-02-23 16:44:00 72 mm[Hg] Unive rsity of pressure [facility] Heart rate 2022-02-23 16:44:00 76 /min [facility] Body height 2022-02-23 16:44:00 157.5 cm [facility] Body weight 2022-02-23 16:44:00 104.327 kg [facility] BMI 2022-02-23 16:44:00 42.07 kg/m2 [facility] Oxygen saturation in 2022-02-23 16:44:00 92 /min [facility] Arterial blood by [facility] Pulse oximetry Branch HEIGHT 2022-01-22 13:56:00 157.5 cm WEIGHT 2022-01-22 13:56:00 90.719 kg HEIGHT 2022-01-22 13:56:00 157.5 cm WEIGHT 2022-01-22 13:56:00 90.719 kg HEIGHT 2022-01-22 13:56:00 157.5 cm WEIGHT 2022-01-22 13:56:00 90.719 kg height 2022-01-14 10:20:00 62 [in_i] [facility] weight 2022-01-14 10:20:00 230.0 [lb_av] [facility] temperature 2022-01-14 10:20:00 97.3 [degF] [facility] bmi 2022-01-14 10:20:00 42.06 kg/m2 [facility] oximetry 2022-01-14 10:20:00 95 % [facility] respiratory rate 2022-01-14 10:20:00 16 /min [facility] blood pressure 2022-01-14 10:20:00 136 mm[Hg] [facility] - systolic [facility] blood pressure 2022-01-14 10:20:00 78 mm[Hg] [facility] - diastolic [facility] height 2021-12-10 11:40:00 62 [in_i] [facility] weight 2021-12-10 11:40:00 224 [facility]_av[facility] bmi 2021-12-10 11:40:00 40.97 kg/m2 [facility] height 2021-09-30 12:00:00 62 [in_i] [facility] weight 2021-09-30 12:00:00 224 [lb_av] [facility] bmi 2021-09-30 12:00:00 40.97 kg/m2 [facility] height 2021-09-08 13:00:00 62 [in_i] [facility] weight 2021-09-08 13:00:00 223 [lb_av] [facility] temperature 2021-09-08 13:00:00 97.5 [degF] [facility] bmi 2021-09-08 13:00:00 40.78 kg/m2 [facility] oximetry 2021-09-08 13:00:00 96 % [facility] respiratory rate 2021-09-08 13:00:00 20 /min [facility] blood pressure 2021-09-08 13:00:00 150 mm[Hg] [facility] - systolic [facility] blood pressure 2021-09-08 13:00:00 88 mm[Hg] [facility] - diastolic [facility] height 2021-06-02 13:00:00 62 [in_i] [facility] weight 2021-06-02 13:00:00 242 [lb_av] [facility] temperature 2021-06-02 13:00:00 98.5 [degF] [facility] S [facility] bmi 2021-06-02 13:00:00 44.26 kg/m2 [facility] oximetry 2021-06-02 13:00:00 91 % [facility] blood pressure 2021-06-02 13:00:00 120 mm[Hg] [facility] - systolic [facility] blood pressure 2021-06-02 13:00:00 70 mm[Hg] [facility] - diastolic [facility] height 2021-06-02 13:40:00 62 [in_i] [facility] weight 2021-06-02 13:40:00 242 [lb_av] [facility] temperature 2021-06-02 13:40:00 98.5 [degF] [facility] bmi 2021-06-02 13:40:00 44.26 kg/m2 [facility] S [facility] oximetry 2021-06-02 13:40:00 91 % [facility] S [facility] respiratory rate 2021-06-02 13:40:00 18 /min [facility] - [facility] blood pressure 2021-06-02 13:40:00 120 mm[Hg] [facility] - systolic [facility] blood pressure 2021-06-02 13:40:00 70 mm[Hg] [facility] - diastolic [facility] height 2021-03-04 11:00:00 62 [in_i] [facility] weight 2021-03-04 11:00:00 220 [lb_av] [facility] S [facility] bmi 2021-03-04 11:00:00 40.23 kg/m2 [facility] S [facility] height 2020-12-19 16:40:00 62 [in_i] [facility] S [facility] weight 2020-12-19 16:40:00 220 [lb_av] [facility] bmi 2020-12-19 16:40:00 40.23 kg/m2 [facility] HEIGHT 2020-07-03 17:00:00 154.9 cm WEIGHT 2020-07-03 17:00:00 103.556 kg Systolic blood 2022-01-25 16:00:00 120 mm[Hg] [facility] Diastolic blood 2022-01-25 16:00:00 56 mm[Hg] [facility] Heart rate 2022-01-25 16:00:00 76 /min [facility] Body temperature 2022-01-25 16:00:00 36.78 Leonor [facility] Respiratory rate 2022-01-25 16:00:00 18 /min [facility] Oxygen saturation in 2022-01-25 16:00:00 91 /min [facility] Arterial blood by [facility]ter Pulse oximetry Body height 2022-01-23 01:22:00 157.5 cm [facility] Body weight 2022-01-23 01:22:00 104.327 kg [facility] BMI 2022-01-23 01:22:00 42.07 kg/m2 [facility] Procedures Procedure Date / Time Performed Performing Clinician Sour e POCT-GLUCOSE METER 2022-01-25 12:45:00 Clementine, [facility] POCT-GLUCOSE METER 2022-01-25 07:38:00 Clementine, [facility] CBC (HEMOGRAM ONLY) 2022-01-25 04:46:00 Clementine, [facility] BASIC METABOLIC PANEL 2022-01-25 04:46:00 Clementine, [facility] MAGNESIUM 2022-01-25 04:46:00 Clementine, [facility] ECG 12-LEAD 2022-01-25 01:14:58 Unknown, 7 [facility] ECG 12-LEAD 2022-01-25 01:14:58 Unknown, 7 [facility] ECG 12-LEAD 2022-01-25 01:14:58 Unknown, 7 [facility] ECG 12-LEAD 2022-01-25 01:14:09 Unknown, 7 [facility] ECG 12-LEAD 2022-01-25 01:14:09 Unknown, 7 [facility] ECG 12-LEAD 2022-01-25 01:14:09 Unknown, 7 [facility] ECG 12-LEAD 2022-01-25 01:09:07 Unknown, 7 [facility] ECG 12-LEAD 2022-01-25 01:09:07 Unknown, 7 [facility] POCT-GLUCOSE METER 2022-01-24 22:02:00 Clementine, [facility] POCT-GLUCOSE METER 2022-01-24 16:38:00 Clementine, [facility] 2D ECHO W/ DOPPLER 2022-01-24 12:58:06 lAison Pope [facility] (CW/PW/COLOR) [facility] POCT-GLUCOSE METER 2022-01-24 12:36:00 Clementine, [facility] POCT-GLUCOSE METER 2022-01-24 08:08:00 Clementine, [facility] CBC (HEMOGRAM ONLY) 2022-01-24 04:40:00 Clementine, [facility] BASIC METABOLIC PANEL 2022-01-24 04:40:00 Clementine, [facility] MAGNESIUM 2022-01-24 04:40:00 Clementine, [facility] POCT-GLUCOSE METER 2022-01-23 21:53:00 Clementine, [facility] POCT-GLUCOSE METER 2022-01-23 17:16:00 Clementine, [facility] XR CHEST 1 VIEW PORTABLE 2022-01-23 15:02[facility]00 [facility] B-TYPE NATRIURETIC FACTOR 2022-01-23 13:57:00 [facility] [place] VENOUS DOPPLER LEG, RIGHT 2022-01-23 12:00:00 Clementine, Joann Yunielmary lou pastrana [facility] POCT-GLUCOSE METER 2022-01-23 11:55:00 Clementine, [facility] POCT-GLUCOSE METER 2022-01-23 08:42:00 Clementine, [facility] MRA HEAD WITHOUT IV 2022-01-23 08:18:00 Clementine, [facility] CONTRAST [facility] MRA NECK WITHOUT IV 2022-01-23 08:18:00 Clementine, [facility] MR BRAIN WITHOUT IV 2022-01-23 08:18:00 Clementine, [facility] POCT-GLUCOSE METER 2022-01-23 06:25:00 [facility] HEMOGLOBIN A1C 2022-01-23 05:59:00 Clementine, [facility] CBC (HEMOGRAM ONLY) 2022-01-23 05:59:00 Clementine[facility] METABOLIC PANEL 2022-01-23 05:59:00 Clementine, [facility] I [facility] MAGNESIUM 2022-01-23 05:59:00 Clementine, [facility] VITAMIN B12 2022-01-23 05:59:00 Clementine, [facility] RPR 2022-01-23 05:59:00 Clementine, [facility] HC LAB HIV-1 AG W/HIV-1&2 2022-01-23 05:59:00 Clementine, Joann Seth pastrana [facility] LIPID PANEL 2022-01-23 05:59:00 TschoAlison grant [facility] SODIUM, RANDOM URINE 2022-01-23 01:28:00 Clementine, [facility] CREATININE, RANDOM URINE 2022-01-23 01:28:00 Clementine, [facility] UREA NITROGEN, RANDOM 2022-01-23 01:28:00 [facility]INE [facility] POCT-GLUCOSE METER 2022-01-22 23:10:00 Clementine, [facility] US RENAL COMPLETE 2022-01-22 21:35:00 Clementine, [facility] SARS-COV2/RT-PCR ([facility] & 2022-01-22 19:22:00 Clementine, [facility] REF LABS) [facility] URINE CULTURE 2022-01-22 14:57:00 [facility] CBC W/PLT COUNT & AUTO 2022-01-22 14:57:00 GasperHarvey grant [facility] COMPREHENSIVE METABOLIC 2022-01-22 14:57:00 GasperHarvey grant [facility] URINALYSIS W/ REFLEX 2022-01-22 14:57:00 GasperHarvey grant [facility] URINE CULTURE [facility] MAGNESIUM 2022-01-22 14:57:00 GasperHarvey grant [facility] CBC W/PLT COUNT & AUTO 2022-01-22 14:57:00 GasperHarvey grant [facility] CTA BRAIN 2022-01-22 14[facility]19[facility]22-01-22 14:19:[address] [facility] CT BRAIN CEREBRAL 2022-01-22 14:19:00 [facility] PERFUSION ANALYSIS Medical Cent[facility] r CT HEAD WITHOUT CODE 2022-01-22 13:42:00 [facility] STROKE [facility] [place] [facility] Care Planned Activity Planned Date Details Comments Source Future Scheduled Test 2023-01-[address] [facility] Screening (12+) [code = Tobacco Cessation Counseling and Screening (12+)] Future Scheduled Test 2023-01-[address] [facility] 00:[facility]:00 [facility] r Screening (12+) [code = Tobacco Cessation Counseling and Screening (12+)] Future Scheduled Test 2023-01-[address] [facility] 00:00:00 [facility] Cent[facility] r Screening (12+) [code = Tobacco Cessation Counseling and Screening (12+)] Future Scheduled Test 2023-01-[address] [facility] 00:00:00 [facility] Cent[facility] r Screening (12+) [code = Tobacco Cessation Counseling and Screening (12+)] Diagnostic Test 2022-04-29 glucose, fingerstick, Zayda wilber [facility] Pending 00:00:00 blood [code = Practice glucose, fingerstick, blood] Diagnostic Test 2022-04-29 hemoglobin A1C, [place] F amily Pending 00:00:00 fingerstick [code = Practice hemoglobin A1C, fingerstick] Diagnostic Test 2022-04-29 CMP, serum or plasma Vill [facility] Family Pending 00:00:00 [code = CMP, serum or Practi ce plasma] Diagnostic Test 2022-04-29 lipid panel, serum [facility] Pending 00:00:00 [code = lipid panel, Practic e serum] Diagnostic Test 2022-04-29 microalbumin/creatini [place] Pending 00:00:00 ne, mass ratio, urine Practi ce [code = microalbumin/creatini ne, mass ratio, urine] Diagnostic Test 2022-04-29 CBC w/ auto diff [facility] Pending 00:00:00 [code = CBC w/ auto Practice diff] Diagnostic Test 2022-04-29 TSH, serum or plasma [facility] Pending 00:00:00 [code = TSH, serum or Practi ce plasma] Diagnostic Test 2022-04-29 T4, free, serum [code Zayda wilber [facility] Pending 00:00:00 = T4, free, serum] Practice Diagnostic Test 2022-04-29 C-peptide, serum [facility] Pending 00:00:00 [code = C-peptide, Practice serum] Diagnostic Test 2022-04-29 diabetes panel, serum [place] Pending 00:00:00 [code = diabetes Practice panel, serum] Future Scheduled Test 2022-03-[address] [facility] 00:00:00 (12+) [code = Medical Center DEPRESSION SCREENING (12+)] Future Scheduled Test 2022-03-21 FALLS RISK SCREENING [facility] 00:00:00 [code = FALLS RISK Medical C enter SCREENING] Future Scheduled Test 2022-03-[address] [facility] 00:00:00 (12+) [code = Medical Center DEPRESSION SCREENING (12+)] Future Scheduled Test 2022-03-21 FALLS RISK SCREENING [facility] 00:00:00 [code = FALLS RISK Medical C enter SCREENING] Future Scheduled Test 2021-11-[address] [facility] 00:00:00 (#1) [code = Medical Center INFLUENZA VACCINE (#1)] Future Scheduled Test 2021-11-[address] [facility] 00:00:00 (#1) [code = Medical Center INFLUENZA VACCINE (#1)] Future Scheduled Test 2021-11-[address] [facility] 00:00:00 (#1) [code = Medical Center INFLUENZA VACCINE (#1)] Future Scheduled Test 2021-11-[address] [facility] 00:00:00 (#1) [code = Medical Center INFLUENZA VACCINE (#1)] Future Scheduled Test 2021-11-[address] [facility] 00:00:00 (#1) [code = Medical Center INFLUENZA VACCINE (#1)] Future Scheduled Test 2021-11-[address] [facility] 00:00:00 (#1) [code = Medical Center INFLUENZA VACCINE (#1)] Future Scheduled Test 2021-03-[address] [facility] 00:00:00 WELLNESS (YEAR 2 or Medical Center FIRST YEAR if no IPPE) [code = MEDICARE ANNUAL WELLNESS (YEAR 2 or FIRST YEAR if no IPPE)] Future Scheduled Test 2021-03-[address] [facility] 00:00:00 WELLNESS (YEAR 2 or Medical Center FIRST YEAR if no IPPE) [code = MEDICARE ANNUAL WELLNESS (YEAR 2 or FIRST YEAR if no IPPE)] Future Scheduled Test 2021-03-[address] [facility] 00:00:00 WELLNESS (YEAR 2 or Medical Center FIRST YEAR if no IPPE) [code = MEDICARE ANNUAL WELLNESS (YEAR 2 or FIRST YEAR if no IPPE)] Future Scheduled Test 2021-03-[address] [facility] 00:00:00 WELLNESS (YEAR 2 or Medical Center FIRST YEAR if no IPPE) [code = MEDICARE ANNUAL WELLNESS (YEAR 2 or FIRST YEAR if no IPPE)] Future Scheduled Test 2021-03-[address] [facility] 00:00:00 WELLNESS (YEAR 2 or Medical Center FIRST YEAR if no IPPE) [code = MEDICARE ANNUAL WELLNESS (YEAR 2 or FIRST YEAR if no IPPE)] Future Scheduled Test 2021-03-[address] [facility] 00:00:00 WELLNESS (YEAR 2 or Medical Center FIRST YEAR if no IPPE) [code = MEDICARE ANNUAL WELLNESS (YEAR 2 or FIRST YEAR if no IPPE)] Future Scheduled Test 2021-03-[address] [facility] 00:00:00 (12+) [code = Medical Center DEPRESSION SCREENING (12+)] Future Scheduled Test 2021-03-21 FALLS RISK SCREENING [facility] 00:00:00 [code = FALLS RISK Medical C enter SCREENING] Future Scheduled Test 2021-03-[address] [facility] 00:00:00 (12+) [code = Medical Center DEPRESSION SCREENING (12+)] Future Scheduled Test 2021-03-21 FALLS RISK SCREENING [facility] 00:00:00 [code = FALLS RISK Medical C enter SCREENING] Future Scheduled Test 2021-03-[address] [facility] 00:00:00 (12+) [code = Medical Center DEPRESSION SCREENING (12+)] Future Scheduled Test 2021-03-21 FALLS RISK SCREENING [facility] 00:00:00 [code = FALLS RISK Medical C enter SCREENING] Future Scheduled Test 2021-03-[address] [facility] 00:00:00 (12+) [code = Medical Center DEPRESSION SCREENING (12+)] Future Scheduled Test 2021-03-21 F[address]S [address]ISK SCREENING [facility] 00:00:00 [code = FALLS RISK Medical C enter SCREENING] Future Scheduled Test 2020-10-[address] [facility] 00:00:00 [facility] Medical Center (procedure) [code = 52927737] Future Scheduled Test 2020-10-[address] [facility] 00:00:00 [facility] Center (procedure) [code = 87029697] Future Scheduled Test 2020-10-[address] [facility] 00:00:00 measurement Medical Center (procedure) [code = 40064126] Future Scheduled Test 2020-10-[address] [facility] 00:00:00 measurement Medical Center (procedure) [code = 67172584] Future Scheduled Test 2020-10-[address] [facility] 00:00:00 measurement Medical Center (procedure) [code = 58744540] Future Scheduled Test 2020-10-[address] [facility] 00:00:00 [facility] Medical Center (procedure) [code = 63802510] Future Scheduled Test 1991-12-12 SHINGLES VACCINES ([address] [facility] 00:00:00 of 2) [code = Medical Center SHINGLES VACCINES (1 of 2)] Future Scheduled Test 1991-12-12 SHINGLES VACCINES ([address] [facility] 00:00:00 of 2) [code = Medical Center SHINGLES VACCINES (1 of 2)] Future Scheduled Test 1991-12-12 SHINGLES VACCINES ([address] [facility] 00:00:00 of 2) [code = Medical Center SHINGLES VACCINES (1 of 2)] Future Scheduled Test 1991-12-12 SHINGLES VACCINES ([address] [facility] 00:00:00 of 2) [code = Medical Center SHINGLES VACCINES (1 of 2)] Future Scheduled Test 1991-12-12 SHINGLES VACCINES ([address] [facility] 00:00:00 of 2) [code = Medical Center SHINGLES VACCINES (1 of 2)] Future Scheduled Test 1991-12-12 SHINGLES VACCINES ([address] [facility] 00:00:00 of 2) [code = Medical Center SHINGLES VACCINES (1 of 2)] Future Scheduled Test 1960 DTAP/TDAP/TD VACCINES [facility] 00:00:00 (1 - Tdap) [code = Medical C enter DTAP/TDAP/TD VACCINES (1 - Tdap)] Future Scheduled Test 1960 DTAP/TDAP/TD VACCINES [facility] 00:00:00 (1 - Tdap) [code = Medical C enter DTAP/TDAP/TD VACCINES (1 - Tdap)] Future Scheduled Test 1960 DTAP/TDAP/TD VACCINES [facility] 00:00:00 (1 - Tdap) [code = Medical C enter DTAP/TDAP/TD VACCINES (1 - Tdap)] Future Scheduled Test 1960 DTAP/TDAP/TD VACCINES [facility] 00:00:00 (1 - Tdap) [code = Medical C enter DTAP/TDAP/TD VACCINES (1 - Tdap)] Future Scheduled Test 1960 DTAP/TDAP/TD VACCINES [facility] 00:00:00 (1 - Tdap) [code = Medical C enter DTAP/TDAP/TD VACCINES (1 - Tdap)] Future Scheduled Test 1960 DTAP/TDAP/TD VACCINES [facility] 00:00:00 (1 - Tdap) [code = Medical C enter DTAP/TDAP/TD VACCINES (1 - Tdap)] Future Scheduled Test [address] [facility] 00:00:00 [facility] Medical Cente r Screening (12+) [code = Tobacco Cessation Counseling and Screening (12+)] Future Scheduled Test 1951-12-12 DIABETIC EYE EXAM [facility] 00:00:00 [code = DIABETIC EYE Medical Center EXAM] Future Scheduled Test 1951-12-12 Diabetic foot [facility] examination Medical Center (regime/therapy) [code = 296985560] Future Scheduled Test 1951-12-12 Urine screening for [facility] 00:00:00 protein (procedure) Medical Center [code = 773798286] Future Scheduled Test 1951-12-12 DIABETIC EYE EXAM [facility] 00:00:00 [code = DIABETIC EYE Medical Center EXAM] Future Scheduled Test 1951-12-12 Diabetic foot [facility] examination Medical Center (regime/therapy) [code = 809660818] Future Scheduled Test 1951-12-12 Urine screening for [facility] 00:00:00 protein (procedure) Medical Center [code = 939419136] Future Scheduled Test 1951-12-12 DIABETIC EYE EXAM [facility] 00:00:00 [code = DIABETIC EYE Medical Center EXAM] Future Scheduled Test 1951-12-12 Diabetic foot [facility] examination Medical Center (regime/therapy) [code = 758641590] Future Scheduled Test 1951-12-12 Urine screening for [facility] 00:00:00 protein (procedure) Medical Center [code = 062866214] Future Scheduled Test 1951-12-12 DIABETIC EYE EXAM [facility] 00:00:00 [code = DIABETIC EYE Medical Center EXAM] Future Scheduled Test 1951-12-12 Diabetic foot [facility] examination Medical Center (regime/therapy) [code = 068764074] Future Scheduled Test 1951-12-12 Urine screening for [facility] 00:00:00 protein (procedure) Medical Center [code = 752427774] Future Scheduled Test 1951-12-12 DIABETIC EYE EXAM [facility] 00:00:00 [code = DIABETIC EYE Medical Center EXAM] Future Scheduled Test 1951-12-12 Diabetic foot [facility] examination Medical Center (regime/therapy) [code = 606395925] Future Scheduled Test 1951-12-12 Urine screening for [facility] 00:00:00 protein (procedure) Medical Center [code = 427087627] Future Scheduled Test 1951-12-12 DIABETIC EYE EXAM [facility] 00:00:00 [code = DIABETIC EYE Medical Center EXAM] Future Scheduled Test 1951-12-12 Diabetic foot [facility] examination Medical Center (regime/therapy) [code = 054680637] Future Scheduled Test 1951-12-12 Urine screening for [facility] 00:00:00 protein (procedure) Medical Center [code = 488698030] Future Scheduled Test 1947-12-12 PNEUMOCOCCAL 65+ YRS [facility] 00:00:00 (1 - PCV) [code = Medical Ce nter PNEUMOCOCCAL 65+ YRS (1 - PCV)] Future Scheduled Test 1947-12-12 PNEUMOCOCCAL 65+ YRS [facility] 00:00:00 (1 - PCV) [code = Medical Ce nter PNEUMOCOCCAL 65+ YRS (1 - PCV)] Future Scheduled Test 1947-12-12 PNEUMOCOCCAL 65+ YRS [facility] 00:00:00 (1 - PCV) [code = Medical Ce nter PNEUMOCOCCAL 65+ YRS (1 - PCV)] Future Scheduled Test 1947-12-12 PNEUMOCOCCAL 65+ YRS [facility] 00:00:00 (1 - PCV) [code = Medical Ce nter PNEUMOCOCCAL 65+ YRS (1 - PCV)] Future Scheduled Test 1947-12-12 PNEUMOCOCCAL 65+ YRS [facility] 00:00:00 (1 - PCV) [code = Medical Ce nter PNEUMOCOCCAL 65+ YRS (1 - PCV)] Future Scheduled Test 1947-12-12 PNEUMOCOCCAL 65+ YRS [facility] 00:00:00 (1 - PCV) [code = Medical Ce nter PNEUMOCOCCAL 65+ YRS (1 - PCV)] Future Scheduled Test 1942-06-10 COVID-19 VACCINE (#1) [facility] 00:00:00 [code = COVID-[address] VACCINE (#1)] Future Scheduled Test 1942-06-10 COVID-19 VACCINE (#1) [facility] 00:00:00 [code = COVID-[address] VACCINE (#1)] Future Scheduled Test 1942-06-10 COVID-19 VACCINE (#1) [facility] 00:00:00 [code = COVID-[address] VACCINE (#1)] Future Scheduled Test 1942-06-10 COVID-19 VACCINE (#1) [facility] 00:00:00 [code = COVID-[address] VACCINE (#1)] Future Scheduled Test 1942-06-10 COVID-19 VACCINE (#1) [facility] 00:00:00 [code = COVID-[address] VACCINE (#1)] Future Scheduled Test 1942-06-10 COVID-19 VACCINE (#1) [facility] 00:00:00 [code = COVID-[address] VACCINE (#1)] Future Scheduled Test 1941 DXA SCAN [code = DXA [facility] 00:00:00 SCAN] Medical Center Future Scheduled Test 1941 DXA SCAN [code = DXA [facility] 00:00:00 SCAN] Medical Center Future Scheduled Test 1941 DXA SCAN [code = DXA [facility] 00:00:00 SCAN] [facility] Future Scheduled Test 1941 DXA SCAN [code = DXA [facility] 00:00:00 SCAN] Medical Center Future Scheduled Test 1941 DXA SCAN [code = DXA [facility] 00:00:00 SCAN] Medical Center Future Scheduled Test 1941 DXA SCAN [code = DXA [facility] 00:00:00 SCAN] Medical Center Future Appointment 2022-06-01 Rob Cortes [facility] 11:30:[address] Practice [address], [place] [address] Future Appointment 2022-05-27 Rob Cortes [facility] 00:00:[address]; Practice [address], [place] [address] Encounters Start End Encounter Admission Attending Care Care Encounter Source Date/Time Date/Time Type Type Clinicians Facility Department ID 2022-05-09 Outpatient Esqueda, STLMLC STLMLC [id number] Common 21:30:00 Marie [id number] [facility] 2022-04-27 Outpatient Esqueda, STLMLC STLMLC [id number] Common 11:05:01 Marie [id number] [facility] 2022-04-19 Outpatient SLAUGHTER, Na STLMLC STLMLC [id number] 2 Common 17:14:00 [id number] [facility] 2022-04-06 Outpatient SLAUGHTER, Na STLMLC STLMLC [id number] 2 Common 11:59:00 [id number] [facility] 2022-03-30 Outpatient SLAUGHTER, Na STLMLC STLMLC [id number] 2 Common 09:39:01 95598 [facility] 2022-03-23 Outpatient SLAUGHTER, Na STLMLC STLMLC [id number] 2 Common 13:35:01 [id number] [facility] 2022-03-17 Outpatient Slaughter, Na STLMLC STLMLC [id number] 2 Common 09:54:02 [id number] [facility] 2022-03-01 Outpatient Slaughter, Na STLMLC STLMLC [id number] 2 Common 09:54:02 [id number] [facility] 2022-02-15 Outpatient Slaughter, Na STLMLC STLMLC [id number] 2 Common 16:33:01 [id number] [facility] 2022-01-22 [facility] [id number] 00[facility]00 Encounter [facility] 2022-01-22 [facility] [id number] 00:00:00 Encounter [facility] 2022-01-12 Outpatient Slaughter, Na STLMLC STLMLC [id number] 2 Common 14:58:01 [facility] 2021-12-08 Outpatient Slaughter, Na STLMLC STLMLC [id number] 2 Common 10:45:00 [facility] 2021-09-29 Outpatient Slaughter, Na STLMLC STLMLC [id number] 2 Common 11:51:00 [facility] 2021-09-28 Outpatient Slaughter, Na STLMLC STLMLC [id number] 2 Common 10:30:01 [facility] 2021-09-04 Outpatient Slaughter, Na STLMLC STLMLC [id number] 2 Common 13:45:00 [facility] 2021-06-02 Outpatient Slaughter, Na STLMLC STLMLC [id number] 2 Common 13:14:01 [facility] 2021-06-01 Outpatient Slaughter, Na STLMLC STLMLC [id number] 2 Common 14:17:00 [facility] 2021-05-29 Outpatient Slaughter, Na STLMLC STLMLC [id number] 2 Common 09:59:01 [facility] 2021-05-06 Outpatient Slaughter, Na STLMLC STLMLC [id number] 2 Common 16:04:00 [facility] 2021-04-15 Outpatient Slaughter, Na STLMLC STLMLC [id number] 2 Common 14:24:29 [id number] [facility] 2021-04-15 Outpatient Slaughter, Na STLMLC STLMLC [id number] 2 Common 14:24:14 [id number] [facility] 2021-04-15 Outpatient Slaughter, Na STLMLC STLMLC [id number] 2 Common 14:19:03 97975 [facility] 2021-04-15 Outpatient Slaughter, Na STLMLC STLMLC [id number] 2 Common 14:06:54 [id number] [facility] 2021-04-15 Outpatient Slaughter, Na STLMLC STLMLC [id number] 2 Common 13:02:26 [id number] [facility] 2021-04-15 Outpatient Slaughter, Na STLMLC STLMLC [id number] 2 Common 13:01:50 [id number] [facility] 2021-04-15 Outpatient Slaughter, Na STLMLC STLMLC [id number] 2 Common 13:01:22 [id number] [facility] 2021-04-15 Outpatient Slaughter, Na STLMLC STLMLC [id number] 2 Common 12:57:37 [id number] [facility] 2021-04-15 Outpatient Slaughter, Na STLMLC STLMLC [id number] 2 Common 12:33:49 96525 [facility] 2021-04-15 Outpatient Slaughter, Na STLMLC STLMLC [id number] 2 Common 12:32:45 [id number] [facility] 2021-04-15 Outpatient Slaughter, Na STLMLC STLMLC [id number] 2 Common 12:31:08 [id number] [facility] 2021-04-15 Outpatient Slaughter, Na STLMLC STLMLC [id number] 2 Common 12:26:24 [id number] [facility] 2021-04-15 Outpatient Slaughter, Na STLMLC STLMLC [id number] 2 Common 12:26:03 [id number] [facility] 2021-04-15 Outpatient Slaughter, Na STLMLC STLMLC [id number] 2 Common 12:24:50 [id number] [facility] 2021-04-15 Outpatient Slaughter, Na STLMLC STLMLC [id number] 2 Common 11:59:32 [id number] [facility] 2021-04-15 Outpatient Slaughter, Na STLMLC STLMLC [id number] 2 Common 11:26:16 42515 [facility] 2021-04-15 Outpatient Slaughter, Na STLMLC STLMLC [id number] 2 Common 11:19:17 [id number] [facility] 2021-04-15 Outpatient Slaughter, Na STLMLC STLMLC [id number] 2 Common 11:18:55 [facility] 2020-07-03 Inpatient ER [facility] Cardiology [id number] [facility] 16:58:00 ASTRID 2022-04-30 2022-04-30 Outpatient Daniel_T VFP VFP [id number] [address] [place] [address] 00:00:00 00:00:00 [id number] Family Practic e 2022-04-30 2022-04-30 Outpatient Miller_S_AH VFP VFP [address] [place] [address] 00:00:00 00:00:00 [id number] Family Practic e 2022-04-29 2022-04-29 Outpatient Daniel_T VFP VFP [id number] [address] [place] [address] 00:00:00 00:00:00 [id number] Family Practic e 2022-04-29 2022-04-29 Kev VFP [place] - [id number] V illage 00:00:00 00:00:00 [facility] Family StubbsCheri - Doron darby MD: [id number] [place] - e Shadow VM_HOU_[facility] [address] [facility], [address], [place] [address] , Ph. 2022-04-27 2022-04-27 Outpatient Daniel_T VFP VFP [id number] [address] [place] [address] 00:00:00 00:00:00 [id number] Family Practic e 2022-04-22 2022-04-22 Outpatient MARIO HENNING [facility] [id number] Univers 10:30:00 10:30:00 MARIO PLATA i [facility] 2022-04-19 2022-04-19 OFFICE STLC STLC [id number] Co mmon 00:00:00 00:00:00 VISIT NEW Spir it PT LEVEL 3 - [facility] 2022-04-13 2022-04-13 Outpatient Daniel_T VFP VFP [id number] [address] [place] [address] 00:00:00 00:00:00 [id number] Family Practic e 2022-04-06 2022-04-06 Outpatient Daniel_T VFP VFP [id number] [address] [place] [address] 00:00:00 00:00:00 [id number] Family Practic e 2022-03-25 2022-03-25 (TEL) STLMLC STLMLC [id number] Co mmon 00:00:00 00:00:00 Spirit - [facility] 2022-03-23 2022-03-23 [facility] [id number] Co mmon 00:00:00 00:00:00 [facility] 2022-03-16 2022-03-16 (TEL) STLC STLC [id number] Co mmon 00:00:00 00:00:00 [facility] 2022-03-16 2022-03-16 [facility]TEL[facility] [id number] Co mmon 00:00:00 00:00:00 [facility] 2022-03-12 2022-03-12 Telephone [facility] [id number] [facility] 00:00:00 00:00:00 Mario PAEZ [id number] i [id number] [facility] [id number] Ne dical NAL [address] [place] [address] 2022-03-04 2022-03-04 (TEL) [facility] [id number] Co mmon 00:00:00 00:00:00 [facility] 2022-02-25 2022-02-25 Assistant Director Of Security Lakshmi Angela Sleep [facility] [id number] [facility] 12:00:00 12:15:00 Visit Senthil Schmidt [id number] ity [facility] [id number] [id number] [address] 2022-02-25 2022-02-25 Outpatient R SENTHIL SCHMIDT [facility] [id number] [facility] 12:00:00 12:00:00 SENTHIL SCHMIDT ity [facility] 2022-02-23 2022-02-23 [facility] [id number] 10:30:00 11:00:00 Visit Mario PAEZ [id number] i [id number] [id number] Ne dical NAL [address] [place] [address] 2022-02-23 2022-02-23 Outpatient R MARIO PLATA [facility] [id number] Univers 10:30:00 10:30:00 MARIO PLATA i [facility] 2022-02-16 2022-02-16 OFFICE STLMLC STLMLC [id number] Co mmon 00:00:00 00:00:00 VISIT Spirit ESTAB PT - CHI LEVEL 4 [facility] 2022-02-09 2022-02-09 (TEL) STLMLC STLMLC [id number] Co mmon 00:00:00 00:00:00 [facility] 2022-02-05 2022-02-05 (TEL) STLMLC STLMLC [id number] Co mmon 00:00:00 00:00:00 [facility] 2022-02-02 2022-02-02 (TEL) STLMLC STLMLC [id number] Co mmon 00:00:00 00:00:00 [facility] 2022-02-01 2022-02-01 OFFICE STLMLC STLMLC [id number] Co mmon 00:00:00 00:00:00 VISIT EST Spir it PT LEVEL 3 - [facility] 2022-01-26 2022-01-26 (TEL) STLMLC STLMLC [id number] Co mmon 00:00:00 00:00:00 [facility] 2022-01-25 2022-01-25 Outpatient [facility] [id number] [facility] [place] 00:00:00 23:59:00 Arik 2022-01-22 2022-01-25 [facility] Harvey Jackman [facility] [id number] 13:28:00 17:48:00 Encounter Joann Gorman [facility] 2022-01-22 2022-01-25 Inpatient ER ARNULFO GORMAN Emergency [id number] [facility] 13:28:00 17:48:00 JOANN 2022-01-22 2022-01-[address] [facility] [id number] 13:28:00 17:48:00 Encounter Joann Gorman [facility] 2022-01-25 2022-01-25 [facility] [id number] 00:00:00 00:00:00 [facility] 2022-01-25 2022-01-25 [facility] [id number] 00:00:00 00:00:00 [facility] 2022-01-22 2022-01-22 [id number] 00:[facility] 00:00:00 [facility] 2022-01-22 2022-01-22 [facility] [id number] 00:[facility]00 00:00:00 [facility] 2022-01-14 2022-01-14 OFFICE STLMLC STLMLC [id number] Co mmon 00:00:00 00:00:00 VISIT [facility] PT - CHI LEVEL 4 [facility] 2022-01-11 2022-01-11 (TEL) STLMLC STLMLC [id number] Co mmon 00:00:00 00:00:00 [facility] 2022-01-08 2022-01-08 (TEL) STLMLC STLMLC [id number] Co mmon 00:00:00 00:00:00 [facility] 2021-12-14 2021-12-14 (TEL) STLMLC STLMLC [id number] Co mmon 00:00:00 00:00:00 [facility] 2021-12-10 2021-12-10 OFFICE STLMLC STLMLC [id number] Co mmon 00:00:00 00:00:00 VISIT [facility] PT - CHI LEVEL 4 [facility] 2021-12-04 2021-12-04 (TEL) STLMLC STLMLC [id number] Co mmon 00:00:00 00:00:00 [facility] 2021-10-29 2021-10-29 (TEL) STLMLC STLMLC [id number] [facility] mmon 00:00:00 00:00:00 [facility] 2021-09-30 2021-09-30 OFFICE STLMLC STLMLC [id number] Co mmon 00:00:00 00:00:00 VISIT EST [facility] PT LEVEL 3 - [facility] 2021-09-24 2021-09-24 (TEL) STLMLC STLMLC [id number] Co mmon 00:00:00 00:00:00 [facility] 2021-09-14 2021-09-14 (TEL) STLMLC STLMLC [id number] Co mmon 00:00:00 00:00:00 [facility] 2021-09-08 2021-09-08 OFFICE STLMLC STLMLC [id number] Co mmon 00:00:00 00:00:00 VISIT [facility] PT - CHI LEVEL 4 [facility] 2021-06-23 2021-06-23 (TEL) STLMLC STLMLC [id number] Co mmon 00:00:00 00:00:00 [facility] 2021-06-02 2021-06-02 SUB ANNUAL STLMLC STLMLC [id number] Common 00:00:00 00:00:00 MCR [facility] WELLNESS - CHI VISIT [facility] 2021-06-02 2021-06-02 OFFICE STLMLC STLMLC [id number] Co mmon 00:00:00 00:00:00 VISIT EST [facility] PT LEVEL 3 - CHI [facility] 2021-04-23 2021-04-23 (TEL) STLMLC STLMLC [id number] Co mmon 00:00:00 00:00:00 [facility] CHI [facility] 2021-03-04 2021-03-04 OFFICE STLMLC STLMLC [id number] Co mmon 00:00:00 00:00:00 VISIT [facility] ESTAB PT - CHI LEVEL 4 [facility] 2020-12-19 2020-12-19 OFFICE STLMLC STLMLC [id number] Co mmon 00:00:00 00:00:00 [facility]ISIT [facility] ESTAB PT - CHI LEVEL 4 [facility] 2020-12-09 2020-12-09 Outpatient STLMLC STLMLC [id number] Common 00:00:00 00:00:00 [facility] 2020-09-26 2020-09-26 Outpatient STLMLC STLMLC [id number] Common 00:00:00 00:00:00 [facility] 2020-09-25 2020-09-25 Outpatient STLMLC STLMLC [id number] Common 00:00:00 00:00:00 [facility] 2020-09-08 2020-09-08 Outpatient STLMLC STLMLC [id number] Common 00:00:00 00:00:00 [facility] 2020-08-27 2020-08-27 Outpatient STLMLC STLMLC [id number] Common 00:00:00 00:00:00 [facility] 2020-08-19 2020-08-19 Outpatient Miller_S_AH VFP VFP [id number] Village 05:09:00 05:09:00 [id number] 2020-07-30 2020-07-30 Outpatient STLMLC STLMLC [id number] Common 00:00:00 00:00:00 [facility] 2020-07-17 2020-07-17 Outpatient STLMLC STLMLC [id number] Common 00:00:00 00:00:00 [facility] 2020-07-16 2020-07-16 Outpatient Curly-Mbayo VFP VFP [id number] Village 02:54:00 02:54:00 _A_AH 05342 Family Practic e 2020-07-16 2020-07-16 Outpatient Curly-Mbayo VFP VFP [id number] Village 02:54:00 02:54:00 _A_AH 03332 Family Practic e 2020-05-21 2020-05-21 Outpatient STLMLC STLMLC [id number] Common 00:00:00 00:00:00 [facility] 2020-05-20 2020-05-20 Outpatient STLMLC STLMLC [id number] Common 00:00:00 00:00:00 [facility] 2020-05-12 2020-05-12 Outpatient STLMLC STLMLC [id number] Common 00:00:00 00:00:00 [facility] 2020-04-30 2020-04-30 Outpatient STLMLC STLMLC [id number] Common 00:00:00 00:00:00 [facility] 2020-04-18 2020-04-18 Outpatient STLMLC STLMLC [id number] Common 00:00:00 00:00:00 [facility] 2020-02-06 2020-02-06 Outpatient STLMLC STLMLC [id number] Common 00:00:00 00:00:00 [facility] 2020-01-16 2020-01-16 Outpatient STLMLC STLMLC [id number] Common 00:00:00 00:00:00 [facility] 2020-01-15 2020-01-15 Outpatient STLMLC STLMLC [id number] Common 00:00:00 00:00:00 [facility] 2019-12-17 2019-12-17 Outpatient STLMLC STLMLC [id number] Common 00:00:00 00:00:00 [facility] 2019-11-21 2019-11-21 [facility] [id number] Common 15:40:00 15:40:[address] [facility] 2019-10-22 2019-10-22 [facility] [id number] Common 10:38:00 10:38:[address] [facility] 2019-10-02 2019-10-02 [facility] [id number] Common 11:02:00 11:02:[address] [facility] 2019-09-26 2019-09-26 [facility] [id number] Common 14:15:00 14:15:[address] [facility] 2019-09-20 2019-09-20 [facility] [id number] Common 16:10:00 16:10:[address] [facility] 2019-09-13 2019-09-13 [facility] [id number] Common 15:19:00 15:19:[address] [facility] 2019-09-06 2019-09-06 [facility] [id number] Common 16:13:00 16:13:[address] [facility] 2019-09-04 2019-09-04 [facility] [id number] Common 11:20:00 11:20:[address] [facility] 2019-08-28 2019-08-28 [facility] [id number] Common 09:58:00 09:58:[address] [facility] [address] [facility] 2019-08-07 2019-08-07 [facility] [id number] Common 09:40:00 09:40:[address] [facility] 2019-07-24 2019-07-24 [facility] [id number] Common 16:54:00 16:54:[address] [facility] 2019-07-17 2019-07-17 [facility] [id number] Common 16:20:00 16:20:[address] [facility] 2019-07-13 2019-07-13 [facility] [id number] Common 09:00:00 09:00:[address] [facility] 2019-05-09 2019-05-09 Outpatient Curly-Mbayo VFP VFP [id number] Village 07:15:00 07:15:00 _A_AH [id number] Family Practic e 2019-05-09 2019-05-09 Outpatient Curly-Mbayo VFP VFP [id number] [facility] 07:15:00 07:15:00 _A_AH [id number] Family Practic e 2019-05-09 2019-05-09 Outpatient Curly-Mbayo VFP VFP [id number] [facility] 07:15:00 07:15:00 _A_AH 29388 Family Practic e Results Test Description Test Time Test Comments Results Result Comments Source Hemoglobin A1c measurement device panel 2022-04-29 14:08:45 Test Item Value Reference Range Interpretation Comme nts Hemoglobin A1c/Hemoglobin.total in Blood (test code = 4548-4) 8.9 % 5.7-6.4 [facility] Capillary [id number] 14:03:24 Test Item Value Reference Range Interpretation Comments Blood Glucose: mg/dl (test code = Blood 143 Glucose: mg/dl) [facility]07 14:38:51 Test Item Value Reference Range Interpretation Comments RPR SCREEN (BEAKER) (test code = Nonreactive Nonreactive 420) POC-Glucose [id number] 12:58:04 Test Item Value Reference Range Interpretation Comments POC-Glucose Meter (test 154 mg/dL 70-110 H : TE STED AT [facility] code = 1538) [address] [facility], 770 30: Development Rep/Techni daisy ID = [id number] for ERWIN QIAN [place] Lab Interpretation (test Abnormal code = 84766-8) [facility] [id number] 12:58:04 Test Item Value Reference Range Interpretation Comments POC-Glucose Meter (test 154 mg/dL 70-110 H : TE STED AT [facility] code = 1538) [address] [facility], 770 30: Development Rep/Techni daisy ID = [id number] for ERWIN QIAN [place] Lab Interpretation (test Abnormal code = 95888-3) [facility] [id number] 12:58:04 Test Item Value Reference Range Interpretation Comments POC-Glucose Meter (test 154 mg/dL 70-110 H : [facility] [address] [facility], 770 30: Development Rep/Techni daisy ID = [id number] for ERWIN, QIAN [place] Lab Interpretation (test Abnormal code = 76769-9) [facility] [id number] 12:58:04 Test Item Value Reference Range Interpretation Comments POC-Glucose Meter (test 154 mg/dL 70-110 H : TE STED AT [facility] code = 1538) [address] [facility], 770 30: Development Rep/Techni daisy ID = [id number] for QIAN HOOD [place] Lab Interpretation (test Abnormal code = 77171-8) [facility] [id number] 12:58:04 Test Item Value Reference Range Interpretation Comments POC-Glucose Meter (test 154 mg/dL 70-110 H : TE STED AT [facility] code = 1538) [address] [facility], 770 30: Development Rep/Techni daisy ID = [id number] for NYLA HOODIL [place] Lab Interpretation (test Abnormal code = 29056-9) [facility] Hospital[facility]SE [id number] 12:58:04 Test Item Value Reference Range Interpretation Comments POC-GLUCOSE METER 154 mg/dL 70-110 H : TESTED A T [facility] 6720 (BEAKER) (test code = [facility], 1538) 56386: Development Rep/Techni daisy ID = [id number] for LIVIER GUIDRY POCT-GLUCOSE [id number] 07:53:47 Test Item Value Reference Range Interpretation Comments POC-GLUCOSE METER 132 mg/dL 70-110 H : TESTED A T [facility] 6720 (BEAKER) (test code = [facility], 1538) 21968: Development Rep/Techni daisy ID = [id number] for LIVIER GUIDRY BASIC METABOLIC [id number] 06:28:27 Test Item Value Reference Range Interpretation [...] not appl icable for dialysis patien ts Development Rep ID - LAYTON [id number] 06:28:27 Test Item Value Reference Range Interpretation Comments MAGNESIUM (BEAKER) (test code = 1.9 mg/dL 1.6-2.6 627) Development Rep ID - LAYTON LCBC (HEMOGRAM ONLY)2022-01-25 05:24:35 [...] 0-0 (BEAKER) (test code = 413) POCT-GLUCOSE [id number] 22:37:28 Test Item Value Reference Range Interpretation Comments POC-GLUCOSE METER 211 mg/dL 70-110 H : TESTED A T [facility] 6720 (MASTER) (test code = [facility], 1538) 95922: Development Rep/Techni daisy ID = [id number] for CA MFIELD, CRYSTAL 2D Echo W/Doppler(CW/PW/Color)2022-01-24 17:35:48Ejection FractionSLEH ECHO HEARTLAB [facility] W/Doppler(CW/PW/Color)2022-01-24 17:35:48Ejection FractionSLEH ECHO HEARTLAB [facility] W/Doppler(CW/PW/Color) 2022-01-24 17:35:48Ejection FractionSLEH ECHO HEARTLAB [facility] Echo W/Doppler(CW/PW/Color)2022-01-24 17:35:48Ejection FractionSLEH ECHO HEARTLAB [facility]CKS[facility]2D Echo W/Doppler(CW/PW/Color)2022-01-24 17:35:48Ejection FractionSLEH ECHO HEARTLAB [facility]KH[facility] HospitalPOCT-GLUCOSE [id number] 16:50:38 Test Item Value Reference Range Interpretation Comments POC-GLUCOSE METER 289 mg/dL 70-110 H : TESTED A T [facility] 6720 (MASTER) (test code = [facility], 153) 60065: Development Rep/Techni daisy ID = [id number] for An derson, Radha POCT-GLUCOSE [id number] 12:48:56 Test Item Value Reference Range Interpretation Comments POC-GLUCOSE METER 297 mg/dL 70-110 H : TESTED A T [facility] 6720 (MASTER) (test code = [facility], 153) 32714: Development Rep/Techni daisy ID = [id number] for An derson, Radha POCT-GLUCOSE [id number] 08:20:48 Test Item Value Reference Range Interpretation Comments POC-GLUCOSE METER 294 mg/dL 70-110 H : TESTED A T [facility] 6720 (BEAKER) (test code = MAMTA [place], 1538) 51121: Development Rep/Techni daisy ID = [id number] for An Radha perez POCT-GLUCOSE [id number] 07:53:11 Test Item Value Reference Range Interpretation Comments POC-GLUCOSE METER 347 mg/dL 70-110 H : TESTED A T [facility] 6720 (BEAKER) (test code = MAMTA [place], 1538) 92789: Development Rep/Techni daisy ID = [id number] for Ra mos, May Venous doppler leg, [id number] 06:50:36Ejection FractionSLEH ECHO HEARTLAB MKCKESSON [facility], [id number] 06:50:36Ejection FractionSLEH ECHO HEARTLAB MKCKEAST[facility] DIV[facility]ON [facility]ina[facility] do[facility] leg, [id number] 06:50:36Ejection FractionSLEH ECHO HEARTLAB MKCKS[facility] HospitalVenous doppler leg, right 2022-01-24 06:50:36Ejection FractionSLEH ECHO HEARTLAB MKCKS[facility] HospitalVenous doppler leg, [id number] 06:50:36Ejection FractionSLEH ECHO HEARTLAB MKCKESSON [facility]ina[facility] 2022-01-24 05:32:04 Test Item Value Reference Range Interpretation Comments MAGNESIUM (BEAKER) (test code = 2.0 mg/dL 1.6-2.6 627) Development Rep ID - BHUMIKA WBASIC METABOLIC [id number] 05:32:03 Test Item Value Reference Range Interpretation [...] De scription 1092) sq m Result G1 Norm al or high >=90 G2 Mildly decreased 60-89 [...] not appl icable for dialysis patien ts Development Rep ID - BHUMIKA WCBC (HEMOGRAM ONLY)2022-01-24 04:47:08 [...] 0-0 (BEAKER) (test code = 413) POCT-GLUCOSE [id number] 17:28:54 Test Item Value Reference Range Interpretation Comments POC-GLUCOSE METER 334 mg/dL 70-110 H : TESTED A T [facility] 6720 (MASTER) (test code = [place], 1538) [address]: Development Rep/Techni daisy ID = [id number] for Lamberto Puente RAD, CHEST, 1 VIEW, NON [id number] 15:32:00Reason for exam:->evaluate for edema, effusions, currently on P2Kuonqb this [facility]?->YesLIVERMORE SANITARIUMName: CHICHI BIRD : 1940 Sex: FFINALREPORT Exam: [...] focal pneumonia or pulmonaryedema. Signed: [place] Bey Verified Date/Time: 01/23/2022 15:32:45 B-TYPE NATRIURETIC FACTOR (BNP)2022-01-23 14:27:37 Test Item Value Reference Range Interpretation Comments B-TYPE NATRIURETIC PEPTIDE (RAULITO) 130 pg/mL 0-100 H (test code = 700) Development Rep ID - ADMINPOCT-GLUCOSE [id number] 12:07:10 Test Item Value Reference Range Interpretation Comments POC-GLUCOSE METER 260 mg/dL 70-110 H : [facility]) (test code = [facility], 1538) 45790: Development Rep/Techni daisy ID = [id number] for Lamberto Puente HIV-1 ANTIGEN WITH HIV-1/2 [id number] 11:29:35 Test Item Value Reference Range Interpretation Comments HIV-1 ANTIGEN WITH HIV 1\\T\\2 Nonreactive Nonreactive ANTIBODY (2) ([facility]) (test code = 2586) Development Rep ID - ADMINHEMOGLOBIN [id number] 10:24:05 Test Item Value Reference Range Interpretation Comments HEMOGLOBIN A1C 10.4 % See_Comment H [Automated m essage] ELECTROPHORESIS ([facility]) The system which (test code = 3811) generated this result transmitted ref erence range: <=5.6%. The reference range was not used to int erpret this result as normal/abnormal . "The A1c is measured using a NGSP-certified method. HbA1c value equal to or greater than 6.5% as thediagnosis cutoff for diabetes. An HbA1c value of 5.7- 6.4% indicates increased risk for diabetes (prediabetes)."Development Rep ID - ADMPOCT- GLUCOSE [id number] 09:48:11 Test Item Value Reference Range Interpretation Comments POC-GLUCOSE METER 370 mg/dL 70-110 H : TESTED A T [facility] 6720 ([facility]) (test code = [facility], 153) 91529: Development Rep/Techni daisy ID = [id number] for Lamberto Puente POCT-GLUCOSE [id number] 09:48:10 Test Item Value Reference Range Interpretation Comments POC-GLUCOSE METER 335 mg/dL 70-110 H : Notified RN/MD: (MASTER) (test code = TESTED AT [facility] 6720 1538) [facility], [address]: Development Rep/Techni daisy ID = [id number] for Pamela Marks LIPID [id number] 08:46:58 Test Item Value Reference Range Interpretation [...] Borderline 130-159 High 160-189 Very High >=190 Development Rep ID - SARA WMR, MRA, BRAIN, WITHOUT [id number] 08:25:00Reason for exam:- >Ischemic Stroke Evaluation, dysarthria [facility] : 1940 Sex: FFINALREPORT MR, [...] arteries: Normal flow-related enhancement within the bilateral REGULATORY AFFAIRS CONSULTANT P1- P2 segments Additional findings: None. MRA [...] 01/23/2022 08:25:45 MR, MRA, NECK, WITHOUT IV [id number] 08:25:00Reason for exam:->Ischemic Stroke EvaluationLIVERMORE SANITARIUMName: CHICHI BIRD : 1940 Sex: FFINALREPORT MR, [...] arteries: Normal flow-related enhancement within the bilateral REGULATORY AFFAIRS CONSULTANT P1- P2 segments Additional findings: None. MRA [...] Verified Date/Time: 01/23/2022 08:25:45 MR, BRAIN, WITHOUT [id number] 08:20:00Reason for exam:->Ischemic Stroke EvaluationLIVERMORE SANITARIUMName: CHICHI BIRD : 1940 Sex: FFINALREPORT MR, [...] [place] MDR[place]ort Verified Date/Time: 01/23/2022 08:20:35 VITAMIN [id number] 07:14:04 Test Item Value Reference Range Interpretation Comments VITAMIN B12 (BEAKER) (test code = 909 pg/mL 213-816 H 774) Development Rep ID - BHUMIKA [id number] 07:02:19 Test Item Value Reference Range Interpretation Comments MAGNESIUM (BEAKER) 2.1 mg/dL 1.6-2.6 Specimen slightly (test code = 627) hemolyzed Development Rep ID - BHUMIKA WBASIC METABOLIC [id number] 07:02:19 Test Item Value Reference Range Interpretation [...] not appl icable for dialysis patien ts Development Rep ID Manny BAI WCBC (HEMOGRAM ONLY)2022-01-23 06:11:42 [...] (BEAKER) (test code = 413) Sodium, random [id number] 03:04:34 Test Item Value Reference Range Interpretation Comments Sodium Urine (test 81 meq/L code = 2955-3) TORO (test code = Reference Range: No TORO) NormalsOperator ID - ADMIN [facility] Nitrogen, random [id number] 03:04:34 Test Item Value Reference Range Interpretation Comments Urea Nitrogen, Ur 325 mg/dL (test code = 3095-7) TORO (test code = Reference Range: No TORO) NormalsOperator ID - ADMIN [facility] [id number] 03:04:34 Test Item Value Reference Range Interpretation Comments Sodium Urine (test 81 meq/L code = 2955-3) TORO (test code = Reference Range: No TORO) NormalsOperator [facility], random [id number] 03:04:34 Test Item Value Reference Range Interpretation Comments Urea Nitrogen, Ur 325 mg/dL (test code = 3095-7) TORO (test code = Reference Range: No TORO) NormalsOperator [place] - [facility] Hospitalodium, random [id number] 03:04:34 Test Item Value Reference Range Interpretation Comments Sodium Urine (test 81 meq/L code = 2955-3) TORO (test code = Reference Range: No TORO) NormalsOperator [facility] HospitalU[facility] Nitrogen, random [id number] 03:04:34 Test Item Value Reference Range Interpretation Comments Urea Nitrogen, Ur 325 mg/dL (test code = 3095-7) TORO (test code = Reference Range: No TORO) NormalsOperator [facility], random [id number] 03:04:34 Test Item Value Reference Range Interpretation Comments Sodium Urine (test 81 meq/L code = 2955-3) TORO (test code = Reference Range: No TORO) NormalsOperator [facility] HospitalUrea Nitrogen, random [id number] 03:04:34 Test Item Value Reference Range Interpretation Comments Urea Nitrogen, Ur 325 mg/dL (test code = 3095-7) TORO (test code = Reference Range: No TORO) NormalsOperator [facility]odium, random [id number] 03:04:34 Test Item Value Reference Range Interpretation Comments Sodium Urine (test 81 meq/L code = 2955-3) TORO (test code = Reference Range: No TORO) NormalsOperator [facility] HospitalUrea Nitrogen, random [id number] 03:04:34 Test Item Value Reference Range Interpretation Comments Urea Nitrogen, Ur 325 mg/dL (test code = 3095-7) TORO (test code = Reference Range: No TORO) [facility]alsOmcleod health clarendonator BannerODIUM, RANDOM [id number] 03:04:34 Test Item Value Reference Range Interpretation Comments SODIUM URINE (BEAKER) (test code = 81 meq/L 243) Reference Range: No NormalsOperator ID - ADMINUREA NITROGEN, RANDOM URINE 2022-01-23 03:04:34 Test Item Value Reference Range Interpretation Comments UREA NITROGEN URINE (BEAKER) (test 325 mg/dL code = 538) Reference Range: No NormalsOperator ID - ADMINCreatinine, random [id number] 03:04:33 Test Item Value Reference Range Interpretation Comments Creatinine, Ur 41.0 mg/dL (test code = 2161-8) TORO (test code = Reference Range: No TORO) NormalsOperator ID - ADMIN [facility] HospitalCreall[facility] health [facility] centerine, random [id number] 03:04:33 Test Item Value Reference Range Interpretation Comments Creatinine, Ur 41.0 mg/dL (test code = 216-8) TORO (test code = Reference Range: No TORO) NormalsOperator ID - ADMIN [facility] HospitalCreatinine, random [id number] 03:04:33 Test Item Value Reference Range Interpretation Comments Creatinine, Ur 41.0 mg/dL (test code = 216-8) TORO (test code = Reference Range: No TORO) NormalsOperator ID - ADMIN [facility] HospitalCreatinine, random [id number] 03:04:33 Test Item Value Reference Range Interpretation Comments Creatinine, Ur 41.0 mg/dL (test code = 216-8) TORO (test code = Reference Range: No TORO) NormalsOperator ID - ADMIN [facility] HospitalCreatinine, random [id number] 03:04:33 Test Item Value Reference Range Interpretation Comments Creatinine, Ur 41.0 mg/dL (test code = 216-8) TORO (test code = Reference Range: No TORO) NormalsOperator ID - ADMIN [facility] HospitalCREMINNEAPOLIS VA HEALTH CARE SYSTEMINE, RANDOM [id number] 03:04:33 Test Item Value Reference Range Interpretation Comments CREATININE URINE (BEAKER) (test 41.0 mg/dL code = 375) Reference Range: No NormalsOperator ID - ADMINPOCT-GLUCOSE [id number] 00:09:08 Test Item Value Reference Range Interpretation Comments POC-GLUCOSE METER 408 mg/dL 70-110 HH : Notified RN/MD: (BEAKER) (test code = TESTED AT [facility] 6720 1538) [place], [address]: Development Rep/Techni daisy ID = [id number] for Pamela Marks U/S, RENAL, [id number] 22:42:00Reason for exam:->acute kidney injury [facility] : 1940 Sex: FFINALREPORT [...] SARS-Co V-2 (test code = target nucleic 90571-2) acids are not detected in thi s [...] revoked sooner. Fact Sheet for Healthcare Providers: https://www.[employer]/Documents/Xp ert%20Xpress%20SAR S%20CoV-2/Fact%20S heets/302-3802%20S ARS-COV-2%20HEALTH CARE%20PROVIDERS%2 0FACT%20SHEET.pdf Fact Sheet for Healthcare Patients: https://www.[employer]/Documents/Xp ert%20Xpress%20SAR S%20CoV-2/Fact%20S heets/302-3801%20S ARS-COV-2%20PATIEN T%20FACT%20SHEET.p df Lab Interpretation Normal (test code = 64169-3) [facility] (Asymptomatic ONLY)2022-01-22 20:55:56 Test Item Value Reference Interpretation Comments Range SARS-COV2/RT-PCR Negative Negative The SARS-Co V-2 (test code = target nucleic 61745-0) acids are not detected in thi s [...] revoked sooner. Fact Sheet for Healthcare Providers: https://www.[employer]/Documents/Xp ert%20Xpress%20SAR S%20CoV-2/Fact%20S heets/302-3802%20S ARS-COV-2%20HEALTH CARE%20PROVIDERS%2 0FACT%20SHEET.pdf Fact Sheet for Healthcare Patients: https://www.[employer]/Documents/Xp ert%20Xpress%20SAR S%20CoV-2/Fact%20S heets/302-3801%20S ARS-COV-2%20PATIEN T%20FACT%20SHEET.p df Lab Interpretation Normal (test code = 97851-0) [facility] (Asymptomatic ONLY)2022-01-22 20:55:56 Test Item Value Reference Interpretation Comments Range SARS-COV2/RT-PCR Negative Negative The SARS-Co V-2 (test code = target nucleic 34330-7) acids are not detected in thi s [...] revoked sooner. Fact Sheet for Healthcare Providers: https://www.[employer]/Documents/Xp ert%20Xpress%20SAR S%20CoV-2/Fact%20S heets/302-3802%20S ARS-COV-2%20HEALTH CARE%20PROVIDERS%2 0FACT%20SHEET.pdf Fact Sheet for Healthcare Patients: https://www[employer]/Documents/Xp ert%20Xpress%20SAR S%20CoV-2/Fact%20S heets/302-3801%20S ARS-COV-2%20PATIEN T%20FACT%20SHEET.p df Lab Interpretation Normal (test code = 62677-5) [facility] (Asymptomatic ONLY)2022-01-22 20:55:56 Test Item Value Reference Interpretation Comments Range SARS-COV2/RT-PCR Negative Negative The SARS-Co V-2 (test code = target nucleic 16553-4) acids are not detected in thi s [...] revoked sooner. Fact Sheet for Healthcare Providers: https://www.[employer]/Documents/Xp ert%20Xpress%20SAR S%20CoV-2/Fact%20S heets/302-3802%20S ARS-COV-2%20HEALTH CARE%20PROVIDERS%2 0FACT%20SHEET.pdf Fact Sheet for Healthcare Patients: https://www.[employer]/Documents/Xp ert%20Xpress%20SAR S%20CoV-2/Fact%20S heets/302-3801%20S ARS-COV-2%20PATIEN T%20FACT%20SHEET.p df Lab Interpretation Normal (test code = 74292-5) [facility] (Asymptomatic ONLY)2022-01-22 20:55:56 Test Item Value Reference Interpretation Comments Range SARS-COV2/RT-PCR Negative Negative The SARS-Co V-2 (test code = target nucleic 36470-6) acids are not detected in thi s [...] revoked sooner. Fact Sheet for Healthcare Providers: https://www.[employer]/Documents/Xp ert%20Xpress%20SAR S%20CoV-2/Fact%20S heets/302-3802%20S ARS-COV-2%20HEALTH CARE%20PROVIDERS%2 0FACT%20SHEET.pdf Fact Sheet for Healthcare Patients: https://www.[employer]/Documents/Xp ert%20Xpress%20SAR S%20CoV-2/Fact%20S heets/302-3801%20S ARS-COV-2%20PATIEN T%20FACT%20SHEET.p df Lab Interpretation Normal (test code = 98850-4) [facility]2022-01-22 20:55:56 Test Item Value Reference Range Interpretation Comments SARS-COV2/RT-PCR Negative Negative The SARS-Co V-2 target (test code = nucleic acids a re not 0662797) detected in thi s specimen. Negative result [...] revoked sooner. Fact Sheet for Healthcare Providers: https://www.[employer]/Documents/Xpert%20Xpress%20SARS%20CoV-2/Fact%20Sheets/302-3802%31YSVF-LDH-6%20 HEALTHCARE%20PROVIDERS%20FACT%20SHEET.pdf Fact Sheet for Healthcare Patients: https://www.[employer]/Documents/Xpert%20Xp ress%20SARS%20CoV-2/Fact%20Sheets/302-3801%89DQLF-HSB-5%20PATIENT%20FACT%20SHEET .pdfUrinalysis w/Microscopic + Reflex to [id number] 15:58:03 Test Item Value Reference Range Interpretation Comments Color, UA (test code Yellow = 5778-6) Clarity, UA (test Hazy code = 5767-9) Specific [place], UA 1.012 1.001-1.035 (test code = 5811-5) pH, UA (test code = 6.0 5.0-8.0 5803-2) Protein, UA (test 30 mg/dL Negative A code = 33681-3) Glucose, UA (test Negative Negative code = 365) Ketones, UA (test Negative Negative code = 2514-8) Bilirubin, UA (test Negative Negative code = 69550-7) Blood, UA (test code Negative Negative = 61210-5) Nitrite, UA (test Negative Negative code = 5802-4) Leukocytes, UA (test Large Negative A code = 5799-2) Urobilinogen, UA 0.2 0.2-1.0 (test code = 43946-4) RBC, UA (test code = 1 See_Comment [Autom ated 40135-4) message] The system which generated this result [...] 1 See_Comment [Automate d (test code = 64692-5) messag e] The system which generated this result transmit clemente reference range : /HPF. The reference range was not used to interpret this result as normal/abnormal . Specimen Source (test code = 2795) TORO (test code = TORO) Development Rep ID - [auto]Development Rep ID - tech Lab Interpretation Abnormal (test code = 78903-6) [facility] 2022-01-22 15:58:03 Test Item Value Reference Range Interpretation Comments Color, UA (test code Yellow = 5778-6) Clarity, UA (test Hazy code = 5767-9) Specific [place], UA 1.012 1.001-1.035 (test code = 5811-5) pH, UA (test code = 6.0 5.0-8.0 5803-2) Protein, UA (test 30 mg/dL Negative A code = 26666-7) Glucose, UA (test Negative Negative code = 365) Ketones, UA (test Negative Negative code = 2514-8) Bilirubin, UA (test Negative Negative code = 89392-1) Blood, UA (test code Negative Negative = 74374-8) Nitrite, UA (test Negative Negative code = 5802-4) Leukocytes, UA (test Large Negative A code = 5799-2) Urobilinogen, UA 0.2 0.2-1.0 (test code = 62041-5) RBC, UA (test code = 1 See_Comment [Autom ated 15135-5) message] The system which generated this result [...] 1 See_Comment [Automate d (test code = 41224-7) messag e] The system which generated this result transmit clemente reference range : /HPF. The reference range was not used to interpret this result as normal/abnormal . Specimen Source (test code = 2795) TORO (test code = TORO) Development Rep ID - [auto]Development Rep ID - tech Lab Interpretation Abnormal (test code = 50095-7) [facility] Culture 2022-01-22 15:58:03 Test Item Value Reference Range Interpretation Comments Color, UA (test code Yellow = 5778-6) Clarity, UA (test Hazy code = 5767-9) Specific [place], UA 1.012 1.001-1.035 (test code = 5811-5) pH, UA (test code = 6.0 5.0-8.0 5803-2) Protein, UA (test 30 mg/dL Negative A code = 44094-0) Glucose, UA (test Negative Negative code = 365) Ketones, UA (test Negative Negative code = 2514-8) Bilirubin, UA (test Negative Negative code = 80912-3) Blood, UA (test code Negative Negative = 47199-9) Nitrite, UA (test Negative Negative code = 5802-4) Leukocytes, UA (test Large Negative A code = 5799-2) Urobilinogen, UA 0.2 0.2-1.0 (test code = 61177-9) RBC, UA (test code = 1 See_Comment [Autom ated 85443-0) message] The system which generated this result [...] 1 See_Comment [Automate d (test code = 34416-2) messag e] The system which generated this result transmit clemente reference range : /HPF. The reference range was not used to interpret this result as normal/abnormal . Specimen Source (test code = 2795) TORO (test code = TORO) Development Rep ID - [auto]Development Rep ID - tech Lab Interpretation Abnormal (test code = 72439-3) [facility]lex [facility] Culture 2022-01-22 15:58:03 Test Item Value Reference Range Interpretation Comments Color, UA (test code Yellow = 5778-6) Clarity, UA (test Hazy code = 5767-9) Specific [place], UA 1.012 1.001-1.035 (test code = 5811-5) pH, UA (test code = 6.0 5.0-8.0 5803-2) Protein, UA (test 30 mg/dL Negative A code = 91257-2) Glucose, UA (test Negative Negative code = 365) Ketones, UA (test Negative Negative code = 2514-8) Bilirubin, UA (test Negative Negative code = 53749-6) Blood, UA (test code Negative Negative = 22291-7) Nitrite, UA (test Negative Negative code = 5802-4) Leukocytes, UA (test Large Negative A code = 5799-2) Urobilinogen, UA 0.2 0.2-1.0 (test code = 09751-2) RBC, UA (test code = 1 See_Comment [Autom ated 70530-7) message] The system which generated this result [...] 1 See_Comment [Automate d (test code = 26883-1) messag e] The system which generated this result transmit clemente reference range : /HPF. The reference range was not used to interpret this result as normal/abnormal . Specimen Source (test code = 2795) TORO (test code = TORO) Development Rep ID - [auto]Development Rep ID - tech Lab Interpretation Abnormal (test code = 99746-0) [facility] Reflex to Culture 2022-01-22 15:58:03 Test Item Value Reference Range Interpretation Comments Color, UA (test code Yellow = 5778-6) Clarity, UA (test Hazy code = 5767-9) Specific [place], UA 1.012 1.001-1.035 (test code = 5811-5) pH, UA (test code = 6.0 5.0-8.0 5803-2) Protein, UA (test 30 mg/dL Negative A code = 40842-6) Glucose, UA (test Negative Negative code = 365) Ketones, UA (test Negative Negative code = 2514-8) Bilirubin, UA (test Negative Negative code = 61151-1) Blood, UA (test code Negative Negative = 18991-0) Nitrite, UA (test Negative Negative code = 5802-4) Leukocytes, UA (test Large Negative A code = 5799-2) Urobilinogen, UA 0.2 0.2-1.0 (test code = 19459-2) RBC, UA (test code = 1 See_Comment [Autom ated 70835-4) message] The system which generated this result [...] 1 See_Comment [Automate d (test code = 40786-5) messag e] The system which generated this result transmit clemente reference range : /HPF. The reference range was not used to interpret this result as normal/abnormal . Specimen Source (test code = 2795) TORO (test code = TORO) Development Rep ID - [auto]Development Rep ID - tech Lab Interpretation Abnormal (test code = 55990-1) [facility] [id number] 15:58:03 Test Item Value Reference Range Interpretation [...] = 516) SOURCE(BEAKER) (test code = 2795) Development Rep ID - [auto]Development Rep ID - techCOMPREHENSIVE METABOLIC [id number] 15:35:37 Test Item Value Reference Range Interpretation [...] not appl icable for dialysis patien ts Development Rep ID - [id number] 15:31:08 Test Item Value Reference Range Interpretation Comments MAGNESIUM (BEAKER) (test code = 2.0 mg/dL 1.6-2.6 627) Development Rep ID - BSCBC W/PLT COUNT & AUTO [id number] 15:07:18 Test Item Value Reference Range Interpretation [...] (BEAKER) (test code = 2801) CT, CTANGIO [id number] 14:59:00Reason for exam:->Symptoms onset less than 6 hours and NIHSS 6 or greater [facility] 1940 Sex: FFINAL REPORT CLINICAL HISTORY: Neuro deficit, acute, stroke suspectedSymptoms onset less than 6 hours and NIHSS 6 or greater TECHNIQUE: Contiguous contrast-enhanced axial images throughthe neck followed by axial images through the [...] Angiogram There is no evidence for a [place] large vessel occlusion. There is no critical branch vessel stenosis or aneurysm. The major intradural venous [...] or territorial hypoperfusion. No evidence for a [place] large vessel occlusion. No evidence of hemodynamically significant stenosis in the cervical carotid or vertebral arteries by NASCET cri teria. Signed: Tima Rosa MDReport Verified Date/Time: 01/22/2022 14:59:39 [facility], CAROTID, [id number] 14:59:00Reason for exam:->Symptoms onset less than 6 hours and NIHSS 6 or greater [facility] : 1940 Sex: FFINALREPORT CLINICAL [...] Angiogram There is no evidence for a [place] large vessel occlusion. There is [...] or territorial hypoperfusion. No evidence for a [place] large vessel occlusion. No evidence of hemodynamically significant stenosis in the cervical carotid or vertebral arteries by NASCET criteria. Signed: Tima Rosa MDReport Verified Date/Time: 01/22/2022 14:59:39 [facility] CEREBRAL PERFUSION ANALYSIS 2022-01-22 14:59:00Reason for exam:->Symptom onset less than 6 hours and NIHSS 6 or greater [facility] : 1940 Sex: FFINALREPORT CLINICAL [...] Angiogram There is no evidence for a [place] large vessel occlusion. There is [...] or territorial hypoperfusion. No evidence for a [place] large vessel occlusion. No evidence of hemodynamically significant stenosis in the cervical carotid or vertebral arteries by NASCET criteria. Signed: Tima Rosa MDReport Verified Date/Time: 01/22/2022 14:59:39 CT, BRAIN/STROKE [id number] 13:51:00[facility] : 1940 Sex: FFINALREPORT [...] recommended for further characterization. Signed: Siena Shaver MDRepvan Verified Date/Time: 01/22/2022 13:51:06 Microalbumin/Creat Ratio, Random [id number] 00:00:00 Test Item Value Reference Range Interpretation Comments Creatinine, Urine (test code = 2161-8) 62.3 Not Estab. Albumin, Urine (test code = 64000-0) 472.6 Not Estab. Alb/Creat Ratio (test code = 19583-6) 759 0-29 POCT-GLUCOSE [id number] 11:31:00 Test Item Value Reference Range Interpretation Comments POC-GLUCOSE METER 193 mg/dL 70-110 H : TESTED A T [facility] 6720 (BEAKER) (test code = [facility], 1538) [address]: Development Rep/Techni daisy ID = [id number] for CR UZ ARPAN, ODILI A POCT-GLUCOSE [id number] 08:31:00 Test Item Value Reference Range Interpretation Comments POC-GLUCOSE METER 230 mg/dL 70-110 H : TESTED A T [facility] 6720 (BEAKER) (test code = [facility], 1538) 71063: Development Rep/Techni daisy ID = [id number] for CR UZ ARPAN, ODILI A BASIC METABOLIC [id number] 05:55:00 Test Item Value Reference Range Interpretation [...] S NOT APPLICABLE FOR DIALYSIS PATIEN TS. Development Rep ID - PETER MCBC W/PLT COUNT & AUTO [id number] 05:31:00 Test Item Value Reference Range Interpretation [...] PERCENT (BEAKER) (test code = 2801) POCT-GLUCOSE [id number] 21:21:00 Test Item Value Reference Range Interpretation Comments POC-GLUCOSE METER 137 mg/dL 70-110 H : Notified RN/MD: (AKER) (test code = TESTED AT [place] [address] 1538) [facility], [address]: Development Rep/Techni daisy ID = [id number] for ONDINA BROWNLEE [id number] 17:06:00 Test Item Value Reference Range Interpretation Comments ACTIVATED CLOTTING TIME 164 sec : 74 -137 seconds, (BEAKER) (test code = Pandameggan ne: TESTED AT [facility]) [address], [address]: Development Rep/Techni daisy ID = [id number] for FE RRARI JACKIE, CLAUDE [id number] 16:53:00 Test Item Value Reference Range Interpretation Comments ACTIVATED CLOTTING TIME 175 sec : 74 -137 seconds, (BEAKER) (test code = Baseli ne: TESTED AT [facility]) [address], [address]: Development Rep/Techni daisy ID = [id number] for FE RRARI JACKIE, CLAUDE [id number] 16:53:00 Test Item Value Reference Range Interpretation Comments ACTIVATED CLOTTING TIME 208 sec : 74 -137 seconds, (BEAKER) (test code = Pandai ne: TESTED AT [facility]) [address], [address]: Development Rep/Techni daisy ID = [id number] for FE RRARI JACKIE, CLAUDE [id number] 16:06:00 Test Item Value Reference Range Interpretation Comments ACTIVATED CLOTTING TIME 296 sec : 74 -137 seconds, (BEAKER) (test code = Pandameggan ne: TESTED AT [facility]) [address], [address]: Development Rep/Techni daisy ID = [id number] for FE RRARI JACKIE, CLAUDE POCT-GLUCOSE [id number] 12:21:00 Test Item Value Reference Range Interpretation Comments POC-GLUCOSE METER 127 mg/dL 70-110 H : TESTED A T [place] [address] (BEAKER) (test code = [facility], 1538) [address]: Development Rep/Techni daisy ID = [id number] for Constance David POCT-GLUCOSE [id number] 08:51:00 Test Item Value Reference Range Interpretation Comments POC-GLUCOSE METER 163 mg/dL 70-110 H : TESTED Yifan Linder [facility] 6720 (BEAKER) (test code = [place], 1538) [address]: Development Rep/Techni daisy ID = [id number] for Constance David BASIC METABOLIC [id number] 06:38:00 Test Item Value Reference Range Interpretation [...] S NOT APPLICABLE FOR DIALYSIS PATIEN TS. Development Rep ID - BHUMIKA WCBC W/PLT COUNT & AUTO [id number] 05:45:00 Test Item Value Reference Range Interpretation [...] PERCENT (BEAKER) (test code = 2801) POCT-GLUCOSE [id number] 22:11:00 Test Item Value Reference Range Interpretation Comments POC-GLUCOSE METER 210 mg/dL 70-110 H : TESTED A T [facility] 6720 (BEAKER) (test code = [facility], 1538) [address]: Development Rep/Techni daisy ID = [id number] for Gertrude Waldrop POCT-GLUCOSE [id number] 18:24:00 Test Item Value Reference Range Interpretation Comments POC-GLUCOSE METER 157 mg/dL 70-110 H : TESTED A T [facility] 6720 (BEAKER) (test code = [facility], 1538) [address]: Development Rep/Techni daisy ID = [id number] for Wanda Wakefield POCT-GLUCOSE [id number] 12:10:00 Test Item Value Reference Range Interpretation Comments POC-GLUCOSE METER 146 mg/dL 70-110 H : TESTED A T [facility] 6720 (BEAKER) (test code = [facility], 1538) [address]: Development Rep/Techni daisy ID = [id number] for Wanda Wakefield POCT-GLUCOSE [id number] 08:39:00 Test Item Value Reference Range Interpretation Comments POC-GLUCOSE METER 113 mg/dL 70-110 H : TESTED A T [facility] 6720 (BEAKER) (test code = [facility], 1538) 99106: Development Rep/Techni daisy ID = [id number] for Wanda Wakefield BASIC METABOLIC [id number] 06:06:00 Test Item Value Reference Range Interpretation [...] S NOT APPLICABLE FOR DIALYSIS PATIEN TS. Development Rep ID - PIAYA LCBC W/PLT COUNT & AUTO [id number] 05:24:00 Test Item Value Reference Range Interpretation [...] PERCENT (BEAKER) (test code = 2801) POCT-GLUCOSE [id number] 21:49:00 Test Item Value Reference Range Interpretation Comments POC-GLUCOSE METER 158 mg/dL 70-110 H : TESTED A T [facility] 6720 (BEAKER) (test code = [facility], 1538) 27158: Development Rep/Techni daisy ID = [id number] for Manuel Marcelino POCT-GLUCOSE [id number] 18:10:00 Test Item Value Reference Range Interpretation Comments POC-GLUCOSE METER 152 mg/dL 70-110 H : TESTED A T [facility] 6720 (BEAKER) (test code = [facility], 1538) 07257: Development Rep/Techni daisy ID = [id number] for Constance David basim POCT-GLUCOSE [id number] 12:52:00 Test Item Value Reference Range Interpretation Comments POC-GLUCOSE METER 149 mg/dL 70-110 H : TESTED A T [facility] 6720 (BEAKER) (test code = [facility], 1538) 49741: Development Rep/Techni daisy ID = [id number] for Constance David basim POCT-GLUCOSE [id number] 09:18:00 Test Item Value Reference Range Interpretation Comments POC-GLUCOSE METER 141 mg/dL 70-110 H : TESTED A T [facility] 6720 (BEAKER) (test code = [facility], 1538) 61101: Development Rep/Techni daisy ID = [id number] for Constance David basim BASIC METABOLIC [id number] 07:12:00 Test Item Value Reference Range Interpretation [...] S NOT APPLICABLE FOR DIALYSIS PATIEN TS. Development Rep ID - DBCBC W/PLT COUNT & AUTO [id number] 06:50:00 Test Item Value Reference Range Interpretation [...] PERCENT (BEAKER) (test code = 2801) POCT-GLUCOSE [id number] 23:42:00 Test Item Value Reference Range Interpretation Comments POC-GLUCOSE METER 245 mg/dL 70-110 H : TESTED A T [facility] 6720 [facility] (test code = [facility]) [address]83: Development Rep/Techni daisy ID = [id number] for Manuel Marcelino POCT-GLUCOSE [id number] 17:40:00 Test Item Value Reference Range Interpretation Comments POC-GLUCOSE METER 225 mg/dL 70-110 H : TESTED A T [facility] 6720 (BEAKER) (test code = [facility], 153) 1975[address]: Development Rep/Techni daisy ID = [id number] for Igbalajobi, She basim POCT-GLUCOSE [id number] 13:07:00 Test Item Value Reference Range Interpretation Comments POC-GLUCOSE METER 224 mg/dL 70-110 H : TESTED A T [facility] 6720 (BEAKER) (test code = [facility], 153) 838[address]: Development Rep/Techni daisy ID = [id number] for Igbalajobi, She basim POCT-GLUCOSE [id number] 09:47:00 Test Item Value Reference Range Interpretation Comments POC-GLUCOSE METER 162 mg/dL 70-110 H : TESTED A T [facility] 6720 (BEAKER) (test code = [facility], 153) 41797: Development Rep/Techni daisy ID = [id number] for Igbalajobi, She basim PLATELET AGGREGATION: FUNCTION [id number] 09:33:00 Test Item Value Reference Range Interpretation Comments [id number] Jw Garcia M.D. (BEAKER) (test code = (electonic signature) 2622) PLATELET COUNT AGG 246 K/CU MM 150-450 (BEAKER) (test code = 4766) ADP (BEAKER) (test code 25 % 62-100 L = 4654) PLATELET RICH 271 k/cu mm 200-300 PLASMA(BEAKER) (test code = 2134) PLATELET FUNCTION SCREEN Decreased aggregation INTERPRETATION (BEAKER) with ADP which (test code = 2440) indicates platelet dysfunction that may be due to medication effect, uremia, or other platelet function disorders. Clinical correlation is required. Platelet Function Screen results may be falsely low with platelet counts<75,000/cu mm.Development Rep ID- 6000BASIC METABOLIC [id number] 04:41:00 Test Item Value Reference Range Interpretation [...] S NOT APPLICABLE FOR DIALYSIS PATIEN TS. Development Rep ID - EDASICBC W/PLT COUNT & AUTO [id number] 04:24:00 Test Item Value Reference Range Interpretation [...] PERCENT (BEAKER) (test code = 2801) POCT-GLUCOSE [id number] 21:48:00 Test Item Value Reference Range Interpretation Comments POC-GLUCOSE METER 236 mg/dL 70-110 H : TESTED A T [facility] 6720 (BEAKER) (test code = [place], 1538) [address]: Development Rep/Techni daisy ID = [id number] for Cassie Abdi POCT-GLUCOSE [id number] 17:47:00 Test Item Value Reference Range Interpretation Comments POC-GLUCOSE METER 224 mg/dL 70-110 H : TESTED A T [facility] 6720 (BEAKER) (test code = [place], 1538) 92492: Development Rep/Techni daisy ID = [id number] for CAITLIN KENNEY POCT-GLUCOSE [id number] 13:24:00 Test Item Value Reference Range Interpretation Comments POC-GLUCOSE METER 245 mg/dL 70-110 H : TESTED A T [facility] 6720 (BEAKER) (test code = [place], 1538) [address]: Development Rep/Techni daisy ID = [id number] for Alanna Garces RAD, CHEST, 1 VIEW, NON [id number] 11:21:00Reason for exam:->preop evalShould this be performed at the bedside?->Yes [facility] 1940 Sex: FFINAL REPORT EXAMINATION: RAD, CHEST, 1 VIEW, NON DEPT. INDICATION: 79-year-old female, preoperative examination. COMPARISON: None. FINDINGS:Mild to moderate cardiomegaly. Pulmonary dasha and vasculature are within normal limits. No evidence of consolidation. No pleural effusion. No pneumothorax. Mwkq-ay-jnffdodx degenerative changes of the bilateral shoulders. Visualized soft tissues are unremarkable. IMPRESSION:No evidence of pneumonia or other acute cardiopulmonary abnormality. Mild to moderate cardiomegaly. Signed: More Santiagoort Verified Date/Time: 07/05/2020 11:21:30 Reading Location: [place] [id number] CT Body Reading Room POCT-GLUCOSE [id number] 08:59:00 Test Item Value Reference Range Interpretation Comments POC-GLUCOSE METER 195 mg/dL 70-110 H : TESTED A T [facility] 6720 (BEAKER) (test code = [place], 1538) [address]: Development Rep/Techni daisy ID = [id number] for CAITLIN KENNEY BASIC METABOLIC [id number] 06:20:00 Test Item Value Reference Range Interpretation [...] S NOT APPLICABLE FOR DIALYSIS PATIEN TS. Development Rep ID - EDASICBC W/PLT COUNT & AUTO [id number] 05:33:00 Test Item Value Reference Range Interpretation [...] PERCENT (BEAKER) (test code = 2801) POCT-GLUCOSE [id number] 20:52:00 Test Item Value Reference Range Interpretation Comments POC-GLUCOSE METER 292 mg/dL 70-110 H : TESTED Yifan T [facility] 6720 (BEAKER) (test code = [place], 1538) [address]: Development Rep/Techni daisy ID = [id number] for Cassie Abdi POCT-GLUCOSE [id number] 19:01:00 Test Item Value Reference Range Interpretation Comments POC-GLUCOSE METER 294 mg/dL 70-110 H : TESTED A T [facility] 6720 (BEAKER) (test code = [facility], 1538) 84310: Development Rep/Techni daisy ID = [id number] for Constance David POCT-GLUCOSE [id number] 12:40:00 Test Item Value Reference Range Interpretation Comments POC-GLUCOSE METER 159 mg/dL 70-110 H : TESTED A T [facility] 6720 (BEAKER) (test code = [facility], 1538) 66694: Development Rep/Techni daisy ID = [id number] for Constance David basim POCT-GLUCOSE [id number] 09:34:00 Test Item Value Reference Range Interpretation Comments POC-GLUCOSE METER 101 mg/dL 70-110 : TESTED A T [facility] 6720 (BEAKER) (test code = [facility], 1538) 61827: Development Rep/Techni daisy ID = [id number] for Constance David basim HEMOGLOBIN [id number] 08:28:00 Test Item Value Reference Range Interpretation Comments HEMOGLOBIN A1C (BEAKER) (test code = 9.6 % 4.3-6.1 H 368) TSH/FREE T4 IF [id number] 06:08:00 Test Item Value Reference Range Interpretation Comments THYROID STIMULATING HORMONE 0.972 uIU/mL 0.350-4.940 (BEAKER) (test code = 772) Development Rep ID - EDASIBASIC METABOLIC [id number] 05:44:00 Test Item Value Reference Range Interpretation [...] S NOT APPLICABLE FOR DIALYSIS PATIEN TS. Development Rep ID - EDASICBC W/PLT COUNT & AUTO [id number] 05:22:00 Test Item Value Reference Range Interpretation [...] (BEAKER) (test code = 2801) SARS-COV2/RT-PCR ([facility])2020-07-04 03:49:00 Test Item Value Reference Range Interpretation Comments SARS-COV2/RT-PCR (test Negative Not Detected, Negative, code = 7151057) See external report for linked test SARS-COV-2 PERFORMING LAB [facility] (test code = 2922143) Negative result for this test determines that [...] the Hughes SARS-CoV-2 assay.Fact Sheet for Healthcare Providers:https://www.[employer].ACell/jaylene/RT_SAR D-OxK-6_VKJ_Liba_Jvzvh_94-214329.pdfFact Sheet for Healthcare Patients:https://www.[employer].ACell/s al/WI_OTSJ-JmG-2_Ibhwnyd_Docy_Jgxig_FT_48-157896I2.pdfPerforming Laboratory:[place] [address] [place] [address] POCT-GLUCOSE [id number] 23:10:00 Test Item Value Reference Range Interpretation Comments POC-GLUCOSE METER 302 mg/dL 70-110 H : TESTED A T [facility] 6720 (BEAKER) (test code = [facility], 1538) [address]: Development Rep/Techni daisy ID = [id number] for Manuel Marcelino BASIC METABOLIC [id number] 18:18:00 Test Item Value Reference Range Interpretation [...] S NOT APPLICABLE FOR DIALYSIS PATIEN TS. Development Rep ID - ADMINHEPATIC FUNCTION [id number] 18:18:00 Test Item Value Reference Range Interpretation [...] (test code = 28 U/L 6-55 347) Development Rep ID - ADMINPROTHROMBIN [id number] 18:15:00 Test Item Value Reference Range Interpretation Comments PROTIME (BEAKER) 14.0 seconds 11.9-14.2 (test code = 759) INR (BEAKER) (test 1.11 See_Comment [Automat ed message] code = 370) The system Flashstart[employer] generated this result transmitted ref erence range: [...] mechanical heart valves.CBC W/PLT COUNT & AUTO [id number] 18:00:00 Test Item Value Reference Range Interpretation [...] PERCENT (BEAKER) (test code = 2801) POCT-GLUCOSE [id number] 17:50:00 Test Item Value Reference Range Interpretation Comments POC-GLUCOSE METER 187 mg/dL 70-110 H : TESTED A T [facility] 6720 (BEAKER) (test code = [place], 1538) [address]: Development Rep/Techni daisy ID = [id number] for Constance David [id number] 16:34:00 RUN DATE: 10/19/18 [facility] - LAB *LIVE* PAGE 1 RUN TIME: 1634 Specimen Inquiry RUN USER: INTERFACE PATIENT: MEGHNA BIRD LOC: MAGGIE U #: [id number] AGE/SX: 77/F [facility] RE10/12/18REG DR: Alfredo Cantu MD : 41 BED: 1 DIS: 10/13/18 STATUS: DIS Marcela TLOC: - SPEC #: [id number] RECD: 10/16/18 STATUS: GARDENIA LONGORIA #: [id number] JENNA: 10/13/[address]: Alfredo Cantu MD ENTERED: 07/29/19-1303 SP TYPE: SURG OTHR DR: Thao Crooks MD, Nizam Mohammad MD [place], Frank E MDORDERED: AB/PAS MAUREEN, SURG PATH LVL 4, PATH STAIN GROU COPIES TO: Thao Crooks MD [address] [place] [address] [place] [address] [place] [address] [email or web address] Baldemar Simeon MD [address] [place] [address] Babar Wang MD [address] [facility] [address] [place] [address] HISTOLOGY: TISSUE ID BLK PCS ALFREDO LEV PROCEDURE DISPOSITION ____ ___ ___ ___ STOMACH, NOS A 1 1 AB/PAS MAUREEN STOMACH, NOS A 1 2 PATH STAIN GROU PROCEDURES:ALBLUE (10/16/18-1303) PAS (10/16/18) SURG PATH LVL 4 (10/16/18) PATH STAIN GROU (10/16/18) TISSUES: A. STOMACH, NOS - GASTRIC POLYP ADENO MASS CONTINUED ON NEXT PAGE WILBUR Cantu DATE: 10/19/18 [facility] - LAB *LIVE* PAGE 2 RUN TIME: 1634 Specimen Inquiry RUN USER: INTERFACE -------- ----SPEC #: [facility]:[id number] PATIENT: MEGHNA BIRD #[id number] (Continued) CLINICAL HISTORY HX CA LG INTESTINE -Z85.038; DYSPEPSIA-K30; PAIN -R10.9 CPT CODES CPT CODE(S): 00544 , 31263 , 59507 , , , , FINAL DIAGNOSIS Stomach, polypectomy: CHRONIC GASTRITIS WITH INTESTINAL METAPLASIA NEGATIVE FOR DYSPLASIA OR MALIGNANCY NEGATIVE FOR HELICOBACTER PYLORI ORGANISMS GROSS DESCRIPTION Gastric polyp. Received in formalin are two mendiola tissue fragments, 0.2 cm each, all as A. ba/nr Grossing performed at [facility] Pathology, [address] [facility] [address], [address], [place] [address]. Cutting And Printing Machine Operator: Carlos Sargent M.D. MICROSCOPIC DESCRIPTION Gastric polyp. Sections demonstrate gastric mucosa with chronic inflammation. No dysplasia or malignancy is seen. Alcian blue-PAS confirms the presence of focal intestinal metaplasia. No dysplasia or malignancy is identified. The Diff Quik stain demonstrates no evidence of Helicobacter pylori organi sms. Signed SIGNATURE ON FILE Nain Lott Jamal 10/19/18 1634 END OF REPORT GLUCOSE BEDSIDE [id number] 16:38:00 Test Item Value Reference Range Interpretation Comments GLUCOSE BEDSIDE TESTING (test code 174 mg/dL 70-110 H = GLUBED) GLUCOSE BEDSIDE [id number] 15:01:00 Test Item Value Reference Range Interpretation Comments GLUCOSE BEDSIDE TESTING (test code 193 mg/dL 70-110 H = GLUBED) GLUCOSE BEDSIDE [id number] 12:01:00 Test Item Value Reference Range Interpretation Comments GLUCOSE BEDSIDE TESTING (test code 178 mg/dL 70-110 H = GLUBED) GLUCOSE BEDSIDE [id number] 07:56:00 Test Item Value Reference Range Interpretation Comments GLUCOSE BEDSIDE TESTING (test code 191 mg/dL 70-110 H = GLUBED) BASIC METABOLIC [id number] 03:36:00 Test Item Value Reference Range Interpretation [...] CA) 8.5 MG/DL 8.5-10.1 N CBC W/AUTO [id number] 03:27:00 Test Item Value Reference Range Interpretation [...] = NO DIFF/SCN CRITERIA MDIFF) GLUCOSE BEDSIDE [id number] 21:07:00 Test Item Value Reference Range Interpretation Comments GLUCOSE BEDSIDE TESTING (test code 186 mg/dL 70-110 H = GLUBED) GLYCOSYLATED HEMOGLOBIN [id number] 17:49:00 Test Item Value Reference Range Interpretation Comments GLYCOSYLATED HEMOGLOBIN (HA1C) 8.2 % A1C 4.2-6.3 H (test code = GLYHGB) ESTIMATED AVERAGE GLUCOSE (test 189 MG/DLest code = EAG) COMPREHENSIVE METABOLIC [id number] 17:45:00 Test Item Value Reference Range Interpretation [...] = LDL/HDL) 1.61 Ratio 1.48-3.22 Avg N [id number] 17:45:00 Test Item Value Reference Range Interpretation Comments PHOSPHOROUS (test code = PHOS) 2.7 MG/DL 2.5-4.9 N RULE OUT [place] [id number] 17:45:00 Test Item Value Reference Range Interpretation [...] nume rical results may timothy yby method. [id number] 17:45:00 Test Item Value Reference Range Interpretation Comments MAGNESIUM (test code = MAG) 2.0 MG/DL 1.8-2.4 N THROMBOPLASTIN TIME [id number] 17:37:00 Test Item Value Reference Range Interpretation Comments THROMBOPLASTIN TIME PARTIAL 30.9 SECONDS 26-35 N (test code = PTT) PROTHROMBIN [id number] 17:36:00 Test Item Value Reference Range Interpretation Comments PT PATIENT (test code = PTP) 13.3 SECONDS 9.3-12.9 H INTERNATIONAL NORMAL RATIO 1.15 INR Unit 0.8-1.2 N (test code = INR) CBC W/AUTO [id number] 17:34:00 Test Item Value Reference Range Interpretation [...] DIFF/SCN CRITERIA MDIFF) - XR CHEST 1 [id number] 17:02:00 Name: MEGHNA BIRD [place] : 1940 Age/S: 77 / F [address] Unit #: [id number] Loc: [place] [address] Phys: Alfredo Cantu MD Acct: [id number] Dis Date: Status: ADM IN PHONE #: [phone] Exam Date: 10/12/2018 1640 FAX #: Reason: CAD EXAMS: CPT: [id number] XR CHEST 1 G16139 Fluoro Time: DAP (Gy m2): Air Kerma [...] PAGE 1 Signed Report Name: MEGHNA BIRD [place] : 1940 Age/S: 77 / F [address] Unit #: [id number] Loc: [place] [address] Phys: Alfredo Cantu MD Acct: [id number] Dis Date: Status: ADM IN PHONE #: [phone] Exam Date: 10/12/2018 1640 FAX #: Reason: CAD EXAMS: CPT: [id number] XR CHEST 1 V 47576 Fluoro Time: DAP (Gy m2): Air Kerma (mGy): (Continued) Technologist: Harsha Carr, RT(R)(CT)(MRI) Trnscb Date/Time: 10/12/2018 (1702) [id number] Orig Print D/T: S: 10/12/2018 (0886) PAGE 2 SignedReportGLUCOSE BEDSIDE [id number] 15:59:00 Test Item Value Reference Range Interpretation Comments GLUCOSE BEDSIDE TESTING (test code 114 mg/dL 70-110 H = GLUBED)
[2022-05-17 08:10] LABS: Absolute Lymphocytes (CBC) 1.1 K/uL (0.7-4.9); Hematocrit 33.3 % (36.0-45.0); Lymphocytes % 11.4 % (15.3-44.8); MCV 82.9 fL (80-100); RBC Red Blood Cell Count 4.01 M/uL (3.86-4.86)
[2022-05-17 08:20] LABS: Urine Blood 3+ (Negative); Urine Glucose Trace (Negative); Urine Protein 3+ (Negative); Urine Specific Gravity 1.025 (1.005-1.030); Urine pH 5.5 (5.0-7.0)
[2022-05-17 08:25] LABS: Potassium 4.4 mmol/L (3.5-5.1)
--- NOTE | 2022-05-17 08:31 | ER ---
Nurse's Notes [facility] Name: Gloria Longoria Age: 81 yrs Sex: Female : 1940 Arrival Date: 05/17/2022 Time: 07:21 Bed 5 Private MD: Addie Cormier Diagnosis: UTI/ Urinary tract infection, site not specified;Hematuria, unspecified Presentation: 05/17 07:35 Chief complaint: Patient's son or daughter states: Daughter states patient has had sg5 bloody urine since Tuesday. Patient does not complain of any pain associated with it. Afebrile. Coronavirus screen: Vaccine status: Patient reports receiving the 2nd dose of the covid vaccine. Client denies travel out of the [place] in the last 14 days. Ebola Screen: No symptoms or risks identified at this time. Initial Sepsis Screen: Does the patient meet any 2 criteria? No. Patient's initial sepsis screen is negative. Does the patient have a suspected source of infection? No. Patient's initial sepsis screen is negative. Risk Assessment: Do you want to hurt yourself or someone else? Patient reports no desire to harm self or others. Onset of symptoms was May 15, 2022. 07:35 Method Of Arrival: Wheelchair sg5 07:35 Acuity: MALAIKA 4 sg5 07:48 Note Patient is legally blind, daughter in room and helps as her caregiver and sg5 historian. 08:10 Acuity: MALAIKA 3 iw Triage Assessment: 07:39 General: Appears comfortable, Behavior is calm, cooperative, appropriate for age. Pain: sg5 Denies pain. Complains of pain in has chronic back pain. : no pain Parent/caregiver report the patient having bloody urine. Historical: - Allergies: 07:42 Sulfa (Sulfonamide Antibiotics); sg5 - PMHx: 07:42 ADD/ADHD; CHF; colon cancer; COPD; Diabetes - IDDM; Hypertension; Myocardial sg5 infarction; Pneumonia; - Immunization history:: Client reports receiving the 2nd dose of the Covid vaccine. - Social history:: Smoking status: Patient denies any tobacco usage or history of. Screenin:20 Abuse screen: Denies threats or abuse. Nutritional screening: No deficits noted. ap3 Tuberculosis screening: No symptoms or risk factors identified. 08:21 [facility] ED Fall Risk Assessment (Adult). ap3 Assessment: 08:21 General: Appears comfortable, Behavior is calm, cooperative. Pain: Denies pain. Neuro: ap3 Level of Consciousness is awake, alert, obeys commands, Oriented to person, place, time, situation. Cardiovascular: Patient's skin is warm and dry. Respiratory: Airway is patent Respiratory effort is even, unlabored. : Reports burning with urination, bloody urine. 08:49 Reassessment: Patient and/or family updated on plan of care and expected duration. Pain ap3 level reassessed. Patient is alert, oriented x 3, equal unlabored respirations, skin warm/dry/pink. Vital Signs: 07:35 BP 130 / 101; Pulse 75; Resp 16; Temp 98.2; Pulse Ox 97% ; Weight 89.36 kg; Height 5 sg5 ft. 2 in. (157.48 cm); Pain 0/10; 08:00 BP 135 / 71; Pulse 73; Resp 18; Pulse Ox 97% on R/A; ap3 08:49 BP 135 / 62; Pulse 74; Pulse Ox 99% on R/A; ap3 07:35 Body Mass Index 36.03 (89.36 kg, 157.48 cm) sg5 ED Course: 07:21 Patient arrived in ED. am2 07:21 Addie Cormier MD is Private Physician. am2 07:25 Jonatan Jacinto DO is Attending Physician. ms3 07:27 Suzanne Riley, TEAGAN is Primary Nurse. ap3 07:38 Triage completed. sg5 07:39 Arm band placed on right wrist. sg5 08:00 Inserted saline lock: 22 gauge in right upper arm, using aseptic technique. Blood ap3 collected. 08:20 Straight cath inserted, using sterile technique, 16 Fr. Returned bloody urine. Patient ap3 tolerated well. 08:21 Patient has correct armband on for positive identification. Bed in low position. Call ap3 light in reach. Side rails up X2. Adult w/ patient. epic willow specialist on. Pulse ox on. NIBP on. Door closed. Noise minimized. Warm blanket given. 08:30 Addie Cormier MD is Referral Physician. ms3 08:49 No provider procedures requiring assistance completed. IV discontinued, intact, ap3 bleeding controlled, No redness/swelling at site. Pressure dressing applied. Administered Medications: No medications were administered Medication: 08:21 VIS not applicable for this client. ap3 Outcome: 08:30 Discharge ordered by . ms3 08:49 Condition: good ap3 08:49 Discharge instructions given to patient, family, Instructed on discharge instructions, follow up and referral plans. medication usage, Demonstrated understanding of instructions, follow-up care, medications, Prescriptions given X 1. 09:10 Discharged to home via wheelchair, with family. ap3 09:11 Patient left the ED. ap3 Signatures: Jeniffer Phipps, RN RN iw Suzanne Dill am2 Suzanne Riley RN RN ap3 Jonatan Jacinto DO DO ms3 Esperanza Pisano RN RN sg5
--- NOTE | 2022-05-17 08:31 | EDPHYS ---
Physician Documentation [facility] Name: Gloria Longoria Age: 81 yrs Sex: Female : 1940 Arrival Date: 05/17/2022 Time: 07:21 Bed 5 Private MD: Addie Cormier ED Physician Jonatan Jacinto HPI: 05/17 07:44 This 81 yrs old Black Female presents to ER via Wheelchair with complaints of shaking, ms3 Urinary Problem - blood. 07:44 81-year-old female with past medical history of hypertension, ADD/ADHD, COPD, ms3 myocardial infarction, colon cancer, diabetes presents for shaking and hematuria that began on Tuesday. Patient endorses dysuria, urgency, frequency, hematuria. Patient denies pain at this time. Patient denies alleviating or inciting factors.. Historical: - Allergies: 07:42 Sulfa (Sulfonamide Antibiotics); sg5 - PMHx: 07:42 ADD/ADHD; CHF; colon cancer; COPD; Diabetes - IDDM; Hypertension; Myocardial sg5 infarction; Pneumonia; - Immunization history:: Client reports receiving the 2nd dose of the Covid vaccine. - Social history:: Smoking status: Patient denies any tobacco usage or history of. ROS: 07:44 Positive for urinary frequency, hematuria, burning with urination, Negative for ms3 flank pain. 07:44 Constitutional: Negative for fever, and chills. Respiratory: Negative for shortness of breath, cough, wheezing, and pleuritic chest pain, Abdomen/GI: Negative for abdominal pain, nausea, vomiting, diarrhea, and constipation, Skin: Negative for injury, rash, and discoloration. 07:44 All other systems are negative. Exam: 07:44 Constitutional: This is a well developed, well nourished patient who is awake, alert, ms3 and in no acute distress. Head/Face: Normocephalic, atraumatic. Neck: Trachea midline, no cervical lymphadenopathy. Supple, full range of motion without nuchal rigidity, or vertebral point tenderness. No Meningismus. Chest/axilla: Normal chest wall appearance and motion. Nontender with no deformity. Cardiovascular: Regular rate and rhythm with a normal S1 and S2. No gallops, murmurs, or rubs. Normal PMI, no JVD. No pulse deficits. 07:44 Skin: Warm, dry with normal turgor. Normal color with no rashes, no lesions, and no evidence of cellulitis. MS/ Extremity: Pulses equal, no cyanosis. Neurovascular intact. Full, normal range of motion. 07:44 Back: CVA tenderness, is absent. Vital Signs: 07:35 BP 130 / 101; Pulse 75; Resp 16; Temp 98.2; Pulse Ox 97% ; Weight 89.36 kg; Height 5 sg5 ft. 2 in. (157.48 cm); Pain 0/10; 08:00 BP 135 / 71; Pulse 73; Resp 18; Pulse Ox 97% on R/A; ap3 08:49 BP 135 / 62; Pulse 74; Pulse Ox 99% on R/A; ap3 07:35 Body Mass Index 36.03 (89.36 kg, 157.48 cm) sg5 MDM: 07:43 Patient medically screened. ms3 07:44 Differential diagnosis: urinary tract infection. ms3 08:40 Data reviewed: vital signs, nurses notes, lab test result(s), and as a result, I will ms3 discharge patient. Historians other than the Patient: Daughter/Son: Patient's daughter. Care significantly affected by the following chronic conditions: Diabetes, Hypertension, Congestive Heart Failure, Chronic Obstructive Pulmonary Disease, Cancer, Chronic Kidney Disease. Counseling: I had a detailed discussion with the patient and/or guardian regarding: the historical points, exam findings, and any diagnostic results supporting the discharge/admit diagnosis, lab results, the need for outpatient follow up, to return to the emergency department if symptoms worsen or persist or if there are any questions or concerns that arise at home. ED course: On reevaluation patient is alert and oriented, in no apparent distress, nontoxic-appearing. Patient given prescription for Vantin 200 mg twice daily x7 days. Patient to follow-up with her primary care physician in 2 to 3 days for reevaluation. All questions were answered. Return precautions discussed to include vomiting, fevers, back pain, lightheadedness, worsening symptoms, or any other concerns.. 05/17 07:44 Order name: CBC with Diff ms3 05/17 07:44 Order name: BMP ms3 05/17 07:44 Order name: Urinalysis W/Microscopic ms3 05/17 07:44 Order name: Urine Culture ms3 05/17 08:11 Order name: CBC with Automated Diff; Complete Time: 08:25 EDMS 05/17 08:20 Order name: Urine Dipstick-Ancillary; Complete Time: 08:25 EDMS 05/17 07:44 Order name: Urine Dipstick-Ancillary (obtain specimen); Complete Time: 08:20 ms3 05/17 08:25 Order name: Basic Metabolic Panel; Complete Time: 08:25 EDMS Administered Medications: No medications were administered Disposition Summary: 05/17/22 08:30 Discharge Ordered Location: Home ms3 Condition: Stable ms3 Diagnosis - UTI/ Urinary tract infection, site not specified ms3 - Hematuria, unspecified ms3 Followup: ms3 - With: - When: 2 - 3 days - Reason: Recheck today's complaints Discharge Instructions: - Discharge Summary Sheet ms3 - Hematuria, Adult ms3 - Urinary Tract Infection, Adult ms3 Forms: - Medication Reconciliation Form ms3 - Thank You Letter ms3 - Antibiotic Education ms3 - Prescription Opioid Use ms3 Prescriptions: - cefpodoxime 200 mg Oral Tablet - take 1 tablet by ORAL route every 12 hours with food; 14 tablet; Refills: 0, ms3 Product Selection Permitted Signatures: Dispatcher [employer] EDMS Jonatan Jacinto DO DO ms3 Esperanza Pisano, RN RN sg5
[2022-05-17 09:38] VITALS: TEMP 98.2
[2022-05-17 09:44] VITALS: BP 135/62; O2SAT 99
[2022-05-17 10:38] LABS: Specific Gravity 1.007 (1.005-1.030); Urine Bacteria <20 /HPF (<20); Urine Bilirubin NEGATIVE (Negative); Urine Blood 3+ (OVER) (Negative); Urine Clarity Turbid (Clear); Urine Color Light-Brown (Yellow); Urine Glucose NEGATIVE (Negative); Urine Mucus Slight /HPF (None Seen); Urine Protein 1+ (Negative); Urine RBC >50 /HPF (None Seen); Urine Urobilinogen Normal (Normal); Urine WBC Clump Many /HPF (None Seen)
== END 2022-05-17 09:11 | disposition home or self-care (01) ==
LOC: ER 07:18
DX: N39.0 Urinary tract infection, site not specified (principal); I10 Essential (primary) hypertension; I50.9 Heart failure, unspecified; J44.9 Chronic obstructive pulmonary disease, unspecified; Z88.2 Allergy status to sulfonamides; Z85.038 Personal history of other malignant neoplasm of large intestine
CPT/HCPCS: 36415; 51702; 80048; 81001; 81003; 85025; 87086; 87088; 99284

== ENCOUNTER 2023-04-18 10:33 | Inpatient (IN) | payer OTHER ==
--- NOTE | 2023-04-18 11:36 | RAD REPORT ---
EXAM DESCRIPTION: CT - Head Brain Wo Cont - 04/18/2023 11:17 am CLINICAL HISTORY: Head injury status post fall. Weakness COMPARISON: March 2022 TECHNIQUE: Computed axial tomography of the head was obtained. IV contrast was not requested. All CT scans are performed using dose optimization technique as appropriate and may include automated exposure control or mA/KV adjustment according to patient size. FINDINGS: An intracranial bleed is not seen The ventricles are normal in caliber No extra-axial fluid collection is noted. No significant hypodensity within the brain. Basal ganglia calcifications are unchanged Fluid within the sinuses/ mastoids is not seen. IMPRESSION: No acute intracranial abnormality is seen If patient's symptoms persist MRI of the brain would be recommended
--- NOTE | 2023-04-18 11:39 | RAD REPORT ---
EXAM DESCRIPTION: Maria Esther Single View04/18/2023 11:32 am CLINICAL HISTORY: Chest pain COMPARISON: March 2022 FINDINGS: The lungs appear clear of acute infiltrate. The heart is moderately enlarged IMPRESSION: No acute abnormalities displayed
--- NOTE | 2023-04-18 11:41 | RAD REPORT ---
EXAM DESCRIPTION: RAD - Knee Right 3 View - 04/18/2023 11:32 am CLINICAL HISTORY: Right knee pain status post injury FINDINGS: No fracture or dislocation is seen. Small joint effusion. Vascular calcifications. Mild osteoarthritis If patient continues to have symptoms to suggest an occult fracture, ligamentous or meniscal injury M RI would recommended
[2023-04-18 12:32] LABS: Absolute Lymphocytes (CBC) 1.5 K/uL (0.7-4.9); Hematocrit 31.7 % (36.0-45.0); Lymphocytes % 16.6 % (15.3-44.8); MCV 93.3 fL (80-100); MPV 9.9 fL (7.6-11.3); Platelets 209 thou/uL (152-406)
[2023-04-18 14:15] LABS: Protime INR 1.1
[2023-04-18 14:28] LABS: Albumin 3.1 g/dL (3.4-5.0); Bilirubin Direct 0.1 mg/dL (0-0.2); Bilirubin Indirect, Calculated 0.1 mg/dL (0.2-0.8); Bilirubin Total 0.2 mg/dL (0.2-1.0); Protein, Total 7.3 g/dL (6.4-8.2); Troponin High Sensitivity 9.6 pg/mL (<58.9)
[2023-04-18 14:29] LABS: Magnesium 2.5 mg/dL (1.6-2.4); Potassium 4.8 mEq/L (3.5-5.1)
--- NOTE | 2023-04-18 14:37 | ER ---
Nurse's Notes [facility] Name: Gloria Longoria Age: 82 yrs Sex: Female : 1940 Arrival Date: 04/18/2023 Time: 10:33 Bed 14 Private MD: Diagnosis: Acute kidney failure, unspecified;Repeated falls Presentation: 04/18 10:43 Chief complaint: Patient's son or daughter states: PER DAUGHTER "MY MOM BE BLIND. AND bp SHE FELL LIKE ON A WEEK AGO AND HER R KNEE HURTING. AND I BEEN MONITORING HER OVER THE WEEKEND AND SHE BEEN JERKING AND DROPPING STUFF.". Coronavirus screen: At this time, the client does not indicate any symptoms associated with coronavirus-19. Ebola Screen: No symptoms or risks identified at this time. Initial Sepsis Screen: Does the patient meet any 2 criteria? No. Patient's initial sepsis screen is negative. Does the patient have a suspected source of infection? No. Patient's initial sepsis screen is negative. Risk Assessment: Do you want to hurt yourself or someone else? Patient reports no desire to harm self or others. Onset of symptoms is unknown. 10:43 Method Of Arrival: Wheelchair bp 10:43 Acuity: MALAIKA 3 bp Triage Assessment: 10:43 General: Appears in no apparent distress. comfortable, Behavior is cooperative, bp appropriate for age, anxious. Pain: Complains of pain in right knee. 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 - Social history:: Smoking status: Patient denies any tobacco usage or history of. Screenin:20 [facility] ED Fall Risk Assessment (Adult) History of falling in the last 3 months, bp including since admission No falls in past 3 months (0 pts). Abuse screen: Denies threats or abuse. Denies injuries from another. Nutritional screening: No deficits noted. Tuberculosis screening: No symptoms or risk factors identified. Assessment: 10:45 General: SEE TRIAGE NOTE. bp 12:00 Reassessment: Patient appears in no apparent distress at this time. Patient is alert, bp oriented x 3, equal unlabored respirations, skin warm/dry/pink. 13:19 Reassessment: UNABLE TO OBTAIN PIV OR BLOOD SPECIMEN. PHLEBOTOMY CONTACTED. bp 14:00 Reassessment: SEE TRIAGE NOTE. bp 16:00 Reassessment: No changes from previously documented assessment. Patient is alert, bp oriented x 3, equal unlabored respirations, skin warm/dry/pink. 20:11 General: Appears comfortable, Behavior is cooperative, appropriate for age. Pain: ha1 Complains of pain in right knee Pain does not radiate. Pain currently is 4 out of 10 on a pain scale. Quality of pain is described as throbbing, Aggravated by increased activity. Neuro: Level of Consciousness is awake, alert, obeys commands, Oriented to person, place, time, situation. Cardiovascular: Capillary refill < 3 seconds Patient's skin is warm and dry. Respiratory: Airway is patent Respiratory effort is even, unlabored, Respiratory pattern is regular, symmetrical. 20:20 Reassessment: attempted to give report. ha1 20:40 Reassessment: attempted to give report. ha1 21:00 Reassessment: attempted to give report. ha1 21:30 General: REPORT GIVEN TO KURTIS RYANLOAN CLOSER . ha1 Vital Signs: 10:43 BP 105 / 58; Pulse 66; Resp 16; Temp 97.5; Pulse Ox 97% ; bp 12:00 BP 102 / 54; Pulse 69; Resp 16; Pulse Ox 94% ; bp 14:00 BP 106 / 49; Pulse 68; Resp 19; Pulse Ox 96% ; bp 16:00 BP 116 / 94; Pulse 67; Resp 13; Pulse Ox 97% ; bp 20:11 BP 105 / 50; Pulse 70; Resp 17 S; Pulse Ox 99% on 2 lpm NC; ha1 ED Course: 10:38 Patient arrived in ED. mg5 10:40 Nazanin Sue PA-C is PHCP. sb4 10:40 Tenzin Schuster MD is Attending Physician. sb4 10:43 Arm band placed on. bp 10:45 Triage completed. bp 11:17 CT Head Brain wo Cont In Process Unspecified. EDMS 11:33 Chest Single View XRAY In Process Unspecified. EDMS 11:33 Knee Right 3 View XRAY In Process Unspecified. EDMS 12:12 BNP Sent. cm10 12:13 Basic Metabolic Panel Sent. cm10 12:13 CBC with Diff Sent. cm10 12:13 Hepatic Function Sent. cm10 12:13 Magnesium Sent. cm10 12:13 Protime (+inr) Sent. cm10 12:13 Ptt, Activated Sent. cm10 12:13 Troponin High Sensitivity Sent. cm10 12:30 Chaz Grant, RN is Primary Nurse. bp 13:20 Patient has correct armband on for positive identification. bp 14:37 Rosalio Greene is Hospitalizing Provider. sb4 15:16 Inserted saline lock: 22 gauge in left antecubital area, using aseptic technique. jl7 21:15 No provider procedures requiring assistance completed. ha1 21:43 Provided Education on: NEED FOR ADMIT . ha1 21:43 Patient admitted, IV remains in place. ha1 Administered Medications: 10:56 CANCELLED (Physician Discretion): ns 0.9% 1000 ml IV at 1 bolus Per protocol; 1000 mL sb4 bolus Medication: 20:41 VIS not applicable for this client. ha1 Outcome: 14:37 Decision to Hospitalize by Provider. sb4 21:42 Admitted to Tele accompanied by [facility], via stretcher, room 407, with chart, Report ha1 called to TEAGAN RYAN 21:42 Condition: stable 21:42 Discharge instructions given to patient, family, Instructed on the need for admit, Demonstrated understanding of instructions, 21:50 Patient left the ED. ha1 Signatures: Dispatcher [employer] EDLavell Mendoza RN RN jl7 Peltier, Brian, RN Evelyn Renee RN RN ha1 Nazanin Sue, PAMonty PAKady Quintanilla RN RN Abby Rodriguez mg5
--- NOTE | 2023-04-18 14:37 | EDPHYS ---
Physician Documentation [facility] Name: Gloria Longoria Age: 82 yrs Sex: Female : 1940 Arrival Date: 04/18/2023 Time: 10:33 Bed 14 Private MD: ED Physician Tenzin Schuster HPI: 04/18 10:49 This 82 yrs old Black Female presents to ER via Wheelchair with complaints of Fall sb4 Injury. 10:49 daughter states that patient sustained a mechanical fall about 1 week ago, hurting her sb4 right knee that she chronically has problems with. daughter states that a few days ago, patient started shaking more and not being able to hold onto objects. patient has no complaints at this time. 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 - Social history:: Smoking status: Patient denies any tobacco usage or history of. ROS: 10:49 Constitutional: Negative for fever, chills, and weight loss, sb4 10:49 MS/extremity: Positive for pain, of the right knee, 10:49 Neuro: Positive for weakness, 10:49 All other systems are negative, Exam: 10:49 Constitutional: This is a well developed, well nourished patient who is awake, alert, sb4 and in no acute distress. Head/Face: Normocephalic, atraumatic. Eyes: Extra-ocular motions intact. Periorbital areas with no swelling, redness, or edema. ENT: Mucous membranes moist. Cardiovascular: Regular rate and rhythm with a normal S1 and S2. Respiratory: Lungs have equal breath sounds bilaterally, clear to auscultation and percussion. No rales, rhonchi or wheezes noted. No increased work of breathing, no retractions or nasal flaring. Abdomen/GI: Soft, non-tender, no distension. Skin: Warm, dry with normal turgor. Normal color with no rashes, no lesions, and no evidence of cellulitis. MS/ Extremity: Pulses equal, no cyanosis. Neurovascular intact. Full, normal range of motion. Neuro: Awake and alert, GCS 15, oriented to person, place, time, and situation. Motor strength 5/5 in all extremities. Sensory grossly intact. Vital Signs: 10:43 BP 105 / 58; Pulse 66; Resp 16; Temp 97.5; Pulse Ox 97% ; bp 12:00 BP 102 / 54; Pulse 69; Resp 16; Pulse Ox 94% ; bp 14:00 BP 106 / 49; Pulse 68; Resp 19; Pulse Ox 96% ; bp 16:00 BP 116 / 94; Pulse 67; Resp 13; Pulse Ox 97% ; bp 20:11 BP 105 / 50; Pulse 70; Resp 17 S; Pulse Ox 99% on 2 lpm NC; ha1 MDM: 10:43 Patient medically screened. sb4 10:49 Differential diagnosis: closed head injury, contusion, fracture, electrolyte sb4 abnormality, hypovolemia, UTI. 14:36 Data reviewed: vital signs, nurses notes, lab test result(s), EKG, radiologic studies, sb4 and as a result, I will admit patient. Consideration of Admission/Observation Patient was admitted/placed on observation. Care significantly affected by the following chronic conditions: Diabetes, Hypertension, Chronic Obstructive Pulmonary Disease, Obesity. Counseling: I had a detailed discussion with the patient and/or guardian regarding the historical points, exam findings, and any diagnostic results supporting the discharge/admit diagnosis, lab results, radiology results, the need for further work-up and treatment in the hospital. 04/18 10:48 Order name: Basic Metabolic Panel; Complete Time: 14:04/18 10:48 Order name: CBC with Diff; Complete Time: 12:36 04/18 10:48 Order name: Hepatic Function; Complete Time: 14:31 04/18 10:48 Order name: Magnesium; Complete Time: 14:31 04/18 10:48 Order name: Protime (+inr); Complete Time: 14:16 04/18 10:48 Order name: Ptt, Activated; Complete Time: 14:16 04/18 10:48 Order name: Troponin High Sensitivity; Complete Time: 14:31 04/18 10:48 Order name: Urinalysis w/ reflexes 04/18 10:56 Order name: BNP; Complete Time: 14:04/18 15:27 Order name: Basic Metabolic Panel EDMS 04/18 15:27 Order name: Basic Metabolic Panel EDMS 04/18 15:27 Order name: Basic Metabolic Panel EDMS 04/18 15:27 Order name: Basic Metabolic Panel EDMS 04/18 15:27 Order name: Basic Metabolic Panel EDMS 04/18 15:27 Order name: Basic Metabolic Panel EDMS 04/18 15:27 Order name: Basic Metabolic Panel EDMS 04/18 15:27 Order name: Basic Metabolic Panel EDMS 04/18 15:27 Order name: Lipid Profile EDMS 04/18 15:27 Order name: Lipid Profile EDMS 04/18 15:27 Order name: Magnesium EDMS 04/18 15:27 Order name: Magnesium EDMS 04/18 15:27 Order name: T4 Free; Complete Time: 16:13 EDMS 04/18 15:27 Order name: Thyroid Stimulating Hormone; Complete Time: 16:13 EDMS 04/18 15:27 Order name: CBC with Automated Diff EDMS 04/18 15:27 Order name: CBC with Automated Diff EDMS 04/18 15:27 Order name: CBC with Automated Diff EDMS 04/18 15:27 Order name: CBC with Automated Diff EDMS 04/18 15:27 Order name: CBC with Automated Diff EDMS 04/18 15:27 Order name: CBC with Automated Diff EDMS 04/18 15:27 Order name: CBC with Automated Diff EDMS 04/18 15:27 Order name: CBC with Automated Diff EDMS 04/18 15:28 Order name: Magnesium EDMS 04/18 15:28 Order name: Magnesium EDMS 04/18 15:28 Order name: Magnesium EDMS 04/18 15:28 Order name: Magnesium EDMS 04/18 15:28 Order name: Magnesium EDMS 04/18 15:28 Order name: Magnesium EDMS 04/18 15:28 Order name: Phosphorus EDMS 04/18 15:28 Order name: Phosphorus EDMS 04/18 15:28 Order name: Phosphorus EDMS 04/18 15:28 Order name: Phosphorus EDMS 04/18 15:28 Order name: Phosphorus EDMS 04/18 15:28 Order name: Phosphorus EDMS 04/18 15:28 Order name: Phosphorus EDMS 04/18 15:28 Order name: Phosphorus EDMS 04/18 15:28 Order name: Troponin High Sensitivity EDMS 04/18 15:28 Order name: Troponin High Sensitivity [facility] 04/18 15:28 Order name: Troponin High Sensitivity [facility] 04/18 18:58 Order name: Glucose, Ancillary Testing; Complete Time: 18:59 [facility] 04/18 10:48 Order name: CT Head Brain wo Cont; Complete Time: 11:38 sb4 04/18 10:48 Order name: Chest Single View XRAY; Complete Time: 11:43 sb4 04/18 10:48 Order name: Knee Right 3 View XRAY; Complete Time: 11:43 sb4 04/18 10:48 Order name: EKG; Complete Time: 10:48 sb 04/18 15:27 Order name: Physical Therapy Consult [facility] 04/18 15:32 Order name: CONS Physician Consult [facility] 04/18 10:48 Order name: Cardiac monitoring; Complete Time: 12:12 sb4 04/18 10:48 Order name: EKG - Nurse/Tech; Complete Time: 12:30 sb 04/18 10:48 Order name: IV Saline Lock; Complete Time: 18:08 [facility] 04/18 10:48 Order name: Labs collected and sent; Complete Time: 12:12 sb4 04/18 10:48 Order name: O2 Per Protocol; Complete Time: 12:13 sb4 04/18 10:48 Order name: O2 Sat Monitoring; Complete Time: 12:13 sb 04/18 10:48 Order name: Orthostatics; Complete Time: 18:09 sb4 04/18 12:41 Order name: Labs - recollect needed: recollect green and blue top; Complete Time: 18:08 bd EC:44 Rate is 71 beats/min. Rhythm is regular, Sinus arrythmia with 1st degree heart block. sb4 MI interval is prolonged at 296 msec. QRS interval is normal at 90 msec. QT interval is normal at 406 msec. Clinical impression: Abnormal EKG without significant change, 1st degree heart block, and Sinus arrythmia. Interpreted by me. Reviewed by me. Administered Medications: 10:56 CANCELLED (Physician Discretion): ns 0.9% 1000 ml IV at 1 bolus Per protocol; 1000 mL sb4 bolus Disposition: 04/19 07:04 Co-signature as Attending Physician, Tenzin Schuster MD I reviewed the patient's care rt provided by the Advanced Practice Provider and agree with the diagnosis and treatment plan. Disposition Summary: 04/18/23 14:37 Hospitalization Ordered Notes: Hospitalization Status: Inpatient Admission sb4 Provider: Rosalio Greene sb4 Condition: Fair sb4 Problem: new sb4 Symptoms: are unchanged sb4 Bed/Room Type: Standard sb4 Location: Telemetry/MedSurg (Inpatient)(04/18/23 20:05) ty Room Assignment: 408(04/18/23 20:05) ty Diagnosis - Acute kidney failure, unspecified sb4 - Repeated falls sb4 Forms: - Medication Reconciliation Form sb4 - SBAR form sb4 - Leadership Thank You Letter sb4 Signatures: Dispatcher [employer] EDMS Paola Weathers Brian, RN RN bp Edelmira Reed RN RN [email or web address] Nazanin Sue PA-C PA-C sb4 Tenzni Schuster MD MD rt Jaskaran Ocasio Corrections: (The following items were deleted from the chart) 04/18 10:56 10:48 NS 0.9% IV 1000 ml IV at 1 bolus Per protocol; 1000 mL bolus ordered. sb4 sb4 12:47 12:44 Rate is 71 beats/min. Rhythm is regular, Sinus arrythmia with 1st degree heart sb4 block. MI interval is prolonged at 296 msec. QRS interval is normal at 90 msec. QT interval is normal at 406 msec. Clinical impression: 1st degree heart block and Sinus arrythmia. Interpreted by me. Reviewed by me. sb4 17:18 14:37 Telemetry/MedSurg (Inpatient) sb4 kb3 17:18 14:37 sb4 kb3 20:05 17:18 [facility] ER HOLD kb3 ty 20:05 17:18 ERHOLD- kb3 ty
[2023-04-18] MEDS ORDERED: NA CHLORIDE 0.9% 500 ML IV SCH (16:00)
[2023-04-18 16:13] LABS: Thyroid Stimulating Hormone 1.35 uIU/mL (0.358-3.740)
[2023-04-18] MEDS: INSULIN REGULAR (HUMAN) 100 UNIT/ML SQ SCH ×2 (16:30→21:00)
[2023-04-18] MEDS: HEPARIN 5000 UNIT/ML 1 ML VIAL SQ SCH (17:00)
--- NOTE | 2023-04-18 18:15 | P.CNS ---
Date of Consult: 04/18/23 Reason for Consult: LONG, CKD Requesting Physician: Meagan Hamilton Chief Complaint: Weakness, fall, tremors History of Present Illness: Pt is a 82 yo AAF who is well known to me from clinic and has a PMHx of IDDM, prev uncontrolled with hyperglycemia, a hx of chronic HTN, a hx of underlying COPD/chronic bronchitis, a hx of some diastolic dysfunction/unspecified pulm HTN on maintenance diuretic regimen given prior hx of admissions for dyspnea, othher. She has not been hospitalized in > 6 mo, but last seen in Dec at which time her renal function tests avail from late summer were relatively stable although mildly higher than prior baseline. Pt comes in to the ER today reporting generalized weakness, fall, tremors/myoclonic jerks and other. Her daughter who keeps up with her medications was not present in the room to provide further history on what her BP range and other have been like. BP soft in the ER and labs reveal LONG. Allergies Sulfa (Sulfonamide Antibiotics) Allergy (Intermediate, Verified 04/19/22 12:46) Rash Home Medications: Aspirin [Aspirin EC 81 MG] 81 mg PO DAILY 02/07/22 Carvedilol [Coreg] 25 mg PO BID 02/07/22 Insulin Lispro [Humalog] See Rx Instructions .ROUTE .COMPLEX 02/07/22 Magnesium Oxide [Mag 0X*] 400 mg PO DAILY 02/07/22 Rosuvastatin Calcium 40 mg PO BEDTIME 02/07/22 Trazodone [Desyrel*] 50 mg PO BEDTIME 02/07/22 Clopidogrel Bisulfate [Plavix] 75 mg PO DAILY 03/04/22 Insulin Detemir [Levemir] 60 units SQ BEDTIME 03/04/22 Pregabalin 75 mg PO BID 03/04/22 Ezetimibe [Zetia*] 10 mg PO DAILY #30 tab 03/05/22 Folic Acid 1 mg PO DAILY #30 tab 03/05/22 Amlodipine [Norvasc*] 5 mg PO BID 03/22/22 Cholecalciferol (Vitamin D3) [Vitamin D3] 1 tab PO DAILY 03/22/22 Cyanocobalamin/Cobamamide [Vitamin B-12 5,000 Mcg Tab Sl] 1 tab PO DAILY 03/22/22 Dulaglutide [Trulicity] 0.75 mg SQ MO 03/22/22 Ferrous Sulfate [Ferrous Sulfate*] 325 mg PO DAILY 03/22/22 Metformin ER [Glucophage ER*] 500 mg PO BIDWM 03/22/22 Sertraline [Zoloft*] 100 mg PO DAILY 03/22/22 Spironolactone [Aldactone*] 25 mg PO BID 03/22/22 Benzonatate [Tessalon Perle*] 100 mg PO TID PRN 7 Days #20 cap 03/24/22 Cefdinir [Cefdinir*] 300 mg PO BID 5 Days #10 cap 03/24/22 Furosemide 40 mg PO DAILY #30 03/24/22 predniSONE [Prednisone*] 20 mg PO BID 5 Days #10 tab 03/24/22 Fluticasone/Umeclidin/Vilanter [Trelegy Ellipta 100-62.5-25] 2 puff PO DAILY 04/19/22 - Past Medical/Surgical History Diabetic: Yes -: Glaucoma -: CHF, diastolic dysfunction -: HTN -: GERD -: DM II with PolyNeuropathy -: CKD III (Dr. Alvarez) -: CAD -: Fatty liver with Morbid Obesity -: CAD -: COPD -: History of Colon CA -: Cholecystectomy -: Colon resection -: Appendectomy -: Hysterectomy -: Right Rotator Cuff Repair -: Colectomy Psychosocial/ Personal History: She lives at home. Her daughter helps her at home. - Family History Mother Medical History: Cancer Notes: colon Brother Medical History: Hypertension Sister Medical History: Heart disease, Hypertension, Lung disease, Cancer - Social History Smoking Status: Never smoker Alcohol use: No CD- Drugs: No Caffeine use: Yes Review of Systems General: Weakness, As per HPI Eyes: Unremarkable ENT: Unremarkable Respiratory: As per HPI Cardiovascular: Light Headedness, As per HPI Gastrointestinal: Unremarkable Genitourinary: Unremarkable Musculoskeletal: As per HPI Integumentary: Unremarkable Neurological: Weakness, As per HPI Physical Examination General: In no apparent distress, Cooperative HEENT: Atraumatic, Normocephalic, Other (Legally blind) Neck: Supple Respiratory: Normal air movement, Other (No rales) Cardiovascular: No edema, Regular rate/rhythm Gastrointestinal: Soft and benign, Non-distended, No tenderness Musculoskeletal: No contractures, No tenderness, No warmth Integumentary: No tenderness/swelling Neurological: Other (Awake, responds appropriately, moves all ext, symmetric strength, slightly tremulous ) Laboratory Data (last 24 hrs) 04/18/23 04/18/23 04/18/23 13:47 13:47 12:10 WBC 8.90 Hgb 10.5 L Hct 31.7 L Plt Count 209 PT 12.1 INR 1.10 APTT 26.9 Sodium 138 Potassium 4.8 BUN 46 H Creatinine 2.08 H Glucose 210 H Magnesium 2.5 H Total Bilirubin 0.2 AST 23 ALT 17 Alkaline Phosphatase 109 Conclusions/Impression: A/P) 1. Stage 1 LONG on underlying CKD Stage III unspecified with baseline Cr levels of 1.1-1.4 mg/dl over the past year plus with LONG now likely in the setting of some pre-renal state, relative BP lowering and other. 2. Cont gentle hydration and hold maintenance diuretics and other scheduled anti hypertensives including GAIL inhibitors/ARB. Will need to clarify home med list with daughter but she was on Losartan, Lasix and Spironolactone per my prior records and tolerating at the time of the last visit in Dec 3. Generalized weakness, fall, other -in the setting of above mentioned. CT head neg for any acute intra cranial process. Obtain OT/PT eval in AM 4. Chronic HTN with BP low/non elevated -trend off scheduled anti hypertensive therapy, check orthostatic vitals when working with PT 5. Obtain UA. 6. IDDM with unspecified complications -check A1c, review home BG range with family, adjust meds accordingly. Jose David Teague MD, ANASTASIIA
[2023-04-18 19:00] VITALS: BMI 35.9
--- NOTE | 2023-04-18 19:07 | P.HP ---
Certification for Inpatient Patient admitted to: Observation With expected LOS: >2 Midnights Patient will require the following post-hospital care: None Practitioner: I am a practitioner with admitting privileges, knowledge of patient current condition, hospital course, and medical plan of care. 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 May reports that she felt like her legs were slowly giving out on her and caused her to fall on the knee that she receives injections for. Daughter is at the bedside and reports that she has been experiencing more weakness and dropping things from her hands. She usually is fully independent. She does see Dr. Beavers, Dr. Teague, and Dr. Villa on a regular basis. On examination, Gloria is alert and oriented x 3, in no acute distress, and on room air. Initial vitals BP 105 / 58; Pulse 66; Resp 16; Temp 97.5; Pulse Ox 97%. Laboratory evaluation H&H 01/18, WBC 8, platelet 209, sodium 138, potassium 4.8, BUN/creatinine 46/2.08 with baseline creatinine 1.48 recorded April last year, GFR 21, serum glucose 210, BNP 505, troponin 9.6. Right knee x-ray reports "No fracture or dislocation is seen. Small joint effusion. Vascular calcifications. Mild osteoarthritis." Chest x-ray reports "The lungs appear clear of acute infiltrate. The heart is moderately enlarged. No acute abnormalities displayed." Head CT reports " An intracranial bleed is not seen. The ventricles are normal in caliber. No extra-axial fluid collection is noted. No significant hypodensity within the brain. Basal ganglia calcifications are unchanged. Fluid within the sinuses/ mastoids is not seen. No acute intracranial abnormality is seen." Gloria be admitted to hospitalist service for further evaluation and treatment of weakness and recent falls. Allergies Sulfa (Sulfonamide Antibiotics) Allergy (Intermediate, Verified 04/19/22 12:46) Rash Home Medications: Aspirin [Aspirin EC 81 MG] 81 mg PO DAILY 02/07/22 Carvedilol [Coreg] 25 mg PO BID 02/07/22 Insulin Lispro [Humalog] See Rx Instructions .ROUTE .COMPLEX 02/07/22 Magnesium Oxide [Mag 0X*] 400 mg PO DAILY 02/07/22 Rosuvastatin Calcium 40 mg PO BEDTIME 02/07/22 Trazodone [Desyrel*] 50 mg PO BEDTIME 02/07/22 Clopidogrel Bisulfate [Plavix] 75 mg PO DAILY 03/04/22 Insulin Detemir [Levemir] 60 units SQ BEDTIME 03/04/22 Pregabalin 75 mg PO BID 03/04/22 Ezetimibe [Zetia*] 10 mg PO DAILY #30 tab 03/05/22 Folic Acid 1 mg PO DAILY #30 tab 03/05/22 Amlodipine [Norvasc*] 5 mg PO BID 03/22/22 Cholecalciferol (Vitamin D3) [Vitamin D3] 1 tab PO DAILY 03/22/22 Cyanocobalamin/Cobamamide [Vitamin B-12 5,000 Mcg Tab Sl] 1 tab PO DAILY 03/22/22 Dulaglutide [Trulicity] 0.75 mg SQ MO 03/22/22 Ferrous Sulfate [Ferrous Sulfate*] 325 mg PO DAILY 03/22/22 Metformin ER [Glucophage ER*] 500 mg PO BIDWM 03/22/22 Sertraline [Zoloft*] 100 mg PO DAILY 03/22/22 Spironolactone [Aldactone*] 25 mg PO BID 03/22/22 Benzonatate [Tessalon Perle*] 100 mg PO TID PRN 7 Days #20 cap 03/24/22 Cefdinir [Cefdinir*] 300 mg PO BID 5 Days #10 cap 03/24/22 Furosemide 40 mg PO DAILY #30 03/24/22 predniSONE [Prednisone*] 20 mg PO BID 5 Days #10 tab 03/24/22 Fluticasone/Umeclidin/Vilanter [Trelegy Ellipta 100-62.5-25] 2 puff PO DAILY 04/19/22 - Past Medical/Surgical History Has patient received pneumonia vaccine in the past: Yes Diabetic: Yes -: Glaucoma -: CHF, diastolic dysfunction -: HTN -: GERD -: DM II with PolyNeuropathy -: CKD III (Dr. Alvarez) -: CAD -: Fatty liver with Morbid Obesity -: CAD -: COPD -: History of Colon CA -: Cholecystectomy -: Colon resection -: Appendectomy -: Hysterectomy -: Right Rotator Cuff Repair -: Colectomy Psychosocial/ Personal History: She lives at home. Her daughter helps her at home. - Family History Mother -: Cancer Notes: colon Brother -: Hypertension Sister -: Heart disease, Hypertension, Lung disease, Cancer - Social History Smoking Status: Unknown if ever smoked Alcohol use: No CD- Drugs: No Caffeine use: Yes Place of Residence: Home Review of Systems General: Weakness Eyes: Other (blind) Musculoskeletal: Leg Pain (RLL) Physical Examination - Vital Signs Blood Pressure: 116/94 Pulse: 67 Respirations: 13 Pulse Ox (%): 94 - Physical Exam General: Alert, In no apparent distress, Oriented x3 HEENT: Atraumatic, Normocephalic, PERRLA Neck: Supple, 2+ carotid pulse no bruit, JVD not distended Respiratory: Clear to auscultation bilaterally, Normal air movement Cardiovascular: No edema, Normal pulses, Regular rate/rhythm, Normal S1 S2 Capillary refill: <2 Seconds Gastrointestinal: Normal bowel sounds, Soft and benign Musculoskeletal: No clubbing, No swelling, No contractures Integumentary: No rashes, No breakdown, No significant lesion, No tenderness/swelling Neurological: Normal speech, Normal strength at 5/5 x4 extr, Normal tone - Studies Laboratory Data (last 24 hrs) 04/18/23 04/18/23 04/18/23 13:47 13:47 12:10 WBC 8.90 Hgb 10.5 L Hct 31.7 L Plt Count 209 PT 12.1 INR 1.10 APTT 26.9 Sodium 138 Potassium 4.8 BUN 46 H Creatinine 2.08 H Glucose 210 H Magnesium 2.5 H Total Bilirubin 0.2 AST 23 ALT 17 Alkaline Phosphatase 109 Assessment and Plan - Plan Assessment and plan Weakness with trauma fall to right knee Blind Due to history of glaucoma -Right knee x-ray reports "No fracture or dislocation is seen. Small joint effusion. Vascular calcifications. Mild osteoarthritis." -Chest x-ray reports "The lungs appear clear of acute infiltrate. The heart is moderately enlarged. No acute abnormalities displayed." -Head CT reports " An intracranial bleed is not seen. The ventricles are normal in caliber. No extra-axial fluid collection is noted. No significant hypodensity within the brain. Basal ganglia calcifications are unchanged. Fluid within the sinuses/ mastoids is not seen. No acute intracranial abnormality is seen." -Physical therapy consulted -Gentle IV fluids -Fall precautions, supportive care -Troponin 5.9, serial pending -TSH/T4 pending History of iron deficiency anemia H&H 01/18 Monitor in a.m. labs Congestive heart failure Severe pulmonary hypertension history of IN with several stents placed -Echo 03/05/2022MAC with mild regurgitation, mild tricuspid regurgitation, severe pulmonary hypertension -ECHO ordered -BNP 505 -Monitor with gentle fluids -Continue Plavix, beta-josy, aspirin, lasix LONG versus CKD -Dr. Bee consulted -BUN creatinine 46/2.08, GFR 24 -gentle IVF 500 once Diabetes mellitus type 2 IDDM -Restart Levemir -Accu-Cheks with sliding scale insulin -Serum glucose 210 -A1c pending Hx COPD on RA Supportive care History of hypertension/HLD hx ADD/ADHD hx colon cancer -Continue home medication DVT PPx heparin Full code Discharge Plan: Home Plan to discharge in: 48 Hours - Advance Directives Does patient have a Living Will: No Does patient have a Durable POA for Healthcare: No Time Spent Managing Pts Care (In Minutes): 50
[2023-04-18] MEDS ORDERED: HEPARIN 5000 UNIT/ML 1 ML VIAL ONE (19:45)
[2023-04-18] MEDS ORDERED: INSULIN GLARGINE 100 UNIT/ML SQ ONE (19:46)
[2023-04-18] MEDS ORDERED: PREGABALIN 75 MG CAP PO ONE (19:46)
[2023-04-18] MEDS ORDERED: carvediloL 25 MG TAB PO SCH (21:00)
[2023-04-18] MEDS: INSULIN GLARGINE 100 UNIT/ML SQ SCH (21:00)
[2023-04-18] MEDS ORDERED: TRAZODONE 50 MG TABLET PO SCH (21:00)
[2023-04-18] MEDS ORDERED: AMLODIPINE 5 MG TAB PO SCH (21:00)
[2023-04-18] MEDS: ROSUVASTATIN 10 MG TAB PO SCH (23:06)
[2023-04-18] MEDS: PREGABALIN 75 MG CAP PO SCH (23:06)
[2023-04-18] MEDS: SPIRONOLACTONE 25 MG TABLET PO SCH (23:08)
[2023-04-19] MEDS: HEPARIN 5000 UNIT/ML 1 ML VIAL SQ SCH ×3 (00:42→17:22)
[2023-04-19 05:13] LABS: Absolute Lymphocytes (CBC) 1.3 K/uL (0.7-4.9); Hematocrit 31.2 % (36.0-45.0); MCV 93.4 fL (80-100); MPV 9.7 fL (7.6-11.3); Platelets 163 thou/uL (152-406); RBC Red Blood Cell Count 3.34 M/uL (3.86-4.86)
[2023-04-19 05:56] LABS: Magnesium 2.6 mg/dL (1.6-2.4); Phosphorus 4.5 mg/dL (2.5-4.9); Potassium 4.2 mEq/L (3.5-5.1); Troponin High Sensitivity 14.4 pg/mL (<58.9)
[2023-04-19] MEDS: INSULIN REGULAR (HUMAN) 100 UNIT/ML SQ SCH ×4 (07:30→21:53)
[2023-04-19] MEDS ORDERED: carvediloL 25 MG TAB PO SCH ×2 (08:00→17:00)
[2023-04-19] MEDS ORDERED: FUROSEMIDE 40 MG TABLET PO SCH (09:00)
[2023-04-19] MEDS: FOLIC ACID 1 MG TABLET PO SCH (09:13)
[2023-04-19] MEDS: CLOPIDOGREL 75 MG TABLET PO SCH (09:13)
[2023-04-19] MEDS: SERTRALINE HCL 100 MG TAB PO SCH (09:13)
[2023-04-19] MEDS: PREGABALIN 75 MG CAP PO SCH (09:14)
[2023-04-19] MEDS: FERROUS SULFATE 325 MG TAB PO SCH (09:14)
[2023-04-19] MEDS: VITAMIN D 1000 UNIT TAB PO SCH (09:14)
[2023-04-19] MEDS: SPIRONOLACTONE 25 MG TABLET PO SCH (09:15)
[2023-04-19] MEDS: EZETIMIBE 10 MG TAB PO SCH (09:16)
[2023-04-19] MEDS: ASPIRIN EC 81 MG TAB PO SCH (09:18)
--- NOTE | 2023-04-19 11:09 | P.PN ---
Nephrology note (S) Primary team had reconciled all home meds including those ones advised yesterday to hold for now. Meds adjusted. PT did eval pt briefly this AM, pt remains weak and tremulous per daughter. Home med list reviewed with her (O) vitals reviewed in the EMR General: In no apparent distress, Cooperative HEENT: Atraumatic, Normocephalic, Other (Legally blind) Neck: Supple Respiratory: Normal air movement, Other (No rales) Cardiovascular: No edema, Regular rate/rhythm Gastrointestinal: Soft and benign, Non-distended, No tenderness Musculoskeletal: No contractures, No tenderness, No warmth Integumentary: No tenderness/swelling Neurological: Other (Awake, responds appropriately, moves all ext, symmetric strength, slightly tremulous ) Laboratory Data (last 24 hrs) 04/18/23 04/18/23 04/18/23 13:47 13:47 12:10 WBC 8.90 Hgb 10.5 L Hct 31.7 L Plt Count 209 PT 12.1 INR 1.10 APTT 26.9 Sodium 138 Potassium 4.8 BUN 46 H Creatinine 2.08 H Glucose 210 H Magnesium 2.5 H Total Bilirubin 0.2 AST 23 ALT 17 Alkaline Phosphatase 109 Conclusions/Impression: A/P) 1. Stage 1 LONG on underlying CKD Stage III unspecified with baseline Cr levels of 1.1-1.4 mg/dl over the past year plus with LONG now likely in the setting of some pre-renal state, relative BP lowering and other. 2. Cr level lower on repeat testing post gentle hydration, appears to be off IV now. Cont to temp hold maintenance diuretics and other scheduled anti hypertensives including GAIL inhibitors/ARB. will cautiously restart at lower doses as appropriate. 3. Generalized weakness, fall, other -in the setting of above mentioned. CT head neg for any acute intra cranial process. Metabolites of meds such as Lyrica can accumulate wih renal failure, pt taking higher dose than recommended, dose lowered 4. Chronic HTN with BP low/non elevated -Pt no longer requiring as much meds. Does not need to be on Amlodipine, prev stopped. Lower Coreg dose. 5. Obtain UA. 6. IDDM with unspecified complications -check A1c, review home BG range with family, adjust meds accordingly. Jose David Teague MD, ANASTASIIA
[2023-04-19] MEDS: TRAMADOL HCL 50 MG TAB PO PRN ×2 (11:59→21:56)
[2023-04-19 12:01] LABS: Specific Gravity 1.013 (1.005-1.030); Urine Bacteria <20 /HPF (<20); Urine Bilirubin NEGATIVE (Negative); Urine Blood Trace (Negative); Urine Clarity Extremely Turbid (Clear); Urine Color Light-Yellow (Yellow); Urine Glucose NEGATIVE (Negative); Urine Mucus Slight /HPF (None Seen); Urine Protein TRACE (Negative); Urine Urobilinogen Normal (Normal); Urine WBC Clump Moderate /HPF (None Seen)
[2023-04-19] MEDS ORDERED: CEFTRIAXONE 1,000 MG in NA CHLORIDE 0.9% 50 ML IVPB ONE (13:04)
--- NOTE | 2023-04-19 13:51 | P.PN ---
Date of Service: 04/19/23 Subjective: Tremulous, feeling weak Pain in right knee, bilateral hips Daughter at bedside ROS: 10 point ROS as noted above, otherwise negative Physical exam GEN: Alert, oriented, NAD HEENT: Normal conjunctiva, sclera anicteric CV: Regular rate and rhythm, no edema Pulm: Nonlabored respirations on room air ABD: Soft, nontender, nondistended MSK: No joint tenderness Integumentary: No rashes Neuro: Normal speech, normal affect Vitals reviewed Problem List LONG on CKD 3 UTI Tremors/debility/weakness COPD/chronic bronchitis Chronic diastolic CHF/pulmonary hypertension Diabetes mellitus type 2insulin-dependent Plan LONG on CKD 3 Continue to hold oral diuretics for now Off of IV fluids Nephrology following Mildly improved UTI Family reports similar symptoms with tremors when she had UTI in the past UA concerning for UTI, urine culture obtained Started on empiric Rocephin Tremors/debility/weakness Continue treatment for UTI Continue PT evaluation Reportedly ambulates with a walker for short distances at home Has been unable to ambulate with cane since she became tremulous last couple days requiring much more assistance COPD/chronic bronchitis Continue home meds Chronic diastolic CHF/pulmonary hypertension Temporarily holding diuretics in the setting of LONG Nephrology following Does not appear grossly overloaded Diabetes mellitus type 2insulin-dependent Continue home medications, ACHS Accu-Chek VTE: Heparin subcu Code: Full Dispo: 48 to 72 hours Time Spent Managing Pts Care (In Minutes): 35
[2023-04-19] MEDS: CEFTRIAXONE 1,000 MG in NA CHLORIDE 0.9% 50 ML IVPB SCH (16:23)
[2023-04-19] MEDS: carvediloL 6.25 MG TAB PO SCH (17:11)
[2023-04-19] MEDS ORDERED: AMLODIPINE 5 MG TAB PO SCH (21:00)
[2023-04-19] MEDS: TRAZODONE 50 MG TABLET PO SCH (21:47)
[2023-04-19] MEDS: ROSUVASTATIN 10 MG TAB PO SCH (21:47)
[2023-04-19] MEDS: INSULIN GLARGINE 100 UNIT/ML SQ SCH (21:53)
[2023-04-20] MEDS: HEPARIN 5000 UNIT/ML 1 ML VIAL SQ SCH ×3 (00:18→16:49)
[2023-04-20 05:54] LABS: Absolute Lymphocytes (CBC) 1.2 K/uL (0.7-4.9); Hematocrit 28.8 % (36.0-45.0); Lymphocytes % 17.2 % (15.3-44.8); MCV 94.3 fL (80-100); MPV 9.5 fL (7.6-11.3); Platelets 177 thou/uL (152-406); RBC Red Blood Cell Count 3.06 M/uL (3.86-4.86)
[2023-04-20 06:01] LABS: Magnesium 2.6 mg/dL (1.6-2.4); Phosphorus 3.2 mg/dL (2.5-4.9); Potassium 4.8 mEq/L (3.5-5.1)
--- NOTE | 2023-04-20 07:08 | ECHO ---
HEIGHT: 5 ft 2 in WEIGHT: 196 lb 3.383 oz DATE OF STUDY: 04/19/[address]: Meagan Hamilton NP 2-DIMENSIONAL: YES M.MODE: YES DOPPLER: YES COLOR FLOW: YES TDS: YES PORTABLE: YES DEFINITY: BUBBLE STUDY: DIAGNOSIS: WEAKNESS, FALLS, HISTORY OF MITRAL ANNULAR CALCIFICATION CARDIAC HISTORY: CATHERIZATION: YES SURGERY: NO PROSTHETIC VALVE: NO PACEMAKER: NO MEASUREMENTS (cm) DIASTOLIC (NORMALS) SYSTOLIC (NORMALS) IVSd 1.1 (0.6-1.2) LA Diam 4.0 (1.9-4.0) LVEF 55-60% LVIDd 4.0 (3.5-5.7) LVIDs 3.1 (2.0-3.5) %FS 24% LVPWd 1.3 (0.6-1.2) Ao Diam 2.4 (2.0-3.7) 2 DIMENSIONAL ASSESSMENT: RIGHT ATRIUM: NORMAL LEFT ATRIUM: ENLARGED RIGHT VENTRICLE: NORMAL LEFT VENTRICLE: MILD LEFT VENTRICULAR HYPERTROPHY TRICUSPID VALVE: MILD TRICUSPID REGURGITATION MITRAL VALVE: MITRAL ANNULAR CALCIFICATION WITH MILD MITRAL REGURGITATION PULMONIC VALVE: NORMAL AORTIC VALVE: NORMAL PERICARDIAL EFFUSION: NONE AORTIC ROOT: NORMAL LEFT VENTRICULAR WALL MOTION: NORMAL DOPPLER/COLOR FLOW: SEE BELOW COMMENTS: 1. NORMAL LEFT VENTRICULAR EJECTION FRACTION 55-60% 2. NORMAL WALL MOTION 3. MODERATE DISTOLIC DYSFUNCTION 4. MILD MITRAL REGURGITATION, TRICUSPID REGURGITATION 5. SEVERE PULMONARY HYPERTENSION WITH RIGHT VENTRICULAR SYSTOLIC PRESSURE GREATER THAN 60 mmHg TECHNOLOGIST: MICHAEL FELDER
[2023-04-20] MEDS: CEFTRIAXONE 1,000 MG in NA CHLORIDE 0.9% 50 ML IVPB SCH (08:24)
[2023-04-20] MEDS: carvediloL 6.25 MG TAB PO SCH ×2 (08:28→16:49)
[2023-04-20] MEDS: PREGABALIN 75 MG CAP PO SCH (08:28)
[2023-04-20] MEDS: SERTRALINE HCL 100 MG TAB PO SCH (08:28)
[2023-04-20] MEDS: FERROUS SULFATE 325 MG TAB PO SCH (08:29)
[2023-04-20] MEDS: FOLIC ACID 1 MG TABLET PO SCH (08:29)
[2023-04-20] MEDS: CLOPIDOGREL 75 MG TABLET PO SCH (08:29)
[2023-04-20] MEDS: VITAMIN D 1000 UNIT TAB PO SCH (08:29)
[2023-04-20] MEDS: ASPIRIN EC 81 MG TAB PO SCH (08:29)
[2023-04-20] MEDS: INSULIN REGULAR (HUMAN) 100 UNIT/ML SQ SCH ×4 (08:30→21:34)
[2023-04-20] MEDS: EZETIMIBE 10 MG TAB PO SCH (08:38)
[2023-04-20] MEDS ORDERED: CEFTRIAXONE 1,000 MG in NA CHLORIDE 0.9% 50 ML IVPB SCH (09:00)
--- NOTE | 2023-04-20 12:05 | P.PN ---
Nephrology note (S) BP non elevated, orthostatics neg, TTE findings noted, no active dyspnea but on LFNC. BG elevated. Tremulousness better but remains with generalized weakness (O) vitals reviewed in the EMR General: In no apparent distress, Cooperative HEENT: Atraumatic, Normocephalic, Other (Legally blind) Neck: Supple Respiratory: Normal air movement, Other (No rales) Cardiovascular: No edema, Regular rate/rhythm Gastrointestinal: Soft and benign, Non-distended, No tenderness Musculoskeletal: No contractures, No tenderness, No warmth Integumentary: No tenderness/swelling Neurological: Other (Awake, responds appropriately, moves all ext, symmetric strength, did not observe tremors Conclusions/Impression: A/P) 1. Stage 1 LONG on underlying CKD Stage III unspecified with baseline Cr levels of 1.1-1.4 mg/dl over the past year plus with LONG now likely in the setting of some pre-renal state, relative BP lowering and other. 2. Cr level lower on repeat testing post gentle hydration, stopped VF early on. Cr level stable but not back to prior baseline range Cont to temp hold maintenance diuretics and other scheduled anti hypertensives including GAIL inhibitors/ARB. will cautiously restart at lower doses prior to discharge 3. Generalized weakness, fall, other -in the setting of above mentioned. CT head neg for any acute intra cranial process. Metabolites of meds such as Lyrica can accumulate wih renal failure, pt taking higher dose than recommended, dose lowered 4. Chronic HTN with BP low/non elevated -Pt no longer requiring as much meds. Does not need to be on Amlodipine, prev stopped. Lowered Coreg dose. 5. Abnormal findings in urine, pyuria POA. UCx positive, place on Abx even though not directly symptomatic as far as urinary symptoms are concerned 6. Chronic diastolic dysfunction, secondary pulm HTN -will review diuretic regimen prior to discharge 7. IDDM with hyperglycemia -elevated A1c, chronic difficult to control DM, Insulin management per IM Jose David Teague MD, ANASTASIIA
--- NOTE | 2023-04-20 14:36 | P.PN ---
Date of Service: 04/20/23 Subjective: Generally improving Pain in right knee, bilateral hips Daughter at bedside ROS: 10 point ROS as noted above, otherwise negative Physical exam GEN: Alert, oriented, NAD HEENT: Normal conjunctiva, sclera anicteric CV: Regular rate and rhythm, no edema Pulm: Nonlabored respirations on room air ABD: Soft, nontender, nondistended MSK: No joint tenderness Integumentary: No rashes Neuro: Normal speech, normal affect Vitals reviewed Problem List LONG on CKD 3 UTI Tremors/debility/weakness COPD/chronic bronchitis Chronic diastolic CHF/pulmonary hypertension Diabetes mellitus type 2insulin-dependent Plan LONG on CKD 3 Diuretics per nephrology Slowly improving UTI Family reports similar symptoms with tremors when she had UTI in the past UA concerning for UTI, urine culture obtained Started on empiric Rocephin Tremors/debility/weakness Continue treatment for UTI Continue PT evaluation Reportedly ambulates with a walker for short distances at home Has been unable to ambulate with cane since she became tremulous last couple days requiring much more assistance COPD/chronic bronchitis Continue home meds Chronic diastolic CHF/pulmonary hypertension Temporarily holding diuretics in the setting of LONG Nephrology following Does not appear grossly overloaded Diabetes mellitus type 2insulin-dependent Continue home medications, ACHS Accu-Chek VTE: Heparin subcu Code: Full Dispo: 48 to 72 hours Time Spent Managing Pts Care (In Minutes): 35 <Rafael Chavez - Last Filed: 04/20/23 14:34> Patient seen and examined on rounds this morning with HAND TAPPER Kathy. Daughter at bedside, reports improvement of weakness in hands bilaterally - not dropping things. Patient still feels weak in legs overall feels better continue rocephin for UTI f/u cultures PT <Quoc West - Last Filed: 04/20/23 17:22>
[2023-04-20] MEDS: ROSUVASTATIN 10 MG TAB PO SCH (21:33)
[2023-04-20] MEDS: TRAZODONE 50 MG TABLET PO SCH (21:33)
[2023-04-20] MEDS: INSULIN GLARGINE 100 UNIT/ML SQ SCH (21:34)
[2023-04-21] MEDS: HEPARIN 5000 UNIT/ML 1 ML VIAL SQ SCH ×3 (00:51→16:36)
[2023-04-21 05:35] LABS: Absolute Lymphocytes (CBC) 1.2 K/uL (0.7-4.9); Hematocrit 27.2 % (36.0-45.0); Lymphocytes % 16.7 % (15.3-44.8); MCV 93.3 fL (80-100); MPV 9.4 fL (7.6-11.3); Platelets 172 thou/uL (152-406); RBC Red Blood Cell Count 2.92 M/uL (3.86-4.86)
[2023-04-21 05:47] LABS: Magnesium 2.5 mg/dL (1.6-2.4); Phosphorus 2.9 mg/dL (2.5-4.9); Potassium 4.6 mEq/L (3.5-5.1)
[2023-04-21] MEDS: EZETIMIBE 10 MG TAB PO SCH (08:15)
[2023-04-21] MEDS: FUROSEMIDE 20 MG TABLET PO SCH (08:15)
[2023-04-21] MEDS: FERROUS SULFATE 325 MG TAB PO SCH (08:15)
[2023-04-21] MEDS: CLOPIDOGREL 75 MG TABLET PO SCH (08:15)
[2023-04-21] MEDS: VITAMIN D 1000 UNIT TAB PO SCH (08:15)
[2023-04-21] MEDS: SERTRALINE HCL 100 MG TAB PO SCH (08:15)
[2023-04-21] MEDS: PREGABALIN 75 MG CAP PO SCH (08:16)
[2023-04-21] MEDS: carvediloL 6.25 MG TAB PO SCH ×2 (08:16→16:37)
[2023-04-21] MEDS: CEFTRIAXONE 1,000 MG in NA CHLORIDE 0.9% 50 ML IVPB SCH (08:16)
[2023-04-21] MEDS: ASPIRIN EC 81 MG TAB PO SCH (08:16)
[2023-04-21] MEDS: FOLIC ACID 1 MG TABLET PO SCH (08:17)
[2023-04-21] MEDS: INSULIN REGULAR (HUMAN) 100 UNIT/ML SQ SCH ×4 (08:37→20:24)
[2023-04-21 09:42] VITALS: O2SAT 97
--- NOTE | 2023-04-21 10:52 | P.PN ---
Date of Service: 04/21/23 Vital Signs Temp Pulse Resp BP Pulse Ox 97.7 F 73 17 144/65 H 97 04/21/23 08:00 04/21/23 08:16 04/21/23 08:00 04/21/23 08:16 04/21/23 08:00 Medications Aspirin (Aspirin Ec 81 Mg Tab) 81 mg PO DAILY [facility] Last Admin: 04/21/23 08:16 Dose: 81 mg Carvedilol (Carvedilol 6.25 Mg Tab) 6.25 mg PO BIDWM [facility] Last Admin: 04/21/23 08:16 Dose: 6.25 mg Cholecalciferol (Vitamin D 1000 Unit Tab) 2,000 unit PO DAILY [facility] Last Admin: 04/21/23 08:15 Dose: 2,000 unit Clopidogrel Bisulfate (Clopidogrel 75 Mg Tablet) 75 mg PO DAILY [facility] Last Admin: 04/21/23 08:15 Dose: 75 mg Ezetimibe (Ezetimibe 10 Mg Tab) 10 mg PO DAILY [facility] Last Admin: 04/21/23 08:15 Dose: 10 mg Ferrous Sulfate (Ferrous Sulfate 325 Mg Tab) 325 mg PO DAILY [facility] Last Admin: 04/21/23 08:15 Dose: 325 mg Folic Acid (Folic Acid 1 Mg Tablet) 1 mg PO DAILY [facility] Last Admin: 04/21/23 08:17 Dose: 1 mg Furosemide (Furosemide 20 Mg Tablet) 20 mg PO DAILY [facility] Last Admin: 04/21/23 08:15 Dose: 20 mg Heparin Sodium (Porcine) (Heparin 5000 Unit/Ml 1 Ml Vial) 5,000 unit SQ Q8HR [facility] Last Admin: 04/21/23 08:16 Dose: 5,000 unit Ceftriaxone Sodium 1,000 mg/ (Sodium Chloride) 50 mls @ 100 mls/hr IVPB DAILY [facility]; Protocol Last Admin: 04/21/23 08:16 Dose: 50 mls Insulin Glargine (Insulin Glargine 100 Unit/Ml) 60 unit SQ BEDTIME [facility] Last Admin: 04/20/23 21:34 Dose: 60 unit Insulin Human Regular (Insulin Regular (Human) 100 Unit/Ml) 0 unit SQ ACHS [facility]; Protocol Last Admin: 04/21/23 08:37 Dose: 8 unit Pregabalin (Pregabalin 75 Mg Cap) 75 mg PO DAILY [facility] Last Admin: 04/21/23 08:16 Dose: 75 mg Rosuvastatin Calcium (Rosuvastatin 10 Mg Tab) 40 mg PO BEDTIME [facility] Last Admin: 04/20/23 21:33 Dose: 40 mg Sertraline HCl (Sertraline Hcl 100 Mg Tab) 100 mg PO DAILY [facility] Last Admin: 04/21/23 08:15 Dose: 100 mg Tramadol HCl (Tramadol Hcl 50 Mg Tab) 50 mg PO TID PRN PRN Reason: Pain scale 5-7 (Moderate) Last Admin: 04/19/23 21:56 Dose: 50 mg Trazodone HCl (Trazodone 50 Mg Tablet) 25 mg PO BEDTIME [facility] Last Admin: 04/20/23 21:33 Dose: 25 mg Microbiology Results 04/19/23 11:37 Clean Catch Urine Gully Count - Preliminary >100,000 CFU/ML. 04/19/23 11:37 Clean Catch Urine - Preliminary Escherichia Coli Assessment/ Plan: Nephrology Progress Note No Dyspnea No Chest Pain No Acute Events Overnight Feeling better +PO Vital Signs, Medications, Blood Work, and Imaging reviewed in the chart NAD. Obese. NCAT. MMM. Neck Supple. Normal Respiratory Effort. RRR. Abd ND. No C/C. LE Edema none. No Rash. AAO. Normal Speech. Assessment & Plan Stage I LONG likely due to hypovolemia CKD III -No NSAIDs HTN with CKD/ CHF -Continue Coreg Diastolic CHF, chronic Pulmonary HTN -Daily weight -Continue Furosemide DM II with Hyperglycemia & Polyneuropathy -RISS -Continue Lyrica Anemia in Chronic Illness -Monitor H&H -Continue oral iron Case reviewed with the hospitalist team
--- NOTE | 2023-04-21 11:35 | P.PN ---
Date of Service: 04/21/23 Subjective: Generally improving Daughter at bedside stood with PT yesterday more alert/conversative today ROS: 10 point ROS as noted above, otherwise negative Physical exam GEN: Alert, oriented, NAD HEENT: Normal conjunctiva, sclera anicteric CV: Regular rate and rhythm, no edema Pulm: Nonlabored respirations on room air ABD: Soft, nontender, nondistended MSK: No joint tenderness Integumentary: No rashes Neuro: Normal speech, normal affect Vitals reviewed Problem List LONG on CKD 3 UTI Tremors/debility/weakness COPD/chronic bronchitis Chronic diastolic CHF/pulmonary hypertension Diabetes mellitus type 2insulin-dependent Plan LONG on CKD 3 Improving started back on home diuretics UTI UA concerning for UTI, urine culture obtained switch to oral augmentin, await culture Tremors/debility/weakness Continue treatment for UTI Continue PT evaluation Reportedly ambulates with a walker for short distances at home Has been unable to ambulate with cane since she became tremulous last couple days requiring much more assistance manager services consult for SNF eval COPD/chronic bronchitis Continue home meds Chronic diastolic CHF/pulmonary hypertension Diuretics resumed Nephrology following Does not appear grossly overloaded Diabetes mellitus type 2insulin-dependent Continue home medications, ACHS Accu-Chek VTE: Heparin subcu Code: Full Dispo: 48 to 72 hours Time Spent Managing Pts Care (In Minutes): 35
[2023-04-21] MEDS ORDERED: DRISDOL (VITAMIN D=ERGOCALCIFEROL) 50000 UNIT CAP PO SCH (12:00)
--- NOTE | 2023-04-21 13:38 | EKG ---
Test Date: 2023-04-18 Test Time: 12:20:31 Environmental Issues Instructor: CARRIE MEASUREMENT RESULTS: Intervals: Rate: 71 [place]: 296 QRSD: 90 QT: 406 QTc: 441 [place]: P: [place]: 296 QRS: 8 T: 30 INTERPRETIVE STATEMENTS: Sinus rhythm with sinus arrhythmia with 1st degree AV block Anterior infarct, age undetermined Abnormal ECG Compared to ECG 04/17/2022 11:53:08 No significant changes Electronically Signed On 04-21-23 13:25:45 IMPLEMENTATION PROJECT COORDINATOR by Ean Beavers
[2023-04-21] MEDS ORDERED: PANTOPRAZOLE 40MG TABLET PO ONE (18:30)
[2023-04-21] MEDS: ROSUVASTATIN 10 MG TAB PO SCH (20:21)
[2023-04-21] MEDS: AMOX/K CLAV 500 MG TAB PO SCH (20:21)
[2023-04-21] MEDS: TRAZODONE 50 MG TABLET PO SCH (20:22)
[2023-04-21] MEDS: DOCUSATE NA 100 MG CAP PO SCH (20:22)
[2023-04-21] MEDS: INSULIN GLARGINE 100 UNIT/ML SQ SCH (20:25)
[2023-04-22] MEDS: HEPARIN 5000 UNIT/ML 1 ML VIAL SQ SCH ×2 (00:53→08:54)
[2023-04-22 03:55] LABS: Absolute Lymphocytes (CBC) 1.2 K/uL (0.7-4.9); Hematocrit 27.7 % (36.0-45.0); Lymphocytes % 19.4 % (15.3-44.8); MCV 92.6 fL (80-100); MPV 9.7 fL (7.6-11.3); Platelets 179 thou/uL (152-406); RBC Red Blood Cell Count 2.99 M/uL (3.86-4.86)
[2023-04-22 04:11] LABS: Magnesium 2.4 mg/dL (1.6-2.4); Phosphorus 2.1 mg/dL (2.5-4.9); Potassium 4.6 mEq/L (3.5-5.1)
[2023-04-22] MEDS ORDERED: D50W 25 GM/50 ML SYRINGE IV PRN (06:22)
[2023-04-22] MEDS ORDERED: GLUCAGON 1 MG/VIAL IM PRN (06:22)
[2023-04-22] MEDS ORDERED: D10W 125 ML IV PRN (06:27)
[2023-04-22] MEDS ORDERED: INSULIN REGULAR (HUMAN) 100 UNIT/ML SQ SCH (07:30)
[2023-04-22 07:33] VITALS: BP 171/77; TEMP 97.7
[2023-04-22] MEDS: EZETIMIBE 10 MG TAB PO SCH (08:55)
[2023-04-22] MEDS: AMOX/K CLAV 500 MG TAB PO SCH (08:55)
[2023-04-22] MEDS: DOCUSATE NA 100 MG CAP PO SCH (08:55)
[2023-04-22] MEDS: carvediloL 6.25 MG TAB PO SCH (08:55)
[2023-04-22] MEDS: CLOPIDOGREL 75 MG TABLET PO SCH (08:55)
[2023-04-22] MEDS: ASPIRIN EC 81 MG TAB PO SCH (08:55)
[2023-04-22] MEDS: FERROUS SULFATE 325 MG TAB PO SCH (08:55)
[2023-04-22] MEDS: VITAMIN D 1000 UNIT TAB PO SCH (08:56)
[2023-04-22] MEDS: PREGABALIN 75 MG CAP PO SCH (08:56)
[2023-04-22] MEDS: FUROSEMIDE 20 MG TABLET PO SCH (08:56)
[2023-04-22] MEDS: FOLIC ACID 1 MG TABLET PO SCH (08:56)
[2023-04-22] MEDS: SERTRALINE HCL 100 MG TAB PO SCH (08:56)
[2023-04-22] MEDS: POTASS/SODIUM PHOSPHATE 1 PKT POWD.PACK PO SCH (11:29)
--- NOTE | 2023-04-22 11:41 | P.PN ---
Nephrology note (S) Pt reports doing better, has been OOB and walked about 45 ft with PT before tiring. No peripheral edema. No specific orthostatic symptoms (O) vitals reviewed in the EMR General: In no apparent distress, Cooperative HEENT: Atraumatic, Normocephalic, Other (Legally blind), NC Neck: Supple Respiratory: Normal air movement, Other (No rales) Cardiovascular: No edema, Regular rate/rhythm Gastrointestinal: Soft and benign, Non-distended, No tenderness Musculoskeletal: No contractures, No tenderness, No warmth Integumentary: No tenderness/swelling Neurological: Other (Awake, responds appropriately, moves all ext, symmetric strength, did not observe tremors Conclusions/Impression: A/P) 1. Stage 1 LONG on underlying CKD Stage III unspecified with baseline Cr levels of 1.1-1.4 mg/dl over the past year plus with LONG now likely in the setting of some pre-renal state, relative BP lowering and other. 2. LONG resolving, Cr level lower on repeat testing post gentle hydration, stopped IVF early on. Cr level stable but not quite back to prior baseline range Restarted ARB and lasix at lower doses. 3. Generalized weakness, fall, other -in the setting of above mentioned. CT head neg for any acute intra cranial process. Metabolites of meds such as Lyrica can accumulate wih renal failure, pt taking higher dose than recommended, dose lowered 4. Chronic HTN with BP low/non elevated on admission but has since trended higher. Cont Coreg, restarted losartan 5. Abnormal findings in urine, pyuria POA. UCx positive, place on Abx even though not directly symptomatic as far as urinary symptoms are concerned 6. Chronic diastolic dysfunction, secondary pulm HTN -no signs of hypervolemia. Lasix at low dose restarted, can restart Spironolactone as OP 7. IDDM with hyperglycemia -elevated A1c, chronic difficult to control DM, Insulin management per IM Jose David Teague MD, ANASTASIIA
[2023-04-22] MEDS ORDERED: LOSARTAN POTASSIUM 50 MG TABLET PO SCH (12:00)
--- NOTE | 2023-04-22 13:17 | P.DS ---
Admission Date: 04/19/23 Discharge Date: 04/22/23 Disposition: ROUTINE DISCHARGE Discharge Condition: GOOD Reason for Admission: Weakness, fall, tremors Consultations: Nephrology-Dr. 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 May reports that she felt like her legs were slowly giving out on her and caused her to fall on the knee that she receives injections for. Daughter is at the bedside and reports that she has been experiencing more weakness and dropping things from her hands. She usually is fully independent. She does see Dr. Beavers, Dr. Teague, and Dr. Villa on a regular basis. On examination, Gloria is alert and oriented x 3, in no acute distress, and on room air. Initial vitals BP 105 / 58; Pulse 66; Resp 16; Temp 97.5; Pulse Ox 97%. Laboratory evaluation H&H 01/18, WBC 8, platelet 209, sodium 138, potassium 4.8, BUN/creatinine 46/2.08 with baseline creatinine 1.48 recorded April last year, GFR 21, serum glucose 210, BNP 505, troponin 9.6. Right knee x-ray reports "No fracture or dislocation is seen. Small joint effusion. Vascular calcifications. Mild osteoarthritis." Chest x-ray reports "The lungs appear clear of acute infiltrate. The heart is moderately enlarged. No acute abnormalities displayed." Head CT reports " An intracranial bleed is not seen. The ventricles are normal in caliber. No extra-axial fluid collection is noted. No significant hypodensity within the brain. Basal ganglia calcifications are unchanged. Fluid within the sinuses/ mastoids is not seen. No acute intracranial abnormality is seen." Gloria be admitted to hospitalist service for further evaluation and treatment of weakness and recent falls. Hospital Course: Problem List LONG on CKD 3 UTI Tremors/debility/weakness COPD/chronic bronchitis Chronic diastolic CHF/pulmonary hypertension Diabetes mellitus type 2insulin-dependent Patient was admitted to the hospital for weakness, falls, tremors. Her daughter reported that she had similar symptoms in the past when she had urinary tract infections. Urinalysis was obtained which did demonstrate urinary tract infection, urine culture has returned with E. coli, Klebsiella both sensitive to Augmentin. During hospitalization her strength improved while working with physical therapy, she is back to her functional baseline or close to it. Patient be discharged with prescription for Augmentin for urinary tract infection She is also evaluated by her naturopathic doctor who recommended a reduced dose of her pregabalin at 75 mg daily given the decreased renal excretion and possibility for contributing to her weakness. Prescription for pregabalin 75 mg once daily also sent to pharmacy. Please follow-up your primary care doctor 1 to 2 weeks Please follow-up with nephrology as well in 1 to 2 weeks services manager will be setting up home health/physical therapy at discharge Vital Signs/Physical Exam: Temp Pulse Resp BP Pulse Ox 97.7 F 77 16 171/77 H 95 04/22/23 07:21 04/22/23 07:21 04/22/23 07:21 04/22/23 07:21 04/22/23 07:21 General: Alert, In no apparent distress, Oriented x3 HEENT: Atraumatic, PERRLA Neck: Supple, JVD not distended Respiratory: Clear to auscultation bilaterally, Normal air movement Cardiovascular: Regular rate/rhythm, Normal S1 S2 Gastrointestinal: Normal bowel sounds Musculoskeletal: No tenderness Integumentary: No rashes Neurological: Normal speech, Normal tone Laboratory Data at Discharge: WBC 6.40 thou/uL (4.3-10.9) 04/22/23 02:58 Hgb 9.2 g/dL (12.0-15.0) L 04/22/23 02:58 Hct 27.7 % (36.0-45.0) L 04/22/23 02:58 Plt Count 179 thou/uL (152-406) 04/22/23 02:58 PT 12.1 SECONDS (9.5-12.5) 04/18/23 13:47 INR 1.10 04/18/23 13:47 APTT 26.9 SECONDS (24.3-36.9) 04/18/23 13:47 Sodium 137 mEq/L (136-145) 04/22/23 02:58 Potassium 4.6 mEq/L (3.5-5.1) 04/22/23 02:58 BUN 41 mg/dL (7-18) H 04/22/23 02:58 Creatinine 1.53 mg/dL (0.55-1.02) H 04/22/23 02:58 Glucose 355 mg/dL (74-106) H 04/22/23 02:58 Phosphorus 2.1 mg/dL (2.5-4.9) L 04/22/23 02:58 Magnesium 2.4 mg/dL (1.6-2.4) 04/22/23 02:58 Total Bilirubin 0.2 mg/dL (0.2-1.0) 04/18/23 13:47 AST 23 U/L (15-37) 04/18/23 13:47 ALT 17 U/L (13-56) 04/18/23 13:47 Alkaline Phosphatase 109 U/L (45-117) 04/18/23 13:47 Triglycerides 196 mg/dL (<150) H 04/19/23 04:47 Cholesterol 80 mg/dL (<200) 04/19/23 04:47 HDL Cholesterol 25 mg/dL (40-60) L 04/19/23 04:47 Cholesterol/HDL Ratio 3.20 04/19/23 04:47 Home Medications: Aspirin [Aspirin EC 81 MG] 81 mg PO DAILY 02/07/22 Carvedilol [Coreg] 25 mg PO BID 02/07/22 Insulin Lispro [Humalog] See Rx Instructions .ROUTE .COMPLEX 02/07/22 Magnesium Oxide [Mag 0X*] 400 mg PO DAILY 02/07/22 Rosuvastatin Calcium 40 mg PO BEDTIME 02/07/22 Trazodone [Desyrel*] 50 mg PO BEDTIME 02/07/22 Clopidogrel Bisulfate [Plavix] 75 mg PO DAILY 03/04/22 Insulin Detemir [Levemir] 60 units SQ BEDTIME 03/04/22 Ezetimibe [Zetia*] 10 mg PO DAILY #30 tab 03/05/22 Folic Acid 1 mg PO DAILY #30 tab 03/05/22 Amlodipine [Norvasc*] 5 mg PO BID 03/22/22 Cholecalciferol (Vitamin D3) [Vitamin D3] 1 tab PO DAILY 03/22/22 Cyanocobalamin/Cobamamide [Vitamin B-12 5,000 Mcg Tab Sl] 1 tab PO DAILY 03/22/22 Dulaglutide [Trulicity] 0.75 mg SQ MO 03/22/22 Ferrous Sulfate [Ferrous Sulfate*] 325 mg PO DAILY 03/22/22 Sertraline [Zoloft*] 100 mg PO DAILY 03/22/22 Spironolactone [Aldactone*] 25 mg PO BID 03/22/22 Benzonatate [Tessalon Perle*] 100 mg PO TID PRN 7 Days #20 cap 03/24/22 Furosemide 40 mg PO DAILY #30 03/24/22 Fluticasone/Umeclidin/Vilanter [Trelegy Ellipta 100-62.5-25] 2 puff PO DAILY 04/19/22 Amoxicillin/Potassium Clav [Augmentin 500-125 Tablet] 1 each PO BID 3 Days #6 tab 04/22/23 Pregabalin 75 mg PO DAILY 30 Days #30 cap 04/22/23 New Medications: Amoxicillin/Potassium Clav [Augmentin 500-125 Tablet] 1 each PO BID 3 Days #6 tab Pregabalin 75 mg PO DAILY 30 Days #30 cap Physician Discharge Instructions: Patient was admitted to the hospital for weakness, falls, tremors. Her daughter reported that she had similar symptoms in the past when she had urinary tract infections. Urinalysis was obtained which did demonstrate urinary tract infection, urine culture has returned with E. coli, Klebsiella both sensitive to Augmentin. During hospitalization her strength improved while working with physical therapy, she is back to her functional baseline or close to it. Patient be discharged with prescription for Augmentin for urinary tract infection She is also evaluated by her naturopathic doctor who recommended a reduced dose of her pregabalin at 75 mg daily given the decreased renal excretion and possibility for contributing to her weakness. Prescription for pregabalin 75 mg once daily also sent to pharmacy. Please follow-up your primary care doctor 1 to 2 weeks Please follow-up with nephrology as well in 1 to 2 weeks services manager will be setting up home health/physical therapy at discharge Diet: ADA Activity: Fall precautions Followup: Jose David Teague [ACTIVE - CAN ADMIT] - 1-2 Weeks Nelda Ford MD [Primary Care Provider] - 1-2 Weeks Time spent managing pt's care (in minutes): 35
== END 2023-04-22 11:40 | disposition home health service (06) | DRG 683 ==
LOC: ER 10:33 → ERHOLD 15:21 → 4TH 20:28 → OBSVTOIN 04-19 13:05
PROVIDERS: ADMIT Internal Medicine; ATTEND Hospitalist
DX: N17.9 Acute kidney failure, unspecified (principal); I13.0 Hypertensive heart and chronic kidney disease with heart failure and stage 1 through stage 4 chronic kidney disease, or unspecified chronic kidney disease; I50.32 Chronic diastolic (congestive) heart failure; N39.0 Urinary tract infection, site not specified; N18.30 Chronic kidney disease, stage 3 unspecified; E11.22 Type 2 diabetes mellitus with diabetic chronic kidney disease; E11.42 Type 2 diabetes mellitus with diabetic polyneuropathy; E11.39 Type 2 diabetes mellitus with other diabetic ophthalmic complication; E11.65 Type 2 diabetes mellitus with hyperglycemia; D63.1 Anemia in chronic kidney disease; D50.9 Iron deficiency anemia, unspecified; H42 Glaucoma in diseases classified elsewhere; E78.5 Hyperlipidemia, unspecified; K21.9 Gastro-esophageal reflux disease without esophagitis; J44.9 Chronic obstructive pulmonary disease, unspecified; M19.09 Primary osteoarthritis, other specified site; I27.20 Pulmonary hypertension, unspecified; I08.1 Rheumatic disorders of both mitral and tricuspid valves; M25.561 Pain in right knee; H54.8 Legal blindness, as defined in USA; I25.10 Atherosclerotic heart disease of native coronary artery without angina pectoris; I25.2 Old myocardial infarction; B96.20 Unspecified Escherichia coli [E. coli] as the cause of diseases classified elsewhere; B96.1 Klebsiella pneumoniae [K. pneumoniae] as the cause of diseases classified elsewhere; R29.6 Repeated falls; Z88.2 Allergy status to sulfonamides; Z79.4 Long term (current) use of insulin; Z91.81 History of falling; Z79.82 Long term (current) use of aspirin; Z79.02 Long term (current) use of antithrombotics/antiplatelets; Z90.49 Acquired absence of other specified parts of digestive tract; Z79.84 Long term (current) use of oral hypoglycemic drugs; Z79.52 Long term (current) use of systemic steroids; Z79.899 Other long term (current) drug therapy; Z85.038 Personal history of other malignant neoplasm of large intestine; Z90.710 Acquired absence of both cervix and uterus; W18.30XA Fall on same level, unspecified, initial encounter; Y93.9 Activity, unspecified; Y92.9 Unspecified place or not applicable; Y99.9 Unspecified external cause status
CPT/HCPCS: 36415; 70450; 71045; 80048; 80061; 80076; 81001; 82947; 83036; 83735; 83880; 84100; 84439; 84443; 84484; 85025; 85610; 85730; 87077; 87086; 87088; 87186; 92610; 93005; 93306; 97110; 97116; 97161; 97530; G0378; J0696; J1644; J1815

== ENCOUNTER 2023-06-30 09:22 | Observation (INO) | payer OTHER ==
[2023-06-30 10:11] LABS: Absolute Eosinophils 0.1 K/uL (0-0.5); Absolute Lymphocytes (CBC) 1.2 K/uL (0.7-4.9); Absolute Monocytes 0.9 K/uL (0.1-1.3); Absolute Neutrophil 5.8 K/uL (1.8-8.0); Basophils % 0.4 % (0-1.3); Eosinophils % 1.2 % (0-4.4); Hematocrit 34.7 % (36.0-45.0); Hemoglobin 11.2 g/dL (12.0-15.0); Lymphocytes % 15.1 % (15.3-44.8); MCH 29.8 pg (27.0-35.0); MCHC 32.2 g/dL (32.0-36.0); MCV 92.4 fL (80-100); Neutrophils % 72.3 % (41.7-73.7); Platelets 200 thou/uL (152-406); RBC Red Blood Cell Count 3.76 M/uL (3.86-4.86)
--- NOTE | 2023-06-30 10:19 | RAD REPORT ---
EXAM DESCRIPTION: RAD - Chest Single View - 06/30/2023 10:05 am CLINICAL HISTORY: Dyspnea;Chest pain COMPARISON: Chest Single View dated 04/18/2023; Chest Single View dated 04/17/2022; Chest Single View dated 03/24/2022; Chest Single View dated 03/22/2022 FINDINGS: Lines: None. Lungs: No evidence of edema or pneumonia. Pleural: No significant pleural effusions or pneumothorax. Cardiac: Similar mid mild cardiomegaly. Mediastinum: Within normal limits. Bones: No acute fractures. Other: None IMPRESSION: No acute cardiopulmonary disease.
[2023-06-30 10:21] LABS: PT Prothrombin Time 12.7 SECONDS (9.5-12.5); Protime INR 1.16
[2023-06-30 10:36] LABS: Albumin 3.6 g/dL (3.4-5.0); Albumin/Globulin Ratio 0.9 (1.1-1.8); Anion Gap 9.6 mEq/L (5.0-15.0); Bilirubin Direct 0.2 mg/dL (0-0.2); Bilirubin Indirect, Calculated 0.3 mg/dL (0.2-0.8); Bilirubin Total 0.5 mg/dL (0.2-1.0); Globulin 3.9 g/dL (2.3-3.5); Magnesium 2.1 mg/dL (1.6-2.4); Potassium 4.6 mEq/L (3.5-5.1); Protein, Total 7.5 g/dL (6.4-8.2)
[2023-06-30 10:58] LABS: Sqamous Epithelial <5 /HPF (None Seen); Urine Bacteria None Seen /HPF (<20); Urine Bilirubin NEGATIVE (Negative); Urine Blood Negative (Negative); Urine Clarity Turbid (Clear); Urine Color Light-Yellow (Yellow); Urine Culture Reflex Order REFLEXED; Urine Glucose NEGATIVE (Negative); Urine Ketones TRACE (Negative); Urine Microscopic Reflex YN ORDER UMIC; Urine Nitrite NEGATIVE (Negative); Urine Protein 2+ (Negative); Urine RBC <5 /HPF (None Seen); Urine Urobilinogen Normal (Normal); Urine WBC 20-50 /HPF (<5); Urine WBC Clump Rare /HPF (None Seen); Urine Yeast (Budding) Few /HPF (None Seen)
--- NOTE | 2023-06-30 12:09 | ER ---
Nurse's Notes [facility] Name: Gloria Longoria Age: 82 yrs Sex: Female : 1940 Arrival Date: 06/30/2023 Time: 09:22 Bed 8 Private MD: Diagnosis: Chest pain, unspecified;Dyspnea, unspecified Presentation: 06/29 09:24 Chief complaint: Patient states: CP, SOB, and weakness for a few days. Coronavirus ll1 screen: Client denies travel out of the [place] in the last 14 days. difficulty breathing, fatigue, headache, shortness of breath. Ebola Screen: Patient denies travel to an Ebola-affected area in the 21 days before illness onset. Initial Sepsis Screen: Does the patient meet any 2 criteria? No. Patient's initial sepsis screen is negative. Does the patient have a suspected source of infection? No. Patient's initial sepsis screen is negative. Risk Assessment: Do you want to hurt yourself or someone else? Patient reports no desire to harm self or others. Onset of symptoms was June 27, 2023. 09:24 Method Of Arrival: EMS: [facility] 1 09:24 Acuity: MALAIKA 3 ll1 09:34 Chief complaint: EMS states: A fib rate 80's. BP 176/80's. Couldn't get IV en route. ll1 Triage Assessment: 09:26 General: Appears uncomfortable, Behavior is calm, cooperative, appropriate for age. ll1 Pain: Complains of pain in chest Quality of pain is described as aching. Cardiovascular: Reports chest pain, fatigue, shortness of breath. Respiratory: Reports shortness of breath. Historical: - Allergies: 09:26 Sulfa (Sulfonamide Antibiotics); ll1 - PMHx: 09:26 ADD/ADHD; BLIND; CHF; colon cancer; COPD; Diabetes - IDDM; Hypertension; Myocardial ll1 infarction; Pneumonia; - Immunization history:: Adult Immunizations up to date. - Infectious Disease History:: Denies. - Social history:: Smoking status: Patient denies any tobacco usage or history of. - Family history:: not pertinent. - Hospitalizations: : No recent hospitalization is reported. Screenin:09 [facility] ED Fall Risk Assessment (Adult) History of falling in the last 3 months, mb9 including since admission No falls in past 3 months (0 pts) Confusion or Disorientation No (0 pts) Intoxicated or Sedated No (0 pts) Impaired Gait No (0 pts) Mobility Assist Device Used No (0 pt) Altered Elimination No (0 pt) Score/Fall Risk Level 0 - 2 = Low Risk Oriented to surroundings, Maintained a safe environment, Educated pt \T\ family on fall prevention, incl call for assistance when getting out of bed. Abuse screen: Denies threats or abuse. Nutritional screening: No deficits noted. Tuberculosis screening: No symptoms or risk factors identified. Assessment: 09:46 Reassessment: No changes from previously documented assessment. Patient and/or family ll1 updated on plan of care and expected duration. Pain level reassessed. Patient is alert, oriented x 3, equal unlabored respirations, skin warm/dry/pink. 11:08 General: Appears in no apparent distress. Behavior is calm, cooperative. Pain: Denies mb9 pain. Neuro: Small Agitation-Sedation Scale (RASS): 0 - Alert and Calm Level of Consciousness is awake, alert, obeys commands, Oriented to person, place, time, situation, Appropriate for age. Cardiovascular: Heart tones S1 S2 present Patient's skin is warm and dry. Respiratory: Reports shortness of breath Airway is patent Respiratory effort is even, unlabored, Respiratory pattern is regular, symmetrical. GI: No signs and/or symptoms were reported involving the gastrointestinal system. : No signs and/or symptoms were reported regarding the genitourinary system. Derm: Skin is pink, warm \T\ dry. 12:00 Reassessment: No changes from previously documented assessment. Patient and/or family mb9 updated on plan of care and expected duration. Pain level reassessed. Patient is alert, oriented x 3, equal unlabored respirations, skin warm/dry/pink. 13:00 Reassessment: No changes from previously documented assessment. Patient and/or family mb9 updated on plan of care and expected duration. Pain level reassessed. Patient is alert, oriented x 3, equal unlabored respirations, skin warm/dry/pink. Vital Signs: 09:34 BP 162 / 78; Pulse 75; Resp 18; Temp 98; Pulse Ox 95% ; Pain 4/10; ll1 10:34 Pulse 83; Resp 16; Pulse Ox 97% on R/A; mb9 10:35 BP 144 / 58; mb9 11:24 BP 149 / 51; Pulse 82; Resp 16; Pulse Ox 97% on R/A; mb9 13:04 BP 152 / 83; Pulse 79; Resp 20; Pulse Ox 94% on R/A; tl4 09:34 Pain Scale: Adult ll1 ED Course: 09:24 Patient arrived in ED. ll1 09:24 Zbigniew West MD is Attending Physician. rn 09:26 Triage completed. ll1 09:26 Arm band placed on Patient placed in an exam room, on a stretcher. ll1 09:36 Colten Aleman, TEAGAN is Primary Nurse. ll1 09:43 Placed in gown. Client placed on continuous cardiac and pulse oximetry monitoring. NIBP jg11 monitoring applied. national recruiter on. Pulse ox on. 09:43 EKG done, by ED staff. jg11 09:46 Missed attempt(s): 22 gauge in left antecubital area. Bleeding controlled, band aid jg11 applied, catheter tip intact. 09:46 Initial lab(s) drawn, by mn, sent to lab. Missed attempt(s): 22 gauge in right upper ll1 arm. Bleeding controlled, band aid applied, catheter tip intact. 10:07 XRAY Chest (1 view) In Process Unspecified. EDMS 10:35 Straight cath inserted, using sterile technique, 16 Fr. Returned clear yellow urine. mb9 Patient tolerated well. 10:35 No provider procedures requiring assistance completed. mb9 10:35 Urinalysis w/ reflexes Sent. mb9 11:24 Primary Nurse role handed off by Colten Aleman RN mb9 11:24 Dory Garcia, TEAGAN is Primary Nurse. mb9 11:52 Provided Education on: press call light if needing anything. mb9 12:08 Quoc West MD is Hospitalizing Provider. rn 13:20 Patient admitted, IV remains in place. mb9 Administered Medications: No medications were administered Medication: 11:09 VIS not applicable for this client. mb9 Outcome: 12:08 Decision to Hospitalize by Provider. rn 13:20 Admitted to Tele accompanied by leonarda, room 406, mb9 13:20 Condition: stable 13:20 Instructed on the need for admit, 13:43 Patient left the ED. mb9 Signatures: Dispatcher [employer] EDMS Zbigniew West MD MD rn Lewis Lynsay, RN RN ll1 Radha, Dory Lopez, RN RN mb9 Robert Joshua RN RN tl4 Charli Clifford jg11
--- NOTE | 2023-06-30 12:09 | EDPHYS ---
Physician Documentation [facility] Name: Gloria Longoria Age: 82 yrs Sex: Female : 1940 Arrival Date: 06/30/2023 Time: 09:22 Bed 8 Private MD: ED Physician Zbigniew West HPI: 06/29 10:15 This 82 yrs old Black Female presents to ER via EMS with complaints of Chest Pain, rn General Weakness. 10:15 The patient has shortness of breath at rest, with light activity. rn 10:15 Onset: The symptoms/episode began/occurred 1 week(s) ago. Duration: The symptoms are rn intermittent. The patient's shortness of breath has no apparent modifying factors, is aggravated by light activity, is alleviated by nothing. Severity of symptoms: At their worst the symptoms were moderate in the emergency department the symptoms are unchanged. The patient has not experienced similar symptoms in the past. Patient reports intermittent chest pain and shortness of breath associated with generalized weakness for approximately a week. EMS reports possible A-fib on monitor, patient without history of A-fib. Seen by her inspector shells Dr. Beavers yesterday and reports stress test or echo were ordered but not performed yet. Patient denies syncope. No trauma. No known medication changes. Does not feel ill. No fever.. Historical: - Allergies: 09:26 Sulfa (Sulfonamide Antibiotics); ll1 - PMHx: 09:26 ADD/ADHD; BLIND; CHF; colon cancer; COPD; Diabetes - IDDM; Hypertension; Myocardial ll1 infarction; Pneumonia; - Immunization history:: Adult Immunizations up to date. - Infectious Disease History:: Denies. - Social history:: Smoking status: Patient denies any tobacco usage or history of. - Family history:: not pertinent. - Hospitalizations: : No recent hospitalization is reported. ROS: 10:15 Constitutional: Negative for fever, chills, and weight loss, Eyes: Negative for injury, rn pain, redness, and discharge, Cardiovascular: Positive for chest pain Respiratory: Positive for shortness of breath Abdomen/GI: Negative for abdominal pain, nausea, vomiting, diarrhea, and constipation, MS/Extremity: Negative for injury and deformity, Skin: Negative for injury, rash, and discoloration, Neuro: Positive for generalized weakness Exam: 10:15 Constitutional: Overweight female, no acute distress, appears anxious Head/Face: rn Normocephalic, atraumatic. Cardiovascular: Regular rate, irregular rhythm. No pulse deficits Respiratory: Mild tachypnea, diminished breath sounds at bases. No retractions Abdomen/GI: Soft, non-tender MS/ Extremity: Pulses equal, no cyanosis. Neurovascular intact. Full, normal range of motion. Equal circumference. Neuro: Awake and alert, GCS 15 Vital Signs: 09:34 BP 162 / 78; Pulse 75; Resp 18; Temp 98; Pulse Ox 95% ; Pain 4/10; ll1 10:34 Pulse 83; Resp 16; Pulse Ox 97% on R/A; mb9 10:35 BP 144 / 58; mb9 11:24 BP 149 / 51; Pulse 82; Resp 16; Pulse Ox 97% on R/A; mb9 13:04 BP 152 / 83; Pulse 79; Resp 20; Pulse Ox 94% on R/A; tl4 09:34 Pain Scale: Adult ll1 MDM: 09:24 Patient medically screened. rn 12:07 Differential diagnosis: Anemia Anxiety Reaction Bronchitis CHF exacerbation, Chronic rn Obstructive Pulmonary Disease Myocardial Infarction Pneumothorax pulmonary edema. Data reviewed: vital signs, nurses notes, lab test result(s), EKG, radiologic studies, plain films, and as a result, I will admit patient. Consideration of Admission/Observation Patient was admitted/placed on observation. Escalation of care including admission/observation considered. Counseling: I had a detailed discussion with the patient and/or guardian regarding the historical points, exam findings, and any diagnostic results supporting the discharge/admit diagnosis, lab results, radiology results, the need for further work-up and treatment in the hospital. ED course: Findings and workup here. Patient still reports intermittent dyspnea and chest pain. Will admit to hospitalist for further evaluation with cardiology consultation given recent recommendation of stress test and/or echo.. 06/29 09:24 Order name: Basic Metabolic Panel; Complete Time: 10:51 rn 06/29 09:24 Order name: CBC with Diff; Complete Time: 10:30 rn 06/29 09:24 Order name: LFT's; Complete Time: 10:51 rn 06/29 09:24 Order name: Magnesium; Complete Time: 10: rn 06/29 09:24 Order name: NT PRO-BNP; Complete Time: 10: rn 06/29 09:24 Order name: PT-INR; Complete Time: 10:30 rn 06/29 09:24 Order name: Troponin HS; Complete Time: 10:51 rn 06/29 09:25 Order name: Urinalysis w/ reflexes; Complete Time: 11:55 rn 06/29 11:05 Order name: Urine Culture EDLA 06/29 09:24 Order name: XRAY Chest (1 view); Complete Time: 10:30 rn 06/29 12:43 Order name: Echo with Doppler EDLA 06/29 09:24 Order name: Cardiac monitoring; Complete Time: 09:46 rn 06/29 09:24 Order name: EKG - Nurse/Tech; Complete Time: 09:46 rn 06/29 09:24 Order name: IV Saline Lock; Complete Time: 11:08 rn 06/29 09:24 Order name: Labs collected and sent; Complete Time: 09:46 rn 06/29 09:24 Order name: O2 Per Protocol; Complete Time: 09:46 rn 06/29 09:24 Order name: O2 Sat Monitoring; Complete Time: 09:46 rn 06/29 09:54 Order name: Straight Cath - Urine; Complete Time: 10:35 mb9 Administered Medications: No medications were administered Disposition Summary: 06/30/23 12:08 Hospitalization Ordered Notes: Hospitalization Status: Observation rn Provider: Quoc West rn [facility] rn Condition: Stable rn Problem: new rn Symptoms: have improved rn Bed/Room Type: Standard rn Room Assignment: 420(06/30/23 13:25) iw Diagnosis - Chest pain, unspecified rn - Dyspnea, unspecified rn Forms: - Medication Reconciliation Form rn - SBAR form rn - Leadership Thank You Letter rn Signatures: Dispatcher [employer] Jeniffer Hdez RN RN Zbigniew Markham MD MD rn Martinez, Eric emColten Vicente RN RN ll1 Dory Garcia RN RN mb9 Corrections: (The following items were deleted from the chart) 09:25 09:25 BASIC METABOLIC PANEL+C.LAB.BRZ ordered. EDMS EDMS 09:25 09:25 CBC+H.LAB.BRZ ordered. EDMS EDMS 09:25 09:25 HEPATIC FUNCTION+C.LAB.BRZ ordered. EDMS EDMS 09: 09:25 MAGNESIUM+C.LAB.BRZ ordered. EDMS EDMS : 09:25 PROBNP+C.LAB.BRZ ordered. EDMS EDMS : 09:25 PROTIME (+INR)+COAG.LAB.BRZ ordered. EDMS EDMS : 09:25 Troponin High Sensitivity+C.LAB.BRZ ordered. EDMS EDMS : 09:25 Chest Single View+RAD.RAD.BRZ ordered. EDMS EDMS 12:58 12:08 rn em1 13:25 12:58 406 em1 iw
--- NOTE | 2023-06-30 13:54 | P.HP ---
Certification for Inpatient Patient admitted to: Observation With expected LOS: <2 Midnights Patient will require the following post-hospital care: None Practitioner: I am a practitioner with admitting privileges, knowledge of patient current condition, hospital course, and medical plan of care. Services: Services provided to patient in accordance with Admission requirements found in Title 42 Section 412.3 of the Code of Federal Regulations Patient History Date of Service: 06/30/23 Reason for admission: Chest pain History of Present Illness: 82-year-old female with history of CKD 3, chronic diastolic congestive heart failure/pulmonary hypertension, diabetes mellitus type 2insulin-dependent, COPD presents emergency department chief complaint of shortness of breath, chest pain. Patient reports has been feeling unwell for the past 1 week and progressive shortness of breath last 2 to 3 days as well as some occasional chest pain. She had seen her cardiologistDr. Beavers yesterday who had ordered outpatient stress test and echocardiogram but she continued to feel worse and if that reason came to the emergency department for evaluation. She was evaluated in the emergency department initial high-sensitivity troponin was negative, EKG without STEMI criteria and chest x-ray was negative for acute findings. ED provider statement patient under observation for ACS rule out. She does report having annual stress test but has never had a heart catheterization. Allergies Sulfa (Sulfonamide Antibiotics) Allergy (Intermediate, Verified 04/19/22 12:46) Rash Home Medications: Aspirin [Aspirin EC 81 MG] 81 mg PO DAILY 02/07/22 Carvedilol [Coreg] 25 mg PO BID 02/07/22 Insulin Lispro [Humalog] See Rx Instructions .ROUTE .COMPLEX 02/07/22 Magnesium Oxide [Mag 0X*] 400 mg PO DAILY 02/07/22 Rosuvastatin Calcium 40 mg PO BEDTIME 02/07/22 Trazodone [Desyrel*] 50 mg PO BEDTIME 02/07/22 Clopidogrel Bisulfate [Plavix] 75 mg PO DAILY 03/04/22 Insulin Detemir [Levemir] 60 units SQ BEDTIME 03/04/22 Ezetimibe [Zetia*] 10 mg PO DAILY #30 tab 03/05/22 Folic Acid 1 mg PO DAILY #30 tab 03/05/22 Amlodipine [Norvasc*] 5 mg PO BID 03/22/22 Cholecalciferol (Vitamin D3) [Vitamin D3] 1 tab PO DAILY 03/22/22 Cyanocobalamin/Cobamamide [Vitamin B-12 5,000 Mcg Tab Sl] 1 tab PO DAILY 3 Dulaglutide [Trulicity] 0.75 mg SQ MO 03/22/22 Ferrous Sulfate [Ferrous Sulfate*] 325 mg PO DAILY 03/22/22 Sertraline [Zoloft*] 100 mg PO DAILY 03/22/22 Spironolactone [Aldactone*] 25 mg PO BID 03/22/22 Benzonatate [Tessalon Perle*] 100 mg PO TID PRN 7 Days #20 cap 03/24/22 Furosemide 40 mg PO DAILY #30 03/24/22 Fluticasone/Umeclidin/Vilanter [Trelegy Ellipta 100-62.5-25] 2 puff PO DAILY 04/19/22 Amoxicillin/Potassium Clav [Augmentin 500-125 Tablet] 1 each PO BID 3 Days #6 tab 04/22/23 Pregabalin 75 mg PO DAILY 30 Days #30 cap 04/22/23 - Past Medical/Surgical History Diabetic: Yes -: Glaucoma -: CHF, diastolic dysfunction -: HTN -: GERD -: DM II with PolyNeuropathy -: CKD III (Dr. Alvarez) -: CAD -: Fatty liver with Morbid Obesity -: CAD -: COPD -: History of Colon CA -: Cholecystectomy -: Colon resection -: Appendectomy -: Hysterectomy -: Right Rotator Cuff Repair -: Colectomy Psychosocial/ Personal History: She lives at home. Her daughter helps her at home. - Family History Mother -: Cancer Notes: colon Brother -: Hypertension Sister -: Heart disease, Hypertension, Lung disease, Cancer - Social History Smoking Status: Never smoker Alcohol use: No CD- Drugs: No Caffeine use: Yes Place of Residence: Home Review of Systems 10-point ROS is otherwise unremarkable Respiratory: Shortness of Breath Cardiovascular: Chest Pain Physical Examination - Physical Exam General: Alert, In no apparent distress, Oriented x3, Other (Patient is blind) HEENT: Atraumatic, PERRLA, Mucous membr. moist/pink Neck: Supple, 2+ carotid pulse no bruit, No LAD Respiratory: Clear to auscultation bilaterally, Normal air movement Cardiovascular: Regular rate/rhythm, Normal S1 S2 Gastrointestinal: Normal bowel sounds, No tenderness Musculoskeletal: No tenderness Integumentary: No rashes Neurological: Normal speech, Normal strength at 5/5 x4 extr, Normal tone, Normal affect - Studies Laboratory Data (last 24 hrs) 06/30/23 06/30/23 06/30/23 09:47 09:47 09:47 WBC 8.10 Hgb 11.2 L Hct 34.7 L Plt Count 200 PT 12.7 H INR 1.16 Sodium 136 Potassium 4.6 BUN 18 Creatinine 1.32 H Glucose 250 H Magnesium 2.1 Total Bilirubin 0.5 AST 21 ALT 24 Alkaline Phosphatase 84 Assessment and Plan - Plan Assessment: Chest pain rule out ACS Chronic diastolic congestive heart failure Diabetes mellitus type 2insulin-dependent with hyperglycemia Hypertension COPD CKD 3 Blindness Plan: Chest pain rule out ACS Chronic diastolic congestive heart failure Cardiology consult, echo ordered Trend troponins, monitor on tele Continue aspirin, other home medications Consider stress test Diabetes mellitus type 2insulin-dependent with hyperglycemia ACHS accucheck, SSI resume long acting home insulin when verified Hypertension COPD CKD 3 Continue home meds Blindness DVT PPX: Lovenox Code status: Full Discharge Plan: Home Plan to discharge in: 24 Hours - Advance Directives Does patient have a Living Will: No Does patient have a Durable POA for Healthcare: No - Code Status/Comfort Care Code Status Assessed: Yes (Full code) Critical Care: No Time Spent Managing Pts Care (In Minutes): 70
[2023-06-30] MEDS: ENOXAPARIN 40 MG/0.4 ML SQ SCH (16:01)
[2023-06-30] MEDS: INSULIN REGULAR (HUMAN) 100 UNIT/ML SQ SCH (16:02)
[2023-06-30 16:57] VITALS: BMI 41.0
[2023-06-30 17:33] VITALS: O2SAT 95
--- NOTE | 2023-06-30 20:48 | CON ---
Date of Consultation: 06/30/2023 Reason For Consultation: Chest pain and atrial fibrillation. History Of Present Illness: 82-year-old female, history of diastolic heart failure, diabetes, COPD, presented to the emergency room with generalized fatigue, very weak with some chest discomfort. Kobe es having any shortness of breath. No nausea or vomiting. No diarrhea, but she feels like no energy . I saw her in the office yesterday and workup was scheduled, but she did not feel well, so she went to the emergency room. Past Medical History: As outlined above in the HPI. Medications: Refer to reconciliation sheet for detailed list. Allergies: SULFA. Family History: No premature coronary artery disease or cancer. Social History: Does not smoke or drink. Does not use any drugs. Review of Systems: All systems reviewed and they were negative except as mentioned in the HPI. Physical Examination: Vital Signs: Reviewed. Head and Neck: Pupils are equal, reactive to light. Intact eye movements. No JVD. No cervical lym phadenopathy. Neck is supple. Thyroid is not enlarged. Lungs: Clear to auscultation bilaterally. No rhonchi, wheezing, or crackles. No accessory muscle u se. Heart: Irregular. No extra sounds. Abdomen: Soft, nontender. Bowel sounds positive. No organomegaly. No masses or hernia. No rigidi ty or rebound. Extremities: No edema, clubbing, or cyanosis. Intact pulses. Skin: No rash or nodule. Neurologic: Alert, awake, oriented x3. No acute focal deficits appreciated. Investigations: Cardiac enzymes x2, so far, are negative and her urinalysis showed urinary tract inf ection, and the hemoglobin 11.2. Assessment And Recommendations: 1.Significant fatigue and low energy, likely due to urinary tract infection. Recommend to start Simeon ephin 1 g q.24 hours. Order was placed and send urine for cultures. 2.Chest pain, it is atypical. Cardiac enzymes are negative. Workup is scheduled as an outpatient a nd we will keep it as such and just trend troponin and the baby aspirin and I will monitor the patien t with you. 3.Diastolic heart failure, chronic, and appears to be stable and NYHA class 2. 4.Hypertension and blood pressure is elevated. Resume home medications, adjust further as needed. I believe her major problem is the urinary tract infection. SR/MODL Voice ID: [id number] Report ID: [id number]
[2023-06-30] MEDS: CEFTRIAXONE 1,000 MG in NA CHLORIDE 0.9% 50 ML IVPB SCH (22:51)
[2023-07-01] MEDS: MORPHINE 2 MG/ML SYR IV PRN (01:58)
[2023-07-01 04:05] LABS: Absolute Eosinophils 0.2 K/uL (0-0.5); Absolute Lymphocytes (CBC) 1.3 K/uL (0.7-4.9); Absolute Monocytes 1.1 K/uL (0.1-1.3); Absolute Neutrophil 5.4 K/uL (1.8-8.0); Basophils % 0.3 % (0-1.3); Eosinophils % 2.3 % (0-4.4); Hemoglobin 10.7 g/dL (12.0-15.0); Lymphocytes % 15.9 % (15.3-44.8); MCH 30.5 pg (27.0-35.0); MCHC 33.4 g/dL (32.0-36.0); MCV 91.2 fL (80-100); MPV 8.7 fL (7.6-11.3); Monocytes % 14.1 % (3.3-12.3); Neutrophils % 67.4 % (41.7-73.7); Nucleated Red Blood Cells % 0.1 % (0-0); Platelets 205 thou/uL (152-406); Red Cell Distribution Width 14.8 % (12.1-15.2)
[2023-07-01 04:28] LABS: ALT/SGPT 23 U/L (13-56); AST/SGOT 19 U/L (15-37); Albumin 3.1 g/dL (3.4-5.0); Albumin/Globulin Ratio 0.8 (1.1-1.8); Alkaline Phosphatase 84 U/L (45-117); Anion Gap 8.1 mEq/L (5.0-15.0); BUN Blood Urea Nitrogen 16 mg/dL (7-18); Bicarbonate 27 mEq/L (21-32); Bilirubin Total 0.3 mg/dL (0.2-1.0); Globulin 3.7 g/dL (2.3-3.5); Glomerular Filtration Rate 50 ml/min (=/>90); Glucose Level 234 mg/dL (74-106); HDL Cholesterol 23 mg/dL (40-60); Potassium 4.1 mEq/L (3.5-5.1); Protein, Total 6.8 g/dL (6.4-8.2); Sodium Level 137 mEq/L (136-145); Troponin High Sensitivity 12.4 pg/mL (<58.9)
[2023-07-01 04:33] LABS: LDL Cholesterol,Calc NonReport -8
[2023-07-01 04:45] LABS: LDL, Direct 31 mg/dL (100-129)
[2023-07-01] MEDS: CEFTRIAXONE 1000 MG/VIAL ONE (07:36)
[2023-07-01] MEDS: carvediloL 25 MG TAB PO SCH (09:23)
[2023-07-01] MEDS: ASPIRIN EC 81 MG TAB PO SCH (09:23)
[2023-07-01] MEDS: PANTOPRAZOLE 40MG TABLET PO ONE (09:24)
[2023-07-01] MEDS: CLOPIDOGREL 75 MG TABLET PO SCH (09:24)
[2023-07-01] MEDS: FUROSEMIDE 40 MG TABLET PO SCH (09:24)
[2023-07-01] MEDS: SPIRONOLACTONE 25 MG TABLET PO SCH (09:24)
[2023-07-01] MEDS: SERTRALINE HCL 100 MG TAB PO SCH (09:24)
[2023-07-01] MEDS: FERROUS SULFATE 325 MG TAB PO SCH (09:24)
[2023-07-01] MEDS: FOLIC ACID 1 MG TABLET PO SCH (09:27)
[2023-07-01] MEDS: MAGNESIUM OXIDE 400 MG TAB PO SCH (09:28)
[2023-07-01] MEDS: PREGABALIN 75 MG CAP PO SCH (09:28)
[2023-07-01 11:55] VITALS: BP 157/76; TEMP 97.5
--- NOTE | 2023-07-01 13:24 | P.DS ---
Admission Date: 06/30/23 Discharge Date: 07/01/23 Disposition: DC HOME/HOME HEALTH CARE Discharge Condition: GOOD Reason for Admission: Chest pain Brief History of Present Illness: 82-year-old female with history of CKD 3, chronic diastolic congestive heart failure/pulmonary hypertension, diabetes mellitus type 2insulin-dependent, COPD presents emergency department chief complaint of shortness of breath, chest pain. Patient reports has been feeling unwell for the past 1 week and progressive shortness of breath last 2 to 3 days as well as some occasional chest pain. She had seen her cardiologistDr. Beavers yesterday who had ordered outpatient stress test and echocardiogram but she continued to feel worse and if that reason came to the emergency department for evaluation. She was evaluated in the emergency department initial high-sensitivity troponin was negative, EKG without STEMI criteria and chest x-ray was negative for acute findings. ED provider statement patient under observation for ACS rule out. She does report having annual stress test but has never had a heart catheterization. Hospital Course: Assessment: Chest pain rule out ACS Chronic diastolic congestive heart failure Diabetes mellitus type 2insulin-dependent with hyperglycemia Hypertension COPD CKD 3 Blindness Patient was admitted to the hospital and observation for chest pain/shortness of breath/ACS rule out. Troponins were negative x 3, she was monitored on telemetry without significant arrhythmia and her symptoms have improved. Cardiology evaluated patient and recommends further evaluation as an outpatient with stress test. She was complaining of some acid reflux during her admission , this was discussed with patient and her daughter they have been taking an over-t he-counter antacid daily and Protonix as needed. Discussed taking [id number] antacid in the morning and Protonix at night or vice versa for the next 1 week as well as outpatient follow-up with GI if symptoms persist. Urinalysis with some white blood cells, concern for possible urinary tract infection. Patient denies any urinary symptoms currently and urine culture preliminarily showing mixed beka. Will hold off on antibiotics at this time and follow-up urine culture for final report. Please follow-up with primary care doctor in 1 to 2 weeks Follow-up with cardiologyDr. Beavers for outpatient stress test Follow-up with GIDr. Simeon if you persist having issues with reflux Continue taking home medications as prescribed Vital Signs/Physical Exam: Temp Pulse Resp BP Pulse Ox 97.5 F 82 15 157/76 H 93 07/01/23 11:39 07/01/23 11:39 07/01/23 11:39 07/01/23 11:39 07/01/23 11:39 General: Alert, In no apparent distress, Oriented x3 HEENT: Atraumatic, PERRLA Neck: Supple, JVD not distended Respiratory: Clear to auscultation bilaterally, Normal air movement Cardiovascular: Regular rate/rhythm, Normal S1 S2 Gastrointestinal: Normal bowel sounds, No tenderness Musculoskeletal: No tenderness Integumentary: No rashes Neurological: Normal speech, Normal tone Laboratory Data at Discharge: WBC 8.10 thou/uL (4.3-10.9) 07/01/23 03:47 Hgb 10.7 g/dL (12.0-15.0) L 07/01/23 03:47 Hct 32.0 % (36.0-45.0) L 07/01/23 03:47 Plt Count 205 thou/uL (152-406) 07/01/23 03:47 PT 12.7 SECONDS (9.5-12.5) H 06/30/23 09:47 INR 1.16 06/30/23 09:47 Sodium 137 mEq/L (136-145) 07/01/23 03:47 Potassium 4.1 mEq/L (3.5-5.1) 07/01/23 03:47 BUN 16 mg/dL (7-18) 07/01/23 03:47 Creatinine 1.11 mg/dL (0.55-1.02) H 07/01/23 03:47 Glucose 234 mg/dL (74-106) H 07/01/23 03:47 Magnesium 2.0 mg/dL (1.6-2.4) 07/01/23 03:47 Total Bilirubin 0.3 mg/dL (0.2-1.0) 07/01/23 03:47 AST 19 U/L (15-37) 07/01/23 03:47 ALT 23 U/L (13-56) 07/01/23 03:47 Alkaline Phosphatase 84 U/L (45-117) 07/01/23 03:47 Triglycerides 330 mg/dL (<150) H 07/01/23 03:47 Cholesterol 81 mg/dL (<200) 07/01/23 03:47 LDL Cholesterol Direct 31 mg/dL (100-129) L 07/01/23 03:47 HDL Cholesterol 23 mg/dL (40-60) L 07/01/23 03:47 Cholesterol/HDL Ratio 3.52 07/01/23 03:47 Home Medications: Aspirin [Aspirin EC 81 MG] 81 mg PO DAILY 02/07/22 Carvedilol [Coreg] 25 mg PO BID 02/07/22 Magnesium Oxide [Mag 0X*] 400 mg PO DAILY 02/07/22 Rosuvastatin Calcium 40 mg PO BEDTIME 02/07/22 Trazodone [Desyrel*] 50 mg PO BEDTIME 02/07/22 Clopidogrel Bisulfate [Plavix] 75 mg PO DAILY 03/04/22 Folic Acid 1 mg PO DAILY #30 tab 03/05/22 Cholecalciferol (Vitamin D3) [Vitamin D3] 1 tab PO DAILY 03/22/22 Cyanocobalamin/Cobamamide [Vitamin B-12 5,000 Mcg Tab Sl] 1 tab PO DAILY 03/22/22 Ferrous Sulfate [Ferrous Sulfate*] 325 mg PO DAILY 03/22/22 Sertraline [Zoloft*] 100 mg PO DAILY 03/22/22 Spironolactone [Aldactone*] 25 mg PO DAILY 03/22/22 Furosemide 40 mg PO DAILY #30 03/24/22 Fluticasone/Umeclidin/Vilanter [Trelegy Ellipta 100-62.5-25] 2 puff PO BID 04/19/22 Pregabalin 75 mg PO DAILY 30 Days #30 cap 04/22/23 Losartan Potassium [Cozaar] 25 mg PO BEDTIME 06/30/23 Metformin HCl [Glucophage] 500 mg PO BIDWM 06/30/23 Semaglutide [Ozempic] 1 mg SQ 06/30/23 Physician Discharge Instructions: Established Home Health: [facility] P: [phone] F: [phone] Patient was admitted to the hospital and observation for chest pain/shortness of breath/ACS rule out. Troponins were negative x 3, she was monitored on telemetry without significant arrhythmia and her symptoms have improved. Cardiology evaluated patient and recommends further evaluation as an outpatient with stress test. She was complaining of some acid reflux during her admission , this was discussed with patient and her daughter they have been taking an [id number]-[id number] antacid daily and Protonix as needed. Discussed taking omza-wqm-exmfhuq antacid in the morning and Protonix at night or vice versa for the next 1 week as well as outpatient follow-up with GI if symptoms persist. Urinalysis with some white blood cells, concern for possible urinary tract infection. Patient denies any urinary symptoms currently and urine culture preliminarily showing mixed beka. Will hold off on antibiotics at this time and follow-up urine culture for final report. Please follow-up with primary care doctor in 1 to 2 weeks Follow-up with cardiologyDr. Beavers for outpatient stress test Follow-up with GIDr. Simeon if you persist having issues with reflux Continue taking home medications as prescribed Diet: ADA Activity: Fall precautions Followup: Ean Beavers MD [ACTIVE - CAN ADMIT] - Nelda Ford MD [Primary Care Provider] - 1-2 Weeks Time spent managing pt's care (in minutes): 30
--- NOTE | 2023-07-01 13:40 | EKG ---
Test Date: 2023-06-30 Test Time: 09:39:31 Financial Service Representative: ISAIAS MEASUREMENT RESULTS: Intervals: Rate: 84 IA: QRSD: 80 QT: 402 QTc: 475 [place]: P: IA: QRS: 8 T: 102 INTERPRETIVE STATEMENTS: Atrial fibrillation Abnormal ECG Compared to ECG 04/18/2023 12:20:31 Sinus rhythm no longer present Sinus arrhythmia no longer present First degree AV block no longer present Myocardial infarct finding no longer present Electronically Signed On 07-01-23 13:38:07 CDT by Ean Beavers
[2023-07-01] MEDS ORDERED: PANTOPRAZOLE 40MG TABLET PO SCH (16:30)
[2023-07-01] MEDS ORDERED: METFORMIN HCL 500 MG TAB PO SCH (17:00)
[2023-07-01] MEDS ORDERED: LOSARTAN POTASSIUM 50 MG TABLET PO SCH (21:00)
[2023-07-01] MEDS ORDERED: TRAZODONE 50 MG TABLET PO SCH (21:00)
[2023-07-01] MEDS ORDERED: ROSUVASTATIN 10 MG TAB PO SCH (21:00)
== END 2023-07-01 13:16 | disposition home health service (06) ==
LOC: ER 09:22 → ERHOLD 12:40 → 4TH 13:23
PROVIDERS: ADMIT Hospitalist; ATTEND Hospitalist
DX: R07.9 Chest pain, unspecified (principal); N18.30 Chronic kidney disease, stage 3 unspecified; I50.32 Chronic diastolic (congestive) heart failure; I27.20 Pulmonary hypertension, unspecified; E11.9 Type 2 diabetes mellitus without complications; J44.9 Chronic obstructive pulmonary disease, unspecified; R06.02 Shortness of breath; E11.65 Type 2 diabetes mellitus with hyperglycemia; H54.7 Unspecified visual loss; R53.83 Other fatigue; Z79.4 Long term (current) use of insulin; Z88.2 Allergy status to sulfonamides
CPT/HCPCS: 93005; 87088; 85025 ×2; 81001; 87086; 80048; 36415; 83721; 83735 ×2; 85610; 80061; 82947 ×4; 80076; 84443; 84484 ×3; 84439; 80053; 83880; 71045; 97161; 97530; 51702; 99285; J1815 ×4; J1650 ×2; J2270; J0696 ×2; G0378 ×3

== ENCOUNTER 2023-11-04 13:41 | Inpatient (IN) | payer OTHER ==
[2023-11-04 15:51] LABS: Absolute Eosinophils 0.2 K/uL (0-0.5); Absolute Lymphocytes (CBC) 1.2 K/uL (0.7-4.9); Absolute Neutrophil 5.4 K/uL (1.8-8.0); Basophils % 0.4 % (0-1.3); Eosinophils % 2.6 % (0-4.4); Hematocrit 27.8 % (36.0-45.0); Hemoglobin 9.1 g/dL (12.0-15.0); Lymphocytes % 15.7 % (15.3-44.8); MCH 30.5 pg (27.0-35.0); MCHC 32.7 g/dL (32.0-36.0); MCV 93.5 fL (80-100); MPV 8.5 fL (7.6-11.3); Monocytes % 12.3 % (3.3-12.3); Nucleated Red Blood Cells % 0.1 % (0-0); Platelets 212 thou/uL (152-406); RBC Red Blood Cell Count 2.98 M/uL (3.86-4.86); Red Cell Distribution Width 14.7 % (12.1-15.2)
[2023-11-04 15:56] LABS: Protime INR 1.17
[2023-11-04 16:15] LABS: SARS-CoV-2 Antigen CONTROL BLUE LINE VIS/BG OK; SARS-CoV-2 Antigen Rapid Res Negative (Negative)
[2023-11-04 16:23] LABS: ALT/SGPT 21 U/L (13-56); AST/SGOT 15 U/L (15-37); Albumin 3.3 g/dL (3.4-5.0); Albumin/Globulin Ratio 0.8 (1.1-1.8); Alkaline Phosphatase 108 U/L (45-117); Anion Gap 9.9 mEq/L (5.0-15.0); BUN Blood Urea Nitrogen 51 mg/dL (7-18); Bicarbonate 23 mEq/L (21-32); Bilirubin Total 0.3 mg/dL (0.2-1.0); Globulin 4.3 g/dL (2.3-3.5); Glomerular Filtration Rate 19 ml/min (=/>90); Glucose Level 108 mg/dL (74-106); Magnesium 2.6 mg/dL (1.6-2.4); NT PRO-BNP 10802 pg/mL (<450); Potassium 4.9 mEq/L (3.5-5.1); Protein, Total 7.6 g/dL (6.4-8.2); Sodium Level 135 mEq/L (136-145)
[2023-11-04 16:28] LABS: Bilirubin Direct < 0.2 mg/dL (0-0.2); Bilirubin Indirect, Calculated 0.1 mg/dL (0.2-0.8)
[2023-11-04 16:30] LABS: Troponin High Sensitivity 880.9 pg/mL (<58.9)
--- NOTE | 2023-11-04 16:38 | RAD REPORT ---
EXAM DESCRIPTION: RADChest Single View11/04/2023 2:31 pm CLINICAL HISTORY: low blood pressure COMPARISON: Chest Single View dated 06/30/2023; Chest Single View dated 04/18/2023; Chest Single View dated 04/17/2022; Chest Single View dated 03/24/2022 TECHNIQUE: Portable AP view of the chest. FINDINGS: Left basilar mild airspace opacity. Right lung is clear. No pneumothorax or effusion. The cardiomediastinal contours are unremarkable. IMPRESSION: Left basilar mild airspace opacity, could reflect atelectasis or early airspace disease.
[2023-11-04] MEDS ORDERED: FUROSEMIDE 20 MG/ 2ML VIAL ONE (16:58)
--- NOTE | 2023-11-04 17:30 | RAD REPORT ---
EXAM DESCRIPTION: CT - Head Brain Wo Cont - 11/04/2023 5:04 pm CLINICAL HISTORY: WEAKNESS COMPARISON: Head Brain Wo Cont dated 04/18/2023; Head Brain Wo Cont dated 04/17/2022 TECHNIQUE: Noncontrast head CT images were obtained without IV contrast. Multiplanar reformats were generated and reviewed. All CT scans are performed using dose optimization technique as appropriate and may include automated exposure control or mA/KV adjustment according to patient size. FINDINGS: No intracranial hemorrhage, mass, or edema. Midline structures are unremarkable. Bilateral basal ganglia calcifications again seen. Normal ventricular caliber for age. Judd-white matter differentiation is preserved, without evidence of acute infarct. No abnormal extra- axial fluid collections. Mastoid air cells are well aerated. Mild scattered paranasal sinus mucosal thickening. Right ocular p rosthesis present. No acute bony findings. IMPRESSION: No evidence of an acute intracranial process.
--- NOTE | 2023-11-04 17:53 | RAD REPORT ---
EXAM DESCRIPTION: CT - Thorax Wo Con - 11/04/2023 5:04 pm CLINICAL HISTORY: SOB COMPARISON: Thorax Wo Con dated 02/06/2022; Chest Angio dated 09/24/2016; Chest For Pe Angio dated 07/25; Chest For Pe Angio dated 11/20/2015 TECHNIQUE: Axial thin cut images of the chest were obtained without IV contrast. Multiplanar reforma ts were generated and reviewed. All CT scans are performed using dose optimization technique as appropriate and may include automated exposure control or mA/KV adjustment according to patient size. FINDINGS: New 6 mm perifissural nodule along the minor fissure on the right on axial image 31 may re present a perifissural lymph node. Stable 7 mm nodule in the peripheral left lower lobe, axial image 38, likely benign. No other suspicious mass or infiltrate in the lung parenchyma. No pleural thickeni ng or pleural effusion. No pneumothorax. No abnormal mediastinal or hilar masses or lymphadenopathy seen. No significant aortic or pulmonary a rtery findings. Assessment is limited in the absence of IV contrast. No chest wall mass or abnormal axillary lymphadenopathy. Evaluation of the solid abdominal structures reveals no suspicious findings. IMPRESSION: No acute process within the chest. Benign-appearing pulmonary nodules as above.
--- NOTE | 2023-11-04 19:18 | ER ---
Nurse's Notes [facility] Name: Gloria Longoria Age: 82 yrs Sex: Female : 1940 Arrival Date: 11/04/2023 Time: 13:41 Bed 4 Private MD: Diagnosis: Acute kidney failure, unspecified Presentation: 11/03 14:08 Chief complaint: Patient states: Pt c/o left lower back pain, SOB, hypotension, and tl4 cough x 3-4 days. Coronavirus screen: cough unrelated to allergies, shortness of breath. Ebola Screen: No symptoms or risks identified at this time. Initial Sepsis Screen: Does the patient meet any 2 criteria? No. Patient's initial sepsis screen is negative. Does the patient have a suspected source of infection? No. Patient's initial sepsis screen is negative. Risk Assessment: Do you want to hurt yourself or someone else? Patient reports no desire to harm self or others. Onset of symptoms was October 31, 2023. 14:08 Method Of Arrival: Wheelchair tl4 14:08 Acuity: MALAIKA 3 tl4 Triage Assessment: 14:09 General: Appears in no apparent distress. Behavior is calm, cooperative. Pain: tl4 Complains of pain in left low back. EENT: No signs and/or symptoms were reported regarding the EENT system. Neuro: Level of Consciousness is awake, alert, obeys commands, Oriented to person, place, time, situation. Cardiovascular: Reports shortness of breath, Denies chest pain, lightheadedness, nausea, syncope, vomiting, Capillary refill < 3 seconds Patient's skin is warm and dry. Respiratory: Reports shortness of breath cough that is Airway is patent Respiratory effort is even, unlabored, Respiratory pattern is regular, symmetrical. GI: No signs and/or symptoms were reported involving the gastrointestinal system. : No signs and/or symptoms were reported regarding the genitourinary system. Derm: No signs and/or symptoms reported regarding the dermatologic system. Musculoskeletal: No signs and/or symptoms reported regarding the musculoskeletal system. Historical: - Allergies: 14:11 Sulfa (Sulfonamide Antibiotics); tl4 - PMHx: 14:11 ADD/ADHD; BLIND; CHF; colon cancer; COPD; Diabetes - IDDM; Hypertension; Myocardial tl4 infarction; Pneumonia; - Immunization history:: Adult Immunizations unknown. - Infectious Disease History:: Denies. - Social history:: Smoking status: Patient denies any tobacco usage or history of. Screenin:30 [facility] ED Fall Risk Assessment (Adult) History of falling in the last 3 months, aa5 including since admission No falls in past 3 months (0 pts) Confusion or Disorientation No (0 pts) Intoxicated or Sedated No (0 pts) Impaired Gait Yes (1 pt) Mobility Assist Device Used Yes (1 pt) Altered Elimination Yes (1 pt) Score/Fall Risk Level 3 or more points = High Risk Oriented to surroundings, Maintained a safe environment, Educated pt \T\ family on fall prevention, incl call for assistance when getting out of bed, Assessed \T\ reinforced patient's understanding of fall precautions, Hourly rounding (assess needs \T\ fall precautionary measures) done. Abuse screen: Denies threats or abuse. Nutritional screening: No deficits noted. Tuberculosis screening: No symptoms or risk factors identified. Assessment: 15:00 General: Appears comfortable, Behavior is calm, cooperative. Pain: Complains of pain in aa5 left low back Pain radiates to left leg Pain currently is 8 out of 10 on a pain scale. Quality of pain is described as shooting, Is continuous. Neuro: Level of Consciousness is awake, alert, obeys commands, Oriented to person, place, time, situation. Cardiovascular: Denies chest pain, Heart tones S1 S2 present Patient's skin is warm and dry. Rhythm is sinus rhythm. Respiratory: Airway is patent Respiratory effort is even, unlabored, Respiratory pattern is regular, symmetrical, Breath sounds are clear bilaterally. GI: Abdomen is obese, Bowel sounds present X 4 quads. Abd is soft and non tender X 4 quads. Patient currently denies abdominal pain, diarrhea, nausea, vomiting. : No signs and/or symptoms were reported regarding the genitourinary system. EENT: Pt reports she is blind. . Derm: Skin is dry, Skin is normal, Skin temperature is warm. Musculoskeletal: Reports pain in left low back. 16:30 Neuro: Level of Consciousness is awake, alert, obeys commands, Oriented to person, aa5 place, time, situation. Respiratory: Airway is patent Respiratory effort is even, unlabored, Respiratory pattern is regular, symmetrical. Derm: Skin is dry, Skin is normal, Skin temperature is warm. 16:30 General: Appears comfortable, Behavior is calm, cooperative. aa5 18:14 Reassessment: Patient appears in no apparent distress at this time. Patient and/or iw family updated on plan of care and expected duration. Pain level reassessed. Patient is alert, oriented x 3, equal unlabored respirations, skin warm/dry/pink. 19:00 Reassessment:. General: Appears in no apparent distress. comfortable, Behavior is calm, al5 cooperative. Pain: Denies pain. Neuro: Level of Consciousness is awake, alert, obeys commands, Oriented to person, place, time, situation. Cardiovascular: Capillary refill < 3 seconds Patient's skin is warm and dry. Respiratory: Airway is patent Respiratory effort is even, unlabored, Respiratory pattern is regular, symmetrical. GI: No signs and/or symptoms were reported involving the gastrointestinal system. : No signs and/or symptoms were reported regarding the genitourinary system. EENT: No signs and/or symptoms were reported regarding the EENT system. Derm: Skin is intact, Skin is pink, warm \T\ dry. normal. Musculoskeletal: No signs and/or symptoms reported regarding the musculoskeletal system. 20:30 Reassessment: Patient appears in no apparent distress at this time. No changes from al5 previously documented assessment. Patient and/or family updated on plan of care and expected duration. Pain level reassessed. Patient is alert, oriented x 3, equal unlabored respirations, skin warm/dry/pink. 21:30 Reassessment: Patient appears in no apparent distress at this time. No changes from al5 previously documented assessment. Patient and/or family updated on plan of care and expected duration. Pain level reassessed. Patient is alert, oriented x 3, equal unlabored respirations, skin warm/dry/pink. Vital Signs: 14:08 BP 106 / 60; Pulse 78; Resp 28; Temp 98.5(O); Pulse Ox 100% on R/A; Weight 87.54 kg tl4 (M); Pain 8/10; 15:45 BP 120 / 71; Pulse 72; Resp 18 S; Pulse Ox 96% on R/A; aa5 16:30 BP 109 / 59; Pulse 73; Resp 16 S; Pulse Ox 96% on R/A; aa5 18:14 BP 107 / 56; Pulse 76; Resp 19; Pulse Ox 99% on R/A; iw 19:00 BP 116 / 73; Pulse 73; Resp 20; Pulse Ox 97% on R/A; al5 19:30 BP 106 / 61; Pulse 67; Resp 19; Pulse Ox 97% on R/A; al5 20:00 BP 110 / 66; Pulse 74; Resp 18; Pulse Ox 94% on R/A; al5 21:00 BP 127 / 80; Pulse 68; Resp 19; Pulse Ox 100% on R/A; al5 22:00 BP 119 / 74; Pulse 74; Resp 19; Pulse Ox 100% on R/A; al5 14:08 Pain Scale: Adult tl4 ED Course: 13:44 Patient arrived in ED. mg5 13:50 Harris Ramsey PA is PHCP. cp 13:50 Zbigniew West MD is Attending Physician. cp 14:09 Triage completed. tl4 14:10 Jessica Roche, TEAGAN is Primary Nurse. aa5 14:11 Arm band placed on right wrist. tl4 14:11 Patient has correct armband on for positive identification. Placed in gown. Bed in low tl4 position. Call light in reach. Side rails up X2. Adult w/ patient. Client placed on continuous cardiac and pulse oximetry monitoring. NIBP monitoring applied. desk monitor on. Door closed. Noise minimized. Moved to private room. 14:33 XRAY Chest (1 view) In Process Unspecified. EDMS 15:10 Inserted saline lock: 20 gauge in right antecubital area, using aseptic technique. nj1 Blood collected. Flushed with 10 mL NS Ultrasound guided. Catheter tip well visualized within vasculature during placement. 15:40 EKG done, by ED staff, reviewed by Harris PEGUERO. aa5 15:50 No provider procedures requiring assistance completed. aa5 17:05 CT Head Brain wo Cont In Process Unspecified. EDMS 17:06 CT Chest Wo Con In Process Unspecified. EDMS 19:00 Report given to TEAGAN Lam and TEAGAN Palacios. aa5 19:17 Rosalio Greene is Hospitalizing Provider. cp 21:15 Inserted saline lock: 20 gauge in left antecubital area, using aseptic technique. nj1 Flushed with 10 mL NS Ultrasound guided. Catheter tip well visualized within vasculature during placement. 21:56 Valle cath inserted, using sterile technique, 16 Fr., by ne, balloon inflated, to al5 gravity drainage, clamped. urine specimen collected. 21:57 Provided Education on: need for admission. al5 21:57 Patient admitted, IV remains in place. al5 Administered Medications: 16:39 CANCELLED (Physician Discretion): [id number] mg IVP once; give over 2 minutes cp 18:14 Drug: Furosemide IVP 20 mg IVP once; give over 2 minutes Route: IVP; Site: right iw antecubital; 18:30 Follow up: Response: No adverse reaction aa5 19:45 Drug: Aspirin PO Chewable Tablet 324 mg PO once; 81 mg tablets x 4 Route: PO; tm6 20:53 Follow up: Response: No adverse reaction tm6 19:53 Drug: Heparin (IN-Bolus No thrombolytic) - HEParin IVP 60 units/kg IVP once; Max 5000 tm6 units {Co-Signature: elizabeth (Suzanne Lemons RN).} Route: IVP; Site: right antecubital; 20:53 Follow up: Response: No adverse reaction tm6 19:54 Drug: Heparin (IN Drip) 12 units/kg/[place] - ([place] [address] units, D5W IV 500 ml) IV at tm6 calculated rate Per protocol; Max initial rate 1000 units/hr {Co-Signature: elizabeth (Suzanne Lemons RN).} Route: IV; Rate: calculated rate; Site: right antecubital; 22:04 Follow up: IV Status: Infusion continued upon admission al5 21:56 Drug: NS 0.9% IV 1000 ml IV at 75 ml/hr continuous Route: IV; Rate: 75 ml/hr; Site: al5 left antecubital; 22:04 Follow up: IV Status: Infusion continued upon admission al5 Medication: 15:50 VIS not applicable for this client. aa5 Outcome: 19:17 Decision to Hospitalize by Provider. cp 23:13 Admitted to Med/surg accompanied by nurse, accompanied by tech, via stretcher, room al5 230, with chart, 23:13 Condition: stable 23:13 Instructed on the need for admit, 23:13 Patient left the ED. al5 Signatures: Dispatcher [facility] Jeniffer Hdez RN RN iw Calderon, Audri, RN RN aa5 Harris Ramsey PA PA cp Jaco, Norma, RN RN nj1 [facility] mg[facility] Carole Urbina, RN RN tm6 Robert Joshua RN RN tl4 Suzanne Lemons RN RN al5 Suzanne Lemons RN al5 Corrections: (The following items were deleted from the chart) 19:18 15:00 EENT: No signs and/or symptoms were reported regarding the EENT system. aa5 aa5
--- NOTE | 2023-11-04 19:18 | EDPHYS ---
Physician Documentation [facility] Name: Gloria Longoria Age: 82 yrs Sex: Female : 1940 Arrival Date: 11/04/2023 Time: 13:41 Bed 4 Private MD: ED Physician Zbigniew West HPI: 11/03 14:20 This 82 yrs old Black Female presents to ER via Wheelchair with complaints of Low Bp. cp 14:20 general weakness, low blood pressure over past 3-4 days. cp Historical: - Allergies: 14:11 Sulfa (Sulfonamide Antibiotics); tl4 - PMHx: 14:11 ADD/ADHD; BLIND; CHF; colon cancer; COPD; Diabetes - IDDM; Hypertension; Myocardial tl4 infarction; Pneumonia; - Immunization history:: Adult Immunizations unknown. - Infectious Disease History:: Denies. - Social history:: Smoking status: Patient denies any tobacco usage or history of. ROS: 14:25 Constitutional: Positive for poor PO intake, Negative for body aches, chills, fever, cp 14:25 Eyes: Negative for injury, pain, redness, and discharge, cp 14:25 ENT: Negative for drainage from ear(s), ear pain, sore throat, difficulty swallowing, difficulty handling secretions, 14:25 Cardiovascular: Negative for chest pain, 14:25 Respiratory: Positive for cough, Negative for wheezing, 14:25 Abdomen/GI: Negative for abdominal pain, vomiting, diarrhea, constipation, 14:25 Neuro: Positive for weakness, Negative for altered mental status, syncope, 14:25 All other systems are negative, Exam: 14:30 Constitutional: The patient appears in no acute distress, alert, awake, cp non-diaphoretic, non-toxic, well developed, well nourished, obese, 14:30 Head/Face: Normocephalic, atraumatic. cp 14:30 Eyes: Periorbital structures: appear normal, Lids and lashes: appear normal, bilaterally, 14:30 ENT: External ear(s): are unremarkable, Nose: is normal, Mouth: Lips: dry, Oral mucosa: pink and intact, moist, Posterior pharynx: Airway: no evidence of obstruction, patent, 14:30 Chest/axilla: Inspection: normal, 14:30 Cardiovascular: Rate: normal, Rhythm: irregular, JVD: is not appreciated, 14:30 Respiratory: the patient does not display signs of respiratory distress, Respirations: normal, no use of accessory muscles, no retractions, labored breathing, is not present, Breath sounds: are clear throughout, no decreased breath sounds, no stridor, no wheezing, 14:30 Abdomen/GI: Inspection: abdomen appears normal, Palpation: abdomen is soft and non-tender, in all quadrants, 14:30 Neuro: Orientation: to person, place \T\ time. Mentation: able to follow commands, Motor: moves all fours, no focal deficits, Sensation: is normal, 15:43 ECG was reviewed by the Attending Physician. cp Vital Signs: 14:08 BP 106 / 60; Pulse 78; Resp 28; Temp 98.5(O); Pulse Ox 100% on R/A; Weight 87.54 kg tl4 (M); Pain 8/10; 15:45 BP 120 / 71; Pulse 72; Resp 18 S; Pulse Ox 96% on R/A; aa5 16:30 BP 109 / 59; Pulse 73; Resp 16 S; Pulse Ox 96% on R/A; aa5 18:14 BP 107 / 56; Pulse 76; Resp 19; Pulse Ox 99% on R/A; iw 19:00 BP 116 / 73; Pulse 73; Resp 20; Pulse Ox 97% on R/A; al5 19:30 BP 106 / 61; Pulse 67; Resp 19; Pulse Ox 97% on R/A; al5 20:00 BP 110 / 66; Pulse 74; Resp 18; Pulse Ox 94% on R/A; al5 21:00 BP 127 / 80; Pulse 68; Resp 19; Pulse Ox 100% on R/A; al5 22:00 BP 119 / 74; Pulse 74; Resp 19; Pulse Ox 100% on R/A; al5 14:08 Pain Scale: Adult tl4 MDM: 14:04 Patient medically screened. 11/03 14:14 Order name: Basic Metabolic Panel; Complete Time: 16:35 cp 11/03 16:36 Interpretation: Normal except: NA 135; GLUC 108; BUN 51; CRE 2.52; GFR 19. cp 11/03 14:14 Order name: CBC with Diff; Complete Time: 16:05 cp 11/03 16:05 Interpretation: Normal except: RBC 2.98; HGB 9.1; HCT 27.8. cp 08/16 14:14 Order name: LFT's; Complete Time: 16:35 cp 08/16 14:14 Order name: Magnesium; Complete Time: 16:35 cp 08/16 14:14 Order name: NT PRO-BNP; Complete Time: 16:35 cp 08/16 14:14 Order name: PT-INR; Complete Time: 16:05 cp 08/16 14:14 Order name: Troponin HS; Complete Time: 16:35 cp 08/16 14:14 Order name: Urinalysis w/ reflexes cp 08/16 14:14 Order name: SARS RAPID; Complete Time: 16:35 cp 08/16 14:14 Order name: Influenza Screen (a \T\ B); Complete Time: 16:35 cp 08/16 14:14 Order name: Lactate w/ 2H reflex if indic.; Complete Time: 16:05 cp 08/16 14:14 Order name: Blood Culture Adult (2) cp 08/16 17:23 Order name: Troponin HS; Complete Time: 21:21 cp 08/16 14:14 Order name: XRAY Chest (1 view); Complete Time: 16:39 cp 08/16 16:39 Interpretation: Report review. cp 16 16:10 Order name: CT Head Brain wo Cont; Complete Time: 18:00 cp 08/16 16:40 Order name: CT Chest Wo Con; Complete Time: 18:00 cp 08/16 14:14 Order name: Cardiac monitoring; Complete Time: 15:31 cp 08/16 14:14 Order name: EKG - Nurse/Tech; Complete Time: 15:49 cp 0816 14:14 Order name: IV Saline Lock; Complete Time: 15:29 cp 08/16 14:14 Order name: Labs collected and sent; Complete Time: 15:29 cp 08/16 14:14 Order name: O2 Per Protocol; Complete Time: 15:29 cp 08/16 14:14 Order name: O2 Sat Monitoring; Complete Time: 15:29 cp 08/16 18:00 Order name: Vital Signs: please update to include blood pressure; Complete Time: 18:17 cp 08/16 18:00 Order name: Tori; Complete Time: 21:39 cp EC:43 Rate is 73 beats/min. Rhythm is irregular. QRS interval is normal. QT interval is cp normal. T waves are Inverted in leads I, aVL. Interpreted by me. Reviewed by me. Administered Medications: 16:39 CANCELLED (Physician Discretion): [id number] mg IVP once; give over 2 minutes cp 18:14 Drug: Furosemide IVP 20 mg IVP once; give over 2 minutes Route: IVP; Site: right iw antecubital; 18:30 Follow up: Response: No adverse reaction aa5 19:45 Drug: Aspirin PO Chewable Tablet 324 mg PO once; 81 mg tablets x 4 Route: PO; tm6 20:53 Follow up: Response: No adverse reaction tm6 19:53 Drug: Heparin (LA-Bolus No thrombolytic) - HEParin IVP 60 units/kg IVP once; Max 5000 tm6 units {Co-Signature: elizabeth (Suzanne Lemons RN).} Route: IVP; Site: right antecubital; 20:53 Follow up: Response: No adverse reaction tm6 19:54 Drug: Heparin (LA Drip) 12 units/kg/hr - ([place] [address] units, D5W IV 500 ml) IV at tm6 calculated rate Per protocol; Max initial rate 1000 units/hr {Co-Signature: elizabeth (Suzanne Lemons RN).} Route: IV; Rate: calculated rate; Site: right antecubital; 22:04 Follow up: IV Status: Infusion continued upon admission al5 21:56 Drug: NS 0.9% IV 1000 ml IV at 75 ml/hr continuous Route: IV; Rate: 75 ml/hr; Site: al5 left antecubital; 22:04 Follow up: IV Status: Infusion continued upon admission al5 Disposition Summary: 11/04/23 19:17 Hospitalization Ordered Notes: Hospitalization Status: Inpatient Admission cp Provider: Rosalio Greene cp Location: Telemetry/MedSurg (Inpatient) cp Condition: Stable cp Problem: new cp Symptoms: have improved cp Bed/Room Type: Standard cp Room Assignment: 230(11/04/23 21:21) cg Diagnosis - Acute kidney failure, unspecified cp Forms: - Medication Reconciliation Form cp - SBAR form cp - Leadership Thank You Letter cp Addendum: 11/06/2023 18:59 Co-signature as Attending Physician, Zbigniew West MD I reviewed the patient's care r n provided by the Advanced Practice Provider and agree with the diagnosis and treatment plan. Signatures: Dispatcher [employer] EDMS Jeniffer Phipps, RN TEAGAN iw Zbigniew West MD MD rn Page, Corey, PA PA cp Vandana Tobin, RN RN cg Carole Urbina RN RN tm6 Robert Joshua RN RN tl4 Suzanne Lemons RN RN al5 Jessica Roche RN aa5 Suzanne Lemons RN al5 Corrections: (The following items were deleted from the chart) 11/03 14:15 14:15 Chest Single View+RAD.RAD.BRZ ordered. EDMS EDMS 16:39 16:39 Furosemide IVP 20 mg IVP once; give over 2 minutes ordered. cp cp 16:40 16:40 Thorax Wo Con+CT.RAD.BRZ ordered. EDMS EDMS 17:23 17:23 Troponin High Sensitivity+C.LAB.BRZ ordered. EDMS EDMS 21:21 19:17 cp cg
[2023-11-04] MEDS ORDERED: ASPIRIN 81 MG CHEWABLE TABLET ONE (19:21)
[2023-11-04] MEDS ORDERED: HEPARIN 5000 UNIT/ML 1 ML VIAL ONE (19:22)
[2023-11-04] MEDS ORDERED: HEPARIN/D5W 25,000 UNIT/500 ML BAG IV ONE (19:22)
[2023-11-04] MEDS ORDERED: ONDANSETRON 4 MG/2 ML VIAL IV PRN (20:18)
[2023-11-04] MEDS ORDERED: GLUCAGON 1 MG/VIAL IM PRN (20:18)
[2023-11-04] MEDS ORDERED: ACETAMINOPHEN 500 MG TAB PO PRN (20:18)
[2023-11-04] MEDS ORDERED: ALBUTEROL 2.5 MG/3 ML NEB SOL NEB PRN (20:18)
[2023-11-04] MEDS ORDERED: D50W 25 GM/50 ML SYRINGE IV PRN (20:18)
[2023-11-04] MEDS ORDERED: D10W 125 ML IV PRN (20:36)
--- NOTE | 2023-11-04 20:45 | P.HP ---
Certification for Inpatient Patient admitted to: Inpatient With expected LOS: >2 Midnights Practitioner: I am a practitioner with admitting privileges, knowledge of patient current condition, hospital course, and medical plan of care. Services: Services provided to patient in accordance with Admission requirements found in Title 42 Section 412.3 of the Code of Federal Regulations Patient History Date of Service: 11/04/23 Reason for admission: Generalized weakness History of Present Illness: 82-year-old woman with a history of coronary artery disease, congestive heart failure on Lasix therapy, diabetes mellitus type 2 and COPD who was brought to the emergency department due to generalized weakness, poor oral intake and lethargy. Daughter by her bedside reported patient has had poor oral intake, has been sleeping most of the day. Her recorded blood pressure was low with systolic in the 80s today which prompted the ED visit. Patient was complaining of shortness of breath treatment. She denied chest pain. Workup in the emergency department showed elevated troponin. Chest x-ray did not show any acute infiltrate or vascular congestion. It reported basilar atelectasis. Initial troponin elevated, EKG demonstrated atrial fibrillation, no ischemic changes. Daughter reports patient had a good bowel movement yesterday. Daughter also believes patient's urine output has decreased since yesterday. Blood work showed elevated creatinine indicating LONG. Patient is hospitalized for further management. Allergies Sulfa (Sulfonamide Antibiotics) Allergy (Intermediate, Verified 04/19/22 12:46) Rash Home Medications: Aspirin [Aspirin EC 81 MG] 81 mg PO DAILY 02/07/22 Carvedilol [Coreg] 25 mg PO BID 02/07/22 Magnesium Oxide [Mag 0X*] 400 mg PO DAILY 02/07/22 Rosuvastatin Calcium 40 mg PO BEDTIME 02/07/22 Trazodone [Desyrel*] 50 mg PO BEDTIME 02/07/22 Clopidogrel Bisulfate [Plavix] 75 mg PO DAILY 03/04/22 Folic Acid 1 mg PO DAILY #30 tab 03/05/22 Cholecalciferol (Vitamin D3) [Vitamin D3] 1 tab PO DAILY 03/22/22 Cyanocobalamin/Cobamamide [Vitamin B-12 5,000 Mcg Tab Sl] 1 tab PO DAILY 03/22/22 Ferrous Sulfate [Ferrous Sulfate*] 325 mg PO DAILY 03/22/22 Sertraline [Zoloft*] 100 mg PO DAILY 03/22/22 Spironolactone [Aldactone*] 25 mg PO DAILY 03/22/22 Furosemide 40 mg PO DAILY #30 03/24/22 Fluticasone/Umeclidin/Vilanter [Trelegy Ellipta 100-62.5-25] 2 puff PO BID 04/19/22 Pregabalin 75 mg PO DAILY 30 Days #30 cap 04/22/23 Losartan Potassium [Cozaar] 25 mg PO BEDTIME 06/30/23 Metformin HCl [Glucophage] 500 mg PO BIDWM 06/30/23 Semaglutide [Ozempic] 1 mg SQ 06/30/23 - Past Medical/Surgical History Diabetic: Yes -: Glaucoma -: CHF, diastolic dysfunction -: HTN -: GERD -: DM II with PolyNeuropathy -: CKD III (Dr. Alvarez) -: CAD -: Fatty liver with Morbid Obesity -: CAD -: COPD -: History of Colon CA -: Cholecystectomy -: Colon resection -: Appendectomy -: Hysterectomy -: Right Rotator Cuff Repair -: Colectomy Psychosocial/ Personal History: She lives at home. Her daughter helps her at home. - Family History Mother -: Cancer Notes: colon Brother -: Hypertension Sister -: Heart disease, Hypertension, Lung disease, Cancer - Social History Alcohol use: No CD- Drugs: No Caffeine use: Yes Review of Systems Other: Patient denied any fever or chills. She denied any diarrhea. She denied any nausea or vomiting. She denied any fever. She denied any dysuria or increased urinary frequency. Except as documented, all other systems reviewed and negative. Physical Examination - Physical Exam General: In no apparent distress, Other (Awake and interactive) HEENT: Normocephalic, Sclerae nonicteric Neck: Supple, JVD not distended Respiratory: Clear to auscultation bilaterally, Normal air movement Cardiovascular: No edema, Normal S1 S2, Irregular heart rate/rhythm Capillary refill: <2 Seconds Gastrointestinal: Normal bowel sounds, Soft and benign, Non-distended, No tenderness Musculoskeletal: No swelling, No tenderness Integumentary: No rashes, No cyanosis Neurological: Normal speech, Normal strength at 5/5 x4 extr, Cranial nerves 3-12 intact Lymphatics: No axilla or inguinal lymphadenopathy - Studies Laboratory Data (last 24 hrs) 11/04/23 11/04/23 11/04/23 15:10 15:10 15:10 WBC 7.90 Hgb 9.1 L Hct 27.8 L Plt Count 212 PT 13.0 H INR 1.17 Sodium 135 L Potassium 4.9 BUN 51 H Creatinine 2.52 H Glucose 108 H Magnesium 2.6 H Total Bilirubin 0.3 AST 15 ALT 21 Alkaline Phosphatase 108 Microbiology Data (last 24 hrs): 11/04/23 15:34 Nasopharnyx Influenza Type A Antigen Screen - Final 11/04/23 15:34 Nasopharnyx Influenza Type B Antigen Screen - Final Assessment and Plan - Problems (Diagnosis) (1) Generalized weakness Current Visit: Yes Status: Acute (2) Acute kidney injury Current Visit: Yes Status: Acute (3) NSTEMI (non-ST elevated myocardial infarction) Current Visit: Yes Status: Acute (4) Chronic diastolic heart failure Current Visit: Yes Status: Acute (5) Diabetes mellitus Current Visit: No Status: Chronic Qualifiers: Diabetes mellitus type: type 2 Diabetes mellitus penitentiary insulin use: with penitentiary use Diabetes mellitus complication status: with hyperglycemia Qualified Code(s): E11.65 - Type 2 diabetes mellitus with hyperglycemia; 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 Associated borderline low BP Admit patient to the medical floor Briefly hydrate with IV NS. Cautious IV fluid with close monitoring given history of CHF PT consult. Obtain UA to screen for UTI. Hold antihypertensives. LONG/hyponatremia Likely prerenal secondary to dehydration. Patient is on maintenance Lasix therapy at home. Hold Lasix Briefly hydrated with IV NS Monitor renal function Nephrology consult. NSTEMI History of coronary artery disease. Cardiology consult Start heparin drip per Dr. Higuera Continue to trend troponin. Aspirin. Statin. Coreg with holding parameters. DM type II Insulin sliding scale for glucose management Hold metformin. Chronic anemia Monitor H&H and transfuse for hemoglobin less than 8. DVT prophylaxis: On heparin drip CODE STATUS: full code - Advance Directives Does patient have a Living Will: No Does patient have a Durable POA for Healthcare: No
[2023-11-04] MEDS: INSULIN REGULAR (HUMAN) 100 UNIT/ML SQ SCH (21:00)
[2023-11-04] MEDS: NA CHLORIDE 0.9% 1,000 ML IV SCH (21:00)
[2023-11-04] MEDS ORDERED: NA CHLORIDE 0.9% 1,000 ML ONE (21:51)
[2023-11-04 21:59] LABS: Specific Gravity 1.007 (1.005-1.030); Sqamous Epithelial <5 /HPF (None Seen); Urine Bacteria <20 /HPF (<20); Urine Bilirubin NEGATIVE (Negative); Urine Blood Negative (Negative); Urine Clarity Turbid (Clear); Urine Color Colorless (Yellow); Urine Crystals Unidentified Few /HPF (None Seen); Urine Culture Reflex Order NOT NEEDED; Urine Glucose NEGATIVE (Negative); Urine Ketones NEGATIVE (Negative); Urine Microscopic Reflex YN ORDER UMIC; Urine Mucus Slight /HPF (None Seen); Urine Nitrite NEGATIVE (Negative); Urine Protein NEGATIVE (Negative); Urine RBC <5 /HPF (None Seen); Urine Urobilinogen Normal (Normal); Urine WBC <5 /HPF (<5); Urine Yeast (Budding) Trace /HPF (None Seen)
[2023-11-04 23:23] VITALS: BMI 43.9
[2023-11-05] MEDS: PANTOPRAZOLE 40MG TABLET PO SCH (08:21)
[2023-11-05 09:41] LABS: Absolute Eosinophils 0.2 K/uL (0-0.5); Absolute Lymphocytes (CBC) 1.1 K/uL (0.7-4.9); Absolute Monocytes 0.9 K/uL (0.1-1.3); Absolute Neutrophil 6.3 K/uL (1.8-8.0); Basophils % 0.2 % (0-1.3); Eosinophils % 2.2 % (0-4.4); Hematocrit 26.3 % (36.0-45.0); Hemoglobin 8.6 g/dL (12.0-15.0); Lymphocytes % 13.2 % (15.3-44.8); MCH 30.5 pg (27.0-35.0); MCHC 32.6 g/dL (32.0-36.0); MCV 93.6 fL (80-100); MPV 8.7 fL (7.6-11.3); Monocytes % 10.7 % (3.3-12.3); Neutrophils % 73.7 % (41.7-73.7); Nucleated Red Blood Cells % 0.1 % (0-0); Platelets 219 thou/uL (152-406); RBC Red Blood Cell Count 2.81 M/uL (3.86-4.86); Red Cell Distribution Width 14.6 % (12.1-15.2)
[2023-11-05 10:05] LABS: Albumin 3.1 g/dL (3.4-5.0); Albumin/Globulin Ratio 0.8 (1.1-1.8); Anion Gap 11.5 mEq/L (5.0-15.0); Bilirubin Total 0.3 mg/dL (0.2-1.0); Globulin 3.9 g/dL (2.3-3.5); Magnesium 2.2 mg/dL (1.6-2.4); Phosphorus 4.1 mg/dL (2.5-4.9); Potassium 5.5 mEq/L (3.5-5.1); Thyroid Stimulating Hormone 1.43 uIU/mL (0.358-3.740)
--- NOTE | 2023-11-05 11:39 | P.CNS ---
Date of Consult: 11/05/23 Chief Complaint: Generalized weakness History of Present Illness: Patient with PMH of CAD s/p multiple PCIs, morbid obesity, Diastolic heart failure presented with generalized fatigue, SOB and mild bilateral lower extremities edema, she also report cough with phlegm, not sure about color, denies chest pain, no palpitations, no syncope. Allergies Sulfa (Sulfonamide Antibiotics) Allergy (Intermediate, Verified 04/19/22 12:46) Rash Home medications list reviewed: Yes Home Medications: Aspirin [Aspirin EC 81 MG] 81 mg PO DAILY 02/07/22 Carvedilol [Coreg] 25 mg PO BID 02/07/22 Magnesium Oxide [Mag 0X*] 400 mg PO DAILY 02/07/22 Rosuvastatin Calcium 40 mg PO BEDTIME 02/07/22 Clopidogrel Bisulfate [Plavix] 75 mg PO BEDTIME 03/04/22 Folic Acid 1 mg PO DAILY #30 tab 03/05/22 Cholecalciferol (Vitamin D3) [Vitamin D3] 1 tab PO DAILY 03/22/22 Cyanocobalamin/Cobamamide [Vitamin B-12 5,000 Mcg Tab Sl] 1 tab PO DAILY 03/22/22 Ferrous Sulfate [Ferrous Sulfate*] 325 mg PO DAILY 03/22/22 Sertraline [Zoloft*] 100 mg PO DAILY 03/22/22 Spironolactone [Aldactone*] 25 mg PO DAILY 03/22/22 Furosemide 40 mg PO DAILY #30 03/24/22 Fluticasone/Umeclidin/Vilanter [Trelegy Ellipta 100-62.5-25] 2 puff PO PRN 04/19/22 Pregabalin 75 mg PO DAILY 30 Days #30 cap 04/22/23 Losartan Potassium [Cozaar] 25 mg PO BEDTIME 06/30/23 Metformin HCl [Glucophage] 500 mg PO BIDWM 06/30/23 Semaglutide [Ozempic] 1 mg SQ EVERY 7TH DAY 06/30/23 Amlodipine Besylate [Norvasc] 5 mg PO DAILY 11/05/23 Insulin Regular, Human [Humulin R U-500 Kwikpen] 40 units SQ ACHS 11/05/23 Pantoprazole [Protonix Tab] 40 mg PO DAILY 11/05/23 - Past Medical/Surgical History Diabetic: Yes -: Glaucoma -: CHF, diastolic dysfunction -: HTN -: GERD -: DM II with PolyNeuropathy -: CKD III (Dr. Alvarez) -: CAD -: Fatty liver with Morbid Obesity -: CAD -: COPD -: History of Colon CA -: Cholecystectomy -: Colon resection -: Appendectomy -: Hysterectomy -: Right Rotator Cuff Repair -: Colectomy Psychosocial/ Personal History: She lives at home. Her daughter helps her at home. - Family History Mother Medical History: Cancer Notes: colon Brother Medical History: Hypertension Sister Medical History: Heart disease, Hypertension, Lung disease, Cancer - Social History Smoking Status: Never smoker Alcohol use: No CD- Drugs: No Caffeine use: No Place of Residence: Home Review of Systems 10-point ROS is otherwise unremarkable Physical Examination Temp Pulse Resp BP Pulse Ox 99.3 F 83 18 106/54 L 95 11/05/23 08:00 11/05/23 08:00 11/05/23 08:00 11/05/23 08:00 11/05/23 08:00 General: Alert, In no apparent distress HEENT: Atraumatic, PERRLA, Mucous membr. moist/pink, EOMI, Sclerae nonicteric Neck: Supple, 2+ carotid pulse no bruit, No LAD, Without JVD or thyroid abnormality Respiratory: Clear to auscultation bilaterally, Normal air movement Cardiovascular: Regular rate/rhythm, Normal S1 S2, Edema Gastrointestinal: Normal bowel sounds, No tenderness Musculoskeletal: No tenderness Integumentary: No rashes Neurological: Normal gait, Normal speech, Normal tone, Normal affect Lymphatics: No axilla or inguinal lymphadenopathy Laboratory Data (last 24 hrs) 11/04/23 11/04/23 11/04/23 15:10 15:10 15:10 WBC 7.90 Hgb 9.1 L Hct 27.8 L Plt Count 212 PT 13.0 H INR 1.17 Sodium 135 L Potassium 4.9 BUN 51 H Creatinine 2.52 H Glucose 108 H Magnesium 2.6 H Total Bilirubin 0.3 AST 15 ALT 21 Alkaline Phosphatase 108 - Problems (1) Chronic diastolic heart failure Current Visit: Yes Status: Acute Plan: Hard to assess patient volume status due to obesity, her BNP is elevated but also having LONG that is responding to hydration, advise to continue gentle hydration, repeat CXR and labs in am. might need to start IV lasix (2) NSTEMI (non-ST elevated myocardial infarction) Current Visit: Yes Status: Acute Plan: most likely type 2 [place] from LONG continue to trend until down trending continue heparin drip for 48 hours. (3) HTN (hypertension) Current Visit: No Status: Chronic Plan: medications are on hold due to soft BP. continue to monitor. Qualifiers: Hypertension type: primary hypertension Qualified Code(s): I10 - Essential (primary) hypertension
--- NOTE | 2023-11-05 12:42 | P.PN ---
Subjective Date of Service: 11/05/23 Chief Complaint: Generalized weakness Pt is resting comfortably in bed. Pt is getting heparin drip. Consulted Cardiology. No other complaints. Review of Systems General: Unremarkable Eyes: Unremarkable ENT: Unremarkable Respiratory: Unremarkable Cardiovascular: Chest Pain Gastrointestinal: Unremarkable Genitourinary: Unremarkable Musculoskeletal: Unremarkable Neurological: Unremarkable Lymphatics: Unremarkable Physical Examination - Vital Signs Temperature: 99.3 F Blood Pressure: 106/54 Pulse: 83 Respirations: 18 Pulse Ox (%): 95 - Physical Exam General: Alert, In no apparent distress, Oriented x3 HEENT: Atraumatic, Normocephalic, PERRLA, Other (blindness) Neck: Supple, 2+ carotid pulse no bruit, JVD not distended Respiratory: Clear to auscultation bilaterally, Normal air movement Cardiovascular: No edema, Normal pulses, Regular rate/rhythm, Normal S1 S2 Capillary refill: <2 Seconds Gastrointestinal: Normal bowel sounds, Soft and benign, Non-distended Musculoskeletal: No clubbing, No swelling, No contractures Integumentary: No rashes, No breakdown, No significant lesion, No tenderness/swelling Neurological: Normal gait, Normal speech, Normal strength at 5/5 x4 extr, Normal tone, Sensation intact, Cranial nerves 3-12 intact Lymphatics: No axilla or inguinal lymphadenopathy - Studies Laboratory Data (last 24 hrs) 11/04/23 11/04/23 11/04/23 15:10 15:10 15:10 WBC 7.90 Hgb 9.1 L Hct 27.8 L Plt Count 212 PT 13.0 H INR 1.17 Sodium 135 L Potassium 4.9 BUN 51 H Creatinine 2.52 H Glucose 108 H Magnesium 2.6 H Total Bilirubin 0.3 AST 15 ALT 21 Alkaline Phosphatase 108 Microbiology Data (last 24 hrs): 11/04/23 15:34 Nasopharnyx Influenza Type A Antigen Screen - Final 11/04/23 15:34 Nasopharnyx Influenza Type B Antigen Screen - Final Assessment And Plan - Plan Generalized weakness: Likely due to dehydration that caused LONG. Continue gentle hydration. Will consult PT. LONG: Cr is 2.52. Continue IVF, avoid nephrotoxins and monitor renal function. Hyponatremia: Likely due to hypovolemia. Will continue gentle hydration and trend Na level. Will consult Nephrology. NSTEMI / History of coronary artery disease: troponin is 829 .9 -> 655.7. Will continue heparin drip, aspirin, statin and coreg. Consulted Cardiology. DM type II: Continue accuchek, SSI and ADA diet. Hold metformin. Chronic anemia: Hgb is 9.1. Monitor H/H. Transfuse if hemoglobin is less than 8. DVT ppx: On heparin drip CODE STATUS: full code
[2023-11-05] MEDS: NA CHLORIDE 0.9% 1,000 ML IV SCH (13:54)
--- NOTE | 2023-11-05 15:06 | CON ---
Date of Consultation: 11/05/2023 Reason For Consult: Acute on chronic renal insufficiency. History Of Present Illness: Ms. Longoria is an 82-year-old female with past medical history significa nt for history of chronic congestive heart failure, on Lasix, history of coronary artery disease, chr onic kidney disease stage 4, type 2 diabetes, brought into the emergency room because of weakness, po or appetite and decreased p.o. intake for several days prior to admission. She was evaluated by Dr. Jones and blood pressure medications were lowered. Blood pressure continued to be low, and hence, she was brought into the emergency room. She was found to have acute renal failure associated with s ome NSTEMI as well as possibly a UTI and hence had been admitted to the hospital for further evaluati on. She is doing much better according to her daughter and she is improving. Past Medical History: Significant for history of type 2 diabetes with CKD, hypertension, chronic kid karis disease, congestive heart failure, coronary artery disease, history of cholecystectomy, hysterect hansel, appendectomy, and right shoulder surgery. Family History: Noncontributory. Review of Systems: As per history of present illness. Complaining of lethargy and weakness associated with decreased p. o. intake and failure to thrive. Physical Examination: Vital Signs: At this time are showing temperature of 99.3, pulse rate of 83, respiratory rate of 18, and blood pressure 106/54. General: She appears in no acute distress. HEENT: Atraumatic head. Lungs: Clear to auscultation. Abdomen: Soft and nontender. Heart: Auscultation of the heart reveals regular rate and rhythm. Extremities: No evidence of edema. Laboratory Data: Creatinine of 2.21, BUN of 55, potassium was noted to be 5.5, and sodium of 137. T roponin was noted to be elevated to 829, improving to 531 at this time. Albumin was 3.1. TSH was no rmal. Hemoglobin is 8.6, hematocrit 26.3, and platelet count of 219. Urinalysis showed some leukocy te esterase and trace amount of yeast. Urine cultures are still pending at this time. Current Medications: The patient is not getting any IV fluids. She is getting heparin infusion. Impression: 1.Acute on chronic renal insufficiency secondary to dehydration and acute tubular necrosis from dehy dration. Continue hydration and monitor. I will order for some maintenance IV fluids. 2.Hyponatremia secondary to hypovolemia. Continue hydration and monitor. 3.NSTEMI. The patient is being followed by Cardiology. Currently on heparin drip, statin. Avoid b eta josy secondary to hypotension. 4.Type 2 diabetes. Continue insulin sliding scale. 5.Anemia secondary to chronic disease. Continue to monitor and transfuse p.r.n. for less than 7. Plan: Overall the patient's renal function is stable. We will go ahead and order maintenance IV flu ids at this time to improve her blood pressures. Continue to monitor closely and will follow up. VV/MODL Voice ID: [id number] Report ID: [id number]
[2023-11-05] MEDS: HEPARIN/D5W 25,000 UNIT/500 ML BAG IV PRN (22:21)
[2023-11-06 04:39] LABS: MPV 8.6 fL (7.6-11.3); Platelets 187 thou/uL (152-406)
--- NOTE | 2023-11-06 08:44 | P.PN ---
Subjective Date of Service: 11/06/23 Chief Complaint: Generalized weakness Pt is resting comfortably in bed. Pt is getting heparin drip. Troponin is trending down ( 533 <- 655). Consulted Cardiology. No other complaints. Review of Systems General: Unremarkable Eyes: Unremarkable ENT: Unremarkable Respiratory: Unremarkable Cardiovascular: Unremarkable Gastrointestinal: Unremarkable Genitourinary: Unremarkable Musculoskeletal: Unremarkable Integumentary: Unremarkable Neurological: Unremarkable Lymphatics: Unremarkable Physical Examination - Vital Signs Temperature: 96.9 F Blood Pressure: 110/53 Pulse: 83 Respirations: 17 Pulse Ox (%): 98 - Physical Exam General: Alert, In no apparent distress, Oriented x3, Oriented x2 HEENT: Atraumatic, Normocephalic, PERRLA Neck: Supple, 2+ carotid pulse no bruit, JVD not distended Respiratory: Clear to auscultation bilaterally, Normal air movement Cardiovascular: No edema, Normal pulses, Regular rate/rhythm, Normal S1 S2 Capillary refill: <2 Seconds Gastrointestinal: Normal bowel sounds, Soft and benign, Non-distended Musculoskeletal: No clubbing, No swelling, No contractures Integumentary: No rashes, No breakdown, No significant lesion Neurological: Normal gait, Normal speech, Normal strength at 5/5 x4 extr Lymphatics: No axilla or inguinal lymphadenopathy Assessment And Plan - Plan Generalized weakness: Likely due to dehydration that caused LONG. Continue gentle hydration. Will consult PT. LONG: Cr is 2.0<- 2.52. Continue IVF, avoid nephrotoxins and monitor renal function. Hyponatremia: Likely due to hypovolemia. Will continue gentle hydration and trend Na level. Will consult Nephrology. NSTEMI / History of coronary artery disease: Likely due to LONG. troponin is 829 .9 -> 655.7-> 531. Will continue heparin drip for 48hrs, aspirin, statin and coreg. Consulted Cardiology. DM type II: Continue accuchek, SSI and ADA diet. Hold metformin. Chronic anemia: Hgb is 9.1. Monitor H/H. Transfuse if hemoglobin is less than 8. DVT ppx: On heparin drip Code: full code
--- NOTE | 2023-11-06 11:43 | P.PN ---
Subjective Date of Service: 11/06/23 Chief Complaint: Generalized weakness Subjective: No new changes, No C/O voiced, Tolerating diet, Ambulating, Improving Review of Systems 10-point ROS is otherwise unremarkable Physical Examination - Vital Signs Temperature: 96.9 F Blood Pressure: 110/53 Pulse: 83 Respirations: 17 Pulse Ox (%): 98 - Physical Exam General: Alert, In no apparent distress HEENT: Atraumatic, PERRLA, EOMI Neck: Supple, JVD not distended Respiratory: Clear to auscultation bilaterally, Normal air movement Cardiovascular: Regular rate/rhythm, Normal S1 S2 Gastrointestinal: Normal bowel sounds, No tenderness Musculoskeletal: No tenderness Integumentary: No rashes Neurological: Normal speech, Normal tone, Normal affect Lymphatics: No axilla or inguinal lymphadenopathy - Studies Medications List Reviewed: Yes Assessment And Plan - Current Problems (Diagnosis) (1) Chronic diastolic heart failure Current Visit: Yes Status: Acute Plan: Hard to assess patient volume status due to obesity, her BNP is elevated but also having LONG that is responding to hydration, advise to continue gentle hydration, repeat CXR and labs in am. might need to start her back on her home dose Lasix of 40 mg daily if ok with nephrology. continue to hold aldactone and losartan (2) NSTEMI (non-ST elevated myocardial infarction) Current Visit: Yes Status: Acute Plan: most likely type 2 TX from LONG Troponin down trending continue heparin drip for 48 hours. continue ASA and Plavix. (3) HTN (hypertension) Current Visit: No Status: Chronic Plan: medications are on hold due to soft BP. continue to monitor. Qualifiers: Hypertension type: primary hypertension Qualified Code(s): I10 - Essential (primary) hypertension
[2023-11-06] MEDS: HYDROCODONE/APAP 7.5/325 MG TAB PO PRN (12:25)
[2023-11-06] MEDS: ROSUVASTATIN 10 MG TAB PO SCH (20:06)
[2023-11-06] MEDS: CLOPIDOGREL 75 MG TABLET PO SCH (20:06)
[2023-11-06 20:48] LABS: Absolute Eosinophils 0.1 K/uL (0-0.5); Absolute Lymphocytes (CBC) 1.3 K/uL (0.7-4.9); Absolute Monocytes 1.1 K/uL (0.1-1.3); Absolute Neutrophil 5.4 K/uL (1.8-8.0); Basophils % 0.3 % (0-1.3); Eosinophils % 1.8 % (0-4.4); Hematocrit 24.5 % (36.0-45.0); Lymphocytes % 16.4 % (15.3-44.8); MCH 30.1 pg (27.0-35.0); MCHC 32.5 g/dL (32.0-36.0); MCV 92.6 fL (80-100); MPV 8.4 fL (7.6-11.3); Neutrophils % 67.5 % (41.7-73.7); Nucleated Red Blood Cells % 0.1 % (0-0); Platelets 181 thou/uL (152-406); RBC Red Blood Cell Count 2.64 M/uL (3.86-4.86); Red Cell Distribution Width 14.8 % (12.1-15.2)
[2023-11-06] MEDS ORDERED: HOME MED 1 EA UNK (Rosuvastatin Calcium [Rosuvastatin Calcium] 40 MG Tablet) PO SCH (21:00)
[2023-11-07 06:51] LABS: MPV 8.7 fL (7.6-11.3); Platelets 176 thou/uL (152-406)
[2023-11-07] MEDS: SERTRALINE HCL 100 MG TAB PO SCH (08:41)
[2023-11-07] MEDS: FERROUS SULFATE 325 MG TAB PO SCH (08:41)
[2023-11-07] MEDS ORDERED: PANTOPRAZOLE 40MG TABLET PO SCH (09:00)
[2023-11-07] MEDS: HEPARIN 5000 UNIT/ML 1 ML VIAL IV SCH (11:11)
--- NOTE | 2023-11-07 11:51 | P.PN ---
Subjective Date of Service: 11/07/23 Chief Complaint: Generalized weakness Pt is resting comfortably in bed. Pt is using 2L BNC. Waiting for am lab result. Will discontinue heparin drip. Troponin is trending down (533 <- 655). Will resume lasix 40mg po daily and hold aldactone and losartan. Consulted Cardiology. No other complaints. Review of Systems General: Unremarkable Eyes: Unremarkable ENT: Unremarkable Respiratory: Unremarkable Cardiovascular: Unremarkable Gastrointestinal: Unremarkable Genitourinary: Unremarkable Musculoskeletal: Unremarkable Integumentary: Unremarkable Neurological: Unremarkable Lymphatics: Unremarkable Physical Examination - Vital Signs Temperature: 98.2 F Blood Pressure: 115/56 Pulse: 82 Respirations: 18 Pulse Ox (%): 99 - Physical Exam General: Alert, In no apparent distress, Oriented x3, Obese HEENT: Atraumatic, Normocephalic, PERRLA Neck: Supple, 2+ carotid pulse no bruit, JVD not distended Respiratory: Clear to auscultation bilaterally, Normal air movement Cardiovascular: No edema, Normal pulses, Regular rate/rhythm, Normal S1 S2 Capillary refill: <2 Seconds Gastrointestinal: Normal bowel sounds, Soft and benign, Non-distended Musculoskeletal: No clubbing, No swelling, No contractures Integumentary: No rashes, No breakdown, No significant lesion, No tenderness/swelling Neurological: Normal gait, Normal speech, Normal strength at 5/5 x4 extr, Normal tone Lymphatics: No axilla or inguinal lymphadenopathy - Studies Medications List Reviewed: Yes Assessment And Plan - Plan Generalized weakness: Likely due to dehydration that caused LONG. Continue gentle hydration. Will consult PT. LONG: Cr is 2.0<- 2.52. Continue avoid nephrotoxins and monitor renal function. Hold aldactone and losartan. Stop IVF. Nephrology is following Hyponatremia: Likely due to hypovolemia. Will continue gentle hydration and trend Na level. Will consult Nephrology. NSTEMI / History of coronary artery disease: Likely due to LONG. Troponin is 829.9 -> 655.7-> 531. Will continue aspirin, statin and coreg. Discontinued heparin drip. Consulted Cardiology. Elevated BNP: [place] [address]. Will f/u Echo. Continue lasix 40mg po daily, strict I/O and daily weight. DM type II: Continue accuchek, SSI and ADA diet. Hold metformin. Chronic anemia: Hgb is 8<- 9.1. Monitor H/H. Transfuse if hemoglobin is less than 8. DVT ppx: On heparin drip Code: full code
[2023-11-07] MEDS: FUROSEMIDE 40 MG TABLET PO SCH (12:16)
--- NOTE | 2023-11-07 17:11 | P.PN ---
Nephrology note (S) Pt well known to me as a clinic CKD pt, pt has had admissions this spring and was last seen in August at which time she was doing and tolerating meds. Pt had some impaired PO intake and hypotension prior to admission. She had some CP and weakness prior to coming in possibly but denies CP currently. Some chronic intermittent dyspnea. Has been on heparin gtt for NSTEMI. Case discussed with daughter at bedside in detail and with Dr. Higuera and primary team. (O) vitals reviewed in the EMR General: In no apparent distress, Cooperative HEENT: Atraumatic, Normocephalic, Other (Legally blind), NC Neck: Supple Respiratory: Normal air movement, Other (No rales) Cardiovascular: No edema, Regular rate/rhythm Gastrointestinal: Soft and benign, Non-distended, No tenderness, louis present Musculoskeletal: No contractures, No tenderness, No warmth Integumentary: No tenderness/swelling Neurological: Other (Awake, responds appropriately, moves all ext, symmetric strength, did not observe tremors Conclusions/Impression: A/P) 1. Stage II LONG (recurrent) on underlying CKD Stage III unspecified with baseline Cr levels of 1.1-1.5 mg/dl with LONG setting of relative BP lowering, concurrent ARB use +/- Type 1 CRS, and other. 2. No labs done today so ordered bmp, renal function has quickly recovered in the past when elevated above baseline. 3. NSTEMI, hx of complex CAD without reports of angina as OP. Notable troponin leak but levels did downward trend, no current CP, recent nuclear stress test last mo did not report any large defects. EF largely preserved then and on TTE earlier this year. May benefit from another ischemia heart disease eval given her existing disease, uncontrolled DM and other but agree with needing to optimize her condition first and to explore this as OP if pt/family agreeable 4. Chronic HTN with some recurrent relative hypotension episodes this year. Will keep off low dose ARB 5. Chronic diastolic dysfunction, secondary pulm HTN -stop gentle NS IVF, ok to restart Lasix, monitor I/Os as intake variable. Will wait on low dose Spironolactone resumption until renal function recovers to baseline and BP holding 7. IDDM with hyperglycemia -elevated A1c in recent past, chronic difficult to control DM, Insulin management per IM Jose David Teague MD, ANASTASIIA
[2023-11-08 06:18] LABS: MPV 8.7 fL (7.6-11.3); Platelets 166 thou/uL (152-406)
[2023-11-08 06:30] LABS: Anion Gap 8.9 mEq/L (5.0-15.0); Magnesium 2.1 mg/dL (1.6-2.4); Potassium 4.9 mEq/L (3.5-5.1)
--- NOTE | 2023-11-08 07:47 | P.PN ---
Date of Service: 11/08/23 Subjective Date of Service: 11/07/23 Chief Complaint: Generalized weakness Admitted for an NSTEMI, nephrology, cardiology following Type II PR, Review of Systems 10 point system review of negative unless listed in HPI Physical Examination - Vital Signs Reviewed - Physical Exam General: Alert, In no apparent distress, Oriented x3, Obese HEENT: Atraumatic, Normocephalic, PERRLA Neck: Supple, 2+ carotid pulse no bruit, JVD not distended Respiratory: Clear to auscultation bilaterally, Normal air movement Cardiovascular: No edema, Normal pulses, Regular rate/rhythm, Normal S1 S2 Capillary refill: <2 Seconds Gastrointestinal: Normal bowel sounds, Soft and benign, Non-distended Musculoskeletal: No clubbing, No swelling, No contractures Integumentary: No rashes, No breakdown, No significant lesion, No tenderness/swelling Neurological: Normal gait, Normal speech, Normal strength at 5/5 x4 extr, Normal tone Lymphatics: No axilla or inguinal lymphadenopathy Assessment And Plan - Plan Generalized weakness: Dehydration likely due to dehydration that caused LONG. Continue gentle hydration. Will consult PT. LONG: Cr is 2.0<- 2.52. Continue avoid nephrotoxins and monitor renal function. Hold aldactone and losartan. Stop IVF. Nephrology is following Hyponatremia: Likely due to hypovolemia. Will continue gentle hydration and trend Na level. Will consult Nephrology. Type II PR NSTEMI / History of coronary artery disease: Likely due to LONG. Troponin is 829.9 -> 655.7-> 531. Will continue aspirin, statin and coreg. Discontinued heparin drip. Consulted Cardiology. Plavix, aspirin held Elevated BNP: [place] [address]. Will f/u Echo. Continue lasix 40mg po daily, strict I/O and daily weight. DM type II: Continue accuchek, SSI and ADA diet. Hold metformin. Chronic anemia: Hgb is 8<- 9.1. Monitor H/H. Transfuse if hemoglobin is less than 8. DVT ppx: SCDs Code: full code Spent with patient 35 minutes
--- NOTE | 2023-11-08 14:19 | ECHO ---
HEIGHT: 5 ft 2 in WEIGHT: 240 lb 8 oz DATE OF STUDY: 11/08/[address]: José Luis Cano MD 2-DIMENSIONAL: YES M.MODE: YES DOPPLER: YES COLOR FLOW: YES TDS: PORTABLE: YES DEFINITY: BUBBLE STUDY: DIAGNOSIS: RULE OUT CONGESTIVE HEART FAILURE CARDIAC HISTORY: CATHERIZATION: YES SURGERY: NO PROSTHETIC VALVE: NO PACEMAKER: NO MEASUREMENTS (cm) DIASTOLIC (NORMALS) SYSTOLIC (NORMALS) IVSd 1.3 (0.6-1.2) LA Diam 4.3 (1.9-4.0) LVEF 25-30% LVIDd 4.9 (3.5-5.7) LVIDs 4.5 (2.0-3.5) %FS 9% LVPWd 1.3 (0.6-1.2) Ao Diam 2.6 (2.0-3.7) 2 DIMENSIONAL ASSESSMENT: RIGHT ATRIUM: NORMAL LEFT ATRIUM: DILATED RIGHT VENTRICLE: NORMAL LEFT VENTRICLE: MILD DILATED TRICUSPID VALVE: MODERATE TRICUSPID REGURGITATION MITRAL VALVE: MILD MITRAL REGURGITATION PULMONIC VALVE: NORMAL AORTIC VALVE: NORMAL PERICARDIAL EFFUSION: NONE AORTIC ROOT: NORMAL LEFT VENTRICULAR WALL MOTION: SEVERE GLOBAL HYPOKINESIS DOPPLER/COLOR FLOW: GRADE II DIASTOLIC DYSFUNCTION COMMENTS: 1. SEVERE REDUCED LEFT VENTRICULAR SYSTOLIC FUNCTION, EJECTION FRACTION 25-30%, SEVERE GLOBAL HYPOKINESIS 2. GRADE II DIASTOLIC DYSFUNCTION 3. SEVERE PULMONARY HYPERTENSION (RIGHT VENTRICULAR SYSTOLIC PRESSURE GREATER THAN 60 mmHg) 4. MODERATE TRICUSPID REGURGITATION 5. ELEVATED FILLING PRESSURE (RIGHT ATRIAL PRESSURE GREATER THAN 20 mmHg) TECHNOLOGIST: MICHAEL FELDER
[2023-11-08] MEDS: ALBUMIN HUMAN 25% 100 ML IV ONE (16:00)
[2023-11-08] MEDS: FUROSEMIDE 20 MG/ 2ML VIAL IV ONE (16:01)
--- NOTE | 2023-11-08 17:23 | P.PN ---
Subjective Date of Service: 11/08/23 Chief Complaint: Generalized weakness Subjective: No new changes Review of Systems 10-point ROS is otherwise unremarkable Physical Examination - Vital Signs Temperature: 97.1 F Blood Pressure: 106/59 Pulse: 86 Respirations: 20 Pulse Ox (%): 92 - Physical Exam General: Alert, In no apparent distress HEENT: Atraumatic, PERRLA, EOMI Neck: Supple, JVD not distended Respiratory: Diminished, Crackles/rales Cardiovascular: Regular rate/rhythm, Normal S1 S2, Edema Gastrointestinal: Normal bowel sounds, No tenderness Musculoskeletal: No tenderness Integumentary: No rashes Neurological: Normal speech, Normal tone, Normal affect Lymphatics: No axilla or inguinal lymphadenopathy - Studies Medications List Reviewed: Yes Assessment And Plan - Current Problems (Diagnosis) (1) Chronic diastolic heart failure Current Visit: Yes Status: Acute Plan: Echo shows acute combined systolic and diastolic heart failure, elevated filling pressure recommend IV diuresis with Lasix 40 mg IV BID Monitor input and output monitor and correct electrolytes continue to hold aldactone and losartan (2) NSTEMI (non-ST elevated myocardial infarction) Current Visit: Yes Status: Acute Plan: most likely type 2 CA from LONG Troponin down trending continue heparin drip for 48 hours. continue ASA and Plavix. (3) HTN (hypertension) Current Visit: No Status: Chronic Plan: medications are on hold due to soft BP. continue to monitor. Qualifiers: Hypertension type: primary hypertension Qualified Code(s): I10 - Essential (primary) hypertension
--- NOTE | 2023-11-08 17:59 | EKG ---
Test Date: 2023-11-04 Test Time: 15:37:54 Corporate Licensed Broker: EUGENE MEASUREMENT RESULTS: Intervals: Rate: 73 ND: QRSD: 94 QT: 414 QTc: 456 Haugan: P: ND: QRS: -28 T: 150 INTERPRETIVE STATEMENTS: Atrial fibrillation Anterior infarct, age undetermined Marked ST abnormality, possible lateral subendocardial injury Abnormal ECG Compared to ECG 06/30/2023 09:39:31 Myocardial infarct finding now present ST (T wave) deviation now present Electronically Signed On 11-08-23 17:49:57 CDT by Yemi Higuera
--- NOTE | 2023-11-08 20:26 | P.PN ---
Date of Service: 11/08/23 Vital Signs Temp Pulse Resp BP Pulse Ox 97.1 F 86 20 106/59 L 92 11/08/23 17:22 11/08/23 17:22 11/08/23 17:22 11/08/23 17:22 11/08/23 17:22 Medications Acetaminophen (Acetaminophen 500 Mg Tab) 500 mg PO Q4HP PRN PRN Reason: TEMP > 100' F Hydrocodone Bitart/Acetaminophen (Hydrocodone/Apap 7.5/325 Mg Tab) 1 tab PO Q6H PRN PRN Reason: Pain scale 5-7 (Moderate) Last Admin: 11/08/23 18:11 Dose: 1 tab Albuterol Sulfate (Albuterol 2.5 Mg/3 Ml Neb Shannan) 2.5 mg NEB Q6HP PRN PRN Reason: SHORTNESS OF BREATH Aspirin (Aspirin Ec 81 Mg Tab) 81 mg PO DAILY VANDANA Clopidogrel Bisulfate (Clopidogrel 75 Mg Tablet) 75 mg PO BEDTIME VANDANA Last Admin: 11/07/23 21:28 Dose: 75 mg Ferrous Sulfate (Ferrous Sulfate 325 Mg Tab) 325 mg PO DAILY VANDANA Last Admin: 11/08/23 09:41 Dose: 325 mg Folic Acid (Folic Acid 1 Mg Tablet) 1 mg PO DAILY VANDANA Furosemide (Furosemide 40 Mg Tablet) 40 mg PO DAILY VANDANA Last Admin: 11/08/23 09:41 Dose: 40 mg Glucagon (Glucagon 1 Mg/Vial) 1 mg IM 1X PRN PRN Reason: HYPOGLYCEMIA Dextrose (Dextrose 10% Water Iv Soln.) 125 mls @ 0 mls/hr IV PRN PRN; Protocol PRN Reason: HYPOGLYCEMIA Insulin Human Regular (Insulin Regular (Human) 100 Unit/Ml) 0 unit SQ ACHS [facility]; Protocol Last Admin: 11/08/23 18:07 Dose: 4 unit Ondansetron HCl (Ondansetron 4 Mg/2 Ml Vial) 4 mg IV Q6HP PRN PRN Reason: NAUSEA / VOMITING Pantoprazole Sodium (Pantoprazole 40mg Tablet) 40 mg PO DAILYAC [facility]; Protocol Last Admin: 11/08/23 06:18 Dose: 40 mg Pregabalin (Pregabalin 75 Mg Cap) 75 mg PO DAILY VANDANA Rosuvastatin Calcium (Rosuvastatin 10 Mg Tab) 40 mg PO BEDTIME VANDANA Last Admin: 11/07/23 21:27 Dose: 40 mg Sertraline HCl (Sertraline Hcl 100 Mg Tab) 100 mg PO DAILY VANDANA Last Admin: 11/08/23 09:41 Dose: 100 mg Microbiology Results 11/04/23 15:10 Blood - Blood Aerobic Blood Culture - Preliminary No growth in 24 hours. 11/04/23 15:10 Blood - Blood Anaerobic Blood Culture - Preliminary No growth in 24 hours. 11/04/23 15:20 Blood - Blood Aerobic Blood Culture - Preliminary No growth in 24 hours. 11/04/23 15:20 Blood - Blood Anaerobic Blood Culture - Preliminary No growth in 24 hours. 11/04/23 15:34 Nasopharnyx Influenza Type A Antigen Screen - Final 11/04/23 15:34 Nasopharnyx Influenza Type B Antigen Screen - Final Assessment/ Plan: Nephrology No dyspnea No chest pain Fatigue and weakness No acute events overnight Vitals, medications, blood work and imaging reviewed in the chart NAD. Obese. MMM. NCAT. Normal Respiratory Effort. S1S2. ND Abd. No C/C. Hip Edema. No rash. AAO. Normal speech. Valle Medium LEFT VENTRICULAR WALL MOTION: SEVERE GLOBAL HYPOKINESIS DOPPLER/COLOR FLOW: GRADE II DIASTOLIC DYSFUNCTION COMMENTS: 1. SEVERE REDUCED LEFT VENTRICULAR SYSTOLIC FUNCTION, EJECTION FRACTION 25-30%, SEVERE GLOBAL HYPOKINESIS 2. GRADE II DIASTOLIC DYSFUNCTION 3. SEVERE PULMONARY HYPERTENSION (RIGHT VENTRICULAR SYSTOLIC PRESSURE GREATER THAN 60 mmHg) 4. MODERATE TRICUSPID REGURGITATION 5. ELEVATED FILLING PRESSURE (RIGHT ATRIAL PRESSURE GREATER THAN 20 mmHg) EXAM DESCRIPTION: CT - Thorax Con - 11/04/2023 5:04 pm CLINICAL HISTORY: SOB COMPARISON: Thorax Wo Con dated 02/06/2022; Chest Angio dated 09/24/2016; Chest For Pe Angio dated 07/25/2016; Chest For Pe Angio dated 11/20/2015 TECHNIQUE: Axial thin cut images of the chest were obtained without IV contrast. Multiplanar reformats were generated and reviewed. All CT scans are performed using dose optimization technique as appropriate and may include automated exposure control or mA/KV adjustment according to patient size. FINDINGS: New 6 mm perifissural nodule along the minor fissure on the right on axial image 31 may represent a perifissural lymph node. Stable 7 mm nodule in the peripheral left lower lobe, axial image 38, likely benign. No other suspicious mass or infiltrate in the lung parenchyma. No pleural thickening or pleural effusion. No pneumothorax. No abnormal mediastinal or hilar masses or lymphadenopathy seen. No significant aortic or pulmonary artery findings. Assessment is limited in the absence of IV contrast. No chest wall mass or abnormal axillary lymphadenopathy. Evaluation of the solid abdominal structures reveals no suspicious findings. IMPRESSION: No acute process within the chest. Benign-appearing pulmonary nodules as above. Stage I LONG likely CRS CKD III -No NSAIDs Hyponatremia -Continue furosemide HTN with CKD/ CHF -Hold antihypertensives at this time Systolic Diastolic CHF, A/C Pulmonary HTN with Moderate TR -Continue furosemide DM II with CKD -RISS Anemia in chronic illness -Monitor H&H -Continue oral iron
--- NOTE | 2023-11-09 07:06 | RAD REPORT ---
EXAM DESCRIPTION: RAD - Chest Single View - 11/09/2023 5:50 am CLINICAL HISTORY: pneumonia COMPARISON: Chest Single View dated 11/04/2023; Chest Single View dated 06/30/2023; Chest Single View dated 04/18/2023; Chest Single View dated 04/17/2022; Thorax Wo Con dated 11/04/2023 FINDINGS: Lines: None. Lungs: Hazy basilar opacities, increased on the right but similar on the left. Pleural: Left costophrenic angles Cardiac: Cardiomegaly. Mediastinum: Within normal limits. Bones: No acute fractures. Other: None IMPRESSION: Hazy basilar opacities that may reflect atelectasis, edema, and/or pneumonia. The findin gs may be accentuated by body habitus and portable technique. Moderate cardiomegaly.
[2023-11-09 07:45] LABS: MPV 8.3 fL (7.6-11.3); Platelets 177 thou/uL (152-406)
[2023-11-09 07:47] LABS: Percent Reticulocyte Count 2.9 % (0.4-2.05); RBC Red Blood Cell Count 2.65 M/uL (3.86-4.86)
[2023-11-09 07:53] LABS: PT Prothrombin Time 16.4 SECONDS (9.4-12.5); PTT, Activated Partial Thromb 29.2 SECONDS (24.3-36.9); Protime INR 1.48
[2023-11-09] MEDS ORDERED: SODIUM CHLORIDE 0.9% 10ML INJ IV PRN (07:59)
[2023-11-09 08:04] LABS: Anion Gap 13.1 mEq/L (5.0-15.0); Potassium 5.1 mEq/L (3.5-5.1)
[2023-11-09 08:39] LABS: HDL Cholesterol 21 mg/dL (40-60); Magnesium 2.2 mg/dL (1.6-2.4)
--- NOTE | 2023-11-09 08:40 | P.PN ---
Date of Service: 11/09/23 Subjective Date of Service: 11/07/23 Chief Complaint: Generalized weakness Admitted for an NSTEMI, nephrology, cardiology following Type II ID, Review of Systems 10 point system review of negative unless listed in HPI Physical Examination - Vital Signs Reviewed - Physical Exam General: Alert, In no apparent distress, Oriented x3, Obese HEENT: Atraumatic, Normocephalic, PERRLA Neck: Supple, 2+ carotid pulse no bruit, JVD not distended Respiratory: Clear to auscultation bilaterally, Normal air movement Cardiovascular: No edema, Normal pulses, Regular rate/rhythm, Normal S1 S2 Capillary refill: <2 Seconds Gastrointestinal: Normal bowel sounds, Soft and benign, Non-distended Musculoskeletal: No clubbing, No swelling, No contractures Integumentary: No rashes, No breakdown, No significant lesion, No tenderness/swelling Neurological: Normal gait, Normal speech, Normal strength at 5/5 x4 extr, Normal tone Lymphatics: No axilla or inguinal lymphadenopathy Assessment And Plan - Plan Generalized weakness: Dehydration likely due to dehydration that caused LONG. Continue gentle hydration. Will consult PT. LONG: Cr is 2.0<- 2.52. Continue avoid nephrotoxins and monitor renal function. Hold aldactone and losartan. Stop IVF. Nephrology is following Hyponatremia: Likely due to hypovolemia. Will continue gentle hydration and trend Na level. Will consult Nephrology. Type II ID NSTEMI / History of coronary artery disease: Likely due to LONG. Troponin is 829.9 -> 655.7-> 531. Will continue aspirin, statin and coreg. Discontinued heparin drip. Consulted Cardiology. Plavix, aspirin held [place]ated [place]NP: [place] [address]. Will f/u Echo. Continue lasix 40mg po daily, strict I/O and daily weight. DM type II: Continue accuchek, SSI and ADA diet. Hold metformin. Chronic anemia: Hgb is 8<- 9.1. Monitor H/H. Transfuse if hemoglobin is less than 8. DVT ppx: SCDs Code: full code Spent with patient 35 minutes
[2023-11-09 08:42] LABS: LDL Cholesterol, Calculated 11 mg/dL (<130); LDL Cholesterol,Calc NonReport 11
[2023-11-09 08:44] LABS: Troponin High Sensitivity 246.5 pg/mL (<58.9)
[2023-11-09] MEDS: PREGABALIN 75 MG CAP PO SCH (08:51)
[2023-11-09] MEDS: PANTOPRAZOLE 40 MG INJ IVP SCH (08:51)
[2023-11-09] MEDS: ASPIRIN EC 81 MG TAB PO SCH (08:51)
[2023-11-09] MEDS: FOLIC ACID 1 MG TABLET PO SCH (08:51)
[2023-11-09] MEDS: BUMETANIDE 1 MG TABLET PO SCH (08:52)
--- NOTE | 2023-11-09 12:39 | P.CNS ---
Date of Consult: 11/09/23 Reason for Consult: Hypertension congestive heart failure Chief Complaint: Generalized weakness History of Present Illness: Is 82 years of age well-known to me admitted with worsening dyspnea found to have non-STEMI has chronic severe pulmonary hypertension combination of primary and secondary and also has underlying chronic renal failure history of coronary artery disease patient is nonverbal Allergies Sulfa (Sulfonamide Antibiotics) Allergy (Intermediate, Verified 04/19/22 12:46) Rash Home Medications: Aspirin [Aspirin EC 81 MG] 81 mg PO DAILY 02/07/22 Carvedilol [Coreg] 25 mg PO BID 02/07/22 Magnesium Oxide [Mag 0X*] 400 mg PO DAILY 02/07/22 Rosuvastatin Calcium 40 mg PO BEDTIME 02/07/22 Clopidogrel Bisulfate [Plavix] 75 mg PO BEDTIME 03/04/22 Folic Acid 1 mg PO DAILY #30 tab 03/05/22 Cholecalciferol (Vitamin D3) [Vitamin D3] 1 tab PO DAILY 03/22/22 Cyanocobalamin/Cobamamide [Vitamin B-12 5,000 Mcg Tab Sl] 1 tab PO DAILY 03/22/22 Ferrous Sulfate [Ferrous Sulfate*] 325 mg PO DAILY 03/22/22 Sertraline [Zoloft*] 100 mg PO DAILY 03/22/22 Spironolactone [Aldactone*] 25 mg PO DAILY 03/22/22 Furosemide 40 mg PO DAILY #30 03/24/22 Fluticasone/Umeclidin/Vilanter [Trelegy Ellipta 100-62.5-25] 2 puff PO PRN 04/19/22 Pregabalin 75 mg PO DAILY 30 Days #30 cap 04/22/23 Losartan Potassium [Cozaar] 25 mg PO BEDTIME 06/30/23 Metformin HCl [Glucophage] 500 mg PO BIDWM 06/30/23 Semaglutide [Ozempic] 1 mg SQ EVERY 7TH DAY 06/30/23 Amlodipine Besylate [Norvasc] 5 mg PO DAILY 11/05/23 Insulin Regular, Human [Humulin R U-500 Kwikpen] 40 units SQ ACHS 11/05/23 Pantoprazole [Protonix Tab] 40 mg PO DAILY 11/05/23 - Past Medical/Surgical History Diabetic: Yes -: Glaucoma -: CHF, diastolic dysfunction -: HTN -: GERD -: DM II with PolyNeuropathy -: CKD III (Dr. Alvarez) -: CAD -: Fatty liver with Morbid Obesity -: CAD -: COPD -: History of Colon CA -: History of severe pulmonary hypertension -: Cholecystectomy -: Colon resection -: Appendectomy -: Hysterectomy -: Right Rotator Cuff Repair -: Colectomy Psychosocial/ Personal History: She lives at home. Her daughter helps her at home. - Family History Mother Medical History: Cancer Notes: colon Brother Medical History: Hypertension Sister Medical History: Heart disease, Hypertension, Lung disease, Cancer - Social History Smoking Status: Never smoker Alcohol use: No CD- Drugs: No Caffeine use: No Place of Residence: Home Review of Systems is unable to be obtained Physical Examination Temp Pulse Resp BP Pulse Ox 98.8 F 82 17 124/61 97 11/09/23 08:00 11/09/23 08:52 11/09/23 08:00 11/09/23 08:52 11/09/23 08:00 General: Alert, Unresponsive Respiratory: Clear to auscultation bilaterally Cardiovascular: No edema, Normal S1 S2 Gastrointestinal: Normal bowel sounds, Soft and benign Musculoskeletal: No clubbing, No swelling - Problems (1) Pulmonary hypertension Current Visit: Yes Status: Acute Plan: Patient is 82 years of age admitted with generalized weakness acute on chronic diastolic heart failure elevated troponins non-STEMI pulmonary hypertension which is chronic but I suspect is secondary to the diastolic heart failure and now systolic ventricular dysfunction also has chronic renal failure patient is currently on diuretics chest x-ray shows cardiomegaly. BNP with diuretics for now sildenafil has been as it may lower her blood pressure even more initially satisfactory will evaluate for treatment as an outpatient and shows signs of cor pulmonale worsening peripheral edema adequate diuretic therapy and has had multiple cardiac caths recent stress test does not show any evidence of stress- induced ischemia
--- NOTE | 2023-11-09 13:08 | P.DS ---
Admission Date: 11/04/23 Discharge Date: 11/10/23 Disposition: DC HOME/HOME HEALTH CARE Reason for Admission: Generalized weakness Brief History of Present Illness: 82-year-old woman with a history of coronary artery disease, congestive heart failure on Lasix therapy, diabetes mellitus type 2 and COPD who was brought to the emergency department due to generalized weakness, poor oral intake and lethargy. Daughter by her bedside reported patient has had poor oral intake, has been sleeping most of the day. Her recorded blood pressure was low with systolic in the 80s today which prompted the ED visit. Patient was complaining of shortness of breath treatment. She denied chest pain. Workup in the emergency department showed elevated troponin. Chest x-ray did not show any acute infiltrate or vascular congestion. It reported basilar atelectasis. Initial troponin elevated, EKG demonstrated atrial fibrillation, no ischemic changes. Daughter reports patient had a good bowel movement yesterday. Daughter also believes patient's urine output has decreased since yesterday. Blood work showed elevated creatinine indicating LONG. Patient is hospitalized for further management. - Physical Exam General: In no apparent distress, Other (Awake and interactive) HEENT: Normocephalic, Sclerae nonicteric Neck: Supple, JVD not distended Respiratory: Clear to auscultation bilaterally, Normal air movement Cardiovascular: No edema, Normal S1 S2, Irregular heart rate/rhythm Capillary refill: <2 Seconds Gastrointestinal: Normal bowel sounds, Soft and benign, Non-distended, No tenderness Musculoskeletal: No swelling, No tenderness Integumentary: No rashes, No cyanosis Neurological: Normal speech, Normal strength at 5/5 x4 extr, Cranial nerves 3-12 intact Lymphatics: No axilla or inguinal lymphadenopathy Hospital Course: 82-year-old woman with a history of coronary artery disease, congestive heart failure on Lasix therapy, diabetes mellitus type 2 and COPD who was brought to the emergency department due to generalized weakness, poor oral intake and lethargy. He was noted to have acute heart failure, elevated troponin, she was treated with diuretics, evaluated by cardiology, elevated troponin likely ID type II, treated for a heparin drip for 48 hours, plan to continue, discharged home on aspirin and Plavix. She was evaluated by physical therapy for weakness, she is tolerating diet, plan to discharge home with home health with PT OT and nursing,. Assessment Heart failure with reduced ejection fraction NSTEMI type [id number] with cardiology after discharge CKD stage [id number] with nephrology after discharge Continue home medicines as previously prescribed GOAL: Clear understanding of disease process INSTRUCTIONS: Physician Discharge Instructions: -Follow-up with cardiology in 1 to 2 weeks -Follow-up with PCP in 1 to 2 weeks -Please call Dr. Hicks at [phone] if any questions regarding hospital stay -Please call nursing station at [phone] if any nursing or medication questions -Return to the emergency room if symptoms worsen Diet: ADA, low sodium Activity: Fall precautions Vital Signs/Physical Exam: Temp Pulse Resp BP Pulse Ox 98.5 F 81 17 117/69 98 11/09/23 12:00 11/09/23 12:00 11/09/23 13:00 11/09/23 12:00 11/09/23 13:00 Laboratory Data at Discharge: WBC 8.10 thou/uL (4.3-10.9) 11/06/23 20:30 Hgb 8.0 g/dL (12.0-15.0) L 11/06/23 20:30 Hct 24.5 % (36.0-45.0) L 11/06/23 20:30 Plt Count 177 thou/uL (152-406) 11/09/23 07:35 PT 16.4 SECONDS (9.4-12.5) H 11/09/23 07:35 INR 1.48 11/09/23 07:35 APTT 29.2 SECONDS (24.3-36.9) 11/09/23 07:35 Sodium 131 mEq/L (136-145) L 11/09/23 07:35 Potassium 5.1 mEq/L (3.5-5.1) 11/09/23 07:35 BUN 49 mg/dL (7-18) H 11/09/23 07:35 Creatinine 2.20 mg/dL (0.55-1.02) H 11/09/23 07:35 Glucose 238 mg/dL (74-106) H 11/09/23 07:35 Phosphorus 3.0 mg/dL (2.5-4.9) 11/08/23 06:05 Magnesium 2.2 mg/dL (1.6-2.4) 11/09/23 07:35 Total Bilirubin 0.3 mg/dL (0.2-1.0) 11/05/23 08:51 AST 15 U/L (15-37) 11/05/23 08:51 ALT 20 U/L (13-56) 11/05/23 08:51 Alkaline Phosphatase 103 U/L (45-117) 11/05/23 08:51 Triglycerides 89 mg/dL (<150) 11/09/23 07:35 Cholesterol < 50 mg/dL (<200) 11/09/23 07:35 HDL Cholesterol 21 mg/dL (40-60) L 11/09/23 07:35 Cholesterol/HDL Ratio 2.38 11/09/23 07:35 Home Medications: Aspirin [Aspirin EC 81 MG] 81 mg PO DAILY 02/07/22 Carvedilol [Coreg] 25 mg PO BID 02/07/22 Magnesium Oxide [Mag 0X*] 400 mg PO DAILY 02/07/22 Rosuvastatin Calcium 40 mg PO BEDTIME 02/07/22 Clopidogrel Bisulfate [Plavix] 75 mg PO BEDTIME 03/04/22 Folic Acid 1 mg PO DAILY #30 tab 03/05/22 Cholecalciferol (Vitamin D3) [Vitamin D3] 1 tab PO DAILY 03/22/22 Cyanocobalamin/Cobamamide [Vitamin B-12 5,000 Mcg Tab Sl] 1 tab PO DAILY 03/22/22 Ferrous Sulfate [Ferrous Sulfate*] 325 mg PO DAILY 03/22/22 Sertraline [Zoloft*] 100 mg PO DAILY 03/22/22 Spironolactone [Aldactone*] 25 mg PO DAILY 03/22/22 Furosemide 40 mg PO DAILY #30 03/24/22 Fluticasone/Umeclidin/Vilanter [Trelegy Ellipta 100-62.5-25] 2 puff PO PRN 04/19/22 Pregabalin 75 mg PO DAILY 30 Days #30 cap 04/22/23 Losartan Potassium [Cozaar] 25 mg PO BEDTIME 06/30/23 Metformin HCl [Glucophage*] 500 mg PO BIDWM 06/30/23 Semaglutide [Ozempic] 1 mg SQ EVERY 7TH DAY 06/30/23 Amlodipine Besylate [Norvasc] 5 mg PO DAILY 11/05/23 Insulin Regular, Human [Humulin R U-500 Kwikpen] 40 units SQ ACHS 11/05/23 Pantoprazole [Protonix Tab*] 40 mg PO DAILY 11/05/23 Physician Discharge Instructions: 82-year-old woman with a history of coronary artery disease, congestive heart failure on Lasix therapy, diabetes mellitus type 2 and COPD who was brought to the emergency department due to generalized weakness, poor oral intake and lethargy. He was noted to have acute heart failure, elevated troponin, she was treated with diuretics, evaluated by cardiology, elevated troponin likely ID type II, treated for a heparin drip for 48 hours, plan to continue, discharged home on aspirin and Plavix. Family decided to leave AGAINST MEDICAL ADVICE as sydni jackson were tired of waiting for transfer to get through to [facility]. Assessment Heart failure with reduced ejection fraction NSTEMI type [id number] with cardiology after discharge CKD stage [id number] with nephrology after discharge Continue home medicines as previously prescribed GOAL: Clear understanding of disease process INSTRUCTIONS: Physician Discharge Instructions: -Follow-up with cardiology in 1 to 2 weeks -Follow-up with PCP in 1 to 2 weeks -Please call Dr. Hicks at [phone] if any questions regarding hospital stay -Please call nursing station at [phone] if any nursing or medication questions -Return to the emergency room if symptoms worsen Diet: ADA, low sodium Activity: Fall precautions Diet: AHA Activity: Fall precautions Followup: Bird Alvarez DO [ACTIVE - CAN ADMIT] - Yemi Higuera MD [ACTIVE - CAN ADMIT] - Nelda Ford MD [Primary Care Provider] - Time spent managing pt's care (in minutes): 55
--- NOTE | 2023-11-09 17:39 | P.PN ---
Date of Service: 11/09/23 Vital Signs Temp Pulse Resp BP Pulse Ox 97.2 F 82 17 100/54 L 96 11/09/23 16:00 11/09/23 16:00 11/09/23 16:00 11/09/23 16:00 11/09/23 16:00 Medications Acetaminophen (Acetaminophen 500 Mg Tab) 500 mg PO Q4HP PRN PRN Reason: TEMP > 100' F Hydrocodone Bitart/Acetaminophen (Hydrocodone/Apap 7.5/325 Mg Tab) 1 tab PO Q6H PRN PRN Reason: Pain scale 5-7 (Moderate) Last Admin: 11/09/23 13:00 Dose: 1 tab Albuterol Sulfate (Albuterol 2.5 Mg/3 Ml Neb Shannan) 2.5 mg NEB Q6HP PRN PRN Reason: SHORTNESS OF BREATH Aspirin (Aspirin Ec 81 Mg Tab) 81 mg PO DAILY [facility] Last Admin: 11/09/23 08:51 Dose: 81 mg Bumetanide (Bumetanide 1 Mg Tablet) 1 mg PO BID* [facility] Last Admin: 11/09/23 13:01 Dose: 1 mg Clopidogrel Bisulfate (Clopidogrel 75 Mg Tablet) 75 mg PO BEDTIME [facility] Last Admin: 11/08/23 21:07 Dose: 75 mg Ferrous Sulfate (Ferrous Sulfate 325 Mg Tab) 325 mg PO DAILY [facility] Last Admin: 11/09/23 08:52 Dose: 325 mg Folic Acid (Folic Acid 1 Mg Tablet) 1 mg PO DAILY [facility] Last Admin: 11/09/23 08:51 Dose: 1 mg Glucagon (Glucagon 1 Mg/Vial) 1 mg IM 1X PRN PRN Reason: HYPOGLYCEMIA Dextrose (Dextrose 10% Water Iv Soln.) 125 mls @ 0 mls/hr IV PRN PRN; Protocol PRN Reason: HYPOGLYCEMIA Insulin Human Regular (Insulin Regular (Human) 100 Unit/Ml) 0 unit SQ ACHS [facility]; Protocol Last Admin: 11/09/23 17:28 Dose: 9 unit Ondansetron HCl (Ondansetron 4 Mg/2 Ml Vial) 4 mg IV Q6HP PRN PRN Reason: NAUSEA / VOMITING Pantoprazole Sodium (Pantoprazole 40 Mg Inj) 40 mg IVP Q12HR [facility]; Protocol Last Admin: 11/09/23 08:51 Dose: 40 mg Pregabalin (Pregabalin 75 Mg Cap) 75 mg PO DAILY [facility] Last Admin: 11/09/23 08:51 Dose: 75 mg Rosuvastatin Calcium (Rosuvastatin 10 Mg Tab) 40 mg PO BEDTIME [facility] Last Admin: 11/08/23 21:07 Dose: 40 mg Sertraline HCl (Sertraline Hcl 100 Mg Tab) 100 mg PO DAILY [facility] Last Admin: 11/09/23 08:51 Dose: 100 mg Sodium Chloride (Sodium Chloride 0.9% 10ml Inj) 10 ml IV UD PRN PRN Reason: Diluant Microbiology Results 11/04/23 15:10 Blood - Blood Aerobic Blood Culture - Final No growth in 5 days. 11/04/23 15:10 Blood - Blood Anaerobic Blood Culture - Final No growth in 5 days. 11/04/23 15:20 Blood - Blood Aerobic Blood Culture - Final No growth in 5 days. 11/04/23 15:20 Blood - Blood Anaerobic Blood Culture - Final No growth in 5 days. 11/04/23 15:34 Nasopharnyx Influenza Type A Antigen Screen - Final 11/04/23 15:34 Nasopharnyx Influenza Type B Antigen Screen - Final Assessment/ Plan: Nephrology No dyspnea No chest pain Fatigue, malaise and weakness No acute events overnight Vitals, medications, blood work and imaging reviewed in the chart NAD. Obese. MMM. NCAT. Normal Respiratory Effort. S1S2. ND Abd. No C/C. Hip Edema. No rash. AAO. Normal speech. Valle Medium LEFT VENTRICULAR WALL MOTION: SEVERE GLOBAL HYPOKINESIS DOPPLER/COLOR FLOW: GRADE II DIASTOLIC DYSFUNCTION COMMENTS: 1. SEVERE REDUCED LEFT VENTRICULAR SYSTOLIC FUNCTION, EJECTION FRACTION 25-30%, SEVERE GLOBAL HYPOKINESIS 2. GRADE II DIASTOLIC DYSFUNCTION 3. SEVERE PULMONARY HYPERTENSION (RIGHT VENTRICULAR SYSTOLIC PRESSURE GREATER THAN 60 mmHg) 4. MODERATE TRICUSPID REGURGITATION 5. ELEVATED FILLING PRESSURE (RIGHT ATRIAL PRESSURE GREATER THAN 20 mmHg) EXAM DESCRIPTION: CT - Thorax Wo Con - 11/04/2023 5:04 pm CLINICAL HISTORY: SOB COMPARISON: Thorax Wo Con dated 02/06/2022; Chest Angio dated 09/24/2016; Chest For Pe Angio dated 07/25/2016; Chest For Pe Angio dated 11/20/2015 TECHNIQUE: Axial thin cut images of the chest were obtained without IV contrast. Multiplanar reformats were generated and reviewed. All CT scans are performed using dose optimization technique as appropriate and may include automated exposure control or mA/KV adjustment according to patient size. FINDINGS: New 6 mm perifissural nodule along the minor fissure on the right on axial image 31 may represent a perifissural lymph node. Stable 7 mm nodule in the peripheral left lower lobe, axial image 38, likely benign. No other suspicious mass or infiltrate in the lung parenchyma. No pleural thickening or pleural effusion. No pneumothorax. No abnormal mediastinal or hilar masses or lymphadenopathy seen. No significant aortic or pulmonary artery findings. Assessment is limited in the absence of IV contrast. No chest wall mass or abnormal axillary lymphadenopathy. Evaluation of the solid abdominal structures reveals no suspicious findings. IMPRESSION: No acute process within the chest. Benign-appearing pulmonary nodules as above. Stage I LONG likely CRS complicated by hypotension CKD III -No NSAIDs -Continue diuresis Hyponatremia -Continue Bumex HTN with CKD/ CHF complicated by hypotension -Hold antihypertensives at this time -Midodrine prn Systolic Diastolic CHF, A/C Pulmonary HTN with Moderate TR -Change furosemide to bumetanide DM II with CKD -RISS Anemia in chronic illness -Monitor H&H -Continue oral iron -Retacrit X1 -PRBC prn Hospitalist and Pulmonary notes reviewed
[2023-11-09] MEDS: EPOETIN ALFA-EPBX 10,000 UNIT/ML VIAL SQ ONE (18:39)
--- NOTE | 2023-11-09 19:39 | CON ---
Date of Consultation: 11/09/2023 Reason For Consultation: Anemia with hemoglobin of 8.0, chronic and history of chronic anemia with n on-STEMI, myocardial infarction. History Of Present Illness: The patient is an 82-year-old white female with history of diabetes, hyp ertension, coronary artery disease, status post UT, pneumonia, colon cancer, COPD, and blindness. Th e patient presented to hospital with generalized weakness, found to have a hemoglobin down at 8 with a history of chronic anemia. Of note, in hospital, the patient has had elevated troponin I, though s he does have elevated creatinine of approximately 2.2. EKG revealed atrial fibrillation without isch emic changes as per chart review; however, the troponin I is elevated in the range of 300 to maybe 60 0. Past Medical History: Significant for diabetes, hypertension, coronary artery disease, status post m yocardial infarction, pneumonia, COPD, blindness, congestive heart failure, ADHD, glaucoma, chronic k idney disease, laparoscopic cholecystectomy, colon resection, appendectomy, hysterectomy, right rotat or cuff surgery. Medications: Include aspirin, Coreg, magnesium, rosuvastatin, Desyrel, Plavix, folic acid, vitamin D 3, vitamin B12, iron sulfate, Zoloft, Aldactone, Lasix, Trelegy inhaler, pregabalin, Cozaar, metformi n, Ozempic. Allergies: SULFA. Social History: She is a , 3 biologic children and has adopted 3 other children she reports. N o tobacco, alcohol. Family History: Father in a tree fell in accident. Mother of colon cancer. Physical Examination: Vital Signs: The patient has a temperature of 98.8 degrees Fahrenheit, pulse 82, respirations 17, bl ood pressure 124/61, O2 sat 97%. She is 5 feet 2 inches, 240 pounds. BMI of 44 kg/m sq. General: She is a well-nourished, well-developed obese female lying in bed with obvious blindness of the right eye. HEENT: Normocephalic, atraumatic. Anicteric. Pupils equal, round, and reactive to light. However, she did have blindness obviously in the right eye. Unable to move adequately. No response to light . Normocephalic with trauma that appears to the right eye or the degeneration of eye due to her blindne ss. Neck: Supple. No masses. Respirations: Clear to auscultation bilaterally. Cardiac: Regular rate and rhythm. Gastrointestinal: Positive bowel sounds. Soft, nontender, nondistended. No hepatosplenomegaly. Extremities: No clubbing, cyanosis, or edema, probably trace lower extremity edema. Neuro: At times, alert and oriented x2. Laboratory Data: The patient has white count of 8.1 from the 18th, hemoglobin of 8.0 from the 18th, hematocrit 25, MCV of 93, platelet count 181. Got a PT of 16.4, INR of 1.48, PTT of 29.2. Sodium 13 1, potassium 5.1, chloride 104, bicarb 19, BUN of 49, creatinine of 2.2, glucose 238, calcium 9.1. M agnesium 2.2. Iron 55. Troponin I elevated at 246. Previous to that, the patient had a troponin I of 880.9. Also, with C-reactive protein of 27.3. Cholesterol less than 50, LDL of 11, HDL 21. Meghna min B12 greater than 2000. Triglycerides 89. Cortisol 14.24. UA: Trace yeast, 25 leukocyte estera se, few crystals, otherwise negative. Serology: COVID tested negative. Chest CT revealed no acute process. Benign-appearing pulmonary nodules were seen. Impression: 1.Anemia. Hemoglobin 8.0 with a history of chronic anemia. We will need to monitor, especially in light of possible [id number] myocardial infarction. 2.Wec-VS-uzqbudrev myocardial infarction. Elevated cardiac enzymes. The patient does have renal in sufficiency with a creatinine of approximately 2.2. The patient with known coronary artery disease t hat could have ongoing myocardial issue with ischemia. Therefore, await Cardiology evaluation. 3.History of diabetes, hypertension, coronary artery disease, status post myocardial infarction, con gestive heart failure, pneumonia, chronic obstructive pulmonary disease, colon cancer, attention defi cit hyperactivity disorder, blindness, glaucoma, chronic kidney disease, laparoscopic cholecystectomy , colon surgery, appendectomy, hysterectomy, and right rotator cuff surgery. Recommendations: 1.Await cardiology workup evaluation therapy with elevated troponin I at approximately 800 level bef ore any endoscopic procedures attempted. 2.Follow serial H and H, and transfuse p.r.n. VISHAL/GEORGETTE Voice ID: [id number] Report ID: [id number]
[2023-11-10 00:21] LABS: Absolute Eosinophils 0.2 K/uL (0-0.5); Absolute Lymphocytes (CBC) 0.9 K/uL (0.7-4.9); Absolute Monocytes 1.1 K/uL (0.1-1.3); Basophils % 0.3 % (0-1.3); Eosinophils % 3.1 % (0-4.4); Hematocrit 23.9 % (36.0-45.0); Hemoglobin 7.8 g/dL (12.0-15.0); Lymphocytes % 12.1 % (15.3-44.8); MCH 30.5 pg (27.0-35.0); MCHC 32.6 g/dL (32.0-36.0); MCV 93.6 fL (80-100); MPV 8.6 fL (7.6-11.3); Monocytes % 15.2 % (3.3-12.3); Neutrophils % 69.3 % (41.7-73.7); Nucleated Red Blood Cells % 0.2 % (0-0); Platelets 170 thou/uL (152-406); RBC Red Blood Cell Count 2.56 M/uL (3.86-4.86); Red Cell Distribution Width 14.9 % (12.1-15.2)
[2023-11-10 07:26] LABS: Absolute Eosinophils 0.3 K/uL (0-0.5); Absolute Lymphocytes (CBC) 0.9 K/uL (0.7-4.9); Absolute Monocytes 1.1 K/uL (0.1-1.3); Absolute Neutrophil 4.6 K/uL (1.8-8.0); Basophils % 0.4 % (0-1.3); Eosinophils % 4.1 % (0-4.4); Hematocrit 24.7 % (36.0-45.0); Lymphocytes % 13.2 % (15.3-44.8); MCH 30.7 pg (27.0-35.0); MCHC 32.6 g/dL (32.0-36.0); MCV 94.2 fL (80-100); MPV 8.6 fL (7.6-11.3); Neutrophils % 66.3 % (41.7-73.7); Nucleated Red Blood Cells % 0.2 % (0-0); Platelets 162 thou/uL (152-406); RBC Red Blood Cell Count 2.62 M/uL (3.86-4.86); Red Cell Distribution Width 14.8 % (12.1-15.2)
[2023-11-10 07:27] LABS: Anion Gap 10.9 mEq/L (5.0-15.0); Potassium 4.9 mEq/L (3.5-5.1)
[2023-11-10 09:12] VITALS: O2SAT 98
--- NOTE | 2023-11-10 09:36 | P.PN ---
Date of Service: 11/10/23 Vital Signs Temp Pulse Resp BP Pulse Ox 97.7 F 78 15 135/64 99 11/10/23 04:00 11/10/23 04:00 11/10/23 04:00 11/10/23 04:00 11/10/23 04:00 Medications Acetaminophen (Acetaminophen 500 Mg Tab) 500 mg PO Q4HP PRN PRN Reason: TEMP > 100' F Hydrocodone Bitart/Acetaminophen (Hydrocodone/Apap 7.5/325 Mg Tab) 1 tab PO Q6H PRN PRN Reason: Pain scale 5-7 (Moderate) Last Admin: 11/09/23 13:00 Dose: 1 tab Albuterol Sulfate (Albuterol 2.5 Mg/3 Ml Neb Shannan) 2.5 mg NEB Q6HP PRN PRN Reason: SHORTNESS OF BREATH Aspirin (Aspirin Ec 81 Mg Tab) 81 mg PO DAILY [facility] Last Admin: 11/09/23 08:51 Dose: 81 mg Bumetanide (Bumetanide 1 Mg Tablet) 1 mg PO BID* [facility] Last Admin: 11/09/23 13:01 Dose: 1 mg Clopidogrel Bisulfate (Clopidogrel 75 Mg Tablet) 75 mg PO BEDTIME [facility] Last Admin: 11/09/23 21:44 Dose: 75 mg Ferrous Sulfate (Ferrous Sulfate 325 Mg Tab) 325 mg PO DAILY [facility] Last Admin: 11/09/23 08:52 Dose: 325 mg Folic Acid (Folic Acid 1 Mg Tablet) 1 mg PO DAILY [facility] Last Admin: 11/09/23 08:51 Dose: 1 mg Glucagon (Glucagon 1 Mg/Vial) 1 mg IM 1X PRN PRN Reason: HYPOGLYCEMIA Dextrose (Dextrose 10% Water Iv Soln.) 125 mls @ 0 mls/hr IV PRN PRN; Protocol PRN Reason: HYPOGLYCEMIA Insulin Human Regular (Insulin Regular (Human) 100 Unit/Ml) 0 unit SQ ACHS [facility]; Protocol Last Admin: 11/09/23 21:44 Dose: 7 unit Ondansetron HCl (Ondansetron 4 Mg/2 Ml Vial) 4 mg IV Q6HP PRN PRN Reason: NAUSEA / VOMITING Pantoprazole Sodium (Pantoprazole 40 Mg Inj) 40 mg IVP Q12HR [facility]; Protocol Last Admin: 11/09/23 21:44 Dose: 40 mg Pregabalin (Pregabalin 75 Mg Cap) 75 mg PO DAILY [facility] Last Admin: 11/09/23 08:51 Dose: 75 mg Rosuvastatin Calcium (Rosuvastatin 10 Mg Tab) 40 mg PO BEDTIME [facility] Last Admin: 11/09/23 21:44 Dose: 40 mg Sertraline HCl (Sertraline Hcl 100 Mg Tab) 100 mg PO DAILY [facility] Last Admin: 11/09/23 08:51 Dose: 100 mg Sodium Chloride (Sodium Chloride 0.9% 10ml Inj) 10 ml IV UD PRN PRN Reason: Diluant Microbiology Results 11/04/23 15:10 Blood - Blood Aerobic Blood Culture - Final No growth in 5 days. 11/04/23 15:10 Blood - Blood Anaerobic Blood Culture - Final No growth in 5 days. 11/04/23 15:20 Blood - Blood Aerobic Blood Culture - Final No growth in 5 days. 11/04/23 15:20 Blood - Blood Anaerobic Blood Culture - Final No growth in 5 days. 11/04/23 15:34 Nasopharnyx Influenza Type A Antigen Screen - Final 11/04/23 15:34 Nasopharnyx Influenza Type B Antigen Screen - Final Assessment/ Plan: Nephrology No dyspnea No chest pain Fatigue and weakness No acute events overnight Vitals, medications, blood work and imaging reviewed in the chart NAD. Obese. MMM. NCAT. Normal Respiratory Effort. S1S2. ND Abd. No C/C. Hip Edema. No rash. AAO. Normal speech. [place] LEFT VENTRICULAR WALL MOTION: SEVERE GLOBAL HYPOKINESIS DOPPLER/COLOR FLOW: GRADE II DIASTOLIC DYSFUNCTION COMMENTS: 1. SEVERE REDUCED LEFT VENTRICULAR SYSTOLIC FUNCTION, EJECTION FRACTION 25-30%, SEVERE GLOBAL HYPOKINESIS 2. GRADE II DIASTOLIC DYSFUNCTION 3. SEVERE PULMONARY HYPERTENSION (RIGHT VENTRICULAR SYSTOLIC PRESSURE GREATER THAN 60 mmHg) 4. MODERATE TRICUSPID REGURGITATION 5. ELEVATED FILLING PRESSURE (RIGHT ATRIAL PRESSURE GREATER THAN 20 mmHg) EXAM DESCRIPTION: CT - Thorax Wo Con - 11/04/2023 5:04 pm CLINICAL HISTORY: SOB COMPARISON: Thorax Wo Con dated 02/06/2022; Chest Angio dated 09/24/2016; Chest For Pe Angio dated 07/25/2016; Chest For Pe Angio dated 11/20/2015 TECHNIQUE: Axial thin cut images of the chest were obtained without IV contrast. Multiplanar reformats were generated and reviewed. All CT scans are performed using dose optimization technique as appropriate and may include automated exposure control or mA/KV adjustment according to patient size. FINDINGS: New 6 mm perifissural nodule along the minor fissure on the right on axial image 31 may represent a perifissural lymph node. Stable 7 mm nodule in the peripheral left lower lobe, axial image 38, likely benign. No other suspicious mass or infiltrate in the lung parenchyma. No pleural thickening or pleural effusion. No pneumothorax. No abnormal mediastinal or hilar masses or lymphadenopathy seen. No significant aortic or pulmonary artery findings. Assessment is limited in the absence of IV contrast. No chest wall mass or abnormal axillary lymphadenopathy. Evaluation of the solid abdominal structures reveals no suspicious findings. IMPRESSION: No acute process within the chest. Benign-appearing pulmonary nodules as above. Stage I LONG likely CRS complicated by hypotension CKD III -No NSAIDs -Continue diuresis Hyponatremia -Continue Bumex HTN with CKD/ CHF complicated by hypotension -Hold antihypertensives at this time -Midodrine prn Systolic Diastolic CHF, A/C Pulmonary HTN with Moderate TR -Continue bumetanide DM II with CKD -RISS Anemia in chronic illness -Monitor H&H -Continue oral iron -Retacrit prn -PRBC prn Hospitalist note reviewed Case reviewed with Dr. Hicks
[2023-11-10 13:11] VITALS: TEMP 97.4
[2023-11-10 14:26] VITALS: BP 119/71
[2023-11-10] MEDS ORDERED: DOCUSATE NA 100 MG CAP PO SCH (21:00)
== END 2023-11-10 14:37 | disposition home health service (06) | DRG 280 ==
LOC: ER 13:41 → ERHOLD 20:17 → 2ND 22:57
PROVIDERS: ADMIT Internal Medicine; ATTEND Hospitalist
DX: I13.0 Hypertensive heart and chronic kidney disease with heart failure and stage 1 through stage 4 chronic kidney disease, or unspecified chronic kidney disease (principal); I50.43 Acute on chronic combined systolic (congestive) and diastolic (congestive) heart failure; I21.A1 Myocardial infarction type 2; N17.0 Acute kidney failure with tubular necrosis; Z68.41 Body mass index [BMI] 40.0-44.9, adult; E87.1 Hypo-osmolality and hyponatremia; N39.0 Urinary tract infection, site not specified; N18.30 Chronic kidney disease, stage 3 unspecified; E11.22 Type 2 diabetes mellitus with diabetic chronic kidney disease; E11.42 Type 2 diabetes mellitus with diabetic polyneuropathy; E11.65 Type 2 diabetes mellitus with hyperglycemia; D63.1 Anemia in chronic kidney disease; E66.01 Morbid (severe) obesity due to excess calories; E86.0 Dehydration; I48.91 Unspecified atrial fibrillation; H54.7 Unspecified visual loss; I07.1 Rheumatic tricuspid insufficiency; I27.20 Pulmonary hypertension, unspecified; J44.9 Chronic obstructive pulmonary disease, unspecified; K21.9 Gastro-esophageal reflux disease without esophagitis; F90.9 Attention-deficit hyperactivity disorder, unspecified type; I25.2 Old myocardial infarction; I25.10 Atherosclerotic heart disease of native coronary artery without angina pectoris; Z88.2 Allergy status to sulfonamides; Z79.4 Long term (current) use of insulin; Z79.82 Long term (current) use of aspirin; Z11.52 Encounter for screening for COVID-19; Z79.84 Long term (current) use of oral hypoglycemic drugs; Z79.02 Long term (current) use of antithrombotics/antiplatelets; Z90.49 Acquired absence of other specified parts of digestive tract; Z79.899 Other long term (current) drug therapy; Z85.038 Personal history of other malignant neoplasm of large intestine; Z90.710 Acquired absence of both cervix and uterus
CPT/HCPCS: 36415; 51702; 70450; 71045; 71250; 80048; 80053; 80061; 80076; 81001; 82533; 82607; 82947; 83540; 83605; 83735; 83880; 84100; 84443; 84484; 85025; 85044; 85049; 85610; 85730; 86140; 87040; 87804; 87811; 93005; 93306; 94760; 94762; 96365; 96366; 96375; 97110; 97116; 97161; 97530; 99285; J1644; J1940; J2470; J7030; P9047; Q5106